=== PATIENT | female | born 1945 | race Caucasian/White ===

== ENCOUNTER 2019-11-02 09:53 | Inpatient (IN) | payer MEDICARE, BC, SELFPAY ==
[2019-11-02] VITALS (14 sets, daily range): BP systolic 100–147; BP diastolic 41–55; PULSE 55–80; RESP 13–20; TEMP 36.6–38.6; O2SAT 95–99; BMI 30.2
--- NOTE | ~2019-11-02 | XR_ITS ---
EXAMINATION: XR chest 2V DATE: 11/02/2019 10:17 INDICATION: Chest pain and shortness of breath TECHNIQUE: frontal and lateral views of the chest were obtained. COMPARISON: Chest radiograph dated 01/06/2019 FINDINGS: Lungs remain clear with no new airspace opacities, pulmonary edema, pleural effusion or pneumothorax. Air-fluid level within a moderate-sized hiatal hernia. Cardiomegaly. Calcified right hilar lymph nod es consistent with old granulomatous disease. Atherosclerotic aorta. Postoperative change of prior di stal left clavicle resection and right rotator cuff repair. IMPRESSION: 1. No acute cardiopulmonary disease. 2. Moderate-sized hiatal hernia. Reviewed, dictated and finalized at location [facility] RN
--- NOTE | ~2019-11-02 | CT_ITS ---
EXAMINATION: CTA chest PE protocol EXAM DATE: 11/02/2019 12:20 INDICATION: Elevated d-dimer. Mid chest pain. TECHNIQUE: Spiral CTA of the chest (pulmonary arteries) was performed with 100 cc Omnipaque 350 intr avenous contrast injection. Images were acquired during the pulmonary arterial phase. Coronal maxi mum intensity projection 3D-reconstructions were created by the technologist on dedicated workstation . Axial, coronal and sagittal reformatted images were reviewed. The dose-length product (DLP) for t his examination was 386.14 mGy-cm. The exposure was tailored according to patient size (auto mA exp osure control), and iterative reconstruction (ASIR) was used as additional dose reduction technique. Comparison is made to prior examination from 08/13/2017. FINDINGS: Pulmonary arteries are well opacified and without intraluminal filling defects. No thora cic aortic dissection. There is moderate amount of right-sided perihilar groundglass airspace diseas e, pneumonia or edema. Clinical correlation. There are no pleural or pericardial effusions. Trache obronchial tree is patent. There is no mediastinal, hilar or axillary lymphadenopathy. There is n o pneumothorax. There is cardiomegaly. There is mild coronary arterial calcification, arterial scl erosis. Fluid density lesion consistent with cyst in the right liver lobe measuring 3 cm unchanged. Cholecystectomy clips. There is moderate sliding gastroesophageal hiatal hernia. There is mild thora cic spondylosis without osteoblastic or osteolytic lesions identified. IMPRESSION: 1. No pulmonary emboli. 2. Moderate amount of right perihilar groundglass density airspace disease likely pneumonia or edema . Clinical correlation. 3. Cardiomegaly. 4. Moderate hiatal hernia. Reviewed, dictated and finalized at location A. [facility] IMPRESSION: 1. No pulmonary emboli. 2. Moderate amount of right perihilar groundglass density airspace disease lik al pneumonia or edema. Clinical correlation. 3. Cardiomegaly. 4. Moderate hiatal hernia.
--- NOTE | 2019-11-02 09:54 | ECG_ITS ---
Measurements Intervals [place] Rate: 76 P: 58 CT: 165 QRS: -26 QRSD: 98 T: 59 QT: 366 QTc: 413 Interpretive Statements SINUS RHYTHM DELAYED PRECORDIAL R/S TRANSITION LEFT VENTRICULAR HYPERTROPHY AND ST-T CHANGE BASELINE ARTIFACT- I, II, III, AVR, AVL, AVF BORDERLINE ECG Electronically Signed On 11-02-2019 10:02:30 PATHOLOGY TECH by Jasvir Steele D.O.
[2019-11-02 10:13] LABS: Basophils Absolute Auto 0.1 K/mm3 (0.0-0.1); Basophils Percent Auto 0.4 % (0.2-1.2); Eosinophils Absolute Auto 0.1 K/mm3 (0-0.3); Eosinophils Percent Auto 0.6 % (0-4.4); Hematocrit 36.4 % (37.0-47.0); Hemoglobin 12.1 g/dL (12.0-15.0); Immature Granulocyte Absolute 0.09 K/mm3 (0.00-0.031); Immature Granulocyte Percent A 0.4 % (0-0.5); Lymphocytes Absolute Auto 4.11 K/mm3 (0.9-3.2); Lymphocytes Percent Auto 19.8 % (18.3-44.2); Mean Corpuscular HGB Conc 33.2 g/dl (32-36); Mean Corpuscular Volume 90.3 fl (80-100); Mean Platelet Volume 9.2 fl (7.4-10.4); Monocytes Absolute Auto 0.6 K/mm3 (0.1-0.6); Monocytes Percent Auto 3.1 % (2.6-8.5); Neutrophils Absolute Auto 15.7 K/mm3 (1.3-6.7); Neutrophils Percent Auto 75.7 % (45.5-73.1); Platelet Count Result 318 k/mm3 (150-375); Red Blood Count 4.03 M/mm3 (4.2-5.4); Red Cell Distribution Width 12.5 % (11.5-14.5); White Blood Count 20.8 K/mm3 (4.5-10.0)
[2019-11-02 10:23] LABS: INR 0.9; Prothrombin Time 12.1 Seconds (11.1-14.7)
[2019-11-02 10:24] LABS: Partial Thromboplastin Time 24.3 SECONDS (22.3-36.8)
--- NOTE | 2019-11-02 10:28 | ED.CHESTPAIN ---
HPI - Chest Pain General Chief Complaint: Chest Pain Stated Complaint: Chest Pain Time Seen by Provider: 11/02/19 10:20 Source: patient and RN notes reviewed Mode of arrival: EMS Limitations: no limitations History of Present Illness HPI narrative: Pt is a 74 y/o female who presents to the ED, via EMS, with c/o 4/10 constant substernal chest pain that began this morning. Pt describes her pain as tight and heavy. Pt denies her pain radiating to another location. She states that her friends noticed the pt looked pale today. Pt took ASA 324 mg [employer]. Pt received NTG by EMS en route to the ED. Pt states the NTG minimally relieved her pain. Pt reports a similar pain when she had to have heart surgery by Dr. Peng in June 2019. Pt also reports nausea and vomiting, but denies a sore throat and a cough. Pt is taking Plavix and ASA 81 mg daily. MD complaint: chest pain Pertinent past history: asthma Onset (ago): hour(s) Timing of current episode: constant Prior episodes: Yes Pain location: substernal Pain radiation: none Severity: mild Pain scale (0-10): 4 Quality: tightness and heaviness Relieving factors: nitroglycerin (minimally) Exacerbating factors: nothing Associated symptoms: nausea and vomiting Treatment prior to arrival: aspirin (324) and nitroglycerin (by EMS) Related Data Home Medications Medication Instructions Recorded Confirmed aspirin 81 mg tablet,delayed 81 mg PO DAILY 07/29/19 11/02/19 release atorvastatin 40 mg tablet 40 mg PO DAILY 07/29/19 11/02/19 clopidogrel 75 mg tablet 75 mg PO DAILY 07/29/19 11/02/19 folic acid 1 mg tablet 1 mg PO TID 07/29/19 11/02/19 lancets #50 each 07/29/19 11/02/19 levothyroxine 88 mcg tablet 88 mcg PO DAILY 07/29/19 11/02/19 meclizine 25 mg tablet 25 mg PO TID PRN 07/29/19 11/02/19 montelukast 10 mg tablet 10 mg PO HS 07/29/19 11/02/19 nitroglycerin 0.4 mg sublingual 0.4 mg SUBLINGUAL Q5M PRN 07/29/19 11/02/19 tablet oxycodone-acetaminophen 10 mg-325 1 tablet PO Q6H PRN 07/29/19 11/02/19 mg tablet ranitidine HCl 75 mg tablet 75 mg PO BID tablet 07/29/19 11/02/19 valsartan 320 mg tablet 320 mg PO DAILY 07/29/19 11/02/19 esomeprazole magnesium 20 mg PO BID 11/02/19 11/02/19 nebivolol [Bystolic] 20 mg PO BID 11/02/19 11/02/19 spironolactone 12.5 mg PO DAILY 11/02/19 11/02/19 Allergies Allergy/AdvReac Type Severity Reaction Status Date / Time No Known Allergies Allergy Unverified 09/29/18 02:28 Review of Systems Review of Systems: All systems reviewed & are unremarkable except as noted in HPI and below ENT: Denies sore throat Cardiovascular: Cardiovascular: Reports chest pain (substernal) Respiratory: Respiratory: Denies cough Gastrointestinal: Gastrointestinal: Reports nausea and Reports vomiting PMFSH Past Medical History Medical History (Updated 11/02/19 @ 18:31 by Yvonne Tejada MD) Anemia Anxiety Asthma Bronchitis Cataracts, bilateral Degenerative joint disease involving multiple joints Depression Diabetic ulcer of right great toe Gallbladder disease GERD without esophagitis Hiatal hernia History of angina HTN (hypertension) Hyperlipidemia Hypothyroid IBS (irritable bowel syndrome) Peripheral neuropathy Rheumatoid arthritis Rhinosinusitis Seasonal allergies Sleep apnea Type 2 diabetes mellitus without complications Ulcer Uterine fibroid Surgical History Surgical History (Updated 11/02/19 @ 11:21 by Natasha Gtz) H/O foot surgery right H/O heart surgery 07/03 History of cardiac catheterization History of hysterectomy Hx of appendectomy Hx of cataract removal with insertion of prosthetic lens Hx of cholecystectomy Hx of endoscopy upper Hx of shoulder surgery bilateral Family History Family History (Updated 08/26/17 @ 10:55 by DOCTOR UNKNOWN) Grandparent Diabetes mellitus Father Acute myocardial infarction Other Family history of cardiovascular disease Family history of malignant neoplasm of brain
[2019-11-02 10:34] LABS: Blood Urea Nitrogen 19 mg/dL (7-17); Calcium 9.3 mg/dL (8.4-10.2); Carbon Dioxide 23 mmol/L (22-30); Chloride 94 mmol/L (98-107); Estimated Glomerular Filt Rate > 60; Glucose 136 mg/dL (65-105); Potassium 4.5 mmol/L (3.4-5.0); Sodium 130 mmol/L (137-145)
[2019-11-02 10:46] LABS: Troponin I < 0.012 ng/mL (0.000-0.034)
[2019-11-02 10:48] LABS: Alanine Aminotransferase 18 U/L (4-35); Albumin Level 4.1 g/dL (3.5-5.1); Alkaline Phosphatase 107 U/L (38-126); Aspartate Amino Transferase 30 U/L (14-36); Bilirubin,Total 1.3 mg/dL (0.2-1.3); Lipase 37 U/L (23-300)
[2019-11-02] MEDS: ONDANSETRON INJ 4 MG/2 ML VIAL IV PUSH (11:16)
[2019-11-02 11:25] LABS: D Dimer 1.96 ug/mL (<0.48)
[2019-11-02 11:59] LABS: Lactic Acid Reflex 1.9 mmol/L (0.7-2.1)
[2019-11-02 13:11] LABS: Add Urine Microscopic? NO; Appearance Urine Clear (Clear); Bilirubin Urine Negative (Negative); Blood Urine Negative (Negative); Color Urine Yellow (Yellow); Glucose Urine UA Negative (Negative); Ketones Urine Negative (Negative); Leukocyte Esterase Ur Negative LEU/UL (Negative); Nitrate Urine Negative (Negative); Protein Urine Negative (Negative); Urobilinogen Urine Negative mg/dL (<2.0)
[2019-11-02 13:14] LABS: Specific Grav Ur 1.044 (1.001-1.035)
[2019-11-02 13:31] LABS: Troponin I 0.379 ng/mL (0.000-0.034)
[2019-11-02] MEDS: ENOXAPARIN 80 MG/0.8 ML SYRINGE 65 MG SUB-Q (14:16)
--- NOTE | 2019-11-02 15:33 | ADMGEN ---
This patient, Aracely Spear, was admitted to IMU Room 213-01. Patient/family oriented to hospital policies and general routines including ID bracelet, bed and alarms, visiting hours, pain management, procedures, bathroom and other care routines, personal items, smoking policy, room service/diet, and visiting hours. Valuables list has been completed. Information on how to activate the Rapid Response Team has been discussed. Patient/Family are encouraged to report perceived risks to care and to ask questions if they do not understand what they are told or what they should do.
[2019-11-02 16:18] LABS: Glucose Point of Care 173 (65-105)
[2019-11-02 17:18] LABS: Troponin I 0.486 ng/mL (0.000-0.034)
--- NOTE | 2019-11-02 18:15 | WPDCN ---
Assessment and Plan Assessment and plan (1) Chest pain: Code(s): R07.9 - Chest pain, unspecified Status: Acute Assessment and Plan: Patient was admitted with chest pain nausea and vomiting. I suspect this is all a viral gastroenteritis rather than ACS. She is feeling well now, and able to eat her dinner. Although the patient has coronary disease and elevated troponins, her coronary arteries were all patent by catheterization in 01/2018, and her EKG does not show any acute ischemic changes. She does have an elevated white count and CT scan suggested she may have a right-sided pneumonia although certainly this is an atypical pneumonia. Temperature this morning was 101.5. Repeat EKG and troponin in the morning and follow. (2) Elevated troponin: Code(s): R79.89 - Other specified abnormal findings of blood chemistry Status: Acute Assessment and Plan: Perhaps nonspecific, doubt ACS. (3) Nausea and vomiting: Qualifiers: Vomiting Intractability: non-intractable Vomiting type: unspecified Qualified Code(s): R11.2 - Nausea with vomiting, unspecified Code(s): R11.2 - Nausea with vomiting, unspecified Status: Acute Assessment and Plan: Possible viral gastroenteritis, or a manifestation of her pneumonia? (4) CAD (coronary artery disease): Code(s): I25.10 - Atherosclerotic heart disease of [place] coronary artery without angina pectoris Status: Acute (5) Hiatal hernia: Code(s): K44.9 - Diaphragmatic hernia without obstruction or gangrene Status: Acute Assessment and Plan: Also complaining of typical heartburn this evening so I resumed her GERD medicines. (6) HTN (hypertension): Code(s): I10 - Essential (primary) hypertension Status: Acute Assessment and Plan: Resumed her BP meds. HPI Data of Consult Date/Time: 11/02/19 18:15 Requesting Physician: Jayce Ram MD Primary Care Provider: Alona Jones MD Consult Narrative Narrative: Date of service: 11/02/2019 Aracely Spear is a 74 year old female whom we were asked to see at the request of Dr. Case for advice and opinion regarding her chest discomfort and elevated troponins in consultation. She has a history of CAD and is followed by Dr. Pedraza in our office. The patient states that yesterday she just did not feel good, she was feeling bad, but nothing specific. Her friends thought she looked pale off and on but that has been going on for a couple of years. Today she also felt bad and around 8:00 a.m. started having pain and hurting in her chest which is described as a heavy midsubsternal and right parasternal chest pain. She followed with nausea and vomiting 3 or 4 times, no hematemesis. She called an ambulance and was given nitroglycerin with possible improvement. Since arrival she has received Zofran, acetaminope=hen for her fever of 101.5, and IV fluids. The nausea and vomiting, and chest discomfort, has resolved. She is feeling better and was able to eat dinner. She denies any coughing, but she thought she might have a fever as she felt hot and cold. She is having some a pinching type chest pains lasting for a second off on this afternoon. In December 2017 she had a balloon angioplasty of a diagonal by Dr. Pedraza. The catheterization was repeated in June 2019 which showed all coronaries were patent. She has a history of hypertension diabetes and hyperlipidemia. Review of Systems Constitutional: Constitutional: Reports chills, Reports lethargy and Reports weakness ENT: Denies epistaxis Cardiovascular: Cardiovascular: Reports chest pain, Denies leg edema and Denies palpitations Respiratory: Respiratory: Denies chest congestion, Denies hemoptysis, Reports
[2019-11-02] MEDS: PANTOPRAZOLE SODIUM IV 40 MG VIAL IV PUSH (18:46)
[2019-11-02 19:22] LABS: Glucose Point of Care 114 (65-105)
[2019-11-02 20:47] LABS: Glucose Point of Care 181 (65-105)
--- NOTE | 2019-11-02 20:57 | PM.IMHP ---
H&P: HPI History of Present Illness Chief complaint: Pneumonia/Nausea/Vomiting/Chest Pain Narrative: Aracely Spear is a 74 year old female who has had 2 episodes last year where she had some chest pain. She had a cardiac catheterization back in January and said that she has some blockages but there is also some type of tear and then they repeated it she believes and June and said that the the tear was healed. She stated that she has some blockage just but they were not stented. She stated they were not able to be stented at that time. The patient had been vomiting today. She complained of chest pain 4/10 that started this morning. She said it was tight and heavy. Did not radiate to any other location. She said she felt like she had a fever but then also had chills. Patient had been vomiting and thought that maybe she was having a heart attack because her friend vomit when she had a heart attack as well. She states that she never vomited today she vomited. She does not recall aspirating at all. She has been coughing for about 3 weeks and she has been having some severe postnasal drainage as well. Troponin 0.379 for the 1st reading and 0.486 for the 2nd troponin. Patient no longer has any chest pain. She was seen by Cardiology. Her blood sugars were 173, 114, and 181. EKG was read as sinus rhythm. Delayed precordial R/S transition. Left ventricular hypertrophy and ST changes. Patient has chronic back pain and she goes to pain clinic and she was Percocet in the emergency room. She was given a the mycin Rocephin and Flagyl in the emergency room and aches as well. Date of service 11/02/2019 Review of Systems Review of Systems: Narrative: Patient felt like her forehead was hot but then she also felt like she had chills. She was found to be negative for the influenza in the emergency room. Patient was having a lot of sinus pressure and sinus drainage and postnasal drainage. Headache as well All systems reviewed & are unremarkable except as noted in HPI and below Constitutional: Constitutional: Reports as per HPI and Reports no additional constitutional complaints Eyes: Eyes: Reports as per HPI and Reports no additional eye complaints ENT: Reports system reviewed and no additional complaints, except as documented and Reports Normal hearing present Cardiovascular: Cardiovascular: Reports no additional cardiovascular complaints Respiratory: Respiratory: Reports no additional respiratory complaints and Reports no additional respiratory complaints Gastrointestinal: Gastrointestinal: Reports as per HPI and Reports no additional gastrointestinal complaints Musculoskeletal: Musculoskeletal: Reports no additional musculoskeletal complaints Integumentary/Breasts: Skin/Breast: Reports system reviewed and no additional complaints, except as docu and Reports as per HPI Neurologic: Reports system reviewed and no additional complaints, except as documented, Reports as per HPI and Reports Normal hearing present Psychiatric: Psychiatric: Reports no additional psychiatric complaints and Reports as per HPI Endocrine: Endocrine: Reports no additional endocrine complaints Hematologic/Lymphatic: Hematologic/Lymphatic: Reports no additional hematologic/lymphatic complaints Allergic/Immunologic: Allergic/Immunologic: Reports no additional allergic/immunologic complaints [facility] Past Medical History Medical History (Updated 11/02/19 @ 21:07 by Juany Aguilera NP) Anemia Anxiety Asthma Bronchitis CAD (coronary artery disease) Angioplasty of a diagonal lesion 01/2018 Cardiac catheterization 06/2019 showed patent coronary arteries Cataracts, bilateral Degenerative joint disease involving multiple joints Depression Diabetic ulcer of right great toe Gallbladder disease GERD without esophagitis Hiatal hernia History of angina HTN (hypertension) Hyperlipidemia Hypothyroid IBS (irritable bowel syndrome) Peripheral neuropathy Rheumatoid arthritis
[2019-11-02] MEDS: LACTATED RINGERS 1,000 ML 100 ML IV CONT (21:34)
[2019-11-02] MEDS: MONTELUKAST SODIUM 10 MG TABLET PO (21:36)
[2019-11-02] MEDS: FOLIC ACID 1 MG TABLET PO (21:38)
[2019-11-03] VITALS (17 sets, daily range): BP systolic 139–177; BP diastolic 51–61; PULSE 60–90; RESP 16–20; TEMP 36.3–36.7; O2SAT 98–99
[2019-11-03] MEDS: metroNIDAZOLE 500 MG/ISO 100ML 500 MG/100 ML BAG 100 MG IVPB ×5 (00:28→23:57)
[2019-11-03] MEDS: IPRATROPIUM BR 0.02% INH SOLN 0.5 MG/2.5 ML VIAL INHALATION ×2 (02:33→15:30)
[2019-11-03 04:50] LABS: Basophils Percent Auto 0.3 % (0.2-1.2); Eosinophils Absolute Auto 0.1 K/mm3 (0-0.3); Eosinophils Percent Auto 0.6 % (0-4.4); Hematocrit 30.9 % (37.0-47.0); Hemoglobin 10.6 g/dL (12.0-15.0); Immature Granulocyte Absolute 0.08 K/mm3 (0.00-0.031); Immature Granulocyte Percent A 0.5 % (0-0.5); Lymphocytes Absolute Auto 3.57 K/mm3 (0.9-3.2); Lymphocytes Percent Auto 22.6 % (18.3-44.2); Mean Corpuscular HGB Conc 34.3 g/dl (32-36); Mean Corpuscular Hemoglobin 30.5 pg (26-34); Mean Corpuscular Volume 88.8 fl (80-100); Mean Platelet Volume 9.7 fl (7.4-10.4); Monocytes Absolute Auto 0.7 K/mm3 (0.1-0.6); Monocytes Percent Auto 4.4 % (2.6-8.5); Neutrophils Absolute Auto 11.4 K/mm3 (1.3-6.7); Neutrophils Percent Auto 71.6 % (45.5-73.1); Platelet Count Result 270 k/mm3 (150-375); Red Blood Count 3.48 M/mm3 (4.2-5.4); Red Cell Distribution Width 12.5 % (11.5-14.5); White Blood Count 15.8 K/mm3 (4.5-10.0)
[2019-11-03 05:10] LABS: Hemoglobin A1C 7.2 % (<5.7)
[2019-11-03 05:38] LABS: Alanine Aminotransferase 15 U/L (4-35); Albumin Level 3.4 g/dL (3.5-5.1); Alkaline Phosphatase 83 U/L (38-126); Aspartate Amino Transferase 21 U/L (14-36); Bilirubin,Total 1.7 mg/dL (0.2-1.3); Blood Urea Nitrogen 13 mg/dL (7-17); Calcium 8.7 mg/dL (8.4-10.2); Carbon Dioxide 23 mmol/L (22-30); Chloride 90 mmol/L (98-107); Estimated Glomerular Filt Rate > 60; Glucose 121 mg/dL (65-105); Potassium 3.7 mmol/L (3.4-5.0); Sodium 128 mmol/L (137-145); Troponin I 0.225 ng/mL (0.000-0.034)
[2019-11-03] MEDS: FOLIC ACID 1 MG TABLET PO ×3 (06:09→21:14)
[2019-11-03] MEDS: LEVOTHYROXINE SODIUM 88 MCG TABLET PO (06:09)
--- NOTE | 2019-11-03 07:00 | ECG_ITS ---
Measurements Intervals [place] Rate: 68 P: 24 MN: 149 QRS: -25 QRSD: 83 T: 1 QT: 429 QTc: 457 Interpretive Statements SINUS RHYTHM DELAYED PRECORDIAL R/S TRANSITION VOLTAGE CRITERIA FOR LVH MINIMAL Q WAVES- LATERAL LEADS BORDERLINE T WAVE ABNORMALITY- INFERIOR LEADS BASELINE ARTIFACT- I, II, III, AVR, AVL, AVF, V5 BORDERLINE ECG Electronically Signed On 11-03-2019 8:14:10 LABEL CUTTER by Jasvir Steele D.O.
[2019-11-03 07:55] LABS: Glucose Point of Care 122 (65-105)
[2019-11-03] MEDS: PANTOPRAZOLE SODIUM IV 40 MG VIAL IV PUSH (09:25)
[2019-11-03] MEDS: ONDANSETRON INJ 4 MG/2 ML VIAL IV PUSH ×2 (10:08→18:07)
--- NOTE | 2019-11-03 11:32 | PM.IMPN ---
Progress Note: A&P Assessment and Plan (1) Pneumonia: Qualifiers: Laterality: right Lung location: lower lobe of lung Pneumonia type: due to unspecified organism Qualified Code(s): J18.9 - Pneumonia, unspecified organism Code(s): J18.9 - Pneumonia, unspecified organism Status: Acute Assessment and Plan: The patient was started on azithromycin and Rocephin for community-acquired pneumonia. Patient was also started on Flagyl incase of aspiration. Wcc is 15.8, cultures are pending. Continue to treat with iV abx and breathing treatments, CT shows -1. Moderate amount of right perihilar groundglass density airspace disease likely pneumonia or edema. Clinical correlation. 3. Cardiomegaly. 4. Moderate hiatal hernia. (2) Elevated troponin: Code(s): R79.89 - Other specified abnormal findings of blood chemistry Status: Acute Assessment and Plan: Seen by cardiology Not likley to be cardiac related (3) HTN (hypertension): Qualifiers: Hypertension type: essential hypertension Qualified Code(s): I10 - Essential (primary) hypertension Code(s): I10 - Essential (primary) hypertension Status: Acute Assessment and Plan: Continue pts home Bps medications as before (4) Anxiety: Code(s): F41.9 - Anxiety disorder, unspecified Status: Chronic Assessment and Plan: BuSpar started. (5) Hyperlipidemia: Code(s): E78.5 - Hyperlipidemia, unspecified Status: Chronic Assessment and Plan: Continue with Zetia. (6) Hypothyroid: Code(s): E03.9 - Hypothyroidism, unspecified Status: Chronic Assessment and Plan: Continue with levothyroxine. (7) Type 2 diabetes mellitus without complications: Code(s): E11.9 - Type 2 diabetes mellitus without complications Status: Acute Assessment and Plan: Her last A1c was 6.3. Will do sliding scale insulin. DM controlled diet. (8) Nausea and vomiting: Qualifiers: Vomiting Intractability: non-intractable Vomiting type: unspecified Qualified Code(s): R11.2 - Nausea with vomiting, unspecified Code(s): R11.2 - Nausea with vomiting, unspecified Status: Acute Assessment and Plan: Zofran and Protonix. (9) Chest pain: Qualifiers: Chest pain type: other chest pain Qualified Code(s): R07.89 - Other chest pain Code(s): R07.9 - Chest pain, unspecified Status: Acute Assessment and Plan: Slight bump in troponin. No further complaints of discomfort. Subjective Date/time seen: 11/03/19 11:32 Interval history: 74 year old female who has had 2 episodes last year where she had some chest pain. She had a cardiac catheterization back in January and said that she has some blockages but there is also some type of tear and then they repeated it she believes and June and said that the the tear was healed. Pt having bad cough and bad nausea today. Admitted with CAP has a history of HTN, anxiety, ulcer, asthma and CAD Review of Systems Review of Systems: All systems reviewed & are unremarkable except as noted in HPI and below Cardiovascular: Cardiovascular: Denies chest pain and Denies chest pain at rest Respiratory: Respiratory: Reports chest congestion, Reports cough, Reports dyspnea and Reports wheezing Gastrointestinal: Gastrointestinal: Reports nausea Exam Narrative: Exam Narrative: Ill appearing coughing nauseated Chest: Chest palpation & inspection: normal inspection of the chest Resp: Effort & Inspection: normal respiratory effort Auscultation: clear to auscultation bilaterally Percussion: percussion normal Cardio: Palpation: normal PMI Rate: regular rate Rhythm: regular rhythm Heart sounds: S1 normal heart sound present and S2 normal heart sound present Peripheral pulses: Peripheral pulses 2+ throughout GI: Inspection: normal to inspection Auscultation: normal bowel sounds Rectal Exam:
[2019-11-03] MEDS: ASPIRIN 81 MG ENTERIC TABLET PO (11:41)
[2019-11-03] MEDS: CLOPIDOGREL BISULFATE 75 MG TABLET PO (11:41)
[2019-11-03] MEDS: hydrALAZINE HCL 50 MG TABLET PO ×3 (11:41→21:14)
[2019-11-03] MEDS: ATORVASTATIN 40 MG TABLET PO (11:41)
[2019-11-03] MEDS: EZETIMIBE 10 MG TABLET PO (11:41)
[2019-11-03] MEDS: NEBIVOLOL HCL 5 MG TABLET 10 MG PO ×2 (11:41→21:14)
[2019-11-03 12:05] LABS: Glucose Point of Care 183 (65-105)
--- NOTE | 2019-11-03 12:17 | PM.PNCARD ---
Progress Note: A&P Assessment and Plan (1) Chest pain: Qualifiers: Chest pain type: other chest pain Qualified Code(s): R07.89 - Other chest pain Code(s): R07.9 - Chest pain, unspecified Status: Acute Assessment and Plan: Admitted with chest pain nausea and vomiting. suspect this is all a viral gastroenteritis rather than ACS. No further chest pain Dry heaves this morning. No appetite at present She has a history of coronary disease and mildly elevated troponins, her coronary arteries were all patent by catheterization in 01/2018, and her EKG does not show any acute ischemic changes. She does have an elevated white count and CT scan suggested she may have a right-sided pneumonia although certainly this is an atypical pneumonia. Repeat troponin this morning 0.225 (peak 0.486) EKGs personally reviewed with Dr Mckinney this morning with no acute changes. Continue aspirin, atorvastatin, clopidogrel, Zetia, Bystolic and hydralazine. (2) Elevated troponin: Code(s): R79.89 - Other specified abnormal findings of blood chemistry Status: Acute Assessment and Plan: Mild and nonspecific, doubt ACS. (3) Nausea and vomiting: Qualifiers: Vomiting Intractability: non-intractable Vomiting type: unspecified Qualified Code(s): R11.2 - Nausea with vomiting, unspecified Code(s): R11.2 - Nausea with vomiting, unspecified Status: Acute Assessment and Plan: Possible viral gastroenteritis, or a manifestation of her pneumonia? Management per hospitalist (4) CAD (coronary artery disease): Qualifiers: Coronary Disease-Associated Artery/Lesion type: [place] artery [place] vs. transplanted heart: [place] heart Associated angina: without angina Qualified Code(s): I25.10 - Atherosclerotic heart disease of [place] coronary artery without angina pectoris Code(s): I25.10 - Atherosclerotic heart disease of [place] coronary artery without angina pectoris Status: Acute Assessment and Plan: As above (5) Hiatal hernia: Code(s): K44.9 - Diaphragmatic hernia without obstruction or gangrene Status: Acute Assessment and Plan: Also complaining of typical heartburn. GERD medicines resumed. (6) HTN (hypertension): Qualifiers: Hypertension type: essential hypertension Qualified Code(s): I10 - Essential (primary) hypertension Code(s): I10 - Essential (primary) hypertension Status: Acute Assessment and Plan: Blood pressure elevated this morning. Was much softer yesterday afternoon. Continue to monitor. Additional Plan No further cardiac recommendations. Cardiology will see her as needed. Please do not hesitate call May transfer from [facility]. Plan discussed Dr Mckinney 1230 11/03/2019 Time Spent With Patient Time with patient: less than 15 minutes Subjective Date/time seen: 11/03/19 12:17 Interval history: Follow-up for: Chest pain, mild elevation in troponin, history coronary artery disease, hypertension nausea/vomiting Date of service: 11/03/2019 Subjective: Dry heaves this morning. Significant pain in left hip. Did not sleep all night. Denied chest discomfort, shortness of breath, lightheadedness or palpitations. Review of Systems Constitutional: Constitutional: Reports lethargy and Reports weakness ENT: Reports Normal hearing present and Denies epistaxis Cardiovascular: Cardiovascular: Denies chest pain, Denies leg edema, Denies palpitations and Reports dyspnea on exertion (Chronic ) Respiratory: Respiratory: Denies chest congestion, Denies hemoptysis, Reports dyspnea on exertion (Chronic ) and Denies wheezing Gastrointestinal: Gastrointestinal: Reports heartburn, Reports nausea an
[2019-11-03] MEDS: busPIRone HCL 10 MG TABLET PO ×2 (12:53→21:14)
[2019-11-03] MEDS: LACTATED RINGERS 1,000 ML 100 ML IV CONT (15:07)
--- NOTE | 2019-11-03 15:10 | PC.NURSE ---
This patient, Aracely Spear, was transferred to [[id number]] on 11/03/19 at 1510. Personal belongings sent with patient. Belongings list checked and signed with receiving [ ]. Report given to [Cathleen RN]. Appropriate documentation sent with patient.
--- NOTE | 2019-11-03 15:13 | PC.NURSE ---
This patient, Aracely Spear, was received from [[id number]/ ] on 11/03/19 at 1513. Personal belongings list checked and signed. Patient/family oriented to unit policies and routines
[2019-11-03] MEDS: MECLIZINE HCL 25 MG TABLET PO (15:18)
[2019-11-03] MEDS: NEBIVOLOL HCL 5 MG TABLET 20 MG PO (17:59)
[2019-11-03 19:00] LABS: Glucose Point of Care 171 (65-105)
[2019-11-03 21:05] LABS: Glucose Point of Care 159 (65-105)
[2019-11-03] MEDS: MONTELUKAST SODIUM 10 MG TABLET PO (21:14)
[2019-11-03] MEDS: SODIUM CHLORIDE 0.9% IV 1,000 ML 100 ML IV CONT (23:57)
[2019-11-04] VITALS (14 sets, daily range): BP systolic 119–163; BP diastolic 48–52; PULSE 62–82; RESP 16–20; TEMP 35.9–36.8; O2SAT 97–99
[2019-11-04 05:58] LABS: Hematocrit 30.8 % (37.0-47.0); Hemoglobin 10.6 g/dL (12.0-15.0); Mean Corpuscular HGB Conc 34.4 g/dl (32-36); Mean Corpuscular Hemoglobin 29.9 pg (26-34); Mean Corpuscular Volume 86.8 fl (80-100); Mean Platelet Volume 9.6 fl (7.4-10.4); Platelet Count Result 262 k/mm3 (150-375); Red Blood Count 3.55 M/mm3 (4.2-5.4); Red Cell Distribution Width 11.9 % (11.5-14.5); White Blood Count 11.5 K/mm3 (4.5-10.0)
[2019-11-04] MEDS: LEVOTHYROXINE SODIUM 88 MCG TABLET PO (06:04)
[2019-11-04] MEDS: busPIRone HCL 10 MG TABLET PO ×3 (06:04→20:11)
[2019-11-04] MEDS: metroNIDAZOLE 500 MG/ISO 100ML 500 MG/100 ML BAG 100 MG IVPB ×4 (06:04→23:26)
[2019-11-04] MEDS: FOLIC ACID 1 MG TABLET PO ×3 (06:04→20:11)
[2019-11-04 06:52] LABS: Blood Urea Nitrogen 7 mg/dL (7-17); Calcium 8.6 mg/dL (8.4-10.2); Carbon Dioxide 24 mmol/L (22-30); Chloride 91 mmol/L (98-107); Estimated Glomerular Filt Rate > 60; Glucose 104 mg/dL (65-105); Potassium 3.6 mmol/L (3.4-5.0); Sodium 128 mmol/L (137-145)
--- NOTE | 2019-11-04 07:12 | WPDCDIQUERY2 ---
CDI Query Clarification Request - 11/02 Na- 130 - 11/03 Na- 128 - 11/04 Na- 128 Please clarify on problem list if there is a corresponding diagnosis for above findings.
[2019-11-04] MEDS: IPRATROPIUM BR 0.02% INH SOLN 0.5 MG/2.5 ML VIAL INHALATION ×4 (08:26→20:05)
[2019-11-04] MEDS: hydrALAZINE HCL 50 MG TABLET PO ×4 (09:29→20:11)
[2019-11-04] MEDS: AMLODIPINE BESYLATE 5 MG TABLET 10 MG PO (09:29)
[2019-11-04] MEDS: VALSARTAN 160 MG TABLET 320 MG PO (09:29)
[2019-11-04] MEDS: ASPIRIN 81 MG ENTERIC TABLET PO (09:29)
[2019-11-04] MEDS: ATORVASTATIN 40 MG TABLET PO (09:29)
[2019-11-04] MEDS: EZETIMIBE 10 MG TABLET PO (09:29)
[2019-11-04] MEDS: CLOPIDOGREL BISULFATE 75 MG TABLET PO (09:29)
[2019-11-04] MEDS: SPIRONOLACTONE 12.5 MG TABLET PO (09:29)
[2019-11-04] MEDS: NEBIVOLOL HCL 5 MG TABLET 10 MG PO (09:30)
[2019-11-04] MEDS: NEBIVOLOL HCL 5 MG TABLET 20 MG PO ×2 (09:31→17:11)
[2019-11-04] MEDS: ONDANSETRON INJ 4 MG/2 ML VIAL IV PUSH (09:38)
--- NOTE | 2019-11-04 09:40 | PC.NURSE ---
Called pharmacy and requested 0900 dose of protonix be sent to floor for administration.
[2019-11-04] MEDS: PANTOPRAZOLE SODIUM IV 40 MG VIAL IV PUSH (10:26)
[2019-11-04 10:41] LABS: Glucose Point of Care 138 (65-105)
--- NOTE | 2019-11-04 11:15 | PM.IMPN ---
Progress Note: A&P Assessment and Plan (1) Pneumonia: Qualifiers: Laterality: right Lung location: lower lobe of lung Pneumonia type: due to unspecified organism Qualified Code(s): J18.9 - Pneumonia, unspecified organism Code(s): J18.9 - Pneumonia, unspecified organism Status: Acute Assessment and Plan: The patient was started on azithromycin and Rocephin for community-acquired pneumonia. Patient was also started on Flagyl incase of aspiration. Wcc is 11.5 coming down., Bc are negative to date. Continue to treat with iV abx and breathing treatments, CT shows -1. Moderate amount of right perihilar groundglass density airspace disease likely pneumonia or edema. 3. Cardiomegaly. 4. Moderate hiatal hernia. Hopeful discharge in 1-2 days time (2) Elevated troponin: Code(s): R79.89 - Other specified abnormal findings of blood chemistry Status: Acute Assessment and Plan: Seen by cardiology chest pain not likley to be cardiac related (3) HTN (hypertension): Qualifiers: Hypertension type: essential hypertension Qualified Code(s): I10 - Essential (primary) hypertension Code(s): I10 - Essential (primary) hypertension Status: Acute Assessment and Plan: Continue pts home Bps medications as before (4) Anxiety: Code(s): F41.9 - Anxiety disorder, unspecified Status: Chronic Assessment and Plan: BuSpar started. (5) Hyperlipidemia: Code(s): E78.5 - Hyperlipidemia, unspecified Status: Chronic Assessment and Plan: Continue with Zetia. (6) Hypothyroid: Code(s): E03.9 - Hypothyroidism, unspecified Status: Chronic Assessment and Plan: Continue with levothyroxine. (7) Type 2 diabetes mellitus without complications: Code(s): E11.9 - Type 2 diabetes mellitus without complications Status: Acute Assessment and Plan: Her last A1c was 6.3. Will do sliding scale insulin. DM controlled diet. (8) Nausea and vomiting: Qualifiers: Vomiting Intractability: non-intractable Vomiting type: unspecified Qualified Code(s): R11.2 - Nausea with vomiting, unspecified Code(s): R11.2 - Nausea with vomiting, unspecified Status: Acute Assessment and Plan: Zofran and Protonix. Pt does not feel like eating much today, continue iv fluids for today. History of hiatal hernia, pt usually takes 2 antacid at home. (9) Chest pain: Qualifiers: Chest pain type: other chest pain Qualified Code(s): R07.89 - Other chest pain Code(s): R07.9 - Chest pain, unspecified Status: Acute Assessment and Plan: Slight bump in troponin. Chest pain not cardiac related. Subjective Date/time seen: 11/04/19 11:15 Interval history: 74 year old female who has admitted with 2 episodes of chest pain, pt had a cardiac catheterization back in January. Pt seen by cardiology felt that chest pain is non cardiac, chest pain likely GERD related or pneumonia related. Admitted with CAP has a history of HTN, anxiety, ulcer, asthma and CAD. Pt feels better today, nausea improved, but still feels her appetite is poor. Pt still has a cough and feels tired. Review of Systems Review of Systems: All systems reviewed & are unremarkable except as noted in HPI and below Constitutional: Constitutional: Reports as per HPI and Reports no additional constitutional complaints Eyes: Eyes: Reports as per HPI and Reports no additional eye complaints ENT: Reports system reviewed and no additional complaints, except as documented and Reports Normal hearing present Cardiovascular: Cardiovascular: Reports no additional cardiovascular complaints, Denies chest pain, Denies chest pain at rest and Reports dyspnea Respiratory: Respiratory: Reports chest congestion, Reports cough, Reports dyspnea and Reports wheezing Gastrointestinal: Gastrointestinal: Reports as per HPI, Reports no additional
[2019-11-04] MEDS: INSULIN ASPART (*BKC) 100 UNITS/ML SUB-Q (12:01)
[2019-11-04 12:52] LABS: Glucose Point of Care 216 (65-105)
[2019-11-04] MEDS: SODIUM CHLORIDE 0.9% IV 1,000 ML 100 ML IV CONT (13:29)
[2019-11-04 14:13] LABS: Glucose Point of Care 87 (65-105)
[2019-11-04 18:05] LABS: Glucose Point of Care 110 (65-105)
[2019-11-04] MEDS: MONTELUKAST SODIUM 10 MG TABLET PO (20:11)
[2019-11-04 23:10] LABS: Glucose Point of Care 183 (65-105)
[2019-11-05] VITALS (14 sets, daily range): BP systolic 124–155; BP diastolic 53–76; PULSE 71–89; RESP 13–24; TEMP 36.2–37; O2SAT 97–98
[2019-11-05] MEDS: IPRATROPIUM BR 0.02% INH SOLN 0.5 MG/2.5 ML VIAL INHALATION ×4 (02:15→20:54)
--- NOTE | 2019-11-05 03:53 | PCRCNOTE ---
[facility]
[2019-11-05] MEDS: busPIRone HCL 10 MG TABLET PO ×3 (05:30→21:33)
[2019-11-05] MEDS: metroNIDAZOLE 500 MG/ISO 100ML 500 MG/100 ML BAG 100 MG IVPB ×3 (05:30→23:39)
[2019-11-05] MEDS: FOLIC ACID 1 MG TABLET PO ×3 (05:31→21:33)
[2019-11-05 05:59] LABS: Hematocrit 29.3 % (37.0-47.0); Hemoglobin 10.1 g/dL (12.0-15.0); Mean Corpuscular HGB Conc 34.5 g/dl (32-36); Mean Corpuscular Hemoglobin 30.5 pg (26-34); Mean Corpuscular Volume 88.5 fl (80-100); Mean Platelet Volume 9.5 fl (7.4-10.4); Platelet Count Result 239 k/mm3 (150-375); Red Blood Count 3.31 M/mm3 (4.2-5.4); Red Cell Distribution Width 12.4 % (11.5-14.5); White Blood Count 9.7 K/mm3 (4.5-10.0)
[2019-11-05 06:14] LABS: Blood Urea Nitrogen 8 mg/dL (7-17); Calcium 8.5 mg/dL (8.4-10.2); Carbon Dioxide 23 mmol/L (22-30); Chloride 99 mmol/L (98-107); Estimated Glomerular Filt Rate > 60; Glucose 115 mg/dL (65-105); Potassium 3.5 mmol/L (3.4-5.0); Sodium 131 mmol/L (137-145)
[2019-11-05] MEDS: LEVOTHYROXINE SODIUM 88 MCG TABLET PO (06:34)
[2019-11-05 08:16] LABS: Glucose Point of Care 110 (65-105)
[2019-11-05] MEDS: VALSARTAN 160 MG TABLET 320 MG PO (09:07)
[2019-11-05] MEDS: EZETIMIBE 10 MG TABLET PO (09:07)
[2019-11-05] MEDS: CLOPIDOGREL BISULFATE 75 MG TABLET PO (09:08)
[2019-11-05] MEDS: SPIRONOLACTONE 12.5 MG TABLET PO (09:08)
[2019-11-05] MEDS: ATORVASTATIN 40 MG TABLET PO (09:08)
[2019-11-05] MEDS: hydrALAZINE HCL 50 MG TABLET PO ×4 (09:08→21:32)
[2019-11-05] MEDS: ASPIRIN 81 MG ENTERIC TABLET PO (09:09)
[2019-11-05] MEDS: AMLODIPINE BESYLATE 5 MG TABLET 10 MG PO (09:09)
[2019-11-05] MEDS: NEBIVOLOL HCL 5 MG TABLET 20 MG PO ×2 (11:45→18:06)
[2019-11-05 11:48] LABS: Glucose Point of Care 136 (65-105)
[2019-11-05] MEDS: ONDANSETRON INJ 4 MG/2 ML VIAL IV PUSH (12:01)
[2019-11-05] MEDS: SODIUM CHLORIDE 0.9% IV 1,000 ML 100 ML IV CONT ×2 (14:19→18:06)
--- NOTE | 2019-11-05 15:21 | PM.IMPN ---
Progress Note: A&P Assessment and Plan (1) Pneumonia: Qualifiers: Laterality: right Lung location: lower lobe of lung Pneumonia type: due to unspecified organism Qualified Code(s): J18.9 - Pneumonia, unspecified organism Code(s): J18.9 - Pneumonia, unspecified organism Status: Acute Assessment and Plan: -Continue azithromycin and Rocephin and Flagyl for community-acquired pneumonia and possible aspiration -Wcc is 9.7 trending down coming down., -Bc are negative to date. -Continue to treat with iV abx and breathing treatments, CT shows -1. Moderate amount of right perihilar groundglass density airspace disease likely pneumonia or edema. 3. Cardiomegaly. 4. Moderate hiatal hernia. -Discharge tomorrow (2) Elevated troponin: Code(s): R79.89 - Other specified abnormal findings of blood chemistry Status: Acute Assessment and Plan: Seen by cardiology chest pain not likley to be cardiac related -trended down (3) HTN (hypertension): Qualifiers: Hypertension type: essential hypertension Qualified Code(s): I10 - Essential (primary) hypertension Code(s): I10 - Essential (primary) hypertension Status: Acute Assessment and Plan: Continue pts home Bps medications as before (4) Anxiety: Code(s): F41.9 - Anxiety disorder, unspecified Status: Chronic Assessment and Plan: BuSpar started. (5) Hyperlipidemia: Code(s): E78.5 - Hyperlipidemia, unspecified Status: Chronic Assessment and Plan: Continue with Zetia. (6) Hypothyroid: Code(s): E03.9 - Hypothyroidism, unspecified Status: Chronic Assessment and Plan: Continue with levothyroxine. (7) Type 2 diabetes mellitus without complications: Code(s): E11.9 - Type 2 diabetes mellitus without complications Status: Acute Assessment and Plan: Her last A1c was 6.3. Will do sliding scale insulin. DM controlled diet. Glucose 115 (8) Nausea and vomiting: Qualifiers: Vomiting Intractability: non-intractable Vomiting type: unspecified Qualified Code(s): R11.2 - Nausea with vomiting, unspecified Code(s): R11.2 - Nausea with vomiting, unspecified Status: Acute Assessment and Plan: Zofran and Protonix. -. History of hiatal hernia, pt usually takes 2 antacid at home. (9) Chest pain: Qualifiers: Chest pain type: other chest pain Qualified Code(s): R07.89 - Other chest pain Code(s): R07.9 - Chest pain, unspecified Status: Acute Assessment and Plan: Slight bump in troponin. Chest pain not cardiac related. Subjective Date/time seen: 11/05/19 15:21 patient sitting up in bed in the chair eating her meal this morning during our assessment. Patient denies any chest pains. She does complain of a cough noted that she has a hiatal hernia which causes her to cough. She does not appear to be in any distress at this time. Plan is to discharge patient tomorrow. Patient able to tolerate all meals , slept well and ambulate at baseline. Patient denies SOB, CP, palpitation, extremity numbness, lightheadness, dizziness, constipation, diarrhea, or chills or fever. Review of Systems Review of Systems: All systems reviewed & are unremarkable except as noted in HPI and below Constitutional: Constitutional: Reports as per HPI and Reports no additional constitutional complaints Eyes: Eyes: Reports as per HPI and Reports no additional eye complaints ENT: Reports system reviewed and no additional complaints, except as documented and Reports Normal hearing present Cardiovascular: Cardiovascular: Reports no additional cardiovascular complaints, Denies chest pain, Denies chest pain at rest and Reports dyspnea Respiratory: Respiratory: Reports cough Gastrointestinal: Gastrointestinal: Reports as per HPI, Reports no additional gastrointestinal complaints and Reports nausea Muscu
[2019-11-05 17:41] LABS: Glucose Point of Care 147 (65-105)
[2019-11-05] MEDS: PANTOPRAZOLE SODIUM IV 40 MG VIAL IV PUSH (18:06)
[2019-11-05] MEDS: MONTELUKAST SODIUM 10 MG TABLET PO (21:32)
[2019-11-05 21:56] LABS: Glucose Point of Care 153 (65-105)
[2019-11-06] VITALS (8 sets, daily range): BP systolic 175; BP diastolic 74; PULSE 63–76; RESP 16–22; TEMP 37.1; O2SAT 96
[2019-11-06] MEDS: IPRATROPIUM BR 0.02% INH SOLN 0.5 MG/2.5 ML VIAL INHALATION ×3 (02:30→14:21)
[2019-11-06] MEDS: SODIUM CHLORIDE 0.9% IV 1,000 ML 100 ML IV CONT (04:43)
[2019-11-06] MEDS: CALCIUM CARBONATE (TUMS) 500 MG (200 MG ELEMENTAL) PO ×2 (04:45→11:41)
[2019-11-06 05:55] LABS: Hematocrit 31.4 % (37.0-47.0); Hemoglobin 10.4 g/dL (12.0-15.0); Mean Corpuscular HGB Conc 33.1 g/dl (32-36); Mean Corpuscular Hemoglobin 29.9 pg (26-34); Mean Corpuscular Volume 90.2 fl (80-100); Mean Platelet Volume 9.3 fl (7.4-10.4); Platelet Count Result 278 k/mm3 (150-375); Red Blood Count 3.48 M/mm3 (4.2-5.4); Red Cell Distribution Width 12.7 % (11.5-14.5); White Blood Count 10.5 K/mm3 (4.5-10.0)
[2019-11-06 06:08] LABS: Blood Urea Nitrogen 7 mg/dL (7-17); Calcium 9.1 mg/dL (8.4-10.2); Carbon Dioxide 22 mmol/L (22-30); Chloride 98 mmol/L (98-107); Estimated Glomerular Filt Rate > 60; Glucose 160 mg/dL (65-105); Potassium 3.6 mmol/L (3.4-5.0); Sodium 133 mmol/L (137-145)
[2019-11-06] MEDS: busPIRone HCL 10 MG TABLET PO ×2 (06:10→14:53)
[2019-11-06] MEDS: LEVOTHYROXINE SODIUM 88 MCG TABLET PO (06:10)
[2019-11-06] MEDS: FOLIC ACID 1 MG TABLET PO (06:10)
[2019-11-06] MEDS: metroNIDAZOLE 500 MG/ISO 100ML 500 MG/100 ML BAG 100 MG IVPB (06:10)
[2019-11-06 08:12] LABS: Glucose Point of Care 134 (65-105)
--- NOTE | 2019-11-06 08:33 | PM.DS ---
DS: Diagnosis Admitting Diagnosis Admitting Diagnosis: Chest pain, unspecified Discharge Diagnosis (1) Pneumonia: Qualifiers: Laterality: right Lung location: lower lobe of lung Pneumonia type: due to unspecified organism Qualified Code(s): J18.9 - Pneumonia, unspecified organism Code(s): J18.9 - Pneumonia, unspecified organism Status: Acute Assessment and Plan: -will discharge with azithromycin cefdnir and Flagyl for community-acquired pneumonia and possible aspiration for 7 days -Wcc is at 10.5 -Bc are negative to date. -Continue to treat with iV abx and breathing treatments, CT shows - 1. Moderate amount of right perihilar groundglass density airspace disease likely pneumonia or edema. 3. Cardiomegaly. 4. Moderate hiatal hernia. -Discharge today (2) Elevated troponin: Code(s): R79.89 - Other specified abnormal findings of blood chemistry Status: Acute Assessment and Plan: Seen by cardiology chest pain not likley to be cardiac related With follow-up at discharge (3) HTN (hypertension): Qualifiers: Hypertension type: essential hypertension Qualified Code(s): I10 - Essential (primary) hypertension Code(s): I10 - Essential (primary) hypertension Status: Acute Assessment and Plan: Continue pts home Bps medications as before (4) Anxiety: Code(s): F41.9 - Anxiety disorder, unspecified Status: Chronic Assessment and Plan: BuSpar started. (5) Hyperlipidemia: Code(s): E78.5 - Hyperlipidemia, unspecified Status: Chronic Assessment and Plan: Continue with Zetia. (6) Hypothyroid: Code(s): E03.9 - Hypothyroidism, unspecified Status: Chronic Assessment and Plan: Continue with levothyroxine. (7) Type 2 diabetes mellitus without complications: Code(s): E11.9 - Type 2 diabetes mellitus without complications Status: Acute Assessment and Plan: Her last A1c was 6.3. Will do sliding scale insulin. DM controlled diet. (8) Nausea and vomiting: Qualifiers: Vomiting Intractability: non-intractable Vomiting type: unspecified Qualified Code(s): R11.2 - Nausea with vomiting, unspecified Code(s): R11.2 - Nausea with vomiting, unspecified Status: Acute Assessment and Plan: Zofran and Protonix. -. History of hiatal hernia, pt usually takes 2 antacid at home. (9) Chest pain: Qualifiers: Chest pain type: other chest pain Qualified Code(s): R07.89 - Other chest pain Code(s): R07.9 - Chest pain, unspecified Status: Acute Assessment and Plan: Slight bump in troponin. Chest pain not cardiac related. DS: Summary Hospital Course Hospital Course: h&P for 11/02/19 Pneumonia/Nausea/Vomiting/Chest Pain Narrative: Aracely Spear is a 74 year old female who has had 2 episodes last year where she had some chest pain. She had a cardiac catheterization back in January and said that she has some blockages but there is also some type of tear and then they repeated it she believes and June and said that the the tear was healed. She stated that she has some blockage just but they were not stented. She stated they were not able to be stented at that time. The patient had been vomiting today. She complained of chest pain 4/10 that started this morning. She said it was tight and heavy. Did not radiate to any other location. She said she felt like she had a fever but then also had chills. Patient had been vomiting and thought that maybe she was having a heart attack because her friend vomit when she had a heart attack as well. She states that she never vomited today she vomited. She does not recall aspirating at all. She has been coughing for about 3 weeks and she has been having some severe postnasal drainage as well. Troponin 0.379 for the 1st reading and 0.486 for the 2nd troponin. Patient no longer has any chest pa
[2019-11-06] MEDS: ATORVASTATIN 40 MG TABLET PO (09:02)
[2019-11-06] MEDS: NEBIVOLOL HCL 5 MG TABLET 20 MG PO (09:02)
[2019-11-06] MEDS: SPIRONOLACTONE 12.5 MG TABLET PO (09:02)
[2019-11-06] MEDS: hydrALAZINE HCL 50 MG TABLET PO ×2 (09:03→13:11)
[2019-11-06] MEDS: EZETIMIBE 10 MG TABLET PO (09:03)
[2019-11-06] MEDS: AMLODIPINE BESYLATE 5 MG TABLET 10 MG PO (09:03)
[2019-11-06] MEDS: ASPIRIN 81 MG ENTERIC TABLET PO (09:03)
[2019-11-06] MEDS: CLOPIDOGREL BISULFATE 75 MG TABLET PO (09:03)
[2019-11-06] MEDS: VALSARTAN 160 MG TABLET 320 MG PO (11:42)
[2019-11-06 12:56] LABS: Glucose Point of Care 152 (65-105)
== END 2019-11-06 15:13 | disposition home or self-care (01) | DRG 194 ==
LOC: ANHED 13:21 → ANHIMU 14:41 → ANH2MED 11-03 15:20
PROVIDERS: Emergency Medicine; Family Medicine; Nurse Practitioner; Admitting Provider Internal Medicine; Emergency Provider General Practice; PCP Family Medicine; Visit Provider Internal Medicine
DX: J18.9 Pneumonia, unspecified organism (principal); E87.1 Hypo-osmolality and hyponatremia; T50.2X5A Adverse effect of carbonic-anhydrase inhibitors, benzothiadiazides and other diuretics, initial encounter; J69.0 Pneumonitis due to inhalation of food and vomit; R79.89 Other specified abnormal findings of blood chemistry; I10 Essential (primary) hypertension; E78.5 Hyperlipidemia, unspecified; E03.9 Hypothyroidism, unspecified; R11.2 Nausea with vomiting, unspecified; R07.89 Other chest pain; F41.8 Other specified anxiety disorders; K44.9 Diaphragmatic hernia without obstruction or gangrene; I51.7 Cardiomegaly; E11.42 Type 2 diabetes mellitus with diabetic polyneuropathy; D64.9 Anemia, unspecified; M19.90 Unspecified osteoarthritis, unspecified site; M06.9 Rheumatoid arthritis, unspecified; K21.9 Gastro-esophageal reflux disease without esophagitis; K58.9 Irritable bowel syndrome, unspecified; G47.30 Sleep apnea, unspecified; I25.10 Atherosclerotic heart disease of native coronary artery without angina pectoris; Z79.02 Long term (current) use of antithrombotics/antiplatelets; Z79.82 Long term (current) use of aspirin; Z90.710 Acquired absence of both cervix and uterus; Z90.49 Acquired absence of other specified parts of digestive tract
CPT/HCPCS: 36415; 71046; 71275; 80048; 80053; 80076; 81003; 83036; 83605; 83690; 84484; 85025; 85027; 85380; 85610; 85730; 87040; 87804; 93005; 94640; 96365; 96367; 96372; 96375; 99291; A9270; C9113; J0131; J0456; J0696; J1650; J1815; J2405; J7030; J7060; J7120; Q9967

== ENCOUNTER 2019-11-16 16:37 | Outpatient (CLI) | payer MEDICARE, BC, SELFPAY ==
[2019-11-16 17:15] LABS: Basophils Absolute Auto 0.1 K/mm3 (0.0-0.1); Basophils Percent Auto 0.8 % (0.2-1.2); Eosinophils Absolute Auto 0.3 K/mm3 (0-0.3); Hematocrit 35.7 % (37.0-47.0); Hemoglobin 11.7 g/dL (12.0-15.0); Immature Granulocyte Absolute 0.06 K/mm3 (0.00-0.031); Immature Granulocyte Percent A 0.4 % (0-0.5); Lymphocytes Absolute Auto 4.01 K/mm3 (0.9-3.2); Lymphocytes Percent Auto 27.8 % (18.3-44.2); Mean Corpuscular HGB Conc 32.8 g/dl (32-36); Mean Corpuscular Hemoglobin 30.4 pg (26-34); Mean Corpuscular Volume 92.7 fl (80-100); Mean Platelet Volume 9.7 fl (7.4-10.4); Monocytes Absolute Auto 0.8 K/mm3 (0.1-0.6); Monocytes Percent Auto 5.2 % (2.6-8.5); Neutrophils Absolute Auto 9.2 K/mm3 (1.3-6.7); Neutrophils Percent Auto 63.8 % (45.5-73.1); Platelet Count Result 353 k/mm3 (150-375); Red Blood Count 3.85 M/mm3 (4.2-5.4); Red Cell Distribution Width 13.1 % (11.5-14.5); White Blood Count 14.4 K/mm3 (4.5-10.0)
== END 2019-11-16 16:38 | disposition home or self-care (01) ==
LOC: ANHLAB 16:39
PROVIDERS: PCP Family Medicine; Visit Provider Nurse Practitioner
DX: D72.829 Elevated white blood cell count, unspecified (principal)
CPT/HCPCS: 36415; 85025

== ENCOUNTER 2019-12-10 14:27 | Outpatient (CLI) | payer MEDICARE, BC, SELFPAY ==
--- NOTE | ~2019-12-10 | CT_ITS ---
EXAMINATION: CT chest abdomen wo con DATE: 12/10/2019 15:16 INDICATION: Pneumonia, unspecified organism. TECHNIQUE: Computed tomography (CT) of the chest and abdomen was performed without intravenous contra st. Automated exposure control and iterative reconstruction technique were employed. The dose-length product was 458.45 mGy-cm. COMPARISON: Chest CT 11/02/2019, chest 2 views 11/02/2019 FINDINGS: CHEST CT: The lungs demonstrate mild atelectasis. There is a 4 mm nodule in right lower lobe, likely benign. A calcified right lung nodule and calcified right hilar lymph nodes are consistent with old granulomato us disease. No pleural effusion. Cardiomegaly is noted. There are coronary artery calcifications. No pericardial effusion. There is a moderate-sized sliding hiatal hernia. There are suture anchors in ri ght humeral head. ABDOMEN CT: There are cysts in the liver measuring up to 3.2 cm. Calcifications in the spleen are consistent with old granulomatous disease. There are changes of cholecystectomy. The pancreas, adrenal glands, and k idneys are normal. There is no urolithiasis. There are no dilated loops of bowel. There are no pathol ogically enlarged lymph nodes. There is no free intraperitoneal fluid. There is severe lumbar spondyl osis. IMPRESSION: 1. Interval resolution of right-sided pneumonia. 2. Moderate-sized sliding hiatal hernia. Reviewed, dictated and finalized at location A.
[2019-12-10 15:06] LABS: Basophils Absolute Auto 0.1 K/mm3 (0.0-0.1); Basophils Percent Auto 0.7 % (0.2-1.2); Eosinophils Absolute Auto 0.3 K/mm3 (0-0.3); Eosinophils Percent Auto 2.3 % (0-4.4); Hematocrit 35.9 % (37.0-47.0); Immature Granulocyte Absolute 0.05 K/mm3 (0.00-0.031); Immature Granulocyte Percent A 0.5 % (0-0.5); Lymphocytes Absolute Auto 4.76 K/mm3 (0.9-3.2); Lymphocytes Percent Auto 42.9 % (18.3-44.2); Mean Corpuscular HGB Conc 33.4 g/dl (32-36); Mean Corpuscular Hemoglobin 30.2 pg (26-34); Mean Corpuscular Volume 90.2 fl (80-100); Mean Platelet Volume 9.8 fl (7.4-10.4); Monocytes Absolute Auto 0.8 K/mm3 (0.1-0.6); Monocytes Percent Auto 6.8 % (2.6-8.5); Neutrophils Absolute Auto 5.2 K/mm3 (1.3-6.7); Neutrophils Percent Auto 46.8 % (45.5-73.1); Platelet Count Result 372 k/mm3 (150-375); Red Blood Count 3.98 M/mm3 (4.2-5.4); Red Cell Distribution Width 12.2 % (11.5-14.5); White Blood Count 11.1 K/mm3 (4.5-10.0)
== END 2019-12-10 14:28 | disposition home or self-care (01) ==
LOC: ANHIMG 14:32
PROVIDERS: PCP Family Medicine; Visit Provider Nurse Practitioner
DX: D72.829 Elevated white blood cell count, unspecified (principal); J18.9 Pneumonia, unspecified organism; K44.9 Diaphragmatic hernia without obstruction or gangrene
CPT/HCPCS: 36415; 71250; 74150; 85025

== ENCOUNTER 2020-02-24 11:22 | Outpatient (RCR) | payer SELFPAY | END 2020-02-24 23:59 | disposition home or self-care (01) | LOC: ANHAUDIO 11:22 | PROVIDERS: PCP Family Medicine; Visit Provider Family Medicine | DX: Z46.1 Encounter for fitting and adjustment of hearing aid (principal) | CPT/HCPCS: 99199 ==

== ENCOUNTER 2020-03-15 12:56 | Outpatient (CLI) | payer MEDICARE, BC, SELFPAY ==
--- NOTE | ~2020-03-15 | XR_ITS ---
EXAMINATION:XR_[id number]_CR DATE: 03/15/2020 16:52 INDICATION: Neck pain TECHNIQUE: AP and lateral views of the cervical spine are obtained COMPARISON: None FINDINGS: There are 2 mm of retrolisthesis of C5 on C6. The odontoid is intact. No fracture is identi fied. The vertebral body heights are maintained. There is moderate loss of intervertebral disc space height at C5-6 and C6-7. There is moderate to severe multilevel facet and uncovertebral joint osteoar thritis. No abnormal erosions are identified. Degenerative osteophytes project from the anterior endp lates of multiple vertebral bodies. IMPRESSION: 1. Moderate to severe cervical spondylosis without acute findings. Reviewed, dictated and finalized at location A.
--- NOTE | ~2020-03-15 | XR_ITS ---
EXAMINATION: XR hip BI wo pelvis INDICATION: Rheumatoid arthritis TECHNIQUE: Two views of each hip are obtained. COMPARISON: 09/29/2018 FINDINGS: Bone alignment is normal. There is no fracture. There is mild bilateral hip osteoarthritis. No abnormal erosions are identified. There are phleboliths of the pelvis. Calcified atherosclerosis is noted. IMPRESSION: 1. Mild hip osteoarthritis without acute findings. Reviewed, dictated and finalized at location A.
--- NOTE | ~2020-03-15 | XR_ITS ---
EXAMINATION: HAND-UMAIR ARTHRITIS 3+VIEWS DATE: 03/15/2020 16:52 INDICATION: Rheumatoid arthritis TECHNIQUE: Posteroanterior, lateral, and oblique views of the left and of the right hands as well as a ballcatchers view of both hands were obtained. COMPARISON: Radiographs dated 11/01/2015, 06/30/2016 and 04/11/2017 FINDINGS: Marked diffuse osteopenia throughout both hands. Again seen are postoperative changes of prior right first carpal metacarpal suspension arthroplasty with trapezium resection. Interval progression of mary ellen yarticular arthritis at both hands is advanced at the left first carpometacarpal, right second metaca rpophalangeal and multiple predominantly distal interphalangeal joints. There is nonuniform joint spa ce narrowing, marginal osteophyte formation and with typical distribution for degenerative osteoarthr itis primarily at the interphalangeal joints and at the radial aspect of the carpus. At several of th e bilateral interphalangeal joints with distal predominance there are central erosions with gullwing configuration at the base of some of the phalanges consistent with erosive osteoarthritis. The joint space narrowing appears relatively uniform and of moderate severity at the metacarpophalangeal joints which be consistent with the provided history of rheumatoid arthritis. More severe joint space narro wing with marginal osteophytes and mild palmar subluxation at the right second metacarpophalangeal jose carlos int consistent with advanced secondary osteoarthritis. No fractures. IMPRESSION: 1. Interval progression of advanced polyarticular arthritis at both hands which appears to represent a combination of rheumatoid arthritis and osteoarthritis/erosive osteoarthritis. 2. 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 Reviewed, dictated and finalized at location A. IMPRESSION: 1. Interval progression of advanced polyarticular arthritis at both hands which appears to represent a combination of rheumatoid arthritis and osteoarthritis/ erosive osteoarthritis. 2. 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
--- NOTE | ~2020-03-15 | XR_ITS ---
EXAMINATION: XR lumbar spine 2-3V DATE: 03/15/2020 16:52 INDICATION: Rheumatoid arthritis TECHNIQUE: AP and lateral views of the lumbar spine were obtained. COMPARISON: CT, 09/29/2018 FINDINGS: There are 5 mm of chronic anterolisthesis of L4 on L5 and L5 on S1. There is severe loss of intervertebral disc space height at all levels of the lumbar spine except L3-4 where loss of disc sp griselda height is moderate. The vertebral body heights are maintained. There is no fracture. Severe facet osteoarthritis is noted in the lower lumbar spine. Degenerative osteophytes project from the anterio r endplates of multiple vertebral bodies. Cholecystectomy clips are noted in the right upper quadrant . There are phleboliths of the pelvis. The bowel gas pattern is normal. Calcified atherosclerosis is noted. IMPRESSION: 1. Severe lumbar spondylosis without acute findings or significant interval change. Reviewed, dictated and finalized at location A. IMPRESSION: 1. Severe lumbar spondylosis without acute findings or significant interval rosendo nge.
--- NOTE | ~2020-03-15 | XR_ITS ---
EXAMINATION: XR knee LT 2V DATE: 03/15/2020 16:52 INDICATION: Rheumatoid arthritis TECHNIQUE: Two views of the left knee were obtained. COMPARISON: 12/24/2017 FINDINGS: Alignment is normal. No fracture or osteochondral lesion. There is mild tricompartmental os teoarthritis characterized by tiny marginal osteophytes. No erosions are identified. No joint effusio n/synovitis. Calcified atherosclerosis is noted. IMPRESSION: 1. No acute osseous abnormality. Reviewed, dictated and finalized at location A.
--- NOTE | ~2020-03-15 | XR_ITS ---
EXAMINATION: XR knee RT 2V DATE: 03/15/2020 16:52 INDICATION: Rheumatoid arthritis TECHNIQUE: Two views of the right knee were obtained. COMPARISON: None. FINDINGS: Alignment is normal. No fracture or osteochondral lesion. There is mild tricompartmental os teoarthritis characterized by tiny marginal osteophytes. No erosions are identified. No joint effusio n/synovitis. Calcified atherosclerosis is noted. IMPRESSION: 1. No acute osseous abnormality. Reviewed, dictated and finalized at location A.
--- NOTE | ~2020-03-15 | XR_ITS ---
EXAMINATION: XR thoracic spine 2V DATE: 03/15/2020 16:52 INDICATION: Rheumatoid arthritis TECHNIQUE: AP and lateral views of the thoracic spine are obtained. COMPARISON: 04/03/2017 FINDINGS: Bone alignment is normal. There is no fracture. No abnormal erosions are identified. There is mild loss of intervertebral disc space height at multiple levels in the thoracic spine. The verteb ral body heights are maintained. Small degenerative osteophytes project from the anterior endplates o f multiple vertebral bodies. IMPRESSION: 1. Mild thoracic spondylosis without acute findings or significant interval change. Reviewed, dictated and finalized at location A. IMPRESSION: 1. Mild thoracic spondylosis without acute findings or significant interval rosendo jwe.
--- NOTE | ~2020-03-15 | XR_ITS ---
EXAMINATION: XR sacrum coccyx min 2V INDICATION: Rheumatoid arthritis TECHNIQUE: Three views of the sacrum and coccyx are obtained. COMPARISON: 08/29/2010 FINDINGS: Bone alignment is normal. There is no fracture. No abnormal sclerosis or erosions are ident ified. There is severe lumbar spondylosis. Calcified atherosclerosis is noted. IMPRESSION: 1. Unremarkable sacrum and coccyx radiographs. Reviewed, dictated and finalized at location A.
[2020-03-15 14:47] LABS: Basophils Absolute Auto 0.1 K/mm3 (0.0-0.1); Basophils Percent Auto 0.7 % (0.2-1.2); Eosinophils Absolute Auto 0.5 K/mm3 (0-0.3); Eosinophils Percent Auto 4.3 % (0-4.4); Hematocrit 38.3 % (37.0-47.0); Hemoglobin 12.9 g/dL (12.0-15.0); Immature Granulocyte Absolute 0.04 K/mm3 (0.00-0.031); Immature Granulocyte Percent A 0.4 % (0-0.5); Lymphocytes Absolute Auto 3.72 K/mm3 (0.9-3.2); Lymphocytes Percent Auto 35.8 % (18.3-44.2); Mean Corpuscular HGB Conc 33.7 g/dl (32-36); Mean Corpuscular Hemoglobin 30.2 pg (26-34); Mean Corpuscular Volume 89.7 fl (80-100); Monocytes Absolute Auto 0.7 K/mm3 (0.1-0.6); Monocytes Percent Auto 7.1 % (2.6-8.5); Neutrophils Absolute Auto 5.4 K/mm3 (1.3-6.7); Neutrophils Percent Auto 51.7 % (45.5-73.1); Platelet Count Result 391 k/mm3 (150-375); Red Blood Count 4.27 M/mm3 (4.2-5.4); White Blood Count 10.4 K/mm3 (4.5-10.0)
[2020-03-15 15:03] LABS: Alanine Aminotransferase 13 U/L (4-35); Albumin Level 4.3 g/dL (3.5-5.1); Alkaline Phosphatase 78 U/L (38-126); Aspartate Amino Transferase 24 U/L (14-36); Bilirubin,Total 0.9 mg/dL (0.2-1.3); Blood Urea Nitrogen 15 mg/dL (7-17); CRP 0.7 mg/dL (<1.0); Calcium 9.4 mg/dL (8.4-10.2); Carbon Dioxide 21 mmol/L (22-30); Chloride 102 mmol/L (98-107); Estimated Glomerular Filt Rate 54; Glucose 114 mg/dL (65-105); Potassium 4.8 mmol/L (3.4-5.0); Rheumatoid Factor < 12.0 IU/ML (<12); Sodium 134 mmol/L (137-145)
[2020-03-15 15:38] LABS: Erythrocyte Sedimentation Rate 24 mm/hr (0-20)
[2020-03-21 10:50] LABS: Anti Cyclic Citrullinated Pept <16 Units (<20)
== END 2020-03-15 12:57 | disposition home or self-care (01) ==
PROVIDERS: PCP Family Medicine
DX: M06.9 Rheumatoid arthritis, unspecified (principal); M19.041 Primary osteoarthritis, right hand; M19.042 Primary osteoarthritis, left hand; M16.0 Bilateral primary osteoarthritis of hip; M47.894 Other spondylosis, thoracic region; M47.892 Other spondylosis, cervical region; M47.896 Other spondylosis, lumbar region
CPT/HCPCS: 36415; 72040; 72070; 72100; 72220; 73130; 73521; 73560; 73660; 80053; 82248; 85025; 85652; 86140; 86200; 86430; 99212; G0463

== ENCOUNTER 2020-04-26 07:52 | Outpatient (RCR) | payer MEDICARE, BC, SELFPAY ==
[2020-03-15 14:45] VITALS: BMI 29.6
--- NOTE | ~2020-04-26 | XR_ITS ---
EXAMINATION: XR toe 3rd LT min 2V EXAM DATE: 03/15/2020 16:53 INDICATION: Redness warmth swelling. Sore on bottom of left 3rd toe. TECHNIQUE: Left 3rd toe frontal, lateral and oblique projections obtained and reviewed. Correlation is made to left foot exam 02/27/2011. FINDINGS: There are no bony erosions identified. There are no acute left 3rd toe fractures or disloc ations identified. There is no subcutaneous gas. The soft tissue is unremarkable. There are no ra diopaque foreign bodies. IMPRESSION: Left 3rd toe swelling without acute osseous change. Reviewed, dictated and finalized at location B.
== END 2020-05-29 08:11 | disposition home or self-care (01) ==
LOC: ANHWOC 07:52
PROVIDERS: PCP Family Medicine; Visit Provider Nurse Practitioner
DX: L97.529 Non-pressure chronic ulcer of other part of left foot with unspecified severity (principal)
CPT/HCPCS: 73660; 99211; 99212; G0463

== ENCOUNTER 2020-05-02 08:13 | Emergency (ER) | payer MEDICARE, BC, SELFPAY ==
--- NOTE | ~2020-05-02 | XR_ITS ---
EXAMINATION: XR chest 1V portable DATE: 05/02/2020 09:58 INDICATION: Nausea and vomiting. TECHNIQUE: A single frontal view of the chest was obtained. COMPARISON: Chest 2 views 11/02/2019 FINDINGS: The chest demonstrates clear lungs without pneumonia, pleural effusion, or pneumothorax. Th e heart size is normal. There is a moderate-sized hiatal hernia. There are suture anchors in right hu meral head. There are likely changes of distal left clavicle resection. IMPRESSION: 1. Moderate-sized hiatal hernia. Reviewed, dictated and finalized at location A.
--- NOTE | ~2020-05-02 | CT_ITS ---
EXAMINATION: CT abdomen pelvis w con EXAM DATE: 05/02/2020 09:20 INDICATION: Generalized abdominal pain. TECHNIQUE: Spiral CT of the abdomen and pelvis was performed following intravenous injection of 100 m L Omnipaque 350. Axial, coronal and sagittal images were reviewed. The dose-length product (DLP) fo r this examination was 707.14 mGy-cm. The exposure was tailored according to patient size (auto mA e xposure control), and iterative reconstruction (ASIR) was used as additional dose reduction technique . Comparison is made to prior examination from 12/10/2019. FINDINGS: There are very faint ill-defined regions of groundglass airspace disease at the right lung base. Possible early stage COVID 19-induced acute lung injury. Other acute possibilities include infl uenza, pulmonary edema or hemorrhage. Some chronic processes that can have this appearance include cr yptogenic organizing pneumonia, desquamative interstitial pneumonia, nonspecific interstitial pneumon ia, drug toxicity, connective tissue disease. Please clinically correlate and test as appropriate. There is a 3 cm cyst in the right liver lobe. The liver, spleen, adrenal glands and pancreas are oth erwise unremarkable. There are surgical clips in the gallbladder fossa. Some biliary duct dilation which is common finding following cholecystectomy. Portal and splenic veins are patent. Kidneys enh ance symmetrically. Small region of left renal cortical scarring. There is no hydronephrosis. The u terus is not identified and has likely been surgically resected. The bladder is collapsed at time of imaging limiting evaluation. There is no retroperitoneal or pelvic lymphadenopathy. There is mode rate to severe scattered arteriosclerotic disease. The appendix is not positively visualized. There is no pericecal inflammatory change to suggest appe ndicitis. There is small to moderate-sized gastroesophageal hiatal hernia. There is expected amoun t of colonic stool. No free intraperitoneal gas. The heart is normal in size. There are no peric ardial or pleural effusions. There are no osteoblastic or osteolytic lesions identified. Advanced lower lumbar spondylosis. IMPRESSION: 1. Faint ill-defined right basilar groundglass opacities, nonspecific. Recommend considering/excludi ng COVID-19. I discussed this with Alaina Samuel MD. 2. Small to moderate gastroesophageal hiatal hernia. 3. Surgical and chronic changes. 4. No acute intra-abdominal findings. Reviewed, dictated and finalized at location B. IMPRESSION: 1. Faint ill-defined right basilar groundglass opacities, nonspecific. Recomme nd considering/excluding COVID-19. I discussed this with Alaina Samuel MD. 2. Small to moderate gastroesophageal hiatal hernia. 3. Surgical and chronic changes. 4. No acute intra-abdominal findings.
[2020-05-02 08:27] VITALS: BP 167/64; PULSE 65; RESP 12; TEMP 37; O2SAT 97
[2020-05-02 08:42] LABS: Basophils Absolute Auto 0.1 K/mm3 (0.0-0.1); Basophils Percent Auto 0.3 % (0.2-1.2); Eosinophils Absolute Auto 0.1 K/mm3 (0-0.3); Eosinophils Percent Auto 0.8 % (0-4.4); Hematocrit 36.7 % (37.0-47.0); Hemoglobin 12.7 g/dL (12.0-15.0); Immature Granulocyte Absolute 0.08 K/mm3 (0.00-0.031); Immature Granulocyte Percent A 0.5 % (0-0.5); Lymphocytes Absolute Auto 3.57 K/mm3 (0.9-3.2); Lymphocytes Percent Auto 20.5 % (18.3-44.2); Mean Corpuscular HGB Conc 34.6 g/dl (32-36); Mean Corpuscular Hemoglobin 30.8 pg (26-34); Mean Corpuscular Volume 89.1 fl (80-100); Mean Platelet Volume 9.9 fl (7.4-10.4); Monocytes Percent Auto 5.8 % (2.6-8.5); Neutrophils Absolute Auto 12.6 K/mm3 (1.3-6.7); Neutrophils Percent Auto 72.1 % (45.5-73.1); Platelet Count Result 340 k/mm3 (150-375); Red Blood Count 4.12 M/mm3 (4.2-5.4); Red Cell Distribution Width 12.8 % (11.5-14.5); White Blood Count 17.4 K/mm3 (4.5-10.0)
--- NOTE | 2020-05-02 08:45 | ED.ABDPAIN ---
HPI - Abdominal Pain General Chief Complaint: Nausea/Vomiting/Diarrhea Stated Complaint: doesnt feel good Time Seen by Provider: 05/02/20 08:37 Source: patient and family (Sister) Mode of arrival: ambulatory Limitations: no limitations History of Present Illness HPI narrative: Patient presents with her sister for severe abdominal pain. Started 3 days ago. She has had nausea but no vomiting. She has diarrhea with 2 stools today. No blood in the stool. She has had no fever chills or sweats. She gauges the pain at 9 out of 10 now. She takes Oxy her rheumatoid pain, and does not want to get too much pain medicine. MD elicited complaint: abdominal pain Onset (ago): day(s) Pain Consistency: constant Location: diffuse Severity: severe Pain scale (0-10): 9 Radiation: none Migration to: no migration Exacerbating factors: nothing Relieving factors: nothing Associated symptoms: nausea and diarrhea Treatments prior to arrival: prescription analgesics Related Data Home Medications Medication Instructions Recorded Confirmed aspirin 81 mg tablet,delayed 81 mg PO DAILY 07/29/19 03/15/20 release clopidogrel 75 mg tablet 75 mg PO DAILY 07/29/19 03/15/20 folic acid 1 mg tablet 1 mg PO TID 07/29/19 03/15/20 meclizine 25 mg tablet 25 mg PO TID PRN 07/29/19 03/15/20 montelukast 10 mg tablet 10 mg PO HS 07/29/19 03/15/20 nitroglycerin 0.4 mg sublingual 0.4 mg SUBLINGUAL Q5M PRN 07/29/19 03/15/20 tablet esomeprazole magnesium 20 mg PO BID 11/02/19 03/15/20 spironolactone 12.5 mg PO DAILY 11/02/19 03/15/20 nebivolol [Bystolic] mg 05/02/20 Allergies Allergy/AdvReac Type Severity Reaction Status Date / Time No Known Allergies Allergy Verified 05/02/20 08:32 Review of Systems Review of Systems: Narrative: CONSTITUTIONAL: Denies fever, chills, or sweats. EYES: Denies visual changes, redness, or discharge. ENT: Denies rhinorrhea, congestion, sore throat, or otalgia. CARDIOVASCULAR: Denies chest pain, palpitations, or edema. RESPIRATORY: Denies cough or dyspnea. GASTROINTESTINAL: Denies abdominal pain, nausea, vomiting, or diarrhea. GENITOURINARY: Denies dysuria or hematuria. SKIN: Denies rash or itching. MUSCULOSKELETAL: Denies back pain, joint pain, or myalgia. NEUROLOGIC: Denies headache, numbness, or weakness. PSYCHIATRIC: Denies anxiety or depression. [facility] Social History Social History Social History: Patient lives at home with her who has dementia. She does have some help looking out after him. She has 2 children from whom she is estranged. She says that they would take everything that she and her own. No power competitive intelligence manager the patient is a full code. 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 Lifelong nonsmoker no alcohol. She does have medical marijuana patches Smoking status: Never smoker Second hand tobacco smoke exposure: No Alcohol intake: never Substance use: former Substance use type: marijuana Gender identity (if verbalized by the patient): Female Spiritual care concerns: No Agree to blood products: Yes Course Reevaluation(s) Reevaluation #1: Rechecked the patient and she is feeling better. She would like 1 more dose of pain medicine and 1 more dose of Zofran before she goes. She can have a prescription for Zofran for outpatient. She knows about the hiatal hernia. Her sister agrees with the discharge home. Date: 05/02/20 Time: 11:12 Vital Signs Vital signs: Vital Signs Temperature 98.6 F 05/02/20 08:27 Pulse Rate 65 05/02/20 08:27 Respiratory Rate 12 05/02/20 08:27 Blood Pressure 167/64 H 05/02/20 08:27 Pulse Oximetry 97 05/02/20 08:27 Temperature 98.6 F 05/02/20 08:27 Pulse Rate 78 05/02/20 10:06 Respiratory Rate 16 05/02/20 10:06 Blood Pressure 152/62 H 05/02/20 10:06 Pulse Oximetry 97 05/02/20 10:06 MDM - Abdominal Pain Lab Data Result diagrams: 05/02
[2020-05-02] MEDS: FAMOTIDINE 20 MG/2 ML VIAL IV PUSH (08:47)
[2020-05-02] MEDS: MORPHINE SULFATE 2 MG/ML INJ IV PUSH (08:47)
[2020-05-02] MEDS: ONDANSETRON INJ 4 MG/2 ML VIAL IV PUSH ×2 (08:47→11:28)
[2020-05-02] MEDS: SODIUM CHLORIDE 0.9% IV 1,000 ML 500 ML IV CONT (08:47)
[2020-05-02 09:04] VITALS: BP 152/62; PULSE 62; RESP 12; O2SAT 96
[2020-05-02 09:04] LABS: Alanine Aminotransferase 17 U/L (4-35); Albumin Level 4.2 g/dL (3.5-5.1); Alkaline Phosphatase 89 U/L (38-126); Anion Gap 11 mmol/L (8-16); Aspartate Amino Transferase 30 U/L (14-36); Bilirubin,Total 1.5 mg/dL (0.2-1.3); Blood Urea Nitrogen 16 mg/dL (7-17); Calcium 8.9 mg/dL (8.4-10.2); Carbon Dioxide 22 mmol/L (22-30); Chloride 95 mmol/L (98-107); Estimated Glomerular Filt Rate > 60; Glucose 172 mg/dL (65-105); Lipase 29 U/L (23-300); Potassium 4.6 mmol/L (3.4-5.0); Sodium 128 mmol/L (137-145)
[2020-05-02 09:11] LABS: Add Urine Microscopic? NO; Appearance Urine Clear (Clear); Bilirubin Urine Negative (Negative); Blood Urine Negative (Negative); Color Urine Yellow (Yellow); Glucose Urine UA Negative (Negative); Ketones Urine Negative (Negative); Leukocyte Esterase Ur Negative LEU/UL (Negative); Mucus Urine Rare /lpf; Nitrate Urine Negative (Negative); Protein Urine Negative (Negative); RBC Urine 0-2 /hpf (0-2); Specific Grav Ur 1.014 (1.001-1.035); Squamous Epithelial Cell Urine Rare /hpf (Few); Urobilinogen Urine Negative mg/dL (<2.0); WBC Urine 0-3 /hpf
--- NOTE | 2020-05-02 09:12 | PC.NURSE ---
Pt to CT scan via stretcher.
[2020-05-02 10:06] VITALS: BP 152/62; PULSE 78; RESP 16; O2SAT 97
[2020-05-02] MEDS: MORPHINE SULFATE 4 MG/ML INJ IV PUSH (11:29)
[2020-05-02 11:31] VITALS: BP 125/60; PULSE 67; RESP 17; O2SAT 97
[2020-05-02 23:24] LABS: SARS-CoV-2 RNA PCR Negative
== END 2020-05-02 11:57 | disposition home or self-care (01) ==
PROVIDERS: Emergency Provider Emergency Medicine; PCP Nurse Practitioner
DX: R11.0 Nausea (principal); R10.84 Generalized abdominal pain; R19.7 Diarrhea, unspecified; Z20.828 Contact with and (suspected) exposure to other viral communicable diseases
CPT/HCPCS: 36415; 51701; 71045; 74177; 80053; 81003; 83690; 85025; 87635; 96361; 96365; 96375; 96376; 99284; C9803; J2270; J2405; J2543; J7030; Q9967; U0003

== ENCOUNTER 2021-01-24 10:57 | Outpatient (CLI) | payer MEDICARE, BC, SELFPAY ==
[2021-01-24 11:54] LABS: Basophils Absolute Auto 0.1 K/mm3 (0.0-0.1); Basophils Percent Auto 0.5 % (0.2-1.2); Eosinophils Absolute Auto 0.1 K/mm3 (0-0.3); Eosinophils Percent Auto 1.5 % (0-4.4); Hematocrit 38.4 % (37.0-47.0); Hemoglobin 12.7 g/dL (12.0-15.0); Immature Granulocyte Absolute 0.06 K/mm3 (0.00-0.031); Immature Granulocyte Percent A 0.7 % (0-0.5); Lymphocytes Percent Auto 32.8 % (18.3-44.2); Mean Corpuscular HGB Conc 33.1 g/dl (32-36); Mean Corpuscular Hemoglobin 29.5 pg (26-34); Mean Corpuscular Volume 89.3 fl (80-100); Mean Platelet Volume 9.1 fl (7.4-10.4); Monocytes Absolute Auto 0.6 K/mm3 (0.1-0.6); Monocytes Percent Auto 6.6 % (2.6-8.5); Neutrophils Absolute Auto 5.3 K/mm3 (1.3-6.7); Neutrophils Percent Auto 57.9 % (45.5-73.1); Platelet Count Result 312 k/mm3 (150-375); Red Cell Distribution Width 12.6 % (11.5-14.5); White Blood Count 9.2 K/mm3 (4.5-10.0)
[2021-01-24 12:03] LABS: Alanine Aminotransferase 10 U/L (4-35); Albumin Level 4.1 g/dL (3.5-5.1); Alkaline Phosphatase 74 U/L (38-126); Anion Gap 7 mmol/L (8-16); Aspartate Amino Transferase 30 U/L (14-36); Bilirubin,Total 0.8 mg/dL (0.2-1.3); Blood Urea Nitrogen 12 mg/dL (7-17); Calcium 9.6 mg/dL (8.4-10.2); Carbon Dioxide 29 mmol/L (22-30); Chloride 94 mmol/L (98-107); Cholesterol 245 mg/dL (0-200); Estimated Glomerular Filt Rate > 60; Glucose 101 mg/dL (65-105); HDL Direct 63 mg/dL; Potassium 4.2 mmol/L (3.4-5.0); Sodium 130 mmol/L (137-145); Triglycerides 138 mg/dL (<150)
[2021-01-24 12:09] LABS: Hemoglobin A1C 5.7 % (<5.7)
[2021-01-24 12:14] LABS: LDL Cholesterol Direct 132 mg/dL
[2021-01-24 13:21] LABS: Thyroid Stimulating Hormone Reflex 0.502 uIU/mL (0.465-4.68)
[2021-01-24 20:59] LABS: Vitamin D 25 Hydroxy < 12.8 ng/mL
== END 2021-01-24 10:58 | disposition home or self-care (01) ==
PROVIDERS: PCP Nurse Practitioner; Visit Provider Nurse Practitioner
DX: E55.9 Vitamin D deficiency, unspecified (principal); I10 Essential (primary) hypertension; E11.9 Type 2 diabetes mellitus without complications; E03.9 Hypothyroidism, unspecified; E78.5 Hyperlipidemia, unspecified; R07.89 Other chest pain
CPT/HCPCS: 36415; 80053; 80061; 82306; 83036; 84443; 85025

== ENCOUNTER 2021-04-09 12:35 | Inpatient (IN) | payer MEDICARE, BC, SELFPAY ==
[2021-04-09] VITALS (26 sets, daily range): BP systolic 104–166; BP diastolic 64–123; PULSE 70–97; RESP 12–22; TEMP 36.4–36.6; O2SAT 95–99; BMI 25.8
--- NOTE | ~2021-04-09 | XR_ITS ---
EXAMINATION: XR chest 2V DATE: 04/12/2021 17:55 INDICATION: Dyspnea on exertion TECHNIQUE: AP and lateral views of the chest are obtained. COMPARISON: 04/09/2021 FINDINGS: The lungs are free of acute opacities. There is no pleural effusion or pneumothorax. The ca rdiomediastinal silhouette is normal. There is mild thoracic spondylosis. Calcified atherosclerosis i s noted. Cholecystectomy clips are present in the right upper quadrant. There are suture anchors in t he right humeral head. A moderate-sized hiatal hernia is noted. IMPRESSION: 1. No acute cardiopulmonary abnormality. Reviewed, dictated and finalized at location A.
--- NOTE | ~2021-04-09 | XR_ITS ---
EXAMINATION: XR chest 2V 04/09/2021 13:06 INDICATION: Chest pain PROCEDURE: Two-view chest COMPARISON: Comparison to multiple prior studies sequentially, with oldest reviewed study dated 02/2018. FINDINGS: The lungs are clear. The cardiomediastinal silhouette is within normal limits. There are no pleural effusions. There is no pneumothorax suspected. There are cholecystectomy clips. There ar e surgical changes in both shoulders. IMPRESSION: 1: NO ACUTE CARDIOPULMONARY DISEASE. Reviewed, dictated and finalized at location A.
--- NOTE | ~2021-04-09 | CT_ITS ---
EXAMINATION: CTA chest PE protocol DATE: 04/09/2021 15:30 INDICATION: Shortness of breath and chest pain TECHNIQUE: Computed tomography angiography (CTA) of the chest was performed with 100 mL Omnipaque-350 intravenous contrast timed to evaluate the pulmonary arteries. Coronal maximum intensity projection 3D-reconstructions were created by the technologist. The dose-length product (DLP) was 294.34 mGy-cm. Automated exposure control and iterative reconstruction technique were employed. COMPARISON: 11/02/2019 FINDINGS: The pulmonary arteries are well-opacified. No pulmonary embolism is identified. Patchy bila teral airspace opacities are present, likely atelectasis. There is no pleural effusion or pneumothora x. Cardiomegaly is noted. No pathologically enlarged thoracic lymph nodes are identified. Calcified c oronary artery atherosclerosis is noted. There is a moderate-sized sliding hiatal hernia. The gallbla dder is surgically absent. Punctate calcifications in an otherwise normal spleen likely represent hea led granulomatous disease. A cyst of the right hepatic lobe has decreased in size and increased in de nsity. IMPRESSION: 1. No evidence of pulmonary embolism. 2. Cardiomegaly. Reviewed, dictated and finalized at location A.
--- NOTE | ~2021-04-09 | NM_ITS ---
EXAMINATION: NM deidre stress w perfusion DATE: 04/16/2021 11:50 INDICATION: Coronary artery disease. Dyspnea on exertion. TECHNIQUE: Rest images were obtained following intravenous administration of 11.5 mCi Tc99m tetrofosm in (Myoview). The patient was infused intravenously with Lexiscan (Regadenoson). Then, 2.3 mCi Tc99m tetrofosmin (Myoview) was administered intravenously, and stress images were obtained. Data was recon structed into short axis and horizontal and vertical long axis SPECT images. Gated SPECT images were also obtained. COMPARISON: None. FINDINGS: There is no definite reversible or fixed perfusion abnormality to suggest ischemia or infar ction. There is normal left ventricular chamber size, wall motion and ejection fraction. Left ventr icular ejection fraction measures >70%. IMPRESSION: 1. Normal myocardial perfusion at rest and during stress. 2. Left ventricular ejection fraction measuring >70%. Reviewed, dictated and finalized at location A.
--- NOTE | 2021-04-09 12:37 | ECG_ITS ---
Measurements Intervals [place] Rate: 79 P: 69 MI: 185 QRS: -28 QRSD: 86 T: 15 QT: 397 QTc: 456 Interpretive Statements SINUS RHYTHM DELAYED PRECORDIAL R/S TRANSITION VOLTAGE CRITERIA FOR LVH MINIMAL Q WAVES- HIGH LATERAL LEADS BORDERLINE T WAVE ABNORMALITY- INFERIOR LEADS BORDERLINE ECG Electronically Signed On 04-09-2021 12:52:05 CDT by Jasvir Steele D.O.
[2021-04-09 13:20] LABS: Chloride 94 mmol/L (98-107); Prothrombin Time 13.1 Seconds (11.1-14.7)
[2021-04-09 13:25] LABS: Anion Gap 13 mmol/L (8-16); Blood Urea Nitrogen 12 mg/dL (7-17); Calcium 9.8 mg/dL (8.4-10.2); Carbon Dioxide 23 mmol/L (22-30); Estimated Glomerular Filt Rate > 60; Glucose 149 mg/dL (65-110); Potassium 3.8 mmol/L (3.4-5.0); Sodium 130 mmol/L (137-145)
[2021-04-09 13:33] LABS: Partial Thromboplastin Time < 20.0 SECONDS (22.3-36.8)
[2021-04-09 13:34] LABS: Troponin I < 0.012 ng/mL (0.000-0.034)
[2021-04-09 14:32] LABS: Basophils Percent Auto 0.4 % (0.2-1.2); Eosinophils Percent Auto 0.3 % (0-4.4); Hematocrit 38.3 % (37.0-47.0); Hemoglobin 13.4 g/dL (12.0-15.0); Immature Granulocyte Absolute 0.04 K/mm3 (0.00-0.031); Immature Granulocyte Percent A 0.4 % (0-0.5); Lymphocytes Absolute Auto 2.75 K/mm3 (0.9-3.2); Lymphocytes Percent Auto 24.3 % (18.3-44.2); Mean Corpuscular Hemoglobin 30.1 pg (26-34); Mean Corpuscular Volume 86.1 fl (80-100); Mean Platelet Volume 9.5 fl (7.4-10.4); Monocytes Absolute Auto 0.4 K/mm3 (0.1-0.6); Monocytes Percent Auto 3.6 % (2.6-8.5); Platelet Count Result 336 k/mm3 (150-375); Red Blood Count 4.45 M/mm3 (4.2-5.4); Red Cell Distribution Width 11.9 % (11.5-14.5); White Blood Count 11.3 K/mm3 (4.5-10.0)
--- NOTE | 2021-04-09 14:36 | ED.CHESTPAIN ---
HPI - Chest Pain General Chief Complaint: Chest Pain Stated Complaint: chest pain Time Seen by Provider: 04/09/21 14:17 Source: RN notes reviewed History of Present Illness HPI narrative: Patient presents to emergency department from home for shortness of breath. Patient states symptoms began approximately 5 days ago the day after she had driven her [place] states that she has been having progressively worsening shortness of breath worse with exertion to where she is hardly able to walk across the room because she gets short of breath states she has intermittent midsternal chest heaviness with the symptoms as well she is currently seen in the bed she does feel better she denies any fevers or chills abdominal pain nausea vomiting or any other symptoms. States she is followed by Dr. Pedraza for cardiology Related Data Home Medications Medication Instructions Recorded Confirmed aspirin 81 mg tablet,delayed 81 mg PO DAILY 07/29/19 12/18/20 release clopidogrel 75 mg tablet 75 mg PO DAILY 07/29/19 12/18/20 folic acid 1 mg tablet 1 mg PO TID 07/29/19 12/18/20 meclizine 25 mg tablet 25 mg PO TID PRN 07/29/19 12/18/20 montelukast 10 mg tablet 10 mg PO HS 07/29/19 12/18/20 nitroglycerin 0.4 mg sublingual 0.4 mg SUBLINGUAL Q5M PRN 07/29/19 12/18/20 tablet esomeprazole magnesium 20 mg PO BID 11/02/19 12/18/20 spironolactone 12.5 mg PO DAILY 11/02/19 12/18/20 Allergies Allergy/AdvReac Type Severity Reaction Status Date / Time No Known Allergies Allergy Verified 12/18/20 11:07 Review of Systems Review of Systems: Narrative: Gen.: Denies fevers or chills ENT: Denies congestion Respiratory: See HPI CV: Reports chest pain GI: Denies abdominal pain nausea, emesis or diarrhea denies burning, urgency, frequency or hematuria Musculoskeletal: Denies back pain or muscle pain Neuro: Denies numbness, tingling, weakness or focal weakness Skin: Denies rash Except as documented, all other systems reviewed and negative PMFSH Past Medical History Medical History Anemia Anxiety Asthma CAD (coronary artery disease) Angioplasty of a diagonal lesion 01/2018 Cardiac catheterization 06/2019 showed patent coronary arteries Cataracts, bilateral Degenerative joint disease involving multiple joints Depression GERD without esophagitis Hiatal hernia History of angina HTN (hypertension) Hyperlipidemia Hypothyroid IBS (irritable bowel syndrome) Non-ST elevation [place] (NSTEMI) Peripheral neuropathy Rheumatoid arthritis Seasonal allergies Sleep apnea Does not wear CPAP machine Type 2 diabetes mellitus without complications Surgical History Surgical History H/O foot surgery right H/O heart surgery 07/03 History of cardiac catheterization Angioplasty of a diagonal stenosis 01/2018 Cardiac catheterization 06/2019 showed patent coronary arteries History of hysterectomy Hx of appendectomy Hx of cataract removal with insertion of prosthetic lens Hx of cholecystectomy Hx of endoscopy upper Hx of shoulder surgery (Unknown) bilateral Family History Family History Grandparent Diabetes mellitus Father Acute myocardial infarction Diabetes mellitus Hypertension Mother Hypertension Diabetes mellitus Sibling Diabetes mellitus Hypertension Other Family history of cardiovascular disease Family history of malignant neoplasm of brain Social History Social History Social History: No power environmental attorney the patient is a full code. 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 Lifelong nonsmoker no alcohol. Smoking status: Never smoker Second hand tobacco smoke exposure: No Alcohol intake: never Substance use: former Substance use type: marijuana Gender identity (if verbali
[2021-04-09 15:42] LABS: Add Urine Microscopic? YES; Appearance Urine Clear (Clear); Bilirubin Urine Negative (Negative); Blood Urine Negative (Negative); Color Urine Yellow (Yellow); Glucose Urine UA Negative (Negative); Ketones Urine Negative (Negative); Leukocyte Esterase Ur Negative LEU/UL (Negative); Nitrate Urine Negative (Negative); Protein Urine Negative (Negative); RBC Urine 0-2 /hpf (0-2); Squamous Epithelial Cell Urine Rare /hpf (Few); WBC Urine 0-3 /hpf
[2021-04-09 16:37] LABS: NT Pro B Type Natriuretic Pept 485 pg/mL (5-100)
[2021-04-09] MEDS: oxyCODONE/ACETAMINOPHEN (*CRX) 5-325 MG TABLET 2 TABLET PO (16:43)
[2021-04-09 18:41] LABS: Troponin I < 0.012 ng/mL (0.000-0.034)
--- NOTE | 2021-04-09 20:14 | PC.NURSE ---
This patient, Aracely Spear, was admitted to IMU Room 205-02 on 04/09/21 at 2013. Patient/family oriented to hospital policies and general routines including ID bracelet, bed and alarms, visiting hours, pain management, procedures, bathroom and other care routines, personal items, smoking policy, room service/diet, and visiting hours. Information on how to activate the Rapid Response Team has been discussed. Patient/Family are encouraged to report perceived risks to care and to ask questions if they do not understand what they are told or what they should do.
--- NOTE | 2021-04-09 20:15 | PM.IMHP ---
H&P: HPI History of Present Illness Date/Time: 04/09/21 20:45 Chief Complaint: Shortness of breath and chest discomfort. Narrative: This is a 76-year-old female with multiple medical problems including coronary artery disease, hypertension, hyperlipidemia, diet-controlled diabetes, asthma, hypothyroidism, sleep apnea, rheumatoid arthritis, history of DVT, chronic hyponatremia, and chronic pain syndrome who presented to the emergency department earlier today via private vehicle from home for evaluation of shortness of breath and chest discomfort. About 5 days ago she drove her up to the [facility] in [place] for an appointment and since that time she reports progressive dyspnea on lesser and lesser exertion to the point she has been gasping for air just walking from the bathroom to the bedroom. It takes several minutes for her to feel comfortable again And she feels if she had a portable oxygen tank at home that it would be very beneficial. She has also had intermittent midsternal chest tightness which occasionally feels like a pinch sometimes radiating through to the back. She seems no pattern as to when this occurs but denies that it is related to exertion. She did use her rescue inhaler on a couple of occasions but it did not seem to help her very much. She denies fever, chills, sweats, cold and flu symptoms, pleuritic pain, palpitations, edema, nausea, vomiting, sweats, cough, dysphagia, and concerns for aspiration. Review of Systems Review of Systems: Narrative: 12 systems were reviewed with pertinent positives and negatives as per HPI upper arm no fever, chills, or sweats. No recent cold or flu symptoms. No exposure to those positive for COVID-19. She has sleep apnea but is noncompliant with CPAP at nighttime. Occasional PND. She also endorses orthopnea, telling me that she sleeps in recall her typically due to back pain however more recently she has been more comfortable that way due to shortness of breath. Except as documented, all other systems were reviewed and are negative. [facility] Past Medical History Medical History (Updated 04/09/21 @ 22:34 by Silvina Crespo PA-C) Anemia Anxiety Asthma Cataracts, bilateral Chronic hyponatremia Chronic pain syndrome Chronic, continuous use of opioids Coronary artery disease Angioplasty of a diagonal lesion 01/2018. Cardiac catheterization 06/2019 showed patent coronary arteries. Deep venous thrombosis Degenerative joint disease involving multiple joints Depression Gastroesophageal reflux disease Hiatal hernia Hyperlipidemia Hypertension Hypothyroid Irritable bowel syndrome Non-ST elevation [place] (NSTEMI) Obstructive sleep apnea Noncompliant with CPAP. Peptic ulcer Peripheral neuropathy Rheumatoid arthritis Seasonal allergies Type 2 diabetes mellitus without complications Diet-controlled. Hemoglobin A1c was 5.7% on 01/24/2021. Surgical History Surgical History (Updated 04/09/21 @ 22:31 by Silvina Crespo PA-C) History of appendectomy History of arthroscopy of both shoulders History of cardiac catheterization Angioplasty of a diagonal stenosis 01/2018. Cardiac catheterization 06/2019 showed patent coronary arteries. History of carpal tunnel release History of cholecystectomy History of foot surgery History of hysterectomy History of phacoemulsification of cataract with intraocular lens implantation Family History Family History Grandparent Diabetes mellitus Father Acute myocardial infarction Diabetes mellitus Hypertension Mother Hypertension Diabetes mellitus Sibling Diabetes mellitus Hypertension Other Family history of cardiovascular disease Family history of malignant neoplasm of brain Social History Social History (Updated 04/09/21 @ 22:31 by Silvina Crespo PA-C) Social History: The patient lives in [place] with her . 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 Becca
[2021-04-09 21:32] LABS: Troponin I < 0.012 ng/mL (0.000-0.034)
[2021-04-09] MEDS: oxyCODONE HCL (*CRX) 5 MG TAB IR PO (23:32)
[2021-04-09] MEDS: oxyCODONE/ACETAMINOPHEN (*CRX) 5-325 MG TABLET 1 TABLET PO (23:33)
[2021-04-09] MEDS: MONTELUKAST SODIUM 10 MG TABLET PO (23:53)
[2021-04-10] VITALS (15 sets, daily range): BP systolic 107–144; BP diastolic 39–87; PULSE 68–101; RESP 18–22; TEMP 36.2–36.6; O2SAT 98–100
--- NOTE | 2021-04-10 | ECHO_ITS ---
Patient Info Name: Aracely Spear Age: 76 years : 1945 Gender: Female Ht: 59 in Wt: 128 lbs BSA: 1.57 m2 HR: 69 bpm BP: 127 / 79 mmHg Heart Rhythm: Sinus Rhythm Technical Quality: Good Exam Date: 04/10/2021 1:05 PM Exam Location: [facility] Patient Status: Inpatient Admit Date: 04/09/2021 Staff Ordering Physician: Jerrod Blackwell MD Truck Sales Manager: Tiffany Rodriguez RDCS Attending Provider: Antonio Arthur MD Exam Type: CA echo doppler color flow Study Info Indications I50.9 - Heart failure, unspecified Complete two-dimensional, color flow and Doppler transthoracic echocardiogram is performed. Summary 1. Complete two-dimensional, color flow and Doppler transthoracic echocardiogram is performed. 2. Normal left ventricular size and thickness with overall good contractility of all segments. Estimated ejection fraction is 60-65%. No segmental wall motion abnormalities. Grade 2 diastolic dysfunction is present. Global longitudinal strain is mildly diminished at-17%, suggestive of mild left ventricular systolic dysfunction. 3. Left atrial chamber dimension is moderately enlarged. 4. There is mild tricuspid valve regurgitation. 5. No pulmonary hypertension, estimated pulmonary arterial systolic pressure is 29 mmHg. 6. Normal sinus rhythm. Left Ventricle Left ventricular chamber dimension is normal. Left ventricular systolic function is normal, estimated at 60-65%. There is no increased left ventricular wall thickness. Left ventricular septal wall motion is normal. The left ventricular diastolic function is grade II diastolic dysfunction. Global longitudinal strain is mildly elevated at 17 %. Right Ventricle Right ventricular chamber dimension is normal. Right ventricular systolic function is normal. Left Atria Left atrial chamber dimension is moderately enlarged. Right Atria Right atrial chamber dimension is normal. Aortic Valve The aortic valve is trileaflet. There is no aortic valve sclerosis. There is no aortic valve stenosis. There is no aortic valve regurgitation. Pulmonic Valve The pulmonic valve is normal. There is no pulmonic valve stenosis. There is trace pulmonic regurgitation. Mitral Valve The mitral valve has normal leaflets. There is no mitral valve stenosis. There is trace mitral valve regurgitation. Tricuspid Valve The tricuspid valve leaflets are normal. There is no significant tricuspid valve stenosis. There is mild tricuspid valve regurgitation. No pulmonary hypertension, estimated pulmonary arterial systolic pressure is 29 mmHg. Pericardium/Pleural The pericardium appears normal. There is no pericardial effusion. Inferior Vena Cava Normal inferior vena cava with >50% collapse upon inspiration consistent with Empty right atrial pressure, 10 mmHg. Aorta The aortic root size at the sinus of Valsalva is normal. The prox ascending aorta size is normal. Left Ventricular Outflow Tract Name Value Normal LVOT 2D LVOT Diameter 2.0 cm LVOT Doppler LVOT Peak Gradient 5 mmHg LVOT Mean Gradient 3 mmHg
--- NOTE | 2021-04-10 03:48 | ECG_ITS ---
Measurements Intervals [place] Rate: 65 P: 61 SD: 188 QRS: -21 QRSD: 89 T: 17 QT: 417 QTc: 434 Interpretive Statements SINUS RHYTHM ATRIAL PREMATURE COMPLEXES INCOMPLETE RIGHT BUNDLE BRANCH BLOCK DELAYED PRECORDIAL R/S TRANSITION VOLTAGE CRITERIA FOR LVH BORDERLINE T WAVE ABNORMALITY- ANTERIOR LEADS BORDERLINE ECG Electronically Signed On 04-10-2021 6:36:19 CDT by Jasvir Steele D.O.
[2021-04-10 04:58] LABS: Basophils Absolute Auto 0.1 K/mm3 (0.0-0.1); Basophils Percent Auto 0.8 % (0.2-1.2); Eosinophils Absolute Auto 0.1 K/mm3 (0-0.3); Eosinophils Percent Auto 1.5 % (0-4.4); Hematocrit 34.8 % (37.0-47.0); Hemoglobin 11.8 g/dL (12.0-15.0); Immature Granulocyte Absolute 0.02 K/mm3 (0.00-0.031); Immature Granulocyte Percent A 0.2 % (0-0.5); Lymphocytes Absolute Auto 2.95 K/mm3 (0.9-3.2); Mean Corpuscular HGB Conc 33.9 g/dl (32-36); Mean Corpuscular Hemoglobin 30.3 pg (26-34); Mean Corpuscular Volume 89.5 fl (80-100); Mean Platelet Volume 9.7 fl (7.4-10.4); Monocytes Absolute Auto 0.9 K/mm3 (0.1-0.6); Neutrophils Absolute Auto 4.3 K/mm3 (1.3-6.7); Neutrophils Percent Auto 51.5 % (45.5-73.1); Platelet Count Result 264 k/mm3 (150-375); Red Blood Count 3.89 M/mm3 (4.2-5.4); Red Cell Distribution Width 12.2 % (11.5-14.5); White Blood Count 8.4 K/mm3 (4.5-10.0)
[2021-04-10 05:16] LABS: Anion Gap 7 mmol/L (8-16); Blood Urea Nitrogen 12 mg/dL (7-17); Calcium 9.1 mg/dL (8.4-10.2); Carbon Dioxide 25 mmol/L (22-30); Chloride 98 mmol/L (98-107); Estimated Glomerular Filt Rate > 60; Glucose 101 mg/dL (65-110); Magnesium 1.6 mg/dL (1.6-2.3); Potassium 3.5 mmol/L (3.4-5.0); Sodium 130 mmol/L (137-145)
[2021-04-10] MEDS: oxyCODONE/ACETAMINOPHEN (*CRX) 5-325 MG TABLET 1 TABLET PO ×3 (05:33→17:35)
[2021-04-10] MEDS: LEVOTHYROXINE SODIUM 88 MCG TABLET PO (07:07)
[2021-04-10] MEDS: PANTOPRAZOLE 40 MG TABLET PO (07:09)
--- NOTE | 2021-04-10 08:27 | PM.CNCAR ---
Assessment and Plan Assessment and plan (1) Acute on chronic diastolic (congestive) heart failure: Code(s): I50.33 - Acute on chronic diastolic (congestive) heart failure Status: Acute Assessment and Plan: 76-year-old female with multiple medical problems -CAD with history of balloon angioplasty of diagonal branch in January 2018; diabetes mellitus, hypertension, ELVIRA not compliant with CPAP, asthma, rheumatoid arthritis, history of DVT. Patient presented to the hospital with worsening shortness of breath for about 1 week. She has baseline dyspnea on mild exertion associated with occasional chest pressure. EKG shows sinus rhythm, voltage criteria for LVH. No acute ST segment abnormality. Serial troponins are negative. NTproBNP is mildly elevated. Clinical presentation suggestive of acute on chronic CHF with preserved ejection fraction, based on previous echocardiogram . Patient has history of asthma/ bronchitis, which could be contributing to her symptoms of dyspnea. 1. Gentle diuresis with furosemide, monitor electrolytes and renal function. 2. Optimal blood pressure control, continue current antihypertensives. 3. Patient has history of CAD, and last catheterization from 07/06/2019 reported nonobstructive CAD with patent diagonal branch which previously had angioplasty. She has symptoms of chest pressure associated with shortness of breath. Continue antiplatelet treatment and statin. Add isosorbide mononitrate 30 mg p.o. daily. Monitor blood pressure. If blood pressure drops, then may discontinue hydralazine. Patient is currently on multiple antihypertensives . 4. Check echocardiogram with Doppler to reassess LV/ RV function, PA pressures; rule out pericardial effusion given patient's history of RA and distant heart sounds on exam. 5. Continue to monitor on telemetry for now 6. Consider pulmonology evaluation (2) Coronary artery disease: Code(s): I25.10 - Atherosclerotic heart disease of [place] coronary artery without angina pectoris Status: Acute Assessment and Plan: optimal, tolerable medical treatment as described above History of Present Illness History of Present Illness Consult date/time: 04/10/21 08:27 DATE OF CONSULT:04/10/2021 REASON FOR CONSULT: chest pain REQUESTING PHYSICIAN:Jeromy Mitchell DO CHIEF COMPLAINT: chest pain, shortness of breath HPI:76-year-old female with multiple medical problems -CAD with history of balloon angioplasty of diagonal branch in January 2018; diabetes mellitus, hypertension, ELVIRA not compliant with CPAP, asthma, rheumatoid arthritis, history of ?DVT. Patient follows up with Dr. Pedraza for her cardiovascular care. She has baseline dyspnea on mild exertion. She presented to [facility] on 04/09/2021 with worsening shortness of breath for 1 week associated with chest pressure. She states that she gets short of breath with minimal exertion and occasionally at rest while talking. She also feels pressure-like sensation in the lower substernal area. She denied any palpitation, dizziness, syncope. No PND, orthopnea or lower extremity swelling. Her last cardiac catheterization was on 07/06/2019 at [facility], which reportedly showed nonobstructive CAD with patent diagonal branch for which angioplasty was performed previously. EKG at presentation on the dorsal evaluation shows sinus rhythm, voltage criteria for LVH. No acute ST segment abnormality. Follow-up EKG showed sinus rhythm, PACs, incomplete right bundle-branch block. Serial troponins are negative. NT proBNP is elevated at 485. Chest x-ray unremarkable. CT of the chest was performed which showed cardiomegaly and no evidence of pulmonary embolism. Reason For Visit: Chest pain, dyspnea Review of Systems Review of Systems: Narrative: General: Generalized fatty fatigue Psychological: positive anxiety, depression Ophthalmic: negative for loss of vision ENT: Negative for epistaxis, headaches
--- NOTE | 2021-04-10 09:26 | PM.IMPN ---
Progress Note: A&P Assessment and Plan (1) Dyspnea on exertion: Code(s): R06.00 - Dyspnea, unspecified Status: Acute (2) Chest pain: Code(s): R07.9 - Chest pain, unspecified Status: Acute (3) Coronary artery disease: Code(s): I25.10 - Atherosclerotic heart disease of [place] coronary artery without angina pectoris Status: Acute (4) Hypertension: Code(s): I10 - Essential (primary) hypertension Status: Acute (5) Gastroesophageal reflux disease: Code(s): K21.9 - Gastro-esophageal reflux disease without esophagitis Status: Acute (6) Hypothyroid: Code(s): E03.9 - Hypothyroidism, unspecified Status: Chronic (7) Hyperlipidemia: Code(s): E78.5 - Hyperlipidemia, unspecified Status: Chronic (8) Diet-controlled diabetes mellitus: Code(s): E11.9 - Type 2 diabetes mellitus without complications Status: Acute (9) Rheumatoid arthritis: Qualifiers: Laterality: bilateral Rheumatoid arthritis location: hand Rheumatoid factor presence: unspecified presence Qualified Code(s): M06.9 - Rheumatoid arthritis, unspecified Code(s): M06.9 - Rheumatoid arthritis, unspecified Status: Chronic (10) Chronic pain syndrome: Code(s): G89.4 - Chronic pain syndrome Status: Acute (11) Chronic, continuous use of opioids: Code(s): F11.90 - Opioid use, unspecified, uncomplicated Status: Acute Additional Plan dyspnea on exertion /chest tightnessCT chest negative for PE shows cardiomegaly. BNP elevated at 485 chest x-ray unremarkable does not sound like asthma exacerbation. await further recommendation from Cardiology History of coronary artery disease with balloon angioplasty of diagonal branch January 2018 Diabetes mellitus Hypertension ELVIRA noncompliant with Ca Pap Asthma Rheumatoid arthritis History of DVT Cardiology consulted plan for echocardiogram for further evaluation DVT prophylaxis SCDs Full code status Subjective Date/time seen: 04/10/21 09:26 Interval history: this a little better but is still short of breath with minimal exertion. Difficulty with speaking because of his shortened shortness of breath also gets tightness in the chest seen by cardiology earlier today Review of Systems Review of Systems: All systems reviewed & are unremarkable except as noted in HPI and below ( HPI) Exam Narrative: Exam Narrative: General: Well-developed elderly female sitting at the side of the bed in no distress. anxious looking HEENT: Normocephalic, atraumatic. PERRL, EOMI. Sclerae anicteric. Oral mucosa moist. Oropharynx clear. Neck: Supple. No JVD. Respiratory: Respirations are nonlabored and she is speaking in full sentences. Lungs are clear to auscultation bilaterally. Cardiovascular: Regular rate and rhythm with S1-S2. Soft murmur at the upper sternal border. Gastrointestinal: Abdomen is soft, nontender, and nondistended with positive bowel sounds. Skin: Warm and dry. No rash or lesions on limited exam. Extremities: No cyanosis or clubbing. Trace andrew ankle edema. Radial and pedal pulses intact. Negative Mercedes sign bilaterally. Neurological: Alert. Cranial nerves 2-12 are grossly intact. No gross focal deficits to casual conversation. Psychiatric: anxious looking Objective Data Vital Signs Vital Signs: Vital Signs - 24 hr 04/09/21 12:45 04/09/21 14:25 04/09/21 14:31 Temperature 97.6 F Pulse Rate 87 70 75 Respiratory Rate 22 H 15 12 Blood Pressure 166/79 H Pulse Oximetry 99 97 97 04/09/21 15:03 04/09/21 15:36 04/09/21 15:45 Temperature Pulse Rate 90 97 Respiratory Rate 12 22 H Blood Pressure Pulse Oximetry 99 96 98 04/09/21 16:08 04/09/21 16:15 04/09/21 16:18 Temperature Pulse Rate 93 92 87 Respiratory Rate 13 20 14 Blood Pressure 151/89 H Pulse Oximetry 97 97 98 04/09/21 16:19 04/09/21 16:30 04/09/21 16:32 Temperature Pulse Rate
[2021-04-10] MEDS: FLUTICASONE/SALMETEROL 115-21 MCG INHALER 1 PUFF 2 PUFF INHALATION (09:38)
[2021-04-10] MEDS: VALSARTAN 160 MG TABLET 320 MG PO (10:12)
[2021-04-10] MEDS: LORATADINE 10 MG TABLET PO (10:13)
[2021-04-10] MEDS: NEBIVOLOL HCL 5 MG TABLET 20 MG PO ×2 (10:14→21:59)
[2021-04-10] MEDS: amLODIPine BESYLATE 5 MG TABLET PO (10:16)
[2021-04-10] MEDS: ASPIRIN 81 MG ENTERIC TABLET PO (10:16)
[2021-04-10] MEDS: ATORVASTATIN 40 MG TABLET PO (10:17)
[2021-04-10] MEDS: CLOPIDOGREL BISULFATE 75 MG TABLET PO (10:17)
[2021-04-10] MEDS: hydrALAZINE HCL 50 MG TABLET PO ×4 (10:17→21:59)
[2021-04-10] MEDS: FOLIC ACID 1 MG TABLET PO (10:18)
[2021-04-10] MEDS: SPIRONOLACTONE 12.5 MG TABLET PO (10:18)
[2021-04-10] MEDS: EZETIMIBE 10 MG TABLET PO (10:18)
[2021-04-10] MEDS: FLUTICASONE PROPIONATE 0.05% NA SPR 16 GM BTL (*BKC) 1 SPRAY NASAL ×2 (10:19→17:33)
[2021-04-10] MEDS: oxyCODONE HCL (*CRX) 5 MG TAB IR PO ×2 (11:28→17:34)
[2021-04-10] MEDS: ISOSORBIDE MONONITRATE 30 MG TAB.ER.24H PO (12:15)
[2021-04-10] MEDS: FUROSEMIDE 40 MG TABLET PO (12:15)
[2021-04-10] MEDS: busPIRone HCL 10 MG TABLET PO ×2 (12:19→17:33)
--- NOTE | 2021-04-10 18:04 | PC.NURSE ---
Orders for med/tele- report called to [facility]- pt moved via bed to room 304 -2 via bed accompanied by staff- belongings with pt
--- NOTE | 2021-04-10 18:20 | PC.NURSE ---
This patient, Aracely Spear, was received from [ ] on 04/10/21 at 1805. Patient/family oriented to unit policies and routines
[2021-04-10] MEDS: MONTELUKAST SODIUM 10 MG TABLET PO (21:59)
[2021-04-11] VITALS (16 sets, daily range): BP systolic 92–149; BP diastolic 46–74; PULSE 60–79; RESP 16–18; TEMP 36.4–36.8; O2SAT 96–98
[2021-04-11] MEDS: oxyCODONE/ACETAMINOPHEN (*CRX) 5-325 MG TABLET 1 TABLET PO ×5 (00:07→23:03)
[2021-04-11] MEDS: oxyCODONE HCL (*CRX) 5 MG TAB IR PO ×5 (00:07→23:03)
--- NOTE | 2021-04-11 00:58 | PCRCNOTE ---
Window of time for administration has passed. See next scheduled administration.
[2021-04-11] MEDS: LEVOTHYROXINE SODIUM 88 MCG TABLET PO (05:50)
[2021-04-11] MEDS: FLUTICASONE/SALMETEROL 115-21 MCG INHALER 1 PUFF 2 PUFF INHALATION ×2 (08:07→19:46)
[2021-04-11] MEDS: ASPIRIN 81 MG ENTERIC TABLET PO (08:16)
[2021-04-11] MEDS: busPIRone HCL 10 MG TABLET PO (08:16)
[2021-04-11] MEDS: FOLIC ACID 1 MG TABLET PO (08:16)
[2021-04-11] MEDS: amLODIPine BESYLATE 5 MG TABLET PO (08:16)
[2021-04-11] MEDS: ATORVASTATIN 40 MG TABLET PO (08:16)
[2021-04-11] MEDS: FLUTICASONE PROPIONATE 0.05% NA SPR 16 GM BTL (*BKC) 1 SPRAY NASAL (08:16)
[2021-04-11] MEDS: CLOPIDOGREL BISULFATE 75 MG TABLET PO (08:16)
[2021-04-11] MEDS: EZETIMIBE 10 MG TABLET PO (08:16)
[2021-04-11] MEDS: SPIRONOLACTONE 12.5 MG TABLET PO (08:17)
[2021-04-11] MEDS: ISOSORBIDE MONONITRATE 30 MG TAB.ER.24H PO (08:17)
[2021-04-11] MEDS: LORATADINE 10 MG TABLET PO (08:17)
[2021-04-11] MEDS: PANTOPRAZOLE 40 MG TABLET PO (08:17)
[2021-04-11] MEDS: FUROSEMIDE 40 MG TABLET PO (08:17)
[2021-04-11] MEDS: VALSARTAN 160 MG TABLET 320 MG PO (08:17)
[2021-04-11] MEDS: Linaclotide [Linzess] 145 mcg capsule 145 EACH BY MOUTH (08:17)
[2021-04-11 09:34] LABS: Basophils Absolute Auto 0.1 K/mm3 (0.0-0.1); Basophils Percent Auto 0.6 % (0.2-1.2); Eosinophils Absolute Auto 0.2 K/mm3 (0-0.3); Eosinophils Percent Auto 1.5 % (0-4.4); Hematocrit 34.9 % (37.0-47.0); Hemoglobin 11.9 g/dL (12.0-15.0); Immature Granulocyte Absolute 0.05 K/mm3 (0.00-0.031); Immature Granulocyte Percent A 0.5 % (0-0.5); Lymphocytes Absolute Auto 3.34 K/mm3 (0.9-3.2); Lymphocytes Percent Auto 34.3 % (18.3-44.2); Mean Corpuscular HGB Conc 34.1 g/dl (32-36); Mean Corpuscular Hemoglobin 30.2 pg (26-34); Mean Corpuscular Volume 88.6 fl (80-100); Monocytes Absolute Auto 0.8 K/mm3 (0.1-0.6); Monocytes Percent Auto 7.7 % (2.6-8.5); Neutrophils Absolute Auto 5.4 K/mm3 (1.3-6.7); Neutrophils Percent Auto 55.4 % (45.5-73.1); Platelet Count Result 299 k/mm3 (150-375); Red Blood Count 3.94 M/mm3 (4.2-5.4); Red Cell Distribution Width 12.2 % (11.5-14.5); White Blood Count 9.7 K/mm3 (4.5-10.0)
[2021-04-11] MEDS: hydrALAZINE HCL 50 MG TABLET PO (09:34)
[2021-04-11] MEDS: NEBIVOLOL HCL 5 MG TABLET 20 MG PO (09:34)
[2021-04-11 09:42] LABS: Anion Gap 13 mmol/L (8-16); Blood Urea Nitrogen 15 mg/dL (7-17); Calcium 9.1 mg/dL (8.4-10.2); Carbon Dioxide 24 mmol/L (22-30); Chloride 92 mmol/L (98-107); Estimated Glomerular Filt Rate > 60; Glucose 207 mg/dL (65-110); Potassium 3.8 mmol/L (3.4-5.0); Sodium 129 mmol/L (137-145)
--- NOTE | 2021-04-11 17:14 | PM.IMPN ---
Progress Note: A&P Assessment and Plan (1) Dyspnea on exertion: Code(s): R06.00 - Dyspnea, unspecified Status: Acute (2) Chest pain: Code(s): R07.9 - Chest pain, unspecified Status: Acute (3) Coronary artery disease: Code(s): I25.10 - Atherosclerotic heart disease of [place] coronary artery without angina pectoris Status: Acute (4) Hypertension: Code(s): I10 - Essential (primary) hypertension Status: Acute (5) Gastroesophageal reflux disease: Code(s): K21.9 - Gastro-esophageal reflux disease without esophagitis Status: Acute (6) Hypothyroid: Code(s): E03.9 - Hypothyroidism, unspecified Status: Chronic (7) Hyperlipidemia: Code(s): E78.5 - Hyperlipidemia, unspecified Status: Chronic (8) Diet-controlled diabetes mellitus: Code(s): E11.9 - Type 2 diabetes mellitus without complications Status: Acute (9) Rheumatoid arthritis: Qualifiers: Rheumatoid arthritis location: hand Rheumatoid factor presence: unspecified presence Laterality: bilateral Qualified Code(s): M06.9 - Rheumatoid arthritis, unspecified Code(s): M06.9 - Rheumatoid arthritis, unspecified Status: Chronic (10) Chronic pain syndrome: Code(s): G89.4 - Chronic pain syndrome Status: Acute (11) Chronic, continuous use of opioids: Code(s): F11.90 - Opioid use, unspecified, uncomplicated Status: Acute Additional Plan dyspnea on exertion /chest tightnessCT chest negative for PE shows cardiomegaly. BNP elevated at 485 chest x-ray unremarkable does not sound like asthma exacerbation. reviewed cardiology recommendation continue with diuresis. Optimal blood pressure control with Guard[place] bit better today. Added on isosorbide mononitrate will keep hydralazine on hold. Echocardiogram reviewed which showed 2. Normal left ventricular size and thickness with overall good contractility of all segments. Estimated ejection fraction is 60-65%. No segmental wall motion abnormalities. Grade 2 diastolic dysfunction is present. Global longitudinal strain is mildly diminished at-17%, suggestive of mild left ventricular systolic dysfunction. 3. Left atrial chamber dimension is moderately enlarged. 4. There is mild tricuspid valve regurgitation. 5. No pulmonary hypertension, estimated pulmonary arterial systolic pressure is 29 mmHg. 6. Normal sinus rhythm. Mild hyponatremia History of coronary artery disease with balloon angioplasty of diagonal branch January 2018 Diabetes mellitus Hypertension ELVIRA noncompliant with Ca Pap Asthma Rheumatoid arthritis History of DVT anxiety disorder on buspirone does not take it on a regular basis advised to take it twice a day DVT prophylaxis SCDs Full code status Will order PT OT and pulmonary walk test to evaluate oxygen saturation upon ambulation Subjective Date/time seen: 04/11/21 17:14 Interval history: feels little better in terms of pursed breathing however does not feel like she is ready to go home. She feels like whenever she speaks for a long period time she gets winded and gets anxious. She reports fluctuating blood pressure at home Review of Systems Review of Systems: All systems reviewed & are unremarkable except as noted in HPI and below ( HPI) Exam Narrative: General: Well-developed elderly female sitting at the side of the bed in no distress. anxious looking HEENT: Normocephalic, atraumatic. PERRL, EOMI. Sclerae anicteric. Oral mucosa moist. Oropharynx clear. Neck: Supple. No JVD. Respiratory: Respirations are nonlabored and she is speaking in full sentences. Lungs are clear to auscultation bilaterally. Cardiovascular: Regular rate and rhythm with S1-S2. Soft murmur at the upper sternal border. Gastrointestinal: Abdomen is soft, nontender, and nondistended with positive bowel sounds. Skin: Warm and dry. No rash or lesions on limited exam. Extremities:
--- NOTE | 2021-04-11 17:37 | PM.PNCARD ---
Progress Note: A&P Assessment and Plan (1) Acute on chronic diastolic (congestive) heart failure: Code(s): I50.33 - Acute on chronic diastolic (congestive) heart failure Status: Acute Assessment and Plan: 76-year-old female with multiple medical problems -CAD with history of balloon angioplasty of diagonal branch in January 2018; diabetes mellitus, hypertension, ELVIRA not compliant with CPAP, asthma, rheumatoid arthritis, history of DVT. Patient presented to the hospital with worsening shortness of breath for about 1 week. She has baseline dyspnea on mild exertion associated with occasional chest pressure. EKG shows sinus rhythm, voltage criteria for LVH. No acute ST segment abnormality. Serial troponins are negative. NTproBNP is mildly elevated. Clinical presentation suggestive of acute on chronic CHF with preserved ejection fraction, based on previous echocardiogram . Patient has history of asthma/ bronchitis, which could be contributing to her symptoms of dyspnea. 1. Gentle diuresis with furosemide, monitor electrolytes and renal function. 2. Optimal blood pressure control, continue current antihypertensives. 3. Patient has history of CAD, and last catheterization from 07/06/2019 reported nonobstructive CAD with patent diagonal branch which previously had angioplasty. She has symptoms of chest pressure associated with shortness of breath. Continue antiplatelet treatment and statin. Add isosorbide mononitrate 30 mg p.o. daily. Monitor blood pressure. If blood pressure drops, then may discontinue hydralazine. Patient is currently on multiple antihypertensives . 4. echocardiogram from yesterday revealed normal systolic function with EF 60 65%. She does have grade 2 diastolic dysfunction. No pericardial effusion was noted. No valve pathology noted. 5. Continue to monitor on telemetry for now 6. Would recommend pulmonary consultation (2) Coronary artery disease: Code(s): I25.10 - Atherosclerotic heart disease of [place] coronary artery without angina pectoris Status: Acute Assessment and Plan: optimal, tolerable medical treatment as described above Subjective Date/time seen: 04/11/21 17:37 cardiology follow-up for CHF exacerbation Interval history: Date of service 04/11/2021: Patient states that she is feeling slightly better today. She does note that yesterday when she was talking in full sentences she became short of breath at the end of her sense. However, today she notices improvement in this symptom. I discussed the results of her echocardiogram with her and explained that she does not have a pericardial effusion that her left ventricular systolic function is normal. I did talk to her about her diastolic dysfunction. Review of Systems Review of Systems: All systems reviewed & are unremarkable except as noted in HPI and below Exam Const: General: comfortable and no acute distress HENMT: Head: normal to inspection Eyes: General: appearance normal, both eyes and all related structures Neck: Neck: supple and no JVD Resp: Effort & Inspection: normal respiratory effort Auscultation: clear to auscultation bilaterally and no crackles Cardio: Rate: regular rate Rhythm: regular rhythm GI: GI Palp: Yes Soft to palpation Auscultation: normal bowel sounds Skin: General skin exam: normal color Neuro: Cognition (Neuro): normal cognition Extrem: General: normal to inspection, edema and pedal edema Other: Arthritic changes noted in bilateral finger joints Psych: Mental Status: mental status grossly normal Affect: Anxious affect present Objective Data Vital Signs Vital Signs: Vital Signs - 24 hr 04/10/21 20:00 04/10/21 21:59 04/10/21 22:00 Temperature 36.3 C L Pulse Rate 101 H 85 69 Respiratory Rate 20 18 Blood Pressure 107/60 Pulse Oximetry 98 04/11/21 00:00 04/11/21 04:00 04/11/21 06:00 Temperature 36.8 C Pulse Rate 76 76 67 Respiratory Rate 18 Bl
--- NOTE | 2021-04-11 18:06 | PC.NURSE ---
Pt refused osito, Dr James notified
--- NOTE | 2021-04-11 18:08 | PC.NURSE ---
BP 100/60 Dr James notifed and hydralazine put on hold
[2021-04-11] MEDS: MONTELUKAST SODIUM 10 MG TABLET PO (23:04)
[2021-04-12] VITALS (9 sets, daily range): BP systolic 118–128; BP diastolic 49–66; PULSE 66–76; RESP 16–20; TEMP 36.2–37.2; O2SAT 96–98
[2021-04-12] MEDS: oxyCODONE/ACETAMINOPHEN (*CRX) 5-325 MG TABLET 1 TABLET PO ×3 (05:04→20:12)
[2021-04-12] MEDS: LEVOTHYROXINE SODIUM 88 MCG TABLET PO (05:04)
[2021-04-12] MEDS: oxyCODONE HCL (*CRX) 5 MG TAB IR PO ×3 (05:04→20:10)
[2021-04-12 06:55] LABS: Basophils Absolute Auto 0.1 K/mm3 (0.0-0.1); Basophils Percent Auto 0.4 % (0.2-1.2); Eosinophils Absolute Auto 0.2 K/mm3 (0-0.3); Eosinophils Percent Auto 1.3 % (0-4.4); Hematocrit 31.8 % (37.0-47.0); Hemoglobin 10.9 g/dL (12.0-15.0); Immature Granulocyte Absolute 0.05 K/mm3 (0.00-0.031); Immature Granulocyte Percent A 0.4 % (0-0.5); Lymphocytes Absolute Auto 3.13 K/mm3 (0.9-3.2); Lymphocytes Percent Auto 27.3 % (18.3-44.2); Mean Corpuscular HGB Conc 34.3 g/dl (32-36); Mean Corpuscular Hemoglobin 30.4 pg (26-34); Mean Corpuscular Volume 88.6 fl (80-100); Mean Platelet Volume 9.9 fl (7.4-10.4); Monocytes Absolute Auto 0.9 K/mm3 (0.1-0.6); Monocytes Percent Auto 7.7 % (2.6-8.5); Neutrophils Absolute Auto 7.2 K/mm3 (1.3-6.7); Neutrophils Percent Auto 62.9 % (45.5-73.1); Platelet Count Result 253 k/mm3 (150-375); Red Blood Count 3.59 M/mm3 (4.2-5.4); Red Cell Distribution Width 11.9 % (11.5-14.5); White Blood Count 11.5 K/mm3 (4.5-10.0)
[2021-04-12 07:04] LABS: Anion Gap 9 mmol/L (8-16); Blood Urea Nitrogen 20 mg/dL (7-17); Calcium 8.7 mg/dL (8.4-10.2); Carbon Dioxide 24 mmol/L (22-30); Chloride 91 mmol/L (98-107); Estimated Glomerular Filt Rate 54; Glucose 93 mg/dL (65-110); Potassium 3.6 mmol/L (3.4-5.0); Sodium 124 mmol/L (137-145)
[2021-04-12] MEDS: NEBIVOLOL HCL 5 MG TABLET 20 MG PO ×2 (08:19→20:13)
[2021-04-12] MEDS: ASPIRIN 81 MG ENTERIC TABLET PO (08:19)
[2021-04-12] MEDS: LORATADINE 10 MG TABLET PO (08:20)
[2021-04-12] MEDS: VALSARTAN 160 MG TABLET 320 MG PO (08:20)
[2021-04-12] MEDS: FOLIC ACID 1 MG TABLET PO (08:20)
[2021-04-12] MEDS: busPIRone HCL 10 MG TABLET PO ×2 (08:20→16:21)
[2021-04-12] MEDS: ISOSORBIDE MONONITRATE 30 MG TAB.ER.24H PO (08:20)
[2021-04-12] MEDS: CLOPIDOGREL BISULFATE 75 MG TABLET PO (08:20)
[2021-04-12] MEDS: FUROSEMIDE 40 MG TABLET PO (08:21)
[2021-04-12] MEDS: ATORVASTATIN 40 MG TABLET PO (08:22)
[2021-04-12] MEDS: EZETIMIBE 10 MG TABLET PO (08:22)
[2021-04-12] MEDS: PANTOPRAZOLE 40 MG TABLET PO (08:22)
[2021-04-12] MEDS: SPIRONOLACTONE 12.5 MG TABLET PO (08:22)
[2021-04-12] MEDS: amLODIPine BESYLATE 5 MG TABLET PO (08:22)
[2021-04-12] MEDS: Linaclotide [Linzess] 145 mcg capsule 145 EACH BY MOUTH (08:23)
[2021-04-12] MEDS: FLUTICASONE PROPIONATE 0.05% NA SPR 16 GM BTL (*BKC) 1 SPRAY NASAL ×2 (08:23→16:21)
[2021-04-12] MEDS: FLUTICASONE/SALMETEROL 115-21 MCG INHALER 1 PUFF 2 PUFF INHALATION ×2 (08:31→21:45)
--- NOTE | 2021-04-12 09:51 | PM.PNCARD ---
Progress Note: A&P Assessment and Plan (1) Acute on chronic diastolic (congestive) heart failure: Code(s): I50.33 - Acute on chronic diastolic (congestive) heart failure Status: Acute Assessment and Plan: 76-year-old female with multiple medical problems -CAD with history of balloon angioplasty of diagonal branch in January 2018; diabetes mellitus, hypertension, ELVIRA not compliant with CPAP, asthma, rheumatoid arthritis, history of DVT. Patient presented to the hospital with worsening shortness of breath for about 1 week. She has baseline dyspnea on mild exertion associated with occasional chest pressure. EKG shows sinus rhythm, voltage criteria for LVH. No acute ST segment abnormality. Serial troponins are negative. NTproBNP is mildly elevated. Clinical presentation suggestive of acute on chronic CHF with preserved ejection fraction, based on previous echocardiogram . Patient has history of asthma/ bronchitis, which could be contributing to her symptoms of dyspnea. 1. today her sodium has drifted down to 124. she appears euvolemic on physical exam. BUN 20, creatinine increased from 0.721. Currently receiving Lasix 40 mg p.o. daily. And concern that she is currently on the dry side and dehydrated. orthostatic vital signs shows no change in blood pressure with changing position. Recommend to hold the Lasix. Hydralazine was held yesterday. I would also hold the Lasix 40 mg daily. normal saline 250 cc over couple hours. 2. Optimal blood pressure control, continue current antihypertensives. 3. Patient has history of CAD, and last catheterization from 07/06/2019 reported nonobstructive CAD with patent diagonal branch which previously had angioplasty. She has symptoms of chest pressure associated with shortness of breath. Continue antiplatelet treatment and statin. Add isosorbide mononitrate 30 mg p.o. daily. Monitor blood pressure. 4. echocardiogram from yesterday revealed normal systolic function with EF 60 65%. She does have grade 2 diastolic dysfunction. No pericardial effusion was noted. No valve pathology noted. 5. Continue to monitor on telemetry for now 6. Would recommend pulmonary consultation (2) Coronary artery disease: Code(s): I25.10 - Atherosclerotic heart disease of [place] coronary artery without angina pectoris Status: Acute Assessment and Plan: optimal, tolerable medical treatment as described above Subjective Date/time seen: 04/12/2021 950am chief complaint shortness of breath Interval history: Date of service 04/12/2021: patient does not feel well today. She is feeling dizzy, lightheaded, nauseated. She feels fatigued. She denies lower limb edema. Review of [place] a sinus rhythm with occasional PACs. She is not orthostatic by blood pressure Review of Systems Review of Systems: All systems reviewed & are unremarkable except as noted in HPI and below Exam Narrative: PHYSICAL EXAMINATION: GENERAL: Alert, oriented, appears short of breath while talking MENTAL STATUS: anxious EYES: Extraocular movements intact, no pallor EARS: External ears appear normal, hearing grossly normal NOSE: Normal and patent, no discharge MOUTH: Mucous membranes moist, tongue normal NECK: Supple, no JVD CHEST: Good respiratory effort, clear to auscultation HEART: Normal rate, regular rhythm, distant heart sounds ABDOMEN: Soft, nontender NEUROLOGICAL: Alert, oriented, normal speech, no gross motor deficits MUSCULOSKELETAL: No major deformity, no amputation EXTREMITIES: No pedal edema, arthritic changes are seen in the fingers SKIN: no rash on the exposed area, no cyanosis PSYCHIATRIC: anxious Const: General: comfortable and no acute distress HENMT: Head: normal to inspection Eyes: General: appearance normal, both eyes and all related structures Neck: Neck: supple and no JVD Resp: Effort & Inspection: normal respiratory effort Auscultation: clear to auscult
[2021-04-12] MEDS: SODIUM CHLORIDE 0.9% IV 250 ML 125 ML IV CONT (10:45)
--- NOTE | 2021-04-12 13:13 | PM.IMPN ---
Progress Note: A&P Assessment and Plan (1) Dyspnea on exertion: Code(s): R06.00 - Dyspnea, unspecified Status: Acute (2) Chest pain: Code(s): R07.9 - Chest pain, unspecified Status: Acute (3) Coronary artery disease: Code(s): I25.10 - Atherosclerotic heart disease of [place] coronary artery without angina pectoris Status: Acute (4) Hypertension: Code(s): I10 - Essential (primary) hypertension Status: Acute (5) Gastroesophageal reflux disease: Code(s): K21.9 - Gastro-esophageal reflux disease without esophagitis Status: Acute (6) Hypothyroid: Code(s): E03.9 - Hypothyroidism, unspecified Status: Chronic (7) Hyperlipidemia: Code(s): E78.5 - Hyperlipidemia, unspecified Status: Chronic (8) Diet-controlled diabetes mellitus: Code(s): E11.9 - Type 2 diabetes mellitus without complications Status: Acute (9) Rheumatoid arthritis: Qualifiers: Rheumatoid arthritis location: hand Rheumatoid factor presence: unspecified presence Laterality: bilateral Qualified Code(s): M06.9 - Rheumatoid arthritis, unspecified Code(s): M06.9 - Rheumatoid arthritis, unspecified Status: Chronic (10) Chronic pain syndrome: Code(s): G89.4 - Chronic pain syndrome Status: Acute (11) Chronic, continuous use of opioids: Code(s): F11.90 - Opioid use, unspecified, uncomplicated Status: Acute Additional Plan dyspnea on exertion /chest tightnessCT chest negative for PE shows cardiomegaly. BNP elevated at 485 chest x-ray unremarkable does not sound like asthma exacerbation. reviewed cardiology recommendation continue with diuresis. Optimal blood pressure control with Guard[place] bit better today. Added on isosorbide mononitrate will keep hydralazine on hold. Echocardiogram reviewed which showed 2. Normal left ventricular size and thickness with overall good contractility of all segments. Estimated ejection fraction is 60-65%. No segmental wall motion abnormalities. Grade 2 diastolic dysfunction is present. Global longitudinal strain is mildly diminished at-17%, suggestive of mild left ventricular systolic dysfunction. 3. Left atrial chamber dimension is moderately enlarged. 4. There is mild tricuspid valve regurgitation. 5. No pulmonary hypertension, estimated pulmonary arterial systolic pressure is 29 mmHg. 6. Normal sinus rhythm. Mild hyponatremia this has worsened today. Could be from dehydration normal saline was ordered will recheck in the evening History of coronary artery disease with balloon angioplasty of diagonal branch January 2018 Diabetes mellitus Hypertension ELVIRA noncompliant with CPAP Asthma Rheumatoid arthritis History of DVT anxiety disorder on buspirone does not take it on a regular basis advised to take it twice a day DVT prophylaxis SCDs Full code status pulmonary consultation today as recommended by Cardiology Discussed about adding gabapentin for her chronic pain. She is agreeable to try Subjective Date/time seen: 04/12/21 13:13 Interval history: Patient does not feel too well today. She does not like to talk to me. She feels dizzy lightheaded and nauseated. She feels tired. Denies any chest pain left arm is sore from her IV line. Orthostatic vitals yesterday has been negative. However however her blood pressure has been lower than her presentation since adjustment of her medication. She hurts everywhere she states she has rheumatoid arthritis and takes oxycodone for that from her pain doctor Review of Systems Review of Systems: All systems reviewed & are unremarkable except as noted in HPI and below ( HPI) Exam Narrative: General: Well-developed elderly female anxious and in mild distress HEENT: Normocephalic, atraumatic. PERRL, EOMI. Sclerae anicteric. Oral mucosa moist. Oropharynx clear. Neck: Supple. No JVD. Respiratory: Respirations are nonlabored
--- NOTE | 2021-04-12 15:57 | PM.CNPUL ---
Assessment and Plan Assessment and plan (1) Dyspnea on exertion: Code(s): R06.00 - Dyspnea, unspecified Status: Acute Assessment and Plan: Patient with shortness of breath and dyspnea on exertion for over 50 years now worse in the last 1 year. Currently patient states she has dyspnea on exertion walking across the room. Being treated for grade II diastolic dysfunction by cardiology. CTA negative for PE. Patch infiltrates likely atelectasis without evidence of an active infection, ILD, cancer, or pleural disease currently. I will check a chest x-ray to exclude any changes while she has been in the hospital. Echo without pulmonary hypertension and normal RA and RV size. She has no significant nocturnal hypoxemia suggesting uncontrolled ELVIRA. A normal serum bicarb making hypercarbia an unlikley causse of her DOBBINS. I will check an resting room air ABG. She has no active wheezing or respiratory symptoms suggesting of an active astham exacerbation at this time currently on advair 115/21 at 2 puffs BID, Fluticasone nasal spray, montelukast 10 Q HS and Claritin 10 q.a.m. Resting room air saturations are 97% making hypoxia and unlikely cause for her dyspnea on exertion. I will order a home O2 assessment to exclude ambulatory hypoxia. Recommend continue current regimen. Will follow with you. History of Present Illness History of Present Illness Consult date: 04/12/21 Reason for consult: dyspnea Chief complaint: Chest pain, dyspnea Narrative: 76-year-old female with multiple medical problems who is unable to give me a coherent history. Her medical problems including possible asthma that is listed on her medical chart but never a problem that was addressed at her outpatient office meetings. I see report from PFT 12/23/2015 with FEV1 123%, airtrapping with DLCO 76%, on advair, montelukast, cetirizine and albuterol PRN. She tells me she has sleep apnea with a sleep study performed 30 years ago and was prescribed a CPAP but could never use it. Interestingly the patient had an overnight oximetry on room air on 04/11 demonstrating an average saturation of 95%, low saturation 92%, saturation less than or equal to 88% for 0 minutes. Of note the apnea-hypopnea index was 0.5 per hour and an echocardiogram on 04/10 with normal RA and RV size and PASP 29 niether of which which would not be consistent with current sleep apnea or untreated sleep apnea for 30 years, Rheumatoid arthritis (negative RF and CCP on 03/15/20, on methotrexate and adalimumab in past at [facility] 2017), history of DVT, chronic hyponatremia, coronary artery disease, hypertension, hyperlipidemia, diet-controlled diabetes, and chronic pain syndrome presented for SOB on 04/09/21. Treated for CHF although her cumulative ins and outs demonstrate she is positive 1.9 L. She was dizzy today and given fluid back. I entered the room and the patient was on room air in no respiratory distress and she was finishing up her dinner. I asked her what was bothering her and she said I have been dizzy and my blood pressure is an issue. She then asked me what kind of DrIshaan Maier was and I told her I was a lung doctor and she then started hyperventilating and with whispering and stating she was short of breath. She said she had chest tightness and could not take a deep breath in. It was interesting that when I asked her to take a deep breath in on physical exam she could take a deep breath in and had no respiratory limitations in her breathing. Currently she denies fever, chills, rigors, chronic cough, chronic phlegm production or hemoptysis. She states that at home she has difficulty at times breathing and walking and that this has gotten worse recently. She is maintained on Advair 250-50 at home. Patient is a never smoker, she was exposed to secondhand smoke from her father and her who quit 8 years ago. Patient denies vaping, illicit drug use, sandblasting, welding, asbes
[2021-04-12] MEDS: GABAPENTIN 100 MG CAPSULE PO (16:21)
[2021-04-12 18:51] LABS: Alveolar/Arterial O2 Gradient 1.3 mmHg; Base Excess ABG 1.3 mEq/l (+/-2.0); Fractional Inspired Oxygen 21 %; HCO3 ABG 24.4 mEq/l (22.0-26.0); Oxygen Content ABG 15.4 %vol (16.0-22.0); Oxygen Saturation ABG 98.3 % (95.0-100.0); Oxyhemoglobin 96.6 % THb (90.0-100.0); PO2 ABG 108.9 mmHg (80.0-100.0); PO2 FiO2 Ratio Arterial Blood 5.19 %; Total Hemoglobin 11.2 g/dL (12.0-18.0); pH ABG 7.486 (7.350-7.450)
[2021-04-12 18:52] LABS: Device ROOM AIR; Site Drawn LEFT BRACHIAL
[2021-04-12 19:56] LABS: Sodium 123 mmol/L (137-145)
[2021-04-12] MEDS: MONTELUKAST SODIUM 10 MG TABLET PO (20:08)
[2021-04-13] VITALS (10 sets, daily range): BP systolic 104–152; BP diastolic 50–72; PULSE 46–89; RESP 17–20; TEMP 36.4–36.8; O2SAT 96–98
[2021-04-13] MEDS: oxyCODONE/ACETAMINOPHEN (*CRX) 5-325 MG TABLET 1 TABLET PO ×3 (05:13→18:23)
[2021-04-13] MEDS: oxyCODONE HCL (*CRX) 5 MG TAB IR PO ×3 (05:14→18:22)
[2021-04-13] MEDS: LEVOTHYROXINE SODIUM 88 MCG TABLET PO (05:45)
[2021-04-13 06:38] LABS: Basophils Absolute Auto 0.1 K/mm3 (0.0-0.1); Basophils Percent Auto 0.7 % (0.2-1.2); Eosinophils Absolute Auto 0.1 K/mm3 (0-0.3); Eosinophils Percent Auto 1.9 % (0-4.4); Hematocrit 30.7 % (37.0-47.0); Hemoglobin 10.6 g/dL (12.0-15.0); Immature Granulocyte Absolute 0.03 K/mm3 (0.00-0.031); Immature Granulocyte Percent A 0.4 % (0-0.5); Lymphocytes Absolute Auto 3.14 K/mm3 (0.9-3.2); Lymphocytes Percent Auto 41.8 % (18.3-44.2); Mean Corpuscular HGB Conc 34.5 g/dl (32-36); Mean Corpuscular Hemoglobin 29.9 pg (26-34); Mean Corpuscular Volume 86.5 fl (80-100); Monocytes Absolute Auto 0.7 K/mm3 (0.1-0.6); Monocytes Percent Auto 9.2 % (2.6-8.5); Neutrophils Absolute Auto 3.5 K/mm3 (1.3-6.7); Platelet Count Result 246 k/mm3 (150-375); Red Blood Count 3.55 M/mm3 (4.2-5.4); Red Cell Distribution Width 11.8 % (11.5-14.5); White Blood Count 7.5 K/mm3 (4.5-10.0)
[2021-04-13 06:50] LABS: Anion Gap 9 mmol/L (8-16); Blood Urea Nitrogen 18 mg/dL (7-17); Calcium 8.9 mg/dL (8.4-10.2); Carbon Dioxide 27 mmol/L (22-30); Chloride 89 mmol/L (98-107); Estimated Glomerular Filt Rate > 60; Glucose 98 mg/dL (65-110); Potassium 3.8 mmol/L (3.4-5.0); Sodium 125 mmol/L (137-145)
--- NOTE | 2021-04-13 07:14 | PM.PNPUL ---
Progress Note: A&P Assessment and Plan (1) Dyspnea on exertion: Code(s): R06.00 - Dyspnea, unspecified Status: Acute Assessment and Plan: 04/10 Patient with shortness of breath and dyspnea on exertion for over 50 years now worse in the last 1 year. Currently patient states she has dyspnea on exertion walking across the room. Being treated for grade II diastolic dysfunction by cardiology. CTA negative for PE. Patch infiltrates likely atelectasis without evidence of an active infection, ILD, cancer, or pleural disease currently. I will check a chest x-ray to exclude any changes while she has been in the hospital. Echo without pulmonary hypertension and normal RA and RV size. She has no significant nocturnal hypoxemia on overnight oximetry suggesting uncontrolled ELVIRA. A normal serum bicarb making hypercarbia an unlikley causse of her DOBBINS. I will check an resting room air ABG. She has no active wheezing or respiratory symptoms suggesting of an active astham exacerbation at this time currently on advair 115/21 at 2 puffs BID, Fluticasone nasal spray, montelukast 10 Q HS and Claritin 10 q.a.m. Resting room air saturations are 97% making hypoxia and unlikely cause for her dyspnea on exertion. I will order a home O2 assessment to exclude ambulatory hypoxia. Recommend continue current regimen. 04/13 I Ordered a chest x-ray yesterday that demonstrated no acute abnormalities (no acute changes accounting for DOBBINS). I ordered a room air blood gas that demonstrated a pH of 7.49/33/109 excluding hypercarbia. Saturations are 96% on room air she has no wheezing on exam. At this time I am uncertain of the etiology of her DOBBINS. We have excluded pneumonia, PE, cancer, ILD, pleural disease, hypercarbia, hypoxemia at rest, uncontrolled ELVIRA, and pulmonary hypertension. She may have asthma although I am also not convinced she has this disease and will need additional outpatient testing to assess (PFT and methacholine challenge). She should have a repeat out patient slepep study as well to formally exclude ELVIRA. She may be deconditioned and may also have a component of anxiety. Suitable for discharge from pulmonary perspective on these pulmonary medications: Advair 250/50 at 1 puff BID rescue albuterol 2 puffs Q 4 HR PRN SOB and wheezing cetirizine 10 mg PO Q day Montelukast 10 mg PO Q day Fluticasone nasal spray 2 puffs Q day Oxygen per home O2 assessment ( I ordered this test yesterday) Follow up in pulmonary clinic in 4 weeks, I gave her our business card. Call with any questions Subjective Date/time seen: 04/13/21 07:14 Interval history: 04/12 76-year-old female with multiple medical problems who is unable to give me a coherent history. She rambles and is unable to stay focus on questions then gets frustrated and says Honey I just don't know, I'm trying my best Her medical problems including possible asthma that is listed on her medical chart but never a problem that was addressed at her outpatient office meetings. I see report from PFT 12/23/2015 with FEV1 123%, airtrapping with DLCO 76%, on advair, montelukast, cetirizine and albuterol PRN. She tells me she has sleep apnea with a sleep study performed 30 years ago and was prescribed a CPAP but could never use it. Interestingly the patient had an overnight oximetry on room air on 04/11 demonstrating an average saturation of 95%, low saturation 92%, saturation less than or equal to 88% for 0 minutes. Of note the apnea-hypopnea index was 0.5 per hour and an echocardiogram on 04/10 with normal RA and RV size and PASP 29 niether of which which would not be consistent with current sleep apnea or untreated sleep apnea for 30 years, Rheumatoid arthritis (negative RF and CCP on 03/15/20, on methotrexate and adalimumab in past at [facility] 2017), history of DVT, chronic hyponatremia, coronary artery disease, hypertension, hyperlipidemia, diet-controlled diabetes, and chronic pain syndro
[2021-04-13] MEDS: FLUTICASONE/SALMETEROL 115-21 MCG INHALER 1 PUFF 2 PUFF INHALATION ×2 (08:10→20:00)
[2021-04-13] MEDS: ATORVASTATIN 40 MG TABLET PO (08:48)
[2021-04-13] MEDS: GABAPENTIN 100 MG CAPSULE PO ×3 (08:48→17:40)
[2021-04-13] MEDS: SPIRONOLACTONE 12.5 MG TABLET PO (08:49)
[2021-04-13] MEDS: CLOPIDOGREL BISULFATE 75 MG TABLET PO (08:49)
[2021-04-13] MEDS: PANTOPRAZOLE 40 MG TABLET PO (08:49)
[2021-04-13] MEDS: busPIRone HCL 10 MG TABLET PO ×2 (08:49→17:40)
[2021-04-13] MEDS: EZETIMIBE 10 MG TABLET PO (08:49)
[2021-04-13] MEDS: amLODIPine BESYLATE 5 MG TABLET PO (08:49)
[2021-04-13] MEDS: ASPIRIN 81 MG ENTERIC TABLET PO (08:49)
[2021-04-13] MEDS: FLUTICASONE PROPIONATE 0.05% NA SPR 16 GM BTL (*BKC) 1 SPRAY NASAL ×2 (08:50→17:39)
[2021-04-13] MEDS: FOLIC ACID 1 MG TABLET PO (08:50)
[2021-04-13] MEDS: LORATADINE 10 MG TABLET PO (08:50)
[2021-04-13] MEDS: ISOSORBIDE MONONITRATE 30 MG TAB.ER.24H PO (08:50)
[2021-04-13] MEDS: Linaclotide [Linzess] 145 mcg capsule 145 EACH BY MOUTH (08:50)
--- NOTE | 2021-04-13 10:07 | PCRCNOTE ---
HOME O2 EVAL ATTEMPTED, SAO2 96% ROOM AIR AT REST. PT DECLINED WALK DUE TO HIP PAIN. WILL ATTEMPT LATER TODAY.
[2021-04-13] MEDS: VALSARTAN 160 MG TABLET PO (10:33)
--- NOTE | 2021-04-13 10:49 | PM.PNCARD ---
Progress Note: A&P Time Spent With Patient Time: 76-year-old lady with: History of coronary artery disease remote history of stenting of the diagonal branch of her LAD. She entered the hospital a couple of days ago with some shortness of breath that was attributed to diastolic heart failure. On review the chart it does not appear there was substantial evidence of volume overload even at the time of admission she did not have any edema and had a clear looking chest x-ray. She became somewhat pre renal with furosemide which is the expected response to diuresis in this setting. I do not believe that her complaints of shortness of breath 0 have anything to do with diastolic heart failure. She does have diastolic dysfunction on echo but once again was non volume overload overloaded at the time of admission. This point I would continue her previous regimen but I do not have any additional cardiac recommendations to make. Gumaro Gacsa MD [facility] Subjective Date/time seen: Date of service:04/13/21 10:49 Interval history: Date of service 04/12/2021: patient does not feel well today. She is feeling dizzy, lightheaded, nauseated. She feels fatigued. She denies lower limb edema. Review of [place] a sinus rhythm with occasional PACs. She is not orthostatic by blood pressure Date of service 04/13/2021: Patient is asymptomatic does not have any symptoms at rest. No shortness of breath. Exam Narrative: PHYSICAL EXAMINATION: GENERAL: Alert, oriented, appears short of breath while talking MENTAL STATUS: anxious EYES: Extraocular movements intact, no pallor EARS: External ears appear normal, hearing grossly normal NOSE: Normal and patent, no discharge MOUTH: Mucous membranes moist, tongue normal NECK: Supple, no JVD CHEST: Good respiratory effort, clear to auscultation HEART: Normal rate, regular rhythm, distant heart sounds ABDOMEN: Soft, nontender NEUROLOGICAL: Alert, oriented, normal speech, no gross motor deficits MUSCULOSKELETAL: No major deformity, no amputation EXTREMITIES: No pedal edema, arthritic changes are seen in the fingers SKIN: no rash on the exposed area, no cyanosis PSYCHIATRIC: anxious Const: General: comfortable and no acute distress HENMT: Head: normal to inspection Eyes: General: appearance normal, both eyes and all related structures Neck: Neck: supple and no JVD Resp: Effort & Inspection: normal respiratory effort Auscultation: clear to auscultation bilaterally and no crackles Cardio: Rate: regular rate Rhythm: regular rhythm GI: Auscultation: normal bowel sounds Skin: General skin exam: normal color Neuro: Cognition (Neuro): normal cognition Extrem: General: normal to inspection, edema and pedal edema Other: Arthritic changes noted in bilateral finger joints Psych: Mental Status: mental status grossly normal Affect: Anxious affect present Objective Data Vital Signs Vital Signs: Vital Signs - 24 hr 04/12/21 14:00 04/12/21 20:13 04/12/21 21:04 Temperature 37.2 C 36.2 C L Pulse Rate 69 68 68 Respiratory Rate 20 16 Blood Pressure 118/66 126/49 L Pulse Oximetry 97 98 04/13/21 05:16 04/13/21 08:47 04/13/21 10:30 Temperature 36.8 C 36.4 C Pulse Rate 65 46 L 66 Respiratory Rate 17 Blood Pressure 126/72 122/71 Pulse Oximetry 96 96 Intake/Output Intake/Output: Intake & Output 04/10/21 04/11/21 04/12/21 04/13/21 23:59 23:59 23:59 23:59 Intake Total 1360 2480 1630 490 Output Total 1500 1180 1200 Balance -140 1300 430 490 Meds/Results Medications: Active Medications Generic Name Dose Route Start Last Admin Trade Name Freq PRN Reason Stop Dose Admin Albuterol 1 puff 04/09/21 22:41 Albuterol Sulfate (*Sp) Aerosol 1 Puff INHALATION Q4H PRN Wheezing Amlodipine Besylate 5 mg 04/10/21 09:00 04/13/21 08:49 Amlodipine Besylate 5 Mg Tablet PO 5 mg DAILY GINO Administration Aspirin 81 mg 0
--- NOTE | 2021-04-13 11:36 | HOMEO2EVAL ---
Evaluation was performed at [facility] Home Oxygen Evaluation RC: Home Oxygen (O2) Evaluation Start: 04/13/21 08:00 Freq: ONCE Status: Active Protocol: RPE Activity Type Activity Date Activity User E-Sign Co-Sign Detail Recorded Client Recorded Date Recorded By Document 04/13/21 11:05 DJO [id number] 04/13/21 11:35 DJO Document 04/13/21 11:10 [email or web address] [id number] 04/13/21 11:35 DJO Document 04/13/21 11:30 [email or web address] [id number] 04/13/21 11:35 DJO 04/13/21 04/13/21 04/13/21 11:05 11:10 11:30 Home O2 Evaluation Test Phase Resting Exercise Resting Oxygen Delivery Room Air Room Air Room Air Pulse Oximetry (90-100 %) 96 97 96 Pulse Rate (60-100 beats/min) 66 89 68 Activity Tolerance Fair Rating of Perceived Dyspnea (PD) +2 Mild, Some Difficulty, Noticeable to the Observer Ambulation Distance (feet) 500 Treatment Charges O2 Evaluation - Inpatient
--- NOTE | 2021-04-13 11:36 | PCRCNOTE ---
HOME O2 EVAL COMPLETE, NO REQUIREMENTS
--- NOTE | 2021-04-13 13:42 | PM.IMPN ---
Progress Note: A&P Assessment and Plan (1) Dyspnea on exertion: Code(s): R06.00 - Dyspnea, unspecified Status: Acute (2) Chest pain: Code(s): R07.9 - Chest pain, unspecified Status: Acute (3) Coronary artery disease: Code(s): I25.10 - Atherosclerotic heart disease of [place] coronary artery without angina pectoris Status: Acute (4) Hypertension: Code(s): I10 - Essential (primary) hypertension Status: Acute (5) Gastroesophageal reflux disease: Code(s): K21.9 - Gastro-esophageal reflux disease without esophagitis Status: Acute (6) Hypothyroid: Code(s): E03.9 - Hypothyroidism, unspecified Status: Chronic (7) Hyperlipidemia: Code(s): E78.5 - Hyperlipidemia, unspecified Status: Chronic (8) Diet-controlled diabetes mellitus: Code(s): E11.9 - Type 2 diabetes mellitus without complications Status: Acute (9) Rheumatoid arthritis: Qualifiers: Rheumatoid arthritis location: hand Rheumatoid factor presence: unspecified presence Laterality: bilateral Qualified Code(s): M06.9 - Rheumatoid arthritis, unspecified Code(s): M06.9 - Rheumatoid arthritis, unspecified Status: Chronic (10) Chronic pain syndrome: Code(s): G89.4 - Chronic pain syndrome Status: Acute (11) Chronic, continuous use of opioids: Code(s): F11.90 - Opioid use, unspecified, uncomplicated Status: Acute Additional Plan dyspnea on exertion /chest tightnessCT chest negative for PE shows cardiomegaly. BNP elevated at 485 chest x-ray unremarkable does not sound like asthma exacerbation. reviewed cardiology recommendation continue with diuresis. Optimal blood pressure control with [place] bit better today. Added on isosorbide mononitrate will keep hydralazine on hold. Echocardiogram reviewed which showed 2. Normal left ventricular size and thickness with overall good contractility of all segments. Estimated ejection fraction is 60-65%. No segmental wall motion abnormalities. Grade 2 diastolic dysfunction is present. Global longitudinal strain is mildly diminished at-17%, suggestive of mild left ventricular systolic dysfunction. 3. Left atrial chamber dimension is moderately enlarged. 4. There is mild tricuspid valve regurgitation. 5. No pulmonary hypertension, estimated pulmonary arterial systolic pressure is 29 mmHg. 6. Normal sinus rhythm. Mild hyponatremia this has worsened today. Could be from dehydration normal saline was ordered looks euvolemic likely due to SIADH. Slightly better today will continue to monitor History of coronary artery disease with balloon angioplasty of diagonal branch January 2018 Diabetes mellitus Hypertension ELVIRA noncompliant with CPAP Asthma Rheumatoid arthritis History of DVT anxiety disorder on buspirone does not take it on a regular basis advised to take it twice a day DVT prophylaxis SCDs Full code status pulmonary consultation today as recommended by Cardiology Discussed about adding gabapentin for her chronic pain. She is agreeable to try. Improved pain after we started on gabapentin she also looks less anxious today. She work with therapy today and suggested home health at discharge. She has a administrative services specialist for her demented at home. Discussed with Pulmonary possible asthma she will need a PFT with methacholine challenge at the outpatient basis she is going to follow-up with Dr. Mccann in 4 weeks upon discharge Labs in a.m. Subjective Date/time seen: 04/13/21 13:42 Interval history: Work with the therapy today did well. He feels less lightheaded today. She denies any shortness of breath at rest but she states she gets winded when she ambulates and has to take frequent breaks. No chest pain reported. She has underlying rheumatoid arthritis and takes oxycodone for her pain from her pain specialist. Discussed with Pulmonary earlier today Review of Systems R
[2021-04-13] MEDS: MONTELUKAST SODIUM 10 MG TABLET PO (20:16)
[2021-04-13] MEDS: NEBIVOLOL HCL 5 MG TABLET 20 MG PO (20:16)
[2021-04-14] VITALS (7 sets, daily range): BP systolic 132–147; BP diastolic 47–72; PULSE 55–74; RESP 18; TEMP 36.6–36.9; O2SAT 95–99
[2021-04-14] MEDS: oxyCODONE/ACETAMINOPHEN (*CRX) 5-325 MG TABLET 1 TABLET PO ×3 (05:29→18:01)
[2021-04-14] MEDS: oxyCODONE HCL (*CRX) 5 MG TAB IR PO ×3 (05:30→18:01)
[2021-04-14] MEDS: LEVOTHYROXINE SODIUM 88 MCG TABLET PO (05:31)
[2021-04-14 05:37] LABS: Basophils Absolute Auto 0.1 K/mm3 (0.0-0.1); Basophils Percent Auto 0.4 % (0.2-1.2); Eosinophils Absolute Auto 0.2 K/mm3 (0-0.3); Eosinophils Percent Auto 1.3 % (0-4.4); Hematocrit 33.5 % (37.0-47.0); Hemoglobin 11.5 g/dL (12.0-15.0); Immature Granulocyte Absolute 0.08 K/mm3 (0.00-0.031); Immature Granulocyte Percent A 0.5 % (0-0.5); Lymphocytes Absolute Auto 3.57 K/mm3 (0.9-3.2); Lymphocytes Percent Auto 24.4 % (18.3-44.2); Mean Corpuscular HGB Conc 34.3 g/dl (32-36); Mean Corpuscular Hemoglobin 30.3 pg (26-34); Mean Corpuscular Volume 88.2 fl (80-100); Mean Platelet Volume 9.6 fl (7.4-10.4); Neutrophils Absolute Auto 9.7 K/mm3 (1.3-6.7); Neutrophils Percent Auto 66.4 % (45.5-73.1); Platelet Count Result 253 k/mm3 (150-375); Red Cell Distribution Width 11.9 % (11.5-14.5); White Blood Count 14.6 K/mm3 (4.5-10.0)
[2021-04-14 05:50] LABS: Anion Gap 10 mmol/L (8-16); Blood Urea Nitrogen 19 mg/dL (7-17); Calcium 9.4 mg/dL (8.4-10.2); Carbon Dioxide 26 mmol/L (22-30); Chloride 89 mmol/L (98-107); Estimated Glomerular Filt Rate > 60; Glucose 95 mg/dL (65-110); Potassium 4.3 mmol/L (3.4-5.0); Sodium 125 mmol/L (137-145)
[2021-04-14] MEDS: FLUTICASONE/SALMETEROL 115-21 MCG INHALER 1 PUFF 2 PUFF INHALATION ×2 (08:54→20:44)
[2021-04-14] MEDS: CLOPIDOGREL BISULFATE 75 MG TABLET PO (08:58)
[2021-04-14] MEDS: SPIRONOLACTONE 12.5 MG TABLET PO (08:58)
[2021-04-14] MEDS: VALSARTAN 160 MG TABLET PO (08:58)
[2021-04-14] MEDS: LORATADINE 10 MG TABLET PO (08:58)
[2021-04-14] MEDS: busPIRone HCL 10 MG TABLET PO ×2 (08:58→18:02)
[2021-04-14] MEDS: PANTOPRAZOLE 40 MG TABLET PO (08:58)
[2021-04-14] MEDS: ASPIRIN 81 MG ENTERIC TABLET PO (08:58)
[2021-04-14] MEDS: GABAPENTIN 100 MG CAPSULE PO ×3 (08:58→18:02)
[2021-04-14] MEDS: ATORVASTATIN 40 MG TABLET PO (08:58)
[2021-04-14] MEDS: ISOSORBIDE MONONITRATE 30 MG TAB.ER.24H PO (08:58)
[2021-04-14] MEDS: FOLIC ACID 1 MG TABLET PO (08:59)
[2021-04-14] MEDS: EZETIMIBE 10 MG TABLET PO (08:59)
[2021-04-14] MEDS: amLODIPine BESYLATE 5 MG TABLET PO (08:59)
[2021-04-14] MEDS: Linaclotide [Linzess] 145 mcg capsule 145 EACH BY MOUTH (09:00)
[2021-04-14] MEDS: NEBIVOLOL HCL 5 MG TABLET 20 MG PO ×2 (09:00→20:45)
[2021-04-14] MEDS: FLUTICASONE PROPIONATE 0.05% NA SPR 16 GM BTL (*BKC) 1 SPRAY NASAL ×2 (09:00→18:02)
--- NOTE | 2021-04-14 12:10 | PM.PNCARD ---
Progress Note: A&P Additional Plan a 76-year-old lady with: Limiting exertional shortness of breath no obvious anginal chest pain but this symptom appears to be unexplained at this point. As I said in my previous note I really do not think the patient had any physical exam evidence of decompensated heart failure. I suppose I am going to recommend an ischemia evaluation with a Lexiscan nuclear stress test since she does have history of coronary disease and I suppose we should ensure that these are not symptoms of an ischemic nature. If she remains in the hospital I will arrange for this testing to be done on Friday Gumaro Gasca MD [facility] Time Spent With Patient Time: exertional Subjective Date/time seen: date of service:04/14/21 12:10 Interval history: 76-year-old lady admitted with : Exertional shortness of breath felt to have diastolic heart failure on admission a few days ago but in retrospect I doubt this diagnosis since none of the evidence looks like this lady was significantly volume overloaded and she did not improve with diuresis. She looks okay at rest but still reports shortness of breath with modest activity. Therapy [place] and she only makes it a short distance before she has to stop. He does have history of coronary artery disease and I indicated to the patient that this is somewhat concerning that this could be an ischemia Equivalent. Exam Const: General: comfortable and no acute distress Other: elderly white female appears to be in no distress seated at her bedside table eating her lunch HENMT: Mouth: Yes moist mucous membranes Eyes: Sclera: sclerae normal Pupils: Equal, round and reactive pupils present Neck: Neck: supple and no JVD Thyroid: thyroid normal Resp: Effort & Inspection: normal respiratory effort Auscultation: clear to auscultation bilaterally Cardio: Rate: regular rate Rhythm: regular rhythm GI: GI Palp: Yes Soft to palpation Skin: General skin exam: normal color Neuro: Cognition (Neuro): normal cognition Objective Data Vital Signs Vital Signs: Vital Signs - 24 hr 04/13/21 14:00 04/13/21 20:00 04/13/21 20:16 Temperature 36.7 C Pulse Rate 74 70 62 Respiratory Rate 20 20 Blood Pressure 104/54 L Pulse Oximetry 98 97 04/13/21 21:58 04/14/21 06:00 04/14/21 08:55 Temperature 36.8 C 36.9 C Pulse Rate 70 74 Respiratory Rate 20 18 Blood Pressure 111/50 L 147/47 H Pulse Oximetry 97 99 95 04/14/21 09:00 Temperature Pulse Rate 64 Respiratory Rate Blood Pressure Pulse Oximetry Intake/Output Intake/Output: Intake & Output 04/11/21 04/12/21 04/13/21 04/14/21 23:59 23:59 23:59 23:59 Intake Total 2480 1630 1760 800 Output Total 1180 1200 1250 1800 Balance 1300 430 510 -1000 Meds/Results Medications: Active Medications Generic Name Dose Route Start Last Admin Trade Name Freq PRN Reason Stop Dose Admin Albuterol 1 puff 04/09/21 22:41 Albuterol Sulfate (*Sp) Aerosol 1 Puff INHALATION Q4H PRN Wheezing Amlodipine Besylate 5 mg 04/10/21 09:00 04/14/21 08:59 Amlodipine Besylate 5 Mg Tablet PO 5 mg DAILY GINO Administration Aspirin 81 mg 04/10/21 09:00 04/14/21 08:58 Aspirin 81 Mg Enteric Tablet PO 81 mg DAILY GINO Administration Atorvastatin Calcium 40 mg 04/10/21 09:00 04/14/21 08:58 Atorvastatin 40 Mg Tablet PO 40 mg DAILY GINO Administration Buspirone HCl 10 mg 04/11/21 17:00 04/14/21 08:58 Buspirone Hcl 10 Mg Tablet PO 10 mg BID GINO Administration Clopidogrel Bisulfate 75 mg 04/10/21 09:00 04/14/21 08:58 Clopidogrel Bisulfate 75 Mg Tablet PO 75 mg DAILY GINO Administration Ezetimibe 10 mg 04/10/21 09:00 04/14/21 08:59 Ezetimibe 10 Mg Tablet PO 10 mg DAILY GINO Administration Fluticasone Propionate 1 spray 04/10/21 09:00 04/14/21 09:00 Fluticasone Propionate 0.05% Na Spr 16 Gm Btl (*Bkc) NASAL 1 spray BID [facility]
--- NOTE | 2021-04-14 13:39 | PM.IMPN ---
Progress Note: A&P Assessment and Plan (1) Dyspnea on exertion: Code(s): R06.00 - Dyspnea, unspecified Status: Acute (2) Chest pain: Code(s): R07.9 - Chest pain, unspecified Status: Acute (3) Coronary artery disease: Code(s): I25.10 - Atherosclerotic heart disease of [place] coronary artery without angina pectoris Status: Acute (4) Hypertension: Code(s): I10 - Essential (primary) hypertension Status: Acute (5) Gastroesophageal reflux disease: Code(s): K21.9 - Gastro-esophageal reflux disease without esophagitis Status: Acute (6) Hypothyroid: Code(s): E03.9 - Hypothyroidism, unspecified Status: Chronic (7) Hyperlipidemia: Code(s): E78.5 - Hyperlipidemia, unspecified Status: Chronic (8) Diet-controlled diabetes mellitus: Code(s): E11.9 - Type 2 diabetes mellitus without complications Status: Acute (9) Rheumatoid arthritis: Qualifiers: Rheumatoid arthritis location: hand Rheumatoid factor presence: unspecified presence Laterality: bilateral Qualified Code(s): M06.9 - Rheumatoid arthritis, unspecified Code(s): M06.9 - Rheumatoid arthritis, unspecified Status: Chronic (10) Chronic pain syndrome: Code(s): G89.4 - Chronic pain syndrome Status: Acute (11) Chronic, continuous use of opioids: Code(s): F11.90 - Opioid use, unspecified, uncomplicated Status: Acute Additional Plan dyspnea on exertion /chest tightnessCT chest negative for PE shows cardiomegaly. BNP elevated at 485 chest x-ray unremarkable does not sound like asthma exacerbation. reviewed cardiology recommendation continue with diuresis. Optimal blood pressure control with Guardado bit better today. Added on isosorbide mononitrate will keep hydralazine on hold. Echocardiogram reviewed which showed 2. Normal left ventricular size and thickness with overall good contractility of all segments. Estimated ejection fraction is 60-65%. No segmental wall motion abnormalities. Grade 2 diastolic dysfunction is present. Global longitudinal strain is mildly diminished at-17%, suggestive of mild left ventricular systolic dysfunction. 3. Left atrial chamber dimension is moderately enlarged. 4. There is mild tricuspid valve regurgitation. 5. No pulmonary hypertension, estimated pulmonary arterial systolic pressure is 29 mmHg. 6. Normal sinus rhythm. Mild hyponatremia this has worsened since admission. Could be from dehydration normal saline was ordered looks euvolemic likely due to SIADH. Slightly better and remains stable History of coronary artery disease with balloon angioplasty of diagonal branch January 2018 Diabetes mellitus Hypertension ELVIRA noncompliant with CPAP Asthma Rheumatoid arthritis History of DVT anxiety disorder on buspirone does not take it on a regular basis advised to take it twice a day DVT prophylaxis SCDs Full code status pulmonary consultation as recommended by Cardiology Discussed about adding gabapentin for her chronic pain. She is agreeable to try. Improved pain after we started on gabapentin she also looks less anxious today. She work with therapy today and suggested home health at discharge. 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 Discussed with Pulmonary possible asthma she will need a PFT with methacholine challenge at the outpatient basis she is going to follow-up with Dr. Mccann in 4 weeks upon discharge Labs in a.m. 04/14 discussed with cardiology still has exertional shortness of breath. Cardiology planning for ischemic evaluation with a stress test on Friday. Follow-up with pulmonary as an outpatient basis for formal PFT with methacholine challenge in 4 weeks. Hyponatremia stable today WBC count up but no signs of infection noted does not look volume overloaded or any evidence of congestive heart failure. Started on gabapentin for her chronic pain which she is tolerat
[2021-04-14] MEDS: MONTELUKAST SODIUM 10 MG TABLET PO (20:45)
[2021-04-15] VITALS (8 sets, daily range): BP systolic 122–138; BP diastolic 52–70; PULSE 62–77; RESP 16–18; TEMP 36.6; O2SAT 96–100
[2021-04-15] MEDS: oxyCODONE/ACETAMINOPHEN (*CRX) 5-325 MG TABLET 1 TABLET PO ×4 (01:13→19:23)
[2021-04-15] MEDS: oxyCODONE HCL (*CRX) 5 MG TAB IR PO ×4 (01:13→19:22)
[2021-04-15 06:03] LABS: Basophils Absolute Auto 0.1 K/mm3 (0.0-0.1); Basophils Percent Auto 0.6 % (0.2-1.2); Eosinophils Absolute Auto 0.2 K/mm3 (0-0.3); Eosinophils Percent Auto 2.1 % (0-4.4); Immature Granulocyte Absolute 0.03 K/mm3 (0.00-0.031); Immature Granulocyte Percent A 0.4 % (0-0.5); Lymphocytes Percent Auto 42.7 % (18.3-44.2); Mean Corpuscular HGB Conc 34.4 g/dl (32-36); Mean Corpuscular Hemoglobin 30.1 pg (26-34); Mean Corpuscular Volume 87.4 fl (80-100); Mean Platelet Volume 9.8 fl (7.4-10.4); Monocytes Absolute Auto 0.7 K/mm3 (0.1-0.6); Monocytes Percent Auto 8.9 % (2.6-8.5); Neutrophils Absolute Auto 3.7 K/mm3 (1.3-6.7); Neutrophils Percent Auto 45.3 % (45.5-73.1); Platelet Count Result 251 k/mm3 (150-375); Red Blood Count 3.66 M/mm3 (4.2-5.4); Red Cell Distribution Width 11.9 % (11.5-14.5); White Blood Count 8.2 K/mm3 (4.5-10.0)
[2021-04-15] MEDS: LEVOTHYROXINE SODIUM 88 MCG TABLET PO (06:08)
[2021-04-15 06:13] LABS: Anion Gap 9 mmol/L (8-16); Blood Urea Nitrogen 18 mg/dL (7-17); Calcium 9.4 mg/dL (8.4-10.2); Carbon Dioxide 26 mmol/L (22-30); Chloride 86 mmol/L (98-107); Estimated Glomerular Filt Rate > 60; Glucose 115 mg/dL (65-110); Potassium 4.5 mmol/L (3.4-5.0); Sodium 121 mmol/L (137-145)
[2021-04-15] MEDS: FLUTICASONE/SALMETEROL 115-21 MCG INHALER 1 PUFF 2 PUFF INHALATION ×2 (08:07→19:57)
[2021-04-15] MEDS: FLUTICASONE PROPIONATE 0.05% NA SPR 16 GM BTL (*BKC) 1 SPRAY NASAL ×2 (08:56→17:17)
[2021-04-15] MEDS: GABAPENTIN 100 MG CAPSULE PO ×3 (08:57→17:18)
[2021-04-15] MEDS: VALSARTAN 160 MG TABLET PO (08:57)
[2021-04-15] MEDS: NEBIVOLOL HCL 5 MG TABLET 20 MG PO ×2 (08:57→22:35)
[2021-04-15] MEDS: LORATADINE 10 MG TABLET PO (08:57)
[2021-04-15] MEDS: ATORVASTATIN 40 MG TABLET PO (08:57)
[2021-04-15] MEDS: EZETIMIBE 10 MG TABLET PO (08:57)
[2021-04-15] MEDS: SPIRONOLACTONE 12.5 MG TABLET PO (08:57)
[2021-04-15] MEDS: PANTOPRAZOLE 40 MG TABLET PO (08:57)
[2021-04-15] MEDS: amLODIPine BESYLATE 5 MG TABLET PO (08:57)
[2021-04-15] MEDS: ASPIRIN 81 MG ENTERIC TABLET PO (08:57)
[2021-04-15] MEDS: CLOPIDOGREL BISULFATE 75 MG TABLET PO (08:58)
[2021-04-15] MEDS: ISOSORBIDE MONONITRATE 30 MG TAB.ER.24H PO (08:58)
[2021-04-15] MEDS: FOLIC ACID 1 MG TABLET PO (08:58)
[2021-04-15] MEDS: busPIRone HCL 10 MG TABLET PO ×2 (08:58→17:17)
[2021-04-15] MEDS: Linaclotide [Linzess] 145 mcg capsule 145 EACH BY MOUTH (09:00)
--- NOTE | 2021-04-15 09:25 | PM.IMPN ---
Progress Note: A&P Assessment and Plan (1) Dyspnea on exertion: Code(s): R06.00 - Dyspnea, unspecified Status: Acute Assessment and Plan: Patient has no shortness of breath at present time. Will continue current treatment, patient is scheduled for stress test in the morning. (2) Chest pain: Code(s): R07.9 - Chest pain, unspecified Status: Acute Assessment and Plan: Will continue current treatment. Scheduled for stress test in the morning. (3) Coronary artery disease: Code(s): I25.10 - Atherosclerotic heart disease of [place] coronary artery without angina pectoris Status: Acute Assessment and Plan: Stable medically (4) Hypertension: Code(s): I10 - Essential (primary) hypertension Status: Acute Assessment and Plan: stable on medication (5) Gastroesophageal reflux disease: Code(s): K21.9 - Gastro-esophageal reflux disease without esophagitis Status: Acute Assessment and Plan: stable on medication (6) Hypothyroid: Code(s): E03.9 - Hypothyroidism, unspecified Status: Chronic Assessment and Plan: stable on medication (7) Hyperlipidemia: Code(s): E78.5 - Hyperlipidemia, unspecified Status: Chronic (8) Diet-controlled diabetes mellitus: Code(s): E11.9 - Type 2 diabetes mellitus without complications Status: Acute Assessment and Plan: stable on medication (9) Rheumatoid arthritis: Qualifiers: Laterality: bilateral Rheumatoid arthritis location: hand Rheumatoid factor presence: unspecified presence Qualified Code(s): M06.9 - Rheumatoid arthritis, unspecified Code(s): M06.9 - Rheumatoid arthritis, unspecified Status: Chronic Assessment and Plan: stable on medication (10) Chronic pain syndrome: Code(s): G89.4 - Chronic pain syndrome Status: Acute Assessment and Plan: controlled (11) Chronic, continuous use of opioids: Code(s): F11.90 - Opioid use, unspecified, uncomplicated Status: Acute Assessment and Plan: is stable Additional Plan dyspnea on exertion /chest tightnessCT chest negative for PE shows cardiomegaly. BNP elevated at 485 chest x-ray unremarkable does not sound like asthma exacerbation. reviewed cardiology recommendation continue with diuresis. Optimal blood pressure control with Guardado bit better today. Added on isosorbide mononitrate will keep hydralazine on hold. Echocardiogram reviewed which showed 2. Normal left ventricular size and thickness with overall good contractility of all segments. Estimated ejection fraction is 60-65%. No segmental wall motion abnormalities. Grade 2 diastolic dysfunction is present. Global longitudinal strain is mildly diminished at-17%, suggestive of mild left ventricular systolic dysfunction. 3. Left atrial chamber dimension is moderately enlarged. 4. There is mild tricuspid valve regurgitation. 5. No pulmonary hypertension, estimated pulmonary arterial systolic pressure is 29 mmHg. 6. Normal sinus rhythm. Mild hyponatremia this has worsened since admission. Could be from dehydration normal saline was ordered looks euvolemic likely due to SIADH. Slightly better and remains stable History of coronary artery disease with balloon angioplasty of diagonal branch January 2018 Diabetes mellitus Hypertension ELVIRA noncompliant with CPAP Asthma Rheumatoid arthritis History of DVT anxiety disorder on buspirone does not take it on a regular basis advised to take it twice a day DVT prophylaxis SCDs Full code status pulmonary consultation as recommended by Cardiology Discussed about adding gabapentin for her chronic pain. She is agreeable to try. Improved pain after we started on gabapentin she also looks less anxious today. She work with therapy today and suggested home health at discharge. 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
[2021-04-15] MEDS: DOCUSATE SODIUM 100 MG CAPSULE PO (17:17)
[2021-04-15] MEDS: MONTELUKAST SODIUM 10 MG TABLET PO (22:35)
--- NOTE | 2021-04-16 | EST_ITS ---
Patient Info Name: Aracely Spear Age: 76 years : 1945 Gender: Female Ht: 59 in Wt: 157 lbs BSA: 1.75 m2 Exam Date: 04/16/2021 8:39 AM Exam Location: [facility] Stress Patient Status: Inpatient Admit Date: 04/11/2021 Staff Ordering Physician: Gumaro Gasca MD Attending Provider: Antonio Arthur MD Exercise Technologist: Tiffany Rodriguez RDCS Exercise Physician: Gumaro Gasca MD Exam Type: CA stress deidre w NM Study Info Indications R06.09 - Other forms of dyspnea A regadenoson stress test was performed. Summary 1. Normal sinus rhythm. 2. Leftward axis and poor R-wave progression. 3. No ST or T abnormalities compatible with ischemia following Lexiscan injection. 4. No arrhythmias were observed during the examination. 5. Clinically and electrocardiographically unremarkable Lexiscan stress test. 6. Myocardial perfusion imaging exam to be dictated by the Radiology Department. Protocol: Lexiscan Stress ECG Details Stage: REST Duration (min): 1 min : 42 sec HR (bpm): 71 SBP (mmHg): 190 DBP (mmHg): 85 Stage: REST Duration (min): 2 min : 2 sec HR (bpm): 72 SBP (mmHg): 190 DBP (mmHg): 85 Stage: STAGE 1 Duration (min): 0 min : 59 sec HR (bpm): 81 SBP (mmHg): 190 DBP (mmHg): 85 Stage: RECOVERY Duration (min): 1 min : 0 sec HR (bpm): 88 SBP (mmHg): 183 DBP (mmHg): 77 Stage: RECOVERY Duration (min): 2 min : 0 sec HR (bpm): 86 SBP (mmHg): 143 DBP (mmHg): 73 Stage: RECOVERY Duration (min): 3 min : 0 sec HR (bpm): 83 SBP (mmHg): 144 DBP (mmHg): 69 Stage: RECOVERY Duration (min): 3 min : 15 sec HR (bpm): 82 SBP (mmHg): 144 DBP (mmHg): 69 Rest HR: 72 bpm Peak HR: 88 bpm Rest Sys BP: 190 mmHg Peak Sys BP: 183 mmHg Max Pred HR: 142 bpm % Max Pred HR: 62 % Target HR: 121 bpm Max RPP: 16,104 bpm*mmHg Termination Reason: Completed protocol Cardiac Symptoms: None Total Time: 1 min : 0 sec Rest Hu BP: 85 mmHg Peak Hu BP: 77 mmHg Total Dose: 0.4 mg Resting ECG Normal sinus rhythm. Leftward axis and poor R-wave progression. Stress ECG No ST or T abnormalities compatible with ischemia following Lexiscan injection. Arrhythmias No arrhythmias were observed during the examination. Report Signatures
[2021-04-16] MEDS: oxyCODONE/ACETAMINOPHEN (*CRX) 5-325 MG TABLET 1 TABLET PO ×4 (01:47→19:25)
[2021-04-16] MEDS: oxyCODONE HCL (*CRX) 5 MG TAB IR PO ×4 (01:48→19:25)
[2021-04-16 05:59] VITALS: BP 124/62; PULSE 71; RESP 16; TEMP 36.2; O2SAT 98
--- NOTE | 2021-04-16 06:56 | P.PNIM_ITS ---
Progress Note: A&P Assessment and Plan (1) Dyspnea on exertion: Code(s): R06.00 - Dyspnea, unspecified Status: Acute Assessment and Plan: Patient has no shortness of breath at present time. Will continue current treatment, patient is scheduled for stress test in the morning. (2) Chest pain: Code(s): R07.9 - Chest pain, unspecified Status: Acute Assessment and Plan: Will continue current treatment. Scheduled for stress test in the morning. (3) Coronary artery disease: Code(s): I25.10 - Atherosclerotic heart disease of [place] coronary artery without angina pectoris Status: Acute Assessment and Plan: Stable medically (4) Hypertension: Code(s): I10 - Essential (primary) hypertension Status: Acute Assessment and Plan: stable on medication (5) Gastroesophageal reflux disease: Code(s): K21.9 - Gastro-esophageal reflux disease without esophagitis Status: Acute Assessment and Plan: stable on medication (6) Hypothyroid: Code(s): E03.9 - Hypothyroidism, unspecified Status: Chronic Assessment and Plan: stable on medication (7) Hyperlipidemia: Code(s): E78.5 - Hyperlipidemia, unspecified Status: Chronic (8) Diet-controlled diabetes mellitus: Code(s): E11.9 - Type 2 diabetes mellitus without complications Status: Acute Assessment and Plan: stable on medication (9) Rheumatoid arthritis: Qualifiers: Laterality: bilateral Rheumatoid arthritis location: hand Rheumatoid factor presence: unspecified presence Qualified Code(s): M06.9 - Rheumatoid arthritis, unspecified Code(s): M06.9 - Rheumatoid arthritis, unspecified Status: Chronic Assessment and Plan: stable on medication (10) Chronic pain syndrome: Code(s): G89.4 - Chronic pain syndrome Status: Acute Assessment and Plan: controlled (11) Chronic, continuous use of opioids: Code(s): F11.90 - Opioid use, unspecified, uncomplicated Status: Acute Assessment and Plan: is stable (12) Hyponatremia: Code(s): E87.1 - Hypo-osmolality and hyponatremia Status: Acute Assessment and Plan: Sodium is 121.Nephrology consult ordered Additional Plan dyspnea on exertion /chest tightnessCT chest negative for PE shows cardiomegaly. BNP elevated at 485 chest x-ray unremarkable does not sound like asthma exacerbation. reviewed cardiology recommendation continue with diuresis. Optimal blood pressure control with Guardado bit better today. Added on isosorbide mononitrate will keep hydralazine on hold. Echocardiogram reviewed which showed 2. Normal left ventricular size and thickness with overall good contractility of all segments. Estimated ejection fraction is 60-65%. No segmental wall motion abnormalities. Grade 2 diastolic dysfunction is present. Global longitudinal strain is mildly diminished at-17%, suggestive of mild left ventricular systolic dysfunction. 3. Left atrial chamber dimension is moderately enlarged. 4. There is mild tricuspid valve regurgitation. 5. No pulmonary hypertension, estimated pulmonary arterial systolic pressure is 29 mmHg. 6. Normal sinus rhythm. Mild hyponatremia this has worsened since admission. Could be from dehydration normal saline was ordered looks euvolemic likely due to SIADH. Slightly better and remains stable History of coronary artery disease with balloon angioplasty of diagonal branch January 2018 Diabetes mellitus
[2021-04-16 07:10] LABS: Anion Gap 8 mmol/L (8-16); Blood Urea Nitrogen 19 mg/dL (7-17); Calcium 9.8 mg/dL (8.4-10.2); Carbon Dioxide 25 mmol/L (22-30); Chloride 88 mmol/L (98-107); Estimated Glomerular Filt Rate > 60; Glucose 95 mg/dL (65-110); Potassium 4.8 mmol/L (3.4-5.0); Sodium 121 mmol/L (137-145)
--- NOTE | 2021-04-16 09:22 | PCPTNOTE ---
Patient out of room for test, unable to be seen for PT. PT will continue to follow per plan of care.
[2021-04-16 10:06] VITALS: PULSE 72
[2021-04-16] MEDS: NEBIVOLOL HCL 5 MG TABLET 20 MG PO ×2 (10:06→20:52)
[2021-04-16] MEDS: ASPIRIN 81 MG ENTERIC TABLET PO (10:07)
[2021-04-16] MEDS: SPIRONOLACTONE 12.5 MG TABLET PO (10:07)
[2021-04-16] MEDS: VALSARTAN 160 MG TABLET PO (10:07)
[2021-04-16] MEDS: FOLIC ACID 1 MG TABLET PO (10:07)
[2021-04-16] MEDS: GABAPENTIN 100 MG CAPSULE PO ×3 (10:07→17:50)
[2021-04-16] MEDS: LORATADINE 10 MG TABLET PO (10:08)
[2021-04-16] MEDS: PANTOPRAZOLE 40 MG TABLET PO (10:08)
[2021-04-16] MEDS: amLODIPine BESYLATE 5 MG TABLET PO (10:08)
[2021-04-16] MEDS: CLOPIDOGREL BISULFATE 75 MG TABLET PO (10:08)
[2021-04-16] MEDS: busPIRone HCL 10 MG TABLET PO ×2 (10:08→17:50)
[2021-04-16] MEDS: EZETIMIBE 10 MG TABLET PO (10:08)
[2021-04-16] MEDS: ATORVASTATIN 40 MG TABLET PO (10:08)
[2021-04-16] MEDS: ISOSORBIDE MONONITRATE 30 MG TAB.ER.24H PO (10:08)
[2021-04-16] MEDS: FLUTICASONE/SALMETEROL 115-21 MCG INHALER 1 PUFF 2 PUFF INHALATION ×2 (10:08→20:01)
[2021-04-16 10:09] VITALS: O2SAT 96
[2021-04-16] MEDS: FLUTICASONE PROPIONATE 0.05% NA SPR 16 GM BTL (*BKC) 1 SPRAY NASAL ×2 (10:09→17:50)
[2021-04-16] MEDS: Linaclotide [Linzess] 145 mcg capsule 145 EACH BY MOUTH (10:17)
--- NOTE | 2021-04-16 10:22 | PC.NURSE ---
0735 patient to scan via wheel chair
--- NOTE | 2021-04-16 10:22 | PC.NURSE ---
1000, patient return from scan via wheelchair
--- NOTE | 2021-04-16 12:16 | PM.PNCARD ---
Progress Note: A&P Additional Plan 76-year-old woman with: Coronary artery disease previous percutaneous revascularization of the diagonal branch of her LAD. She has symptoms now that are of concern but I do not have any cardiovascular basis to this. She has no significant valvular disease, normal LV systolic function and no demonstrable evidence of ischemia on nuclear stress testing. From my perspective this lady can be discharged she has scheduled follow-up already on our office with Dr. Pedraza. Gumaro Gacsa MD [facility] Subjective Date/time seen: Date of service:04/16/21 12:16 Interval history: 76-year-old lady admitted with : Exertional shortness of breath felt to have diastolic heart failure on admission a few days ago but in retrospect I doubt this diagnosis since none of the evidence looks like this lady was significantly volume overloaded and she did not improve with diuresis. She looks okay at rest but still reports shortness of breath with modest activity. Therapy [place] and she only makes it a short distance before she has to stop. He does have history of coronary artery disease and I indicated to the patient that this is somewhat concerning that this could be an ischemia Equivalent. Date of service 04/16/2021: Patient feels well as long as she is seated or at rest. Still reports shortness or breath with modest activity. Had a Lexiscan nuclear stress test done this morning which looks entirely normal. the gated SPECT perfusion imaging study shows her ejection fraction to be 70% and there were no scintigraphic evidence of ischemia. The evidence appears to be these symptoms are not related to myocardial ischemia and I believe cardiac-kyle she can be discharged. Exam Narrative: PHYSICAL EXAMINATION: GENERAL: Alert, oriented, appears short of breath while talking MENTAL STATUS: anxious EYES: Extraocular movements intact, no pallor EARS: External ears appear normal, hearing grossly normal NOSE: Normal and patent, no discharge MOUTH: Mucous membranes moist, tongue normal NECK: Supple, no JVD CHEST: Good respiratory effort, clear to auscultation HEART: Normal rate, regular rhythm, distant heart sounds ABDOMEN: Soft, nontender NEUROLOGICAL: Alert, oriented, normal speech, no gross motor deficits MUSCULOSKELETAL: No major deformity, no amputation EXTREMITIES: No pedal edema, arthritic changes are seen in the fingers SKIN: no rash on the exposed area, no cyanosis PSYCHIATRIC: anxious Const: General: comfortable and no acute distress Other: elderly white female appears to be in no distress seated at her bedside table eating her lunch HENMT: Head: normal to inspection Mouth: Yes moist mucous membranes Eyes: General: appearance normal, both eyes and all related structures Sclera: sclerae normal Pupils: Equal, round and reactive pupils present Neck: Neck: supple and no JVD Thyroid: thyroid normal Resp: Effort & Inspection: normal respiratory effort Auscultation: clear to auscultation bilaterally and no crackles Cardio: Rate: regular rate Rhythm: regular rhythm GI: Auscultation: normal bowel sounds Skin: General skin exam: normal color Neuro: Cranial nerves: Yes Equal, round and reactive pupils present Cognition (Neuro): normal cognition Extrem: General: normal to inspection, edema and pedal edema Other: Arthritic changes noted in bilateral finger joints Psych: Mental Status: mental status grossly normal Affect: Anxious affect present Objective Data Vital Signs Vital Signs: Vital Signs - 24 hr 04/15/21 14:00 04/15/21 20:00 04/15/21 20:01 Temperature 36.6 C Pulse Rate 64 77 Respiratory Rate 16 Blood Pressure 122/52 L Pulse Oximetry 99 96 04/15/21 20:20 04/15/21 21:33 04/15/21 22:35 Temperature 36.6 C Pulse Rate 64 65 64 Respiratory Rate 16 16 Blood Pressure 138/70 Pulse Oximetry 100 100 04/16/21 05:59 04/16
[2021-04-16 14:00] VITALS: BP 106/64; PULSE 108; RESP 18; TEMP 36.6; O2SAT 99
--- NOTE | 2021-04-16 16:57 | PM.CNNEP ---
Assessment and Plan Assessment and plan (1) Hyponatremia: Code(s): E87.1 - Hypo-osmolality and hyponatremia Status: Acute Assessment and Plan: the patient has chronic hyponatremia. This is dated back to 2006. She says she has been on opioidpain medications for many years. I suspect this may be the cause for her hyponatremia. Other causes would include cancer. It is unlikely that she has had cancer for 18 years without it being diagnosed by now. FINAL FINISHER FORGING DIES causes can do this as well. She has no symptoms of these. She had a CT brain in 2017 which was negative. Chest issues can cause this as well. She has had CTs and chest x-rays which have not revealed anything. She does have untreated sleep apnea probably but this would not necessarily cause hyponatremia. Medications can do this of course as I already stated. She is not on antidepressants. She is on spironolactone which could cause hyponatremia possibly. But she has not been on this for 18 years. She is not on hydrochlorothiazide. The opioids are highly suspicious for the cause. Thyroid and adrenal issues are always possible as well. Will check TSH, cortisol level, serum and urine osmolality, and urine sodium. The patient has acute hyponatremia as well. This is most likely due to the diuretics. In general, with patients on diuretics, if they drink too much fluid the sodium will go down. If they do not drink much fluid than the sodium will go up. I will fluid restrict this patient [id number] per day which should help raise the sodium. I will also give a salt tablet with each dose of furosemide. Consider lower more frequent doses of furosemide along with salt tablets if this does not work. (2) Acute on chronic diastolic (congestive) heart failure: Code(s): I50.33 - Acute on chronic diastolic (congestive) heart failure Status: Acute Assessment and Plan: The patient is getting diuretics. She feels better than she did when she got here. (3) Gastroesophageal reflux disease: Code(s): K21.9 - Gastro-esophageal reflux disease without esophagitis Status: Acute Assessment and Plan: No symptoms of this right now (4) Chronic, continuous use of opioids: Code(s): F11.90 - Opioid use, unspecified, uncomplicated Status: Acute Assessment and Plan: she continues on these. Even though these are the cause of the hyponatremia would just have to work around them as her primary care physician adjusts the opioids. (5) Obstructive sleep apnea: Code(s): G47.33 - Obstructive sleep apnea (adult) (pediatric) Status: Acute Assessment and Plan: She is getting evaluated by Pulmonary. (6) Hypertension: Code(s): I10 - Essential (primary) hypertension Status: Acute Assessment and Plan: This is well controlled (7) Rheumatoid arthritis: Qualifiers: Rheumatoid arthritis location: hand Rheumatoid factor presence: unspecified presence Laterality: bilateral Qualified Code(s): M06.9 - Rheumatoid arthritis, unspecified Code(s): M06.9 - Rheumatoid arthritis, unspecified Status: Chronic Assessment and Plan: she is on methotrexate and as needed Prednisone (8) Anxiety: Code(s): F41.9 - Anxiety disorder, unspecified Status: Chronic Assessment and Plan: she takes Buspirone for this. She has never been on an antidepressant. (9) CAD (coronary artery disease): Qualifiers: Coronary Disease-Associated Artery/Lesion type: [place] artery [place] vs. transplanted heart: [place] heart Associated angina: without angina Qualified Code(s): I25.10 - Atherosclerotic heart disease of [place] coronary artery without angina pectoris Code(s): I25.10 - Atherosclerotic heart disease of [place] coronary artery without angina pectoris Status: Acute Assessment and Plan: No symptoms History of Present Illness
[2021-04-16 18:51] LABS: Sodium 122 mmol/L (137-145)
[2021-04-16 19:35] LABS: Cortisol Random 3.06 ug/dL
[2021-04-16 20:02] VITALS: PULSE 77
[2021-04-16] MEDS: MONTELUKAST SODIUM 10 MG TABLET PO (20:52)
[2021-04-16 22:00] VITALS: BP 124/60; PULSE 70; RESP 18; TEMP 36.6; O2SAT 98
[2021-04-17] VITALS (7 sets, daily range): BP systolic 100–132; BP diastolic 64–68; PULSE 52–70; RESP 18; TEMP 36.2–36.6; O2SAT 95–97
[2021-04-17] MEDS: oxyCODONE/ACETAMINOPHEN (*CRX) 5-325 MG TABLET 1 TABLET PO ×4 (01:38→20:14)
[2021-04-17] MEDS: oxyCODONE HCL (*CRX) 5 MG TAB IR PO ×4 (01:40→20:13)
[2021-04-17 03:25] LABS: Sodium Urine Random 30 meq/L
[2021-04-17] MEDS: LEVOTHYROXINE SODIUM 88 MCG TABLET PO (06:10)
[2021-04-17 06:26] LABS: Albumin Level 3.8 g/dL (3.5-5.1); Anion Gap 7 mmol/L (8-16); Blood Urea Nitrogen 19 mg/dL (7-17); Calcium 9.3 mg/dL (8.4-10.2); Carbon Dioxide 26 mmol/L (22-30); Chloride 91 mmol/L (98-107); Estimated Glomerular Filt Rate > 60; Glucose 107 mg/dL (65-110); Phosphorus 4.1 mg/dL (2.5-4.5); Potassium 4.7 mmol/L (3.4-5.0); Sodium 124 mmol/L (137-145)
[2021-04-17] MEDS: COSYNTROPIN 0.25 MG/ML VIAL IV PUSH (07:40)
--- NOTE | 2021-04-17 07:46 | PM.PNNEP ---
Progress Note: A&P Assessment and Plan (1) Hyponatremia: Code(s): E87.1 - Hypo-osmolality and hyponatremia Status: Acute Assessment and Plan: the patient has chronic hyponatremia. This is dated back to 2006. She says she has been on opioid pain medications for many years. I suspect this may be the cause for her hyponatremia. cortisol level is very low. Will do a Cortrosyn stim test. TSH is okay. SPEP is pending as well as osmolality. 8/2 Na 121, 123 8/3 Na 124 Sodium level has come up a little bit from 121-124. Fluid restriction only started yesterday afternoon. Will check another sodium at 4:00 p.m. today and reassess. Will also change Lasix to20mg twice a day and give salt tablets with each dose (2) Acute on chronic diastolic (congestive) heart failure: Code(s): I50.33 - Acute on chronic diastolic (congestive) heart failure Status: Acute Assessment and Plan: The patient is getting diuretics. She feels better than she did when she got here. echo shows grade 2 diastolic dysfunction but normal systolic function. Lexiscan was negative for ischemia. (3) Gastroesophageal reflux disease: Code(s): K21.9 - Gastro-esophageal reflux disease without esophagitis Status: Acute Assessment and Plan: No symptoms of this right now (4) Chronic, continuous use of opioids: Code(s): F11.90 - Opioid use, unspecified, uncomplicated Status: Acute Assessment and Plan: she continues on these. Even though these are the cause of the hyponatremia would just have to work around them as her primary care physician adjusts the opioids. (5) Obstructive sleep apnea: Code(s): G47.33 - Obstructive sleep apnea (adult) (pediatric) Status: Acute Assessment and Plan: She is getting evaluated by Pulmonary. Could she have other causes of shortness of breath besides heart failure? (6) Hypertension: Code(s): I10 - Essential (primary) hypertension Status: Acute Assessment and Plan: This is well controlled (7) Rheumatoid arthritis: Qualifiers: Rheumatoid arthritis location: hand Rheumatoid factor presence: unspecified presence Laterality: bilateral Qualified Code(s): M06.9 - Rheumatoid arthritis, unspecified Code(s): M06.9 - Rheumatoid arthritis, unspecified Status: Chronic Assessment and Plan: she is on methotrexate and as needed Prednisone (8) Anxiety: Code(s): F41.9 - Anxiety disorder, unspecified Status: Chronic Assessment and Plan: she takes Buspirone for this. She has never been on an antidepressant. (9) CAD (coronary artery disease): Qualifiers: Coronary Disease-Associated Artery/Lesion type: [place] artery [place] vs. transplanted heart: [place] heart Associated angina: without angina Qualified Code(s): I25.10 - Atherosclerotic heart disease of [place] coronary artery without angina pectoris Code(s): I25.10 - Atherosclerotic heart disease of [place] coronary artery without angina pectoris Status: Acute Assessment and Plan: No symptoms Subjective Date/time seen: 04/17/21 07:46 Interval history: Aracely is feeling better today. She is less short of breath. She made a lot of urine yesterday. She is working carefully with the nurses on her fluid restriction. Review of Systems Cardiovascular: Cardiovascular: Reports no additional cardiovascular complaints Respiratory: Respiratory: Reports no additional respiratory complaints Gastrointestinal: Gastrointestinal: Reports no additional gastrointestinal complaints Genitourinary: Genitourinary: Reports no additional female genitourinary complaints Exam Narrative: WDWN in NAD skin no rash head ncat lungs clear bilaterally cor reg no rub abd BS+ nontender and soft ext no edema. Objective Data Vital Signs Vital Signs: Vital Signs - 24 hr 04/16/21
[2021-04-17 07:51] LABS: Cortisol Baseline 3.33 ug/dL
[2021-04-17] MEDS: NEBIVOLOL HCL 5 MG TABLET 20 MG PO ×2 (08:22→20:13)
[2021-04-17] MEDS: SODIUM CHLORIDE 1 GM TABLET PO ×2 (08:23→18:00)
[2021-04-17] MEDS: GABAPENTIN 100 MG CAPSULE PO ×3 (08:23→18:00)
[2021-04-17] MEDS: SPIRONOLACTONE 12.5 MG TABLET PO (08:23)
[2021-04-17] MEDS: FOLIC ACID 1 MG TABLET PO (08:24)
[2021-04-17] MEDS: LORATADINE 10 MG TABLET PO (08:24)
[2021-04-17] MEDS: CLOPIDOGREL BISULFATE 75 MG TABLET PO (08:24)
[2021-04-17] MEDS: busPIRone HCL 10 MG TABLET PO ×2 (08:24→18:00)
[2021-04-17] MEDS: VALSARTAN 160 MG TABLET PO (08:24)
[2021-04-17] MEDS: ISOSORBIDE MONONITRATE 30 MG TAB.ER.24H PO (08:24)
[2021-04-17] MEDS: ATORVASTATIN 40 MG TABLET PO (08:25)
[2021-04-17] MEDS: FLUTICASONE PROPIONATE 0.05% NA SPR 16 GM BTL (*BKC) 1 SPRAY NASAL ×2 (08:25→18:00)
[2021-04-17] MEDS: Linaclotide [Linzess] 145 mcg capsule 145 EACH BY MOUTH (08:25)
[2021-04-17] MEDS: PANTOPRAZOLE 40 MG TABLET PO (08:25)
[2021-04-17] MEDS: ASPIRIN 81 MG ENTERIC TABLET PO (08:26)
[2021-04-17] MEDS: amLODIPine BESYLATE 5 MG TABLET PO (08:26)
[2021-04-17] MEDS: EZETIMIBE 10 MG TABLET PO (08:26)
[2021-04-17 11:08] LABS: Glucose Point of Care 138 mg/dl (65-105)
[2021-04-17] MEDS: FLUTICASONE/SALMETEROL 115-21 MCG INHALER 1 PUFF 2 PUFF INHALATION ×2 (11:12→20:24)
[2021-04-17 16:13] LABS: Sodium 122 mmol/L (137-145)
--- NOTE | 2021-04-17 16:52 | PM.IMPN ---
Progress Note: A&P Assessment and Plan (1) Dyspnea on exertion: Code(s): R06.00 - Dyspnea, unspecified Status: Acute Assessment and Plan: Patient has no shortness of breath at present time. Will continue current treatment, patient is scheduled for stress test in the morning. (2) Chest pain: Code(s): R07.9 - Chest pain, unspecified Status: Acute Assessment and Plan: Will continue current treatment. Scheduled for stress test in the morning. (3) Coronary artery disease: Code(s): I25.10 - Atherosclerotic heart disease of [place] coronary artery without angina pectoris Status: Acute Assessment and Plan: Stable medically (4) Hypertension: Code(s): I10 - Essential (primary) hypertension Status: Acute Assessment and Plan: stable on medication (5) Gastroesophageal reflux disease: Code(s): K21.9 - Gastro-esophageal reflux disease without esophagitis Status: Acute Assessment and Plan: stable on medication (6) Hypothyroid: Code(s): E03.9 - Hypothyroidism, unspecified Status: Chronic Assessment and Plan: stable on medication (7) Hyperlipidemia: Code(s): E78.5 - Hyperlipidemia, unspecified Status: Chronic (8) Diet-controlled diabetes mellitus: Code(s): E11.9 - Type 2 diabetes mellitus without complications Status: Acute Assessment and Plan: stable on medication (9) Rheumatoid arthritis: Qualifiers: Rheumatoid arthritis location: hand Rheumatoid factor presence: unspecified presence Laterality: bilateral Qualified Code(s): M06.9 - Rheumatoid arthritis, unspecified Code(s): M06.9 - Rheumatoid arthritis, unspecified Status: Chronic Assessment and Plan: stable on medication (10) Chronic pain syndrome: Code(s): G89.4 - Chronic pain syndrome Status: Acute Assessment and Plan: controlled (11) Chronic, continuous use of opioids: Code(s): F11.90 - Opioid use, unspecified, uncomplicated Status: Acute Assessment and Plan: is stable (12) Hyponatremia: Code(s): E87.1 - Hypo-osmolality and hyponatremia Status: Acute Assessment and Plan: Sodium is 121.Nephrology consult ordered Additional Plan dyspnea on exertion /chest tightnessCT chest negative for PE shows cardiomegaly. BNP elevated at 485 chest x-ray unremarkable does not sound like asthma exacerbation. reviewed cardiology recommendation continue with diuresis. Optimal blood pressure control with Guardado bit better today. Added on isosorbide mononitrate will keep hydralazine on hold. Echocardiogram reviewed which showed 2. Normal left ventricular size and thickness with overall good contractility of all segments. Estimated ejection fraction is 60-65%. No segmental wall motion abnormalities. Grade 2 diastolic dysfunction is present. Global longitudinal strain is mildly diminished at-17%, suggestive of mild left ventricular systolic dysfunction. 3. Left atrial chamber dimension is moderately enlarged. 4. There is mild tricuspid valve regurgitation. 5. No pulmonary hypertension, estimated pulmonary arterial systolic pressure is 29 mmHg. 6. Normal sinus rhythm. Mild hyponatremia this has worsened since admission. Could be from dehydration normal saline was ordered looks euvolemic likely due to SIADH. Slightly better and remains stable History of coronary artery disease with balloon angioplasty of diagonal branch January 2018 Diabetes mellitus Hypertension ELVIRA noncompliant with CPAP Asthma Rheumatoid arthritis History of DVT anxiety disorder on buspirone does not take it on a regular basis advised to take it twice a day DVT prophylaxis SCDs Full code status pulmonary consultation as recommended by Cardiology Discussed about adding gabapentin for her chronic pain. She is agreeable to try. Improved pain after we started o
[2021-04-17] MEDS: MONTELUKAST SODIUM 10 MG TABLET PO (20:13)
[2021-04-18] VITALS (10 sets, daily range): BP systolic 66–115; BP diastolic 36–82; PULSE 59–73; RESP 16–20; TEMP 36.2–36.7; O2SAT 95–97
[2021-04-18] MEDS: oxyCODONE HCL (*CRX) 5 MG TAB IR PO ×2 (05:53→13:31)
[2021-04-18] MEDS: oxyCODONE/ACETAMINOPHEN (*CRX) 5-325 MG TABLET 1 TABLET PO ×3 (05:54→21:58)
[2021-04-18] MEDS: LEVOTHYROXINE SODIUM 88 MCG TABLET PO (05:55)
[2021-04-18 07:05] LABS: Albumin Level 4.1 g/dL (3.5-5.1); Anion Gap 9 mmol/L (8-16); Blood Urea Nitrogen 23 mg/dL (7-17); Calcium 9.9 mg/dL (8.4-10.2); Carbon Dioxide 25 mmol/L (22-30); Chloride 95 mmol/L (98-107); Estimated Glomerular Filt Rate > 60; Glucose 106 mg/dL (65-110); Magnesium 1.6 mg/dL (1.6-2.3); Phosphorus 4.1 mg/dL (2.5-4.5); Potassium 4.8 mmol/L (3.4-5.0); Sodium 129 mmol/L (137-145)
[2021-04-18] MEDS: amLODIPine BESYLATE 5 MG TABLET PO (09:21)
[2021-04-18] MEDS: ATORVASTATIN 40 MG TABLET PO (09:22)
[2021-04-18] MEDS: EZETIMIBE 10 MG TABLET PO (09:22)
[2021-04-18] MEDS: PANTOPRAZOLE 40 MG TABLET PO (09:22)
[2021-04-18] MEDS: NEBIVOLOL HCL 5 MG TABLET 20 MG PO (09:22)
[2021-04-18] MEDS: SODIUM CHLORIDE 1 GM TABLET PO ×2 (09:22→17:13)
[2021-04-18] MEDS: SPIRONOLACTONE 12.5 MG TABLET PO (09:22)
[2021-04-18] MEDS: LORATADINE 10 MG TABLET PO (09:27)
[2021-04-18] MEDS: GABAPENTIN 100 MG CAPSULE PO ×2 (09:27→17:13)
[2021-04-18] MEDS: busPIRone HCL 10 MG TABLET PO ×2 (09:27→17:12)
[2021-04-18] MEDS: CLOPIDOGREL BISULFATE 75 MG TABLET PO (09:27)
[2021-04-18] MEDS: ISOSORBIDE MONONITRATE 30 MG TAB.ER.24H PO (09:27)
[2021-04-18] MEDS: ASPIRIN 81 MG ENTERIC TABLET PO (09:27)
[2021-04-18] MEDS: VALSARTAN 160 MG TABLET PO (09:28)
[2021-04-18] MEDS: FOLIC ACID 1 MG TABLET PO (09:28)
[2021-04-18] MEDS: Linaclotide [Linzess] 145 mcg capsule 145 EACH BY MOUTH (09:28)
[2021-04-18] MEDS: FLUTICASONE PROPIONATE 0.05% NA SPR 16 GM BTL (*BKC) 1 SPRAY NASAL ×2 (09:28→17:13)
[2021-04-18] MEDS: FLUTICASONE/SALMETEROL 115-21 MCG INHALER 1 PUFF 2 PUFF INHALATION ×2 (09:40→20:14)
--- NOTE | 2021-04-18 10:08 | PM.PNNEP ---
Progress Note: A&P Assessment and Plan (1) Hyponatremia: Code(s): E87.1 - Hypo-osmolality and hyponatremia Status: Acute Assessment and Plan: the patient has chronic hyponatremia. This is dated back to 2006. She says she has been on opioid pain medications for many years. I suspect this may be the cause for her hyponatremia. cortisol level is very low. Will do a Cortrosyn stim test. TSH is okay. SPEP is pending as well as osmolality. 8/2 Na 121, 123 8/3 Na 124 then 122 8/4 Na 129 sodium level has come up some with her fluid restriction and salt tablets. Will check this afternoon and if better we can liberalize the fluid intake a little bit. (2) Acute on chronic diastolic (congestive) heart failure: Code(s): I50.33 - Acute on chronic diastolic (congestive) heart failure Status: Acute Assessment and Plan: The patient is getting diuretics. She feels better than she did when she got here. echo shows grade 2 diastolic dysfunction but normal systolic function. Lexiscan was negative for ischemia. (3) Gastroesophageal reflux disease: Code(s): K21.9 - Gastro-esophageal reflux disease without esophagitis Status: Acute Assessment and Plan: No symptoms of this right now (4) Chronic, continuous use of opioids: Code(s): F11.90 - Opioid use, unspecified, uncomplicated Status: Acute Assessment and Plan: she continues on these. Even though these are the cause of the hyponatremia would just have to work around them as her primary care physician adjusts the opioids. (5) Obstructive sleep apnea: Code(s): G47.33 - Obstructive sleep apnea (adult) (pediatric) Status: Acute Assessment and Plan: She is getting evaluated by Pulmonary. Could she have other causes of shortness of breath besides heart failure? (6) Hypertension: Code(s): I10 - Essential (primary) hypertension Status: Acute Assessment and Plan: This is well controlled (7) Rheumatoid arthritis: Qualifiers: Rheumatoid arthritis location: hand Rheumatoid factor presence: unspecified presence Laterality: bilateral Qualified Code(s): M06.9 - Rheumatoid arthritis, unspecified Code(s): M06.9 - Rheumatoid arthritis, unspecified Status: Chronic Assessment and Plan: she is on methotrexate and as needed Prednisone (8) Anxiety: Code(s): F41.9 - Anxiety disorder, unspecified Status: Chronic Assessment and Plan: she takes Buspirone for this. She has never been on an antidepressant. (9) CAD (coronary artery disease): Qualifiers: Coronary Disease-Associated Artery/Lesion type: [place] artery [place] vs. transplanted heart: [place] heart Associated angina: without angina Qualified Code(s): I25.10 - Atherosclerotic heart disease of [place] coronary artery without angina pectoris Code(s): I25.10 - Atherosclerotic heart disease of [place] coronary artery without angina pectoris Status: Acute Assessment and Plan: No symptoms Subjective Date/time seen: 04/18/21 10:08 Interval history: Aracely is feeling better today. She is less short of breath, but does have some dyspnea with walking down the halls she is very thirsty. She is working carefully with the nurses on her fluid restriction. Exam Narrative: WDWN in NAD skin no rash head ncat lungs clear bilaterally cor reg no rub or gallop abd BS+ nontender and soft ext no edema Or subcu nodules. Objective Data Vital Signs Vital Signs: Vital Signs - 24 hr 04/17/21 14:00 04/17/21 20:00 04/17/21 20:13 Temperature 36.2 C L Pulse Rate 62 70 62 Respiratory Rate 18 18 Blood Pressure 100/64 Pulse Oximetry 97 97 04/17/21 20:26 04/17/21 21:57 04/18/21 06:00 Temperature 36.4 C L 36.7 C Pulse Rate 70 70 Respiratory Rate 18 20 Blood Pressure 125/66 115/56 L Pulse Oximetry 95 97
--- NOTE | 2021-04-18 14:25 | PCDIET ---
Weekly nutritional screen. Patient is tolerating current diet with adequate intake. No weight loss reported. No nutritional needs at this time.
--- NOTE | 2021-04-18 14:32 | PCOTNOTE ---
Attempted to see Patient at this time. Upon entering room, RN stated, no therapy this afternoon, having a decline and low blood pressures.
[2021-04-18] MEDS: SODIUM CHLORIDE 0.9% IV 250 ML 500 ML IV CONT (14:56)
[2021-04-18 15:13] LABS: Sodium 124 mmol/L (137-145)
--- NOTE | 2021-04-18 16:17 | PCPTNOTE ---
The patient treatment was not able to be completed this afternoon due to low BP. Will plan to continue treatment per plan of care.
[2021-04-18 20:02] LABS: Sodium 131 mmol/L (137-145)
[2021-04-18] MEDS: MONTELUKAST SODIUM 10 MG TABLET PO (20:05)
[2021-04-19 01:03] LABS: Lambda Light Chain 23.1 mg/L (5.7-26.3)
[2021-04-19] MEDS: SODIUM CHLORIDE 0.9% IV 1,000 ML 75 ML IV CONT (04:00)
[2021-04-19 05:56] VITALS: BP 150/56; PULSE 58; RESP 16; TEMP 36.1; O2SAT 98
[2021-04-19] MEDS: LEVOTHYROXINE SODIUM 88 MCG TABLET PO (05:59)
[2021-04-19] MEDS: oxyCODONE/ACETAMINOPHEN (*CRX) 5-325 MG TABLET 1 TABLET PO ×3 (06:00→20:32)
[2021-04-19 06:17] LABS: Albumin 3.6 g/dL (3.8-4.8); Alpha 1 Globulin 0.3 g/dL (0.2-0.3); Alpha 2 Globulin 0.7 g/dL (0.5-0.9); Beta 1 Globulin 0.5 g/dL (0.4-0.6); Gamma Globulin 0.9 g/dL (0.8-1.7); Protein, Total 6.3 g/dL (6.1-8.1)
[2021-04-19] MEDS: FLUTICASONE/SALMETEROL 115-21 MCG INHALER 1 PUFF 2 PUFF INHALATION ×2 (06:56→20:09)
[2021-04-19 07:16] LABS: Magnesium 1.5 mg/dL (1.6-2.3)
[2021-04-19 07:22] LABS: Albumin Level 3.5 g/dL (3.5-5.1); Anion Gap 6 mmol/L (8-16); Blood Urea Nitrogen 21 mg/dL (7-17); Calcium 9.6 mg/dL (8.4-10.2); Carbon Dioxide 23 mmol/L (22-30); Chloride 103 mmol/L (98-107); Estimated Glomerular Filt Rate > 60; Glucose 107 mg/dL (65-110); Phosphorus 3.9 mg/dL (2.5-4.5); Potassium 4.4 mmol/L (3.4-5.0); Sodium 132 mmol/L (137-145)
[2021-04-19] MEDS: busPIRone HCL 10 MG TABLET PO ×2 (08:34→18:49)
[2021-04-19] MEDS: ASPIRIN 81 MG ENTERIC TABLET PO (08:34)
[2021-04-19] MEDS: ATORVASTATIN 40 MG TABLET PO (08:34)
[2021-04-19] MEDS: FLUTICASONE PROPIONATE 0.05% NA SPR 16 GM BTL (*BKC) 1 SPRAY NASAL ×2 (08:35→18:50)
[2021-04-19] MEDS: EZETIMIBE 10 MG TABLET PO (08:35)
[2021-04-19] MEDS: GABAPENTIN 100 MG CAPSULE PO ×3 (08:35→18:51)
[2021-04-19] MEDS: CLOPIDOGREL BISULFATE 75 MG TABLET PO (08:35)
[2021-04-19] MEDS: FOLIC ACID 1 MG TABLET PO (08:35)
[2021-04-19] MEDS: LORATADINE 10 MG TABLET PO (08:37)
[2021-04-19] MEDS: ISOSORBIDE MONONITRATE 30 MG TAB.ER.24H PO (08:37)
[2021-04-19] MEDS: VALSARTAN 160 MG TABLET PO (08:38)
[2021-04-19] MEDS: PANTOPRAZOLE 40 MG TABLET PO (08:38)
[2021-04-19] MEDS: SODIUM CHLORIDE 1 GM TABLET PO ×2 (08:38→18:51)
[2021-04-19] MEDS: Linaclotide [Linzess] 145 mcg capsule 145 EACH BY MOUTH (11:23)
--- NOTE | 2021-04-19 11:53 | PM.PNNEP ---
Progress Note: A&P Assessment and Plan (1) Hyponatremia: Code(s): E87.1 - Hypo-osmolality and hyponatremia Status: Acute Assessment and Plan: the patient has chronic hyponatremia. This is dated back to 2006. She says she has been on opioid pain medications for many years. cortisol level is very low. Cortrosyn stim test was normal. TSH is okay. SPEP is pending as well as osmolality. Main cause of this is most likely the opioids 8/2 Na 121, 123 8/3 Na 124 then 122 8/4 Na 129 then 124 then 131 8/5 Na 132 currently the patient is on fluid restriction of 800cc, and sodium chloride tablets twice a day. The sodium is bouncing around some, I suspect because of having to hydrate her when she went hypotensive. Will continue to follow the sodium twice a day. I am going to increase the fluid restriction to 1200 since the level came up above 130. Repeat sodium at 4:00 p.m. (2) Acute on chronic diastolic (congestive) heart failure: Code(s): I50.33 - Acute on chronic diastolic (congestive) heart failure Status: Acute Assessment and Plan: The patient is getting diuretics. She feels better than she did when she got here. echo shows grade 2 diastolic dysfunction but normal systolic function. Lexiscan was negative for ischemia. (3) Gastroesophageal reflux disease: Code(s): K21.9 - Gastro-esophageal reflux disease without esophagitis Status: Acute Assessment and Plan: No symptoms of this right now (4) Chronic, continuous use of opioids: Code(s): F11.90 - Opioid use, unspecified, uncomplicated Status: Acute Assessment and Plan: she continues on these. Even though these are the cause of the hyponatremia would just have to work around them as her primary care physician adjusts the opioids. (5) Obstructive sleep apnea: Code(s): G47.33 - Obstructive sleep apnea (adult) (pediatric) Status: Acute Assessment and Plan: She is getting evaluated by Pulmonary. Could she have other causes of shortness of breath besides heart failure? (6) Hypertension: Code(s): I10 - Essential (primary) hypertension Status: Acute Assessment and Plan: This is well controlled (7) Rheumatoid arthritis: Qualifiers: Rheumatoid arthritis location: hand Rheumatoid factor presence: unspecified presence Laterality: bilateral Qualified Code(s): M06.9 - Rheumatoid arthritis, unspecified Code(s): M06.9 - Rheumatoid arthritis, unspecified Status: Chronic Assessment and Plan: she is on methotrexate and as needed Prednisone (8) Anxiety: Code(s): F41.9 - Anxiety disorder, unspecified Status: Chronic Assessment and Plan: she takes Buspirone for this. She has never been on an antidepressant. (9) CAD (coronary artery disease): Qualifiers: Coronary Disease-Associated Artery/Lesion type: [place] artery [place] vs. transplanted heart: [place] heart Associated angina: without angina Qualified Code(s): I25.10 - Atherosclerotic heart disease of [place] coronary artery without angina pectoris Code(s): I25.10 - Atherosclerotic heart disease of [place] coronary artery without angina pectoris Status: Acute Assessment and Plan: No symptoms Subjective Date/time seen: 04/19/21 11:53 Interval history: Aracely had low blood pressure last night. She was given a saline fluid bolus. Blood pressure came up into the high 90s. Amlodipine and carvedilol were discontinued. This morning she feels better. Exam Narrative: WDWN in NAD skin no rash head ncat lungs clear to auscultation cor reg no rub or gallop abd BS+ nontender and soft ext no edema Or subcu nodules. Objective Data Vital Signs Vital Signs: Vital Signs - 24 hr 04/18/21 14:00 04/18/21 14:47 04/18/21 15:41 Temperature 36.7 C Pulse Rate 70 Respiratory Rate 18
[2021-04-19 13:44] VITALS: BP 131/65; PULSE 76; RESP 18; TEMP 36.2; O2SAT 100
--- NOTE | 2021-04-19 14:39 | PM.IMPN ---
Progress Note: A&P Assessment and Plan (1) Dyspnea on exertion: Code(s): R06.00 - Dyspnea, unspecified Status: Acute Assessment and Plan: Patient has no shortness of breath at present time. Will continue current treatment, patient is scheduled for stress test in the morning. (2) Chest pain: Code(s): R07.9 - Chest pain, unspecified Status: Acute Assessment and Plan: Will continue current treatment. Scheduled for stress test in the morning. (3) Coronary artery disease: Code(s): I25.10 - Atherosclerotic heart disease of [place] coronary artery without angina pectoris Status: Acute Assessment and Plan: Stable medically (4) Hypertension: Code(s): I10 - Essential (primary) hypertension Status: Acute Assessment and Plan: stable on medication (5) Gastroesophageal reflux disease: Code(s): K21.9 - Gastro-esophageal reflux disease without esophagitis Status: Acute Assessment and Plan: stable on medication (6) Hypothyroid: Code(s): E03.9 - Hypothyroidism, unspecified Status: Chronic Assessment and Plan: stable on medication (7) Hyperlipidemia: Code(s): E78.5 - Hyperlipidemia, unspecified Status: Chronic (8) Diet-controlled diabetes mellitus: Code(s): E11.9 - Type 2 diabetes mellitus without complications Status: Acute Assessment and Plan: stable on medication (9) Rheumatoid arthritis: Qualifiers: Laterality: bilateral Rheumatoid arthritis location: hand Rheumatoid factor presence: unspecified presence Qualified Code(s): M06.9 - Rheumatoid arthritis, unspecified Code(s): M06.9 - Rheumatoid arthritis, unspecified Status: Chronic Assessment and Plan: stable on medication (10) Chronic pain syndrome: Code(s): G89.4 - Chronic pain syndrome Status: Acute Assessment and Plan: controlled (11) Chronic, continuous use of opioids: Code(s): F11.90 - Opioid use, unspecified, uncomplicated Status: Acute Assessment and Plan: is stable (12) Hyponatremia: Code(s): E87.1 - Hypo-osmolality and hyponatremia Status: Acute Assessment and Plan: Sodium is 121.Nephrology consult ordered Additional Plan dyspnea on exertion /chest tightnessCT chest negative for PE shows cardiomegaly. BNP elevated at 485 chest x-ray unremarkable does not sound like asthma exacerbation. reviewed cardiology recommendation continue with diuresis. Optimal blood pressure control with Guard[place] bit better today. Added on isosorbide mononitrate will keep hydralazine on hold. Echocardiogram reviewed which showed 2. Normal left ventricular size and thickness with overall good contractility of all segments. Estimated ejection fraction is 60-65%. No segmental wall motion abnormalities. Grade 2 diastolic dysfunction is present. Global longitudinal strain is mildly diminished at-17%, suggestive of mild left ventricular systolic dysfunction. 3. Left atrial chamber dimension is moderately enlarged. 4. There is mild tricuspid valve regurgitation. 5. No pulmonary hypertension, estimated pulmonary arterial systolic pressure is 29 mmHg. 6. Normal sinus rhythm. Mild hyponatremia this has worsened since admission. Could be from dehydration normal saline was ordered looks euvolemic likely due to SIADH. Slightly better and remains stable History of coronary artery disease with balloon angioplasty of diagonal branch January 2018 Diabetes mellitus Hypertension ELVIRA noncompliant with CPAP Asthma Rheumatoid arthritis History of DVT anxiety disorder on buspirone does not take it on a regular basis advised to take it twice a day DVT prophylaxis SCDs Full code status pulmonary consultation as recommended by Cardiology Discussed about adding gabapentin for her chronic pain. She is agreeable to try. Improved pain after we started o
[2021-04-19 14:58] VITALS: BP 122/60
--- NOTE | 2021-04-19 15:19 | PCOTNOTE ---
Attempted to see patient this pm, pt declined stating Honey, I already did all of that yesterday, and I could care less about doing that crap today. Pt agreed to exercises, however stated, This is ridiculous. I've never had to do this when I've been in the hospital before. Why do I have to do it now? Discontinued exercises and educated patient on benefits of Occupational Therapy to prepare patient for discharge home. Patient has no concerns as pertains to OT and requests discharge from services. OT notified and discharge order entered.
[2021-04-19] MEDS: oxyCODONE HCL (*CRX) 5 MG TAB IR PO ×2 (15:20→22:19)
--- NOTE | 2021-04-19 16:03 | PCPTNOTE ---
PT attempted to see patient this afternoon, however patient with OT. PT will follow up with patient per plan of care.
[2021-04-19 16:08] LABS: Sodium 131 mmol/L (137-145)
[2021-04-19 20:00] VITALS: BP 132/53; PULSE 65; RESP 16; TEMP 36.6; O2SAT 100
[2021-04-19 20:10] VITALS: PULSE 60
[2021-04-19] MEDS: MONTELUKAST SODIUM 10 MG TABLET PO (20:33)
[2021-04-20] MEDS: oxyCODONE/ACETAMINOPHEN (*CRX) 5-325 MG TABLET 1 TABLET PO ×3 (03:35→18:37)
[2021-04-20] MEDS: LEVOTHYROXINE SODIUM 88 MCG TABLET PO (05:49)
[2021-04-20 06:00] VITALS: BP 146/57; PULSE 62; RESP 16; TEMP 36.2; O2SAT 96
[2021-04-20] MEDS: oxyCODONE HCL (*CRX) 5 MG TAB IR PO ×3 (06:16→18:36)
[2021-04-20 08:08] LABS: Albumin Level 3.5 g/dL (3.5-5.1); Anion Gap 7 mmol/L (8-16); Blood Urea Nitrogen 15 mg/dL (7-17); Calcium 9.5 mg/dL (8.4-10.2); Carbon Dioxide 24 mmol/L (22-30); Chloride 101 mmol/L (98-107); Estimated Glomerular Filt Rate > 60; Glucose 99 mg/dL (65-110); Phosphorus 4.1 mg/dL (2.5-4.5); Potassium 4.5 mmol/L (3.4-5.0); Sodium 132 mmol/L (137-145)
[2021-04-20] MEDS: EZETIMIBE 10 MG TABLET PO (09:20)
[2021-04-20] MEDS: Linaclotide [Linzess] 145 mcg capsule 145 EACH BY MOUTH (09:20)
[2021-04-20] MEDS: GABAPENTIN 100 MG CAPSULE PO ×3 (09:20→17:47)
[2021-04-20] MEDS: ISOSORBIDE MONONITRATE 30 MG TAB.ER.24H PO (09:20)
[2021-04-20] MEDS: LORATADINE 10 MG TABLET PO (09:20)
[2021-04-20] MEDS: ATORVASTATIN 40 MG TABLET PO (09:20)
[2021-04-20] MEDS: FOLIC ACID 1 MG TABLET PO (09:20)
[2021-04-20] MEDS: busPIRone HCL 10 MG TABLET PO ×2 (09:20→17:47)
[2021-04-20] MEDS: ASPIRIN 81 MG ENTERIC TABLET PO (09:20)
[2021-04-20] MEDS: CLOPIDOGREL BISULFATE 75 MG TABLET PO (09:20)
[2021-04-20] MEDS: PANTOPRAZOLE 40 MG TABLET PO (09:20)
[2021-04-20] MEDS: SODIUM CHLORIDE 1 GM TABLET PO (09:20)
[2021-04-20] MEDS: VALSARTAN 160 MG TABLET PO (09:20)
[2021-04-20] MEDS: FLUTICASONE PROPIONATE 0.05% NA SPR 16 GM BTL (*BKC) 1 SPRAY NASAL ×2 (09:21→17:47)
--- NOTE | 2021-04-20 09:40 | PM.PNNEP ---
Progress Note: A&P Assessment and Plan (1) Hyponatremia: Code(s): E87.1 - Hypo-osmolality and hyponatremia Status: Acute Assessment and Plan: the patient has chronic hyponatremia. This is dated back to 2006. She says she has been on opioid pain medications for many years. cortisol level is very low. Cortrosyn stim test was normal. TSH is okay. SPEP is pending as well as osmolality. Main cause of this is most likely the opioids 8/2 Na 121, 123 8/3 Na 124 then 122 8/4 Na 129 then 124 then 131 8/5 Na 132 8/6 Na 132 I think the low 130s is about as good as were going to get. currently the patient is on fluid restriction of 1200cc, and sodium chloride tablets twice a day. will increase fluid restriction [id number]. Reduce sodium tablets to 1 a day repeat sodium in the morning (2) Acute on chronic diastolic (congestive) heart failure: Code(s): I50.33 - Acute on chronic diastolic (congestive) heart failure Status: Acute Assessment and Plan: The patient is getting diuretics. She feels better than she did when she got here. echo shows grade 2 diastolic dysfunction but normal systolic function. Lexiscan was negative for ischemia. (3) Gastroesophageal reflux disease: Code(s): K21.9 - Gastro-esophageal reflux disease without esophagitis Status: Acute Assessment and Plan: No symptoms of this right now (4) Chronic, continuous use of opioids: Code(s): F11.90 - Opioid use, unspecified, uncomplicated Status: Acute Assessment and Plan: she continues on these. Even though these are the cause of the hyponatremia would just have to work around them as her primary care physician adjusts the opioids. (5) Obstructive sleep apnea: Code(s): G47.33 - Obstructive sleep apnea (adult) (pediatric) Status: Acute Assessment and Plan: She is getting evaluated by Pulmonary. Could she have other causes of shortness of breath besides heart failure? (6) Hypertension: Code(s): I10 - Essential (primary) hypertension Status: Acute Assessment and Plan: This is well controlled (7) Rheumatoid arthritis: Qualifiers: Rheumatoid arthritis location: hand Rheumatoid factor presence: unspecified presence Laterality: bilateral Qualified Code(s): M06.9 - Rheumatoid arthritis, unspecified Code(s): M06.9 - Rheumatoid arthritis, unspecified Status: Chronic Assessment and Plan: she is on methotrexate and as needed Prednisone (8) Anxiety: Code(s): F41.9 - Anxiety disorder, unspecified Status: Chronic Assessment and Plan: she takes Buspirone for this. She has never been on an antidepressant. (9) CAD (coronary artery disease): Qualifiers: Coronary Disease-Associated Artery/Lesion type: [place] artery [place] vs. transplanted heart: [place] heart Associated angina: without angina Qualified Code(s): I25.10 - Atherosclerotic heart disease of [place] coronary artery without angina pectoris Code(s): I25.10 - Atherosclerotic heart disease of [place] coronary artery without angina pectoris Status: Acute Assessment and Plan: No symptoms Subjective Date/time seen: 04/20/21 09:40 Interval history: Aracely had a rough night because her roommate was loud. She has no shortness of breath. Blood pressure has been stable. Exam Narrative: WDWN in NAD skin no rash Or subcu nodules head ncat lungs clear to auscultation cor reg no rub or gallop abd BS+ nontender and soft ext no edema Or subcu nodules. Objective Data Vital Signs Vital Signs: Vital Signs - 24 hr 04/19/21 13:44 04/19/21 14:58 04/19/21 20:00 Temperature 36.2 C L 36.6 C Pulse Rate 76 65 Respiratory Rate 18 16 Blood Pressure 131/65 122/60 132/53 L Pulse Oximetry 100 100 04/19/21 20:10 04/20/21 06:00 Temperature 36.2 C L Pulse Rate 60 6
--- NOTE | 2021-04-20 09:44 | PCPTNOTE ---
Patient declined PT at this time. Patient states she did not get any sleep last night due to roommate. Patient requests PT return later today.
[2021-04-20] MEDS: FLUTICASONE/SALMETEROL 115-21 MCG INHALER 1 PUFF 2 PUFF INHALATION ×2 (11:22→21:45)
[2021-04-20 12:28] LABS: Osmolality, Urine 254 mOsm/kg (50-1200)
--- NOTE | 2021-04-20 14:14 | P.PNIM_ITS ---
Progress Note: A&P Assessment and Plan (1) Dyspnea on exertion: Code(s): R06.00 - Dyspnea, unspecified Status: Acute Assessment and Plan: Patient has no shortness of breath at present time. Will continue current treatment, patient is scheduled for stress test in the morning. (2) Chest pain: Code(s): R07.9 - Chest pain, unspecified Status: Acute Assessment and Plan: Will continue current treatment. Scheduled for stress test in the morning. (3) Coronary artery disease: Code(s): I25.10 - Atherosclerotic heart disease of [place] coronary artery without angina pectoris Status: Acute Assessment and Plan: Stable medically (4) Hypertension: Code(s): I10 - Essential (primary) hypertension Status: Acute Assessment and Plan: stable on medication (5) Gastroesophageal reflux disease: Code(s): K21.9 - Gastro-esophageal reflux disease without esophagitis Status: Acute Assessment and Plan: stable on medication (6) Hypothyroid: Code(s): E03.9 - Hypothyroidism, unspecified Status: Chronic Assessment and Plan: stable on medication (7) Hyperlipidemia: Code(s): E78.5 - Hyperlipidemia, unspecified Status: Chronic (8) Diet-controlled diabetes mellitus: Code(s): E11.9 - Type 2 diabetes mellitus without complications Status: Acute Assessment and Plan: stable on medication (9) Rheumatoid arthritis: Qualifiers: Rheumatoid arthritis location: hand Rheumatoid factor presence: unspecified presence Laterality: bilateral Qualified Code(s): M06.9 - Rheumatoid arthritis, unspecified Code(s): M06.9 - Rheumatoid arthritis, unspecified Status: Chronic Assessment and Plan: stable on medication (10) Chronic pain syndrome: Code(s): G89.4 - Chronic pain syndrome Status: Acute Assessment and Plan: controlled (11) Chronic, continuous use of opioids: Code(s): F11.90 - Opioid use, unspecified, uncomplicated Status: Acute Assessment and Plan: is stable (12) Hyponatremia: Code(s): E87.1 - Hypo-osmolality and hyponatremia Status: Acute Assessment and Plan: Sodium is 121.Nephrology consult ordered Additional Plan dyspnea on exertion /chest tightnessCT chest negative for PE shows cardiomegaly. BNP elevated at 485 chest x-ray unremarkable does not sound like asthma exacerbation. reviewed cardiology recommendation continue with diuresis. Optimal blood pressure control with Guard[place] bit better today. Added on isosorbide mononitrate will keep hydralazine on hold. Echocardiogram reviewed which showed 2. Normal left ventricular size and thickness with overall good contractility of all segments. Estimated ejection fraction is 60-65%. No segmental wall motion abnormalities. Grade 2 diastolic dysfunction is present. Global longitudinal strain is mildly diminished at-17%, suggestive of mild left ventricular systolic dysfunction. 3. Left atrial chamber dimension is moderately enlarged. 4. There is mild tricuspid valve regurgitation. 5. No pulmonary hypertension, estimated pulmonary arterial systolic pressure is 29 mmHg. 6. Normal sinus rhythm. Mild hyponatremia this has worsened since admission. Could be from dehydration normal saline was ordered looks euvolemic likely due to SIADH. Slightly better and remains stable History of coronary artery disease with balloon angioplasty of diagonal branch January 2018 Diabetes mellitus
[2021-04-20 17:50] VITALS: BP 155/77; PULSE 65; RESP 18; TEMP 36.7; O2SAT 99
[2021-04-20 20:33] VITALS: PULSE 82
[2021-04-20] MEDS: carvediloL 12.5 MG TABLET PO (20:33)
[2021-04-20] MEDS: MONTELUKAST SODIUM 10 MG TABLET PO (20:33)
[2021-04-20 21:45] VITALS: PULSE 67
[2021-04-20 21:52] VITALS: BP 121/49; PULSE 60; RESP 16; TEMP 36.3; O2SAT 97
[2021-04-21] MEDS: oxyCODONE HCL (*CRX) 5 MG TAB IR PO ×4 (01:03→20:58)
[2021-04-21] MEDS: oxyCODONE/ACETAMINOPHEN (*CRX) 5-325 MG TABLET 1 TABLET PO ×4 (01:04→20:57)
[2021-04-21] MEDS: LEVOTHYROXINE SODIUM 88 MCG TABLET PO (05:29)
[2021-04-21 05:53] VITALS: BP 146/59; PULSE 65; RESP 16; TEMP 36.2; O2SAT 96
[2021-04-21 06:48] LABS: Albumin Level 3.6 g/dL (3.5-5.1); Anion Gap 7 mmol/L (8-16); Blood Urea Nitrogen 19 mg/dL (7-17); Calcium 9.2 mg/dL (8.4-10.2); Carbon Dioxide 24 mmol/L (22-30); Chloride 98 mmol/L (98-107); Estimated Glomerular Filt Rate > 60; Glucose 87 mg/dL (65-110); Phosphorus 4.5 mg/dL (2.5-4.5); Potassium 4.2 mmol/L (3.4-5.0); Sodium 129 mmol/L (137-145)
[2021-04-21] MEDS: FLUTICASONE PROPIONATE 0.05% NA SPR 16 GM BTL (*BKC) 1 SPRAY NASAL ×2 (08:24→17:51)
[2021-04-21] MEDS: Linaclotide [Linzess] 145 mcg capsule 145 EACH BY MOUTH (08:25)
[2021-04-21] MEDS: PANTOPRAZOLE 40 MG TABLET PO (08:25)
[2021-04-21] MEDS: LORATADINE 10 MG TABLET PO (08:25)
[2021-04-21] MEDS: busPIRone HCL 10 MG TABLET PO ×2 (08:25→17:51)
[2021-04-21] MEDS: EZETIMIBE 10 MG TABLET PO (08:25)
[2021-04-21] MEDS: GABAPENTIN 100 MG CAPSULE PO ×3 (08:25→17:51)
[2021-04-21] MEDS: ASPIRIN 81 MG ENTERIC TABLET PO (08:25)
[2021-04-21] MEDS: CLOPIDOGREL BISULFATE 75 MG TABLET PO (08:25)
[2021-04-21] MEDS: ISOSORBIDE MONONITRATE 30 MG TAB.ER.24H PO (08:25)
[2021-04-21] MEDS: ATORVASTATIN 40 MG TABLET PO (08:25)
[2021-04-21] MEDS: FOLIC ACID 1 MG TABLET PO (08:26)
[2021-04-21] MEDS: SODIUM CHLORIDE 1 GM TABLET PO ×2 (08:26→17:51)
[2021-04-21 08:27] VITALS: PULSE 81
[2021-04-21] MEDS: VALSARTAN 160 MG TABLET PO (08:27)
[2021-04-21] MEDS: carvediloL 12.5 MG TABLET PO ×2 (08:27→20:59)
[2021-04-21] MEDS: FLUTICASONE/SALMETEROL 115-21 MCG INHALER 1 PUFF 2 PUFF INHALATION ×2 (09:52→21:55)
[2021-04-21 10:09] LABS: Glucose Point of Care 246 mg/dl (65-105)
--- NOTE | 2021-04-21 10:14 | PCPTNOTE ---
Attempted to see pt. for physical therapy. Pt. reported having a bad headache at this time and therefore was unable to participate in PT. Pt. reports nursing was aware.
--- NOTE | 2021-04-21 11:04 | PM.PNNEP ---
Progress Note: A&P Assessment and Plan (1) Hyponatremia: Code(s): E87.1 - Hypo-osmolality and hyponatremia Status: Acute Assessment and Plan: the patient has chronic hyponatremia. This is dated back to 2006. She says she has been on opioid pain medications for many years. cortisol level is very low. Cortrosyn stim test was normal. TSH is okay. SPEP is pending as well as osmolality. Main cause of this is most likely the opioids 8/2 Na 121, 123 8/3 Na 124 then 122 8/4 Na 129 then 124 then 131 8/5 Na 132 8/6 Na 132 8/7 Na 129 I think the low 130s is about as good as were going to get. currently the patient is on fluid restriction of 1500cc, and sodium chloride tablets once a day will increase salt tablets to twice a day. repeat sodium this afternoon and tomorrow Long discussion with the patient. I think she is going to need to watch her fluids as long she is on pain pills. I do not see those stopping very soon. I told her she probably should settle in on about a qt and a half per day which is equal to six 8 oz glasses or four 12 oz glasses of water. If she has soda or any other liquid that would add as part of the quart and a half. She seems confused and feels like she has to hire someone to help her with her liquids. I tried to make it a simple is possible for her. I think when she gets home and looks at low the label she will figure this out. Possibly home health could help her with this? (2) Acute on chronic diastolic (congestive) heart failure: Code(s): I50.33 - Acute on chronic diastolic (congestive) heart failure Status: Acute Assessment and Plan: The patient is getting diuretics. She feels better than she did when she got here. echo shows grade 2 diastolic dysfunction but normal systolic function. Lexiscan was negative for ischemia. (3) Gastroesophageal reflux disease: Code(s): K21.9 - Gastro-esophageal reflux disease without esophagitis Status: Acute Assessment and Plan: No symptoms of this right now (4) Chronic, continuous use of opioids: Code(s): F11.90 - Opioid use, unspecified, uncomplicated Status: Acute Assessment and Plan: she continues on these. Even though these are the cause of the hyponatremia would just have to work around them as her primary care physician adjusts the opioids. (5) Obstructive sleep apnea: Code(s): G47.33 - Obstructive sleep apnea (adult) (pediatric) Status: Acute Assessment and Plan: She is getting evaluated by Pulmonary. Could she have other causes of shortness of breath besides heart failure? (6) Hypertension: Code(s): I10 - Essential (primary) hypertension Status: Acute Assessment and Plan: This is well controlled (7) Rheumatoid arthritis: Qualifiers: Rheumatoid arthritis location: hand Rheumatoid factor presence: unspecified presence Laterality: bilateral Qualified Code(s): M06.9 - Rheumatoid arthritis, unspecified Code(s): M06.9 - Rheumatoid arthritis, unspecified Status: Chronic Assessment and Plan: she is on methotrexate and as needed Prednisone (8) Anxiety: Code(s): F41.9 - Anxiety disorder, unspecified Status: Chronic Assessment and Plan: she takes Buspirone for this. She has never been on an antidepressant. (9) CAD (coronary artery disease): Qualifiers: Coronary Disease-Associated Artery/Lesion type: [place] artery [place] vs. transplanted heart: [place] heart Associated angina: without angina Qualified Code(s): I25.10 - Atherosclerotic heart disease of [place] coronary artery without angina pectoris Code(s): I25.10 - Atherosclerotic heart disease of [place] coronary artery without angina pectoris Status: Acute Assessment and Plan: No symptoms Subjective Date/time seen: 04/21/21 11:04 Interval history: Patient i
[2021-04-21 12:21] LABS: Glucose Point of Care 170 mg/dl (65-105)
--- NOTE | 2021-04-21 13:48 | PCPTNOTE ---
Attempted to see patient for PT treatment this afternoon. Pt. reports she is still not feeling up to therapy today. Will check back on patient tomorrow.
[2021-04-21 14:00] VITALS: BP 94/42; PULSE 75; RESP 16; TEMP 37.3; O2SAT 98
--- NOTE | 2021-04-21 14:02 | PM.IMPN ---
Progress Note: A&P Assessment and Plan (1) Hyponatremia: Code(s): E87.1 - Hypo-osmolality and hyponatremia Status: Acute Assessment and Plan: Sodium is 121 initially Likely due to chronic narcotic use 04/21 129, NaCl tabs increased back to bid, fluid restriction at 1500 ml/day (2) Dyspnea on exertion: Code(s): R06.00 - Dyspnea, unspecified Status: Acute Assessment and Plan: 04/21 diuresis over 4500 ml since admission No sign of CHF at this time. (3) Chest pain: Qualifiers: Chest pain type: unspecified Qualified Code(s): R07.9 - Chest pain, unspecified Code(s): R07.9 - Chest pain, unspecified Status: Acute Assessment and Plan: Lexiscan stress negative this admission. EF >70%. (4) Coronary artery disease: Qualifiers: Coronary Disease-Associated Artery/Lesion type: [place] artery [place] vs. transplanted heart: [place] heart Associated angina: without angina Qualified Code(s): I25.10 - Atherosclerotic heart disease of [place] coronary artery without angina pectoris Code(s): I25.10 - Atherosclerotic heart disease of [place] coronary artery without angina pectoris Status: Acute Assessment and Plan: Stable medically (5) Hypertension: Qualifiers: Hypertension type: unspecified Qualified Code(s): I10 - Essential (primary) hypertension Code(s): I10 - Essential (primary) hypertension Status: Acute Assessment and Plan: BP low on reduced doses vs home regimen 04/21: due to hypotension (sbp 94) stop nitrates and hydralazine, add parameters to carvediilol Non-compliance with home regimen is probable (6) Gastroesophageal reflux disease: Qualifiers: Esophagitis presence: esophagitis presence not specified Qualified Code(s): K21.9 - Gastro-esophageal reflux disease without esophagitis Code(s): K21.9 - Gastro-esophageal reflux disease without esophagitis Status: Acute Assessment and Plan: stable on medication (7) Hypothyroid: Qualifiers: Hypothyroidism type: unspecified Qualified Code(s): E03.9 - Hypothyroidism, unspecified Code(s): E03.9 - Hypothyroidism, unspecified Status: Chronic Assessment and Plan: stable on medication (8) Diet-controlled diabetes mellitus: Code(s): E11.9 - Type 2 diabetes mellitus without complications Status: Acute Assessment and Plan: 8/7 214, SSI added (9) Rheumatoid arthritis: Qualifiers: Rheumatoid arthritis location: hand Rheumatoid factor presence: unspecified presence Laterality: bilateral Qualified Code(s): M06.9 - Rheumatoid arthritis, unspecified Code(s): M06.9 - Rheumatoid arthritis, unspecified Status: Chronic Assessment and Plan: stable on medication (10) Chronic pain syndrome: Code(s): G89.4 - Chronic pain syndrome Status: Acute Assessment and Plan: stable with chronic narcotic use (11) Chronic, continuous use of opioids: Code(s): F11.90 - Opioid use, unspecified, uncomplicated Status: Acute Assessment and Plan: is stable Subjective Date/time seen: 04/21/21 14:02 Interval history: 04/21 visit: C/o generalized pain, mild to moderate, sometimes severe in right buttock and posterior thigh. Toelrated diet. Lightheaded. BP was 94 systolic this afternoon. Blood sugar was 214 this afternoon. Denied cp, incr sob, edema, gi/gu issues, abnl bleeding, focal weakness. Lives with . Primary caregiver for spouse who has Alzheimer dementia. Review of Systems Review of Systems: All systems reviewed & are unremarkable except as noted in HPI and below Exam Narrative: HEENT: PERRL, sclerae nonicteric, pharyngeal mucosa pink and intact NECK: No JVD, adenopathy, or thyromegaly CHEST: Clear to auscultation. Normal effort. HEART: NL S1/S2, regular, no murmur ABDOMEN: BS+, soft, nontender, no ma
[2021-04-21 16:28] LABS: Sodium 127 mmol/L (137-145)
[2021-04-21 17:47] LABS: Glucose Point of Care 95 mg/dl (65-105)
[2021-04-21 20:59] VITALS: PULSE 72
[2021-04-21] MEDS: MONTELUKAST SODIUM 10 MG TABLET PO (20:59)
[2021-04-21 21:36] LABS: Glucose Point of Care 139 mg/dl (65-105)
[2021-04-21 22:00] VITALS: BP 130/50; PULSE 62; RESP 18; TEMP 36.5; O2SAT 98
[2021-04-22] VITALS (10 sets, daily range): BP systolic 72–172; BP diastolic 38–72; PULSE 63–67; RESP 16–18; TEMP 35.9–37; O2SAT 97–98
[2021-04-22] MEDS: oxyCODONE HCL (*CRX) 5 MG TAB IR PO ×2 (06:07→20:33)
[2021-04-22] MEDS: oxyCODONE/ACETAMINOPHEN (*CRX) 5-325 MG TABLET 1 TABLET PO ×2 (06:08→20:34)
[2021-04-22] MEDS: LEVOTHYROXINE SODIUM 88 MCG TABLET PO (06:08)
[2021-04-22 07:07] LABS: Glucose Point of Care 99 mg/dl (65-105)
[2021-04-22] MEDS: FLUTICASONE/SALMETEROL 115-21 MCG INHALER 1 PUFF 2 PUFF INHALATION ×2 (08:16→19:56)
[2021-04-22] MEDS: GABAPENTIN 100 MG CAPSULE PO ×2 (08:21→12:44)
[2021-04-22] MEDS: busPIRone HCL 10 MG TABLET PO ×2 (08:21→17:24)
[2021-04-22] MEDS: SODIUM CHLORIDE 1 GM TABLET PO ×2 (08:21→17:24)
[2021-04-22] MEDS: CLOPIDOGREL BISULFATE 75 MG TABLET PO (08:21)
[2021-04-22] MEDS: PANTOPRAZOLE 40 MG TABLET PO (08:21)
[2021-04-22] MEDS: EZETIMIBE 10 MG TABLET PO (08:21)
[2021-04-22] MEDS: FLUTICASONE PROPIONATE 0.05% NA SPR 16 GM BTL (*BKC) 1 SPRAY NASAL ×2 (08:21→17:24)
[2021-04-22] MEDS: carvediloL 12.5 MG TABLET PO (08:22)
[2021-04-22] MEDS: ATORVASTATIN 40 MG TABLET PO (08:22)
[2021-04-22] MEDS: Linaclotide [Linzess] 145 mcg capsule 145 EACH BY MOUTH (08:24)
[2021-04-22] MEDS: VALSARTAN 160 MG TABLET PO (08:24)
[2021-04-22] MEDS: LORATADINE 10 MG TABLET PO (08:24)
[2021-04-22] MEDS: ASPIRIN 81 MG ENTERIC TABLET PO (08:25)
[2021-04-22] MEDS: FOLIC ACID 1 MG TABLET PO (08:25)
[2021-04-22 08:51] LABS: Albumin Level 3.7 g/dL (3.5-5.1); Anion Gap 10 mmol/L (8-16); Blood Urea Nitrogen 19 mg/dL (7-17); Calcium 9.2 mg/dL (8.4-10.2); Carbon Dioxide 25 mmol/L (22-30); Chloride 94 mmol/L (98-107); Estimated Glomerular Filt Rate > 60; Glucose 146 mg/dL (65-110); Phosphorus 4.2 mg/dL (2.5-4.5); Potassium 3.9 mmol/L (3.4-5.0); Sodium 129 mmol/L (137-145)
[2021-04-22] MEDS: SODIUM CHLORIDE 0.9% IV 250 ML 999 ML IV CONT (09:51)
[2021-04-22 11:59] LABS: Glucose Point of Care 103 mg/dl (65-105)
--- NOTE | 2021-04-22 14:53 | PM.PNNEP ---
Progress Note: A&P Assessment and Plan (1) Hyponatremia: Code(s): E87.1 - Hypo-osmolality and hyponatremia Status: Acute Assessment and Plan: the patient has chronic hyponatremia. This is dated back to 2006. She says she has been on opioid pain medications for many years. cortisol level is very low. Cortrosyn stim test was normal. TSH is okay. SPEP is pending as well as osmolality. Main cause of this is most likely the opioids 8/2 Na 121, 123 8/3 Na 124 then 122 8/4 Na 129 then 124 then 131 8/5 Na 132 8/6 Na 132 8/7 Na 129 8/8 Na 129 I think the low 130s is about as good as were going to get. currently the patient is on fluid restriction of 1500cc, and sodium chloride tablet twice a day Continue this therapy. (2) Acute on chronic diastolic (congestive) heart failure: Code(s): I50.33 - Acute on chronic diastolic (congestive) heart failure Status: Acute Assessment and Plan: The patient is getting diuretics. She feels better than she did when she got here. echo shows grade 2 diastolic dysfunction but normal systolic function. Lexiscan was negative for ischemia. Blood pressure dropped today. Will stop the valsartan. (3) Gastroesophageal reflux disease: Qualifiers: Esophagitis presence: esophagitis presence not specified Qualified Code(s): K21.9 - Gastro-esophageal reflux disease without esophagitis Code(s): K21.9 - Gastro-esophageal reflux disease without esophagitis Status: Acute Assessment and Plan: No symptoms of this right now (4) Chronic, continuous use of opioids: Code(s): F11.90 - Opioid use, unspecified, uncomplicated Status: Acute Assessment and Plan: she continues on these. Even though these are the cause of the hyponatremia would just have to work around them as her primary care physician adjusts the opioids. (5) Obstructive sleep apnea: Code(s): G47.33 - Obstructive sleep apnea (adult) (pediatric) Status: Acute Assessment and Plan: She is getting evaluated by Pulmonary. Could she have other causes of shortness of breath besides heart failure? (6) Hypertension: Qualifiers: Hypertension type: unspecified Qualified Code(s): I10 - Essential (primary) hypertension Code(s): I10 - Essential (primary) hypertension Status: Acute Assessment and Plan: This is well controlled (7) Rheumatoid arthritis: Qualifiers: Rheumatoid arthritis location: hand Rheumatoid factor presence: unspecified presence Laterality: bilateral Qualified Code(s): M06.9 - Rheumatoid arthritis, unspecified Code(s): M06.9 - Rheumatoid arthritis, unspecified Status: Chronic Assessment and Plan: she is on methotrexate and as needed Prednisone (8) Anxiety: Code(s): F41.9 - Anxiety disorder, unspecified Status: Chronic Assessment and Plan: she takes Buspirone for this. She has never been on an antidepressant. feels bad with the gabapentin. she wants off this. will stop this. (9) CAD (coronary artery disease): Qualifiers: Coronary Disease-Associated Artery/Lesion type: [place] artery [place] vs. transplanted heart: [place] heart Associated angina: without angina Qualified Code(s): I25.10 - Atherosclerotic heart disease of [place] coronary artery without angina pectoris Code(s): I25.10 - Atherosclerotic heart disease of [place] coronary artery without angina pectoris Status: Acute Assessment and Plan: No symptoms Subjective Date/time seen: 04/22/21 14:53 Interval history: Patient's blood pressure dropped to 84 this morning. This occurred after she got her valsartan and carvedilol. Patient is still thirsty. Exam Narrative: WDWN in NAD skin no rash Or subcu nodules head ncat lungs clear cor reg no rub or gallop abd BS+ nontender and soft ext no edema
--- NOTE | 2021-04-22 14:56 | PM.IMPN ---
Progress Note: A&P Assessment and Plan (1) Hyponatremia: Code(s): E87.1 - Hypo-osmolality and hyponatremia Status: Acute Assessment and Plan: Sodium is 121 initially Likely due to chronic narcotic use 04/21 129, NaCl tabs increased back to bid, fluid restriction at 1500 ml/day 04/22 Na 129 (2) Hypertension: Qualifiers: Hypertension type: unspecified Qualified Code(s): I10 - Essential (primary) hypertension Code(s): I10 - Essential (primary) hypertension Status: Acute Assessment and Plan: BP low on reduced doses vs home regimen 04/21: due to hypotension (sbp 94) stop nitrates and hydralazine, add parameters to carvediilol 04/22: Low BP in afternoon with only AM valsartan. Carvedilol AM dose held, then dc'd. D/c'd valsartan. HS Metoprolol due to hx CAD. Consider midodrine for orthostatic hypotension. Consider early dysautonomia. (3) Dyspnea on exertion: Code(s): R06.00 - Dyspnea, unspecified Status: Acute Assessment and Plan: 04/21 diuresis over 4500 ml since admission No sign of CHF at this time. (4) Chest pain: Qualifiers: Chest pain type: unspecified Qualified Code(s): R07.9 - Chest pain, unspecified Code(s): R07.9 - Chest pain, unspecified Status: Acute Assessment and Plan: Lexiscan stress negative this admission. EF >70%. (5) Coronary artery disease: Qualifiers: Coronary Disease-Associated Artery/Lesion type: [place] artery [place] vs. transplanted heart: [place] heart Associated angina: without angina Qualified Code(s): I25.10 - Atherosclerotic heart disease of [place] coronary artery without angina pectoris Code(s): I25.10 - Atherosclerotic heart disease of [place] coronary artery without angina pectoris Status: Acute Assessment and Plan: Stable medically (6) Gastroesophageal reflux disease: Qualifiers: Esophagitis presence: esophagitis presence not specified Qualified Code(s): K21.9 - Gastro-esophageal reflux disease without esophagitis Code(s): K21.9 - Gastro-esophageal reflux disease without esophagitis Status: Acute Assessment and Plan: stable on medication (7) Hypothyroid: Qualifiers: Hypothyroidism type: unspecified Qualified Code(s): E03.9 - Hypothyroidism, unspecified Code(s): E03.9 - Hypothyroidism, unspecified Status: Chronic Assessment and Plan: stable on medication (8) Diet-controlled diabetes mellitus: Code(s): E11.9 - Type 2 diabetes mellitus without complications Status: Acute Assessment and Plan: 04/21 214, SSI added (9) Rheumatoid arthritis: Qualifiers: Rheumatoid arthritis location: hand Rheumatoid factor presence: unspecified presence Laterality: bilateral Qualified Code(s): M06.9 - Rheumatoid arthritis, unspecified Code(s): M06.9 - Rheumatoid arthritis, unspecified Status: Chronic Assessment and Plan: stable on medication (10) Chronic pain syndrome: Code(s): G89.4 - Chronic pain syndrome Status: Acute Assessment and Plan: stable with chronic narcotic use (11) Chronic, continuous use of opioids: Code(s): F11.90 - Opioid use, unspecified, uncomplicated Status: Acute Assessment and Plan: is stable Subjective Date/time seen: 04/22/21 14:56 Interval history: 04/22 visit: C/o generalized pain, mild to moderate, sometimes severe in right buttock and posterior thigh. Tolerated diet. Still orthostatic. Denied cp, incr sob, edema, gi/gu issues, abnl bleeding, focal weakness. ANGRY THAT SHE IS STILL HERE AND THAT SHE DOES NOT KNOW WHAT IS GOING ON. FELT BETTER AFTER HER QUESTIONS WERE ADDRESSED AND HER CONCERNS HEARD. Lives with . Primary caregiver for spouse who has Alzheimer dementia. Review of Systems Review of Systems: All systems reviewed & are unremarkable except as noted in HPI
[2021-04-22 16:58] LABS: Glucose Point of Care 132 mg/dl (65-105)
[2021-04-22] MEDS: MONTELUKAST SODIUM 10 MG TABLET PO (20:15)
[2021-04-22] MEDS: METOPROLOL SUCCINATE EXT REL 12.5 MG TABCR PO (20:15)
[2021-04-22] MEDS: INSULIN GLARGINE (*BKC) 100 UNITS/ML 10 UNITS SUB-Q (20:16)
[2021-04-22 21:50] LABS: Glucose Point of Care 154 mg/dl (65-105)
[2021-04-23] VITALS (8 sets, daily range): BP systolic 115–178; BP diastolic 55–82; PULSE 58–84; RESP 18; TEMP 36.2–36.6; O2SAT 97–98
[2021-04-23] MEDS: oxyCODONE HCL (*CRX) 5 MG TAB IR PO ×3 (05:23→21:12)
[2021-04-23] MEDS: oxyCODONE/ACETAMINOPHEN (*CRX) 5-325 MG TABLET 1 TABLET PO ×3 (05:27→21:12)
[2021-04-23] MEDS: LEVOTHYROXINE SODIUM 88 MCG TABLET PO (06:39)
[2021-04-23 07:00] LABS: Albumin Level 3.5 g/dL (3.5-5.1); Anion Gap 7 mmol/L (8-16); Blood Urea Nitrogen 20 mg/dL (7-17); Calcium 9.7 mg/dL (8.4-10.2); Carbon Dioxide 26 mmol/L (22-30); Chloride 101 mmol/L (98-107); Estimated Glomerular Filt Rate > 60; Glucose 91 mg/dL (65-110); Phosphorus 3.9 mg/dL (2.5-4.5); Potassium 4.3 mmol/L (3.4-5.0); Sodium 134 mmol/L (137-145)
[2021-04-23] MEDS: FLUTICASONE/SALMETEROL 115-21 MCG INHALER 1 PUFF 2 PUFF INHALATION ×2 (08:03→20:22)
[2021-04-23 08:24] LABS: Glucose Point of Care 107 mg/dl (65-105)
[2021-04-23] MEDS: ASPIRIN 81 MG ENTERIC TABLET PO (08:48)
[2021-04-23] MEDS: FLUTICASONE PROPIONATE 0.05% NA SPR 16 GM BTL (*BKC) 1 SPRAY NASAL ×2 (08:49→16:45)
[2021-04-23] MEDS: Linaclotide [Linzess] 145 mcg capsule 145 EACH BY MOUTH (08:49)
[2021-04-23] MEDS: ATORVASTATIN 40 MG TABLET PO (08:49)
[2021-04-23] MEDS: EZETIMIBE 10 MG TABLET PO (08:49)
[2021-04-23] MEDS: busPIRone HCL 10 MG TABLET PO ×2 (08:49→16:46)
[2021-04-23] MEDS: FOLIC ACID 1 MG TABLET PO (08:49)
[2021-04-23] MEDS: CLOPIDOGREL BISULFATE 75 MG TABLET PO (08:49)
[2021-04-23] MEDS: PANTOPRAZOLE 40 MG TABLET PO (08:50)
[2021-04-23] MEDS: LORATADINE 10 MG TABLET PO (08:50)
[2021-04-23] MEDS: SODIUM CHLORIDE 1 GM TABLET PO ×2 (08:50→16:49)
[2021-04-23 12:01] LABS: Glucose Point of Care 144 mg/dl (65-105)
--- NOTE | 2021-04-23 13:32 | PM.IMPN ---
Progress Note: A&P Assessment and Plan (1) Hyponatremia: Code(s): E87.1 - Hypo-osmolality and hyponatremia Status: Acute Assessment and Plan: Sodium is 121 initially Likely due to chronic narcotic use 04/21 129, NaCl tabs increased back to bid, fluid restriction at 1500 ml/day 04/22 Na 129 (2) Hypertension: Qualifiers: Hypertension type: unspecified Qualified Code(s): I10 - Essential (primary) hypertension Code(s): I10 - Essential (primary) hypertension Status: Acute Assessment and Plan: BP low on reduced doses vs home regimen 04/21: due to hypotension (sbp 94) stop nitrates and hydralazine, add parameters to carvediilol 04/22: Low BP in afternoon with only AM valsartan. Carvedilol AM dose held, then dc'd. D/c'd valsartan. HS Metoprolol due to hx CAD. Consider midodrine for orthostatic hypotension. Consider early dysautonomia. (3) Dyspnea on exertion: Code(s): R06.00 - Dyspnea, unspecified Status: Acute Assessment and Plan: 04/21 diuresis over 4500 ml since admission No sign of CHF at this time. (4) Chest pain: Qualifiers: Chest pain type: unspecified Qualified Code(s): R07.9 - Chest pain, unspecified Code(s): R07.9 - Chest pain, unspecified Status: Acute Assessment and Plan: Lexiscan stress negative this admission. EF >70%. (5) Coronary artery disease: Qualifiers: Coronary Disease-Associated Artery/Lesion type: [place] artery [place] vs. transplanted heart: [place] heart Associated angina: without angina Qualified Code(s): I25.10 - Atherosclerotic heart disease of [place] coronary artery without angina pectoris Code(s): I25.10 - Atherosclerotic heart disease of [place] coronary artery without angina pectoris Status: Acute Assessment and Plan: Stable medically (6) Gastroesophageal reflux disease: Qualifiers: Esophagitis presence: esophagitis presence not specified Qualified Code(s): K21.9 - Gastro-esophageal reflux disease without esophagitis Code(s): K21.9 - Gastro-esophageal reflux disease without esophagitis Status: Acute Assessment and Plan: stable on medication (7) Hypothyroid: Qualifiers: Hypothyroidism type: unspecified Qualified Code(s): E03.9 - Hypothyroidism, unspecified Code(s): E03.9 - Hypothyroidism, unspecified Status: Chronic Assessment and Plan: stable on medication (8) Diet-controlled diabetes mellitus: Code(s): E11.9 - Type 2 diabetes mellitus without complications Status: Acute Assessment and Plan: 04/21 214, SSI added (9) Rheumatoid arthritis: Qualifiers: Rheumatoid arthritis location: hand Rheumatoid factor presence: unspecified presence Laterality: bilateral Qualified Code(s): M06.9 - Rheumatoid arthritis, unspecified Code(s): M06.9 - Rheumatoid arthritis, unspecified Status: Chronic Assessment and Plan: stable on medication (10) Chronic pain syndrome: Code(s): G89.4 - Chronic pain syndrome Status: Acute Assessment and Plan: stable with chronic narcotic use (11) Chronic, continuous use of opioids: Code(s): F11.90 - Opioid use, unspecified, uncomplicated Status: Acute Assessment and Plan: is stable Additional Plan dyspnea on exertion /chest tightnessCT chest negative for PE shows cardiomegaly. BNP elevated at 485 chest x-ray unremarkable does not sound like asthma exacerbation. reviewed cardiology recommendation continue with diuresis. Optimal blood pressure control with [place] bit better today. Added on isosorbide mononitrate will keep hydralazine on hold. Echocardiogram reviewed which showed 2. Normal left ventricular size and thickness with overall good contractility of all segments. Estimated ejection fraction is 60-65%. No segmental wall motion abnormalities. Grade 2 diastolic dysfunction
--- NOTE | 2021-04-23 15:47 | PCPTNOTE ---
PT attempted to see patient 3x. Patient declined due to not feeling well and requested PT return later. PT will continue PT per plan of care.
--- NOTE | 2021-04-23 16:03 | PM.PNNEP ---
Progress Note: A&P Assessment and Plan (1) Hyponatremia: Code(s): E87.1 - Hypo-osmolality and hyponatremia Status: Acute Assessment and Plan: acute on chronic hyponatremia has been present since at least 2006 the main cause is likely chronic opiod use cortisol low but stim test was normal ; TSH okay sodium of around 130s is probably acceptable for her continue fluid restriction and salt tabs at this time; diuretics in play but mainly for #2 follow trend of repeat sodium levels (2) Acute on chronic diastolic (congestive) heart failure: Code(s): I50.33 - Acute on chronic diastolic (congestive) heart failure Status: Acute Assessment and Plan: resolving off diuretics follow volume status (3) Hypertension: Qualifiers: Hypertension type: unspecified Qualified Code(s): I10 - Essential (primary) hypertension Code(s): I10 - Essential (primary) hypertension Status: Chronic Assessment and Plan: reasonable control at this time are opioids contributing to control(?) (4) Chronic, continuous use of opioids: Code(s): F11.90 - Opioid use, unspecified, uncomplicated Status: Acute Assessment and Plan: likely etiology of her hyponatremia as she will never be off this these medications, will work around this tissue (5) Rheumatoid arthritis: Qualifiers: Laterality: bilateral Rheumatoid arthritis location: hand Rheumatoid factor presence: unspecified presence Qualified Code(s): M06.9 - Rheumatoid arthritis, unspecified Code(s): M06.9 - Rheumatoid arthritis, unspecified Status: Chronic Assessment and Plan: on methotrexate and as needed Prednisone Will continue to follow. Subjective Date/time seen: 04/23/21 16:03 Chart reviewed - assuming care from Dr. Flanagan; no acute distress voiced aside from various complaints related to her difficulty ambulating as well as fluctuating blood sugars; no apparent issues/events overnight or earlier this AM. Exam Narrative: General: WD/WN female in NAD Heart: normal S1 and S2; no rub Lungs: clear to auscultation Abdomen: soft, nontender, nondistended, positive bowel sounds Extremities: no cyanosis or clubbing; no edema Skin: warm and dry Objective Data Vital Signs Vital Signs: Vital Signs Temp Pulse Resp BP Pulse Ox 04/23/21 14:00 36.2 C L 58 L 18 115/68 97 04/23/21 06:42 153/82 H 04/23/21 05:33 36.3 C L 61 18 97 04/23/21 01:10 67 178/55 H 04/22/21 22:10 67 155/72 H 04/22/21 20:15 35.9 C L 67 16 172/67 H 97 04/22/21 19:56 66 Intake/Output Intake/Output: Intake & Output 04/20/21 04/21/21 04/22/21 04/23/21 23:59 23:59 23:59 23:59 Intake Total 900 1210 1000 400 Output Total 2106 450 1000 Balance -1206 1210 550 -600 Meds/Results Medications: Active Medications Generic Name Dose Route Start Last Admin Trade Name Freq PRN Reason Stop Dose Admin Albuterol 1 puff 04/09/21 22:41 Albuterol Sulfate (*Sp) Aerosol 1 Puff INHALATION Q4H PRN Wheezing Aspirin 81 mg 04/10/21 09:00 04/23/21 08:48 Aspirin 81 Mg Enteric Tablet PO 81 mg DAILY GINO Administration Atorvastatin Calcium 40 mg 04/10/21 09:00 04/23/21 08:49 Atorvastatin 40 Mg Tablet PO 40 mg DAILY GINO Administration Buspirone HCl 10 mg 04/11/21 17:00 04/23/21 16:46 Buspirone Hcl 10 Mg Tablet PO 10 mg BID GINO Administration Clopidogrel Bisulfate 75 mg 04/10/21 09:00 04/23/21 08:49 Clopidogrel Bisulfate 75 Mg Tablet PO 75 mg DAILY GINO Administration Dextrose 12.5 gm 04/21/21 09:56 Dextrose 50% 25 Gm/50 Ml Syringe IV PUSH PRN PRN Hypoglycemia Protocol Docusate Sodium 100 mg 04/15/21 13:30 04/15/21 17:17 Docusate Sodium 100 Mg Capsule PO 100 mg DAILY PRN Administration Constipation Ezetimibe 10 mg 04/10/21 09:00 04/23/21 08:49
[2021-04-23 16:52] LABS: Glucose Point of Care 109 mg/dl (65-105)
[2021-04-23] MEDS: MONTELUKAST SODIUM 10 MG TABLET PO (21:08)
[2021-04-23] MEDS: METOPROLOL SUCCINATE EXT REL 12.5 MG TABCR PO (21:08)
[2021-04-23 21:12] LABS: Glucose Point of Care 177 mg/dl (65-105)
[2021-04-23] MEDS: INSULIN GLARGINE (*BKC) 100 UNITS/ML 10 UNITS SUB-Q (21:16)
[2021-04-24] MEDS: oxyCODONE/ACETAMINOPHEN (*CRX) 5-325 MG TABLET 1 TABLET PO ×3 (02:07→17:19)
[2021-04-24] MEDS: oxyCODONE HCL (*CRX) 5 MG TAB IR PO ×3 (02:07→17:19)
[2021-04-24] MEDS: LEVOTHYROXINE SODIUM 88 MCG TABLET PO (05:53)
[2021-04-24 06:00] VITALS: BP 128/60; PULSE 63; RESP 18; TEMP 36.9; O2SAT 97
[2021-04-24 06:21] LABS: Albumin Level 3.5 g/dL (3.5-5.1); Anion Gap 9 mmol/L (8-16); Blood Urea Nitrogen 26 mg/dL (7-17); Calcium 9.5 mg/dL (8.4-10.2); Carbon Dioxide 24 mmol/L (22-30); Chloride 101 mmol/L (98-107); Estimated Glomerular Filt Rate > 60; Glucose 104 mg/dL (65-110); Phosphorus 4.4 mg/dL (2.5-4.5); Potassium 4.4 mmol/L (3.4-5.0); Sodium 134 mmol/L (137-145)
[2021-04-24 07:56] LABS: Glucose Point of Care 95 mg/dl (65-105)
[2021-04-24] MEDS: FLUTICASONE PROPIONATE 0.05% NA SPR 16 GM BTL (*BKC) 1 SPRAY NASAL ×2 (08:14→17:14)
[2021-04-24] MEDS: CLOPIDOGREL BISULFATE 75 MG TABLET PO (08:15)
[2021-04-24] MEDS: FOLIC ACID 1 MG TABLET PO (08:15)
[2021-04-24] MEDS: EZETIMIBE 10 MG TABLET PO (08:15)
[2021-04-24] MEDS: ASPIRIN 81 MG ENTERIC TABLET PO (08:15)
[2021-04-24] MEDS: ATORVASTATIN 40 MG TABLET PO (08:15)
[2021-04-24] MEDS: busPIRone HCL 10 MG TABLET PO ×2 (08:15→17:14)
[2021-04-24] MEDS: SODIUM CHLORIDE 1 GM TABLET PO ×2 (08:16→17:14)
[2021-04-24] MEDS: PANTOPRAZOLE 40 MG TABLET PO (08:16)
[2021-04-24] MEDS: LORATADINE 10 MG TABLET PO (08:16)
[2021-04-24] MEDS: Linaclotide [Linzess] 145 mcg capsule 145 EACH BY MOUTH (08:16)
[2021-04-24] MEDS: FLUTICASONE/SALMETEROL 115-21 MCG INHALER 1 PUFF 2 PUFF INHALATION ×2 (09:19→19:55)
--- NOTE | 2021-04-24 11:02 | PM.PNNEP ---
Progress Note: A&P Assessment and Plan (1) Hyponatremia: Code(s): E87.1 - Hypo-osmolality and hyponatremia Status: Acute Assessment and Plan: acute on chronic hyponatremia has been present since at least 2006 the main cause is likely chronic opiod use cortisol low but stim test was normal; TSH okay sodium of around 130s is probably acceptable for her continue fluid restriction and salt tabs at this time follow trend of repeat sodium levels (2) Acute on chronic diastolic (congestive) heart failure: Code(s): I50.33 - Acute on chronic diastolic (congestive) heart failure Status: Acute Assessment and Plan: resolving off diuretics follow volume status (3) Hypertension: Qualifiers: Hypertension type: unspecified Qualified Code(s): I10 - Essential (primary) hypertension Code(s): I10 - Essential (primary) hypertension Status: Chronic Assessment and Plan: reasonable control at this time are opioids contributing to control(?) (4) Chronic, continuous use of opioids: Code(s): F11.90 - Opioid use, unspecified, uncomplicated Status: Acute Assessment and Plan: likely etiology of her hyponatremia as she will never be off this these medications, will work around this tissue (5) Rheumatoid arthritis: Qualifiers: Rheumatoid arthritis location: hand Rheumatoid factor presence: unspecified presence Laterality: bilateral Qualified Code(s): M06.9 - Rheumatoid arthritis, unspecified Code(s): M06.9 - Rheumatoid arthritis, unspecified Status: Chronic Assessment and Plan: on methotrexate and as needed Prednisone Will continue to follow. Subjective Date/time seen: 04/24/21 11:02 Sodium stable if not continuing to improve; no acute complaints voiced at the time of my visit although once again mentions her concerns regarding difficulty ambulating and fluctuating blood sugars; no apparent distress noted. Exam Narrative: General: WD/WN female in NAD Heart: normal S1 and S2; no rub Lungs: clear to auscultation Abdomen: soft, nontender, nondistended, positive bowel sounds Extremities: no cyanosis or clubbing; no edema Skin: warm and intact Objective Data Vital Signs Vital Signs: Vital Signs Temp Pulse Resp BP Pulse Ox 04/24/21 06:00 36.9 C 63 18 128/60 97 04/23/21 22:00 36.6 C 63 18 130/67 98 04/23/21 21:08 84 04/23/21 20:23 65 04/23/21 20:00 84 18 97 04/23/21 14:00 36.2 C L 58 L 18 115/68 97 Intake/Output Intake/Output: Intake & Output 04/21/21 04/22/21 04/23/21 04/24/21 23:59 23:59 23:59 23:59 Intake Total 1210 1000 1150 0 Output Total 450 2850 600 Balance 1210 550 -1700 -600 Meds/Results Medications: Active Medications Generic Name Dose Route Start Last Admin Trade Name Freq PRN Reason Stop Dose Admin Albuterol 1 puff 04/09/21 22:41 Albuterol Sulfate (*Sp) Aerosol 1 Puff INHALATION Q4H PRN Wheezing Aspirin 81 mg 04/10/21 09:00 04/24/21 08:15 Aspirin 81 Mg Enteric Tablet PO 81 mg DAILY GINO Administration Atorvastatin Calcium 40 mg 04/10/21 09:00 04/24/21 08:15 Atorvastatin 40 Mg Tablet PO 40 mg DAILY GINO Administration Buspirone HCl 10 mg 04/11/21 17:00 04/24/21 08:15 Buspirone Hcl 10 Mg Tablet PO 10 mg BID GINO Administration Clopidogrel Bisulfate 75 mg 04/10/21 09:00 04/24/21 08:15 Clopidogrel Bisulfate 75 Mg Tablet PO 75 mg DAILY GINO Administration Dextrose 12.5 gm 04/21/21 09:56 Dextrose 50% 25 Gm/50 Ml Syringe IV PUSH PRN PRN Hypoglycemia Protocol Docusate Sodium 100 mg 04/15/21 13:30 04/15/21 17:17 Docusate Sodium 100 Mg Capsule PO 100 mg DAILY PRN Administration Constipation Ezetimibe 10 mg 04/10/21 09:00 04/24/21 08:15 Ezetimibe 10 Mg Tablet PO 10 mg DAILY GINO Administration Fluticasone Prop
--- NOTE | 2021-04-24 11:46 | PM.IMPN ---
Progress Note: A&P Assessment and Plan (1) Hyponatremia: Code(s): E87.1 - Hypo-osmolality and hyponatremia Status: Acute Assessment and Plan: Sodium is 121 initially Likely due to chronic narcotic use 04/21 129, NaCl tabs increased back to bid, fluid restriction at 1500 ml/day 04/22 Na 129 04/24 sodium 130 on salt tabs and fluid restriction nephrology following (2) Hypertension: Qualifiers: Hypertension type: unspecified Qualified Code(s): I10 - Essential (primary) hypertension Code(s): I10 - Essential (primary) hypertension Status: Acute Assessment and Plan: BP low on reduced doses vs home regimen 04/21: due to hypotension (sbp 94) stop nitrates and hydralazine, add parameters to carvediilol 04/22: Low BP in afternoon with only AM valsartan. Carvedilol AM dose held, then dc'd. D/c'd valsartan. HS Metoprolol due to hx CAD. Consider midodrine for orthostatic hypotension. Consider early dysautonomia. 04/24 will check her orthostatic vital (3) Dyspnea on exertion: Code(s): R06.00 - Dyspnea, unspecified Status: Acute Assessment and Plan: 04/21 diuresis over 4500 ml since admission No sign of CHF at this time. (4) Chest pain: Qualifiers: Chest pain type: unspecified Qualified Code(s): R07.9 - Chest pain, unspecified Code(s): R07.9 - Chest pain, unspecified Status: Acute Assessment and Plan: Lexiscan stress negative this admission. EF >70%. (5) Coronary artery disease: Qualifiers: Coronary Disease-Associated Artery/Lesion type: [place] artery [place] vs. transplanted heart: [place] heart Associated angina: without angina Qualified Code(s): I25.10 - Atherosclerotic heart disease of [place] coronary artery without angina pectoris Code(s): I25.10 - Atherosclerotic heart disease of [place] coronary artery without angina pectoris Status: Acute Assessment and Plan: Stable medically (6) Gastroesophageal reflux disease: Qualifiers: Esophagitis presence: esophagitis presence not specified Qualified Code(s): K21.9 - Gastro-esophageal reflux disease without esophagitis Code(s): K21.9 - Gastro-esophageal reflux disease without esophagitis Status: Acute Assessment and Plan: stable on medication (7) Hypothyroid: Qualifiers: Hypothyroidism type: unspecified Qualified Code(s): E03.9 - Hypothyroidism, unspecified Code(s): E03.9 - Hypothyroidism, unspecified Status: Chronic Assessment and Plan: stable on medication (8) Diet-controlled diabetes mellitus: Code(s): E11.9 - Type 2 diabetes mellitus without complications Status: Acute Assessment and Plan: 04/21 214, SSI added (9) Rheumatoid arthritis: Qualifiers: Rheumatoid arthritis location: hand Rheumatoid factor presence: unspecified presence Laterality: bilateral Qualified Code(s): M06.9 - Rheumatoid arthritis, unspecified Code(s): M06.9 - Rheumatoid arthritis, unspecified Status: Chronic Assessment and Plan: stable on medication (10) Chronic pain syndrome: Code(s): G89.4 - Chronic pain syndrome Status: Acute Assessment and Plan: stable with chronic narcotic use (11) Chronic, continuous use of opioids: Code(s): F11.90 - Opioid use, unspecified, uncomplicated Status: Acute Assessment and Plan: is stable Additional Plan dyspnea on exertion /chest tightnessCT chest negative for PE shows cardiomegaly. BNP elevated at 485 chest x-ray unremarkable does not sound like asthma exacerbation. reviewed cardiology recommendation continue with diuresis. Optimal blood pressure control with [place] bit better today. Added on isosorbide mononitrate will keep hydralazine on hold. Echocardiogram reviewed which showed 2. Normal left ventricular size and thickness with overall good contractility of all segments. E
[2021-04-24 12:30] LABS: Glucose Point of Care 122 mg/dl (65-105)
[2021-04-24 14:00] VITALS: BP 125/60; PULSE 69; RESP 18; TEMP 37.2; O2SAT 99
[2021-04-24 17:31] LABS: Glucose Point of Care 113 mg/dl (65-105)
[2021-04-24 20:00] VITALS: BP 131/58
[2021-04-24] MEDS: INSULIN GLARGINE (*BKC) 100 UNITS/ML 10 UNITS SUB-Q (20:59)
[2021-04-24 21:00] VITALS: PULSE 70
[2021-04-24] MEDS: MONTELUKAST SODIUM 10 MG TABLET PO (21:00)
[2021-04-24] MEDS: METOPROLOL SUCCINATE EXT REL 12.5 MG TABCR PO (21:00)
[2021-04-24 21:21] VITALS: BP 122/70; BP 132/68
[2021-04-24 21:37] LABS: Glucose Point of Care 140 mg/dl (65-105)
[2021-04-24 22:00] VITALS: BP 122/70; PULSE 65; RESP 18; TEMP 36.6; O2SAT 99
[2021-04-25] VITALS (7 sets, daily range): BP systolic 94–133; BP diastolic 49–78; PULSE 60–82; RESP 16–18; TEMP 36.2–36.7; O2SAT 97–99
[2021-04-25] MEDS: oxyCODONE/ACETAMINOPHEN (*CRX) 5-325 MG TABLET 1 TABLET PO ×5 (00:04→23:58)
[2021-04-25] MEDS: oxyCODONE HCL (*CRX) 5 MG TAB IR PO ×5 (00:06→23:58)
[2021-04-25] MEDS: LEVOTHYROXINE SODIUM 88 MCG TABLET PO (06:08)
[2021-04-25 06:35] LABS: Basophils Absolute Auto 0.1 K/mm3 (0.0-0.1); Basophils Percent Auto 0.8 % (0.2-1.2); Eosinophils Absolute Auto 0.2 K/mm3 (0-0.3); Eosinophils Percent Auto 2.2 % (0-4.4); Hematocrit 32.3 % (37.0-47.0); Immature Granulocyte Absolute 0.04 K/mm3 (0.00-0.031); Immature Granulocyte Percent A 0.4 % (0-0.5); Lymphocytes Absolute Auto 3.37 K/mm3 (0.9-3.2); Lymphocytes Percent Auto 36.6 % (18.3-44.2); Mean Corpuscular HGB Conc 34.1 g/dl (32-36); Mean Corpuscular Hemoglobin 30.1 pg (26-34); Mean Corpuscular Volume 88.5 fl (80-100); Mean Platelet Volume 9.6 fl (7.4-10.4); Monocytes Absolute Auto 0.7 K/mm3 (0.1-0.6); Monocytes Percent Auto 7.6 % (2.6-8.5); Neutrophils Absolute Auto 4.8 K/mm3 (1.3-6.7); Neutrophils Percent Auto 52.4 % (45.5-73.1); Platelet Count Result 290 k/mm3 (150-375); Red Blood Count 3.65 M/mm3 (4.2-5.4); White Blood Count 9.2 K/mm3 (4.5-10.0)
[2021-04-25 06:54] LABS: Albumin Level 3.5 g/dL (3.5-5.1); Anion Gap 10 mmol/L (8-16); Blood Urea Nitrogen 26 mg/dL (7-17); Calcium 9.3 mg/dL (8.4-10.2); Carbon Dioxide 24 mmol/L (22-30); Chloride 97 mmol/L (98-107); Estimated Glomerular Filt Rate > 60; Glucose 86 mg/dL (65-110); Phosphorus 4.5 mg/dL (2.5-4.5); Potassium 4.2 mmol/L (3.4-5.0); Sodium 131 mmol/L (137-145)
[2021-04-25 08:07] LABS: Glucose Point of Care 90 mg/dl (65-105)
[2021-04-25] MEDS: busPIRone HCL 10 MG TABLET PO ×2 (10:01→16:53)
[2021-04-25] MEDS: ASPIRIN 81 MG ENTERIC TABLET PO (10:01)
[2021-04-25] MEDS: PANTOPRAZOLE 40 MG TABLET PO (10:01)
[2021-04-25] MEDS: EZETIMIBE 10 MG TABLET PO (10:01)
[2021-04-25] MEDS: FLUTICASONE PROPIONATE 0.05% NA SPR 16 GM BTL (*BKC) 1 SPRAY NASAL ×2 (10:01→16:53)
[2021-04-25] MEDS: CLOPIDOGREL BISULFATE 75 MG TABLET PO (10:02)
[2021-04-25] MEDS: FOLIC ACID 1 MG TABLET PO (10:02)
[2021-04-25] MEDS: ATORVASTATIN 40 MG TABLET PO (10:02)
[2021-04-25] MEDS: Linaclotide [Linzess] 145 mcg capsule 145 EACH BY MOUTH (10:03)
[2021-04-25] MEDS: LORATADINE 10 MG TABLET PO (10:04)
[2021-04-25] MEDS: SODIUM CHLORIDE 1 GM TABLET PO ×2 (10:04→16:54)
--- NOTE | 2021-04-25 10:20 | WPDCDIQUERY2 ---
CDI Query Clarification Request -Acute on chronic diastolic CHF documented by cardiology and nephrology -Dyspnea on exertion, diuresed over 4500cc since admission and no signs of CHF at this time documented by hospitalists 04/10 Echo summary: EF 60-65%, grade 2 diastolic dysfunction Please clarify if acut on chronic diastolic CHF has been ruled in or ruled out. Also, if ruled out, please clarify cause/possible cause for patient's admitting symptoms of shortness of breath and chest pain. <Mallory Sousa RN - Last Filed: 04/25/21 10:32> Acute on chronic diastolic (congestive) heart failure: Code(s): I50.33 - Acute on chronic diastolic (congestive) heart failure Status: Acute Assessment and Plan: The patient is getting diuretics. She feels better than she did when she got here. echo shows grade 2 diastolic dysfunction but normal systolic function. Lexiscan was negative for ischemia. <Parul German MD - Last Filed: 04/25/21 17:30>
[2021-04-25 12:32] LABS: Glucose Point of Care 67 mg/dl (65-105)
[2021-04-25 13:19] LABS: Glucose Point of Care 90 mg/dl (65-105)
--- NOTE | 2021-04-25 16:53 | PM.PNNEP ---
Progress Note: A&P Assessment and Plan (1) Hyponatremia: Code(s): E87.1 - Hypo-osmolality and hyponatremia Status: Acute Assessment and Plan: acute on chronic hyponatremia has been present since at least 2006 the main cause is likely chronic opiod use cortisol low but stim test was normal; TSH okay sodium of around 130s is probably acceptable for her continue fluid restriction and salt tabs at this time follow trend of repeat sodium levels (2) Acute on chronic diastolic (congestive) heart failure: Code(s): I50.33 - Acute on chronic diastolic (congestive) heart failure Status: Acute Assessment and Plan: resolving off diuretics follow volume status (3) Hypertension: Qualifiers: Hypertension type: unspecified Qualified Code(s): I10 - Essential (primary) hypertension Code(s): I10 - Essential (primary) hypertension Status: Chronic Assessment and Plan: reasonable control at this time are opioids contributing to control(?) (4) Chronic, continuous use of opioids: Code(s): F11.90 - Opioid use, unspecified, uncomplicated Status: Acute Assessment and Plan: likely etiology of her hyponatremia as she will never be off this these medications, will work around this tissue (5) Rheumatoid arthritis: Qualifiers: Rheumatoid arthritis location: hand Rheumatoid factor presence: unspecified presence Laterality: bilateral Qualified Code(s): M06.9 - Rheumatoid arthritis, unspecified Code(s): M06.9 - Rheumatoid arthritis, unspecified Status: Chronic Assessment and Plan: on methotrexate and as needed Prednisone Not much else to offer in terms on recommendations -- will continue to follow from a distance. Subjective Date/time seen: 04/25/21 16:53 Major complaint remains how deconditioned she feel since hositalization began; working with PT/OT as tolerated; no other acute issues/events overnight or earlier this MA; no apparent distress noted at the time of my visit. Exam Narrative: General: WD/WN female in NAD Heart: normal S1 and S2; no rub Lungs: clear to auscultation Abdomen: soft, nontender, nondistended, positive bowel sounds Extremities: no cyanosis or clubbing; no edema Skin: warm and intact Objective Data Vital Signs Vital Signs: Vital Signs Temp Pulse Resp BP Pulse Ox 04/25/21 14:10 79 18 98/55 L 99 04/25/21 14:05 82 18 94/51 L 99 04/25/21 14:00 36.7 C 75 18 112/56 L 98 04/25/21 10:04 18 97 04/25/21 06:00 36.4 C L 63 18 126/78 98 04/24/21 22:00 36.6 C 65 18 122/70 99 04/24/21 21:21 132/68 04/24/21 21:00 70 04/24/21 20:00 131/58 L Intake/Output Intake/Output: Intake & Output 04/22/21 04/23/21 04/24/21 04/25/21 23:59 23:59 23:59 23:59 Intake Total 1000 1150 750 240 Output Total 450 2850 1600 1200 Balance 134 -5325 -488 -625 Meds/Results Medications: Active Medications Generic Name Dose Route Start Last Admin Trade Name Freq PRN Reason Stop Dose Admin Albuterol 1 puff 04/09/21 22:41 Albuterol Sulfate (*Sp) Aerosol 1 Puff INHALATION Q4H PRN Wheezing Aspirin 81 mg 04/10/21 09:00 04/25/21 10:01 Aspirin 81 Mg Enteric Tablet PO 81 mg DAILY GINO Administration Atorvastatin Calcium 40 mg 04/10/21 09:00 04/25/21 10:02 Atorvastatin 40 Mg Tablet PO 40 mg DAILY GINO Administration Buspirone HCl 10 mg 04/11/21 17:00 04/25/21 16:53 Buspirone Hcl 10 Mg Tablet PO 10 mg BID GINO Administration Clopidogrel Bisulfate 75 mg 04/10/21 09:00 04/25/21 10:02 Clopidogrel Bisulfate 75 Mg Tablet PO 75 mg DAILY GINO Administration Dextrose 12.5 gm 04/21/21 09:56 Dextrose 50% 25 Gm/50 Ml Syringe IV PUSH PRN PRN Hypoglycemia Protocol Docusate Sodium 100 mg 04/15/21 13:30 04/15/21 17:17 Docusate Sodium 100 Mg Capsule PO 100 mg
--- NOTE | 2021-04-25 16:53 | P.PNNP_ITS ---
Progress Note: A&P Assessment and Plan (1) Hyponatremia: Code(s): E87.1 - Hypo-osmolality and hyponatremia Status: Acute Assessment and Plan: * acute on chronic * hyponatremia has been present since at least 2006 * the main cause is likely chronic opiod use * cortisol low but stim test was normal; TSH okay * sodium of around 130s is probably acceptable for her * continue fluid restriction and salt tabs at this time * follow trend of repeat sodium levels (2) Acute on chronic diastolic (congestive) heart failure: Code(s): I50.33 - Acute on chronic diastolic (congestive) heart failure Status: Acute Assessment and Plan: * resolving * off diuretics * follow volume status (3) Hypertension: Qualifiers: Hypertension type: unspecified Qualified Code(s): I10 - Essential (primary) hypertension Code(s): I10 - Essential (primary) hypertension Status: Chronic Assessment and Plan: * reasonable control at this time * are opioids contributing to control(?) (4) Chronic, continuous use of opioids: Code(s): F11.90 - Opioid use, unspecified, uncomplicated Status: Acute Assessment and Plan: * likely etiology of her hyponatremia * as she will never be off this these medications, will work around this tissue (5) Rheumatoid arthritis: Qualifiers: Rheumatoid arthritis location: hand Rheumatoid factor presence: unspecified presence Laterality: bilateral Qualified Code(s): M06.9 - Rheumatoid arthritis, unspecified Code(s): M06.9 - Rheumatoid arthritis, unspecified Status: Chronic Assessment and Plan: * on methotrexate and as needed Prednisone Not much else to offer in terms on recommendations -- will continue to follow from a distance. Subjective Date/time seen: 04/25/21 16:53 Major complaint remains how deconditioned she feel since hositalization began; working with PT/OT as tolerated; no other acute issues/events overnight or earlier this MA; no apparent distress noted at the time of my visit. Exam Narrative: General: WD/WN female in NAD Heart: normal S1 and S2; no rub Lungs: clear to auscultation Abdomen: soft, nontender, nondistended, positive bowel sounds Extremities: no cyanosis or clubbing; no edema Skin: warm and intact Objective Data Vital Signs Vital Signs: Vital Signs Temp Pulse Resp BP Pulse Ox 04/25/21 14:10 79 18 98/55 L 99 08/11/21 14:05 82 18 94/51 L 99 04/25/21 14:00 36.7 C 75 18 112/56 L 98 04/25/21 10:04 18 97 04/25/21 06:00 36.4 C L 63 18 126/78 98 04/24/21 22:00 36.6 C 65 18 122/70 99 04/24/21 21:21 132/68 04/24/21 21:00 70 04/24/21 20:00 131/58 L Intake/Output Intake/Output: Intake & Output 04/22/21 04/23/21 04/24/21 04/25/21 23:59 23:59 23:59 23:59 Intake Total 1000 1150 750 240 Output Total 450 2850 1600 1200 Balance 506 -9701 -511 -907 Meds/Results Medications: Active Medications Generic Name Dose Route Start Last Admin Trade Name Freq PRN Reason Stop Dose Admin Albuterol 1 puff 04/09/21 22:41 Albuterol Sulfate (*Sp) Aerosol 1 Puff INHALATION Q4H PRN Wheezing Aspi
--- NOTE | 2021-04-25 17:30 | PM.IMPN ---
Progress Note: A&P Assessment and Plan (1) Hyponatremia: Code(s): E87.1 - Hypo-osmolality and hyponatremia Status: Acute Assessment and Plan: Sodium is 121 initially Likely due to chronic narcotic use 04/21 129, NaCl tabs increased back to bid, fluid restriction at 1500 ml/day 04/22 Na 129 04/24 sodium 130 on salt tabs and fluid restriction nephrology following (2) Hypertension: Qualifiers: Hypertension type: unspecified Qualified Code(s): I10 - Essential (primary) hypertension Code(s): I10 - Essential (primary) hypertension Status: Acute Assessment and Plan: BP low on reduced doses vs home regimen 04/21: due to hypotension (sbp 94) stop nitrates and hydralazine, add parameters to carvediilol 04/22: Low BP in afternoon with only AM valsartan. Carvedilol AM dose held, then dc'd. D/c'd valsartan. HS Metoprolol due to hx CAD. Consider midodrine for orthostatic hypotension. Consider early dysautonomia. 04/24 will check her orthostatic vital (3) Dyspnea on exertion: Code(s): R06.00 - Dyspnea, unspecified Status: Acute Assessment and Plan: 04/21 diuresis over 4500 ml since admission No sign of CHF at this time. (4) Chest pain: Qualifiers: Chest pain type: unspecified Qualified Code(s): R07.9 - Chest pain, unspecified Code(s): R07.9 - Chest pain, unspecified Status: Acute Assessment and Plan: Lexiscan stress negative this admission. EF >70%. cardiology following (5) Coronary artery disease: Qualifiers: Coronary Disease-Associated Artery/Lesion type: [place] artery [place] vs. transplanted heart: [place] heart Associated angina: without angina Qualified Code(s): I25.10 - Atherosclerotic heart disease of [place] coronary artery without angina pectoris Code(s): I25.10 - Atherosclerotic heart disease of [place] coronary artery without angina pectoris Status: Acute Assessment and Plan: Stable medically (6) Gastroesophageal reflux disease: Qualifiers: Esophagitis presence: esophagitis presence not specified Qualified Code(s): K21.9 - Gastro-esophageal reflux disease without esophagitis Code(s): K21.9 - Gastro-esophageal reflux disease without esophagitis Status: Acute Assessment and Plan: stable on medication (7) Hypothyroid: Qualifiers: Hypothyroidism type: unspecified Qualified Code(s): E03.9 - Hypothyroidism, unspecified Code(s): E03.9 - Hypothyroidism, unspecified Status: Chronic Assessment and Plan: stable on medication (8) Diet-controlled diabetes mellitus: Code(s): E11.9 - Type 2 diabetes mellitus without complications Status: Acute Assessment and Plan: 04/21 214, SSI added 04/25 BG at goal (9) Rheumatoid arthritis: Qualifiers: Rheumatoid arthritis location: hand Rheumatoid factor presence: unspecified presence Laterality: bilateral Qualified Code(s): M06.9 - Rheumatoid arthritis, unspecified Code(s): M06.9 - Rheumatoid arthritis, unspecified Status: Chronic Assessment and Plan: stable on medication Patient reports that she has been lying in bed too long she feels very stiff she is in agreement to go to a [facility] facility for improvement in her mobility prior to returning (10) Chronic pain syndrome: Code(s): G89.4 - Chronic pain syndrome Status: Acute Assessment and Plan: stable with chronic narcotic use (11) Chronic, continuous use of opioids: Code(s): F11.90 - Opioid use, unspecified, uncomplicated Status: Acute Assessment and Plan: is stable (12) Acute on chronic diastolic (congestive) heart failure: Code(s): I50.33 - Acute on chronic diastolic (congestive) heart failure Status: Acute (13) Chronic hyponatremia: Code(s): E87.1 - Hypo-osmolality and hyponatremia Status: Acute Additional
[2021-04-25 18:10] LABS: Glucose Point of Care 91 mg/dl (65-105)
[2021-04-25] MEDS: FLUTICASONE/SALMETEROL 115-21 MCG INHALER 1 PUFF 2 PUFF INHALATION (20:14)
[2021-04-25] MEDS: MONTELUKAST SODIUM 10 MG TABLET PO (20:52)
[2021-04-25] MEDS: INSULIN GLARGINE (*BKC) 100 UNITS/ML 10 UNITS SUB-Q (20:52)
[2021-04-25] MEDS: METOPROLOL SUCCINATE EXT REL 12.5 MG TABCR PO (20:52)
[2021-04-25 21:10] LABS: Glucose Point of Care 161 mg/dl (65-105)
[2021-04-26] VITALS (8 sets, daily range): BP systolic 131–179; BP diastolic 57–78; PULSE 63–83; RESP 18; TEMP 35.9–36.3; O2SAT 97–98
[2021-04-26] MEDS: LEVOTHYROXINE SODIUM 88 MCG TABLET PO (06:09)
[2021-04-26] MEDS: oxyCODONE HCL (*CRX) 5 MG TAB IR PO ×3 (06:09→18:40)
[2021-04-26] MEDS: oxyCODONE/ACETAMINOPHEN (*CRX) 5-325 MG TABLET 1 TABLET PO ×3 (06:09→18:40)
[2021-04-26 07:22] LABS: Basophils Absolute Auto 0.1 K/mm3 (0.0-0.1); Basophils Percent Auto 0.7 % (0.2-1.2); Eosinophils Absolute Auto 0.2 K/mm3 (0-0.3); Eosinophils Percent Auto 1.8 % (0-4.4); Hematocrit 33.2 % (37.0-47.0); Immature Granulocyte Absolute 0.05 K/mm3 (0.00-0.031); Immature Granulocyte Percent A 0.6 % (0-0.5); Lymphocytes Absolute Auto 3.23 K/mm3 (0.9-3.2); Lymphocytes Percent Auto 36.7 % (18.3-44.2); Mean Corpuscular HGB Conc 33.1 g/dl (32-36); Mean Corpuscular Hemoglobin 29.9 pg (26-34); Mean Corpuscular Volume 90.2 fl (80-100); Mean Platelet Volume 9.6 fl (7.4-10.4); Monocytes Absolute Auto 0.7 K/mm3 (0.1-0.6); Monocytes Percent Auto 7.8 % (2.6-8.5); Neutrophils Absolute Auto 4.6 K/mm3 (1.3-6.7); Neutrophils Percent Auto 52.4 % (45.5-73.1); Platelet Count Result 290 k/mm3 (150-375); Red Blood Count 3.68 M/mm3 (4.2-5.4); Red Cell Distribution Width 12.1 % (11.5-14.5); White Blood Count 8.8 K/mm3 (4.5-10.0)
[2021-04-26 07:42] LABS: D Dimer 0.74 ug/mL (<0.48)
[2021-04-26 07:51] LABS: Anion Gap 8 mmol/L (8-16); Blood Urea Nitrogen 26 mg/dL (7-17); CRP < 0.5 mg/dL (<1.0); Calcium 9.6 mg/dL (8.4-10.2); Carbon Dioxide 24 mmol/L (22-30); Chloride 101 mmol/L (98-107); Estimated Glomerular Filt Rate > 60; Glucose 102 mg/dL (65-110); Potassium 4.2 mmol/L (3.4-5.0); Sodium 133 mmol/L (137-145)
[2021-04-26] MEDS: FLUTICASONE/SALMETEROL 115-21 MCG INHALER 1 PUFF 2 PUFF INHALATION (07:51)
[2021-04-26 08:27] LABS: Glucose Point of Care 95 mg/dl (65-105)
[2021-04-26] MEDS: PANTOPRAZOLE 40 MG TABLET PO (08:46)
[2021-04-26] MEDS: FOLIC ACID 1 MG TABLET PO (08:46)
[2021-04-26] MEDS: ATORVASTATIN 40 MG TABLET PO (08:46)
[2021-04-26] MEDS: ASPIRIN 81 MG ENTERIC TABLET PO (08:46)
[2021-04-26] MEDS: Linaclotide [Linzess] 145 mcg capsule 145 EACH BY MOUTH (08:46)
[2021-04-26] MEDS: FLUTICASONE PROPIONATE 0.05% NA SPR 16 GM BTL (*BKC) 1 SPRAY NASAL ×2 (08:46→16:35)
[2021-04-26] MEDS: CLOPIDOGREL BISULFATE 75 MG TABLET PO (08:47)
[2021-04-26] MEDS: busPIRone HCL 10 MG TABLET PO ×2 (08:47→16:35)
[2021-04-26] MEDS: EZETIMIBE 10 MG TABLET PO (08:47)
[2021-04-26] MEDS: SODIUM CHLORIDE 1 GM TABLET PO ×2 (08:47→16:36)
[2021-04-26] MEDS: LORATADINE 10 MG TABLET PO (08:47)
--- NOTE | 2021-04-26 10:51 | PM.IMPN ---
Progress Note: A&P Assessment and Plan (1) Hyponatremia: Code(s): E87.1 - Hypo-osmolality and hyponatremia Status: Acute Assessment and Plan: Sodium is 121 initially Likely due to chronic narcotic use 04/21 129, NaCl tabs increased back to bid, fluid restriction at 1500 ml/day 04/22 Na 129 04/24 sodium 130 on salt tabs and fluid restriction nephrology following (2) Hypertension: Qualifiers: Hypertension type: unspecified Qualified Code(s): I10 - Essential (primary) hypertension Code(s): I10 - Essential (primary) hypertension Status: Acute Assessment and Plan: BP low on reduced doses vs home regimen 04/21: due to hypotension (sbp 94) stop nitrates and hydralazine, add parameters to carvediilol 04/22: Low BP in afternoon with only AM valsartan. Carvedilol AM dose held, then dc'd. D/c'd valsartan. HS Metoprolol due to hx CAD. Consider midodrine for orthostatic hypotension. Consider early dysautonomia. 04/24 will check her orthostatic vital (3) Dyspnea on exertion: Code(s): R06.00 - Dyspnea, unspecified Status: Acute Assessment and Plan: 04/21 diuresis over 4500 ml since admission No sign of CHF at this time. (4) Chest pain: Qualifiers: Chest pain type: unspecified Qualified Code(s): R07.9 - Chest pain, unspecified Code(s): R07.9 - Chest pain, unspecified Status: Acute Assessment and Plan: Lexiscan stress negative this admission. EF >70%. cardiology following (5) Coronary artery disease: Qualifiers: Coronary Disease-Associated Artery/Lesion type: [place] artery [place] vs. transplanted heart: [place] heart Associated angina: without angina Qualified Code(s): I25.10 - Atherosclerotic heart disease of [place] coronary artery without angina pectoris Code(s): I25.10 - Atherosclerotic heart disease of [place] coronary artery without angina pectoris Status: Acute Assessment and Plan: Stable medically (6) Gastroesophageal reflux disease: Qualifiers: Esophagitis presence: esophagitis presence not specified Qualified Code(s): K21.9 - Gastro-esophageal reflux disease without esophagitis Code(s): K21.9 - Gastro-esophageal reflux disease without esophagitis Status: Acute Assessment and Plan: stable on medication (7) Hypothyroid: Qualifiers: Hypothyroidism type: unspecified Qualified Code(s): E03.9 - Hypothyroidism, unspecified Code(s): E03.9 - Hypothyroidism, unspecified Status: Chronic Assessment and Plan: stable on medication (8) Diet-controlled diabetes mellitus: Code(s): E11.9 - Type 2 diabetes mellitus without complications Status: Acute Assessment and Plan: 04/21 214, SSI added 04/25 BG at goal (9) Rheumatoid arthritis: Qualifiers: Rheumatoid arthritis location: hand Rheumatoid factor presence: unspecified presence Laterality: bilateral Qualified Code(s): M06.9 - Rheumatoid arthritis, unspecified Code(s): M06.9 - Rheumatoid arthritis, unspecified Status: Chronic Assessment and Plan: stable on medication Patient reports that she has been lying in bed too long she feels very stiff she is in agreement to go to a shelter facility for improvement in her mobility prior to returning (10) Chronic pain syndrome: Code(s): G89.4 - Chronic pain syndrome Status: Acute Assessment and Plan: stable with chronic narcotic use (11) Chronic, continuous use of opioids: Code(s): F11.90 - Opioid use, unspecified, uncomplicated Status: Acute Assessment and Plan: is stable (12) Acute on chronic diastolic (congestive) heart failure: Code(s): I50.33 - Acute on chronic diastolic (congestive) heart failure Status: Acute (13) Chronic hyponatremia: Code(s): E87.1 - Hypo-osmolality and hyponatremia Status: Acute Additional
[2021-04-26 12:16] LABS: Glucose Point of Care 83 mg/dl (65-105)
--- NOTE | 2021-04-26 16:53 | PM.DS ---
DS: Admitting Diagnosis Admitting Diagnosis (1) Dyspnea on exertion: Code(s): R06.00 - Dyspnea, unspecified Status: Acute (2) Chest pain: Code(s): R07.9 - Chest pain, unspecified Status: Acute (3) Coronary artery disease: Code(s): I25.10 - Atherosclerotic heart disease of [place] coronary artery without angina pectoris Status: Acute (4) Hypertension: Code(s): I10 - Essential (primary) hypertension Status: Acute (5) Gastroesophageal reflux disease: Code(s): K21.9 - Gastro-esophageal reflux disease without esophagitis Status: Acute (6) Hypothyroid: Code(s): E03.9 - Hypothyroidism, unspecified Status: Chronic (7) Hyperlipidemia: Code(s): E78.5 - Hyperlipidemia, unspecified Status: Chronic (8) Diet-controlled diabetes mellitus: Code(s): E11.9 - Type 2 diabetes mellitus without complications Status: Acute (9) Rheumatoid arthritis: Qualifiers: Rheumatoid arthritis location: hand Rheumatoid factor presence: unspecified presence Laterality: bilateral Qualified Code(s): M06.9 - Rheumatoid arthritis, unspecified Code(s): M06.9 - Rheumatoid arthritis, unspecified Status: Chronic (10) Chronic pain syndrome: Code(s): G89.4 - Chronic pain syndrome Status: Acute (11) Chronic, continuous use of opioids: Code(s): F11.90 - Opioid use, unspecified, uncomplicated Status: Acute DS: Discharge Diagnosis Discharge Diagnosis (1) Hyponatremia: Code(s): E87.1 - Hypo-osmolality and hyponatremia Status: Acute (2) Acute on chronic diastolic (congestive) heart failure: Code(s): I50.33 - Acute on chronic diastolic (congestive) heart failure Status: Acute (3) Diet-controlled diabetes mellitus: Code(s): E11.9 - Type 2 diabetes mellitus without complications Status: Acute (4) Dyspnea on exertion: Code(s): R06.00 - Dyspnea, unspecified Status: Acute (5) Gastroesophageal reflux disease: Qualifiers: Esophagitis presence: esophagitis presence not specified Qualified Code(s): K21.9 - Gastro-esophageal reflux disease without esophagitis Code(s): K21.9 - Gastro-esophageal reflux disease without esophagitis Status: Acute (6) Chronic hyponatremia: Code(s): E87.1 - Hypo-osmolality and hyponatremia Status: Acute (7) Chronic, continuous use of opioids: Code(s): F11.90 - Opioid use, unspecified, uncomplicated Status: Acute (8) Obstructive sleep apnea: Code(s): G47.33 - Obstructive sleep apnea (adult) (pediatric) Status: Acute (9) Chronic pain syndrome: Code(s): G89.4 - Chronic pain syndrome Status: Acute (10) Hypertension: Qualifiers: Hypertension type: unspecified Qualified Code(s): I10 - Essential (primary) hypertension Code(s): I10 - Essential (primary) hypertension Status: Acute (11) Coronary artery disease: Qualifiers: Associated angina: without angina Coronary Disease-Associated Artery/Lesion type: [place] artery [place] vs. transplanted heart: [place] heart Qualified Code(s): I25.10 - Atherosclerotic heart disease of [place] coronary artery without angina pectoris Code(s): I25.10 - Atherosclerotic heart disease of [place] coronary artery without angina pectoris Status: Acute DS: Summary Hospital Course Hospital Course: dyspnea on exertion /chest tightnessCT chest negative for PE shows cardiomegaly. BNP elevated at 485 chest x-ray unremarkable does not sound like asthma exacerbation. reviewed cardiology recommendation continue with diuresis. Optimal blood pressure control with [place] bit better today. Added on isosorbide mononitrate will keep hydralazine on hold. Echocardiogram reviewed which showed 2. Normal left ventricular size and thickness with overall good contractility of all segments. Estimated ejection fraction is 60
[2021-04-26 16:59] LABS: Glucose Point of Care 133 mg/dl (65-105)
== END 2021-04-26 20:45 | disposition home or self-care (01) | DRG 292 ==
LOC: ANHED 17:44 → ANHIMU 19:23 → ANH3MEDSUR 04-10 18:07
PROVIDERS: Emergency Medicine; Family Medicine; Internal Medicine; Internal Medicine Nephrology; Internal Medicine Pulmonary Disease; Physician Assistant; Admitting Provider Internal Medicine Critical Care Medicine; Emergency Provider Emergency Medicine; PCP Nurse Practitioner; Visit Provider Hospitalist
DX: I11.0 Hypertensive heart disease with heart failure (principal); E22.2 Syndrome of inappropriate secretion of antidiuretic hormone; I50.33 Acute on chronic diastolic (congestive) heart failure; F41.9 Anxiety disorder, unspecified; J45.909 Unspecified asthma, uncomplicated; I25.10 Atherosclerotic heart disease of native coronary artery without angina pectoris; M15.9 Polyosteoarthritis, unspecified; F32.9 Major depressive disorder, single episode, unspecified; K21.9 Gastro-esophageal reflux disease without esophagitis; K44.9 Diaphragmatic hernia without obstruction or gangrene; I10 Essential (primary) hypertension; E78.5 Hyperlipidemia, unspecified; E03.9 Hypothyroidism, unspecified; K58.9 Irritable bowel syndrome, unspecified; I25.2 Old myocardial infarction; M06.9 Rheumatoid arthritis, unspecified; E11.42 Type 2 diabetes mellitus with diabetic polyneuropathy; F12.90 Cannabis use, unspecified, uncomplicated; Z86.718 Personal history of other venous thrombosis and embolism; G89.4 Chronic pain syndrome; F11.90 Opioid use, unspecified, uncomplicated; Z98.61 Coronary angioplasty status; G47.33 Obstructive sleep apnea (adult) (pediatric); Z91.19 Patient's noncompliance with other medical treatment and regimen; E86.0 Dehydration; E11.36 Type 2 diabetes mellitus with diabetic cataract; H26.9 Unspecified cataract
CPT/HCPCS: 36415; 36600; 71046; 71275; 78452; 80048; 80069; 81001; 82533; 82805; 82948; 83735; 83880; 83883; 83930; 83935; 84155; 84165; 84295; 84300; 84443; 84484; 85025; 85380; 85610; 85730; 86140; 93005; 93017; 93306; 94618; 94640; 97110; 97116; 97161; 97530; 97535; 99285; A9270; A9502; G0378; J0834; J1815; J2785; J7030; J7050; Q9967

== ENCOUNTER 2021-05-17 15:26 | Outpatient (CLI) | payer MEDICARE, BC, SELFPAY ==
[2021-05-17 16:05] LABS: Anion Gap 8 mmol/L (8-16); Blood Urea Nitrogen 11 mg/dL (7-17); Calcium 9.3 mg/dL (8.4-10.2); Carbon Dioxide 23 mmol/L (22-30); Chloride 96 mmol/L (98-107); Estimated Glomerular Filt Rate > 60; Glucose 126 mg/dL (65-110); Sodium 127 mmol/L (137-145)
== END 2021-05-17 15:27 | disposition home or self-care (01) ==
PROVIDERS: PCP Nurse Practitioner; Visit Provider Nurse Practitioner Adult Health
DX: E87.1 Hypo-osmolality and hyponatremia (principal)
CPT/HCPCS: 36415; 80048

== ENCOUNTER 2021-05-28 12:05 | Outpatient (CLI) | payer MEDICARE, BC, SELFPAY ==
[2021-05-28 12:48] LABS: Anion Gap 10 mmol/L (8-16); Blood Urea Nitrogen 12 mg/dL (7-17); Carbon Dioxide 26 mmol/L (22-30); Chloride 97 mmol/L (98-107); Estimated Glomerular Filt Rate > 60; Glucose 117 mg/dL (65-110); Potassium 3.6 mmol/L (3.4-5.0); Sodium 133 mmol/L (137-145)
== END 2021-05-28 12:06 | disposition home or self-care (01) ==
LOC: ANHLAB 12:11
PROVIDERS: PCP Nurse Practitioner; Visit Provider Internal Medicine Cardiovascular Disease
DX: I11.0 Hypertensive heart disease with heart failure (principal); E87.1 Hypo-osmolality and hyponatremia; I50.9 Heart failure, unspecified
CPT/HCPCS: 36415; 80048

== ENCOUNTER 2021-06-04 10:14 | Emergency (ER) | payer MEDICARE, BC, SELFPAY ==
[2021-06-04] VITALS (8 sets, daily range): BP systolic 139–186; BP diastolic 59–86; PULSE 60–74; RESP 11–18; TEMP 37.1; O2SAT 95–98
--- NOTE | ~2021-06-04 | CT_ITS ---
EXAMINATION: CTA chest PE protocol EXAM DATE: 06/04/2021 12:27 INDICATION: Intermittent chest tightness, shortness of breath TECHNIQUE: Spiral CTA of the chest (pulmonary arteries) was performed with 100 cc Omnipaque 350 intr avenous contrast injection. Images were acquired during the pulmonary arterial phase. Coronal maxi mum intensity projection 3D-reconstructions were created by the technologist on dedicated workstation . Axial, coronal and sagittal reformatted images were reviewed. The dose-length product (DLP) for t his examination was 308.41 mGy-cm. The exposure was tailored according to patient size (auto mA exp osure control), and iterative reconstruction (ASIR) was used as additional dose reduction technique. Comparison is made to prior examination from 04/09/2021. FINDINGS: Pulmonary arteries are well opacified and without intraluminal filling defects. No thora cic aortic dissection. The lungs are clear. There are no pleural or pericardial effusions. Trach eobronchial tree is patent. There is no mediastinal, hilar or axillary lymphadenopathy. There is no pneumothorax. Heart normal in size. There is mild coronary arterial calcification, arterial sc lerosis. There is moderate sliding gastroesophageal hiatal hernia. There are cholecystectomy clips. There is mild thoracic spondylosis without osteoblastic or osteolytic lesions identified. IMPRESSION: No pulmonary emboli or acute findings. Moderate hiatal hernia. Reviewed, dictated and finalized at location B.
--- NOTE | ~2021-06-04 | XR_ITS ---
EXAMINATION: XR chest 2V EXAM DATE: 06/04/2021 10:50 INDICATION: Chest pain, weakness and dizziness. TECHNIQUE: Frontal and lateral projections of the chest obtained and reviewed. Comparison is made to prior examination from 04/12/2021. FINDINGS: There is moderate sliding gastroesophageal hiatal hernia. No confluent consolidation, pneum othorax or pleural effusion suspected. Borderline enlarged cardiac silhouette. There is aortic arteri osclerosis. Right humeral head rotator cuff repair anchors. IMPRESSION: 1. No acute cardiopulmonary findings. 2. Moderate sliding gastroesophageal hiatal hernia. Reviewed, dictated and finalized at location B.
--- NOTE | 2021-06-04 10:17 | ECG_ITS ---
Measurements Intervals [place] Rate: 63 P: 69 [place]: 179 QRS: 6 QRSD: 94 T: 27 QT: 413 QTc: 426 Interpretive Statements SINUS RHYTHM INCOMPLETE RIGHT BUNDLE BRANCH BLOCK VOLTAGE CRITERIA FOR LVH BASELINE ARTIFACT- I, II, III, AVR, AVL, AVF, V4 BORDERLINE ECG Electronically Signed On 06-04-2021 16:39:21 CDT by Jasvir Steele D.O.
--- NOTE | 2021-06-04 10:31 | ED.GENADULT ---
HPI - General Adult General Chief complaint: Chest Pain Stated complaint: CP Time Seen by Provider: 06/04/21 10:31 History of Present Illness HPI narrative: Patient is a 76-year-old female past medical history significant for CAD, CHF, hypertension, hyperlipidemia, rheumatoid arthritis who comes to the emergency room today complaining of chest pain and elevated blood pressures. Patient reports that they were occasionally elevated as high as 170 systolically. She has been having intermittent and frequent chest tightness since this morning. No known exacerbating or alleviating. Not pleuritic. Nonradiating. Admits to previous history of similar symptoms but patient is somewhat vague on this. Does note a history of CAD with stenting during 1 instance of this chest pain in the past. She has chronic dyspnea on exertion and says this feels little bit worse today. Has chronic bilateral lower extremity edema reports no changes in this. Denies any fevers or coughing. Says that she had called her steaming machine operator Dr. Pedraza this morning who recommended she come to the ED for evaluation. Patient wrote down all of her blood pressure readings this morning and brought them in with her, she checked her blood pressure around 6 times this morning. Patient reports that her chronic generalized body pain due to her rheumatoid arthritis is worse than normal today. Related Data Home Medications Medication Instructions Recorded Confirmed aspirin 81 mg tablet,delayed 81 mg PO DAILY 07/29/19 06/04/21 release clopidogrel 75 mg tablet 75 mg PO DAILY 07/29/19 06/04/21 folic acid 1 mg tablet 1 mg PO DAILY 07/29/19 06/04/21 meclizine 25 mg tablet 25 mg PO TID PRN 07/29/19 06/04/21 montelukast 10 mg tablet 10 mg PO HS 07/29/19 06/04/21 nitroglycerin 0.4 mg sublingual 0.4 mg SUBLINGUAL Q5M PRN 07/29/19 06/04/21 tablet spironolactone 12.5 mg PO DAILY 11/02/19 06/04/21 All Day Allergy (cetirizine) 10 mg PO DAILY 04/09/21 06/04/21 Linzess 145 mcg PO DAILY 04/09/21 06/04/21 buspirone 10 mg PO TID 04/09/21 06/04/21 esomeprazole magnesium 20 mg PO DAILY 04/09/21 06/04/21 ezetimibe 10 mg PO DAILY 04/09/21 06/04/21 fluticasone propionate 50 mcg INTRANASAL BID 04/09/21 06/04/21 hydralazine 50 mg PO QID 04/09/21 06/04/21 tetrahydrozoline [Eye Drops 1 drp EACH EYE DAILY PRN 04/09/21 06/04/21 (tetrahydrozoline)] Allergies Allergy/AdvReac Type Severity Reaction Status Date / Time No Known Allergies Allergy Verified 06/04/21 10:46 Review of Systems Constitutional: Constitutional: Reports as per HPI, Denies fever(s), Denies night sweats and Denies weakness Cardiovascular: Cardiovascular: Reports chest pain, Denies edema, Denies leg edema, Denies dyspnea and Denies orthopnea Respiratory: Respiratory: Denies cough and Reports dyspnea Gastrointestinal: Gastrointestinal: Denies abdominal pain, Denies constipation, Denies diarrhea, Denies nausea and Denies vomiting Musculoskeletal: Musculoskeletal: Denies abnormal gait, Denies back pain, Denies numbness and Denies tingling Neurologic: Denies Abnormal speech present, Denies abnormal gait, Denies numbness, Denies tingling and Denies weakness Psychiatric: Psychiatric: Denies homicidal ideation and Denies suicidal ideation [facility] Past Medical History Medical History (Updated 06/04/21 @ 15:50 by Javi Jj PA-C) Anemia Anxiety Asthma Cataracts, bilateral Chronic hyponatremia Chronic pain syndrome Chronic, continuous use of opioids Coronary artery disease Angioplasty of a diagonal lesion 01/2018. Cardiac catheterization 06/2019 showed patent coronary arteries. Deep venous thrombosis Degenerative joint disease involving multiple joints Depression Gastroesophageal reflux disease Hiatal hernia Hyperlipidemia Hypertension Hypothyroid Irritable bowel syndrome Non-ST elevation [place] (NSTEMI) Obstructive sleep apnea Noncompliant with CPAP. Peptic ulcer Peripheral neuropathy Rheumatoid arthritis
[2021-06-04 10:53] LABS: Basophils Percent Auto 0.3 % (0.2-1.2); Eosinophils Absolute Auto 0.1 K/mm3 (0-0.3); Eosinophils Percent Auto 0.8 % (0-4.4); Hematocrit 38.1 % (37.0-47.0); Immature Granulocyte Absolute 0.05 K/mm3 (0.00-0.031); Immature Granulocyte Percent A 0.7 % (0-0.5); Lymphocytes Absolute Auto 2.44 K/mm3 (0.9-3.2); Lymphocytes Percent Auto 32.7 % (18.3-44.2); Mean Corpuscular HGB Conc 34.1 g/dl (32-36); Mean Corpuscular Volume 90.7 fl (80-100); Mean Platelet Volume 9.2 fl (7.4-10.4); Monocytes Absolute Auto 0.4 K/mm3 (0.1-0.6); Monocytes Percent Auto 5.4 % (2.6-8.5); Neutrophils Absolute Auto 4.5 K/mm3 (1.3-6.7); Neutrophils Percent Auto 60.1 % (45.5-73.1); Platelet Count Result 252 k/mm3 (150-375); Red Cell Distribution Width 12.2 % (11.5-14.5); White Blood Count 7.5 K/mm3 (4.5-10.0)
[2021-06-04 11:03] LABS: Anion Gap 11 mmol/L (8-16); Blood Urea Nitrogen 12 mg/dL (7-17); Calcium 9.3 mg/dL (8.4-10.2); Carbon Dioxide 27 mmol/L (22-30); Chloride 97 mmol/L (98-107); Estimated Glomerular Filt Rate > 60; Glucose 144 mg/dL (65-110); INR 0.9; Prothrombin Time 12.2 Seconds (11.1-14.7); Sodium 135 mmol/L (137-145)
[2021-06-04 11:04] LABS: Partial Thromboplastin Time 28.2 SECONDS (22.3-36.8)
[2021-06-04 11:15] LABS: Troponin I < 0.012 ng/mL (0.000-0.034)
[2021-06-04] MEDS: ASPIRIN 81 MG CHEWABLE TABLET 324 MG PO (11:21)
[2021-06-04 12:27] LABS: NT Pro B Type Natriuretic Pept 1070 pg/mL (5-100)
[2021-06-04] MEDS: MORPHINE SULFATE (*CRX) 4 MG/ML INJ IV PUSH (12:41)
[2021-06-04 15:03] LABS: Troponin I < 0.012 ng/mL (0.000-0.034)
== END 2021-06-04 16:10 | disposition home or self-care (01) ==
PROVIDERS: Physician Assistant Medical; Emergency Provider Emergency Medicine; PCP Nurse Practitioner
DX: R07.9 Chest pain, unspecified (principal); I25.10 Atherosclerotic heart disease of native coronary artery without angina pectoris; I50.9 Heart failure, unspecified; E78.5 Hyperlipidemia, unspecified; M06.9 Rheumatoid arthritis, unspecified; I11.0 Hypertensive heart disease with heart failure; J45.909 Unspecified asthma, uncomplicated; E11.42 Type 2 diabetes mellitus with diabetic polyneuropathy; E87.1 Hypo-osmolality and hyponatremia; G89.4 Chronic pain syndrome; K21.9 Gastro-esophageal reflux disease without esophagitis; E03.9 Hypothyroidism, unspecified; K58.9 Irritable bowel syndrome, unspecified; I25.2 Old myocardial infarction; G47.33 Obstructive sleep apnea (adult) (pediatric); Z86.718 Personal history of other venous thrombosis and embolism; Z79.82 Long term (current) use of aspirin; I45.10 Unspecified right bundle-branch block; R94.31 Abnormal electrocardiogram [ECG] [EKG]; K44.9 Diaphragmatic hernia without obstruction or gangrene
CPT/HCPCS: 36415; 71046; 71275; 80048; 83880; 84484; 85025; 85610; 85730; 93005; 96374; 99284; A9270; J2270; Q9967

== ENCOUNTER 2021-11-18 13:51 | Emergency (ER) | payer MEDICARE, BC, SELFPAY ==
--- NOTE | ~2021-11-18 | XR_ITS ---
EXAMINATION: XR chest 2V 11/18/2021 14:26 INDICATION: Chest pain and dizziness PROCEDURE: 2 view chest COMPARISON: Comparison to multiple prior studies sequentially, with oldest reviewed study dated 05/02. FINDINGS: The lungs are clear. The cardiomediastinal silhouette is within normal limits. There are no pleural effusions. There is no pneumothorax suspected. No acute cardiopulmonary disease. There i s atherosclerosis. Small hiatal hernia. IMPRESSION: 1: NO ACUTE CARDIOPULMONARY DISEASE. Reviewed, dictated and finalized at location A. [facility] ASSOCIATE
--- NOTE | ~2021-11-18 | CT_ITS ---
EXAMINATION: CTA chest PE protocol DATE: 11/18/2021 16:33 CHAIN MENDER INDICATION: Shortness of breath. Elevated d-dimer. TECHNIQUE: Computed tomographic angiography (CTA) of the chest was performed with 100 mL Omnipaque-35 0 intravenous contrast. The dose-length product was 370.45 mGy-cm. Maximum intensity projection 3D-re constructions of the aorta and other arteries were constructed by the technologist on a separate work station. Automated exposure control and iterative reconstruction technique were employed. COMPARISON: CT dated 06/04/2021. FINDINGS: Study is technically adequate without evidence for pulmonary embolism. There is atheroscler osis of the aorta and coronary arteries. Cardiomegaly. Moderate size hiatal hernia. No significant pl eural or pericardial effusion. No thoracic lymphadenopathy. There is an accessory splenule. There are calcified granulomas of the liver and spleen. There are cholecystectomy clips. There is a 1.7 cm hyp ovascular lesion of the right hepatic lobe. Recommend correlation with MRI. No significant pleural or pericardial effusion. There is elevated right diaphragm. No endobronchial lesions. There is dependen t atelectasis. No focal airspace consolidation. No pneumothorax. Mild thoracic and upper lumbar spond ylosis. IMPRESSION: 1. No evidence for pulmonary embolism or acute cardiopulmonary disease. 2: Subtle hypovascular lesion of the right hepatic lobe measuring 1.7 cm. Finding is nonspecific. Re commend correlation with MRI of the abdomen with contrast. Reviewed, dictated and finalized at location A. N MENDER IMPRESSION: 1. No evidence for pulmonary embolism or acute cardiopulmonary disease. 2: Subtle hypovascular lesion of the right hepatic lobe measuring 1.7 cm. Find ing is nonspecific. Recommend correlation with MRI of the abdomen with contrast .
[2021-11-18 13:55] VITALS: BP 196/63; PULSE 68; RESP 18; TEMP 36.6; O2SAT 99
--- NOTE | 2021-11-18 14:04 | ECG_ITS ---
Measurements Intervals [place] Rate: 65 P: 51 [place]: 183 QRS: -26 QRSD: 90 T: 4 QT: 403 QTc: 420 Interpretive Statements SINUS RHYTHM BORDERLINE LEFT AXIS DEVIATION [QRS AXIS < -20] VOLTAGE CRITERIA FOR LVH [MEETS CRITERIA IN ONE OF: R(aVL), S(V1), R(V5), R(V5/V6)+S(V1)] BORDERLINE ECG COMPARED TO ECG 06/04/2021 10:23:57 NO SIGNIFICANT CHANGES Electronically Signed On 11-19-2021 13:53:11 [employer] by Ramy White M.D.
[2021-11-18 14:28] LABS: Basophils Absolute Auto 0.1 K/mm3 (0.0-0.1); Basophils Percent Auto 0.8 % (0.2-1.2); Eosinophils Absolute Auto 0.1 K/mm3 (0-0.3); Eosinophils Percent Auto 0.7 % (0-4.4); Hematocrit 42.6 % (37.0-47.0); Hemoglobin 14.4 g/dL (12.0-15.0); Immature Granulocyte Absolute 0.04 K/mm3 (0.00-0.031); Immature Granulocyte Percent A 0.4 % (0-0.5); Lymphocytes Percent Auto 27.8 % (18.3-44.2); Mean Corpuscular HGB Conc 33.8 g/dl (32-36); Mean Corpuscular Hemoglobin 30.1 pg (26-34); Mean Corpuscular Volume 89.1 fl (80-100); Mean Platelet Volume 9.8 fl (7.4-10.4); Monocytes Absolute Auto 0.7 K/mm3 (0.1-0.6); Monocytes Percent Auto 6.5 % (2.6-8.5); Neutrophils Absolute Auto 7.1 K/mm3 (1.3-6.7); Neutrophils Percent Auto 63.8 % (45.5-73.1); Platelet Count Result 341 k/mm3 (150-375); Red Blood Count 4.78 M/mm3 (4.2-5.4); Red Cell Distribution Width 12.1 % (11.5-14.5); White Blood Count 11.2 K/mm3 (4.5-10.0)
[2021-11-18 14:38] LABS: Partial Thromboplastin Time 28.2 SECONDS (22.3-36.8); Prothrombin Time 12.8 Seconds (11.1-14.7)
--- NOTE | 2021-11-18 14:39 | ED.CHESTPAIN ---
HPI - Chest Pain General Chief Complaint: Chest Pain Stated Complaint: hypertension, hand/feet swelling Time Seen by Provider: 11/18/21 14:05 Source: patient History of Present Illness HPI narrative: Patient's primary complaint is shortness of breath. Reports she has had shortness of breath and cough over the past few days. Shortness of breath is worse with laying flat improved with sitting up shortness of breath is also worsened with walking around. She also reports intermittent chest pain that bounces around her chest starts in the right and goes to the left there is no radiation there are no clear aggravating or alleviating factors with regards to her chest pain. Reports had similar symptoms in April of last year where she was admitted and and thought that maybe she had heart failure she denies fevers, nausea, vomiting, diaphoresis Related Data Home Medications Medication Instructions Recorded Confirmed aspirin 81 mg tablet,delayed 81 mg PO DAILY 07/29/19 08/31/21 release clopidogrel 75 mg tablet 75 mg PO DAILY 07/29/19 08/31/21 folic acid 1 mg tablet 1 mg PO TID 07/29/19 08/31/21 meclizine 25 mg tablet 25 mg PO TID PRN 07/29/19 08/31/21 montelukast 10 mg tablet 10 mg PO HS 07/29/19 08/31/21 nitroglycerin 0.4 mg sublingual 0.4 mg SUBLINGUAL Q5M PRN 07/29/19 08/31/21 tablet spironolactone 12.5 mg PO DAILY 11/02/19 08/31/21 All Day Allergy (cetirizine) 10 mg PO DAILY 04/09/21 08/31/21 buspirone 10 mg PO TID PRN 04/09/21 08/31/21 ezetimibe 10 mg PO DAILY 04/09/21 08/31/21 fluticasone propionate 50 mcg INTRANASAL BID 04/09/21 08/31/21 hydralazine 50 mg PO QID 04/09/21 08/31/21 tetrahydrozoline [Eye Drops 1 drp EACH EYE DAILY PRN 04/09/21 08/31/21 (tetrahydrozoline)] nebivolol 20 mg tablet 20 mg PO BID tablet 06/26/21 08/31/21 linaclotide 145 mcg capsule 145 mcg PO DAILY PRN 08/31/21 08/31/21 albuterol sulfate 2 puff INHALATION Q4H PRN 11/18/21 Allergies Allergy/AdvReac Type Severity Reaction Status Date / Time No Known Allergies Allergy Verified 11/18/21 14:11 Review of Systems Review of Systems: CONSTITUTIONAL: Denies fever, chills, or sweats. EYES: Denies visual changes, redness, or discharge. ENT: Denies rhinorrhea, congestion, sore throat, or otalgia. CARDIOVASCULAR: Denies palpitations, or edema. RESPIRATORY: Reports shortness of breath GASTROINTESTINAL: Denies abdominal pain, nausea, vomiting, or diarrhea. GENITOURINARY: Denies dysuria or hematuria. SKIN: Denies rash or itching. MUSCULOSKELETAL: Denies back pain, joint pain, or myalgia. NEUROLOGIC: Denies headache, numbness, dizziness, or weakness. PSYCHIATRIC: Denies anxiety or depression. All systems reviewed & are unremarkable except as noted in HPI and below PMFSH Past Medical History Medical History Acute on chronic diastolic (congestive) heart failure Anemia Anxiety Asthma Cataracts, bilateral Chronic hyponatremia Chronic pain syndrome Chronic, continuous use of opioids Coronary artery disease Angioplasty of a diagonal lesion 01/2018. Cardiac catheterization 06/2019 showed patent coronary arteries. Deep venous thrombosis Degenerative joint disease involving multiple joints Depression Gastroesophageal reflux disease Hiatal hernia Hyperlipidemia Hypertension Hypothyroid Irritable bowel syndrome Non-ST elevation [place] (NSTEMI) Obstructive sleep apnea Noncompliant with CPAP. Peptic ulcer Peripheral neuropathy Rheumatoid arthritis Seasonal allergies Type 2 diabetes mellitus without complications Diet-controlled. Hemoglobin A1c was 5.7% on 01/24/2021. Surgical History Surgical History H/O heart surgery 07/03 History of appendectomy History of arthroscopy of both shoulders History of cardiac catheterization Angioplasty of a diagonal stenosis 01/2018. Cardiac catheterization 06/2019 showed patent coronary arteries. History of car
[2021-11-18 14:43] LABS: Alanine Aminotransferase 13 U/L (4-35); Albumin Level 4.5 g/dL (3.5-5.1); Alkaline Phosphatase 93 U/L (38-126); Anion Gap 11 mmol/L (8-16); Aspartate Amino Transferase 33 U/L (14-36); Bilirubin,Total 1.4 mg/dL (0.2-1.3); Blood Urea Nitrogen 11 mg/dL (7-17); Calcium 9.8 mg/dL (8.4-10.2); Carbon Dioxide 25 mmol/L (22-30); Chloride 97 mmol/L (98-107); Estimated Glomerular Filt Rate > 60; Glucose 153 mg/dL (65-110); Lipase 37 U/L (23-300); Potassium 4.4 mmol/L (3.4-5.0); Sodium 133 mmol/L (137-145)
[2021-11-18 14:45] LABS: NT Pro B Type Natriuretic Pept 624 pg/mL (5-100)
[2021-11-18 14:53] LABS: Troponin I < 0.012 ng/mL (0.000-0.034)
[2021-11-18] MEDS: ASPIRIN 81 MG CHEWABLE TABLET 324 MG PO (15:07)
[2021-11-18 15:32] LABS: D Dimer 1.73 ug/mL (<0.48)
[2021-11-18 15:35] VITALS: PULSE 57; RESP 15
[2021-11-18] MEDS: IPRATROPIUM BR 0.02% INH SOLN 0.5 MG/2.5 ML VIAL INHALATION (15:36)
[2021-11-18] MEDS: ALBUTEROL SULFATE NEB 2.5 MG/0.5 ML INH 5 MG INHALATION (15:36)
[2021-11-18 15:40] VITALS: PULSE 57; O2SAT 95
[2021-11-18 15:42] VITALS: PULSE 59; RESP 18
[2021-11-18 15:58] VITALS: PULSE 61
[2021-11-18 17:32] LABS: Troponin I < 0.012 ng/mL (0.000-0.034)
[2021-11-18 18:11] VITALS: BP 157/98; PULSE 76; RESP 14; O2SAT 100
== END 2021-11-18 18:12 | disposition home or self-care (01) ==
PROVIDERS: Emergency Provider Emergency Medicine; PCP Nurse Practitioner
DX: R06.00 Dyspnea, unspecified (principal); I25.10 Atherosclerotic heart disease of native coronary artery without angina pectoris; E11.42 Type 2 diabetes mellitus with diabetic polyneuropathy; I50.33 Acute on chronic diastolic (congestive) heart failure; I11.0 Hypertensive heart disease with heart failure; E78.5 Hyperlipidemia, unspecified; E03.9 Hypothyroidism, unspecified; E87.1 Hypo-osmolality and hyponatremia; I25.2 Old myocardial infarction; G89.4 Chronic pain syndrome; G47.33 Obstructive sleep apnea (adult) (pediatric); M06.9 Rheumatoid arthritis, unspecified; K58.9 Irritable bowel syndrome, unspecified; K21.9 Gastro-esophageal reflux disease without esophagitis; F41.9 Anxiety disorder, unspecified; F32.A Depression, unspecified; Z86.2 Personal history of diseases of the blood and blood-forming organs and certain disorders involving the immune mechanism; Z98.49 Cataract extraction status, unspecified eye; Z86.718 Personal history of other venous thrombosis and embolism; Z98.61 Coronary angioplasty status; Z79.82 Long term (current) use of aspirin; R94.31 Abnormal electrocardiogram [ECG] [EKG]; K76.9 Liver disease, unspecified
CPT/HCPCS: 36415; 71046; 71275; 80053; 83690; 83880; 84484; 85025; 85380; 85610; 85730; 93005; 94640; 99284; A9270; Q9967

== ENCOUNTER 2022-05-27 13:39 | Emergency (ER) | payer MEDICARE, BC, SELFPAY ==
--- NOTE | ~2022-05-27 | XR_ITS ---
EXAMINATION: XR chest 2V DATE: 05/27/2022 15:39 INDICATION: Cough and congestion TECHNIQUE: PA and lateral views of the chest are obtained. COMPARISON: 11/18/2021 FINDINGS: The lungs are free of acute opacities. No pleural effusion or pneumothorax. The cardiomedia stinal silhouette is normal. There is mild thoracic spondylosis. Suture anchors are noted in the righ t humeral head. Surgical clips in the right upper quadrant are likely from prior cholecystectomy. IMPRESSION: 1. No acute cardiopulmonary abnormality. Reviewed, dictated and finalized at location B.
--- NOTE | ~2022-05-27 | CT_ITS ---
EXAMINATION: CT thoracic lumbar wo con DATE: 05/27/2022 17:18 INDICATION: back pain . TECHNIQUE: Computed tomography (CT) of the thoracic and lumbar spine was performed without intravenou s contrast. The dose-length product was 899.37 mGy-cm. COMPARISON: CT chest 07/11/2014, CT lumbar spine 09/04/2010. FINDINGS: THORACIC SPINE: Osteopenia. Vertebral body alignment intact. Vertebral body heights preserved. Multilevel degenerativ e disc disease. No traumatic malalignment or fracture. Visualized lung parenchyma is clear. Aortic ar ch ectasia and calcification. Coronary artery and aortic valve calcification. Moderate hiatal hernia. Dependent atelectasis. LUMBAR SPINE: 5 nonrib-bearing lumbar-type vertebral bodies. Pedicles intact. Grade 1 anterolistheses of L4 on L5 a nd L5 on S1, otherwise intact vertebral body alignment. Vertebral body heights preserved. Multilevel severe degenerative disc disease. Lumbar scoliosis with a rotatory component. Multilevel severe facet arthropathy. Severe central canal narrowing at L4-5. Multilevel severe bilateral neural foraminal na rrowing. Bladder wall thickening. IMPRESSION: 1. No acute fracture or traumatic malalignment detected in the thoracic or lumbar spine. Degenerative changes detailed above. 2. Bladder wall thickening as can be seen with cystitis in the appropriate clinical context. Reviewed, dictated and finalized at location K. IMPRESSION: 1. No acute fracture or traumatic malalignment detected in the thoracic or lumb ar spine. Degenerative changes detailed above. 2. Bladder wall thickening as can be seen with cystitis in the appropriate clin ical context.
[2022-05-27 13:43] VITALS: BP 176/80; PULSE 66; RESP 18; TEMP 36.9; O2SAT 98
--- NOTE | 2022-05-27 13:48 | ECG_ITS ---
Measurements Intervals [place] Rate: 64 P: 64 [place]: 183 QRS: -24 QRSD: 85 T: 0 QT: 416 QTc: 432 Interpretive Statements SINUS RHYTHM DELAYED PRECORDIAL R/S TRANSITION VOLTAGE CRITERIA FOR LVH BORDERLINE T WAVE ABNORMALITY- ANT/INF LEADS BORDERLINE ECG COMPARED TO 11-18-21 14:09:30 NO SIGNIFICANT CHANGES Electronically Signed On 05-27-2022 14:27:48 CDT by Jasvir Steele D.O.
--- NOTE | 2022-05-27 15:55 | ED.BACK ---
HPI - Back Pain/Injury General Chief Complaint: Back Pain/Injury Stated Complaint: cough, back pain Time Seen by Provider: 05/27/22 15:55 Source: patient Mode of arrival: wheelchair Limitations: no limitations History of Present Illness HPI Narrative: The patient is a 77 yo female with a hx of HTN, HLD, CAD, NSTEMI, Type II DM, rheumatoid arthritis, presenting to the ER for evaluation of sharp upper back back without radiation of the pain. Pain is worsened with movement. She denies recent fall or injury. Pt endorses cough and congestion as well. Pt denies sputum production or hemoptysis. Pt describes anterior chest discomfort this morning that is now resolved that she felt was related to coughing this morning. Denies fever or chills. Patient denies leg swelling or calf pain. No unilateral redness or history of coagulopathy. Patient takes Plavix, no other anticoagulation. With anterior chest pain, she denies this currently. She denies any radiation of the pain to the jaw, neck, shoulder. She denies any associated shortness of breath with this but states that her chest pain was associated when she was coughing. Pt recently four months ago and she lives independently. Related Data Home Medications Medication Instructions Recorded Confirmed aspirin 81 mg tablet,delayed 81 mg PO DAILY 07/29/19 02/25/22 release (Adult Low Dose Aspirin) clopidogrel 75 mg tablet 75 mg PO DAILY 07/29/19 02/25/22 folic acid 1 mg tablet 1 mg PO TID 07/29/19 02/25/22 meclizine 25 mg tablet 25 mg PO TID PRN Dizziness 07/29/19 02/25/22 montelukast 10 mg tablet 10 mg PO HS 07/29/19 02/25/22 nitroglycerin 0.4 mg sublingual 0.4 mg sublingual Q5M PRN Chest 07/29/19 02/25/22 tablet Pain spironolactone 25 mg tablet 12.5 mg PO DAILY 11/02/19 02/25/22 buspirone 10 mg tablet 10 mg PO TID PRN Anxiety 04/09/21 02/25/22 cetirizine 10 mg capsule (All Day 10 mg PO DAILY 04/09/21 02/25/22 Allergy (cetirizine)) ezetimibe 10 mg tablet 10 mg PO DAILY 04/09/21 02/25/22 fluticasone propionate 50 50 mcg intranasal BID 04/09/21 02/25/22 mcg/actuation nasal spray,suspension hydralazine 50 mg tablet 50 mg PO QID 04/09/21 02/25/22 tetrahydrozoline 0.05 % eye drops 1 drp EACH EYE DAILY PRN Itching 04/09/21 02/25/22 (Eye Drops (tetrahydrozoline)) nebivolol 20 mg tablet 20 mg PO BID 06/26/21 02/25/22 linaclotide 145 mcg capsule 145 mcg PO DAILY PRN ibs 08/31/21 02/25/22 (Linzess) Allergies Allergy/AdvReac Type Severity Reaction Status Date / Time No Known Allergies Allergy Verified 02/27/22 14:38 Review of Systems Review of Systems: CONSTITUTIONAL: Denies fever, chills, or sweats ENT: Reports rhinorrhea and congestion CARDIOVASCULAR: Denies current chest pain, palpitations, or edema. RESPIRATORY:Reports cough without significant dyspnea; she reports chronic dyspnea GASTROINTESTINAL: Denies abdominal pain, nausea, vomiting, or diarrhea. GENITOURINARY: Denies dysuria or hematuria. SKIN: Denies rash or itching. MUSCULOSKELETAL: Reports upper thoracic pain, denies cervical or lumbar pain, no other joint pain NEUROLOGIC: Denies headache, numbness PMFSH Past Medical History Medical History Acute on chronic diastolic (congestive) heart failure Anemia Anxiety Asthma Cataracts, bilateral Chronic hyponatremia Chronic pain syndrome Chronic, continuous use of opioids Coronary artery disease Angioplasty of a diagonal lesion 01/2018. Cardiac catheterization 06/2019 showed patent coronary arteries. Deep venous thrombosis Degenerative joint disease involving multiple joints Depression Gastroesophageal reflux disease Hiatal hernia Hyperlipidemia Hypertension Hypothyroid Irritable bowel syndrome Non-ST elevation [place] (NSTEMI) Obstructive sleep apnea Noncompliant with CPAP. Peptic ulcer Peripheral neuropathy Rheumatoid arthritis Seasonal allergies Type 2 diabetes mellitus without complications
[2022-05-27 16:03] LABS: Basophils Percent Auto 0.3 % (0.2-1.2); Eosinophils Absolute Auto 0.1 K/mm3 (0-0.3); Eosinophils Percent Auto 0.7 % (0-4.4); Hematocrit 37.9 % (37.0-47.0); Hemoglobin 12.9 g/dL (12.0-15.0); Immature Granulocyte Absolute 0.04 K/mm3 (0.00-0.031); Immature Granulocyte Percent A 0.3 % (0-0.5); Lymphocytes Absolute Auto 3.65 K/mm3 (0.9-3.2); Lymphocytes Percent Auto 29.6 % (18.3-44.2); Mean Corpuscular Hemoglobin 29.7 pg (26-34); Mean Corpuscular Volume 87.3 fl (80-100); Mean Platelet Volume 9.9 fl (7.4-10.4); Monocytes Absolute Auto 0.5 K/mm3 (0.1-0.6); Monocytes Percent Auto 4.4 % (2.6-8.5); Neutrophils Percent Auto 64.7 % (45.5-73.1); Platelet Count Result 311 k/mm3 (150-375); Red Blood Count 4.34 M/mm3 (4.2-5.4); Red Cell Distribution Width 12.3 % (11.5-14.5); White Blood Count 12.3 K/mm3 (4.5-10.0)
[2022-05-27 16:12] LABS: Anion Gap 13 mmol/L (8-16); Blood Urea Nitrogen 12 mg/dL (7-17); Calcium 9.6 mg/dL (8.4-10.2); Carbon Dioxide 25 mmol/L (22-30); Chloride 98 mmol/L (98-107); Estimated Glomerular Filt Rate > 60; Glucose 119 mg/dL (65-110); Potassium 3.6 mmol/L (3.4-5.0); Sodium 136 mmol/L (137-145)
[2022-05-27 16:24] LABS: Troponin I < 0.012 ng/mL (0.000-0.034)
[2022-05-27] MEDS: MORPHINE SULFATE (*CRX) 4 MG/ML INJ IV PUSH (16:52)
[2022-05-27] MEDS: ONDANSETRON INJ 4 MG/2 ML VIAL IV PUSH (16:52)
[2022-05-27 19:11] VITALS: BP 142/84; PULSE 82; RESP 19; O2SAT 97
== END 2022-05-27 19:25 | disposition home or self-care (01) ==
PROVIDERS: Emergency Provider Emergency Medicine; PCP Nurse Practitioner
DX: S29.012A Strain of muscle and tendon of back wall of thorax, initial encounter (principal); R05.9 Cough, unspecified; X58.XXXA Exposure to other specified factors, initial encounter; D64.9 Anemia, unspecified; F41.9 Anxiety disorder, unspecified; I25.10 Atherosclerotic heart disease of native coronary artery without angina pectoris; Z98.61 Coronary angioplasty status; F32.9 Major depressive disorder, single episode, unspecified; K21.9 Gastro-esophageal reflux disease without esophagitis; I10 Essential (primary) hypertension; E03.9 Hypothyroidism, unspecified
CPT/HCPCS: 36415; 71046; 72128; 72131; 80048; 84484; 85025; 93005; 96374; 96375; 99284; J2270; J2405

== ENCOUNTER 2022-07-13 08:25 | Observation (INO) | payer MEDICARE, BC, SELFPAY ==
[2022-07-13] VITALS (41 sets, daily range): BP systolic 131–209; BP diastolic 58–100; PULSE 51–73; RESP 9–19; TEMP 36.3–36.9; O2SAT 96–100; BMI 28.6
--- NOTE | ~2022-07-13 | NM_ITS ---
EXAMINATION: NM deidre stress w perfusion DATE: 07/15/2022 12:19 INDICATION: Chest pressure TECHNIQUE: Rest images were obtained following intravenous administration of 11.2 mCi Tc99m tetrofosm in (Myoview). The patient was infused intravenously with Lexiscan (Regadenoson). Then, 34.1 mCi Tc99m tetrofosmin (Myoview) was administered intravenously, and stress images were obtained. Data was cora nstructed into short axis and horizontal and vertical long axis SPECT images. Gated SPECT images were also obtained. COMPARISON: None. FINDINGS: There is no definite reversible or fixed perfusion abnormality to suggest ischemia or infar ction. There is normal left ventricular chamber size, wall motion and ejection fraction. Left ventr icular ejection fraction measures >70%. IMPRESSION: 1. Normal myocardial perfusion at rest and during stress. 2. Left ventricular ejection fraction measuring >70%. Reviewed, dictated and finalized at location B.
--- NOTE | ~2022-07-13 | XR_ITS ---
EXAMINATION: XR chest 2V 07/13/2022 09:08 INDICATION: Chest tightness. Hypertension. PROCEDURE: 2 view chest COMPARISON: Comparison to multiple prior studies sequentially, with oldest reviewed study dated 04/12. FINDINGS: The lungs are clear. The cardiomediastinal silhouette is within normal limits. There are no pleural effusions. There is no pneumothorax suspected. There are changes of resection of the dis félix aspect of the left clavicle. There is a moderate size hiatal hernia. IMPRESSION: 1: NO ACUTE CARDIOPULMONARY DISEASE. Reviewed, dictated and finalized at location A.
--- NOTE | 2022-07-13 08:40 | ECG_ITS ---
Measurements Intervals [place] Rate: 67 P: 57 SC: 182 QRS: -24 QRSD: 90 T: 19 QT: 415 QTc: 440 Interpretive Statements SINUS RHYTHM BORDERLINE LEFT AXIS DEVIATION [QRS AXIS < -20] VOLTAGE CRITERIA FOR LVH [MEETS CRITERIA IN ONE OF: R(aVL), S(V1), R(V5), R(V5/V6)+S(V1)] COMPARED TO ECG 05/27/2022 13:53:38 NO SIGNIFICANT CHANGES Electronically Signed On 07-13-2022 13:07:29 CDT by Mikal Betancourt M.D.
[2022-07-13 08:59] LABS: Prothrombin Time 12.5 Seconds (11.1-14.7)
[2022-07-13 09:00] LABS: Partial Thromboplastin Time 28.5 SECONDS (22.3-36.8)
[2022-07-13 09:02] LABS: Basophils Absolute Auto 0.1 K/mm3 (0.0-0.1); Basophils Percent Auto 0.6 % (0.2-1.2); Eosinophils Absolute Auto 0.2 K/mm3 (0-0.3); Eosinophils Percent Auto 2.2 % (0-4.4); Hematocrit 39.7 % (37.0-47.0); Hemoglobin 13.5 g/dL (12.0-15.0); Immature Granulocyte Absolute 0.02 K/mm3 (0.00-0.031); Immature Granulocyte Percent A 0.2 % (0-0.5); Lymphocytes Absolute Auto 3.76 K/mm3 (0.9-3.2); Lymphocytes Percent Auto 39.9 % (18.3-44.2); Mean Corpuscular Hemoglobin 29.7 pg (26-34); Mean Corpuscular Volume 87.3 fl (80-100); Mean Platelet Volume 10.4 fl (7.4-10.4); Monocytes Absolute Auto 0.6 K/mm3 (0.1-0.6); Monocytes Percent Auto 6.4 % (2.6-8.5); Neutrophils Absolute Auto 4.8 K/mm3 (1.3-6.7); Neutrophils Percent Auto 50.7 % (45.5-73.1); Platelet Count Result 261 k/mm3 (150-375); Red Blood Count 4.55 M/mm3 (4.2-5.4); Red Cell Distribution Width 12.6 % (11.5-14.5); White Blood Count 9.4 K/mm3 (4.5-10.0)
[2022-07-13 09:04] LABS: Alanine Aminotransferase 18 U/L (6-35); Albumin Level 4.5 g/dL (3.5-5.1); Alkaline Phosphatase 122 U/L (38-126); Anion Gap 15 mmol/L (8-16); Aspartate Amino Transferase 30 U/L (14-36); Bilirubin,Total 0.9 mg/dL (0.2-1.3); Blood Urea Nitrogen 11 mg/dL (7-17); Carbon Dioxide 26 mmol/L (22-30); Chloride 97 mmol/L (98-107); Estimated Glomerular Filt Rate > 60; Glucose 140 mg/dL (65-110); Lipase 36 U/L (23-300); Potassium 3.9 mmol/L (3.4-5.0); Sodium 138 mmol/L (137-145)
[2022-07-13 09:15] LABS: Troponin I < 0.012 ng/mL (0.000-0.034)
--- NOTE | 2022-07-13 09:50 | ED.GENADULT ---
HPI - General Adult General Chief complaint: Chest Pain Stated complaint: elevated blood pressure Time Seen by Provider: 07/13/22 08:41 History of Present Illness HPI narrative: This is a 77-year-old female presenting ED with chief complaint of chest pain. Patient has been having intermittent chest heaviness / discomfort for the last week. There are no precipitating factors. It is nonradiating. It is 7/10 in intensity. Patient says that it occurs for approximately 5 minutes at a time about 5 times a day and then self resolves. There are no exacerbating or alleviating factors. Patient denies diaphoresis, vomiting or exertional component. She did say that she felt like she was going to a presyncopal episode yesterday. She did not actually syncopized or fall. Patient denies other physical complaints this time.Patient notes she has significant stress at home is citing the loss of her sister and her . Additionally she is having construction on her house which is a significant stressor. Related Data Home Medications Medication Instructions Recorded Confirmed aspirin 81 mg tablet,delayed 81 mg PO DAILY 07/29/19 02/25/22 release (Adult Low Dose Aspirin) clopidogrel 75 mg tablet 75 mg PO DAILY 07/29/19 02/25/22 folic acid 1 mg tablet 1 mg PO TID 07/29/19 02/25/22 meclizine 25 mg tablet 25 mg PO TID PRN Dizziness 07/29/19 02/25/22 montelukast 10 mg tablet 10 mg PO HS 07/29/19 02/25/22 nitroglycerin 0.4 mg sublingual 0.4 mg sublingual Q5M PRN Chest 07/29/19 02/25/22 tablet Pain spironolactone 25 mg tablet 12.5 mg PO DAILY 11/02/19 02/25/22 buspirone 10 mg tablet 10 mg PO TID PRN Anxiety 04/09/21 02/25/22 cetirizine 10 mg capsule (All Day 10 mg PO DAILY 04/09/21 02/25/22 Allergy (cetirizine)) ezetimibe 10 mg tablet 10 mg PO DAILY 04/09/21 02/25/22 fluticasone propionate 50 50 mcg intranasal BID 04/09/21 02/25/22 mcg/actuation nasal spray,suspension hydralazine 50 mg tablet 50 mg PO QID 04/09/21 02/25/22 tetrahydrozoline 0.05 % eye drops 1 drp EACH EYE DAILY PRN Itching 04/09/21 02/25/22 (Eye Drops (tetrahydrozoline)) nebivolol 20 mg tablet 20 mg PO BID 06/26/21 02/25/22 linaclotide 145 mcg capsule 145 mcg PO DAILY PRN ibs 08/31/21 02/25/22 (Linzess) Allergies Allergy/AdvReac Type Severity Reaction Status Date / Time No Known Allergies Allergy Verified 07/13/22 08:39 Review of Systems Review of Systems: CONSTITUTIONAL: Denies night sweats. EYES: No eye pain ENT: Denies rhinorrhea CARDIOVASCULAR: Denies palpitations RESPIRATORY: Denies hemoptysis GASTROINTESTINAL: Denies hematemesis GENITOURINARY: Denies hematuria. SKIN: Denies rash MUSCULOSKELETAL: Denies myalgia. NEUROLOGIC: Denies weakness. PSYCHIATRIC: Denies delusions PMFSH Past Medical History Medical History Acute on chronic diastolic (congestive) heart failure Anemia Anxiety Asthma Cataracts, bilateral Chronic hyponatremia Chronic pain syndrome Chronic, continuous use of opioids Coronary artery disease Angioplasty of a diagonal lesion 01/2018. Cardiac catheterization 06/2019 showed patent coronary arteries. Deep venous thrombosis Degenerative joint disease involving multiple joints Depression Gastroesophageal reflux disease Hiatal hernia Hyperlipidemia Hypertension Hypothyroid Irritable bowel syndrome Non-ST elevation [place] (NSTEMI) Obstructive sleep apnea Noncompliant with CPAP. Peptic ulcer Peripheral neuropathy Rheumatoid arthritis Seasonal allergies Type 2 diabetes mellitus without complications Diet-controlled. Hemoglobin A1c was 5.7% on 01/24/2021. Surgical History Surgical History H/O heart surgery 07/03 History of appendectomy History of arthroscopy of both shoulders History of cardiac catheterization Angioplasty of a diagonal stenosis 01/2018. Cardiac catheterization 06/2019 showed patent coronar
--- NOTE | 2022-07-13 11:08 | PC.NURSE ---
pt states chest pressure is greatly improved. pt took home oxycontin per ermd approval
[2022-07-13 12:01] LABS: Troponin I < 0.012 ng/mL (0.000-0.034)
[2022-07-13] MEDS: ASPIRIN 81 MG CHEWABLE TABLET 324 MG PO (12:38)
--- NOTE | 2022-07-13 13:15 | PM.IMHP ---
H&P: HPI History of Present Illness Date/Time: 07/13/22 13:15 Chief Complaint: Chest pressure and elevated blood pressure. Narrative: This is a 77-year-old female with multiple medical problems including coronary artery disease, heart failure with preserved ejection fraction, hypertension, hyperlipidemia, diet-controlled diabetes, asthma, hypothyroidism, sleep apnea, rheumatoid arthritis, history of DVT, and chronic pain syndrome who presented to the emergency department earlier today via private vehicle from home for evaluation of chest pressure and elevated blood pressure. She has not felt well since Friday with intermittent episodes of lightheadedness, nausea, and non-radiating mid chest pressure. She has not noticed any significant aggravating or alleviating factor and her symptoms have been self-limiting. She denies associated sweats, vomiting, shortness of breath, pleuritic pain, palpitations, vomiting, focal weakness, and paresthesias. She has had a lot of stress this year, losing her only sibling and her early this spring and more recently she has had construction going on in her home which is taking longer than scheduled and that seems to be causing some stress as well. She does not think however that her stress is so great to be causing the symptoms. Today simply while sitting down watching television, her symptoms returned and at that time she decided to check her blood pressure with a reported systolic reading of 233. She chewed an aspirin 325 milligram and took 1 nitroglycerin tablet and decided to come in for evaluation. Her blood pressures have been consistently elevated since arrival to the ER, ranging between the 170s to the low 200s systolic with normal diastolic readings. Her labs were reassuring and really unremarkable. He has thus far had 2 negative troponins. EKG showed no acute ST segment changes or any other concerning findings. Given her history and risk factors however she is being admitted overnight the IMU for close observation and Cardiology consultation. She looks well at the time my evaluation however she did have an episode of mid chest pressure for which she was given nitroglycerin with improvement in her blood pressure and chest pressure. Review of Systems Review of Systems: Twelve systems were reviewed. No fever, chills, or sweats. No auditory visual changes. No focal weakness or paresthesias. No facial asymmetry. No dysphagia or dysarthria. She developed a pimple like area near the left medial canthus couple of weeks ago which she attributes to her eyeglasses. She has foot Vaseline on the area to prevent irritation from her glasses. The area is not red or painful has not spread beyond that small region. He has not noticed any vesicles or drainage. Appetite is okay. Some nausea with these episodes as detailed above but no vomiting. She has not noticed any dark stools or bright red blood the stool. She has chronic pain related to her rheumatoid arthritis and does see pain management. More recently she was given a prescription for prednisone 10 milligrams p.r.n. daily for pain and she has taken that a few times this month. Her diabetes is diet controlled and she believes it is well controlled. No edema or calf pain. She states compliance with her home medications. Except as documented, all other systems were reviewed and are negative. [facility] Past Medical History Medical History (Updated 07/13/22 @ 14:03 by Silvina Crespo PA-C) Anxiety Asthma Chronic hyponatremia Chronic pain syndrome Chronic, continuous use of opioids Coronary artery disease Angioplasty of a diagonal lesion in 01/2018. Cardiac catheterization 06/2019 showed patent coronary arteries. Deep venous thrombosis Degenerative joint disease involving multiple joints Depression Gastroesophageal reflux disease Heart failure with preserved ejection fraction Hiatal hernia Hyperlipidemia Hypertension Hypothyroidism Irritable bowel syndrome Obstructive
[2022-07-13 13:44] LABS: SARS-CoV-2 RNA PCR Negative
--- NOTE | 2022-07-13 13:44 | PM.CNCAR ---
Assessment and Plan Assessment and plan (1) Chest pain: Code(s): R07.9 - Chest pain, unspecified Status: Acute Assessment and Plan: Troponins negative x 2. ECG without ischemic changes. Last Lexiscan in 04/2021 was negative for ischemia or infarction. Would obtain Lexiscan on Friday. (2) Hypertension: Qualifiers: Hypertension type: unspecified Qualified Code(s): I10 - Essential (primary) hypertension Code(s): I10 - Essential (primary) hypertension Status: Chronic Assessment and Plan: Needs blood pressure control. Management as per hospitalist. (3) Coronary artery disease: Qualifiers: Coronary Disease-Associated Artery/Lesion type: [place] artery [place] vs. transplanted heart: [place] heart Associated angina: without angina Qualified Code(s): I25.10 - Atherosclerotic heart disease of [place] coronary artery without angina pectoris Code(s): I25.10 - Atherosclerotic heart disease of [place] coronary artery without angina pectoris Status: Acute Assessment and Plan: Continue home ASA, Plavix, statin. History of Present Illness History of Present Illness Consult date/time: 07/13/22 13:44 Requesting physician: Benjamin Hutchison MD Consult reason: chest pain Reason For Visit: mod risk chest pain Narrative: Patient is a 77-year-old female with a history of CAD s/p balloon angioplasty to a diagonal vessel, hypertension, rheumatoid arthritis who presented to the ED with chest pain. Patient reports substernal chest pressure that lasts for a few minutes that occurs a few times a day. Began about a week ago, but patient reports her symptoms became bothersome on Friday. Patient has been checking her blood pressures at home and BP is in the 190s-200s systolics at home. Patient states her chest pain improved with NTG. Currently is chest pain free. However BP in the 200s upon my evaluation. Troponins negative x 2. ECG without ischemic changes. Review of Systems Review of Systems: 12-point ROS obtained. Negative, unless stated in HPI. [facility] Past Medical History Medical History Anxiety Asthma Chronic hyponatremia Chronic pain syndrome Chronic, continuous use of opioids Coronary artery disease Angioplasty of a diagonal lesion 01/2018. Cardiac catheterization 06/2019 showed patent coronary arteries. Deep venous thrombosis Degenerative joint disease involving multiple joints Depression Gastroesophageal reflux disease Hiatal hernia Hyperlipidemia Hypertension Hypothyroidism Irritable bowel syndrome Obstructive sleep apnea Noncompliant with CPAP. Peptic ulcer Peripheral neuropathy Rheumatoid arthritis Seasonal allergies Type 2 diabetes mellitus without complications Diet-controlled. Hemoglobin A1c was 5.7% on 01/24/2021. Surgical History Surgical History History of appendectomy History of arthroscopy of both shoulders History of cardiac catheterization Angioplasty of a diagonal stenosis 01/2018. Cardiac catheterization 06/2019 showed patent coronary arteries. History of carpal tunnel release History of cholecystectomy History of foot surgery History of hysterectomy History of phacoemulsification of cataract with intraocular lens implantation Family History Family History Grandparent Diabetes mellitus Father Acute myocardial infarction Diabetes mellitus Hypertension Mother Hypertension Diabetes mellitus Sibling Diabetes mellitus Hypertension Other Family history of cardiovascular disease Family history of malignant neoplasm of brain Social History Social History Social History: The patient lives in [place]. Her recently passed. 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 Lifelong nonsmoker. She
[2022-07-13] MEDS: NITROGLYCERIN SL 0.4 MG TABLET SUBLINGUAL (13:56)
--- NOTE | 2022-07-13 15:37 | ADMGEN ---
This patient, Aracely Spear, was admitted to IMU Room 213-01. Patient/family oriented to hospital policies and general routines including ID bracelet, bed and alarms, visiting hours, pain management, procedures, bathroom and other care routines, personal items, smoking policy, room service/diet, and visiting hours. Information on how to activate the Rapid Response Team has been discussed. Patient/Family are encouraged to report perceived risks to care and to ask questions if they do not understand what they are told or what they should do.
[2022-07-13 17:12] LABS: Troponin I < 0.012 ng/mL (0.000-0.034)
[2022-07-13 17:18] LABS: Hemoglobin A1C 6.1 % (<5.7)
[2022-07-13 17:44] LABS: Glucose Point of Care 117 mg/dl (65-105)
[2022-07-13] MEDS: oxyCODONE/ACETAMINOPHEN (*CRX) 10-325 MG TABLET 1 TAB PO (19:00)
[2022-07-13 19:47] LABS: Glucose Point of Care 157 mg/dl (65-105)
[2022-07-13] MEDS: busPIRone HCL 10 MG TABLET PO (20:00)
[2022-07-13] MEDS: hydrALAZINE HCL 50 MG TABLET PO (20:00)
[2022-07-13] MEDS: ATORVASTATIN 40 MG TABLET PO (20:01)
[2022-07-14] VITALS (21 sets, daily range): BP systolic 118–180; BP diastolic 51–73; PULSE 51–74; RESP 16–20; TEMP 36.2–36.6; O2SAT 95–100
[2022-07-14] MEDS: oxyCODONE/ACETAMINOPHEN (*CRX) 10-325 MG TABLET 1 TAB PO ×4 (01:05→19:23)
[2022-07-14 05:38] LABS: Anion Gap 8 mmol/L (8-16); Blood Urea Nitrogen 13 mg/dL (7-17); Calcium 8.4 mg/dL (8.4-10.2); Carbon Dioxide 26 mmol/L (22-30); Chloride 100 mmol/L (98-107); Estimated Glomerular Filt Rate > 60; Glucose 102 mg/dL (65-110); Potassium 3.4 mmol/L (3.4-5.0); Sodium 134 mmol/L (137-145)
[2022-07-14 06:24] LABS: Thyroid Stimulating Hormone Reflex 0.703 uIU/mL (0.465-4.68)
[2022-07-14] MEDS: LEVOTHYROXINE SODIUM 88 MCG TABLET PO (06:58)
[2022-07-14 07:34] LABS: Glucose Point of Care 129 mg/dl (65-105)
[2022-07-14] MEDS: FLUTICASONE/SALMETEROL 115-21 MCG INHALER 1 PUFF 2 PUFF INHALATION ×2 (08:15→20:21)
[2022-07-14] MEDS: FLUTICASONE PROPIONATE 0.05% NA SPR 16 GM BTL (*BKC) 1 SPRAY NASAL ×2 (08:31→22:20)
[2022-07-14] MEDS: NEBIVOLOL HCL 5 MG TABLET 20 MG PO ×2 (08:31→22:20)
[2022-07-14] MEDS: hydrALAZINE HCL 50 MG TABLET PO ×4 (08:33→22:20)
[2022-07-14] MEDS: SPIRONOLACTONE 12.5 MG TABLET PO (08:33)
[2022-07-14] MEDS: FOLIC ACID 1 MG TABLET PO ×3 (08:34→17:29)
[2022-07-14] MEDS: amLODIPine BESYLATE 5 MG TABLET PO (08:34)
[2022-07-14] MEDS: CLOPIDOGREL BISULFATE 75 MG TABLET PO (08:34)
[2022-07-14] MEDS: LINACLOTIDE 145 MCG CAPSULE PO (08:34)
[2022-07-14] MEDS: SODIUM CHLORIDE 1 GM TABLET PO ×2 (08:35→17:30)
[2022-07-14] MEDS: EZETIMIBE 10 MG TABLET PO (08:35)
[2022-07-14] MEDS: PANTOPRAZOLE SOD SESQUIHYDRATE 20 MG TAB PO ×2 (08:35→22:20)
[2022-07-14] MEDS: ASPIRIN 81 MG ENTERIC TABLET PO (08:35)
[2022-07-14] MEDS: busPIRone HCL 10 MG TABLET PO (08:35)
[2022-07-14] MEDS: LORATADINE 10 MG TABLET PO (08:36)
[2022-07-14 12:13] LABS: Glucose Point of Care 191 mg/dl (65-105)
--- NOTE | 2022-07-14 16:21 | PM.IMPN ---
Progress Note: A&P Assessment and Plan (1) Chest pain: Code(s): R07.9 - Chest pain, unspecified Status: Acute Assessment and Plan: The patient presents today with intermittent episodes of self-limiting, nonradiating mid chest pressure associated with occasional nausea and lightheadedness. EKG on arrival showed no acute ST segment changes. CXR clear. COVID negative. Troponin negative x3. Her systolic blood pressure 209 and this may very well be causing her symptoms. Sublingual nitroglycerin x1 improved her chest pressure and blood pressures. Cardiology consulted. Plan for stress test tomorrow. (2) Coronary artery disease: Qualifiers: Associated angina: without angina Coronary Disease-Associated Artery/Lesion type: [place] artery [place] vs. transplanted heart: [place] heart Qualified Code(s): I25.10 - Atherosclerotic heart disease of [place] coronary artery without angina pectoris Code(s): I25.10 - Atherosclerotic heart disease of [place] coronary artery without angina pectoris Status: Acute Assessment and Plan: Status post angioplasty to a diagonal branch in 2018. LHC in June 2019 showed nonobstructing disease. Continue dual-antiplatelet therapy, statin, and beta-xavier. (3) Hypertension: Qualifiers: Hypertension type: unspecified Qualified Code(s): I10 - Essential (primary) hypertension Code(s): I10 - Essential (primary) hypertension Status: Chronic Assessment and Plan: Patient having episodes of isolated systolic HTN the last week which may very well be causing her symptoms. No obvious etiology. No OTC medications. Prednisone started but only has a few doses. She has had a lot of stress lately that could be playing a factor. She is compliant with her home medications. BP better and seems too well controlled. Continue home meds and monitor. (4) Hyperlipidemia: Qualifiers: Hyperlipidemia type: unspecified Qualified Code(s): E78.5 - Hyperlipidemia, unspecified Code(s): E78.5 - Hyperlipidemia, unspecified Status: Chronic Assessment and Plan: LFTs normal. Continue statin. (5) Hypothyroidism: Code(s): E03.9 - Hypothyroidism, unspecified Status: Acute Assessment and Plan: TSH normal. Continue levothyroxine. (6) Type 2 diabetes mellitus without complications: Qualifiers: Diabetes mellitus terminal supervisor insulin use: without terminal supervisor use Qualified Code(s): E11.9 - Type 2 diabetes mellitus without complications Code(s): E11.9 - Type 2 diabetes mellitus without complications Status: Acute Assessment and Plan: A1c 6.1. Patient Diet-controlled diabetes. The patient's blood glucose was reviewed on 07/14 Glucose remains well controlled. Continue AccuCheks covering with sliding scale. Hypoglycemia protocol available as needed. Continue current medications. (7) Heart failure with preserved ejection fraction: Code(s): I50.30 - Unspecified diastolic (congestive) heart failure Status: Acute Assessment and Plan: Clinically compensated. Monitor volume status with I/O and daily weights. Subjective Date/time seen: 07/14/22 16:21 Interval history: 77yo female with CAD, HTN, DM and CHF here for chest pain and elevated BP. CP was 'tight and heavy'. No CP now. Slept poorly last night. Noted increasing BP over the past week. No new OTC. No changes in medications. She is compliant with her home medications. Exam Narrative: AF 97.8 118/51 64 20 95% ra Gen - NARD Chest - bibasilar crackles, nml RR CV - RRR S1/S2. Tele showing no significant dysrhythmias Abd - Soft, NT/ND, Positive BS Ext - No pedal edema Psych - Nml mood and affect Skin - Warm and dry Objective Data Vital Signs Vital Signs: Vital Signs - 24 hr 07/13/22 18:00 07/13/22 20:00 07/13/22 21:21 Temperature 98.1 F Pulse Rate 73 56 L Respiratory Rate
[2022-07-14 16:38] LABS: Glucose Point of Care 164 mg/dl (65-105)
[2022-07-14 21:22] LABS: Glucose Point of Care 138 mg/dl (65-105)
[2022-07-14] MEDS: MONTELUKAST SODIUM 10 MG TABLET PO (22:19)
[2022-07-14] MEDS: ATORVASTATIN 40 MG TABLET PO (22:20)
[2022-07-15] VITALS (11 sets, daily range): BP systolic 142–156; BP diastolic 52–72; PULSE 58–73; RESP 18–20; TEMP 36.4–36.8; O2SAT 96–100
[2022-07-15] MEDS: oxyCODONE/ACETAMINOPHEN (*CRX) 10-325 MG TABLET 1 TAB PO ×3 (01:08→12:24)
[2022-07-15] MEDS: LEVOTHYROXINE SODIUM 88 MCG TABLET PO (06:41)
--- NOTE | 2022-07-15 08:34 | EST_ITS ---
Patient Info Name: Aracely Spear Age: 77 years : 1945 Gender: Female Ht: 59 in Wt: 141 lbs BSA: 1.65 m2 HR: 66 bpm BP: 215 / 87 mmHg Heart Rhythm: Sinus Rhythm Exam Date: 07/15/2022 11:25 AM Exam Location: [facility] Patient Status: Inpatient Admit Date: 07/13/2022 Staff Ordering Physician: Gumaro Gasca MD Attending Provider: Rishi Ram MD Exercise Technologist: Salena Rush CT Exercise Physician: Mikal Betancourt MD Exam Type: CA stress deidre w NM Study Info Indications R07.9 - Chest pain, unspecified A regadenoson stress test was performed. Summary 1. Please correlate with nuclear medicine images, reported separately. 2. No abnormal ST-T wave changes diagnostic of ischemia with lexiscan. Protocol: Lexiscan Stress ECG Details Stage: REST Duration (min): 3 min : 4 sec HR (bpm): 66 SBP (mmHg): 215 DBP (mmHg): 87 Stage: REST Duration (min): 8 min : 31 sec HR (bpm): 68 SBP (mmHg): 215 DBP (mmHg): 87 Stage: STAGE 1 Duration (min): 0 min : 59 sec HR (bpm): 76 SBP (mmHg): 203 DBP (mmHg): 97 Stage: RECOVERY Duration (min): 1 min : 0 sec HR (bpm): 92 SBP (mmHg): 203 DBP (mmHg): 97 Stage: RECOVERY Duration (min): 2 min : 0 sec HR (bpm): 89 SBP (mmHg): 203 DBP (mmHg): 97 Stage: RECOVERY Duration (min): 3 min : 0 sec HR (bpm): 84 SBP (mmHg): 184 DBP (mmHg): 88 Stage: RECOVERY Duration (min): 3 min : 22 sec HR (bpm): 86 SBP (mmHg): 184 DBP (mmHg): 88 Rest HR: 68 bpm Peak HR: 92 bpm Rest Sys BP: 215 mmHg Peak Sys BP: 203 mmHg Max Pred HR: 141 bpm % Max Pred HR: 65 % Target HR: 120 bpm Max RPP: 18,676 bpm*mmHg Total Time: 1 min : 0 sec Rest Hu BP: 87 mmHg Peak Hu BP: 97 mmHg Total Dose: 0.4 mg Resting ECG Sinus rhythm. Stress ECG Sinus rhythm. No ST-T wave changes diagnostic of ischemia. Arrhythmias Occasional PVCs. Report Signatures
[2022-07-15 08:42] LABS: Glucose Point of Care 118 mg/dl (65-105)
[2022-07-15] MEDS: hydrALAZINE HCL 50 MG TABLET PO ×3 (08:45→17:20)
[2022-07-15] MEDS: FLUTICASONE PROPIONATE 0.05% NA SPR 16 GM BTL (*BKC) 1 SPRAY NASAL (08:45)
[2022-07-15] MEDS: LORATADINE 10 MG TABLET PO (08:45)
[2022-07-15] MEDS: SPIRONOLACTONE 12.5 MG TABLET PO (08:45)
[2022-07-15] MEDS: NEBIVOLOL HCL 5 MG TABLET 20 MG PO (08:45)
[2022-07-15] MEDS: FOLIC ACID 1 MG TABLET PO ×3 (08:46→17:20)
[2022-07-15] MEDS: SODIUM CHLORIDE 1 GM TABLET PO ×2 (08:46→17:20)
[2022-07-15] MEDS: PANTOPRAZOLE SOD SESQUIHYDRATE 20 MG TAB PO (08:46)
[2022-07-15] MEDS: amLODIPine BESYLATE 5 MG TABLET PO (08:46)
[2022-07-15] MEDS: CLOPIDOGREL BISULFATE 75 MG TABLET PO (08:46)
[2022-07-15] MEDS: EZETIMIBE 10 MG TABLET PO (08:46)
[2022-07-15] MEDS: ASPIRIN 81 MG ENTERIC TABLET PO (08:46)
[2022-07-15] MEDS: FLUTICASONE/SALMETEROL 115-21 MCG INHALER 1 PUFF 2 PUFF INHALATION (09:18)
[2022-07-15 13:18] LABS: Glucose Point of Care 111 mg/dl (65-105)
--- NOTE | 2022-07-15 13:35 | PM.PNCARD ---
Progress Note: A&P Assessment and Plan (1) Chest pain: Code(s): R07.9 - Chest pain, unspecified Status: Acute Plan 77-year-old lady with: Chest pain syndrome atypical of angina. She has been ruled out for acute coronary syndrome and has had a negative nuclear Lexiscan stress test this morning. Reviewing her chart she had a very similar presentation last year and had also negative Lexiscan stress test at that time as well. Told the patient that at this point she does not have any additional/ongoing cardiac reason for her to remain hospitalized. She does have follow-up she believes scheduled with my partner, Dr. Pedraza within the next 1-2 months. This should be appropriate. Gumaro Gasca MD [facility] Subjective Date/time seen: Date of service: 07/15/22 13:35 Interval history: Follow-up visit in this 77-year-old lady with: Coronary artery disease prior history of PTCA of diagonal branch of her LAD. Patient admitted with some chest pain that is atypical of angina. Lexiscan nuclear stress test today was unremarkable. Patient was happy to receive these results today. Exam Const: General: comfortable and no acute distress HENMT: Mouth: Yes moist mucous membranes Eyes: Sclera: sclerae normal Neck: Neck: supple and no JVD Other: Carotid pulses are unremarkable bilaterally Resp: Effort & Inspection: normal respiratory effort Auscultation: clear to auscultation bilaterally Cardio: Rate: regular rate Rhythm: regular rhythm GI: GI Palp: Yes Soft to palpation Auscultation: normal bowel sounds Skin: General skin exam: normal color Neuro: Other: Alert and oriented x3 Objective Data Vital Signs Vital Signs: Vital Signs - 24 hr 07/14/22 16:26 07/14/22 14:00 07/14/22 16:00 Temperature 36.2 C L Pulse Rate 58 L 62 58 L Respiratory Rate 20 Blood Pressure 124/54 L Pulse Oximetry 98 Oxygen Delivery 07/14/22 16:00 07/14/22 19:18 07/14/22 20:23 Temperature 36.4 C Pulse Rate 62 69 Respiratory Rate 18 18 Blood Pressure 127/58 L Pulse Oximetry 97 Oxygen Delivery Room Air 07/14/22 18:00 07/14/22 20:38 07/14/22 20:00 Temperature Pulse Rate 65 74 Respiratory Rate 20 Blood Pressure Pulse Oximetry Oxygen Delivery Room Air 07/14/22 23:43 07/15/22 00:00 07/14/22 20:00 Temperature 36.4 C Pulse Rate 63 63 Respiratory Rate 18 Blood Pressure 145/73 H Pulse Oximetry 100 Oxygen Delivery Room Air 07/14/22 22:00 07/15/22 00:00 07/15/22 02:00 Temperature Pulse Rate 61 68 61 Respiratory Rate Blood Pressure Pulse Oximetry Oxygen Delivery 07/15/22 04:00 07/15/22 04:00 07/15/22 04:00 Temperature 36.8 C Pulse Rate 63 64 Respiratory Rate 18 Blood Pressure 142/52 H Pulse Oximetry 100 Oxygen Delivery Room Air 07/15/22 06:00 07/15/22 08:00 07/15/22 09:19 Temperature 36.4 C L Pulse Rate 60 64 Respiratory Rate 18 Blood Pressure 156/72 H Pulse Oximetry 97 97 Oxygen Delivery Room Air 07/15/22 08:00 07/15/22 08:00 07/15/22 10:00 Temperature Pulse Rate 58 L 73 Respiratory Rate Blood Pressure Pulse Oximetry Oxygen Delivery Room Air 07/15/22 12:00 07/15/22 12:00 Temperature Pulse Rate 68 Respiratory Rate Blood Pressure Pulse Oximetry Oxygen Delivery Room Air Intake/Output Intake/Output: Intake & Output 07/12/22 07/13/22 07/14/22 07/15/22 23:59 23:59 23:59 23:59 Intake Total 240 2010 Output Total 100 1999 300 Balance 140 10 -300 Meds/Results Medications: Active Medications Generic Name Dose Route Start Last Admin Trade Name Freq PRN Reason Stop Dose Admin Albuterol 1 puff 07/13/22 20:00 Albuterol Sulfate (*Sp) Aerosol 1 Puff INHALATION QIDRT PRN Shortness Of Breath Amlodipine Besylate 5 mg 07/14/22 09:00 07/15/22 08:46 Amlodipine Besylate 5 Mg Tablet PO 5 mg DAILY GINO Administration Aspirin 81 mg
--- NOTE | 2022-07-15 14:18 | PM.DS ---
DS: Admitting Diagnosis Discharge Date 07/15/22 Admitting Diagnosis Chest pain DS: Discharge Diagnosis Discharge Diagnosis (1) Chest pain: Code(s): R07.9 - Chest pain, unspecified Status: Acute (2) Hypertension: Qualifiers: Hypertension type: unspecified Qualified Code(s): I10 - Essential (primary) hypertension Code(s): I10 - Essential (primary) hypertension Status: Chronic (3) Coronary artery disease: Qualifiers: Coronary Disease-Associated Artery/Lesion type: [place] artery [place] vs. transplanted heart: [place] heart Associated angina: without angina Qualified Code(s): I25.10 - Atherosclerotic heart disease of [place] coronary artery without angina pectoris Code(s): I25.10 - Atherosclerotic heart disease of [place] coronary artery without angina pectoris Status: Acute (4) Hyperlipidemia: Qualifiers: Hyperlipidemia type: unspecified Qualified Code(s): E78.5 - Hyperlipidemia, unspecified Code(s): E78.5 - Hyperlipidemia, unspecified Status: Chronic (5) Hypothyroidism: Code(s): E03.9 - Hypothyroidism, unspecified Status: Acute (6) Type 2 diabetes mellitus without complications: Qualifiers: Diabetes mellitus long-term insulin use: without long-term use Qualified Code(s): E11.9 - Type 2 diabetes mellitus without complications Code(s): E11.9 - Type 2 diabetes mellitus without complications Status: Acute (7) Heart failure with preserved ejection fraction: Code(s): I50.30 - Unspecified diastolic (congestive) heart failure Status: Acute DS: Summary Hospital Course Reason for hospitalization: 77yo female with CAD, HTN, DM and CHF here for chest pain and elevated BP. Please see H&P for details Hospital Course: The patient presents with intermittent episodes of self-limiting, nonradiating mid chest pressure associated with occasional nausea and lightheadedness. EKG on arrival showed no acute ST segment changes. CXR clear. COVID negative. Troponin negative x3. Her blood pressure was 209/88 whcih may be the etiology of her chest pain. Sublingual nitroglycerin x1 improved her chest pressure and blood pressures. Cardiology consulted and appreciate their input. Lexiscan stress test performed showing no ST-T wave changes and no definite reversible or fixed perfusion abnormality to suggest ischemia or infarction. EF was 70%. Patient states she was having episodes of isolated systolic HTN the last week. No obvious etiology. No new OTC medications. Prednisone started but only has had a few doses. She has been under a lot of stress lately that could be playing a factor. She is compliant with her home medications. BP better and even dropped to 118/51. Anti-HTN medications were not adjusted for this reason. She feels well. No further symptoms. She overall did well and was able to be discharged home on 07/15/22 Status at Discharge Cognitive/behavioral status at discharge: Stable Time Spent with Patient Time attestation: Total time spent providing and/or coordinating discharge services: 34 minutes Time spent: Greater than 30 minutes Exam Narrative: AF 98.2 153/56 61 20 96% ra Gen - NARD Chest - CTA bilaterally. nml RR CV - RRR S1/S2. Tele showing no significant dysrhythmias Abd - Soft, NT/ND, Positive BS Ext - No pedal edema Psych - Nml mood and affect Skin - Warm and dry DS: Data Data Completed and Pending Labs on day of discharge: Labs from last 24 hours 07/15/22 07/15/22 07/14/22 12:57 08:32 20:49 POC Capillary Glucose 111 H 118 H 138 H 07/14/22 16:13 POC Capillary Glucose 164 H Discharge Plan Discharge Attending physician on discharge: Rishi Ram Consulting providers: Mikal Betancourt Discharging Clinician: Rishi Ram Anticipated Discharge Date/Time: 07/15/22 14:35 Patient Disposition: Home, Self-Care Activity: a
[2022-07-15 16:51] LABS: Glucose Point of Care 101 mg/dl (65-105)
== END 2022-07-15 17:30 | disposition home or self-care (01) ==
LOC: ANHED 12:46 → ANHIMU 13:26
PROVIDERS: Physician Assistant; Admitting Provider Internal Medicine; Emergency Provider Emergency Medicine; PCP Nurse Practitioner; Visit Provider Internal Medicine
DX: R07.9 Chest pain, unspecified (principal); I11.0 Hypertensive heart disease with heart failure; I50.33 Acute on chronic diastolic (congestive) heart failure; D64.9 Anemia, unspecified; E87.1 Hypo-osmolality and hyponatremia; F32.A Depression, unspecified; F41.9 Anxiety disorder, unspecified; I25.10 Atherosclerotic heart disease of native coronary artery without angina pectoris; E78.5 Hyperlipidemia, unspecified; E03.9 Hypothyroidism, unspecified; E11.42 Type 2 diabetes mellitus with diabetic polyneuropathy; K21.9 Gastro-esophageal reflux disease without esophagitis; Z98.61 Coronary angioplasty status; Z20.822 Contact with and (suspected) exposure to COVID-19; J45.909 Unspecified asthma, uncomplicated; G89.4 Chronic pain syndrome; Z99.89 Dependence on other enabling machines and devices; M06.9 Rheumatoid arthritis, unspecified; G47.33 Obstructive sleep apnea (adult) (pediatric); Z91.199 Patient's noncompliance with other medical treatment and regimen due to unspecified reason; I25.2 Old myocardial infarction; Z86.718 Personal history of other venous thrombosis and embolism; Z79.82 Long term (current) use of aspirin; Z79.02 Long term (current) use of antithrombotics/antiplatelets; Z79.1 Long term (current) use of non-steroidal anti-inflammatories (NSAID); Z79.51 Long term (current) use of inhaled steroids; Z79.891 Long term (current) use of opiate analgesic; Z79.899 Other long term (current) drug therapy; Z82.49 Family history of ischemic heart disease and other diseases of the circulatory system; Z83.3 Family history of diabetes mellitus
CPT/HCPCS: 36415; 71046; 78452; 80048; 80053; 82948; 83036; 83690; 84443; 84484; 85025; 85610; 85730; 93005; 93017; 94640; 99285; A9270; A9502; G0378; J2785; U0003; U0005

== ENCOUNTER 2022-07-21 17:10 | Emergency (ER) | payer MEDICARE, BC, SELFPAY ==
[2022-07-21] VITALS (7 sets, daily range): BP systolic 144–178; BP diastolic 57–77; PULSE 56–76; RESP 11–18; TEMP 37.9; O2SAT 97–99
--- NOTE | ~2022-07-21 | CT_ITS ---
EXAMINATION: CT brain wo con DATE: 07/21/2022 20:49 INDICATION: severe VARGAS . TECHNIQUE: Computed tomography (CT) of the head was performed without intravenous contrast. The mA wa s adjusted according to patient size. Iterative reconstruction technique was employed. The dose-lengt h product was 605.33 mGy-cm. COMPARISON: 04/11/2017 FINDINGS: No acute intracranial hemorrhage or extra-axial fluid collection. No hydrocephalus, mass, or herniation. No acute ischemic infarct. Unremarkable dural venous sinus attenuation. No acute osseous abnormality. The aerated spaces are clear. Mild atrophy and chronic white matter change. Atherosclerotic intracranial calcification. Bilateral l ens replacements. IMPRESSION: No acute intracranial process. Reviewed, dictated and finalized at location K. [employer]
[2022-07-21 18:05] LABS: Influenza A QL RT-PCR Negative (Negative); Influenza B QL RT-PCR Negative (Negative); SARS-CoV-2 RNA PCR Negative
--- NOTE | 2022-07-21 20:17 | ED.GENADULT ---
HPI - General Adult General Chief complaint: Recheck/Abnormal Lab/Rx Stated complaint: high BP, nose bleed Time Seen by Provider: 07/21/22 20:16 History of Present Illness HPI narrative: Patient is a 77-year-old female with a history of hypertension, hyperlipidemia, CHF, GERD, hypothyroidism presenting with a headache. Patient states that she was admitted to the hospital about a week ago for a stress test. Patient states that that went well but she has had a headache since that time. States that she has never had a headaches in the past so she is concerned. Patient states that earlier today she also had a right-sided nosebleed and states that she has never had a nosebleed before. States that she checked her blood pressure and she was hypertensive in the 160s systolic so she asked her friend to bring her in for evaluation. Patient states that the nosebleed resolved once she arrived here. She continues to have a diffuse headache though. She denies vision changes, numbness, weakness, ambulatory dysfunction, speech difficulties. She denies fevers or chills, cough, shortness of breath, chest pain, abdominal pain, vomiting, diarrhea, leg swelling. Related Data Home Medications Medication Instructions Recorded Confirmed aspirin 81 mg tablet,delayed 81 mg PO DAILY 07/29/19 07/13/22 release (Adult Low Dose Aspirin) clopidogrel 75 mg tablet 75 mg PO DAILY 07/29/19 07/13/22 montelukast 10 mg tablet 10 mg PO HS 07/29/19 07/13/22 nitroglycerin 0.4 mg sublingual 0.4 mg sublingual Q5M PRN Chest 07/29/19 07/13/22 tablet Pain spironolactone 25 mg tablet 12.5 mg PO DAILY 11/02/19 07/13/22 cetirizine 10 mg capsule (All Day 10 mg PO DAILY 04/09/21 07/13/22 Allergy (cetirizine)) ezetimibe 10 mg tablet 10 mg PO DAILY 04/09/21 07/13/22 fluticasone propionate 50 50 mcg intranasal BID 04/09/21 07/13/22 mcg/actuation nasal spray,suspension hydralazine 50 mg tablet 50 mg PO QID 04/09/21 07/13/22 tetrahydrozoline 0.05 % eye drops 1 drp EACH EYE DAILY PRN Itching 04/09/21 07/13/22 (Eye Drops (tetrahydrozoline)) nebivolol 20 mg tablet 20 mg PO BID 06/26/21 07/13/22 linaclotide 145 mcg capsule 145 mcg PO DAILY PRN ibs 08/31/21 07/13/22 (Linzess) vitamins A,C,B-pcxx-ogylhh 14,320 1 cap PO QAM AND QPM 07/19/22 unit-226 mg-200 unit capsule (PreserVision AREDS) Allergies Allergy/AdvReac Type Severity Reaction Status Date / Time No Known Allergies Allergy Verified 07/21/22 20:08 Review of Systems Review of Systems: All systems reviewed & are unremarkable except as noted in HPI and below PMFSH Past Medical History Medical History Anxiety Asthma Chronic hyponatremia Chronic pain syndrome Chronic, continuous use of opioids Coronary artery disease Angioplasty of a diagonal lesion in 01/2018. Cardiac catheterization 06/2019 showed patent coronary arteries. Deep venous thrombosis Degenerative joint disease involving multiple joints Depression Gastroesophageal reflux disease Heart failure with preserved ejection fraction Hiatal hernia Hyperlipidemia Hypertension Hypothyroidism Irritable bowel syndrome Obstructive sleep apnea Noncompliant with CPAP. Peptic ulcer Peripheral neuropathy Rheumatoid arthritis Seasonal allergies Type 2 diabetes mellitus without complications Diet-controlled. Hemoglobin A1c was 5.7% on 01/24/2021. Surgical History Surgical History History of appendectomy History of arthroscopy of both shoulders History of cardiac catheterization Angioplasty of a diagonal stenosis 01/2018. Cardiac catheterization 06/2019 showed patent coronary arteries. History of carpal tunnel release History of cholecystectomy History of foot surgery History of hysterectomy History of phacoemulsification of cataract with intraocular lens implantation Family History Family History (Reviewed 07/21/22 @ 20:33
[2022-07-21] MEDS: SODIUM CHLORIDE 0.9% IV 1,000 ML 999 ML IV CONT (20:57)
[2022-07-21 21:07] LABS: Basophils Absolute Auto 0.1 K/mm3 (0.0-0.1); Basophils Percent Auto 0.6 % (0.2-1.2); Eosinophils Absolute Auto 0.2 K/mm3 (0-0.3); Eosinophils Percent Auto 1.7 % (0-4.4); Hematocrit 38.1 % (37.0-47.0); Hemoglobin 12.6 g/dL (12.0-15.0); Immature Granulocyte Absolute 0.02 K/mm3 (0.00-0.031); Immature Granulocyte Percent A 0.2 % (0-0.5); Lymphocytes Percent Auto 41.1 % (18.3-44.2); Mean Corpuscular HGB Conc 33.1 g/dl (32-36); Mean Corpuscular Hemoglobin 29.6 pg (26-34); Mean Corpuscular Volume 89.4 fl (80-100); Mean Platelet Volume 10.2 fl (7.4-10.4); Monocytes Absolute Auto 0.7 K/mm3 (0.1-0.6); Monocytes Percent Auto 7.6 % (2.6-8.5); Neutrophils Absolute Auto 4.6 K/mm3 (1.3-6.7); Neutrophils Percent Auto 48.8 % (45.5-73.1); Platelet Count Result 297 k/mm3 (150-375); Red Blood Count 4.26 M/mm3 (4.2-5.4); Red Cell Distribution Width 12.7 % (11.5-14.5); White Blood Count 9.5 K/mm3 (4.5-10.0)
[2022-07-21 21:20] LABS: Alanine Aminotransferase 18 U/L (6-35); Albumin Level 4.3 g/dL (3.5-5.1); Alkaline Phosphatase 116 U/L (38-126); Anion Gap 10 mmol/L (8-16); Aspartate Amino Transferase 28 U/L (14-36); Bilirubin,Total 1.1 mg/dL (0.2-1.3); Blood Urea Nitrogen 11 mg/dL (7-17); Calcium 8.8 mg/dL (8.4-10.2); Carbon Dioxide 27 mmol/L (22-30); Chloride 101 mmol/L (98-107); Estimated Glomerular Filt Rate > 60; Glucose 114 mg/dL (65-110); Potassium 3.7 mmol/L (3.4-5.0); Sodium 138 mmol/L (137-145)
== END 2022-07-21 22:41 | disposition home or self-care (01) ==
PROVIDERS: Emergency Provider Emergency Medicine; PCP Nurse Practitioner
DX: R51.9 Headache, unspecified (principal); Z20.822 Contact with and (suspected) exposure to COVID-19; I50.9 Heart failure, unspecified; I11.0 Hypertensive heart disease with heart failure; J45.909 Unspecified asthma, uncomplicated; I25.10 Atherosclerotic heart disease of native coronary artery without angina pectoris; E11.42 Type 2 diabetes mellitus with diabetic polyneuropathy; K21.9 Gastro-esophageal reflux disease without esophagitis; E03.9 Hypothyroidism, unspecified; K58.9 Irritable bowel syndrome, unspecified; G47.33 Obstructive sleep apnea (adult) (pediatric); M06.9 Rheumatoid arthritis, unspecified; Z86.718 Personal history of other venous thrombosis and embolism; Z79.82 Long term (current) use of aspirin; Z90.710 Acquired absence of both cervix and uterus; Z98.61 Coronary angioplasty status
CPT/HCPCS: 36415; 70450; 80053; 85025; 87502; 96361; 96365; 99284; J0131; J7030; U0003; U0005

== ENCOUNTER 2022-08-13 11:37 | Outpatient (CLI) | payer MEDICARE, BC, SELFPAY ==
[2022-08-13 12:15] LABS: Basophils Absolute Auto 0.1 K/mm3 (0.0-0.1); Basophils Percent Auto 0.5 % (0.2-1.2); Eosinophils Absolute Auto 0.1 K/mm3 (0-0.3); Eosinophils Percent Auto 0.6 % (0-4.4); Hematocrit 39.6 % (37.0-47.0); Hemoglobin 13.4 g/dL (12.0-15.0); Immature Granulocyte Absolute 0.04 K/mm3 (0.00-0.031); Immature Granulocyte Percent A 0.4 % (0-0.5); Lymphocytes Absolute Auto 3.25 K/mm3 (0.9-3.2); Mean Corpuscular HGB Conc 33.8 g/dl (32-36); Mean Corpuscular Hemoglobin 29.6 pg (26-34); Mean Corpuscular Volume 87.6 fl (80-100); Mean Platelet Volume 10.4 fl (7.4-10.4); Monocytes Absolute Auto 0.6 K/mm3 (0.1-0.6); Neutrophils Absolute Auto 7.2 K/mm3 (1.3-6.7); Neutrophils Percent Auto 64.5 % (45.5-73.1); Platelet Count Result 306 k/mm3 (150-375); Red Blood Count 4.52 M/mm3 (4.2-5.4); Red Cell Distribution Width 12.6 % (11.5-14.5); White Blood Count 11.2 K/mm3 (4.5-10.0)
[2022-08-13 12:29] LABS: Alanine Aminotransferase 16 U/L (6-35); Albumin Level 4.3 g/dL (3.5-5.1); Alkaline Phosphatase 117 U/L (38-126); Anion Gap 11 mmol/L (8-16); Aspartate Amino Transferase 24 U/L (14-36); Bilirubin,Total 1.5 mg/dL (0.2-1.3); Blood Urea Nitrogen 10 mg/dL (7-17); Carbon Dioxide 26 mmol/L (22-30); Chloride 99 mmol/L (98-107); Estimated Glomerular Filt Rate > 60; Glucose 136 mg/dL (65-110); Potassium 3.4 mmol/L (3.4-5.0); Sodium 136 mmol/L (137-145)
[2022-08-13 12:38] LABS: Troponin I < 0.012 ng/mL (0.000-0.034)
== END 2022-08-13 11:38 | disposition home or self-care (01) ==
LOC: ANHLAB 11:40
PROVIDERS: PCP Nurse Practitioner; Visit Provider Nurse Practitioner Adult Health
DX: R53.1 Weakness (principal); R07.9 Chest pain, unspecified
CPT/HCPCS: 36415; 80053; 84484; 85025

== ENCOUNTER 2022-08-14 14:43 | Outpatient (CLI) | payer MEDICARE, BC, SELFPAY ==
[2022-08-14 16:09] LABS: Appearance Urine Clear (Clear); Bilirubin Urine Negative (Negative); Blood Urine Negative (Negative); Color Urine Yellow (Yellow); Glucose Urine UA Negative (Negative); Ketones Urine Negative (Negative); Nitrate Urine Negative (Negative); Protein Urine Negative (Negative); Urobilinogen Urine 0.2 mg/dL (<2.0)
[2022-08-14 16:16] LABS: Add Urine Microscopic? YES
[2022-08-14 16:23] LABS: Leukocyte Esterase Ur 1+ LEU/UL (NEGATIVE); RBC Urine None seen /hpf (0-2)
[2022-08-14 16:24] LABS: Bacteria Urine None seen /hpf; Squamous Epithelial Cell Urine Rare /hpf (Few); WBC Urine 0-3 /hpf (0-3)
== END 2022-08-14 14:44 | disposition home or self-care (01) ==
PROVIDERS: PCP Nurse Practitioner; Visit Provider Nurse Practitioner Adult Health
DX: R53.1 Weakness (principal)
CPT/HCPCS: 81001

== ENCOUNTER 2022-08-21 11:30 | Observation (INO) | payer MEDICARE, BC, SELFPAY ==
[2022-08-21] VITALS (11 sets, daily range): BP systolic 129–177; BP diastolic 50–73; PULSE 52–72; RESP 12–20; TEMP 36.6–37.1; O2SAT 95–98; BMI 28.1
--- NOTE | ~2022-08-21 | XR_ITS ---
XR chest 2V 08/21/2022 11:58 Indication: Sternal chest pain Procedure: 2 view chest Comparison: Comparison to multiple prior studies sequentially, with oldest reviewed study dated 02/2022. Findings: Heart size normal. No focal air space disease, pulmonary edema, pleural effusion or suspect ed pneumothorax. There are surgical changes in the right humeral head. There is surgical changes cons istent with left clavicular osteotomy. Impression: 1: No acute cardiopulmonary disease. Reviewed, dictated and finalized at location A. GE HOUSE ATTENDANT Impression: 1: No acute cardiopulmonary disease.
--- NOTE | ~2022-08-21 | MR_ITS ---
EXAMINATION: MR brain/brain stem wo/w con DATE: 08/23/2022 12:39 INDICATION: Headache TECHNIQUE: Magnetic resonance imaging (MRI) of the brain and brainstem was performed without and with 13 mL Multihance intravenous contrast. Sequences included sagittal and axial T1-weighted SE, axial d iffusion-weighted FS SE, axial T2*-weighted GRE, axial 3D SWAN, axial T2-weighted FLAIR, and axial T2 -weighted FSE. Postcontrast axial and coronal T1-weighted SE was obtained. Apparent diffusion coeffic ient (ADC) maps were created. COMPARISON: None. FINDINGS: There are no areas of restricted diffusion to suggest acute infarction. No intracranial hemorrhage or abnormal intracranial mass lesion. Minimal nonspecific periventricular increased T2-weighted signal intensity which is within normal limits for age. There are no intraparenchymal signal abnormalities s een on the other pulse sequences. The ventricles are symmetric and normal in size. There are no abnor mal extra-axial fluid collections. Flow voids are seen in the cerebral arteries on the T2-weighted se quences consistent with their expected patency. Changes of bilateral intraocular lens replacement. S mall left mastoid effusion. There are no areas of abnormal enhancement on the post contrast images. IMPRESSION: 1. No acute intracranial process with no abnormal enhancing brain lesions. 2. Minimal nonspecific periventricular white matter T2 hyperintensity which is within normal limits f or age and likely sequela of chronic small vessel ischemic disease. Reviewed, dictated and finalized at location A. 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 No acute intracranial process with no abnormal enhancing brain lesions. 2. Minimal nonspecific periventricular white matter T2 hyperintensity which is within normal limits for age and likely sequela of chronic small vessel ischemi c disease.
--- NOTE | 2022-08-21 11:33 | ECG_ITS ---
Measurements Intervals [place] Rate: 61 P: 74 WA: 172 QRS: -32 QRSD: 97 T: 23 QT: 423 QTc: 428 Interpretive Statements SINUS RHYTHM WITH SINUS ARRHYTHMIA MARKED LEFT AXIS DEVIATION [QRS AXIS < -30] VOLTAGE CRITERIA FOR LVH [MEETS CRITERIA IN ONE OF: R(aVL), S(V1), R(V5), R(V5/V6)+S(V1)] COMPARED TO ECG 07/13/2022 08:36:50 SINUS ARRHYTHMIA NOW PRESENT Electronically Signed On 08-21-2022 15:09:10 CONFIDENTIAL SECRETARY by Mikal Betancourt M.D.
[2022-08-21 11:58] LABS: Basophils Absolute Auto 0.1 K/mm3 (0.0-0.1); Basophils Percent Auto 0.6 % (0.2-1.2); Eosinophils Absolute Auto 0.1 K/mm3 (0-0.3); Eosinophils Percent Auto 0.7 % (0-4.4); Hematocrit 39.9 % (37.0-47.0); Hemoglobin 13.3 g/dL (12.0-15.0); Immature Granulocyte Absolute 0.04 K/mm3 (0.00-0.031); Immature Granulocyte Percent A 0.4 % (0-0.5); Lymphocytes Absolute Auto 2.96 K/mm3 (0.9-3.2); Lymphocytes Percent Auto 26.7 % (18.3-44.2); Mean Corpuscular HGB Conc 33.3 g/dl (32-36); Mean Corpuscular Volume 89.9 fl (80-100); Mean Platelet Volume 10.3 fl (7.4-10.4); Monocytes Absolute Auto 0.5 K/mm3 (0.1-0.6); Monocytes Percent Auto 4.8 % (2.6-8.5); Neutrophils Absolute Auto 7.4 K/mm3 (1.3-6.7); Neutrophils Percent Auto 66.8 % (45.5-73.1); Platelet Count Result 298 k/mm3 (150-375); Red Blood Count 4.44 M/mm3 (4.2-5.4); Red Cell Distribution Width 12.6 % (11.5-14.5); White Blood Count 11.1 K/mm3 (4.5-10.0)
[2022-08-21 12:08] LABS: Alanine Aminotransferase 17 U/L (6-35); Albumin Level 4.5 g/dL (3.5-5.1); Alkaline Phosphatase 115 U/L (38-126); Anion Gap 7 mmol/L (8-16); Aspartate Amino Transferase 28 U/L (14-36); Bilirubin,Total 1.2 mg/dL (0.2-1.3); Blood Urea Nitrogen 8 mg/dL (7-17); Calcium 9.1 mg/dL (8.4-10.2); Carbon Dioxide 28 mmol/L (22-30); Chloride 99 mmol/L (98-107); Estimated Glomerular Filt Rate > 60; Glucose 149 mg/dL (65-110); Lipase 20 U/L (23-300); Potassium 3.7 mmol/L (3.4-5.0); Sodium 134 mmol/L (137-145)
[2022-08-21 12:09] LABS: Prothrombin Time 12.6 Seconds (11.1-14.7)
[2022-08-21 12:10] LABS: Partial Thromboplastin Time 28.7 SECONDS (22.3-36.8)
[2022-08-21 12:19] LABS: Troponin I < 0.012 ng/mL (0.000-0.034)
[2022-08-21] MEDS: ASPIRIN 81 MG CHEWABLE TABLET 324 MG PO (12:28)
--- NOTE | 2022-08-21 12:29 | PC.NURSE ---
pt had 81mg of aspirin this morning.
--- NOTE | 2022-08-21 14:47 | ED.CHESTPAIN ---
HPI - Chest Pain General Chief Complaint: Chest Pain Stated Complaint: chest pain with shorntess of breath Time Seen by Provider: 08/21/22 13:06 History of Present Illness HPI narrative: 77-year-old female with history of coronary artery disease, type 2 diabetes, hypertension, hyperlipidemia presenting to the emergency department for complaint of hypertension and intermittent chest pain. Patient states over the last few days she has had increasing frequency of chest pain. Patient also reports that her blood pressure has been running as high as 220 systolic. Upon arrival to emergency room patient's blood pressure is significantly less. Related Data Home Medications Medication Instructions Recorded Confirmed aspirin 81 mg tablet,delayed 81 mg PO DAILY 07/29/19 08/02/22 release (Adult Low Dose Aspirin) clopidogrel 75 mg tablet 75 mg PO DAILY 07/29/19 08/02/22 montelukast 10 mg tablet 10 mg PO HS 07/29/19 08/02/22 nitroglycerin 0.4 mg sublingual 0.4 mg sublingual Q5M PRN Chest 07/29/19 08/02/22 tablet Pain spironolactone 25 mg tablet 12.5 mg PO DAILY 11/02/19 08/02/22 ezetimibe 10 mg tablet 10 mg PO DAILY 04/09/21 08/02/22 fluticasone propionate 50 50 mcg intranasal BID 04/09/21 08/02/22 mcg/actuation nasal spray,suspension tetrahydrozoline 0.05 % eye drops 1 drp EACH EYE DAILY PRN Itching 04/09/21 08/02/22 (Eye Drops (tetrahydrozoline)) nebivolol 20 mg tablet 20 mg PO BID 06/26/21 08/02/22 linaclotide 145 mcg capsule 145 mcg PO DAILY PRN ibs 08/31/21 08/02/22 (Linzess) vitamins A,C,I-ioqw-nggtcq 14,320 1 cap PO QAM AND QPM 07/19/22 08/02/22 unit-226 mg-200 unit capsule (PreserVision AREDS) cetirizine 10 mg capsule (All Day 10 mg PO DAILY PRN 08/02/22 08/02/22 Allergy (cetirizine)) ranitidine HCl 75 mg tablet 75 mg PO BID 08/02/22 08/02/22 Allergies Allergy/AdvReac Type Severity Reaction Status Date / Time No Known Allergies Allergy Verified 08/21/22 19:20 Review of Systems Review of Systems: CONSTITUTIONAL: Denies fever, chills, or sweats. EYES: Denies visual changes, redness, or discharge. ENT: Denies rhinorrhea, congestion, sore throat, or otalgia. CARDIOVASCULAR: See HPI RESPIRATORY: Denies cough or dyspnea. GASTROINTESTINAL: Denies abdominal pain, nausea, vomiting, or diarrhea. GENITOURINARY: Denies dysuria or hematuria. SKIN: Denies rash or itching. MUSCULOSKELETAL: Denies back pain, joint pain, or myalgia. NEUROLOGIC: Denies headache, numbness, or weakness. [facility] Past Medical History Medical History Anxiety Asthma Chronic hyponatremia Chronic pain syndrome Chronic, continuous use of opioids Coronary artery disease Angioplasty of a diagonal lesion in 01/2018. Cardiac catheterization 06/2019 showed patent coronary arteries. Deep venous thrombosis Degenerative joint disease involving multiple joints Depression Gastroesophageal reflux disease Heart failure with preserved ejection fraction Hiatal hernia Hyperlipidemia Hypertension Hypothyroidism Irritable bowel syndrome Obstructive sleep apnea Noncompliant with CPAP. Peptic ulcer Peripheral neuropathy Rheumatoid arthritis Seasonal allergies Type 2 diabetes mellitus without complications Diet-controlled. Hemoglobin A1c was 5.7% on 01/24/2021. Surgical History Surgical History History of appendectomy History of arthroscopy of both shoulders History of cardiac catheterization Angioplasty of a diagonal stenosis 01/2018. Cardiac catheterization 06/2019 showed patent coronary arteries. History of carpal tunnel release History of cholecystectomy History of foot surgery History of hysterectomy History of phacoemulsification of cataract with intraocular lens implantation Family History Family History Grandparent Diabetes mellitus Father Acute myocardial infarction
[2022-08-21 15:21] LABS: Troponin I < 0.012 ng/mL (0.000-0.034)
[2022-08-21 15:36] LABS: Influenza A QL RT-PCR Negative (Negative); Influenza B QL RT-PCR Negative (Negative); RSV RNA, RT-PCR Negative (Negative); SARS-CoV-2 RNA PCR Negative
[2022-08-21] MEDS: NITROGLYCERIN OINTMENT 1 INCH DOSE TRANSDERM (16:05)
[2022-08-21] MEDS: NITROGLYCERIN SL 0.4 MG TABLET SUBLINGUAL (16:05)
--- NOTE | 2022-08-21 16:22 | PC.NURSE ---
pt requesting for nitro paste to be removed. pt states it is making her feel weird. nitro paste removed off of the chest.
[2022-08-21 18:10] LABS: Troponin I < 0.012 ng/mL (0.000-0.034)
--- NOTE | 2022-08-21 18:30 | PM.IMHP ---
H&P: HPI History of Present Illness Date/Time: 08/21/22 18:30 Chief Complaint: Chest pain and shortness of breath. Narrative: This is a 77-year-old female with multiple medical problems including coronary artery disease, heart failure with preserved ejection fraction, hypertension, hyperlipidemia, diet-controlled diabetes, asthma, hypothyroidism, sleep apnea, rheumatoid arthritis, history of DVT, and chronic pain syndrome on long-term opiate therapy who presented to the emergency department for evaluation of chest pain and shortness of breath. She reports intermittent, nonradiating ?burning? pain throughout the anterior chest for quite some time in addition to occasional shortness of breath and lightheadedness though not necessarily associated with 1 another. 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 She sees no pattern as to when this occurs. She was admitted to the hospital at the end of June with similar findings and Lexiscan stress test at that time showed no ST T wave changes and no definite reversible or fixed perfusion abnormality to suggest ischemia or infarction; EF was 70%. Blood pressures since arrival to the emergency department today have been running in the 140s to 160s systolic. Her labs including troponins have thus far been unremarkable an EKG does not show any changes when compared to prior tracings. Given her cardiac history she is being admitted for closer monitoring overnight. Review of Systems Review of Systems: Comes were reviewed and are negative except for as per HPI. [facility], [facility] Past Medical History Medical History Anxiety Asthma Chronic hyponatremia Chronic pain syndrome Chronic, continuous use of opioids Coronary artery disease Angioplasty of a diagonal lesion in 01/2018. Cardiac catheterization 06/2019 showed patent coronary arteries. Deep venous thrombosis Degenerative joint disease involving multiple joints Depression Gastroesophageal reflux disease Heart failure with preserved ejection fraction Hiatal hernia Hyperlipidemia Hypertension Hypothyroidism Irritable bowel syndrome Obstructive sleep apnea Noncompliant with CPAP. Peptic ulcer Peripheral neuropathy Rheumatoid arthritis Seasonal allergies Type 2 diabetes mellitus without complications Diet-controlled. Hemoglobin A1c was 5.7% on 01/24/2021. Surgical History Surgical History History of appendectomy History of arthroscopy of both shoulders History of cardiac catheterization Angioplasty of a diagonal stenosis 01/2018. Cardiac catheterization 06/2019 showed patent coronary arteries. History of carpal tunnel release History of cholecystectomy History of foot surgery History of hysterectomy History of phacoemulsification of cataract with intraocular lens implantation Family History Family History Grandparent Diabetes mellitus Father Acute myocardial infarction Diabetes mellitus Hypertension Mother Hypertension Diabetes mellitus Sibling Diabetes mellitus Hypertension Other Family history of cardiovascular disease Family history of malignant neoplasm of brain Social History Social History Social History: The patient lives in [place]. Her recently passed. 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 Lifelong nonsmoker. No alcohol or illicit substance abuse. She designates her daughter, Monse Cleaning, as her surrogate decision maker and she wishes to be a full code. Smoking status: Never smoker Alcohol intake: never Substance use: never Substance use type: marijuana Other substance usage details: marijuana patch PRN - last used ~1 mo ago Lack of Transportation: No Lack of Food: Never True
[2022-08-21 18:50] LABS: Glucose Point of Care 105 mg/dl (65-105)
--- NOTE | 2022-08-21 19:15 | ADMGEN ---
This patient, Aracely Spear, was admitted to IMU Room 206-02 at 1845. Patient oriented to hospital policies and general routines including ID bracelet, bed and alarms, visiting hours, pain management, procedures, bathroom and other care routines, personal items, smoking policy, room service/diet, and visiting hours. Information on how to activate the Rapid Response Team has been discussed. Patient are encouraged to report perceived risks to care and to ask questions if they do not understand what they are told or what they should do.
[2022-08-21 20:07] LABS: Glucose Point of Care 125 mg/dl (65-105)
[2022-08-21] MEDS: busPIRone HCL 10 MG TABLET PO (23:02)
[2022-08-21] MEDS: hydrALAZINE HCL 50 MG TABLET PO (23:02)
[2022-08-21] MEDS: MONTELUKAST SODIUM 10 MG TABLET PO (23:03)
[2022-08-21] MEDS: oxyCODONE/ACETAMINOPHEN (*CRX) 10-325 MG TABLET 1 TAB PO (23:03)
[2022-08-22] VITALS (14 sets, daily range): BP systolic 131–155; BP diastolic 55–67; PULSE 46–72; RESP 12–20; TEMP 36.4–36.9; O2SAT 95–98
[2022-08-22 05:15] LABS: Anion Gap 5 mmol/L (8-16); Blood Urea Nitrogen 11 mg/dL (7-17); Calcium 8.3 mg/dL (8.4-10.2); Carbon Dioxide 29 mmol/L (22-30); Chloride 98 mmol/L (98-107); Estimated Glomerular Filt Rate > 60; Glucose 137 mg/dL (65-110); Magnesium 1.6 mg/dL (1.6-2.3); Sodium 132 mmol/L (137-145)
[2022-08-22] MEDS: oxyCODONE/ACETAMINOPHEN (*CRX) 10-325 MG TABLET 1 TAB PO ×3 (06:08→18:01)
[2022-08-22] MEDS: LEVOTHYROXINE SODIUM 88 MCG TABLET PO (06:08)
[2022-08-22 08:51] LABS: Glucose Point of Care 125 mg/dl (65-105)
[2022-08-22] MEDS: SPIRONOLACTONE 12.5 MG TABLET PO (08:59)
[2022-08-22] MEDS: CLOPIDOGREL BISULFATE 75 MG TABLET PO (08:59)
[2022-08-22] MEDS: NEBIVOLOL HCL 5 MG TABLET 20 MG PO (08:59)
[2022-08-22] MEDS: OPTI-GEN TAB 1 TABLET PO ×2 (09:00→17:58)
[2022-08-22] MEDS: FAMOTIDINE 10 MG TABLET PO ×2 (09:00→17:58)
[2022-08-22] MEDS: amLODIPine BESYLATE 5 MG TABLET 10 MG PO (09:00)
[2022-08-22] MEDS: EZETIMIBE 10 MG TABLET PO (09:00)
[2022-08-22] MEDS: ASPIRIN 81 MG ENTERIC TABLET PO (09:00)
[2022-08-22] MEDS: ATORVASTATIN 40 MG TABLET PO (09:01)
[2022-08-22] MEDS: SODIUM CHLORIDE 1 GM TABLET PO ×2 (09:01→17:57)
[2022-08-22] MEDS: hydrALAZINE HCL 50 MG TABLET PO ×4 (09:02→19:57)
[2022-08-22] MEDS: FOLIC ACID 1 MG TABLET PO (09:02)
[2022-08-22] MEDS: PANTOPRAZOLE 40 MG TABLET PO ×2 (09:02→17:57)
[2022-08-22] MEDS: POTASSIUM CHLORIDE 20 MEQ TABLET 40 MEQ PO (09:04)
[2022-08-22 12:24] LABS: Glucose Point of Care 172 mg/dl (65-105)
--- NOTE | 2022-08-22 16:29 | PM.IMPN ---
Progress Note: A&P Assessment and Plan (1) Chest pain: Code(s): R07.9 - Chest pain, unspecified Status: Acute (2) Hypertension: Qualifiers: Hypertension type: unspecified Qualified Code(s): I10 - Essential (primary) hypertension Code(s): I10 - Essential (primary) hypertension Status: Chronic (3) Hyperlipidemia: Qualifiers: Hyperlipidemia type: unspecified Qualified Code(s): E78.5 - Hyperlipidemia, unspecified Code(s): E78.5 - Hyperlipidemia, unspecified Status: Chronic (4) Chronic pain syndrome: Code(s): G89.4 - Chronic pain syndrome Status: Acute (5) Chronic hyponatremia: Code(s): E87.1 - Hypo-osmolality and hyponatremia Status: Acute (6) Coronary artery disease: Qualifiers: Associated angina: without angina Coronary Disease-Associated Artery/Lesion type: [place] artery [place] vs. transplanted heart: [place] heart Qualified Code(s): I25.10 - Atherosclerotic heart disease of [place] coronary artery without angina pectoris Code(s): I25.10 - Atherosclerotic heart disease of [place] coronary artery without angina pectoris Status: Acute (7) Hypothyroidism: Code(s): E03.9 - Hypothyroidism, unspecified Status: Acute (8) Rheumatoid arthritis: Qualifiers: Laterality: bilateral Rheumatoid arthritis location: hand Rheumatoid factor presence: unspecified presence Qualified Code(s): M06.9 - Rheumatoid arthritis, unspecified Code(s): M06.9 - Rheumatoid arthritis, unspecified Status: Chronic (9) Type 2 diabetes mellitus without complications: Qualifiers: Diabetes mellitus fdc insulin use: without adjunct faculty for medical terminology use Qualified Code(s): E11.9 - Type 2 diabetes mellitus without complications Code(s): E11.9 - Type 2 diabetes mellitus without complications Status: Acute Plan patient has constellation of symptoms including headache, fatigue, chest pain, weakness and occasional dizziness. She feels is associated with her elevated blood pressure. She has had a recent stress test so do not feel that her chest pain is cardiac in nature. Chest pain could be related to elevated blood pressure. However blood pressure here is not significantly elevated to suggest this would be contributing to her symptoms. Symptoms have been present for the past few months but worse since June. She did have a brain CT 1 month ago which showed no acute findings. Chest x-ray here is clear. She has been started on her home medications. Her symptoms could be related to anxiety/ depression. she takes buspirone as needed. We will schedule this. Will have her work with PT and OT. Will continue to monitor blood pressure and adjust medications if needed. Check B12 level. TSH was normal a month ago. MRI of the brain to assess for new findings. Further recommendation as course dictates. Subjective Date/time seen: 08/22/22 16:29 Interval history: 77yo female with CAD and DM here for chest pain and elevated BP. Patient with multiple complaints that she feels all related to her elevated blood pressure. She complains of a chest heaviness when her blood pressure is elevated. She also has headaches with weakness. She is essentially homebound now that she feels he cannot go out due to having the symptoms frequently. Symptoms started in April but more prominent since June. She had a stress test at the end of June that was normal. She is followed by Cardiology and a week ago she had her Bystolic dose decreased from 40 mg to 20 mg due to bradycardia. She also had her Norvasc increased from 5 mg to 10 mg. Exam Narrative: AF 98.0 139/55 57 20 97% ra Gen - NARD Chest - CTA bilaterally, nml RR CV - RRR S1/S2. 2/6 systolic murmur USB and apex. Tele showing no significant dysrhythmias Abd - Soft, NT/ND, Positive BS Ext - No pedal edema Neuro - Alert and oriented. Nonfocal ex
[2022-08-22 16:43] LABS: Glucose Point of Care 119 mg/dl (65-105)
[2022-08-22] MEDS: FLUTICASONE PROPIONATE 0.05% NA SPR 16 GM BTL (*BKC) 2 SPRAY NASAL (17:57)
[2022-08-22] MEDS: MONTELUKAST SODIUM 10 MG TABLET PO (19:57)
[2022-08-22] MEDS: busPIRone HCL 10 MG TABLET PO (19:57)
[2022-08-22 20:57] LABS: Glucose Point of Care 121 mg/dl (65-105)
[2022-08-22] MEDS: FLUTICASONE/SALMETEROL 115-21 MCG INHALER 1 PUFF 2 PUFF INHALATION (21:05)
[2022-08-23] VITALS (11 sets, daily range): BP systolic 116–169; BP diastolic 40–83; PULSE 54–88; RESP 14–18; TEMP 36.4–36.6; O2SAT 97–98
[2022-08-23] MEDS: oxyCODONE/ACETAMINOPHEN (*CRX) 10-325 MG TABLET 1 TAB PO ×3 (04:04→17:05)
[2022-08-23 05:21] LABS: Anion Gap 6 mmol/L (8-16); Blood Urea Nitrogen 12 mg/dL (7-17); Calcium 8.5 mg/dL (8.4-10.2); Carbon Dioxide 27 mmol/L (22-30); Chloride 101 mmol/L (98-107); Estimated Glomerular Filt Rate > 60; Glucose 122 mg/dL (65-110); Magnesium 1.6 mg/dL (1.6-2.3); Potassium 3.5 mmol/L (3.4-5.0); Sodium 134 mmol/L (137-145)
[2022-08-23] MEDS: LEVOTHYROXINE SODIUM 88 MCG TABLET PO (05:45)
[2022-08-23 06:27] LABS: Folic Acid > 20.0 ng/mL (2.76->20)
[2022-08-23] MEDS: FLUTICASONE/SALMETEROL 115-21 MCG INHALER 1 PUFF 2 PUFF INHALATION (08:00)
[2022-08-23 08:55] LABS: Glucose Point of Care 188 mg/dl (65-105)
[2022-08-23] MEDS: SPIRONOLACTONE 12.5 MG TABLET PO (09:45)
[2022-08-23] MEDS: CYANOCOBALAMIN INJ 1,000 MCG/ML VIAL 1000 MCG IM (09:45)
[2022-08-23] MEDS: busPIRone HCL 10 MG TABLET PO ×2 (09:45→17:06)
[2022-08-23] MEDS: ASPIRIN 81 MG ENTERIC TABLET PO (09:46)
[2022-08-23] MEDS: EZETIMIBE 10 MG TABLET PO (09:46)
[2022-08-23] MEDS: OPTI-GEN TAB 1 TABLET PO ×2 (09:46→17:06)
[2022-08-23] MEDS: PANTOPRAZOLE 40 MG TABLET PO ×2 (09:46→17:06)
[2022-08-23] MEDS: FOLIC ACID 1 MG TABLET PO (09:46)
[2022-08-23] MEDS: CLOPIDOGREL BISULFATE 75 MG TABLET PO (09:46)
[2022-08-23] MEDS: CYANOCOBALAMIN 1,000 MCG TABLET 1000 MCG PO (09:46)
[2022-08-23] MEDS: NEBIVOLOL HCL 5 MG TABLET 20 MG PO (09:46)
[2022-08-23] MEDS: FAMOTIDINE 10 MG TABLET PO ×2 (09:46→17:06)
[2022-08-23] MEDS: hydrALAZINE HCL 50 MG TABLET PO ×2 (09:46→17:06)
[2022-08-23] MEDS: amLODIPine BESYLATE 5 MG TABLET 10 MG PO (09:46)
[2022-08-23] MEDS: SODIUM CHLORIDE 1 GM TABLET PO ×2 (09:46→17:06)
[2022-08-23] MEDS: ATORVASTATIN 40 MG TABLET PO (09:47)
[2022-08-23] MEDS: FLUTICASONE PROPIONATE 0.05% NA SPR 16 GM BTL (*BKC) 2 SPRAY NASAL (09:47)
--- NOTE | 2022-08-23 09:59 | PCPTNOTE ---
Attempted PT evaluation. Pt does not feel well enough to participate in therapy at this time. RN aware. Will Follow.
[2022-08-23 11:41] LABS: Glucose Point of Care 161 mg/dl (65-105)
[2022-08-23 12:11] LABS: Glucose Point of Care 144 mg/dl (65-105)
--- NOTE | 2022-08-23 14:43 | PM.DS ---
DS: Admitting Diagnosis Discharge Date 08/23/22 Admitting Diagnosis Chest pain DS: Discharge Diagnosis Discharge Diagnosis (1) Chest pain: Code(s): R07.9 - Chest pain, unspecified Status: Acute (2) Hypertension: Qualifiers: Hypertension type: unspecified Qualified Code(s): I10 - Essential (primary) hypertension Code(s): I10 - Essential (primary) hypertension Status: Chronic (3) Hyperlipidemia: Qualifiers: Hyperlipidemia type: unspecified Qualified Code(s): E78.5 - Hyperlipidemia, unspecified Code(s): E78.5 - Hyperlipidemia, unspecified Status: Chronic (4) Chronic pain syndrome: Code(s): G89.4 - Chronic pain syndrome Status: Acute (5) Chronic hyponatremia: Code(s): E87.1 - Hypo-osmolality and hyponatremia Status: Acute (6) Coronary artery disease: Qualifiers: Associated angina: without angina Coronary Disease-Associated Artery/Lesion type: [place] artery [place] vs. transplanted heart: [place] heart Qualified Code(s): I25.10 - Atherosclerotic heart disease of [place] coronary artery without angina pectoris Code(s): I25.10 - Atherosclerotic heart disease of [place] coronary artery without angina pectoris Status: Acute (7) Hypothyroidism: Code(s): E03.9 - Hypothyroidism, unspecified Status: Acute (8) Rheumatoid arthritis: Qualifiers: Laterality: bilateral Rheumatoid arthritis location: hand Rheumatoid factor presence: unspecified presence Qualified Code(s): M06.9 - Rheumatoid arthritis, unspecified Code(s): M06.9 - Rheumatoid arthritis, unspecified Status: Chronic (9) Type 2 diabetes mellitus without complications: Qualifiers: 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 Please see H&P for details Hospital Course: Patient presents with a constellation of symptoms including headache, fatigue, chest pain, weakness and occasional dizziness. EKG showing no change except sinus arrhythmia. Trop negative x 3. She feels her symptoms are associated with elevated blood pressure. She has had a recent normal Lexiscan stress test so felt unlikely cardiac etiology. Chest pain could be related to elevated blood pressure but BP at home runs SBP 130-170 and here 110-160. Her BP is not significantly elevated to suggest this would be contributing to her symptoms. Symptoms have been present for the past few months but worse since June. Brain CT 1 month ago showed no acute findings; MRI brain here also showing no acute findings. Chest x-ray here was clear. She was resumed on her home medications. Her symptoms felt related to anxiety/ depression. She takes buspirone as needed and this was scheduled. She worked with PT and OT. B12 level was low and this was replaced. Low B12 could be contributing to some of her symptoms. She overall did well and was able to be discharged home on 08/23/22 Status at Discharge Cognitive/behavioral status at discharge: stable Time Spent with Patient Time attestation: Total time spent providing and/or coordinating discharge services: 35 minutes Time spent: Greater than 30 minutes Exam Narrative: AF 979 116/60 64 16 98% ra Gen - NARD Chest - CTA bilaterally, nml RR CV - RRR S1/S2 Tele showing no significant dysrhythmias Abd - Soft, NT/ND, Positive BS Ext - No pedal edema Psych - anxious Skin - Warm and dry DS: Data Data Completed and Pending Labs on day of discharge: Labs from last 24 hours 08/23/22 08/23/22 08/23/22 11:59 11:38 08:45 Sodium Potassium Chloride Carbon Dioxide Anion Gap BUN
[2022-08-23 16:51] LABS: Glucose Point of Care 86 mg/dl (65-105)
== END 2022-08-23 17:55 | disposition home or self-care (01) ==
LOC: ANHED 14:21 → ANHIMU 19:24
PROVIDERS: Emergency Medicine; Physician Assistant; Admitting Provider Student in an Organized Health Care Education/Training Program; Emergency Provider Emergency Medicine; PCP Nurse Practitioner; Visit Provider Internal Medicine
DX: R07.9 Chest pain, unspecified (principal); I11.0 Hypertensive heart disease with heart failure; E78.5 Hyperlipidemia, unspecified; G89.4 Chronic pain syndrome; E87.1 Hypo-osmolality and hyponatremia; I25.10 Atherosclerotic heart disease of native coronary artery without angina pectoris; E03.9 Hypothyroidism, unspecified; M06.9 Rheumatoid arthritis, unspecified; E11.9 Type 2 diabetes mellitus without complications; F41.9 Anxiety disorder, unspecified; Z20.822 Contact with and (suspected) exposure to COVID-19; R94.31 Abnormal electrocardiogram [ECG] [EKG]; J45.909 Unspecified asthma, uncomplicated; Z98.61 Coronary angioplasty status; F32.A Depression, unspecified; K21.9 Gastro-esophageal reflux disease without esophagitis; I50.30 Unspecified diastolic (congestive) heart failure; K58.9 Irritable bowel syndrome, unspecified; G47.33 Obstructive sleep apnea (adult) (pediatric); Z99.89 Dependence on other enabling machines and devices; Z91.199 Patient's noncompliance with other medical treatment and regimen due to unspecified reason; E11.42 Type 2 diabetes mellitus with diabetic polyneuropathy; F12.90 Cannabis use, unspecified, uncomplicated; Z87.891 Personal history of nicotine dependence; Z86.718 Personal history of other venous thrombosis and embolism; Z79.51 Long term (current) use of inhaled steroids; Z79.82 Long term (current) use of aspirin; Z79.02 Long term (current) use of antithrombotics/antiplatelets; Z79.899 Other long term (current) drug therapy; Z83.3 Family history of diabetes mellitus; Z82.49 Family history of ischemic heart disease and other diseases of the circulatory system
CPT/HCPCS: 36415; 70553; 71046; 80048; 80053; 82607; 82746; 82948; 83690; 83735; 84484; 85025; 85610; 85730; 87637; 93005; 94640; 96372; 97161; 99285; A9270; A9577; G0378; J3420

== ENCOUNTER 2022-10-22 12:25 | Outpatient (CLI) | payer MEDICARE, BC, SELFPAY ==
[2022-10-22 12:57] LABS: Basophils Absolute Auto 0.1 K/mm3 (0.0-0.1); Basophils Percent Auto 0.7 % (0.2-1.2); Eosinophils Absolute Auto 0.2 K/mm3 (0-0.3); Eosinophils Percent Auto 1.4 % (0-4.4); Hematocrit 37.3 % (37.0-47.0); Hemoglobin 12.4 g/dL (12.0-15.0); Immature Granulocyte Absolute 0.03 K/mm3 (0.00-0.031); Immature Granulocyte Percent A 0.3 % (0-0.5); Lymphocytes Absolute Auto 4.06 K/mm3 (0.9-3.2); Lymphocytes Percent Auto 37.8 % (18.3-44.2); Mean Corpuscular HGB Conc 33.2 g/dl (32-36); Mean Corpuscular Hemoglobin 29.6 pg (26-34); Mean Platelet Volume 10.4 fl (7.4-10.4); Monocytes Absolute Auto 0.7 K/mm3 (0.1-0.6); Monocytes Percent Auto 6.1 % (2.6-8.5); Neutrophils Absolute Auto 5.8 K/mm3 (1.3-6.7); Neutrophils Percent Auto 53.7 % (45.5-73.1); Platelet Count Result 288 k/mm3 (150-375); Red Blood Count 4.19 M/mm3 (4.2-5.4); Red Cell Distribution Width 12.6 % (11.5-14.5); White Blood Count 10.8 K/mm3 (4.5-10.0)
[2022-10-22 14:28] LABS: Creatinine Urine 19.5 mg/dL
[2022-10-22 14:32] LABS: MALB Creatinine Ratio 42.1 mg/g (0-30); Microalbumin Urine Random 8.2 mg/L (0-16.7)
[2022-10-22 17:45] LABS: Hemoglobin A1C 5.8 % (<5.7)
[2022-10-22 18:25] LABS: Vitamin B12 > 1000.0 pg/mL (239-931)
[2022-10-22 20:22] LABS: Vitamin D 25 Hydroxy < 12.8 ng/mL
[2022-10-22 21:57] LABS: Alanine Aminotransferase 16 U/L (6-35); Alkaline Phosphatase 107 U/L (38-126); Anion Gap 9 mmol/L (8-16); Aspartate Amino Transferase 22 U/L (14-36); Bilirubin,Total 1.7 mg/dL (0.2-1.3); Blood Urea Nitrogen 14 mg/dL (7-17); Calcium 9.4 mg/dL (8.4-10.2); Carbon Dioxide 26 mmol/L (22-30); Chloride 104 mmol/L (98-107); Cholesterol 251 mg/dL (0-200); Estimated Glomerular Filt Rate > 60; Glucose 102 mg/dL (65-110); HDL Direct 57 mg/dL; Potassium 3.8 mmol/L (3.4-5.0); Sodium 139 mmol/L (137-145); Triglycerides 153 mg/dL (<150)
[2022-10-22 22:32] LABS: LDL Cholesterol Direct 141 mg/dL
== END 2022-10-22 12:26 | disposition home or self-care (01) ==
LOC: ANHLAB 12:27
PROVIDERS: PCP Nurse Practitioner; Visit Provider Nurse Practitioner
DX: I10 Essential (primary) hypertension (principal); E78.5 Hyperlipidemia, unspecified; E55.9 Vitamin D deficiency, unspecified; E11.9 Type 2 diabetes mellitus without complications; E03.9 Hypothyroidism, unspecified; E87.6 Hypokalemia; E53.8 Deficiency of other specified B group vitamins
CPT/HCPCS: 36415; 80053; 80061; 82043; 82306; 82607; 83036; 84443; 85025

== ENCOUNTER 2022-10-23 14:35 | Observation (INO) | payer MEDICARE, BC, SELFPAY ==
[2022-10-23] VITALS (20 sets, daily range): BP systolic 136–178; BP diastolic 51–90; PULSE 53–71; RESP 10–21; TEMP 36.7; O2SAT 95–100; BMI 27.7
--- NOTE | ~2022-10-23 | XR_ITS ---
EXAMINATION: XR chest 2V DATE: 10/23/2022 15:10 INDICATION: Chest pain. TECHNIQUE: Frontal and lateral views of the chest were obtained. COMPARISON: Chest 2 views 08/21/22, chest CT 11/18/2021 FINDINGS: There is a moderate-sized hiatal hernia. No pneumonia, pleural effusion, or pneumothorax. T he heart size is normal. Surgical clips in the right upper quadrant are likely from cholecystectomy. There are suture anchors in right humeral head. IMPRESSION: 1. Moderate-sized hiatal hernia. Reviewed, dictated and finalized at location A. [employer]
--- NOTE | ~2022-10-23 | CT_ITS ---
EXAMINATION: CT chest abdomen pelvis w con DATE: 10/23/2022 18:30 INDICATION: Chest and abdominal pain TECHNIQUE: Computed tomography (CT) of the chest, abdomen, and pelvis was performed with 100 mL Omnip aque-350 intravenous contrast. Automated exposure control and iterative reconstruction technique were employed. The dose-length product was 417.51 mGy-cm. COMPARISON: Chest CT dated 11/18/[address] abdomen and pelvis dated 05/02/2020 FINDINGS: CHEST CT: Mild centrilobular groundglass opacities in the perihilar right middle and infrahilar right lower lob es suspicious for aspiration or pneumonia. Unchanged 4 mm nodule in the superior segment of the right upper lobe. Left lung is clear. No pulmonary edema, pleural effusion or pneumothorax. Mild cardiomeg phyllis. Arthroscopic coronary artery calcification. Aortic valve calcification. Thoracic aorta is normal in caliber with no dissection. No pericardial effusion. No pathologically enlarged thoracic lymphade nopathy. Moderate-sized sliding-type hiatal hernia. Suture anchors at the right humeral head likely r elated to prior rotator cuff repair. ABDOMEN/PELVIS CT: Cholecystectomy clips the gallbladder fossa. Couple low-attenuation cysts in the right hepatic lobe t he larger and more caudal measuring 2.6 cm and the smaller measuring 1 cm decreased from 2.9 cm in 20 20. 9 mm splenic cyst unchanged since the more recent study from 11/18/2021. Common bile duct is dilate d to 10 mm which could be related to prior cholecystectomy but without evident tapering distally and could not exclude obstructing distal stone. No intrahepatic biliary ductal dilation. Bilateral kidney s appear normal symmetric parenchymal enhancement and no hydronephrosis. There is mild urothelial enh ancement at the right renal pelvis. Bladder is normal. The uterus is not identified and has likely be en surgically resected. No abnormal bowel wall thickening or obstruction. There is calcified atherosc lerosis of the aorta and many of the other arteries. No free intraperitoneal gas or fluid. No patholo gically enlarged abdominal or pelvic lymphadenopathy. Severe lumbar spondylosis with 6 mm anterolisth esis L4 on L5 and L5 on S1. IMPRESSION: 1. Centrilobular lung disease in the right middle and lower lobes suspicious for either aspiration or pneumonia. 2. Mild urothelial enhancement the right renal pelvis which raises some concern for ascending urinary tract infection. Correlate with urinalysis. 3. Common bile duct dilated to 10 mm which could be related to prior cholecystectomy. Abrupt terminat ion to distal common bile duct with no evident tapering and could not exclude a distal stone although there is no evident intrahepatic biliary ductal dilation. Correlate with liver function tests. Reviewed, dictated and finalized at location A. [facility] IMPRESSION: 1. Centrilobular lung disease in the right middle and lower lobes suspicious fo r either aspiration or pneumonia. 2. Mild urothelial enhancement the right renal pelvis which raises some concern for ascending urinary tract infection. Correlate with urinalysis. 3. Common bile duct dilated to 10 mm which could be related to prior cholecyste ctomy. Abrupt termination to distal common bile duct with no evident tapering a nd could not exclude a distal stone although there is no evident intrahepatic b iliary ductal dilation. Correlate with liver function tests.
--- NOTE | 2022-10-23 14:38 | ECG_ITS ---
Measurements Intervals [place] Rate: 57 P: 56 MN: 172 QRS: -29 QRSD: 86 T: -3 QT: 435 QTc: 424 Interpretive Statements SINUS BRADYCARDIA WITH SINUS ARRHYTHMIA BORDERLINE LEFT AXIS DEVIATION [QRS AXIS < -20] VOLTAGE CRITERIA FOR LVH [MEETS CRITERIA IN ONE OF: R(aVL), S(V1), R(V5), R(V5/V6)+S(V1)] COMPARED TO ECG 08/21/2022 11:37:22 SINUS BRADYCARDIA NOW PRESENT Electronically Signed On 10-23-2022 16:19:03 STEAM BOX OPERATOR by Mikal Betancourt M.D.
[2022-10-23 17:26] LABS: Basophils Absolute Auto 0.1 K/mm3 (0.0-0.1); Basophils Percent Auto 0.6 % (0.2-1.2); Eosinophils Absolute Auto 0.1 K/mm3 (0-0.3); Eosinophils Percent Auto 1.4 % (0-4.4); Hematocrit 40.8 % (37.0-47.0); Hemoglobin 13.6 g/dL (12.0-15.0); Immature Granulocyte Absolute 0.02 K/mm3 (0.00-0.031); Immature Granulocyte Percent A 0.2 % (0-0.5); Lymphocytes Absolute Auto 3.58 K/mm3 (0.9-3.2); Lymphocytes Percent Auto 35.8 % (18.3-44.2); Mean Corpuscular HGB Conc 33.3 g/dl (32-36); Mean Corpuscular Hemoglobin 29.6 pg (26-34); Mean Corpuscular Volume 88.9 fl (80-100); Mean Platelet Volume 10.1 fl (7.4-10.4); Monocytes Absolute Auto 0.6 K/mm3 (0.1-0.6); Monocytes Percent Auto 5.9 % (2.6-8.5); Neutrophils Absolute Auto 5.6 K/mm3 (1.3-6.7); Neutrophils Percent Auto 56.1 % (45.5-73.1); Platelet Count Result 290 k/mm3 (150-375); Red Blood Count 4.59 M/mm3 (4.2-5.4); Red Cell Distribution Width 12.8 % (11.5-14.5)
[2022-10-23 17:38] LABS: Potassium 3.5 mmol/L (3.4-5.0)
[2022-10-23 17:39] LABS: Alanine Aminotransferase 16 U/L (6-35); Albumin Level 4.1 g/dL (3.5-5.1); Alkaline Phosphatase 107 U/L (38-126); Anion Gap 6 mmol/L (8-16); Aspartate Amino Transferase 22 U/L (14-36); Bilirubin,Total 1.2 mg/dL (0.2-1.3); Blood Urea Nitrogen 9 mg/dL (7-17); Calcium 9.3 mg/dL (8.4-10.2); Carbon Dioxide 27 mmol/L (22-30); Chloride 105 mmol/L (98-107); Estimated Glomerular Filt Rate > 60; Glucose 108 mg/dL (65-110); Lipase 25 U/L (23-300); Sodium 138 mmol/L (137-145)
[2022-10-23 17:40] LABS: Partial Thromboplastin Time 25.5 SECONDS (22.3-36.8)
[2022-10-23 17:50] LABS: Troponin I < 0.012 ng/mL (0.000-0.034)
--- NOTE | 2022-10-23 18:43 | ED.CHESTPAIN ---
HPI - Chest Pain General Chief Complaint: Chest Pain Stated Complaint: chest pain Time Seen by Provider: 10/23/22 16:55 Source: RN notes reviewed History of Present Illness HPI narrative: Patient presents emergency department from PCPs office for chest pain. Patient states that symptoms initially began on Friday of the when she went to visit a friend who had fallen at a rehab facility states she had to walk more than normal and states that she had not felt well had been feeling short of breath that day states the next day she had had pain sensation from her lower abdomen up into her mid chest that she describes as a burning sensation she states it made her feel nauseous as well and short of breath patient states that she had minimal appetite over the next several days and is experienced that pain started more times patient states then today she had had a bowel movement at 11:00 and experienced chest pain across her bilateral lower chest that was described as a burning and a pressure she states that was a new sensation to her she had gone to her PCP and been given nitro with resolution of her pain. She denies any pain at this time she denies any fevers or chills vomiting or diarrhea. States she is followed by Dr. Pedraza for cardiology Related Data Home Medications Medication Instructions Recorded Confirmed aspirin 81 mg tablet,delayed 81 mg PO DAILY 07/29/19 10/23/22 release (Adult Low Dose Aspirin) clopidogrel 75 mg tablet 75 mg PO DAILY 07/29/19 10/23/22 nitroglycerin 0.4 mg sublingual 0.4 mg sublingual Q5M PRN Chest 07/29/19 10/23/22 tablet Pain nebivolol 20 mg tablet 20 mg PO DAILY 06/26/21 10/23/22 vitamins A,C,H-jvmy-waxxah 4,296 1 cap PO BID 07/19/22 10/23/22 mcg-226 mg-90 mg capsule (PreserVision AREDS) albuterol sulfate 90 mcg/actuation 90 mcg inhalation QID PRN 08/21/22 10/23/22 aerosol inhaler Shortness Of Breath Or Wheezing oxycodone-acetaminophen 10 mg-325 1 tablet PO Q6H PRN Pain (Scale 08/21/22 10/23/22 mg tablet Score 4-6) atorvastatin 40 mg tablet 40 mg PO DAILY 10/23/22 10/23/22 mecobalamin (vitamin B12) 1,000 1,000 mcg PO DAILY 10/23/22 10/23/22 mcg chewable tablet (B12 Active) spironolactone 25 mg tablet 25 mg PO DAILY 10/23/22 10/23/22 tetrahydrozoline 0.05 % eye drops 1 drp EACH EYE DAILY PRN Itching 10/23/22 10/23/22 Allergies Allergy/AdvReac Type Severity Reaction Status Date / Time No Known Allergies Allergy Verified 10/23/22 13:05 Review of Systems Review of Systems: Gen.: Denies fevers or chills ENT: Denies congestion Respiratory: Reports shortness of breath denies cough CV: reports chest pain GI: Reports abdominal pain and nausea, denies emesis or diarrhea Musculoskeletal: Denies back pain or muscle pain Neuro: Denies numbness, tingling, weakness or focal weakness Skin: Denies rash Except as documented, all other systems reviewed and negative [facility] Past Medical History Medical History Anxiety Asthma Chronic hyponatremia Chronic pain syndrome Chronic, continuous use of opioids Coronary artery disease Angioplasty of a diagonal lesion in 01/2018. Cardiac catheterization 06/2019 showed patent coronary arteries. Deep venous thrombosis Degenerative joint disease involving multiple joints Depression Gastroesophageal reflux disease Heart failure with preserved ejection fraction Hiatal hernia Hyperlipidemia Hypertension Hypothyroidism Irritable bowel syndrome Obstructive sleep apnea Noncompliant with CPAP. Peptic ulcer Peripheral neuropathy Rheumatoid arthritis Seasonal allergies Type 2 diabetes mellitus without complications Diet-controlled. Hemoglobin A1c was 5.7% on 01/24/2021. Surgical History Surgical History History of appendectomy History of arthroscopy of both shoulders History of cardiac catheterization Angioplasty of a diagonal stenosi
--- NOTE | 2022-10-23 20:00 | PM.IMHP ---
H&P: HPI History of Present Illness Date/Time: 10/23/22 20:00 Chief Complaint: Chest pain. Narrative: This is a 77-year-old female with multiple medical problems including coronary artery disease, heart failure with preserved ejection fraction, hypertension, hyperlipidemia, diet-controlled diabetes, asthma, hypothyroidism, sleep apnea, rheumatoid arthritis, history of DVT, chronic pain syndrome on long-term opiate therapy, GERD, and hiatal hernia who presented to the emergency department for evaluation of chest pain. The patient is known to myself and the hospitalist service from admissions in June and August 2022 for chest pain. She had a stress test done in July [address] T wave changes in noted definite reversible or fixed perfusion abnormality to suggest ischemia or infarction (EF was 70%). Since that time she has had intermittent episodes of nonradiating, burning discomfort throughout the chest which she has attributed to GERD and her hiatal hernia. This morning however she had a different type of chest pain while having a bowel movement and she describes a sudden onset of severe pain across the mid to upper chest which she describes as ?and nail being drug across my chest.? She felt nauseated and a bit short of breath with that as well. Again this is different than the burning pain she had been experiencing previously. With further questioning however she admits that her GERD has been much worse recently and over the weekend her symptoms were especially bad, to the point where she was coughing frequently throughout the night. She thinks she may have aspirated as well but cannot say for certain and she is concerned she may have pneumonia as she has been a bit more short of breath than usual with activity and she has had sweats and chills though no documented fever. She sleeps in a reclined position and tries to manage her GERD symptoms with Nexium though she admits that she takes Tums and Rolaids often, sometimes without benefit. She denies fever, sinus congestion, sore throat, productive cough, vomiting, and diarrhea. No syncope, near syncope, pleuritic pain, or palpitations. Blood pressures since arrival to the emergency department today have been running in the 140s to 160s systolic. Her labs including troponins have thus far been unremarkable an EKG does not show any changes when compared to prior tracings. CT of the chest, abdomen, and pelvis showed centrilobar disease in the right middle and lower lobe suspicious for either aspiration or pneumonia. She has since been started on ceftriaxone and azithromycin and she is being admitted to IMU for closer monitoring. At the time my evaluation she has no specific chest pain or concerns. Review of Systems Review of Systems: Twelve systems were reviewed and are negative except for as per HPI. [facility] Past Medical History Medical History Anxiety Asthma Chronic hyponatremia Chronic pain syndrome Chronic, continuous use of opioids Coronary artery disease Angioplasty of a diagonal lesion in 01/2018. Cardiac catheterization 06/2019 showed patent coronary arteries. Deep venous thrombosis Degenerative joint disease involving multiple joints Depression Gastroesophageal reflux disease Heart failure with preserved ejection fraction Hiatal hernia Hyperlipidemia Hypertension Hypothyroidism Irritable bowel syndrome Obstructive sleep apnea Noncompliant with CPAP. Peptic ulcer Peripheral neuropathy Rheumatoid arthritis Seasonal allergies Type 2 diabetes mellitus without complications Diet-controlled. Hemoglobin A1c was 5.7% on 01/24/2021. Surgical History Surgical History History of appendectomy History of arthroscopy of both shoulders History of cardiac catheterization Angioplasty of a diagonal stenosis 01/2018. Cardiac catheterization 06/2019 showed patent coron
--- NOTE | 2022-10-23 20:29 | PC.NURSE ---
Patient report given to DEMIAN Wall, all questions answered at this time.
[2022-10-23 20:54] LABS: Influenza A QL RT-PCR Negative (Negative); Influenza B QL RT-PCR Negative (Negative); SARS-CoV-2 RNA PCR Negative
[2022-10-23 21:00] LABS: Troponin I < 0.012 ng/mL (0.000-0.034)
--- NOTE | 2022-10-23 21:11 | ADMIMU ---
This patient, Aracely Spear, was admitted to IMU status, stable, and placed in IMU Room 204-01 at 2110. Patient/family oriented to hospital policies and general routines including ID bracelet, bed and alarms, visiting hours, pain management, procedures, bathroom and other care routines, personal items, smoking policy, room service/diet, and visiting hours. Valuables list has been completed. Information on how to activate the Rapid Response Team has been discussed. Patient/Family are encouraged to report perceived risks to care and to ask questions if they do not understand what they are told or what they should do.
[2022-10-23 22:25] LABS: Troponin I < 0.012 ng/mL (0.000-0.034)
[2022-10-23] MEDS: oxyCODONE/ACETAMINOPHEN (*CRX) 10-325 MG TABLET 1 TAB PO (23:56)
[2022-10-24] VITALS (15 sets, daily range): BP systolic 121–133; BP diastolic 44–63; PULSE 48–73; RESP 16–20; TEMP 36.1–36.6; O2SAT 95–98
[2022-10-24 00:05] LABS: Appearance Urine Clear (Clear); Bilirubin Urine Negative (Negative); Blood Urine Negative (Negative); Color Urine Yellow (Yellow); Glucose Urine UA Negative (Negative); Ketones Urine Negative (Negative); Leukocyte Esterase Ur Negative LEU/UL (Negative); Nitrate Urine Negative (Negative); Protein Urine Negative (Negative); Urobilinogen Urine 0.2 mg/dL (<2.0)
[2022-10-24 00:17] LABS: WBC Urine 0-3 /hpf
[2022-10-24 00:22] LABS: Add Urine Microscopic? YES
--- NOTE | 2022-10-24 03:17 | PC.NURSE ---
10/23/22 2200 Was unable to obtain IV access on patient after numerous attempts. Dr. Mora notified.
[2022-10-24] MEDS: LEVOTHYROXINE SODIUM 88 MCG TABLET PO (06:05)
[2022-10-24] MEDS: oxyCODONE/ACETAMINOPHEN (*CRX) 10-325 MG TABLET 1 TAB PO ×3 (06:06→18:32)
[2022-10-24] MEDS: FLUTICASONE/SALMETEROL 115-21 MCG INHALER 1 PUFF 2 PUFF INHALATION ×2 (08:39→20:58)
[2022-10-24] MEDS: OPTI-GEN TAB 1 TABLET PO ×2 (09:23→18:32)
[2022-10-24] MEDS: SPIRONOLACTONE 25 MG TABLET PO (09:23)
[2022-10-24] MEDS: PANTOPRAZOLE SOD SESQUIHYDRATE 20 MG TAB PO ×2 (09:23→20:01)
[2022-10-24] MEDS: SODIUM CHLORIDE 1 GM TABLET PO ×2 (09:23→18:32)
[2022-10-24] MEDS: CLOPIDOGREL BISULFATE 75 MG TABLET PO (09:25)
[2022-10-24] MEDS: ATORVASTATIN 40 MG TABLET PO (09:25)
[2022-10-24] MEDS: busPIRone HCL 10 MG TABLET PO ×2 (09:25→18:33)
[2022-10-24] MEDS: CYANOCOBALAMIN 1,000 MCG TABLET 1000 MCG PO (09:25)
[2022-10-24] MEDS: ASPIRIN 81 MG ENTERIC TABLET PO (09:27)
--- NOTE | 2022-10-24 11:59 | PM.IMPN ---
Progress Note: A&P Assessment and Plan (1) Chest pain: Code(s): R07.9 - Chest pain, unspecified Status: Acute (2) Gastroesophageal reflux disease: Qualifiers: Esophagitis presence: esophagitis presence not specified Qualified Code(s): K21.9 - Gastro-esophageal reflux disease without esophagitis Code(s): K21.9 - Gastro-esophageal reflux disease without esophagitis Status: Acute (3) Hiatal hernia: Code(s): K44.9 - Diaphragmatic hernia without obstruction or gangrene Status: Acute (4) Pneumonia: Code(s): J18.9 - Pneumonia, unspecified organism Status: Acute (5) Abnormal finding on CT scan: Code(s): R93.89 - Abnormal findings on diagnostic imaging of other specified body structures Status: Acute (6) Coronary artery disease: Qualifiers: Coronary Disease-Associated Artery/Lesion type: [place] artery [place] vs. transplanted heart: [place] heart Associated angina: without angina Qualified Code(s): I25.10 - Atherosclerotic heart disease of [place] coronary artery without angina pectoris Code(s): I25.10 - Atherosclerotic heart disease of [place] coronary artery without angina pectoris Status: Acute (7) Heart failure with preserved ejection fraction: Code(s): I50.30 - Unspecified diastolic (congestive) heart failure Status: Acute (8) Hypertension: Qualifiers: Hypertension type: unspecified Qualified Code(s): I10 - Essential (primary) hypertension Code(s): I10 - Essential (primary) hypertension Status: Chronic Plan The patient presented to the emergency department for evaluation of chest pain as per HPI. Labs, imaging, EKG, and all reports were personally reviewed. Her presentation is atypical for cardiac pain and she has had 2 negative troponins thus far. EKG was reviewed and shows no acute ST changes or significant change from prior tracings. Pain is most likely GI in etiology with her history of significant GERD (worsening over the last week) and hiatal hernia. Hemoglobin and hematocrit are stable and she has not noticed any dark stools which is reassuring. Given her cardiac history however she is being admitted to IMU for close monitoring and Cardiology was consulted by the ED physician. Continue dual anti-platelet therapy, beta-xavier, and statin. Blood pressures were reviewed and they have been running in the 150s to 160s systolic though she admits that her blood pressures are always a bit elevated when she is at the hospital due to anxiety. She is clinically compensated with regards to congestive heart failure. CT scan shows several abnormal findings including possible pneumonia or aspiration, mild urothelial enhancement of the right renal pelvis, and common bile duct dilatation to 10 mm. She had frequent coughing with her severe GERD symptoms over the weekend and believe she may very well have aspirated thus will continue with antibiotics. She has no urinary symptoms and her abdominal exam is otherwise benign. Her other chronic conditions seems stable. Home medications will be reviewed and resumed as appropriate. Subjective Date/time seen: 10/24/22 11:59 Still having some chest pain today. Exam Narrative: General: Well-developed, nontoxic-appearing female sitting up in bed. Weight: 62.3 kg. BMI: 27.7. HEENT: PERRL, EOMI. Small abrasion on the left eyelid. Sclera anicteric. Oral mucosa moist. Neck: Supple. No JVD or lymphadenopathy. Respiratory: Respirations are nonlabored and lungs are clear to auscultation. Cardiovascular: Regular rate and rhythm with S1-S2. 2-3/6 systolic murmur at the upper sternal border. Chest: No tenderness to palpation over the chest wall. Gastrointestinal: Abdomen is soft, nontender, and nondistended with positive bowel sounds. No guarding rebound tenderness. Skin: Warm and dry. No rash or lesions on limited exam. Extremities: No cyanosis, clubbing, or significant bayron
[2022-10-24 12:53] LABS: Glucose Point of Care 119 mg/dl (65-105)
--- NOTE | 2022-10-24 14:41 | PM.CNCAR ---
Assessment and Plan Assessment and plan (1) Coronary artery disease: Qualifiers: Coronary Disease-Associated Artery/Lesion type: [place] artery [place] vs. transplanted heart: [place] heart Associated angina: without angina Qualified Code(s): I25.10 - Atherosclerotic heart disease of [place] coronary artery without angina pectoris Code(s): I25.10 - Atherosclerotic heart disease of [place] coronary artery without angina pectoris Status: Acute (2) Hypertension: Qualifiers: Hypertension type: unspecified Qualified Code(s): I10 - Essential (primary) hypertension Code(s): I10 - Essential (primary) hypertension Status: Chronic (3) Obstructive sleep apnea: Code(s): G47.33 - Obstructive sleep apnea (adult) (pediatric) Status: Acute (4) Chronic pain syndrome: Code(s): G89.4 - Chronic pain syndrome Status: Acute (5) Gastroesophageal reflux disease: Qualifiers: Esophagitis presence: esophagitis presence not specified Qualified Code(s): K21.9 - Gastro-esophageal reflux disease without esophagitis Code(s): K21.9 - Gastro-esophageal reflux disease without esophagitis Status: Acute (6) Hyperlipidemia: Qualifiers: Hyperlipidemia type: unspecified Qualified Code(s): E78.5 - Hyperlipidemia, unspecified Code(s): E78.5 - Hyperlipidemia, unspecified Status: Chronic (7) Type 2 diabetes mellitus without complications: Qualifiers: Diabetes mellitus 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 EKG without ischemic changes. Recent Lexiscan that was without ischemia/infarction. Patient does have clear reproducible chest wall pain that elicits the same type of pain that she's been feeling. Recommend treatment for musculoskeletal chest wall pain. Does not need repeat stress testing at this time. Will arrange for follow-up in our office. Management of aspiration as per Hospitalist. History of Present Illness History of Present Illness Consult date/time: 10/24/22 14:41 Requesting physician: Jeromy Mitchell DO Consult reason: chest pain Reason For Visit: chest pain Narrative: We are consulted for chest pain. This is a 77-year-old female who follows with Dr. Pedraza. She has known CAD s/p balloon angioplasty to a diagonal vessel (vessel not suitable for stenting), hypertension, rheumatoid arthritis who presented to the ER for evaluation of chest pain. Patient reports a central burning type of chest pain that has been occurring for a week or so. Prior to presentation, she had an episode of chest pain while passing a bowel movement. Patient states she does not believe she was straining that hard, but had left sided chest pain that went across her chest to the right side. Comes and goes. Also reports back pain. Troponins are negative. EKG without ischemic changes. Had recent Lexiscan which was negative. Patient reports that she was coughing quite a bit over the past week, and thought she might have aspirated. CT scan of the chest does confirm aspiration. Review of Systems Review of Systems: 12-point ROS obtained. Negative, unless stated in HPI. [facility] Past Medical History Medical History Anxiety Asthma Chronic hyponatremia Chronic pain syndrome Chronic, continuous use of opioids Coronary artery disease Angioplasty of a diagonal lesion in 01/2018. Cardiac catheterization 06/2019 showed patent coronary arteries. Deep venous thrombosis Degenerative joint disease involving multiple joints Depression Gastroesophageal reflux disease Heart failure with preserved ejection fraction Hiatal hernia Hyperlipidemia Hypertension Hypothyroidism Irritable bowel syndrome Obstr
--- NOTE | 2022-10-24 14:44 | PC.NURSE ---
BP of 129/44 at 0400, BP 133/[address] Betancourt that medication was held related to low diastolic and medication refusal for afternoon medication. Advised to continue to give Nebivolol and hydralazine as ordered.
[2022-10-24] MEDS: hydrALAZINE HCL 50 MG TABLET PO ×2 (18:33→20:01)
[2022-10-25] VITALS (11 sets, daily range): BP systolic 141–172; BP diastolic 54–73; PULSE 54–74; RESP 16–20; TEMP 36.4–36.6; O2SAT 94–97
[2022-10-25] MEDS: oxyCODONE/ACETAMINOPHEN (*CRX) 10-325 MG TABLET 1 TAB PO ×3 (00:29→12:12)
[2022-10-25] MEDS: LEVOTHYROXINE SODIUM 88 MCG TABLET PO (06:29)
[2022-10-25] MEDS: amLODIPine BESYLATE 5 MG TABLET 10 MG PO (08:43)
[2022-10-25] MEDS: ASPIRIN 81 MG ENTERIC TABLET PO (08:43)
[2022-10-25] MEDS: ATORVASTATIN 40 MG TABLET PO (08:43)
[2022-10-25] MEDS: busPIRone HCL 10 MG TABLET PO (08:44)
[2022-10-25] MEDS: CLOPIDOGREL BISULFATE 75 MG TABLET PO (08:44)
[2022-10-25] MEDS: hydrALAZINE HCL 50 MG TABLET PO ×2 (08:44→12:12)
[2022-10-25] MEDS: CYANOCOBALAMIN 1,000 MCG TABLET 1000 MCG PO (08:44)
[2022-10-25] MEDS: NEBIVOLOL HCL 5 MG TABLET 20 MG PO (08:44)
[2022-10-25] MEDS: PANTOPRAZOLE SOD SESQUIHYDRATE 20 MG TAB PO (08:45)
[2022-10-25] MEDS: OPTI-GEN TAB 1 TABLET PO (08:45)
[2022-10-25] MEDS: SODIUM CHLORIDE 1 GM TABLET PO (08:46)
[2022-10-25] MEDS: SPIRONOLACTONE 25 MG TABLET PO (08:46)
[2022-10-25] MEDS: FLUTICASONE/SALMETEROL 115-21 MCG INHALER 1 PUFF 2 PUFF INHALATION (09:14)
--- NOTE | 2022-10-25 11:51 | PM.DS ---
DS: Admitting Diagnosis Discharge Date October 25, 2022 Admitting Diagnosis Chest pain DS: Discharge Diagnosis Discharge Diagnosis (1) Chest pain: Code(s): R07.9 - Chest pain, unspecified Status: Acute (2) Gastroesophageal reflux disease: Qualifiers: Esophagitis presence: esophagitis presence not specified Qualified Code(s): K21.9 - Gastro-esophageal reflux disease without esophagitis Code(s): K21.9 - Gastro-esophageal reflux disease without esophagitis Status: Acute (3) Hiatal hernia: Code(s): K44.9 - Diaphragmatic hernia without obstruction or gangrene Status: Acute (4) Pneumonia: Code(s): J18.9 - Pneumonia, unspecified organism Status: Acute (5) Abnormal finding on CT scan: Code(s): R93.89 - Abnormal findings on diagnostic imaging of other specified body structures Status: Acute (6) Coronary artery disease: Qualifiers: Coronary Disease-Associated Artery/Lesion type: [place] artery [place] vs. transplanted heart: [place] heart Associated angina: without angina Qualified Code(s): I25.10 - Atherosclerotic heart disease of [place] coronary artery without angina pectoris Code(s): I25.10 - Atherosclerotic heart disease of [place] coronary artery without angina pectoris Status: Acute (7) Heart failure with preserved ejection fraction: Code(s): I50.30 - Unspecified diastolic (congestive) heart failure Status: Acute (8) Hypertension: Qualifiers: Hypertension type: unspecified Qualified Code(s): I10 - Essential (primary) hypertension Code(s): I10 - Essential (primary) hypertension Status: Chronic DS: Summary Hospital Course Hospital Course: Admitted for chest pain, Cardiology evaluation recommends no further workup. Most of her symptoms likely related to GI issues. Will need follow-up with GI. She has a history of hiatal hernia unlikely having current like symptoms. Time Spent with Patient Time attestation: Total time spent providing and/or coordinating discharge services: Exam Narrative: General: Well-developed, nontoxic-appearing female sitting up in bed. Weight: 62.3 kg. BMI: 27.7. HEENT: PERRL, EOMI. Small abrasion on the left eyelid. Sclera anicteric. Oral mucosa moist. Neck: Supple. No JVD or lymphadenopathy. Respiratory: Respirations are nonlabored and lungs are clear to auscultation. Cardiovascular: Regular rate and rhythm with S1-S2. 2-3/6 systolic murmur at the upper sternal border. Chest: No tenderness to palpation over the chest wall. Gastrointestinal: Abdomen is soft, nontender, and nondistended with positive bowel sounds. No guarding rebound tenderness. Skin: Warm and dry. No rash or lesions on limited exam. Extremities: No cyanosis, clubbing, or significant edema. Radial and pedal pulses intact. Negative Mercedes sign bilaterally. Neurological: Alert. Cranial nerves 2-12 are grossly intact. No gross focal deficits to casual conversation. Psychiatric: Pleasant and cooperative with normal mood and affect. Judgment and insight intact. DS: Data Data Completed and Pending Labs on day of discharge: Labs from last 24 hours 10/24/22 12:51 POC Capillary Glucose 119 H Discharge Plan Discharge Attending physician on discharge: Gumaro Mendieta Consulting providers: Ramy White Discharging Clinician: Gumaro Mendieta Patient Disposition: Home, Self-Care Activity: no preference Diet: as tolerated Patient Instructions: Antibiotic Form Stand Alone Forms: General Discharge Information Follow-up/Referrals: Ramy White MD [Physician] - Kathleen Garcia NP [Primary Care Provider] - Discharge Medications: Continued PreserVision AREDS [id number] capsule 1 cap PO BID nebivolol 20 mg tablet 20 mg PO DAILY esomeprazole magnesium 20 mg capsule,delayed release(DR/EC) 20 mg PO BID Qty
== END 2022-10-25 12:36 | disposition home or self-care (01) ==
LOC: ANHED 18:48 → ANHIMU 19:52
PROVIDERS: Admitting Provider Chiropractor; Emergency Provider Emergency Medicine; PCP Nurse Practitioner; Visit Provider Chiropractor
DX: R07.9 Chest pain, unspecified (principal); K21.9 Gastro-esophageal reflux disease without esophagitis; K44.9 Diaphragmatic hernia without obstruction or gangrene; J18.9 Pneumonia, unspecified organism; R93.89 Abnormal findings on diagnostic imaging of other specified body structures; I25.10 Atherosclerotic heart disease of native coronary artery without angina pectoris; I11.0 Hypertensive heart disease with heart failure; I50.30 Unspecified diastolic (congestive) heart failure; R63.0 Anorexia; Z20.822 Contact with and (suspected) exposure to COVID-19; R06.02 Shortness of breath; R10.9 Unspecified abdominal pain; Z68.27 Body mass index [BMI] 27.0-27.9, adult; F41.9 Anxiety disorder, unspecified; J45.909 Unspecified asthma, uncomplicated; E87.1 Hypo-osmolality and hyponatremia; G89.4 Chronic pain syndrome; Z98.61 Coronary angioplasty status; M15.9 Polyosteoarthritis, unspecified; F32.A Depression, unspecified; E78.5 Hyperlipidemia, unspecified; E03.9 Hypothyroidism, unspecified; R00.1 Bradycardia, unspecified; K58.8 Other irritable bowel syndrome; E11.9 Type 2 diabetes mellitus without complications; M06.9 Rheumatoid arthritis, unspecified; Z86.718 Personal history of other venous thrombosis and embolism; Z79.51 Long term (current) use of inhaled steroids; Z79.82 Long term (current) use of aspirin; Z79.02 Long term (current) use of antithrombotics/antiplatelets; Z79.891 Long term (current) use of opiate analgesic; Z79.899 Other long term (current) drug therapy; Z83.3 Family history of diabetes mellitus; Z82.49 Family history of ischemic heart disease and other diseases of the circulatory system
CPT/HCPCS: 36415; 71046; 71260; 74177; 80053; 81001; 82948; 83690; 84484; 85025; 85610; 85730; 87636; 93005; 94640; 96365; 96375; 99285; A9270; G0378; J0456; J0696; Q9967

== ENCOUNTER 2023-03-15 09:46 | Inpatient (IN) | payer MEDICARE, BC, SELFPAY ==
[2023-03-15] VITALS (27 sets, daily range): BP systolic 93–154; BP diastolic 37–109; PULSE 70–154; RESP 11–20; TEMP 36.6–36.9; O2SAT 94–99; BMI 28.2
--- NOTE | ~2023-03-15 | US_ITS ---
EXAMINATION: US venous doppler LE RT DATE: 03/15/2023 16:19 INDICATION: Right lower limb swelling TECHNIQUE: Grayscale ultrasound images without and with compression and Doppler ultrasound images of the right lower extremity veins were obtained. COMPARISON: None. FINDINGS: The visualized portions of right common femoral vein, profunda (deep) femoral vein, femoral vein, pop liteal vein, peroneal trunk, posterior tibial veins, peroneal veins, gastrocnemius vein and greater s aphenous vein outflow are patent. IMPRESSION: 1. No deep venous thrombosis in the right lower limb. Reviewed, dictated and finalized at location A.
--- NOTE | ~2023-03-15 | XR_ITS ---
EXAMINATION: XR chest 1V portable INDICATION: Chest pain TECHNIQUE: Portable AP chest at 1015 hours COMPARISON: 10/23/2022 FINDINGS: The lungs are free of acute opacities. No pleural effusion or pneumothorax. The heart size is normal. Surgical clips in the right upper quadrant are likely from prior cholecystectomy. Suture a nchors are noted in the right humeral head. IMPRESSION: 1. No acute cardiopulmonary abnormality. Reviewed, dictated and finalized at location A.
--- NOTE | 2023-03-15 09:49 | ECG_ITS ---
Measurements Intervals [place] Rate: 137 P: SC: 0 QRS: -36 QRSD: 74 T: 88 QT: 285 QTc: 431 Interpretive Statements ATRIAL FIBRILLATION WITH RAPID VENTRICULAR RESPONSE LEFT AXIS DEVIATION LEFT VENTRICULAR HYPERTROPHY WITH ST-T CHANGE ABNORMAL ECG COMPARED TO ECG 10/23/2022 14:45:56 ATRIAL FIBRILLATION NOW PRESENT Electronically Signed On 03-15-2023 10:32:02 CDT by Jasvir Steele D.O.
[2023-03-15 10:14] LABS: Basophils Percent Auto 0.3 % (0.2-1.2); Eosinophils Percent Auto 0.3 % (0-4.4); Hematocrit 38.7 % (37.0-47.0); Hemoglobin 12.9 g/dL (12.0-15.0); Immature Granulocyte Absolute 0.07 K/mm3 (0.00-0.031); Immature Granulocyte Percent A 0.4 % (0-0.5); Lymphocytes Absolute Auto 3.09 K/mm3 (0.9-3.2); Lymphocytes Percent Auto 19.4 % (18.3-44.2); Mean Corpuscular HGB Conc 33.3 g/dl (32-36); Mean Corpuscular Hemoglobin 28.9 pg (26-34); Mean Corpuscular Volume 86.8 fl (80-100); Mean Platelet Volume 10.3 fl (7.4-10.4); Monocytes Absolute Auto 0.6 K/mm3 (0.1-0.6); Monocytes Percent Auto 3.6 % (2.6-8.5); Neutrophils Absolute Auto 12.1 K/mm3 (1.3-6.7); Platelet Count Result 311 k/mm3 (150-375); Red Blood Count 4.46 M/mm3 (4.2-5.4); Red Cell Distribution Width 13.2 % (11.5-14.5); White Blood Count 15.9 K/mm3 (4.5-10.0)
[2023-03-15] MEDS: dilTIAZem HCl INJ 25 MG/5 ML VIAL 10 MG IV PUSH (10:20)
[2023-03-15 10:23] LABS: Alanine Aminotransferase 22 U/L (6-35); Albumin Level 4.1 g/dL (3.5-5.1); Alkaline Phosphatase 107 U/L (38-126); Anion Gap 10 mmol/L (8-16); Aspartate Amino Transferase 26 U/L (14-36); Bilirubin,Total 1.2 mg/dL (0.2-1.3); Blood Urea Nitrogen 20 mg/dL (7-17); Calcium 8.9 mg/dL (8.4-10.2); Carbon Dioxide 24 mmol/L (22-30); Chloride 101 mmol/L (98-107); Estimated Glomerular Filt Rate > 60; Glucose 156 mg/dL (65-110); Lipase 35 U/L (23-300); Potassium 3.8 mmol/L (3.4-5.0); Sodium 135 mmol/L (137-145)
[2023-03-15] MEDS: dilTIAZem 100 MG/100 ML 100 MG/100 ML BAG 10 MG IV CONT (10:23)
[2023-03-15 10:26] LABS: Prothrombin Time 13.3 Seconds (11.1-14.7)
[2023-03-15 10:27] LABS: Magnesium 1.6 mg/dL (1.6-2.3); Partial Thromboplastin Time 28.8 SECONDS (22.3-36.8)
[2023-03-15 10:37] LABS: Troponin I 0.073 ng/mL (0.000-0.034)
--- NOTE | 2023-03-15 10:37 | ED.CHESTPAIN ---
HPI - Chest Pain General Chief Complaint: Chest Pain Stated Complaint: chest pain and shortness of breath - PPM in place Time Seen by Provider: 03/15/23 09:50 Source: patient, RN notes reviewed and old records reviewed Mode of arrival: ambulatory Limitations: no limitations History of Present Illness HPI narrative: This is an 78 year old female with history of DM, hypertension, CAD who presents for evaluation of chest pain. Patient has been having chest pain and shortness of breath intermittently since last Friday. She denies chest pain now. She states she has to stop when she walking because she gets fatigue. She states she has been seen in this hospital 3 times for similar episodes. Her marbleizing machine tender is Dr. Pedraza. She denies chest pain currently . She denies nausea, vomiting, fever or chills. She had right leg swelling 1 month ago but not now. Related Data Home Medications Medication Instructions Recorded Confirmed aspirin 81 mg tablet,delayed 81 mg PO DAILY 07/29/19 03/15/23 release (Adult Low Dose Aspirin) clopidogrel 75 mg tablet 75 mg PO DAILY 07/29/19 03/15/23 nitroglycerin 0.4 mg sublingual 0.4 mg sublingual Q5M PRN Chest 07/29/19 03/15/23 tablet Pain nebivolol 20 mg tablet 20 mg PO DAILY 06/26/21 03/15/23 vitamins A,C,V-[id number]-uzgfcp 4,296 1 cap PO BID 07/19/22 03/15/23 mcg-226 mg-90 mg capsule (PreserVision AREDS) albuterol sulfate 90 mcg/actuation 90 mcg inhalation QID PRN 08/21/22 03/15/23 aerosol inhaler Shortness Of Breath Or Wheezing oxycodone-acetaminophen 10 mg-325 1 tablet PO Q6H PRN Pain (Scale 08/21/22 03/15/23 mg tablet Score 4-6) atorvastatin 40 mg tablet 40 mg PO DAILY 10/23/22 03/15/23 mecobalamin (vitamin B12) 1,000 1,000 mcg PO DAILY 10/23/22 03/15/23 mcg chewable tablet (B12 Active) spironolactone 25 mg tablet 12.5 mg PO DAILY 10/23/22 03/15/23 tetrahydrozoline 0.05 % eye drops 1 drp EACH EYE DAILY PRN Itching 10/23/22 03/15/23 cetirizine 10 mg capsule 10 mg PO DAILY 03/15/23 03/15/23 ezetimibe 10 mg tablet 10 mg PO DAILY 03/15/23 03/15/23 folic acid 1 mg tablet 1 mg PO DAILY 03/15/23 03/15/23 linaclotide 145 mcg capsule 145 mcg PO DAILY PRN ibs 03/15/23 03/15/23 montelukast 10 mg tablet 10 mg PO DAILY 03/15/23 03/15/23 ranitidine HCl 75 mg tablet 75 mg PO BID 03/15/23 03/15/23 Allergies Allergy/AdvReac Type Severity Reaction Status Date / Time No Known Allergies Allergy Verified 03/15/23 10:02 Review of Systems Constitutional: Constitutional: Reports fatigue and Denies weakness Cardiovascular: Cardiovascular: Reports chest pain, Denies syncope, Denies rapid heart rate, Denies irregular heart rhythm, Reports leg edema and Reports dyspnea Respiratory: Respiratory: Denies chest congestion, Denies hemoptysis, Denies excessive phlegm production and Denies dyspnea Gastrointestinal: Gastrointestinal: Denies abdominal pain, Denies hematochezia, Denies diarrhea and Denies vomiting Genitourinary: Genitourinary: Denies hematuria and Denies dysuria Musculoskeletal: Musculoskeletal: Denies joint swelling, Denies loss of height and Denies muscle weakness Neurologic: Denies syncope, Denies focal weakness and Denies weakness PMFSH Past Medical History Medical History Anxiety Asthma Chronic hyponatremia Chronic pain syndrome Chronic, continuous use of opioids Coronary artery disease Angioplasty of a diagonal lesion in 01/2018. Cardiac catheterization 06/2019 showed patent coronary arteries. Deep venous thrombosis Degenerative joint disease involving multiple joints Depression Gastroesophageal reflux disease Heart failure with preserved ejection fraction Hiatal hernia Hyperlipidemia Hypertension Hypothyroidism Irritable bowel syndrome Obstructive sleep apnea Noncompliant with CPAP. Peptic ulcer Peripheral neuropathy Rheumatoid arthritis Seasonal allergies Type 2 diabetes mellitus without complications Diet-controlled.
[2023-03-15] MEDS: ENOXAPARIN 60 MG/0.6 ML SYRINGE SUB-Q (10:51)
--- NOTE | 2023-03-15 12:03 | ADMGEN ---
This patient, Aracely Spear, was admitted to IMU Room 203-01 at 1200. Patient/family oriented to hospital policies and general routines including ID bracelet, bed and alarms, visiting hours, pain management, procedures, bathroom and other care routines, personal items, smoking policy, room service/diet, and visiting hours. Information on how to activate the Rapid Response Team has been discussed. Patient/Family are encouraged to report perceived risks to care and to ask questions if they do not understand what they are told or what they should do.
--- NOTE | 2023-03-15 13:01 | PM.CNCAR ---
Assessment and Plan Assessment and plan (1) New onset atrial fibrillation: Code(s): I48.91 - Unspecified atrial fibrillation Status: Acute Assessment and Plan: New onset symptomatic atrial fibrillation with rapid ventricular response with associated chest pain shortness of breath, weakness fatigue. Discussed embolic stroke risk with atrial fibrillation and recommendation for systemic anticoagulation. We also discussed bleeding versus stroke risk with anticoagulation in the need to simplify her antiplatelet regimen with discontinuation Clopidogrel to reduce bleeding risk. Continue aspirin 81 mg daily for history of coronary artery disease. CHADS2 Vasc score 6 placing patient at high risk for embolic stroke without systemic anticoagulation. We discussed management strategies including rate versus rhythm control. At this time we will pursue efforts for heart rate control and of AFib persistent and/or refractory or if she remains symptomatic despite heart rate control BERTO guided cardioversion in a to restore sinus rhythm may be considered. We discussed the risks associated with anesthesia and BERTO including respiratory compromise, bradycardia and or hypotension. Will continue to adjust medical therapy for heart rate control and improvement in her symptoms. We will discontinue Bystolic 20 mg daily as this has not been effective in controlling atrial fibrillation. We will initiate metoprolol tartrate 25 mg p.o. q.8 hours 1st dose now and discontinue diltiazem infusion if heart rate less than 100 beats per minute. We may need to resume diltiazem infusion heart rate poorly controlled greater than 120 beats per minute sustained. We discussed the risk for tachycardia induced cardiomyopathy persistent uncontrolled heart rate and the need for adequate control. Continue telemetry. Discontinue enoxaparin full dose, will initiate oral systemic anticoagulation with Eliquis 5 mg twice daily to reduce risk for embolic stroke. She must be anticoagulated prior to consideration for cardioversion and indefinitely unless contraindicated. Patient is not report recent falls or injuries or syncope. Keep potassium around 4.0 magnesium around 2.0. Check TSH. May given additional 1 g magnesium sulfate. If no recent echocardiogram will obtain to assess LV size/function, valve pathology, pulmonary pressures and chamber size. (2) Elevated troponin: Code(s): R79.89 - Other specified abnormal findings of blood chemistry Status: Resolved Assessment and Plan: Mild elevation, flat most likely type 2 infarction not secondary to acute coronary syndrome and/or plaque rupture but related to demand ischemia in setting underlying CAD and atrial fibrillation with rapid ventricular response. Continue aspirin 81 mg daily, atorvastatin 40 mg at bedtime. Continue to trend troponin with serial evaluation. Repeat 12 lead ECG. (3) Chest pain: Qualifiers: Chest pain type: other chest pain Qualified Code(s): R07.89 - Other chest pain Code(s): R07.9 - Chest pain, unspecified Status: Acute Assessment and Plan: Chest pain likely secondary to demand ischemia in AFib with RVR with underlying CAD as above. Chest pain currently resolved with improved heart rate control. (4) Coronary artery disease: Qualifiers: Associated angina: without angina Coronary Disease-Associated Artery/Lesion type: [place] artery [place] vs. transplanted heart: [place] heart Qualified Code(s): I25.10 - Atherosclerotic heart disease of [place] coronary artery without angina pectoris Code(s): I25.10 - Atherosclerotic heart disease of [place] coronary artery without angina pectoris Status: Acute Assessment and Plan: History of CAD manage medically. Continue aspirin 81 mg daily. Will discontinue clopidogrel upon initiation of systemic anticoagulation to reduce bleeding risk. Continue atorvastatin 40 mg at bedtime. (5) Heart failure w
[2023-03-15 13:34] LABS: Troponin I 0.073 ng/mL (0.000-0.034)
--- NOTE | 2023-03-15 13:44 | PM.IMHP ---
H&P: HPI History of Present Illness Date/Time: 03/15/23 13:44 Chief Complaint: chest pain Narrative: 78-year-old female with history of diabetes, hypertension, hypothyroidism, coronary disease is presenting with chest pain and found to have atrial fibrillation with RVR. She denies any continued shortness of breath at this time, and is currently chest pain-free. No nausea, vomiting or diarrhea. No fevers or chills. Patient did not want to discuss anything further regarding her heart as she states that she is due for her pain pill and is in a 12/10 pain. She does not remember ever being told that she had an arrhythmia or atrial fibrillation in the past. Denies any history of blood clots. No recent travel or sick contacts. Cardiology has been consulted and she was started on a Cardizem drip in the ER. She remains in atrial fibrillation but is now rate controlled. Review of Systems Review of Systems: 12 point review of systems was assessed and was negative except as noted in the HPI [facility] Past Medical History Medical History Anxiety Asthma Chronic hyponatremia Chronic pain syndrome Chronic, continuous use of opioids Coronary artery disease Angioplasty of a diagonal lesion in 01/2018. Cardiac catheterization 06/2019 showed patent coronary arteries. Deep venous thrombosis Degenerative joint disease involving multiple joints Depression Gastroesophageal reflux disease Heart failure with preserved ejection fraction Hiatal hernia Hyperlipidemia Hypertension Hypothyroidism Irritable bowel syndrome Obstructive sleep apnea Noncompliant with CPAP. Peptic ulcer Peripheral neuropathy Rheumatoid arthritis Seasonal allergies Type 2 diabetes mellitus without complications Diet-controlled. Hemoglobin A1c was 5.7% on 01/24/2021. Surgical History Surgical History History of appendectomy History of arthroscopy of both shoulders History of cardiac catheterization Angioplasty of a diagonal stenosis 01/2018. Cardiac catheterization 06/2019 showed patent coronary arteries. History of carpal tunnel release History of cholecystectomy History of foot surgery History of hysterectomy History of phacoemulsification of cataract with intraocular lens implantation Family History Family History Grandparent Diabetes mellitus Father Acute myocardial infarction Diabetes mellitus Hypertension Mother Hypertension Diabetes mellitus Sibling Diabetes mellitus Hypertension Other Family history of cardiovascular disease Family history of malignant neoplasm of brain Social History Social History Social History: The patient lives in [place]. Her recently passed. 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 Lifelong nonsmoker. No alcohol or illicit substance abuse. She designates her daughter, Monse Cleaning, as her surrogate decision maker and she wishes to be a full code. Smoking status: Never smoker Alcohol intake: never Substance use: never Lack of Transportation: No Lack of Food: Never True Current Housing: I Have Housing Concerned About Future Housing: No Difficulty Paying Gas/Electric Bills: No Difficulty Paying for Meds: No Currently Unemployed: No Education: Associate Degree Difficulty w/ Childcare or Family Care: No Spiritual care concerns: No Agree to blood products: Yes Meds Home Medications and Allergies Home Medications Medication Instructions Recorded Confirmed Type aspirin 81 mg tablet,delayed 81 mg PO DAILY 07/29/19 03/15/23 History release (Adult Low Dose Aspirin) clopidogrel 75 mg tablet 75 mg PO DAILY 07/29/19 03/15/23 History nitroglycerin 0.4 mg sublingual 0.4 mg sublingual Q5M PRN Chest 07/29/19 03/15/23 History tablet P
[2023-03-15] MEDS: oxyCODONE/ACETAMINOPHEN (*CRX) 10-325 MG TABLET 1 TAB PO ×2 (14:33→23:13)
[2023-03-15 17:06] LABS: Magnesium 1.6 mg/dL (1.6-2.3)
[2023-03-15] MEDS: SODIUM CHLORIDE 0.9% IV 1,000 ML 125 ML XX (17:48)
[2023-03-15] MEDS: METOPROLOL TARTRATE 25 MG TABLET PO ×2 (17:48→21:46)
[2023-03-15] MEDS: OPTI-GEN TAB 1 TABLET PO (18:21)
[2023-03-15] MEDS: hydrALAZINE HCL 50 MG TABLET PO (18:22)
[2023-03-15] MEDS: SODIUM CHLORIDE 1 GM TABLET PO (18:22)
[2023-03-15] MEDS: busPIRone HCL 10 MG TABLET PO (18:22)
[2023-03-15] MEDS: FLUTICASONE/SALMETEROL 115-21 MCG INHALER 1 PUFF 2 PUFF INHALATION (20:22)
[2023-03-15] MEDS: FAMOTIDINE 20 MG TABLET PO (20:39)
[2023-03-15 21:56] LABS: Troponin I 0.127 ng/mL (0.000-0.034)
[2023-03-16] VITALS (18 sets, daily range): BP systolic 112–127; BP diastolic 58–78; PULSE 50–144; RESP 16–20; TEMP 36.4–37; O2SAT 96–99
[2023-03-16 04:36] LABS: Basophils Percent Auto 0.5 % (0.2-1.2); Eosinophils Absolute Auto 0.1 K/mm3 (0-0.3); Eosinophils Percent Auto 1.8 % (0-4.4); Hematocrit 33.9 % (37.0-47.0); Hemoglobin 11.2 g/dL (12.0-15.0); Immature Granulocyte Absolute 0.02 K/mm3 (0.00-0.031); Immature Granulocyte Percent A 0.3 % (0-0.5); Lymphocytes Absolute Auto 3.67 K/mm3 (0.9-3.2); Lymphocytes Percent Auto 48.1 % (18.3-44.2); Mean Corpuscular Hemoglobin 29.2 pg (26-34); Mean Corpuscular Volume 88.5 fl (80-100); Mean Platelet Volume 10.4 fl (7.4-10.4); Monocytes Absolute Auto 0.6 K/mm3 (0.1-0.6); Monocytes Percent Auto 7.2 % (2.6-8.5); Neutrophils Absolute Auto 3.2 K/mm3 (1.3-6.7); Neutrophils Percent Auto 42.1 % (45.5-73.1); Platelet Count Result 251 k/mm3 (150-375); Red Blood Count 3.83 M/mm3 (4.2-5.4); Red Cell Distribution Width 13.2 % (11.5-14.5); White Blood Count 7.6 K/mm3 (4.5-10.0)
[2023-03-16 04:49] LABS: Alanine Aminotransferase 15 U/L (6-35); Albumin Level 3.4 g/dL (3.5-5.1); Alkaline Phosphatase 81 U/L (38-126); Anion Gap 7 mmol/L (8-16); Aspartate Amino Transferase 22 U/L (14-36); Bilirubin,Total 1.2 mg/dL (0.2-1.3); Blood Urea Nitrogen 15 mg/dL (7-17); Calcium 8.4 mg/dL (8.4-10.2); Carbon Dioxide 26 mmol/L (22-30); Chloride 105 mmol/L (98-107); Estimated Glomerular Filt Rate > 60; Glucose 97 mg/dL (65-110); Potassium 3.5 mmol/L (3.4-5.0); Sodium 138 mmol/L (137-145)
[2023-03-16 05:16] LABS: Thyroid Stimulating Hormone 0.412 uIU/mL (0.465-4.680)
[2023-03-16] MEDS: LEVOTHYROXINE SODIUM 88 MCG TABLET PO (05:26)
[2023-03-16] MEDS: METOPROLOL TARTRATE 25 MG TABLET PO ×2 (05:26→11:19)
[2023-03-16] MEDS: oxyCODONE/ACETAMINOPHEN (*CRX) 10-325 MG TABLET 1 TAB PO ×4 (05:27→23:58)
[2023-03-16 06:56] LABS: Hemoglobin A1C 5.8 % (<5.7)
[2023-03-16] MEDS: FLUTICASONE/SALMETEROL 115-21 MCG INHALER 1 PUFF 2 PUFF INHALATION ×2 (08:11→19:53)
[2023-03-16] MEDS: hydrALAZINE HCL 50 MG TABLET PO ×4 (08:51→20:38)
[2023-03-16] MEDS: busPIRone HCL 10 MG TABLET PO ×2 (08:51→17:46)
[2023-03-16] MEDS: CLOPIDOGREL BISULFATE 75 MG TABLET PO (08:52)
[2023-03-16] MEDS: EZETIMIBE 10 MG TABLET PO (08:52)
[2023-03-16] MEDS: MONTELUKAST SODIUM 10 MG TABLET PO (08:52)
[2023-03-16] MEDS: PANTOPRAZOLE 40 MG TABLET PO (08:52)
[2023-03-16] MEDS: FAMOTIDINE 20 MG TABLET PO ×2 (08:52→20:38)
[2023-03-16] MEDS: ATORVASTATIN 40 MG TABLET PO (08:52)
[2023-03-16] MEDS: FOLIC ACID 1 MG TABLET PO (08:52)
[2023-03-16] MEDS: SODIUM CHLORIDE 1 GM TABLET PO ×2 (08:52→17:46)
[2023-03-16] MEDS: amLODIPine BESYLATE 5 MG TABLET 10 MG PO (08:52)
[2023-03-16] MEDS: OPTI-GEN TAB 1 TABLET PO ×2 (08:52→17:46)
[2023-03-16] MEDS: CYANOCOBALAMIN 1,000 MCG TABLET 1000 MCG PO (08:53)
[2023-03-16] MEDS: LORATADINE 10 MG TABLET PO (08:53)
[2023-03-16] MEDS: SPIRONOLACTONE 12.5 MG TABLET PO (08:53)
[2023-03-16] MEDS: ASPIRIN 81 MG ENTERIC TABLET PO (08:59)
--- NOTE | 2023-03-16 13:29 | PM.PNCARD ---
Progress Note: A&P Assessment and Plan (1) New onset atrial fibrillation: Code(s): I48.91 - Unspecified atrial fibrillation Status: Acute Assessment and Plan: New onset symptomatic atrial fibrillation with rapid ventricular response with associated chest pain shortness of breath, weakness fatigue. Discussed embolic stroke risk with atrial fibrillation and recommendation for systemic anticoagulation. We also discussed bleeding versus stroke risk with anticoagulation in the need to simplify her antiplatelet regimen with discontinuation Clopidogrel to reduce bleeding risk. Continue aspirin 81 mg daily for history of coronary artery disease. CHADS2 Vasc score 6 placing patient at high risk for embolic stroke without systemic anticoagulation. We discussed management strategies including rate versus rhythm control. At this time we will pursue efforts for heart rate control and of AFib persistent and/or refractory or if she remains symptomatic despite heart rate control BERTO guided cardioversion in a to restore sinus rhythm may be considered. We discussed the risks associated with anesthesia and BERTO including respiratory compromise, bradycardia and or hypotension. Keep potassium around 4.0 magnesium around 2.0. Check TSH. May given additional 1 g magnesium sulfate. If no recent echocardiogram will obtain to assess LV size/function, valve pathology, pulmonary pressures and chamber size. HR poorly controlled with AFib with RVR on oral metoprolol thus far. We discussed many options together. I recommended proceeding with BERTO guided cardioversion to restore sinus rhythm. Patient wishes to defer and focus on medical therapy. I discussed the pros and cons in this regard particular for unable to control her heart rate or she tolerates medications poorly. We to be cautious not to result in symptomatic bradycardia with aggressive medical therapy. She seems respond better with diltiazem as increase metoprolol did not help this morning with a total of 50 mg. Unfortunate, will need to resume diltiazem infusion at 5 milligrams/hour get her under control and then try to transition off to oral regimen as she tolerates. We discussed present cons of the above at length. She verbalized understanding but wishes to pursue medical management prior to proceeding with BERTO guided cardioversion. (2) Elevated troponin: Code(s): R79.89 - Other specified abnormal findings of blood chemistry Status: Resolved Assessment and Plan: Mild elevation, flat most likely type 2 infarction not secondary to acute coronary syndrome and/or plaque rupture but related to demand ischemia in setting underlying CAD and atrial fibrillation with rapid ventricular response. Continue aspirin 81 mg daily, atorvastatin 40 mg at bedtime. Continue to trend troponin with serial evaluation. Continue systemic anticoagulation. Check echocardiogram to assess LV function, wall motion abnormalities, valve pathology pulmonary pressures. (3) Chest pain: Qualifiers: Chest pain type: other chest pain Qualified Code(s): R07.89 - Other chest pain Code(s): R07.9 - Chest pain, unspecified Status: Acute Assessment and Plan: Chest pain resolved, likely secondary to demand ischemia in AFib with RVR with underlying CAD as above. Chest pain currently resolved with improved heart rate control. (4) Coronary artery disease: Qualifiers: Coronary Disease-Associated Artery/Lesion type: [place] artery [place] vs. transplanted heart: [place] heart Associated angina: without angina Qualified Code(s): I25.10 - Atherosclerotic heart disease of [place] coronary artery without angina pectoris Code(s): I25.10 - Atherosclerotic heart disease of [place] coronary artery without angina pectoris Status: Acute Assessment and Plan: History of CAD manage medically. Continue aspirin 81 mg daily. Will discontinue clopidogrel upon initiation of sys
[2023-03-16] MEDS: dilTIAZem 100 MG/100 ML 100 MG/100 ML BAG IV CONT (14:00)
--- NOTE | 2023-03-16 15:55 | WPDPN ---
Progress Note: A&P Assessment and Plan (1) Atrial fibrillation with rapid ventricular response: Code(s): I48.91 - Unspecified atrial fibrillation Status: Acute Assessment and Plan: Continue Cardizem, appreciate cardiology consultation Defer anticoagulation to their management 03/16/2023 interval history: patient presented with CP and was found to have A Fib with RVR being treated with diltiazem drip and rate is trending down and anticoagulated lovenox, patient will be seen by commercial manager and further recommendaton to follow. patient with chronic arthritic pain requesting pain medication. (2) Hypothyroidism: Code(s): E03.9 - Hypothyroidism, unspecified Status: Acute Assessment and Plan: Check TSH, continue levothyroxine (3) Gastroesophageal reflux disease: Qualifiers: Esophagitis presence: esophagitis presence not specified Qualified Code(s): K21.9 - Gastro-esophageal reflux disease without esophagitis Code(s): K21.9 - Gastro-esophageal reflux disease without esophagitis Status: Acute Assessment and Plan: Stable, continue home medications (4) Chronic hyponatremia: Code(s): E87.1 - Hypo-osmolality and hyponatremia Status: Acute Assessment and Plan: Stable, continue salt tabs (5) Chronic pain syndrome: Code(s): G89.4 - Chronic pain syndrome Status: Acute Assessment and Plan: Continue home oxycodone as scheduled Ativan as needed for anxiety (6) Obstructive sleep apnea: Code(s): G47.33 - Obstructive sleep apnea (adult) (pediatric) Status: Acute Assessment and Plan: CPAP from respiratory therapy (7) Coronary artery disease: Qualifiers: Associated angina: without angina Coronary Disease-Associated Artery/Lesion type: [place] artery [place] vs. transplanted heart: [place] heart Qualified Code(s): I25.10 - Atherosclerotic heart disease of [place] coronary artery without angina pectoris Code(s): I25.10 - Atherosclerotic heart disease of [place] coronary artery without angina pectoris Status: Acute Assessment and Plan: Continue home medications (8) Type 2 diabetes mellitus without complications: Qualifiers: Diabetes mellitus termite renewal inspector insulin use: without senior care use Qualified Code(s): E11.9 - Type 2 diabetes mellitus without complications Code(s): E11.9 - Type 2 diabetes mellitus without complications Status: Acute Assessment and Plan: Check A1c, Accu-Cheks with sliding scale insulin ordered Plan DVT prophylaxis with SCDs GI prophylaxis not indicated Code status full code Subjective Date/time seen: 03/16/23 15:55 Interval history: chest pain HPI-Narrative: 78-year-old female with history of diabetes, hypertension, hypothyroidism, coronary disease is presenting with chest pain and found to have atrial fibrillation with RVR.? She denies any continued shortness of breath at this time, and is currently chest pain-free.? No nausea, vomiting or diarrhea.? No fevers or chills.? Patient did not want to discuss anything further regarding her heart as she states that she is due for her pain pill and is in a 12/10 pain.? She does not remember ever being told that she had an arrhythmia or atrial fibrillation in the past.? Denies any history of blood clots.? No recent travel or sick contacts. 03/16/2023 interval history: patient presented with CP and was found to have A Fib with RVR being treated with diltiazem drip and rate is trending down and anticoagulated lovenox, patient will be seen by commercial manager and further recommendaton to follow. patient with chronic arthritic pain requesting pain medication. Review of Systems Review of Systems: 12 point review of systems was assessed and was negative except as noted in the HPI Exam Narrative: Patient is comfortable, NAD HEENT: eyes are clear and
[2023-03-16] MEDS: dilTIAZem HCL 30 MG TABLET PO ×2 (17:46→23:58)
[2023-03-16] MEDS: APIXABAN 5 MG TABLET PO (17:46)
[2023-03-17] VITALS (14 sets, daily range): BP systolic 105–143; BP diastolic 58–82; PULSE 54–132; RESP 18–20; TEMP 36.4–36.6; O2SAT 96–100
[2023-03-17 05:00] LABS: Basophils Percent Auto 0.4 % (0.2-1.2); Eosinophils Absolute Auto 0.2 K/mm3 (0-0.3); Eosinophils Percent Auto 1.8 % (0-4.4); Hematocrit 33.6 % (37.0-47.0); Hemoglobin 11.2 g/dL (12.0-15.0); Immature Granulocyte Absolute 0.03 K/mm3 (0.00-0.031); Immature Granulocyte Percent A 0.3 % (0-0.5); Lymphocytes Absolute Auto 3.41 K/mm3 (0.9-3.2); Lymphocytes Percent Auto 36.5 % (18.3-44.2); Mean Corpuscular HGB Conc 33.3 g/dl (32-36); Mean Corpuscular Hemoglobin 29.6 pg (26-34); Mean Corpuscular Volume 88.7 fl (80-100); Mean Platelet Volume 10.6 fl (7.4-10.4); Monocytes Absolute Auto 0.7 K/mm3 (0.1-0.6); Monocytes Percent Auto 7.1 % (2.6-8.5); Neutrophils Percent Auto 53.9 % (45.5-73.1); Platelet Count Result 262 k/mm3 (150-375); Red Blood Count 3.79 M/mm3 (4.2-5.4); Red Cell Distribution Width 13.2 % (11.5-14.5); White Blood Count 9.4 K/mm3 (4.5-10.0)
[2023-03-17 05:14] LABS: Alanine Aminotransferase 16 U/L (6-35); Albumin Level 3.4 g/dL (3.5-5.1); Alkaline Phosphatase 92 U/L (38-126); Anion Gap 6 mmol/L (8-16); Aspartate Amino Transferase 21 U/L (14-36); Blood Urea Nitrogen 13 mg/dL (7-17); Calcium 8.7 mg/dL (8.4-10.2); Carbon Dioxide 27 mmol/L (22-30); Chloride 103 mmol/L (98-107); Estimated Glomerular Filt Rate > 60; Glucose 109 mg/dL (65-110); Magnesium 1.6 mg/dL (1.6-2.3); Potassium 3.5 mmol/L (3.4-5.0); Sodium 136 mmol/L (137-145)
[2023-03-17] MEDS: oxyCODONE/ACETAMINOPHEN (*CRX) 10-325 MG TABLET 1 TAB PO ×3 (06:02→18:22)
[2023-03-17] MEDS: LEVOTHYROXINE SODIUM 88 MCG TABLET PO (06:03)
[2023-03-17] MEDS: FLUTICASONE/SALMETEROL 115-21 MCG INHALER 1 PUFF 2 PUFF INHALATION ×2 (07:29→20:03)
[2023-03-17] MEDS: amLODIPine BESYLATE 5 MG TABLET 10 MG PO (08:15)
[2023-03-17] MEDS: CYANOCOBALAMIN 1,000 MCG TABLET 1000 MCG PO (08:15)
[2023-03-17] MEDS: PANTOPRAZOLE 40 MG TABLET PO (08:16)
[2023-03-17] MEDS: FOLIC ACID 1 MG TABLET PO (08:16)
[2023-03-17] MEDS: OPTI-GEN TAB 1 TABLET PO ×2 (08:16→18:23)
[2023-03-17] MEDS: busPIRone HCL 10 MG TABLET PO ×2 (08:16→18:23)
[2023-03-17] MEDS: dilTIAZem HCL 30 MG TABLET PO ×2 (08:16→09:57)
[2023-03-17] MEDS: SODIUM CHLORIDE 1 GM TABLET PO ×2 (08:16→18:23)
[2023-03-17] MEDS: MONTELUKAST SODIUM 10 MG TABLET PO (08:16)
[2023-03-17] MEDS: FAMOTIDINE 20 MG TABLET PO ×2 (08:16→18:27)
[2023-03-17] MEDS: APIXABAN 5 MG TABLET PO ×2 (08:16→20:32)
[2023-03-17] MEDS: LORATADINE 10 MG TABLET PO (08:16)
[2023-03-17] MEDS: ATORVASTATIN 40 MG TABLET PO (08:16)
[2023-03-17] MEDS: SPIRONOLACTONE 12.5 MG TABLET PO (08:17)
[2023-03-17] MEDS: EZETIMIBE 10 MG TABLET PO (08:17)
[2023-03-17] MEDS: hydrALAZINE HCL 50 MG TABLET PO ×4 (08:17→20:32)
[2023-03-17] MEDS: ASPIRIN 81 MG ENTERIC TABLET PO (08:24)
--- NOTE | 2023-03-17 09:43 | PM.PNCARD ---
Progress Note: A&P Assessment and Plan (1) New onset atrial fibrillation: Code(s): I48.91 - Unspecified atrial fibrillation Status: Acute Assessment and Plan: New onset symptomatic atrial fibrillation with rapid ventricular response with associated chest pain shortness of breath, weakness fatigue. Plavix discontinued reduce bleeding risk, continue aspirin 81 mg daily for history of coronary artery disease. CHADS2 Vasc score 6 placing patient at high risk for embolic stroke without systemic anticoagulation. We discussed management strategies including rate versus rhythm control. HR was poorly controlled with AFib with RVR on oral metoprolol. She does well on IV diltiazem 5 milligrams/hour, however, transition to oral diltiazem still has not controlled her heart rate. Discussed once again several options. I again emphasized I strongly feel she will require BERTO guided cardioversion. She states she is reluctant and nervous and while she trusts us and is willing to do this if necessary she still wants to try medications first. I recommended proceeding with BERTO guided cardioversion to restore sinus rhythm. Patient wishes to defer and focus on medical therapy. I discussed the pros and cons in this regard particular for unable to control her heart rate or she tolerates medications poorly. We to be cautious not to result in symptomatic bradycardia with aggressive medical therapy but she is not satisfactorily controlled at this time. If she would proceed with BERTO guided cardioversion patient wishes to be sedated with Anesthesiology. Will discuss with them for scheduling. We discussed the likelihood she may require additional more aggressive antiarrhythmic therapy we will need to defer until status of left atrial appendage thrombus is known with BERTO. Patient verbalized understanding and agreed with plan of care. We also discussed she very likely will require concomitant beta-xavier therapy in addition of calcium channel xavier. 2D echo pending. Will review with recommendation to follow. (2) Elevated troponin: Code(s): R79.89 - Other specified abnormal findings of blood chemistry Status: Resolved Assessment and Plan: Mild elevation, flat most likely type 2 infarction not secondary to acute coronary syndrome and/or plaque rupture but related to demand ischemia in setting underlying CAD and atrial fibrillation with rapid ventricular response. Continue aspirin 81 mg daily, atorvastatin 40 mg at bedtime. Continue to trend troponin with serial evaluation. Continue systemic anticoagulation. Check echocardiogram to assess LV function, wall motion abnormalities, valve pathology pulmonary pressures. (3) Chest pain: Qualifiers: Chest pain type: other chest pain Qualified Code(s): R07.89 - Other chest pain Code(s): R07.9 - Chest pain, unspecified Status: Acute Assessment and Plan: Chest pain resolved, likely secondary to demand ischemia in AFib with RVR with underlying CAD as above. Chest pain currently resolved with improved heart rate control. (4) Coronary artery disease: Qualifiers: Coronary Disease-Associated Artery/Lesion type: [place] artery [place] vs. transplanted heart: [place] heart Associated angina: without angina Qualified Code(s): I25.10 - Atherosclerotic heart disease of [place] coronary artery without angina pectoris Code(s): I25.10 - Atherosclerotic heart disease of [place] coronary artery without angina pectoris Status: Acute Assessment and Plan: History of CAD manage medically. Continue aspirin 81 mg daily. Plavix discontinued in order to reduce bleeding risk with concomitant systemic anticoagulation with Eliquis 5 mg twice daily for embolic stroke risk reduction. Continue atorvastatin 40 mg at bedtime. (5) Heart failure with preserved ejection fraction: Qualifiers: Heart failure chronicity: chronic Qualified Code(s): I50
[2023-03-17] MEDS: dilTIAZem HCL 60 MG TABLET PO ×2 (12:27→18:24)
--- NOTE | 2023-03-17 13:33 | ECHO_ITS ---
Patient Info Name: Aracely Spear Age: 78 years : 1945 Gender: Female Ht: 50 in Wt: 139 lbs BSA: 1.54 m2 HR: 100 bpm BP: 143 / 82 mmHg Heart Rhythm: Atrial Fibrillation, Tachycardia Technical Quality: Fair Exam Date: 03/17/2023 8:37 AM Exam Location: [facility] Card Pulmonary Patient Status: Inpatient Admit Date: 03/16/2023 Staff Ordering Physician: Ramy White MD [employer] Machine Feeder: Rebeca Gomez RDCS Attending Provider: Jesus Alberto Mora MD Referring Physician: Christopher HASSAN; Exam Type: CA echo doppler color flow Study Info Indications - atrial fibrillation with rvr Complete two-dimensional, color flow and Doppler transthoracic echocardiogram is performed. Summary 1. Complete two-dimensional, color flow and Doppler transthoracic echocardiogram is performed. 2. Left ventricular chamber dimension is normal. 3. Left ventricular systolic function is normal, estimated at 65-70%. 4. There is no increased left ventricular wall thickness. 5. The left ventricular diastolic function is indeterminate. 6. Left atrial chamber dimension is mildly enlarged. 7. There is trace mitral valve regurgitation. 8. There is mild to moderate tricuspid valve regurgitation. 9. Mild pulmonary hypertension, estimated pulmonary arterial systolic pressure is 41 mmHg. Left Ventricle Left ventricular chamber dimension is normal. Left ventricular systolic function is normal, estimated at 65-70%. There is no increased left ventricular wall thickness. The left ventricular diastolic function is indeterminate. Right Ventricle Right ventricular chamber dimension is normal. Right ventricular systolic function is normal. Left Atria Left atrial chamber dimension is mildly enlarged. Right Atria Right atrial chamber dimension is mildly enlarged. Aortic Valve The aortic valve is probable trileaflet. There is mild aortic valve sclerosis. There is no aortic valve stenosis. There is trace aortic valve regurgitation. Pulmonic Valve The pulmonic valve is not well visualized. There is trace pulmonic regurgitation. Mitral Valve The mitral valve has thickened leaflets. There is trace mitral valve regurgitation. The mitral valve annulus is severely calcified. Tricuspid Valve The tricuspid valve leaflets are normal. There is mild to moderate tricuspid valve regurgitation. Mild pulmonary hypertension, estimated pulmonary arterial systolic pressure is 41 mmHg. Pericardium/Pleural The pericardium appears normal. There is trivial pericardial effusion. Inferior Vena Cava Normal inferior vena cava with >50% collapse upon inspiration consistent with normal right atrial pressure, 5 mmHg. Aorta The aortic root size at the sinus of Valsalva is normal. There is mild aortic atherosclerosis. Left Ventricular Outflow Tract Name Value Normal LVOT 2D LVOT Diameter 2.0 cm LVOT Doppler LVOT Peak Gradient 3 mmHg LVOT Mean Gradient 1 mmHg LVOT VTI 15 cm LVOT VTI/AV VTI Ratio 0.6 LVOT Stroke Volume 46 ml LVOT CO 5.3 l/min LVOT CI
--- NOTE | 2023-03-17 18:38 | WPDPN ---
Progress Note: A&P Assessment and Plan (1) Atrial fibrillation with rapid ventricular response: Code(s): I48.91 - Unspecified atrial fibrillation Status: Acute Assessment and Plan: Continue Cardizem, appreciate cardiology consultation Defer anticoagulation to their management 03/17/2023 interval history: patient presented with CP and was found to have A Fib with RVR being treated with diltiazem drip and rate is trending down off the drip and on diltiazem 60mg PO q6, and anticoagulated Eliquis, patient cardiac echo is showed preserve LV function, patient rate is trending down but remains in A. Fib, patient seen by photographic equipment assembler recommended cardioversion and patient is scheudled for FridayMarch 19 patient with chronic arthritic pain requesting pain medication. (2) Hypothyroidism: Code(s): E03.9 - Hypothyroidism, unspecified Status: Acute Assessment and Plan: Check TSH, continue levothyroxine (3) Gastroesophageal reflux disease: Qualifiers: Esophagitis presence: esophagitis presence not specified Qualified Code(s): K21.9 - Gastro-esophageal reflux disease without esophagitis Code(s): K21.9 - Gastro-esophageal reflux disease without esophagitis Status: Acute Assessment and Plan: Stable, continue home medications (4) Chronic hyponatremia: Code(s): E87.1 - Hypo-osmolality and hyponatremia Status: Acute Assessment and Plan: Stable, continue salt tabs (5) Chronic pain syndrome: Code(s): G89.4 - Chronic pain syndrome Status: Acute Assessment and Plan: Continue home oxycodone as scheduled Ativan as needed for anxiety (6) Obstructive sleep apnea: Code(s): G47.33 - Obstructive sleep apnea (adult) (pediatric) Status: Acute Assessment and Plan: CPAP from respiratory therapy (7) Coronary artery disease: Qualifiers: Coronary Disease-Associated Artery/Lesion type: [place] artery [place] vs. transplanted heart: [place] heart Associated angina: without angina Qualified Code(s): I25.10 - Atherosclerotic heart disease of [place] coronary artery without angina pectoris Code(s): I25.10 - Atherosclerotic heart disease of [place] coronary artery without angina pectoris Status: Acute Assessment and Plan: Continue home medications (8) Type 2 diabetes mellitus without complications: Qualifiers: Diabetes mellitus tech writer insulin use: without prison use Qualified Code(s): E11.9 - Type 2 diabetes mellitus without complications Code(s): E11.9 - Type 2 diabetes mellitus without complications Status: Acute Assessment and Plan: Check A1c, Accu-Cheks with sliding scale insulin ordered Plan DVT prophylaxis with SCDs GI prophylaxis not indicated Code status full code Subjective Date/time seen: 03/17/23 18:38 Interval history: chest pain HPI-Narrative: 78-year-old female with history of diabetes, hypertension, hypothyroidism, coronary disease is presenting with chest pain and found to have atrial fibrillation with RVR.? She denies any continued shortness of breath at this time, and is currently chest pain-free.? No nausea, vomiting or diarrhea.? No fevers or chills.? Patient did not want to discuss anything further regarding her heart as she states that she is due for her pain pill and is in a 12/10 pain.? She does not remember ever being told that she had an arrhythmia or atrial fibrillation in the past.? Denies any history of blood clots.? No recent travel or sick contacts. 03/17/2023 interval history: patient presented with CP and was found to have A Fib with RVR being treated with diltiazem drip and rate is trending down off the drip and on diltiazem 60mg PO q6, and anticoagulated Eliquis, patient cardiac echo is showed preserve LV function, patient rate is trending down but remains in A. Fib, patient seen by oliva
[2023-03-18] VITALS (15 sets, daily range): BP systolic 106–130; BP diastolic 54–70; PULSE 55–95; RESP 18–20; TEMP 36.4–37.4; O2SAT 96–100
[2023-03-18] MEDS: oxyCODONE/ACETAMINOPHEN (*CRX) 10-325 MG TABLET 1 TAB PO ×4 (00:19→18:08)
[2023-03-18] MEDS: dilTIAZem HCL 60 MG TABLET PO ×4 (00:19→18:08)
[2023-03-18 05:12] LABS: Basophils Absolute Auto 0.1 K/mm3 (0.0-0.1); Basophils Percent Auto 0.6 % (0.2-1.2); Eosinophils Absolute Auto 0.2 K/mm3 (0-0.3); Eosinophils Percent Auto 1.7 % (0-4.4); Hematocrit 35.7 % (37.0-47.0); Immature Granulocyte Absolute 0.02 K/mm3 (0.00-0.031); Immature Granulocyte Percent A 0.2 % (0-0.5); Lymphocytes Absolute Auto 3.67 K/mm3 (0.9-3.2); Lymphocytes Percent Auto 39.4 % (18.3-44.2); Mean Corpuscular HGB Conc 33.6 g/dl (32-36); Mean Corpuscular Hemoglobin 29.3 pg (26-34); Mean Corpuscular Volume 87.1 fl (80-100); Mean Platelet Volume 10.5 fl (7.4-10.4); Monocytes Absolute Auto 0.7 K/mm3 (0.1-0.6); Monocytes Percent Auto 7.1 % (2.6-8.5); Neutrophils Absolute Auto 4.7 K/mm3 (1.3-6.7); Platelet Count Result 292 k/mm3 (150-375); Red Cell Distribution Width 13.2 % (11.5-14.5); White Blood Count 9.3 K/mm3 (4.5-10.0)
[2023-03-18 05:24] LABS: Alanine Aminotransferase 19 U/L (6-35); Albumin Level 3.8 g/dL (3.5-5.1); Alkaline Phosphatase 91 U/L (38-126); Anion Gap 10 mmol/L (8-16); Aspartate Amino Transferase 24 U/L (14-36); Bilirubin,Total 1.2 mg/dL (0.2-1.3); Blood Urea Nitrogen 12 mg/dL (7-17); Calcium 9.2 mg/dL (8.4-10.2); Carbon Dioxide 27 mmol/L (22-30); Chloride 97 mmol/L (98-107); Estimated Glomerular Filt Rate > 60; Glucose 116 mg/dL (65-110); Magnesium 1.6 mg/dL (1.6-2.3); Potassium 3.6 mmol/L (3.4-5.0); Sodium 134 mmol/L (137-145)
[2023-03-18] MEDS: LEVOTHYROXINE SODIUM 88 MCG TABLET PO (06:09)
[2023-03-18] MEDS: FLUTICASONE/SALMETEROL 115-21 MCG INHALER 1 PUFF 2 PUFF INHALATION ×2 (08:17→21:01)
[2023-03-18] MEDS: busPIRone HCL 10 MG TABLET PO ×2 (08:55→18:08)
[2023-03-18] MEDS: EZETIMIBE 10 MG TABLET PO (08:55)
[2023-03-18] MEDS: APIXABAN 5 MG TABLET PO ×2 (08:55→22:21)
[2023-03-18] MEDS: PANTOPRAZOLE 40 MG TABLET PO (08:55)
[2023-03-18] MEDS: FAMOTIDINE 20 MG TABLET PO ×2 (08:55→22:22)
[2023-03-18] MEDS: MONTELUKAST SODIUM 10 MG TABLET PO (08:55)
[2023-03-18] MEDS: CYANOCOBALAMIN 1,000 MCG TABLET 1000 MCG PO (08:55)
[2023-03-18] MEDS: OPTI-GEN TAB 1 TABLET PO ×2 (08:55→18:08)
[2023-03-18] MEDS: LORATADINE 10 MG TABLET PO (08:55)
[2023-03-18] MEDS: SODIUM CHLORIDE 1 GM TABLET PO ×2 (08:55→18:08)
[2023-03-18] MEDS: FOLIC ACID 1 MG TABLET PO (08:56)
[2023-03-18] MEDS: hydrALAZINE HCL 50 MG TABLET PO ×4 (08:56→22:22)
[2023-03-18] MEDS: SPIRONOLACTONE 12.5 MG TABLET PO (08:56)
[2023-03-18] MEDS: ATORVASTATIN 40 MG TABLET PO (08:56)
[2023-03-18] MEDS: ASPIRIN 81 MG ENTERIC TABLET PO (09:06)
--- NOTE | 2023-03-18 10:29 | PM.PNCARD ---
Progress Note: A&P Assessment and Plan (1) New onset atrial fibrillation: Code(s): I48.91 - Unspecified atrial fibrillation Status: Acute Assessment and Plan: New onset symptomatic atrial fibrillation with rapid ventricular response with associated chest pain shortness of breath, weakness fatigue. Plavix discontinued reduce bleeding risk, continue aspirin 81 mg daily for history of coronary artery disease. CHADS2 Vasc score 6 placing patient at high risk for embolic stroke without systemic anticoagulation. We discussed management strategies including rate versus rhythm control. Back in sinus rhythm. Will DC short-acting diltiazem and transition to Cardizem CD 120 mg daily. Up titrate as need be. Discontinue diltiazem drip. (2) Elevated troponin: Code(s): R79.89 - Other specified abnormal findings of blood chemistry Status: Resolved Assessment and Plan: Mild elevation, flat most likely type 2 infarction not secondary to acute coronary syndrome and/or plaque rupture but related to demand ischemia in setting underlying CAD and atrial fibrillation with rapid ventricular response. Continue aspirin 81 mg daily, atorvastatin 40 mg at bedtime. Continue to trend troponin with serial evaluation. Continue systemic anticoagulation. Normal EF. Mild pulmonary hypertension (3) Chest pain: Qualifiers: Chest pain type: other chest pain Qualified Code(s): R07.89 - Other chest pain Code(s): R07.9 - Chest pain, unspecified Status: Acute Assessment and Plan: Chest pain resolved, likely secondary to demand ischemia in AFib with RVR with underlying CAD as above. No chest pain at present (4) Coronary artery disease: Qualifiers: Coronary Disease-Associated Artery/Lesion type: [place] artery [place] vs. transplanted heart: [place] heart Associated angina: without angina Qualified Code(s): I25.10 - Atherosclerotic heart disease of [place] coronary artery without angina pectoris Code(s): I25.10 - Atherosclerotic heart disease of [place] coronary artery without angina pectoris Status: Acute Assessment and Plan: History of CAD manage medically. Continue aspirin 81 mg daily. Plavix discontinued in order to reduce bleeding risk with concomitant systemic anticoagulation with Eliquis 5 mg twice daily for embolic stroke risk reduction. Continue atorvastatin 40 mg at bedtime. (5) Heart failure with preserved ejection fraction: Qualifiers: Heart failure chronicity: chronic Qualified Code(s): I50.32 - Chronic diastolic (congestive) heart failure Code(s): I50.30 - Unspecified diastolic (congestive) heart failure Status: Acute Assessment and Plan: Patient well-compensated. Negative RLE venous Doppler for DVT. Monitor volume status, daily weight, input and output. She is not decompensated heart failure on examination. We did discuss the risk for tachycardia induced cardiomyopathy with sustained tachyarrhythmia although clinically she appears relatively stable in this regard. (6) Hypertension: Qualifiers: Hypertension type: unspecified Qualified Code(s): I10 - Essential (primary) hypertension Code(s): I10 - Essential (primary) hypertension Status: Chronic Assessment and Plan: BP reasonably controlled. Amlodipine discontinued due to initiation of oral diltiazem for heart rate control. Continue hydralazine 50 mg 4 times daily. (7) Hyperlipidemia: Qualifiers: Hyperlipidemia type: unspecified Qualified Code(s): E78.5 - Hyperlipidemia, unspecified Code(s): E78.5 - Hyperlipidemia, unspecified Status: Chronic Assessment and Plan: Continue Zetia 10 mg daily, atorvastatin 40 mg at bedtime. Goal LDL less than 70. (8) Obstructive sleep apnea: Code(s): G47.33 - Obstructive sleep apnea (adult) (pediatric) Status: Acute Assessment and Plan: Ideally she s
[2023-03-18] MEDS: POTASSIUM CHLORIDE 20 MEQ ER TABLET 40 MEQ PO (12:17)
[2023-03-18] MEDS: MAGNESIUM OXIDE 400 MG TABLET PO (12:17)
--- NOTE | 2023-03-18 14:57 | WPDPN ---
Progress Note: A&P Assessment and Plan (1) Atrial fibrillation with rapid ventricular response: Code(s): I48.91 - Unspecified atrial fibrillation Status: Acute Assessment and Plan: Continue Cardizem, appreciate cardiology consultation Defer anticoagulation to their management 03/18/2023 interval history: patient presented with CP and was found to have A Fib with RVR being treated with diltiazem drip and rate is trending down off the drip and on diltiazem 60mg PO q6, and anticoagulated Eliquis, patient cardiac echo is showed preserve LV function, patient rate is trending down but remains in A. Fib, patient seen by leave manager recommended cardioversion and patient is scheudled for FridayMarch 19, today patient left distal forearm appreas red and swallen dwight IV site, possible cellulitis, will do ceftriaxone, patient with chronic arthritic pain requesting pain medication. (2) Hypothyroidism: Code(s): E03.9 - Hypothyroidism, unspecified Status: Acute Assessment and Plan: Check TSH, continue levothyroxine (3) Gastroesophageal reflux disease: Qualifiers: Esophagitis presence: esophagitis presence not specified Qualified Code(s): K21.9 - Gastro-esophageal reflux disease without esophagitis Code(s): K21.9 - Gastro-esophageal reflux disease without esophagitis Status: Acute Assessment and Plan: Stable, continue home medications (4) Chronic hyponatremia: Code(s): E87.1 - Hypo-osmolality and hyponatremia Status: Acute Assessment and Plan: Stable, continue salt tabs (5) Chronic pain syndrome: Code(s): G89.4 - Chronic pain syndrome Status: Acute Assessment and Plan: Continue home oxycodone as scheduled Ativan as needed for anxiety (6) Obstructive sleep apnea: Code(s): G47.33 - Obstructive sleep apnea (adult) (pediatric) Status: Acute Assessment and Plan: CPAP from respiratory therapy (7) Coronary artery disease: Qualifiers: Coronary Disease-Associated Artery/Lesion type: [place] artery [place] vs. transplanted heart: [place] heart Associated angina: without angina Qualified Code(s): I25.10 - Atherosclerotic heart disease of [place] coronary artery without angina pectoris Code(s): I25.10 - Atherosclerotic heart disease of [place] coronary artery without angina pectoris Status: Acute Assessment and Plan: Continue home medications (8) Type 2 diabetes mellitus without complications: Qualifiers: Diabetes mellitus senior living insulin use: without termite control representative use Qualified Code(s): E11.9 - Type 2 diabetes mellitus without complications Code(s): E11.9 - Type 2 diabetes mellitus without complications Status: Acute Assessment and Plan: Check A1c, Accu-Cheks with sliding scale insulin ordered Plan DVT prophylaxis with SCDs GI prophylaxis not indicated Code status full code Subjective Date/time seen: 03/18/23 14:57 Interval history: 03/18/2023 interval history: patient presented with CP and was found to have A Fib with RVR being treated with diltiazem drip and rate is trending down off the drip and on diltiazem 60mg PO q6, and anticoagulated Eliquis, patient cardiac echo is showed preserve LV function, patient rate is trending down but remains in A. Fib, patient seen by leave manager recommended cardioversion and patient is scheudled for FridayMarch 19, today patient left distal forearm appreas red and [place] IV site, possible cellulitis, will do ceftriaxone, patient with chronic arthritic pain requesting pain medication. Review of Systems Review of Systems: 12 point review of systems was assessed and was negative except as noted in the HPI Exam Narrative: Patient is comfortable, NAD HEENT: eyes are clear and none icteric LUNGS: Normal respiratory efforts ABD: Distended Lower e
[2023-03-18 16:14] LABS: Glucose Point of Care 144 mg/dl (65-105)
[2023-03-19] VITALS (19 sets, daily range): BP systolic 118–148; BP diastolic 53–64; PULSE 54–74; RESP 18–20; TEMP 35.6–36.7; O2SAT 94–100
[2023-03-19] MEDS: oxyCODONE/ACETAMINOPHEN (*CRX) 10-325 MG TABLET 1 TAB PO ×4 (00:02→18:15)
[2023-03-19] MEDS: dilTIAZem HCL 60 MG TABLET PO (00:02)
[2023-03-19 04:29] LABS: Basophils Absolute Auto 0.1 K/mm3 (0.0-0.1); Basophils Percent Auto 0.7 % (0.2-1.2); Eosinophils Absolute Auto 0.2 K/mm3 (0-0.3); Eosinophils Percent Auto 2.1 % (0-4.4); Hematocrit 32.2 % (37.0-47.0); Hemoglobin 10.7 g/dL (12.0-15.0); Immature Granulocyte Absolute 0.03 K/mm3 (0.00-0.031); Immature Granulocyte Percent A 0.4 % (0-0.5); Lymphocytes Absolute Auto 3.26 K/mm3 (0.9-3.2); Lymphocytes Percent Auto 38.9 % (18.3-44.2); Mean Corpuscular HGB Conc 33.2 g/dl (32-36); Mean Corpuscular Hemoglobin 29.6 pg (26-34); Mean Platelet Volume 10.5 fl (7.4-10.4); Monocytes Absolute Auto 0.6 K/mm3 (0.1-0.6); Monocytes Percent Auto 7.3 % (2.6-8.5); Neutrophils Absolute Auto 4.3 K/mm3 (1.3-6.7); Neutrophils Percent Auto 50.6 % (45.5-73.1); Platelet Count Result 256 k/mm3 (150-375); Red Blood Count 3.62 M/mm3 (4.2-5.4); Red Cell Distribution Width 13.2 % (11.5-14.5); White Blood Count 8.4 K/mm3 (4.5-10.0)
[2023-03-19 04:43] LABS: Alanine Aminotransferase 17 U/L (6-35); Albumin Level 3.6 g/dL (3.5-5.1); Alkaline Phosphatase 91 U/L (38-126); Anion Gap 6 mmol/L (8-16); Aspartate Amino Transferase 26 U/L (14-36); Bilirubin,Total 0.9 mg/dL (0.2-1.3); Blood Urea Nitrogen 13 mg/dL (7-17); Calcium 8.7 mg/dL (8.4-10.2); Carbon Dioxide 27 mmol/L (22-30); Chloride 98 mmol/L (98-107); Estimated Glomerular Filt Rate 60; Glucose 105 mg/dL (65-110); Magnesium 1.6 mg/dL (1.6-2.3); Potassium 3.9 mmol/L (3.4-5.0); Sodium 131 mmol/L (137-145)
[2023-03-19] MEDS: LEVOTHYROXINE SODIUM 88 MCG TABLET PO (06:01)
[2023-03-19] MEDS: FLUTICASONE/SALMETEROL 115-21 MCG INHALER 1 PUFF 2 PUFF INHALATION ×2 (08:49→20:59)
[2023-03-19] MEDS: EZETIMIBE 10 MG TABLET PO (08:59)
[2023-03-19] MEDS: CYANOCOBALAMIN 1,000 MCG TABLET 1000 MCG PO (08:59)
[2023-03-19] MEDS: APIXABAN 5 MG TABLET PO ×2 (08:59→21:11)
[2023-03-19] MEDS: busPIRone HCL 10 MG TABLET PO ×2 (08:59→18:15)
[2023-03-19] MEDS: FAMOTIDINE 20 MG TABLET PO ×2 (08:59→21:12)
[2023-03-19] MEDS: FOLIC ACID 1 MG TABLET PO (08:59)
[2023-03-19] MEDS: hydrALAZINE HCL 50 MG TABLET PO ×4 (08:59→21:12)
[2023-03-19] MEDS: ATORVASTATIN 40 MG TABLET PO (08:59)
[2023-03-19] MEDS: SODIUM CHLORIDE 1 GM TABLET PO ×2 (09:00→18:15)
[2023-03-19] MEDS: PANTOPRAZOLE 40 MG TABLET PO (09:00)
[2023-03-19] MEDS: SPIRONOLACTONE 12.5 MG TABLET PO (09:00)
[2023-03-19] MEDS: OPTI-GEN TAB 1 TABLET PO ×2 (09:00→18:15)
[2023-03-19] MEDS: LORATADINE 10 MG TABLET PO (09:00)
[2023-03-19] MEDS: MONTELUKAST SODIUM 10 MG TABLET PO (09:00)
[2023-03-19] MEDS: MAGNESIUM OXIDE 400 MG TABLET PO (09:00)
[2023-03-19] MEDS: ASPIRIN 81 MG ENTERIC TABLET PO (09:02)
--- NOTE | 2023-03-19 13:39 | WPDPN ---
Progress Note: A&P Assessment and Plan (1) Atrial fibrillation with rapid ventricular response: Code(s): I48.91 - Unspecified atrial fibrillation Status: Acute Assessment and Plan: Continue Cardizem, appreciate cardiology consultation Defer anticoagulation to their management 03/19/2023 interval history: patient presented with CP and was found to have A Fib with RVR being treated with diltiazem drip and rate is trending down off the drip and on diltiazem 60mg PO q6, and anticoagulated Eliquis, patient cardiac echo is showed preserve LV function, patient rate is trending down but remains in A. Fib, patient seen by clean up person recommended cardioversion and patient is scheduled for cardioversion later today, on 03/19 patient left distal forearm area red and swollen along IV site, possible cellulitis, will do ceftriaxone, patient with chronic arthritic pain requesting pain medication. (2) Hypothyroidism: Code(s): E03.9 - Hypothyroidism, unspecified Status: Acute Assessment and Plan: Check TSH, continue levothyroxine (3) Gastroesophageal reflux disease: Qualifiers: Esophagitis presence: esophagitis presence not specified Qualified Code(s): K21.9 - Gastro-esophageal reflux disease without esophagitis Code(s): K21.9 - Gastro-esophageal reflux disease without esophagitis Status: Acute Assessment and Plan: Stable, continue home medications (4) Chronic hyponatremia: Code(s): E87.1 - Hypo-osmolality and hyponatremia Status: Acute Assessment and Plan: Stable, continue salt tabs (5) Chronic pain syndrome: Code(s): G89.4 - Chronic pain syndrome Status: Acute Assessment and Plan: Continue home oxycodone as scheduled Ativan as needed for anxiety (6) Obstructive sleep apnea: Code(s): G47.33 - Obstructive sleep apnea (adult) (pediatric) Status: Acute Assessment and Plan: CPAP from respiratory therapy (7) Coronary artery disease: Qualifiers: Coronary Disease-Associated Artery/Lesion type: [place] artery [place] vs. transplanted heart: [place] heart Associated angina: without angina Qualified Code(s): I25.10 - Atherosclerotic heart disease of [place] coronary artery without angina pectoris Code(s): I25.10 - Atherosclerotic heart disease of [place] coronary artery without angina pectoris Status: Acute Assessment and Plan: Continue home medications (8) Type 2 diabetes mellitus without complications: Qualifiers: Diabetes mellitus exterminator termite insulin use: without [place] [facility] use Qualified Code(s): E11.9 - Type 2 diabetes mellitus without complications Code(s): E11.9 - Type 2 diabetes mellitus without complications Status: Acute Assessment and Plan: Check A1c, Accu-Cheks with sliding scale insulin ordered Plan DVT prophylaxis with SCDs GI prophylaxis not indicated Code status full code Subjective Date/time seen: 03/19/23 13:39 Interval history: 03/19/2023 interval history: patient presented with CP and was found to have A Fib with RVR being treated with diltiazem drip and rate is trending down off the drip and on diltiazem 60mg PO q6, and anticoagulated Eliquis, patient cardiac echo is showed preserve LV function, patient rate is trending down but remains in A. Fib, patient seen by clean up person recommended cardioversion and patient is scheduled for cardioversion later today, on 03/19 patient left distal forearm area red and swollen along IV site, possible cellulitis, will do ceftriaxone, patient with chronic arthritic pain requesting pain medication. Review of Systems Review of Systems: 12 point review of systems was assessed and was negative except as noted in the HPI Exam Narrative: Patient is comfortable, NAD HEENT: eyes are clear and none icteric LUNGS: Normal respiratory efforts ABD:
--- NOTE | 2023-03-19 15:57 | PM.PNCARD ---
Progress Note: A&P Assessment and Plan (1) New onset atrial fibrillation: Code(s): I48.91 - Unspecified atrial fibrillation Status: Acute Assessment and Plan: New onset symptomatic atrial fibrillation with rapid ventricular response with associated chest pain shortness of breath, weakness fatigue. Plavix discontinued reduce bleeding risk, continue aspirin 81 mg daily for history of coronary artery disease. CHADS2 Vasc score 6 placing patient at high risk for embolic stroke without systemic anticoagulation. We discussed management strategies including rate versus rhythm control. She reverted sinus rhythm and has maintained overnight. She was given 1st dose of Cardizem CD 120 mg daily. Tolerating thus far. Continue systemic anticoagulation with Eliquis 5 mg twice daily to reduce embolic stroke risk. Ambulate with caution to avoid risk for falls and injuries. From a cardiac perspective patient is stable for discharge home on aspirin 81 mg daily, atorvastatin 40 mg at bedtime, diltiazem 120 mg daily, Zetia 10 mg daily, spironolactone 12.5 mg daily, hydralazine 50 mg 4 times daily. Disposition per hospitalist service. PT OT to ensure stability prior to discharge. Patient also has focal cellulitis for which she is receiving IV ceftriaxone. Management per hospitalist service. (2) Elevated troponin: Code(s): R79.89 - Other specified abnormal findings of blood chemistry Status: Resolved Assessment and Plan: Mild elevation, flat most likely type 2 infarction not secondary to acute coronary syndrome and/or plaque rupture but related to demand ischemia in setting underlying CAD and atrial fibrillation with rapid ventricular response. Continue aspirin 81 mg daily, atorvastatin 40 mg at bedtime. Continue to trend troponin with serial evaluation. Continue systemic anticoagulation. Normal EF. Mild pulmonary hypertension (3) Chest pain: Qualifiers: Chest pain type: other chest pain Qualified Code(s): R07.89 - Other chest pain Code(s): R07.9 - Chest pain, unspecified Status: Acute Assessment and Plan: Chest pain resolved, likely secondary to demand ischemia in AFib with RVR with underlying CAD as above. No chest pain at present (4) Coronary artery disease: Qualifiers: Coronary Disease-Associated Artery/Lesion type: [place] artery [place] vs. transplanted heart: [place] heart Associated angina: without angina Qualified Code(s): I25.10 - Atherosclerotic heart disease of [place] coronary artery without angina pectoris Code(s): I25.10 - Atherosclerotic heart disease of [place] coronary artery without angina pectoris Status: Acute Assessment and Plan: History of CAD manage medically. Continue aspirin 81 mg daily. Plavix discontinued in order to reduce bleeding risk with concomitant systemic anticoagulation with Eliquis 5 mg twice daily for embolic stroke risk reduction. Continue atorvastatin 40 mg at bedtime. (5) Heart failure with preserved ejection fraction: Qualifiers: Heart failure chronicity: chronic Qualified Code(s): I50.32 - Chronic diastolic (congestive) heart failure Code(s): I50.30 - Unspecified diastolic (congestive) heart failure Status: Acute Assessment and Plan: Patient well-compensated. Negative RLE venous Doppler for DVT. Monitor volume status, daily weight, input and output. She is not decompensated heart failure on examination. We did discuss the risk for tachycardia induced cardiomyopathy with sustained tachyarrhythmia although clinically she appears relatively stable in this regard. (6) Hypertension: Qualifiers: Hypertension type: unspecified Qualified Code(s): I10 - Essential (primary) hypertension Code(s): I10 - Essential (primary) hypertension Status: Chronic Assessment and Plan: BP reasonably controlled. Amlodipine discontinued due to initiation of oral dil
[2023-03-20] VITALS (10 sets, daily range): BP systolic 125–137; BP diastolic 58–61; PULSE 62–95; RESP 18–20; TEMP 36.3–36.4; O2SAT 96–98
[2023-03-20] MEDS: oxyCODONE/ACETAMINOPHEN (*CRX) 10-325 MG TABLET 1 TAB PO ×3 (00:03→12:09)
[2023-03-20 04:01] LABS: Basophils Absolute Auto 0.1 K/mm3 (0.0-0.1); Basophils Percent Auto 0.7 % (0.2-1.2); Eosinophils Absolute Auto 0.2 K/mm3 (0-0.3); Eosinophils Percent Auto 1.9 % (0-4.4); Hemoglobin 11.3 g/dL (12.0-15.0); Immature Granulocyte Absolute 0.04 K/mm3 (0.00-0.031); Immature Granulocyte Percent A 0.4 % (0-0.5); Lymphocytes Absolute Auto 3.17 K/mm3 (0.9-3.2); Lymphocytes Percent Auto 34.5 % (18.3-44.2); Mean Corpuscular HGB Conc 33.2 g/dl (32-36); Mean Corpuscular Hemoglobin 29.2 pg (26-34); Mean Corpuscular Volume 87.9 fl (80-100); Mean Platelet Volume 10.5 fl (7.4-10.4); Monocytes Absolute Auto 0.6 K/mm3 (0.1-0.6); Monocytes Percent Auto 6.9 % (2.6-8.5); Neutrophils Absolute Auto 5.1 K/mm3 (1.3-6.7); Neutrophils Percent Auto 55.6 % (45.5-73.1); Platelet Count Result 269 k/mm3 (150-375); Red Blood Count 3.87 M/mm3 (4.2-5.4); Red Cell Distribution Width 13.3 % (11.5-14.5); White Blood Count 9.2 K/mm3 (4.5-10.0)
[2023-03-20 04:13] LABS: Alanine Aminotransferase 19 U/L (6-35); Albumin Level 3.9 g/dL (3.5-5.1); Alkaline Phosphatase 100 U/L (38-126); Anion Gap 8 mmol/L (8-16); Aspartate Amino Transferase 26 U/L (14-36); Bilirubin,Total 0.7 mg/dL (0.2-1.3); Blood Urea Nitrogen 13 mg/dL (7-17); Calcium 9.1 mg/dL (8.4-10.2); Carbon Dioxide 27 mmol/L (22-30); Chloride 98 mmol/L (98-107); Estimated Glomerular Filt Rate 53; Glucose 115 mg/dL (65-110); Magnesium 1.6 mg/dL (1.6-2.3); Potassium 3.9 mmol/L (3.4-5.0); Sodium 133 mmol/L (137-145)
[2023-03-20] MEDS: LINACLOTIDE 145 MCG CAPSULE PO (06:08)
[2023-03-20] MEDS: LEVOTHYROXINE SODIUM 88 MCG TABLET PO (06:08)
[2023-03-20] MEDS: FLUTICASONE/SALMETEROL 115-21 MCG INHALER 1 PUFF 2 PUFF INHALATION (07:56)
[2023-03-20] MEDS: MONTELUKAST SODIUM 10 MG TABLET PO (09:31)
[2023-03-20] MEDS: hydrALAZINE HCL 50 MG TABLET PO ×2 (09:31→12:09)
[2023-03-20] MEDS: PANTOPRAZOLE 40 MG TABLET PO (09:31)
[2023-03-20] MEDS: EZETIMIBE 10 MG TABLET PO (09:31)
[2023-03-20] MEDS: ATORVASTATIN 40 MG TABLET PO (09:31)
[2023-03-20] MEDS: FOLIC ACID 1 MG TABLET PO (09:32)
[2023-03-20] MEDS: FAMOTIDINE 20 MG TABLET PO (09:32)
[2023-03-20] MEDS: CYANOCOBALAMIN 1,000 MCG TABLET 1000 MCG PO (09:32)
[2023-03-20] MEDS: OPTI-GEN TAB 1 TABLET PO (09:32)
[2023-03-20] MEDS: LORATADINE 10 MG TABLET PO (09:32)
[2023-03-20] MEDS: APIXABAN 5 MG TABLET PO (09:32)
[2023-03-20] MEDS: busPIRone HCL 10 MG TABLET PO (09:32)
[2023-03-20] MEDS: SODIUM CHLORIDE 1 GM TABLET PO (09:32)
[2023-03-20] MEDS: MAGNESIUM OXIDE 400 MG TABLET PO (09:33)
[2023-03-20] MEDS: SPIRONOLACTONE 12.5 MG TABLET PO (09:33)
[2023-03-20] MEDS: ASPIRIN 81 MG ENTERIC TABLET PO (09:34)
--- NOTE | 2023-03-20 10:44 | PM.DS ---
DS: Admitting Diagnosis Discharge Date 03/20/2023 Admitting Diagnosis Chest pain DS: Discharge Diagnosis Discharge Diagnosis (1) Atrial fibrillation with rapid ventricular response: Code(s): I48.91 - Unspecified atrial fibrillation Status: Acute Assessment and Plan: Continue Cardizem, appreciate cardiology consultation Defer anticoagulation to their management 03/19/2023 interval history: patient presented with CP and was found to have A Fib with RVR being treated with diltiazem drip and rate is trending down off the drip and on diltiazem 60mg PO q6, and anticoagulated Eliquis, patient cardiac echo is showed preserve LV function, patient rate is trending down but remains in A. Fib, patient seen by food service cashier recommended cardioversion and patient is scheduled for cardioversion later today, on 03/19 patient left distal forearm area red and swollen along IV site, possible cellulitis, will do ceftriaxone, patient with chronic arthritic pain requesting pain medication. (2) Hypothyroidism: Code(s): E03.9 - Hypothyroidism, unspecified Status: Acute Assessment and Plan: Check TSH, continue levothyroxine (3) Gastroesophageal reflux disease: Qualifiers: Esophagitis presence: esophagitis presence not specified Qualified Code(s): K21.9 - Gastro-esophageal reflux disease without esophagitis Code(s): K21.9 - Gastro-esophageal reflux disease without esophagitis Status: Acute Assessment and Plan: Stable, continue home medications (4) Chronic hyponatremia: Code(s): E87.1 - Hypo-osmolality and hyponatremia Status: Acute Assessment and Plan: Stable, continue salt tabs (5) Chronic pain syndrome: Code(s): G89.4 - Chronic pain syndrome Status: Acute Assessment and Plan: Continue home oxycodone as scheduled Ativan as needed for anxiety (6) Obstructive sleep apnea: Code(s): G47.33 - Obstructive sleep apnea (adult) (pediatric) Status: Acute Assessment and Plan: CPAP from respiratory therapy (7) Coronary artery disease: Qualifiers: Coronary Disease-Associated Artery/Lesion type: [place] artery [place] vs. transplanted heart: [place] heart Associated angina: without angina Qualified Code(s): I25.10 - Atherosclerotic heart disease of [place] coronary artery without angina pectoris Code(s): I25.10 - Atherosclerotic heart disease of [place] coronary artery without angina pectoris Status: Acute Assessment and Plan: Continue home medications (8) Type 2 diabetes mellitus without complications: Qualifiers: Diabetes mellitus senior living insulin use: without senior living use Qualified Code(s): E11.9 - Type 2 diabetes mellitus without complications Code(s): E11.9 - Type 2 diabetes mellitus without complications Status: Acute Assessment and Plan: Check A1c, Accu-Cheks with sliding scale insulin ordered Plan DVT prophylaxis with SCDs GI prophylaxis not indicated Code status full code DS: Summary Hospital Course Reason for hospitalization: chest pain Narrative: 78-year-old female with history of diabetes, hypertension, hypothyroidism, coronary disease is presenting with chest pain and found to have atrial fibrillation with RVR.? She denies any continued shortness of breath at this time, and is currently chest pain-free.? No nausea, vomiting or diarrhea.? No fevers or chills.? Patient did not want to discuss anything further regarding her heart as she states that she is due for her pain pill and is in a 12/10 pain.? She does not remember ever being told that she had an arrhythmia or atrial fibrillation in the past.? Denies any history of blood clots.? No recent travel or sick contacts. Cardiology has been consulted and she was started on a Cardizem drip in the ER.? She remains in atrial fibrillation but is now rate controlled.? Hospi
== END 2023-03-20 14:14 | disposition home or self-care (01) | DRG 281 ==
LOC: ANHED 11:10 → ANHIMU 11:31
PROVIDERS: Internal Medicine; Admitting Provider Student in an Organized Health Care Education/Training Program; Emergency Provider General Practice; PCP Family Medicine; Visit Provider Family Medicine
DX: I48.91 Unspecified atrial fibrillation (principal); I21.A1 Myocardial infarction type 2; E87.1 Hypo-osmolality and hyponatremia; I50.32 Chronic diastolic (congestive) heart failure; L03.114 Cellulitis of left upper limb; T80.29XA Infection following other infusion, transfusion and therapeutic injection, initial encounter; E11.9 Type 2 diabetes mellitus without complications; I25.10 Atherosclerotic heart disease of native coronary artery without angina pectoris; I11.0 Hypertensive heart disease with heart failure; J45.909 Unspecified asthma, uncomplicated; E78.5 Hyperlipidemia, unspecified; E11.42 Type 2 diabetes mellitus with diabetic polyneuropathy; E03.9 Hypothyroidism, unspecified; K58.9 Irritable bowel syndrome, unspecified; K44.9 Diaphragmatic hernia without obstruction or gangrene; K21.9 Gastro-esophageal reflux disease without esophagitis; R77.8 Other specified abnormalities of plasma proteins; M06.9 Rheumatoid arthritis, unspecified; M15.9 Polyosteoarthritis, unspecified; G47.33 Obstructive sleep apnea (adult) (pediatric); G89.4 Chronic pain syndrome; F32.A Depression, unspecified; F41.9 Anxiety disorder, unspecified; Z87.11 Personal history of peptic ulcer disease; Z79.82 Long term (current) use of aspirin; Z79.891 Long term (current) use of opiate analgesic; Z86.718 Personal history of other venous thrombosis and embolism; Z79.02 Long term (current) use of antithrombotics/antiplatelets
CPT/HCPCS: 36415; 71045; 80053; 82948; 83036; 83690; 83735; 84443; 84484; 85025; 85610; 85730; 93005; 93306; 93970; 93971; 94640; 96365; 96366; 96372; 99285; A9270; G0378; J0696; J1650; J7030

== ENCOUNTER 2023-04-08 00:18 | Emergency (ER) | payer MEDICARE, BC, SELFPAY ==
[2023-04-08] VITALS (14 sets, daily range): BP systolic 133–188; BP diastolic 63–74; PULSE 74–96; RESP 10–23; TEMP 36.4; O2SAT 97–99
--- NOTE | ~2023-04-08 | CT_ITS ---
CT of the Abdomen and Pelvis: Indication: Abdominal pain Technique: 2.5 mm axial scans were obtained through the abdomen and pelvis following intravenous adm inistration of 100 cc of Omnipaque 350. Dose reduction technique was used on this scan by utilizing a utomated exposure control and iterative reconstruction technique. The dose-length product (DLP) was 5 93.24 mGy-cm. COMPARISON: 10/23/2022 Findings: Scans through the lung bases demonstrate small to moderate hiatal hernia. Stable hepatic hypodense structures. The spleen, pancreas, adrenals and kidneys are within normal dorado its. Cholecystectomy clips present. There are atherosclerotic calcifications of the aorta. No lympha denopathy. No bowel obstruction or bowel wall thickening. There is no evidence to suggest acute appendicitis. Images through the pelvis were performed. Urinary bladder unremarkable. Patient is post hysterectomy. No adnexal mass seen. Impression: [id number] hiatal hernia. Stable hypodense hepatic structures, likely benign. Reviewed, dictated and finalized at [facility]. Impression: [id number] hiatal hernia. Stable hypodense hepatic structures, likely benign.
--- NOTE | ~2023-04-08 | XR_ITS ---
Portable chest x-ray Comparison: 03/15/2023 Clinical History: Leukocytosis Findings: Lungs are clear, without focal consolidation or pleural effusion. Cardiomediastinal silho uette is stable. Bones and soft tissues are unremarkable. Impression: Clear lungs. Reviewed, dictated and finalized at location . Impression: Clear lungs.
[2023-04-08 00:44] LABS: Basophils Absolute Auto 0.1 K/mm3 (0.0-0.1); Basophils Percent Auto 0.5 % (0.2-1.2); Eosinophils Absolute Auto 0.1 K/mm3 (0-0.3); Eosinophils Percent Auto 0.6 % (0-4.4); Hematocrit 39.2 % (37.0-47.0); Hemoglobin 13.3 g/dL (12.0-15.0); Immature Granulocyte Absolute 0.08 K/mm3 (0.00-0.031); Immature Granulocyte Percent A 0.4 % (0-0.5); Lymphocytes Absolute Auto 3.15 K/mm3 (0.9-3.2); Lymphocytes Percent Auto 15.4 % (18.3-44.2); Mean Corpuscular HGB Conc 33.9 g/dl (32-36); Mean Corpuscular Hemoglobin 29.3 pg (26-34); Mean Corpuscular Volume 86.3 fl (80-100); Mean Platelet Volume 9.2 fl (7.4-10.4); Monocytes Absolute Auto 1.3 K/mm3 (0.1-0.6); Monocytes Percent Auto 6.2 % (2.6-8.5); Neutrophils Absolute Auto 15.8 K/mm3 (1.3-6.7); Neutrophils Percent Auto 76.9 % (45.5-73.1); Platelet Count Result 279 k/mm3 (150-375); Red Blood Count 4.54 M/mm3 (4.2-5.4); Red Cell Distribution Width 12.9 % (11.5-14.5); White Blood Count 20.5 K/mm3 (4.5-10.0)
[2023-04-08 00:56] LABS: Alanine Aminotransferase 19 U/L (6-35); Albumin Level 3.8 g/dL (3.5-5.1); Alkaline Phosphatase 117 U/L (38-126); Anion Gap 9 mmol/L (8-16); Aspartate Amino Transferase 31 U/L (14-36); Bilirubin,Total 0.7 mg/dL (0.2-1.3); Blood Urea Nitrogen 13 mg/dL (7-17); Calcium 7.8 mg/dL (8.4-10.2); Carbon Dioxide 22 mmol/L (22-30); Chloride 98 mmol/L (98-107); Estimated Glomerular Filt Rate > 60; Glucose 128 mg/dL (65-110); Lipase 44 U/L (23-300); Potassium 3.4 mmol/L (3.4-5.0); Sodium 129 mmol/L (137-145)
--- NOTE | 2023-04-08 01:11 | ECG_ITS ---
Measurements Intervals [place] Rate: 78 P: 38 NE: 165 QRS: -33 QRSD: 96 T: 41 QT: 390 QTc: 446 Interpretive Statements SINUS RHYTHM LEFT AXIS DEVIATION PATTERN CONSISTENT WITH PULMONARY DISEASE VOLTAGE CRITERIA FOR LVH BASELINE ARTIFACT- I, II, III, AVR, AVL, AVF BORDERLINE ECG COMPARED TO ECG 03/15/2023 09:53:34 SINUS RHYTHM NOW PRESENT Electronically Signed On 04-08-2023 6:40:07 CDT by Jasvir Steele D.O.
--- NOTE | 2023-04-08 01:11 | ED.NAVMDI ---
HPI - Nausea/Vomiting/Diarrhea General Chief complaint: Nausea/Vomiting/Diarrhea <JOSE ROBERTO Calvo Last Filed: 04/08/23 03:48> Stated complaint: BACK PAIN, N/V <JOSE ROBERTO Calvo Last Filed: 04/08/23 03:48> Time Seen by Provider: 04/08/23 00:24 <JOSE ROBERTO Calvo Last Filed: 04/08/23 03:48> Source: patient, EMS and old records reviewed <JOSE ROBERTO Calvo Last Filed: 04/08/23 03:48> Mode of arrival: EMS <JOSE ROBERTO Calvo Last Filed: 04/08/23 03:48> Limitations: no limitations <JOSE ROBERTO Calvo Last Filed: 04/08/23 03:48> History of Present Illness HPI Narrative: Patient is an 78-year-old female who presents to ED via EMS with report of nausea and vomiting. Patient reports she ate dinner with a friend at [facility] and had ribs. She went home and fell asleep several hours later. She then woke up in the middle of the night with pain in her mid to lower back. She reports hx of chronic pain r/t RA, but states this felt different. She then developed nausea and vomiting. She states she has been unable to keep down anything since. EMS was then called. Patient was given Zofran en route with some improvement of nausea, but reports feeling persistently nauseous with any movement. She does also report having right-sided abdominal pain. Denies diarrhea or constipation. Denies fevers. Denies bowel or bladder incontinence, numbness, weakness. Per records, patient was recently admitted here for new onset A-fib with RVR. Patient does endorse slight chest discomfort tonight and currently. Denies any shortness of breath. She is on Eliquis. <JOSE ROBERTO Calvo Last Filed: 04/08/23 03:48> Related Data Home medications: Home Medications Medication Instructions Recorded Confirmed aspirin 81 mg tablet,delayed 81 mg PO DAILY 11/14/19 07/18/23 release (Adult Low Dose Aspirin) nitroglycerin 0.4 mg sublingual 0.4 mg sublingual Q5M PRN Chest 07/29/19 04/01/23 tablet Pain vitamins A,C,L-ojbq-bzakiz 4,296 1 cap PO BID 07/19/22 04/01/23 mcg-226 mg-90 mg capsule (PreserVision AREDS) albuterol sulfate 90 mcg/actuation 90 mcg inhalation QID PRN 08/21/22 04/01/23 aerosol inhaler Shortness Of Breath Or Wheezing spironolactone 25 mg tablet 12.5 mg PO DAILY 10/23/22 04/01/23 tetrahydrozoline 0.05 % eye drops 1 drp EACH EYE DAILY PRN Itching 10/23/22 04/01/23 cetirizine 10 mg capsule 10 mg PO DAILY 03/15/23 04/01/23 ezetimibe 10 mg tablet 10 mg PO DAILY 03/15/23 04/01/23 folic acid 1 mg tablet 1 mg PO DAILY 03/15/23 04/01/23 ranitidine HCl 75 mg tablet 75 mg PO BID 03/15/23 03/15/23 Lactobacillus rhamnosus GG 10 cap PO .QD 04/01/23 04/01/23 billion cell-inulin 200 mg capsule ([facility]) fluticasone propionate 50 1 spray intranasal BID 04/01/23 04/01/23 mcg/actuation nasal spray,suspension (Flonase Allergy Relief) ibuprofen 200 mg tablet 200 mg PO .PRN PRN 04/01/23 04/01/23 <Radhika Webster PA-C - Last Filed: 04/08/23 03:48> Allergies/Adverse reactions: Allergies Allergy/AdvReac Type Severity Reaction Status Date / Time No Known Allergies Allergy Verified 04/01/23 09:21 <Radhika Webster PA-C - Last Filed: 04/08/23 03:48> Review of Systems Review of Systems: CONSTITUTIONAL: Denies fever, chills, or sweats. CARDIOVASCULAR: See HPI. RESPIRATORY: Denies dyspnea. GASTROINTESTINAL: See HPI. GENITOURINARY: Denies dysuria or hematuria. MUSCULOSKELETAL: See HPI. NEUROLOGIC: Denies tingling, numbness, or weakness. <OBED CalvoC - Last Filed: 04/08/23 03:48> All systems reviewed & are unremarkable except as noted in HPI and below <Radhika Webster PA-C - Last Filed: 04/08/23 03:48> [facility] Past Medical History Medical History: Medical History Anxiety Asthma Chroni
[2023-04-08] MEDS: ONDANSETRON INJ 4 MG/2 ML VIAL IV PUSH (01:23)
[2023-04-08] MEDS: SODIUM CHLORIDE 0.9% IV 1,000 ML 999 ML IV CONT (01:23)
[2023-04-08] MEDS: MORPHINE SULFATE (*CRX) 4 MG/ML INJ IV PUSH (01:58)
[2023-04-08 01:59] LABS: Troponin I < 0.012 ng/mL (0.000-0.034)
[2023-04-08 02:17] LABS: Appearance Urine Clear (Clear); Bacteria Urine None Seen /hpf; Bilirubin Urine Negative (Negative); Blood Urine Negative (Negative); Color Urine Yellow (Yellow); Glucose Urine UA Negative (Negative); Ketones Urine Negative (Negative); Leukocyte Esterase Ur Trace LEU/UL (Negative); Nitrate Urine Negative (Negative); Non Pathogenic Casts 0-2; Protein Urine Negative (Negative); RBC Urine 0-2 /hpf (0-2); Specific Grav Ur 1.015 (1.001-1.035); Squamous Epithelial Cell Urine None seen /hpf (Few); Urobilinogen Urine 0.2 mg/dL (<2.0); WBC Urine 0-5 /hpf
[2023-04-08 02:25] LABS: Add Urine Microscopic? YES
[2023-04-08 03:31] LABS: Lactic Acid Reflex 1.3 mmol/L (0.7-2.0)
[2023-04-08] MEDS: HYDROcodone/acetaminophen (*CRX) 5-325 MG TABLET 1 TAB PO (03:46)
[2023-04-08 04:15] LABS: Troponin I < 0.012 ng/mL (0.000-0.034)
== END 2023-04-08 05:58 | disposition home or self-care (01) ==
PROVIDERS: Physician Assistant; Emergency Provider Preventive Medicine Aerospace Medicine; PCP Family Medicine
DX: R11.2 Nausea with vomiting, unspecified (principal); M54.50 Low back pain, unspecified; R07.89 Other chest pain; D72.829 Elevated white blood cell count, unspecified; I48.0 Paroxysmal atrial fibrillation; I25.10 Atherosclerotic heart disease of native coronary artery without angina pectoris; J45.909 Unspecified asthma, uncomplicated; I50.9 Heart failure, unspecified; I11.0 Hypertensive heart disease with heart failure; E11.42 Type 2 diabetes mellitus with diabetic polyneuropathy; E78.5 Hyperlipidemia, unspecified; M06.9 Rheumatoid arthritis, unspecified; E87.1 Hypo-osmolality and hyponatremia; K21.9 Gastro-esophageal reflux disease without esophagitis; K58.9 Irritable bowel syndrome, unspecified; K44.9 Diaphragmatic hernia without obstruction or gangrene; G47.33 Obstructive sleep apnea (adult) (pediatric); G89.4 Chronic pain syndrome; Z98.61 Coronary angioplasty status; Z90.49 Acquired absence of other specified parts of digestive tract; Z90.710 Acquired absence of both cervix and uterus; Z98.49 Cataract extraction status, unspecified eye; Z96.1 Presence of intraocular lens; Z86.718 Personal history of other venous thrombosis and embolism; Z79.01 Long term (current) use of anticoagulants; Z79.82 Long term (current) use of aspirin
CPT/HCPCS: 36415; 71045; 74177; 80053; 81001; 83605; 83690; 84484; 85025; 87040; 93005; 96361; 96374; 96375; 99284; A9270; J2270; J2405; J7030; Q9967

== ENCOUNTER 2023-04-10 17:01 | Inpatient (IN) | payer MEDICARE, BC, SELFPAY ==
[2023-04-10] VITALS (7 sets, daily range): BP systolic 148–200; BP diastolic 52–86; PULSE 63–86; RESP 12–18; TEMP 36.8–36.9; O2SAT 95–98
--- NOTE | ~2023-04-10 | CT_ITS ---
EXAMINATION: CT brain wo con DATE: 04/10/2023 21:58 INDICATION: Syncope TECHNIQUE: Computed tomography (CT) of the head was performed without intravenous contrast. The dose- length product was 681.00 mGy-cm. Automated exposure control and iterative reconstruction technique w ere employed. COMPARISON: MRI dated 08/23/[address] dated 07/21/2022 FINDINGS: There is intracranial contrast due to recent CTA of the chest and abdomen. Brain parenchyma l volume is normal for age. No acute intracranial hemorrhage, infarction, mass or mass effect. Basila r cisterns are patent. Paranasal sinuses and mastoids are pneumatized. No depressed skull fractures. No ventriculomegaly or midline shift. No abnormal enhancement. IMPRESSION: 1. No acute intracranial abnormality. Reviewed, dictated and finalized at location A.
--- NOTE | ~2023-04-10 | XR_ITS ---
EXAMINATION: XR chest 1V portable 04/10/2023 17:28 INDICATION: Chest pain PROCEDURE: AP portable chest COMPARISON: Comparison to multiple prior studies sequentially, with oldest reviewed study dated 03/2022. FINDINGS: The lungs are clear. The cardiomediastinal silhouette is within normal limits. There are no pleural effusions. There is no pneumothorax suspected. Large hiatal hernia. IMPRESSION: 1: No acute cardiopulmonary disease. 2: Large hiatal hernia. Reviewed, dictated and finalized at location A.
--- NOTE | ~2023-04-10 | CT_ITS ---
EXAMINATION: CTA chest abdomen DATE: 04/10/2023 19:32 INDICATION: Chest pain. Hypertension. TECHNIQUE: Computed tomographic angiography (CTA) of the chest and abdomen was performed without and with 100 mL Omnipaque-350 intravenous contrast. The dose-length product was 357.65 mGy-cm. Maximum in tensity projection 3D-reconstructions of the aorta and other arteries were constructed by the technol ronnie on a separate workstation. COMPARISON: Chest x-ray dated 04/10/[address] dated 04/08/2023. FINDINGS: CHEST CTA: No evidence for pulmonary embolism. There is atherosclerosis of the aorta and coronary arteries witho ut evidence for aneurysm. There is a large hiatal hernia with gastric volvulus. No significant pleura l or pericardial effusion. Cardiomegaly. No focal airspace consolidation. No suspicious pulmonary nod ules or masses. There is dependent atelectasis. ABDOMEN CTA: There are small low-density lesions in the liver and spleen, unchanged, likely benign. There is sever e stenosis at the origin of the celiac axis, SMA, bilateral renal arteries and UMA. No evidence for a ortic aneurysm or dissection. There is a subtle hypodense lesion of the right hepatic lobe, image 121 , not well characterize. Consider correlation with MRI without and with contrast. There is moderate-s evere lower thoracic and lumbar spondylosis. Nonobstructive bowel pattern. No lymphadenopathy. IMPRESSION: 1. Moderate diffuse atherosclerosis without evidence for aneurysm or dissection. No pulmonary embolis m. There is severe stenosis at the origin of the celiac axis, SMA, renal arteries and UMA. 2: Large hiatal hernia with gastric volvulus. 3: Subtle ill-defined hypodense mass of the right hepatic lobe, not well characterize. Consider evelyn elation with MRI without and with contrast as clinically indicated. Reviewed, dictated and finalized at location A. IMPRESSION: 1. Moderate diffuse atherosclerosis without evidence for aneurysm or dissection . No pulmonary embolism. There is severe stenosis at the origin of the celiac a xis, SMA, renal arteries and UMA. 2: Large hiatal hernia with gastric volvulus. 3: Subtle ill-defined hypodense mass of the right hepatic lobe, not well megan cterize. Consider correlation with MRI without and with contrast as clinically indicated.
--- NOTE | ~2023-04-10 | MR_ITS ---
EXAMINATION: MR abdomen wo/w con DATE: 04/13/2023 14:42 INDICATION: Hepatic mass. Assess for adrenal tumor. TECHNIQUE: Magnetic resonance imaging (MRI) of the abdomen was performed without and with 13 mL Multi orlin intravenous contrast. Sequences included coronal and axial T2-weighted SS-FSE, axial FS 2D-FIES TA, coronal and axial dual-echo T1-weighted FSPGR, axial T1-weighted LAVA, and axial STIR FSE. Postco ntrast axial T1-weighted LAVA images were obtained in a time course. Postcontrast coronal T1-weighted LAVA images were obtained. COMPARISON: CT dated 04/10/2023, 05/02/2020 and 12/10/2019 FINDINGS: Cardiomegaly. No pericardial or pleural effusion. Moderate-sized sliding-type hiatal hernia. 3 cm T2 hyperintense nonenhancing cyst at the caudal tip of the right hepatic lobe. More cephalad in segment 6 of the liver is a 1.5 cm lesion with subtle T2 hyperintense peripheral rim which at the site of a 3 [address] studies from 2019 which demonstrates a thin peripheral rim of high T2 signal, otherw ise isodense to the surrounding liver and with no discernible enhancement through the 10 minutes of p ostcontrast imaging which suggests interval evolution of a now complex cyst. 1.2 cm T2 hyperintense n onenhancing cyst in the spleen. Main pancreatic duct measures up to 8 mm diameter which is within nor mal limits post cholecystectomy with metallic field artifact associated with a couple cholecystectomy clips at the gallbladder fossa. Pancreas, bilateral adrenal glands and kidneys are normal. Bladder a nd bowels are unremarkable. No pathologically enlarged abdominal or pelvic lymphadenopathy. Mild lumb ar dextrocurvature with severe lower lumbar spondylosis. IMPRESSION: 1. Interval evolution and decrease in size of a previously 3.2 cm, now 1.5 cm complex nonenhancing cy st in the right hepatic lobe which which corresponds to the lesion of concern described on the most r ecent CT. 2. Normal adrenal glands. 2. Moderate-sized sliding-type hiatal hernia. 4. Cardiomegaly. Reviewed, dictated and finalized at location B. IMPRESSION: 1. Interval evolution and decrease in size of a previously 3.2 cm, now 1.5 cm c omplex nonenhancing cyst in the right hepatic lobe which which corresponds to t he lesion of concern described on the most recent CT. 2. Normal adrenal glands. 2. Moderate-sized sliding-type hiatal hernia. 4. Cardiomegaly.
--- NOTE | 2023-04-10 17:53 | ED.CHESTPAIN ---
HPI - Chest Pain General Chief Complaint: Chest Pain Stated Complaint: chest pain Time Seen by Provider: 04/10/23 17:10 History of Present Illness HPI narrative: Patient is an 78-year-old female with a history of asthma, A-fib on Eliquis, hyperlipidemia, hypertension presenting with chest pain. Patient states that for the last day or 2 she has had pain in the middle of her chest that radiates to both of her flanks. States that she checked her blood pressure today and it was 200 systolic so she came in for evaluation. Complains that she feels a bit short of breath and lightheaded as well. Patient received Zofran and nitro from EMS with improvement in her symptoms. Currently, she complains of severe back pain that is chronic in nature. States that she takes Percocets for this. Denies fevers, headache, numbness or weakness, cough, vomiting, diarrhea, leg swelling, dysuria. Related Data Home Medications Medication Instructions Recorded Confirmed aspirin 81 mg tablet,delayed 81 mg PO DAILY 07/29/19 04/10/23 release (Adult Low Dose Aspirin) nitroglycerin 0.4 mg sublingual 0.4 mg sublingual Q5M PRN Chest 07/29/19 04/10/23 tablet Pain vitamins A,C,K-nrqq-aqwetx 4,296 1 cap PO BID 07/19/22 04/10/23 mcg-226 mg-90 mg capsule (PreserVision AREDS) spironolactone 25 mg tablet 12.5 mg PO DAILY 10/23/22 04/10/23 tetrahydrozoline 0.05 % eye drops 1 drp EACH EYE DAILY PRN Itching 10/23/22 04/10/23 cetirizine 10 mg capsule 10 mg PO DAILY 03/15/23 04/10/23 ezetimibe 10 mg tablet 10 mg PO DAILY 03/15/23 04/10/23 folic acid 1 mg tablet 1 mg PO DAILY 03/15/23 04/10/23 Lactobacillus rhamnosus GG 10 1 cap PO .QD 04/01/23 04/10/23 billion cell-inulin 200 mg capsule ([facility]) fluticasone propionate 50 1 spray intranasal BID 04/01/23 04/10/23 mcg/actuation nasal spray,suspension (Flonase Allergy Relief) Allergies Allergy/AdvReac Type Severity Reaction Status Date / Time No Known Allergies Allergy Verified 04/01/23 09:21 Review of Systems Review of Systems: All systems reviewed & are unremarkable except as noted in HPI and below PMFSH Past Medical History Medical History Anxiety Asthma Chronic hyponatremia Chronic pain syndrome Chronic, continuous use of opioids Coronary artery disease Angioplasty of a diagonal lesion in 01/2018. Cardiac catheterization 06/2019 showed patent coronary arteries. Deep venous thrombosis Degenerative joint disease involving multiple joints Depression Gastroesophageal reflux disease Heart failure with preserved ejection fraction Hiatal hernia Hyperlipidemia Hypertension Hypothyroidism Irritable bowel syndrome Obstructive sleep apnea Noncompliant with CPAP. Paroxysmal A-fib Peptic ulcer Peripheral neuropathy Rheumatoid arthritis Seasonal allergies Type 2 diabetes mellitus without complications Diet-controlled. Hemoglobin A1c was 5.7% on 01/24/2021. Surgical History Surgical History History of appendectomy History of arthroscopy of both shoulders History of cardiac catheterization Angioplasty of a diagonal stenosis 01/2018. Cardiac catheterization 06/2019 showed patent coronary arteries. History of carpal tunnel release History of cholecystectomy History of foot surgery History of hysterectomy History of phacoemulsification of cataract with intraocular lens implantation Family History Family History Grandparent Diabetes mellitus Father Acute myocardial infarction Diabetes mellitus Hypertension Mother Hypertension Diabetes mellitus Sibling Diabetes mellitus Hypertension Other Family history of cardiovascular disease Family history of malignant neoplasm of brain Social History Social History Social History: T
[2023-04-10] MEDS: HYDROmorphone HCL INJ (*CRX) 1 MG/ML SYR 0.5 MG IV PUSH (18:20)
[2023-04-10 18:59] LABS: Basophils Absolute Auto 0.1 K/mm3 (0.0-0.1); Basophils Percent Auto 0.4 % (0.2-1.2); Eosinophils Absolute Auto 0.1 K/mm3 (0-0.3); Eosinophils Percent Auto 0.8 % (0-4.4); Hematocrit 35.2 % (37.0-47.0); Hemoglobin 11.6 g/dL (12.0-15.0); Immature Granulocyte Absolute 0.05 K/mm3 (0.00-0.031); Immature Granulocyte Percent A 0.4 % (0-0.5); Lymphocytes Absolute Auto 2.81 K/mm3 (0.9-3.2); Lymphocytes Percent Auto 23.4 % (18.3-44.2); Mean Corpuscular Hemoglobin 28.8 pg (26-34); Mean Corpuscular Volume 87.3 fl (80-100); Mean Platelet Volume 9.7 fl (7.4-10.4); Monocytes Absolute Auto 0.8 K/mm3 (0.1-0.6); Monocytes Percent Auto 6.3 % (2.6-8.5); Neutrophils Absolute Auto 8.2 K/mm3 (1.3-6.7); Neutrophils Percent Auto 68.7 % (45.5-73.1); Platelet Count Result 278 k/mm3 (150-375); Red Blood Count 4.03 M/mm3 (4.2-5.4); Red Cell Distribution Width 12.8 % (11.5-14.5)
[2023-04-10 19:08] LABS: Alanine Aminotransferase 20 U/L (6-35); Alkaline Phosphatase 114 U/L (38-126); Anion Gap 9 mmol/L (8-16); Aspartate Amino Transferase 29 U/L (14-36); Bilirubin,Total 0.5 mg/dL (0.2-1.3); Blood Urea Nitrogen 9 mg/dL (7-17); Calcium 8.8 mg/dL (8.4-10.2); Carbon Dioxide 26 mmol/L (22-30); Chloride 95 mmol/L (98-107); Estimated CRCL calculation 55 ml/min; Estimated Glomerular Filt Rate > 60; Glucose 136 mg/dL (65-110); Lipase 38 U/L (23-300); Potassium 4.2 mmol/L (3.4-5.0); Sodium 130 mmol/L (137-145)
[2023-04-10 19:10] LABS: Prothrombin Time 13.7 Seconds (11.1-14.7)
[2023-04-10 19:11] LABS: Partial Thromboplastin Time 31.2 SECONDS (22.3-36.8)
[2023-04-10 19:20] LABS: Troponin I < 0.012 ng/mL (0.000-0.034)
[2023-04-10] MEDS: ONDANSETRON INJ 4 MG/2 ML VIAL IV PUSH (21:13)
[2023-04-10] MEDS: SODIUM CHLORIDE 0.9% IV 1,000 ML 999 ML IV CONT (21:14)
--- NOTE | 2023-04-10 21:40 | PM.IMHP ---
H&P: HPI History of Present Illness Date/Time: 04/10/23 21:40 Chief Complaint: Dizziness Narrative: This is an 78-year-old female with past medical history significant for RA, GERD, type diabetes mellitus, COPD/emphysema, her paroxysmal AFib, chronic hyponatremia, chronic pain syndrome, on chronic opioids, hypertension, peripheral neuropathy, obstructive sleep apnea, irritable bowel syndrome, hypothyroidism, hiatal hernia. Patient presents to the emergency room due to uncontrolled hypertension, dizziness, patient has been feeling like this for the last 2 days or so and her blood pressure has been systolic in the 200s. Patient denies any nausea vomiting diarrhea abdominal pain however had chest pain localized to the retrosternal area with radiation bilaterally to both flanks, no leg swelling, no PND, no orthopnea. Patient had near syncopal episode. Upon presentation to emergency room systolic blood pressure was 188. Patient is being placed in observation for further evaluation management and treatment. EXAMINATION: CT brain wo con DATE: 04/10/2023 21:58 INDICATION: Syncope TECHNIQUE: Computed tomography (CT) of the head was performed without intravenous contrast. The dose-length product was 681.00 mGy-cm. Automated exposure control and iterative reconstruction technique were employed. COMPARISON: MRI dated 08/23/[address] dated 07/21/2022 FINDINGS: There is intracranial contrast due to recent CTA of the chest and abdomen. Brain parenchymal volume is normal for age. No acute intracranial hemorrhage, infarction, mass or mass effect. Basilar cisterns are patent. Paranasal sinuses and mastoids are pneumatized. No depressed skull fractures. No ventriculomegaly or midline shift. No abnormal enhancement. IMPRESSION: 1. No acute intracranial abnormality. EXAMINATION: CTA chest abdomen DATE: 04/10/2023 19:32 INDICATION: Chest pain. Hypertension. TECHNIQUE: Computed tomographic angiography (CTA) of the chest and abdomen was performed without and with 100 mL Omnipaque-350 intravenous contrast. The dose-length product was 357.65 mGy-cm. Maximum intensity projection 3D-reconstructions of the aorta and other arteries were constructed by the technologist on a separate workstation. COMPARISON: Chest x-ray dated 04/10/[address] dated 04/08/2023. FINDINGS: CHEST CTA: No evidence for pulmonary embolism. There is atherosclerosis of the aorta and coronary arteries without evidence for aneurysm. There is a large hiatal hernia with gastric volvulus. No significant pleural or pericardial effusion. Cardiomegaly. No focal airspace consolidation. No suspicious pulmonary nodules or masses. There is dependent atelectasis. ABDOMEN CTA: There are small low-density lesions in the liver and spleen, unchanged, likely benign. There is severe stenosis at the origin of the celiac axis, SMA, bilateral renal arteries and UMA. No evidence for aortic aneurysm or dissection. There is a subtle hypodense lesion of the right hepatic lobe, image 121, not well characterize. Consider correlation with MRI without and with contrast. There is moderate-severe lower thoracic and lumbar spondylosis. Nonobstructive bowel pattern. No lymphadenopathy. IMPRESSION: 1. Moderate diffuse atherosclerosis without evidence for aneurysm or dissection. No pulmonary embolism. There is severe stenosis at the origin of the celiac axis, SMA, renal arteries and UMA. 2:? Large hiatal hernia with gastric volvulus. 3:? Subtle ill-defined hypodense mass of the right hepatic lobe, not well characterize. Consider correlation with MRI without and with contrast as clinically indicated. EXAMINATION: XR chest 1V portable 04/10/2023 17:28 INDICATION: Chest pain PROCEDURE:? AP portable chest COMPARISON: Comparison to multiple prior studies sequentially, with oldest reviewed study dated? 08/21/2022. FINDINGS: The lungs are clear.? The cardiomediastinal silhouette is within normal limits.? There are no pl
[2023-04-10 22:53] LABS: Troponin I < 0.012 ng/mL (0.000-0.034)
[2023-04-11] VITALS (14 sets, daily range): BP systolic 118–180; BP diastolic 53–87; PULSE 60–102; RESP 16–18; TEMP 36.6–37; O2SAT 96–99
--- NOTE | 2023-04-11 | ECG_ITS ---
Measurements Intervals [place] Rate: 67 P: 63 [place]: 185 QRS: -29 QRSD: 101 T: 26 QT: 396 QTc: 421 Interpretive Statements SINUS RHYTHM DELAYED PRECORDIAL R/S TRANSITION LEFT VENTRICULAR HYPERTROPHY MINIMAL Q WAVES- HIGH LATERAL LEADS BASELINE ARTIFACT- I, II, III, AVR, AVL, AVF BORDERLINE ECG COMPARED TO ECG 04/08/2023 01:26:15 NO SIGNIFICANT CHANGES Electronically Signed On 04-11-2023 7:40:38 CDT by Jasvir Steele D.O.
[2023-04-11] MEDS: oxyCODONE/ACETAMINOPHEN (*CRX) 10-325 MG TABLET 1 TAB PO ×4 (01:14→20:10)
[2023-04-11 01:30] LABS: Troponin I < 0.012 ng/mL (0.000-0.034)
--- NOTE | 2023-04-11 03:11 | ADMGEN ---
This patient, Aracely Spear, was admitted to Medical Room 341-01. Patient/family oriented to hospital policies and general routines including ID bracelet, bed and alarms, visiting hours, pain management, procedures, bathroom and other care routines, personal items, smoking policy, room service/diet, and visiting hours. Information on how to activate the Rapid Response Team has been discussed. Patient/Family are encouraged to report perceived risks to care and to ask questions if they do not understand what they are told or what they should do.
[2023-04-11] MEDS: LEVOTHYROXINE SODIUM 88 MCG TABLET PO (05:55)
[2023-04-11 08:22] LABS: Glucose Point of Care 128 mg/dl (65-105)
[2023-04-11] MEDS: FLUTICASONE/SALMETEROL 115-21 MCG INHALER 1 PUFF 2 PUFF INHALATION ×2 (08:30→19:43)
[2023-04-11] MEDS: ASPIRIN 81 MG ENTERIC TABLET PO (09:38)
[2023-04-11] MEDS: hydrALAZINE HCL 50 MG TABLET PO ×4 (09:38→20:10)
[2023-04-11] MEDS: dilTIAZem HCL CD 120 MG CAP.24HR PO (09:38)
[2023-04-11] MEDS: NITROGLYCERIN SL 0.4 MG TABLET SUBLINGUAL (09:43)
[2023-04-11] MEDS: MORPHINE SULFATE (*CRX) 2 MG/ML INJ IV PUSH (09:48)
--- NOTE | 2023-04-11 10:02 | ECG_ITS ---
Measurements Intervals [place] Rate: 72 P: 60 [place]: 190 QRS: -39 QRSD: 84 T: 13 QT: 386 QTc: 423 Interpretive Statements SINUS RHYTHM LEFT AXIS DEVIATION VOLTAGE CRITERIA FOR LVH BASELINE ARTIFACT- I, II, III, AVF BORDERLINE ECG COMPARED TO ECG 04/10/2023 17:16:47 LEFT-AXIS DEVIATION NOW PRESENT Electronically Signed On 04-11-2023 19:38:43 CDT by Jasvir Steele D.O.
[2023-04-11] MEDS: SPIRONOLACTONE 12.5 MG TABLET PO (10:03)
[2023-04-11] MEDS: ACIDOPHILUS/BULGARICUS CHEWABLE TABLET 2 TABLET BY MOUTH (10:03)
[2023-04-11] MEDS: SODIUM CHLORIDE 1 GM TABLET PO ×2 (10:03→17:28)
[2023-04-11] MEDS: FOLIC ACID 1 MG TABLET PO (10:03)
[2023-04-11] MEDS: MONTELUKAST SODIUM 10 MG TABLET PO (10:03)
[2023-04-11] MEDS: FLUTICASONE PROPIONATE 0.05% NA SPR 16 GM BTL (*BKC) 1 SPRAY NASAL ×2 (10:04→17:29)
[2023-04-11] MEDS: PANTOPRAZOLE 40 MG TABLET PO (10:04)
[2023-04-11] MEDS: APIXABAN 5 MG TABLET PO ×2 (10:04→20:10)
[2023-04-11] MEDS: MAGNESIUM OXIDE 400 MG TABLET PO (10:04)
[2023-04-11] MEDS: FAMOTIDINE 20 MG TABLET PO ×2 (10:04→20:09)
[2023-04-11] MEDS: busPIRone HCL 10 MG TABLET PO ×2 (10:04→17:28)
[2023-04-11] MEDS: OPTI-GEN TAB 1 TABLET PO ×2 (10:04→17:28)
[2023-04-11] MEDS: LORATADINE 10 MG TABLET PO (10:14)
--- NOTE | 2023-04-11 10:19 | PM.IMPN ---
Progress Note: A&P Assessment and Plan (1) Uncontrolled hypertension: Code(s): I10 - Essential (primary) hypertension Status: Acute Assessment and Plan: -Admit to med tele -Restart home meds -Episode of HTN with anxiety and chest pain. SBP 200's/100's, HR 140's. Received nitro and morphine IVP with resolution of chest pain and improvement in SBP to 180s. Blood pressures are equal in both arms. Blood pressure now 134/53. -Patient has been following with Cardiology at [facility] it appears that she has been hospitalized multiple times for similar complaints. She has had a history of PCI without stent placement in [address] Pedraza. -Concerns for rebound HTN given her inconsistency with hydralazine vs pheochromocytoma -Pheo labs pending (2) Postural dizziness with near syncope: Code(s): R42 - Dizziness and giddiness; R55 - Syncope and collapse Status: Acute Assessment and Plan: Likely secondary to uncontrolled hypertension CT head reviewed with no acute intracranial abnormality (3) Paroxysmal A-fib: Code(s): I48.0 - Paroxysmal atrial fibrillation Status: Acute Assessment and Plan: Rate controlled anticoagulated with eliquis -on telemetry ECHO from 03/17: Summary ? 1. Complete two-dimensional, color flow and Doppler transthoracic echocardiogram is performed. ? 2. Left ventricular chamber dimension is normal. ? 3. Left ventricular systolic function is normal, estimated at 65-70%. ? 4. There is no increased left ventricular wall thickness. ? 5. The left ventricular diastolic function is indeterminate. ? 6. Left atrial chamber dimension is mildly enlarged. ? 7. There is trace mitral valve regurgitation. ? 8. There is mild to moderate tricuspid valve regurgitation. ? 9. Mild pulmonary hypertension, estimated pulmonary arterial systolic pressure is 41 mmHg. (4) Gastroesophageal reflux disease: Qualifiers: Esophagitis presence: esophagitis presence not specified Qualified Code(s): K21.9 - Gastro-esophageal reflux disease without esophagitis Code(s): K21.9 - Gastro-esophageal reflux disease without esophagitis Status: Acute Assessment and Plan: PPI Large hiatal hernia on imaging (5) Obstructive sleep apnea: Code(s): G47.33 - Obstructive sleep apnea (adult) (pediatric) Status: Acute Assessment and Plan: She says she needs a sleep study because she needs a new machine. She does not have a CPAP at home. (6) Coronary artery disease: Qualifiers: Associated angina: without angina Coronary Disease-Associated Artery/Lesion type: [place] artery [place] vs. transplanted heart: [place] heart Qualified Code(s): I25.10 - Atherosclerotic heart disease of [place] coronary artery without angina pectoris Code(s): I25.10 - Atherosclerotic heart disease of [place] coronary artery without angina pectoris Status: Acute Assessment and Plan: Continues to have recurrent episodes of chest pain with episodes of HTN and anxiety. Continue antilipid therapy and ASA (7) Degenerative joint disease involving multiple joints: Qualifiers: Osteoarthritis type: unspecified Qualified Code(s): M15.9 - Polyosteoarthritis, unspecified Code(s): M15.9 - Polyosteoarthritis, unspecified Status: Acute Assessment and Plan: Tylenol p.r.n. Continue home meds (8) Rheumatoid arthritis: Qualifiers: Laterality: bilateral Rheumatoid arthritis location: hand Rheumatoid factor presence: unspecified presence Qualified Code(s): M06.9 - Rheumatoid arthritis, unspecified Code(s): M06.9 - Rheumatoid arthritis, unspecified Status: Chronic Assessment and Plan: Not on DMARDs Tylenol p.r.n. (9) Type 2 diabetes mellitus without complications: Qualifiers: Diabetes mellitus terminal supervisor insulin use: without terminal supervisor use Qualified Code(s): E11.9 - Type 2 diabetes mellitus without co
[2023-04-11 10:30] LABS: Basophils Absolute Auto 0.1 K/mm3 (0.0-0.1); Basophils Percent Auto 0.8 % (0.2-1.2); Eosinophils Absolute Auto 0.1 K/mm3 (0-0.3); Eosinophils Percent Auto 0.9 % (0-4.4); Hematocrit 38.7 % (37.0-47.0); Hemoglobin 12.7 g/dL (12.0-15.0); Immature Granulocyte Absolute 0.03 K/mm3 (0.00-0.031); Immature Granulocyte Percent A 0.3 % (0-0.5); Lymphocytes Absolute Auto 2.68 K/mm3 (0.9-3.2); Lymphocytes Percent Auto 29.6 % (18.3-44.2); Mean Corpuscular HGB Conc 32.8 g/dl (32-36); Mean Corpuscular Hemoglobin 28.9 pg (26-34); Mean Platelet Volume 9.3 fl (7.4-10.4); Monocytes Absolute Auto 0.5 K/mm3 (0.1-0.6); Monocytes Percent Auto 5.5 % (2.6-8.5); Neutrophils Absolute Auto 5.7 K/mm3 (1.3-6.7); Neutrophils Percent Auto 62.9 % (45.5-73.1); Platelet Count Result 288 k/mm3 (150-375); Red Cell Distribution Width 12.9 % (11.5-14.5)
[2023-04-11 10:41] LABS: Alanine Aminotransferase 22 U/L (6-35); Albumin Level 4.4 g/dL (3.5-5.1); Alkaline Phosphatase 134 U/L (38-126); Anion Gap 10 mmol/L (8-16); Aspartate Amino Transferase 31 U/L (14-36); Blood Urea Nitrogen 8 mg/dL (7-17); Calcium 9.3 mg/dL (8.4-10.2); Carbon Dioxide 28 mmol/L (22-30); Chloride 97 mmol/L (98-107); Estimated Glomerular Filt Rate > 60; Glucose 130 mg/dL (65-110); Sodium 135 mmol/L (137-145)
[2023-04-11 10:50] LABS: INR 1.1; Prothrombin Time 14.4 Seconds (11.1-14.7)
[2023-04-11 10:51] LABS: Partial Thromboplastin Time 33.1 SECONDS (22.3-36.8)
[2023-04-11 10:52] LABS: Troponin I < 0.012 ng/mL (0.000-0.034)
--- NOTE | 2023-04-11 10:58 | PCOTNOTE ---
Attempted OT eval at 10:58, patient refused to participate. Will attempt again at a later date.
--- NOTE | 2023-04-11 10:58 | PC.NURSE ---
Visitor at bedside alerted copywriter that patient was not feeling well and felt dizzy. PCT took vitals and patient found be be hypertensive. Hospitalist , Chanel Sterling was on the floor and came to assess patient. Patient stated she felt funny, had a headache and some chest discomforted. Morphine 2 mg , and nitroglycerine was administered. The 0900 dose of (home med) hydralazine was giving as well. Vitals signs stabilized and patient stated headache and chest pressure resolved. Additional labs and an EKG were also ordered by hospitalist
[2023-04-11 12:04] LABS: Glucose Point of Care 123 mg/dl (65-105)
--- NOTE | 2023-04-11 13:38 | PCOTNOTE ---
Attempted OT eval at 13:38 again, patient refused. Will follow.
--- NOTE | 2023-04-11 15:06 | PM.CNCAR ---
Assessment and Plan Assessment and plan (1) Uncontrolled hypertension: Code(s): I10 - Essential (primary) hypertension Status: Acute Plan This is an 78-year-old lady with a very rather challenging situation. She has a history of coronary disease but following PCI of a diagonal branch a long time ago she has not had any recurrent objective evidence of an ischemic problems. She has significant difficulty with chronic pain syndrome and I believe a when she is in pain has significantly elevated systolic blood pressure she becomes repeatedly concerned about this and many times is seen in the hospital with the symptoms. Once again there is no evidence that she is ischemic and I do not believe we need to be greatly concerned about this. I am going to try adding back some Bystolic to her regimen. Hopefully this will improve with situation I would also plan to spend some time with my partner's charge to determine why she is receiving hydralazine rather than an ARB or CHATA inhibitor as her vaso dilator. With this patient's chronic pain syndrome it is going to be difficult if not impossible to achieve excellent blood pressure control as when she is in pain she becomes very anxious and this triggers significant systolic hypertension. We have seen this in the hospital with this patient on quite a few occasions. Will follow her with you while she is in the hospital going to start back some Bystolic this afternoon. Gumaro Gasca MD [facility] History of Present Illness History of Present Illness Consult date/time: 04/11/23 15:06 Consult reason: hypertension Reason For Visit: Syncope Narrative: This is an 78-year-old woman who is known to my partner, Dr. Pedraza and also to myself in other physicians in our practice as she is frequent frequently admitted here at [facility]. I am asked to see her today the request of the hospitalist because of chest pain and hypertension. The patient has had these problems for a long time. She states that she was in her usual state of what she thought was reasonably good stable situation when yesterday while she was at home simply looking out the window at her yd she noticed the onset of some pain she was feeling unwell and took her blood pressure she found to be very high, in excess of over 200 mm for systolic blood pressure and she called an ambulance and was brought to the hospital. She states that at home she took a nitroglycerin sublingual to reduce pressure she was given another [address] in the ambulance on the way here. She is seen in the emergency room and admitted to IMU. The patient has a history of coronary artery disease which was limited to a diagonal branch of the LAD which was treated successfully with angioplasty in the past. Since then she has had a series of admissions to the hospital complaining about a variety of things including chest pain but has never had a recurrent acute coronary problem. She was brought back to the cardiac catheterization lab in 2019 and found to have patent coronary arteries she did have a favorable nuclear stress test as recently as the fall. She was hospitalized here most recently with symptoms like this and was found to be in atrial fibrillation which was new diagnosis. She converted to sinus rhythm with IV diltiazem small dose of long-acting diltiazem was added to her medical regimen at that time. When that was done Bystolic which was part of her antihypertensive regimen was discontinued. She once again on admission to the hospitalist time has 2 electrocardiograms that look negative for ischemic changes she is in sinus rhythm. She has negative coronary troponin levels. Because of the atrial fib she was recently started on apixaban as well. Complicating all of this is the patient has a chronic pain syndrome with that she attributes to arthritis as well as nonspecific chronic pain and she is dependent on narcotics she says she takes narcotics around the clock, oxycod
[2023-04-11] MEDS: NEBIVOLOL HCL 5 MG TABLET PO (16:01)
[2023-04-11 17:05] LABS: Glucose Point of Care 114 mg/dl (65-105)
[2023-04-11] MEDS: ATORVASTATIN 40 MG TABLET PO (20:10)
[2023-04-12] VITALS (14 sets, daily range): BP systolic 140–199; BP diastolic 53–60; PULSE 60–74; RESP 18–20; TEMP 36.4–36.7; O2SAT 97–100
[2023-04-12] MEDS: oxyCODONE/ACETAMINOPHEN (*CRX) 10-325 MG TABLET 1 TAB PO ×4 (01:58→21:03)
[2023-04-12] MEDS: LEVOTHYROXINE SODIUM 88 MCG TABLET PO (05:53)
[2023-04-12 06:37] LABS: Basophils Absolute Auto 0.1 K/mm3 (0.0-0.1); Basophils Percent Auto 0.7 % (0.2-1.2); Eosinophils Absolute Auto 0.1 K/mm3 (0-0.3); Eosinophils Percent Auto 1.2 % (0-4.4); Hematocrit 37.3 % (37.0-47.0); Hemoglobin 12.3 g/dL (12.0-15.0); Immature Granulocyte Absolute 0.04 K/mm3 (0.00-0.031); Immature Granulocyte Percent A 0.4 % (0-0.5); Lymphocytes Absolute Auto 3.87 K/mm3 (0.9-3.2); Lymphocytes Percent Auto 35.1 % (18.3-44.2); Mean Corpuscular Hemoglobin 29.1 pg (26-34); Mean Corpuscular Volume 88.2 fl (80-100); Mean Platelet Volume 9.4 fl (7.4-10.4); Monocytes Absolute Auto 0.7 K/mm3 (0.1-0.6); Monocytes Percent Auto 6.6 % (2.6-8.5); Neutrophils Absolute Auto 6.2 K/mm3 (1.3-6.7); Platelet Count Result 305 k/mm3 (150-375); Red Blood Count 4.23 M/mm3 (4.2-5.4); Red Cell Distribution Width 13.1 % (11.5-14.5)
[2023-04-12 06:47] LABS: INR 1.1
[2023-04-12 06:48] LABS: Alanine Aminotransferase 23 U/L (6-35); Albumin Level 4.4 g/dL (3.5-5.1); Alkaline Phosphatase 107 U/L (38-126); Anion Gap 11 mmol/L (8-16); Aspartate Amino Transferase 29 U/L (14-36); Bilirubin,Total 1.2 mg/dL (0.2-1.3); Blood Urea Nitrogen 12 mg/dL (7-17); Carbon Dioxide 27 mmol/L (22-30); Chloride 94 mmol/L (98-107); Estimated Glomerular Filt Rate 60; Glucose 110 mg/dL (65-110); Magnesium 1.7 mg/dL (1.6-2.3); Partial Thromboplastin Time 37.6 SECONDS (22.3-36.8); Potassium 3.9 mmol/L (3.4-5.0); Sodium 132 mmol/L (137-145)
[2023-04-12] MEDS: FLUTICASONE/SALMETEROL 115-21 MCG INHALER 1 PUFF 2 PUFF INHALATION ×2 (07:21→20:01)
[2023-04-12] MEDS: NEBIVOLOL HCL 5 MG TABLET PO (08:10)
[2023-04-12] MEDS: MAGNESIUM OXIDE 400 MG TABLET PO (08:10)
[2023-04-12] MEDS: SPIRONOLACTONE 12.5 MG TABLET PO (08:11)
[2023-04-12] MEDS: LORATADINE 10 MG TABLET PO (08:11)
[2023-04-12] MEDS: ACIDOPHILUS/BULGARICUS CHEWABLE TABLET 2 TABLET BY MOUTH (08:11)
[2023-04-12] MEDS: hydrALAZINE HCL 50 MG TABLET PO ×2 (08:11→12:41)
[2023-04-12] MEDS: FOLIC ACID 1 MG TABLET PO (08:11)
[2023-04-12] MEDS: FAMOTIDINE 20 MG TABLET PO ×2 (08:11→20:13)
[2023-04-12] MEDS: APIXABAN 5 MG TABLET PO ×2 (08:11→20:13)
[2023-04-12] MEDS: OPTI-GEN TAB 1 TABLET PO ×2 (08:11→17:32)
[2023-04-12] MEDS: PANTOPRAZOLE 40 MG TABLET PO (08:11)
[2023-04-12] MEDS: ASPIRIN 81 MG ENTERIC TABLET PO (08:12)
[2023-04-12] MEDS: SODIUM CHLORIDE 1 GM TABLET PO ×2 (08:12→17:32)
[2023-04-12] MEDS: dilTIAZem HCL CD 120 MG CAP.24HR PO (08:12)
[2023-04-12] MEDS: busPIRone HCL 10 MG TABLET PO ×2 (08:12→17:32)
[2023-04-12] MEDS: FLUTICASONE PROPIONATE 0.05% NA SPR 16 GM BTL (*BKC) 1 SPRAY NASAL ×2 (08:16→17:34)
[2023-04-12] MEDS: MONTELUKAST SODIUM 10 MG TABLET PO (08:35)
--- NOTE | 2023-04-12 09:10 | PM.IMPN ---
Progress Note: A&P Assessment and Plan (1) Uncontrolled hypertension: Code(s): I10 - Essential (primary) hypertension Status: Acute Assessment and Plan: -Admit to med tele -Restart home meds -Episode of HTN with anxiety and chest pain. SBP 200's/100's, HR 140's. Received nitro and morphine IVP with resolution of chest pain and improvement in SBP to 180s. Blood pressures are equal in both arms. Blood pressure now 134/53. -Patient has been following with Cardiology at [facility] it appears that she has been hospitalized multiple times for similar complaints. She has had a history of PCI without stent placement in [address] Pedraza. -Concerns for rebound HTN given her inconsistency with hydralazine vs anxiety vs less likely pheochromocytoma -Pheo labs pending -Consulted cardiology and recommendations are appreciated -Restarted Bystolic -Had questioned why patient was not on CHATA/ARB but rather hydralazine. Chart review from cardiology note on 04/2021 mentions that patient was admitted at [facility] for hyponatremia (124) and her valsartan and Bystolic were stopped during that admission. No further mention of restarting Valsartan after that. It was mentioned in a note later that the patient was unable to fill her bystolic because of cost. (2) Postural dizziness with near syncope: Code(s): R42 - Dizziness and giddiness; R55 - Syncope and collapse Status: Acute Assessment and Plan: Likely secondary to uncontrolled hypertension CT head reviewed with no acute intracranial abnormality (3) Paroxysmal A-fib: Code(s): I48.0 - Paroxysmal atrial fibrillation Status: Acute Assessment and Plan: Rate controlled anticoagulated with eliquis -on telemetry ECHO from 03/17: Summary ? 1. Complete two-dimensional, color flow and Doppler transthoracic echocardiogram is performed. ? 2. Left ventricular chamber dimension is normal. ? 3. Left ventricular systolic function is normal, estimated at 65-70%. ? 4. There is no increased left ventricular wall thickness. ? 5. The left ventricular diastolic function is indeterminate. ? 6. Left atrial chamber dimension is mildly enlarged. ? 7. There is trace mitral valve regurgitation. ? 8. There is mild to moderate tricuspid valve regurgitation. ? 9. Mild pulmonary hypertension, estimated pulmonary arterial systolic pressure is 41 mmHg. (4) Gastroesophageal reflux disease: Qualifiers: Esophagitis presence: esophagitis presence not specified Qualified Code(s): K21.9 - Gastro-esophageal reflux disease without esophagitis Code(s): K21.9 - Gastro-esophageal reflux disease without esophagitis Status: Acute Assessment and Plan: PPI Large hiatal hernia on imaging (5) Obstructive sleep apnea: Code(s): G47.33 - Obstructive sleep apnea (adult) (pediatric) Status: Acute Assessment and Plan: She says she needs a sleep study because she needs a new machine. She does not have a CPAP at home. (6) Coronary artery disease: Qualifiers: Associated angina: without angina Coronary Disease-Associated Artery/Lesion type: [place] artery [place] vs. transplanted heart: [place] heart Qualified Code(s): I25.10 - Atherosclerotic heart disease of [place] coronary artery without angina pectoris Code(s): I25.10 - Atherosclerotic heart disease of [place] coronary artery without angina pectoris Status: Acute Assessment and Plan: Continues to have recurrent episodes of chest pain with episodes of HTN and anxiety. Continue antilipid therapy and ASA (7) Degenerative joint disease involving multiple joints: Qualifiers: Osteoarthritis type: unspecified Qualified Code(s): M15.9 - Polyosteoarthritis, unspecified Code(s): M15.9 - Polyosteoarthritis, unspecified Status: Acute Assessment and Plan: Tylenol p.r.n. Continue home meds (8) Rheumatoid arthritis: Qualifiers: [place]
[2023-04-12 09:32] LABS: Glucose Point of Care 155 mg/dl (65-105)
[2023-04-12 11:38] LABS: Hemoglobin A1C 6.3 % (<5.7)
[2023-04-12 12:48] LABS: Glucose Point of Care 204 mg/dl (65-105)
--- NOTE | 2023-04-12 14:27 | PM.PNCARD ---
Progress Note: A&P Assessment and Plan (1) Uncontrolled hypertension: Code(s): I10 - Essential (primary) hypertension Status: Acute (2) Paroxysmal A-fib: Code(s): I48.0 - Paroxysmal atrial fibrillation Status: Acute Plan This is an 78-year-old woman with the above described comorbidities. We are trying to get her hypertension medications adjusted to improve this labile blood pressure. She is doing better with resumption of some Bystolic yesterday. Talking to the patient and reviewing the chart I do not see any documented reason as to why she is taking hydralazine rather than an ARB she. She was previously on valsartan. I am going to stop the hydralazine and resume valsartan at 160 mg starting tomorrow morning. Hopefully this will provide better and more consistent blood pressure control. Gumaro Gasca MD [facility] Subjective Date/time seen: Date of service: 04/12/23 14:27 Interval history: Follow-up visit in this 78-year-old woman with: Coronary artery disease with previous PCI of the diagonal branch of her LAD, recent diagnosis of atrial fibrillation, currently in sinus rhythm. Significant chaotic hypertension requiring multi drug regimen. Patient has also chronic pain syndrome resulting in rather labile blood pressure. Admitted to the hospital again with symptomatic labile hypertension. Patient reports to be feeling better today she still says that she has episodes where her systolic pressure will rise into the 160-170 range and when she has that she feels weak and has chest pain. She says she had some of that again this morning. At this time she is resting comfortably and watching television. Exam Const: General: comfortable and no acute distress HENMT: Mouth: Yes moist mucous membranes Eyes: Sclera: sclerae normal Neck: Neck: supple and no JVD Resp: Effort & Inspection: normal respiratory effort Auscultation: clear to auscultation bilaterally Cardio: Rate: regular rate Rhythm: regular rhythm GI: GI Palp: Yes Soft to palpation Auscultation: normal bowel sounds Skin: General skin exam: normal color Neuro: Other: Alert and oriented x3 Extrem: Other: No edema, good distal pulses Objective Data Vital Signs Vital Signs: Vital Signs - 24 hr 04/11/23 15:58 04/11/23 16:01 04/11/23 16:00 Temperature Pulse Rate 84 73 74 Respiratory Rate Blood Pressure 164/65 H Pulse Oximetry Oxygen Delivery Oxygen Flow Rate 04/11/23 20:00 04/11/23 20:00 04/11/23 21:39 Temperature 36.6 C Pulse Rate 65 63 Respiratory Rate 18 Blood Pressure 118/53 L Pulse Oximetry 97 Oxygen Delivery Room Air Oxygen Flow Rate 04/12/23 00:00 04/12/23 04:00 04/12/23 06:00 Temperature 36.7 C Pulse Rate 62 65 65 Respiratory Rate 20 Blood Pressure 154/60 H Pulse Oximetry 99 Oxygen Delivery Oxygen Flow Rate 04/12/23 07:22 04/12/23 07:25 04/12/23 08:10 Temperature Pulse Rate 74 74 Respiratory Rate 20 Blood Pressure Pulse Oximetry 97 Oxygen Delivery Nasal Cannula Oxygen Flow Rate 1 04/12/23 11:40 04/12/23 08:00 04/12/23 12:00 Temperature Pulse Rate 66 68 Respiratory Rate Blood Pressure Pulse Oximetry Oxygen Delivery Nasal Cannula Oxygen Flow Rate 2 Intake/Output Intake/Output: Intake & Output 04/09/23 04/10/23 04/11/23 04/12/23 23:59 23:59 23:59 23:59 Intake Total 1080 590 Balance 1080 590 Meds/Results Medications: Active Medications Generic Name Dose Route Start Last Admin Trade Name Freq PRN Reason Stop Dose Admin Albuterol 2 puff 04/11/23 01:01 Albuterol Sulfate (*Sp) Aerosol 1 Puff INHALATION QID PRN Shortness Of Breath Or Wheezing Apixaban 5 mg 04/11/23 09:00 04/12/23 08:11 Apixaban 5 Mg Tablet PO 5 mg Q12HR GINO Administration Aspirin 81 mg 04/11/23 09:00 04/12/23 08:12 Aspirin 81 Mg Enteric Tablet PO 81 mg DA
[2023-04-12] MEDS: VALSARTAN 160 MG TABLET PO (16:23)
[2023-04-12 17:23] LABS: Glucose Point of Care 115 mg/dl (65-105)
[2023-04-12] MEDS: ATORVASTATIN 40 MG TABLET PO (20:13)
[2023-04-12] MEDS: hydrALAZINE HCL 20 MG/ML VIAL IV PUSH (21:32)
[2023-04-12 21:41] LABS: Glucose Point of Care 134 mg/dl (65-105)
[2023-04-13] VITALS (10 sets, daily range): BP systolic 139–145; BP diastolic 62–63; PULSE 62–86; RESP 18; TEMP 36.6–36.9; O2SAT 95–97
[2023-04-13] MEDS: oxyCODONE/ACETAMINOPHEN (*CRX) 10-325 MG TABLET 1 TAB PO ×4 (03:01→22:21)
[2023-04-13] MEDS: LEVOTHYROXINE SODIUM 88 MCG TABLET PO (05:02)
--- NOTE | 2023-04-13 06:30 | PCRCNOTE ---
pt was found with apnea monitor turned off; There was not enough data on the apnea monitor
[2023-04-13 06:45] LABS: Basophils Absolute Auto 0.1 K/mm3 (0.0-0.1); Basophils Percent Auto 0.6 % (0.2-1.2); Eosinophils Absolute Auto 0.1 K/mm3 (0-0.3); Eosinophils Percent Auto 1.1 % (0-4.4); Hematocrit 34.4 % (37.0-47.0); Hemoglobin 11.5 g/dL (12.0-15.0); Immature Granulocyte Absolute 0.03 K/mm3 (0.00-0.031); Immature Granulocyte Percent A 0.3 % (0-0.5); Lymphocytes Absolute Auto 2.53 K/mm3 (0.9-3.2); Lymphocytes Percent Auto 24.5 % (18.3-44.2); Mean Corpuscular HGB Conc 33.4 g/dl (32-36); Mean Corpuscular Hemoglobin 29.4 pg (26-34); Mean Platelet Volume 9.1 fl (7.4-10.4); Monocytes Absolute Auto 0.7 K/mm3 (0.1-0.6); Monocytes Percent Auto 6.8 % (2.6-8.5); Neutrophils Absolute Auto 6.9 K/mm3 (1.3-6.7); Neutrophils Percent Auto 66.7 % (45.5-73.1); Platelet Count Result 274 k/mm3 (150-375); Red Blood Count 3.91 M/mm3 (4.2-5.4); Red Cell Distribution Width 12.9 % (11.5-14.5); White Blood Count 10.3 K/mm3 (4.5-10.0)
[2023-04-13 07:30] LABS: Alanine Aminotransferase 20 U/L (6-35); Albumin Level 3.7 g/dL (3.5-5.1); Alkaline Phosphatase 91 U/L (38-126); Anion Gap 7 mmol/L (8-16); Aspartate Amino Transferase 26 U/L (14-36); Bilirubin,Total 0.9 mg/dL (0.2-1.3); Blood Urea Nitrogen 15 mg/dL (7-17); Calcium 8.7 mg/dL (8.4-10.2); Carbon Dioxide 27 mmol/L (22-30); Chloride 94 mmol/L (98-107); Estimated Glomerular Filt Rate > 60; Glucose 117 mg/dL (65-110); Magnesium 1.6 mg/dL (1.6-2.3); Potassium 4.2 mmol/L (3.4-5.0); Sodium 128 mmol/L (137-145)
[2023-04-13] MEDS: FLUTICASONE/SALMETEROL 115-21 MCG INHALER 1 PUFF 2 PUFF INHALATION ×2 (07:36→19:50)
[2023-04-13 08:11] LABS: Glucose Point of Care 127 mg/dl (65-105)
[2023-04-13] MEDS: SPIRONOLACTONE 12.5 MG TABLET PO (09:22)
[2023-04-13] MEDS: ASPIRIN 81 MG ENTERIC TABLET PO (09:22)
[2023-04-13] MEDS: ACIDOPHILUS/BULGARICUS CHEWABLE TABLET 2 TABLET BY MOUTH (09:22)
[2023-04-13] MEDS: VALSARTAN 160 MG TABLET PO (09:22)
[2023-04-13] MEDS: MONTELUKAST SODIUM 10 MG TABLET PO (09:22)
[2023-04-13] MEDS: LORATADINE 10 MG TABLET PO (09:22)
[2023-04-13] MEDS: MAGNESIUM OXIDE 400 MG TABLET PO (09:22)
[2023-04-13] MEDS: PANTOPRAZOLE 40 MG TABLET PO (09:22)
[2023-04-13] MEDS: SODIUM CHLORIDE 1 GM TABLET PO ×2 (09:22→16:24)
[2023-04-13] MEDS: OPTI-GEN TAB 1 TABLET PO ×2 (09:23→16:24)
[2023-04-13] MEDS: busPIRone HCL 10 MG TABLET PO ×2 (09:23→16:24)
[2023-04-13] MEDS: NEBIVOLOL HCL 5 MG TABLET PO (09:23)
[2023-04-13] MEDS: dilTIAZem HCL CD 120 MG CAP.24HR PO (09:23)
[2023-04-13] MEDS: APIXABAN 5 MG TABLET PO ×2 (09:23→21:20)
[2023-04-13] MEDS: FAMOTIDINE 20 MG TABLET PO ×2 (09:23→21:20)
[2023-04-13] MEDS: FOLIC ACID 1 MG TABLET PO (09:23)
[2023-04-13] MEDS: FLUTICASONE PROPIONATE 0.05% NA SPR 16 GM BTL (*BKC) 1 SPRAY NASAL ×2 (09:31→16:25)
--- NOTE | 2023-04-13 09:36 | PM.IMPN ---
Progress Note: A&P Assessment and Plan (1) Uncontrolled hypertension: Code(s): I10 - Essential (primary) hypertension Status: Acute Assessment and Plan: -Admit to med tele -Restart home meds -Episode of HTN with anxiety and chest pain. SBP 200's/100's, HR 140's. Received nitro and morphine IVP with resolution of chest pain and improvement in SBP to 180s. Blood pressures are equal in both arms. Blood pressure now 134/53. -Patient has been following with Cardiology at [facility] it appears that she has been hospitalized multiple times for similar complaints. She has had a history of PCI without stent placement in [address] Pedraza. -Concerns for rebound HTN given her inconsistency with hydralazine vs anxiety vs less likely pheochromocytoma -Pheo labs pending -will get MRI of the adrenal glands -Consulted cardiology and recommendations are appreciated -Restarted Bystolic -hydralazine switched to valsartan (2) Postural dizziness with near syncope: Code(s): R42 - Dizziness and giddiness; R55 - Syncope and collapse Status: Acute Assessment and Plan: Likely secondary to uncontrolled hypertension CT head reviewed with no acute intracranial abnormality (3) Paroxysmal A-fib: Code(s): I48.0 - Paroxysmal atrial fibrillation Status: Acute Assessment and Plan: Rate controlled anticoagulated with eliquis -on telemetry ECHO from 03/17: Summary ? 1. Complete two-dimensional, color flow and Doppler transthoracic echocardiogram is performed. ? 2. Left ventricular chamber dimension is normal. ? 3. Left ventricular systolic function is normal, estimated at 65-70%. ? 4. There is no increased left ventricular wall thickness. ? 5. The left ventricular diastolic function is indeterminate. ? 6. Left atrial chamber dimension is mildly enlarged. ? 7. There is trace mitral valve regurgitation. ? 8. There is mild to moderate tricuspid valve regurgitation. ? 9. Mild pulmonary hypertension, estimated pulmonary arterial systolic pressure is 41 mmHg. (4) Gastroesophageal reflux disease: Qualifiers: Esophagitis presence: esophagitis presence not specified Qualified Code(s): K21.9 - Gastro-esophageal reflux disease without esophagitis Code(s): K21.9 - Gastro-esophageal reflux disease without esophagitis Status: Acute Assessment and Plan: PPI Large hiatal hernia on imaging (5) Obstructive sleep apnea: Code(s): G47.33 - Obstructive sleep apnea (adult) (pediatric) Status: Acute Assessment and Plan: She says she needs a sleep study per her PCP. Apnea link completed last night however the apnea monitor accidentally became disconnected. Repeat ApneaLink tonight (6) Coronary artery disease: Qualifiers: Associated angina: without angina Coronary Disease-Associated Artery/Lesion type: [place] artery [place] vs. transplanted heart: [place] heart Qualified Code(s): I25.10 - Atherosclerotic heart disease of [place] coronary artery without angina pectoris Code(s): I25.10 - Atherosclerotic heart disease of [place] coronary artery without angina pectoris Status: Acute Assessment and Plan: Continues to have recurrent episodes of chest pain with episodes of HTN and anxiety. Continue antilipid therapy and ASA (7) Degenerative joint disease involving multiple joints: Qualifiers: Osteoarthritis type: unspecified Qualified Code(s): M15.9 - Polyosteoarthritis, unspecified Code(s): M15.9 - Polyosteoarthritis, unspecified Status: Acute Assessment and Plan: Tylenol p.r.n. Continue home meds (8) Rheumatoid arthritis: Qualifiers: Laterality: bilateral Rheumatoid arthritis location: hand Rheumatoid factor presence: unspecified presence Qualified Code(s): M06.9 - Rheumatoid arthritis, unspecified Code(s): M06.9 - Rheumatoid arthritis, unspecified Status: Chronic Assessment and P
--- NOTE | 2023-04-13 10:23 | PM.PNCARD ---
Progress Note: A&P Assessment and Plan (1) Hypertension: Qualifiers: Hypertension type: unspecified Qualified Code(s): I10 - Essential (primary) hypertension Code(s): I10 - Essential (primary) hypertension Status: Chronic (2) Chronic pain syndrome: Code(s): G89.4 - Chronic pain syndrome Status: Acute Plan Longstanding hypertension which has been somewhat problematic to control. Reading seem to be much better however with the addition/resumption of her beta-xavier and shifting from hydralazine to Diovan. I am not going to suggest any additional changes in her hypertension regimen at this time. Set the expectation that she should be stable for discharge probably by tomorrow at less there are significant problems with her hypertension. Once again her anxiety and chronic pain syndrome as well as narcotic dependency has a lot to do with these problems as well. Gumaro Gasca MD [facility] Subjective Date/time seen: Date of service: 04/13/23 10:23 Interval history: Follow-up visit in this 78-year-old woman with: Coronary artery disease with previous PCI of the diagonal branch of her LAD, recent diagnosis of atrial fibrillation, currently in sinus rhythm. Significant chaotic hypertension requiring multi drug regimen. Patient has also chronic pain syndrome resulting in rather labile blood pressure. Admitted to the hospital again with symptomatic labile hypertension. Patient reports to be feeling better today she still says that she has episodes where her systolic pressure will rise into the 160-170 range and when she has that she feels weak and has chest pain. She says she had some of that again this morning. At this time she is resting comfortably and watching television. 04/13/2023: Patient is feeling better today. She has overall very good blood pressure readings in the chart on the current combination. She says that her blood pressure was elevated again last night but if so I do not see that charted. Exam Const: General: comfortable and no acute distress Other: Elderly white female appears to be anxious otherwise comfortable cooperative no distress at this time HENMT: Mouth: Yes moist mucous membranes Eyes: Sclera: sclerae normal Neck: Neck: supple and no JVD Resp: Effort & Inspection: normal respiratory effort Auscultation: clear to auscultation bilaterally Cardio: Rate: regular rate Rhythm: regular rhythm Other: First and second heart sounds are normal 4 heart sound is audible no murmur GI: Auscultation: normal bowel sounds Skin: General skin exam: normal color Neuro: Other: Alert and oriented x3 Extrem: Other: No edema, good distal pulses Objective Data Vital Signs Vital Signs: Vital Signs - 24 hr 04/12/23 11:40 04/12/23 12:00 04/12/23 15:11 Temperature 36.4 C L Pulse Rate 68 71 Respiratory Rate Blood Pressure 169/58 H Pulse Oximetry 98 Oxygen Delivery Nasal Cannula Oxygen Flow Rate 2 04/12/23 16:00 04/12/23 20:00 04/12/23 21:24 Temperature 36.7 C Pulse Rate 60 67 71 Respiratory Rate 18 Blood Pressure 199/54 H Pulse Oximetry 100 Oxygen Delivery Oxygen Flow Rate 04/12/23 22:07 04/13/23 00:00 04/12/23 21:20 Temperature Pulse Rate 67 Respiratory Rate Blood Pressure 140/53 L Pulse Oximetry 99 Oxygen Delivery Nasal Cannula Oxygen Flow Rate 0.5 04/13/23 04:00 04/13/23 06:00 04/13/23 09:23 Temperature 36.9 C Pulse Rate 63 71 86 Respiratory Rate 18 Blood Pressure 145/62 H Pulse Oximetry 95 Oxygen Delivery Oxygen Flow Rate Intake/Output Intake/Output: Intake & Output 04/10/23 04/11/23 04/12/23 04/13/23 23:59 23:59 23:59 23:59 Intake Total 1080 1070 120 Output Total 900 1000 Balance 1080 170 -650 Meds/Results Medications: Active Medications Generic Name Dose Route Start Last Admin Trade Name Freq PRN Reason Stop Dose
[2023-04-13 12:13] LABS: Glucose Point of Care 143 mg/dl (65-105)
--- NOTE | 2023-04-13 14:28 | PCPTNOTE ---
The patient treatment was not able to be completed due to patient out of room for MRI. Will plan to continue treatment per plan of care.
[2023-04-13] MEDS: TOLNAFTATE 1% POWDER 45 GM BTL 1 APPLIC TOPICAL ×2 (16:24→21:30)
[2023-04-13 16:50] LABS: Total Volume 24 Hour Urine 2200 ml
[2023-04-13 16:54] LABS: Creatinine 24 Hour Urine 0.8 gm/24 (0.8-1.8); Creatinine Urine 38.5 mg/dL
[2023-04-13 18:10] LABS: Glucose Point of Care 110 mg/dl (65-105)
[2023-04-13 20:05] LABS: Glucose Point of Care 195 mg/dl (65-105)
[2023-04-13] MEDS: ATORVASTATIN 40 MG TABLET PO (21:20)
[2023-04-14] VITALS (14 sets, daily range): BP systolic 114–208; BP diastolic 43–68; PULSE 56–100; RESP 18–20; TEMP 36.7; O2SAT 93–100
[2023-04-14] MEDS: oxyCODONE/ACETAMINOPHEN (*CRX) 10-325 MG TABLET 1 TAB PO ×3 (05:47→18:17)
[2023-04-14] MEDS: LEVOTHYROXINE SODIUM 88 MCG TABLET PO (05:48)
[2023-04-14 06:47] LABS: Basophils Absolute Auto 0.1 K/mm3 (0.0-0.1); Basophils Percent Auto 0.5 % (0.2-1.2); Eosinophils Absolute Auto 0.2 K/mm3 (0-0.3); Eosinophils Percent Auto 1.6 % (0-4.4); Hematocrit 34.2 % (37.0-47.0); Hemoglobin 11.4 g/dL (12.0-15.0); Immature Granulocyte Absolute 0.06 K/mm3 (0.00-0.031); Immature Granulocyte Percent A 0.6 % (0-0.5); Lymphocytes Absolute Auto 3.15 K/mm3 (0.9-3.2); Lymphocytes Percent Auto 30.6 % (18.3-44.2); Mean Corpuscular HGB Conc 33.3 g/dl (32-36); Mean Corpuscular Hemoglobin 29.2 pg (26-34); Mean Corpuscular Volume 87.5 fl (80-100); Mean Platelet Volume 9.4 fl (7.4-10.4); Monocytes Absolute Auto 0.7 K/mm3 (0.1-0.6); Monocytes Percent Auto 6.5 % (2.6-8.5); Neutrophils Absolute Auto 6.2 K/mm3 (1.3-6.7); Neutrophils Percent Auto 60.2 % (45.5-73.1); Platelet Count Result 291 k/mm3 (150-375); Red Blood Count 3.91 M/mm3 (4.2-5.4); Red Cell Distribution Width 12.7 % (11.5-14.5); White Blood Count 10.3 K/mm3 (4.5-10.0)
[2023-04-14] MEDS: FLUTICASONE/SALMETEROL 115-21 MCG INHALER 1 PUFF 2 PUFF INHALATION ×2 (06:53→20:00)
[2023-04-14 07:20] LABS: Alanine Aminotransferase 20 U/L (6-35); Albumin Level 4.1 g/dL (3.5-5.1); Alkaline Phosphatase 86 U/L (38-126); Anion Gap 15 mmol/L (8-16); Aspartate Amino Transferase 34 U/L (14-36); Bilirubin,Total 0.9 mg/dL (0.2-1.3); Blood Urea Nitrogen 16 mg/dL (7-17); Calcium 8.6 mg/dL (8.4-10.2); Carbon Dioxide 21 mmol/L (22-30); Chloride 93 mmol/L (98-107); Estimated Glomerular Filt Rate > 60; Glucose 117 mg/dL (65-110); Potassium 4.5 mmol/L (3.4-5.0); Sodium 129 mmol/L (137-145)
[2023-04-14 08:07] LABS: Glucose Point of Care 124 mg/dl (65-105)
[2023-04-14] MEDS: NEBIVOLOL HCL 5 MG TABLET PO (08:21)
[2023-04-14] MEDS: PANTOPRAZOLE 40 MG TABLET PO (08:21)
[2023-04-14] MEDS: FAMOTIDINE 20 MG TABLET PO ×2 (08:21→22:01)
[2023-04-14] MEDS: VALSARTAN 160 MG TABLET PO (08:21)
[2023-04-14] MEDS: MONTELUKAST SODIUM 10 MG TABLET PO (08:21)
[2023-04-14] MEDS: APIXABAN 5 MG TABLET PO ×2 (08:21→22:01)
[2023-04-14] MEDS: SODIUM CHLORIDE 1 GM TABLET PO ×2 (08:21→17:50)
[2023-04-14] MEDS: busPIRone HCL 10 MG TABLET PO ×2 (08:21→17:50)
[2023-04-14] MEDS: dilTIAZem HCL CD 120 MG CAP.24HR PO (08:21)
[2023-04-14] MEDS: ASPIRIN 81 MG ENTERIC TABLET PO (08:21)
[2023-04-14] MEDS: SPIRONOLACTONE 12.5 MG TABLET PO (08:21)
[2023-04-14] MEDS: MAGNESIUM OXIDE 400 MG TABLET PO (08:21)
[2023-04-14] MEDS: FOLIC ACID 1 MG TABLET PO (08:22)
[2023-04-14] MEDS: ACIDOPHILUS/BULGARICUS CHEWABLE TABLET 2 TABLET BY MOUTH (08:22)
[2023-04-14] MEDS: OPTI-GEN TAB 1 TABLET PO ×2 (08:22→17:50)
[2023-04-14] MEDS: LORATADINE 10 MG TABLET PO (08:22)
[2023-04-14] MEDS: FLUTICASONE PROPIONATE 0.05% NA SPR 16 GM BTL (*BKC) 1 SPRAY NASAL ×2 (08:23→17:51)
[2023-04-14] MEDS: TOLNAFTATE 1% POWDER 45 GM BTL 1 APPLIC TOPICAL ×2 (08:23→22:04)
--- NOTE | 2023-04-14 09:12 | PM.IMPN ---
Progress Note: A&P Assessment and Plan (1) Uncontrolled hypertension: Code(s): I10 - Essential (primary) hypertension Status: Acute Assessment and Plan: -Admit to med tele -Restart home meds -Episode of HTN with anxiety and chest pain. SBP 200's/100's, HR 140's. Received nitro and morphine IVP with resolution of chest pain and improvement in SBP to 180s. Blood pressures are equal in both arms. Blood pressure now 134/53. -Patient has been following with Cardiology at [facility] it appears that she has been hospitalized multiple times for similar complaints. She has had a history of PCI without stent placement in [address] Pedraza. -Concerns for rebound HTN given her inconsistency with hydralazine vs anxiety vs less likely pheochromocytoma -Pheo labs pending -will get MRI of the adrenal glands -Consulted cardiology and recommendations are appreciated -Restarted Bystolic -hydralazine switched to valsartan (2) Postural dizziness with near syncope: Code(s): R42 - Dizziness and giddiness; R55 - Syncope and collapse Status: Acute Assessment and Plan: Likely secondary to uncontrolled hypertension CT head reviewed with no acute intracranial abnormality (3) Paroxysmal A-fib: Code(s): I48.0 - Paroxysmal atrial fibrillation Status: Acute Assessment and Plan: Rate controlled anticoagulated with eliquis -on telemetry ECHO from 03/17: Summary ? 1. Complete two-dimensional, color flow and Doppler transthoracic echocardiogram is performed. ? 2. Left ventricular chamber dimension is normal. ? 3. Left ventricular systolic function is normal, estimated at 65-70%. ? 4. There is no increased left ventricular wall thickness. ? 5. The left ventricular diastolic function is indeterminate. ? 6. Left atrial chamber dimension is mildly enlarged. ? 7. There is trace mitral valve regurgitation. ? 8. There is mild to moderate tricuspid valve regurgitation. ? 9. Mild pulmonary hypertension, estimated pulmonary arterial systolic pressure is 41 mmHg. (4) Gastroesophageal reflux disease: Qualifiers: Esophagitis presence: esophagitis presence not specified Qualified Code(s): K21.9 - Gastro-esophageal reflux disease without esophagitis Code(s): K21.9 - Gastro-esophageal reflux disease without esophagitis Status: Acute Assessment and Plan: PPI Large hiatal hernia on imaging (5) Obstructive sleep apnea: Code(s): G47.33 - Obstructive sleep apnea (adult) (pediatric) Status: Acute Assessment and Plan: She says she needs a sleep study per her PCP. Apnea link completed last night however the apnea monitor accidentally became disconnected. Repeat ApneaLink tonight (6) Coronary artery disease: Qualifiers: Associated angina: without angina Coronary Disease-Associated Artery/Lesion type: [place] artery [place] vs. transplanted heart: [place] heart Qualified Code(s): I25.10 - Atherosclerotic heart disease of [place] coronary artery without angina pectoris Code(s): I25.10 - Atherosclerotic heart disease of [place] coronary artery without angina pectoris Status: Acute Assessment and Plan: Continues to have recurrent episodes of chest pain with episodes of HTN and anxiety. Continue antilipid therapy and ASA (7) Degenerative joint disease involving multiple joints: Qualifiers: Osteoarthritis type: unspecified Qualified Code(s): M15.9 - Polyosteoarthritis, unspecified Code(s): M15.9 - Polyosteoarthritis, unspecified Status: Acute Assessment and Plan: Tylenol p.r.n. Continue home meds (8) Rheumatoid arthritis: Qualifiers: Laterality: bilateral Rheumatoid arthritis location: hand Rheumatoid factor presence: unspecified presence Qualified Code(s): M06.9 - Rheumatoid arthritis, unspecified Code(s): M06.9 - Rheumatoid arthritis, unspecified Status: Chronic Assessment and P
[2023-04-14 12:17] LABS: Glucose Point of Care 122 mg/dl (65-105)
--- NOTE | 2023-04-14 13:58 | PC.NURSE ---
Patient ambulated to bathroom with CGA and on RA during morning assessment and medication administration. I called central supply, spoke with the decontamination technician restocking the supply Juan A, and with another RN on the floor and no one had heard of [employer]. It is a wonderful product and patients would benefit from the hospital carrying it.
--- NOTE | 2023-04-14 15:08 | PCRCNOTE ---
HOME O2 EVAL COMPLETE. PATIENT DOES NOT REQUIRE HOME O2 AT THIS TIME. RN NOTIFIED.
--- NOTE | 2023-04-14 16:58 | PM.DS ---
DS: Admitting Diagnosis Discharge Date April 15Friday Admitting Diagnosis Chronic pain syndrome DS: Discharge Diagnosis Discharge Diagnosis (1) Uncontrolled hypertension: Code(s): I10 - Essential (primary) hypertension Status: Acute Assessment and Plan: -Admit to med tele -Restart home meds -Episode of HTN with anxiety and chest pain. SBP 200's/100's, HR 140's. Received nitro and morphine IVP with resolution of chest pain and improvement in SBP to 180s. Blood pressures are equal in both arms. Blood pressure now 134/53. -Patient has been following with Cardiology at [facility] it appears that she has been hospitalized multiple times for similar complaints. She has had a history of PCI without stent placement in [address] Pedraza. -Concerns for rebound HTN given her inconsistency with hydralazine vs anxiety vs less likely pheochromocytoma -Pheo labs pending -will get MRI of the adrenal glands -Consulted cardiology and recommendations are appreciated -Restarted Bystolic -hydralazine switched to valsartan (2) Postural dizziness with near syncope: Code(s): R42 - Dizziness and giddiness; R55 - Syncope and collapse Status: Acute Assessment and Plan: Likely secondary to uncontrolled hypertension CT head reviewed with no acute intracranial abnormality (3) Paroxysmal A-fib: Code(s): I48.0 - Paroxysmal atrial fibrillation Status: Acute Assessment and Plan: Rate controlled anticoagulated with eliquis -on telemetry ECHO from 03/17: Summary ? 1. Complete two-dimensional, color flow and Doppler transthoracic echocardiogram is performed. ? 2. Left ventricular chamber dimension is normal. ? 3. Left ventricular systolic function is normal, estimated at 65-70%. ? 4. There is no increased left ventricular wall thickness. ? 5. The left ventricular diastolic function is indeterminate. ? 6. Left atrial chamber dimension is mildly enlarged. ? 7. There is trace mitral valve regurgitation. ? 8. There is mild to moderate tricuspid valve regurgitation. ? 9. Mild pulmonary hypertension, estimated pulmonary arterial systolic pressure is 41 mmHg. (4) Gastroesophageal reflux disease: Qualifiers: Esophagitis presence: esophagitis presence not specified Qualified Code(s): K21.9 - Gastro-esophageal reflux disease without esophagitis Code(s): K21.9 - Gastro-esophageal reflux disease without esophagitis Status: Acute Assessment and Plan: PPI Large hiatal hernia on imaging (5) Obstructive sleep apnea: Code(s): G47.33 - Obstructive sleep apnea (adult) (pediatric) Status: Acute Assessment and Plan: She says she needs a sleep study per her PCP. Apnea link completed last night however the apnea monitor accidentally became disconnected. Repeat ApneaLink tonight (6) Coronary artery disease: Qualifiers: Associated angina: without angina Coronary Disease-Associated Artery/Lesion type: [place] artery [place] vs. transplanted heart: [place] heart Qualified Code(s): I25.10 - Atherosclerotic heart disease of [place] coronary artery without angina pectoris Code(s): I25.10 - Atherosclerotic heart disease of [place] coronary artery without angina pectoris Status: Acute Assessment and Plan: Continues to have recurrent episodes of chest pain with episodes of HTN and anxiety. Continue antilipid therapy and ASA (7) Degenerative joint disease involving multiple joints: Qualifiers: Osteoarthritis type: unspecified Qualified Code(s): M15.9 - Polyosteoarthritis, unspecified Code(s): M15.9 - Polyosteoarthritis, unspecified Status: Acute Assessment and Plan: Tylenol p.r.n. Continue home meds (8) Rheumatoid arthritis: Qualifiers: Laterality: bilateral Rheumatoid arthritis location: hand Rheumatoid factor presence: unspecified presence Qualified Code(s): M06.9 - Rheumatoid arthritis, unsp
[2023-04-14 17:22] LABS: Glucose Point of Care 91 mg/dl (65-105)
[2023-04-14] MEDS: LIDOCAINE 5% PATCH 1 PATCH TRANSDERM (17:50)
[2023-04-14] MEDS: LOPERAMIDE HCL 2 MG CAPSULE PO (17:50)
[2023-04-14 20:24] LABS: Glucose Point of Care 97 mg/dl (65-105)
[2023-04-14] MEDS: ATORVASTATIN 40 MG TABLET PO (22:01)
[2023-04-14] MEDS: hydrALAZINE HCL 20 MG/ML VIAL IV PUSH (22:01)
[2023-04-15] VITALS (8 sets, daily range): BP systolic 138–151; BP diastolic 61–71; PULSE 61–68; RESP 18; TEMP 36.7–37.5; O2SAT 95–98
[2023-04-15] MEDS: oxyCODONE/ACETAMINOPHEN (*CRX) 10-325 MG TABLET 1 TAB PO ×3 (02:06→14:25)
[2023-04-15] MEDS: LEVOTHYROXINE SODIUM 88 MCG TABLET PO (05:35)
[2023-04-15] MEDS: LIDOCAINE 5% PATCH 1 PATCH TRANSDERM (08:04)
[2023-04-15] MEDS: FLUTICASONE PROPIONATE 0.05% NA SPR 16 GM BTL (*BKC) 1 SPRAY NASAL (08:04)
[2023-04-15 08:06] LABS: Glucose Point of Care 109 mg/dl (65-105)
[2023-04-15] MEDS: dilTIAZem HCL CD 120 MG CAP.24HR PO (08:09)
[2023-04-15] MEDS: LOPERAMIDE HCL 2 MG CAPSULE PO (08:09)
[2023-04-15] MEDS: busPIRone HCL 10 MG TABLET PO (08:09)
[2023-04-15] MEDS: VALSARTAN 160 MG TABLET PO (08:09)
[2023-04-15] MEDS: NEBIVOLOL HCL 5 MG TABLET PO (08:10)
[2023-04-15] MEDS: LORATADINE 10 MG TABLET PO (08:10)
[2023-04-15] MEDS: SODIUM CHLORIDE 1 GM TABLET PO (08:10)
[2023-04-15] MEDS: OPTI-GEN TAB 1 TABLET PO (08:10)
[2023-04-15] MEDS: APIXABAN 5 MG TABLET PO (08:10)
[2023-04-15] MEDS: FOLIC ACID 1 MG TABLET PO (08:10)
[2023-04-15] MEDS: FAMOTIDINE 20 MG TABLET PO (08:10)
[2023-04-15] MEDS: SPIRONOLACTONE 12.5 MG TABLET PO (08:10)
[2023-04-15] MEDS: ACIDOPHILUS/BULGARICUS CHEWABLE TABLET 2 TABLET BY MOUTH (08:10)
[2023-04-15] MEDS: ASPIRIN 81 MG ENTERIC TABLET PO (08:10)
[2023-04-15] MEDS: MONTELUKAST SODIUM 10 MG TABLET PO (08:11)
[2023-04-15] MEDS: PANTOPRAZOLE 40 MG TABLET PO (08:11)
[2023-04-15] MEDS: TOLNAFTATE 1% POWDER 45 GM BTL 1 APPLIC TOPICAL (08:11)
[2023-04-15] MEDS: MAGNESIUM OXIDE 400 MG TABLET PO (08:11)
[2023-04-15] MEDS: FLUTICASONE/SALMETEROL 115-21 MCG INHALER 1 PUFF 2 PUFF INHALATION (08:57)
[2023-04-15 12:33] LABS: Glucose Point of Care 132 mg/dl (65-105)
[2023-04-17 12:29] LABS: Metanephrine, Free <25 pg/mL (<=57); Normetanephrine, Free 104 pg/mL (<=148); Total, Free (MN + NMN) 104 pg/mL (<=205)
[2023-04-18 16:53] LABS: Calculated Total (E+NE) 20 mcg/24 h (26-121); Dopamine, 24hr Urine 146 mcg/24 h (52-480); Norepinephrine, 24hr Urine 20 mcg/24 h (15-100)
== END 2023-04-15 16:10 | disposition home or self-care (01) | DRG 292 ==
LOC: ANHED 18:57 → ANH3MED 22:07
PROVIDERS: Admitting Provider Internal Medicine; Emergency Provider Emergency Medicine; PCP Family Medicine; Visit Provider Nurse Practitioner Acute Care
DX: I11.0 Hypertensive heart disease with heart failure (principal); E87.1 Hypo-osmolality and hyponatremia; R55 Syncope and collapse; R42 Dizziness and giddiness; I48.0 Paroxysmal atrial fibrillation; K21.9 Gastro-esophageal reflux disease without esophagitis; G47.33 Obstructive sleep apnea (adult) (pediatric); I50.9 Heart failure, unspecified; I25.10 Atherosclerotic heart disease of native coronary artery without angina pectoris; F41.9 Anxiety disorder, unspecified; M15.9 Polyosteoarthritis, unspecified; M06.9 Rheumatoid arthritis, unspecified; E11.42 Type 2 diabetes mellitus with diabetic polyneuropathy; K44.9 Diaphragmatic hernia without obstruction or gangrene; E03.9 Hypothyroidism, unspecified; K58.9 Irritable bowel syndrome, unspecified; G89.4 Chronic pain syndrome; E78.5 Hyperlipidemia, unspecified; Z79.01 Long term (current) use of anticoagulants; Z79.82 Long term (current) use of aspirin; Z86.718 Personal history of other venous thrombosis and embolism; Z91.199 Patient's noncompliance with other medical treatment and regimen due to unspecified reason; Z87.11 Personal history of peptic ulcer disease; Z90.49 Acquired absence of other specified parts of digestive tract; Z90.710 Acquired absence of both cervix and uterus
CPT/HCPCS: 36415; 70450; 71045; 71275; 74175; 74183; 80053; 81050; 82384; 82570; 82948; 83036; 83690; 83735; 83835; 84484; 85025; 85610; 85730; 93005; 94640; 94762; 96374; 96375; 97110; 97116; 97162; 97165; 97530; 97535; 99285; A9270; A9577; G0378; J0360; J1170; J2270; J2405; J7030; Q9967

== ENCOUNTER 2023-04-21 11:58 | Inpatient (IN) | payer MEDICARE, BC, SELFPAY ==
[2023-04-21] VITALS (31 sets, daily range): BP systolic 143–196; BP diastolic 45–83; PULSE 45–60; RESP 9–20; TEMP 36.2–37; O2SAT 96–100
--- NOTE | ~2023-04-21 | CT_ITS ---
EXAMINATION: CT brain wo con DATE: 04/21/2023 13:54 INDICATION: Headache. Vision change. TECHNIQUE: Computed tomography (CT) of the head was performed without intravenous contrast. The mA wa s adjusted according to patient size. Iterative reconstruction technique was employed. The dose-lengt h product was 605.33 mGy-cm. COMPARISON: Head CT 04/10/2023 FINDINGS: There is no intracranial hemorrhage, acute infarction, or abnormal intracranial mass lesion . The ventricles are normal in size. There are likely changes of ocular lens replacement surgeries. T here is a trace left mastoid effusion. There is mild mucosal thickening in the ethmoid sinuses. IMPRESSION: 1. Normal brain. Reviewed, dictated and finalized at location A. IMPRESSION: 1. Normal brain.
--- NOTE | ~2023-04-21 | CT_ITS ---
EXAMINATION: CT diagnostic chest w con DATE: 04/21/2023 17:40 INDICATION: dyspnea TECHNIQUE: Computed tomography (CT) of the chest was performed with 70 mL Omnipaque 350 intravenous contrast. Automated exposure control and iterative reconstruction technique were employed. The dose-l ength product was 174.72 mGy-cm. COMPARISON: x-ray chest, same date, CTPA 04/10/2023, CT chest abdomen pelvis 10/23/2022. FINDINGS: CHEST: Thoracic aorta: Mild ectasia. Moderate atherosclerotic calcifications. Lung parenchyma and airways: Scattered, ill-defined areas of groundglass and centrilobular nodular op acities with associated reticular opacities in the left upper and left lower lobes. Bibasilar scar. Thoracic inlet, axillae and chest wall: No thyroid or soft tissue mass. No axillary lymphadenopathy. Mediastinum: No mass or lymphadenopathy. Large hiatal hernia. Heart and pericardium: Mild cardiomegaly. No pericardial effusion. Coronary artery calcifications: Mild. Pleura: No effusion or mass. Upper abdomen: Right liver lobe and splenic cysts or hemangiomas. Thoracic bones: No acute osseous finding in the chest. IMPRESSION: Pulmonary opacities in the left upper and lower lobes may reflect atypical infection or infectious ai rways disease, possibly with a component of aspiration. Reviewed, dictated and finalized at location K. IMPRESSION: Pulmonary opacities in the left upper and lower lobes may reflect atypical infe ction or infectious airways disease, possibly with a component of aspiration.
--- NOTE | ~2023-04-21 | XR_ITS ---
EXAMINATION: XR chest 1V portable Exam Date/Time: 04/21/2023 14:30 CDT HISTORY: ELEVATED BP, CHEST PAIN, PRESSURE IN HEAD Comparison: 04/10/2023. RESULT: Lines, tubes, and devices: None. Lungs and pleura: Increased diffuse interstitial opacities. Ill-defined/somewhat rounded 2.3 cm opac ity in the right midlung, new in the last week and a half. Cardiomediastinal silhouette: Stable. Hiatal hernia. Right atrial enlargement. Other: No acute osseous or upper abdominal finding. IMPRESSION: Ill-defined focus of infection, edema, or atelectasis in the right mid lung. Mild interstitial edema. Reviewed, dictated and finalized at location K.
--- NOTE | 2023-04-21 12:33 | ECG_ITS ---
Measurements Intervals [place] Rate: 43 P: 56 UT: 195 QRS: -24 QRSD: 86 T: 6 QT: 442 QTc: 375 Interpretive Statements SINUS BRADYCARDIA BORDERLINE LEFT AXIS DEVIATION [QRS AXIS < -20] VOLTAGE CRITERIA FOR LVH [MEETS CRITERIA IN ONE OF: R(aVL), S(V1), R(V5), R(V5/V6)+S(V1)] ABNORMAL ECG COMPARED TO ECG 04/11/2023 10:23:24 HEART RATE IS NOW REDUCED, NO OTHER CHANGE Electronically Signed On 04-21-2023 14:09:45 CDT by Gumaro Gasca M.D.
--- NOTE | 2023-04-21 13:28 | PC.NURSE ---
Pt states that she believes she has a sinus infection. States she used to get them yearly and states that her symptoms or headache, pressure in the ears and face. States that she also feels slightly off balance due to the pressure in her ears. States that she is still unsure why she had excessively high blood pressures.
--- NOTE | 2023-04-21 13:52 | ED.CHESTPAIN ---
HPI - Chest Pain General Chief Complaint: Recheck/Abnormal Lab/Rx Stated Complaint: elevated BP Time Seen by Provider: 04/21/23 12:46 History of Present Illness HPI narrative: Pt had a mild VARGAS and some mild CP this morning and took BP and SBP was over 200. Pt took asa and nitro sl and pressure still elevated so came to ER. Pt aslo thinks she has sinus infection because her VARGAS is over her sinuses. Pt denies numbness or wekaness. Related Data Home Medications Medication Instructions Recorded Confirmed aspirin 81 mg tablet,delayed 81 mg PO DAILY 07/29/19 04/21/23 release (Adult Low Dose Aspirin) nitroglycerin 0.4 mg sublingual 0.4 mg sublingual Q5M PRN Chest 07/29/19 04/21/23 tablet Pain vitamins A,C,J-gctt-cekjga 4,296 1 cap PO BID 07/19/22 04/21/23 mcg-226 mg-90 mg capsule (PreserVision AREDS) spironolactone 25 mg tablet 12.5 mg PO DAILY 10/23/22 04/21/23 tetrahydrozoline 0.05 % eye drops 1 drp EACH EYE DAILY PRN Itching 10/23/22 04/21/23 cetirizine 10 mg capsule 10 mg PO DAILY 03/15/23 04/21/23 ezetimibe 10 mg tablet 10 mg PO DAILY 03/15/23 04/21/23 folic acid 1 mg tablet 1 mg PO DAILY 03/15/23 04/21/23 Lactobacillus rhamnosus GG 10 1 cap PO .QD 04/01/23 04/21/23 billion cell-inulin 200 mg capsule ([facility]) fluticasone propionate 50 1 spray intranasal BID 04/01/23 04/21/23 mcg/actuation nasal spray,suspension (Flonase Allergy Relief) Allergies Allergy/AdvReac Type Severity Reaction Status Date / Time No Known Allergies Allergy Verified 04/21/23 12:22 Review of Systems Review of Systems: All systems reviewed & are unremarkable except as noted in HPI and below PMFSH Past Medical History Medical History Anxiety Asthma Chronic hyponatremia Chronic pain syndrome Chronic, continuous use of opioids Coronary artery disease Angioplasty of a diagonal lesion in 01/2018. Cardiac catheterization 06/2019 showed patent coronary arteries. Deep venous thrombosis Degenerative joint disease involving multiple joints Depression Gastroesophageal reflux disease Heart failure with preserved ejection fraction Hiatal hernia Hyperlipidemia Hypertension Hypothyroidism Irritable bowel syndrome Obstructive sleep apnea Noncompliant with CPAP. Paroxysmal A-fib Peptic ulcer Peripheral neuropathy Rheumatoid arthritis Seasonal allergies Type 2 diabetes mellitus without complications Diet-controlled. Hemoglobin A1c was 5.7% on 01/24/2021. Surgical History Surgical History History of appendectomy History of arthroscopy of both shoulders History of cardiac catheterization Angioplasty of a diagonal stenosis 01/2018. Cardiac catheterization 06/2019 showed patent coronary arteries. History of carpal tunnel release History of cholecystectomy History of foot surgery History of hysterectomy History of phacoemulsification of cataract with intraocular lens implantation Family History Family History Grandparent Diabetes mellitus Father Acute myocardial infarction Diabetes mellitus Hypertension Mother Hypertension Diabetes mellitus Sibling Diabetes mellitus Hypertension Other Family history of cardiovascular disease Family history of malignant neoplasm of brain Social History Social History Social History: The patient lives in [place]. Her recently passed. 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 Lifelong nonsmoker. No alcohol or illicit substance abuse. She designates her daughter, Monse Cleaning, as her surrogate decision maker and she wishes to be a full code. Smoking status: Never smoker Alcohol intake: unknown Substance use: unknown Substance use type: does not use Lack of Transportation: YES Lack of Food: Andre
[2023-04-21 13:55] LABS: Basophils Absolute Auto 0.1 K/mm3 (0.0-0.1); Basophils Percent Auto 0.4 % (0.2-1.2); Eosinophils Absolute Auto 0.2 K/mm3 (0-0.3); Eosinophils Percent Auto 1.3 % (0-4.4); Hematocrit 33.8 % (37.0-47.0); Hemoglobin 11.4 g/dL (12.0-15.0); Immature Granulocyte Absolute 0.04 K/mm3 (0.00-0.031); Immature Granulocyte Percent A 0.3 % (0-0.5); Lymphocytes Absolute Auto 2.85 K/mm3 (0.9-3.2); Lymphocytes Percent Auto 23.2 % (18.3-44.2); Mean Corpuscular HGB Conc 33.7 g/dl (32-36); Mean Corpuscular Hemoglobin 28.9 pg (26-34); Mean Corpuscular Volume 85.8 fl (80-100); Mean Platelet Volume 10.7 fl (7.4-10.4); Monocytes Absolute Auto 0.8 K/mm3 (0.1-0.6); Monocytes Percent Auto 6.4 % (2.6-8.5); Neutrophils Absolute Auto 8.4 K/mm3 (1.3-6.7); Neutrophils Percent Auto 68.4 % (45.5-73.1); Platelet Count Result 339 k/mm3 (150-375); Red Blood Count 3.94 M/mm3 (4.2-5.4); Red Cell Distribution Width 12.5 % (11.5-14.5); White Blood Count 12.3 K/mm3 (4.5-10.0)
[2023-04-21 14:07] LABS: INR 1.4; Prothrombin Time 17.8 Seconds (11.1-14.7)
[2023-04-21 14:08] LABS: Partial Thromboplastin Time 34.3 SECONDS (22.3-36.8)
[2023-04-21 14:09] LABS: Alanine Aminotransferase 18 U/L (6-35); Albumin Level 3.9 g/dL (3.5-5.1); Alkaline Phosphatase 107 U/L (38-126); Anion Gap 5 mmol/L (8-16); Aspartate Amino Transferase 25 U/L (14-36); Bilirubin,Total 0.6 mg/dL (0.2-1.3); Blood Urea Nitrogen 10 mg/dL (7-17); Calcium 8.6 mg/dL (8.4-10.2); Carbon Dioxide 26 mmol/L (22-30); Chloride 94 mmol/L (98-107); Estimated Glomerular Filt Rate > 60; Glucose 130 mg/dL (65-110); Potassium 4.2 mmol/L (3.4-5.0); Sodium 125 mmol/L (137-145)
[2023-04-21 14:20] LABS: NT Pro B Type Natriuretic Pept 783 pg/mL (19.9-100); Troponin I < 0.012 ng/mL (0.000-0.034)
[2023-04-21] MEDS: SODIUM CHLORIDE 0.9% IV 1,000 ML 125 ML IV CONT (16:27)
[2023-04-21] MEDS: HYDROcodone/acetaminophen (*CRX) 10-325 MG TABLET 1 TAB PO (17:05)
--- NOTE | 2023-04-21 18:10 | ADMGEN ---
This patient, Aracely Spear, was admitted to IMU Room 211-01. Patient/family oriented to hospital policies and general routines including ID bracelet, bed and alarms, visiting hours, pain management, procedures, bathroom and other care routines, personal items, smoking policy, room service/diet, and visiting hours. Information on how to activate the Rapid Response Team has been discussed. Patient/Family are encouraged to report perceived risks to care and to ask questions if they do not understand what they are told or what they should do.
--- NOTE | 2023-04-21 21:18 | PM.IMHP ---
H&P: HPI History of Present Illness Date/Time: 04/21/23 21:18 Chief Complaint: Elevated blood pressure Narrative: This is an 78-year-old female patient who came in with a mild headache and complains of mild chest pain. The patient stated that she feels like her heart rate is beating fast. However she stated that she checked her blood pressure systolic blood pressure was over 200. Her blood pressure remained elevated so she came to the emergency room. The patient stated that she is having some sinus congestion. No fever chills. Her white count is 12.3. Her H&H is 11.4 and 33.8. H&H is at her baseline. Her sodium was found to be low at 125. However previously her H&H was 129 and 128. The patient stated that she was told to drink more water. She states that she only drinks two 8 out glasses a day. Her BNP is only 783. The patient does continue to take diuretics. Chest x-ray was read as ill-defined focus on infection edema or atelectasis in the right midlung zone. Mild interstitial edema. Patient's chest CT was read as pulmonary opacities in the left upper and lower lungs which may represent atypical infection or infectious airways disease possibly with a component of aspiration. The patient stated she has not been choking. She states that she has been drinking without difficulty. Head CT was read as normal brain. Her heart rate was noted to be anywhere 30-50 beats per minute. The patient is being admitted to observation status on the date of service of 04/21/2023. Review of Systems Review of Systems: All systems reviewed & are unremarkable except as noted in HPI and below Constitutional: Constitutional: Reports as per HPI and Reports no additional constitutional complaints Eyes: Eyes: Reports as per HPI and Reports no additional eye complaints ENT: Reports system reviewed and no additional complaints, except as documented and Reports Normal hearing present Cardiovascular: Cardiovascular: Reports no additional cardiovascular complaints Respiratory: Respiratory: Reports no additional respiratory complaints and Reports no additional respiratory complaints Gastrointestinal: Gastrointestinal: Reports as per HPI and Reports no additional gastrointestinal complaints Musculoskeletal: Musculoskeletal: Reports no additional musculoskeletal complaints Integumentary/Breasts: Skin/Breast: Reports system reviewed and no additional complaints, except as docu and Reports as per HPI Neurologic: Reports system reviewed and no additional complaints, except as documented, Reports as per HPI and Reports Normal hearing present Psychiatric: Psychiatric: Reports no additional psychiatric complaints and Reports as per HPI Endocrine: Endocrine: Reports no additional endocrine complaints Hematologic/Lymphatic: Hematologic/Lymphatic: Reports no additional hematologic/lymphatic complaints Allergic/Immunologic: Allergic/Immunologic: Reports no additional allergic/immunologic complaints [facility] Past Medical History Medical History (Updated 04/22/23 @ 00:23 by Juany Aguilera NP) Anxiety Asthma Chronic hyponatremia Chronic pain syndrome Chronic, continuous use of opioids Coronary artery disease Angioplasty of a diagonal lesion in 01/2018. Cardiac catheterization 06/2019 showed patent coronary arteries. Deep venous thrombosis Degenerative joint disease involving multiple joints Depression Gastroesophageal reflux disease Heart failure with preserved ejection fraction Hiatal hernia Hyperlipidemia Hypertension Hypothyroidism Irritable bowel syndrome Obstructive sleep apnea Noncompliant with CPAP. Paroxysmal A-fib Peptic ulcer Peripheral neuropathy Pneumonia Rheumatoid arthritis Seasonal allergies Type 2 diabetes mellitus without complications Diet-controlled. Hemoglobin A1c was 5.7% on 01/24/2021. Surgical History Surgical History (Updated 04/22/23 @ 00:15 by Juany Aguilera NP) History of appendectomy History of arthroscopy
[2023-04-22] VITALS (25 sets, daily range): BP systolic 153–180; BP diastolic 51–75; PULSE 47–80; RESP 16–20; TEMP 36.1–37.7; O2SAT 96–99
[2023-04-22] MEDS: SODIUM CHLORIDE 0.9% IV 1,000 ML 50 ML IV CONT (00:19)
[2023-04-22] MEDS: oxyCODONE/ACETAMINOPHEN (*CRX) 10-325 MG TABLET 1 TAB PO ×4 (00:44→18:15)
[2023-04-22 00:49] LABS: Anion Gap 8 mmol/L (8-16); Blood Urea Nitrogen 8 mg/dL (7-17); Calcium 8.7 mg/dL (8.4-10.2); Carbon Dioxide 25 mmol/L (22-30); Chloride 101 mmol/L (98-107); Estimated Glomerular Filt Rate > 60; Glucose 84 mg/dL (65-110); Magnesium 1.5 mg/dL (1.6-2.3); Potassium 3.8 mmol/L (3.4-5.0); Sodium 134 mmol/L (137-145)
[2023-04-22] MEDS: IPRATROPIUM BR 0.02% INH SOLN 0.5 MG/2.5 ML VIAL INHALATION ×4 (02:44→19:57)
[2023-04-22] MEDS: ALBUTEROL SULFATE NEB 2.5 MG/3 ML INH INHALATION ×4 (02:44→19:57)
[2023-04-22] MEDS: AZITHROMYCIN 500 MG/NS 250 ML 500 MG/250 ML BAG 250 MG IVPB (02:51)
[2023-04-22 02:53] LABS: Basophils Absolute Auto 0.1 K/mm3 (0.0-0.1); Basophils Percent Auto 0.6 % (0.2-1.2); Eosinophils Absolute Auto 0.1 K/mm3 (0-0.3); Eosinophils Percent Auto 1.4 % (0-4.4); Hematocrit 31.2 % (37.0-47.0); Hemoglobin 10.5 g/dL (12.0-15.0); Immature Granulocyte Absolute 0.03 K/mm3 (0.00-0.031); Immature Granulocyte Percent A 0.3 % (0-0.5); Lymphocytes Absolute Auto 2.75 K/mm3 (0.9-3.2); Lymphocytes Percent Auto 26.8 % (18.3-44.2); Mean Corpuscular HGB Conc 33.7 g/dl (32-36); Mean Corpuscular Hemoglobin 29.7 pg (26-34); Mean Corpuscular Volume 88.1 fl (80-100); Mean Platelet Volume 9.9 fl (7.4-10.4); Monocytes Absolute Auto 0.7 K/mm3 (0.1-0.6); Monocytes Percent Auto 6.8 % (2.6-8.5); Neutrophils Absolute Auto 6.6 K/mm3 (1.3-6.7); Neutrophils Percent Auto 64.1 % (45.5-73.1); Platelet Count Result 286 k/mm3 (150-375); Red Blood Count 3.54 M/mm3 (4.2-5.4); Red Cell Distribution Width 12.6 % (11.5-14.5); White Blood Count 10.3 K/mm3 (4.5-10.0)
[2023-04-22 03:08] LABS: Alanine Aminotransferase 15 U/L (6-35); Albumin Level 3.6 g/dL (3.5-5.1); Alkaline Phosphatase 99 U/L (38-126); Anion Gap 8 mmol/L (8-16); Aspartate Amino Transferase 21 U/L (14-36); Blood Urea Nitrogen 8 mg/dL (7-17); Calcium 8.6 mg/dL (8.4-10.2); Carbon Dioxide 22 mmol/L (22-30); Chloride 102 mmol/L (98-107); Estimated Glomerular Filt Rate > 60; Glucose 92 mg/dL (65-110); Magnesium 1.6 mg/dL (1.6-2.3); Potassium 3.8 mmol/L (3.4-5.0); Sodium 132 mmol/L (137-145)
[2023-04-22 03:11] LABS: Lactic Acid Reflex 0.8 mmol/L (0.7-2.0)
[2023-04-22] MEDS: LEVOTHYROXINE SODIUM 88 MCG TABLET PO (06:28)
[2023-04-22] MEDS: OPTI-GEN TAB 1 TABLET PO ×2 (08:26→18:15)
[2023-04-22] MEDS: PANTOPRAZOLE 40 MG TABLET PO (08:26)
[2023-04-22] MEDS: CYANOCOBALAMIN 1,000 MCG TABLET 1000 MCG PO (08:27)
[2023-04-22] MEDS: EZETIMIBE 10 MG TABLET PO (08:27)
[2023-04-22] MEDS: MONTELUKAST SODIUM 10 MG TABLET PO (08:27)
[2023-04-22] MEDS: APIXABAN 5 MG TABLET PO ×2 (08:27→20:16)
[2023-04-22] MEDS: FOLIC ACID 1 MG TABLET PO (08:27)
[2023-04-22] MEDS: ASPIRIN 81 MG ENTERIC TABLET PO (08:27)
[2023-04-22] MEDS: FLUTICASONE PROPIONATE 0.05% NA SPR 16 GM BTL (*BKC) 1 SPRAY NASAL ×2 (08:27→18:16)
[2023-04-22] MEDS: SODIUM CHLORIDE 1 GM TABLET PO ×2 (08:27→18:15)
[2023-04-22] MEDS: MAGNESIUM OXIDE 400 MG TABLET PO (08:27)
[2023-04-22] MEDS: TOLNAFTATE 1% POWDER 45 GM BTL 1 APPLIC TOPICAL ×2 (08:28→20:16)
[2023-04-22] MEDS: VALSARTAN 160 MG TABLET PO (08:32)
[2023-04-22] MEDS: dilTIAZem HCL CD 120 MG CAP.24HR PO (08:32)
[2023-04-22] MEDS: FLUTICASONE/SALMETEROL 115-21 MCG INHALER 1 PUFF 2 PUFF INHALATION ×2 (08:33→19:57)
[2023-04-22] MEDS: busPIRone HCL 10 MG TABLET PO ×2 (08:33→18:15)
[2023-04-22 08:49] LABS: Potassium Urine Random 10.4 meq/L; Sodium Urine Random 82 meq/L
--- NOTE | 2023-04-22 12:07 | PM.IMPN ---
Progress Note: A&P Assessment and Plan (1) Pneumonia: Code(s): J18.9 - Pneumonia, unspecified organism Status: Acute Assessment and Plan: The patient was started on a azithromycin Rocephin. CT of the chest was read as Pulmonary opacities in the left upper and lower lobes may reflect atypical infection or infectious airways disease, possibly with a component of aspiration. The patient tells me she has not been choking on any for food or feels like she is aspirating. Continue with nebulizer treatments. Blood in sputum cultures are pending. (2) CHF (congestive heart failure): Code(s): I50.9 - Heart failure, unspecified Status: Acute Assessment and Plan: appears compensated Echo on . Complete two-dimensional, color flow and Doppler transthoracic echocardiogram is performed. ? 2. Left ventricular chamber dimension is normal. ? 3. Left ventricular systolic function is normal, estimated at 65-70%. ? 4. There is no increased left ventricular wall thickness. ? 5. The left ventricular diastolic function is indeterminate. ? 6. Left atrial chamber dimension is mildly enlarged. ? 7. There is trace mitral valve regurgitation. ? 8. There is mild to moderate tricuspid valve regurgitation. ? 9. Mild pulmonary hypertension, estimated pulmonary arterial systolic pressure is 41 mmHg. The patient is on spironolactone which is on hold at this time due to her hyponatremia. Continue with Diovan and Bystolic with heart rate parameters. (3) Chronic hyponatremia: Code(s): E87.1 - Hypo-osmolality and hyponatremia Status: Acute Assessment and Plan: Monitor (4) Asthma: Qualifiers: Asthma severity: mild Asthma persistence: intermittent Asthma complication type: uncomplicated Qualified Code(s): J45.20 - Mild intermittent asthma, uncomplicated Code(s): J45.909 - Unspecified asthma, uncomplicated Status: Acute Assessment and Plan: Dual nebulizer treatments at this time. Continue with Singulair (5) Anxiety: Code(s): F41.9 - Anxiety disorder, unspecified Status: Chronic Assessment and Plan: Continue BuSpar (6) Hyperlipidemia: Qualifiers: Hyperlipidemia type: unspecified Qualified Code(s): E78.5 - Hyperlipidemia, unspecified Code(s): E78.5 - Hyperlipidemia, unspecified Status: Chronic Assessment and Plan: Continue Zetia, atorvastatin and fish oil (7) Hypertension: Qualifiers: Hypertension type: unspecified Qualified Code(s): I10 - Essential (primary) hypertension Code(s): I10 - Essential (primary) hypertension Status: Chronic Assessment and Plan: The patient is on Cardizem for AFib would which is now is slow rate. Hold of her heart rate is less than 50. Hold Bystolic if her rate less than 50. Spironolactone on hold due to her hyponatremia the patient is on Eliquis due to her AFib. (8) Hypothyroid: Qualifiers: Hypothyroidism type: unspecified Qualified Code(s): E03.9 - Hypothyroidism, unspecified Code(s): E03.9 - Hypothyroidism, unspecified Status: Chronic Assessment and Plan: Continue with levothyroxine and check thyroid level (9) Obstructive sleep apnea: Code(s): G47.33 - Obstructive sleep apnea (adult) (pediatric) Status: Acute Assessment and Plan: Home settings. The patient would also like to be monitored for oxygen at home. She would like to be tested to see she can qualify for home O2. Subjective Date/time seen: 04/22/23 12:07 Interval history: no complaints Exam Const: General: cooperative, comfortable, no acute distress, well developed, alert, awake, Physically active, average body habitus and well nourished Nutritional Appearance: average body habitus and well nourished Orientation/consciousness: oriented to person, oriented to place, oriented to time and patient oriented x3 Limitations: no limi
[2023-04-22] MEDS: SODIUM CHLORIDE 0.9% IV 1,000 ML 125 ML IV CONT (18:17)
[2023-04-22 19:25] LABS: Anion Gap 8 mmol/L (8-16); Blood Urea Nitrogen 10 mg/dL (7-17); Calcium 7.9 mg/dL (8.4-10.2); Carbon Dioxide 23 mmol/L (22-30); Chloride 101 mmol/L (98-107); Estimated Glomerular Filt Rate > 60; Glucose 141 mg/dL (65-110); Potassium 3.7 mmol/L (3.4-5.0); Sodium 132 mmol/L (137-145)
[2023-04-22] MEDS: ATORVASTATIN 40 MG TABLET PO (20:16)
[2023-04-22] MEDS: hydrALAZINE HCL 20 MG/ML VIAL 10 MG IV PUSH (23:01)
[2023-04-23] VITALS (20 sets, daily range): BP systolic 130–193; BP diastolic 53–89; PULSE 69–92; RESP 16–20; TEMP 36.1–37.1; O2SAT 16–100
[2023-04-23] MEDS: oxyCODONE/ACETAMINOPHEN (*CRX) 10-325 MG TABLET 1 TAB PO ×4 (00:24→18:16)
[2023-04-23] MEDS: AZITHROMYCIN 500 MG/NS 250 ML 500 MG/250 ML BAG 250 MG IVPB (00:25)
[2023-04-23] MEDS: ALBUTEROL SULFATE NEB 2.5 MG/3 ML INH INHALATION ×4 (01:56→20:35)
[2023-04-23] MEDS: IPRATROPIUM BR 0.02% INH SOLN 0.5 MG/2.5 ML VIAL INHALATION ×4 (01:56→20:35)
[2023-04-23 05:31] LABS: Basophils Percent Auto 0.6 % (0.2-1.2); Eosinophils Absolute Auto 0.1 K/mm3 (0-0.3); Eosinophils Percent Auto 0.7 % (0-4.4); Hematocrit 30.4 % (37.0-47.0); Immature Granulocyte Absolute 0.02 K/mm3 (0.00-0.031); Immature Granulocyte Percent A 0.3 % (0-0.5); Lymphocytes Absolute Auto 2.14 K/mm3 (0.9-3.2); Lymphocytes Percent Auto 31.4 % (18.3-44.2); Mean Corpuscular HGB Conc 32.9 g/dl (32-36); Mean Corpuscular Hemoglobin 29.1 pg (26-34); Mean Corpuscular Volume 88.4 fl (80-100); Monocytes Absolute Auto 0.6 K/mm3 (0.1-0.6); Monocytes Percent Auto 9.4 % (2.6-8.5); Neutrophils Absolute Auto 3.9 K/mm3 (1.3-6.7); Neutrophils Percent Auto 57.6 % (45.5-73.1); Platelet Count Result 293 k/mm3 (150-375); Red Blood Count 3.44 M/mm3 (4.2-5.4); Red Cell Distribution Width 13.2 % (11.5-14.5); White Blood Count 6.8 K/mm3 (4.5-10.0)
[2023-04-23 05:39] LABS: Anion Gap 6 mmol/L (8-16); Blood Urea Nitrogen 8 mg/dL (7-17); Calcium 8.4 mg/dL (8.4-10.2); Carbon Dioxide 23 mmol/L (22-30); Chloride 103 mmol/L (98-107); Estimated Glomerular Filt Rate > 60; Glucose 124 mg/dL (65-110); Potassium 3.5 mmol/L (3.4-5.0); Sodium 132 mmol/L (137-145)
[2023-04-23] MEDS: LEVOTHYROXINE SODIUM 88 MCG TABLET PO (06:19)
[2023-04-23] MEDS: FLUTICASONE/SALMETEROL 115-21 MCG INHALER 1 PUFF 2 PUFF INHALATION ×2 (08:18→20:35)
[2023-04-23] MEDS: FLUTICASONE PROPIONATE 0.05% NA SPR 16 GM BTL (*BKC) 1 SPRAY NASAL ×2 (08:38→18:20)
[2023-04-23] MEDS: TOLNAFTATE 1% POWDER 45 GM BTL 1 APPLIC TOPICAL ×2 (08:38→21:06)
[2023-04-23] MEDS: VALSARTAN 160 MG TABLET PO (08:38)
[2023-04-23] MEDS: MAGNESIUM OXIDE 400 MG TABLET PO (08:39)
[2023-04-23] MEDS: ASPIRIN 81 MG ENTERIC TABLET PO (08:39)
[2023-04-23] MEDS: OPTI-GEN TAB 1 TABLET PO ×2 (08:39→18:20)
[2023-04-23] MEDS: MONTELUKAST SODIUM 10 MG TABLET PO (08:39)
[2023-04-23] MEDS: FOLIC ACID 1 MG TABLET PO (08:39)
[2023-04-23] MEDS: dilTIAZem HCL CD 120 MG CAP.24HR PO (08:39)
[2023-04-23] MEDS: SODIUM CHLORIDE 1 GM TABLET PO ×2 (08:39→18:20)
[2023-04-23] MEDS: CYANOCOBALAMIN 1,000 MCG TABLET 1000 MCG PO (08:39)
[2023-04-23] MEDS: EZETIMIBE 10 MG TABLET PO (08:39)
[2023-04-23] MEDS: APIXABAN 5 MG TABLET PO ×2 (08:39→21:01)
[2023-04-23] MEDS: PANTOPRAZOLE 40 MG TABLET PO (08:39)
[2023-04-23] MEDS: busPIRone HCL 10 MG TABLET PO ×2 (08:39→18:20)
--- NOTE | 2023-04-23 11:39 | P.PNIM_ITS ---
Progress Note: A&P Assessment and Plan (1) Pneumonia: Code(s): J18.9 - Pneumonia, unspecified organism Status: Acute Assessment and Plan: The patient was started on a azithromycin Rocephin. CT of the chest was read as Pulmonary opacities in the left upper and lower lobes may reflect atypical infection or infectious airways disease, possibly with a component of aspiration. The patient tells me she has not been choking on any for food or feels like she is aspirating. Continue with nebulizer treatments. Blood in sputum cultures are pending. (2) CHF (congestive heart failure): Code(s): I50.9 - Heart failure, unspecified Status: Acute Assessment and Plan: appears compensated Echo on . Complete two-dimensional, color flow and Doppler transthoracic echocardiogram is performed. ? 2. Left ventricular chamber dimension is normal. ? 3. Left ventricular systolic function is normal, estimated at 65-70%. ? 4. There is no increased left ventricular wall thickness. ? 5. The left ventricular diastolic function is indeterminate. ? 6. Left atrial chamber dimension is mildly enlarged. ? 7. There is trace mitral valve regurgitation. ? 8. There is mild to moderate tricuspid valve regurgitation. ? 9. Mild pulmonary hypertension, estimated pulmonary arterial systolic pressure is 41 mmHg. The patient is on spironolactone which is on hold at this time due to her hyponatremia. Continue with Diovan and Bystolic with heart rate parameters. (3) Chronic hyponatremia: Code(s): E87.1 - Hypo-osmolality and hyponatremia Status: Acute Assessment and Plan: Monitor (4) Asthma: Qualifiers: Asthma severity: mild Asthma persistence: intermittent Asthma complication type: uncomplicated Qualified Code(s): J45.20 - Mild intermittent asthma, uncomplicated Code(s): J45.909 - Unspecified asthma, uncomplicated Status: Acute Assessment and Plan: Dual nebulizer treatments at this time. Continue with Singulair (5) Anxiety: Code(s): F41.9 - Anxiety disorder, unspecified Status: Chronic Assessment and Plan: Continue BuSpar (6) Hyperlipidemia: Qualifiers: Hyperlipidemia type: unspecified Qualified Code(s): E78.5 - Hyperlipidemia, unspecified Code(s): E78.5 - Hyperlipidemia, unspecified Status: Chronic Assessment and Plan: Continue Zetia, atorvastatin and fish oil (7) Hypertension: Qualifiers: Hypertension type: unspecified Qualified Code(s): I10 - Essential (primary) hypertension Code(s): I10 - Essential (primary) hypertension Status: Chronic Assessment and Plan: The patient is on Cardizem for AFib would which is now is slow rate. Hold of her heart rate is less than 50. Hold Bystolic if her rate less than 50. Spironolactone on hold due to her hyponatremia the patient is on Eliquis due to her AFib. (8) Hypothyroid: Qualifiers: Hypothyroidism type: unspecified Qualified Code(s): E03.9 - Hypothyroidism, unspecified Code(s): E03.9 - Hypothyroidism, unspecified Status: Chronic Assessment and Plan: Continue with levothyroxine and check thyroid level (9) Obstructive sleep apnea: Code(s): G47.33 - Obstructive sleep apnea (adult) (pediatric) Status: Acute Assessment and Plan: Home settings. The patient would also like to be monitored for oxygen at home. She would like to be tested to see she can qualify for home O2. Subjective Date/time seen: 04/23/23 11:39 Int
[2023-04-23] MEDS: hydrALAZINE HCL 20 MG/ML VIAL 10 MG IV PUSH (17:06)
[2023-04-23] MEDS: ATORVASTATIN 40 MG TABLET PO (21:01)
[2023-04-23] MEDS: ACETAMINOPHEN 325 MG TABLET 650 MG PO (21:05)
[2023-04-24] VITALS (13 sets, daily range): BP systolic 137–177; BP diastolic 58–68; PULSE 68–88; RESP 16–20; TEMP 36.2–37.2; O2SAT 94–98
[2023-04-24] MEDS: oxyCODONE/ACETAMINOPHEN (*CRX) 10-325 MG TABLET 1 TAB PO ×4 (00:01→23:27)
[2023-04-24] MEDS: AZITHROMYCIN 500 MG/NS 250 ML 500 MG/250 ML BAG 250 MG IVPB (00:01)
[2023-04-24] MEDS: ALBUTEROL SULFATE NEB 2.5 MG/3 ML INH INHALATION ×4 (02:13→21:34)
[2023-04-24] MEDS: IPRATROPIUM BR 0.02% INH SOLN 0.5 MG/2.5 ML VIAL INHALATION ×4 (02:14→21:34)
[2023-04-24] MEDS: LEVOTHYROXINE SODIUM 88 MCG TABLET PO (05:42)
[2023-04-24] MEDS: FLUTICASONE/SALMETEROL 115-21 MCG INHALER 1 PUFF 2 PUFF INHALATION ×2 (07:44→21:34)
--- NOTE | 2023-04-24 08:28 | P.CDI_ITS ---
acute diastolic CDI Query Clarification Request Documented history of CHF. CHF noted in the assessment and plan. Elevated BNP on 04/21/23 lab work. Please specify type and acuity of heart failure if known. * Acute * Chronic * Acute on Chronic * Unknown * Systolic * Diastolic * Combined Systolic and Diastolic * Unknown
--- NOTE | 2023-04-24 08:28 | WPDCDIQUERY2 ---
CDI Query Clarification Request Documented history of CHF. CHF noted in the assessment and plan. Elevated BNP on 04/21/23 lab work. Please specify type and acuity of heart failure if known. Acute Chronic Acute on Chronic Unknown Systolic Diastolic Combined Systolic and Diastolic Unknown
[2023-04-24] MEDS: MONTELUKAST SODIUM 10 MG TABLET PO (09:10)
[2023-04-24] MEDS: busPIRone HCL 10 MG TABLET PO ×2 (09:10→17:11)
[2023-04-24] MEDS: CYANOCOBALAMIN 1,000 MCG TABLET 1000 MCG PO (09:10)
[2023-04-24] MEDS: OPTI-GEN TAB 1 TABLET PO ×2 (09:10→17:11)
[2023-04-24] MEDS: FOLIC ACID 1 MG TABLET PO (09:10)
[2023-04-24] MEDS: VALSARTAN 160 MG TABLET PO (09:10)
[2023-04-24] MEDS: MAGNESIUM OXIDE 400 MG TABLET PO (09:10)
[2023-04-24] MEDS: dilTIAZem HCL CD 120 MG CAP.24HR PO (09:10)
[2023-04-24] MEDS: PANTOPRAZOLE 40 MG TABLET PO (09:10)
[2023-04-24] MEDS: APIXABAN 5 MG TABLET PO ×2 (09:10→21:01)
[2023-04-24] MEDS: FLUTICASONE PROPIONATE 0.05% NA SPR 16 GM BTL (*BKC) 1 SPRAY NASAL ×2 (09:10→17:11)
[2023-04-24] MEDS: EZETIMIBE 10 MG TABLET PO (09:10)
[2023-04-24] MEDS: ASPIRIN 81 MG ENTERIC TABLET PO (09:10)
[2023-04-24] MEDS: SODIUM CHLORIDE 1 GM TABLET PO ×2 (09:11→17:11)
[2023-04-24] MEDS: TOLNAFTATE 1% POWDER 45 GM BTL 1 APPLIC TOPICAL ×2 (09:11→21:01)
[2023-04-24] MEDS: hydrALAZINE HCL 20 MG/ML VIAL 10 MG IV PUSH (09:11)
[2023-04-24] MEDS: ACETAMINOPHEN 325 MG TABLET 650 MG PO (10:55)
[2023-04-24] MEDS: amLODIPine BESYLATE 5 MG TABLET PO (10:55)
--- NOTE | 2023-04-24 12:08 | PM.IMPN ---
Progress Note: A&P Assessment and Plan (1) Pneumonia: Code(s): J18.9 - Pneumonia, unspecified organism Status: Acute Assessment and Plan: Antibiotics (2) CHF (congestive heart failure): Code(s): I50.9 - Heart failure, unspecified Status: Acute Assessment and Plan: appears compensated Echo on . Complete two-dimensional, color flow and Doppler transthoracic echocardiogram is performed. ? 2. Left ventricular chamber dimension is normal. ? 3. Left ventricular systolic function is normal, estimated at 65-70%. ? 4. There is no increased left ventricular wall thickness. ? 5. The left ventricular diastolic function is indeterminate. ? 6. Left atrial chamber dimension is mildly enlarged. ? 7. There is trace mitral valve regurgitation. ? 8. There is mild to moderate tricuspid valve regurgitation. ? 9. Mild pulmonary hypertension, estimated pulmonary arterial systolic pressure is 41 mmHg. The patient is on spironolactone which is on hold at this time due to her hyponatremia. Continue with Diovan and Bystolic with heart rate parameters. (3) Chronic hyponatremia: Code(s): E87.1 - Hypo-osmolality and hyponatremia Status: Acute Assessment and Plan: Monitor (4) Asthma: Qualifiers: Asthma severity: mild Asthma persistence: intermittent Asthma complication type: uncomplicated Qualified Code(s): J45.20 - Mild intermittent asthma, uncomplicated Code(s): J45.909 - Unspecified asthma, uncomplicated Status: Acute Assessment and Plan: Dual nebulizer treatments at this time. Continue with Singulair (5) Anxiety: Code(s): F41.9 - Anxiety disorder, unspecified Status: Chronic Assessment and Plan: Continue BuSpar (6) Hyperlipidemia: Qualifiers: Hyperlipidemia type: unspecified Qualified Code(s): E78.5 - Hyperlipidemia, unspecified Code(s): E78.5 - Hyperlipidemia, unspecified Status: Chronic Assessment and Plan: Continue Zetia, atorvastatin and fish oil (7) Hypertension: Qualifiers: Hypertension type: unspecified Qualified Code(s): I10 - Essential (primary) hypertension Code(s): I10 - Essential (primary) hypertension Status: Chronic Assessment and Plan: Adjust medication. (8) Hypothyroid: Qualifiers: Hypothyroidism type: unspecified Qualified Code(s): E03.9 - Hypothyroidism, unspecified Code(s): E03.9 - Hypothyroidism, unspecified Status: Chronic Assessment and Plan: Continue with levothyroxine and check thyroid level (9) Obstructive sleep apnea: Code(s): G47.33 - Obstructive sleep apnea (adult) (pediatric) Status: Acute Assessment and Plan: Home settings. The patient would also like to be monitored for oxygen at home. She would like to be tested to see she can qualify for home O2. Subjective Date/time seen: 04/24/23 12:08 Interval history: No complaints Elevated blood pressure yesterday and overnight. Exam Const: General: cooperative, comfortable, no acute distress, well developed, alert, awake, Physically active, average body habitus and well nourished Nutritional Appearance: average body habitus and well nourished Orientation/consciousness: oriented to person, oriented to place, oriented to time and patient oriented x3 Limitations: no limitations HENMT: Head: normal to inspection, No palpable skull fracture present, normocephalic and atraumatic Ears: external ears normal and hearing grossly impaired Face/Nose/Sinus: Normal external nose present and Normal nares present Eyes: General: appearance normal, both eyes and all related structures Alignment and Position: alignment normal Periorbital: periorbital findings normal Eyelids: eyelids normal Sclera: sclerae normal Pupils: Equal, round and reactive pupils present EOM: EOMs intact bilaterally Neck: Neck: normal visual inspection, ful
[2023-04-24 18:57] LABS: Osmolality, Urine 264 mOsm/kg (50-1200)
[2023-04-24] MEDS: AMOXICILLIN/CLAVULANATE K 875-125 MG TAB 1 TABLET PO (21:01)
[2023-04-24] MEDS: ATORVASTATIN 40 MG TABLET PO (21:01)
[2023-04-25] VITALS (13 sets, daily range): BP systolic 143–163; BP diastolic 55–74; PULSE 70–90; RESP 18–20; TEMP 36.1–36.8; O2SAT 93–98
[2023-04-25] MEDS: ALBUTEROL SULFATE NEB 2.5 MG/3 ML INH INHALATION ×3 (02:02→13:45)
[2023-04-25] MEDS: IPRATROPIUM BR 0.02% INH SOLN 0.5 MG/2.5 ML VIAL INHALATION ×3 (02:05→13:45)
[2023-04-25] MEDS: LEVOTHYROXINE SODIUM 88 MCG TABLET PO (05:36)
[2023-04-25] MEDS: oxyCODONE/ACETAMINOPHEN (*CRX) 10-325 MG TABLET 1 TAB PO ×2 (05:36→11:52)
[2023-04-25] MEDS: FLUTICASONE PROPIONATE 0.05% NA SPR 16 GM BTL (*BKC) 1 SPRAY NASAL (08:23)
[2023-04-25] MEDS: OPTI-GEN TAB 1 TABLET PO (08:24)
[2023-04-25] MEDS: APIXABAN 5 MG TABLET PO (08:24)
[2023-04-25] MEDS: ASPIRIN 81 MG ENTERIC TABLET PO (08:24)
[2023-04-25] MEDS: dilTIAZem HCL CD 120 MG CAP.24HR PO (08:24)
[2023-04-25] MEDS: VALSARTAN 160 MG TABLET PO (08:24)
[2023-04-25] MEDS: busPIRone HCL 10 MG TABLET PO (08:25)
[2023-04-25] MEDS: PANTOPRAZOLE 40 MG TABLET PO (08:25)
[2023-04-25] MEDS: SODIUM CHLORIDE 1 GM TABLET PO (08:25)
[2023-04-25] MEDS: MAGNESIUM OXIDE 400 MG TABLET PO (08:25)
[2023-04-25] MEDS: NEBIVOLOL HCL 5 MG TABLET PO (08:26)
[2023-04-25] MEDS: EZETIMIBE 10 MG TABLET PO (08:27)
[2023-04-25] MEDS: AMOXICILLIN/CLAVULANATE K 875-125 MG TAB 1 TABLET PO (08:28)
[2023-04-25] MEDS: MONTELUKAST SODIUM 10 MG TABLET PO (08:28)
[2023-04-25] MEDS: FOLIC ACID 1 MG TABLET PO (08:29)
[2023-04-25] MEDS: TOLNAFTATE 1% POWDER 45 GM BTL 1 APPLIC TOPICAL (08:30)
[2023-04-25] MEDS: FLUTICASONE/SALMETEROL 115-21 MCG INHALER 1 PUFF 2 PUFF INHALATION (08:51)
[2023-04-25] MEDS: CYANOCOBALAMIN 1,000 MCG TABLET 1000 MCG PO (12:00)
--- NOTE | 2023-04-25 14:33 | PM.DS ---
DS: Admitting Diagnosis Discharge Date April 25, 2023 Admitting Diagnosis Pneumonia DS: Discharge Diagnosis Discharge Diagnosis (1) Pneumonia: Code(s): J18.9 - Pneumonia, unspecified organism Status: Acute Assessment and Plan: Antibiotics (2) CHF (congestive heart failure): Code(s): I50.9 - Heart failure, unspecified Status: Acute Assessment and Plan: appears compensated Echo on . Complete two-dimensional, color flow and Doppler transthoracic echocardiogram is performed. ? 2. Left ventricular chamber dimension is normal. ? 3. Left ventricular systolic function is normal, estimated at 65-70%. ? 4. There is no increased left ventricular wall thickness. ? 5. The left ventricular diastolic function is indeterminate. ? 6. Left atrial chamber dimension is mildly enlarged. ? 7. There is trace mitral valve regurgitation. ? 8. There is mild to moderate tricuspid valve regurgitation. ? 9. Mild pulmonary hypertension, estimated pulmonary arterial systolic pressure is 41 mmHg. The patient is on spironolactone which is on hold at this time due to her hyponatremia. Continue with Diovan and Bystolic with heart rate parameters. (3) Chronic hyponatremia: Code(s): E87.1 - Hypo-osmolality and hyponatremia Status: Acute Assessment and Plan: Monitor (4) Asthma: Qualifiers: Asthma severity: mild Asthma persistence: intermittent Asthma complication type: uncomplicated Qualified Code(s): J45.20 - Mild intermittent asthma, uncomplicated Code(s): J45.909 - Unspecified asthma, uncomplicated Status: Acute Assessment and Plan: Dual nebulizer treatments at this time. Continue with Singulair (5) Anxiety: Code(s): F41.9 - Anxiety disorder, unspecified Status: Chronic Assessment and Plan: Continue BuSpar (6) Hyperlipidemia: Qualifiers: Hyperlipidemia type: unspecified Qualified Code(s): E78.5 - Hyperlipidemia, unspecified Code(s): E78.5 - Hyperlipidemia, unspecified Status: Chronic Assessment and Plan: Continue Zetia, atorvastatin and fish oil (7) Hypertension: Qualifiers: Hypertension type: unspecified Qualified Code(s): I10 - Essential (primary) hypertension Code(s): I10 - Essential (primary) hypertension Status: Chronic Assessment and Plan: Adjust medication. (8) Hypothyroid: Qualifiers: Hypothyroidism type: unspecified Qualified Code(s): E03.9 - Hypothyroidism, unspecified Code(s): E03.9 - Hypothyroidism, unspecified Status: Chronic Assessment and Plan: Continue with levothyroxine and check thyroid level (9) Obstructive sleep apnea: Code(s): G47.33 - Obstructive sleep apnea (adult) (pediatric) Status: Acute Assessment and Plan: Home settings. The patient would also like to be monitored for oxygen at home. She would like to be tested to see she can qualify for home O2. DS: Summary Hospital Course Hospital Course: Admitted for pna - patient was started on iv abx and has done well. Has never required oxygen. She is breathing well, walking around the room wo help and vitals are stable. She can be dc to completer oral abx at home. Time Spent with Patient Time attestation: Total time spent providing and/or coordinating discharge services: Exam Const: General: cooperative, comfortable, no acute distress, well developed, alert, awake, Physically active, average body habitus and well nourished Nutritional Appearance: average body habitus and well nourished Orientation/consciousness: oriented to person, oriented to place, oriented to time and patient oriented x3 Limitations: no limitations HENMT: Head: normal to inspection, No palpable skull fracture present, normocephalic and atraumatic Ears: external ears normal and hearing grossly impaired Face/Nose/Sinus: Normal external nose present and Normal
--- NOTE | 2023-04-25 14:46 | PCRCNOTE ---
No home O2 needed, RN notified
== END 2023-04-25 15:38 | disposition home or self-care (01) | DRG 194 ==
LOC: ANHED 15:28 → ANHIMU 17:04
PROVIDERS: Nurse Practitioner; Admitting Provider Family Medicine; Emergency Provider Emergency Medicine; PCP Family Medicine; Visit Provider Chiropractor
DX: J18.9 Pneumonia, unspecified organism (principal); E87.1 Hypo-osmolality and hyponatremia; I50.32 Chronic diastolic (congestive) heart failure; I11.0 Hypertensive heart disease with heart failure; I48.0 Paroxysmal atrial fibrillation; F41.9 Anxiety disorder, unspecified; E78.5 Hyperlipidemia, unspecified; I25.10 Atherosclerotic heart disease of native coronary artery without angina pectoris; E03.9 Hypothyroidism, unspecified; J45.20 Mild intermittent asthma, uncomplicated; I27.20 Pulmonary hypertension, unspecified; I07.1 Rheumatic tricuspid insufficiency; G47.33 Obstructive sleep apnea (adult) (pediatric); Z91.199 Patient's noncompliance with other medical treatment and regimen due to unspecified reason; K21.9 Gastro-esophageal reflux disease without esophagitis; E11.40 Type 2 diabetes mellitus with diabetic neuropathy, unspecified; K58.9 Irritable bowel syndrome, unspecified; Z86.718 Personal history of other venous thrombosis and embolism; M15.9 Polyosteoarthritis, unspecified; F32.A Depression, unspecified; Z79.891 Long term (current) use of opiate analgesic; G89.4 Chronic pain syndrome; Z79.01 Long term (current) use of anticoagulants; Z79.82 Long term (current) use of aspirin; Z90.49 Acquired absence of other specified parts of digestive tract; Z90.710 Acquired absence of both cervix and uterus; Z98.49 Cataract extraction status, unspecified eye; Z96.1 Presence of intraocular lens
CPT/HCPCS: 36415; 70450; 71045; 71260; 80048; 80053; 83605; 83735; 83880; 83935; 84133; 84300; 84443; 84484; 85025; 85610; 85730; 87040; 93005; 94618; 94640; 96361; 96365; 96367; 99285; A9270; G0378; J0360; J0456; J0696; J7030; Q9967

== ENCOUNTER 2023-05-21 06:19 | Inpatient (IN) | payer MEDICARE, BC, SELFPAY ==
[2023-05-21] VITALS (24 sets, daily range): BP systolic 109–187; BP diastolic 51–68; PULSE 56–84; RESP 11–98; TEMP 36.1–38.6; O2SAT 93–100
--- NOTE | 2023-05-21 | ECG_ITS ---
Measurements Intervals Floral Rate: 81 P: 58 OK: 180 QRS: -36 QRSD: 91 T: 38 QT: 356 QTc: 415 Interpretive Statements SINUS RHYTHM LEFT AXIS DEVIATION VOLTAGE CRITERIA FOR LVH BORDERLINE R WAVE PROGRESSION, ANTERIOR LEADS BASELINE ARTIFACT- II, III, AVF BORDERLINE ECG COMPARED TO ECG 04/21/2023 12:40:02 SINUS RHYTHM NOW PRESENT Electronically Signed On 05-21-2023 8:18:13 CDT by Jasvir Steele D.O.
--- NOTE | ~2023-05-21 | XR_ITS ---
XR chest 2V DATE: 05/25/2023 09:15 INDICATION: Congestive heart failure TECHNIQUE: AP and lateral views COMPARISON: 05/21/2023 AP and lateral chest FINDINGS: Borderline heart size. Aortic calcification and mild tortuosity. No hilar or mediastinal en largement. Moderate sized hiatal hernia. No pulmonary infiltrate or consolidation, pleural effusion or pulmonary vascular congestion or pneumo thorax. Surgical clips overlie right upper quadrant, likely due to cholecystectomy. Osteopenia. IMPRESSION: No active pulmonary disease Reviewed, dictated and finalized at location A. IMPRESSION: No active pulmonary disease
--- NOTE | ~2023-05-21 | CT_ITS ---
EXAMINATION: CT brain wo con DATE: 05/24/2023 08:55 INDICATION: Numbness and tingling in bilateral upper and lower extremities. Possible cerebrovascular accident TECHNIQUE: Computed tomography (CT) of the head was performed without intravenous contrast. The mA wa s adjusted according to patient size. Iterative reconstruction technique was employed. Exam dose: 60 5.33 mGy-cm total exam DLP. COMPARISON: 04/21/2023 CT brain FINDINGS: Bilateral vertebral artery and prominent bilateral carotid siphon internal carotid artery c alcifications. There is nonspecific diminished attenuation of the cerebral white matter, likely due to chronic small vessel ischemic changes. No intracranial mass lesion or hemorrhage or cerebrovascular accident is evident. CT is not sensitive for detection of hyperacute nonhemorrhagic CVA. Normal ventricular size. No subdural or epidural hematoma. No fracture or bone destruction of the cranial vault. Included paranasal sinuses and mastoid air cell s are unremarkable. IMPRESSION: Cerebral atherosclerosis and chronic small vessel ischemic changes of the cerebral white matter No acute intracranial finding Reviewed, dictated and finalized at Location A. Reviewed, dictated and finalized at location A.
--- NOTE | ~2023-05-21 | XR_ITS ---
EXAMINATION: XR chest 2V DATE: 05/21/2023 07:44 INDICATION: Fever. Atrial fibrillation. TECHNIQUE: Frontal and lateral views of the chest were obtained. COMPARISON: Chest view 04/21/2023, chest CT 04/21/2023 FINDINGS: There are mild airspace opacities in the lower lung zones. No pleural effusion or pneumotho rax. Cardiomegaly is noted. There is a moderate-sized hiatal hernia. There are suture anchors in righ t humeral head. IMPRESSION: 1. Mild airspace opacities in the lower lung zones, consistent with atelectasis versus pneumonia. 2. Moderate-sized hiatal hernia. 3. Cardiomegaly. Reviewed, dictated and finalized at location A.
[2023-05-21] MEDS: ONDANSETRON HCL ODT 4 MG TABLET PO (07:21)
[2023-05-21] MEDS: ACETAMINOPHEN 500 MG TABLET 1000 MG PO (07:23)
[2023-05-21 07:36] LABS: Basophils Absolute Auto 0.1 K/mm3 (0.0-0.1); Basophils Percent Auto 0.3 % (0.2-1.2); Eosinophils Percent Auto 0.2 % (0-4.4); Hematocrit 33.6 % (37.0-47.0); Hemoglobin 11.5 g/dL (12.0-15.0); Immature Granulocyte Absolute 0.05 K/mm3 (0.00-0.031); Immature Granulocyte Percent A 0.3 % (0-0.5); Lymphocytes Absolute Auto 2.08 K/mm3 (0.9-3.2); Lymphocytes Percent Auto 12.9 % (18.3-44.2); Mean Corpuscular HGB Conc 34.2 g/dl (32-36); Mean Corpuscular Hemoglobin 29.9 pg (26-34); Mean Corpuscular Volume 87.3 fl (80-100); Mean Platelet Volume 10.3 fl (7.4-10.4); Monocytes Absolute Auto 0.8 K/mm3 (0.1-0.6); Monocytes Percent Auto 4.8 % (2.6-8.5); Neutrophils Absolute Auto 13.1 K/mm3 (1.3-6.7); Neutrophils Percent Auto 81.5 % (45.5-73.1); Platelet Count Result 264 k/mm3 (150-375); Red Blood Count 3.85 M/mm3 (4.2-5.4); Red Cell Distribution Width 13.2 % (11.5-14.5); White Blood Count 16.1 K/mm3 (4.5-10.0)
[2023-05-21 07:38] LABS: Alanine Aminotransferase 33 U/L (6-35); Albumin Level 4.1 g/dL (3.5-5.1); Alkaline Phosphatase 144 U/L (38-126); Anion Gap 12 mmol/L (8-16); Aspartate Amino Transferase 53 U/L (14-36); Bilirubin,Total 1.7 mg/dL (0.2-1.3); Blood Urea Nitrogen 13 mg/dL (7-17); Calcium 8.9 mg/dL (8.4-10.2); Carbon Dioxide 22 mmol/L (22-30); Chloride 95 mmol/L (98-107); Estimated Glomerular Filt Rate > 60; Glucose 153 mg/dL (65-110); Magnesium 1.3 mg/dL (1.6-2.3); Potassium 4.6 mmol/L (3.4-5.0); Sodium 129 mmol/L (137-145)
--- NOTE | 2023-05-21 07:41 | ED.CHESTPAIN ---
HPI - Chest Pain General Chief Complaint: Chest Pain Stated Complaint: CHEST PAIN Time Seen by Provider: 05/21/23 07:04 History of Present Illness HPI narrative: This is an 78-year-old female, with past history of coronary artery disease, type 2 diabetes and paroxysmal A-fib, presenting to the emergency department complaining of chest pain and nausea beginning this morning. She describes the pain as sharp, epigastric to mid chest, aggravated with movement and associated with shortness of breath. The patient states she was not able to get out of bed or rise from the toilet without becoming short of breath. She has no other complaints at this time. Related Data Home Medications Medication Instructions Recorded Confirmed aspirin 81 mg tablet,delayed 81 mg PO DAILY 07/29/19 05/21/23 release (Adult Low Dose Aspirin) nitroglycerin 0.4 mg sublingual 0.4 mg sublingual Q5M PRN Chest 07/29/19 05/21/23 tablet Pain vitamins A,C,M-swln-nbocwt 4,296 1 cap PO BID 07/19/22 05/21/23 mcg-226 mg-90 mg capsule (PreserVision AREDS) spironolactone 25 mg tablet 12.5 mg PO DAILY 10/23/22 05/21/23 tetrahydrozoline 0.05 % eye drops 1 drp EACH EYE DAILY PRN Itching 10/23/22 05/21/23 cetirizine 10 mg capsule 10 mg PO DAILY 03/15/23 05/21/23 ezetimibe 10 mg tablet 10 mg PO DAILY 03/15/23 05/21/23 folic acid 1 mg tablet 1 mg PO DAILY 03/15/23 05/21/23 Lactobacillus rhamnosus GG 10 1 cap PO DAILY 04/01/23 05/21/23 billion cell-inulin 200 mg capsule ([facility]) fluticasone propionate 50 1 spray intranasal BID 04/01/23 05/21/23 mcg/actuation nasal spray,suspension (Flonase Allergy Relief) Allergies Allergy/AdvReac Type Severity Reaction Status Date / Time No Known Allergies Allergy Verified 05/21/23 14:12 Review of Systems Review of Systems: CONSTITUTIONAL: Denies fever, chills, or sweats. ENT: Rhinorrhea and congestion denies sore throat, or otalgia. CARDIOVASCULAR: Chest pain denies palpitations, or edema. RESPIRATORY: Dyspnea on exertion denies cough GASTROINTESTINAL: Nausea denies abdominal pain, vomiting, or diarrhea. GENITOURINARY: Denies dysuria or hematuria. SKIN: Denies rash or itching. MUSCULOSKELETAL: Denies back pain, joint pain, or myalgia. NEUROLOGIC: Denies headache, numbness, dizziness, or weakness. PSYCHIATRIC: Denies anxiety or depression. [facility] Past Medical History Medical History Anxiety Asthma Chronic hyponatremia Chronic pain syndrome Chronic, continuous use of opioids Coronary artery disease Angioplasty of a diagonal lesion in 01/2018. Cardiac catheterization 06/2019 showed patent coronary arteries. Deep venous thrombosis Degenerative joint disease involving multiple joints Depression Gastroesophageal reflux disease Heart failure with preserved ejection fraction Hiatal hernia Hyperlipidemia Hypertension Hypothyroidism Irritable bowel syndrome Obstructive sleep apnea Noncompliant with CPAP. Paroxysmal A-fib Peptic ulcer Peripheral neuropathy Pneumonia Rheumatoid arthritis Seasonal allergies Type 2 diabetes mellitus without complications Diet-controlled. Hemoglobin A1c was 5.7% on 01/24/2021. Surgical History Surgical History History of appendectomy History of arthroscopy of both shoulders History of cardiac catheterization Angioplasty of a diagonal stenosis 01/2018. Cardiac catheterization 06/2019 showed patent coronary arteries. History of carpal tunnel release History of cataract extraction History of cholecystectomy History of foot surgery History of hysterectomy History of phacoemulsification of cataract with intraocular lens implantation Family History Family History Grandparent Diabetes mellitus Father Acute myocardial infarction Diabetes mellitus Hypertension Mother Hypertensi
[2023-05-21 07:50] LABS: NT Pro B Type Natriuretic Pept 897 pg/mL (19.9-100); Troponin I < 0.012 ng/mL (0.000-0.034)
[2023-05-21 08:02] LABS: Influenza A QL RT-PCR Negative (Negative); Influenza B QL RT-PCR Negative (Negative); SARS-CoV-2 RNA PCR Negative (Negative)
[2023-05-21] MEDS: MAGNESIUM SULF 1 GM/D5W 100 ML 1 GM/100 ML BAG IVPB (08:14)
--- NOTE | 2023-05-21 09:00 | PC.NURSE ---
ATTEMPTED TO STRAIGHT CATH PT. NO URINE OBTAINED. AWARE. OK TO WAIT FOR UA
[2023-05-21] MEDS: AZITHROMYCIN 500 MG/NS 250 ML 500 MG/250 ML BAG 250 MG IVPB (09:30)
[2023-05-21 10:51] LABS: Appearance Urine Clear (Clear); Bilirubin Urine Negative (Negative); Blood Urine Negative (Negative); Color Urine Yellow (Yellow); Glucose Urine UA Negative (Negative); Ketones Urine Negative (Negative); Leukocyte Esterase Ur Negative LEU/UL (Negative); Nitrate Urine Negative (Negative); Protein Urine Negative (Negative); Specific Grav Ur 1.011 (1.001-1.035); pH Urine 6.5 (5.0-9.0)
[2023-05-21 10:53] LABS: Add Urine Microscopic? NO
[2023-05-21 12:27] LABS: Troponin I < 0.012 ng/mL (0.000-0.034)
--- NOTE | 2023-05-21 13:50 | PC.NURSE ---
This patient, Aracely Spear, was admitted to 3 [facility] Surg Room 302-01 05/21/23 @ 1055. Patient/family oriented to hospital policies and general routines including ID bracelet, bed and alarms, visiting hours, pain management, procedures, bathroom and other care routines, personal items, smoking policy, room service/diet, and visiting hours. Information on how to activate the Rapid Response Team has been discussed. Patient/Family are encouraged to report perceived risks to care and to ask questions if they do not understand what they are told or what they should do.
[2023-05-21] MEDS: SODIUM CHLORIDE 0.9% IV 1,000 ML 125 ML IV CONT ×2 (14:15→23:28)
[2023-05-21] MEDS: oxyCODONE/ACETAMINOPHEN (*CRX) 10-325 MG TABLET 1 TAB PO ×2 (14:38→20:35)
--- NOTE | 2023-05-21 16:20 | PM.IMHP ---
H&P: HPI History of Present Illness Date/Time: 05/21/23 16:20 Chief Complaint: Generalized Weakness, SOB Narrative: 78 y/o F with PMH of A-Fib on Eliqu, HF with preserved EF per Echo on 03/17/23, asthma, RA, OA, DVT, HTN, HLD, ELVIRA w/o use of BiPAP, DM2, and GERD presents here with generalized weakness and shortness of breath. Patient reports general unwellness that began last night. Patient having difficulty articulating symptoms. Reports decreased ability to perform ADLs, such as getting up the toilet and ambulating. She endorses shortness of breath with associated chest tightness and stomach upset. She denies diarrhea, constipation, or changes in appetite. During evaluation in the ED, patient began experiencing intermittent episodes of fever, non-productive cough, and diaphoresis. Recently admitted here on 04/21/23 for headache and mild chest discomfort - found to have PNA, not requiring O2, and IV atb given. Review of Systems Review of Systems: All systems reviewed & are unremarkable except as noted in HPI and below PMFSH Past Medical History Medical History Anxiety Asthma Chronic hyponatremia Chronic pain syndrome Chronic, continuous use of opioids Coronary artery disease Angioplasty of a diagonal lesion in 01/2018. Cardiac catheterization 06/2019 showed patent coronary arteries. Deep venous thrombosis Degenerative joint disease involving multiple joints Depression Gastroesophageal reflux disease Heart failure with preserved ejection fraction Hiatal hernia Hyperlipidemia Hypertension Hypothyroidism Irritable bowel syndrome Obstructive sleep apnea Noncompliant with CPAP. Paroxysmal A-fib Peptic ulcer Peripheral neuropathy Pneumonia Rheumatoid arthritis Seasonal allergies Type 2 diabetes mellitus without complications Diet-controlled. Hemoglobin A1c was 5.7% on 01/24/2021. Surgical History Surgical History History of appendectomy History of arthroscopy of both shoulders History of cardiac catheterization Angioplasty of a diagonal stenosis 01/2018. Cardiac catheterization 06/2019 showed patent coronary arteries. History of carpal tunnel release History of cataract extraction History of cholecystectomy History of foot surgery History of hysterectomy History of phacoemulsification of cataract with intraocular lens implantation Family History Family History Grandparent Diabetes mellitus Father Acute myocardial infarction Diabetes mellitus Hypertension Mother Hypertension Diabetes mellitus Sibling Diabetes mellitus Hypertension Other Family history of cardiovascular disease Family history of malignant neoplasm of brain Social History Social History (Updated 05/21/23 @ 16:31 by Cherie Garcia APRN) Social History: The patient lives in [place]. Her recently passed. 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 Lifelong nonsmoker. No alcohol or illicit substance abuse. Per patient, POA is [employer], friend. Smoking status: Never smoker Alcohol intake: never Substance use: unknown Substance use type: marijuana Other substance usage details: Medical marijuana occassionally - 1 every 6 months Lack of Transportation: No Lack of Food: Never True Current Housing: I Have Housing Concerned About Future Housing: No Difficulty Paying Gas/Electric Bills: No Difficulty Paying for Meds: No Currently Unemployed: No Education: Associate Degree Difficulty w/ Childcare or Family Care: No Spiritual care concerns: No Agree to blood products: Yes Meds Home Medications and Allergies Home Medications Medication Instructions Recorded Confirmed Type aspirin 81 mg tablet,delayed 81 mg PO DAILY 07/29/19 05/21/23 History release (Adult Low Dose Aspirin) nitroglycerin 0.4 mg
[2023-05-21] MEDS: PIPERACILLIN/TAZ 4.5G/NS 100ML 4.5 GM/100 ML BAG IVPB ×2 (18:29→23:27)
[2023-05-21] MEDS: CEFEPIME 2 GM/NS 50 ML 2 GM/50 ML BAG IVPB (20:35)
[2023-05-21] MEDS: IBUPROFEN 200 MG TABLET PO (20:35)
[2023-05-21] MEDS: ATORVASTATIN 40 MG TABLET PO (20:35)
[2023-05-21] MEDS: APIXABAN 5 MG TABLET PO (20:35)
[2023-05-21] MEDS: TOLNAFTATE 1% POWDER 45 GM BTL 1 APPLIC TOPICAL (20:36)
[2023-05-22] VITALS (9 sets, daily range): BP systolic 147–192; BP diastolic 46–71; PULSE 62–80; RESP 12–16; TEMP 36.4–37; O2SAT 96–99
[2023-05-22] MEDS: oxyCODONE/ACETAMINOPHEN (*CRX) 10-325 MG TABLET 1 TAB PO ×4 (03:03→20:37)
[2023-05-22] MEDS: PIPERACILLIN/TAZ 4.5G/NS 100ML 4.5 GM/100 ML BAG IVPB ×3 (05:05→17:22)
[2023-05-22 06:51] LABS: Anion Gap 6 mmol/L (8-16); Blood Urea Nitrogen 12 mg/dL (7-17); Calcium 7.9 mg/dL (8.4-10.2); Carbon Dioxide 23 mmol/L (22-30); Chloride 99 mmol/L (98-107); Estimated Glomerular Filt Rate > 60; Glucose 101 mg/dL (65-110); Sodium 128 mmol/L (137-145)
[2023-05-22 06:56] LABS: Basophils Percent Auto 0.4 % (0.2-1.2); Eosinophils Absolute Auto 0.2 K/mm3 (0-0.3); Eosinophils Percent Auto 1.4 % (0-4.4); Hematocrit 29.4 % (37.0-47.0); Hemoglobin 9.4 g/dL (12.0-15.0); Immature Granulocyte Absolute 0.05 K/mm3 (0.00-0.031); Immature Granulocyte Percent A 0.5 % (0-0.5); Lymphocytes Absolute Auto 2.47 K/mm3 (0.9-3.2); Lymphocytes Percent Auto 22.2 % (18.3-44.2); Mean Corpuscular Hemoglobin 29.5 pg (26-34); Mean Corpuscular Volume 92.2 fl (80-100); Mean Platelet Volume 10.2 fl (7.4-10.4); Monocytes Absolute Auto 0.7 K/mm3 (0.1-0.6); Monocytes Percent Auto 6.2 % (2.6-8.5); Neutrophils Absolute Auto 7.7 K/mm3 (1.3-6.7); Neutrophils Percent Auto 69.3 % (45.5-73.1); Platelet Count Result 219 k/mm3 (150-375); Red Blood Count 3.19 M/mm3 (4.2-5.4); Red Cell Distribution Width 13.4 % (11.5-14.5); White Blood Count 11.1 K/mm3 (4.5-10.0)
[2023-05-22 07:26] LABS: Thyroid Stimulating Hormone Reflex 0.263 uIU/mL (0.465-4.68)
[2023-05-22] MEDS: CEFEPIME 2 GM/NS 50 ML 2 GM/50 ML BAG IVPB ×2 (07:45→20:32)
[2023-05-22 08:11] LABS: Free T4 Free Thyroxine Reflex 2.07 ng/dL (0.78-2.19)
[2023-05-22] MEDS: FLUTICASONE/SALMETEROL 115-21 MCG INHALER 1 PUFF 2 PUFF INHALATION ×2 (08:29→19:45)
[2023-05-22] MEDS: ARTIFICIAL TEARS OPHTH SOLN 15 ML BOTTLE 1 DROP EACH EYE (08:58)
[2023-05-22] MEDS: ASPIRIN 81 MG ENTERIC TABLET PO (08:59)
[2023-05-22] MEDS: APIXABAN 5 MG TABLET PO ×2 (08:59→20:32)
[2023-05-22] MEDS: busPIRone HCL 10 MG TABLET PO ×2 (08:59→17:22)
[2023-05-22] MEDS: dilTIAZem HCL CD 120 MG CAP.24HR PO (08:59)
[2023-05-22] MEDS: CYANOCOBALAMIN 1,000 MCG TABLET 1000 MCG PO (08:59)
[2023-05-22] MEDS: EZETIMIBE 10 MG TABLET PO (08:59)
[2023-05-22] MEDS: FLUTICASONE PROPIONATE 0.05% NA SPR 16 GM BTL (*BKC) 1 SPRAY NASAL ×2 (08:59→20:34)
[2023-05-22] MEDS: FOLIC ACID 1 MG TABLET PO (09:00)
[2023-05-22] MEDS: MAGNESIUM OXIDE 400 MG TABLET PO (09:00)
[2023-05-22] MEDS: MONTELUKAST SODIUM 10 MG TABLET PO (09:00)
[2023-05-22] MEDS: PANTOPRAZOLE 40 MG TABLET PO ×2 (09:00→20:33)
[2023-05-22] MEDS: LORATADINE 10 MG TABLET PO (09:00)
[2023-05-22] MEDS: SODIUM CHLORIDE 1 GM TABLET PO ×2 (09:00→17:22)
[2023-05-22] MEDS: SPIRONOLACTONE 12.5 MG TABLET PO (09:00)
[2023-05-22] MEDS: IBUPROFEN 200 MG TABLET PO ×2 (09:00→20:33)
[2023-05-22] MEDS: LEVOTHYROXINE SODIUM 88 MCG TABLET PO (09:00)
[2023-05-22] MEDS: TOLNAFTATE 1% POWDER 45 GM BTL 1 APPLIC TOPICAL ×2 (09:01→20:34)
[2023-05-22 10:13] LABS: Total Triiodothyronine (T3) 0.65 NG/ML (0.97-1.69)
[2023-05-22] MEDS: SODIUM CHLORIDE 0.9% IV 1,000 ML 125 ML IV CONT (10:35)
--- NOTE | 2023-05-22 10:45 | PM.IMPN ---
Progress Note: A&P Assessment and Plan (1) Pneumonia: Qualifiers: Laterality: unspecified laterality Lung location: unspecified part of lung Pneumonia type: due to unspecified organism Qualified Code(s): J18.9 - Pneumonia, unspecified organism Code(s): J18.9 - Pneumonia, unspecified organism Status: Acute Assessment and Plan: Patient on room air. Recurrent pneumonia. Antibiotics were escalated by admitting provider. (2) Gastroesophageal reflux disease: Qualifiers: Esophagitis presence: esophagitis presence not specified Qualified Code(s): K21.9 - Gastro-esophageal reflux disease without esophagitis Code(s): K21.9 - Gastro-esophageal reflux disease without esophagitis Status: Acute Assessment and Plan: Pantoprazole changed to q12h to attempt to decrease morning GERD symptoms (3) Hypertension: Qualifiers: Hypertension type: unspecified Qualified Code(s): I10 - Essential (primary) hypertension Code(s): I10 - Essential (primary) hypertension Status: Chronic Assessment and Plan: chronic hypertension, initial home antihypertensives were held so patient was very hypertensive this afternoon. (4) Type 2 diabetes mellitus without complications: Qualifiers: Diabetes mellitus terminal gauger insulin use: without terminal gauger use Qualified Code(s): E11.9 - Type 2 diabetes mellitus without complications Code(s): E11.9 - Type 2 diabetes mellitus without complications Status: Acute Assessment and Plan: ACHS finger stick glucose and diabetic diet (5) Chronic hyponatremia: Code(s): E87.1 - Hypo-osmolality and hyponatremia Status: Acute Assessment and Plan: Chronic hyponatremia, stable (6) Heart failure with preserved ejection fraction: Qualifiers: Heart failure chronicity: chronic Qualified Code(s): I50.32 - Chronic diastolic (congestive) heart failure Code(s): I50.30 - Unspecified diastolic (congestive) heart failure Status: Acute Assessment and Plan: Patient did not seem fluid overloaded (7) Obstructive sleep apnea: Code(s): G47.33 - Obstructive sleep apnea (adult) (pediatric) Status: Acute Assessment and Plan: chronically noncompliant Plan Continue IV antibiotics Daily labs ACHS glucose with insulin correction Time Spent With Patient Time with patient: Greater than 35 minutes Subjective Date/time seen: 05/22/23 10:45 Interval history: This is an 78-year-old female patient independent with activities of daily living lives on her own in a home nearby who returns to the hospital about 1 month after her last admission. Patient was having difficulty breathing and x-ray showed atelectasis versus pneumonia. Patient admitted for pneumonia. She had been in hospital quite frequently over the summer admitting provider felt we should broaden spectrum antibiotics for recurrent pneumonia. Patient reports cough but does not want cough medicine because she wants to clear her lungs if possible. She also has a history CHF. Patient has a history of and is stable compared to prior. Patient complained of acid reflux in the mornings. Review of Systems Review of Systems: All systems reviewed & are unremarkable except as noted in HPI and below Exam Narrative: GENERAL: appears younger than stated age, alert and oriented, HEENT: Pupils are equally round and briskly reactive to light. Extraocular muscles are intact. Oral mucous membranes are moist without lesions. NECK: The patient has no noted JVD. No adenopathy is appreciated. CHEST/LUNGS: Lungs are diminished and slight crackles HEART: The patient has a regular rate and rhythm. No murmurs, rubs, or gallops are appreciated. ABDOMEN: The patient's abdomen is soft, nontender, and nondistended. Bowel sounds are positive. No peritoneal signs EXTREMITIES: minimal ankle swelling nonpitting edema SKIN
--- NOTE | 2023-05-22 14:18 | PC.NURSE ---
Manuelito Blunt notified of BP 192/71.
[2023-05-22] MEDS: NEBIVOLOL HCL 5 MG TABLET PO (15:15)
[2023-05-22] MEDS: VALSARTAN 160 MG TABLET PO (15:15)
[2023-05-22 16:42] LABS: Glucose Point of Care 112 mg/dl (65-105)
[2023-05-22] MEDS: ATORVASTATIN 40 MG TABLET PO (20:32)
[2023-05-22 20:41] LABS: Glucose Point of Care 166 mg/dl (65-105)
[2023-05-23] VITALS (8 sets, daily range): BP systolic 146–194; BP diastolic 55–72; PULSE 55–67; RESP 12–16; TEMP 36.1–36.7; O2SAT 96–100
[2023-05-23] MEDS: PIPERACILLIN/TAZ 4.5G/NS 100ML 4.5 GM/100 ML BAG IVPB ×2 (00:02→06:29)
[2023-05-23] MEDS: oxyCODONE/ACETAMINOPHEN (*CRX) 10-325 MG TABLET 1 TAB PO ×4 (03:59→22:55)
[2023-05-23] MEDS: VERAPAMIL HCL 40 MG TABLET PO ×2 (05:39→23:50)
[2023-05-23 06:13] LABS: Basophils Percent Auto 0.4 % (0.2-1.2); Eosinophils Absolute Auto 0.2 K/mm3 (0-0.3); Eosinophils Percent Auto 1.8 % (0-4.4); Hematocrit 31.6 % (37.0-47.0); Hemoglobin 10.2 g/dL (12.0-15.0); Immature Granulocyte Absolute 0.03 K/mm3 (0.00-0.031); Immature Granulocyte Percent A 0.3 % (0-0.5); Lymphocytes Absolute Auto 2.27 K/mm3 (0.9-3.2); Lymphocytes Percent Auto 22.2 % (18.3-44.2); Mean Corpuscular HGB Conc 32.3 g/dl (32-36); Mean Corpuscular Hemoglobin 29.2 pg (26-34); Mean Corpuscular Volume 90.5 fl (80-100); Mean Platelet Volume 9.9 fl (7.4-10.4); Monocytes Absolute Auto 0.7 K/mm3 (0.1-0.6); Neutrophils Percent Auto 68.3 % (45.5-73.1); Platelet Count Result 250 k/mm3 (150-375); Red Blood Count 3.49 M/mm3 (4.2-5.4); Red Cell Distribution Width 13.3 % (11.5-14.5); White Blood Count 10.2 K/mm3 (4.5-10.0)
[2023-05-23 06:31] LABS: Anion Gap 10 mmol/L (8-16); Blood Urea Nitrogen 11 mg/dL (7-17); Calcium 8.7 mg/dL (8.4-10.2); Carbon Dioxide 22 mmol/L (22-30); Chloride 103 mmol/L (98-107); Estimated Glomerular Filt Rate > 60; Glucose 137 mg/dL (65-110); Potassium 4.1 mmol/L (3.4-5.0); Sodium 135 mmol/L (137-145)
[2023-05-23 07:45] LABS: Glucose Point of Care 130 mg/dl (65-105)
--- NOTE | 2023-05-23 08:00 | P.PNIM_ITS ---
Progress Note: A&P Assessment and Plan (1) Heart failure with preserved ejection fraction: Qualifiers: Heart failure chronicity: chronic Qualified Code(s): I50.32 - Chronic diastolic (congestive) heart failure Code(s): I50.30 - Unspecified diastolic (congestive) heart failure Status: Acute Assessment and Plan: * Presented to the ED with complaints of shortness of breath, intermittent chest pain, and dry cough * Chest xray appears better than last visit * Shortness of breath seems to be more closely related to CHF exacerbation vs PNA * Change antibiotics to a Zpak, stop cefepime and vanco * Echo from 03/2023 EF of 60-65% with indeterminate diastolic function * BNP 897 * Start IV lasix BID for now * Trend urine output * Daily weights * Continue home aspirin, spironolactone, valsartan, and Bystolic (2) Pneumonia: Qualifiers: Laterality: unspecified laterality Lung location: unspecified part of lung Pneumonia type: due to unspecified organism Qualified Code(s): J18.9 - Pneumonia, unspecified organism Code(s): J18.9 - Pneumonia, unspecified organism Status: Acute Assessment and Plan: * Chest xray does indicate PNA, reviewed xray personally, looks better than the one last month * Seems to be more related to CHF over PNA * Change antibiotic to Zpak * Lasix started * Trend respiratory status * Currently on room air * Repeat chest xray in the am and on admission (3) Gastroesophageal reflux disease: Qualifiers: Esophagitis presence: esophagitis presence not specified Qualified Code(s): K21.9 - Gastro-esophageal reflux disease without esophagitis Code(s): K21.9 - Gastro-esophageal reflux disease without esophagitis Status: Acute Assessment and Plan: * Pantoprazole changed to q12h * Symptoms more stable (4) Hypertension: Qualifiers: Hypertension type: unspecified Qualified Code(s): I10 - Essential (primary) hypertension Code(s): I10 - Essential (primary) hypertension Status: Chronic Assessment and Plan: * Current BP is 151/60 * Continue home medications * trend BP * Adjust therapy as indicated (5) Type 2 diabetes mellitus without complications: Qualifiers: Diabetes mellitus supervisor intermediates insulin use: without supervisor intermediates use Qualified Code(s): E11.9 - Type 2 diabetes mellitus without complications Code(s): E11.9 - Type 2 diabetes mellitus without complications Status: Acute Assessment and Plan: * Current glucose is 137 * Accu Cheks AC/HS * Trend glucose * Adjust therapy as indicated * ISS (6) Chronic hyponatremia: Code(s): E87.1 - Hypo-osmolality and hyponatremia Status: Acute Assessment and Plan: * Na did get down to 127 * Currently 135 * Chronic hyponatremia, stable * Continue home sodium tabs * Most likely related to pain medications (7) Obstructive sleep apnea: Code(s): G47.33 - Obstructive sleep apnea (adult) (pediatric) Status: Acute Assessment and Plan: chronically noncompliant Time Spent With Patient Time: 48 minutes Time with patient: Greater than 35 minutes Subjective Date/time seen: 05/23/23 08 Interval history: 05/23/23799 susu
--- NOTE | 2023-05-23 08:00 | PM.IMPN ---
Progress Note: A&P Assessment and Plan (1) Heart failure with preserved ejection fraction: Qualifiers: Heart failure chronicity: chronic Qualified Code(s): I50.32 - Chronic diastolic (congestive) heart failure Code(s): I50.30 - Unspecified diastolic (congestive) heart failure Status: Acute Assessment and Plan: Presented to the ED with complaints of shortness of breath, intermittent chest pain, and dry cough Chest xray appears better than last visit Shortness of breath seems to be more closely related to CHF exacerbation vs PNA Change antibiotics to a Zpak, stop cefepime and vanco Echo from 03/2023 EF of 60-65% with indeterminate diastolic function BNP 897 Start IV lasix BID for now Trend urine output Daily weights Continue home aspirin, spironolactone, valsartan, and Bystolic (2) Pneumonia: Qualifiers: Laterality: unspecified laterality Lung location: unspecified part of lung Pneumonia type: due to unspecified organism Qualified Code(s): J18.9 - Pneumonia, unspecified organism Code(s): J18.9 - Pneumonia, unspecified organism Status: Acute Assessment and Plan: Chest xray does indicate PNA, reviewed xray personally, looks better than the one last month Seems to be more related to CHF over PNA Change antibiotic to Zpak Lasix started Trend respiratory status Currently on room air Repeat chest xray in the am and on admission (3) Gastroesophageal reflux disease: Qualifiers: Esophagitis presence: esophagitis presence not specified Qualified Code(s): K21.9 - Gastro-esophageal reflux disease without esophagitis Code(s): K21.9 - Gastro-esophageal reflux disease without esophagitis Status: Acute Assessment and Plan: Pantoprazole changed to q12h Symptoms more stable (4) Hypertension: Qualifiers: Hypertension type: unspecified Qualified Code(s): I10 - Essential (primary) hypertension Code(s): I10 - Essential (primary) hypertension Status: Chronic Assessment and Plan: Current BP is 151/60 Continue home medications trend BP Adjust therapy as indicated (5) Type 2 diabetes mellitus without complications: Qualifiers: Diabetes mellitus roasterman insulin use: without roasterman use Qualified Code(s): E11.9 - Type 2 diabetes mellitus without complications Code(s): E11.9 - Type 2 diabetes mellitus without complications Status: Acute Assessment and Plan: Current glucose is 137 Accu Cheks AC/HS Trend glucose Adjust therapy as indicated ISS (6) Chronic hyponatremia: Code(s): E87.1 - Hypo-osmolality and hyponatremia Status: Acute Assessment and Plan: Na did get down to 127 Currently 135 Chronic hyponatremia, stable Continue home sodium tabs Most likely related to pain medications (7) Obstructive sleep apnea: Code(s): G47.33 - Obstructive sleep apnea (adult) (pediatric) Status: Acute Assessment and Plan: chronically noncompliant Time Spent With Patient Time: 48 minutes Time with patient: Greater than 35 minutes Subjective Date/time seen: 05/23/23799 Interval history: 05/23/23799 patient is sitting on the side the bed. Patient is pretty dyscontrol as the IV pole has been beeping which she stated will drive anybody in [facility]. She denies any current nausea, vomiting, diarrhea, sweats, fevers, chills. She did state that she has been having on and off chest pain however it has been very intermittent. She also stated that her blood pressures also been super elevated. She does have a cough which she stated is dry. She also stated that she has sort of short of breath. Patient get a low disgruntled to be talk about discharge. Patient feels she should stay as long as it takes because she is tired of co
[2023-05-23] MEDS: CEFEPIME 2 GM/NS 50 ML 2 GM/50 ML BAG IVPB (08:24)
[2023-05-23] MEDS: dilTIAZem HCL CD 120 MG CAP.24HR PO (08:25)
[2023-05-23] MEDS: FLUTICASONE/SALMETEROL 115-21 MCG INHALER 1 PUFF 2 PUFF INHALATION ×2 (08:25→21:25)
[2023-05-23] MEDS: CYANOCOBALAMIN 1,000 MCG TABLET 1000 MCG PO (08:25)
[2023-05-23] MEDS: NEBIVOLOL HCL 5 MG TABLET PO (08:25)
[2023-05-23] MEDS: MAGNESIUM OXIDE 400 MG TABLET PO (08:25)
[2023-05-23] MEDS: APIXABAN 5 MG TABLET PO ×2 (08:25→20:39)
[2023-05-23] MEDS: EZETIMIBE 10 MG TABLET PO (08:26)
[2023-05-23] MEDS: SODIUM CHLORIDE 1 GM TABLET PO ×2 (08:26→17:04)
[2023-05-23] MEDS: MONTELUKAST SODIUM 10 MG TABLET PO (08:26)
[2023-05-23] MEDS: IBUPROFEN 200 MG TABLET PO ×2 (08:26→20:39)
[2023-05-23] MEDS: SPIRONOLACTONE 12.5 MG TABLET PO (08:26)
[2023-05-23] MEDS: LORATADINE 10 MG TABLET PO (08:26)
[2023-05-23] MEDS: FOLIC ACID 1 MG TABLET PO (08:26)
[2023-05-23] MEDS: VALSARTAN 160 MG TABLET PO (08:26)
[2023-05-23] MEDS: ASPIRIN 81 MG ENTERIC TABLET PO (08:26)
[2023-05-23] MEDS: PANTOPRAZOLE 40 MG TABLET PO ×2 (08:26→20:39)
[2023-05-23] MEDS: busPIRone HCL 10 MG TABLET PO ×2 (08:26→17:04)
[2023-05-23] MEDS: FLUTICASONE PROPIONATE 0.05% NA SPR 16 GM BTL (*BKC) 1 SPRAY NASAL ×2 (08:27→20:40)
[2023-05-23] MEDS: TOLNAFTATE 1% POWDER 45 GM BTL 1 APPLIC TOPICAL ×2 (08:27→20:42)
[2023-05-23] MEDS: FUROSEMIDE INJ 40 MG/4 ML VIAL IV PUSH ×2 (08:59→17:05)
[2023-05-23] MEDS: AZITHROMYCIN 250 MG TABLET 500 MG PO (09:00)
[2023-05-23 11:44] LABS: Glucose Point of Care 189 mg/dl (65-105)
[2023-05-23 13:33] LABS: NT Pro B Type Natriuretic Pept 1910 pg/mL (19.9-100)
[2023-05-23 16:45] LABS: Glucose Point of Care 91 mg/dl (65-105)
[2023-05-23] MEDS: ATORVASTATIN 40 MG TABLET PO (20:39)
[2023-05-23 20:53] LABS: Glucose Point of Care 148 mg/dl (65-105)
[2023-05-24] VITALS (16 sets, daily range): BP systolic 118–212; BP diastolic 50–82; PULSE 67–92; RESP 14–24; TEMP 36.1–36.9; O2SAT 96–100
[2023-05-24] MEDS: oxyCODONE/ACETAMINOPHEN (*CRX) 10-325 MG TABLET 1 TAB PO ×4 (04:58→23:00)
[2023-05-24] MEDS: hydrALAZINE HCL 20 MG/ML VIAL IV PUSH (05:31)
[2023-05-24] MEDS: LEVOTHYROXINE SODIUM 88 MCG TABLET PO (05:31)
[2023-05-24] MEDS: NITROGLYCERIN SL 0.4 MG TABLET SUBLINGUAL ×2 (05:46→06:25)
[2023-05-24 06:21] LABS: Basophils Absolute Auto 0.1 K/mm3 (0.0-0.1); Basophils Percent Auto 0.5 % (0.2-1.2); Eosinophils Absolute Auto 0.2 K/mm3 (0-0.3); Hematocrit 32.3 % (37.0-47.0); Hemoglobin 11.1 g/dL (12.0-15.0); Immature Granulocyte Absolute 0.05 K/mm3 (0.00-0.031); Immature Granulocyte Percent A 0.5 % (0-0.5); Lymphocytes Absolute Auto 2.97 K/mm3 (0.9-3.2); Lymphocytes Percent Auto 30.8 % (18.3-44.2); Mean Corpuscular HGB Conc 34.4 g/dl (32-36); Mean Corpuscular Hemoglobin 29.7 pg (26-34); Mean Corpuscular Volume 86.4 fl (80-100); Mean Platelet Volume 9.7 fl (7.4-10.4); Monocytes Absolute Auto 0.8 K/mm3 (0.1-0.6); Monocytes Percent Auto 8.3 % (2.6-8.5); Neutrophils Absolute Auto 5.6 K/mm3 (1.3-6.7); Neutrophils Percent Auto 57.9 % (45.5-73.1); Platelet Count Result 294 k/mm3 (150-375); Red Blood Count 3.74 M/mm3 (4.2-5.4); White Blood Count 9.7 K/mm3 (4.5-10.0)
--- NOTE | 2023-05-24 06:22 | ECG_ITS ---
Measurements Intervals [place] Rate: 77 P: 69 [place]: 179 QRS: -39 QRSD: 96 T: -1 QT: 403 QTc: 456 Interpretive Statements SINUS RHYTHM LEFT AXIS DEVIATION DELAYED PRECORDIAL R/S TRANSITION VOLTAGE CRITERIA FOR LVH BORDERLINE T WAVE ABNORMALITY- INFERIOR LEADS BASELINE ARTIFACT- II, III, AVR, AVL, AVF BORDERLINE ECG COMPARED TO ECG 05/21/2023 06:29:45 NO SIGNIFICANT CHANGES Electronically Signed On 05-24-2023 7:01:03 CDT by Jasvir Steele D.O.
[2023-05-24 06:24] LABS: Glucose Point of Care 153 mg/dl (65-105)
[2023-05-24 07:00] LABS: Anion Gap 13 mmol/L (8-16); Blood Urea Nitrogen 17 mg/dL (7-17); Calcium 8.8 mg/dL (8.4-10.2); Carbon Dioxide 28 mmol/L (22-30); Chloride 91 mmol/L (98-107); Estimated Glomerular Filt Rate 48; Glucose 125 mg/dL (65-110); Sodium 132 mmol/L (137-145)
[2023-05-24 07:15] LABS: Troponin I < 0.012 ng/mL (0.000-0.034)
--- NOTE | 2023-05-24 07:25 | PC.NURSE ---
Called a rapid response this morning PT was having chest pain, high blood pressure 190/60 and was weak. EKG was normal gave 2x nitro and 20 mg hydralazine IV push.
[2023-05-24 07:38] LABS: Glucose Point of Care 156 mg/dl (65-105)
[2023-05-24] MEDS: MAGNESIUM OXIDE 400 MG TABLET PO ×2 (08:29→16:45)
[2023-05-24] MEDS: busPIRone HCL 10 MG TABLET PO ×2 (08:29→16:46)
[2023-05-24] MEDS: CYANOCOBALAMIN 1,000 MCG TABLET 1000 MCG PO (08:29)
[2023-05-24] MEDS: LORATADINE 10 MG TABLET PO (08:29)
[2023-05-24] MEDS: FOLIC ACID 1 MG TABLET PO (08:29)
[2023-05-24] MEDS: MONTELUKAST SODIUM 10 MG TABLET PO (08:29)
[2023-05-24] MEDS: IBUPROFEN 200 MG TABLET PO ×2 (08:29→21:06)
[2023-05-24] MEDS: APIXABAN 5 MG TABLET PO ×2 (08:30→21:05)
[2023-05-24] MEDS: EZETIMIBE 10 MG TABLET PO (08:30)
[2023-05-24] MEDS: PANTOPRAZOLE 40 MG TABLET PO ×2 (08:30→21:05)
[2023-05-24] MEDS: FUROSEMIDE INJ 40 MG/4 ML VIAL IV PUSH ×2 (08:30→16:46)
[2023-05-24] MEDS: TOLNAFTATE 1% POWDER 45 GM BTL 1 APPLIC TOPICAL ×2 (08:30→21:07)
[2023-05-24] MEDS: FLUTICASONE PROPIONATE 0.05% NA SPR 16 GM BTL (*BKC) 1 SPRAY NASAL ×2 (08:30→21:06)
[2023-05-24] MEDS: SODIUM CHLORIDE 1 GM TABLET PO ×2 (08:30→16:46)
[2023-05-24] MEDS: AZITHROMYCIN 250 MG TABLET 500 MG PO (08:30)
[2023-05-24] MEDS: ASPIRIN 81 MG ENTERIC TABLET PO (08:30)
[2023-05-24 09:59] LABS: Magnesium 1.3 mg/dL (1.6-2.3)
--- NOTE | 2023-05-24 10:01 | PM.IMPN ---
Progress Note: A&P Assessment and Plan (1) Heart failure with preserved ejection fraction: Qualifiers: Heart failure chronicity: chronic Qualified Code(s): I50.32 - Chronic diastolic (congestive) heart failure Code(s): I50.30 - Unspecified diastolic (congestive) heart failure Status: Acute Assessment and Plan: Patient breathing is much better now. Plan is to continue current treatment. Patient blood pressure was slightly high, will resume Bystolic. Monitor closely. (2) Pneumonia: Qualifiers: Laterality: unspecified laterality Lung location: unspecified part of lung Pneumonia type: due to unspecified organism Qualified Code(s): J18.9 - Pneumonia, unspecified organism Code(s): J18.9 - Pneumonia, unspecified organism Status: Acute Assessment and Plan: Patient breathing is much better. Will continue with IV antibiotics. Repeat chest x-ray in the morning. (3) Gastroesophageal reflux disease: Qualifiers: Esophagitis presence: esophagitis presence not specified Qualified Code(s): K21.9 - Gastro-esophageal reflux disease without esophagitis Code(s): K21.9 - Gastro-esophageal reflux disease without esophagitis Status: Acute Assessment and Plan: Pantoprazole changed to q12h Symptoms more stable (4) Hypertension: Qualifiers: Hypertension type: unspecified Qualified Code(s): I10 - Essential (primary) hypertension Code(s): I10 - Essential (primary) hypertension Status: Chronic Assessment and Plan: Current BP is slightly high Will resume home medications trend BP Adjust therapy as indicated (5) Type 2 diabetes mellitus without complications: Qualifiers: 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 (6) Chronic hyponatremia: Code(s): E87.1 - Hypo-osmolality and hyponatremia Status: Acute Assessment and Plan: Chronic hyponatremia, stable Continue home sodium tabs Most likely related to pain medications (7) Obstructive sleep apnea: Code(s): G47.33 - Obstructive sleep apnea (adult) (pediatric) Status: Acute Assessment and Plan: chronically noncompliant Subjective Date/time seen: 05/24/23 10:01 Interval history: 78 y/o F with PMH of A-Fib on Eliquis, HF with preserved EF per Echo on 03/17/23, asthma, RA, OA, DVT, HTN, HLD, ELVIRA w/o use of BiPAP, DM2, and GERD presents here with generalized weakness and shortness of breath. Patient was seen during the morning rounds today. Patient blood pressure is slightly high. Patient breathing is better. Decreased shortness of breath. , no chest pain. No abdominal pain, no nausea, no vomiting. Mood stable. Review of Systems Review of Systems: All systems reviewed & are unremarkable except as noted in HPI and below Exam Narrative: General: well-nourished, well-appearing 78-year-old female, sitting on the side of the bed, comfortable, NARD Neuro: awake, alert and oriented x4, speech clear, no focal neuro deficits noted HEENMT: normocephalic, atraumatic, EOMI, sclerae anicteric, moist oral mucosa Respiratory: Air entry is much better. few rales at the bases. Cardio: bradycardiac, irregular rhythm with S1-S2 Abdomen: nondistended, normoactive bowel sounds, soft, nontender to palpation Extremities: 3+ pitting edema bilaterally, no erythema, or tenderness to palpation, DP pulses 2+ bilaterally Skin: no rashes or lesions, warm and dry Psych: appropriate mood and affect, judgment and insight intact Const: General: comfortable and no acute distress Other:
--- NOTE | 2023-05-24 10:05 | PC.NURSE ---
Pt c/o of chest pain in epigastric area. Pt refused respiratory treatments. Upon further questioning pt, who was lying supine in bed, pt admitted to long history of GERD, hiatel hernia, et. al. I explained to pt that she just took her meds with a lot of water and ate all of her breakfast. I explained to pt that she needs to sit up as close to 90 degrees for at least an hour after eating or drinking anything. Pt stated she was sitting up. I explained to pt that she was lying down and was at best 30 degrees elevated. I sat pt's bed up fully and within a couple of minutes pt stated that the pain was significantly less and decreasing.
[2023-05-24 11:40] LABS: Glucose Point of Care 175 mg/dl (65-105)
[2023-05-24 16:41] LABS: Glucose Point of Care 93 mg/dl (65-105)
[2023-05-24] MEDS: FLUTICASONE/SALMETEROL 115-21 MCG INHALER 1 PUFF 2 PUFF INHALATION (20:17)
[2023-05-24] MEDS: ATORVASTATIN 40 MG TABLET PO (21:05)
[2023-05-24] MEDS: dilTIAZem HCL CD 120 MG CAP.24HR PO (21:08)
[2023-05-24 22:24] LABS: Glucose Point of Care 144 mg/dl (65-105)
[2023-05-24 23:13] LABS: Pneumococcal Antigen Urine Not Detected (Not Detected)
[2023-05-25] VITALS (12 sets, daily range): BP systolic 122–141; BP diastolic 54–72; PULSE 64–97; RESP 14–20; TEMP 36.3–36.9; O2SAT 98–100
[2023-05-25] MEDS: oxyCODONE/ACETAMINOPHEN (*CRX) 10-325 MG TABLET 1 TAB PO ×4 (04:45→23:09)
[2023-05-25 05:27] LABS: Basophils Percent Auto 0.4 % (0.2-1.2); Eosinophils Absolute Auto 0.1 K/mm3 (0-0.3); Eosinophils Percent Auto 1.5 % (0-4.4); Hematocrit 33.1 % (37.0-47.0); Hemoglobin 10.9 g/dL (12.0-15.0); Immature Granulocyte Absolute 0.04 K/mm3 (0.00-0.031); Immature Granulocyte Percent A 0.4 % (0-0.5); Lymphocytes Absolute Auto 3.29 K/mm3 (0.9-3.2); Lymphocytes Percent Auto 35.5 % (18.3-44.2); Mean Corpuscular HGB Conc 32.9 g/dl (32-36); Mean Corpuscular Hemoglobin 28.9 pg (26-34); Mean Corpuscular Volume 87.8 fl (80-100); Mean Platelet Volume 9.4 fl (7.4-10.4); Monocytes Absolute Auto 0.7 K/mm3 (0.1-0.6); Monocytes Percent Auto 7.7 % (2.6-8.5); Neutrophils Absolute Auto 5.1 K/mm3 (1.3-6.7); Neutrophils Percent Auto 54.5 % (45.5-73.1); Platelet Count Result 300 k/mm3 (150-375); Red Blood Count 3.77 M/mm3 (4.2-5.4); Red Cell Distribution Width 13.2 % (11.5-14.5); White Blood Count 9.3 K/mm3 (4.5-10.0)
[2023-05-25 05:35] LABS: Anion Gap 10 mmol/L (8-16); Blood Urea Nitrogen 21 mg/dL (7-17); Calcium 8.7 mg/dL (8.4-10.2); Carbon Dioxide 30 mmol/L (22-30); Chloride 89 mmol/L (98-107); Estimated Glomerular Filt Rate 43; Glucose 119 mg/dL (65-110); Potassium 3.4 mmol/L (3.4-5.0); Sodium 129 mmol/L (137-145)
[2023-05-25] MEDS: LEVOTHYROXINE SODIUM 88 MCG TABLET PO (06:39)
[2023-05-25 08:08] LABS: Magnesium 1.5 mg/dL (1.6-2.3)
[2023-05-25] MEDS: FLUTICASONE/SALMETEROL 115-21 MCG INHALER 1 PUFF 2 PUFF INHALATION ×2 (08:10→20:36)
[2023-05-25 08:16] LABS: Glucose Point of Care 134 mg/dl (65-105)
--- NOTE | 2023-05-25 08:16 | PM.IMPN ---
Progress Note: A&P Assessment and Plan (1) Heart failure with preserved ejection fraction: Qualifiers: Heart failure chronicity: chronic Qualified Code(s): I50.32 - Chronic diastolic (congestive) heart failure Code(s): I50.30 - Unspecified diastolic (congestive) heart failure Status: Acute Assessment and Plan: Preserved EF on March. She is breathing well but still easily winded. - I/O shows 2.9 liters up this admission. - Lasix 40mg bid to continue, slight uptick in creatinine to 1.2, consider dropping dose to daily tomorrow. - It would be preferable to see some net output on i/o. (2) Pneumonia: Qualifiers: Laterality: unspecified laterality Lung location: unspecified part of lung Pneumonia type: due to unspecified organism Qualified Code(s): J18.9 - Pneumonia, unspecified organism Code(s): J18.9 - Pneumonia, unspecified organism Status: Acute Assessment and Plan: Patient was febrile at 101.4 on admission. No fevers since initiation of abx. - CXR this am shows improvement - no infiltrate at this time. - Continue on current abx (rocephin/zith), likely able to complete course with 5-7 day duration if continued clinical stability. (3) Gastroesophageal reflux disease: Qualifiers: Esophagitis presence: esophagitis presence not specified Qualified Code(s): K21.9 - Gastro-esophageal reflux disease without esophagitis Code(s): K21.9 - Gastro-esophageal reflux disease without esophagitis Status: Acute Assessment and Plan: Stable symptoms on protonix bid. (4) Hypertension: Qualifiers: Hypertension type: unspecified Qualified Code(s): I10 - Essential (primary) hypertension Code(s): I10 - Essential (primary) hypertension Status: Chronic Assessment and Plan: Stable bp at 129/58 on current regimen. - Cont. home regimen. 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 Cont. current. (6) Chronic hyponatremia: Code(s): E87.1 - Hypo-osmolality and hyponatremia Status: Acute Assessment and Plan: Generally stable within her historical norms - Light free water restrict to 1500ml daily. - Repeat bmp in the am. (7) Obstructive sleep apnea: Code(s): G47.33 - Obstructive sleep apnea (adult) (pediatric) Status: Acute Assessment and Plan: Chronically noncompliant (8) Atypical chest pain: Code(s): R07.89 - Other chest pain Status: Acute Assessment and Plan: Resolved. Plan Patient is showing steady improvement over the hospitalization although this am still feeling fairly ill. Labs and VS are grossly stable without acute changes. Consider back to oral lasix tomorrow and possibly discharge to home with close o/p f/u. With her recent admissions very close o/p f/u is certainly advisable. Time Spent With Patient Time: >40 minutes. Subjective Date/time seen: 05/25/23 08:16 Interval history: Aracely states she feels like her breathing is stable, about the same as yesterday. She does not have new complaints or concerns. She does express feeling that she is still below her baseline in energy levels as well as still feeling ill. Appetite remains poor. Review of Systems Review of Systems: ROS negative across 10 systems other than as noted above. Exam Narrative: GENERAL APPEARANCE: Appears to be in no acute distress. HEAD: normocephalic atraumatic EYES: PERRL, EOMI. Vision grossly intact. ENT: Hearing grossly intact, no nasal discharge NECK: Neck supple, trachea midline. CARDIAC: Normal S1/S2. R
[2023-05-25] MEDS: FLUTICASONE PROPIONATE 0.05% NA SPR 16 GM BTL (*BKC) 1 SPRAY NASAL ×2 (08:31→21:41)
[2023-05-25] MEDS: FUROSEMIDE INJ 40 MG/4 ML VIAL IV PUSH ×2 (08:33→15:13)
[2023-05-25] MEDS: AZITHROMYCIN 250 MG TABLET 500 MG PO (08:33)
[2023-05-25] MEDS: busPIRone HCL 10 MG TABLET PO ×2 (08:34→15:12)
[2023-05-25] MEDS: MAGNESIUM OXIDE 400 MG TABLET PO ×2 (08:34→15:12)
[2023-05-25] MEDS: NEBIVOLOL HCL 5 MG TABLET PO (08:34)
[2023-05-25] MEDS: SPIRONOLACTONE 12.5 MG TABLET PO (08:34)
[2023-05-25] MEDS: FOLIC ACID 1 MG TABLET PO (08:34)
[2023-05-25] MEDS: SODIUM CHLORIDE 1 GM TABLET PO ×2 (08:34→15:12)
[2023-05-25] MEDS: MONTELUKAST SODIUM 10 MG TABLET PO (08:34)
[2023-05-25] MEDS: ASPIRIN 81 MG ENTERIC TABLET PO (08:34)
[2023-05-25] MEDS: APIXABAN 5 MG TABLET PO ×2 (08:34→21:42)
[2023-05-25] MEDS: VALSARTAN 160 MG TABLET PO (08:34)
[2023-05-25] MEDS: PANTOPRAZOLE 40 MG TABLET PO ×2 (08:34→21:42)
[2023-05-25] MEDS: EZETIMIBE 10 MG TABLET PO (08:34)
[2023-05-25] MEDS: LORATADINE 10 MG TABLET PO (08:35)
[2023-05-25] MEDS: IBUPROFEN 200 MG TABLET PO ×2 (08:35→21:42)
[2023-05-25] MEDS: TOLNAFTATE 1% POWDER 45 GM BTL 1 APPLIC TOPICAL ×2 (08:35→21:46)
[2023-05-25] MEDS: CYANOCOBALAMIN 1,000 MCG TABLET 1000 MCG PO (08:35)
[2023-05-25] MEDS: CALCIUM CARBONATE (TUMS) 500 MG (200 MG ELEMENTAL) PO (11:06)
[2023-05-25 12:06] LABS: Glucose Point of Care 141 mg/dl (65-105)
[2023-05-25] MEDS: MAGNESIUM SULF 1 GM/D5W 100 ML 1 GM/100 ML BAG IVPB (15:02)
[2023-05-25] MEDS: POTASSIUM CHLORIDE 20 MEQ ER TABLET PO (15:12)
[2023-05-25 16:53] LABS: Glucose Point of Care 127 mg/dl (65-105)
[2023-05-25 20:57] LABS: Glucose Point of Care 140 mg/dl (65-105)
[2023-05-25] MEDS: ATORVASTATIN 40 MG TABLET PO (21:42)
[2023-05-25] MEDS: dilTIAZem HCL CD 120 MG CAP.24HR PO (21:42)
[2023-05-26] VITALS (12 sets, daily range): BP systolic 134–145; BP diastolic 45–59; PULSE 64–80; RESP 14–17; TEMP 35.9–36.4; O2SAT 96–100
[2023-05-26 03:38] LABS: Legionella pneumophila Ag Ur Not Detected (Not Detected)
[2023-05-26] MEDS: LEVOTHYROXINE SODIUM 88 MCG TABLET PO (05:17)
[2023-05-26] MEDS: oxyCODONE/ACETAMINOPHEN (*CRX) 10-325 MG TABLET 1 TAB PO ×4 (05:17→23:39)
[2023-05-26 06:50] LABS: Basophils Absolute Auto 0.1 K/mm3 (0.0-0.1); Basophils Percent Auto 0.7 % (0.2-1.2); Eosinophils Absolute Auto 0.1 K/mm3 (0-0.3); Eosinophils Percent Auto 1.2 % (0-4.4); Hematocrit 33.3 % (37.0-47.0); Immature Granulocyte Absolute 0.04 K/mm3 (0.00-0.031); Immature Granulocyte Percent A 0.4 % (0-0.5); Lymphocytes Absolute Auto 3.23 K/mm3 (0.9-3.2); Lymphocytes Percent Auto 30.3 % (18.3-44.2); Mean Corpuscular Hemoglobin 29.3 pg (26-34); Mean Corpuscular Volume 88.6 fl (80-100); Mean Platelet Volume 9.3 fl (7.4-10.4); Monocytes Absolute Auto 0.7 K/mm3 (0.1-0.6); Monocytes Percent Auto 6.6 % (2.6-8.5); Neutrophils Absolute Auto 6.5 K/mm3 (1.3-6.7); Neutrophils Percent Auto 60.8 % (45.5-73.1); Platelet Count Result 323 k/mm3 (150-375); Red Blood Count 3.76 M/mm3 (4.2-5.4); Red Cell Distribution Width 13.2 % (11.5-14.5); White Blood Count 10.7 K/mm3 (4.5-10.0)
[2023-05-26 07:02] LABS: Anion Gap 10 mmol/L (8-16); Blood Urea Nitrogen 28 mg/dL (7-17); Calcium 8.8 mg/dL (8.4-10.2); Carbon Dioxide 27 mmol/L (22-30); Chloride 90 mmol/L (98-107); Estimated Glomerular Filt Rate 36; Glucose 121 mg/dL (65-110); Magnesium 2.2 mg/dL (1.6-2.3); Sodium 127 mmol/L (137-145)
[2023-05-26 07:48] LABS: Glucose Point of Care 144 mg/dl (65-105)
[2023-05-26] MEDS: busPIRone HCL 10 MG TABLET PO ×2 (09:15→17:43)
[2023-05-26] MEDS: SODIUM CHLORIDE 1 GM TABLET PO ×2 (09:15→17:43)
[2023-05-26] MEDS: NEBIVOLOL HCL 5 MG TABLET PO (09:16)
[2023-05-26] MEDS: EZETIMIBE 10 MG TABLET PO (09:16)
[2023-05-26] MEDS: LORATADINE 10 MG TABLET PO (09:16)
[2023-05-26] MEDS: PANTOPRAZOLE 40 MG TABLET PO ×2 (09:16→20:34)
[2023-05-26] MEDS: VALSARTAN 160 MG TABLET PO (09:17)
[2023-05-26] MEDS: IBUPROFEN 200 MG TABLET PO ×2 (09:17→20:34)
[2023-05-26] MEDS: MAGNESIUM OXIDE 400 MG TABLET PO ×2 (09:17→17:44)
[2023-05-26] MEDS: CYANOCOBALAMIN 1,000 MCG TABLET 1000 MCG PO (09:17)
[2023-05-26] MEDS: FOLIC ACID 1 MG TABLET PO (09:17)
[2023-05-26] MEDS: SPIRONOLACTONE 12.5 MG TABLET PO (09:18)
[2023-05-26] MEDS: TOLNAFTATE 1% POWDER 45 GM BTL 1 APPLIC TOPICAL ×2 (09:18→20:34)
[2023-05-26] MEDS: ASPIRIN 81 MG ENTERIC TABLET PO (09:18)
[2023-05-26] MEDS: APIXABAN 5 MG TABLET PO ×2 (09:18→20:32)
[2023-05-26] MEDS: MONTELUKAST SODIUM 10 MG TABLET PO (09:18)
[2023-05-26] MEDS: FLUTICASONE PROPIONATE 0.05% NA SPR 16 GM BTL (*BKC) 1 SPRAY NASAL ×2 (09:19→20:33)
[2023-05-26] MEDS: FLUTICASONE/SALMETEROL 115-21 MCG INHALER 1 PUFF 2 PUFF INHALATION ×2 (09:32→19:16)
[2023-05-26] MEDS: FUROSEMIDE 40 MG TABLET PO (09:33)
--- NOTE | 2023-05-26 11:30 | P.PNIM_ITS ---
Progress Note: A&P Assessment and Plan (1) Heart failure with preserved ejection fraction: Qualifiers: Heart failure chronicity: chronic Qualified Code(s): I50.32 - Chronic diastolic (congestive) heart failure Code(s): I50.30 - Unspecified diastolic (congestive) heart failure Status: Acute Assessment and Plan: * Presented to the ED with complaints of shortness of breath, intermittent chest pain, and dry cough * Chest xray appears better than last visit * Shortness of breath seems to be more closely related to CHF exacerbation vs PNA * Change antibiotics to a Zpak, stop cefepime and vanco * Echo from 03/2023 EF of 60-65% with indeterminate diastolic function * BNP 897 * Convert IV lasix to PO 40mg Daily * Trend urine output * In and Outs probably not accurate with unmeasured voids noted * Daily weights * Continue home aspirin, spironolactone, valsartan, and Bystolic (2) Pneumonia: Qualifiers: Laterality: unspecified laterality Lung location: unspecified part of lung Pneumonia type: due to unspecified organism Qualified Code(s): J18.9 - Pneumonia, unspecified organism Code(s): J18.9 - Pneumonia, unspecified organism Status: Acute Assessment and Plan: * Chest xray does indicate PNA, reviewed xray personally, looks better than the one last month * Repeat chest xray from 05/25/23 no active pulmonary disease * Seems to be more related to CHF over PNA * Stop azithromycin and ceftriaxone with current chest xray results * Lasix converted to PO * Trend respiratory status * Currently on room air * Resolved (3) Gastroesophageal reflux disease: Qualifiers: Esophagitis presence: esophagitis presence not specified Qualified Code(s): K21.9 - Gastro-esophageal reflux disease without esophagitis Code(s): K21.9 - Gastro-esophageal reflux disease without esophagitis Status: Acute Assessment and Plan: * Pantoprazole changed to q12h * Symptoms more stable (4) Hypertension: Qualifiers: Hypertension type: unspecified Qualified Code(s): I10 - Essential (primary) hypertension Code(s): I10 - Essential (primary) hypertension Status: Chronic Assessment and Plan: * Current BP is 144/59 * Continue home medications * trend BP * Adjust therapy as indicated (5) Type 2 diabetes mellitus without complications: Qualifiers: Diabetes mellitus senior care insulin use: without senior care use Qualified Code(s): E11.9 - Type 2 diabetes mellitus without complications Code(s): E11.9 - Type 2 diabetes mellitus without complications Status: Acute Assessment and Plan: * Current glucose is 121 * Accu Cheks AC/HS * Trend glucose * Adjust therapy as indicated * ISS (6) Chronic hyponatremia: Code(s): E87.1 - Hypo-osmolality and hyponatremia Status: Acute Assessment and Plan: * Na did get down to 127 * Currently 127 * Chronic hyponatremia, stable * Continue home sodium tabs * Most likely related to pain medications * Give 500ml IV bolus x 1 (7) Obstructive sleep apnea: Code(s): G47.33 - Obstructive sleep apnea (adult) (pediatric) Status: Acute Assessment and Plan: chronically noncompliant (8) Acute kidney failure:
--- NOTE | 2023-05-26 11:30 | PM.IMPN ---
Progress Note: A&P Assessment and Plan (1) Heart failure with preserved ejection fraction: Qualifiers: Heart failure chronicity: chronic Qualified Code(s): I50.32 - Chronic diastolic (congestive) heart failure Code(s): I50.30 - Unspecified diastolic (congestive) heart failure Status: Acute Assessment and Plan: Presented to the ED with complaints of shortness of breath, intermittent chest pain, and dry cough Chest xray appears better than last visit Shortness of breath seems to be more closely related to CHF exacerbation vs PNA Change antibiotics to a Zpak, stop cefepime and vanco Echo from 03/2023 EF of 60-65% with indeterminate diastolic function BNP 897 Convert IV lasix to PO 40mg Daily Trend urine output In and Outs probably not accurate with unmeasured voids noted Daily weights Continue home aspirin, spironolactone, valsartan, and Bystolic (2) Pneumonia: Qualifiers: Laterality: unspecified laterality Lung location: unspecified part of lung Pneumonia type: due to unspecified organism Qualified Code(s): J18.9 - Pneumonia, unspecified organism Code(s): J18.9 - Pneumonia, unspecified organism Status: Acute Assessment and Plan: Chest xray does indicate PNA, reviewed xray personally, looks better than the one last month Repeat chest xray from 05/25/23 no active pulmonary disease Seems to be more related to CHF over PNA Stop azithromycin and ceftriaxone with current chest xray results Lasix converted to PO Trend respiratory status Currently on room air Resolved (3) Gastroesophageal reflux disease: Qualifiers: Esophagitis presence: esophagitis presence not specified Qualified Code(s): K21.9 - Gastro-esophageal reflux disease without esophagitis Code(s): K21.9 - Gastro-esophageal reflux disease without esophagitis Status: Acute Assessment and Plan: Pantoprazole changed to q12h Symptoms more stable (4) Hypertension: Qualifiers: Hypertension type: unspecified Qualified Code(s): I10 - Essential (primary) hypertension Code(s): I10 - Essential (primary) hypertension Status: Chronic Assessment and Plan: Current BP is 144/59 Continue home medications trend BP Adjust therapy as indicated (5) Type 2 diabetes mellitus without complications: Qualifiers: Diabetes mellitus [facility] insulin use: without [facility] use Qualified Code(s): E11.9 - Type 2 diabetes mellitus without complications Code(s): E11.9 - Type 2 diabetes mellitus without complications Status: Acute Assessment and Plan: Current glucose is 121 Accu Cheks AC/HS Trend glucose Adjust therapy as indicated ISS (6) Chronic hyponatremia: Code(s): E87.1 - Hypo-osmolality and hyponatremia Status: Acute Assessment and Plan: Na did get down to 127 Currently 127 Chronic hyponatremia, stable Continue home sodium tabs Most likely related to pain medications Give 500ml IV bolus x 1 (7) Obstructive sleep apnea: Code(s): G47.33 - Obstructive sleep apnea (adult) (pediatric) Status: Acute Assessment and Plan: chronically noncompliant (8) Acute kidney failure: Qualifiers: Acute renal failure type: unspecified Qualified Code(s): N17.9 - Acute kidney failure, unspecified Code(s): N17.9 - Acute kidney failure, unspecified Status: Acute Assessment and Plan: Current Creatinine elevated at 1.40 Baseline 0.7-0.8 Most likely related to lasix Change lasix to PO for now Trend labs Adjust therapy as indicated Time Spent With Patient Time: 43 minutes Time with patient: Greater than 35 minutes Subjective Date/time seen: 05/26/23 1130 Interval history: 05/26/230 Patient is lying in b
[2023-05-26] MEDS: SODIUM CHLORIDE 0.9% IV 500 ML IV CONT (11:42)
[2023-05-26 11:46] LABS: Glucose Point of Care 173 mg/dl (65-105)
[2023-05-26 16:33] LABS: Glucose Point of Care 103 mg/dl (65-105)
[2023-05-26] MEDS: dilTIAZem HCL CD 120 MG CAP.24HR PO (20:32)
[2023-05-26] MEDS: ATORVASTATIN 40 MG TABLET PO (20:32)
[2023-05-26 23:23] LABS: Glucose Point of Care 200 mg/dl (65-105)
[2023-05-27] VITALS (9 sets, daily range): BP systolic 128–153; BP diastolic 49–57; PULSE 60–78; RESP 12–16; TEMP 36.2–36.3; O2SAT 97–100
[2023-05-27] MEDS: LEVOTHYROXINE SODIUM 88 MCG TABLET PO (05:36)
[2023-05-27] MEDS: oxyCODONE/ACETAMINOPHEN (*CRX) 10-325 MG TABLET 1 TAB PO ×2 (05:36→11:58)
--- NOTE | 2023-05-27 06:00 | PC.NURSE ---
This RN reviewed and approves of Shruthi Zuniga RN (license pending) charting and medication administrations.
[2023-05-27 06:45] LABS: Basophils Absolute Auto 0.1 K/mm3 (0.0-0.1); Basophils Percent Auto 0.7 % (0.2-1.2); Eosinophils Absolute Auto 0.2 K/mm3 (0-0.3); Eosinophils Percent Auto 1.8 % (0-4.4); Hematocrit 33.3 % (37.0-47.0); Hemoglobin 10.8 g/dL (12.0-15.0); Immature Granulocyte Absolute 0.05 K/mm3 (0.00-0.031); Immature Granulocyte Percent A 0.5 % (0-0.5); Lymphocytes Absolute Auto 3.72 K/mm3 (0.9-3.2); Lymphocytes Percent Auto 34.6 % (18.3-44.2); Mean Corpuscular HGB Conc 32.4 g/dl (32-36); Mean Corpuscular Volume 89.3 fl (80-100); Mean Platelet Volume 9.3 fl (7.4-10.4); Monocytes Absolute Auto 0.7 K/mm3 (0.1-0.6); Neutrophils Absolute Auto 6.1 K/mm3 (1.3-6.7); Neutrophils Percent Auto 56.4 % (45.5-73.1); Platelet Count Result 335 k/mm3 (150-375); Red Blood Count 3.73 M/mm3 (4.2-5.4); Red Cell Distribution Width 13.1 % (11.5-14.5); White Blood Count 10.8 K/mm3 (4.5-10.0)
[2023-05-27 06:55] LABS: Anion Gap 11 mmol/L (8-16); Blood Urea Nitrogen 32 mg/dL (7-17); Carbon Dioxide 28 mmol/L (22-30); Chloride 91 mmol/L (98-107); Estimated Glomerular Filt Rate 43; Glucose 116 mg/dL (65-110); Potassium 4.2 mmol/L (3.4-5.0); Sodium 130 mmol/L (137-145)
[2023-05-27 07:41] LABS: Glucose Point of Care 123 mg/dl (65-105)
[2023-05-27] MEDS: FLUTICASONE/SALMETEROL 115-21 MCG INHALER 1 PUFF 2 PUFF INHALATION (08:30)
--- NOTE | 2023-05-27 08:45 | PM.DS ---
DS: Admitting Diagnosis Discharge Date 05/27/23 0845 Admitting Diagnosis CHF exacerbation, possible pneumonia DS: Discharge Diagnosis Discharge Diagnosis (1) Heart failure with preserved ejection fraction: Qualifiers: Heart failure chronicity: chronic Qualified Code(s): I50.32 - Chronic diastolic (congestive) heart failure Code(s): I50.30 - Unspecified diastolic (congestive) heart failure Status: Acute Assessment and Plan: Presented to the ED with complaints of shortness of breath, intermittent chest pain, and dry cough Chest xray appears better than last visit Shortness of breath seems to be more closely related to CHF exacerbation vs PNA Change antibiotics to a Zpak, stop cefepime and vanco Echo from 03/2023 EF of 60-65% with indeterminate diastolic function BNP 897 Convert IV lasix to PO 40mg Daily Trend urine output In and Outs probably not accurate with unmeasured voids noted Daily weights Continue home aspirin, spironolactone, valsartan, and Bystolic (2) Pneumonia: Qualifiers: Laterality: unspecified laterality Lung location: unspecified part of lung Pneumonia type: due to unspecified organism Qualified Code(s): J18.9 - Pneumonia, unspecified organism Code(s): J18.9 - Pneumonia, unspecified organism Status: Acute Assessment and Plan: Chest xray does indicate PNA, reviewed xray personally, looks better than the one last month Repeat chest xray from 05/25/23 no active pulmonary disease Seems to be more related to CHF over PNA Stop azithromycin and ceftriaxone with current chest xray results Lasix converted to PO Trend respiratory status Currently on room air Resolved (3) Gastroesophageal reflux disease: Qualifiers: Esophagitis presence: esophagitis presence not specified Qualified Code(s): K21.9 - Gastro-esophageal reflux disease without esophagitis Code(s): K21.9 - Gastro-esophageal reflux disease without esophagitis Status: Acute Assessment and Plan: Pantoprazole changed to q12h Symptoms more stable (4) Hypertension: Qualifiers: Hypertension type: unspecified Qualified Code(s): I10 - Essential (primary) hypertension Code(s): I10 - Essential (primary) hypertension Status: Chronic Assessment and Plan: Current BP is 153/49 Continue home medications trend BP Adjust therapy as indicated (5) Type 2 diabetes mellitus without complications: Qualifiers: Diabetes mellitus custodial insulin use: without medical terminologist use Qualified Code(s): E11.9 - Type 2 diabetes mellitus without complications Code(s): E11.9 - Type 2 diabetes mellitus without complications Status: Acute Assessment and Plan: Current glucose is 116 Accu Cheks AC/HS Trend glucose Adjust therapy as indicated ISS (6) Chronic hyponatremia: Code(s): E87.1 - Hypo-osmolality and hyponatremia Status: Acute Assessment and Plan: Na did get down to 127 Currently 130 Chronic hyponatremia, stable Continue home sodium tabs Most likely related to pain medications Give 500ml IV bolus x 1 (7) Obstructive sleep apnea: Code(s): G47.33 - Obstructive sleep apnea (adult) (pediatric) Status: Acute Assessment and Plan: chronically noncompliant (8) Acute kidney failure: Qualifiers: Acute renal failure type: unspecified Qualified Code(s): N17.9 - Acute kidney failure, unspecified Code(s): N17.9 - Acute kidney failure, unspecified Status: Acute Assessment and Plan: Current Creatinine elevated at 1.20 Baseline 0.7-0.8 Most likely related to lasix Change lasix to PO for now Trend labs Adjust therapy as indicated DS: Summary Hospital Course Hospital Course: patient 78-year-old giovanna
--- NOTE | 2023-05-27 08:45 | P.DS_ITS ---
DS: Admitting Diagnosis Discharge Date 05/27/23 0845 Admitting Diagnosis CHF exacerbation, possible pneumonia DS: Discharge Diagnosis Discharge Diagnosis (1) Heart failure with preserved ejection fraction: Qualifiers: Heart failure chronicity: chronic Qualified Code(s): I50.32 - Chronic diastolic (congestive) heart failure Code(s): I50.30 - Unspecified diastolic (congestive) heart failure Status: Acute Assessment and Plan: * Presented to the ED with complaints of shortness of breath, intermittent chest pain, and dry cough * Chest xray appears better than last visit * Shortness of breath seems to be more closely related to CHF exacerbation vs PNA * Change antibiotics to a Zpak, stop cefepime and vanco * Echo from 03/2023 EF of 60-65% with indeterminate diastolic function * BNP 897 * Convert IV lasix to PO 40mg Daily * Trend urine output * In and Outs probably not accurate with unmeasured voids noted * Daily weights * Continue home aspirin, spironolactone, valsartan, and Bystolic (2) Pneumonia: Qualifiers: Laterality: unspecified laterality Lung location: unspecified part of lung Pneumonia type: due to unspecified organism Qualified Code(s): J18.9 - Pneumonia, unspecified organism Code(s): J18.9 - Pneumonia, unspecified organism Status: Acute Assessment and Plan: * Chest xray does indicate PNA, reviewed xray personally, looks better than the one last month * Repeat chest xray from 05/25/23 no active pulmonary disease * Seems to be more related to CHF over PNA * Stop azithromycin and ceftriaxone with current chest xray results * Lasix converted to PO * Trend respiratory status * Currently on room air * Resolved (3) Gastroesophageal reflux disease: Qualifiers: Esophagitis presence: esophagitis presence not specified Qualified Code(s): K21.9 - Gastro-esophageal reflux disease without esophagitis Code(s): K21.9 - Gastro-esophageal reflux disease without esophagitis Status: Acute Assessment and Plan: * Pantoprazole changed to q12h * Symptoms more stable (4) Hypertension: Qualifiers: Hypertension type: unspecified Qualified Code(s): I10 - Essential (primary) hypertension Code(s): I10 - Essential (primary) hypertension Status: Chronic Assessment and Plan: * Current BP is 153/49 * Continue home medications * trend BP * Adjust therapy as indicated (5) Type 2 diabetes mellitus without complications: Qualifiers: Diabetes mellitus exterminator termite insulin use: without exterminator termite use Qualified Code(s): E11.9 - Type 2 diabetes mellitus without complications Code(s): E11.9 - Type 2 diabetes mellitus without complications Status: Acute Assessment and Plan: * Current glucose is 116 * Accu Cheks AC/HS * Trend glucose * Adjust therapy as indicated * ISS (6) Chronic hyponatremia: Code(s): E87.1 - Hypo-osmolality and hyponatremia Status: Acute Assessment and Plan: * Na did get down to 127 * Currently 130 * Chronic hyponatremia, stable * Continue home sodium tabs * Most likely related to pain medications * Give 500ml IV bolus x 1 (7) Obstructive sleep apnea: Code(s): G47.33 - Obstructive sleep apnea (adult) (pediatric) Status: Acute
[2023-05-27] MEDS: FLUTICASONE PROPIONATE 0.05% NA SPR 16 GM BTL (*BKC) 1 SPRAY NASAL (08:48)
[2023-05-27] MEDS: SPIRONOLACTONE 12.5 MG TABLET PO (08:48)
[2023-05-27] MEDS: PANTOPRAZOLE 40 MG TABLET PO (08:48)
[2023-05-27] MEDS: NEBIVOLOL HCL 5 MG TABLET PO (08:48)
[2023-05-27] MEDS: MONTELUKAST SODIUM 10 MG TABLET PO (08:50)
[2023-05-27] MEDS: LORATADINE 10 MG TABLET PO (08:50)
[2023-05-27] MEDS: busPIRone HCL 10 MG TABLET PO (08:50)
[2023-05-27] MEDS: FOLIC ACID 1 MG TABLET PO (08:50)
[2023-05-27] MEDS: APIXABAN 5 MG TABLET PO (08:50)
[2023-05-27] MEDS: FUROSEMIDE 40 MG TABLET PO (08:50)
[2023-05-27] MEDS: ASPIRIN 81 MG ENTERIC TABLET PO (08:50)
[2023-05-27] MEDS: MAGNESIUM OXIDE 400 MG TABLET PO (08:50)
[2023-05-27] MEDS: IBUPROFEN 200 MG TABLET PO (08:50)
[2023-05-27] MEDS: SODIUM CHLORIDE 1 GM TABLET PO (08:50)
[2023-05-27] MEDS: CYANOCOBALAMIN 1,000 MCG TABLET 1000 MCG PO (08:50)
[2023-05-27] MEDS: EZETIMIBE 10 MG TABLET PO (08:50)
[2023-05-27] MEDS: VALSARTAN 160 MG TABLET PO (08:50)
[2023-05-27] MEDS: TOLNAFTATE 1% POWDER 45 GM BTL 1 APPLIC TOPICAL (08:52)
[2023-05-27 11:38] LABS: Glucose Point of Care 147 mg/dl (65-105)
== END 2023-05-27 16:40 | disposition home health service (06) | DRG 291 ==
LOC: ANHED 07:04 → ANH3MEDSUR 09:50
PROVIDERS: Internal Medicine; Nurse Practitioner; Student in an Organized Health Care Education/Training Program; Admitting Provider Chiropractor; Emergency Provider Preventive Medicine Aerospace Medicine; PCP Nurse Practitioner Family; Visit Provider Nurse Practitioner
DX: I11.0 Hypertensive heart disease with heart failure (principal); J18.9 Pneumonia, unspecified organism; E87.1 Hypo-osmolality and hyponatremia; I50.32 Chronic diastolic (congestive) heart failure; E78.5 Hyperlipidemia, unspecified; E11.42 Type 2 diabetes mellitus with diabetic polyneuropathy; E03.9 Hypothyroidism, unspecified; F41.9 Anxiety disorder, unspecified; G47.33 Obstructive sleep apnea (adult) (pediatric); G89.4 Chronic pain syndrome; I48.0 Paroxysmal atrial fibrillation; I25.10 Atherosclerotic heart disease of native coronary artery without angina pectoris; K21.9 Gastro-esophageal reflux disease without esophagitis; J45.909 Unspecified asthma, uncomplicated; K58.9 Irritable bowel syndrome, unspecified; M06.9 Rheumatoid arthritis, unspecified; Z20.822 Contact with and (suspected) exposure to COVID-19; Z90.49 Acquired absence of other specified parts of digestive tract; Z91.199 Patient's noncompliance with other medical treatment and regimen due to unspecified reason; Z98.49 Cataract extraction status, unspecified eye; Z90.710 Acquired absence of both cervix and uterus; Z96.1 Presence of intraocular lens; Z86.718 Personal history of other venous thrombosis and embolism; Z79.01 Long term (current) use of anticoagulants; Z79.82 Long term (current) use of aspirin; Z99.89 Dependence on other enabling machines and devices
CPT/HCPCS: 36415; 70450; 71046; 80048; 80053; 81003; 82948; 83735; 83880; 84439; 84443; 84480; 84484; 85025; 87040; 87449; 87636; 87899; 93005; 94640; 96361; 96365; 96366; 96367; 96368; 97161; 97165; 99285; A9270; G0378; J0360; J0456; J0692; J0696; J1940; J2543; J3475; J7030; J7040

== ENCOUNTER 2023-06-13 15:50 | Outpatient (CLI) | payer MEDICARE, BC, SELFPAY ==
--- NOTE | ~2023-06-13 | XR_ITS ---
EXAMINATION: XR chest 2V 06/13/2023 16:26 INDICATION: Cough. Asthma. PROCEDURE: 2 view chest COMPARISON: Comparison to multiple prior studies sequentially, with oldest reviewed study dated 04/10. FINDINGS: The lungs are clear. The cardiomediastinal silhouette is within normal limits. There are no pleural effusions. There is no pneumothorax suspected. IMPRESSION: 1: NO ACUTE CARDIOPULMONARY DISEASE. Reviewed, dictated and finalized at location B.
== END 2023-06-13 15:51 | disposition home or self-care (01) ==
PROVIDERS: PCP Family Medicine; Visit Provider Family Medicine
DX: R05.9 Cough, unspecified (principal)
CPT/HCPCS: 71046

== ENCOUNTER 2023-06-19 12:38 | Emergency (ER) | payer MEDICARE, BC, SELFPAY ==
--- NOTE | ~2023-06-19 | XR_ITS ---
EXAMINATION: XR hand LT min 3V DATE: 06/19/2023 13:19 INDICATION: Left hand injury with pain and skin laceration TECHNIQUE: Posteroanterior, oblique and lateral views of the left hand were obtained. COMPARISON: 03/15/2020 FINDINGS: Diffuse osteopenia. No traumatic malalignment No fracture. Polyarticular osteoarthritis, moderate sev erity at the triscaphe, midcarpal, all of the metacarpophalangeal and the left fifth proximal interph alangeal joint, severe at the remaining of the interphalangeal joints, many with central erosions wit h gullwing configuration consistent with erosive osteoarthritis. Likely secondary mild ulnar angulati on at the interphalangeal joints and the second and third digits. Mild osteoarthritis at the wrist an d remaining joints at the carpus. No radiopaque foreign bodies. Multiple likely dystrophic skin calci fications along the dorsal aspect of the midforearm and after several calcific a cyst along the ulnar artery. IMPRESSION: 1. 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 No acute osseous abnormality or radiopaque f oreign bodies. Reviewed, dictated and finalized at location A. IMPRESSION: 1. 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 No acute osseous abnor mality or radiopaque foreign bodies.
[2023-06-19 12:51] VITALS: BP 119/53; PULSE 57; RESP 18; TEMP 36.9; O2SAT 98
[2023-06-19] MEDS: SILVER NITRATE (*SP) STICK 1 EACH (17:02)
--- NOTE | 2023-06-19 17:13 | ED.UPPEXIN ---
HPI - Extremity Injury (Upper) General Chief Complaint: Extremity Injury, Upper Stated Complaint: left hand injury Time Seen by Provider: 06/19/23 15:31 History of Present Illness HPI narrative: 6-year-old female who is chronically anticoagulated with Eliquis for atrial fibrillation reports for evaluation for an abrasion and ecchymosis to the dorsum of her left hand x2 days. Patient states 2 days ago, she was trying to put the seat of her scooter down and accidentally smashed her hand in the seat. She has a nurse that comes to her house approximately 3 times a week who came yesterday and rinsed the lesion and applied a Xeroform dressing. Patient states she contacted her nurse today who advised her to come to the ED for further evaluation due to continuous bleeding. Last tetanus unknown. Denies fevers, vomiting, purulent drainage. She is requesting a dose of her prescribed Percocets for her pain. Related Data Home Medications Medication Instructions Recorded Confirmed aspirin 81 mg tablet,delayed 81 mg PO DAILY 07/29/19 05/21/23 release (Adult Low Dose Aspirin) nitroglycerin 0.4 mg sublingual 0.4 mg sublingual Q5M PRN Chest 07/29/19 05/21/23 tablet Pain vitamins A,C,I-jnvj-bsflie 4,296 1 cap PO BID 07/19/22 05/21/23 mcg-226 mg-90 mg capsule ([employer]erVision AREDS) tetrahydrozoline 0.05 % eye drops 1 drp EACH EYE DAILY PRN Itching 10/23/22 05/21/23 cetirizine 10 mg capsule 10 mg PO DAILY 03/15/23 05/21/23 ezetimibe 10 mg tablet 10 mg PO DAILY 03/15/23 05/21/23 folic acid 1 mg tablet 1 mg PO DAILY 03/15/23 05/21/23 Lactobacillus rhamnosus GG 10 1 cap PO DAILY 04/01/23 05/21/23 billion cell-inulin 200 mg capsule ([employer]) fluticasone propionate 50 1 spray intranasal BID 04/01/23 05/21/23 mcg/actuation nasal spray,suspension (Flonase Allergy Relief) Allergies Allergy/AdvReac Type Severity Reaction Status Date / Time No Known Allergies Allergy Verified 06/19/23 12:57 Review of Systems Review of Systems: CONSTITUTIONAL: Denies fever, chills EYES: Denies visual changes, redness, or discharge. ENT: Denies rhinorrhea, congestion, sore throat, or otalgia. CARDIOVASCULAR: Denies chest pain, palpitations, or edema. RESPIRATORY: Denies cough or dyspnea. GASTROINTESTINAL: Denies abdominal pain, nausea, vomiting, or diarrhea. GENITOURINARY: Denies dysuria or hematuria. SKIN: See HPI MUSCULOSKELETAL: See HPI NEUROLOGIC: Denies headache, numbness, dizziness, or weakness. PSYCHIATRIC: Denies anxiety or depression. [facility] Past Medical History Medical History Anxiety Asthma Chronic hyponatremia Chronic pain syndrome Chronic, continuous use of opioids Coronary artery disease Angioplasty of a diagonal lesion in 01/2018. Cardiac catheterization 06/2019 showed patent coronary arteries. Deep venous thrombosis Degenerative joint disease involving multiple joints Depression Gastroesophageal reflux disease Heart failure with preserved ejection fraction Hiatal hernia Hyperlipidemia Hypertension Hypothyroidism Irritable bowel syndrome Obstructive sleep apnea Noncompliant with CPAP. Paroxysmal A-fib Peptic ulcer Peripheral neuropathy Pneumonia Rheumatoid arthritis Seasonal allergies Type 2 diabetes mellitus without complications Diet-controlled. Hemoglobin A1c was 5.7% on 01/24/2021. Surgical History Surgical History History of appendectomy History of arthroscopy of both shoulders History of cardiac catheterization Angioplasty of a diagonal stenosis 01/2018. Cardiac catheterization 06/2019 showed patent coronary arteries. History of carpal tunnel release History of cataract extraction History of cholecystectomy History of foot surgery History of hysterectomy History of phacoemulsification of cataract with intraocular lens implantation Family History Family Histor
[2023-06-19] MEDS: TETANUS,DIPHTHERIA,AC PERTUSSIS ADULT (0.5 ML) BOOSTRIX IM (17:21)
[2023-06-19] MEDS: oxyCODONE HCL (*CRX) 5 MG TAB IR 10 MG PO (17:21)
[2023-06-19] MEDS: CEPHALEXIN 500 MG CAPSULE PO (17:21)
[2023-06-19] MEDS: ACETAMINOPHEN 325 MG TABLET PO (17:32)
[2023-06-19 17:50] VITALS: BP 120/68; PULSE 60; RESP 17; O2SAT 98
== END 2023-06-19 17:40 | disposition home or self-care (01) ==
PROVIDERS: Emergency Provider Physician Assistant; PCP Family Medicine
DX: S60.222A Contusion of left hand, initial encounter (principal); S60.512A Abrasion of left hand, initial encounter; Z23 Encounter for immunization; I48.0 Paroxysmal atrial fibrillation; I25.10 Atherosclerotic heart disease of native coronary artery without angina pectoris; I50.9 Heart failure, unspecified; I11.0 Hypertensive heart disease with heart failure; E11.42 Type 2 diabetes mellitus with diabetic polyneuropathy; E87.1 Hypo-osmolality and hyponatremia; E78.5 Hyperlipidemia, unspecified; E03.9 Hypothyroidism, unspecified; G89.4 Chronic pain syndrome; G47.33 Obstructive sleep apnea (adult) (pediatric); M06.9 Rheumatoid arthritis, unspecified; K21.9 Gastro-esophageal reflux disease without esophagitis; K58.9 Irritable bowel syndrome, unspecified; F41.9 Anxiety disorder, unspecified; F32.A Depression, unspecified; Z87.01 Personal history of pneumonia (recurrent); Z86.718 Personal history of other venous thrombosis and embolism; Z87.11 Personal history of peptic ulcer disease; Z98.49 Cataract extraction status, unspecified eye; Z96.1 Presence of intraocular lens; Z90.49 Acquired absence of other specified parts of digestive tract; Z90.710 Acquired absence of both cervix and uterus; Z79.82 Long term (current) use of aspirin; Z79.01 Long term (current) use of anticoagulants; M19.042 Primary osteoarthritis, left hand; M19.032 Primary osteoarthritis, left wrist; W23.0XXA Caught, crushed, jammed, or pinched between moving objects, initial encounter
CPT/HCPCS: 73130; 90471; 90715; 99283; A9270

== ENCOUNTER 2023-06-22 04:54 | Inpatient (IN) | payer MEDICARE, BC, SELFPAY ==
[2023-06-22] VITALS (29 sets, daily range): BP systolic 105–181; BP diastolic 49–103; PULSE 50–145; RESP 8–18; TEMP 36.2–36.9; O2SAT 94–100; BMI 28.8
--- NOTE | ~2023-06-22 | XR_ITS ---
EXAMINATION: XR chest 1V portable Exam Date/Time: 06/22/2023 17:30 CDT HISTORY: INCREASING chest congestion, cough X 1 DAY Comparison: 06/13/2023. RESULT: Lines, tubes, and devices: Right humeral head soft tissue anchors. Lungs and pleura: Senescent changes. Cardiomediastinal silhouette: Stable. Other: No acute osseous or upper abdominal finding. IMPRESSION: No acute cardiopulmonary process. Reviewed, dictated and finalized at location K.
--- NOTE | 2023-06-22 04:57 | ECG_ITS ---
Measurements Intervals [place] Rate: 136 P: [place]: 0 QRS: -34 QRSD: 90 T: 114 QT: 298 QTc: 448 Interpretive Statements ATRIAL FIBRILLATION WITH RAPID VENTRICULAR RESPONSE MARKED LEFT AXIS DEVIATION [QRS AXIS < -30] MODERATE VOLTAGE CRITERIA FOR LVH, CONSIDER NORMAL VARIANT [MEETS CRITERIA IN ONE OF: R(aVL), S(V1), R(V5), R(V5/V6)+S(V1)] ST DEVIATION AND MODERATE T-WAVE ABNORMALITY, CONSIDER LATERAL ISCHEMIA [-0.1+ mV T WAVE IN I/aVL/V5/V6] ABNORMAL ECG COMPARED TO ECG 05/24/2023 06:29:46 ATRIAL FIBRILLATION NOW PRESENT Electronically Signed On 06-22-2023 8:52:08 CDT by Maximino Jenkins M.D.
--- NOTE | 2023-06-22 05:00 | ED.GENADULT ---
HPI - General Adult General Chief complaint: Arrhythmia/Palpitations Stated complaint: palpations Time Seen by Provider: 06/22/23 04:58 History of Present Illness HPI narrative: 78-year-old female present to the emergency department for evaluation of rapid heart rate and chest tightness. Patient does have a history of atrial fibrillation and does take Cardizem. Patient suspects that approximately 1 AM she had onset of rapid heart rate. Patient arrived to the emergency department by EMS with a rate in the 140s. Related Data Home Medications Medication Instructions Recorded Confirmed aspirin 81 mg tablet,delayed 81 mg PO DAILY 07/29/19 06/22/23 release (Adult Low Dose Aspirin) nitroglycerin 0.4 mg sublingual 0.4 mg sublingual Q5M PRN Chest 07/29/19 06/22/23 tablet Pain cetirizine 10 mg capsule 10 mg PO DAILY 03/15/23 06/22/23 ezetimibe 10 mg tablet 10 mg PO DAILY 03/15/23 06/22/23 folic acid 1 mg tablet 3 mg PO DAILY 03/15/23 06/22/23 Lactobacillus rhamnosus GG 10 1 cap PO DAILY 04/01/23 06/22/23 billion cell-inulin 200 mg capsule ([facility]) fluticasone propionate 50 1 spray intranasal BID 04/01/23 06/22/23 mcg/actuation nasal spray,suspension (Flonase Allergy Relief) albuterol sulfate 90 mcg/actuation 2 puff inhalation QID PRN 06/22/23 06/22/23 aerosol inhaler Shortness Of Breath Or Wheezing olatd-d-jlnngwgdgxvng 600 unit 600 unit PO DAILY 06/22/23 06/22/23 capsule buspirone 10 mg tablet 10 mg PO BID PRN Anxiety 06/22/23 06/22/23 esomeprazole magnesium 40 mg 60 mg PO DAILY 06/22/23 06/22/23 capsule,delayed release fluticasone 250 mcg-salmeterol 50 1 inh inhalation Q12H 06/22/23 06/22/23 mcg/dose blistr powdr for inhalation (Advair Diskus) furosemide 40 mg tablet 20 mg PO DAILY 06/22/23 06/22/23 ibuprofen 200 mg tablet 200 mg PO Q12H PRN Pain 06/22/23 06/22/23 levothyroxine 88 mcg tablet 88 mcg PO QAM 06/22/23 06/22/23 methotrexate sodium 2.5 mg tablet 2.5 mg PO WEEKLY 06/22/23 06/22/23 peg 400-propylene glycol 0.4 %-0.3 1 drp ophthalmic (eye) DAILY 06/22/23 06/22/23 % eye gel drops tetrahydrozoline 0.05 %-[id number] 1 drp EACH EYE DAILY 06/22/23 06/22/23 0.1 %-[id number] 1 %-povdn 1 % eye drops (Eye Drops Advanced Relief) Allergies Allergy/AdvReac Type Severity Reaction Status Date / Time No Known Allergies Allergy Verified 06/22/23 05:00 Review of Systems Review of Systems: All systems reviewed & are unremarkable except as noted in HPI and below PMFSH Past Medical History Medical History (Updated 06/22/23 @ 15:25 by Silvina Crespo PA-C) Anxiety Asthma Chronic anticoagulation Chronic hyponatremia Chronic pain syndrome Chronic, continuous use of opioids Coronary artery disease Angioplasty of a diagonal lesion in 01/2018. Cardiac catheterization 06/2019 showed patent coronary arteries. Deep venous thrombosis Degenerative joint disease involving multiple joints Depression Gastroesophageal reflux disease Heart failure with preserved ejection fraction Hiatal hernia Hyperlipidemia Hypertension Hypothyroidism Irritable bowel syndrome Obstructive sleep apnea Noncompliant with CPAP. Paroxysmal atrial fibrillation Peptic ulcer Peripheral neuropathy Pneumonia Rheumatoid arthritis Seasonal allergies Type 2 diabetes mellitus without complications Diet-controlled. Hemoglobin A1c was 5.7% on 01/24/2021. Surgical History Surgical History History of appendectomy History of arthroscopy of both shoulders History of cardiac catheterization Angioplasty of a diagonal stenosis 01/2018. Cardiac catheterization 06/2019 showed patent coronary arteries. History of carpal tunnel release History of cataract extraction History of cholecystectomy History of foot surgery History of hysterectomy History of phacoemulsification of cataract with intraocular lens implantation Family History Family History (R
[2023-06-22] MEDS: dilTIAZem HCl INJ 25 MG/5 ML VIAL 10 MG IV PUSH (05:05)
[2023-06-22] MEDS: dilTIAZem 100 MG/100 ML 100 MG/100 ML BAG IV CONT (05:12)
[2023-06-22 05:13] LABS: Basophils Absolute Auto 0.1 K/mm3 (0.0-0.1); Basophils Percent Auto 0.5 % (0.2-1.2); Eosinophils Absolute Auto 0.3 K/mm3 (0-0.3); Eosinophils Percent Auto 3.1 % (0-4.4); Hematocrit 34.7 % (37.0-47.0); Hemoglobin 11.8 g/dL (12.0-15.0); Immature Granulocyte Absolute 0.03 K/mm3 (0.00-0.031); Immature Granulocyte Percent A 0.3 % (0-0.5); Lymphocytes Absolute Auto 3.29 K/mm3 (0.9-3.2); Lymphocytes Percent Auto 31.5 % (18.3-44.2); Mean Corpuscular Hemoglobin 29.7 pg (26-34); Mean Corpuscular Volume 87.4 fl (80-100); Mean Platelet Volume 10.3 fl (7.4-10.4); Monocytes Absolute Auto 0.8 K/mm3 (0.1-0.6); Monocytes Percent Auto 7.2 % (2.6-8.5); Neutrophils Percent Auto 57.4 % (45.5-73.1); Platelet Count Result 274 k/mm3 (150-375); Red Blood Count 3.97 M/mm3 (4.2-5.4); Red Cell Distribution Width 12.9 % (11.5-14.5); White Blood Count 10.5 K/mm3 (4.5-10.0)
--- NOTE | 2023-06-22 05:13 | PC.NURSE ---
Per EDP Dr. Ojeda pt heart rate needs to be between 90 bpm and 110 bpm for diltiazem infusion.
[2023-06-22 05:23] LABS: INR 1.3
[2023-06-22 05:25] LABS: Partial Thromboplastin Time 45.4 SECONDS (22.3-36.8)
[2023-06-22] MEDS: SODIUM CHLORIDE 0.9% IV 500 ML 999 ML IV CONT (05:35)
--- NOTE | 2023-06-22 05:41 | PC.NURSE ---
This RN increased titration of diltiazem from 5mls/ hour to 10mls/ hour per titration protocol and per EDP Dr. Ojeda.
[2023-06-22 06:27] LABS: Alanine Aminotransferase 122 U/L (6-35); Alkaline Phosphatase 165 U/L (38-126); Anion Gap 7 mmol/L (8-16); Aspartate Amino Transferase 85 U/L (14-36); Bilirubin,Total 0.8 mg/dL (0.2-1.3); Blood Urea Nitrogen 19 mg/dL (7-17); Calcium 8.9 mg/dL (8.4-10.2); Carbon Dioxide 29 mmol/L (22-30); Chloride 93 mmol/L (98-107); Estimated Glomerular Filt Rate 53; Glucose 216 mg/dL (65-110); Magnesium 1.4 mg/dL (1.6-2.3); Sodium 129 mmol/L (137-145)
[2023-06-22] MEDS: MAGNESIUM SULF 2 GM/WATER 50ML 2 GM/50 ML BAG IVPB (07:12)
[2023-06-22 07:14] LABS: Appearance Urine Clear (Clear); Bilirubin Urine Negative (Negative); Blood Urine Trace-intact (Negative); Glucose Urine UA Negative (Negative); Ketones Urine Negative (Negative); Leukocyte Esterase Ur Negative LEU/UL (Negative); Nitrate Urine Negative (Negative); Protein Urine Negative (Negative); Urobilinogen Urine 0.2 mg/dL (<2.0); pH Urine 6.5 (5.0-9.0)
[2023-06-22 07:20] LABS: Color Urine Light Yellow (Yellow)
[2023-06-22 07:22] LABS: Bacteria Urine None Seen /hpf; Non Pathogenic Casts 0-2; RBC Urine 0-2 /hpf (0-2); Squamous Epithelial Cell Urine None seen /hpf (Few); WBC Urine 0-5 /hpf
[2023-06-22] MEDS: HYDROcodone/acetaminophen (*CRX) 5-325 MG TABLET 1 TAB PO (07:28)
[2023-06-22 07:34] LABS: Add Urine Microscopic? YES
[2023-06-22 08:39] LABS: Troponin I 0.014 ng/mL (0.000-0.034)
--- NOTE | 2023-06-22 09:03 | ADMGEN ---
This patient, Aracely Spear, was admitted to IMU Room 205-02 AT 0848. Patient/family oriented to hospital policies and general routines including ID bracelet, bed and alarms, visiting hours, pain management, procedures, bathroom and other care routines, personal items, smoking policy, room service/diet, and visiting hours. Information on how to activate the Rapid Response Team has been discussed. Patient/Family are encouraged to report perceived risks to care and to ask questions if they do not understand what they are told or what they should do.
--- NOTE | 2023-06-22 09:15 | PC.NURSE ---
PATIENT ARRIVED TO FLOOR AT 0848, CONVERTED TO SINUS KATIE AT 0905, STRIP PRINTED. ekg ORDERED
--- NOTE | 2023-06-22 09:16 | ECG_ITS ---
Measurements Intervals [place] Rate: 51 P: 67 [place]: 232 QRS: -21 QRSD: 90 T: 20 QT: 444 QTc: 410 Interpretive Statements SINUS BRADYCARDIA WITH FIRST DEGREE AV BLOCK BORDERLINE LEFT AXIS DEVIATION [QRS AXIS < -20] MINIMAL VOLTAGE CRITERIA FOR LVH, CONSIDER NORMAL VARIANT [MEETS CRITERIA IN ONE OF: R(aVL), S(V1), R(V5), R(V5/V6)+S(V1)] ABNORMAL ECG COMPARED TO ECG 06/22/2023 05:01:21 SINUS BRADYCARDIA NOW PRESENT FIRST DEGREE AV BLOCK NOW PRESENT Electronically Signed On 06-23-2023 9:22:01 CDT by Maximino Jenkins M.D.
--- NOTE | 2023-06-22 15:19 | PM.IMHP ---
H&P: HPI History of Present Illness Date/Time: 06/22/23 14:00 Chief Complaint: Racing heart. Narrative: This is a pleasant 78 -year-old female with multiple medical problems including coronary artery disease, heart failure with preserved ejection fraction, hypertension, hyperlipidemia, diet-controlled diabetes, asthma, hypothyroidism, sleep apnea, rheumatoid arthritis, deep venous thrombosis, chronic pain syndrome on long-term opiate therapy, chronic hyponatremia, and gastroesophageal reflux disease who presented to the emergency department via EMS for evaluation of racing heart. The patient provides the following history. Early last week she was putting the seat scooter down accidentally smashed her left hand in the seat. She sustained an abrasion on the dorsum of the hand and she was seen in the ED a couple of days thereafter for evaluation as she was having difficulties getting the bleeding to stop. 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 Since that time she has not really felt well and she reports that she is more fatigued than usual with mild chest congestion and nonproductive cough. Early this morning she was wakened from sleep at about 01:00 with rapid heart rate ?like it was pounding out of my chest.? After couple of hours it was not slowing down and she came in for evaluation. She was in atrial fibrillation with rapid ventricular response and rates into the 140s on arrival. She was started on a diltiazem drip and has since converted to a sinus bradycardia. Labs were reviewed. Troponin is within normal limits. Chronic anemia is stable. She has chronic hyponatremia and that appears stable as well. AST and ALT are a bit elevated. Chest x-ray was unremarkable. She was negative for influenza and COVID. At the time my evaluation she is sitting at the side of the bed eating and she has no complaints. She denies fever, chills, sweats, chest pain, pleuritic pain, abdominal pain, epigastric pain nausea, vomiting, and diarrhea. Review of Systems Review of Systems: Twelve systems were reviewed and are negative except for as per HPI. [facility] Past Medical History Medical History Anxiety Asthma Chronic anticoagulation Chronic hyponatremia Chronic pain syndrome Chronic, continuous use of opioids Coronary artery disease Angioplasty of a diagonal lesion in 01/2018. Cardiac catheterization 06/2019 showed patent coronary arteries. Deep venous thrombosis Degenerative joint disease involving multiple joints Depression Gastroesophageal reflux disease Heart failure with preserved ejection fraction Hiatal hernia Hyperlipidemia Hypertension Hypothyroidism Irritable bowel syndrome Obstructive sleep apnea Noncompliant with CPAP. Paroxysmal atrial fibrillation Peptic ulcer Peripheral neuropathy Pneumonia Rheumatoid arthritis Seasonal allergies Type 2 diabetes mellitus without complications Diet-controlled. Hemoglobin A1c was 5.7% on 01/24/2021. Surgical History Surgical History History of appendectomy History of arthroscopy of both shoulders History of cardiac catheterization Angioplasty of a diagonal stenosis 01/2018. Cardiac catheterization 06/2019 showed patent coronary arteries. History of carpal tunnel release History of cataract extraction History of cholecystectomy History of foot surgery History of hysterectomy History of phacoemulsification of cataract with intraocular lens implantation Family History Family History Grandparent Diabetes mellitus Father Acute myocardial infarction Diabetes mellitus Hypertension Mother Hypertension Diabetes mellitus Sibling Diabetes mellitus Hypertension Other Family history of cardiovascular disease Family history of malignant neopla
[2023-06-22] MEDS: oxyCODONE/ACETAMINOPHEN (*CRX) 10-325 MG TABLET 1 TAB PO ×2 (16:00→22:06)
[2023-06-22] MEDS: FLUTICASONE PROPIONATE 0.05% NA SPR 16 GM BTL (*BKC) 1 SPRAY NASAL (18:05)
[2023-06-22] MEDS: CEPHALEXIN 500 MG CAPSULE PO ×2 (18:06→22:05)
[2023-06-22] MEDS: SODIUM CHLORIDE 1 GM TABLET PO (18:06)
[2023-06-22 18:58] LABS: Influenza A QL RT-PCR Negative (Negative); Influenza B QL RT-PCR Negative (Negative); SARS-CoV-2 RNA PCR Negative (Negative)
[2023-06-22] MEDS: APIXABAN 5 MG TABLET PO (19:56)
[2023-06-22] MEDS: FLUTICASONE/SALMETEROL 115-21 MCG INHALER 1 PUFF 2 PUFF INHALATION (20:26)
[2023-06-23] VITALS (17 sets, daily range): BP systolic 156–177; BP diastolic 49–68; PULSE 56–91; RESP 16–20; TEMP 35.8–36.5; O2SAT 97–100
[2023-06-23] MEDS: MAG HYDROX/AL HYDROX/SIMETH 30 ML UDC PO (00:01)
[2023-06-23] MEDS: CEPHALEXIN 500 MG CAPSULE PO ×4 (04:05→21:30)
[2023-06-23] MEDS: oxyCODONE/ACETAMINOPHEN (*CRX) 10-325 MG TABLET 1 TAB PO ×4 (04:05→23:00)
[2023-06-23 05:10] LABS: Hematocrit 32.1 % (37.0-47.0); Hemoglobin 10.7 g/dL (12.0-15.0); Mean Corpuscular HGB Conc 33.3 g/dl (32-36); Mean Corpuscular Hemoglobin 29.8 pg (26-34); Mean Corpuscular Volume 89.4 fl (80-100); Mean Platelet Volume 9.9 fl (7.4-10.4); Platelet Count Result 260 k/mm3 (150-375); Red Blood Count 3.59 M/mm3 (4.2-5.4); Red Cell Distribution Width 12.9 % (11.5-14.5)
[2023-06-23 05:27] LABS: Anion Gap 7 mmol/L (8-16); Blood Urea Nitrogen 14 mg/dL (7-17); Calcium 8.7 mg/dL (8.4-10.2); Carbon Dioxide 25 mmol/L (22-30); Chloride 95 mmol/L (98-107); Estimated Glomerular Filt Rate > 60; Glucose 123 mg/dL (65-110); Magnesium 1.9 mg/dL (1.6-2.3); Sodium 127 mmol/L (137-145)
[2023-06-23] MEDS: LEVOTHYROXINE SODIUM 88 MCG TABLET PO (05:46)
[2023-06-23] MEDS: MONTELUKAST SODIUM 10 MG TABLET PO (09:04)
[2023-06-23] MEDS: NEBIVOLOL HCL 5 MG TABLET PO (09:04)
[2023-06-23] MEDS: PANTOPRAZOLE 40 MG TABLET PO (09:05)
[2023-06-23] MEDS: SPIRONOLACTONE 12.5 MG TABLET PO (09:05)
[2023-06-23] MEDS: APIXABAN 5 MG TABLET PO ×2 (09:05→21:30)
[2023-06-23] MEDS: ACIDOPHILUS/BULGARICUS CHEWABLE TABLET 1 TABLET PO (09:05)
[2023-06-23] MEDS: VALSARTAN 160 MG TABLET PO (09:05)
[2023-06-23] MEDS: SODIUM CHLORIDE 1 GM TABLET PO ×2 (09:05→16:54)
[2023-06-23] MEDS: FUROSEMIDE 20 MG TABLET PO (09:05)
[2023-06-23] MEDS: EZETIMIBE 10 MG TABLET PO (09:05)
[2023-06-23] MEDS: MAGNESIUM OXIDE 400 MG TABLET PO (09:05)
[2023-06-23] MEDS: FOLIC ACID 1 MG TABLET 3 MG PO (09:05)
[2023-06-23] MEDS: ASPIRIN 81 MG ENTERIC TABLET PO (09:06)
[2023-06-23] MEDS: LORATADINE 10 MG TABLET PO (09:06)
[2023-06-23] MEDS: CYANOCOBALAMIN 1,000 MCG TABLET 1000 MCG PO (09:06)
[2023-06-23] MEDS: dilTIAZem HCL CD 120 MG CAP.24HR PO (09:06)
[2023-06-23] MEDS: FLUTICASONE PROPIONATE 0.05% NA SPR 16 GM BTL (*BKC) 1 SPRAY NASAL ×2 (09:14→16:54)
[2023-06-23] MEDS: ARTIFICIAL TEARS OPHTH SOLN 15 ML BOTTLE 1 DROP EACH EYE (09:14)
[2023-06-23] MEDS: FLUTICASONE/SALMETEROL 115-21 MCG INHALER 1 PUFF 2 PUFF INHALATION ×2 (09:15→20:23)
--- NOTE | 2023-06-23 14:01 | PM.IMPN ---
Progress Note: A&P Assessment and Plan (1) Atrial fibrillation with rapid ventricular response: Code(s): I48.91 - Unspecified atrial fibrillation Status: Acute (2) Hypomagnesemia: Code(s): E83.42 - Hypomagnesemia Status: Acute (3) Chronic hyponatremia: Code(s): E87.1 - Hypo-osmolality and hyponatremia Status: Acute (4) Heart failure with preserved ejection fraction: Qualifiers: Heart failure chronicity: chronic Qualified Code(s): I50.32 - Chronic diastolic (congestive) heart failure Code(s): I50.30 - Unspecified diastolic (congestive) heart failure Status: Acute (5) Hypertension: Qualifiers: Hypertension type: unspecified Qualified Code(s): I10 - Essential (primary) hypertension Code(s): I10 - Essential (primary) hypertension Status: Chronic (6) Hypothyroidism: Code(s): E03.9 - Hypothyroidism, unspecified Status: Acute (7) Chronic anticoagulation: Code(s): Z79.01 - intermediate card tender (current) use of anticoagulants Status: Acute (8) Abrasion of hand, left: Code(s): S60.512A - Abrasion of left hand, initial encounter Status: Acute Plan The patient presented to the emergency department for evaluation of sudden onset of racing heart as detailed in HPI. Labs, imaging, EKG, and all reports were personally reviewed. She was in atrial fibrillation with rapid ventricular response on arrival to the ED and she has converted to a sinus bradycardia on a Cardizem drip. She has not been feeling well for couple of days though her workup did not show any evidence to suggest underlying infection. She has an abrasion on the dorsum of the left hand for which she is taking cephalexin; it does not look acutely infected. She has chronic anemia and hyponatremia which are stable on review of previous labs. She is clinically compensated with regards to her congestive heart failure. Blood pressures were reviewed and they are stable. She does have sleep apnea and does not use a CPAP at nighttime which could be a contributing factor to her nighttime AFib. We discussed this and she reports that she is supposed to go for an outpatient sleep study at some point in time. Mild hyponatremia fluctuated between high 120s to low 130s Diabetes mellitus Hypertension History of DVT Anxiety disorder on buspirone Paroxysmal atrial fibrillation on oral diltiazem may be exacerbated by hypo magnesemia DVT prophylaxis on Eliquis already Code status full code Subjective Date/time seen: 06/23/23 14:01 Interval history: This is a pleasant 78 -year-old female with multiple medical problems including coronary artery disease, heart failure with preserved ejection fraction, hypertension, hyperlipidemia, diet-controlled diabetes, asthma, hypothyroidism, sleep apnea, rheumatoid arthritis, deep venous thrombosis, chronic pain syndrome on long-term opiate therapy, chronic hyponatremia, and gastroesophageal reflux disease who presented to the emergency department via EMS for evaluation of racing heart. The patient provides the following history. Early last week she was putting the seat scooter down accidentally smashed her left hand in the seat. She sustained an abrasion on the dorsum of the hand and she was seen in the ED a couple of days thereafter for evaluation as she was having difficulties getting the bleeding to stop. 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 Since that time she has not really felt well and she reports that she is more fatigued than usual with mild chest congestion and nonproductive cough. Early this morning she was wakened from sleep at about 01:00 with rapid heart rate ?like it was pounding out of my chest.? After couple of hours it was not slowing down and she came in for evaluation. She was in atrial fibrillation with rapid ventricular response and rates into the 140s on
[2023-06-24] VITALS (7 sets, daily range): BP systolic 126–176; BP diastolic 52–62; PULSE 59–74; RESP 14–20; TEMP 36.5–36.9; O2SAT 96–98
[2023-06-24] MEDS: CEPHALEXIN 500 MG CAPSULE PO ×3 (04:55→15:19)
[2023-06-24] MEDS: oxyCODONE/ACETAMINOPHEN (*CRX) 10-325 MG TABLET 1 TAB PO ×3 (05:12→17:36)
[2023-06-24 05:32] LABS: Basophils Absolute Auto 0.1 K/mm3 (0.0-0.1); Basophils Percent Auto 0.7 % (0.2-1.2); Eosinophils Absolute Auto 0.3 K/mm3 (0-0.3); Eosinophils Percent Auto 2.3 % (0-4.4); Hemoglobin 10.7 g/dL (12.0-15.0); Immature Granulocyte Absolute 0.04 K/mm3 (0.00-0.031); Immature Granulocyte Percent A 0.3 % (0-0.5); Lymphocytes Absolute Auto 4.18 K/mm3 (0.9-3.2); Lymphocytes Percent Auto 35.3 % (18.3-44.2); Mean Corpuscular HGB Conc 33.4 g/dl (32-36); Mean Corpuscular Hemoglobin 29.6 pg (26-34); Mean Corpuscular Volume 88.6 fl (80-100); Mean Platelet Volume 9.8 fl (7.4-10.4); Monocytes Absolute Auto 0.7 K/mm3 (0.1-0.6); Neutrophils Absolute Auto 6.6 K/mm3 (1.3-6.7); Neutrophils Percent Auto 55.4 % (45.5-73.1); Platelet Count Result 312 k/mm3 (150-375); Red Blood Count 3.61 M/mm3 (4.2-5.4); Red Cell Distribution Width 12.6 % (11.5-14.5); White Blood Count 11.8 K/mm3 (4.5-10.0)
[2023-06-24 05:43] LABS: Alanine Aminotransferase 70 U/L (6-35); Alkaline Phosphatase 132 U/L (38-126); Anion Gap 13 mmol/L (8-16); Aspartate Amino Transferase 41 U/L (14-36); Bilirubin,Total 1.2 mg/dL (0.2-1.3); Blood Urea Nitrogen 13 mg/dL (7-17); Carbon Dioxide 26 mmol/L (22-30); Chloride 89 mmol/L (98-107); Estimated Glomerular Filt Rate 60; Glucose 116 mg/dL (65-110); Magnesium 1.5 mg/dL (1.6-2.3); Sodium 128 mmol/L (137-145)
[2023-06-24] MEDS: LEVOTHYROXINE SODIUM 88 MCG TABLET PO (06:03)
[2023-06-24] MEDS: FLUTICASONE/SALMETEROL 115-21 MCG INHALER 1 PUFF 2 PUFF INHALATION (09:12)
[2023-06-24] MEDS: SPIRONOLACTONE 12.5 MG TABLET PO (09:53)
[2023-06-24] MEDS: ASPIRIN 81 MG ENTERIC TABLET PO (09:53)
[2023-06-24] MEDS: SODIUM CHLORIDE 1 GM TABLET PO ×2 (09:53→16:59)
[2023-06-24] MEDS: FLUTICASONE PROPIONATE 0.05% NA SPR 16 GM BTL (*BKC) 1 SPRAY NASAL ×2 (09:53→17:00)
[2023-06-24] MEDS: EZETIMIBE 10 MG TABLET PO (09:53)
[2023-06-24] MEDS: MAGNESIUM OXIDE 400 MG TABLET PO (09:53)
[2023-06-24] MEDS: CYANOCOBALAMIN 1,000 MCG TABLET 1000 MCG PO (09:53)
[2023-06-24] MEDS: MONTELUKAST SODIUM 10 MG TABLET PO (09:53)
[2023-06-24] MEDS: ARTIFICIAL TEARS OPHTH SOLN 15 ML BOTTLE 1 DROP EACH EYE (09:53)
[2023-06-24] MEDS: LORATADINE 10 MG TABLET PO (09:53)
[2023-06-24] MEDS: FUROSEMIDE 20 MG TABLET PO (09:53)
[2023-06-24] MEDS: dilTIAZem HCL CD 120 MG CAP.24HR PO (09:53)
[2023-06-24] MEDS: APIXABAN 5 MG TABLET PO (09:54)
[2023-06-24] MEDS: ACIDOPHILUS/BULGARICUS CHEWABLE TABLET 1 TABLET PO (09:54)
[2023-06-24] MEDS: VALSARTAN 160 MG TABLET PO (09:54)
[2023-06-24] MEDS: PANTOPRAZOLE 40 MG TABLET PO (09:54)
[2023-06-24] MEDS: NEBIVOLOL HCL 5 MG TABLET PO (09:54)
[2023-06-24] MEDS: FOLIC ACID 1 MG TABLET 3 MG PO (09:56)
--- NOTE | 2023-06-24 13:08 | PM.DS ---
DS: Admitting Diagnosis Discharge Date 06/24/2023 Admitting Diagnosis Tachycardia DS: Discharge Diagnosis Discharge Diagnosis (1) Atrial fibrillation with rapid ventricular response: Code(s): I48.91 - Unspecified atrial fibrillation Status: Acute (2) Hypomagnesemia: Code(s): E83.42 - Hypomagnesemia Status: Acute (3) Chronic hyponatremia: Code(s): E87.1 - Hypo-osmolality and hyponatremia Status: Acute (4) Heart failure with preserved ejection fraction: Qualifiers: Heart failure chronicity: chronic Qualified Code(s): I50.32 - Chronic diastolic (congestive) heart failure Code(s): I50.30 - Unspecified diastolic (congestive) heart failure Status: Acute (5) Hypertension: Qualifiers: Hypertension type: unspecified Qualified Code(s): I10 - Essential (primary) hypertension Code(s): I10 - Essential (primary) hypertension Status: Chronic (6) Hypothyroidism: Code(s): E03.9 - Hypothyroidism, unspecified Status: Acute (7) Chronic anticoagulation: Code(s): Z79.01 - detention (current) use of anticoagulants Status: Acute (8) Abrasion of hand, left: Code(s): S60.512A - Abrasion of left hand, initial encounter Status: Acute DS: Summary Hospital Course Hospital Course: The patient presented to the emergency department for evaluation of sudden onset of racing heart as detailed in HPI. Labs, imaging, EKG, and all reports were personally reviewed. She was in atrial fibrillation with rapid ventricular response on arrival to the ED and she has converted to a sinus bradycardia on a Cardizem drip. She has not been feeling well for couple of days though her workup did not show any evidence to suggest underlying infection. She has an abrasion on the dorsum of the left hand for which she is taking cephalexin; it does not look acutely infected. Cephalexin was she has chronic anemia and hyponatremia which are stable on review of previous labs. She is clinically compensated with regards to her congestive heart failure. Blood pressures were reviewed and they are stable. She does have sleep apnea and does not use a CPAP at nighttime which could be a contributing factor to her nighttime AFib. We discussed this and she reports that she is supposed to go for an outpatient sleep study at some point in time. Mild hyponatremia fluctuated between high 120s to low 130s on salt tablets Diabetes mellitus Hypertension History of DVT Anxiety disorder on buspirone Paroxysmal atrial fibrillation on oral diltiazem may be exacerbated by hypo magnesemia which was replaced. She was monitored and remained in sinus rhythm throughout hospital stay DVT prophylaxis on Eliquis already Code status full code Time Spent with Patient Time attestation: Total time spent providing and/or coordinating discharge services: 30 minutes Exam Narrative: General:?Well-developed, nontoxic-appearing female not in acute distress HEENT:??PERRL, EOMI. Moist mucous membranes. Neck:??Supple. No JVD or lymphadenopathy. Respiratory:?Respirations are nonlabored and lungs are clear to auscultation. Cardiovascular:??Regular rate and rhythm with S1-S2. 2-3/6 systolic murmur at the upper sternal border. Gastrointestinal:??Abdomen is soft, nontender, and nondistended with positive bowel sounds. No guarding rebound tenderness. No organomegaly. Skin:??Warm and dry.?There is an abrasion over dorsum the left with surrounding ecchymosis. Extremities:??No cyanosis, clubbing, or significant edema. Radial and pedal pulses intact. Neurological:??Alert.? Cranial nerves 2-12 are grossly intact. No gross focal deficits to casual conversation. Psychiatric:??Pleasant and cooperative with normal mood and affect.? Judgment and insight intact. DS: Data Data Completed and Pending Labs on day of discharge: Labs from last 24 hours 06/24/23 04:55 WBC 11.8 H RBC 3.61 L Hgb 10.7 L Hct
== END 2023-06-24 17:40 | disposition home health service (06) | DRG 309 ==
LOC: ANHED 07:24 → ANHIMU 08:14
PROVIDERS: Physician Assistant; Admitting Provider Chiropractor; Emergency Provider Emergency Medicine; PCP Family Medicine; Visit Provider Internal Medicine
DX: I48.0 Paroxysmal atrial fibrillation (principal); E87.1 Hypo-osmolality and hyponatremia; I50.32 Chronic diastolic (congestive) heart failure; E83.42 Hypomagnesemia; I11.0 Hypertensive heart disease with heart failure; E03.9 Hypothyroidism, unspecified; S60.512A Abrasion of left hand, initial encounter; D64.9 Anemia, unspecified; F41.9 Anxiety disorder, unspecified; G89.4 Chronic pain syndrome; E78.5 Hyperlipidemia, unspecified; G47.33 Obstructive sleep apnea (adult) (pediatric); K21.9 Gastro-esophageal reflux disease without esophagitis; M06.9 Rheumatoid arthritis, unspecified; M15.9 Polyosteoarthritis, unspecified; E11.42 Type 2 diabetes mellitus with diabetic polyneuropathy; I25.10 Atherosclerotic heart disease of native coronary artery without angina pectoris; X58.XXXA Exposure to other specified factors, initial encounter; Z91.198 Patient's noncompliance with other medical treatment and regimen for other reason; Z86.718 Personal history of other venous thrombosis and embolism; Z79.01 Long term (current) use of anticoagulants; Z79.82 Long term (current) use of aspirin; Z90.49 Acquired absence of other specified parts of digestive tract; Z20.822 Contact with and (suspected) exposure to COVID-19
CPT/HCPCS: 36415; 71045; 80048; 80053; 81001; 81003; 83735; 84443; 84484; 85025; 85027; 85610; 85730; 87636; 93005; 94640; 96365; 96366; 96368; 99285; A9270; G0378; J3475; J7040

== ENCOUNTER 2023-07-31 08:38 | Outpatient (CLI) | payer MEDICARE, BC, SELFPAY ==
[2023-07-31 09:37] LABS: Alanine Aminotransferase 22 U/L (6-35); Albumin Level 4.1 g/dL (3.5-5.1); Alkaline Phosphatase 119 U/L (38-126); Anion Gap 10 mmol/L (8-16); Aspartate Amino Transferase 23 U/L (14-36); Bilirubin,Total 1.1 mg/dL (0.2-1.3); Blood Urea Nitrogen 13 mg/dL (7-17); Calcium 9.2 mg/dL (8.4-10.2); Carbon Dioxide 26 mmol/L (22-30); Chloride 97 mmol/L (98-107); Cholesterol 125 mg/dL (0-200); Estimated Glomerular Filt Rate > 60; Glucose 121 mg/dL (65-110); HDL Direct 73 mg/dL; Potassium 4.4 mmol/L (3.4-5.0); Sodium 133 mmol/L (137-145); Triglycerides 83 mg/dL (<150)
[2023-07-31 09:48] LABS: LDL Cholesterol Direct 40 mg/dL
[2023-07-31 10:06] LABS: Thyroid Stimulating Hormone 0.407 uIU/mL (0.465-4.680)
== END 2023-07-31 08:39 | disposition home or self-care (01) ==
PROVIDERS: PCP Family Medicine; Visit Provider Family Medicine
DX: E03.9 Hypothyroidism, unspecified (principal); E78.5 Hyperlipidemia, unspecified; I10 Essential (primary) hypertension
CPT/HCPCS: 36415; 80053; 80061; 84439; 84443

== ENCOUNTER 2023-08-12 20:00 | Outpatient (CLI) | payer MEDICARE, BC, SELFPAY ==
--- NOTE | 2023-09-03 09:43 | WPDSLEEPSTUD ---
Sleep Study Date of Study: 08/12/2023 Ordering Provider: Yuliya Brizuela, ENVIRONMENTAL SERVICES AIDE Interpreting Physician: Neli Moura, Sleep Study Type: Polysomnogram Height: 1.5 m Weight: 62.59 kg Body Mass Index: 27.8 Neck Circumference (inches): 13.75 [place]: 7 Reason for Sleep Study Previous diagnosis of ELVIRA and atrial fibrillation Sleep History The patient is an 78-year-old female that had a sleep study ordered by cardiology of use for evaluation of sleep apnea. The patient occasionally awakens from sleep short of breath. She frequently awakens at night with heartburn, belching or cough. She frequently snores and is frequently loud enough that others complain. She occasionally has trouble sleeping when she has a cold. She occasionally wakes up gasping for air throughout the night. She constantly has breathing problems at night observed by herself or others. She denies sweating excessively at night. She frequently has heart palpitations or irregular heartbeats during the night. She occasionally falls asleep during the day but never while driving. She denies sleep paralysis, cataplexy and hypnagogic / hypnopompic hallucinations. She denies having trouble at school or work due to sleepiness. She denies feeling afraid of going to sleep. She denies having nightmares. She rarely remembers her dreams. She rarely has thoughts racing through her mind. She denies feeling sad or depressed. She occasionally has anxiety. She frequently has muscular tension. She rarely notices parts of her body jerk. She denies kicking during the night. She denies having crawling and aching feelings in her legs but rarely has leg pain during the night. She denies grinding her teeth during sleep and denies awakening with morning jaw pain. She is constantly bothered by pain during the day and constantly awakened by pain during the night. She constantly wakes up feeling stiff in the morning. She constantly wakes up with sore or achy muscles. She frequently wakes up with pain in the neck, spine and other joints. She goes to bed between 10 to 10:30 p.m. on both weekdays and weekends. It takes her 5 minutes to fall asleep. She wakes up 3 times throughout the night to urinate or a gets something 8. She is able fall back asleep within 5 minutes. She wakes up at 5:00 a.m. on both weekdays and weekends. She typically gets 8 hours of sleep per night. She will stay in bed for 5 minutes after waking up in the morning. She currently lives alone. She denies consuming any caffeinated beverages within 2 hours of bedtime. She denies engaging in physical exercise before bedtime. She will watch television before falling asleep. She will take naps in afternoon or the evening and they are refreshing. She denies consuming any caffeinated beverages throughout the day. She denies tobacco, alcohol and recreational drug use. [facility] Past Medical History Medical History Anxiety Asthma Chronic anticoagulation Chronic hyponatremia Chronic pain syndrome Chronic, continuous use of opioids Coronary artery disease Angioplasty of a diagonal lesion in 01/2018. Cardiac catheterization 06/2019 showed patent coronary arteries. Deep venous thrombosis Degenerative joint disease involving multiple joints Depression Gastroesophageal reflux disease Heart failure with preserved ejection fraction Hiatal hernia Hyperlipidemia Hypertension Hypothyroidism Irritable bowel syndrome Obstructive sleep apnea Noncompliant with CPAP. Paroxysmal atrial fibrillation Peptic ulcer Peripheral neuropathy Pneumonia Rheumatoid arthritis Seasonal allergies Type 2 diabetes mellitus without complications Diet-controlled. Hemoglobin A1c was 5.7% on 01/24/2021. Surgical History Surgical History History of appendectomy History of arthroscopy of both shoulders History of cardiac c
[2023-09-03 09:56] VITALS: BMI 27.8
== END 2023-08-13 08:00 | disposition home or self-care (01) ==
LOC: ANHCSM 09-03 13:46
PROVIDERS: PCP Family Medicine; Visit Provider Nurse Practitioner Adult Health
DX: G47.9 Sleep disorder, unspecified (principal); R06.83 Snoring
CPT/HCPCS: 95810

== ENCOUNTER 2023-08-14 03:21 | Inpatient (IN) | payer MEDICARE, BC, SELFPAY ==
[2023-08-14] VITALS (40 sets, daily range): BP systolic 100–162; BP diastolic 54–106; PULSE 64–163; RESP 12–22; TEMP 35.9–37; O2SAT 92–100; BMI 29.5
--- NOTE | ~2023-08-14 | XR_ITS ---
Portable chest x-ray Comparison: 06/22/2023 Clinical History: Chest pain Findings: Lungs are clear, without focal consolidation or pleural effusion. Cardiomediastinal silho uette is stable. Bones and soft tissues are unremarkable. Impression: Clear lungs. Reviewed, dictated and finalized at location . ESPONDENCE SPECIALIST Impression: Clear lungs.
--- NOTE | 2023-08-14 03:24 | ECG_ITS ---
Measurements Intervals Vici Rate: 161 P: IN: 0 QRS: -27 QRSD: 82 T: 122 QT: 269 QTc: 441 Interpretive Statements ATRIAL FIBRILLATION WITH RAPID VENTRICULAR RESPONSE DELAYED PRECORDIAL R/S TRANSITION LEFT VENTRICULAR HYPERTROPHY WITH ST-T CHANGE ST-T WAVE ABNORMALITY IN ANTEROLATERAL LEADS- CONSIDER ISCHEMIA ABNORMAL ECG COMPARED TO ECG 06/22/2023 09:26:22 ATR[address] FIBRILLATION NOW PRESENT ST-T WAVE ABNORMALITY NOW PRESENT Electronically Signed On 08-14-2023 6:33:51 TRANSPORTATION EQUIPMENT PAINTER by Jasvir Steele D.O.
[2023-08-14 03:32] LABS: Basophils Absolute Auto 0.1 K/mm3 (0.0-0.1); Basophils Percent Auto 0.3 % (0.2-1.2); Eosinophils Absolute Auto 0.1 K/mm3 (0-0.3); Eosinophils Percent Auto 0.7 % (0-4.4); Hematocrit 36.5 % (37.0-47.0); Hemoglobin 11.3 g/dL (12.0-15.0); Immature Granulocyte Absolute 0.14 K/mm3 (0.00-0.031); Immature Granulocyte Percent A 0.9 % (0-0.5); Lymphocytes Absolute Auto 5.54 K/mm3 (0.9-3.2); Lymphocytes Percent Auto 35.6 % (18.3-44.2); Mean Corpuscular Hemoglobin 27.6 pg (26-34); Mean Corpuscular Volume 89.2 fl (80-100); Mean Platelet Volume 9.4 fl (7.4-10.4); Monocytes Percent Auto 6.6 % (2.6-8.5); Neutrophils Absolute Auto 8.7 K/mm3 (1.3-6.7); Neutrophils Percent Auto 55.9 % (45.5-73.1); Platelet Count Result 316 k/mm3 (150-375); Red Blood Count 4.09 M/mm3 (4.2-5.4); Red Cell Distribution Width 13.2 % (11.5-14.5); White Blood Count 15.6 K/mm3 (4.5-10.0)
[2023-08-14] MEDS: dilTIAZem HCl INJ 25 MG/5 ML VIAL 20 MG IV PUSH ×2 (03:35→05:09)
[2023-08-14 03:41] LABS: INR 1.1; Prothrombin Time 14.5 Seconds (11.1-14.7)
--- NOTE | 2023-08-14 03:41 | ED.GENADULT ---
HPI - General Adult General Chief complaint: Chest Pain Stated complaint: palpations Time Seen by Provider: 08/14/23 03:23 History of Present Illness HPI narrative: Patient is 78-year-old female who presents to emergency department with chief complaint of chest pain. Patient has prior history of atrial fibrillation and done this evening around midnight noticed that she started having pain in her chest the patient also reports that she felt as though her heart was beating fast and her blood pressure was elevated the patient took her blood pressure was in the 200s and her heart rate was in the 150s. The patient reports that she took 325 mg of aspirin prior to arrival and reports that time she also took a nitroglycerin without relief. EMS was called patient had no evidence of ST elevations by EMS and pre-hospital EKG. Related Data Home Medications Medication Instructions Recorded Confirmed aspirin 81 mg tablet,delayed 81 mg PO DAILY 07/29/19 07/18/23 release (Adult Low Dose Aspirin) nitroglycerin 0.4 mg sublingual 0.4 mg sublingual Q5M PRN Chest 07/29/19 07/18/23 tablet Pain cetirizine 10 mg capsule 10 mg PO DAILY 03/15/23 07/18/23 ezetimibe 10 mg tablet 10 mg PO DAILY 03/15/23 07/18/23 folic acid 1 mg tablet 3 mg PO DAILY 03/15/23 07/18/23 Lactobacillus rhamnosus GG 10 1 cap PO DAILY 04/01/23 07/18/23 billion cell-inulin 200 mg capsule ([facility]) fluticasone propionate 50 1 spray intranasal BID 04/01/23 07/18/23 mcg/actuation nasal spray,suspension (Flonase Allergy Relief) albuterol sulfate 90 mcg/actuation 2 puff inhalation QID PRN 06/22/23 07/18/23 aerosol inhaler Shortness Of Breath Or Wheezing [id number] 600 unit 600 unit PO DAILY 06/22/23 07/18/23 capsule buspirone 10 mg tablet 10 mg PO BID PRN Anxiety 06/22/23 07/18/23 esomeprazole magnesium 40 mg 60 mg PO DAILY 06/22/23 07/18/23 capsule,delayed release furosemide 40 mg tablet 20 mg PO DAILY 06/22/23 07/18/23 ibuprofen 200 mg tablet 200 mg PO Q12H PRN Pain 06/22/23 07/18/23 methotrexate sodium 2.5 mg tablet 2.5 mg PO WEEKLY 06/22/23 07/18/23 peg 400-propylene glycol 0.4 %-0.3 1 drp ophthalmic (eye) DAILY 06/22/23 07/18/23 % eye gel drops tetrahydrozoline 0.05 %-[id number] 1 drp EACH EYE DAILY 06/22/23 07/18/23 0.1 %-[id number] 1 %-povdn 1 % eye drops (Eye Drops Advanced Relief) Allergies Allergy/AdvReac Type Severity Reaction Status Date / Time No Known Allergies Allergy Verified 07/18/23 13:59 Review of Systems Review of Systems: A 10 system review of systems was completed on the patient and is negative except for what is stated in the HPI. Nursing and ancillary documentation was reviewed. [facility] Past Medical History Medical History Anxiety Asthma Chronic anticoagulation Chronic hyponatremia Chronic pain syndrome Chronic, continuous use of opioids Coronary artery disease Angioplasty of a diagonal lesion in 01/2018. Cardiac catheterization 06/2019 showed patent coronary arteries. Deep venous thrombosis Degenerative joint disease involving multiple joints Depression Gastroesophageal reflux disease Heart failure with preserved ejection fraction Hiatal hernia Hyperlipidemia Hypertension Hypothyroidism Irritable bowel syndrome Obstructive sleep apnea Noncompliant with CPAP. Paroxysmal atrial fibrillation Peptic ulcer Peripheral neuropathy Pneumonia Rheumatoid arthritis Seasonal allergies Type 2 diabetes mellitus without complications Diet-controlled. Hemoglobin A1c was 5.7% on 01/24/2021. Surgical History Surgical History History of appendectomy History of arthroscopy of both shoulders History of cardiac catheterization Angioplasty of a diagonal stenosis 01/2018. Cardiac catheterization 06/2019 showed patent coronary arteries. History of carpal tunnel releas
[2023-08-14 03:42] LABS: Partial Thromboplastin Time 30.3 SECONDS (22.3-36.8)
[2023-08-14 03:47] LABS: Alanine Aminotransferase 21 U/L (6-35); Alkaline Phosphatase 124 U/L (38-126); Anion Gap 11 mmol/L (8-16); Aspartate Amino Transferase 20 U/L (14-36); Bilirubin,Total 0.6 mg/dL (0.2-1.3); Blood Urea Nitrogen 14 mg/dL (7-17); Calcium 9.3 mg/dL (8.4-10.2); Carbon Dioxide 24 mmol/L (22-30); Chloride 96 mmol/L (98-107); Estimated Glomerular Filt Rate > 60; Glucose 173 mg/dL (65-110); Lipase 46 U/L (23-300); Potassium 3.7 mmol/L (3.4-5.0); Sodium 131 mmol/L (137-145)
[2023-08-14 03:59] LABS: NT Pro B Type Natriuretic Pept 2060 pg/mL (19.9-100); Troponin I < 0.012 ng/mL (0.000-0.034)
[2023-08-14 04:07] LABS: Atypical Lymphocytes Present; Platelet Estimate Adequate (Adequate); Poikilocytosis 1+ (NORMAL); Schistocytes Rare (NORMAL)
[2023-08-14 04:08] LABS: Smudge Cells PRESENT
[2023-08-14] MEDS: oxyCODONE/ACETAMINOPHEN (*CRX) 5-325 MG TABLET 1 TABLET PO (04:52)
[2023-08-14] MEDS: dilTIAZem 100 MG/100 ML 100 MG/100 ML BAG IV CONT ×2 (04:53→22:20)
--- NOTE | 2023-08-14 05:03 | PC.NURSE ---
Patient's heart rate excelled to over 100 bpm, Dr. Mejia made aware and Diltiazem infusion started (See MAR). Heart rate continuing to spike, and infusion is titratable every [address] Mejia made aware.
--- NOTE | 2023-08-14 06:43 | ADMGEN ---
This patient, Aracely Spear, was admitted to IMU Room 201-01. Patient/family oriented to hospital policies and general routines including ID bracelet, bed and alarms, visiting hours, pain management, procedures, bathroom and other care routines, personal items, smoking policy, room service/diet, and visiting hours. Information on how to activate the Rapid Response Team has been discussed. Patient/Family are encouraged to report perceived risks to care and to ask questions if they do not understand what they are told or what they should do.
[2023-08-14 07:04] LABS: Troponin I 0.103 ng/mL (0.000-0.034)
--- NOTE | 2023-08-14 08:03 | PC.NURSE ---
Spoke with Dr. Hernandez about lab results and patients heart rate. Orders to increase Diltiazem drip.
[2023-08-14] MEDS: dilTIAZem 100 MG/100 ML 100 MG/100 ML BAG 10 MG IV CONT (08:07)
--- NOTE | 2023-08-14 08:48 | PM.IMHP ---
H&P: HPI History of Present Illness Date/Time: 08/14/23 08:48 Chief Complaint: Chest pain Narrative: 78-year-old female with history of atrial fibrillation, heart disease, hyperlipidemia, hypothyroidism among other comorbidities is presenting with chest pain. Patient states that chest pain was at the center of her chest and worsened with exertion and was associated with some shortness of breath. She denied any radiation. She denies nausea, vomiting or diarrhea. She states she has felt this before but not recently. She states that it came on suddenly yesterday and has been intermittent since then. Review of Systems Review of Systems: 12 point review of systems was assessed and was negative except as noted in the HPI PMFSH Past Medical History Medical History Anxiety Asthma Chronic anticoagulation Chronic hyponatremia Chronic pain syndrome Chronic, continuous use of opioids Coronary artery disease Angioplasty of a diagonal lesion in 01/2018. Cardiac catheterization 06/2019 showed patent coronary arteries. Deep venous thrombosis Degenerative joint disease involving multiple joints Depression Gastroesophageal reflux disease Heart failure with preserved ejection fraction Hiatal hernia Hyperlipidemia Hypertension Hypothyroidism Irritable bowel syndrome Obstructive sleep apnea Noncompliant with CPAP. Paroxysmal atrial fibrillation Peptic ulcer Peripheral neuropathy Pneumonia Rheumatoid arthritis Seasonal allergies Type 2 diabetes mellitus without complications Diet-controlled. Hemoglobin A1c was 5.7% on 01/24/2021. Surgical History Surgical History History of appendectomy History of arthroscopy of both shoulders History of cardiac catheterization Angioplasty of a diagonal stenosis 01/2018. Cardiac catheterization 06/2019 showed patent coronary arteries. History of carpal tunnel release History of cataract extraction History of cholecystectomy History of foot surgery History of hysterectomy History of phacoemulsification of cataract with intraocular lens implantation Family History Family History Grandparent Diabetes mellitus Father Acute myocardial infarction Diabetes mellitus Hypertension Mother Hypertension Diabetes mellitus Sibling Diabetes mellitus Hypertension Other Family history of cardiovascular disease Family history of malignant neoplasm of brain Social History Social History Social History: The patient lives in [place]. Her recently passed. 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 Lifelong nonsmoker. No alcohol or illicit substance abuse. Per patient, POA is [place], friend. Caffeine-soda Smoking status: Never smoker Alcohol intake: never Substance use: never Substance use type: does not use Other substance usage details: Medical marijuana occassionally - 1 every 6 months Lack of Transportation: No Lack of Food: Never True Current Housing: I Have Housing Concerned About Future Housing: No Difficulty Paying Gas/Electric Bills: No Difficulty Paying for Meds: No Currently Unemployed: No Education: Associate Degree Difficulty w/ Childcare or Family Care: No Spiritual care concerns: No Agree to blood products: Yes Meds Home Medications and Allergies Home Medications Medication Instructions Recorded Confirmed Type aspirin 81 mg tablet,delayed 81 mg PO DAILY 07/29/19 08/14/23 History release (Adult Low Dose Aspirin) nitroglycerin 0.4 mg sublingual 0.4 mg sublingual Q5M PRN Chest 07/29/19 08/14/23 History tablet Pain sodium chloride 1 gram tablet 1 g PO BID #30 tabs 12/02/22 08/14/23 Rx cetirizine 10 mg capsule 10 mg PO DAILY 03/15/23 08/14/23 History ezetimibe 10 mg tablet
[2023-08-14] MEDS: ASPIRIN 81 MG CHEWABLE TABLET PO (09:23)
[2023-08-14 10:17] LABS: Troponin I 0.174 ng/mL (0.000-0.034)
--- NOTE | 2023-08-14 13:45 | PM.CNCAR ---
Assessment and Plan Assessment and plan (1) Atrial fibrillation with rapid ventricular response: Code(s): I48.91 - Unspecified atrial fibrillation Status: Acute Assessment and Plan: History of paroxysmal atrial fibrillation. Presents now with atrial fibrillation with RVR. Rate is controlled on diltiazem drip. Continue diltiazem gtt for now Increase tomorrow's p.o. dose of diltiazem to 240mg, stopp gtt after first dose of p.o. is given Continue telemetry for now Continue anticoagulation with apixaban 5mg b.i.d (2) Chest pain: Code(s): R07.9 - Chest pain, unspecified Status: Acute Assessment and Plan: Atypical chest pain. Probably related to tachycardia. Resolved now that heart rate is controlled. Repeat EKG now. She had a lexiscan stress test a year ago that did not show any ischemia, so no plan for further stress testing at this time. (3) Heart failure with preserved ejection fraction: Qualifiers: Heart failure chronicity: chronic Qualified Code(s): I50.32 - Chronic diastolic (congestive) heart failure Code(s): I50.30 - Unspecified diastolic (congestive) heart failure Status: Acute Assessment and Plan: She does not appear to be in any decompensated heart failure. Continue current medical regimen (4) Hypertension: Qualifiers: Hypertension type: unspecified Qualified Code(s): I10 - Essential (primary) hypertension Code(s): I10 - Essential (primary) hypertension Status: Chronic Assessment and Plan: At goal. History of Present Illness History of Present Illness Consult date/time: 08/14/23 13:45 Requesting physician: Shannon Hernandez DO Consult reason: atrial fibrillation Reason For Visit: chest pain,afib with rvr Narrative: Sharona Spear is an 78 year old female with a history of coronary artery disease, hypertension, and atrial fibrillation. She is hospitalized with chest pain. She states she was sitting in her chair watching TV and had a sudden onset of central chest pain that was associated with rapid, pounding heartbeat and shortness of breath. She took nitroglycerin and aspirin at home and then proceeded to the emergency department. Her initial EKG showed atrial fibrillation with rapid ventricular response and a heart rate of 161 beats per minute. She has been placed on a diltiazem drip which is providing adequate rate control. Currently, she denies any chest pain or shortness of breath. She does complain of having pain all over because of her arthritis. Review of Systems Review of Systems: All systems reviewed & are unremarkable except as noted in HPI and below PMFSH Past Medical History Medical History Anxiety Asthma Chronic anticoagulation Chronic hyponatremia Chronic pain syndrome Chronic, continuous use of opioids Coronary artery disease Angioplasty of a diagonal lesion in 01/2018. Cardiac catheterization 06/2019 showed patent coronary arteries. Deep venous thrombosis Degenerative joint disease involving multiple joints Depression Gastroesophageal reflux disease Heart failure with preserved ejection fraction Hiatal hernia Hyperlipidemia Hypertension Hypothyroidism Irritable bowel syndrome Obstructive sleep apnea Noncompliant with CPAP. Paroxysmal atrial fibrillation Peptic ulcer Peripheral neuropathy Pneumonia Rheumatoid arthritis Seasonal allergies Type 2 diabetes mellitus without complications Diet-controlled. Hemoglobin A1c was 5.7% on 01/24/2021. Surgical History Surgical History History of appendectomy History of arthroscopy of both shoulders History of cardiac catheterization Angioplasty of a diagonal stenosis 01/2018. Cardiac catheterization 06/2019 showed patent coronary arteries. History of carpal tunnel release History of cataract extraction History of chol
[2023-08-14] MEDS: MONTELUKAST SODIUM 10 MG TABLET PO (14:30)
[2023-08-14] MEDS: EZETIMIBE 10 MG TABLET PO (14:30)
[2023-08-14] MEDS: LORATADINE 10 MG TABLET PO (14:31)
[2023-08-14] MEDS: predniSONE 10 MG TABLET PO (14:31)
[2023-08-14] MEDS: APIXABAN 5 MG TABLET PO ×2 (14:31→20:24)
[2023-08-14] MEDS: MAGNESIUM OXIDE 400 MG TABLET PO (14:31)
[2023-08-14] MEDS: FOLIC ACID 1 MG TABLET 3 MG PO (14:31)
[2023-08-14] MEDS: ASPIRIN 81 MG ENTERIC TABLET PO (14:31)
[2023-08-14] MEDS: VALSARTAN 160 MG TABLET PO (14:31)
[2023-08-14] MEDS: FUROSEMIDE 20 MG TABLET PO (14:31)
[2023-08-14] MEDS: NEBIVOLOL HCL 5 MG TABLET PO (14:32)
[2023-08-14] MEDS: oxyCODONE/ACETAMINOPHEN (*CRX) 10-325 MG TABLET 1 TAB PO ×2 (14:32→20:23)
--- NOTE | 2023-08-14 14:47 | ECG_ITS ---
Measurements Intervals [place] Rate: 84 P: [place]: 0 QRS: -21 QRSD: 85 T: 53 QT: 363 QTc: 430 Interpretive Statements ATRIAL FIBRILLATION INCOMPLETE RIGHT BUNDLE BRANCH BLOCK LEFT VENTRICULAR HYPERTROPHY BASELINE ARTIFACT- II, III, AVF ABNORMAL ECG COMPARED TO ECG 08/14/2023 03:28:03 HEART RATE HAS DECREASED Electronically Signed On 08-14-2023 15:54:31 APPLICATION SOFTWARE ENGINEER by Jasvir Steele D.O.
[2023-08-14] MEDS: SODIUM CHLORIDE 1 GM TABLET PO (17:27)
[2023-08-14] MEDS: ATORVASTATIN 40 MG TABLET PO (20:24)
[2023-08-14] MEDS: FLUTICASONE/SALMETEROL 115-21 MCG INHALER 1 PUFF 2 PUFF INHALATION (20:48)
--- NOTE | 2023-08-14 22:17 | PC.NURSE ---
Patient's diltiazem dripp at 10mg/hour. Heart rate 60's to 70's. Spoke with Dr. Jenkins and received orders to continue the drip at 5mg/hour
[2023-08-15] VITALS (24 sets, daily range): BP systolic 106–130; BP diastolic 53–92; PULSE 76–141; RESP 16–20; TEMP 36.1–36.7; O2SAT 97–100
[2023-08-15] MEDS: oxyCODONE/ACETAMINOPHEN (*CRX) 10-325 MG TABLET 1 TAB PO ×4 (03:07→21:37)
[2023-08-15] MEDS: dilTIAZem 100 MG/100 ML 100 MG/100 ML BAG IV CONT (03:09)
[2023-08-15 03:11] LABS: Appearance Urine Cloudy (Clear); Bacteria Urine None Seen /hpf; Bilirubin Urine Negative (Negative); Blood Urine Negative (Negative); Color Urine Yellow (Yellow); Glucose Urine UA Trace mg/dL (Negative); Ketones Urine Negative (Negative); Leukocyte Esterase Ur Negative LEU/UL (Negative); Nitrate Urine Negative (Negative); Non Pathogenic Casts 0-2; Protein Urine Negative (Negative); RBC Urine 0-2 /hpf (0-2); Specific Grav Ur 1.012 (1.001-1.035); Squamous Epithelial Cell Urine None seen /hpf (Few); Urobilinogen Urine 0.2 mg/dL (<2.0); WBC Urine 0-5 /hpf
--- NOTE | 2023-08-15 03:12 | PC.NURSE ---
Patient has non skid socks within reach. She chooses not to wear them in bed.
[2023-08-15 03:20] LABS: Add Urine Microscopic? YES
[2023-08-15] MEDS: LEVOTHYROXINE SODIUM 88 MCG TABLET PO (06:22)
--- NOTE | 2023-08-15 07:44 | PM.IMPN ---
Progress Note: A&P Assessment and Plan (1) Atrial fibrillation with rapid ventricular response: Code(s): I48.91 - Unspecified atrial fibrillation Status: Acute Assessment and Plan: On diltiazem drip, uncontrolled, drip recently increased Cardiology recommending continued anticoagulation with Eliquis, increasing home diltiazem to 240 mg and stopping the drip 08/15 Monitor telemetry (2) Chest pain: Code(s): R07.9 - Chest pain, unspecified Status: Acute Assessment and Plan: Trend troponin, monitor telemetry Cardiology consult appreciated, no further workup necessary (3) Coronary artery disease: Qualifiers: Associated angina: without angina Coronary Disease-Associated Artery/Lesion type: [place] artery [place] vs. transplanted heart: [place] heart Qualified Code(s): I25.10 - Atherosclerotic heart disease of [place] coronary artery without angina pectoris Code(s): I25.10 - Atherosclerotic heart disease of [place] coronary artery without angina pectoris Status: Acute (4) Hypertension: Qualifiers: Hypertension type: unspecified Qualified Code(s): I10 - Essential (primary) hypertension Code(s): I10 - Essential (primary) hypertension Status: Chronic Assessment and Plan: Blood pressures reviewed 08/14 (5) Gastroesophageal reflux disease: Qualifiers: Esophagitis presence: esophagitis presence not specified Qualified Code(s): K21.9 - Gastro-esophageal reflux disease without esophagitis Code(s): K21.9 - Gastro-esophageal reflux disease without esophagitis Status: Acute Plan DVT prophylaxis with Eliquis GI prophylaxis not indicated Code status full code Subjective Date/time seen: 08/15/23 07:44 Interval history: 78-year-old female with history of atrial fibrillation, heart disease, hyperlipidemia, hypothyroidism among other comorbidities is presenting with chest pain. No overnight events noted. No chest pain or shortness of breath. No nausea, vomiting or diarrhea. No fevers or chills. Review of Systems Review of Systems: 12 point review of systems was assessed and was negative except as noted in the HPI Exam Narrative: General: No acute distress, alert and oriented per baseline HEENT: Atraumatic, normocephalic, mucous membranes moist CV: Tachycardic, S1, S2 Lungs: Clear to auscultation bilaterally, no rales or crackles noted, no wheezes, good air entry Abdomen: Soft, nontender, nondistended Extremities: Normal to inspection Skin: No rashes noted, no lesions or wounds seen Psych: Euthymic, normal affect Objective Data Vital Signs Vital Signs: Vital Signs - 24 hr 08/14/23 08:07 08/14/23 08:00 08/14/23 12:00 Temperature 97.9 F Pulse Rate 158 H 153 H 89 Respiratory Rate 22 H Blood Pressure 141/75 H Pulse Oximetry 92 Oxygen Delivery Fraction of Inspired Oxygen 08/14/23 10:00 08/14/23 14:32 08/14/23 16:00 Temperature 96.6 F L Pulse Rate 109 H 86 84 Respiratory Rate 16 Blood Pressure 130/80 Pulse Oximetry 98 Oxygen Delivery Fraction of Inspired Oxygen 08/14/23 12:00 08/14/23 14:00 08/14/23 16:00 Temperature Pulse Rate 86 82 90 Respiratory Rate Blood Pressure Pulse Oximetry Oxygen Delivery Fraction of Inspired Oxygen 08/14/23 18:00 08/14/23 19:50 08/14/23 20:51 Temperature 98.6 F Pulse Rate 69 64 74 Respiratory Rate 18 18 Blood Pressure 107/54 L Pulse Oximetry 100 Oxygen Delivery Fraction of Inspired Oxygen 08/14/23 20:51 08/14/23 20:00 08/14/23 20:00 Temperature Pulse Rate 74 74 71 Respiratory Rate 18 18 Blood Pressure Pulse Oximetry 96 96 Oxygen Delivery Room Air Room Air Fraction of Inspired Oxygen 21 08/14/23 22:00 08/14/23 22:20 08/14/23 23:40 Temperature 97.6 F Pulse Rate 76 78 76 Respiratory Rate 20 Blood Pressure 103/61 Pulse Oximetry
[2023-08-15] MEDS: FOLIC ACID 1 MG TABLET 3 MG PO (08:19)
[2023-08-15] MEDS: LORATADINE 10 MG TABLET PO (08:19)
[2023-08-15] MEDS: EZETIMIBE 10 MG TABLET PO (08:19)
[2023-08-15] MEDS: MAGNESIUM OXIDE 400 MG TABLET PO (08:19)
[2023-08-15] MEDS: CYANOCOBALAMIN 1,000 MCG TABLET 1000 MCG PO (08:20)
[2023-08-15] MEDS: VALSARTAN 160 MG TABLET PO (08:20)
[2023-08-15] MEDS: LINACLOTIDE 145 MCG CAPSULE PO (08:20)
[2023-08-15] MEDS: MONTELUKAST SODIUM 10 MG TABLET PO (08:20)
[2023-08-15] MEDS: ASPIRIN 81 MG CHEWABLE TABLET PO (08:20)
[2023-08-15] MEDS: dilTIAZem HCL CD 120 MG CAP.24HR 240 MG PO (08:20)
[2023-08-15] MEDS: FUROSEMIDE 20 MG TABLET PO (08:21)
[2023-08-15] MEDS: APIXABAN 5 MG TABLET PO ×2 (08:21→21:34)
[2023-08-15] MEDS: SODIUM CHLORIDE 1 GM TABLET PO ×2 (08:21→17:28)
[2023-08-15] MEDS: NEBIVOLOL HCL 5 MG TABLET PO (08:21)
[2023-08-15] MEDS: ASPIRIN 81 MG ENTERIC TABLET PO (08:21)
[2023-08-15] MEDS: predniSONE 10 MG TABLET PO (08:22)
[2023-08-15] MEDS: FLUTICASONE/SALMETEROL 115-21 MCG INHALER 1 PUFF 2 PUFF INHALATION ×2 (08:46→20:25)
--- NOTE | 2023-08-15 10:37 | PM.PNCARD ---
Progress Note: A&P Assessment and Plan (1) Atrial fibrillation with rapid ventricular response: Code(s): I48.91 - Unspecified atrial fibrillation Status: Acute Assessment and Plan: History of paroxysmal atrial fibrillation. Presents now with atrial fibrillation with RVR. Rate was well controlled with diltiazem, but earlier this morning she became persistently tachycardic and symptomatic. Discontinue diltiazem Shift to amiodarone, will give bolus and start continuous drip following bolus Continue telemetry Continue anticoagulation with apixaban 5mg b.i.d (2) Chest pain: Code(s): R07.9 - Chest pain, unspecified Status: Acute Assessment and Plan: Atypical chest pain. Probably related to tachycardia. Resolved now that heart rate is controlled. Repeat EKG showed resolution of ST changes with controlled heart rate. She had a lexiscan stress test a year ago that did not show any ischemia, so no plan for further stress testing at this time. (3) Heart failure with preserved ejection fraction: Qualifiers: Heart failure chronicity: chronic Qualified Code(s): I50.32 - Chronic diastolic (congestive) heart failure Code(s): I50.30 - Unspecified diastolic (congestive) heart failure Status: Acute Assessment and Plan: She does not appear to be in any decompensated heart failure. Continue current medical regimen (4) Hypertension: Qualifiers: Hypertension type: unspecified Qualified Code(s): I10 - Essential (primary) hypertension Code(s): I10 - Essential (primary) hypertension Status: Chronic Assessment and Plan: At goal. Subjective Date/time seen: 08/15/23 10:37 Interval history: Cardiology follow up for atrial fibrillation Rate was well controlled overnight but earlier this morning heart rate increased to 140 - 160. She was experiencing some shortness of breath and chest discomfort. Diltiazem gtt was increased to 10mg/hr, but tachycardia is persisting. Review of Systems Review of Systems: All systems reviewed & are unremarkable except as noted in HPI and below Exam Const: General: comfortable, no acute distress, alert and awake Orientation/consciousness: patient oriented x3 HENMT: Head: normal to inspection Eyes: General: appearance normal, both eyes and all related structures Pupils: Equal, round and reactive pupils present Neck: Neck: normal visual inspection, supple and no JVD Carotids: normal carotid upstroke Resp: Effort & Inspection: normal respiratory effort Auscultation: clear to auscultation bilaterally Cardio: Rate: tachycardic Rhythm: abnormal rhythm irregularly irregular Heart sounds: S1 normal heart sound present, S2 normal heart sound present and no murmurs GI: Auscultation: normal bowel sounds Skin: General skin exam: normal color Neuro: General: patient oriented x3 Cranial nerves: Yes Equal, round and reactive pupils present Extrem: General: normal to inspection Psych: Appearance: grossly normal Mental Status: mental status grossly normal Objective Data Vital Signs Vital Signs: Vital Signs - 24 hr 08/14/23 12:00 08/14/23 14:32 08/14/23 16:00 Temperature 36.6 C 35.9 C L Pulse Rate 89 86 84 Respiratory Rate 22 H 16 Blood Pressure 141/75 H 130/80 Pulse Oximetry 92 98 Oxygen Delivery Fraction of Inspired Oxygen 08/14/23 12:00 08/14/23 14:00 08/14/23 16:00 Temperature Pulse Rate 86 82 90 Respiratory Rate Blood Pressure Pulse Oximetry Oxygen Delivery Fraction of Inspired Oxygen 08/14/23 18:00 08/14/23 19:50 08/14/23 20:51 Temperature 37.0 C Pulse Rate 69 64 74 Respiratory Rate 18 18 Blood Pressure 107/54 L Pulse Oximetry 100 Oxygen Delivery Fraction of Inspired Oxygen 08/14/23 20:51 08/14/23 20:00 08/14/23 20:00 Temperature Pulse Rate 74 74 71 Respiratory Rate 18 18 Blood Pressure Pulse Oximetry 96 96
[2023-08-15] MEDS: AMIODARONE 150 MG/D5W 100 ML 150 MG/100 ML BAG 600 MG IV CONT (11:34)
[2023-08-15] MEDS: AMIODARONE 360 MG/D5W 200 ML 360 MG/200 ML BAG 33.33 MG IV CONT (11:44)
[2023-08-15] MEDS: LORazepam INJ (*CRX) 2 MG/ML VIAL 0.5 MG IV PUSH (13:53)
[2023-08-15] MEDS: AMIODARONE 360 MG/D5W 200 ML 360 MG/200 ML BAG 16.67 MG IV CONT (17:29)
[2023-08-15] MEDS: ATORVASTATIN 40 MG TABLET PO (21:34)
[2023-08-16] VITALS (26 sets, daily range): BP systolic 129–186; BP diastolic 53–92; PULSE 57–127; RESP 16–18; TEMP 36.3–36.9; O2SAT 94–100
[2023-08-16] MEDS: oxyCODONE/ACETAMINOPHEN (*CRX) 10-325 MG TABLET 1 TAB PO ×4 (03:27→21:42)
[2023-08-16] MEDS: CALCIUM CARBONATE (TUMS) 500 MG (200 MG ELEMENTAL) PO ×3 (03:29→21:02)
[2023-08-16] MEDS: LEVOTHYROXINE SODIUM 88 MCG TABLET PO (05:29)
[2023-08-16] MEDS: AMIODARONE 360 MG/D5W 200 ML 360 MG/200 ML BAG 16.67 MG IV CONT (05:29)
--- NOTE | 2023-08-16 08:08 | PM.IMPN ---
Progress Note: A&P Assessment and Plan (1) Atrial fibrillation with rapid ventricular response: Code(s): I48.91 - Unspecified atrial fibrillation Status: Acute Assessment and Plan: On diltiazem drip, uncontrolled, drip recently increased Cardiology recommending continued anticoagulation with Eliquis, increasing home diltiazem to 240 mg and stopping the drip 08/15 Monitor telemetry 08/16: amiodarone bolus + drip initiated afternoon 08/15 (2) Chest pain: Code(s): R07.9 - Chest pain, unspecified Status: Acute Assessment and Plan: Trend troponin, monitor telemetry Cardiology consult appreciated, no further workup necessary 08/16: severe heartburn, check ECG + troponin, tums + PPI, consider GI consult if continues (3) Coronary artery disease: Qualifiers: Associated angina: without angina Coronary Disease-Associated Artery/Lesion type: [place] artery [place] vs. transplanted heart: [place] heart Qualified Code(s): I25.10 - Atherosclerotic heart disease of [place] coronary artery without angina pectoris Code(s): I25.10 - Atherosclerotic heart disease of [place] coronary artery without angina pectoris Status: Acute (4) Hypertension: Qualifiers: Hypertension type: unspecified Qualified Code(s): I10 - Essential (primary) hypertension Code(s): I10 - Essential (primary) hypertension Status: Chronic Assessment and Plan: Blood pressures reviewed 08/16 (5) Gastroesophageal reflux disease: Qualifiers: Esophagitis presence: esophagitis presence not specified Qualified Code(s): K21.9 - Gastro-esophageal reflux disease without esophagitis Code(s): K21.9 - Gastro-esophageal reflux disease without esophagitis Status: Acute Plan DVT prophylaxis with Eliquis GI prophylaxis not indicated Code status full code Subjective Date/time seen: 08/16/23 08:08 Interval history: 78-year-old female with history of atrial fibrillation, heart disease, hyperlipidemia, hypothyroidism among other comorbidities is presenting with chest pain. No overnight events noted. No shortness of breath. No nausea, vomiting or diarrhea. No fevers or chills. She is complaining of severe heartburn. Review of Systems Review of Systems: 12 point review of systems was assessed and was negative except as noted in the HPI Exam Narrative: General: No acute distress, alert and oriented per baseline HEENT: Atraumatic, normocephalic, mucous membranes moist CV: Tachycardic, S1, S2 Lungs: Clear to auscultation bilaterally, no rales or crackles noted, no wheezes, good air entry Abdomen: Soft, nontender, nondistended Extremities: Normal to inspection Skin: No rashes noted, no lesions or wounds seen Psych: Euthymic, normal affect Objective Data Vital Signs Vital Signs: Vital Signs - 24 hr 08/15/23 08:21 08/15/23 08:46 08/15/23 09:40 Temperature Pulse Rate 129 H 80 134 H Respiratory Rate 16 Blood Pressure Pulse Oximetry Oxygen Delivery 08/15/23 11:34 08/15/23 11:44 08/15/23 12:00 Temperature Pulse Rate 141 H 132 H Respiratory Rate Blood Pressure 109/79 Pulse Oximetry Oxygen Delivery Room Air 08/15/23 10:00 08/15/23 12:00 08/15/23 14:00 Temperature Pulse Rate 118 H 130 H 105 H Respiratory Rate Blood Pressure Pulse Oximetry Oxygen Delivery 08/15/23 15:45 08/15/23 13:30 08/15/23 16:00 Temperature 97 F L Pulse Rate 125 H 124 H Respiratory Rate 18 Blood Pressure 109/72 106/53 L Pulse Oximetry 99 97 Oxygen Delivery Room Air 08/15/23 16:00 08/15/23 17:29 08/15/23 18:00 Temperature Pulse Rate 106 H 120 H 123 H Respiratory Rate Blood Pressure Pulse Oximetry Oxygen Delivery 08/15/23 20:27 08/15/23 19:45 08/15/23 20:00 Temperature 97.6 F Pulse Rate 106 H 122 H Respiratory Rate 18 Blood Pressure 120/84 Pulse
[2023-08-16] MEDS: FLUTICASONE/SALMETEROL 115-21 MCG INHALER 1 PUFF 2 PUFF INHALATION ×2 (08:21→19:44)
[2023-08-16] MEDS: FOLIC ACID 1 MG TABLET 3 MG PO (08:35)
[2023-08-16] MEDS: CYANOCOBALAMIN 1,000 MCG TABLET 1000 MCG PO (08:36)
[2023-08-16] MEDS: LINACLOTIDE 145 MCG CAPSULE PO (08:36)
[2023-08-16] MEDS: predniSONE 10 MG TABLET PO (08:36)
[2023-08-16] MEDS: MONTELUKAST SODIUM 10 MG TABLET PO (08:36)
[2023-08-16] MEDS: ASPIRIN 81 MG CHEWABLE TABLET PO (08:36)
[2023-08-16] MEDS: FUROSEMIDE 20 MG TABLET PO (08:36)
[2023-08-16] MEDS: APIXABAN 5 MG TABLET PO ×2 (08:36→20:02)
[2023-08-16] MEDS: LORATADINE 10 MG TABLET PO (08:36)
[2023-08-16] MEDS: NEBIVOLOL HCL 5 MG TABLET PO (08:36)
[2023-08-16] MEDS: MAGNESIUM OXIDE 400 MG TABLET PO (08:37)
[2023-08-16] MEDS: SODIUM CHLORIDE 1 GM TABLET PO ×2 (08:37→15:30)
[2023-08-16] MEDS: ASPIRIN 81 MG ENTERIC TABLET PO (08:37)
[2023-08-16] MEDS: VALSARTAN 160 MG TABLET PO (08:37)
[2023-08-16] MEDS: EZETIMIBE 10 MG TABLET PO (08:37)
--- NOTE | 2023-08-16 13:01 | PM.PNCARD ---
Progress Note: A&P Assessment and Plan (1) Atrial fibrillation with rapid ventricular response: Code(s): I48.91 - Unspecified atrial fibrillation Status: Acute Assessment and Plan: History of paroxysmal atrial fibrillation. Presents now with atrial fibrillation with RVR. Rate transiently controlled with diltiazem, but required initiation of IV amiodarone due to persistent tachycardia in which she was symptomatic. She has now converted to sinus rhythm of IV amiodarone. Continue IV amiodarone today transition to oral regimen amiodarone 400 mg b.i.d. for 1 week then 4 mg daily for 2 weeks then 200 mg daily thereafter. For now, continue nebivolol 5 mg daily as heart rate permits. Continue to monitor closely to avoid symptomatic bradycardia. Continue telemetry Continue anticoagulation with apixaban 5mg b.i.d. monitor for bleeding. Ambulate with caution. (2) Heart failure with preserved ejection fraction: Qualifiers: Heart failure chronicity: chronic Qualified Code(s): I50.32 - Chronic diastolic (congestive) heart failure Code(s): I50.30 - Unspecified diastolic (congestive) heart failure Status: Acute Assessment and Plan: She is not currently in decompensated heart failure. Continue current medical regimen with Lasix 20 mg daily, nebivolol 5 mg daily, valsartan 160 mg daily. Monitor renal function electrolytes closely. She remains on sodium chloride 1 g twice daily for hyponatremia. (3) Elevated troponin: Code(s): R79.89 - Other specified abnormal findings of blood chemistry Status: Resolved Assessment and Plan: Most likely type 2 infarction secondary to demand ischemia in setting of AFib with RVR not secondary to acute coronary syndrome and/or plaque rupture. Continue aspirin 81 mg daily. Atorvastatin 40 mg daily. Consider repeat ischemic testing as outpatient. She will follow-up with Dr. Pedraza (4) Chest pain: Code(s): R07.9 - Chest pain, unspecified Status: Acute Assessment and Plan: Atypical chest pain. Probably related to tachycardia now resolved. Repeat EKG showed resolution of ST changes with controlled heart rate. She had a lexiscan stress test a year ago that did not show any ischemia, so no plan for further stress testing at this time. Patient appears to have been receiving dual that aspirin 81 mg daily orders. Will discontinue to 1 tablet daily. (5) Coronary artery disease: Qualifiers: Coronary Disease-Associated Artery/Lesion type: [place] artery [place] vs. transplanted heart: [place] heart Associated angina: without angina Qualified Code(s): I25.10 - Atherosclerotic heart disease of [place] coronary artery without angina pectoris Code(s): I25.10 - Atherosclerotic heart disease of [place] coronary artery without angina pectoris Status: Acute Assessment and Plan: Continue aggressive medical therapy. Aspirin 81 mg daily, atorvastatin 40 mg daily, nebivolol 5 mg daily. (6) Hypertension: Qualifiers: Hypertension type: unspecified Qualified Code(s): I10 - Essential (primary) hypertension Code(s): I10 - Essential (primary) hypertension Status: Chronic Assessment and Plan: Controlled. Continue valsartan 160 mg daily, nebivolol 5 mg daily, Lasix 20 mg daily. (7) Chronic hyponatremia: Code(s): E87.1 - Hypo-osmolality and hyponatremia Status: Acute Assessment and Plan: Check BMP. She remains on sodium chloride supplementation. She was mildly hyponatremic 2 days ago. (8) Hypothyroidism: Qualifiers: Hypothyroidism type: unspecified Qualified Code(s): E03.9 - Hypothyroidism, unspecified Code(s): E03.9 - Hypothyroidism, unspecified Status: Acute Assessment and Plan: TSH stable 0.4 very slightly hyperthyroid likely subclinical. Continue management with levothyroxine 88 mcg daily, management per primary service. Subjectiv
--- NOTE | 2023-08-16 14:03 | ECG_ITS ---
Measurements Intervals [place] Rate: 57 P: 67 [place]: 183 QRS: -29 QRSD: 81 T: 35 QT: 431 QTc: 420 Interpretive Statements SINUS BRADYCARDIA BASELINE ARTIFACT VOLTAGE CRITERIA FOR LVH ABNORMAL ECG COMPARED TO ECG 08/14/2023 15:48:55 SINUS BRADYCARDIA NOW PRESENT Electronically Signed On 08-17-2023 11:47:37 HOT DIP GALVANIZER by Ramy White M.D.
[2023-08-16 15:07] LABS: Anion Gap 14 mmol/L (8-16); Blood Urea Nitrogen 29 mg/dL (7-17); Carbon Dioxide 23 mmol/L (22-30); Chloride 84 mmol/L (98-107); Estimated Glomerular Filt Rate 53; Glucose 258 mg/dL (65-110); Magnesium 1.3 mg/dL (1.6-2.3); Potassium 4.5 mmol/L (3.4-5.0); Sodium 121 mmol/L (137-145)
[2023-08-16] MEDS: PANTOPRAZOLE 40 MG TABLET PO ×2 (15:13→20:02)
[2023-08-16 15:17] LABS: Troponin I 0.034 ng/mL (0.000-0.034)
[2023-08-16] MEDS: MAGNESIUM SULF 2 GM/WATER 50ML 2 GM/50 ML BAG IVPB (16:34)
[2023-08-16] MEDS: ATORVASTATIN 40 MG TABLET PO (20:02)
[2023-08-16] MEDS: AMIODARONE HCL 200 MG TABLET PO (21:00)
[2023-08-17] VITALS (22 sets, daily range): BP systolic 142–187; BP diastolic 49–78; PULSE 60–78; RESP 18–20; TEMP 36.2–36.6; O2SAT 97–100
[2023-08-17] MEDS: oxyCODONE/ACETAMINOPHEN (*CRX) 10-325 MG TABLET 1 TAB PO ×4 (04:03→23:25)
[2023-08-17] MEDS: LEVOTHYROXINE SODIUM 88 MCG TABLET PO (06:21)
--- NOTE | 2023-08-17 08:00 | ECG_ITS ---
Measurements Intervals [place] Rate: 66 P: 68 IN: 170 QRS: -28 QRSD: 86 T: 27 QT: 421 QTc: 443 Interpretive Statements SINUS RHYTHM BORDERLINE LEFT AXIS DEVIATION MODERATE VOLTAGE CRITERIA FOR LVH ABNORMAL ECG COMPARED TO ECG 08/16/2023 14:23:15 HEART RATE HAS INCREASED Electronically Signed On 08-17-2023 12:11:58 BAIT MAKER by Ramy White M.D.
--- NOTE | 2023-08-17 08:32 | PM.IMPN ---
Progress Note: A&P Assessment and Plan (1) Atrial fibrillation with rapid ventricular response: Code(s): I48.91 - Unspecified atrial fibrillation Status: Acute Assessment and Plan: On diltiazem drip, uncontrolled, drip recently increased Cardiology recommending continued anticoagulation with Eliquis, increasing home diltiazem to 240 mg and stopping the drip 08/15 Monitor telemetry 08/16: amiodarone bolus + drip initiated afternoon 08/15 08/17: cont oral amio, 400 mg BID x 1 week, 400 mg daily x 1 week, then 200 mg daily (2) Chest pain: Code(s): R07.9 - Chest pain, unspecified Status: Acute Assessment and Plan: Trend troponin, monitor telemetry Cardiology consult appreciated, no further workup necessary 08/16: severe heartburn, check ECG + troponin, tums + PPI, consider GI consult if continues 08/17: heartburn continues, GI consult placed (3) Coronary artery disease: Qualifiers: Associated angina: without angina Coronary Disease-Associated Artery/Lesion type: [place] artery [place] vs. transplanted heart: [place] heart Qualified Code(s): I25.10 - Atherosclerotic heart disease of [place] coronary artery without angina pectoris Code(s): I25.10 - Atherosclerotic heart disease of [place] coronary artery without angina pectoris Status: Acute (4) Hypertension: Qualifiers: Hypertension type: unspecified Qualified Code(s): I10 - Essential (primary) hypertension Code(s): I10 - Essential (primary) hypertension Status: Chronic Assessment and Plan: Blood pressures reviewed 08/17 (5) Gastroesophageal reflux disease: Qualifiers: Esophagitis presence: esophagitis presence not specified Qualified Code(s): K21.9 - Gastro-esophageal reflux disease without esophagitis Code(s): K21.9 - Gastro-esophageal reflux disease without esophagitis Status: Acute Assessment and Plan: tums + PPI Plan DVT prophylaxis with Eliquis GI prophylaxis with PPI Code status full code Subjective Date/time seen: 08/17/23 08:32 Interval history: 78-year-old female with history of atrial fibrillation, heart disease, hyperlipidemia, hypothyroidism among other comorbidities is presenting with chest pain. No overnight events noted. No shortness of breath. No nausea, vomiting or diarrhea. No fevers or chills. She is complaining of severe heartburn. 12/3: heartburn continues despite PPI BID and tums q6h. Patient states he has a history of a ?bad? hiatal hernia is requesting to see GI. No other complaints. Review of Systems Review of Systems: 12 point review of systems was assessed and was negative except as noted in the HPI Exam Narrative: General: No acute distress, alert and oriented per baseline HEENT: Atraumatic, normocephalic, mucous membranes moist CV: Regular rate and rhythm, S1, S2 Lungs: Clear to auscultation bilaterally, no rales or crackles noted, no wheezes, good air entry Abdomen: Soft, nontender, nondistended Extremities: Normal to inspection Skin: No rashes noted, no lesions or wounds seen Psych: Euthymic, normal affect Objective Data Vital Signs Vital Signs: Vital Signs - 24 hr 08/16/23 08:36 08/16/23 10:00 08/16/23 08:59 Temperature Pulse Rate 126 H 62 78 Respiratory Rate Blood Pressure Pulse Oximetry Oxygen Delivery 08/16/23 11:19 08/16/23 12:00 08/16/23 12:00 Temperature 97.6 F Pulse Rate 65 67 Respiratory Rate 18 Blood Pressure 129/62 Pulse Oximetry 98 Oxygen Delivery Room Air 08/16/23 14:00 08/16/23 15:33 08/16/23 16:00 Temperature 97.8 F Pulse Rate 67 64 63 Respiratory Rate 16 Blood Pressure 162/65 H Pulse Oximetry 97 Oxygen Delivery 08/16/23 16:00 08/16/23 18:00 08/16/23 18:35 Temperature Pulse Rate 57 L Respiratory Rate Blood Pressure 134/53 L Pulse Oximetry Oxygen Delivery Room Air
[2023-08-17] MEDS: FLUTICASONE/SALMETEROL 115-21 MCG INHALER 1 PUFF 2 PUFF INHALATION ×2 (08:43→21:22)
[2023-08-17] MEDS: MAGNESIUM OXIDE 400 MG TABLET PO (08:57)
[2023-08-17] MEDS: ERGOCALCIFEROL 50,000 UNITS CAPSULE 50000 UNITS PO (08:58)
[2023-08-17] MEDS: LORATADINE 10 MG TABLET PO (08:58)
[2023-08-17] MEDS: CYANOCOBALAMIN 1,000 MCG TABLET 1000 MCG PO (08:59)
[2023-08-17] MEDS: ASPIRIN 81 MG ENTERIC TABLET PO (08:59)
[2023-08-17] MEDS: FUROSEMIDE 20 MG TABLET PO (08:59)
[2023-08-17] MEDS: VALSARTAN 160 MG TABLET PO (08:59)
[2023-08-17] MEDS: LINACLOTIDE 145 MCG CAPSULE PO (08:59)
[2023-08-17] MEDS: APIXABAN 5 MG TABLET PO ×2 (09:00→20:33)
[2023-08-17] MEDS: NEBIVOLOL HCL 5 MG TABLET PO (09:00)
[2023-08-17] MEDS: predniSONE 10 MG TABLET PO (09:00)
[2023-08-17] MEDS: EZETIMIBE 10 MG TABLET PO (09:00)
[2023-08-17] MEDS: AMIODARONE HCL 200 MG TABLET 400 MG PO ×2 (09:01→17:45)
[2023-08-17] MEDS: PANTOPRAZOLE 40 MG TABLET PO ×2 (09:01→20:33)
[2023-08-17] MEDS: SODIUM CHLORIDE 1 GM TABLET PO ×2 (09:02→17:45)
[2023-08-17] MEDS: MONTELUKAST SODIUM 10 MG TABLET PO (09:02)
[2023-08-17 09:24] LABS: Basophils Absolute Auto 0.1 K/mm3 (0.0-0.1); Basophils Percent Auto 0.4 % (0.2-1.2); Eosinophils Absolute Auto 0.1 K/mm3 (0-0.3); Eosinophils Percent Auto 0.4 % (0-4.4); Hematocrit 36.6 % (37.0-47.0); Hemoglobin 11.9 g/dL (12.0-15.0); Immature Granulocyte Absolute 0.42 K/mm3 (0.00-0.031); Immature Granulocyte Percent A 2.2 % (0-0.5); Lymphocytes Absolute Auto 7.73 K/mm3 (0.9-3.2); Lymphocytes Percent Auto 39.9 % (18.3-44.2); Mean Corpuscular HGB Conc 32.5 g/dl (32-36); Mean Corpuscular Hemoglobin 27.8 pg (26-34); Mean Corpuscular Volume 85.5 fl (80-100); Mean Platelet Volume 9.5 fl (7.4-10.4); Monocytes Absolute Auto 0.8 K/mm3 (0.1-0.6); Monocytes Percent Auto 4.3 % (2.6-8.5); Neutrophils Absolute Auto 10.2 K/mm3 (1.3-6.7); Neutrophils Percent Auto 52.8 % (45.5-73.1); Platelet Count Result 339 k/mm3 (150-375); Red Blood Count 4.28 M/mm3 (4.2-5.4); Red Cell Distribution Width 13.3 % (11.5-14.5); White Blood Count 19.4 K/mm3 (4.5-10.0)
[2023-08-17 09:36] LABS: Alanine Aminotransferase 19 U/L (6-35); Albumin Level 3.9 g/dL (3.5-5.1); Alkaline Phosphatase 86 U/L (38-126); Anion Gap 13 mmol/L (8-16); Aspartate Amino Transferase 20 U/L (14-36); Blood Urea Nitrogen 24 mg/dL (7-17); Calcium 9.2 mg/dL (8.4-10.2); Carbon Dioxide 23 mmol/L (22-30); Chloride 86 mmol/L (98-107); Estimated Glomerular Filt Rate > 60; Glucose 177 mg/dL (65-110); Sodium 122 mmol/L (137-145)
[2023-08-17 09:37] LABS: Magnesium 1.8 mg/dL (1.6-2.3)
[2023-08-17 09:53] LABS: Anisocytosis 1+ (NORMAL); Platelet Estimate Adequate (Adequate); Schistocytes None Seen (NORMAL)
--- NOTE | 2023-08-17 10:41 | PM.PNCARD ---
Progress Note: A&P Assessment and Plan (1) Atrial fibrillation with rapid ventricular response: Code(s): I48.91 - Unspecified atrial fibrillation Status: Acute Assessment and Plan: History of paroxysmal atrial fibrillation. Presents now with atrial fibrillation with RVR. Rate transiently controlled with diltiazem, but required initiation of IV amiodarone due to persistent tachycardia in which she was symptomatic. She converted to sinus rhythm of IV amiodarone. amiodarone 400 mg b.i.d. for 1 week then 400mg daily for 1 week then 200 mg daily thereafter. For now, continue nebivolol 5 mg daily as heart rate permits. Continue to monitor closely to avoid symptomatic bradycardia. Continue telemetry Continue anticoagulation with apixaban 5mg b.i.d. monitor for bleeding. Ambulate with caution. H&H stable thus far. If maintaining sinus rhythm stable from cardiac perspective for discharge home tomorrow once BP better controlled. (2) Hypertension: Qualifiers: Hypertension type: unspecified Qualified Code(s): I10 - Essential (primary) hypertension Code(s): I10 - Essential (primary) hypertension Status: Chronic Assessment and Plan: More elevated overnight and this morning. Continue valsartan 160 mg daily, nebivolol 5 mg daily, Lasix 20 mg daily. I would not increase nebivolol for BP control due to risk for symptomatic bradycardia. I would be cautious with aggressive management as BP had been reasonably controlled earlier this hospitalization. (3) Heart failure with preserved ejection fraction: Qualifiers: Heart failure chronicity: chronic Qualified Code(s): I50.32 - Chronic diastolic (congestive) heart failure Code(s): I50.30 - Unspecified diastolic (congestive) heart failure Status: Acute Assessment and Plan: She is not currently in decompensated heart failure. Continue current medical regimen with Lasix 20 mg daily, nebivolol 5 mg daily, valsartan 160 mg daily. Monitor renal function electrolytes closely. She remains on sodium chloride 1 g twice daily for hyponatremia. (4) Coronary artery disease: Qualifiers: Coronary Disease-Associated Artery/Lesion type: [place] artery [place] vs. transplanted heart: [place] heart Associated angina: without angina Qualified Code(s): I25.10 - Atherosclerotic heart disease of [place] coronary artery without angina pectoris Code(s): I25.10 - Atherosclerotic heart disease of [place] coronary artery without angina pectoris Status: Acute Assessment and Plan: Continue aggressive medical therapy. Continue aspirin 81 mg daily, atorvastatin 40 mg daily, nebivolol 5 mg daily. (5) Elevated troponin: Code(s): R79.89 - Other specified abnormal findings of blood chemistry Status: Resolved Assessment and Plan: Most likely type 2 infarction secondary to demand ischemia in setting of AFib with RVR not secondary to acute coronary syndrome and/or plaque rupture. Continue aspirin 81 mg daily. Atorvastatin 40 mg daily. Consider repeat ischemic testing as outpatient. She will follow-up with Dr. Pedraza (6) Chronic hyponatremia: Code(s): E87.1 - Hypo-osmolality and hyponatremia Status: Acute Assessment and Plan: Monitor BMP daily. Patient remains severely hyponatremic and significantly worse since admission. She remains on sodium chloride supplementation. Defer to primary service in this regard. (7) Chest pain: Code(s): R07.9 - Chest pain, unspecified Status: Acute Assessment and Plan: Patient complaining of acid reflux symptoms at present. No recurrent chest pain as previously noted. She had a lexiscan stress test a year ago that did not show any ischemia. Consider outpatient ischemic workup as appropriate with Dr. Pedraza. Defer acid reflux management to primary service. (8) Hypothyroidism: Qualifiers: Hypothyroidism type: unspecifie
[2023-08-17] MEDS: FOLIC ACID 1 MG TABLET 3 MG PO (11:23)
--- NOTE | 2023-08-17 13:50 | WPDGICN ---
Assessment and Plan Assessment and plan (1) Heartburn: Code(s): R12 - Heartburn Status: Acute Assessment and Plan: Patient known to have a sliding hiatal hernia without underlying GE reflux disease. She reports intermittent heartburn perhaps every month or two.. That will last for a day. I agree with her current therapy of omeprazole or Nexium to be taken on a b.i.d. dose. When she gets breakthrough symptoms I would advise she try Mylanta rather than ice cream. She should avoid coffee. Avoid caffeine. Elevate head of bed at night. No late snacks. If symptoms persist elective outpatient EGD can be performed. Patient states her current heartburn that she experienced this admission after drinking coffee has subsided at present. (2) Hiatal hernia: Code(s): K44.9 - Diaphragmatic hernia without obstruction or gangrene Status: Acute (3) Chronic anticoagulation: Code(s): Z79.01 - terminal carman (current) use of anticoagulants Status: Acute (4) Atrial fibrillation with rapid ventricular response: Code(s): I48.91 - Unspecified atrial fibrillation Status: Acute (5) Gastroesophageal reflux disease: Qualifiers: Esophagitis presence: esophagitis presence not specified Qualified Code(s): K21.9 - Gastro-esophageal reflux disease without esophagitis Code(s): K21.9 - Gastro-esophageal reflux disease without esophagitis Status: Acute GI Consult Note Consult date/time: 08/17/23 13:50 Reason for consult: Heartburn HPI: Aracely Spear is a 78 year old female I am asked to see at the request of the hospitalist service because of heartburn. Patient admitted the hospital with poorly controlled atrial fibrillation. She has been given various medications including amiodarone. She states atrial fibrillation was with more controlled rate today. Patient today noticed some heartburn after drinking coffee. She states she has had heartburn intermittently over the years. Typically she will get heartburn every 1-3 months. Typically it will last for 1-2 days. Typically at night. She states many years ago had an endoscopy at our institution in [address] [place] that showed a large hiatal hernia. She had an additional endoscopy at [facility]. Patient has been maintained on either Prilosec or Nexium twice a day she typically buys whichever is cheaper and takes this b.i.d.. Typically this controls her symptoms. When her heartburn flare she will supplement her PPI therapy with cold ice cream. Review of Systems Review of Systems: Review of systems noncontributory. [facility] Past Medical History Medical History Anxiety Asthma Chronic anticoagulation Chronic hyponatremia Chronic pain syndrome Chronic, continuous use of opioids Coronary artery disease Angioplasty of a diagonal lesion in 01/2018. Cardiac catheterization 06/2019 showed patent coronary arteries. Deep venous thrombosis Degenerative joint disease involving multiple joints Depression Gastroesophageal reflux disease Heart failure with preserved ejection fraction Hiatal hernia Hyperlipidemia Hypertension Hypothyroidism Irritable bowel syndrome Obstructive sleep apnea Noncompliant with CPAP. Paroxysmal atrial fibrillation Peptic ulcer Peripheral neuropathy Pneumonia Rheumatoid arthritis Seasonal allergies Type 2 diabetes mellitus without complications Diet-controlled. Hemoglobin A1c was 5.7% on 01/24/2021. Surgical History Surgical History History of appendectomy History of arthroscopy of both shoulders History of cardiac catheterization Angioplasty of a diagonal stenosis 01/2018. Cardiac catheterization 06/2019 showed patent coronary arteries. History of carpal tunnel release History of cataract extraction History of cholecystectomy History of foot surgery History of hysterectomy His
[2023-08-17] MEDS: ATORVASTATIN 40 MG TABLET PO (20:35)
[2023-08-18] VITALS (15 sets, daily range): BP systolic 130–176; BP diastolic 61–64; PULSE 61–86; RESP 18–22; TEMP 36.2–36.8; O2SAT 98–100
[2023-08-18] MEDS: oxyCODONE/ACETAMINOPHEN (*CRX) 10-325 MG TABLET 1 TAB PO ×2 (05:36→12:18)
[2023-08-18] MEDS: LEVOTHYROXINE SODIUM 88 MCG TABLET PO (05:37)
[2023-08-18 05:52] LABS: Basophils Absolute Auto 0.1 K/mm3 (0.0-0.1); Basophils Percent Auto 0.4 % (0.2-1.2); Eosinophils Absolute Auto 0.1 K/mm3 (0-0.3); Eosinophils Percent Auto 0.4 % (0-4.4); Hematocrit 34.1 % (37.0-47.0); Hemoglobin 11.2 g/dL (12.0-15.0); Immature Granulocyte Absolute 0.44 K/mm3 (0.00-0.031); Immature Granulocyte Percent A 2.4 % (0-0.5); Lymphocytes Absolute Auto 6.61 K/mm3 (0.9-3.2); Lymphocytes Percent Auto 35.6 % (18.3-44.2); Mean Corpuscular HGB Conc 32.8 g/dl (32-36); Mean Corpuscular Hemoglobin 27.9 pg (26-34); Mean Corpuscular Volume 84.8 fl (80-100); Mean Platelet Volume 9.5 fl (7.4-10.4); Monocytes Percent Auto 5.4 % (2.6-8.5); Neutrophils Absolute Auto 10.4 K/mm3 (1.3-6.7); Neutrophils Percent Auto 55.8 % (45.5-73.1); Nucleated Red Blood Cells Perc 0.1 % (0.0-0.2); Platelet Count Result 311 k/mm3 (150-375); Red Blood Count 4.02 M/mm3 (4.2-5.4); Red Cell Distribution Width 12.9 % (11.5-14.5); White Blood Count 18.6 K/mm3 (4.5-10.0)
[2023-08-18 05:55] LABS: Alanine Aminotransferase 19 U/L (6-35); Albumin Level 3.7 g/dL (3.5-5.1); Alkaline Phosphatase 86 U/L (38-126); Anion Gap 10 mmol/L (8-16); Aspartate Amino Transferase 20 U/L (14-36); Blood Urea Nitrogen 22 mg/dL (7-17); Calcium 8.8 mg/dL (8.4-10.2); Carbon Dioxide 25 mmol/L (22-30); Chloride 86 mmol/L (98-107); Estimated Glomerular Filt Rate > 60; Glucose 110 mg/dL (65-110); Potassium 3.9 mmol/L (3.4-5.0); Sodium 121 mmol/L (137-145)
[2023-08-18 06:53] LABS: Hypochromasia 1+ (NORMAL); Platelet Estimate Adequate (Adequate)
[2023-08-18 06:54] LABS: Anisocytosis 1+ (NORMAL); Schistocytes None Seen (NORMAL); Smudge Cells PRESENT
[2023-08-18] MEDS: FLUTICASONE/SALMETEROL 115-21 MCG INHALER 1 PUFF 2 PUFF INHALATION (07:15)
--- NOTE | 2023-08-18 09:11 | WPDGIPROGNO ---
Progress Note: A&P Assessment and Plan (1) Heartburn: Code(s): R12 - Heartburn Status: Acute Assessment and Plan: Patient reports intermittent heartburn. This appears to be breakthrough from her chronic GE reflux disease. Plan to continue Prilosec or Nexium on a b.i.d. dose basis. When she has breakthrough heartburn I have advised her to take Mylanta or similar antacids. If this fails to alleviate symptoms elective outpatient EGD could be considered. Patient should follow-up with primary care service and see the GI office electively if this persists long-term. (2) Hiatal hernia: Code(s): K44.9 - Diaphragmatic hernia without obstruction or gangrene Status: Acute (3) Gastroesophageal reflux disease: Qualifiers: Esophagitis presence: esophagitis presence not specified Qualified Code(s): K21.9 - Gastro-esophageal reflux disease without esophagitis Code(s): K21.9 - Gastro-esophageal reflux disease without esophagitis Status: Acute (4) Coronary artery disease: Qualifiers: Coronary Disease-Associated Artery/Lesion type: [place] artery [place] vs. transplanted heart: [place] heart Associated angina: without angina Qualified Code(s): I25.10 - Atherosclerotic heart disease of [place] coronary artery without angina pectoris Code(s): I25.10 - Atherosclerotic heart disease of [place] coronary artery without angina pectoris Status: Acute (5) Paroxysmal A-fib: Code(s): I48.0 - Paroxysmal atrial fibrillation Status: Acute Subjective Date/time seen: 08/18/23 09:11 Interval history: Patient alert comfortable this morning. Reports no further heartburn. Review of Systems Review of Systems: Review of systems noncontributory. Exam Narrative: Physical exam reveals patient to be alert. Vital signs stable. HEENT exam is unremarkable. Patient is anicteric. Lungs are clear. Heart without murmur. Abdomen benign. Objective Data Vital Signs Vital Signs: Vital Signs - 24 hr 08/17/23 10:00 08/17/23 10:26 08/17/23 12:30 Temperature Pulse Rate 68 75 Respiratory Rate Blood Pressure Pulse Oximetry 97 Oxygen Delivery Room Air 08/17/23 12:30 08/17/23 12:00 08/17/23 16:00 Temperature 97.3 F L 97.1 F L Pulse Rate 68 63 Respiratory Rate 18 20 Blood Pressure 153/49 H 142/78 H Pulse Oximetry 100 100 99 Oxygen Delivery Room Air 08/17/23 17:45 08/17/23 14:00 08/17/23 16:00 Temperature Pulse Rate 68 66 60 Respiratory Rate Blood Pressure Pulse Oximetry Oxygen Delivery 08/17/23 16:00 08/17/23 18:00 08/17/23 21:00 Temperature 97.5 F L Pulse Rate 65 61 Respiratory Rate 20 Blood Pressure 166/64 H Pulse Oximetry 99 Oxygen Delivery Room Air 08/17/23 21:25 08/17/23 20:00 08/17/23 22:00 Temperature Pulse Rate 66 72 Respiratory Rate Blood Pressure Pulse Oximetry 99 Oxygen Delivery Room Air 08/17/23 23:27 08/18/23 00:00 08/18/23 02:00 Temperature 97.8 F Pulse Rate 66 64 68 Respiratory Rate 20 Blood Pressure 154/62 H Pulse Oximetry 98 Oxygen Delivery 08/18/23 04:24 08/18/23 04:00 08/18/23 06:00 Temperature 97.7 F Pulse Rate 63 70 63 Respiratory Rate 20 Blood Pressure 176/64 H Pulse Oximetry 98 Oxygen Delivery 08/18/23 07:27 08/18/23 08:15 08/18/23 08:15 Temperature 97.2 F L Pulse Rate 61 65 65 Respiratory Rate 20 18 18 Blood Pressure 151/61 H Pulse Oximetry 100 99 Oxygen Delivery Room Air Intake/Output Intake/Output: Intake & Output 08/15/23 08/16/23 08/17/23 08/18/23 23:59 23:59 23:59 23:59 Intake Total 2600 1989 2019 240 Output Total 3500 2100 3000 1700 Balance -900 -110 -980 -1460 Meds/Results Medications: Active Medications Generic Name Dose Route Start Last Admin Trade Name Freq PRN Reason Stop Dose Admin Albuterol 2 puff 08/14/23 12:11 Albuterol Sulfate (*Sp) Ae
--- NOTE | 2023-08-18 09:20 | PM.DS ---
DS: Admitting Diagnosis Discharge Date 08/18/23 Admitting Diagnosis chest pain DS: Discharge Diagnosis Discharge Diagnosis (1) Atrial fibrillation with rapid ventricular response: Code(s): I48.91 - Unspecified atrial fibrillation Status: Acute Assessment and Plan: On diltiazem drip, uncontrolled, drip recently increased Cardiology recommending continued anticoagulation with Eliquis, increasing home diltiazem to 240 mg and stopping the drip 08/15 Monitor telemetry 08/16: amiodarone bolus + drip initiated afternoon 08/15 12: cont oral amio, 400 mg BID x 1 week, 400 mg daily x 1 week, then 200 mg daily (2) Chest pain: Code(s): R07.9 - Chest pain, unspecified Status: Acute Assessment and Plan: Trend troponin, monitor telemetry Cardiology consult appreciated, no further workup necessary 08/16: severe heartburn, check ECG + troponin, tums + PPI, consider GI consult if continues 08/17: heartburn continues, GI consult placed (3) Coronary artery disease: Qualifiers: Associated angina: without angina Coronary Disease-Associated Artery/Lesion type: [place] artery [place] vs. transplanted heart: [place] heart Qualified Code(s): I25.10 - Atherosclerotic heart disease of [place] coronary artery without angina pectoris Code(s): I25.10 - Atherosclerotic heart disease of [place] coronary artery without angina pectoris Status: Acute (4) Hypertension: Qualifiers: Hypertension type: unspecified Qualified Code(s): I10 - Essential (primary) hypertension Code(s): I10 - Essential (primary) hypertension Status: Chronic Assessment and Plan: Blood pressures reviewed 08/17 (5) Gastroesophageal reflux disease: Qualifiers: Esophagitis presence: esophagitis presence not specified Qualified Code(s): K21.9 - Gastro-esophageal reflux disease without esophagitis Code(s): K21.9 - Gastro-esophageal reflux disease without esophagitis Status: Acute Assessment and Plan: tums + PPI Plan DVT prophylaxis with Eliquis GI prophylaxis with PPI Code status full code DS: Summary Hospital Course Hospital Course: 78-year-old female with history of atrial fibrillation, heart disease, hyperlipidemia, hypothyroidism among other comorbidities is presenting with chest pain. No overnight events noted.? No shortness of breath.? No nausea, vomiting or diarrhea.? No fevers or chills. She is complaining of severe heartburn. 08/17: heartburn continues despite PPI BID and tums q6h.? Patient states he has a history of a ?bad? hiatal hernia is requesting to see GI.? No other complaints. On diltiazem drip, uncontrolled, drip recently increased Cardiology recommending continued anticoagulation with Eliquis, increasing home diltiazem to 240 mg and stopping the drip 08/15 Monitor telemetry 08/16: amiodarone bolus + drip initiated afternoon 08/15 08/17: cont oral amio, 400 mg BID x 1 week, 400 mg daily x 1 week, then 200 mg daily Please see above and med rec for details. Patient was discharged in stable condition with close outpatient follow-up. Time Spent with Patient Time attestation: Total time spent providing and/or coordinating discharge services: Exam Narrative: General: No acute distress, alert and oriented per baseline HEENT: Atraumatic, normocephalic, mucous membranes moist CV: Regular rate and rhythm, S1, S2 Lungs: Clear to auscultation bilaterally, no rales or crackles noted, no wheezes, good air entry Abdomen: Soft, nontender, nondistended Extremities: Normal to inspection Skin: No rashes noted, no lesions or wounds seen Psych: Euthymic, normal affect DS: Data Data Completed and Pending Labs on day of discharge: Labs from last 24 hours 08/18/23 08/17/23 04:50 08:57 WBC 18.6 H 19.4 H RBC 4.02 L 4.28 Hgb 11.2 L 11.9 L Hct 34.1 L 36.6 L MCV 84.8 85.5 MCH 27.9 27.8 MCHC 32.8 32.5 RDW
[2023-08-18] MEDS: APIXABAN 5 MG TABLET PO (10:02)
[2023-08-18] MEDS: ASPIRIN 81 MG ENTERIC TABLET PO (10:03)
[2023-08-18] MEDS: LINACLOTIDE 145 MCG CAPSULE PO (10:03)
[2023-08-18] MEDS: FUROSEMIDE 20 MG TABLET PO (10:03)
[2023-08-18] MEDS: MAGNESIUM OXIDE 400 MG TABLET PO (10:03)
[2023-08-18] MEDS: LORATADINE 10 MG TABLET PO (10:03)
[2023-08-18] MEDS: EZETIMIBE 10 MG TABLET PO (10:03)
[2023-08-18] MEDS: FOLIC ACID 1 MG TABLET 3 MG PO (10:03)
[2023-08-18] MEDS: CYANOCOBALAMIN 1,000 MCG TABLET 1000 MCG PO (10:03)
[2023-08-18] MEDS: predniSONE 10 MG TABLET PO (10:04)
[2023-08-18] MEDS: PANTOPRAZOLE 40 MG TABLET PO (10:04)
[2023-08-18] MEDS: NEBIVOLOL HCL 5 MG TABLET PO (10:04)
[2023-08-18] MEDS: SODIUM CHLORIDE 1 GM TABLET PO ×2 (10:04→16:05)
[2023-08-18] MEDS: MONTELUKAST SODIUM 10 MG TABLET PO (10:04)
[2023-08-18] MEDS: VALSARTAN 160 MG TABLET 320 MG PO (10:05)
[2023-08-18] MEDS: AMIODARONE HCL 200 MG TABLET 400 MG PO ×2 (10:10→16:05)
== END 2023-08-18 16:34 | disposition home or self-care (01) | DRG 281 ==
LOC: ANHED 04:09 → ANHIMU 05:56
PROVIDERS: Internal Medicine Cardiovascular Disease; Admitting Provider Internal Medicine; Emergency Provider Emergency Medicine; PCP Family Medicine; Visit Provider Student in an Organized Health Care Education/Training Program
DX: I48.0 Paroxysmal atrial fibrillation (principal); I21.A1 Myocardial infarction type 2; E87.1 Hypo-osmolality and hyponatremia; I50.32 Chronic diastolic (congestive) heart failure; I11.0 Hypertensive heart disease with heart failure; I25.10 Atherosclerotic heart disease of native coronary artery without angina pectoris; K21.9 Gastro-esophageal reflux disease without esophagitis; J45.909 Unspecified asthma, uncomplicated; E78.5 Hyperlipidemia, unspecified; E03.9 Hypothyroidism, unspecified; E11.9 Type 2 diabetes mellitus without complications; M06.9 Rheumatoid arthritis, unspecified; K44.9 Diaphragmatic hernia without obstruction or gangrene; G47.33 Obstructive sleep apnea (adult) (pediatric); M19.90 Unspecified osteoarthritis, unspecified site; G89.4 Chronic pain syndrome; F32.A Depression, unspecified; F41.9 Anxiety disorder, unspecified; Z79.82 Long term (current) use of aspirin; Z79.891 Long term (current) use of opiate analgesic; Z86.718 Personal history of other venous thrombosis and embolism; Z79.01 Long term (current) use of anticoagulants
CPT/HCPCS: 36415; 71045; 80048; 80053; 81001; 83690; 83735; 83880; 84484; 85025; 85610; 85730; 93005; 94640; 95810; 96361; 96365; 96366; 96376; 99285; A9270; G0378; J0282; J2060; J3475; J7512

== ENCOUNTER 2023-09-11 08:18 | Inpatient (IN) | payer MEDICARE, BC, SELFPAY ==
[2023-09-11] VITALS (39 sets, daily range): BP systolic 122–192; BP diastolic 45–80; PULSE 57–77; RESP 12–20; TEMP 35.9–37.1; O2SAT 96–100
--- NOTE | ~2023-09-11 | MR_ITS ---
EXAMINATION: MR lumbar spine wo con DATE: 09/12/2023 13:00 INDICATION: Lower extremity weakness. Urinary retention. Back pain. TECHNIQUE: Magnetic resonance imaging (MRI) of the lumbar spine was performed without intravenous con trast. COMPARISON: CT lumbar spine 09/11/2023 FINDINGS: There is 4 mm retrolisthesis of L1 on L2 and 7 mm anterolisthesis of L4 on L5 and L5 on S1. Vertebral body heights are normal. There is severely decreased disc height at L1-L2, moderately decr eased disc height at L2-L3, mildly decreased disc height at L3-L4, and severely decreased disc height at L4-L5 and L5-S1. The distal spinal cord signal intensity is normal. The conus medullaris is at L2 . The following disc levels are specifically discussed: L1-L2: The disc is bulging. There is moderate right and mild left facet joint osteoarthritis. There i s mild bilateral neural foraminal stenosis. There is mild central canal stenosis. L2-L3: The disc is bulging. There is mild bilateral facet joint osteoarthritis. There is mild bilater al neural foraminal stenosis. There is mild central canal stenosis. L3-L4: The disc is bulging. There is severe bilateral facet joint osteoarthritis. There is mild bilat eral neural foraminal stenosis. There is mild central canal stenosis. L4-L5: The disc is bulging. There is severe bilateral facet joint osteoarthritis. There is mild right and moderate left neural foraminal stenosis. There is moderate central canal stenosis. L5-S1: The disc is bulging. There is severe bilateral facet joint osteoarthritis. There is mild bilat eral neural foraminal stenosis. There is mild central canal stenosis. IMPRESSION: 1. Severe lumbar spondylosis. Reviewed, dictated and finalized at location A. OFFICIAL
--- NOTE | ~2023-09-11 | CT_ITS ---
EXAMINATION: CT lumbar spine wo con DATE: 09/11/2023 16:21 INDICATION: low back pain . TECHNIQUE: Computed tomography (CT) of the lumbar spine was performed without intravenous contrast. A utomated exposure control and iterative reconstruction technique were employed. The dose-length produ ct was 0.00 mGy-cm. COMPARISON: 05/27/2022; CT abdomen and pelvis 09/11/2023. FINDINGS: Osteopenia. 5 nonrib-bearing lumbar-type vertebral bodies. Pedicles intact. Grade 1 anterol istheses of L4 on L5 and L5 on S1, otherwise intact vertebral body alignment. Vertebral body heights preserved. Multilevel severe degenerative disc disease. Lumbar scoliosis with a rotatory component. M ultilevel severe facet arthropathy. Severe central canal narrowing at L4-5. Multilevel severe bilater al neural foraminal narrowing. Moderate gastric wall edema as can be seen with gastritis. Simple live r and spleen cysts. IMPRESSION: No acute fracture or traumatic malalignment in the lumbar spine. Stable grade 1 anterolisthesis at L4-5 and L5-S1. Stable severe central canal narrowing at L4-5 and multilevel severe bilateral neural foraminal narrow ing, secondary to degenerative changes. Reviewed, dictated and finalized at location K. E CLOSER IMPRESSION: No acute fracture or traumatic malalignment in the lumbar spine. Stable grade 1 anterolisthesis at L4-5 and L5-S1. Stable severe central canal narrowing at L4-5 and multilevel severe bilateral n eural foraminal narrowing, secondary to degenerative changes.
--- NOTE | ~2023-09-11 | US_ITS ---
EXAMINATION: US abdomen limited DATE: 09/12/2023 10:24 INDICATION: Epigastric pain TECHNIQUE: Multiple grayscale and Doppler ultrasound images of the abdomen were obtained. COMPARISON: CT from yesterday FINDINGS: Bowel gas obscures visualization of the pancreas. The visualized portions of the pancreas a re unremarkable. The liver is normal with normal echogenicity and echotexture. Liver masses described on yesterday's CT examination are not definitely identified due to patient condition. No surface nod ularity. Normal hepatopetal flow in the main portal vein. There are changes of cholecystectomy. The d ilated common bile duct measures 13 mm, likely due to post cholecystectomy state. IMPRESSION: 1. Dilated common bile duct which may be due to post cholecystectomy state. Reviewed, dictated and finalized at location B. GER OF RECRUITING
--- NOTE | ~2023-09-11 | CT_ITS ---
EXAMINATION: CT abdomen pelvis w con DATE: 09/11/2023 10:43 INDICATION: Mid abdominal pain TECHNIQUE: Computed tomography (CT) of the abdomen and pelvis was performed with 100 cc Omnipaque 350 intravenous contrast. The dose-length product was 467.15 mGy-cm. Automated exposure control and iter ative reconstruction technique were employed. COMPARISON: CT dated 04/10/2023. FINDINGS: Moderate size hiatal hernia. Lung bases are unremarkable. Heart size normal. No significant pleural or pericardial effusion. Status post cholecystectomy with expected prominence of the bile du cts. There are liver and splenic cysts. Fatty infiltration of the liver. There is atrophy of the panc reas. The adrenal glands are unremarkable. There is left renal cortical thinning. No significant hydr onephrosis. Nonobstructive bowel gas pattern. Mild bladder wall thickening anteriorly. Uterus is like ly surgically absent. There is severe lumbar spondylosis with grade 1 spondylolisthesis at L4-5 and L 5-S1. There is dextroscoliosis of the lumbar spine. There is mild osteoarthritis of the hips. No sign ificant vascular abnormality. No lymphadenopathy. IMPRESSION: 1. Mild bladder wall thickening anteriorly. Consider cystitis in the appropriate clinical setting 2: Moderate size hiatal hernia. Reviewed, dictated and finalized at location L. ASTRUCTURE ARCHITECT IMPRESSION: 1. Mild bladder wall thickening anteriorly. Consider cystitis in the appropriat e clinical setting 2: Moderate size hiatal hernia.
--- NOTE | 2023-09-11 09:36 | ED.GENADULT ---
HPI - General Adult General Chief complaint: Abdominal Pain Stated complaint: abd pain Time Seen by Provider: 09/11/23 09:00 History of Present Illness HPI narrative: 78-year-old female presenting to the emergency department for evaluation of mid abdominal pain. Patient reports she has been having some left flank pain but over the course for the last week she has been having worsening epigastric pain. Patient states the back pain flank pain is secondary to multiple compression fractures and degenerative disc disease. Patient has been on prednisone but states that she then began developing frontal abdominal pain. Patient states she has had some intermittent nausea without vomiting. Related Data Home Medications Medication Instructions Recorded Confirmed aspirin 81 mg tablet,delayed 81 mg PO DAILY 07/29/19 08/14/23 release (Adult Low Dose Aspirin) nitroglycerin 0.4 mg sublingual 0.4 mg sublingual Q5M PRN Chest 07/29/19 08/14/23 tablet Pain cetirizine 10 mg capsule 10 mg PO DAILY 03/15/23 08/14/23 ezetimibe 10 mg tablet 10 mg PO DAILY 03/15/23 08/14/23 folic acid 1 mg tablet 3 mg PO DAILY 03/15/23 08/14/23 albuterol sulfate 90 mcg/actuation 2 puff inhalation QID PRN 06/22/23 08/14/23 aerosol inhaler Shortness Of Breath Or Wheezing buspirone 10 mg tablet 10 mg PO BID PRN Anxiety 06/22/23 08/14/23 furosemide 40 mg tablet 20 mg PO DAILY 06/22/23 08/14/23 methotrexate sodium 2.5 mg tablet 2.5 mg PO WEEKLY 06/22/23 08/14/23 linaclotide 145 mcg capsule 145 mcg PO DAILY 08/14/23 08/14/23 (Linzess) prednisone 10 mg tablet 10 mg PO DAILY 08/14/23 08/14/23 Allergies Allergy/AdvReac Type Severity Reaction Status Date / Time No Known Allergies Allergy Verified 07/18/23 13:59 Review of Systems Review of Systems: All systems reviewed & are unremarkable except as noted in HPI and below PMFSH Past Medical History Medical History Anxiety Asthma Chronic anticoagulation Chronic hyponatremia Chronic pain syndrome Chronic, continuous use of opioids Coronary artery disease Angioplasty of a diagonal lesion in 01/2018. Cardiac catheterization 06/2019 showed patent coronary arteries. Deep venous thrombosis Degenerative joint disease involving multiple joints Depression Gastroesophageal reflux disease Heart failure with preserved ejection fraction Hiatal hernia Hyperlipidemia Hypertension Hypothyroidism Irritable bowel syndrome Obstructive sleep apnea Noncompliant with CPAP. Paroxysmal atrial fibrillation Peptic ulcer Peripheral neuropathy Pneumonia Rheumatoid arthritis Seasonal allergies Type 2 diabetes mellitus without complications Diet-controlled. Hemoglobin A1c was 5.7% on 01/24/2021. Surgical History Surgical History History of appendectomy History of arthroscopy of both shoulders History of cardiac catheterization Angioplasty of a diagonal stenosis 01/2018. Cardiac catheterization 06/2019 showed patent coronary arteries. History of carpal tunnel release History of cataract extraction History of cholecystectomy History of foot surgery History of hysterectomy History of phacoemulsification of cataract with intraocular lens implantation Family History Family History Grandparent Diabetes mellitus Father Acute myocardial infarction Diabetes mellitus Hypertension Mother Hypertension Diabetes mellitus Sibling Diabetes mellitus Hypertension Other Family history of cardiovascular disease Family history of malignant neoplasm of brain Social History Social History Social History: The patient lives in [place]. Her recently passed. 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 Lifelong nonsmoker. No alcohol or illicit substance abuse. Per patient, ILDEFONSO i
[2023-09-11] MEDS: ONDANSETRON INJ 4 MG/2 ML VIAL IV PUSH ×2 (09:49→20:07)
[2023-09-11] MEDS: MORPHINE SULFATE (*CRX) 2 MG/ML INJ IV PUSH ×5 (09:49→21:34)
[2023-09-11 09:54] LABS: Basophils Absolute Auto 0.1 K/mm3 (0.0-0.1); Basophils Percent Auto 0.4 % (0.2-1.2); Hematocrit 40.3 % (37.0-47.0); Immature Granulocyte Absolute 0.51 K/mm3 (0.00-0.031); Immature Granulocyte Percent A 2.2 % (0-0.5); Lymphocytes Percent Auto 26.3 % (18.3-44.2); Mean Corpuscular HGB Conc 32.3 g/dl (32-36); Mean Corpuscular Hemoglobin 27.4 pg (26-34); Mean Platelet Volume 9.5 fl (7.4-10.4); Monocytes Absolute Auto 0.5 K/mm3 (0.1-0.6); Monocytes Percent Auto 2.2 % (2.6-8.5); Neutrophils Percent Auto 68.9 % (45.5-73.1); Platelet Count Result 343 k/mm3 (150-375); Red Blood Count 4.74 M/mm3 (4.2-5.4); White Blood Count 23.2 K/mm3 (4.5-10.0)
[2023-09-11 10:05] LABS: INR 1.5; Partial Thromboplastin Time 28.5 SECONDS (22.3-36.8); Prothrombin Time 18.9 Seconds (11.1-14.7)
[2023-09-11 10:15] LABS: Alanine Aminotransferase 22 U/L (6-35); Albumin Level 4.2 g/dL (3.5-5.1); Alkaline Phosphatase 90 U/L (38-126); Anion Gap 13 mmol/L (8-16); Aspartate Amino Transferase 27 U/L (14-36); Bilirubin,Total 1.8 mg/dL (0.2-1.3); Blood Urea Nitrogen 53 mg/dL (7-17); Calcium 9.1 mg/dL (8.4-10.2); Carbon Dioxide 29 mmol/L (22-30); Chloride 83 mmol/L (98-107); Estimated Glomerular Filt Rate 36; Glucose 292 mg/dL (65-110); Lipase 82 U/L (23-300); Potassium 4.7 mmol/L (3.4-5.0); Sodium 125 mmol/L (137-145)
[2023-09-11 10:16] LABS: Lactic Acid Reflex 2.4 mmol/L (0.7-2.0)
[2023-09-11 10:32] LABS: Appearance Urine Clear (Clear); Bilirubin Urine Negative (Negative); Blood Urine Negative (Negative); Color Urine Yellow (Yellow); Glucose Urine UA Trace mg/dL (Negative); Ketones Urine Negative (Negative); Leukocyte Esterase Ur Negative LEU/UL (Negative); Nitrate Urine Negative (Negative); Protein Urine Negative (Negative); Specific Grav Ur 1.009 (1.001-1.035); Urobilinogen Urine 0.2 mg/dL (<2.0)
[2023-09-11 10:32] LABS: Influenza A QL RT-PCR Negative (Negative); Influenza B QL RT-PCR Negative (Negative); RSV RNA, RT-PCR Negative (Negative); SARS-CoV-2 RNA PCR Negative (Negative)
[2023-09-11 10:42] LABS: Add Urine Microscopic? NO
[2023-09-11] MEDS: SODIUM CHLORIDE 0.9% IV 1,000 ML 999 ML IV CONT (12:03)
[2023-09-11] MEDS: HYDROcodone/acetaminophen (*CRX) 5-325 MG TABLET 1 TAB PO (12:42)
[2023-09-11 12:51] LABS: Reflex Lactic Acid Yes or No Add Lactic
[2023-09-11] MEDS: LACTATED RINGERS 1,000 ML 100 ML IV CONT (13:18)
[2023-09-11 13:51] LABS: Lactic Acid 1.9 mmol/L (0.7-2.0)
--- NOTE | 2023-09-11 16:06 | PM.IMHP ---
H&P: HPI History of Present Illness Date/Time: 09/11/23 16:06 Chief Complaint: Abdominal Pain, Low Back Pain Narrative: 78 y/o F presents here with abdominal pain, poor appetite, and low back pain with PMH of Afib, heart disease, HLD, hypothyroidism, RA, and osteoarthritis of her lower back. Patient reports epigastric abdominal pain for the past 2 weeks that has been constant and occasionally worsens with eating. Recnetly developed reduction in p.o. intake In the last 4 days. Has only been able to tolerate a few bites of food with her medications due to discomfort more so than nausea or vomiting. No current nausea or vomiting. Pain has been mostly epigastric with some radiation to her right and left upper quadrants. Mild presyncope feeling when pain becomes severe. Currently denies any urinary frequency, changes in total urine output, or dysuria. Endorses urinary hesitancy for the past year, states she will urinate and then will have to wait for few minutes before she can restart her stream. will typically have to restart a stream a 2nd time, occasionally a 3rd time. no recent falls, numbness or tingling to her lower extremities. Some neuropathy to her feet and ankles. Recent increase in low back pain that is chronic, started on steroids With subsequent reduction in mobility and has been using her scooter for the past 2 days. she historically only needs her scooter when she is out at the [place], outside, or has to walk long distances. Review of Systems Review of Systems: All systems reviewed & are unremarkable except as noted in HPI and below PMFSH Past Medical History Medical History Anxiety Asthma Chronic anticoagulation Chronic hyponatremia Chronic pain syndrome Chronic, continuous use of opioids Coronary artery disease Angioplasty of a diagonal lesion in 01/2018. Cardiac catheterization 06/2019 showed patent coronary arteries. Deep venous thrombosis Degenerative joint disease involving multiple joints Depression Gastroesophageal reflux disease Heart failure with preserved ejection fraction Hiatal hernia Hyperlipidemia Hypertension Hypothyroidism Irritable bowel syndrome Obstructive sleep apnea Noncompliant with CPAP. Paroxysmal atrial fibrillation Peptic ulcer Peripheral neuropathy Pneumonia Rheumatoid arthritis Seasonal allergies Type 2 diabetes mellitus without complications Diet-controlled. Hemoglobin A1c was 5.7% on 01/24/2021. Surgical History Surgical History History of appendectomy History of arthroscopy of both shoulders History of cardiac catheterization Angioplasty of a diagonal stenosis 01/2018. Cardiac catheterization 06/2019 showed patent coronary arteries. History of carpal tunnel release History of cataract extraction History of cholecystectomy History of foot surgery History of hysterectomy History of phacoemulsification of cataract with intraocular lens implantation Family History Family History Grandparent Diabetes mellitus Father Acute myocardial infarction Diabetes mellitus Hypertension Mother Hypertension Diabetes mellitus Sibling Diabetes mellitus Hypertension Other Family history of cardiovascular disease Family history of malignant neoplasm of brain Social History Social History Social History: The patient lives in [place]. Her recently passed. 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 Lifelong nonsmoker. No alcohol or illicit substance abuse. Per patient, POA is Wild Price, friend. Caffeine-soda Smoking status: Never smoker Alcohol intake: never Substance use: never Substance use type: does not use Other substance usage details: Medical marijuana occassionally - 1 every 6 months Do You
--- NOTE | 2023-09-11 17:00 | PC.NURSE ---
Dinner tray ordered for pt
--- NOTE | 2023-09-11 17:02 | PC.NURSE ---
Called and requested tray to be sent to room 314.
--- NOTE | 2023-09-11 17:43 | ADMGEN ---
This patient, Aracely Spear, was admitted to [address] [place] [address] Room 314-01. Patient/family oriented to hospital policies and general routines including ID bracelet, bed and alarms, visiting hours, pain management, procedures, bathroom and other care routines, personal items, smoking policy, room service/diet, and visiting hours. Information on how to activate the Rapid Response Team has been discussed. Patient/Family are encouraged to report perceived risks to care and to ask questions if they do not understand what they are told or what they should do.
[2023-09-11 21:59] LABS: Creatine Kinase < 20 U/L (30-135)
[2023-09-12] MEDS: MORPHINE SULFATE (*CRX) 2 MG/ML INJ IV PUSH ×3 (03:15→13:42)
[2023-09-12] MEDS: LINACLOTIDE 145 MCG CAPSULE PO (05:19)
[2023-09-12] MEDS: LEVOTHYROXINE SODIUM 88 MCG TABLET PO (05:19)
[2023-09-12 06:00] VITALS: BP 133/66; PULSE 63; RESP 18; TEMP 36.8; O2SAT 98
[2023-09-12 06:51] LABS: Basophils Absolute Auto 0.1 K/mm3 (0.0-0.1); Basophils Percent Auto 0.3 % (0.2-1.2); Eosinophils Absolute Auto 0.1 K/mm3 (0-0.3); Eosinophils Percent Auto 0.7 % (0-4.4); Hematocrit 34.2 % (37.0-47.0); Hemoglobin 10.7 g/dL (12.0-15.0); Immature Granulocyte Absolute 0.42 K/mm3 (0.00-0.031); Immature Granulocyte Percent A 2.4 % (0-0.5); Lymphocytes Absolute Auto 6.03 K/mm3 (0.9-3.2); Lymphocytes Percent Auto 34.8 % (18.3-44.2); Mean Corpuscular HGB Conc 31.3 g/dl (32-36); Mean Corpuscular Hemoglobin 27.3 pg (26-34); Mean Corpuscular Volume 87.2 fl (80-100); Mean Platelet Volume 9.7 fl (7.4-10.4); Monocytes Percent Auto 5.5 % (2.6-8.5); Neutrophils Absolute Auto 9.7 K/mm3 (1.3-6.7); Neutrophils Percent Auto 56.3 % (45.5-73.1); Platelet Count Result 300 k/mm3 (150-375); Red Blood Count 3.92 M/mm3 (4.2-5.4); Red Cell Distribution Width 14.3 % (11.5-14.5); White Blood Count 17.3 K/mm3 (4.5-10.0)
[2023-09-12 07:21] LABS: Alanine Aminotransferase 15 U/L (6-35); Albumin Level 3.1 g/dL (3.5-5.1); Alkaline Phosphatase 60 U/L (38-126); Anion Gap 6 mmol/L (8-16); Aspartate Amino Transferase 20 U/L (14-36); Bilirubin,Total 1.2 mg/dL (0.2-1.3); Blood Urea Nitrogen 31 mg/dL (7-17); Calcium 8.4 mg/dL (8.4-10.2); Carbon Dioxide 27 mmol/L (22-30); Chloride 93 mmol/L (98-107); Estimated Glomerular Filt Rate 53; Glucose 113 mg/dL (65-110); Potassium 4.2 mmol/L (3.4-5.0); Sodium 126 mmol/L (137-145)
--- NOTE | 2023-09-12 07:47 | PM.IMPN ---
Progress Note: A&P Assessment and Plan (1) Abdominal pain: Qualifiers: Abdominal location: periumbilical Qualified Code(s): R10.33 - Periumbilical pain Code(s): R10.9 - Unspecified abdominal pain Status: Acute Assessment and Plan: Pt presented with epigastric pain with n/v -CT revealed possible cysistitis and urinary retention. rockwell now in place. No improvement with epigastric pain with this -pt has a hx of cholecystectomy but significant pain to palpation. Will order u/s to assess ducts and pancreas. ddx gastritis, retained stone (bili normal so somewhat less likely), etc. will need f/u with GI outpt -lactic acid was elevated but has now normalized. Likely due to dehydration 2/2 reduced oral intake. Pt was on prednisone with elevated WBC. No infx suspected, but will monitor blood cultures -pt had 400ml post void residual and rockwell was placed by previous provider. Urology consulted. Not sure the 400ml was causing her epigastric pain especially now that rockwell is in with no releaf -Lipase and liver fx wnl -Continue protonix (2) Acute urinary retention: Code(s): R33.8 - Other retention of urine Status: Acute Assessment and Plan: Acute on chronic-reports difficulty emptying bladder completely for the past year - restart of stream 2-3 times. -hx of chronic low back and osteoarthritis. CT with severe canal stenosis. No focal weakness or numbness, no saddle paraesthesias. reports some new neuropathy effecting her feet/calves x2-3 days. -cauda equina less likely but will obtain MRI due to new symptoms -UA without evidence of infx (3) ANASTACIA (acute kidney injury): Code(s): N17.9 - Acute kidney failure, unspecified Status: Acute Assessment and Plan: Improving with IVF (4) Chronic pain syndrome: Code(s): G89.4 - Chronic pain syndrome Status: Acute Assessment and Plan: hx of RA and OA (particularly of the lumbar spine). Currently on prednisone for inflammation, continue. CT of lumbar spine - no acute fracture or traumatic malalignment in the lumbar spine, stable grade 1 anterolisthesis at L4-L5 and L5-S1, stable severe central canal narrowing at L4-L5 in multi levels severe bilateral neural foraminal narrowing secondary to degenerative changes. (5) Hyponatremia: Code(s): E87.1 - Hypo-osmolality and hyponatremia Status: Acute Assessment and Plan: slightly im proved. Chronic since 2006 ranging from 121-133 -previously 121 on 08/18/23. on salt tabs, continue home dose. -Is on lasix at home - Has been previously worked up for this, most recent nephrology note in 2020. at that time cortisol was low but stimulation test was normal, TSH acceptable, and goal of 130. most likely cause is chronic opioid use. continue to trend sodium levels. Plan Home Meds/Chronic Conditions - AFib: Continue amiodarone and Eliquis. also on ASA. - HLD: Continue home statin and ezetimibe - Mood disorder: continue buspirone - OTC/ supplements: Continue cetirizine, vitamin-D, vitamin B12, folic acid, magnesium, sodium tabs - HTN: Continue home valsartan, Bystolic. monitor. - HF: Hold Lasix. - Hypothyroidism: Continue levothyroxine, TSH WNL -on MTX, no infx suspected - Chronic constipation related to opiate use: Continue Linzess - asthma: Continue singular, Advair, and albuterol DVT Prophylaxis: SCDs, continue home Eliquis Time Spent With Patient Time with patient: 25 - 35 minutes Subjective Date/time seen: 09/12/23 07:47 Interval history: Pt is a 78-year-old female here epigastric pain and urinary retention. Patient states that she continues to have epigastric pain that causes nausea and makes her afraid to eat. She has not eaten yet today but is going to try. She had a bowel movement 2 days ago and is passing gas. She states she had her gallbladder out in past. She has acute on chronic back pain. She says when the wea
[2023-09-12] MEDS: FLUTICASONE/SALMETEROL 115-21 MCG INHALER 1 PUFF 2 PUFF INHALATION (07:51)
--- NOTE | 2023-09-12 08:18 | WPDURCON ---
Assessment and Plan Assessment and plan (1) Acute urinary retention: Code(s): R33.8 - Other retention of urine Status: Acute Assessment and Plan: Etiology of mild retention is unclear at this time. Agree with Toro catheter. Some of this may be attributed to her back issues. That is currently being evaluated. Cultures are pending at this time. Would recommend Toro catheter for a couple of days then a voiding trial with postvoid residual checks. Elevated creatinine may be secondary to dehydration and/or this retention. Continue to follow. Urology Consult Note HPI Date Seen: 09/12/23 Time Seen: 08:18 Requesting Physician: Radhika Nolan PA-C Primary Care Provider: Neli Moura, Consult Narrative Reason for consult: urinary retention Narrative: Aracely Spear is a 78 year old female who was admitted with a lot of nonspecific complaints including abdominal pain low back pain and some difficulty with emptying her bladder. Patient denies any dysuria gross hematuria. Has nocturia times 2-3 and voids frequently but is on a diuretic. CT scan revealed normal upper tracts. Bladder had some thickened bladder wall anteriorly. Toro catheter was placed with 400 cc residual. She denies any prior bladder surgeries were prior instances of retention. Her main complaint is her back pain at this time. Review of Systems Review of Systems: All systems reviewed & are unremarkable except as noted in HPI and below PMFSH Past Medical History Medical History Anxiety Asthma Chronic anticoagulation Chronic hyponatremia Chronic pain syndrome Chronic, continuous use of opioids Coronary artery disease Angioplasty of a diagonal lesion in 01/2018. Cardiac catheterization 06/2019 showed patent coronary arteries. Deep venous thrombosis Degenerative joint disease involving multiple joints Depression Gastroesophageal reflux disease Heart failure with preserved ejection fraction Hiatal hernia Hyperlipidemia Hypertension Hypothyroidism Irritable bowel syndrome Obstructive sleep apnea Noncompliant with CPAP. Paroxysmal atrial fibrillation Peptic ulcer Peripheral neuropathy Pneumonia Rheumatoid arthritis Seasonal allergies Type 2 diabetes mellitus without complications Diet-controlled. Hemoglobin A1c was 5.7% on 01/24/2021. Surgical History Surgical History History of appendectomy History of arthroscopy of both shoulders History of cardiac catheterization Angioplasty of a diagonal stenosis 01/2018. Cardiac catheterization 06/2019 showed patent coronary arteries. History of carpal tunnel release History of cataract extraction History of cholecystectomy History of foot surgery History of hysterectomy History of phacoemulsification of cataract with intraocular lens implantation Family History Family History Grandparent Diabetes mellitus Father Acute myocardial infarction Diabetes mellitus Hypertension Mother Hypertension Diabetes mellitus Sibling Diabetes mellitus Hypertension Other Family history of cardiovascular disease Family history of malignant neoplasm of brain Social History Social History Social History: The patient lives in [place]. Her recently passed. 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 Lifelong nonsmoker. No alcohol or illicit substance abuse. Per patient, POA is Wild Price, friend. Caffeine-soda Smoking status: Never smoker Alcohol intake: never Substance use: never Substance use type: does not use Other substance usage details: Medical marijuana occassionally - 1 every 6 months Do You Feel Safe in your Home?: Yes Lack of Transportation: YES Lack of Food: Never True Curre
[2023-09-12] MEDS: oxyCODONE/ACETAMINOPHEN (*CRX) 10-325 MG TABLET 1 TAB PO ×3 (08:20→20:09)
[2023-09-12] MEDS: FOLIC ACID 1 MG TABLET 3 MG PO (08:20)
[2023-09-12] MEDS: MAGNESIUM OXIDE 400 MG TABLET PO (08:20)
[2023-09-12] MEDS: MECLIZINE HCL 25 MG TABLET PO (08:20)
[2023-09-12] MEDS: ASPIRIN 81 MG ENTERIC TABLET PO (08:21)
[2023-09-12] MEDS: MONTELUKAST SODIUM 10 MG TABLET PO (08:21)
[2023-09-12] MEDS: VALSARTAN 160 MG TABLET 320 MG PO (08:21)
[2023-09-12] MEDS: LORATADINE 10 MG TABLET PO (08:21)
[2023-09-12] MEDS: PANTOPRAZOLE 40 MG TABLET PO ×2 (08:21→20:09)
[2023-09-12 08:22] VITALS: PULSE 77
[2023-09-12] MEDS: CYANOCOBALAMIN 1,000 MCG TABLET 1000 MCG PO (08:22)
[2023-09-12] MEDS: NEBIVOLOL HCL 5 MG TABLET PO (08:22)
[2023-09-12] MEDS: predniSONE 10 MG TABLET PO (08:22)
[2023-09-12] MEDS: SODIUM CHLORIDE 1 GM TABLET PO ×2 (08:22→16:52)
[2023-09-12] MEDS: APIXABAN 5 MG TABLET PO ×2 (08:22→20:09)
[2023-09-12] MEDS: busPIRone HCL 10 MG TABLET PO (08:22)
[2023-09-12 08:23] VITALS: PULSE 77
[2023-09-12] MEDS: AMIODARONE HCL 200 MG TABLET PO (08:23)
[2023-09-12] MEDS: EZETIMIBE 10 MG TABLET PO (08:23)
[2023-09-12 12:37] VITALS: BMI 29.2
[2023-09-12 13:56] VITALS: BP 178/62; PULSE 73; RESP 18; TEMP 36.3; O2SAT 100
[2023-09-12 14:00] VITALS: BP 130/64; PULSE 73; RESP 18; TEMP 36.3; O2SAT 100
--- NOTE | 2023-09-12 15:26 | PCOTNOTE ---
Attempted OT eval at 15:26, patient refused. Patient reports she is in too much pain and is too tired from her MRI. The benefits were explained to patient regarding therapy and patient continued to decline. Will follow.
--- NOTE | 2023-09-12 15:42 | PCPTNOTE ---
Attempted PT evaluation, pt refused due to pain. Will follow.
[2023-09-12] MEDS: ATORVASTATIN 40 MG TABLET PO (20:09)
[2023-09-12 21:46] VITALS: BP 114/65; PULSE 64; RESP 18; TEMP 37; O2SAT 99
[2023-09-13] VITALS (7 sets, daily range): BP systolic 101–168; BP diastolic 45–65; PULSE 64–83; RESP 10–20; TEMP 36.5–37; O2SAT 100
[2023-09-13] MEDS: oxyCODONE/ACETAMINOPHEN (*CRX) 10-325 MG TABLET 1 TAB PO ×4 (02:06→20:01)
[2023-09-13] MEDS: LINACLOTIDE 145 MCG CAPSULE PO (05:53)
[2023-09-13] MEDS: LEVOTHYROXINE SODIUM 88 MCG TABLET PO (05:53)
[2023-09-13 06:27] LABS: Hematocrit 33.2 % (37.0-47.0); Hemoglobin 10.3 g/dL (12.0-15.0); Mean Corpuscular Hemoglobin 27.4 pg (26-34); Mean Corpuscular Volume 88.3 fl (80-100); Mean Platelet Volume 9.9 fl (7.4-10.4); Platelet Count Result 285 k/mm3 (150-375); Red Blood Count 3.76 M/mm3 (4.2-5.4); Red Cell Distribution Width 14.3 % (11.5-14.5); White Blood Count 15.2 K/mm3 (4.5-10.0)
[2023-09-13 06:42] LABS: Alanine Aminotransferase 17 U/L (6-35); Albumin Level 3.2 g/dL (3.5-5.1); Alkaline Phosphatase 66 U/L (38-126); Anion Gap 6 mmol/L (8-16); Aspartate Amino Transferase 19 U/L (14-36); Bilirubin,Total 0.9 mg/dL (0.2-1.3); Blood Urea Nitrogen 24 mg/dL (7-17); Calcium 8.3 mg/dL (8.4-10.2); Carbon Dioxide 27 mmol/L (22-30); Chloride 94 mmol/L (98-107); Estimated Glomerular Filt Rate 60; Glucose 137 mg/dL (65-110); Lipase 55 U/L (23-300); Potassium 4.6 mmol/L (3.4-5.0); Sodium 127 mmol/L (137-145)
[2023-09-13] MEDS: busPIRone HCL 10 MG TABLET PO (08:27)
[2023-09-13] MEDS: EZETIMIBE 10 MG TABLET PO (08:27)
[2023-09-13] MEDS: APIXABAN 5 MG TABLET PO ×2 (08:27→20:01)
[2023-09-13] MEDS: AMIODARONE HCL 200 MG TABLET PO (08:27)
[2023-09-13] MEDS: MAGNESIUM OXIDE 400 MG TABLET PO (08:27)
[2023-09-13] MEDS: CYANOCOBALAMIN 1,000 MCG TABLET 1000 MCG PO (08:27)
[2023-09-13] MEDS: ASPIRIN 81 MG ENTERIC TABLET PO (08:28)
[2023-09-13] MEDS: FOLIC ACID 1 MG TABLET 3 MG PO (08:28)
[2023-09-13] MEDS: MONTELUKAST SODIUM 10 MG TABLET PO (08:28)
[2023-09-13] MEDS: VALSARTAN 160 MG TABLET 320 MG PO (08:28)
[2023-09-13] MEDS: predniSONE 10 MG TABLET PO (08:28)
[2023-09-13] MEDS: PANTOPRAZOLE 40 MG TABLET PO ×2 (08:28→20:01)
[2023-09-13] MEDS: SODIUM CHLORIDE 1 GM TABLET PO ×2 (08:28→17:13)
[2023-09-13] MEDS: LORATADINE 10 MG TABLET PO (08:28)
[2023-09-13] MEDS: NEBIVOLOL HCL 5 MG TABLET PO (08:28)
[2023-09-13] MEDS: FLUTICASONE/SALMETEROL 115-21 MCG INHALER 1 PUFF 2 PUFF INHALATION ×2 (08:50→20:53)
--- NOTE | 2023-09-13 09:01 | PCPTNOTE ---
846 Patient working with OT and then is going to eat her breakfast. Will check on patient later.
--- NOTE | 2023-09-13 09:11 | PM.IMPN ---
Progress Note: A&P Assessment and Plan (1) Abdominal pain: Qualifiers: Abdominal location: periumbilical Qualified Code(s): R10.33 - Periumbilical pain Code(s): R10.9 - Unspecified abdominal pain Status: Acute Assessment and Plan: Pt presented with epigastric pain with n/v. - U/S of the abdomen, with cbd dilation of 13mm, felt to represent post cholecystectomy state. - CT abdomen no acute findings other than possible cystitis. - Recently started steroids, had kenalog injection in June - then just completed a steroid dosepak and a second dosepak was started. She states this was in the last few weeks. She has been on oral steroids for at least the last month, now on 10mg daily - I would hesitate to abruptly stop the oral steroids her history of low cortisol levels (but stim challenge normal). I suspect this is steroid induced gastropathy. She has seen GI within the last month, they noted that an outpatient EGD may be warranted. I believe this is a reasonable next step and can be completed outpatient, as the patient has stable hemoglobin and no signs of an UGIB. (2) Acute urinary retention: Code(s): R33.8 - Other retention of urine Status: Acute Assessment and Plan: Appreciate urology recommendations. - DC [facility] and obtain PVRs today. - Consider further inpatient/outpatient urology consultation if continues to retain. - If voiding spontaneously and no further acute needs from this standpoint, likely to discharge in the next 24 hours. (3) ANASTACIA (acute kidney injury): Code(s): N17.9 - Acute kidney failure, unspecified Status: Acute Assessment and Plan: - Creatinine normalized today, BUN remains elevated at 24mg/dl. - Continue to push oral. (4) Chronic pain syndrome: Code(s): G89.4 - Chronic pain syndrome Status: Acute Assessment and Plan: - Known RA/OA (patient reports lumbar spine significantly impacted). No acute findings on imaging this stay. Follows with pain management. - Cont. prednisone as per above. (5) Hyponatremia: Code(s): E87.1 - Hypo-osmolality and hyponatremia Status: Acute Assessment and Plan: - Stable on labs this am. - Has had workup in the past (2020) and has been on oral sodium tabs and thought to be from chronic opioids. We will continue the sodium tabs. (6) Leukocytosis: Code(s): D72.829 - Elevated white blood cell count, unspecified Status: Acute Assessment and Plan: - I suspect steroid induced - will check procal with am labs. No fevers, no chills. No acute s/s of infection. Plan Home Meds/Chronic Conditions - AFib: Continue amiodarone and Eliquis. also on ASA. - HLD: Continue home statin and ezetimibe - Mood disorder: continue buspirone - OTC/ supplements: Continue cetirizine, vitamin-D, vitamin B12, folic acid, magnesium, sodium tabs - HTN: Continue home valsartan, Bystolic. BP are stable. - HF: Hold Lasix. - Hypothyroidism: Continue levothyroxine, TSH WNL -on MTX, no infx suspected - Chronic constipation related to opiate use: Continue Linzess. She is having some difficulty with BM today, 09/13. - asthma: Continue singular, Advair, and albuterol DVT Prophylaxis: SCDs, continue home Eliquis Time Spent With Patient Time with patient: 25 - 35 minutes Subjective Date/time seen: 09/13/23 09:11 Interval history: Sharona states she is having significant back pain and abdominal pain this morning. The abd. pain is worsened with eating. She has a history of intermittent heartburn. She reports recently starting oral steroids. Review of Systems Review of Systems: All systems reviewed & are unremarkable except as noted in HPI and below Exam Narrative: GENERAL APPEARANCE: Appears to be in no acute distress. HEAD: normocephalic atraumatic EYES: PERRL, EOMI. Vision grossly intact. ENT: Hearing grossly intact, no nasal discharg
[2023-09-13] MEDS: ATORVASTATIN 40 MG TABLET PO (20:01)
[2023-09-14] VITALS (7 sets, daily range): BP systolic 105–142; BP diastolic 45–76; PULSE 63–73; RESP 12–20; TEMP 36.5–36.8; O2SAT 98–100
[2023-09-14] MEDS: oxyCODONE/ACETAMINOPHEN (*CRX) 10-325 MG TABLET 1 TAB PO ×4 (03:14→20:41)
[2023-09-14] MEDS: LEVOTHYROXINE SODIUM 88 MCG TABLET PO (05:32)
[2023-09-14] MEDS: LINACLOTIDE 145 MCG CAPSULE PO (05:32)
[2023-09-14 06:26] LABS: Hematocrit 30.1 % (37.0-47.0); Hemoglobin 9.7 g/dL (12.0-15.0); Mean Corpuscular HGB Conc 32.2 g/dl (32-36); Mean Corpuscular Volume 86.7 fl (80-100); Mean Platelet Volume 9.6 fl (7.4-10.4); Platelet Count Result 269 k/mm3 (150-375); Red Blood Count 3.47 M/mm3 (4.2-5.4); Red Cell Distribution Width 14.1 % (11.5-14.5); White Blood Count 13.5 K/mm3 (4.5-10.0)
[2023-09-14 06:38] LABS: Anion Gap 6 mmol/L (8-16); Blood Urea Nitrogen 18 mg/dL (7-17); Calcium 8.3 mg/dL (8.4-10.2); Carbon Dioxide 27 mmol/L (22-30); Chloride 94 mmol/L (98-107); Estimated Glomerular Filt Rate > 60; Glucose 137 mg/dL (65-110); Potassium 4.2 mmol/L (3.4-5.0); Sodium 127 mmol/L (137-145)
[2023-09-14 07:37] LABS: Procalcitonin 0.1 ng/mL
[2023-09-14] MEDS: PANTOPRAZOLE 40 MG TABLET PO ×2 (08:34→20:41)
[2023-09-14] MEDS: NEBIVOLOL HCL 5 MG TABLET PO (08:34)
[2023-09-14] MEDS: busPIRone HCL 10 MG TABLET PO (08:34)
[2023-09-14] MEDS: SODIUM CHLORIDE 1 GM TABLET PO ×2 (08:35→17:26)
[2023-09-14] MEDS: EZETIMIBE 10 MG TABLET PO (08:35)
[2023-09-14] MEDS: VALSARTAN 160 MG TABLET 320 MG PO (08:35)
[2023-09-14] MEDS: CYANOCOBALAMIN 1,000 MCG TABLET 1000 MCG PO (08:35)
[2023-09-14] MEDS: FOLIC ACID 1 MG TABLET 3 MG PO (08:36)
[2023-09-14] MEDS: MONTELUKAST SODIUM 10 MG TABLET PO (08:36)
[2023-09-14] MEDS: predniSONE 10 MG TABLET PO (08:36)
[2023-09-14] MEDS: ASPIRIN 81 MG ENTERIC TABLET PO (08:36)
[2023-09-14] MEDS: ERGOCALCIFEROL 50,000 UNITS CAPSULE 50000 UNITS PO (08:36)
[2023-09-14] MEDS: MAGNESIUM OXIDE 400 MG TABLET PO (08:36)
[2023-09-14] MEDS: AMIODARONE HCL 200 MG TABLET PO (08:36)
[2023-09-14] MEDS: APIXABAN 5 MG TABLET PO ×2 (08:37→20:41)
[2023-09-14] MEDS: LORATADINE 10 MG TABLET PO (08:37)
[2023-09-14] MEDS: FLUTICASONE/SALMETEROL 115-21 MCG INHALER 1 PUFF 2 PUFF INHALATION ×2 (08:44→21:31)
--- NOTE | 2023-09-14 10:50 | PM.IMPN ---
Progress Note: A&P Assessment and Plan (1) Abdominal pain: Qualifiers: Abdominal location: periumbilical Qualified Code(s): R10.33 - Periumbilical pain Code(s): R10.9 - Unspecified abdominal pain Status: Acute Assessment and Plan: Pt presented with epigastric pain with n/v. - U/S of the abdomen, with cbd dilation of 13mm, felt to represent post cholecystectomy state. - CT abdomen no acute findings other than possible cystitis. - Recently started steroids, had kenalog injection in June - then just completed a steroid dosepak and a second dosepak was started. She states this was in the last few weeks. She has been on oral steroids for at least the last month, now on 10mg daily - I would hesitate to abruptly stop the oral steroids her history of low cortisol levels (but stim challenge normal). I suspect this is steroid induced gastropathy. She has seen GI within the last month, they noted that an outpatient EGD may be warranted. I believe this is a reasonable next step and can be completed outpatient, as the patient has stable hemoglobin and no signs of an UGIB. 09/14: Patient complaining of constipation. Ordered double dose of Linzess for total 290 mg and add MiraLax daily. Patient once discharge tomorrow after she is able bowel movement. (2) Acute urinary retention: Code(s): R33.8 - Other retention of urine Status: Acute Assessment and Plan: Appreciate urology recommendations. - DC [facility] and obtain PVRs today. - Consider further inpatient/outpatient urology consultation if continues to retain. - If voiding spontaneously and no further acute needs from this standpoint, likely to discharge in the next 24 hours. (3) ANASTACIA (acute kidney injury): Code(s): N17.9 - Acute kidney failure, unspecified Status: Acute Assessment and Plan: - Creatinine normalized today, BUN remains elevated at 24mg/dl. - Continue to push oral. 09/14: Renal function improved creatinine 0.8 BUN 18 estimated GFR greater than 60 (4) Chronic pain syndrome: Code(s): G89.4 - Chronic pain syndrome Status: Acute Assessment and Plan: - Known RA/OA (patient reports lumbar spine significantly impacted). No acute findings on imaging this stay. Follows with pain management. - Cont. prednisone as per above. (5) Hyponatremia: Code(s): E87.1 - Hypo-osmolality and hyponatremia Status: Acute Assessment and Plan: - Stable on labs this am. - Has had workup in the past (2020) and has been on oral sodium tabs and thought to be from chronic opioids. We will continue the sodium tabs. 09/14: Sodium level stable at 127 (6) Leukocytosis: Code(s): D72.829 - Elevated white blood cell count, unspecified Status: Acute Assessment and Plan: - I suspect steroid induced - will check procal with am labs. No fevers, no chills. No acute s/s of infection. 09/14: Procalcitonin 0.1, wbc's down trending, urine culture negative (7) Therapeutic opioid induced constipation: Code(s): K59.03 - Drug induced constipation; T40.2X5A - Adverse effect of other opioids, initial encounter Status: Acute Assessment and Plan: 09/14: Doubled dose Linzess and added MiraLax daily. Will give 1 time dose of Relistor. Patient begging not to be discharged until tomorrow morning after she has passed BM. Plan Home Meds/Chronic Conditions - AFib: Continue amiodarone and Eliquis. also on ASA. - HLD: Continue home statin and ezetimibe - Mood disorder: continue buspirone - OTC/ supplements: Continue cetirizine, vitamin-D, vitamin B12, folic acid, magnesium, sodium tabs - HTN: Continue home valsartan, Bystolic. BP are stable. - HF: Hold Lasix. - Hypothyroidism: Continue levothyroxine, TSH WNL -on MTX, no infx suspected - Chronic constipation related to opiate use: Continue Linzess. She is having some difficulty with BM today, 09/13. - asthm
[2023-09-14] MEDS: METHYLNALTREXONE 12 MG/0.6 ML VIAL SUB-Q (13:16)
--- NOTE | 2023-09-14 14:01 | PCPTNOTE ---
Patient declined PT stating she just walked with nursing to the bathroom and back to bed. PT will continue to follow per plan of care.
--- NOTE | 2023-09-14 15:15 | PCOTNOTE ---
Attempted to see pt for Occupational Therapy treatment. Pt is currently experiencing severe low back pain due to weather changes. Pt declined to complete any exercises and/or position changes for pain relief. Pt also declined need of heating pad and/or pain medication. Pt is educated to notify RN when needing medicine. Will continue per poc duration/frequency tomorrow.
[2023-09-14] MEDS: MORPHINE SULFATE (*CRX) 2 MG/ML INJ IV PUSH (15:30)
[2023-09-14] MEDS: ATORVASTATIN 40 MG TABLET PO (20:41)
[2023-09-15] MEDS: oxyCODONE/ACETAMINOPHEN (*CRX) 10-325 MG TABLET 1 TAB PO ×3 (02:57→17:18)
[2023-09-15 05:25] VITALS: BP 139/46; PULSE 67; RESP 12; TEMP 36.1; O2SAT 99
[2023-09-15] MEDS: LINACLOTIDE 145 MCG CAPSULE 290 MCG PO (06:22)
[2023-09-15] MEDS: LEVOTHYROXINE SODIUM 88 MCG TABLET PO (06:22)
[2023-09-15 08:50] LABS: Hematocrit 29.9 % (37.0-47.0); Hemoglobin 9.7 g/dL (12.0-15.0); Mean Corpuscular HGB Conc 32.4 g/dl (32-36); Mean Corpuscular Hemoglobin 28.1 pg (26-34); Mean Corpuscular Volume 86.7 fl (80-100); Mean Platelet Volume 9.3 fl (7.4-10.4); Platelet Count Result 260 k/mm3 (150-375); Red Blood Count 3.45 M/mm3 (4.2-5.4); Red Cell Distribution Width 14.3 % (11.5-14.5); White Blood Count 14.3 K/mm3 (4.5-10.0)
[2023-09-15 09:00] LABS: Anion Gap 6 mmol/L (8-16); Blood Urea Nitrogen 16 mg/dL (7-17); Calcium 8.2 mg/dL (8.4-10.2); Carbon Dioxide 29 mmol/L (22-30); Chloride 89 mmol/L (98-107); Estimated Glomerular Filt Rate > 60; Glucose 160 mg/dL (65-110); Sodium 124 mmol/L (137-145)
[2023-09-15] MEDS: FLUTICASONE/SALMETEROL 115-21 MCG INHALER 1 PUFF 2 PUFF INHALATION ×2 (09:04→21:26)
[2023-09-15] MEDS: polyethylene glycoL 3350 17 GM POWD.PACK PO (09:15)
[2023-09-15] MEDS: APIXABAN 5 MG TABLET PO ×2 (09:17→21:45)
[2023-09-15] MEDS: ASPIRIN 81 MG ENTERIC TABLET PO (09:17)
[2023-09-15] MEDS: PANTOPRAZOLE 40 MG TABLET PO ×2 (09:17→21:45)
[2023-09-15] MEDS: EZETIMIBE 10 MG TABLET PO (09:17)
[2023-09-15] MEDS: FOLIC ACID 1 MG TABLET 3 MG PO (09:17)
[2023-09-15] MEDS: predniSONE 10 MG TABLET PO (09:17)
[2023-09-15] MEDS: AMIODARONE HCL 200 MG TABLET PO (09:17)
[2023-09-15] MEDS: MAGNESIUM OXIDE 400 MG TABLET PO (09:17)
[2023-09-15] MEDS: SODIUM CHLORIDE 1 GM TABLET PO ×2 (09:17→17:18)
[2023-09-15] MEDS: VALSARTAN 160 MG TABLET 320 MG PO (09:17)
[2023-09-15] MEDS: MONTELUKAST SODIUM 10 MG TABLET PO (09:17)
[2023-09-15] MEDS: NEBIVOLOL HCL 5 MG TABLET PO (09:18)
[2023-09-15] MEDS: CYANOCOBALAMIN 1,000 MCG TABLET 1000 MCG PO (09:18)
[2023-09-15] MEDS: LORATADINE 10 MG TABLET PO (09:18)
[2023-09-15 14:00] VITALS: BP 160/58; PULSE 72; RESP 8; TEMP 36.6; O2SAT 100
--- NOTE | 2023-09-15 15:42 | PM.DS ---
DS: Admitting Diagnosis Discharge Date 09/15/23 Admitting Diagnosis epigastric pain, N/V DS: Discharge Diagnosis Discharge Diagnosis (1) Abdominal pain: Qualifiers: Abdominal location: periumbilical Qualified Code(s): R10.33 - Periumbilical pain Code(s): R10.9 - Unspecified abdominal pain Status: Acute Assessment and Plan: - U/S of the abdomen, with cbd dilation of 13mm, felt to represent post cholecystectomy state. - CT abdomen no acute findings other than possible cystitis. - Recently started steroids, had kenalog injection in June - then just completed a steroid dosepak and a second dosepak was started. She states this was in the last few weeks. She has been on oral steroids for at least the last month, now on 10mg daily -hesitatant to abruptly stop the oral steroids her history of low cortisol levels (but stim challenge normal). suspected steroid induced gastropathy. She has seen GI within the last month, they noted that an outpatient EGD may be warranted. patient has stable hemoglobin and no signs of an UGIB. double dose of Linzess for total 290 mg and add MiraLax daily. soap suds enema ordered this afternoon Patient stable for discharge after bowel movement. (2) Acute urinary retention: Code(s): R33.8 - Other retention of urine Status: Resolved Assessment and Plan: - DC [facility] and obtain PVRs today. - Consider further inpatient/outpatient urology consultation if continues to retain. (3) ANASTACIA (acute kidney injury): Code(s): N17.9 - Acute kidney failure, unspecified Status: Resolved Assessment and Plan: - Creatinine normalized, BUN now stable at 16 today (4) Chronic pain syndrome: Code(s): G89.4 - Chronic pain syndrome Status: Acute Assessment and Plan: - Known RA/OA (patient reports lumbar spine significantly impacted). - No acute findings on imaging this stay. Follows with pain management. - Cont. prednisone as per above. (5) Hyponatremia: Code(s): E87.1 - Hypo-osmolality and hyponatremia Status: Acute Assessment and Plan: - Stable on labs this am. - Has had workup in the past (2020) and has been on oral sodium tabs and thought to be from chronic opioids. - continue the sodium tabs (6) Leukocytosis: Code(s): D72.829 - Elevated white blood cell count, unspecified Status: Acute Assessment and Plan: Procalcitonin 0.1, wbc's down trending, urine culture negative (7) Therapeutic opioid induced constipation: Code(s): K59.03 - Drug induced constipation; T40.2X5A - Adverse effect of other opioids, initial encounter Status: Chronic Assessment and Plan: Doubled dose Linzess and added MiraLax daily. soap suds enema added this afternoon patient may d/c home after BM Plan Home Meds/Chronic Conditions - AFib: Continue amiodarone and Eliquis. also on ASA. - HLD: Continue home statin and ezetimibe - Mood disorder: continue buspirone - OTC/ supplements: Continue cetirizine, vitamin-D, vitamin B12, folic acid, magnesium, sodium tabs - HTN: Continue home valsartan, Bystolic. BP are stable. - HF: Hold Lasix. - Hypothyroidism: Continue levothyroxine, TSH WNL -on MTX, no infx suspected - Chronic constipation related to opiate use: Continue Linzess. She is having some difficulty with BM today, 09/13. - asthma: Continue singular, Advair, and albuterol DVT Prophylaxis: SCDs, continue home Eliquis DS: Summary Hospital Course Hospital Course: Patient is an 78 y/o F admitted with abdominal pain, poor appetite, and low back pain with PMH of Afib, heart disease, HLD, hypothyroidism, RA, and osteoarthritis of her lower back. Patient reports epigastric abdominal pain for the past 2 weeks that has been constant and occasionally worsens with eating. She developed constipation, has not had a BM since . She also reports difficulty
--- NOTE | 2023-09-15 17:01 | PC.NURSE ---
Pt to toilet after enema given. Brown liquid stool noted in toilet. Pt states there's nothing formed. It did not work. States she does not want to be discharged until she can pass formed stool.
[2023-09-15 20:00] VITALS: PULSE 72; RESP 8; O2SAT 100
[2023-09-15 21:26] VITALS: PULSE 75; RESP 18
[2023-09-15] MEDS: ATORVASTATIN 40 MG TABLET PO (21:45)
[2023-09-15 22:00] VITALS: BP 133/51; PULSE 60; RESP 18; TEMP 36.9; O2SAT 99
[2023-09-16] MEDS: oxyCODONE/ACETAMINOPHEN (*CRX) 10-325 MG TABLET 1 TAB PO ×3 (01:28→14:19)
[2023-09-16] MEDS: LINACLOTIDE 145 MCG CAPSULE 290 MCG PO (05:45)
[2023-09-16] MEDS: LEVOTHYROXINE SODIUM 88 MCG TABLET PO (05:45)
[2023-09-16 06:00] VITALS: BP 146/43; PULSE 63; RESP 18; TEMP 36.8; O2SAT 100
[2023-09-16] MEDS: PANTOPRAZOLE 40 MG TABLET PO (08:07)
[2023-09-16] MEDS: polyethylene glycoL 3350 17 GM POWD.PACK PO (08:07)
[2023-09-16] MEDS: ASPIRIN 81 MG ENTERIC TABLET PO (08:07)
[2023-09-16] MEDS: MONTELUKAST SODIUM 10 MG TABLET PO (08:07)
[2023-09-16] MEDS: APIXABAN 5 MG TABLET PO (08:07)
[2023-09-16] MEDS: FOLIC ACID 1 MG TABLET 3 MG PO (08:07)
[2023-09-16] MEDS: SODIUM CHLORIDE 1 GM TABLET PO (08:08)
[2023-09-16] MEDS: CYANOCOBALAMIN 1,000 MCG TABLET 1000 MCG PO (08:08)
[2023-09-16] MEDS: LORATADINE 10 MG TABLET PO (08:08)
[2023-09-16] MEDS: MAGNESIUM OXIDE 400 MG TABLET PO (08:08)
[2023-09-16] MEDS: predniSONE 10 MG TABLET PO (08:08)
[2023-09-16] MEDS: EZETIMIBE 10 MG TABLET PO (08:08)
[2023-09-16 08:09] VITALS: PULSE 63
[2023-09-16] MEDS: AMIODARONE HCL 200 MG TABLET PO (08:09)
[2023-09-16] MEDS: NEBIVOLOL HCL 5 MG TABLET PO (08:09)
[2023-09-16] MEDS: VALSARTAN 160 MG TABLET 320 MG PO (08:09)
[2023-09-16 08:21] LABS: Basophils Absolute Auto 0.1 K/mm3 (0.0-0.1); Basophils Percent Auto 0.8 % (0.2-1.2); Eosinophils Absolute Auto 0.1 K/mm3 (0-0.3); Eosinophils Percent Auto 0.5 % (0-4.4); Hematocrit 31.9 % (37.0-47.0); Hemoglobin 10.4 g/dL (12.0-15.0); Immature Granulocyte Absolute 1.12 K/mm3 (0.00-0.031); Immature Granulocyte Percent A 6.7 % (0-0.5); Lymphocytes Percent Auto 34.3 % (18.3-44.2); Mean Corpuscular HGB Conc 32.6 g/dl (32-36); Mean Corpuscular Hemoglobin 27.9 pg (26-34); Mean Corpuscular Volume 85.5 fl (80-100); Mean Platelet Volume 9.5 fl (7.4-10.4); Monocytes Absolute Auto 0.7 K/mm3 (0.1-0.6); Monocytes Percent Auto 4.4 % (2.6-8.5); Neutrophils Absolute Auto 8.9 K/mm3 (1.3-6.7); Neutrophils Percent Auto 53.3 % (45.5-73.1); Nucleated Red Blood Cells Perc 0.2 % (0.0-0.2); Platelet Count Result 279 k/mm3 (150-375); Red Blood Count 3.73 M/mm3 (4.2-5.4); Red Cell Distribution Width 14.4 % (11.5-14.5); White Blood Count 16.6 K/mm3 (4.5-10.0)
[2023-09-16 08:30] LABS: Anion Gap 8 mmol/L (8-16); Blood Urea Nitrogen 15 mg/dL (7-17); Carbon Dioxide 28 mmol/L (22-30); Chloride 90 mmol/L (98-107); Estimated Glomerular Filt Rate > 60; Glucose 120 mg/dL (65-110); Potassium 4.9 mmol/L (3.4-5.0); Sodium 126 mmol/L (137-145)
[2023-09-16 09:24] LABS: Atypical Lymphocytes Present; Platelet Estimate Adequate (Adequate); Schistocytes None Seen (NORMAL)
[2023-09-16] MEDS: MORPHINE SULFATE (*CRX) 2 MG/ML INJ IV PUSH (13:08)
[2023-09-16] MEDS: MAGNESIUM CITRATE 300 ML BTL PO (13:14)
[2023-09-16 14:00] VITALS: BP 142/62; PULSE 65; RESP 20; TEMP 36.7; O2SAT 100
--- NOTE | 2023-09-16 15:15 | PM.DS ---
DS: Admitting Diagnosis Discharge Date 09/16/23 Admitting Diagnosis epigastric pain, N/V DS: Discharge Diagnosis Discharge Diagnosis (1) Abdominal pain: Qualifiers: Abdominal location: periumbilical Qualified Code(s): R10.33 - Periumbilical pain Code(s): R10.9 - Unspecified abdominal pain Status: Acute Assessment and Plan: - U/S of the abdomen, with cbd dilation of 13mm, felt to represent post cholecystectomy state. - CT abdomen no acute findings other than possible cystitis. - Recently started steroids, had kenalog injection in June - then just completed a steroid dosepak and a second dosepak was started. She states this was in the last few weeks. She has been on oral steroids for at least the last month, now on 10mg daily -hesitatant to abruptly stop the oral steroids her history of low cortisol levels (but stim challenge normal). suspected steroid induced gastropathy. She has seen GI within the last month, they noted that an outpatient EGD may be warranted. patient has stable hemoglobin and no signs of an UGIB. double dose of Linzess for total 290 mg and add MiraLax daily. soap suds enema given mag citrate given today Patient stable for discharge after bowel movement. (2) Acute urinary retention: Code(s): R33.8 - Other retention of urine Status: Resolved Assessment and Plan: - DC [facility] and obtain PVRs today. - Consider further inpatient/outpatient urology consultation if continues to retain. (3) ANASTACIA (acute kidney injury): Code(s): N17.9 - Acute kidney failure, unspecified Status: Resolved Assessment and Plan: - Creatinine normalized, BUN now stable at 15 (4) Chronic pain syndrome: Code(s): G89.4 - Chronic pain syndrome Status: Acute Assessment and Plan: - Known RA/OA (patient reports lumbar spine significantly impacted). - No acute findings on imaging this stay. Follows with pain management. - Cont. prednisone as per above. (5) Hyponatremia: Code(s): E87.1 - Hypo-osmolality and hyponatremia Status: Acute Assessment and Plan: - Stable on labs this am. - Has had workup in the past (2020) and has been on oral sodium tabs and thought to be from chronic opioids. - continue the sodium tabs (6) Leukocytosis: Code(s): D72.829 - Elevated white blood cell count, unspecified Status: Acute Assessment and Plan: Procalcitonin 0.1, wbc's down trending, urine culture negative (7) Therapeutic opioid induced constipation: Code(s): K59.03 - Drug induced constipation; T40.2X5A - Adverse effect of other opioids, initial encounter Status: Chronic Assessment and Plan: Doubled dose Linzess and added MiraLax daily. soap suds enema yesterday mag citrate given today patient may d/c home after BM Plan Home Meds/Chronic Conditions - AFib: Continue amiodarone and Eliquis. also on ASA. - HLD: Continue home statin and ezetimibe - Mood disorder: continue buspirone - OTC/ supplements: Continue cetirizine, vitamin-D, vitamin B12, folic acid, magnesium, sodium tabs - HTN: Continue home valsartan, Bystolic. BP are stable. - HF: Hold Lasix. - Hypothyroidism: Continue levothyroxine, TSH WNL -on MTX, no infx suspected - Chronic constipation related to opiate use: Continue Linzess. She is having some difficulty with BM today, 09/13. - asthma: Continue singular, Advair, and albuterol DVT Prophylaxis: SCDs, continue home Eliquis DS: Summary Hospital Course Hospital Course: Patient is an 78 y/o F admitted with abdominal pain, poor appetite, and low back pain with PMH of Afib, heart disease, HLD, hypothyroidism, RA, and osteoarthritis of her lower back. Patient reports epigastric abdominal pain for the past 2 weeks that has been constant and occasionally worsens with eating. She developed constipation, has not had a BM since . She also reports di
--- NOTE | 2023-09-16 16:55 | PC.NURSE ---
iv out, patient stable. family picking her up by private care, going home self care. wheeled out by wheelchair.
--- NOTE | 2023-09-19 07:50 | PC.NURSE ---
Blood cultures are negative.
== END 2023-09-16 16:40 | disposition home or self-care (01) | DRG 445 ==
LOC: ANHED 09:28 → ANH3MEDSUR 13:33
PROVIDERS: Nurse Practitioner Family; Physician Assistant; Student in an Organized Health Care Education/Training Program; Admitting Provider Student in an Organized Health Care Education/Training Program; Emergency Provider Emergency Medicine; PCP Family Medicine; Visit Provider Nurse Practitioner
DX: K91.5 Postcholecystectomy syndrome (principal); E87.1 Hypo-osmolality and hyponatremia; N17.9 Acute kidney failure, unspecified; K59.03 Drug induced constipation; R33.8 Other retention of urine; K31.89 Other diseases of stomach and duodenum; T38.0X5A Adverse effect of glucocorticoids and synthetic analogues, initial encounter; R10.33 Periumbilical pain; G89.4 Chronic pain syndrome; D72.829 Elevated white blood cell count, unspecified; T40.605A Adverse effect of unspecified narcotics, initial encounter; E78.5 Hyperlipidemia, unspecified; I10 Essential (primary) hypertension; E03.9 Hypothyroidism, unspecified; T40.2X5A Adverse effect of other opioids, initial encounter; J45.909 Unspecified asthma, uncomplicated; Z20.822 Contact with and (suspected) exposure to COVID-19; K21.9 Gastro-esophageal reflux disease without esophagitis; F41.9 Anxiety disorder, unspecified; I25.10 Atherosclerotic heart disease of native coronary artery without angina pectoris; E86.0 Dehydration; M15.9 Polyosteoarthritis, unspecified; K58.9 Irritable bowel syndrome, unspecified; I11.0 Hypertensive heart disease with heart failure; I50.9 Heart failure, unspecified; E11.42 Type 2 diabetes mellitus with diabetic polyneuropathy; M06.9 Rheumatoid arthritis, unspecified; Z86.718 Personal history of other venous thrombosis and embolism; Z79.82 Long term (current) use of aspirin; Z79.01 Long term (current) use of anticoagulants; Z90.49 Acquired absence of other specified parts of digestive tract; Z98.49 Cataract extraction status, unspecified eye; Z90.710 Acquired absence of both cervix and uterus
CPT/HCPCS: 36415; 72131; 72148; 74177; 76705; 80048; 80053; 81003; 82550; 83605; 83690; 84145; 84443; 85025; 85027; 85610; 85730; 87040; 87086; 87088; 87637; 94640; 96361; 96374; 96375; 96376; 97161; 97165; 97530; 99285; A9270; G0378; J2212; J2270; J2405; J7030; J7120; J7512; Q9967

== ENCOUNTER 2023-10-13 12:05 | Inpatient (IN) | payer MEDICARE, BC, SELFPAY ==
--- NOTE | ~2023-10-13 | CT_ITS ---
EXAMINATION: CT brain wo con DATE: 10/13/2023 21:56 INDICATION: headache . TECHNIQUE: Computed tomography (CT) of the head was performed without intravenous contrast. The mA wa s adjusted according to patient size. Iterative reconstruction technique was employed. The dose-lengt h product was 605.33 mGy-cm. COMPARISON: 05/24/2023. FINDINGS: No acute intracranial hemorrhage or extra-axial fluid collection. No hydrocephalus, mass, or herniation. No acute ischemic infarct. Unremarkable dural venous sinus attenuation. No acute osseous abnormality. Left mastoid fluid, the remaining aerated spaces are clear. Mild atrophy and chronic white matter change. Atherosclerotic intracranial calcification. Bilateral l ens replacements. IMPRESSION: No acute intracranial process. Reviewed, dictated and finalized at location K. IENT MANAGEMENT SPECIALIST
--- NOTE | ~2023-10-13 | CT_ITS ---
EXAMINATION: CTA chest PE protocol DATE: 10/13/2023 21:57 INDICATION: syncope TECHNIQUE: Computed tomography angiography (CTA) of the chest was performed with 100 mL Omnipaque-350 intravenous contrast timed to evaluate the pulmonary arteries. Coronal maximum intensity projection 3D-reconstructions were created by the technologist. The dose-length product (DLP) was 247.70 mGy-cm. Automated exposure control and iterative reconstruction technique were employed. COMPARISON: X-ray chest 08/14/2023; CT chest 04/21/2023. FINDINGS: Lung parenchyma and airways: Bilateral dependent scar/atelectasis.. Pleura: Unremarkable. Thoracic inlet, axillae and chest wall: Soft tissue anchors in the right humeral head. Thoracic aorta: Moderate atherosclerotic calcification. No dissection or aneurysm. Ulcerative plaque in the posterior arch. Thin aortic web or fibrous cord in the distal descending thoracic aorta. Mediastinum: Large hiatal hernia. Heart and pericardium: Mild cardiomegaly. Aortic and mitral calcification. No pericardial effusion. Coronary artery calcifications: Mild. Upper abdomen: Status post cholecystectomy. Right lower lobe and splenic cysts or hemangiomas. Bones: No acute osseous finding. Pulmonary arteries: Study quality: Adequate. No pulmonary emboli detected. IMPRESSION: No CT evidence of acute pulmonary embolus. Ulcerative plaque in the posterior aspect of the aortic arch. Reviewed, dictated and finalized at location K. RMINATOR TERMITE
--- NOTE | ~2023-10-13 | US_ITS ---
EXAMINATION: US carotid duplex BI DATE: 10/14/2023 10:16 INDICATION: Syncope. TECHNIQUE: Grayscale, color Doppler, and pulsed Doppler images of the cervical carotid arteries were obtained. The degree of vessel stenosis is placed in one of the following categories: normal, <50%, 5 0-69%, >=70% but less than near-occlusion, near-occlusion, or total occlusion. Note that percent sten osis relative to normal distal artery lumen diameter is indirectly measured from velocity measurement s as described by Tommy, et al. Radiology 2003; 229:340-346. COMPARISON: Ultrasound 11/10/2012 FINDINGS: RIGHT: The right common carotid artery (CCA) peak systolic velocity (PSV) is 80 cm/s. The right internal car otid artery (ICA) PSV is 406 cm/s. The right ICA end-diastolic velocity (EDV) is 110 cm/s. The right ICA/CCA PSV ratio is 5.0. Grayscale and color Doppler images yield an estimate of >=50% diameter redu ction from plaque in the ICA. There is antegrade flow in the right vertebral artery. LEFT: The left CCA PSV is 78 cm/s. The left ICA PSV is 83 cm/s. The left ICA EDV is 25 cm/s. The left ICA/C CA PSV ratio is 1.1. The ICA lumen is obscured by shadowing plaque in the ICA. There is antegrade rocio w in the left vertebral artery. IMPRESSION: 1. >=70% stenosis in the right internal carotid artery, but less than near occlusion. 2. <50% stenosis in the left internal carotid artery. Reviewed, dictated and finalized at location A. S CUTTER IMPRESSION: 1. >=70% stenosis in the right internal carotid artery, but less than near occl usion. 2. <50% stenosis in the left internal carotid artery.
[2023-10-13 12:50] VITALS: BP 151/71; PULSE 74; RESP 18; TEMP 36.9; O2SAT 94
--- NOTE | 2023-10-13 13:53 | ED.GENADULT ---
HPI - General Adult General Chief complaint: Dizziness Stated complaint: near syncopal episodes Time Seen by Provider: 10/13/23 20:06 History of Present Illness HPI narrative: Focused HPI: [id number] Aracely Spear is an 78 y/o female who presents with reports of having several episodes of near syncope over the past two weeks - she states that all of sudden her vision will start to go out and gets really light headed and she feels like she is going to pass out - she then sits down and rests and it improves in about 20-30 minutes. She reports she has been eating and drinking normal until two days ago has not been eating much. She states she started to feel a little nauseated today and she felt nauseated before she almost passed out today Denies any worsening SOB / Denies Chest pain / Currently on Eliquis BID for Afib - denies any new palpitations. States mild VARGAS GENERAL: well-nourished, and in no acute distress. HEAD: Normocephalic, atraumatic. CHEST: Clear to auscultation. ?No respiratory distress. HEART: Regular rate and rhythm.? NEURO: ?Alert and oriented x3. Patient screened in triage and initial orders placed.? ?Additional care and disposition to be based upon?diagnostic testing and treatment. Related Data Home Medications Medication Instructions Recorded Confirmed aspirin 81 mg tablet,delayed 81 mg PO DAILY 07/29/19 10/19/23 release (Adult Low Dose Aspirin) nitroglycerin 0.4 mg sublingual 0.4 mg sublingual Q5M PRN Chest 07/29/19 10/19/23 tablet Pain cetirizine 10 mg capsule 10 mg PO DAILY 03/15/23 10/19/23 ezetimibe 10 mg tablet 10 mg PO DAILY 03/15/23 10/19/23 folic acid 1 mg tablet 3 mg PO DAILY 03/15/23 10/19/23 albuterol sulfate 90 mcg/actuation 2 puff inhalation QID PRN 06/22/23 10/19/23 aerosol inhaler Shortness Of Breath Or Wheezing buspirone 10 mg tablet 10 mg PO BID PRN Anxiety 06/22/23 10/19/23 furosemide 40 mg tablet 20 mg PO DAILY 06/22/23 10/19/23 methotrexate sodium 2.5 mg tablet 2.5 mg PO WEEKLY 06/22/23 10/19/23 linaclotide 145 mcg capsule 145 mcg PO DAILY 08/14/23 10/19/23 (Linzess) prednisone 10 mg tablet 10 mg PO DAILY 08/14/23 10/19/23 amiodarone 200 mg tablet (Pacerone) 200 mg PO DAILY 09/11/23 10/19/23 fluticasone 250 mcg-salmeterol 50 250 inh inhalation Q12H 10/19/23 10/19/23 mcg/dose blistr powdr for inhalation (Wixela Inhub) Allergies Allergy/AdvReac Type Severity Reaction Status Date / Time No Known Allergies Allergy Verified 10/13/23 20:00 [facility] Past Medical History Medical History Anxiety Asthma Chronic anticoagulation Chronic hyponatremia Chronic pain syndrome Chronic, continuous use of opioids Coronary artery disease Angioplasty of a diagonal lesion in 01/2018. Cardiac catheterization 06/2019 showed patent coronary arteries. Deep venous thrombosis Degenerative joint disease involving multiple joints Depression Folic acid deficiency Gastroesophageal reflux disease Heart failure with preserved ejection fraction Hiatal hernia Hyperlipidemia Hypertension Hypothyroidism Irritable bowel syndrome Obstructive sleep apnea Noncompliant with CPAP. Paroxysmal atrial fibrillation Peptic ulcer Peripheral neuropathy Pneumonia Renal artery stenosis Rheumatoid arthritis Seasonal allergies Type 2 diabetes mellitus Vitamin B 12 deficiency Vitamin D deficiency Surgical History Surgical History History of appendectomy History of arthroscopy of both shoulders History of cardiac catheterization Angioplasty of a diagonal stenosis 01/2018. Cardiac catheterization 06/2019 showed patent coronary arteries. History of carpal tunnel release History of cataract extraction History of cholecystectomy History of foot surgery History of hysterectomy History of phacoemulsification of cataract with intraocular lens implantation Family History Family History (Reviewed 10/19/23 @ 14:2
--- NOTE | 2023-10-13 14:01 | ECG_ITS ---
Measurements Intervals [place] Rate: 63 P: 46 CT: 200 QRS: -32 QRSD: 94 T: -14 QT: 434 QTc: 445 Interpretive Statements SINUS RHYTHM LEFT AXIS DEVIATION INCOMPLETE RIGHT BUNDLE BRANCH BLOCK DELAYED PRECORDIAL R/S TRANSITION LEFT VENTRICULAR HYPERTROPHY BORDERLINE T WAVE ABNORMALITY- ANT/INF LEADS BASELINE ARTIFACT- I, II, III, AVR, AVL, AVF, V4-V6 BORDERLINE ECG COMPARED TO ECG 08/17/2023 11:14:45 INCOMPLETE RIGHT BUNDLE-BRANCH BLOCK NOW PRESENT Electronically Signed On 10-13-2023 14:49:30 [employer] by Jasvir Steele D.O.
[2023-10-13 14:52] VITALS: BP 147/68; PULSE 61; RESP 18; TEMP 37.7; O2SAT 99
[2023-10-13 15:05] LABS: Basophils Absolute Auto 0.1 K/mm3 (0.0-0.1); Basophils Percent Auto 0.7 % (0.2-1.2); Eosinophils Absolute Auto 0.1 K/mm3 (0-0.3); Hematocrit 31.4 % (37.0-47.0); Hemoglobin 9.9 g/dL (12.0-15.0); Immature Granulocyte Absolute 0.07 K/mm3 (0.00-0.031); Immature Granulocyte Percent A 0.6 % (0-0.5); Lymphocytes Absolute Auto 3.71 K/mm3 (0.9-3.2); Lymphocytes Percent Auto 32.6 % (18.3-44.2); Mean Corpuscular HGB Conc 31.5 g/dl (32-36); Mean Corpuscular Hemoglobin 26.8 pg (26-34); Mean Corpuscular Volume 85.1 fl (80-100); Mean Platelet Volume 9.4 fl (7.4-10.4); Monocytes Absolute Auto 0.9 K/mm3 (0.1-0.6); Monocytes Percent Auto 7.7 % (2.6-8.5); Neutrophils Absolute Auto 6.5 K/mm3 (1.3-6.7); Neutrophils Percent Auto 57.4 % (45.5-73.1); Platelet Count Result 373 k/mm3 (150-375); Red Blood Count 3.69 M/mm3 (4.2-5.4); Red Cell Distribution Width 14.6 % (11.5-14.5); White Blood Count 11.4 K/mm3 (4.5-10.0)
[2023-10-13 15:19] LABS: Alanine Aminotransferase 16 U/L (6-35); Albumin Level 3.8 g/dL (3.5-5.1); Alkaline Phosphatase 99 U/L (38-126); Anion Gap 8 mmol/L (8-16); Aspartate Amino Transferase 25 U/L (14-36); Blood Urea Nitrogen 10 mg/dL (7-17); Calcium 9.1 mg/dL (8.4-10.2); Carbon Dioxide 27 mmol/L (22-30); Chloride 95 mmol/L (98-107); Estimated CRCL calculation 42 ml/min; Estimated Glomerular Filt Rate > 60; Glucose 134 mg/dL (65-110); Magnesium 1.4 mg/dL (1.6-2.3); Potassium 3.8 mmol/L (3.4-5.0); Sodium 130 mmol/L (137-145)
[2023-10-13 15:28] LABS: Troponin I < 0.012 ng/mL (0.000-0.034)
[2023-10-13 19:56] VITALS: BP 203/69; PULSE 65; PULSE 66; RESP 12; O2SAT 100
[2023-10-13 20:01] VITALS: BP 191/58; PULSE 65; RESP 15; O2SAT 98
--- NOTE | 2023-10-13 20:53 | ED.DIZZY ---
HPI - Dizziness General Chief Complaint: Dizziness Stated Complaint: near syncopal episodes Time Seen by Provider: 10/13/23 20:06 Source: patient Mode of arrival: ambulatory Limitations: no limitations History of Present Illness HPI Narrative: 78 years old white female lives alone came to the emergency room by private car complaining of intermittent episodes of feeling like she is going to pass out for the last 1-2 weeks. Patient reports that everything get dark can see anything for about [address] During this period of time patient denies any chest pain, shortness of breath or palpitation. Patient reports some numbness and weird feeling of the right fore arm medially including the medial 1 and half fingers for the last 7 days. History of AFib on Eliquis, hypertension, hyperlipidemia, asthma, diabetes, RA and chronic joint pain all over Related Data Home Medications Medication Instructions Recorded Confirmed aspirin 81 mg tablet,delayed 81 mg PO DAILY 07/29/19 09/11/23 release (Adult Low Dose Aspirin) nitroglycerin 0.4 mg sublingual 0.4 mg sublingual Q5M PRN Chest 07/29/19 09/11/23 tablet Pain cetirizine 10 mg capsule 10 mg PO DAILY 03/15/23 09/11/23 ezetimibe 10 mg tablet 10 mg PO DAILY 03/15/23 09/11/23 folic acid 1 mg tablet 3 mg PO DAILY 03/15/23 09/11/23 albuterol sulfate 90 mcg/actuation 2 puff inhalation QID PRN 06/22/23 09/11/23 aerosol inhaler Shortness Of Breath Or Wheezing buspirone 10 mg tablet 10 mg PO BID PRN Anxiety 06/22/23 09/11/23 furosemide 40 mg tablet 20 mg PO DAILY 06/22/23 09/11/23 methotrexate sodium 2.5 mg tablet 2.5 mg PO WEEKLY 06/22/23 09/11/23 linaclotide 145 mcg capsule 145 mcg PO DAILY 08/14/23 09/11/23 (Linzess) prednisone 10 mg tablet 10 mg PO DAILY 08/14/23 09/11/23 amiodarone 200 mg tablet (Pacerone) 200 mg PO DAILY 09/11/23 09/11/23 Allergies Allergy/AdvReac Type Severity Reaction Status Date / Time No Known Allergies Allergy Verified 10/13/23 20:00 Review of Systems Review of Systems: All systems reviewed & are unremarkable except as noted in HPI and below PMFSH Past Medical History Medical History Anxiety Asthma Chronic anticoagulation Chronic hyponatremia Chronic pain syndrome Chronic, continuous use of opioids Coronary artery disease Angioplasty of a diagonal lesion in 01/2018. Cardiac catheterization 06/2019 showed patent coronary arteries. Deep venous thrombosis Degenerative joint disease involving multiple joints Depression Gastroesophageal reflux disease Heart failure with preserved ejection fraction Hiatal hernia Hyperlipidemia Hypertension Hypothyroidism Irritable bowel syndrome Obstructive sleep apnea Noncompliant with CPAP. Paroxysmal atrial fibrillation Peptic ulcer Peripheral neuropathy Pneumonia Rheumatoid arthritis Seasonal allergies Type 2 diabetes mellitus without complications Diet-controlled. Hemoglobin A1c was 5.7% on 01/24/2021. Surgical History Surgical History History of appendectomy History of arthroscopy of both shoulders History of cardiac catheterization Angioplasty of a diagonal stenosis 01/2018. Cardiac catheterization 06/2019 showed patent coronary arteries. History of carpal tunnel release History of cataract extraction History of cholecystectomy History of foot surgery History of hysterectomy History of phacoemulsification of cataract with intraocular lens implantation Family History Family History Grandparent Diabetes mellitus Father Acute myocardial infarction Diabetes mellitus Hypertension Mother Hypertension Diabetes mellitus Sibling Diabetes mellitus Hypertension Other Family history of cardiovascular disease Family history of malignant neoplasm of brain Social History Social History (Reviewed 10/13/23 @ 21:32 by Bridger
[2023-10-13 22:19] LABS: Appearance Urine Clear (Clear); Bilirubin Urine Negative (Negative); Blood Urine Negative (Negative); Color Urine Yellow (Yellow); Glucose Urine UA Negative (Negative); Ketones Urine Negative (Negative); Leukocyte Esterase Ur Negative LEU/UL (Negative); Nitrate Urine Negative (Negative); Protein Urine Negative (Negative); Specific Grav Ur 1.014 (1.001-1.035); Urobilinogen Urine 0.2 mg/dL (<2.0)
[2023-10-13 22:21] LABS: Add Urine Microscopic? NO
[2023-10-13 23:10] VITALS: BP 117/41; PULSE 56; RESP 15; O2SAT 95
[2023-10-13 23:47] VITALS: BP 130/47; PULSE 53; RESP 17; O2SAT 98
[2023-10-14] VITALS (15 sets, daily range): BP systolic 118–170; BP diastolic 38–64; PULSE 56–66; RESP 14–20; TEMP 36.4–36.7; O2SAT 92–100; BMI 29.2
--- NOTE | 2023-10-14 01:13 | PM.IMHP ---
H&P: HPI History of Present Illness Date/Time: 10/14/23 01:13 Chief Complaint: Near-syncope Narrative: This is an 78-year-old female with past medical history significant for atrial fibrillation rate controlled anticoagulated, type diabetes mellitus, COPD/asthma, are a, chronic pain, peripheral neuropathy, degenerative joint disease. Patient presents to the emergency room after having near-syncope episode in which she felt lightheaded and close to fainting. However preliminary workup has been essentially nonrevealing. Patient denies any fevers, rigors, chills, nausea, vomiting, diarrhea, chest pain. Patient was ruled out for poor pulmonary embolism with a negative CT of the chest PE protocol. Preliminary workup has been essentially nonrevealing EXAMINATION: CTA chest PE protocol DATE: 10/13/2023 21:57 INDICATION: syncope TECHNIQUE: Computed tomography angiography (CTA) of the chest was performed with 100 mL Omnipaque-350 intravenous contrast timed to evaluate the pulmonary arteries. Coronal maximum intensity projection 3D-reconstructions were created by the technologist. The dose-length product (DLP) was 247.70 mGy-cm. Automated exposure control and iterative reconstruction technique were employed. COMPARISON: X-ray chest 08/14/2023; CT chest 04/21/2023. ? FINDINGS:? Lung parenchyma and airways: Bilateral dependent scar/atelectasis.. Pleura: Unremarkable. Thoracic inlet, axillae and chest wall: Soft tissue anchors in the right humeral head. Thoracic aorta: Moderate atherosclerotic calcification. No dissection or aneurysm. Ulcerative plaque in the posterior arch. Thin aortic web or fibrous cord in the distal descending thoracic aorta. Mediastinum: Large hiatal hernia. Heart and pericardium: Mild cardiomegaly. Aortic and mitral calcification. No pericardial effusion. Coronary artery calcifications: Mild. Upper abdomen: Status post cholecystectomy. Right lower lobe and splenic cysts or hemangiomas. Bones: No acute osseous finding. Pulmonary arteries: Study quality: Adequate. No pulmonary emboli detected. IMPRESSION: No CT evidence of acute pulmonary embolus. Ulcerative plaque in the posterior aspect of the aortic arch. EXAMINATION: CT brain wo con DATE: 10/13/2023 21:56 INDICATION: headache . TECHNIQUE: Computed tomography (CT) of the head was performed without intravenous contrast. The mA was adjusted according to patient size. Iterative reconstruction technique was employed. The dose-length product was 605.33 mGy-cm. COMPARISON: 05/24/2023. FINDINGS: No acute intracranial hemorrhage or extra-axial fluid collection. No hydrocephalus, mass, or herniation. No acute ischemic infarct. Unremarkable dural venous sinus attenuation. No acute osseous abnormality. Left mastoid fluid, the remaining aerated spaces are clear. Mild atrophy and chronic white matter change. Atherosclerotic intracranial calcification. Bilateral lens replacements. IMPRESSION:? No acute intracranial process. Rate 63 AL 200 QRSd 94 QT 434 QTc 445 --[place]-- P 46 QRS -32 T -14 SINUS RHYTHM LEFT AXIS DEVIATION INCOMPLETE RIGHT BUNDLE BRANCH BLOCK DELAYED PRECORDIAL R/S TRANSITION LEFT VENTRICULAR HYPERTROPHY BORDERLINE T WAVE ABNORMALITY- ANT/INF LEADS BASELINE ARTIFACT- I, II, III, AVR, AVL, AVF, V4-V6 BORDERLINE ECG COMPARED TO ECG 08/17/2023 11:14:45 INCOMPLETE RIGHT BUNDLE-BRANCH BLOCK NOW PRESENT Electronically Signed On 10-13-2023 14:49:30 SOCIAL SECRETARY by Jasvir Steele D.O. Review of Systems Review of Systems: Near-syncope Constitutional: Constitutional: Denies chills, Denies fatigue, Denies fever(s), Denies frequent falls, Denies malaise, Denies poor appetite and Denies weakness Eyes: Eyes: Denies change in vision ENT: Denies dysphagia, Denies vertigo, Denies dizziness and Denies odynophagia Cardiovascular: Cardiovascular: Denies chest pain, Reports lightheadedness and Reports other (Near-syncope) Respiratory: Respirato
[2023-10-14] MEDS: oxyCODONE/ACETAMINOPHEN (*CRX) 10-325 MG TABLET 1 TAB PO ×4 (01:34→19:41)
--- NOTE | 2023-10-14 04:04 | PC.NURSE ---
Pt was brought up to the floor in excruciating pain. Pt stated that she has been asking for pain medicine for past 3 hours. Pt was very shaky, crying in pain and her systolic BP was very high. This RN immediately called the provider and received orders to resume pt's home pain medication. Order carried out and pt received her pain medication within 10 minutes. Pt's pain improved, as well as BP, and she became less anxious. Pt is A&O x4, able to make needs known. Pt reported that she has been experiencing episodes of nearly passing out for past 3 weeks. Pt is on telemetry, hx of Afib. All questions answered, pt was instructed how to use the call light and to call for help when needed. Pt verbalized understanding. No further questions.
[2023-10-14] MEDS: LEVOTHYROXINE SODIUM 88 MCG TABLET PO (06:39)
--- NOTE | 2023-10-14 07:53 | PM.IMPN ---
Progress Note: A&P Assessment and Plan (1) Near syncope: Code(s): R55 - Syncope and collapse Status: Acute (2) Bradycardia: Code(s): R00.1 - Bradycardia, unspecified Status: Acute (3) Paroxysmal A-fib: Code(s): I48.0 - Paroxysmal atrial fibrillation Status: Acute (4) Heart failure with preserved ejection fraction: Qualifiers: Heart failure chronicity: chronic Qualified Code(s): I50.32 - Chronic diastolic (congestive) heart failure Code(s): I50.30 - Unspecified diastolic (congestive) heart failure Status: Acute (5) Obstructive sleep apnea: Code(s): G47.33 - Obstructive sleep apnea (adult) (pediatric) Status: Acute (6) Coronary artery disease: Qualifiers: Associated angina: without angina Coronary Disease-Associated Artery/Lesion type: [place] artery [place] vs. transplanted heart: [place] heart Qualified Code(s): I25.10 - Atherosclerotic heart disease of [place] coronary artery without angina pectoris Code(s): I25.10 - Atherosclerotic heart disease of [place] coronary artery without angina pectoris Status: Acute (7) Hypothyroid: Qualifiers: Hypothyroidism type: unspecified Qualified Code(s): E03.9 - Hypothyroidism, unspecified Code(s): E03.9 - Hypothyroidism, unspecified Status: Chronic (8) Type 2 diabetes mellitus without complications: Qualifiers: Diabetes mellitus medical terminologist insulin use: without medical terminologist use Qualified Code(s): E11.9 - Type 2 diabetes mellitus without complications Code(s): E11.9 - Type 2 diabetes mellitus without complications Status: Acute Plan Near Syncope -Cardiology consulted -benefit from event monitor O/P -CT Head negative for any acute issues -Orthostatic pending -carotid Doppler ordered -TSH pending Hypomagnesemia -1.4 POA -replenished 2gram -mag daily Bradycardia -overnight -likely secondary to ELVIRA -Recommend sleep study Chronic diastolic HF w/preserved EF -BNP WNL -cardiology consulted -Pervious Echo 03/2023: LVEF 65-70, trace MR, mild TR, and mild pulmonary HTN -EKG: SR with BBB -Optimize [place] inhibitors, beta-blockers, ARNI -Daily weight. -Optimize blood pressure less than 130/80. -Fall risk assessment. Paroxysmal AFIB -Resumed eliquis ELVIRA -Recommend sleep study O/P Diabetes -Accu-Cheks a.c. HS -sliding scale insulin -lipid panel pending -Diabetic diet -consult to dietitian -encourage lifestyle modifications and weight loss -Optimize [place] inhibitors and statins. -Watch for hypoglycemia/hypoglycemic protocol ordered Hypothyroidism -resume levothyroxine -TSH pending Code status: Full code per patient DVT prophylaxis: Eliquis Stress ulcer prophylaxis: Protonix 40 daily PT/OT notes: PT/OT patient said she didn't need it Disposition: Patient continues admission for near syncope, cardiology following will likely need event monitor O/P at discharge patient states she lives home alone and uses a walker plans to return home. -Patient's previous records reviewed on admission -ER notes reviewed in detail on admission -discussed all findings and current treatment plan with patient/Family/POA -Consultations reviewed for recommendations -Patient's disposition for safe discharge discussed with caseworker protective services Dictation performed by [employer] direct speech recognition software, therefore social media marketer variants and typographical errors may occur. Time Spent With Patient Time with patient: 25 - 35 minutes Subjective Date/time seen: 10/14/23 07:53 Interval history: Chief Complaint: Near-syncope Narrative: This is an 78-year-old female with past medical history significant for atrial fibrillation rate controlled anticoagulated, type diabetes mellitus, COPD/asthma, are a, chronic pain, peripheral neuropathy, degenerative joint disease.? Patient presents to the emergency
[2023-10-14] MEDS: AMIODARONE HCL 200 MG TABLET PO (08:53)
[2023-10-14] MEDS: VALSARTAN 160 MG TABLET 320 MG PO (08:54)
[2023-10-14] MEDS: CYANOCOBALAMIN 1,000 MCG TABLET 1000 MCG PO (08:54)
[2023-10-14] MEDS: PANTOPRAZOLE 40 MG TABLET PO (08:54)
[2023-10-14] MEDS: predniSONE 10 MG TABLET PO (08:54)
[2023-10-14] MEDS: APIXABAN 5 MG TABLET PO ×2 (08:54→19:42)
[2023-10-14] MEDS: MONTELUKAST SODIUM 10 MG TABLET PO (08:54)
[2023-10-14] MEDS: FOLIC ACID 1 MG TABLET 3 MG PO (08:54)
[2023-10-14] MEDS: SODIUM CHLORIDE 1 GM TABLET PO ×2 (08:54→17:09)
[2023-10-14] MEDS: MAGNESIUM OXIDE 400 MG TABLET PO (08:54)
[2023-10-14] MEDS: LORATADINE 10 MG TABLET PO (08:54)
[2023-10-14] MEDS: NEBIVOLOL HCL 5 MG TABLET PO (08:54)
[2023-10-14 09:05] LABS: Glucose Point of Care 105 mg/dl (65-105)
[2023-10-14 09:27] LABS: Cholesterol 129 mg/dL (0-200); HDL Direct 56 mg/dL; Triglycerides 119 mg/dL (<150)
--- NOTE | 2023-10-14 09:32 | PM.CNCAR ---
Assessment and Plan Assessment and plan (1) Near syncope: Code(s): R55 - Syncope and collapse Status: Acute Assessment and Plan: Chest CTA shows no evidence of PE, ulcerative plaque in the posterior aspect of the aortic arch. Head CT with no acute findings. EKG with sinus rhythm. Tele thus far with sinus rhythm, some sinus bradycardia with heart rate in the 50s overnight, but no significant bradyarrhythmias. TSH level is pending. Carotid duplex is pending. Agree with checking orthostatic vital signs. Recommend 30 day event monitor upon discharge (order already placed). She has an appointment in our office next week. Will have patient keep that appointment for close outpatient follow up. Continue tele monitoring while patient remains in the hospital. (2) Bradycardia: Code(s): R00.1 - Bradycardia, unspecified Status: Acute Assessment and Plan: Tele thus far with sinus rhythm, some sinus bradycardia with heart rate in the 50s overnight, but no significant bradyarrhythmias. Recommend to continue home Amiodarone and Nebivolol at this time. Recommend 30 day event monitor upon discharge (order already placed). She has an appointment in our office next week. Will have patient keep that appointment for close outpatient follow up. Continue tele monitoring while patient remains in the hospital. (3) Paroxysmal A-fib: Code(s): I48.0 - Paroxysmal atrial fibrillation Status: Acute Assessment and Plan: In sinus rhythm currently. Continue home PO Amiodarone and beta xavier. Continue Eliquis for anticoagulation. (4) Abnormal finding on CT scan: Code(s): R93.89 - Abnormal findings on diagnostic imaging of other specified body structures Status: Acute Assessment and Plan: Chest CTA shows ulcerative plaque in the posterior aspect of the aortic arch. Continue ASA, statin. (5) Coronary artery disease: Qualifiers: Coronary Disease-Associated Artery/Lesion type: [place] artery [place] vs. transplanted heart: [place] heart Associated angina: without angina Qualified Code(s): I25.10 - Atherosclerotic heart disease of [place] coronary artery without angina pectoris Code(s): I25.10 - Atherosclerotic heart disease of [place] coronary artery without angina pectoris Status: Acute Assessment and Plan: Stable. Continue ASA, statin, beta xavier. History of Present Illness History of Present Illness Consult date/time: 10/14/23 09:32 Requesting physician: Denis,Mae M.J., GRAPHICS COORDINATOR Consult reason: Other (Near syncope, bradycardia, event monitor) Reason For Visit: Near Syncope Narrative: We are consulted for near syncope, bradycardia, event monitor. This is an 78 year old female who follows with Dr. Pedraza in our office. She has a history of coronary artery disease, hypertension, paroxysmal atrial fibrillation. Patient reports that over the past 1.5 to 2 weeks, she has been having episodes of near syncope. She reports lightheadedness and darkening of vision. Has not lost consciousness yet. Episodes happen about 3 times a week or so. Not clearly associated with changes in body position. Has had one episode happen while sitting. Has had another episode happen while she was fixing her medication pills. No chest pain. ER workup shows negative troponin. Chest CTA shows no evidence of PE, ulcerative plaque in the posterior aspect of the aortic arch. Head CT with no acute findings. EKG with sinus rhythm. Tele thus far with sinus rhythm, some sinus bradycardia with heart rate in the 50s overnight, but no significant bradyarrhythmias. Review of Systems Review of Systems: All systems reviewed & are unremarkable except as noted in HPI and below (HPI) [facility] Past Medical History Medical History Anxiety Asthma Chronic anticoagulation Chronic hyponatremia Chronic pain syndrome Chronic, continuous use of opioids Coronary hieu
[2023-10-14 09:41] LABS: LDL Cholesterol Direct 51 mg/dL
[2023-10-14 10:00] LABS: Iron 36 ug/dL (37-170)
[2023-10-14 10:15] LABS: Percent Iron Saturation 7 % (20-50)
[2023-10-14] MEDS: MAGNESIUM SULF 2 GM/WATER 50ML 2 GM/50 ML BAG IVPB (10:45)
[2023-10-14 11:28] LABS: Basophils Absolute Auto 0.1 K/mm3 (0.0-0.1); Basophils Percent Auto 0.7 % (0.2-1.2); Eosinophils Absolute Auto 0.1 K/mm3 (0-0.3); Eosinophils Percent Auto 0.9 % (0-4.4); Hematocrit 32.2 % (37.0-47.0); Hemoglobin 10.2 g/dL (12.0-15.0); Immature Granulocyte Absolute 0.08 K/mm3 (0.00-0.031); Immature Granulocyte Percent A 0.7 % (0-0.5); Lymphocytes Absolute Auto 3.82 K/mm3 (0.9-3.2); Lymphocytes Percent Auto 34.1 % (18.3-44.2); Mean Corpuscular HGB Conc 31.7 g/dl (32-36); Mean Corpuscular Hemoglobin 27.2 pg (26-34); Mean Corpuscular Volume 85.9 fl (80-100); Mean Platelet Volume 10.2 fl (7.4-10.4); Monocytes Absolute Auto 0.8 K/mm3 (0.1-0.6); Monocytes Percent Auto 7.3 % (2.6-8.5); Neutrophils Absolute Auto 6.3 K/mm3 (1.3-6.7); Neutrophils Percent Auto 56.3 % (45.5-73.1); Platelet Count Result 402 k/mm3 (150-375); Red Blood Count 3.75 M/mm3 (4.2-5.4); Red Cell Distribution Width 14.8 % (11.5-14.5); White Blood Count 11.2 K/mm3 (4.5-10.0)
[2023-10-14 11:52] LABS: Anion Gap 6 mmol/L (8-16); Blood Urea Nitrogen 9 mg/dL (7-17); Carbon Dioxide 29 mmol/L (22-30); Chloride 98 mmol/L (98-107); Potassium 3.9 mmol/L (3.4-5.0); Sodium 133 mmol/L (137-145)
[2023-10-14 11:53] LABS: Alanine Aminotransferase 17 U/L (6-35); Albumin Level 3.7 g/dL (3.5-5.1); Alkaline Phosphatase 89 U/L (38-126); Aspartate Amino Transferase 28 U/L (14-36); Bilirubin,Total 1.1 mg/dL (0.2-1.3); Calcium 9.5 mg/dL (8.4-10.2); Estimated CRCL calculation 48 ml/min; Estimated Glomerular Filt Rate > 60; Glucose 109 mg/dL (65-110)
[2023-10-14 12:02] LABS: Glucose Point of Care 264 mg/dl (65-105)
[2023-10-14] MEDS: INSULIN ASPART (*BKC) 100 UNITS/ML SUB-Q ×2 (12:19→17:09)
--- NOTE | 2023-10-14 15:42 | PC.NURSE ---
On 10/14/23, the student, Jeaneth Yee, provided care and completed [facility] documentation on this patient. I have reviewed the student's documentation and agree with the findings.
[2023-10-14 16:16] LABS: Glucose Point of Care 277 mg/dl (65-105)
[2023-10-14] MEDS: ATORVASTATIN 40 MG TABLET PO (19:42)
[2023-10-14 21:42] LABS: Glucose Point of Care 204 mg/dl (65-105)
[2023-10-15] VITALS (17 sets, daily range): BP systolic 117–187; BP diastolic 41–124; PULSE 57–89; RESP 16–20; TEMP 36.2–36.9; O2SAT 98–100
[2023-10-15] MEDS: oxyCODONE/ACETAMINOPHEN (*CRX) 10-325 MG TABLET 1 TAB PO ×4 (01:39→20:19)
--- NOTE | 2023-10-15 04:19 | PCRCNOTE ---
Window of time for administration has passed. See next scheduled administration.
[2023-10-15] MEDS: LEVOTHYROXINE SODIUM 88 MCG TABLET PO (05:31)
[2023-10-15 06:31] LABS: Hematocrit 28.9 % (37.0-47.0); Hemoglobin 9.2 g/dL (12.0-15.0); Mean Corpuscular HGB Conc 31.8 g/dl (32-36); Mean Corpuscular Hemoglobin 27.3 pg (26-34); Mean Corpuscular Volume 85.8 fl (80-100); Mean Platelet Volume 9.6 fl (7.4-10.4); Platelet Count Result 386 k/mm3 (150-375); Red Blood Count 3.37 M/mm3 (4.2-5.4); Red Cell Distribution Width 14.6 % (11.5-14.5); White Blood Count 13.6 K/mm3 (4.5-10.0)
[2023-10-15 06:54] LABS: Alanine Aminotransferase 17 U/L (6-35); Albumin Level 3.6 g/dL (3.5-5.1); Alkaline Phosphatase 77 U/L (38-126); Anion Gap 6 mmol/L (8-16); Aspartate Amino Transferase 24 U/L (14-36); Blood Urea Nitrogen 9 mg/dL (7-17); Calcium 9.1 mg/dL (8.4-10.2); Carbon Dioxide 27 mmol/L (22-30); Chloride 97 mmol/L (98-107); Estimated CRCL calculation 47 ml/min; Estimated Glomerular Filt Rate > 60; Glucose 124 mg/dL (65-110); Magnesium 1.9 mg/dL (1.6-2.3); Potassium 3.5 mmol/L (3.4-5.0); Sodium 130 mmol/L (137-145)
[2023-10-15 07:41] LABS: Glucose Point of Care 104 mg/dl (65-105)
[2023-10-15] MEDS: MONTELUKAST SODIUM 10 MG TABLET PO (08:21)
[2023-10-15] MEDS: VALSARTAN 160 MG TABLET 320 MG PO (08:21)
[2023-10-15] MEDS: CYANOCOBALAMIN 1,000 MCG TABLET 1000 MCG PO (08:21)
[2023-10-15] MEDS: MAGNESIUM OXIDE 400 MG TABLET PO (08:21)
[2023-10-15] MEDS: FOLIC ACID 1 MG TABLET 3 MG PO (08:21)
[2023-10-15] MEDS: SODIUM CHLORIDE 1 GM TABLET PO ×2 (08:21→17:26)
[2023-10-15] MEDS: APIXABAN 5 MG TABLET PO ×2 (08:21→20:19)
[2023-10-15] MEDS: predniSONE 10 MG TABLET PO (08:22)
[2023-10-15] MEDS: LINACLOTIDE 145 MCG CAPSULE PO (08:22)
[2023-10-15] MEDS: NEBIVOLOL HCL 5 MG TABLET PO (08:22)
[2023-10-15] MEDS: PANTOPRAZOLE 40 MG TABLET PO (08:23)
[2023-10-15] MEDS: LORATADINE 10 MG TABLET PO (08:23)
[2023-10-15] MEDS: AMIODARONE HCL 200 MG TABLET PO (08:43)
[2023-10-15] MEDS: FLUTICASONE/SALMETEROL 115-21 MCG INHALER 1 PUFF 2 PUFF INHALATION ×2 (09:39→22:24)
[2023-10-15 11:17] LABS: Glucose Point of Care 241 mg/dl (65-105)
[2023-10-15] MEDS: INSULIN ASPART (*BKC) 100 UNITS/ML SUB-Q ×2 (12:18→17:25)
[2023-10-15] MEDS: busPIRone HCL 10 MG TABLET PO (13:30)
--- NOTE | 2023-10-15 15:29 | PM.IMPN ---
Progress Note: A&P Assessment and Plan (1) Near syncope: Code(s): R55 - Syncope and collapse Status: Acute Assessment and Plan: -Cardiology consulted -benefit from event monitor O/P -CT Head negative for any acute issues -Orthostatics negative. -carotid Doppler with right internal carotid >/= 70%, left internal carotid less than 50% stenosis -TSH within normal limits (2) Bradycardia: Code(s): R00.1 - Bradycardia, unspecified Status: Acute Assessment and Plan: -likely secondary to ELVIRA -Recommend sleep study -Cardiology recommending cardiac event monitor (3) Paroxysmal A-fib: Code(s): I48.0 - Paroxysmal atrial fibrillation Status: Acute (4) Heart failure with preserved ejection fraction: Qualifiers: Heart failure chronicity: chronic Qualified Code(s): I50.32 - Chronic diastolic (congestive) heart failure Code(s): I50.30 - Unspecified diastolic (congestive) heart failure Status: Acute Assessment and Plan: -cardiology consulted -Pervious Echo 03/2023: LVEF 65-70, trace MR, mild TR, and mild pulmonary HTN -EKG: SR with BBB -Daily weight. -Optimize blood pressure less than 130/80. -Fall risk assessment. (5) Obstructive sleep apnea: Code(s): G47.33 - Obstructive sleep apnea (adult) (pediatric) Status: Acute Assessment and Plan: -Recommend sleep study O/P (6) Coronary artery disease: Qualifiers: Coronary Disease-Associated Artery/Lesion type: [place] artery [place] vs. transplanted heart: [place] heart Associated angina: without angina Qualified Code(s): I25.10 - Atherosclerotic heart disease of [place] coronary artery without angina pectoris Code(s): I25.10 - Atherosclerotic heart disease of [place] coronary artery without angina pectoris Status: Acute Assessment and Plan: -Patient on aspirin and atorvastatin (7) Hypothyroid: Qualifiers: Hypothyroidism type: unspecified Qualified Code(s): E03.9 - Hypothyroidism, unspecified Code(s): E03.9 - Hypothyroidism, unspecified Status: Chronic Assessment and Plan: TSH within normal limits. Continue home medication. (8) Type 2 diabetes mellitus without complications: Qualifiers: Diabetes mellitus custodial insulin use: without custodial use Qualified Code(s): E11.9 - Type 2 diabetes mellitus without complications Code(s): E11.9 - Type 2 diabetes mellitus without complications Status: Acute Assessment and Plan: Insulin Lispro sliding scale, Accu-checks qAc and HS and Hold oral hypoglycemics Initiate hypoglycemic precautions Plan Paroxysmal AFIB -Resumed eliquis Diabetes -Accu-Cheks a.c. HS -sliding scale insulin -lipid panel pending -Diabetic diet -consult to dietitian -encourage lifestyle modifications and weight loss -Optimize [place] inhibitors and statins. -Watch for hypoglycemia/hypoglycemic protocol ordered Hypothyroidism -resume levothyroxine -TSH pending Code status: Full code per patient DVT prophylaxis: Eliquis Stress ulcer prophylaxis: Protonix 40 daily PT/OT notes: PT/OT patient said she didn't need it Disposition: Patient continues admission for near syncope, cardiology following will likely need event monitor O/P at discharge patient states she lives home alone and uses a walker plans to return home. -Patient's previous records reviewed on admission -ER notes reviewed in detail on admission -discussed all findings and current treatment plan with patient/Family/POA -Consultations reviewed for recommendations -Patient's disposition for safe discharge discussed with keycase assembler Dictation performed by [employer] direct speech recognition software, therefore implementation technician variants and typographical errors may occur. Subjective Date/time seen: 10/15/23 15:29 I
[2023-10-15 16:22] LABS: Glucose Point of Care 272 mg/dl (65-105)
[2023-10-15] MEDS: ATORVASTATIN 40 MG TABLET PO (20:19)
[2023-10-15 21:25] LABS: Glucose Point of Care 290 mg/dl (65-105)
[2023-10-16] VITALS (10 sets, daily range): BP systolic 138–172; BP diastolic 41–70; PULSE 64–79; RESP 16–20; TEMP 35.8–36.6; O2SAT 97–100
[2023-10-16] MEDS: oxyCODONE/ACETAMINOPHEN (*CRX) 10-325 MG TABLET 1 TAB PO ×3 (02:11→14:10)
[2023-10-16] MEDS: LEVOTHYROXINE SODIUM 88 MCG TABLET PO (05:34)
[2023-10-16] MEDS: LINACLOTIDE 145 MCG CAPSULE PO (05:34)
[2023-10-16] MEDS: FLUTICASONE/SALMETEROL 115-21 MCG INHALER 1 PUFF 2 PUFF INHALATION (06:59)
[2023-10-16] MEDS: NEBIVOLOL HCL 5 MG TABLET PO (08:15)
[2023-10-16] MEDS: FOLIC ACID 1 MG TABLET 3 MG PO (08:15)
[2023-10-16] MEDS: APIXABAN 5 MG TABLET PO (08:17)
[2023-10-16] MEDS: predniSONE 10 MG TABLET PO (08:17)
[2023-10-16] MEDS: MAGNESIUM OXIDE 400 MG TABLET PO (08:17)
[2023-10-16] MEDS: MONTELUKAST SODIUM 10 MG TABLET PO (08:17)
[2023-10-16] MEDS: LORATADINE 10 MG TABLET PO (08:17)
[2023-10-16] MEDS: CYANOCOBALAMIN 1,000 MCG TABLET 1000 MCG PO (08:17)
[2023-10-16] MEDS: VALSARTAN 160 MG TABLET 320 MG PO (08:17)
[2023-10-16] MEDS: MECLIZINE HCL 25 MG TABLET PO (08:17)
[2023-10-16] MEDS: SODIUM CHLORIDE 1 GM TABLET PO ×2 (08:17→17:05)
[2023-10-16] MEDS: AMIODARONE HCL 200 MG TABLET PO (08:17)
[2023-10-16] MEDS: PANTOPRAZOLE 40 MG TABLET PO (08:17)
[2023-10-16 08:18] LABS: Glucose Point of Care 130 mg/dl (65-105)
[2023-10-16] MEDS: INSULIN ASPART (*BKC) 100 UNITS/ML SUB-Q ×3 (08:23→17:05)
[2023-10-16 08:41] LABS: Hematocrit 28.6 % (37.0-47.0); Hemoglobin 9.2 g/dL (12.0-15.0); Mean Corpuscular HGB Conc 32.2 g/dl (32-36); Mean Corpuscular Hemoglobin 26.8 pg (26-34); Mean Corpuscular Volume 83.4 fl (80-100); Mean Platelet Volume 9.3 fl (7.4-10.4); Platelet Count Result 394 k/mm3 (150-375); Red Blood Count 3.43 M/mm3 (4.2-5.4); Red Cell Distribution Width 14.6 % (11.5-14.5); White Blood Count 13.1 K/mm3 (4.5-10.0)
[2023-10-16 08:51] LABS: Alanine Aminotransferase 18 U/L (6-35); Albumin Level 3.6 g/dL (3.5-5.1); Alkaline Phosphatase 76 U/L (38-126); Anion Gap 9 mmol/L (8-16); Aspartate Amino Transferase 25 U/L (14-36); Blood Urea Nitrogen 10 mg/dL (7-17); Calcium 9.1 mg/dL (8.4-10.2); Carbon Dioxide 26 mmol/L (22-30); Chloride 94 mmol/L (98-107); Estimated CRCL calculation 47 ml/min; Estimated Glomerular Filt Rate > 60; Glucose 136 mg/dL (65-110); Magnesium 1.6 mg/dL (1.6-2.3); Potassium 3.8 mmol/L (3.4-5.0); Sodium 129 mmol/L (137-145)
[2023-10-16 11:48] LABS: Glucose Point of Care 325 mg/dl (65-105)
--- NOTE | 2023-10-16 15:00 | PM.DS ---
DS: Admitting Diagnosis Discharge Date 10/16/23 Admitting Diagnosis Near syncope DS: Discharge Diagnosis Discharge Diagnosis (1) Near syncope: Code(s): R55 - Syncope and collapse Status: Acute (2) Bradycardia: Code(s): R00.1 - Bradycardia, unspecified Status: Acute (3) Paroxysmal A-fib: Code(s): I48.0 - Paroxysmal atrial fibrillation Status: Acute (4) Heart failure with preserved ejection fraction: Qualifiers: Heart failure chronicity: chronic Qualified Code(s): I50.32 - Chronic diastolic (congestive) heart failure Code(s): I50.30 - Unspecified diastolic (congestive) heart failure Status: Acute (5) Obstructive sleep apnea: Code(s): G47.33 - Obstructive sleep apnea (adult) (pediatric) Status: Acute (6) Coronary artery disease: Qualifiers: Coronary Disease-Associated Artery/Lesion type: [place] artery [place] vs. transplanted heart: [place] heart Associated angina: without angina Qualified Code(s): I25.10 - Atherosclerotic heart disease of [place] coronary artery without angina pectoris Code(s): I25.10 - Atherosclerotic heart disease of [place] coronary artery without angina pectoris Status: Acute (7) Hypothyroid: Qualifiers: Hypothyroidism type: unspecified Qualified Code(s): E03.9 - Hypothyroidism, unspecified Code(s): E03.9 - Hypothyroidism, unspecified Status: Chronic (8) Type 2 diabetes mellitus without complications: Qualifiers: Diabetes mellitus fpc insulin use: without protective services officer use Qualified Code(s): E11.9 - Type 2 diabetes mellitus without complications Code(s): E11.9 - Type 2 diabetes mellitus without complications Status: Acute DS: Summary Hospital Course Hospital Course: This is an 78-year-old female with a past medical history of AFib, heart disease, hyperlipidemia, hypothyroidism, RA, osteoarthritis the presents to the ED on 09/11/24 due near-syncope event. Preliminary workup was nonrevealing. CTA of the chest negative for acute pulmonary embolism. She was found to have bradycardia and Cardiology was consulted. Cardiology recommended an event monitor. Orthostatics negative, TSH within normal limits. Patient did have carotid Doppler performed with greater than or equal to 70% right ICA and less than 50% left ICA. Patient bradycardia likely due to near syncopal event and will be discharged on cardiac event monitor. Cardiology has discharged her from their service with an outpatient follow-up. Patient is stable and has no repeat instances. Her labs and vital signs are stable and she is medically clear for discharge at this time. Time Spent with Patient Time attestation: Total time spent providing and/or coordinating discharge services: Exam Narrative: GENERAL: Comfortable, no acute distress HENMT: moist mucous membranes EYES: EOM intact b/l NECK: no lymphadenopathy RESPIRATORY: clear to auscultation CARDIO: RRR GI: soft, nontender, bowel sounds present SKIN: no rashes EXTREMITIES: no edema, redness or tenderness DS: Data Data Completed and Pending Labs on day of discharge: Labs from last 24 hours 10/16/23 10/16/23 10/16/23 11:45 08:22 08:08 WBC 13.1 H RBC 3.43 L Hgb 9.2 L Hct 28.6 L MCV 83.4 MCH 26.8 MCHC 32.2 RDW 14.6 H Plt Count 394 H MPV 9.3 Sodium 129 L Potassium 3.8 Chloride 94 L Carbon Dioxide 26 Anion Gap 9 BUN 10 Creatinine 0.70 Estim Creat Clear Calc 47 Estimated GFR > 60 Glucose 136 H POC Capillary Glucose 325 H 130 H Calcium 9.1 Magnesium 1.6 Total Bilirubin 1.0 AST 25 ALT 18 Alkaline Phosphatase 76 Total Protein 6.0 L Albumin 3.6 10/15/23 10/15/23 20:26 16:17 WBC RBC Hgb Hct MCV MCH MCHC RDW Plt Count MPV Sodium Potassium Chloride Carbon Dioxide Anion Gap B
[2023-10-16 17:03] LABS: Glucose Point of Care 250 mg/dl (65-105)
== END 2023-10-16 18:05 | disposition home or self-care (01) | DRG 312 ==
LOC: ANHED 23:04 → ANH3MEDSUR 10-14 00:35
PROVIDERS: Nurse Practitioner Family; Admitting Provider Internal Medicine; Emergency Provider Emergency Medicine; PCP Family Medicine; Visit Provider Internal Medicine Critical Care Medicine
DX: R55 Syncope and collapse (principal); I48.20 Chronic atrial fibrillation, unspecified; R00.1 Bradycardia, unspecified; I11.0 Hypertensive heart disease with heart failure; I70.1 Atherosclerosis of renal artery; I65.21 Occlusion and stenosis of right carotid artery; E83.42 Hypomagnesemia; E11.42 Type 2 diabetes mellitus with diabetic polyneuropathy; E53.8 Deficiency of other specified B group vitamins; E55.9 Vitamin D deficiency, unspecified; E78.5 Hyperlipidemia, unspecified; K58.9 Irritable bowel syndrome, unspecified; K44.9 Diaphragmatic hernia without obstruction or gangrene; G89.29 Other chronic pain; F41.9 Anxiety disorder, unspecified; F32.A Depression, unspecified; Z79.82 Long term (current) use of aspirin; Z79.891 Long term (current) use of opiate analgesic; Z86.718 Personal history of other venous thrombosis and embolism; Z87.11 Personal history of peptic ulcer disease
CPT/HCPCS: 36415; 70450; 71275; 80053; 80061; 81003; 82948; 83540; 83550; 83735; 84443; 84484; 85025; 85027; 93005; 93880; 94640; 96374; 99285; A9270; G0378; J1815; J3475; J7512; Q9967

== ENCOUNTER 2023-10-18 16:49 | Inpatient (IN) | payer MEDICARE, BC, SELFPAY ==
--- NOTE | ~2023-10-18 | XR_ITS ---
EXAMINATION: XR abdomen gastric tube insert INDICATION: Nasogastric tube insertion TECHNIQUE: Portable AP KUB-[id number] at 2359 hours COMPARISON: CT from the same date FINDINGS: The nasogastric tube is in the stomach. There are dilated loops of small bowel in the midab domen. There is elevation of the right hemidiaphragm. Cholecystectomy clips are noted. Contrast from earlier CT partially opacifies the urinary tract. IMPRESSION: 1. Nasogastric tube in the stomach. Reviewed, dictated and finalized at location F. CULTURE TEACHER
--- NOTE | ~2023-10-18 | CT_ITS ---
EXAMINATION: CT abdomen pelvis w con DATE: 10/18/2023 21:31 INDICATION: abd pain, vomiting TECHNIQUE: Computed tomography (CT) of the abdomen and pelvis was performed with 100 mL Omnipaque-350 intravenous contrast. Automated exposure control and iterative reconstruction technique were employe d. The dose-length product was 701.66 mGy-cm. COMPARISON: 09/11/2023. FINDINGS: Lower thorax: Large hiatal hernia. Aortic, mitral, and coronary artery calcifications. Linear scarrin g, atelectasis, and reticular opacities in the right lower lobe. Liver: Simple right lobe cyst at the tip of the liver. 9 mm likely cyst or hemangioma in the right lo be. Biliary/Gallbladder: Gallbladder is absent. Prominent ducts, likely secondary to cholecystectomy. Pancreas: Atrophy. Spleen: Normal. Adrenals:No mass. Kidneys: No suspicious mass, obstructing stone, or hydronephrosis. Left renal atrophy. Bilateral aristides ical scarring. GI tract: Closed obstruction of a portion of mid small bowel in the mid abdomen, with hypoenhancement of the bowel wall significant significant mesenteric edema, interloop and adjacent fluid, and likely areas of pneumatosis, with proximal small bowel dilation and distal small bowel decompression. No la rge bowel dilation. Large hiatal hernia. Antral wall edema. Normal appendix. Mesentery/Peritoneum: Mild perihepatic and paracolic gutter fluid. Retroperitoneum: No mass. Pelvis: Absent uterus. Moderate free fluid in the pelvis. Soft Tissues: Soft tissues and body wall unremarkable. Bones: No acute osseous finding. IMPRESSION: Left lower lobe opacities may represent postinfectious changes. Moderate antral gastritis. Closed-loop small bowel obstruction with evidence of bowel ischemia. Small volume ascites. No pneumoperitoneum. Results reported telephonically to Dr. Mejia by Dr. Whitaker at 9:55 PM on 10/18/2023. Reviewed, dictated and finalized at location K. R SUPERVISOR
--- NOTE | ~2023-10-18 | US_ITS ---
Duplex Sonography of the right upper extremity: Indication: Swelling Sagittal and transverse B-mode images as well as color-flow imaging were performed on the right inter nal jugular, subclavian, axillary, and proximal/mid brachial veins. B-mode examination was done with out and with compression in the transverse plane. There is good visualization of the internal jugula r, subclavian, axillary, and proximal/mid brachial veins. Normal flow was seen on color-flow imaging. Normal compressibility was demonstrated. Impression: No evidence of deep vein thrombosis involving the right internal jugular subclavian, axil florinda, or proximal/mid brachial veins. Basilic vein and cephalic vein are not visualized/assessed. Reviewed, dictated and finalized at location M. STANT MANAGER AIRSIDE OPERATIONS Impression: No evidence of deep vein thrombosis involving the right internal ju gular subclavian, axillary, or proximal/mid brachial veins. Basilic vein and cephalic vein are not visualized/assessed.
[2023-10-18 16:49] VITALS: BP 163/66; PULSE 72; RESP 16; TEMP 36.2; O2SAT 98
[2023-10-18 16:53] VITALS: BP 163/66; PULSE 71; RESP 16; TEMP 36.2; O2SAT 98
--- NOTE | 2023-10-18 18:44 | ED.ABDPAIN ---
HPI - Abdominal Pain General Chief Complaint: Abdominal Pain Stated Complaint: ABD PAIN Time Seen by Provider: 10/18/23 18:34 Source: patient Mode of arrival: ambulatory Limitations: no limitations History of Present Illness HPI narrative: This is an 78-year-old female that presents to the emergency department for abdominal pain and bloating. Ongoing since yesterday. Associated with nausea and vomiting. Denies fevers, dysuria, or diarrhea. Related Data Home Medications Medication Instructions Recorded Confirmed aspirin 81 mg tablet,delayed 81 mg PO DAILY 07/29/19 10/14/23 release (Adult Low Dose Aspirin) nitroglycerin 0.4 mg sublingual 0.4 mg sublingual Q5M PRN Chest 07/29/19 10/14/23 tablet Pain cetirizine 10 mg capsule 10 mg PO DAILY 03/15/23 10/14/23 ezetimibe 10 mg tablet 10 mg PO DAILY 03/15/23 10/14/23 folic acid 1 mg tablet 3 mg PO DAILY 03/15/23 10/14/23 albuterol sulfate 90 mcg/actuation 2 puff inhalation QID PRN 06/22/23 10/14/23 aerosol inhaler Shortness Of Breath Or Wheezing buspirone 10 mg tablet 10 mg PO BID PRN Anxiety 06/22/23 10/14/23 furosemide 40 mg tablet 20 mg PO DAILY 06/22/23 10/14/23 methotrexate sodium 2.5 mg tablet 2.5 mg PO WEEKLY 06/22/23 10/14/23 linaclotide 145 mcg capsule 145 mcg PO DAILY 08/14/23 10/14/23 (Linzess) prednisone 10 mg tablet 10 mg PO DAILY 08/14/23 10/14/23 amiodarone 200 mg tablet (Pacerone) 200 mg PO DAILY 09/11/23 10/14/23 Allergies Allergy/AdvReac Type Severity Reaction Status Date / Time No Known Allergies Allergy Verified 10/13/23 20:00 Review of Systems Review of Systems: CONSTITUTIONAL: Denies fever GASTROINTESTINAL: Reports abdominal pain, nausea, vomiting. Denies diarrhea. GENITOURINARY: Denies dysuria All systems reviewed & are unremarkable except as noted in HPI and below PMFSH Past Medical History Medical History Anxiety Asthma Chronic anticoagulation Chronic hyponatremia Chronic pain syndrome Chronic, continuous use of opioids Coronary artery disease Angioplasty of a diagonal lesion in 01/2018. Cardiac catheterization 06/2019 showed patent coronary arteries. Deep venous thrombosis Degenerative joint disease involving multiple joints Depression Gastroesophageal reflux disease Heart failure with preserved ejection fraction Hiatal hernia Hyperlipidemia Hypertension Hypothyroidism Irritable bowel syndrome Obstructive sleep apnea Noncompliant with CPAP. Paroxysmal atrial fibrillation Peptic ulcer Peripheral neuropathy Pneumonia Rheumatoid arthritis Seasonal allergies Type 2 diabetes mellitus without complications Diet-controlled. Hemoglobin A1c was 5.7% on 01/24/2021. Surgical History Surgical History History of appendectomy History of arthroscopy of both shoulders History of cardiac catheterization Angioplasty of a diagonal stenosis 01/2018. Cardiac catheterization 06/2019 showed patent coronary arteries. History of carpal tunnel release History of cataract extraction History of cholecystectomy History of foot surgery History of hysterectomy History of phacoemulsification of cataract with intraocular lens implantation Family History Family History Grandparent Diabetes mellitus Father Acute myocardial infarction Diabetes mellitus Hypertension Mother Hypertension Diabetes mellitus Sibling Diabetes mellitus Hypertension Other Family history of cardiovascular disease Family history of malignant neoplasm of brain Social History Social History Social History: The patient lives in [place]. Her recently passed. 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 Lifelong nonsmoker. No alcohol or illicit substance abuse. Per patient, POA is Wild Price, friend. Caffeine-soda Smoking st
[2023-10-18] MEDS: ONDANSETRON INJ 4 MG/2 ML VIAL IV PUSH (19:10)
[2023-10-18] MEDS: PANTOPRAZOLE SODIUM IV 40 MG VIAL IV PUSH (19:11)
[2023-10-18] MEDS: MORPHINE SULFATE (*CRX) 4 MG/ML INJ IV PUSH ×2 (19:11→21:48)
[2023-10-18 19:14] LABS: Hematocrit 33.1 % (37.0-47.0); Hemoglobin 10.4 g/dL (12.0-15.0); Mean Corpuscular HGB Conc 31.4 g/dl (32-36); Mean Corpuscular Hemoglobin 26.3 pg (26-34); Mean Corpuscular Volume 83.6 fl (80-100); Mean Platelet Volume 9.8 fl (7.4-10.4); Platelet Count Result 507 k/mm3 (150-375); Red Blood Count 3.96 M/mm3 (4.2-5.4); Red Cell Distribution Width 14.8 % (11.5-14.5); White Blood Count 26.4 K/mm3 (4.5-10.0)
[2023-10-18 19:21] VITALS: BP 183/76; PULSE 62; RESP 20; O2SAT 99
[2023-10-18 19:49] LABS: Band Neutrophils Percent 1 % (0-6); Lymphocytes Absolute Manual 4.22 K/mm3 (1.1-4.5); Monocytes Absolute Manual 0.52 K/mm3 (0.1-0.90); Monocytes Percent Manual 2 % (3-9); Neutrophils Absolute Manual 21.64 K/mm3 (1.7-7.2); Neutrophils Percent Manual 81 % (46-73); Total Cells Counted 100
[2023-10-18 19:50] LABS: Platelet Estimate Increased (Adequate); Schistocytes None Seen (NORMAL)
[2023-10-18 19:51] LABS: Hypochromasia 1+ (NORMAL)
[2023-10-18 19:52] LABS: Anisocytosis 1+ (NORMAL)
[2023-10-18 20:26] LABS: Lactic Acid Reflex 1.2 mmol/L (0.7-2.0)
[2023-10-18 20:39] LABS: Appearance Urine Clear (Clear); Bilirubin Urine Negative (Negative); Blood Urine Negative (Negative); Color Urine Yellow (Yellow); Glucose Urine UA Negative (Negative); Ketones Urine Trace mg/dL (Negative); Leukocyte Esterase Ur Negative LEU/UL (Negative); Nitrate Urine Negative (Negative); Protein Urine Negative (Negative); Specific Grav Ur 1.013 (1.001-1.035); Urobilinogen Urine 0.2 mg/dL (<2.0)
[2023-10-18 20:47] LABS: Add Urine Microscopic? NO
[2023-10-18 20:54] LABS: Alanine Aminotransferase 17 U/L (6-35); Albumin Level 3.9 g/dL (3.5-5.1); Alkaline Phosphatase 72 U/L (38-126); Anion Gap 13 mmol/L (8-16); Aspartate Amino Transferase 31 U/L (14-36); Blood Urea Nitrogen 20 mg/dL (7-17); CRP 5.4 mg/dL (<1.0); Calcium 9.2 mg/dL (8.4-10.2); Carbon Dioxide 22 mmol/L (22-30); Chloride 92 mmol/L (98-107); Estimated Glomerular Filt Rate 60; Glucose 180 mg/dL (65-110); Lipase 23 U/L (23-300); Potassium 3.9 mmol/L (3.4-5.0); Sodium 127 mmol/L (137-145)
[2023-10-18] MEDS: diphenhydrAMINE HCl INJ 50 MG/ML VIAL 25 MG IV PUSH (21:13)
[2023-10-18] MEDS: SODIUM CHLORIDE 0.9% IV 500 ML 999 ML IV CONT (21:13)
[2023-10-18] MEDS: METOCLOPRAMIDE HCL INJ 10 MG/2 ML VIAL IV PUSH (21:13)
[2023-10-18 21:44] VITALS: BP 137/98; PULSE 65; RESP 18; O2SAT 94
[2023-10-19] VITALS (10 sets, daily range): BP systolic 102–163; BP diastolic 46–52; PULSE 79–96; RESP 11–20; TEMP 36.5–37.3; O2SAT 96–100; BMI 29.8; BMI 29.2
[2023-10-19] MEDS: SODIUM CHLORIDE 0.9% IV 1,000 ML 75 ML IV CONT (00:31)
[2023-10-19] MEDS: PIPERACILLIN/TAZ 2.25G/NS 50ML 2.25 GM/50 ML BAG IVPB ×2 (00:32→05:35)
--- NOTE | 2023-10-19 00:50 | ADMGEN ---
This patient, Aracely Spear, was admitted to [facility] Surg Room 321-02 at 0024. Patient/family oriented to hospital policies and general routines including ID bracelet, bed and alarms, visiting hours, pain management, procedures, bathroom and other care routines, personal items, smoking policy, room service/diet, and visiting hours. Information on how to activate the Rapid Response Team has been discussed. Patient/Family are encouraged to report perceived risks to care and to ask questions if they do not understand what they are told or what they should do.
[2023-10-19] MEDS: MORPHINE SULFATE (*CRX) 4 MG/ML INJ IV PUSH (02:12)
[2023-10-19] MEDS: ONDANSETRON INJ 4 MG/2 ML VIAL IV PUSH (02:13)
--- NOTE | 2023-10-19 04:47 | ECG_ITS ---
Measurements Intervals [place] Rate: 78 P: 66 DC: 186 QRS: -30 QRSD: 86 T: 45 QT: 387 QTc: 443 Interpretive Statements SINUS RHYTHM VOLTAGE CRITERIA FOR LVH, CONSIDER NORMAL VARIANT ST T-WAVE ABNORMALITY, CONSIDER ISCHEMIA Electronically Signed On 10-19-2023 11:40:13 BLUEPRINT READER by Jerrod Blackwell M.D.
[2023-10-19] MEDS: HYDROmorphone HCL INJ (*CRX) 1 MG/ML SYR IV PUSH ×3 (05:36→11:31)
--- NOTE | 2023-10-19 06:59 | PM.IMHP ---
H&P: HPI History of Present Illness Date/Time: 10/19/23 04:10 Chief Complaint: Abdominal pain Narrative: 78-year-old female with past medical history including paroxysmal atrial fibrillation, obstructive sleep apnea with noncompliance with CPAP therapy, type 2 diabetes mellitus, rheumatoid arthritis, hypothyroidism, prior appendectomy and cholecystectomy as well as hysterectomy as well as multiple other comorbidities who presented to the ER via EMS due to abdominal pain and bloating. Patient's abdominal pain symptoms started on the . The pain is worsened with eating. She has had significant amounts of nausea and a small amount of vomiting. She reports that she has not had a bowel movement since before her last hospitalization on . She is upset that she did not get more treatment for constipation during her last hospitalization. She has taken her usual bowel medications at home but denies taking anything extra or [id number] medications. She reports that she has not passed gas since her last hospitalization either. The patient is repetitively asking for pain medications due to abdominal pain. She reports that her abdominal pain has been a 10/10 in intensity since onset. She cries out even with lying the stethoscope slightly on her abdomen in the left periumbilical region. She does have positive bowel sounds and no obvious organomegaly. Patient is quite anxious regarding her pain i told her I would go and look at the orders that is previously been ordered and make adjustments. While discussing this the patient ass to roll over onto her right side when nursing staff helped her rolled to her right side she reported substernal chest pain that was also a 8/10 in intensity. She is not having any diaphoresis or increased nausea time onset of this chest discomfort. Stat EKG performed at that time demonstrated no acute changes. Stat labs were ordered at that time but phlebotomy has been having difficulty obtaining the patient's labs. Review of Systems Review of Systems: 12 systems were reviewed with pertinent positives and negatives per HPI. Except as documented in the HPI, all other systems were reviewed and are negative. [facility] Past Medical History Medical History (Updated 10/19/23 @ 08:45 by Louise Youngblood DO) Anxiety Asthma Chronic anticoagulation Chronic hyponatremia Chronic pain syndrome Chronic, continuous use of opioids Coronary artery disease Angioplasty of a diagonal lesion in 01/2018. Cardiac catheterization 06/2019 showed patent coronary arteries. Deep venous thrombosis Degenerative joint disease involving multiple joints Depression Folic acid deficiency Gastroesophageal reflux disease Heart failure with preserved ejection fraction Hiatal hernia Hyperlipidemia Hypertension Hypothyroidism Irritable bowel syndrome Obstructive sleep apnea Noncompliant with CPAP. Paroxysmal atrial fibrillation Peptic ulcer Peripheral neuropathy Pneumonia Renal artery stenosis Rheumatoid arthritis Seasonal allergies Type 2 diabetes mellitus Vitamin B 12 deficiency Vitamin D deficiency Surgical History Surgical History History of appendectomy History of arthroscopy of both shoulders History of cardiac catheterization Angioplasty of a diagonal stenosis 01/2018. Cardiac catheterization 06/2019 showed patent coronary arteries. History of carpal tunnel release History of cataract extraction History of cholecystectomy History of foot surgery History of hysterectomy History of phacoemulsification of cataract with intraocular lens implantation Family History Family History Grandparent Diabetes mellitus Father Acute myocardial infarction Diabetes mellitus Hypertension Mother Hypertension Diabetes mellitus Sibling Diabetes mellitus Hypertension Other Family history of cardiovascular disease F
[2023-10-19 09:00] LABS: Basophils Absolute Auto 0.1 K/mm3 (0.0-0.1); Basophils Percent Auto 0.4 % (0.2-1.2); Hematocrit 26.1 % (37.0-47.0); Hemoglobin 8.3 g/dL (12.0-15.0); Immature Granulocyte Absolute 0.22 K/mm3 (0.00-0.031); Immature Granulocyte Percent A 0.7 % (0-0.5); Lymphocytes Absolute Auto 4.36 K/mm3 (0.9-3.2); Lymphocytes Percent Auto 14.4 % (18.3-44.2); Mean Corpuscular HGB Conc 31.8 g/dl (32-36); Mean Corpuscular Hemoglobin 26.9 pg (26-34); Mean Corpuscular Volume 84.7 fl (80-100); Monocytes Absolute Auto 1.4 K/mm3 (0.1-0.6); Monocytes Percent Auto 4.6 % (2.6-8.5); Neutrophils Absolute Auto 24.2 K/mm3 (1.3-6.7); Neutrophils Percent Auto 79.9 % (45.5-73.1); Nucleated Red Blood Cells Perc 0.1 % (0.0-0.2); Platelet Count Result 494 k/mm3 (150-375); Red Blood Count 3.08 M/mm3 (4.2-5.4); Red Cell Distribution Width 15.2 % (11.5-14.5); White Blood Count 30.3 K/mm3 (4.5-10.0)
[2023-10-19] MEDS: LEVOTHYROXINE SODIUM INJ 100 MCG/5 ML VIAL 44 MCG IV PUSH (09:00)
[2023-10-19] MEDS: PANTOPRAZOLE SODIUM IV 40 MG VIAL IV PUSH ×2 (09:02→20:47)
[2023-10-19 09:10] LABS: Lactic Acid Reflex 3.4 mmol/L (0.7-2.0)
[2023-10-19 09:11] LABS: Alanine Aminotransferase 19 U/L (6-35); Albumin Level 3.6 g/dL (3.5-5.1); Alkaline Phosphatase 76 U/L (38-126); Anion Gap 15 mmol/L (8-16); Aspartate Amino Transferase 27 U/L (14-36); Bilirubin,Total 2.4 mg/dL (0.2-1.3); Blood Urea Nitrogen 23 mg/dL (7-17); Calcium 8.7 mg/dL (8.4-10.2); Carbon Dioxide 23 mmol/L (22-30); Chloride 93 mmol/L (98-107); Estimated Glomerular Filt Rate 43; Glucose 194 mg/dL (65-110); Sodium 131 mmol/L (137-145)
[2023-10-19 09:18] LABS: INR 1.4; Prothrombin Time 17.8 Seconds (11.1-14.7)
[2023-10-19 09:19] LABS: Anisocytosis 1+ (NORMAL); Large Platelets Present; Platelet Estimate Adequate (Adequate); Schistocytes None Seen (NORMAL)
[2023-10-19 09:22] LABS: Troponin I < 0.012 ng/mL (0.000-0.034)
--- NOTE | 2023-10-19 10:18 | WPDCN ---
Assessment and Plan Assessment and plan (1) SBO (small bowel obstruction): Code(s): K56.609 - Unspecified intestinal obstruction, unspecified as to partial versus complete obstruction Status: Acute Assessment and Plan: Patient has a closed loop small bowel obstruction on imaging. She has acute surgical abdomen will need to go to the operating room for emergent exploratory laparotomy and possible bowel resection. I did discuss possible admission to the intensive care unit and possible ventilator support after surgery with the patient. Also discussed this with her power of trademark attorney Wild, who is very close family friend. The patient has a daughter in [place] but does not have any contact with her. 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 It through our issues with bleeding problems then she may need infusion K-centra postoperatively or intraoperatively. (3) Atrial fibrillation with rapid ventricular response: Code(s): I48.91 - Unspecified atrial fibrillation Status: Acute Assessment and Plan: Currently rate controlled and stable. (4) CHF (congestive heart failure): Code(s): I50.9 - Heart failure, unspecified Status: Acute Assessment and Plan: Does not appear to be decompensated at this time. Continue medications. Hospitalist service on board to aid with medical management during this hospitalization. Her district resource officer is here at [facility] and can consult the district resource officer if needed. (5) Rheumatoid arthritis: Qualifiers: Rheumatoid arthritis location: hand Rheumatoid factor presence: unspecified presence Laterality: bilateral Qualified Code(s): M06.9 - Rheumatoid arthritis, unspecified Code(s): M06.9 - Rheumatoid arthritis, unspecified Status: Chronic Assessment and Plan: Longstanding and stable. He is on room toward medications as well as 10mg of prednisone daily. HPI Data of Consult Date/Time: 10/19/23 10:18 Requesting Physician: Louise Youngblood DO Primary Care Provider: Neli Moura DO Consult Narrative Reason for consult: Small bowel obstruction and abdominal pain Narrative: Aracely Spear is a 78 year old female who was actually discharged from [facility] earlier this week for atrial fibrillation. She was started on Eliquis for blood thinners. Over the past 24hours she has developed worsening abdominal pain and distension. White blood cell count was elevated to 26,000. CT scan abdomen pelvis showed a closed loop small bowel obstruction perforation or free air in the abdomen. There was some suggestion there was some ischemia of the mucosa. Patient was hemodynamically stable and lactic acid level is 1.2. Her last dose of Eliquis was about 24hours ago per the patient. Today her moderately severe in the epigastric region. He is awake and alert. She has not tachycardic and blood pressure is stable. Nasogastric tube is in place. Output is nonbloody. Other chronic conditions she has includes toward rheumatoid arthritis, COPD, and hypertension Review of Systems Review of Systems: The remainder of the review of systems to include constitutional, HEENT, cardiovascular, respiratory, GI, , integumentary, musculoskeletal, endocrine, immunologic, hematologic, psychiatric, and neurologic are all negative except for which is mentioned above in the HPI. [facility] Past Medical History Medical History (Updated 10/19/23 @ 08:45 by Louise Youngblood DO) Anxiety Asthma Chronic anticoagulation Chronic hyponatremia Chronic pain syndrome Chronic, continuous use of opioids Coronary artery disease Angioplasty of a diagonal lesion in 01/2018. Cardiac catheterizat
--- NOTE | 2023-10-19 10:56 | PM.IMPN ---
Progress Note: A&P Assessment and Plan (1) SBO (small bowel obstruction): Code(s): K56.609 - Unspecified intestinal obstruction, unspecified as to partial versus complete obstruction Status: Acute Assessment and Plan: Patient has closed loop small-bowel obstruction with evidence of bowel ischemia. General surgery has been consulted. Patient is NPO. Continue IV fluid hydration but will decrease rate to 75 mL an hour. Protonix IV b.i.d. -- Gastritis on CT scan. Will continue p.r.n. Zofran for nausea. NG was is been continued Patient is on antibiotic therapy pursed surgical recommendations. Elevated white blood cell count --> 26.4, 30.3 10/19/22 Emergent exploratory laparotomy and possible bowel resection. In general surgery does mention patient may need ICU care postoperatively. (2) Chronic anticoagulation: Code(s): Z79.01 - shelter (current) use of anticoagulants Status: Chronic Assessment and Plan: Due to hx of A-Fib Eliquis on hold for surgery. (3) Atypical chest pain: Code(s): R07.89 - Other chest pain Status: Acute Assessment and Plan: Patient does have chronic pain, large hiatal hernia and anxiety all of which could cause her atypical chest pain. EKG with no acute changes, troponin within normal limits (4) Chronic hyponatremia: Code(s): E87.1 - Hypo-osmolality and hyponatremia Status: Chronic Assessment and Plan: Stable. Continue to monitor (5) Paroxysmal A-fib: Code(s): I48.0 - Paroxysmal atrial fibrillation Status: Acute Assessment and Plan: Patient's Eliquis on hold for possible surgery. Patient currently rate controlled. SCDs for DVT prophylaxis. (6) Hypothyroidism: Qualifiers: Hypothyroidism type: unspecified Qualified Code(s): E03.9 - Hypothyroidism, unspecified Code(s): E03.9 - Hypothyroidism, unspecified Status: Acute Assessment and Plan: Most recent TSH is within normal limits (7) Chronic pain syndrome: Code(s): G89.4 - Chronic pain syndrome Status: Acute Assessment and Plan: Analgesics. (8) Gastritis: Qualifiers: Gastritis type: unspecified gastritis Chronicity: chronic Gastritis bleeding: without bleeding Qualified Code(s): K29.50 - Unspecified chronic gastritis without bleeding Code(s): K29.70 - Gastritis, unspecified, without bleeding Status: Acute Assessment and Plan: Protonix IV b.i.d. (9) Therapeutic opioid induced constipation: Code(s): K59.03 - Drug induced constipation; T40.2X5A - Adverse effect of other opioids, initial encounter Status: Chronic Subjective Date/time seen: 10/19/23 10:56 Interval history: Patient continues to have abdominal pain. When I enter the room patient is sitting on her side with her knees up to her abdomen clutching her stomach. Patient states that the pain has not subsided. She recently got IV pain medication in hopes that this will work soon. She states that yesterday prior to coming to the hospital she had a bowel movement. She denies passing any gas since she has been in the hospital. She denies any nausea and vomiting. Patient's abdomen is noted to be distended and diffusely tender. NG tube in place and suctioning out dark liquid material. States that there is no history of previous small-bowel obstruction. Exam Narrative: GENERAL: Comfortable, no acute distress HENMT: NG tube in place and suctioning dark liquid substance EYES: EOM intact b/l NECK: no lymphadenopathy RESPIRATORY: clear to auscultation CARDIO: RRR GI: diffuse tenderness, hypoactive bowel sounds, distension SKIN: no rashes EXTREMITIES: no edema, redness or tenderness Objective Data Vital Signs Vital Signs: Vital Signs - 24 hr 10/18/23 16:49 10/18/23 16:53 10/18/23 19:21 Temperature 97.2 F L
[2023-10-19] MEDS: PIPERACILLN/TAZ 3.375GM/NS50ML 3.375 GM/50 ML BAG IVPB ×3 (11:31→23:46)
--- NOTE | 2023-10-19 11:46 | WPDANESEPPF ---
Anes - Initial Pre Proc Eval Procedure: Operation Date: 10/19/23 12:00 Proposed Procedures p Exploratory Laparotomy, Pos Bowel Resec - Rosendo Moore MD Date/Time: 10/19/23 11:46 Surgeon: Louise Youngblood DO Pre Op Diagnosis: SBO Patient Data Age: 78 Gender: F Height: 1.47 m Weight: 63.6 kg Last Vital Signs Temp 36.6 C 10/19/23 06:00 Pulse 81 10/19/23 06:00 Resp 20 10/19/23 06:00 BP 113/52 L 10/19/23 06:00 Pulse Ox 100 10/19/23 06:00 O2 Del Method Room Air 10/19/23 00:35 Allergies Allergy/AdvReac Type Severity Reaction Status Date / Time No Known Allergies Allergy Verified 10/13/23 20:00 Home Medications Medication Instructions Recorded Confirmed Type aspirin 81 mg tablet,delayed 81 mg PO DAILY 07/29/19 10/19/23 History release (Adult Low Dose Aspirin) nitroglycerin 0.4 mg sublingual 0.4 mg sublingual Q5M PRN Chest 07/29/19 10/19/23 History tablet Pain sodium chloride 1 gram tablet 1 g PO BID #30 tabs 12/02/22 10/19/23 Rx cetirizine 10 mg capsule 10 mg PO DAILY 03/15/23 10/19/23 History ezetimibe 10 mg tablet 10 mg PO DAILY 03/15/23 10/19/23 History folic acid 1 mg tablet 3 mg PO DAILY 03/15/23 10/19/23 History apixaban 5 mg tablet (Eliquis) 5 mg PO Q12HR #60 tabs 03/20/23 10/19/23 Rx magnesium oxide 400 mg (241.3 mg 400 mg PO QAM #30 tabs 03/20/23 10/19/23 Rx magnesium) tablet oxycodone-acetaminophen 10 mg-325 1 tablet PO Q6H PRN Pain (Scale 03/20/23 10/19/23 Rx mg tablet Score 4-6) #12 tabs atorvastatin 40 mg tablet 40 mg PO QHS #90 tabs 04/01/23 10/19/23 Rx cyanocobalamin (vitamin B-12) 1,000 mcg PO QAM #90 tabs 04/01/23 10/19/23 Rx 1,000 mcg tablet (Vitamin B-12) montelukast 10 mg tablet 10 mg PO DAILY #90 tabs 04/01/23 10/19/23 Rx nebivolol 5 mg tablet (Bystolic) 5 mg PO DAILY htn #30 tabs 04/15/23 10/19/23 Rx albuterol sulfate 90 mcg/actuation 2 puff inhalation QID PRN 06/22/23 10/19/23 History aerosol inhaler Shortness Of Breath Or Wheezing buspirone 10 mg tablet 10 mg PO BID PRN Anxiety 06/22/23 10/19/23 History furosemide 40 mg tablet 20 mg PO DAILY 06/22/23 10/19/23 History methotrexate sodium 2.5 mg tablet 2.5 mg PO WEEKLY 06/22/23 10/19/23 History ergocalciferol (vitamin D2) 1,250 1,250 mcg PO WEEKLY #13 caps 07/18/23 10/19/23 Rx mcg (50,000 unit) capsule fluticasone 250 mcg-salmeterol 50 1 inh inhalation Q12H #60 ea 07/18/23 10/19/23 Rx mcg/dose blistr powdr for inhalation (Advair Diskus) levothyroxine 88 mcg tablet 88 mcg PO QAM #90 tabs 07/18/23 10/19/23 Rx meclizine 25 mg tablet 25 mg PO TID PRN dizziness #30 tabs 07/18/23 10/19/23 Rx linaclotide 145 mcg capsule 145 mcg PO DAILY 08/14/23 10/19/23 History (Linzess) prednisone 10 mg tablet 10 mg PO DAILY 08/14/23 10/19/23 History pantoprazole 40 mg tablet,delayed 40 mg PO Q12HR 1 month #60 tabs 08/18/23 10/19/23 Rx release valsartan 160 mg tablet (Diovan) 320 mg PO DAILY 1 month #60 tabs 08/18/23 10/19/23 Rx amiodarone 200 mg tablet (Pacerone) 200 mg PO DAILY 09/11/23 10/19/23 History fluticasone 250 mcg-salmeterol 50 250 inh inhalation Q12H 10/19/23 10/19/23 History mcg/dose blistr powdr for inhalation (Wixela Inhub) Laboratory Tests 10/18/23 10/18/23 10/18/23 19:00 20:08 20:08 WBC 26.4 H K/mm3 (4.5-10.0) RBC 3.96 L M/mm3 (4.2-5.4) Hgb 10.4 L g/dL (12.0-15.0) Hct 33.1 L % (37.0-47.0) MCV 83.6 fl (80-100) MCH 26.3 pg (26-34) MCHC 31.4 L g/dl (32-36) RDW 14.8 H % (11.5-14.5) Plt Count 507 H k/mm3 (150-375) MPV 9.8 fl (7.4-10.4) Immature Gran % (Auto) Not Reportable Neut % (Auto) Not Reportable Lymph % (Auto) Not Reportable [place] % (Auto) Not Reportable Eos % (Auto) Not Reportable Baso % (Auto) Not Reportable Lymph # (Auto) Not Reportable [place] # (Auto) Not Reportab
--- NOTE | 2023-10-19 11:51 | WPDHPUPDATE1 ---
History and Physical Update Update Date/Time: 10/19/23 11:51 History and Physical has been reviewed, including an updated exam of the patient. There are NO changes in the patient's condition. Risks, benefits, and alternatives have been discussed and questions answered. Patient agrees to proceed with procedure.
[2023-10-19 11:58] LABS: Reflex Lactic Acid Yes or No Add Lactic
[2023-10-19] MEDS: LACTATED RINGERS 1,000 ML 30 ML IV CONT (12:00)
--- NOTE | 2023-10-19 12:50 | PC.NURSE ---
This RN was informed patient will be transfering to ICU-6 from PACU. This RN called report to Alannah ARCINIEGA. All patient belongings including glasses, dentures and hearing aids were taken to patients new room, ICU-6.
[2023-10-19] MEDS: LIDO 1%/EPINEPHRINE 1:100,000 50 ML VIAL 30 ML INFILTRATE (13:23)
[2023-10-19] MEDS: BUPivacaine HCL 0.5% PF 30 ML VIAL INFILTRATE (13:30)
[2023-10-19] MEDS: fentaNYL CITRATE INJ (*CRX) 100 MCG/2 ML VIAL 25 MCG IV PUSH (14:02)
--- NOTE | 2023-10-19 14:09 | W.PM.PROC2 ---
Procedure Note - Detailed Date of Procedure 10/19/23 Pre-op Diagnosis SBO Post-op Diagnosis Other (SBO, Strangulated small bowel (mid jejunum) secondary to pelvic adhesions) Procedure Performed Exploratory laparotomy with segmental mid jejunal small bowel resection with [id number]-[id number] stapled anti peristaltic jejunal anastomosis Surgeon Rosendo Moore MD Consulting Solution Manager Edd Torres, SHELLIE Anesthesia General Indications Patient is a 78-year-old female who was actually admitted [facility] earlier in the week for new onset atrial fibrillation with rapid ventricular rate. She was controlled placed on systemic anticoagulation with Eliquis. She presented to the emergency room with a one-day history of worsening abdominal pain and abdominal bloating and nausea. Emergency room [place] [address] scan abdomen pelvis showed a cyst closed loop small bowel obstruction. No perforation or free air was seen. She presents now for emergent exploratory laparotomy and small-bowel resection of strangulated small bowel. Findings The patient is single pelvic adhesion causing a twisting of the small bowel on a portion of his mesentery resulting in a strangulation of a 100cm segment of mid jejunum. There is no perforation of the small bowel. After the resection of the necrotic segment I measured approximately 220 of remaining healthy small bowel. Description of Procedure After informed consent was obtained patient brought to the operating room she was placed supine position and general endotracheal anesthesia was administered. A Toro catheter was placed to decompress the bladder. A nasogastric tube was already in place. A time-out was then performed correctly identifying the patient as well as procedure to be performed. She was already on scheduled IV antibiotics. I then made a midline incision starting just above the umbilicus in the lower epigastric region extending it for about 3 to 4 cm below the umbilicus. Dissection was then carried down through the subcutaneous tissue electrocautery into the midline fascia was encountered. I divided the midline fascia just above the umbilicus into the abdomen. Immediately upon entering the abdomen bloody ascites fluid drained from the abdomen. I then opened the fascia to mesh ellipse of the skin incision. A [place] retractor was placed to aid with exposure. In the midportion of the abdomen with appeared to be the midportion of the jejunum was strangulated small bowel with necrosis but no evidence of perforation. I was able to eviscerate the the viable small bowel and identified a single adhesion between an epiploic appendage of the sigmoid colon and peritoneum causing a closed loop small bowel obstruction. I then divided this adhesion and release the a loop of bowel. I was then able to identify where the small bowel became viable proximal to the chronic segment and made a defect through the mesentery in this region with electrocautery. I then used a BENNY 75 stapler to divide the small bowel at this point. Then went distal to the area where the bowel appeared to be came viable again. This was in the distal jejunum and I made a defect through the mesentery in this area the electrocautery and divided this distal jejunum with another reload to the GI 75 stapler. Then the mesentery between these 2 staple lines was divided utilizing the LigaSure energy device I then measured much small bowel and resected and was approximately 100cm of mid jejunum. It was sent to pathology for examination. I then reassess the proximal small bowel there was another small area that appeared to be a little ischemic at the staple line. I then decided to resect a small portion of the jejunum and defect through the mesentery approximately 6 to 8 cm proximal to the staple line. A reload to the adjacent physis was then used to divide small bowel in this area and I was much happier with the obvious viability of the small bow
--- NOTE | 2023-10-19 14:18 | WPDCNINT ---
Assessment and Plan Assessment and plan (1) Sepsis: Code(s): A41.9 - Sepsis, unspecified organism Status: Acute Assessment and Plan: Blood cultures are pending Continue Zosyn Continue IV fluids Patient groan chronic steroids for rheumatoid arthritis. Will start stress dose hydrocortisone (2) Ischemia, bowel: Code(s): K55.9 - Vascular disorder of intestine, unspecified Status: Acute Assessment and Plan: Status post bowel resection and exploratory laparotomy NG in Continue NPO Management per General surgery Continues antibiotics as above (3) SBO (small bowel obstruction): Code(s): K56.609 - Unspecified intestinal obstruction, unspecified as to partial versus complete obstruction Status: Acute Assessment and Plan: Status post exploratory laparotomy and bowel resection NG tube in place npo (4) Paroxysmal A-fib: Code(s): I48.0 - Paroxysmal atrial fibrillation Status: Acute Assessment and Plan: Hold anticoagulation due to surgery Continue amiodarone May need IV amiodarone if goes into RVR Echocardiogram 04/06 Summary ? 1. Complete two-dimensional, color flow and Doppler transthoracic echocardiogram is performed. ? 2. Left ventricular chamber dimension is normal. ? 3. Left ventricular systolic function is normal, estimated at 65-70%. ? 4. There is no increased left ventricular wall thickness. ? 5. The left ventricular diastolic function is indeterminate. ? 6. Left atrial chamber dimension is mildly enlarged. ? 7. There is trace mitral valve regurgitation. ? 8. There is mild to moderate tricuspid valve regurgitation. ? 9. Mild pulmonary hypertension, estimated pulmonary arterial systolic pressure is 41 mmHg. (5) Obstructive sleep apnea: Code(s): G47.33 - Obstructive sleep apnea (adult) (pediatric) Status: Acute Assessment and Plan: Patient not compliant CPAP Continue monitoring in ICU (6) Anemia: Code(s): D64.9 - Anemia, unspecified Status: Acute Assessment and Plan: Patient had hemoglobin of 8.3 preop. She lost 300 mL of f blood was given 1 unit of PRBC Check CBC now and serially Transfuse more if needed Repeat coags (7) Hyponatremia: Code(s): E87.1 - Hypo-osmolality and hyponatremia Status: Acute Assessment and Plan: Chronic sensorium is better than her past levels LR Monitor (8) ANASTACIA (acute kidney injury): Code(s): N17.9 - Acute kidney failure, unspecified Status: Resolved Assessment and Plan: Mild elevation of creatinine this morning. 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 CT scan of the abdomen showed IMPRESSION:? Left lower lobe opacities may represent postinfectious changes.? Moderate antral gastritis.? Closed-loop small bowel obstruction with evidence of bowel ischemia.? Small volume ascites. No pneumoperitoneum. Patient was diagnosed with SBO and general surgery was consulted. Patient's symptoms worsened and patient was taken to operating where she underwent exploratory laparotomy and resection of small bowel for ischemia. Patient is now being admitted to ICU postoperatively for further evaluation management. As per report from anesthesia patient review 1200 mL fluid, 1 u
--- NOTE | 2023-10-19 14:39 | SUR.PHASEI ---
BS was 200, MD Brunner aware. No new orders at this time
[2023-10-19] MEDS: LACTATED RINGERS 1,000 ML 100 ML IV CONT (15:03)
[2023-10-19] MEDS: HYDROCORTISONE SODIUM SUCCINATE 100 MG/2 ML VIAL IV PUSH ×2 (15:03→21:00)
--- NOTE | 2023-10-19 15:05 | PC.NURSE ---
Pt to ICU-6 from PACU. All belongings moved from 321. Here to monitor prolonged QTC per Dr. Moore. Dr. Black at bedside to assess, orders placed by physician
[2023-10-19] MEDS: HYDROmorphone HCL INJ (*CRX) 1 MG/ML SYR 0.5 MG IV PUSH ×2 (15:12→19:10)
[2023-10-19 15:17] LABS: Hematocrit 32.1 % (37.0-47.0); Hemoglobin 10.2 g/dL (12.0-15.0); Mean Corpuscular HGB Conc 31.8 g/dl (32-36); Mean Corpuscular Hemoglobin 27.4 pg (26-34); Mean Corpuscular Volume 86.3 fl (80-100); Mean Platelet Volume 9.5 fl (7.4-10.4); Platelet Count Result 409 k/mm3 (150-375); Red Blood Count 3.72 M/mm3 (4.2-5.4); Red Cell Distribution Width 15.8 % (11.5-14.5); White Blood Count 24.6 K/mm3 (4.5-10.0)
[2023-10-19 15:28] LABS: INR 1.4; Prothrombin Time 18.2 Seconds (11.1-14.7)
[2023-10-19 15:29] LABS: Lactic Acid 3.9 mmol/L (0.7-2.0); Partial Thromboplastin Time 33.2 SECONDS (22.3-36.8)
[2023-10-19 15:32] LABS: Alanine Aminotransferase 21 U/L (6-35); Albumin Level 3.2 g/dL (3.5-5.1); Alkaline Phosphatase 69 U/L (38-126); Anion Gap 13 mmol/L (8-16); Aspartate Amino Transferase 31 U/L (14-36); Bilirubin,Total 2.8 mg/dL (0.2-1.3); Blood Urea Nitrogen 26 mg/dL (7-17); Calcium 8.2 mg/dL (8.4-10.2); Carbon Dioxide 19 mmol/L (22-30); Chloride 99 mmol/L (98-107); Estimated Glomerular Filt Rate 43; Glucose 223 mg/dL (65-110); Magnesium 1.5 mg/dL (1.6-2.3); Potassium 3.6 mmol/L (3.4-5.0); Sodium 131 mmol/L (137-145)
[2023-10-19] MEDS: SODIUM CHLORIDE 0.9% IV 500 ML IV CONT (17:37)
[2023-10-19 18:19] LABS: Glucose Point of Care 227 mg/dl (65-105)
[2023-10-19] MEDS: INSULIN ASPART (*BKC) 100 UNITS/ML SUB-Q (18:26)
[2023-10-19] MEDS: MAGNESIUM SULF 2 GM/WATER 50ML 2 GM/50 ML BAG IVPB (18:28)
[2023-10-19] MEDS: POTASSIUM CHLORIDE INJ 40 MEQ in SODIUM CHLORIDE 0.9% IV 500 ML 130 MEQ IVPB (18:28)
[2023-10-19] MEDS: ALBUMIN HUMAN 5% 250 ML IV CONT ×2 (19:11→23:48)
[2023-10-19] MEDS: FLUTICASONE/SALMETEROL 115-21 MCG INHALER 1 PUFF 2 PUFF INHALATION (20:48)
[2023-10-19 20:57] LABS: Hematocrit 26.8 % (37.0-47.0); Hemoglobin 8.7 g/dL (12.0-15.0); Mean Corpuscular HGB Conc 32.5 g/dl (32-36); Mean Corpuscular Hemoglobin 27.4 pg (26-34); Mean Corpuscular Volume 84.5 fl (80-100); Mean Platelet Volume 9.5 fl (7.4-10.4); Platelet Count Result 343 k/mm3 (150-375); Red Blood Count 3.17 M/mm3 (4.2-5.4); Red Cell Distribution Width 15.7 % (11.5-14.5); White Blood Count 21.3 K/mm3 (4.5-10.0)
[2023-10-20] VITALS (22 sets, daily range): BP systolic 106–183; BP diastolic 41–77; PULSE 76–90; RESP 16–24; TEMP 36.1–37.2; O2SAT 9–100; BMI 29.2
[2023-10-20] MEDS: INSULIN ASPART (*BKC) 100 UNITS/ML SUB-Q (00:04)
[2023-10-20 00:10] LABS: Glucose Point of Care 245 mg/dl (65-105)
[2023-10-20] MEDS: HYDROmorphone HCL INJ (*CRX) 1 MG/ML SYR 0.5 MG IV PUSH ×4 (00:10→10:51)
[2023-10-20] MEDS: LACTATED RINGERS 1,000 ML 100 ML IV CONT (02:39)
[2023-10-20 03:45] LABS: Basophils Absolute Auto 0.1 K/mm3 (0.0-0.1); Basophils Percent Auto 0.3 % (0.2-1.2); Eosinophils Absolute Auto 0.1 K/mm3 (0-0.3); Eosinophils Percent Auto 0.7 % (0-4.4); Hematocrit 23.8 % (37.0-47.0); Hemoglobin 7.8 g/dL (12.0-15.0); Immature Granulocyte Absolute 0.12 K/mm3 (0.00-0.031); Immature Granulocyte Percent A 0.6 % (0-0.5); Lymphocytes Absolute Auto 2.73 K/mm3 (0.9-3.2); Lymphocytes Percent Auto 14.2 % (18.3-44.2); Mean Corpuscular HGB Conc 32.8 g/dl (32-36); Mean Corpuscular Hemoglobin 27.7 pg (26-34); Mean Corpuscular Volume 84.4 fl (80-100); Mean Platelet Volume 9.5 fl (7.4-10.4); Monocytes Absolute Auto 1.2 K/mm3 (0.1-0.6); Monocytes Percent Auto 6.4 % (2.6-8.5); Neutrophils Absolute Auto 14.9 K/mm3 (1.3-6.7); Neutrophils Percent Auto 77.8 % (45.5-73.1); Platelet Count Result 297 k/mm3 (150-375); Red Blood Count 2.82 M/mm3 (4.2-5.4); Red Cell Distribution Width 15.8 % (11.5-14.5); White Blood Count 19.2 K/mm3 (4.5-10.0)
[2023-10-20 04:01] LABS: Lactic Acid Reflex 1.9 mmol/L (0.7-2.0)
[2023-10-20 04:03] LABS: Alanine Aminotransferase 15 U/L (6-35); Alkaline Phosphatase 57 U/L (38-126); Anion Gap 10 mmol/L (8-16); Aspartate Amino Transferase 24 U/L (14-36); Bilirubin,Total 2.3 mg/dL (0.2-1.3); Blood Urea Nitrogen 22 mg/dL (7-17); Calcium 8.5 mg/dL (8.4-10.2); Carbon Dioxide 21 mmol/L (22-30); Chloride 105 mmol/L (98-107); Estimated Glomerular Filt Rate 53; Glucose 175 mg/dL (65-110); Magnesium 2.6 mg/dL (1.6-2.3); Phosphorus 2.5 mg/dL (2.5-4.5); Potassium 3.6 mmol/L (3.4-5.0); Sodium 136 mmol/L (137-145)
[2023-10-20] MEDS: PIPERACILLN/TAZ 3.375GM/NS50ML 3.375 GM/50 ML BAG IVPB ×3 (05:36→17:37)
[2023-10-20] MEDS: HYDROCORTISONE SODIUM SUCCINATE 100 MG/2 ML VIAL IV PUSH ×3 (05:36→21:28)
[2023-10-20] MEDS: LEVOTHYROXINE SODIUM INJ 100 MCG/5 ML VIAL 44 MCG IV PUSH (05:37)
[2023-10-20 05:50] LABS: Glucose Point of Care 172 mg/dl (65-105)
[2023-10-20] MEDS: AMIODARONE HCL 200 MG TABLET PO (08:25)
[2023-10-20] MEDS: POTASSIUM CHLORIDE INJ 40 MEQ in SODIUM CHLORIDE 0.9% IV 500 ML 130 MEQ IVPB (08:25)
[2023-10-20] MEDS: PANTOPRAZOLE SODIUM IV 40 MG VIAL IV PUSH ×2 (08:26→21:28)
--- NOTE | 2023-10-20 08:34 | WPDINTPN ---
Progress Note: A&P Assessment and Plan (1) Sepsis: Code(s): A41.9 - Sepsis, unspecified organism Status: Acute Assessment and Plan: Blood cultures are negative till now Continue Zosyn Will discontinue further iV fluids Patient on chronic steroids for rheumatoid arthritis. Will continue stress dose hydrocortisone for now (2) Ischemia, bowel: Code(s): K55.9 - Vascular disorder of intestine, unspecified Status: Acute Assessment and Plan: Status post bowel resection and exploratory laparotomy NG in Continue NPO Management per General surgery Continues antibiotics as above Continue pain control. 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 1. Complete two-dimensional, color flow and Doppler transthoracic echocardiogram is performed. ? 2. Left ventricular chamber dimension is normal. ? 3. Left ventricular systolic function is normal, estimated at 65-70%. ? 4. There is no increased left ventricular wall thickness. ? 5. The left ventricular diastolic function is indeterminate. ? 6. Left atrial chamber dimension is mildly enlarged. ? 7. There is trace mitral valve regurgitation. ? 8. There is mild to moderate tricuspid valve regurgitation. ? 9. Mild pulmonary hypertension, estimated pulmonary arterial systolic pressure is 41 mmHg. (5) Obstructive sleep apnea: Code(s): G47.33 - Obstructive sleep apnea (adult) (pediatric) Status: Acute Assessment and Plan: Patient not compliant CPAP Continue monitoring (6) Anemia: Code(s): D64.9 - Anemia, unspecified Status: Acute Assessment and Plan: Patient had hemoglobin of 8.3 preop. She lost 300 mL of blood was given 1 unit of PRBC Monitor CBC Transfuse more if needed Coags reviewed and do not need any intervention (7) Hyponatremia: Code(s): E87.1 - Hypo-osmolality and hyponatremia Status: Acute Assessment and Plan: Chronic hyponatremia and level is better than her past levels She received LR Monitor (8) ANASTCAIA (acute kidney injury): Code(s): N17.9 - Acute kidney failure, unspecified Status: Resolved Assessment and Plan: Mild elevation of creatinine2/4 morning. Likely secondary to sepsis IV fluids were given Creatinine has improved and normalized now Monitor urine output electrolytes and creatinine No stone or hydronephrosis on CT scan (9) Hypertension: Qualifiers: Hypertension type: unspecified Qualified Code(s): I10 - Essential (primary) hypertension Code(s): I10 - Essential (primary) hypertension Status: Chronic Assessment and Plan: Add p.r.n. labetalol and hydralazine P.o. valsartan and Bystolic is on hold Plan DVT prophylaxis -SCDs Stress ulcer prophylaxis -PPI Nutrition - npo. Diet per General surgery Code Status - Full Code Incentive spirometry PT OT consult Up in chair For out of ICU today Subjective Date/time seen: 10/20/23 Overnight events reviewed. Afebrile On room air Continues to have NG tube in place with minimal output Overnight she had elevated blood pressure She continues to complain of abdominal pain and rates it at 6/10 at this time but states that when the medication wears off the pain is 8 to 9/10 severe. She denies any nausea vomiting chest pain shortness a breath. Review of system is positive for chronic pain all over
[2023-10-20] MEDS: FLUTICASONE/SALMETEROL 115-21 MCG INHALER 1 PUFF 2 PUFF INHALATION ×2 (08:38→21:09)
[2023-10-20 09:40] LABS: Glucose Point of Care 200 mg/dl (65-105)
[2023-10-20 09:43] LABS: Hemoglobin A1C 6.7 % (<5.7)
[2023-10-20] MEDS: LABETALOL HCL INJ 100 MG/20 ML VIAL 20 MG IV PUSH (10:09)
[2023-10-20] MEDS: SODIUM CHLORIDE 0.9% IV 1,000 ML 10 ML IV CONT (11:42)
[2023-10-20] MEDS: HYDROmorphon 0.2MG/ML PCA(*CRX 6 MG/30 ML PCA.VIAL IV CONT (11:42)
[2023-10-20 11:57] LABS: Glucose Point of Care 182 mg/dl (65-105)
--- NOTE | 2023-10-20 12:35 | PC.NURSE ---
This patient, Aracely Spear, was transferred to [[id number]] on 10/20/23 at 1235. Personal belongings sent with patient. Report given to [Azucena RN and Donna RN]. Appropriate documentation sent with patient.
[2023-10-20] MEDS: hydrALAZINE HCL 20 MG/ML VIAL IV PUSH (13:25)
--- NOTE | 2023-10-20 13:31 | PCPTNOTE ---
Attempted PT evaluation, pt adamantly refused stating she was in too much pain. RN present for refusal. Will follow.
[2023-10-20] MEDS: diazePAM INJ (*CRX) 10 MG/2 ML SYRINGE 5 MG IV PUSH ×2 (13:32→21:23)
--- NOTE | 2023-10-20 13:36 | PCOTNOTE ---
Attempted OT evaluation, pt. adamantly refused both OT and PT stating she was in too much pain. RN present for refusal. Will follow.
--- NOTE | 2023-10-20 15:23 | P.PNIM_ITS ---
Progress Note: A&P Assessment and Plan (1) SBO (small bowel obstruction): Code(s): K56.609 - Unspecified intestinal obstruction, unspecified as to partial versus complete obstruction Status: Acute Assessment and Plan: Patient has closed loop small-bowel obstruction with evidence of bowel ischemia. * General surgery has been consulted. Patient is NPO. * Continue IV fluid hydration but will decrease rate to 75 mL an hour. * Protonix IV b.i.d. -- Gastritis on CT scan. * Will continue p.r.n. Zofran for nausea. * NG was is been continued * Patient is on antibiotic therapy pursed surgical recommendations. * Elevated white blood cell count --> 26.4, 30.3, 19.2 * 10/19/23 Emergent exploratory laparotomy and bowel resection. * Patient was transferred to ICU postoperatively to be monitored. She did have to receive 1 unit of PRBCs during surgery. * 10/20/23 Patient downgraded to the IMU. She is still in a pretty significant amount of pain and a pain pump has been placed. (2) Chronic anticoagulation: Code(s): Z79.01 - retirement (current) use of anticoagulants Status: Chronic Assessment and Plan: * Due to hx of A-Fib * Eliquis on hold for surgery. (3) Atypical chest pain: Code(s): R07.89 - Other chest pain Status: Acute Assessment and Plan: Patient does have chronic pain, large hiatal hernia and anxiety all of which could cause her atypical chest pain. * EKG with no acute changes, troponin within normal limits (4) Chronic hyponatremia: Code(s): E87.1 - Hypo-osmolality and hyponatremia Status: Chronic Assessment and Plan: * Stable. Continue to monitor (5) Paroxysmal A-fib: Code(s): I48.0 - Paroxysmal atrial fibrillation Status: Acute Assessment and Plan: * Patient's Eliquis on hold * Patient currently rate controlled. * SCDs for DVT prophylaxis. (6) Hypothyroidism: Qualifiers: Hypothyroidism type: unspecified Qualified Code(s): E03.9 - Hypo thyroidism, unspecified Code(s): E03.9 - Hypothyroidism, unspecified Status: Acute Assessment and Plan: Most recent TSH is within normal limits (7) Chronic pain syndrome: Code(s): G89.4 - Chronic pain syndrome Status: Acute Assessment and Plan: Analgesics. (8) Gastritis: Qualifiers: Gastritis type: unspecified gastritis Chronicity: chronic Gastritis bleeding: without bleeding Qualified Code(s): K29.50 - Unspecified chronic gastritis without bleeding Code(s): K29.70 - Gastritis, unspecified, without bleeding Status: Acute Assessment and Plan: Protonix IV b.i.d. (9) Therapeutic opioid induced constipation: Code(s): K59.03 - Drug induced constipation; T40.2X5A - Adverse effect of other opioids, initial encounter Status: Chronic Subjective Date/time seen: 10/20/23 15:23 Interval history: Patient in a pretty significant amount of pain when I saw her this afternoon. Patient being downgraded to IMU status. She denies passing any gas. was informed that patient is to be getting a pain pump due to her uncontrollable pain. She does have history of chronic pain and is on opioids at home. NG tube is still in place. Abdominal bandages dry and intact. Exam Narrative: GENERAL: Comfortable, no acute di
--- NOTE | 2023-10-20 15:23 | PM.IMPN ---
Progress Note: A&P Assessment and Plan (1) SBO (small bowel obstruction): Code(s): K56.609 - Unspecified intestinal obstruction, unspecified as to partial versus complete obstruction Status: Acute Assessment and Plan: Patient has closed loop small-bowel obstruction with evidence of bowel ischemia. General surgery has been consulted. Patient is NPO. Continue IV fluid hydration but will decrease rate to 75 mL an hour. Protonix IV b.i.d. -- Gastritis on CT scan. Will continue p.r.n. Zofran for nausea. NG was is been continued Patient is on antibiotic therapy pursed surgical recommendations. Elevated white blood cell count --> 26.4, 30.3, 19.2 10/19/23 Emergent exploratory laparotomy and bowel resection. Patient was transferred to ICU postoperatively to be monitored. She did have to receive 1 unit of PRBCs during surgery. 10/20/23 Patient downgraded to the IMU. She is still in a pretty significant amount of pain and a pain pump has been placed. (2) Chronic anticoagulation: Code(s): Z79.01 - snf (current) use of anticoagulants Status: Chronic Assessment and Plan: Due to hx of A-Fib Eliquis on hold for surgery. (3) Atypical chest pain: Code(s): R07.89 - Other chest pain Status: Acute Assessment and Plan: Patient does have chronic pain, large hiatal hernia and anxiety all of which could cause her atypical chest pain. EKG with no acute changes, troponin within normal limits (4) Chronic hyponatremia: Code(s): E87.1 - Hypo-osmolality and hyponatremia Status: Chronic Assessment and Plan: Stable. Continue to monitor (5) Paroxysmal A-fib: Code(s): I48.0 - Paroxysmal atrial fibrillation Status: Acute Assessment and Plan: Patient's Eliquis on hold Patient currently rate controlled. SCDs for DVT prophylaxis. (6) Hypothyroidism: Qualifiers: Hypothyroidism type: unspecified Qualified Code(s): E03.9 - Hypothyroidism, unspecified Code(s): E03.9 - Hypothyroidism, unspecified Status: Acute Assessment and Plan: Most recent TSH is within normal limits (7) Chronic pain syndrome: Code(s): G89.4 - Chronic pain syndrome Status: Acute Assessment and Plan: Analgesics. (8) Gastritis: Qualifiers: Gastritis type: unspecified gastritis Chronicity: chronic Gastritis bleeding: without bleeding Qualified Code(s): K29.50 - Unspecified chronic gastritis without bleeding Code(s): K29.70 - Gastritis, unspecified, without bleeding Status: Acute Assessment and Plan: Protonix IV b.i.d. (9) Therapeutic opioid induced constipation: Code(s): K59.03 - Drug induced constipation; T40.2X5A - Adverse effect of other opioids, initial encounter Status: Chronic Subjective Date/time seen: 10/20/23 15:23 Interval history: Patient in a pretty significant amount of pain when I saw her this afternoon. Patient being downgraded to IMU status. She denies passing any gas. was informed that patient is to be getting a pain pump due to her uncontrollable pain. She does have history of chronic pain and is on opioids at home. NG tube is still in place. Abdominal bandages dry and intact. Exam Narrative: GENERAL: Comfortable, no acute distress HENMT: NG tube in place and suctioning dark liquid substance EYES: EOM intact b/l NECK: no lymphadenopathy RESPIRATORY: clear to auscultation CARDIO: RRR GI: Extreme tenderness, hypoactive bowel sounds, distension SKIN: no rashes EXTREMITIES: no edema, redness or tenderness Objective Data Vital Signs Vital Signs: Vital Signs - 24 hr 10/19/23 16:15 10/19/23 18:00 10/19/23 20:00 Temperature 97.7 F Pulse Rate 81 82 Respiratory Rate 18 18 Blood Pressure 118/48 L 118/47 L Pulse Oximetry 96 97 98 Oxygen Delivery Room
--- NOTE | 2023-10-20 16:40 | PM.PNGS ---
Progress Note: A&P Assessment and Plan (1) SBO (small bowel obstruction): Code(s): K56.609 - Unspecified intestinal obstruction, unspecified as to partial versus complete obstruction Status: Acute Assessment and Plan: Patient is postop day 1 following exploratory laparotomy with segmental mid jejunal small bowel resection secondary to strangulated small bowel from pelvic adhesions. Awaiting return of bowel function. Continue NG tube decompression, bowel rest, and IV fluids. Switch to pain pump for better pain control. Will also add Valium IV push 5 mg q.12 hours. She did have her surgery while anticoagulated and her hemoglobin dropped slightly this morning to 7.8 from 8.7 last night. Will repeat labs again tomorrow morning and will transfuse as needed. Potassium 3.6 this morning and received 40 mEq IV KCL. Encourage trying to increase activity as tolerated and try sitting up this afternoon. PT and OT ordered. 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 Plan I have discussed the patient's case and plan of care with Dr. Moore. Subjective Subjective Date/Time Seen: 10/20/23 16:40 Post Op day: 1 (Exploratory laparotomy with segmental mid jejunal small bowel resection with [id number] stapled anti peristaltic jejunal anastomosis) Patient reports: no new complaints, no flatus, no bowel movement and afebrile Interval history: Patient is a 78-year-old female who was actually admitted [facility] earlier in the week for new onset atrial fibrillation with rapid ventricular rate.? She was controlled placed on systemic anticoagulation with Eliquis.? She presented to the emergency room with a one-day history of worsening abdominal pain and abdominal bloating and nausea.? ER workup showed leukocytosis and CT evidence of a closed loop small bowel obstruction.?She was taken to the OR yesterday as mentioned above. She was found to have strangulated small bowel secondary to a pelvic adhesion. She was transferred ICU a following surgery. She has remained stable overnight and was downgraded to IMU status today. She is now seen in the IMU. She has been switched to a pain pump due to poor pain control. She has an NG tube in place. Her only complaint is abdominal pain and points at the incision when describing her abdominal pain. She has an indwelling Toro catheter in place. Exam Const: General: comfortable and no acute distress Orientation/consciousness: patient oriented x3 GI: Auscultation: absent bowel sounds Other: Abdomen is mildly distended but soft with dressing over the incision that is dry and intact. She is diffusely tender. Objective Data Vital Signs Vital Signs: Vital Signs - 24 hr 10/19/23 18:00 10/19/23 20:00 10/19/23 20:48 Temperature 97.7 F Pulse Rate 81 82 Respiratory Rate 18 18 Blood Pressure 118/48 L 118/47 L Pulse Oximetry 97 98 97 Oxygen Delivery Room Air Fraction of Inspired Oxygen 10/19/23 22:00 10/20/23 00:00 10/20/23 02:00 Temperature 98.8 F 98.9 F Pulse Rate 82 86 87 Respiratory Rate 16 21 H Blood Pressure 136/52 L 146/55 H Pulse Oximetry 98 97 Oxygen Delivery Fraction of Inspired Oxygen 10/20/23 02:00 10/20/23 04:00 10/20/23 04:00 Temperature 98.8 F 97.0 F L Pulse Rate 86 80 87 Respiratory Rate 16 22 H Blood Pressure 136/72 166/73 H Pulse Oximetry 98 97 Oxygen Delivery Fraction of Inspired Oxygen 10/20/23 06:00 10/20/23 06:00 10/20/23 07:37 Temperature 98.8 F 98.9 F Pulse Rate 90 88 90 Respiratory Rate 20 20 Blood Pressure 168/60 H 181/66 H Pulse Oximetry 98 97 Oxygen Delivery Fraction of Inspired Oxygen 10/20/23 08:25 10/20/23 08:38 10/20/23 08:38 Temperature Pulse Rate 88 90 Respiratory Rate 18 Blood Pressure Pulse Oximetry 96 Oxygen Delivery Room Air Fraction of Ins
[2023-10-20 18:13] LABS: Glucose Point of Care 190 mg/dl (65-105)
[2023-10-21] VITALS (31 sets, daily range): BP systolic 148–182; BP diastolic 53–70; PULSE 72–89; RESP 16–22; TEMP 36.3–37; O2SAT 95–100
[2023-10-21] MEDS: PIPERACILLN/TAZ 3.375GM/NS50ML 3.375 GM/50 ML BAG IVPB ×4 (01:00→19:28)
[2023-10-21] MEDS: LABETALOL HCL INJ 100 MG/20 ML VIAL 20 MG IV PUSH ×2 (02:57→16:36)
[2023-10-21 03:06] LABS: Glucose Point of Care 186 mg/dl (65-105)
[2023-10-21 04:58] LABS: Hematocrit 23.1 % (37.0-47.0); Hemoglobin 7.3 g/dL (12.0-15.0); Mean Corpuscular HGB Conc 31.6 g/dl (32-36); Mean Corpuscular Volume 85.6 fl (80-100); Mean Platelet Volume 9.5 fl (7.4-10.4); Platelet Count Result 305 k/mm3 (150-375); Red Cell Distribution Width 15.9 % (11.5-14.5); White Blood Count 17.1 K/mm3 (4.5-10.0)
[2023-10-21 05:28] LABS: Alanine Aminotransferase 15 U/L (6-35); Albumin Level 2.7 g/dL (3.5-5.1); Alkaline Phosphatase 52 U/L (38-126); Anion Gap 8 mmol/L (8-16); Aspartate Amino Transferase 32 U/L (14-36); Bilirubin,Total 1.8 mg/dL (0.2-1.3); Blood Urea Nitrogen 23 mg/dL (7-17); Calcium 8.5 mg/dL (8.4-10.2); Carbon Dioxide 20 mmol/L (22-30); Chloride 107 mmol/L (98-107); Estimated Glomerular Filt Rate > 60; Glucose 178 mg/dL (65-110); Magnesium 2.2 mg/dL (1.6-2.3); Phosphorus 2.4 mg/dL (2.5-4.5); Potassium 3.8 mmol/L (3.4-5.0); Sodium 135 mmol/L (137-145)
[2023-10-21] MEDS: HYDROCORTISONE SODIUM SUCCINATE 100 MG/2 ML VIAL IV PUSH ×3 (06:31→22:02)
[2023-10-21] MEDS: LEVOTHYROXINE SODIUM INJ 100 MCG/5 ML VIAL 44 MCG IV PUSH (06:33)
--- NOTE | 2023-10-21 08:24 | PC.NURSE ---
CONTRACT ENGINEER infusing at 0.1mg or 0.5ml per demand. 3 mg or 15 ml total infused this shift. 7 ml remaining. Lisa Sterling RN witnessed pump history cleared. Pain well controlled. No adverse effects noted.
--- NOTE | 2023-10-21 08:51 | PCPTNOTE ---
Attempted PT evaluation. Pt adamantly refused to participate with therapy due to pain. Pt wishes for therapy orders to be canceled until her pain is better controlled. Attempted to encouraged/educated pt on benefits fo therapy, but pt continued to refuse. Hospitalist contacted and orders discharged at this time. RN aware.
[2023-10-21] MEDS: FLUTICASONE/SALMETEROL 115-21 MCG INHALER 1 PUFF 2 PUFF INHALATION ×2 (08:58→20:05)
--- NOTE | 2023-10-21 09:17 | PCOTNOTE ---
Pt. continues to adamantly refuse therapy services, due to pain. Pt wishes for therapy orders to be canceled until her pain is better controlled. Attempted to encouraged/educated pt on benefits fo therapy, but pt continued to refuse. Hospitalist contacted and orders discharged at this time. RN aware.
[2023-10-21] MEDS: AMIODARONE HCL 200 MG TABLET PO (09:55)
[2023-10-21] MEDS: diazePAM INJ (*CRX) 10 MG/2 ML SYRINGE 5 MG IV PUSH ×2 (09:57→20:11)
[2023-10-21] MEDS: PANTOPRAZOLE SODIUM IV 40 MG VIAL IV PUSH ×2 (09:57→20:10)
[2023-10-21 11:56] LABS: Glucose Point of Care 165 mg/dl (65-105)
--- NOTE | 2023-10-21 12:29 | P.PNIM_ITS ---
Progress Note: A&P Assessment and Plan (1) SBO (small bowel obstruction): Code(s): K56.609 - Unspecified intestinal obstruction, unspecified as to partial versus complete obstruction Status: Acute Assessment and Plan: Patient has closed loop small-bowel obstruction with evidence of bowel ischemia. * General surgery has been consulted. Patient is NPO. * Continue IV fluid hydration but will decrease rate to 75 mL an hour. * Protonix IV b.i.d. -- Gastritis on CT scan. * Will continue p.r.n. Zofran for nausea. * NG was is been continued * Patient is on antibiotic therapy pursed surgical recommendations. * Elevated white blood cell count --> 26.4, 30.3, 19.2,17.1 * 10/19/23 Emergent exploratory laparotomy and bowel resection. * Patient was transferred to ICU postoperatively to be monitored. She did have to receive 1 unit of PRBCs during surgery. * 10/20/23 Patient downgraded to the IMU. She is still in a pretty significant amount of pain and a pain pump has been placed. * 10/21/23 Pain is slightly better today. Declined PT/OT due to pain. Reconsult when pain is more controlled. (2) Chronic anticoagulation: Code(s): Z79.01 - alf (current) use of anticoagulants Status: Chronic Assessment and Plan: * Due to hx of A-Fib * Eliquis on hold. (3) Atypical chest pain: Code(s): R07.89 - Other chest pain Status: Acute Assessment and Plan: Patient does have chronic pain, large hiatal hernia and anxiety all of which could cause her atypical chest pain. * EKG with no acute changes, troponin within normal limits (4) Chronic hyponatremia: Code(s): E87.1 - Hypo-osmolality and hyponatremia Status: Chronic Assessment and Plan: * Stable. Continue to monitor (5) Paroxysmal A-fib: Code(s): I48.0 - Paroxysmal atrial fibrillation Status: Acute Assessment and Plan: * Patient's Eliquis on hold * Patient currently rate controlled. * SCDs for DVT prophylaxis. (6) Hypothyroidism: Qualifiers: Hypothyroidism type: unspecified Qualified Code(s): E03.9 - Hypothyroidism, unspecified Code(s): E03.9 - Hypothyroidism, unspecified Status: Acute Assessment and Plan: Most recent TSH is within normal limits (7) Chronic pain syndrome: Code(s): G89.4 - Chronic pain syndrome Status: Acute Assessment and Plan: Analgesics. (8) Gastritis: Qualifiers: Gastritis type: unspecified gastritis Chronicity: chronic Gastritis bleeding: without bleeding Qualified Code(s): K29.50 - Unspecified chronic gastritis without bleeding Code(s): K29.70 - Gastritis, unspecified, without bleeding Status: Acute Assessment and Plan: Protonix IV b.i.d. (9) Therapeutic opioid induced constipation: Code(s): K59.03 - Drug induced constipation; T40.2X5A - Adverse effect of other opioids, initial encounter Status: Chronic Subjective Date/time seen: 10/21/23 12:29 Interval history: patient continues to have severe abdominal pain. States it is somewhat improved from yesterday. Patient has declined to work with PT and OT due to her severe abdominal pain. Discussed with therapist and will re-consult them once patient is more appropriate. Patient has not passed any gas. Her NG is suctioning a clear frothy liquid
--- NOTE | 2023-10-21 12:29 | PM.IMPN ---
Progress Note: A&P Assessment and Plan (1) SBO (small bowel obstruction): Code(s): K56.609 - Unspecified intestinal obstruction, unspecified as to partial versus complete obstruction Status: Acute Assessment and Plan: Patient has closed loop small-bowel obstruction with evidence of bowel ischemia. General surgery has been consulted. Patient is NPO. Continue IV fluid hydration but will decrease rate to 75 mL an hour. Protonix IV b.i.d. -- Gastritis on CT scan. Will continue p.r.n. Zofran for nausea. NG was is been continued Patient is on antibiotic therapy pursed surgical recommendations. Elevated white blood cell count --> 26.4, 30.3, 19.2,17.1 10/19/23 Emergent exploratory laparotomy and bowel resection. Patient was transferred to ICU postoperatively to be monitored. She did have to receive 1 unit of PRBCs during surgery. 10/20/23 Patient downgraded to the IMU. She is still in a pretty significant amount of pain and a pain pump has been placed. 10/21/23 Pain is slightly better today. Declined PT/OT due to pain. Reconsult when pain is more controlled. 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 (3) Atypical chest pain: Code(s): R07.89 - Other chest pain Status: Acute Assessment and Plan: Patient does have chronic pain, large hiatal hernia and anxiety all of which could cause her atypical chest pain. EKG with no acute changes, troponin within normal limits (4) Chronic hyponatremia: Code(s): E87.1 - Hypo-osmolality and hyponatremia Status: Chronic Assessment and Plan: Stable. Continue to monitor (5) Paroxysmal A-fib: Code(s): I48.0 - Paroxysmal atrial fibrillation Status: Acute Assessment and Plan: Patient's Eliquis on hold Patient currently rate controlled. SCDs for DVT prophylaxis. (6) Hypothyroidism: Qualifiers: Hypothyroidism type: unspecified Qualified Code(s): E03.9 - Hypothyroidism, unspecified Code(s): E03.9 - Hypothyroidism, unspecified Status: Acute Assessment and Plan: Most recent TSH is within normal limits (7) Chronic pain syndrome: Code(s): G89.4 - Chronic pain syndrome Status: Acute Assessment and Plan: Analgesics. (8) Gastritis: Qualifiers: Gastritis type: unspecified gastritis Chronicity: chronic Gastritis bleeding: without bleeding Qualified Code(s): K29.50 - Unspecified chronic gastritis without bleeding Code(s): K29.70 - Gastritis, unspecified, without bleeding Status: Acute Assessment and Plan: Protonix IV b.i.d. (9) Therapeutic opioid induced constipation: Code(s): K59.03 - Drug induced constipation; T40.2X5A - Adverse effect of other opioids, initial encounter Status: Chronic Subjective Date/time seen: 10/21/23 12:29 Interval history: patient continues to have severe abdominal pain. States it is somewhat improved from yesterday. Patient has declined to work with PT and OT due to her severe abdominal pain. Discussed with therapist and will re-consult them once patient is more appropriate. Patient has not passed any gas. Her NG is suctioning a clear frothy liquid Exam Narrative: GENERAL: Comfortable, no acute distress HENMT: NG tube in place and suctioning clear liquid EYES: EOM intact b/l NECK: no lymphadenopathy RESPIRATORY: clear to auscultation CARDIO: RRR GI: Extreme tenderness, absent bowel sounds, dressing dry and intact SKIN: no rashes EXTREMITIES: no edema, redness or tenderness Objective Data Vital Signs Vital Signs: Vital Signs - 24 hr 10/20/23 13:19 10/20/23 14:02 10/20/23 15:01 Temperature 97.6 F 98.2 F 98.3 F Pulse Rate 79 80 79 Respiratory Rate
[2023-10-21] MEDS: HYDROmorphon 0.2MG/ML PCA(*CRX 6 MG/30 ML PCA.VIAL IV CONT (15:08)
[2023-10-21 18:23] LABS: Glucose Point of Care 170 mg/dl (65-105)
--- NOTE | 2023-10-21 19:40 | PC.NURSE ---
Shift handoff to DEMIAN Acevedo. BAND SAW OPERATOR pump intake 1.8 mg was used by pt, 3.5 ml waste for priming tube.
[2023-10-21] MEDS: SODIUM CHLORIDE 0.9% IV 1,000 ML 10 ML IV CONT (20:05)
[2023-10-21] MEDS: hydrALAZINE HCL 20 MG/ML VIAL IV PUSH (20:08)
[2023-10-21 23:39] LABS: Glucose Point of Care 199 mg/dl (65-105)
[2023-10-22] VITALS (20 sets, daily range): BP systolic 150–195; BP diastolic 48–79; PULSE 75–107; RESP 16–20; TEMP 36.4–36.8; O2SAT 86–100
[2023-10-22] MEDS: PIPERACILLN/TAZ 3.375GM/NS50ML 3.375 GM/50 ML BAG IVPB ×4 (00:32→17:06)
[2023-10-22] MEDS: HYDROCORTISONE SODIUM SUCCINATE 100 MG/2 ML VIAL IV PUSH (05:15)
[2023-10-22 05:31] LABS: Hematocrit 28.1 % (37.0-47.0); Hemoglobin 9.1 g/dL (12.0-15.0); Mean Corpuscular HGB Conc 32.4 g/dl (32-36); Mean Corpuscular Volume 86.5 fl (80-100); Mean Platelet Volume 9.6 fl (7.4-10.4); Platelet Count Result 319 k/mm3 (150-375); Red Blood Count 3.25 M/mm3 (4.2-5.4); Red Cell Distribution Width 15.9 % (11.5-14.5); White Blood Count 15.6 K/mm3 (4.5-10.0)
[2023-10-22 06:17] LABS: Alanine Aminotransferase 15 U/L (6-35); Albumin Level 2.9 g/dL (3.5-5.1); Alkaline Phosphatase 61 U/L (38-126); Anion Gap 7 mmol/L (8-16); Aspartate Amino Transferase 21 U/L (14-36); Bilirubin,Total 1.5 mg/dL (0.2-1.3); Blood Urea Nitrogen 26 mg/dL (7-17); Calcium 8.9 mg/dL (8.4-10.2); Carbon Dioxide 20 mmol/L (22-30); Chloride 109 mmol/L (98-107); Estimated Glomerular Filt Rate > 60; Glucose 192 mg/dL (65-110); Magnesium 2.1 mg/dL (1.6-2.3); Phosphorus 2.5 mg/dL (2.5-4.5); Sodium 136 mmol/L (137-145)
[2023-10-22] MEDS: LEVOTHYROXINE SODIUM INJ 100 MCG/5 ML VIAL 44 MCG IV PUSH (06:27)
[2023-10-22] MEDS: FLUTICASONE/SALMETEROL 115-21 MCG INHALER 1 PUFF 2 PUFF INHALATION ×2 (09:01→20:35)
[2023-10-22] MEDS: HYDROmorphon 0.2MG/ML PCA(*CRX 6 MG/30 ML PCA.VIAL IV CONT (10:13)
[2023-10-22] MEDS: POTASSIUM CHLORIDE INJ 40 MEQ in SODIUM CHLORIDE 0.9% IV 500 ML 130 MEQ IVPB ×2 (10:23→20:35)
[2023-10-22] MEDS: PANTOPRAZOLE SODIUM IV 40 MG VIAL IV PUSH ×2 (10:24→20:34)
[2023-10-22] MEDS: diazePAM INJ (*CRX) 10 MG/2 ML SYRINGE 5 MG IV PUSH ×2 (10:24→20:34)
[2023-10-22 12:21] LABS: Glucose Point of Care 199 mg/dl (65-105)
--- NOTE | 2023-10-22 14:15 | PM.PNGS ---
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 Still awaiting return of bowel function. Continue NG tube decompression and bowel rest. Will add maintenance IV fluids back while NPO with 20 meq of KCL. Will give an additional 40 meq KCL IV this evening and repeat labs again in the morning. Continue IV Zosyn. Will try weaning her off the TECHNICAL COMMUNICATOR pump and increase her interval today. Continue IV Valium Q12 hours. We also got the patient up to the chair this afternoon. She agreed to work with therapy, which she has been refusing, therefore I reordered PT/OT to return and start working with her. (2) Chronic anticoagulation: Code(s): Z79.01 - skilled nursing (current) use of anticoagulants Status: Chronic Assessment and Plan: Nik still on hold. Plan I have discussed the patient's case and plan of care with Dr. Moore. Subjective Subjective Date/Time Seen: 10/22/23 14:15 Post Op day: 3 (Exploratory laparotomy with segmental mid jejunal small bowel resection with [id number] stapled anti peristaltic jejunal anastomosis) Patient reports: flatus, no bowel movement and afebrile Interval history: Patient seen in IMU today. She appears to be in A.fib rate controlled on the monitor. She is still complaining of abdominal pain but feels the TECHNICAL COMMUNICATOR is helping. She has more complaints of her chronic back pain today and feels her abdominal pain is better. She cannot recall any flatus but staff reports she did today. She still has not gotten out of bed since surgery as she has refused therapy and refused any activity per staff. She typically lives at home alone and deals with chronic pain taking about 3-4 Percocet 10-325mg everyday. She still has an NG tube with only 200 cc out in the cannister, nothing documented over the past 48 hours from her NG. It also appears her only maintenance fluids are going at 10 cc/hr with her TECHNICAL COMMUNICATOR pump. Exam Const: General: comfortable and no acute distress Orientation/consciousness: patient oriented x3 GI: Inspection: non-distended and incision (healing well with gabriel intact, no erythema or drainage) GI Palp: Yes Soft to palpation, Yes Tenderness to palpation present (GI) (diffusely tender), No Guarding due to palpation present (GI) and No Rebound tenderness present Auscultation: Hypoactive bowel sounds present Urinary Catheter: Urinary Catheter: patent and draining and urine clear Extrem: General: no calf tenderness bilaterally and no edema Objective Data Vital Signs Vital Signs: Vital Signs - 24 hr 10/21/23 15:08 10/21/23 15:50 10/21/23 16:36 Temperature 98.5 F Pulse Rate 88 85 Respiratory Rate 16 16 Blood Pressure 166/60 H Pulse Oximetry 96 95 Oxygen Delivery 10/21/23 16:44 10/21/23 17:02 10/21/23 18:02 Temperature 98 F 98.3 F 98.4 F Pulse Rate 85 76 72 Respiratory Rate 16 16 21 H Blood Pressure 182/70 H 177/58 H 182/58 H Pulse Oximetry 95 95 95 Oxygen Delivery 10/21/23 19:02 10/21/23 19:25 10/21/23 19:32 Temperature 97.8 F 97.5 F L Pulse Rate 77 75 Respiratory Rate 20 18 18 Blood Pressure 175/53 H 170/70 H Pulse Oximetry 96 96 96 Oxygen Delivery 10/21/23 19:39 10/21/23 16:00 10/21/23 18:00 Temperature 97.5 F L Pulse Rate 79 78 72 Respiratory Rate 16 Blood Pressure 170/70 H Pulse Oximetry 96 Oxygen Delivery 10/21/23 16:00 10/21/23 20:05 10/21/23 20:00 Temperature Pulse Rate 85 85 Respiratory Rate 18 18 Blood Pressure Pulse Oximetry 96 Oxygen Delivery Room Air Room Air 10/22/23 00:00 10/22/23 00:00 10/21/23 20:00 Temperature 97.9 F Pulse Rate 83 83 80 Respiratory
--- NOTE | 2023-10-22 15:26 | PM.IMPN ---
Progress Note: A&P Assessment and Plan (1) SBO (small bowel obstruction): Code(s): K56.609 - Unspecified intestinal obstruction, unspecified as to partial versus complete obstruction Status: Acute (2) Chronic anticoagulation: Code(s): Z79.01 - FPC (current) use of anticoagulants Status: Chronic (3) Atypical chest pain: Code(s): R07.89 - Other chest pain Status: Acute (4) Chronic hyponatremia: Code(s): E87.1 - Hypo-osmolality and hyponatremia Status: Chronic (5) Paroxysmal A-fib: Code(s): I48.0 - Paroxysmal atrial fibrillation Status: Acute (6) Hypothyroidism: Qualifiers: Hypothyroidism type: unspecified Qualified Code(s): E03.9 - Hypothyroidism, unspecified Code(s): E03.9 - Hypothyroidism, unspecified Status: Acute (7) Chronic pain syndrome: Code(s): G89.4 - Chronic pain syndrome Status: Acute (8) Gastritis: Qualifiers: Gastritis type: unspecified gastritis Chronicity: chronic Gastritis bleeding: without bleeding Qualified Code(s): K29.50 - Unspecified chronic gastritis without bleeding Code(s): K29.70 - Gastritis, unspecified, without bleeding Status: Acute Plan SBO w Ischemia -Post op day 3 exploratory laparotomy and bowel resection. -General surgery following -NPO -NG tube -De-escalate WHEEL BRAIDER pain pump -Protonix IV -PT/OT -antimetic -IV fluids -empiric ABX -monitor for BM and flatulence Paroxysmal AFIB -eliquis on hold ELVIRA -Recommend sleep study O/P Diabetes ?-Accu-Cheks a.c. HS -sliding scale insulin -lipid panel pending -Diabetic diet -consult to dietitian -encourage lifestyle modifications and weight loss -Optimize Keyshawn inhibitors and statins.? -Watch for hypoglycemia/hypoglycemic protocol ordered Hypothyroidism -resume levothyroxine -TSH pending Code status: Full code per patient DVT prophylaxis: Eliquis in hold/scd's Stress ulcer prophylaxis: Protonix 40 daily PT/OT notes: PT/OT Pending Disposition: Admission to IMU with SBO recent bowel resection. Patient still not working with PT/OT will likely need to skilled at discharge currently lives alone. -Patient's previous records reviewed on admission -ER notes reviewed in detail on admission -discussed all findings and current treatment plan with patient/Family/POA -Consultations reviewed for recommendations -Patient's disposition for safe discharge discussed with foster care case manager Dictation performed by [employer] direct speech recognition software, therefore civil service worker variants and typographical errors may occur. Time Spent With Patient Time with patient: 25 - 35 minutes Subjective Date/time seen: 10/22/23 15:26 Interval history: Chief Complaint: Abdominal pain Narrative: 78-year-old female with past medical history including paroxysmal atrial fibrillation, obstructive sleep apnea with noncompliance with CPAP therapy, type 2 diabetes mellitus, rheumatoid arthritis, hypothyroidism, prior appendectomy and cholecystectomy as well as hysterectomy as well as multiple other comorbidities who presented to the ER via EMS due to abdominal pain and bloating.? Patient's abdominal pain symptoms started on the .? The pain is worsened with eating.? She has had significant amounts of nausea and a small amount of vomiting.? She reports that she has not had a bowel movement since before her last hospitalization on .? She is upset that she did not get more treatment for constipation during her last hospitalization.? She has taken her usual bowel medications at home but denies taking anything extra or [id number] medications.? She reports that she has not passed gas since her last hospitalization either.? The patient is repetitively asking for pain medications due to abdominal pain.? She reports that her abdominal pain has been a 10/10 in intensity since onset.? She cries out caleb
--- NOTE | 2023-10-22 15:58 | PM.CNCAR ---
Assessment and Plan Assessment and plan (1) Paroxysmal A-fib: Code(s): I48.0 - Paroxysmal atrial fibrillation Status: Acute Assessment and Plan: History of PAF, currently maintaining sinus rhythm despite stressors of surgery and bowel obstruction. --continue amiodarone --Resume nebivolol --resume Eliquis when okay with Dr. Moore (2) Coronary artery disease: Qualifiers: Coronary Disease-Associated Artery/Lesion type: [place] artery [place] vs. transplanted heart: [place] heart Associated angina: without angina Qualified Code(s): I25.10 - Atherosclerotic heart disease of [place] coronary artery without angina pectoris Code(s): I25.10 - Atherosclerotic heart disease of [place] coronary artery without angina pectoris Status: Acute Assessment and Plan: History of CAD, stable during this hospitalization with no angina. --resume aspirin, ezetimibe, atorvastatin on discharge. (3) SBO (small bowel obstruction): Code(s): K56.609 - Unspecified intestinal obstruction, unspecified as to partial versus complete obstruction Status: Acute Assessment and Plan: Status post jejunal resection, improving, followed by Dr. Moore. (4) Hypertension: Qualifiers: Hypertension type: unspecified Qualified Code(s): I10 - Essential (primary) hypertension Code(s): I10 - Essential (primary) hypertension Status: Chronic Assessment and Plan: Running high here. --Resume Nebivolol and eventually valsartan Plan Will follow at a distance. Please call if we can be of assistance. History of Present Illness History of Present Illness Consult date/time: 10/22/23 15:58 Reason For Visit: SBO Narrative: Aracely Spear is an 78-year-old female whom we are asked to see at the request of Dr. Moore for advice and opinion regarding her history of atrial fibrillation and prolonged QT interval, in consultation. Patient is followed by Dr. Pedraza in our office for her coronary disease, hypertension, paroxysmal atrial fibrillation. She was admitted on 10/13/2023 for near syncope and noted to have sinus bradycardia. An OPT monitor was recommended and she was cont on her nebivolol and amiodarone. The pt was readmitted 10/18/2023 with abdominal pain and found to have a SBO. She had small bowel resection on 10/19/[address] Moore. She is recovering well on currently sitting up in a chair, still has the NG tube in. No chest pain, shortness a breath or palpitations; her main complaint is that she is hungry. Telemetry shows sinus rhythm with APCs. 10/19/2023 EKG at 4:49 a.m.: Sinus rhythm rate 78, left axis deviation, possible LVH, no ischemia, [id number], personally reviewed Review of Systems Constitutional: Constitutional: Denies fever(s) Eyes: Eyes: Reports no additional eye complaints ENT: Comments: NG tube was irritating Cardiovascular: Cardiovascular: Denies chest pain, Denies pedal edema, Denies lightheadedness and Denies dyspnea Respiratory: Respiratory: Denies chest congestion and Denies dyspnea Gastrointestinal: Gastrointestinal: Reports abdominal pain and Denies hematochezia Comments: Some abdominal pain with movement. Passing gas. Genitourinary: Genitourinary: Reports no additional female genitourinary complaints Musculoskeletal: Musculoskeletal: Reports no additional musculoskeletal complaints Integumentary/Breasts: Skin/Breast: Reports system reviewed and no additional complaints, except as docu Neurologic: Reports system reviewed and no additional complaints, except as documented and Denies behavioral changes Psychiatric: Psychiatric: Denies behavioral changes [facility] Past Medical History Medical History Anxiety Asthma Chronic anticoagulation Chronic hyponatremia Chronic pain syndrome Chronic, continuous use of opioids Coronary artery disease Angioplasty of a diagonal les
[2023-10-22] MEDS: IBUPROFEN IV 800 MG/200 ML 800 MG/200 ML BAG 400 MG IVPB ×2 (16:53→22:02)
[2023-10-22] MEDS: KCL 20MEQ/0.9% SOD CHL 1,000 ML 100 ML IV CONT (16:55)
[2023-10-22 18:02] LABS: Glucose Point of Care 185 mg/dl (65-105)
[2023-10-23] VITALS (18 sets, daily range): BP systolic 135–174; BP diastolic 65–72; PULSE 65–95; RESP 18–22; TEMP 36.3–36.9; O2SAT 97–100
[2023-10-23] MEDS: HYDROmorphone HCL INJ (*CRX) 1 MG/ML SYR 0.5 MG IV PUSH ×6 (02:48→23:08)
[2023-10-23] MEDS: PIPERACILLN/TAZ 3.375GM/NS50ML 3.375 GM/50 ML BAG IVPB ×5 (02:48→23:10)
[2023-10-23 04:58] LABS: Glucose Point of Care 149 mg/dl (65-105)
[2023-10-23 06:07] LABS: Hematocrit 28.9 % (37.0-47.0); Hemoglobin 9.2 g/dL (12.0-15.0); Mean Corpuscular HGB Conc 31.8 g/dl (32-36); Mean Corpuscular Hemoglobin 27.8 pg (26-34); Mean Corpuscular Volume 87.3 fl (80-100); Mean Platelet Volume 9.2 fl (7.4-10.4); Platelet Count Result 327 k/mm3 (150-375); Red Blood Count 3.31 M/mm3 (4.2-5.4); Red Cell Distribution Width 16.3 % (11.5-14.5); White Blood Count 17.9 K/mm3 (4.5-10.0)
[2023-10-23] MEDS: IBUPROFEN IV 800 MG/200 ML 800 MG/200 ML BAG 400 MG IVPB ×3 (06:15→21:19)
[2023-10-23 06:16] LABS: Alanine Aminotransferase 14 U/L (6-35); Albumin Level 2.6 g/dL (3.5-5.1); Alkaline Phosphatase 55 U/L (38-126); Anion Gap 6 mmol/L (8-16); Aspartate Amino Transferase 27 U/L (14-36); Bilirubin,Total 1.4 mg/dL (0.2-1.3); Blood Urea Nitrogen 24 mg/dL (7-17); Calcium 8.4 mg/dL (8.4-10.2); Carbon Dioxide 21 mmol/L (22-30); Chloride 113 mmol/L (98-107); Estimated Glomerular Filt Rate > 60; Glucose 124 mg/dL (65-110); Magnesium 1.9 mg/dL (1.6-2.3); Phosphorus 1.8 mg/dL (2.5-4.5); Potassium 3.1 mmol/L (3.4-5.0); Sodium 140 mmol/L (137-145)
[2023-10-23] MEDS: KCL 20MEQ/0.9% SOD CHL 1,000 ML 100 ML IV CONT (06:18)
[2023-10-23] MEDS: LEVOTHYROXINE SODIUM INJ 100 MCG/5 ML VIAL 44 MCG IV PUSH (06:20)
[2023-10-23] MEDS: FLUTICASONE/SALMETEROL 115-21 MCG INHALER 1 PUFF 2 PUFF INHALATION ×2 (08:10→20:57)
[2023-10-23] MEDS: AMIODARONE HCL 200 MG TABLET PO (08:54)
[2023-10-23] MEDS: HYDROCORTISONE SODIUM SUCCINATE 100 MG/2 ML VIAL 50 MG IV PUSH (08:55)
[2023-10-23] MEDS: PANTOPRAZOLE SODIUM IV 40 MG VIAL IV PUSH ×2 (08:55→21:09)
[2023-10-23] MEDS: diazePAM INJ (*CRX) 10 MG/2 ML SYRINGE 5 MG IV PUSH ×2 (08:55→21:08)
[2023-10-23] MEDS: NEBIVOLOL HCL 5 MG TABLET PO (09:05)
--- NOTE | 2023-10-23 11:14 | PM.IMPN ---
Progress Note: A&P Assessment and Plan (1) SBO (small bowel obstruction): Code(s): K56.609 - Unspecified intestinal obstruction, unspecified as to partial versus complete obstruction Status: Acute (2) Chronic anticoagulation: Code(s): Z79.01 - jail (current) use of anticoagulants Status: Chronic (3) Atypical chest pain: Code(s): R07.89 - Other chest pain Status: Acute (4) Chronic hyponatremia: Code(s): E87.1 - Hypo-osmolality and hyponatremia Status: Chronic (5) Paroxysmal A-fib: Code(s): I48.0 - Paroxysmal atrial fibrillation Status: Acute (6) Hypothyroidism: Qualifiers: Hypothyroidism type: unspecified Qualified Code(s): E03.9 - Hypothyroidism, unspecified Code(s): E03.9 - Hypothyroidism, unspecified Status: Acute (7) Chronic pain syndrome: Code(s): G89.4 - Chronic pain syndrome Status: Acute (8) Gastritis: Qualifiers: Gastritis type: unspecified gastritis Chronicity: chronic Gastritis bleeding: without bleeding Qualified Code(s): K29.50 - Unspecified chronic gastritis without bleeding Code(s): K29.70 - Gastritis, unspecified, without bleeding Status: Acute Plan SBO w Ischemia -Post op day 4 exploratory laparotomy and bowel resection. -General surgery following -NPO with ice chips -NG tube can likely be D/C reports BM and Flatulence -De-escalate HYGIENE ASSISTANT pain pump pain better controlled -Protonix IV -PT/OT -antimetic -IV fluids -empiric ABX Paroxysmal AFIB -eliquis on hold -Resume per surgery ELVIRA -Recommend sleep study O/P Diabetes ?-Accu-Cheks a.c. HS -sliding scale insulin -Diabetic diet -consult to dietitian -encourage lifestyle modifications and weight loss -Optimize Keyshawn inhibitors and statins.? -Watch for hypoglycemia/hypoglycemic protocol ordered Hypothyroidism -resume levothyroxine -TSH pending Code status: Full code per patient DVT prophylaxis: Eliquis in hold/scd's Stress ulcer prophylaxis: Protonix 40 daily PT/OT notes: PT/OT Pending Disposition: Admission to IMU with SBO recent bowel resection. PT/OT re-ordered pain better controlled. family at bedside discussed possible discharge plans HH vs SNF vs home with family. -Patient's previous records reviewed on admission -ER notes reviewed in detail on admission -discussed all findings and current treatment plan with patient/Family/POA -Consultations reviewed for recommendations -Patient's disposition for safe discharge discussed with casey saw operator Dictation performed by [employer] direct speech recognition software, therefore funeral assistant variants and typographical errors may occur. Time Spent With Patient Time with patient: 15 - 25 minutes Subjective Date/time seen: 10/23/23 11:14 Interval history: Chief Complaint: Abdominal pain Narrative: 78-year-old female with past medical history including paroxysmal atrial fibrillation, obstructive sleep apnea with noncompliance with CPAP therapy, type 2 diabetes mellitus, rheumatoid arthritis, hypothyroidism, prior appendectomy and cholecystectomy as well as hysterectomy as well as multiple other comorbidities who presented to the ER via EMS due to abdominal pain and bloating.? Patient's abdominal pain symptoms started on the .? The pain is worsened with eating.? She has had significant amounts of nausea and a small amount of vomiting.? She reports that she has not had a bowel movement since before her last hospitalization on .? She is upset that she did not get more treatment for constipation during her last hospitalization.? She has taken her usual bowel medications at home but denies taking anything extra or [id number] medications.? She reports that she has not passed gas since her last hospitalization either.? The patient is repetitively asking for pain medications due to abdominal pain.? She reports that her ab
[2023-10-23 11:46] LABS: Glucose Point of Care 137 mg/dl (65-105)
--- NOTE | 2023-10-23 11:51 | PCNFU ---
Nutrition Follow-Up Complete: Inadequate oral intake related to altered GI function as evidenced by NPO s/p small bowel resection Goal:Meet estimated nutrition needs as diet advanced Pt current nutrition is NPO. Nutrition recommendation: advance diet when appropriate Last recorded weight is 63.6 kg. Bowel Motility: +BM 10/23 Labs Reviewed: Hgb:9.2, HCT:28.9, Alb:2.6, K:3.1, BUN:24, Glu:124 Meds Noted: novolog, protonix Skin: WNL Additional Notes: Pt remains NPO at this time. NGT to be removed today. Advance diet as tolerated. Monitoring diet advancement, bowel function, labs, weights, PO intake, plan of care Follow up in 3 days.
--- NOTE | 2023-10-23 14:04 | PCOTNOTE ---
Attempted to see pt for OT evaluation. Pt educated extensively on importance of moving multiple times throughout the day as well as the purpose of OT. Pt tearful and continues to decline working with OT at this time. Discussed with pt that she will need to work with OT tomorrow and pt agreed. Will continue to follow.
[2023-10-23] MEDS: KCL 40 MEQ/0.9% SOD CHL 1,000 ML 100 ML IV CONT (16:33)
--- NOTE | 2023-10-23 16:36 | PM.PNGS ---
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 Bowel function returned. Will remove NG tube and start clear liquids with Ensure supplements. Potassium and phosphorus replaced IV. She has transition from the GLASS BEVELER pump to p.r.n. pain medication and is tolerating this well. Continue IV Zosyn, white blood cell count has been trending down but up slightly today to 17,000. Continue PT/OT and increasing activity. We will also remove Toro catheter and get the patient a bedside commode. (2) Chronic anticoagulation: Code(s): Z79.01 - long-term (current) use of anticoagulants Status: Chronic Assessment and Plan: Eliquis still on hold. Will add prophylactic Lovenox. Plan I have discussed the patient's case and plan of care with Dr. Moore. Subjective Subjective Date/Time Seen: 10/23/23 16:36 Patient reports: no new complaints, flatus, bowel movement and afebrile Interval history: Patient up in the chair this afternoon. Her GLASS BEVELER has been stopped and transitioned to PRN IV push dilaudid. She is doing well with this. She has had 4 bowel movements since yesterday afternoon. She will be transferred out of IMU to med/surg with tele. Review of Systems Review of Systems: All systems reviewed & are unremarkable except as noted in HPI and below Exam Const: General: comfortable and no acute distress Orientation/consciousness: patient oriented x3 GI: Inspection: non-distended GI Palp: Yes Soft to palpation, Yes Tenderness to palpation present (GI) (Incisional), No Guarding due to palpation present (GI) and No Rebound tenderness present Auscultation: Hypoactive bowel sounds present Other: Midline incision with gabriel intact, no erythema, scant serous drainage near umbilicus. Urinary Catheter: Urinary Catheter: patent and draining Objective Data Vital Signs Vital Signs: Vital Signs - 24 hr 10/22/23 18:00 10/22/23 20:23 10/22/23 20:35 Temperature 97.6 F Pulse Rate 81 107 H 85 Respiratory Rate 20 18 Blood Pressure 195/79 H Pulse Oximetry 100 Oxygen Delivery 10/22/23 20:41 10/22/23 22:46 10/23/23 00:00 Temperature 97.8 F Pulse Rate 96 Respiratory Rate 20 Blood Pressure 180/78 H Pulse Oximetry 96 100 Oxygen Delivery Room Air Room Air 10/22/23 20:00 10/22/23 22:00 10/23/23 00:00 Temperature Pulse Rate 92 89 91 Respiratory Rate Blood Pressure Pulse Oximetry Oxygen Delivery 10/23/23 04:00 10/23/23 02:00 10/23/23 05:27 Temperature 97.6 F Pulse Rate 86 90 84 Respiratory Rate 20 Blood Pressure 165/70 H Pulse Oximetry 98 Oxygen Delivery 10/23/23 04:00 10/23/23 06:00 10/23/23 07:33 Temperature 97.4 F L Pulse Rate 79 68 Respiratory Rate 18 Blood Pressure 135/65 Pulse Oximetry 97 Oxygen Delivery Room Air 10/23/23 08:54 10/23/23 09:05 10/23/23 08:00 Temperature Pulse Rate 79 79 Respiratory Rate Blood Pressure Pulse Oximetry Oxygen Delivery Room Air 10/23/23 08:00 10/23/23 10:00 10/23/23 11:35 Temperature 98.5 F Pulse Rate 90 95 80 Respiratory Rate 20 Blood Pressure 163/65 H Pulse Oximetry 98 Oxygen Delivery 10/23/23 12:00 10/23/23 10:55 Temperature Pulse Rate Respiratory Rate Blood Pressure Pulse Oximetry Oxygen Delivery Room Air Room Air Intake/Output Intake/Output: Intake & Output 10/20/23 10/21/23 10/22/23 10/23/23 23:59 23:59 23:59 23:59 Intake Total 1454 1204.0 620 1660 Output Total 950 807 675 9683 Balance 504 454.0 -130 -240 Meds/Results Medications: Active Medications Generic Name Dose
[2023-10-23] MEDS: ENOXAPARIN 40 MG/0.4 ML SYRINGE SUB-Q (17:45)
[2023-10-23 18:29] LABS: Glucose Point of Care 129 mg/dl (65-105)
--- NOTE | 2023-10-23 18:29 | PC.NURSE ---
This patient, Aracely Spear, was transferred to [facility] on 10/23/23 at 1830. Personal belongings sent with patient. Report given to RN. Appropriate documentation sent with patient.
[2023-10-23] MEDS: POTASSIUM PHOS,M-BASIC-D-BASIC 20 MMOL in SODIUM CHLORIDE 0.9% IV 250 ML 64.17 MMOL IVPB (18:58)
[2023-10-23] MEDS: POTASSIUM CHLORIDE INJ 40 MEQ in SODIUM CHLORIDE 0.9% IV 500 ML 130 MEQ IVPB (23:56)
[2023-10-24] VITALS (13 sets, daily range): BP systolic 131–186; BP diastolic 59–73; PULSE 63–83; RESP 16–21; TEMP 36.2–36.8; O2SAT 95–100
[2023-10-24] LABS: Glucose Point of Care 105 mg/dl (65-105)
[2023-10-24] MEDS: HYDROmorphone HCL INJ (*CRX) 1 MG/ML SYR 0.5 MG IV PUSH ×6 (03:05→23:53)
[2023-10-24] MEDS: PIPERACILLN/TAZ 3.375GM/NS50ML 3.375 GM/50 ML BAG IVPB ×4 (06:12→23:53)
[2023-10-24] MEDS: LEVOTHYROXINE SODIUM INJ 100 MCG/5 ML VIAL 44 MCG IV PUSH (06:13)
[2023-10-24] MEDS: IBUPROFEN IV 800 MG/200 ML 800 MG/200 ML BAG 400 MG IVPB ×3 (06:13→21:39)
[2023-10-24 06:50] LABS: Glucose Point of Care 79 mg/dl (65-105)
[2023-10-24 06:50] LABS: Hematocrit 30.2 % (37.0-47.0); Hemoglobin 9.6 g/dL (12.0-15.0); Mean Corpuscular HGB Conc 31.8 g/dl (32-36); Mean Corpuscular Hemoglobin 28.2 pg (26-34); Mean Corpuscular Volume 88.6 fl (80-100); Mean Platelet Volume 8.9 fl (7.4-10.4); Platelet Count Result 304 k/mm3 (150-375); Red Blood Count 3.41 M/mm3 (4.2-5.4); Red Cell Distribution Width 16.5 % (11.5-14.5); White Blood Count 14.4 K/mm3 (4.5-10.0)
[2023-10-24 07:12] LABS: Alanine Aminotransferase 14 U/L (6-35); Albumin Level 2.5 g/dL (3.5-5.1); Alkaline Phosphatase 49 U/L (38-126); Anion Gap 7 mmol/L (8-16); Aspartate Amino Transferase 27 U/L (14-36); Bilirubin,Total 1.3 mg/dL (0.2-1.3); Blood Urea Nitrogen 17 mg/dL (7-17); Calcium 7.8 mg/dL (8.4-10.2); Carbon Dioxide 18 mmol/L (22-30); Chloride 112 mmol/L (98-107); Estimated Glomerular Filt Rate > 60; Glucose 81 mg/dL (65-110); Magnesium 1.7 mg/dL (1.6-2.3); Phosphorus 3.8 mg/dL (2.5-4.5); Sodium 137 mmol/L (137-145)
[2023-10-24] MEDS: FLUTICASONE/SALMETEROL 115-21 MCG INHALER 1 PUFF 2 PUFF INHALATION ×2 (07:39→20:48)
[2023-10-24 08:19] LABS: Glucose Point of Care 75 mg/dl (65-105)
[2023-10-24] MEDS: PANTOPRAZOLE SODIUM IV 40 MG VIAL IV PUSH ×2 (09:41→20:07)
[2023-10-24] MEDS: diazePAM INJ (*CRX) 10 MG/2 ML SYRINGE 5 MG IV PUSH ×2 (09:45→20:06)
[2023-10-24] MEDS: ENOXAPARIN 40 MG/0.4 ML SYRINGE SUB-Q (09:48)
[2023-10-24] MEDS: AMIODARONE HCL 200 MG TABLET PO (09:54)
[2023-10-24] MEDS: NEBIVOLOL HCL 5 MG TABLET PO (10:00)
[2023-10-24] MEDS: HYDROCORTISONE SODIUM SUCCINATE 100 MG/2 ML VIAL 50 MG IV PUSH (10:01)
--- NOTE | 2023-10-24 10:25 | PM.IMPN ---
Progress Note: A&P Assessment and Plan (1) SBO (small bowel obstruction): Code(s): K56.609 - Unspecified intestinal obstruction, unspecified as to partial versus complete obstruction Status: Acute (2) Chronic anticoagulation: Code(s): Z79.01 - correction (current) use of anticoagulants Status: Chronic (3) Atypical chest pain: Code(s): R07.89 - Other chest pain Status: Acute (4) Chronic hyponatremia: Code(s): E87.1 - Hypo-osmolality and hyponatremia Status: Chronic (5) Paroxysmal A-fib: Code(s): I48.0 - Paroxysmal atrial fibrillation Status: Acute (6) Hypothyroidism: Qualifiers: Hypothyroidism type: unspecified Qualified Code(s): E03.9 - Hypothyroidism, unspecified Code(s): E03.9 - Hypothyroidism, unspecified Status: Acute (7) Chronic pain syndrome: Code(s): G89.4 - Chronic pain syndrome Status: Acute (8) Gastritis: Qualifiers: Gastritis type: unspecified gastritis Chronicity: chronic Gastritis bleeding: without bleeding Qualified Code(s): K29.50 - Unspecified chronic gastritis without bleeding Code(s): K29.70 - Gastritis, unspecified, without bleeding Status: Acute Plan SBO w Ischemia -Post op day 5 exploratory laparotomy and bowel resection. -General surgery following -clear liquids will advance as tolerated -NG tube D/C -Pain control -Protonix IV -PT/OT -antimetic -IV fluids -empiric ABX (Zosyn) Paroxysmal AFIB -eliquis on hold -Resume per surgery ELVIRA -Recommend sleep study O/P Diabetes ?-Accu-Cheks a.c. HS -sliding scale insulin -Diabetic diet -consult to dietitian -encourage lifestyle modifications and weight loss -Optimize Keyshawn inhibitors and statins.? -Watch for hypoglycemia/hypoglycemic protocol ordered Hypothyroidism -resume levothyroxine -TSH pending Code status: Full code per patient DVT prophylaxis: Eliquis in hold/scd's Stress ulcer prophylaxis: Protonix 40 daily PT/OT notes: PT/OT Pending Disposition: transferred to med/surg on tele with SBO recent bowel resection. PT/OT re-ordered pain better controlled. Plan SNF vs HH. -Patient's previous records reviewed on admission -ER notes reviewed in detail on admission -discussed all findings and current treatment plan with patient/Family/POA -Consultations reviewed for recommendations -Patient's disposition for safe discharge discussed with lead case manager Dictation performed by [employer] direct speech recognition software, therefore nutrition internship variants and typographical errors may occur. Time Spent With Patient Time with patient: 15 - 25 minutes Subjective Date/time seen: 10/24/23 10:25 Interval history: Chief Complaint: Abdominal pain Narrative: 78-year-old female with past medical history including paroxysmal atrial fibrillation, obstructive sleep apnea with noncompliance with CPAP therapy, type 2 diabetes mellitus, rheumatoid arthritis, hypothyroidism, prior appendectomy and cholecystectomy as well as hysterectomy as well as multiple other comorbidities who presented to the ER via EMS due to abdominal pain and bloating.? Patient's abdominal pain symptoms started on the .? The pain is worsened with eating.? She has had significant amounts of nausea and a small amount of vomiting.? She reports that she has not had a bowel movement since before her last hospitalization on .? She is upset that she did not get more treatment for constipation during her last hospitalization.? She has taken her usual bowel medications at home but denies taking anything extra or [id number] medications.? She reports that she has not passed gas since her last hospitalization either.? The patient is repetitively asking for pain medications due to abdominal pain.? She reports that her abdominal pain has been a 10/10 in intensity since onset.? She cries out even with lying the stethoscope
[2023-10-24 12:34] LABS: Glucose Point of Care 233 mg/dl (65-105)
[2023-10-24] MEDS: INSULIN ASPART (*BKC) 100 UNITS/ML SUB-Q ×2 (12:48→17:56)
[2023-10-24] MEDS: KCL 40 MEQ/0.9% SOD CHL 1,000 ML 100 ML IV CONT (16:49)
[2023-10-24 17:19] LABS: Glucose Point of Care 217 mg/dl (65-105)
--- NOTE | 2023-10-24 19:23 | WPDPN ---
Progress Note: A&P Assessment and Plan (1) Ischemia, bowel: Code(s): K55.9 - Vascular disorder of intestine, unspecified Status: Acute Assessment and Plan: Her bowel function has returned after her small-bowel resection for strangulated small bowel due to her closed loop obstruction she is able to get up out of bed sit up in a chair and ambulate to the bathroom. Will advance her to full liquids with Ensure supplements. Expect continued supportive management and strengthening with therapy over the weekend. Decision for detention placement will likely be made early next week. Continue supportive management. (2) Sepsis: Code(s): A41.9 - Sepsis, unspecified organism Status: Acute Assessment and Plan: Continue IV antibiotics for now. She was septic from her necrotic bowel. Continue with the Zosyn for now. Subjective Date/time seen: 10/24/23 19:23 Interval history: Patient looks better today. She is sitting up in a chair. Nasogastric tube has been removed and she is tolerating clear liquids. She has had multiple bowel movements today which were loosened diarrhea. Physical therapy has been seeing her. Plan is to go to detention facility at the time of discharge. Family is looking into their options but as of right now does not look like there will be a decision made to early next week. She continues to complain of chronic back pain. Is a long history of chronic pain due to her arthritis. She has been tolerating oral pain medications well without need for a lot of breakthrough IV pain medications. White blood cell count is down to 14,000. continue on IV antibiotics at this time. Exam GI: Other: Abdomen is soft and may distended. Incision is healing well without any redness or drainage. Bowel sounds are noted. Objective Data Vital Signs Vital Signs: Vital Signs - 24 hr 10/23/23 20:59 10/23/23 20:00 10/23/23 20:00 Temperature 36.7 C Pulse Rate 71 Respiratory Rate 21 H Blood Pressure 165/72 H Pulse Oximetry 97 100 Oxygen Delivery Room Air Room Air 10/24/23 00:00 10/23/23 20:00 10/24/23 00:00 Temperature 36.5 C Pulse Rate 71 65 68 Respiratory Rate 18 Blood Pressure 138/62 Pulse Oximetry 97 Oxygen Delivery 10/24/23 04:00 10/24/23 07:39 10/24/23 07:42 Temperature Pulse Rate 64 75 Respiratory Rate 20 Blood Pressure Pulse Oximetry 95 Oxygen Delivery Room Air 10/24/23 05:00 10/24/23 09:54 10/24/23 10:00 Temperature 36.8 C Pulse Rate 78 83 83 Respiratory Rate 21 H Blood Pressure 186/73 H Pulse Oximetry 100 Oxygen Delivery 10/24/23 08:00 10/24/23 09:17 10/24/23 08:00 Temperature Pulse Rate 79 Respiratory Rate Blood Pressure Pulse Oximetry Oxygen Delivery Room Air Room Air 10/24/23 12:00 10/24/23 14:00 10/24/23 16:00 Temperature 36.2 C L Pulse Rate 79 69 69 Respiratory Rate 16 Blood Pressure 131/59 L Pulse Oximetry 100 Oxygen Delivery Intake/Output Intake/Output: Intake & Output 10/21/23 10/22/23 10/23/23 10/24/23 23:59 23:59 23:59 23:59 Intake Total 1204.0 620 3210 2410 Output Total 163 706 7364 Balance 454.0 -342 201 7511 Meds/Results Medications: Active Medications Generic Name Dose Route Start Last Admin Trade Name Freq PRN Reason Stop Dose Admin Al Hydrox/Mg Hydrox/Simethicone 30 ml 10/19/23 14:30 Mag Hydrox/Al Hydrox/Simeth 30 Ml Udc BY MOUTH Q8H PRN Reflux Albuterol 2 puff 10/19/23 06:57 Albuterol Sulfate (*Sp) Aerosol 1 Puff INHALATION QIDRT PRN Shortness Of Breath Or Wheezing Amiodarone HCl 200 mg 10/20/23 08:00 10/24/23 09:54 Amiodarone Hcl 200 Mg Tablet PO 200 mg DAILY@0800 GINO Administration Dextrose 12.5 gm 10/19/23 14:39 Dextrose 50% 25 Gm/50 Ml Syringe IV PUSH PRN PRN Hypoglycemia Protocol Diazepam 5 mg 10/20/23 12:30 10/24/23 09:45 Diazepa
[2023-10-24 23:58] LABS: Glucose Point of Care 174 mg/dl (65-105)
[2023-10-25] VITALS (13 sets, daily range): BP systolic 130–166; BP diastolic 54–59; PULSE 59–74; RESP 16–20; TEMP 36.5–36.9; O2SAT 94–100
[2023-10-25] MEDS: HYDROmorphone HCL INJ (*CRX) 1 MG/ML SYR 0.5 MG IV PUSH ×5 (04:35→21:55)
[2023-10-25] MEDS: PIPERACILLN/TAZ 3.375GM/NS50ML 3.375 GM/50 ML BAG IVPB ×3 (05:57→18:22)
[2023-10-25] MEDS: LEVOTHYROXINE SODIUM INJ 100 MCG/5 ML VIAL 44 MCG IV PUSH (05:58)
[2023-10-25] MEDS: IBUPROFEN IV 800 MG/200 ML 800 MG/200 ML BAG 400 MG IVPB ×3 (05:58→21:56)
[2023-10-25 06:09] LABS: Glucose Point of Care 112 mg/dl (65-105)
[2023-10-25] MEDS: NEBIVOLOL HCL 5 MG TABLET PO (08:00)
[2023-10-25] MEDS: ENOXAPARIN 40 MG/0.4 ML SYRINGE SUB-Q (08:01)
[2023-10-25] MEDS: PANTOPRAZOLE SODIUM IV 40 MG VIAL IV PUSH ×2 (08:01→21:54)
[2023-10-25] MEDS: AMIODARONE HCL 200 MG TABLET PO (08:01)
[2023-10-25] MEDS: FLUTICASONE/SALMETEROL 115-21 MCG INHALER 1 PUFF 2 PUFF INHALATION ×2 (08:29→21:54)
[2023-10-25] MEDS: diazePAM INJ (*CRX) 10 MG/2 ML SYRINGE 5 MG IV PUSH ×2 (10:14→21:54)
--- NOTE | 2023-10-25 11:03 | PM.PNGS ---
Progress Note: A&P Assessment and Plan (1) Ischemia, bowel: Code(s): K55.9 - Vascular disorder of intestine, unspecified Status: Acute Assessment and Plan: Advanced to regular diet today. Continue broad-spectrum IV antibiotics. Can likely start anticoagulation tomorrow if white blood count improving and patient is tolerating regular diet. (2) SBO (small bowel obstruction): Code(s): K56.609 - Unspecified intestinal obstruction, unspecified as to partial versus complete obstruction Status: Acute (3) Sepsis: Code(s): A41.9 - Sepsis, unspecified organism Status: Acute Subjective Subjective Date/Time Seen: 10/25/23 11:03 Interval history: Bowels moving. Tolerating full liquids. Mostly having issues with pain control because patient lost IV access. Exam GI: Inspection: incision (Dressing dry, no erythema) GI Palp: Yes Soft to palpation, Yes Tenderness to palpation present (GI) (Incisional) and No Guarding due to palpation present (GI) Auscultation: normal bowel sounds Objective Data Vital Signs Vital Signs: Vital Signs - 24 hr 10/24/23 12:00 10/24/23 14:00 10/24/23 16:00 Temperature 36.2 C L Pulse Rate 79 69 69 Respiratory Rate 16 Blood Pressure 131/59 L Pulse Oximetry 100 Oxygen Delivery 10/24/23 20:00 10/24/23 20:00 10/24/23 20:50 Temperature 36.8 C Pulse Rate 63 70 Respiratory Rate 18 18 Blood Pressure 158/71 H Pulse Oximetry 98 Oxygen Delivery Room Air 10/24/23 20:00 10/25/23 00:00 10/25/23 05:09 Temperature 36.9 C Pulse Rate 63 63 66 Respiratory Rate 18 Blood Pressure 157/57 H Pulse Oximetry 98 Oxygen Delivery 10/25/23 04:00 10/25/23 08:00 10/25/23 08:01 Temperature Pulse Rate 59 L 73 73 Respiratory Rate Blood Pressure Pulse Oximetry Oxygen Delivery 10/25/23 08:30 Temperature Pulse Rate Respiratory Rate Blood Pressure Pulse Oximetry 96 Oxygen Delivery Room Air Intake/Output Intake/Output: Intake & Output 10/22/23 10/23/23 10/24/23 10/25/23 23:59 23:59 23:59 23:59 Intake Total 620 9967 3330 560 Output Total 750 8455 300 Balance -208 173 4528 260 Meds/Results Medications: Active Medications Generic Name Dose Route Start Last Admin Trade Name Freq PRN Reason Stop Dose Admin Al Hydrox/Mg Hydrox/Simethicone 30 ml 10/19/23 14:30 Mag Hydrox/Al Hydrox/Simeth 30 Ml Udc BY MOUTH Q8H PRN Reflux Albuterol 2 puff 10/19/23 06:57 Albuterol Sulfate (*Sp) Aerosol 1 Puff INHALATION QIDRT PRN Shortness Of Breath Or Wheezing Amiodarone HCl 200 mg 10/20/23 08:00 10/25/23 08:01 Amiodarone Hcl 200 Mg Tablet PO 200 mg DAILY@0800 GINO Administration Dextrose 12.5 gm 10/19/23 14:39 Dextrose 50% 25 Gm/50 Ml Syringe IV PUSH PRN PRN Hypoglycemia Protocol Diazepam 5 mg 10/20/23 12:30 10/25/23 10:14 Diazepam Inj (*Crx) 10 Mg/2 Ml Syringe IV PUSH 5 mg Q12HR GINO Administration Enoxaparin Sodium 40 mg 10/23/23 17:00 10/25/23 08:01 Enoxaparin 40 Mg/0.4 Ml Syringe SUB-Q 40 mg DAILY GINO Administration Glucagon 1 mg 10/19/23 14:39 Glucagon For Inj 1 Mg Vial IM PRN PRN Hypoglycemia Protocol Glucose 15 gm 10/19/23 14:39 Glucose Oral Gel 15 Gm Of Glucse In 37.5 Gm Tube PO PRN PRN Hypoglycemia Protocol Hydralazine HCl 20 mg 10/20/23 08:39 10/21/23 20:08 Hydralazine Hcl 20 Mg/Ml Vial IV PUSH 20 mg Q4H PRN Administration SBP more than 160 - 2nd choice Hydrocortisone Sodium Succinate 50 mg 10/23/23 09:00 10/25/23 10:39 Hydrocortisone Sodium Succinate 100 Mg/2 Ml Vial IV PUSH Not Given DAILY GINO Hydromorphone HCl 0.5 mg 10/23/23 01:28 10/25/23 07:56 Hydromorphone Hcl Inj (*Crx) 1 Mg/Ml Syr IV PUSH 0.5 mg Q3H PRN Administration Pain Rated 7-10 Piperacillin/Tazobactam/Dextrose 3.375 gm in 50 mls @ 100 mls/hr 10/19/23 12:00
--- NOTE | 2023-10-25 11:15 | PCPTNOTE ---
Pt awake and in bed, pt declined currently but wants therapist to try back later becuase her arm is currently swollen and is awaiting a new IV.
--- NOTE | 2023-10-25 12:30 | PM.IMPN ---
Progress Note: A&P Assessment and Plan (1) SBO (small bowel obstruction): Code(s): K56.609 - Unspecified intestinal obstruction, unspecified as to partial versus complete obstruction Status: Acute (2) Chronic anticoagulation: Code(s): Z79.01 - halfway (current) use of anticoagulants Status: Chronic (3) Atypical chest pain: Code(s): R07.89 - Other chest pain Status: Acute (4) Chronic hyponatremia: Code(s): E87.1 - Hypo-osmolality and hyponatremia Status: Chronic (5) Paroxysmal A-fib: Code(s): I48.0 - Paroxysmal atrial fibrillation Status: Acute (6) Hypothyroidism: Qualifiers: Hypothyroidism type: unspecified Qualified Code(s): E03.9 - Hypothyroidism, unspecified Code(s): E03.9 - Hypothyroidism, unspecified Status: Acute (7) Chronic pain syndrome: Code(s): G89.4 - Chronic pain syndrome Status: Acute (8) Gastritis: Qualifiers: Gastritis type: unspecified gastritis Chronicity: chronic Gastritis bleeding: without bleeding Qualified Code(s): K29.50 - Unspecified chronic gastritis without bleeding Code(s): K29.70 - Gastritis, unspecified, without bleeding Status: Acute Plan SBO w Ischemia -Post op day 5 exploratory laparotomy and bowel resection. -General surgery following -advance to regular diet -NG tube D/C -Pain control -Protonix IV -PT/OT -antimetic -IV fluids can discontinue -empiric ABX (Zosyn) Paroxysmal AFIB -eliquis on hold -Resume per surgery RUE edema -secondary to infilitrated IV -Doppler pending ELVIRA -Recommend sleep study O/P Diabetes ?-Accu-Cheks a.c. HS -sliding scale insulin -Diabetic diet -consult to dietitian -encourage lifestyle modifications and weight loss -Optimize Keyshawn inhibitors and statins.? -Watch for hypoglycemia/hypoglycemic protocol ordered Hypothyroidism -resume levothyroxine -TSH pending Code status: Full code per patient DVT prophylaxis: Eliquis in hold/scd's Stress ulcer prophylaxis: Protonix 40 daily PT/OT notes: PT/OT Pending Disposition: transferred to med/surg on tele with SBO recent bowel resection. PT/OT re-ordered pain better controlled. Plan SNF vs HH. -Patient's previous records reviewed on admission -ER notes reviewed in detail on admission -discussed all findings and current treatment plan with patient/Family/POA -Consultations reviewed for recommendations -Patient's disposition for safe discharge discussed with rn case management Dictation performed by [employer] direct speech recognition software, therefore process manager variants and typographical errors may occur. Time Spent With Patient Time with patient: 25 - 35 minutes Subjective Date/time seen: 10/25/23 12:30 Interval history: Chief Complaint: Abdominal pain Narrative: 78-year-old female with past medical history including paroxysmal atrial fibrillation, obstructive sleep apnea with noncompliance with CPAP therapy, type 2 diabetes mellitus, rheumatoid arthritis, hypothyroidism, prior appendectomy and cholecystectomy as well as hysterectomy as well as multiple other comorbidities who presented to the ER via EMS due to abdominal pain and bloating.? Patient's abdominal pain symptoms started on the .? The pain is worsened with eating.? She has had significant amounts of nausea and a small amount of vomiting.? She reports that she has not had a bowel movement since before her last hospitalization on .? She is upset that she did not get more treatment for constipation during her last hospitalization.? She has taken her usual bowel medications at home but denies taking anything extra or laxi-oeo-[id number] medications.? She reports that she has not passed gas since her last hospitalization either.? The patient is repetitively asking for pain medications due to abdominal pain.? She reports that her abdominal pain has been a 10/10 in intensi
--- NOTE | 2023-10-25 13:44 | PC.NURSE ---
[facility] spoke with Nicci FREGOSO. ILDEFONSO verbalizes ok to proceed with midline
[2023-10-25 14:58] LABS: Glucose Point of Care 116 mg/dl (65-105)
--- NOTE | 2023-10-25 15:56 | PCOTNOTE ---
Attempted to see pt for Occupational Therapy treatment. Pt is reporting increase abdominal pain from recent medication shots. Pt is very tearful with visitors present. Pt is encouraged to sit up in chair or take a walk to decrease abdominal pain. Both pt and pt's visitors request that pt participate in therapy tomorrow instead. RN is aware of pt's refusal and c/o pain. Will continue per poc duration/frequency tomorrow.
[2023-10-25 17:49] LABS: Glucose Point of Care 112 mg/dl (65-105)
[2023-10-26] VITALS (11 sets, daily range): BP systolic 138–153; BP diastolic 48–63; PULSE 61–75; RESP 15–18; TEMP 36.7–36.9; O2SAT 100
[2023-10-26] MEDS: PIPERACILLN/TAZ 3.375GM/NS50ML 3.375 GM/50 ML BAG IVPB ×5 (00:05→21:58)
[2023-10-26 00:10] LABS: Glucose Point of Care 115 mg/dl (65-105)
[2023-10-26] MEDS: HYDROmorphone HCL INJ (*CRX) 1 MG/ML SYR 0.5 MG IV PUSH ×3 (04:27→12:27)
[2023-10-26 04:30] LABS: Hematocrit 28.7 % (37.0-47.0); Hemoglobin 9.2 g/dL (12.0-15.0); Mean Corpuscular HGB Conc 32.1 g/dl (32-36); Mean Corpuscular Hemoglobin 27.8 pg (26-34); Mean Corpuscular Volume 86.7 fl (80-100); Platelet Count Result 260 k/mm3 (150-375); Red Blood Count 3.31 M/mm3 (4.2-5.4); Red Cell Distribution Width 16.6 % (11.5-14.5); White Blood Count 11.7 K/mm3 (4.5-10.0)
[2023-10-26 04:48] LABS: Glucose Point of Care 92 mg/dl (65-105)
[2023-10-26] MEDS: LEVOTHYROXINE SODIUM INJ 100 MCG/5 ML VIAL 44 MCG IV PUSH (05:56)
[2023-10-26] MEDS: IBUPROFEN IV 800 MG/200 ML 800 MG/200 ML BAG 400 MG IVPB ×3 (05:57→20:54)
[2023-10-26 06:45] LABS: Alanine Aminotransferase 12 U/L (6-35); Albumin Level 2.2 g/dL (3.5-5.1); Alkaline Phosphatase 46 U/L (38-126); Anion Gap 3 mmol/L (8-16); Aspartate Amino Transferase 20 U/L (14-36); Blood Urea Nitrogen 8 mg/dL (7-17); Calcium 7.7 mg/dL (8.4-10.2); Carbon Dioxide 23 mmol/L (22-30); Chloride 109 mmol/L (98-107); Estimated Glomerular Filt Rate > 60; Glucose 100 mg/dL (65-110); Potassium 2.9 mmol/L (3.4-5.0); Sodium 135 mmol/L (137-145)
[2023-10-26] MEDS: ENOXAPARIN 40 MG/0.4 ML SYRINGE SUB-Q (08:21)
[2023-10-26] MEDS: PANTOPRAZOLE SODIUM IV 40 MG VIAL IV PUSH ×2 (08:21→20:54)
[2023-10-26] MEDS: NEBIVOLOL HCL 5 MG TABLET PO (08:22)
[2023-10-26] MEDS: diazePAM INJ (*CRX) 10 MG/2 ML SYRINGE 5 MG IV PUSH ×2 (08:22→20:55)
[2023-10-26] MEDS: HYDROCORTISONE SODIUM SUCCINATE 100 MG/2 ML VIAL 50 MG IV PUSH (08:22)
[2023-10-26] MEDS: AMIODARONE HCL 200 MG TABLET PO (08:23)
[2023-10-26] MEDS: FLUTICASONE/SALMETEROL 115-21 MCG INHALER 1 PUFF 2 PUFF INHALATION ×2 (08:58→22:00)
[2023-10-26] MEDS: POTASSIUM CHLORIDE 20 MEQ PACKET (FOR LIQUID) 40 MEQ PO (09:58)
[2023-10-26] MEDS: POTASSIUM CHLORIDE INJ 40 MEQ in SODIUM CHLORIDE 0.9% IV 500 ML 130 MEQ IVPB (09:58)
--- NOTE | 2023-10-26 10:52 | PM.IMPN ---
Progress Note: A&P Assessment and Plan (1) SBO (small bowel obstruction): Code(s): K56.609 - Unspecified intestinal obstruction, unspecified as to partial versus complete obstruction Status: Acute (2) Chronic anticoagulation: Code(s): Z79.01 - custodial (current) use of anticoagulants Status: Chronic (3) Atypical chest pain: Code(s): R07.89 - Other chest pain Status: Acute (4) Chronic hyponatremia: Code(s): E87.1 - Hypo-osmolality and hyponatremia Status: Chronic (5) Paroxysmal A-fib: Code(s): I48.0 - Paroxysmal atrial fibrillation Status: Acute (6) Hypothyroidism: Qualifiers: Hypothyroidism type: unspecified Qualified Code(s): E03.9 - Hypothyroidism, unspecified Code(s): E03.9 - Hypothyroidism, unspecified Status: Acute (7) Chronic pain syndrome: Code(s): G89.4 - Chronic pain syndrome Status: Acute (8) Gastritis: Qualifiers: Gastritis type: unspecified gastritis Chronicity: chronic Gastritis bleeding: without bleeding Qualified Code(s): K29.50 - Unspecified chronic gastritis without bleeding Code(s): K29.70 - Gastritis, unspecified, without bleeding Status: Acute Plan SBO w Ischemia -Post op exploratory laparotomy and bowel resection. -General surgery following -advance to regular diet tolerating well -NG tube D/C -Pain control -Protonix IV -PT/OT -antimetic -IV fluids can discontinue -empiric ABX IV (Zosyn) Paroxysmal AFIB -eliquis on hold -Resume per surgery RUE edema -secondary to infilitrated IV -Doppler pending ELVIRA -Recommend sleep study O/P Diabetes ?-Accu-Cheks a.c. HS -sliding scale insulin -Diabetic diet -consult to dietitian -encourage lifestyle modifications and weight loss -Optimize Keyshawn inhibitors and statins.? -Watch for hypoglycemia/hypoglycemic protocol ordered Hypothyroidism -resume levothyroxine -TSH pending Code status: Full code per patient DVT prophylaxis: Eliquis in hold/scd's Stress ulcer prophylaxis: Protonix 40 daily PT/OT notes: PT/OT Pending Disposition: Patient admitted med/surg on tele with SBO recent bowel resection. PT/OT re-ordered pain better controlled. Plan SNF vs HH. -Patient's previous records reviewed on admission -ER notes reviewed in detail on admission -discussed all findings and current treatment plan with patient/Family/POA -Consultations reviewed for recommendations -Patient's disposition for safe discharge discussed with caser in Dictation performed by [employer] direct speech recognition software, therefore civil drafter variants and typographical errors may occur. Time Spent With Patient Time with patient: 25 - 35 minutes Subjective Date/time seen: 10/26/23 10:52 Interval history: Chief Complaint: Abdominal pain Narrative: 78-year-old female with past medical history including paroxysmal atrial fibrillation, obstructive sleep apnea with noncompliance with CPAP therapy, type 2 diabetes mellitus, rheumatoid arthritis, hypothyroidism, prior appendectomy and cholecystectomy as well as hysterectomy as well as multiple other comorbidities who presented to the ER via EMS due to abdominal pain and bloating.? Patient's abdominal pain symptoms started on the .? The pain is worsened with eating.? She has had significant amounts of nausea and a small amount of vomiting.? She reports that she has not had a bowel movement since before her last hospitalization on .? She is upset that she did not get more treatment for constipation during her last hospitalization.? She has taken her usual bowel medications at home but denies taking anything extra or [id number] medications.? She reports that she has not passed gas since her last hospitalization either.? The patient is repetitively asking for pain medications due to abdominal pain.? She reports that her abdominal pain has been a 10
[2023-10-26 12:33] LABS: Glucose Point of Care 211 mg/dl (65-105)
[2023-10-26] MEDS: INSULIN ASPART (*BKC) 100 UNITS/ML SUB-Q ×2 (12:38→18:13)
--- NOTE | 2023-10-26 13:03 | PM.PNGS ---
Progress Note: A&P Assessment and Plan (1) Ischemia, bowel: Code(s): K55.9 - Vascular disorder of intestine, unspecified Status: Acute Assessment and Plan: Tolerating regular diet and WBC improved. OK to resume anticoagulation. Patient has chronic narcotic dependence. Will increase oxycodone to 10-15 mg prn. Dilaudid for breakthrough pain. Possibly discharge in 1-2 days. (2) SBO (small bowel obstruction): Code(s): K56.609 - Unspecified intestinal obstruction, unspecified as to partial versus complete obstruction Status: Acute (3) Sepsis: Code(s): A41.9 - Sepsis, unspecified organism Status: Acute (4) Narcotic dependence: Code(s): F11.20 - Opioid dependence, uncomplicated Status: Acute Subjective Subjective Date/Time Seen: 10/26/23 13:03 Interval history: Bowels moving. Tolerating diet. Mostly issues with pain control. Exam GI: Inspection: incision (Dressing dry, no erythema, intact with gabriel) GI Palp: Yes Soft to palpation, Yes Tenderness to palpation present (GI) (Incisional) and No Guarding due to palpation present (GI) Auscultation: normal bowel sounds Objective Data Vital Signs Vital Signs: Vital Signs - 24 hr 10/25/23 14:00 10/25/23 16:00 10/25/23 17:34 Temperature 36.5 C Pulse Rate 70 63 74 Respiratory Rate 20 16 Blood Pressure 166/59 H Pulse Oximetry 100 94 Oxygen Delivery 10/25/23 17:40 10/25/23 20:07 10/25/23 20:00 Temperature 36.6 C Pulse Rate 64 Respiratory Rate 18 Blood Pressure 146/54 H 130/58 L Pulse Oximetry 100 Oxygen Delivery Room Air 10/26/23 04:41 10/25/23 20:00 10/26/23 00:00 Temperature 36.8 C Pulse Rate 65 64 64 Respiratory Rate 18 Blood Pressure 153/63 H Pulse Oximetry 100 Oxygen Delivery 10/26/23 04:00 10/26/23 08:22 10/26/23 08:23 Temperature Pulse Rate 66 64 64 Respiratory Rate Blood Pressure Pulse Oximetry Oxygen Delivery 10/26/23 08:30 Temperature Pulse Rate 62 Respiratory Rate Blood Pressure Pulse Oximetry Oxygen Delivery Intake/Output Intake/Output: Intake & Output 0210/24/23 10/25/23 10/26/23 23:59 23:59 23:59 23:59 Intake Total 3467 3330 1980 810 Output Total 2775 1000 600 Balance 692 3330 980 210 Meds/Results Medications: Active Medications Generic Name Dose Route Start Last Admin Trade Name Freq PRN Reason Stop Dose Admin Al Hydrox/Mg Hydrox/Simethicone 30 ml 10/19/23 14:30 Mag Hydrox/Al Hydrox/Simeth 30 Ml Udc BY MOUTH Q8H PRN Reflux Albuterol 2 puff 10/19/23 06:57 Albuterol Sulfate (*Sp) Aerosol 1 Puff INHALATION QIDRT PRN Shortness Of Breath Or Wheezing Amiodarone HCl 200 mg 10/20/23 08:00 10/26/23 08:23 Amiodarone Hcl 200 Mg Tablet PO 200 mg DAILY@0800 GINO Administration Dextrose 12.5 gm 10/19/23 14:39 Dextrose 50% 25 Gm/50 Ml Syringe IV PUSH PRN PRN Hypoglycemia Protocol Diazepam 5 mg 10/20/23 12:30 10/26/23 08:22 Diazepam Inj (*Crx) 10 Mg/2 Ml Syringe IV PUSH 5 mg Q12HR GINO Administration Enoxaparin Sodium 40 mg 10/23/23 17:00 10/26/23 08:21 Enoxaparin 40 Mg/0.4 Ml Syringe SUB-Q 40 mg DAILY GINO Administration Glucagon 1 mg 10/19/23 14:39 Glucagon For Inj 1 Mg Vial IM PRN PRN Hypoglycemia Protocol Glucose 15 gm 10/19/23 14:39 Glucose Oral Gel 15 Gm Of Glucse In 37.5 Gm Tube PO PRN PRN Hypoglycemia Protocol Hydralazine HCl 20 mg 10/20/23 08:39 10/21/23 20:08 Hydralazine Hcl 20 Mg/Ml Vial IV PUSH 20 mg Q4H PRN Administration SBP more than 160 - 2nd choice Hydrocortisone Sodium Succinate 50 mg 10/23/23 09:00 10/26/23 08:22 Hydrocortisone Sodium Succinate 100 Mg/2 Ml Vial IV PUSH 50 mg DAILY GINO Administration Hydromorphone HCl 1 mg 10/26/23 13:00 Hydromorphone Hcl Inj (*Crx) 1 Mg/Ml Syr IV PUSH Q3H PRN Breakthrough
[2023-10-26] MEDS: oxyCODONE/ACETAMINOPHEN (*CRX) 10-325 MG TABLET 1.5 TAB PO (15:19)
--- NOTE | 2023-10-26 17:06 | PC.NURSE ---
Received call from Wild, pt's secondary contact, stating that he would like to put a password on the patient's chart. Spoke with stephanie gomez who stated we cannot use passwords, but we could make pt confidential, not allowing anyone to get info over the phone, including him/the primary contact. Told him he could have the direct line to her room to call to get info as pt A/Ox3. Wild stated he would speak with pt to decide how they wanted to proceed.
[2023-10-26] MEDS: HYDROmorphone HCL INJ (*CRX) 1 MG/ML SYR IV PUSH (17:50)
[2023-10-26 18:13] LABS: Glucose Point of Care 229 mg/dl (65-105)
[2023-10-26] MEDS: oxyCODONE/ACETAMINOPHEN (*CRX) 10-325 MG TABLET 1 TAB PO (20:55)
[2023-10-27] VITALS (13 sets, daily range): BP systolic 129–153; BP diastolic 56–68; PULSE 56–69; RESP 16–21; TEMP 36.7–36.9; O2SAT 95–100
[2023-10-27] MEDS: HYDROmorphone HCL INJ (*CRX) 1 MG/ML SYR IV PUSH (02:29)
[2023-10-27] MEDS: PIPERACILLN/TAZ 3.375GM/NS50ML 3.375 GM/50 ML BAG IVPB ×3 (05:51→17:10)
[2023-10-27] MEDS: IBUPROFEN IV 800 MG/200 ML 800 MG/200 ML BAG 400 MG IVPB ×2 (05:52→13:19)
[2023-10-27] MEDS: oxyCODONE/ACETAMINOPHEN (*CRX) 10-325 MG TABLET 1 TAB PO (05:53)
[2023-10-27 06:02] LABS: Glucose Point of Care 133 mg/dl (65-105)
[2023-10-27 06:05] LABS: Hematocrit 27.6 % (37.0-47.0); Hemoglobin 8.7 g/dL (12.0-15.0); Mean Corpuscular HGB Conc 31.5 g/dl (32-36); Mean Corpuscular Hemoglobin 27.6 pg (26-34); Mean Corpuscular Volume 87.6 fl (80-100); Mean Platelet Volume 9.4 fl (7.4-10.4); Platelet Count Result 226 k/mm3 (150-375); Red Blood Count 3.15 M/mm3 (4.2-5.4); Red Cell Distribution Width 16.8 % (11.5-14.5)
[2023-10-27 06:18] LABS: Alanine Aminotransferase 12 U/L (6-35); Albumin Level 2.1 g/dL (3.5-5.1); Alkaline Phosphatase 45 U/L (38-126); Anion Gap 3 mmol/L (8-16); Aspartate Amino Transferase 21 U/L (14-36); Bilirubin,Total 0.7 mg/dL (0.2-1.3); Blood Urea Nitrogen 7 mg/dL (7-17); Calcium 7.7 mg/dL (8.4-10.2); Carbon Dioxide 24 mmol/L (22-30); Chloride 105 mmol/L (98-107); Estimated Glomerular Filt Rate > 60; Glucose 130 mg/dL (65-110); Sodium 132 mmol/L (137-145)
[2023-10-27] MEDS: HYDROCORTISONE SODIUM SUCCINATE 100 MG/2 ML VIAL 50 MG IV PUSH (08:33)
[2023-10-27] MEDS: AMIODARONE HCL 200 MG TABLET PO (08:35)
[2023-10-27] MEDS: NEBIVOLOL HCL 5 MG TABLET PO (08:35)
[2023-10-27] MEDS: diazePAM INJ (*CRX) 10 MG/2 ML SYRINGE 5 MG IV PUSH (08:36)
[2023-10-27] MEDS: PANTOPRAZOLE SODIUM IV 40 MG VIAL IV PUSH (08:36)
[2023-10-27] MEDS: APIXABAN 5 MG TABLET PO ×2 (08:40→20:45)
[2023-10-27] MEDS: POTASSIUM CHLORIDE 20 MEQ PACKET (FOR LIQUID) 40 MEQ PO ×2 (08:41→16:33)
[2023-10-27 08:44] LABS: Glucose Point of Care 114 mg/dl (65-105)
--- NOTE | 2023-10-27 09:28 | PCNFU ---
Nutrition Follow-Up Complete: Inadequate oral intake related to altered GI function as evidenced by NPO s/p small bowel resection Goal: Meet estimated nutrition needs as diet advanced Patient is progressing towards goal. We will continue current goal. Pt current nutrition is Regular. Last recorded weight is 63.6 kg, no new weight to report. Bowel Motility:+Bm reported 10/26 Labs Reviewed:Glu 130, Na 132, Hct 27.6,Hgb 8.7,K 3.0 Meds Noted:Zosyn, Eliquis, Protonix Skin:WNL Additional Notes:Patient has advanced to a regular diet. Tolerating breakfast today. Meal consumption has been 55-75% of meals over the weekend. Agree with diet orders. Monitoring diet advancement, bowel function, labs, weights, PO intake every 7 days.
--- NOTE | 2023-10-27 10:07 | PCPTNOTE ---
Attempted therapy session. Pt eating breakfast and requested therapy to come back.
[2023-10-27] MEDS: FLUTICASONE/SALMETEROL 115-21 MCG INHALER 1 PUFF 2 PUFF INHALATION ×2 (10:53→21:01)
[2023-10-27] MEDS: oxyCODONE/ACETAMINOPHEN (*CRX) 10-325 MG TABLET 1.5 TAB PO ×2 (11:17→20:44)
[2023-10-27 12:01] LABS: Glucose Point of Care 167 mg/dl (65-105)
--- NOTE | 2023-10-27 13:41 | PM.PNGS ---
Progress Note: A&P Assessment and Plan (1) Ischemia, bowel: Code(s): K55.9 - Vascular disorder of intestine, unspecified Status: Acute Assessment and Plan: Patient is postop day 8 following exploratory laparotomy with segmental mid jejunal small bowel resection secondary to strangulated small bowel from pelvic adhesions. She continues to slowly improve. Her diet was advanced over the weekend and she is now tolerating a regular diet. Potassium remains low and will be replaced today. Encouraged her to try sticking to the oral pain medication. She has narcotic dependence with her chronic back pain and has had issues with pain control, but this seems to be improving. Continue IV Zosyn (on day 9), WBC continues to trend down to 11,000 today. PT/OT following. CC is working on discharge planning and placement to SNF as [facility] declined. (2) SBO (small bowel obstruction): Code(s): K56.609 - Unspecified intestinal obstruction, unspecified as to partial versus complete obstruction Status: Acute (3) Sepsis: Code(s): A41.9 - Sepsis, unspecified organism Status: Acute (4) Narcotic dependence: Code(s): F11.20 - Opioid dependence, uncomplicated Status: Acute Plan I have discussed the patient's case and plan of care with Dr. Moore. Subjective Subjective Date/Time Seen: 10/27/23 13:41 Post Op day: 8 (Exploratory laparotomy with segmental mid jejunal small bowel resection with [id number] stapled anti peristaltic jejunal anastomosis) Patient reports: tolerating a regular diet, flatus, bowel movement and afebrile Interval history: Chart reviewed since last seen. She is now on the medical floor and eating a regular diet. She is taking it slow eating but reports tolerating it well. She has pain at her incision as expected with bending and movements. She has been transitioned to her oxycodone that she typically takes for her chronic back pain. She is working with PT/OT and is up to the chair this afternoon. No nausea or vomiting. Bowels are moving. Her potassium is low and was replaced yesterday, and it was only up to 3.1 today. Exam Const: General: comfortable and no acute distress Orientation/consciousness: patient oriented x3 GI: Inspection: non-distended and incision (dry and healing well, no erythema) GI Palp: Yes Soft to palpation, Yes Tenderness to palpation present (GI) and No Guarding due to palpation present (GI) Auscultation: normal bowel sounds Objective Data Vital Signs Vital Signs: Vital Signs - 24 hr 10/26/23 14:07 10/26/23 16:00 10/26/23 20:29 Temperature 98.5 F 98.1 F Pulse Rate 70 64 61 Respiratory Rate 15 18 Blood Pressure 150/48 H 138/59 L Pulse Oximetry 100 100 Oxygen Delivery Fraction of Inspired Oxygen 10/26/23 20:00 10/26/23 20:00 10/27/23 00:00 Temperature Pulse Rate 63 65 Respiratory Rate Blood Pressure Pulse Oximetry Oxygen Delivery Room Air Fraction of Inspired Oxygen 10/27/23 04:19 10/27/23 04:00 10/27/23 08:35 Temperature 98.2 F Pulse Rate 63 56 L 60 Respiratory Rate 16 Blood Pressure 129/61 Pulse Oximetry 99 Oxygen Delivery Fraction of Inspired Oxygen 10/27/23 08:35 10/27/23 08:47 10/27/23 10:53 Temperature Pulse Rate 60 60 Respiratory Rate 16 Blood Pressure Pulse Oximetry 99 100 Oxygen Delivery Room Air Room Air Fraction of Inspired Oxygen 21 Intake/Output Intake/Output: Intake & Output 10/24/23 10/25/23 10/26/23 10/27/23 23:59 23:59 23:59 23:59 Intake Total 3330 1980 1760 980 Output Total 1000 1800 550 Balance 3330 980 -40 430 Meds/Results Medications: Active Medications Generic Name Dose Route Start Last Admin Trade Name Freq PRN Reason Stop Dose Admin Al Hydrox/Mg Hydrox/Simethicone 30 ml 10/19/23 14:30 Mag Hydrox/Al Hydrox/Simeth 30 Ml Udc BY MOUTH Q8H PRN Reflux Albuterol 2 puff 10/19/23 06:57 Albuterol Sulfate (*Sp)
--- NOTE | 2023-10-27 13:44 | PM.IMPN ---
Progress Note: A&P Assessment and Plan (1) SBO (small bowel obstruction): Code(s): K56.609 - Unspecified intestinal obstruction, unspecified as to partial versus complete obstruction Status: Acute (2) Chronic anticoagulation: Code(s): Z79.01 - [facility] (current) use of anticoagulants Status: Chronic (3) Atypical chest pain: Code(s): R07.89 - Other chest pain Status: Acute (4) Chronic hyponatremia: Code(s): E87.1 - Hypo-osmolality and hyponatremia Status: Chronic (5) Paroxysmal A-fib: Code(s): I48.0 - Paroxysmal atrial fibrillation Status: Acute (6) Hypothyroidism: Qualifiers: Hypothyroidism type: unspecified Qualified Code(s): E03.9 - Hypothyroidism, unspecified Code(s): E03.9 - Hypothyroidism, unspecified Status: Acute (7) Chronic pain syndrome: Code(s): G89.4 - Chronic pain syndrome Status: Acute (8) Gastritis: Qualifiers: Gastritis type: unspecified gastritis Chronicity: chronic Gastritis bleeding: without bleeding Qualified Code(s): K29.50 - Unspecified chronic gastritis without bleeding Code(s): K29.70 - Gastritis, unspecified, without bleeding Status: Acute Plan SBO w Ischemia -Post op exploratory laparotomy and bowel resection. -General surgery following -advance to regular diet tolerating well -NG tube D/C -Pain control de-escalate to PO -Protonix IV -PT/OT -antimetic -IV fluids can discontinue -empiric ABX IV (Zosyn) Paroxysmal AFIB -eliquis resumed 10/27 -Resume per surgery RUE edema -secondary to infilitrated IV -Doppler Negative ELVIRA -Recommend sleep study O/P Diabetes ?-Accu-Cheks a.c. HS -sliding scale insulin -Diabetic diet -consult to dietitian -encourage lifestyle modifications and weight loss -Optimize Keyshawn inhibitors and statins.? -Watch for hypoglycemia/hypoglycemic protocol ordered Hypothyroidism -resume levothyroxine -TSH pending Code status: Full code per patient DVT prophylaxis: Eliquis in hold/scd's Stress ulcer prophylaxis: Protonix 40 daily PT/OT notes: PT/OT Pending Disposition: Patient admitted med/surg on tele with SBO recent bowel resection. PT/OT re-ordered pain better controlled. Plan SNF. Subjective Date/time seen: 10/27/23 13:44 Interval history: Chief Complaint: Abdominal pain Narrative: 78-year-old female with past medical history including paroxysmal atrial fibrillation, obstructive sleep apnea with noncompliance with CPAP therapy, type 2 diabetes mellitus, rheumatoid arthritis, hypothyroidism, prior appendectomy and cholecystectomy as well as hysterectomy as well as multiple other comorbidities who presented to the ER via EMS due to abdominal pain and bloating.? Patient's abdominal pain symptoms started on the .? The pain is worsened with eating.? She has had significant amounts of nausea and a small amount of vomiting.? She reports that she has not had a bowel movement since before her last hospitalization on .? She is upset that she did not get more treatment for constipation during her last hospitalization.? She has taken her usual bowel medications at home but denies taking anything extra or ieeh-nrz-ibmuwcj medications.? She reports that she has not passed gas since her last hospitalization either.? The patient is repetitively asking for pain medications due to abdominal pain.? She reports that her abdominal pain has been a 10/10 in intensity since onset.? She cries out even with lying the stethoscope slightly on her abdomen in the left periumbilical region.? She does have positive bowel sounds and no obvious organomegaly.? Patient is quite anxious regarding her pain i told her I would go and look at the orders that is previously been ordered and make adjustments.? While discussing this the patient ass to roll over onto her right side when nursing staff helped her rolled to her right side she repo
[2023-10-27] MEDS: diazePAM (*CRX) 5 MG TABLET PO (16:32)
[2023-10-27 17:20] LABS: Glucose Point of Care 208 mg/dl (65-105)
[2023-10-27] MEDS: INSULIN ASPART (*BKC) 100 UNITS/ML SUB-Q (17:57)
[2023-10-27] MEDS: AMOXICILLIN/CLAVULANATE K 875-125 MG TAB 1 TABLET PO (20:45)
[2023-10-28] VITALS (9 sets, daily range): BP systolic 135–155; BP diastolic 59–62; PULSE 63–86; RESP 17–20; TEMP 36.1–36.8; O2SAT 98–100
[2023-10-28] MEDS: oxyCODONE/ACETAMINOPHEN (*CRX) 10-325 MG TABLET 1.5 TAB PO ×2 (01:35→06:04)
[2023-10-28] MEDS: LEVOTHYROXINE SODIUM INJ 100 MCG/5 ML VIAL 44 MCG IV PUSH (06:03)
[2023-10-28 06:07] LABS: Hemoglobin 8.5 g/dL (12.0-15.0); Mean Corpuscular HGB Conc 31.5 g/dl (32-36); Mean Corpuscular Hemoglobin 27.4 pg (26-34); Mean Corpuscular Volume 87.1 fl (80-100); Mean Platelet Volume 9.7 fl (7.4-10.4); Platelet Count Result 247 k/mm3 (150-375); Red Cell Distribution Width 17.1 % (11.5-14.5)
[2023-10-28 06:21] LABS: Alanine Aminotransferase 12 U/L (6-35); Albumin Level 2.3 g/dL (3.5-5.1); Alkaline Phosphatase 45 U/L (38-126); Anion Gap 2 mmol/L (8-16); Aspartate Amino Transferase 19 U/L (14-36); Bilirubin,Total 0.7 mg/dL (0.2-1.3); Blood Urea Nitrogen 10 mg/dL (7-17); Calcium 7.7 mg/dL (8.4-10.2); Carbon Dioxide 23 mmol/L (22-30); Chloride 107 mmol/L (98-107); Estimated Glomerular Filt Rate 60; Glucose 109 mg/dL (65-110); Potassium 3.3 mmol/L (3.4-5.0); Sodium 132 mmol/L (137-145)
[2023-10-28 07:00] LABS: Glucose Point of Care 133 mg/dl (65-105)
[2023-10-28] MEDS: FLUTICASONE/SALMETEROL 115-21 MCG INHALER 1 PUFF 2 PUFF INHALATION (07:28)
--- NOTE | 2023-10-28 08:12 | PCPTNOTE ---
Patient refused treatment this session due to patient just getting cleaned up and wanting to rest at this time. Patient asked if PT can come back later.
[2023-10-28] MEDS: PANTOPRAZOLE 40 MG TABLET PO (09:20)
[2023-10-28] MEDS: APIXABAN 5 MG TABLET PO (09:20)
[2023-10-28] MEDS: AMIODARONE HCL 200 MG TABLET PO (09:20)
[2023-10-28] MEDS: AMOXICILLIN/CLAVULANATE K 875-125 MG TAB 1 TABLET PO (09:21)
[2023-10-28] MEDS: NEBIVOLOL HCL 5 MG TABLET PO (09:21)
[2023-10-28] MEDS: POTASSIUM CHLORIDE 20 MEQ ER TABLET 40 MEQ PO (09:21)
[2023-10-28] MEDS: HYDROCORTISONE SODIUM SUCCINATE 100 MG/2 ML VIAL 50 MG IV PUSH (09:22)
[2023-10-28] MEDS: diazePAM (*CRX) 5 MG TABLET PO (09:22)
--- NOTE | 2023-10-28 11:51 | PM.IMPN ---
Progress Note: A&P Assessment and Plan (1) SBO (small bowel obstruction): Code(s): K56.609 - Unspecified intestinal obstruction, unspecified as to partial versus complete obstruction Status: Acute (2) Chronic anticoagulation: Code(s): Z79.01 - senior care (current) use of anticoagulants Status: Chronic (3) Atypical chest pain: Code(s): R07.89 - Other chest pain Status: Acute (4) Chronic hyponatremia: Code(s): E87.1 - Hypo-osmolality and hyponatremia Status: Chronic (5) Paroxysmal A-fib: Code(s): I48.0 - Paroxysmal atrial fibrillation Status: Acute (6) Hypothyroidism: Qualifiers: Hypothyroidism type: unspecified Qualified Code(s): E03.9 - Hypothyroidism, unspecified Code(s): E03.9 - Hypothyroidism, unspecified Status: Acute (7) Chronic pain syndrome: Code(s): G89.4 - Chronic pain syndrome Status: Acute (8) Gastritis: Qualifiers: Gastritis type: unspecified gastritis Chronicity: chronic Gastritis bleeding: without bleeding Qualified Code(s): K29.50 - Unspecified chronic gastritis without bleeding Code(s): K29.70 - Gastritis, unspecified, without bleeding Status: Acute Plan SBO w Ischemia -Post op exploratory laparotomy and bowel resection. -General surgery following -advance to regular diet tolerating well -NG tube D/C -Pain control de-escalated to PO 10/27 -Protonix IV -PT/OT -antimetic -IV fluids can discontinue -empiric ABX IV (Zosyn) discontinued 08/26 Paroxysmal AFIB -eliquis resumed 10/27 -Resume per surgery RUE edema -secondary to infilitrated IV -Doppler Negative ELVIRA -Recommend sleep study O/P Diabetes ?-Accu-Cheks a.c. HS -sliding scale insulin -Diabetic diet -consult to dietitian -encourage lifestyle modifications and weight loss -Optimize Keyshawn inhibitors and statins.? -Watch for hypoglycemia/hypoglycemic protocol ordered Hypothyroidism -resume levothyroxine -TSH pending Code status: Full code per patient DVT prophylaxis: Eliquis in hold/scd's Stress ulcer prophylaxis: Protonix 40 daily PT/OT notes: PT/OT Pending Disposition: Patient admitted med/surg on tele with SBO recent bowel resection. PT/OT re-ordered pain better controlled. Plan SNF. Time Spent With Patient Time with patient: 15 - 25 minutes Subjective Date/time seen: 10/28/23 11:51 Interval history: Chief Complaint: Abdominal pain Narrative: 78-year-old female with past medical history including paroxysmal atrial fibrillation, obstructive sleep apnea with noncompliance with CPAP therapy, type 2 diabetes mellitus, rheumatoid arthritis, hypothyroidism, prior appendectomy and cholecystectomy as well as hysterectomy as well as multiple other comorbidities who presented to the ER via EMS due to abdominal pain and bloating.? Patient's abdominal pain symptoms started on the .? The pain is worsened with eating.? She has had significant amounts of nausea and a small amount of vomiting.? She reports that she has not had a bowel movement since before her last hospitalization on .? She is upset that she did not get more treatment for constipation during her last hospitalization.? She has taken her usual bowel medications at home but denies taking anything extra or lyhm-exc-[id number] medications.? She reports that she has not passed gas since her last hospitalization either.? The patient is repetitively asking for pain medications due to abdominal pain.? She reports that her abdominal pain has been a 10/10 in intensity since onset.? She cries out even with lying the stethoscope slightly on her abdomen in the left periumbilical region.? She does have positive bowel sounds and no obvious organomegaly.? Patient is quite anxious regarding her pain i told her I would go and look at the orders that is previously been ordered and make adjustments.? While discussing this the patient ass to roll over
[2023-10-28 12:33] LABS: Glucose Point of Care 230 mg/dl (65-105)
--- NOTE | 2023-10-28 12:57 | PCPTNOTE ---
Attempted to see a ptient for PT, however patient was eating lunch.
--- NOTE | 2023-10-28 13:17 | PM.PNGS ---
Progress Note: A&P Assessment and Plan (1) Ischemia, bowel: Code(s): K55.9 - Vascular disorder of intestine, unspecified Status: Acute Assessment and Plan: Patient is postop day 9 following exploratory laparotomy with segmental mid jejunal small bowel resection secondary to strangulated small bowel from pelvic adhesions. She continues to slowly improve. Her pain is controlled on oral analgesics. IV Zosyn was transitioned to Augmentin last night. WBC count is 12k today, but an overall downward trend and she is still receiving IV steroids. Okay from our standpoint to discharge the patient today on Augmentin for another 7 days. She has chronic narcotic dependence due to her chronic back pain, and can be discharged on her typical oxycodone prescription that she was taking preoperatively (Percocet 10-325 mg Q6H PRN for pain). Plan is for patient to go to SNF in [place]. Will have her follow-up with Dr. Moore in 1 week for staple removal. (2) SBO (small bowel obstruction): Code(s): K56.609 - Unspecified intestinal obstruction, unspecified as to partial versus complete obstruction Status: Acute (3) Sepsis: Code(s): A41.9 - Sepsis, unspecified organism Status: Acute (4) Narcotic dependence: Code(s): F11.20 - Opioid dependence, uncomplicated Status: Acute Plan I have discussed the patient's case and plan of care with Dr. Moore. Subjective Subjective Date/Time Seen: 10/28/23 13:17 Patient reports: no new complaints, tolerating a regular diet, flatus, bowel movement and afebrile Interval history: Patient doing well today. No acute events overnight. No new complaints today. Pain is controlled with oral analgesics. Exam Const: General: comfortable and no acute distress Orientation/consciousness: patient oriented x3 GI: Inspection: non-distended and incision (dry and healing well, no erythema) GI Palp: Yes Soft to palpation, Yes Tenderness to palpation present (GI) (incisional) and No Guarding due to palpation present (GI) Auscultation: normal bowel sounds Objective Data Vital Signs Vital Signs: Vital Signs - 24 hr 10/27/23 15:18 10/27/23 16:00 10/27/23 21:02 Temperature 98.0 F Pulse Rate 66 67 Respiratory Rate 18 Blood Pressure 153/56 H Pulse Oximetry 99 95 Oxygen Delivery Room Air 10/27/23 21:02 10/27/23 20:00 10/27/23 20:00 Temperature Pulse Rate 65 68 Respiratory Rate 16 Blood Pressure Pulse Oximetry Oxygen Delivery Room Air 10/28/23 00:00 10/27/23 22:00 10/28/23 04:00 Temperature 98.4 F Pulse Rate 70 66 63 Respiratory Rate 21 H Blood Pressure 142/68 H Pulse Oximetry 100 Oxygen Delivery 10/28/23 07:28 10/28/23 06:00 10/28/23 09:20 Temperature 97.0 F L Pulse Rate 86 72 Respiratory Rate 20 Blood Pressure 155/62 H Pulse Oximetry 98 99 Oxygen Delivery Room Air 10/28/23 09:21 10/28/23 08:00 Temperature Pulse Rate 72 Respiratory Rate Blood Pressure Pulse Oximetry Oxygen Delivery Room Air Intake/Output Intake/Output: Intake & Output 10/25/23 10/26/23 10/27/23 10/28/23 23:59 23:59 23:59 23:59 Intake Total 1980 1760 2020 740 Output Total 1000 1800 750 900 Balance 980 -40 1270 -160 Meds/Results Medications: Active Medications Generic Name Dose Route Start Last Admin Trade Name Freq PRN Reason Stop Dose Admin Albuterol 2 puff 10/19/23 06:57 Albuterol Sulfate (*Sp) Aerosol 1 Puff INHALATION QIDRT PRN Shortness Of Breath Or Wheezing Amiodarone HCl 200 mg 10/20/23 08:00 10/28/23 09:20 Amiodarone Hcl 200 Mg Tablet PO 200 mg DAILY@0800 IGNO Administration Amoxicillin/Clavulanate Potassium 1 tablet 10/27/23 21:00 10/28/23 09:21 Amoxicillin/Clavulanate K 875-125 Mg Tab PO 1 tablet Q12HR GINO Administration Apixaban 5 mg 10/27/23 09:00 10/28/23 09:20 Apixaban 5 Mg Tablet PO 5 mg Q12HR GINO Administration Dextrose 12.5 gm
--- NOTE | 2023-10-28 14:22 | PM.DS ---
DS: Admitting Diagnosis Discharge Date 10/28/2023 Admitting Diagnosis SBO with ischemia DS: Discharge Diagnosis Discharge Diagnosis (1) SBO (small bowel obstruction): Code(s): K56.609 - Unspecified intestinal obstruction, unspecified as to partial versus complete obstruction Status: Acute (2) Chronic anticoagulation: Code(s): Z79.01 - USP (current) use of anticoagulants Status: Chronic (3) Atypical chest pain: Code(s): R07.89 - Other chest pain Status: Acute (4) Chronic hyponatremia: Code(s): E87.1 - Hypo-osmolality and hyponatremia Status: Chronic (5) Paroxysmal A-fib: Code(s): I48.0 - Paroxysmal atrial fibrillation Status: Acute (6) Hypothyroidism: Qualifiers: Hypothyroidism type: unspecified Qualified Code(s): E03.9 - Hypothyroidism, unspecified Code(s): E03.9 - Hypothyroidism, unspecified Status: Acute (7) Chronic pain syndrome: Code(s): G89.4 - Chronic pain syndrome Status: Acute (8) Gastritis: Qualifiers: Gastritis type: unspecified gastritis Chronicity: chronic Gastritis bleeding: without bleeding Qualified Code(s): K29.50 - Unspecified chronic gastritis without bleeding Code(s): K29.70 - Gastritis, unspecified, without bleeding Status: Acute Plan SBO w Ischemia -PO Augmentin 7 days -PT/OT -May shower -PO pain control -Follow-UP [address] Moore for staple removal Paroxysmal AFIB -eliquis resumed 10/27 ELVIRA -Recommend sleep study O/P Hypothyroidism -Continue levothyroxine DS: Summary Hospital Course Reason for hospitalization: ABD pain SBO with ischemia Hospital Course: 78-year-old female with past medical history including paroxysmal atrial fibrillation, obstructive sleep apnea with noncompliance with CPAP therapy, type 2 diabetes mellitus, rheumatoid arthritis, hypothyroidism, prior appendectomy and cholecystectomy as well as hysterectomy as well as multiple other comorbidities who presented to the ER via EMS due to abdominal pain and bloating.? Patient's abdominal pain symptoms started on the .? The pain is worsened with eating.? She has had significant amounts of nausea and a small amount of vomiting.? She reports that she has not had a bowel movement since before her last hospitalization on .? She is upset that she did not get more treatment for constipation during her last hospitalization.? She has taken her usual bowel medications at home but denies taking anything extra or lerg-kff-bwqztmc medications.? She reports that she has not passed gas since her last hospitalization either.? The patient is repetitively asking for pain medications due to abdominal pain.? She reports that her abdominal pain has been a 10/10 in intensity since onset.? She cries out even with lying the stethoscope slightly on her abdomen in the left periumbilical region.? She does have positive bowel sounds and no obvious organomegaly.? Patient is quite anxious regarding her pain i told her I would go and look at the orders that is previously been ordered and make adjustments.? While discussing this the patient ass to roll over onto her right side when nursing staff helped her rolled to her right side she reported substernal chest pain that was also a 8/10 in intensity.? She is not having any diaphoresis or increased nausea time onset of this chest discomfort.? Stat EKG performed at that time demonstrated no acute changes.? Stat labs were ordered at that time but phlebotomy has been having difficulty obtaining the patient's labs. 10/19:? Patient continues to have abdominal pain.? When I enter the room patient is sitting on her side with her knees up to her abdomen clutching her stomach.? Patient states that the pain has not subsided.? She recently got IV pain medication in hopes that this will work soon.? She states that yesterday prior to coming to the hospital she had a
[2023-10-28] MEDS: oxyCODONE/ACETAMINOPHEN (*CRX) 10-325 MG TABLET 1 TAB PO (14:57)
== END 2023-10-28 15:00 | DRG 853 ==
LOC: ANHED 18:47 → ANH3MEDSUR 23:53 → ANHICU 10-19 14:28 → ANHIMU 10-20 12:33 → ANH3MED 10-23 18:25
PROVIDERS: Internal Medicine; Internal Medicine Critical Care Medicine; Nurse Practitioner Family; Surgery; Admitting Provider Internal Medicine; Emergency Provider Physician Assistant; PCP Family Medicine; Visit Provider Internal Medicine
PROC: 0DB80ZZ Excision of Small Intestine, Open Approach (ICD-10-PCS; CPT 49000; principal; 2023-10-19 12:00)
DX: A41.9 Sepsis, unspecified organism (principal); K55.029 Acute infarction of small intestine, extent unspecified; K56.50 Intestinal adhesions [bands], unspecified as to partial versus complete obstruction; E87.1 Hypo-osmolality and hyponatremia; I48.0 Paroxysmal atrial fibrillation; G89.4 Chronic pain syndrome; G47.33 Obstructive sleep apnea (adult) (pediatric); M06.9 Rheumatoid arthritis, unspecified; E11.42 Type 2 diabetes mellitus with diabetic polyneuropathy; K21.9 Gastro-esophageal reflux disease without esophagitis; M15.9 Polyosteoarthritis, unspecified; N99.0 Postprocedural (acute) (chronic) kidney failure; K44.9 Diaphragmatic hernia without obstruction or gangrene; E78.5 Hyperlipidemia, unspecified; E03.9 Hypothyroidism, unspecified; K58.9 Irritable bowel syndrome, unspecified; I11.0 Hypertensive heart disease with heart failure; I50.9 Heart failure, unspecified; E86.0 Dehydration; K29.70 Gastritis, unspecified, without bleeding; I25.10 Atherosclerotic heart disease of native coronary artery without angina pectoris; K59.03 Drug induced constipation; T40.2X5A Adverse effect of other opioids, initial encounter; Z79.82 Long term (current) use of aspirin; Z79.01 Long term (current) use of anticoagulants; Z86.718 Personal history of other venous thrombosis and embolism; Z95.5 Presence of coronary angioplasty implant and graft; Z87.11 Personal history of peptic ulcer disease; Z90.49 Acquired absence of other specified parts of digestive tract; Z90.710 Acquired absence of both cervix and uterus
CPT/HCPCS: 36415; 36430; 36569; 74177; 80053; 81003; 82948; 83036; 83605; 83690; 83735; 84100; 84484; 85025; 85027; 85610; 85730; 86140; 86850; 86900; 86901; 86920; 87040; 88307; 93005; 93971; 94640; 96361; 96367; 96375; 96376; 97110; 97116; 97161; 97166; 97530; 97535; 99285; A9270; C1751; C9113; G0378; J0330; J0360; J1100; J1170; J1200; J1650; J1720; J1741; J1815; J2270; J2405; J2543; J2704; J2765; J3010; J3360; J3475; J3480; J7030; J7040; J7050; J7120; P9016; P9041; Q9967

== ENCOUNTER 2023-12-10 13:07 | Emergency (ER) | payer MEDICARE, BC, SELFPAY ==
--- NOTE | ~2023-12-10 | CT_ITS ---
EXAMINATION: CT abdomen pelvis w con DATE: 12/10/2023 14:50 INDICATION: Weakness and abdomen pain. TECHNIQUE: Computed tomography (CT) of the abdomen and pelvis was performed with 100 cc Omnipaque 350 intravenous contrast. The dose-length product was 326.27 mGy-cm. Automated exposure control and iter ative reconstruction technique were employed. COMPARISON: CT dated 10/18/2023 FINDINGS: Lung bases unremarkable. Heart size normal. Moderate size hiatal hernia. Status post cholec ystectomy with expected prominence of the bile ducts. There are liver and splenic cysts. There is vallejo creatic atrophy. The adrenal glands and kidneys are unremarkable. Nonobstructive bowel gas pattern. B ladder is decompressed. No abnormal pelvic masses or fluid collections. There is thickening of the ga stric antrum, consistent with gastritis. Severe lumbar spondylosis with grade 1 degenerative spondylo listhesis at L4-5 and L5-S1. IMPRESSION: 1. No acute abdominal abnormality. 2: Persistent antral gastritis. 3: Status post cholecystectomy with expected prominence of the bile ducts. Reviewed, dictated and finalized at location B.
--- NOTE | ~2023-12-10 | XR_ITS ---
EXAMINATION: XR chest 2V 12/10/2023 14:53 INDICATION: Weakness and hypertension. Colon resection PROCEDURE: 2 view chest COMPARISON: Comparison to multiple prior studies sequentially, with oldest reviewed study dated 05/25. FINDINGS: The lungs are clear. The cardiomediastinal silhouette is within normal limits. There are no pleural effusions. There is no pneumothorax suspected. There is atherosclerosis of the aorta. IMPRESSION: 1: NO ACUTE CARDIOPULMONARY DISEASE. Reviewed, dictated and finalized at location B.
[2023-12-10 13:15] VITALS: BP 170/62; PULSE 65; RESP 13; TEMP 36.4; O2SAT 99
--- NOTE | 2023-12-10 13:19 | ECG_ITS ---
Measurements Intervals [place] Rate: 60 P: 87 AR: 197 QRS: -23 QRSD: 101 T: 0 QT: 247 QTc: 249 Interpretive Statements SINUS RHYTHM LEFT VENTRICULAR HYPERTROPHY AND ST-T CHANGE BORDERLINE ST-T WAVE ABNORMALITY- ANT/INF LEADS BASELINE ARTIFACT- I, II, III, AVR, AVL, AVF BORDERLINE ECG COMPARED TO ECG 10/19/2023 04:49:45 NO SIGNIFICANT CHANGES Electronically Signed On 12-10-2023 13:47:36 CDT by Jasvir Steele D.O.
[2023-12-10 13:21] VITALS: PULSE 64
--- NOTE | 2023-12-10 13:57 | ED.GENADULT ---
HPI - General Adult General Chief complaint: Weakness Stated complaint: doesnt feel good Time Seen by Provider: 12/10/23 13:42 History of Present Illness HPI narrative: 78-year-old female presenting to the emergency department for evaluation of increased generalized weakness over the course of the last 4 days. Patient noticed that her blood pressures have been running high. Patient does have a friend that typically helps sort out her medications but patient notice that 1 day she felt she was taking more medications in the morning and the next day she had less medications allotted for the morning. Patient did have small bowel surgery by Dr. Moore approximately 6 weeks ago. Patient is still complaining of persistent abdominal pain. Related Data Home Medications Medication Instructions Recorded Confirmed aspirin 81 mg tablet,delayed 81 mg PO DAILY 07/29/19 12/02/23 release (Adult Low Dose Aspirin) nitroglycerin 0.4 mg sublingual 0.4 mg sublingual Q5M PRN Chest 07/29/19 12/02/23 tablet Pain cetirizine 10 mg capsule 10 mg PO DAILY 03/15/23 12/02/23 ezetimibe 10 mg tablet 10 mg PO DAILY 03/15/23 12/02/23 folic acid 1 mg tablet 3 mg PO DAILY 03/15/23 12/02/23 albuterol sulfate 90 mcg/actuation 2 puff inhalation QID PRN 06/22/23 12/02/23 aerosol inhaler Shortness Of Breath Or Wheezing furosemide 40 mg tablet 20 mg PO DAILY 06/22/23 12/02/23 methotrexate sodium 2.5 mg tablet 2.5 mg PO WEEKLY 06/22/23 12/02/23 prednisone 10 mg tablet 10 mg PO DAILY 08/14/23 12/02/23 amiodarone 200 mg tablet (Pacerone) 200 mg PO DAILY 09/11/23 12/02/23 Allergies Allergy/AdvReac Type Severity Reaction Status Date / Time No Known Allergies Allergy Verified 12/10/23 13:22 Review of Systems Review of Systems: All systems reviewed & are unremarkable except as noted in HPI and below PMFSH Past Medical History Medical History (Updated 12/10/23 @ 17:45 by Reinier Ojeda MD) Anxiety Asthma Chronic anticoagulation Chronic hyponatremia Chronic pain syndrome Chronic, continuous use of opioids Coronary artery disease Angioplasty of a diagonal lesion in 01/2018. Cardiac catheterization 06/2019 showed patent coronary arteries. Deep venous thrombosis Degenerative joint disease involving multiple joints Depression Folic acid deficiency Gastroesophageal reflux disease Heart failure with preserved ejection fraction Hiatal hernia Hyperlipidemia Hypertension Hypothyroidism Irritable bowel syndrome More than 50 percent stenosis of right internal carotid artery Obstructive sleep apnea Noncompliant with CPAP. Paroxysmal atrial fibrillation Peptic ulcer Peripheral neuropathy Pneumonia Renal artery stenosis Rheumatoid arthritis Seasonal allergies Type 2 diabetes mellitus Vitamin B 12 deficiency Vitamin D deficiency Surgical History Surgical History (Updated 12/02/23 @ 11:32 by Beulah Saenz MA) History of appendectomy History of arthroscopy of both shoulders History of cardiac catheterization Angioplasty of a diagonal stenosis 01/2018. Cardiac catheterization 06/2019 showed patent coronary arteries. History of carpal tunnel release History of cataract extraction History of cholecystectomy History of exploratory laparotomy Exploratory laparotomy with segmental mid jejunal small bowel resection with [id number] stapled anti peristaltic jejunal anastomosis 10/19/23 History of foot surgery History of hysterectomy History of phacoemulsification of cataract with intraocular lens implantation Family History Family History Grandparent Diabetes mellitus Father Acute myocardial infarction Diabetes mellitus Hypertension Mother Hypertension Diabetes mellitus Sibling Diabetes mellitus Hypertension Other Family history of cardiovascular disease Family history of malignant neoplasm of brain Social History Social History (Reviewed 12/02/23 @ 11:32 by Beulah Kitchen
[2023-12-10 14:20] LABS: Basophils Absolute Auto 0.1 K/mm3 (0.0-0.1); Basophils Percent Auto 0.5 % (0.2-1.2); Eosinophils Absolute Auto 0.1 K/mm3 (0-0.3); Eosinophils Percent Auto 0.5 % (0-4.4); Hematocrit 32.4 % (37.0-47.0); Hemoglobin 10.1 g/dL (12.0-15.0); Immature Granulocyte Absolute 0.05 K/mm3 (0.00-0.031); Immature Granulocyte Percent A 0.5 % (0-0.5); Lymphocytes Absolute Auto 2.81 K/mm3 (0.9-3.2); Lymphocytes Percent Auto 29.1 % (18.3-44.2); Mean Corpuscular HGB Conc 31.2 g/dl (32-36); Mean Corpuscular Hemoglobin 26.3 pg (26-34); Mean Corpuscular Volume 84.4 fl (80-100); Mean Platelet Volume 10.5 fl (7.4-10.4); Monocytes Absolute Auto 0.6 K/mm3 (0.1-0.6); Monocytes Percent Auto 6.3 % (2.6-8.5); Neutrophils Absolute Auto 6.1 K/mm3 (1.3-6.7); Neutrophils Percent Auto 63.1 % (45.5-73.1); Platelet Count Result 354 k/mm3 (150-375); Red Blood Count 3.84 M/mm3 (4.2-5.4); Red Cell Distribution Width 15.3 % (11.5-14.5); White Blood Count 9.6 K/mm3 (4.5-10.0)
[2023-12-10 14:24] LABS: Alanine Aminotransferase 16 U/L (6-35); Albumin Level 3.9 g/dL (3.5-5.1); Alkaline Phosphatase 76 U/L (38-126); Anion Gap 8 mmol/L (4-12); Aspartate Amino Transferase 30 U/L (14-36); Bilirubin,Total 1.2 mg/dL (0.2-1.3); Blood Urea Nitrogen 19 mg/dL (7-17); Carbon Dioxide 32 mmol/L (22-30); Chloride 96 mmol/L (98-107); Estimated Glomerular Filt Rate 48; Glucose 157 mg/dL (65-110); Potassium 2.9 mmol/L (3.4-5.0); Sodium 136 mmol/L (137-145)
[2023-12-10 14:43] LABS: Influenza A QL RT-PCR Negative (Negative); Influenza B QL RT-PCR Negative (Negative); RSV RNA, RT-PCR Negative (Negative); SARS-CoV-2 RNA PCR Negative (Negative)
[2023-12-10 15:05] LABS: Bacteria Urine None Seen /hpf; Need Manual Microscopic Reviewed; RBC Urine 0-2 /hpf (0-2); Squamous Epithelial Cell Urine None Seen /hpf (Few); WBC Urine 0-5 /hpf (0-3)
[2023-12-10 15:11] LABS: Appearance Urine Clear (Clear); Color Urine Yellow (Yellow); Specific Grav Ur 1.015 (1.001-1.035); pH Urine 5.5 (5.0-9.0)
[2023-12-10 15:12] LABS: Bilirubin Urine 1+ (Negative); Blood Urine Negative (Negative); Glucose Urine UA Negative (Negative); Ketones Urine Trace mg/dL (Negative); Leukocyte Esterase Ur Negative LEU/UL (Negative); Nitrate Urine Negative (Negative); Protein Urine Negative (Negative)
[2023-12-10 15:13] LABS: Add Urine Microscopic? YES
[2023-12-10 15:16] VITALS: BP 146/43; PULSE 65; RESP 10; O2SAT 96
[2023-12-10 16:47] VITALS: BP 111/44; PULSE 66; RESP 11; O2SAT 98
[2023-12-10] MEDS: POTASSIUM CHLORIDE 20 MEQ PACKET (FOR LIQUID) 40 MEQ PO (16:56)
[2023-12-10] MEDS: SODIUM CHLORIDE 0.9% IV 500 ML 999 ML IV CONT (16:56)
[2023-12-10 18:15] VITALS: BP 150/60; PULSE 66; RESP 13; O2SAT 100
== END 2023-12-10 18:19 | disposition home or self-care (01) ==
PROVIDERS: Emergency Provider Emergency Medicine; PCP Family Medicine
DX: R53.1 Weakness (principal); T50.901A Poisoning by unspecified drugs, medicaments and biological substances, accidental (unintentional), initial encounter; Z20.822 Contact with and (suspected) exposure to COVID-19; J45.909 Unspecified asthma, uncomplicated; I50.9 Heart failure, unspecified; I11.0 Hypertensive heart disease with heart failure; I48.0 Paroxysmal atrial fibrillation; E87.1 Hypo-osmolality and hyponatremia; E53.8 Deficiency of other specified B group vitamins; E78.5 Hyperlipidemia, unspecified; E03.9 Hypothyroidism, unspecified; E55.9 Vitamin D deficiency, unspecified; E11.42 Type 2 diabetes mellitus with diabetic polyneuropathy; G89.4 Chronic pain syndrome; G47.33 Obstructive sleep apnea (adult) (pediatric); K21.9 Gastro-esophageal reflux disease without esophagitis; M19.90 Unspecified osteoarthritis, unspecified site; M06.9 Rheumatoid arthritis, unspecified; Z87.01 Personal history of pneumonia (recurrent); Z87.11 Personal history of peptic ulcer disease; Z86.718 Personal history of other venous thrombosis and embolism; Z79.82 Long term (current) use of aspirin; Z79.01 Long term (current) use of anticoagulants; R94.31 Abnormal electrocardiogram [ECG] [EKG]; I51.7 Cardiomegaly; K29.70 Gastritis, unspecified, without bleeding; Z90.49 Acquired absence of other specified parts of digestive tract; E87.6 Hypokalemia
CPT/HCPCS: 36415; 71046; 74177; 80053; 81001; 85025; 87637; 93005; 96360; 99284; A9270; J7040; Q9967

== ENCOUNTER 2024-01-14 08:19 | Emergency (ER) | payer MEDICARE, BC, SELFPAY ==
--- NOTE | ~2024-01-14 | XR_ITS ---
EXAMINATION: XR chest 2V DATE: 01/14/2024 09:07 INDICATION: Midsternal chest pain. TECHNIQUE: Frontal and lateral views of the chest were obtained. COMPARISON: Chest 2 view 12/10/2023, CT abdomen and pelvis 12/10/2023 FINDINGS: There is no pneumonia, pleural effusion, or pneumothorax. Cardiomegaly is noted. There is a moderate-sized hiatal hernia. There are suture anchors in right humeral head. IMPRESSION: 1. Cardiomegaly. 2. Moderate-sized hiatal hernia. Reviewed, dictated and finalized at location A.
--- NOTE | 2024-01-14 08:22 | ECG_ITS ---
SEE SCANNED COPY FOR CONFIRMED REPORT. MTDD
[2024-01-14 08:32] VITALS: BP 230/76; PULSE 71; RESP 12; O2SAT 100
[2024-01-14 08:45] VITALS: PULSE 67; RESP 15; O2SAT 99
[2024-01-14 08:48] LABS: Basophils Absolute Auto 0.1 K/mm3 (0.0-0.1); Basophils Percent Auto 0.7 % (0.2-1.2); Eosinophils Absolute Auto 0.1 K/mm3 (0-0.3); Eosinophils Percent Auto 1.4 % (0-4.4); Hematocrit 33.7 % (37.0-47.0); Hemoglobin 10.1 g/dL (12.0-15.0); Immature Granulocyte Absolute 0.03 K/mm3 (0.00-0.031); Immature Granulocyte Percent A 0.4 % (0-0.5); Lymphocytes Absolute Auto 3.19 K/mm3 (0.9-3.2); Lymphocytes Percent Auto 43.9 % (18.3-44.2); Mean Corpuscular Hemoglobin 24.5 pg (26-34); Mean Corpuscular Volume 81.8 fl (80-100); Mean Platelet Volume 10.4 fl (7.4-10.4); Monocytes Absolute Auto 0.4 K/mm3 (0.1-0.6); Monocytes Percent Auto 5.8 % (2.6-8.5); Neutrophils Absolute Auto 3.5 K/mm3 (1.3-6.7); Neutrophils Percent Auto 47.8 % (45.5-73.1); Platelet Count Result 242 k/mm3 (150-375); Red Blood Count 4.12 M/mm3 (4.2-5.4); Red Cell Distribution Width 15.3 % (11.5-14.5); White Blood Count 7.3 K/mm3 (4.5-10.0)
[2024-01-14 08:57] LABS: Alanine Aminotransferase 14 U/L (6-35); Albumin Level 4.2 g/dL (3.5-5.1); Alkaline Phosphatase 91 U/L (38-126); Anion Gap 7 mmol/L (4-12); Aspartate Amino Transferase 25 U/L (14-36); Bilirubin,Total 0.9 mg/dL (0.2-1.3); Blood Urea Nitrogen 10 mg/dL (7-17); Calcium 9.4 mg/dL (8.4-10.2); Carbon Dioxide 30 mmol/L (22-30); Chloride 104 mmol/L (98-107); Estimated Glomerular Filt Rate > 60; Glucose 135 mg/dL (65-110); Lipase 44 U/L (23-300); Potassium 3.2 mmol/L (3.4-5.0); Sodium 141 mmol/L (137-145)
[2024-01-14 08:58] LABS: INR 1.1; Prothrombin Time 14.3 Seconds (11.1-14.7)
[2024-01-14 08:59] LABS: Partial Thromboplastin Time 32.4 Seconds (22.3-36.8)
[2024-01-14 09:00] VITALS: BP 199/77; PULSE 63; RESP 12; O2SAT 99
[2024-01-14 09:08] LABS: Troponin I < 0.012 ng/mL (0.000-0.034)
[2024-01-14 09:17] VITALS: PULSE 73; RESP 17; O2SAT 98
[2024-01-14] MEDS: MORPHINE SULFATE (*CRX) 4 MG/ML INJ IV PUSH (09:47)
[2024-01-14 10:31] VITALS: BP 155/54; PULSE 62; RESP 12; O2SAT 96
[2024-01-14 11:17] VITALS: BP 161/54; PULSE 60; RESP 12; O2SAT 98
--- NOTE | 2024-01-14 12:41 | ED.GENADULT ---
HPI - General Adult General Chief complaint: Chest Pain Stated complaint: chest pain since last night Time Seen by Provider: 01/14/24 08:26 History of Present Illness HPI narrative: Patient is an 79-year-old female who presents ER with chest pain. Central. On since last night. Constant. No radiation. Patient very anxious. Symptoms are worse with touching her chest. No pain with deep breath. No nausea or vomiting. Reports her blood pressures been greater than 200 systolic at home. Related Data Home Medications Medication Instructions Recorded Confirmed aspirin 81 mg tablet,delayed 81 mg PO DAILY 07/29/19 12/02/23 release (Adult Low Dose Aspirin) nitroglycerin 0.4 mg sublingual 0.4 mg sublingual Q5M PRN Chest 07/29/19 12/02/23 tablet Pain cetirizine 10 mg capsule 10 mg PO DAILY 03/15/23 12/02/23 ezetimibe 10 mg tablet 10 mg PO DAILY 03/15/23 12/02/23 folic acid 1 mg tablet 3 mg PO DAILY 03/15/23 12/02/23 albuterol sulfate 90 mcg/actuation 2 puff inhalation QID PRN 06/22/23 12/02/23 aerosol inhaler Shortness Of Breath Or Wheezing furosemide 40 mg tablet 20 mg PO DAILY 06/22/23 12/02/23 methotrexate sodium 2.5 mg tablet 2.5 mg PO WEEKLY 06/22/23 12/02/23 prednisone 10 mg tablet 10 mg PO DAILY 08/14/23 12/02/23 amiodarone 200 mg tablet (Pacerone) 200 mg PO DAILY 09/11/23 12/02/23 Allergies Allergy/AdvReac Type Severity Reaction Status Date / Time No Known Allergies Allergy Verified 12/10/23 13:22 Review of Systems Review of Systems: All systems reviewed & are unremarkable except as noted in HPI and below Constitutional: Constitutional: Reports no additional constitutional complaints ENT: Reports system reviewed and no additional complaints, except as documented Cardiovascular: Cardiovascular: Reports chest pain, Denies rapid heart rate and Denies radiating jaw, neck or arm pain Respiratory: Respiratory: Reports no additional respiratory complaints Gastrointestinal: Gastrointestinal: Reports no additional gastrointestinal complaints Musculoskeletal: Musculoskeletal: Reports no additional musculoskeletal complaints [facility] Past Medical History Medical History (Updated 01/14/24 @ 13:36 by Gavin Phillips MD) Anxiety Asthma Chronic anticoagulation Chronic hyponatremia Chronic pain syndrome Chronic, continuous use of opioids Coronary artery disease Angioplasty of a diagonal lesion in 01/2018. Cardiac catheterization 06/2019 showed patent coronary arteries. Deep venous thrombosis Degenerative joint disease involving multiple joints Depression Folic acid deficiency Gastroesophageal reflux disease Heart failure with preserved ejection fraction Hiatal hernia Hyperlipidemia Hypertension Hypothyroidism Irritable bowel syndrome More than 50 percent stenosis of right internal carotid artery Obstructive sleep apnea Noncompliant with CPAP. Paroxysmal atrial fibrillation Peptic ulcer Peripheral neuropathy Pneumonia Renal artery stenosis Rheumatoid arthritis Seasonal allergies Type 2 diabetes mellitus Vitamin B 12 deficiency Vitamin D deficiency Surgical History Surgical History (Updated 12/02/23 @ 11:32 by Beulah Saenz MA) History of appendectomy History of arthroscopy of both shoulders History of cardiac catheterization Angioplasty of a diagonal stenosis 01/2018. Cardiac catheterization 06/2019 showed patent coronary arteries. History of carpal tunnel release History of cataract extraction History of cholecystectomy History of exploratory laparotomy Exploratory laparotomy with segmental mid jejunal small bowel resection with foau-ar-liku stapled anti peristaltic jejunal anastomosis 10/19/23 History of foot surgery History of hysterectomy History of phacoemulsification of cataract with intraocular lens implantation Family History Family History Grandparent Diabetes mellitus Father Acute myocardial infarction Diabetes nguyễni
[2024-01-14 12:42] LABS: Troponin I 0.018 ng/mL (0.000-0.034)
== END 2024-01-14 13:56 | disposition home or self-care (01) ==
PROVIDERS: Emergency Provider Emergency Medicine; PCP Family Medicine
DX: R07.89 Other chest pain (principal); I11.0 Hypertensive heart disease with heart failure; Z79.82 Long term (current) use of aspirin; J45.909 Unspecified asthma, uncomplicated; I25.10 Atherosclerotic heart disease of native coronary artery without angina pectoris; I50.9 Heart failure, unspecified; Z79.01 Long term (current) use of anticoagulants; Z86.718 Personal history of other venous thrombosis and embolism; E78.5 Hyperlipidemia, unspecified; E03.9 Hypothyroidism, unspecified; G47.33 Obstructive sleep apnea (adult) (pediatric); E11.9 Type 2 diabetes mellitus without complications; E53.8 Deficiency of other specified B group vitamins; E55.9 Vitamin D deficiency, unspecified; I48.0 Paroxysmal atrial fibrillation
CPT/HCPCS: 36415; 71046; 80053; 83690; 84484; 85025; 85610; 85730; 93005; 96374; 99284; J2270

== ENCOUNTER 2024-03-05 08:35 | Emergency (ER) | payer MEDICARE, BC, SELFPAY ==
[2024-03-05] VITALS (7 sets, daily range): BP systolic 152–182; BP diastolic 45–81; PULSE 53–61; RESP 12–22; TEMP 36.6; O2SAT 95–100
--- NOTE | ~2024-03-05 | CT_ITS ---
EXAMINATION: CT brain wo con DATE: 03/05/2024 10:46 INDICATION: Dizziness. TECHNIQUE: Computed tomography (CT) of the head was performed without intravenous contrast. The mA wa s adjusted according to patient size. Iterative reconstruction technique was employed. The dose-lengt h product was 681.00 mGy-cm. COMPARISON: Head CT 10/13/2023 FINDINGS: There is no intracranial hemorrhage, acute infarction, or abnormal intracranial mass lesion . The ventricles are normal in size. There are likely changes of ocular lens replacement surgeries. T here is mild mucosal thickening in the paranasal sinuses. There is a small left mastoid effusion. IMPRESSION: 1. Normal brain. Reviewed, dictated and finalized at location A. IMPRESSION: 1. Normal brain.
--- NOTE | 2024-03-05 08:44 | ECG_ITS ---
Test Date: 2024-03-05 08:49:19 Measurements Intervals [place] Rate: 59 P: 18 GA: 192 QRS: -30 QRSD: 93 T: 30 QT: 472 QTc: 468 Interpretive Statements SINUS BRADYCARDIA LEFT ANTERIOR FASCICULAR BLOCK MODERATE VOLTAGE CRITERIA FOR LVH, CONSIDER NORMAL VARIANT [MEETS CRITERIA IN ONE OF: R(aVL), S(V1), R(V5), R(V5/V6)+S(V1)] ABNORMAL ECG No previous ECG available for comparison Electronically Signed On 03-05-2024 10:58:13 CDT by Maximino Jenkins M.D.
[2024-03-05 10:12] LABS: Appearance Urine Clear (Clear); Bilirubin Urine Negative (Negative); Blood Urine Negative (Negative); Color Urine Yellow (Yellow); Glucose Urine UA Negative (Negative); Ketones Urine Negative (Negative); Leukocyte Esterase Ur Negative LEU/UL (Negative); Nitrate Urine Negative (Negative); Protein Urine Negative (Negative); Specific Grav Ur 1.005 (1.001-1.035); Urobilinogen Urine 0.2 mg/dL (<2.0); pH Urine 6.5 (5.0-9.0)
[2024-03-05 10:21] LABS: Add Urine Microscopic? NO
[2024-03-05] MEDS: SODIUM CHLORIDE 0.9% IV 1,000 ML 150 ML IV CONT (10:32)
[2024-03-05 10:37] LABS: Basophils Absolute Auto 0.1 K/mm3 (0.0-0.1); Basophils Percent Auto 0.8 % (0.2-1.2); Eosinophils Absolute Auto 0.1 K/mm3 (0-0.3); Eosinophils Percent Auto 0.7 % (0-4.4); Hematocrit 31.6 % (37.0-47.0); Hemoglobin 9.7 g/dL (12.0-15.0); Immature Granulocyte Absolute 0.03 K/mm3 (0.00-0.031); Immature Granulocyte Percent A 0.3 % (0-0.5); Lymphocytes Absolute Auto 3.03 K/mm3 (0.9-3.2); Lymphocytes Percent Auto 31.2 % (18.3-44.2); Mean Corpuscular HGB Conc 30.7 g/dl (32-36); Mean Corpuscular Hemoglobin 23.7 pg (26-34); Mean Corpuscular Volume 77.3 fl (80-100); Mean Platelet Volume 10.3 fl (7.4-10.4); Monocytes Absolute Auto 0.6 K/mm3 (0.1-0.6); Monocytes Percent Auto 5.7 % (2.6-8.5); Neutrophils Percent Auto 61.3 % (45.5-73.1); Platelet Count Result 280 k/mm3 (150-375); Red Blood Count 4.09 M/mm3 (4.2-5.4); Red Cell Distribution Width 16.9 % (11.5-14.5); White Blood Count 9.7 K/mm3 (4.5-10.0)
[2024-03-05 10:47] LABS: Alanine Aminotransferase 12 U/L (6-35); Albumin Level 4.2 g/dL (3.5-5.1); Alkaline Phosphatase 87 U/L (38-126); Anion Gap 6 mmol/L (4-12); Aspartate Amino Transferase 23 U/L (14-36); Bilirubin,Total 0.8 mg/dL (0.2-1.3); Blood Urea Nitrogen 11 mg/dL (7-17); Calcium 9.2 mg/dL (8.4-10.2); Carbon Dioxide 29 mmol/L (22-30); Chloride 99 mmol/L (98-107); Estimated Glomerular Filt Rate > 60; Glucose 117 mg/dL (65-110); Potassium 3.8 mmol/L (3.4-5.0); Sodium 134 mmol/L (137-145)
--- NOTE | 2024-03-05 11:05 | ED.DIZZY ---
HPI - Dizziness General Chief Complaint: Dizziness Stated Complaint: dizziness Time Seen by Provider: 03/05/24 08:41 Source: patient Mode of arrival: ambulatory Limitations: no limitations History of Present Illness HPI Narrative: 79-year-old with a history of paroxysmal atrial fibrillation on Eliquis, CAD, hypertension, diabetes, neuropathy, BPV here with a complaint of having dizzy spells since yesterday. Patient states that she has taken meclizine with minimal relief. She thinks she is having sinus infection she also feels pressure in her right ear. She denies any fever or chills. She states that she has some nasal drainage. No history of nausea or vomiting. MD elicited complaint: dizziness and disequilibrium Pertinent past history: BPPV Onset (ago): unknown Timing: gradual onset Severity: moderate Description: room spinning Context: change in body position Exacerbating factors: change in body position Relieving factors: nothing Associated symptoms: denies other symptoms Related Data Home Medications Medication Instructions Recorded Confirmed aspirin 81 mg tablet,delayed 81 mg PO DAILY 07/29/19 12/02/23 release (Adult Low Dose Aspirin) cetirizine 10 mg capsule 10 mg PO DAILY 03/15/23 12/02/23 ezetimibe 10 mg tablet 10 mg PO DAILY 03/15/23 12/02/23 folic acid 1 mg tablet 3 mg PO DAILY 03/15/23 12/02/23 albuterol sulfate 90 mcg/actuation 2 puff inhalation QID PRN 06/22/23 12/02/23 aerosol inhaler Shortness Of Breath Or Wheezing furosemide 40 mg tablet 20 mg PO DAILY 06/22/23 12/02/23 methotrexate sodium 2.5 mg tablet 2.5 mg PO WEEKLY 06/22/23 12/02/23 docusate sodium 100 mg capsule 100 mg PO DAILY 02/04/24 (Dulcolax Stool Softener (docusate)) covkmelt-yvx-N. coag-B. tablet PO 02/04/24 subtilis-inulin 1 billion cell-1 gram chew tab (Culturelle Probiotic-Multivit) pantoprazole 40 mg tablet,delayed 40 mg PO QAM 02/04/24 release spironolactone 25 mg tablet 12.5 mg PO DAILY 02/04/24 Allergies Allergy/AdvReac Type Severity Reaction Status Date / Time No Known Allergies Allergy Verified 02/04/24 15:22 Review of Systems Review of Systems: All systems reviewed & are unremarkable except as noted in HPI and below Constitutional: Constitutional: Reports no additional constitutional complaints Eyes: Eyes: Reports no additional eye complaints ENT: Reports system reviewed and no additional complaints, except as documented, Reports vertigo and Reports dizziness Cardiovascular: Cardiovascular: Reports no additional cardiovascular complaints Respiratory: Respiratory: Reports no additional respiratory complaints Gastrointestinal: Gastrointestinal: Reports no additional gastrointestinal complaints Musculoskeletal: Musculoskeletal: Reports no additional musculoskeletal complaints Neurologic: Reports system reviewed and no additional complaints, except as documented [facility] Past Medical History Medical History (Updated 03/05/24 @ 11:12 by Raymond Piper MD) Anxiety Asthma Chronic anticoagulation Chronic hyponatremia Chronic pain syndrome Chronic, continuous use of opioids Coronary artery disease Angioplasty of a diagonal lesion in 01/2018. Cardiac catheterization 06/2019 showed patent coronary arteries. Deep venous thrombosis Degenerative joint disease involving multiple joints Depression Folic acid deficiency Gastroesophageal reflux disease Heart failure with preserved ejection fraction Hiatal hernia Hyperlipidemia Hypertension Hypothyroidism Irritable bowel syndrome More than 50 percent stenosis of right internal carotid artery Obstructive sleep apnea Noncompliant with CPAP. Paroxysmal atrial fibrillation Peptic ulcer Peripheral neuropathy Pneumonia Renal artery stenosis Rheumatoid arthritis Seasonal allergies Type 2 diabetes mellitus Vitamin B 12 deficiency Vitamin D deficiency Surgical History Surgical History Hi
== END 2024-03-05 11:24 | disposition home or self-care (01) ==
PROVIDERS: Emergency Provider Family Medicine; PCP Family Medicine
DX: H81.11 Benign paroxysmal vertigo, right ear (principal); I25.10 Atherosclerotic heart disease of native coronary artery without angina pectoris; I70.1 Atherosclerosis of renal artery; I48.0 Paroxysmal atrial fibrillation; I50.9 Heart failure, unspecified; I11.0 Hypertensive heart disease with heart failure; I65.21 Occlusion and stenosis of right carotid artery; E87.1 Hypo-osmolality and hyponatremia; E11.42 Type 2 diabetes mellitus with diabetic polyneuropathy; E53.8 Deficiency of other specified B group vitamins; E03.9 Hypothyroidism, unspecified; E55.9 Vitamin D deficiency, unspecified; K21.9 Gastro-esophageal reflux disease without esophagitis; K58.9 Irritable bowel syndrome, unspecified; G89.4 Chronic pain syndrome; G47.33 Obstructive sleep apnea (adult) (pediatric); M19.90 Unspecified osteoarthritis, unspecified site; M06.9 Rheumatoid arthritis, unspecified; Z98.61 Coronary angioplasty status; Z86.718 Personal history of other venous thrombosis and embolism; Z87.01 Personal history of pneumonia (recurrent); Z87.11 Personal history of peptic ulcer disease; Z90.49 Acquired absence of other specified parts of digestive tract; Z90.710 Acquired absence of both cervix and uterus; Z96.1 Presence of intraocular lens; Z98.49 Cataract extraction status, unspecified eye; Z79.01 Long term (current) use of anticoagulants; Z79.82 Long term (current) use of aspirin; Z79.899 Other long term (current) drug therapy; R00.1 Bradycardia, unspecified; I44.4 Left anterior fascicular block
CPT/HCPCS: 36415; 70450; 80053; 81003; 85025; 93005; 96360; 99284; J7030

== ENCOUNTER 2024-05-14 11:35 | Emergency (ER) | payer MEDICARE, BC, SELFPAY ==
--- NOTE | ~2024-05-14 | XR_ITS ---
Clinical Indication: Chest pain PA and lateral views of the chest: Comparison: 01/14/2024 Findings: The lungs are clear, without evidence of focal consolidation or pleural effusion. Cardiome diastinal silhouette is stable. Bones and soft tissues are unremarkable. Impression: Clear lungs. Reviewed, dictated and finalized at location . Impression: Clear lungs.
--- NOTE | 2024-05-14 11:37 | ECG_ITS ---
Test Date: 2024-05-14 14:49:50 Measurements Intervals [place] Rate: 43 P: 43 [place]: 184 QRS: -32 QRSD: 101 T: -60 QT: 488 QTc: 413 Interpretive Statements SINUS BRADYCARDIA LEFT AXIS DEVIATION [QRS AXIS < -30] INCOMPLETE RIGHT BUNDLE BRANCH BLOCK LEFT VENTRICULAR HYPERTROPHY AND ST-T CHANGE POSSIBLE SEPTAL MYOCARDIAL INFARCTION , PROBABLY OLD Compared to ECG 03/05/2024 08:49:19 ST (T wave) deviation now present Electronically Signed On 05-15-2024 14:29:13 CDT by Rosas Rubio M.D.
[2024-05-14 12:06] LABS: Basophils Percent Auto 0.4 % (0.2-1.2); Eosinophils Percent Auto 0.2 % (0-4.4); Hematocrit 29.8 % (37.0-47.0); Hemoglobin 9.2 g/dL (12.0-15.0); Immature Granulocyte Absolute 0.03 K/mm3 (0.00-0.031); Immature Granulocyte Percent A 0.3 % (0-0.5); Lymphocytes Absolute Auto 2.59 K/mm3 (0.9-3.2); Lymphocytes Percent Auto 29.1 % (18.3-44.2); Mean Corpuscular HGB Conc 30.9 g/dl (32-36); Mean Corpuscular Hemoglobin 24.5 pg (26-34); Mean Corpuscular Volume 79.5 fl (80-100); Mean Platelet Volume 10.3 fl (7.4-10.4); Monocytes Absolute Auto 0.5 K/mm3 (0.1-0.6); Monocytes Percent Auto 5.1 % (2.6-8.5); Neutrophils Absolute Auto 5.8 K/mm3 (1.3-6.7); Neutrophils Percent Auto 64.9 % (45.5-73.1); Platelet Count Result 252 k/mm3 (150-375); Red Blood Count 3.75 M/mm3 (4.2-5.4); Red Cell Distribution Width 17.2 % (11.5-14.5); White Blood Count 8.9 K/mm3 (4.5-10.0)
[2024-05-14 12:12] VITALS: PULSE 46
[2024-05-14 12:13] VITALS: BP 206/54; PULSE 49; RESP 12; O2SAT 98
[2024-05-14 12:15] VITALS: BP 178/60; PULSE 49; RESP 12; TEMP 37.1; O2SAT 98
[2024-05-14 12:18] LABS: INR 1.5; Prothrombin Time 18.8 Seconds (11.1-14.7)
[2024-05-14 12:20] LABS: Partial Thromboplastin Time 40.1 Seconds (22.3-36.8)
[2024-05-14 12:21] LABS: Alanine Aminotransferase 14 U/L (6-35); Albumin Level 4.2 g/dL (3.5-5.1); Alkaline Phosphatase 86 U/L (38-126); Anion Gap 12 mmol/L (4-12); Aspartate Amino Transferase 26 U/L (14-36); Bilirubin,Total 1.2 mg/dL (0.2-1.3); Blood Urea Nitrogen 15 mg/dL (7-17); Carbon Dioxide 28 mmol/L (22-30); Chloride 94 mmol/L (98-107); Estimated Glomerular Filt Rate 60; Glucose 156 mg/dL (65-110); Lipase 23 U/L (23-300); Potassium 3.9 mmol/L (3.4-5.0); Sodium 134 mmol/L (137-145)
[2024-05-14 12:33] LABS: Troponin I < 0.012 ng/mL (0.000-0.034)
--- NOTE | 2024-05-14 12:34 | ED.CHESTPAIN ---
HPI - Chest Pain General Chief Complaint: Chest Pain Stated Complaint: Toothache/High BP/Chest Pain Time Seen by Provider: 05/14/24 12:09 History of Present Illness HPI narrative: 79-year-old female presents to the emergency department for evaluation for multiple complaints. Patient does have tooth pain secondary to a fractured tooth. Patient states this is causing her to have increased blood pressure and patient feels that the chest pain is radiating from her tooth. Patient denies any prior cardiac history. Patient does have history of poor dentition. Patient is also on medications for her blood pressure. Related Data Home Medications Medication Instructions Recorded Confirmed aspirin 81 mg tablet,delayed 81 mg PO DAILY 07/29/19 05/05/24 release (Adult Low Dose Aspirin) cetirizine 10 mg capsule 10 mg PO DAILY 03/15/23 05/05/24 ezetimibe 10 mg tablet 10 mg PO DAILY 03/15/23 05/05/24 folic acid 1 mg tablet 3 mg PO DAILY 03/15/23 05/05/24 albuterol sulfate 90 mcg/actuation 2 puff inhalation QID PRN 06/22/23 05/05/24 aerosol inhaler Shortness Of Breath Or Wheezing furosemide 40 mg tablet 20 mg PO DAILY 06/22/23 05/05/24 methotrexate sodium 2.5 mg tablet 2.5 mg PO WEEKLY 06/22/23 05/05/24 docusate sodium 100 mg capsule 100 mg PO DAILY 02/04/24 05/05/24 (Dulcolax Stool Softener (docusate)) yhawtzvi-kti-N. coag-B. tablet PO 02/04/24 05/05/24 subtilis-inulin 1 billion cell-1 gram chew tab (Culturelle Probiotic-Multivit) spironolactone 25 mg tablet 12.5 mg PO DAILY 02/04/24 05/05/24 fluticasone 250 mcg-salmeterol 50 1 inh inhalation BID 05/12/24 mcg/dose blistr powdr for inhalation (Advair Diskus) pantoprazole 40 mg tablet,delayed 20 mg PO QAM 05/12/24 release Allergies Allergy/AdvReac Type Severity Reaction Status Date / Time No Known Allergies Allergy Verified 05/05/24 13:04 Review of Systems Review of Systems: All systems reviewed & are unremarkable except as noted in HPI and below PMFSH Past Medical History Medical History Anxiety Asthma Chronic anticoagulation Chronic hyponatremia Chronic pain syndrome Chronic, continuous use of opioids Coronary artery disease Angioplasty of a diagonal lesion in 01/2018. Cardiac catheterization 06/2019 showed patent coronary arteries. Deep venous thrombosis Degenerative joint disease involving multiple joints Depression Folic acid deficiency Gastroesophageal reflux disease Heart failure with preserved ejection fraction Hiatal hernia Hyperlipidemia Hypertension Hypothyroidism Irritable bowel syndrome More than 50 percent stenosis of right internal carotid artery Obstructive sleep apnea Noncompliant with CPAP. Paroxysmal atrial fibrillation Peptic ulcer Peripheral neuropathy Pneumonia Renal artery stenosis Rheumatoid arthritis Seasonal allergies Type 2 diabetes mellitus Vitamin B 12 deficiency Vitamin D deficiency Surgical History Surgical History (Reviewed 05/12/24 @ 13:14 by Juany cShwartz [facility]) History of appendectomy History of arthroscopy of both shoulders History of cardiac catheterization Angioplasty of a diagonal stenosis 01/2018. Cardiac catheterization 06/2019 showed patent coronary arteries. History of carpal tunnel release History of cataract extraction History of cholecystectomy History of exploratory laparotomy Exploratory laparotomy with segmental mid jejunal small bowel resection with [id number]-gg-[id number] stapled anti peristaltic jejunal anastomosis 10/19/23 History of foot surgery History of hysterectomy History of phacoemulsification of cataract with intraocular lens implantation Family History Family History (Reviewed 05/12/24 @ 13:14 by Juany Schwartz [facility]) Grandparent Diabetes mellitus Father Acute myocardial infarction Diabetes mellitus Hypertension Mother Hypertension Diabetes mellitus Sibling Diabetes mellitus Hypertension Other Family h
[2024-05-14] MEDS: hydrALAZINE HCL 20 MG/ML VIAL 10 MG IV PUSH ×2 (12:38→15:56)
[2024-05-14] MEDS: ASPIRIN 81 MG CHEWABLE TABLET 324 MG PO (12:38)
[2024-05-14] MEDS: MORPHINE SULFATE (*CRX) 2 MG/ML INJ IV PUSH (12:39)
[2024-05-14 13:03] VITALS: BP 164/52; PULSE 49; RESP 16; O2SAT 100
[2024-05-14 15:28] LABS: Troponin I < 0.012 ng/mL (0.000-0.034)
[2024-05-14 15:29] VITALS: BP 177/42; PULSE 45; RESP 13; O2SAT 100
[2024-05-14] MEDS: HYDROcodone/acetaminophen (*CRX) 5-325 MG TABLET 1 TAB PO (15:55)
[2024-05-14] MEDS: AMOXICILLIN/CLAVULANATE K 875-125 MG TAB 1 TABLET PO (15:57)
[2024-05-14 16:24] VITALS: BP 190/73; PULSE 48; RESP 17; O2SAT 100
== END 2024-05-14 16:26 | disposition home or self-care (01) ==
PROVIDERS: Emergency Provider Emergency Medicine; PCP Family Medicine
DX: K08.89 Other specified disorders of teeth and supporting structures (principal); I10 Essential (primary) hypertension; J45.909 Unspecified asthma, uncomplicated; I25.10 Atherosclerotic heart disease of native coronary artery without angina pectoris; I48.0 Paroxysmal atrial fibrillation; E87.1 Hypo-osmolality and hyponatremia; E53.8 Deficiency of other specified B group vitamins; E78.5 Hyperlipidemia, unspecified; E55.9 Vitamin D deficiency, unspecified; E03.9 Hypothyroidism, unspecified; G47.33 Obstructive sleep apnea (adult) (pediatric); G89.4 Chronic pain syndrome; K21.9 Gastro-esophageal reflux disease without esophagitis; K44.9 Diaphragmatic hernia without obstruction or gangrene; M06.9 Rheumatoid arthritis, unspecified; M19.90 Unspecified osteoarthritis, unspecified site; F41.9 Anxiety disorder, unspecified; Z86.718 Personal history of other venous thrombosis and embolism; Z86.711 Personal history of pulmonary embolism; Z87.01 Personal history of pneumonia (recurrent); Z90.49 Acquired absence of other specified parts of digestive tract; Z90.710 Acquired absence of both cervix and uterus; Z96.1 Presence of intraocular lens; Z98.49 Cataract extraction status, unspecified eye; Z79.899 Other long term (current) drug therapy; Z79.82 Long term (current) use of aspirin; Z79.01 Long term (current) use of anticoagulants; Z98.61 Coronary angioplasty status
CPT/HCPCS: 36415; 71046; 80053; 83690; 84484; 85025; 85610; 85730; 93005; 96374; 96375; 96376; 99284; A9270; J0360; J2270

== ENCOUNTER 2024-05-19 02:01 | Inpatient (IN) | payer MEDICARE, BC, SELFPAY ==
[2024-05-19] VITALS (26 sets, daily range): BP systolic 101–226; BP diastolic 39–76; PULSE 44–61; RESP 12–20; TEMP 36.4–36.8; O2SAT 97–100; BMI 27.7
--- NOTE | 2024-05-19 | ECHO_ITS ---
Patient Info Name: Aracely Spear Age: 79 years : 1945 Gender: Female Ht: 58 in Wt: 130 lbs BSA: 1.57 m2 HR: 56 bpm BP: 137 / 46 mmHg Heart Rhythm: Sinus Rhythm Technical Quality: Good Exam Date: 05/19/2024 9:30 AM Exam Location: Echo Lab Patient Status: Inpatient Admit Date: 05/19/2024 Staff Ordering Physician: Samara Mendoza APRN Chute Loader: Trini Adams RDCS Attending Provider: Louise Youngblood DO Exam Type: CA echo doppler color flow Study Info Indications - elevated troponin, evaluate for WMA Complete two-dimensional, color flow and Doppler transthoracic echocardiogram is performed. Summary 1. Left ventricular chamber dimension is normal. 2. Left ventricular systolic function is normal, estimated at 65-70%. 3. The left ventricular diastolic function is grade III diastolic dysfunction. 4. Right ventricular systolic function is normal. 5. Left atrial chamber dimension is moderately enlarged. 6. Right atrial chamber dimension is moderately enlarged. 7. There is mild aortic valve regurgitation. 8. There is mild mitral valve regurgitation. 9. There is moderate tricuspid valve regurgitation. 10. There is mild pulmonic regurgitation. 11. There is mild-moderate aortic atherosclerosis. Left Ventricle Left ventricular chamber dimension is normal. Left ventricular systolic function is normal, estimated at 65-70%. There is no increased left ventricular wall thickness. The left ventricular diastolic function is grade III diastolic dysfunction. Right Ventricle Right ventricular chamber dimension is normal. Right ventricular systolic function is normal. Left Atria Left atrial chamber dimension is moderately enlarged. Right Atria Right atrial chamber dimension is moderately enlarged. Atrial Septum Intact interatrial septum visualized by color flow imaging. Aortic Valve The aortic valve is trileaflet. There is no aortic valve stenosis. There is mild aortic valve regurgitation. There is mild aortic valve calcification. Pulmonic Valve The pulmonic valve is not well visualized. There is mild pulmonic regurgitation. Mitral Valve There is mild mitral valve regurgitation. The mitral valve annulus is mildly calcified. Tricuspid Valve There is moderate tricuspid valve regurgitation. Pericardium/Pleural There is no pericardial effusion. Inferior Vena Cava Normal inferior vena cava with >50% collapse upon inspiration consistent with normal right atrial pressure, 3 mmHg. Aorta The aortic root size at the sinus of Valsalva is normal. There is mild-moderate aortic atherosclerosis. Left Ventricular Outflow Tract Name Value Normal LVOT 2D LVOT Diameter 2.0 cm LVOT Doppler LVOT Peak Gradient 5 mmHg LVOT Mean Gradient 2 mmHg LVOT VTI 32 cm LVOT VTI/AV VTI Ratio 0.6 LVOT Stroke Volume 98 ml LVOT CO 4.5 l/min LVOT CI 2.8 l/min/m2 Pulmonic Valve Name Value
--- NOTE | ~2024-05-19 | CT_ITS ---
EXAMINATION: CT brain wo con DATE: 05/20/2024 11:58 INDICATION: Strokelike symptoms TECHNIQUE: Computed tomography (CT) of the head was performed without intravenous contrast. Sagittal and coronal reconstructions were performed. The mA was adjusted according to patient size. Iterative reconstruction technique was employed. The dose-length product was 681.00 mGy-cm. COMPARISON: head CT dated 03/05/2024 FINDINGS: No acute intracranial hemorrhage, acute infarction or abnormal extra axial fluid collection. There is mild scattered white matter hypoattenuation consistent with chronic small vessel ischemic disease. Ventricles are normal and symmetric. No mass/mass effect. Changes of bilateral intraocular lens repla cement. The orbitsand paranasal sinuses are normal. Unchanged small left mastoid effusion. IMPRESSION: 1. Normal aging brain. No acute intracranial process. Reviewed, dictated and finalized at location A.
--- NOTE | ~2024-05-19 | XR_ITS ---
Portable chest x-ray Comparison: 05/14/2024 Clinical History: Chest pain Findings: Lungs are clear, without focal consolidation or pleural effusion. Cardiomediastinal silho uette is stable. Bones and soft tissues are unremarkable. Impression: Clear lungs. Reviewed, dictated and finalized at location . Impression: Clear lungs.
--- NOTE | ~2024-05-19 | CT_ITS ---
EXAMINATION: CTA brain carotid DATE: 05/20/2024 15:46 INDICATION: Cerebrovascular accident. TECHNIQUE: Computed tomographic angiography (CTA) of the head was performed with 100 mL Omnipaque-350 intravenous contrast. CTA of the neck was performed with intravenous contrast. Automated exposure co ntrol and iterative reconstruction technique were employed. The dose-length product was 935.15 mGy-cm . Maximum intensity projection and volume rendered 3D-reconstructions were created by the [employer] t on a separate workstation. COMPARISON: Head CT 05/20/2024 FINDINGS: HEAD CTA: There is no intracranial hemorrhage, acute infarction, or abnormal intracranial mass lesion . The ventricles are normal in size. There is mild mucosal thickening in the paranasal sinuses. There are likely changes of ocular lens replacement surgeries. The mastoid air cells are normal. The verte bral arteries are codominant. There is no significant stenosis of basilar artery or the posterior cer ebral arteries. There is no significant stenosis of the intracranial internal carotid arteries or ant erior or middle cerebral arteries. Anterior communicating artery is normal. There is no aneurysm. NECK CTA: There are nodules in the thyroid measuring up to 8 mm, likely not clinically significant. T here are no pathologically enlarged lymph nodes. There is no significant stenosis of the vertebral ar teries. There is plaque in the proximal internal carotid arteries. There is 73% stenosis of the proxi mal right internal carotid artery relative to normal distal artery lumen diameter (NASCET criteria). There is 75% stenosis of the proximal left internal carotid artery relative to normal distal artery l umen diameter. There is severe cervical spondylosis. IMPRESSION: 1. Normal brain. 2. No aneurysm or significant intracranial arterial stenosis. 3. 73% stenosis of the proximal right internal carotid artery relative to normal distal artery lumen diameter (NASCET criteria). 4. 75% stenosis of the proximal left internal carotid artery relative to normal distal artery lumen d iameter. Reviewed, dictated and finalized at location A. IMPRESSION: 1. Normal brain. 2. No aneurysm or significant intracranial arterial stenosis. 3. 73% stenosis of the proximal right internal carotid artery relative to anabel l distal artery lumen diameter (NASCET criteria). 4. 75% stenosis of the proximal left internal carotid artery relative to normal distal artery lumen diameter.
--- NOTE | ~2024-05-19 | US_ITS ---
EXAMINATION: US renal BI DATE: 05/27/2024 15:11 INDICATION: Acute renal insufficiency TECHNIQUE: Multiple ultrasound grayscale images of the kidneys were obtained. COMPARISON: CT dated 12/10/2023 FINDINGS: The right kidney measures 9.0 x 4.1 x 5.3 cm. The left kidney measures 8.4 x 5.0 x 4.8 cm. The kidney s demonstrate normal echogenicity. There is no hydronephrosis in either kidney. No stones identified . The bladder is normal. IMPRESSION: 1. Normal kidneys without hydronephrosis. Reviewed, dictated and finalized at location B.
--- NOTE | ~2024-05-19 | MR_ITS ---
EXAMINATION: MR brain/brain stem wo con DATE: 05/20/2024 15:29 INDICATION: Stroke. TECHNIQUE: Magnetic resonance imaging (MRI) of the brain and brainstem was performed without intraven ous contrast. COMPARISON: Head CT 05/20/2024 FINDINGS: There is no intracranial hemorrhage, acute infarction, or abnormal intracranial mass lesion . The ventricles are normal in size. There are likely changes of ocular lens replacement surgeries. T he paranasal sinuses are clear. There is a small left mastoid effusion. IMPRESSION: 1. Normal brain. Reviewed, dictated and finalized at location A. IMPRESSION: 1. Normal brain.
--- NOTE | 2024-05-19 02:06 | ECG_ITS ---
Test Date: 2024-05-19 02:05:35 Measurements Intervals [place] Rate: 58 P: 58 [place]: 217 QRS: -29 QRSD: 93 T: 57 QT: 445 QTc: 440 Interpretive Statements SINUS BRADYCARDIA WITH FIRST DEGREE AV BLOCK DELAYED PRECORDIAL R/S TRANSITION LEFT VENTRICULAR HYPERTROPHY WITH ST-T CHANGE BASELINE ARTIFACT- I, II, III, AVR, AVL, AVF, V1-V6 BORDERLINE ECG Compared to ECG 05/14/2024 14:49:50 HEART RATE HAS INCREASED First degree AV block now present Electronically Signed On 05-19-2024 06:27:54 CDT by Jasvir Steele D.O.
[2024-05-19 02:29] LABS: Basophils Absolute Auto 0.1 K/mm3 (0.0-0.1); Basophils Percent Auto 0.8 % (0.2-1.2); Eosinophils Absolute Auto 0.1 K/mm3 (0-0.3); Eosinophils Percent Auto 1.3 % (0-4.4); Hemoglobin 9.4 g/dL (12.0-15.0); Immature Granulocyte Absolute 0.03 K/mm3 (0.00-0.031); Immature Granulocyte Percent A 0.3 % (0-0.5); Lymphocytes Percent Auto 36.8 % (18.3-44.2); Mean Corpuscular HGB Conc 30.3 g/dl (32-36); Mean Corpuscular Hemoglobin 24.2 pg (26-34); Mean Corpuscular Volume 79.7 fl (80-100); Mean Platelet Volume 10.4 fl (7.4-10.4); Monocytes Absolute Auto 0.5 K/mm3 (0.1-0.6); Monocytes Percent Auto 5.4 % (2.6-8.5); Neutrophils Absolute Auto 5.1 K/mm3 (1.3-6.7); Neutrophils Percent Auto 55.4 % (45.5-73.1); Platelet Count Result 258 k/mm3 (150-375); Red Blood Count 3.89 M/mm3 (4.2-5.4); Red Cell Distribution Width 17.1 % (11.5-14.5); White Blood Count 9.2 K/mm3 (4.5-10.0)
[2024-05-19 02:41] LABS: Alanine Aminotransferase 19 U/L (6-35); Albumin Level 4.4 g/dL (3.5-5.1); Alkaline Phosphatase 93 U/L (38-126); Anion Gap 14 mmol/L (4-12); Aspartate Amino Transferase 35 U/L (14-36); Bilirubin,Total 1.1 mg/dL (0.2-1.3); Blood Urea Nitrogen 13 mg/dL (7-17); Carbon Dioxide 23 mmol/L (22-30); Chloride 94 mmol/L (98-107); Estimated Glomerular Filt Rate 48; Glucose 133 mg/dL (65-110); Lipase 33 U/L (23-300); Potassium 3.9 mmol/L (3.4-5.0); Sodium 131 mmol/L (137-145)
[2024-05-19 02:53] LABS: Troponin I < 0.012 ng/mL (0.000-0.034)
[2024-05-19 02:59] LABS: INR 1.5; Prothrombin Time 18.1 Seconds (11.1-14.7)
[2024-05-19 03:01] LABS: Partial Thromboplastin Time 37.9 Seconds (22.3-36.8)
[2024-05-19] MEDS: hydrALAZINE HCL 20 MG/ML VIAL 10 MG IV PUSH ×2 (03:33→14:09)
--- NOTE | 2024-05-19 05:44 | ECG_ITS ---
Test Date: 2024-05-19 05:45:53 Measurements Intervals [place] Rate: 48 P: 125 [place]: 206 QRS: -27 QRSD: 96 T: 46 QT: 416 QTc: 375 Interpretive Statements SINUS BRADYCARDIA BORDERLINE AV CONDUCTION DELAY DELAYED PRECORDIAL R/S TRANSITION LEFT VENTRICULAR HYPERTROPHY WITH ST-T CHANGE NONSPECIFIC T-WAVE ABNORMALITY- ANT/INF LEADS BASELINE ARTIFACT- I, II, III, AVR, AVL, AVF ABNORMAL ECG Compared to ECG 05/19/2024 02:05:35 HEART RATE HAS DECREASED Electronically Signed On 05-19-2024 06:29:56 CDT by Jasvir Steele D.O.
[2024-05-19 06:11] LABS: Troponin I 0.196 ng/mL (0.000-0.034)
--- NOTE | 2024-05-19 06:19 | ED.GENADULT ---
HPI - General Adult General Chief complaint: Chest Pain Stated complaint: chest pain Time Seen by Provider: 05/19/24 02:13 History of Present Illness HPI narrative: This is an 79-year-old female presenting ED with chief complaint of chest pain. That she started feel chest pain and tightness in the center of her chest while at dinner. She then checked her blood pressure and she noticed it was significantly elevated. He did not have nausea vomiting diaphoresis or exertional component. She then called the ambulance and was brought to the ED. Patient says that she is intermittently having the chest pain and tightness. Related Data Home Medications Medication Instructions Recorded Confirmed aspirin 81 mg tablet,delayed 81 mg PO DAILY 07/29/19 05/05/24 release (Adult Low Dose Aspirin) cetirizine 10 mg capsule 10 mg PO DAILY 03/15/23 05/05/24 ezetimibe 10 mg tablet 10 mg PO DAILY 03/15/23 05/05/24 folic acid 1 mg tablet 3 mg PO DAILY 03/15/23 05/05/24 albuterol sulfate 90 mcg/actuation 2 puff inhalation QID PRN 06/22/23 05/05/24 aerosol inhaler Shortness Of Breath Or Wheezing furosemide 40 mg tablet 20 mg PO DAILY 06/22/23 05/05/24 methotrexate sodium 2.5 mg tablet 2.5 mg PO WEEKLY 06/22/23 05/05/24 docusate sodium 100 mg capsule 100 mg PO DAILY 02/04/24 05/05/24 (Dulcolax Stool Softener (docusate)) iupkbpts-xoa-W. coag-B. tablet PO 02/04/24 05/05/24 subtilis-inulin 1 billion cell-1 gram chew tab (Culturelle Probiotic-Multivit) spironolactone 25 mg tablet 12.5 mg PO DAILY 02/04/24 05/05/24 fluticasone 250 mcg-salmeterol 50 1 inh inhalation BID 05/12/24 mcg/dose blistr powdr for inhalation (Advair Diskus) pantoprazole 40 mg tablet,delayed 20 mg PO QAM 05/12/24 release Allergies Allergy/AdvReac Type Severity Reaction Status Date / Time No Known Allergies Allergy Verified 05/19/24 02:05 [facility] Past Medical History Medical History Anxiety Asthma Chronic anticoagulation Chronic hyponatremia Chronic pain syndrome Chronic, continuous use of opioids Coronary artery disease Angioplasty of a diagonal lesion in 01/2018. Cardiac catheterization 06/2019 showed patent coronary arteries. Deep venous thrombosis Degenerative joint disease involving multiple joints Depression Folic acid deficiency Gastroesophageal reflux disease Heart failure with preserved ejection fraction Hiatal hernia Hyperlipidemia Hypertension Hypothyroidism Irritable bowel syndrome More than 50 percent stenosis of right internal carotid artery Obstructive sleep apnea Noncompliant with CPAP. Paroxysmal atrial fibrillation Peptic ulcer Peripheral neuropathy Pneumonia Renal artery stenosis Rheumatoid arthritis Seasonal allergies Type 2 diabetes mellitus Vitamin B 12 deficiency Vitamin D deficiency Surgical History Surgical History History of appendectomy History of arthroscopy of both shoulders History of cardiac catheterization Angioplasty of a diagonal stenosis 01/2018. Cardiac catheterization 06/2019 showed patent coronary arteries. History of carpal tunnel release History of cataract extraction History of cholecystectomy History of exploratory laparotomy Exploratory laparotomy with segmental mid jejunal small bowel resection with [id number] stapled anti peristaltic jejunal anastomosis 10/19/23 History of foot surgery History of hysterectomy History of phacoemulsification of cataract with intraocular lens implantation Family History Family History Grandparent Diabetes mellitus Father Acute myocardial infarction Diabetes mellitus Hypertension Mother Hypertension Diabetes mellitus Sibling Diabetes mellitus Hypertension Other Family history of cardiovascular disease Family history of malignant neoplasm of brain Social History Social His
[2024-05-19] MEDS: HEPARIN SOD/D5W 100 UNITS/ML 25,000 UNITS/250 ML BAG 6 UNITS IV CONT (06:48)
[2024-05-19] MEDS: HEPARIN SODIUM 5,000 UNITS/ML VIAL 4000 UNITS IV PUSH (06:48)
[2024-05-19] MEDS: NITROGLYCERIN SL 0.4 MG TABLET SUBLINGUAL (07:01)
[2024-05-19] MEDS: MORPHINE SULFATE (*CRX) 4 MG/ML INJ IV PUSH ×2 (07:02→09:14)
--- NOTE | 2024-05-19 07:19 | PC.NURSE ---
Pt given 0.4 mg nitroglycerin sublingual at 0655 2nd 0.4 mg nitroglycerin sublingual at 0700 3rd dose was not given due to pt blood pressure of 105/45
--- NOTE | 2024-05-19 08:19 | PM.IMHP ---
H&P: HPI History of Present Illness Date/Time: 05/19/24 08:19 Chief Complaint: Chest pain, dental pain Narrative: The patient is an 79 year old female hx CAD s/p angioplasty 2018, afib on eliquis, HLD, RA, admitted for evaluation of chest pain. She reports pain started last and has been coming and going, some associated shortness of breath, feels like pressure/heavy. Also having left lower dental pain. In the ED, she was afebrile, HR 48-56, BP 122-179/46-57, O2 100% on 2L. Labs showed a normal CBC, sodium 131, Creatinine 1.1, Troponin elevated 0.196, CRP and BNP pending. Chest x-ray Clear lungs. EKG Sinus bradycardia. She was started on a heparin drip, morphine and aspirin. Also received nitro and felt some relief with that. Review of Systems Review of Systems: No diaphoresis, nausea or other symptoms, wants to be left alone PMFSH Past Medical History Medical History Anxiety Asthma Chronic anticoagulation Chronic hyponatremia Chronic pain syndrome Chronic, continuous use of opioids Coronary artery disease Angioplasty of a diagonal lesion in 01/2018. Cardiac catheterization 06/2019 showed patent coronary arteries. Deep venous thrombosis Degenerative joint disease involving multiple joints Depression Folic acid deficiency Gastroesophageal reflux disease Heart failure with preserved ejection fraction Hiatal hernia Hyperlipidemia Hypertension Hypothyroidism Irritable bowel syndrome More than 50 percent stenosis of right internal carotid artery Obstructive sleep apnea Noncompliant with CPAP. Paroxysmal atrial fibrillation Peptic ulcer Peripheral neuropathy Pneumonia Renal artery stenosis Rheumatoid arthritis Seasonal allergies Type 2 diabetes mellitus Vitamin B 12 deficiency Vitamin D deficiency Surgical History Surgical History History of appendectomy History of arthroscopy of both shoulders History of cardiac catheterization Angioplasty of a diagonal stenosis 01/2018. Cardiac catheterization 06/2019 showed patent coronary arteries. History of carpal tunnel release History of cataract extraction History of cholecystectomy History of exploratory laparotomy Exploratory laparotomy with segmental mid jejunal small bowel resection with [id number] stapled anti peristaltic jejunal anastomosis 10/19/23 History of foot surgery History of hysterectomy History of phacoemulsification of cataract with intraocular lens implantation Family History Family History Grandparent Diabetes mellitus Father Acute myocardial infarction Diabetes mellitus Hypertension Mother Hypertension Diabetes mellitus Sibling Diabetes mellitus Hypertension Other Family history of cardiovascular disease Family history of malignant neoplasm of brain Social History Social History Social History: The patient lives in [place]. Her 2021. 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 Lifelong nonsmoker. No alcohol or illicit substance abuse. Per patient, IL[employer]ON[employer] is [employer], friend. Code status: Full code Caffeine-soda Smoking status: Never smoker Alcohol intake: never Substance use: never Substance use type: does not use Other substance usage details: Medical marijuana occassionally - 1 every 6 months Do You Feel Safe in your Home?: Yes Lack of Transportation: YES Lack of Food: Never True Current Housing: I Have Housing Concerned About Future Housing: No Difficulty Paying Gas/Electric Bills: No Difficulty Paying for Meds: No Currently Unemployed: No Education: Associate Degree Difficulty w/ Childcare or Family Care: No Spiritual care concerns: No Agree to blood products: Yes Meds Home Medications and Allergies Home Medicati
--- NOTE | 2024-05-19 08:37 | ECG_ITS ---
Test Date: 2024-05-19 08:54:52 Measurements Intervals [place] Rate: 62 P: 37 [place]: 180 QRS: -26 QRSD: 97 T: 49 QT: 391 QTc: 397 Interpretive Statements SINUS RHYTHM DELAYED PRECORDIAL R/S TRANSITION VOLTAGE CRITERIA FOR LVH NONSPECIFIC T-WAVE ABNORMALITY- ANTEROLAT/INF LEADS BASELINE ARTIFACT- I, II, III, AVR, AVL, AVF BORDERLINE ECG Compared to ECG 05/19/2024 05:45:53 HEART RATE HAS INCREASED Electronically Signed On 05-19-2024 09:15:33 CDT by Jasvir Steele D.O.
[2024-05-19 09:58] LABS: CRP < 0.5 mg/dL (<1.0)
--- NOTE | 2024-05-19 10:02 | ADMIMU ---
This patient, Aracely Spear, was admitted to IMU status, and placed in IMU Room 200-01. Patient/family oriented to hospital policies and general routines including ID bracelet, bed and alarms, visiting hours, pain management, procedures, bathroom and other care routines, personal items, smoking policy, room service/diet, and visiting hours. Valuables list has been completed. Information on how to activate the Rapid Response Team has been discussed. Patient/Family are encouraged to report perceived risks to care and to ask questions if they do not understand what they are told or what they should do.
--- NOTE | 2024-05-19 10:08 | PM.CNCAR ---
Assessment and Plan Assessment and plan (1) Elevated troponin: Code(s): R79.89 - Other specified abnormal findings of blood chemistry Status: Acute Assessment and Plan: Elevated troponin likely due to hypertensive urgency. Continue to trend troponin until peak. Echocardiogram pending. (2) Hypertensive urgency: Code(s): I16.0 - Hypertensive urgency Status: Resolved Assessment and Plan: Blood pressures have improved. Resume home antihypertensive regimen, will adjust accordingly. (3) Coronary artery disease: Qualifiers: Coronary Disease-Associated Artery/Lesion type: [place] artery [place] vs. transplanted heart: [place] heart Associated angina: without angina Qualified Code(s): I25.10 - Atherosclerotic heart disease of [place] coronary artery without angina pectoris Code(s): I25.10 - Atherosclerotic heart disease of [place] coronary artery without angina pectoris Status: Acute Assessment and Plan: S/p balloon angioplasty of small-medium sized diagonal branch s/p repeat cardiac catheterization in 2018 that showed patent diagonal branch. Lexiscan stress test in 2021 negative. She does have reproducible chest wall tenderness, however, does report a different type of chest pain. She has a history of getting chest pain whenever her blood pressure gets elevated. Will treat her hypertensive urgency and see how her chest pain does. May consider repeating Lexiscan stress test tomorrow on 05/20. Continue ASA, statin. (4) Type 2 diabetes mellitus: Code(s): E11.9 - Type 2 diabetes mellitus without complications Status: Acute Assessment and Plan: Management as per primary team. (5) Chronic anticoagulation: Code(s): Z79.01 - meterman (current) use of anticoagulants Status: Chronic Assessment and Plan: Continue Heparin drip for now and hold Eliquis. Plan to resume Eliquis prior to discharge. (6) Paroxysmal A-fib: Code(s): I48.0 - Paroxysmal atrial fibrillation Status: Acute Assessment and Plan: In sinus. Continue Amiodarone. Holding Eliquis for now (7) Hyperlipidemia: Qualifiers: Hyperlipidemia type: unspecified Qualified Code(s): E78.5 - Hyperlipidemia, unspecified Code(s): E78.5 - Hyperlipidemia, unspecified Status: Chronic Assessment and Plan: Continue Atorvastatin. History of Present Illness History of Present Illness Consult date/time: 05/19/24 10:08 Requesting physician: Reji,Samara, [employer] SAL[employer] REPRESENTATIVE Consult reason: chest pain Reason For Visit: elevated trops Narrative: We are consulted for chest pain, elevated troponins. This is an 79 year old female patient of Dr. Manzanares with coronary artery disease s/p balloon angioplasty of small-medium sized diagonal branch s/p repeat cardiac catheterization in 2019 that showed patent diagonal branch, atrial fibrillation on Eliquis, rheumatoid arthritis, diabetes, hypertension, hyperlipidemia, ELVIRA. Shaorna presented to [facility] after having a heavy, substernal episode of chest pain while sitting after dinner. She checked her blood pressure and noted it to be in the 200s systolics. Therefore, came to the ER. She reports that she has been having intermittent chest pain since , gets better with naps. Sometimes comes on with exertion. Feels like a different type of pain compared to her musculoskeletal chest wall pain. In the ED, her blood pressure was as high a s 226/76mmHg. She was given IV Hydralazine with improvement in her blood pressure. EKG with sinus rhythm with nonspecific T wave abnormality. Initial troponin negative, however, repeat elevated at 0.196. Last Lexiscan stress test in 06/2022 was negative. She took last dose of Eliquis on evening of 05/18. Review of Systems Review of Systems: All systems reviewed & are unremarkable except as noted in HPI and below (HPI) [facility] Past Medical History Medical History (Reviewed 05/19/24 @
[2024-05-19 10:50] LABS: Basophils Absolute Auto 0.1 K/mm3 (0.0-0.1); Basophils Percent Auto 0.4 % (0.2-1.2); Eosinophils Percent Auto 0.1 % (0-4.4); Hematocrit 26.7 % (37.0-47.0); Hemoglobin 8.4 g/dL (12.0-15.0); Immature Granulocyte Absolute 0.03 K/mm3 (0.00-0.031); Immature Granulocyte Percent A 0.3 % (0-0.5); Lymphocytes Absolute Auto 2.57 K/mm3 (0.9-3.2); Lymphocytes Percent Auto 22.8 % (18.3-44.2); Mean Corpuscular HGB Conc 31.5 g/dl (32-36); Mean Corpuscular Hemoglobin 24.9 pg (26-34); Monocytes Absolute Auto 0.6 K/mm3 (0.1-0.6); Monocytes Percent Auto 5.1 % (2.6-8.5); Neutrophils Absolute Auto 8.1 K/mm3 (1.3-6.7); Neutrophils Percent Auto 71.3 % (45.5-73.1); Platelet Count Result 240 k/mm3 (150-375); Red Blood Count 3.38 M/mm3 (4.2-5.4); Red Cell Distribution Width 17.1 % (11.5-14.5); White Blood Count 11.3 K/mm3 (4.5-10.0)
[2024-05-19 11:01] LABS: INR 1.4
[2024-05-19 11:02] LABS: Partial Thromboplastin Time 55.6 Seconds (22.3-36.8)
[2024-05-19 11:05] LABS: Anion Gap 10 mmol/L (4-12); Blood Urea Nitrogen 14 mg/dL (7-17); Calcium 8.8 mg/dL (8.4-10.2); Carbon Dioxide 27 mmol/L (22-30); Chloride 98 mmol/L (98-107); Estimated Glomerular Filt Rate 60; Glucose 119 mg/dL (65-110); Magnesium 1.6 mg/dL (1.6-2.3); Phosphorus 3.3 mg/dL (2.5-4.5); Potassium 4.1 mmol/L (3.4-5.0); Sodium 135 mmol/L (137-145)
[2024-05-19] MEDS: LEVOTHYROXINE SODIUM 88 MCG TABLET PO (11:18)
[2024-05-19] MEDS: AMIODARONE HCL 200 MG TABLET PO (11:18)
[2024-05-19] MEDS: LORATADINE 10 MG TABLET PO (11:19)
[2024-05-19] MEDS: EZETIMIBE 10 MG TABLET PO (11:19)
[2024-05-19] MEDS: AMOXICILLIN/CLAVULANATE K 875-125 MG TAB 1 TABLET PO ×2 (11:19→20:27)
[2024-05-19] MEDS: FOLIC ACID 1 MG TABLET 3 MG PO (11:19)
[2024-05-19] MEDS: ASPIRIN 81 MG ENTERIC TABLET PO (11:19)
[2024-05-19] MEDS: MONTELUKAST SODIUM 10 MG TABLET PO (11:19)
[2024-05-19] MEDS: FUROSEMIDE 20 MG TABLET PO (11:19)
[2024-05-19] MEDS: SODIUM CHLORIDE 1 GM TABLET PO ×2 (11:20→18:28)
[2024-05-19] MEDS: SPIRONOLACTONE 12.5 MG TABLET PO (11:20)
[2024-05-19 11:24] LABS: NT Pro B Type Natriuretic Pept 4450 pg/mL (19.9-100); Troponin I 0.284 ng/mL (0.000-0.034)
[2024-05-19] MEDS: NEBIVOLOL HCL 5 MG TABLET PO (11:30)
[2024-05-19 11:59] LABS: Erythrocyte Sedimentation Rate 21 mm/hr (0-20)
[2024-05-19] MEDS: oxyCODONE HCL (*CRX) 5 MG TAB IR 10 MG PO ×3 (13:08→23:00)
[2024-05-19] MEDS: HEPARIN SODIUM 5,000 UNITS/ML VIAL 2000 UNITS IV PUSH ×2 (13:11→20:27)
[2024-05-19] MEDS: VALSARTAN 160 MG TABLET 320 MG PO (14:09)
[2024-05-19] MEDS: SODIUM CHLORIDE 0.9% IV 1,000 ML 250 ML IV CONT (14:45)
--- NOTE | 2024-05-19 16:29 | PC.NURSE ---
Pt became drowsy. Responds to voice. Still oriented to person, place time. Pt is slow to respond, but speech is clear. No neuro defecits noted. Generally weak. BP 180/49. Provider notified. At bedside to evaluate pt. 02 saturation 100% on 2 liters. Heart rate is sinus bradycardia. Order received for 250 mL bolus.
[2024-05-19 18:33] LABS: Troponin I 0.254 ng/mL (0.000-0.034)
[2024-05-19 19:55] LABS: Partial Thromboplastin Time 60.4 Seconds (22.3-36.8)
[2024-05-19] MEDS: FLUTICASONE/SALMETEROL 115-21 MCG INHALER 1 PUFF 2 PUFF INHALATION (20:24)
[2024-05-19] MEDS: ATORVASTATIN 40 MG TABLET PO (20:27)
[2024-05-19] MEDS: hydrALAZINE HCL 25 MG TABLET PO (20:27)
[2024-05-20] VITALS (24 sets, daily range): BP systolic 98–213; BP diastolic 35–56; PULSE 46–65; RESP 16–20; TEMP 36.3–37.7; O2SAT 95–100
--- NOTE | 2024-05-20 | ECHO_ITS ---
Patient Info Name: Aracely Spear Age: 79 years : 1945 Gender: Female Ht: 58 in Wt: 134 lbs BSA: 1.60 m2 HR: 60 bpm BP: 213 / 48 mmHg Technical Quality: Fair Exam Date: 05/20/2024 4:55 PM Exam Location: Echo Lab Patient Status: Inpatient Admit Date: 05/19/2024 Staff Ordering Physician: Georgette Galeano MD Coater: Jessy Ferrell RDCS Attending Provider: Louise Youngblood DO Referring Physician: Waleska OSORIO; Exam Type: CA echo limited w bubble study Study Info Indications - poss. CVA Limited two-dimensional transthoracic echocardiogram is performed with agitated saline. Contrast/Agitated Saline Contrast/Ag. Saline: Agitated Saline Amount: 14.00 ml Existing IV Access: Yes IV Access Condition: patent with no signs of infiltration Summary 1. Saline contrast imaging performed in the apical four-chamber view with no evidence of intracardiac shunt. 2. Full echocardiogram done yesterday see separate dictation. Atrial Septum Intact interatrial septum visualized by agitated saline imaging. Report Signatures
[2024-05-20] MEDS: oxyCODONE HCL (*CRX) 5 MG TAB IR 10 MG PO ×4 (02:55→21:20)
[2024-05-20 03:06] LABS: Basophils Absolute Auto 0.1 K/mm3 (0.0-0.1); Basophils Percent Auto 0.6 % (0.2-1.2); Eosinophils Absolute Auto 0.1 K/mm3 (0-0.3); Eosinophils Percent Auto 0.9 % (0-4.4); Hematocrit 27.2 % (37.0-47.0); Hemoglobin 8.3 g/dL (12.0-15.0); Immature Granulocyte Absolute 0.04 K/mm3 (0.00-0.031); Immature Granulocyte Percent A 0.4 % (0-0.5); Lymphocytes Absolute Auto 3.22 K/mm3 (0.9-3.2); Lymphocytes Percent Auto 32.3 % (18.3-44.2); Mean Corpuscular HGB Conc 30.5 g/dl (32-36); Mean Corpuscular Hemoglobin 24.5 pg (26-34); Mean Corpuscular Volume 80.2 fl (80-100); Mean Platelet Volume 10.3 fl (7.4-10.4); Monocytes Absolute Auto 0.7 K/mm3 (0.1-0.6); Monocytes Percent Auto 6.6 % (2.6-8.5); Neutrophils Absolute Auto 5.9 K/mm3 (1.3-6.7); Neutrophils Percent Auto 59.2 % (45.5-73.1); Platelet Count Result 240 k/mm3 (150-375); Red Blood Count 3.39 M/mm3 (4.2-5.4); Red Cell Distribution Width 17.2 % (11.5-14.5)
[2024-05-20 03:17] LABS: Magnesium 1.6 mg/dL (1.6-2.3); Phosphorus 3.6 mg/dL (2.5-4.5)
[2024-05-20 03:18] LABS: Anion Gap 9 mmol/L (4-12); Blood Urea Nitrogen 15 mg/dL (7-17); Calcium 8.6 mg/dL (8.4-10.2); Carbon Dioxide 26 mmol/L (22-30); Chloride 97 mmol/L (98-107); Estimated Glomerular Filt Rate 48; Glucose 115 mg/dL (65-110); Potassium 3.3 mmol/L (3.4-5.0); Sodium 132 mmol/L (137-145)
[2024-05-20 03:19] LABS: Partial Thromboplastin Time 137.8 Seconds (22.3-36.8)
[2024-05-20] MEDS: LEVOTHYROXINE SODIUM 88 MCG TABLET PO (06:46)
[2024-05-20] MEDS: FLUTICASONE/SALMETEROL 115-21 MCG INHALER 1 PUFF 2 PUFF INHALATION ×2 (07:50→20:38)
--- NOTE | 2024-05-20 09:04 | PM.PNCARD ---
Progress Note: A&P Assessment and Plan (1) Elevated troponin: Code(s): R79.89 - Other specified abnormal findings of blood chemistry Status: Acute Assessment and Plan: Elevated troponin likely due to hypertensive urgency. 0.196, 0.284, 0.254. Will repeat a troponin now to ensure downtrend. Echocardiogram showed normal LV systolic function with grade III diastolic dysfunction. (2) Hypertensive urgency: Code(s): I16.0 - Hypertensive urgency Status: Resolved Assessment and Plan: Blood pressures have improved on home regimen. She states she had been told as an outpatient to stop her bystolic, but it has been resumed and her BP is at goal now. (3) Coronary artery disease: Qualifiers: Associated angina: without angina Coronary Disease-Associated Artery/Lesion type: [place] artery [place] vs. transplanted heart: [place] heart Qualified Code(s): I25.10 - Atherosclerotic heart disease of [place] coronary artery without angina pectoris Code(s): I25.10 - Atherosclerotic heart disease of [place] coronary artery without angina pectoris Status: Acute Assessment and Plan: S/p balloon angioplasty of small-medium sized diagonal branch s/p repeat cardiac catheterization in 2019 that showed patent diagonal branch. Lexiscan stress test in 2021 negative. She does have reproducible chest wall tenderness, however, does report a different type of chest pain. She has a history of getting chest pain whenever her blood pressure gets elevated. Not having any chest pain now with normalization of blood pressure. Will see how she does with ambulation. If she has chest pain with activity, can plan for lexiscan tomorrow, though patient prefers to avoid stress test if possible. If she does well with ambulation and does not have chest pain, will plan for outpatient CCTA at [place]. Continue ASA, statin. (4) Type 2 diabetes mellitus: Code(s): E11.9 - Type 2 diabetes mellitus without complications Status: Acute Assessment and Plan: Management as per primary team. (5) Chronic anticoagulation: Code(s): Z79.01 - halfway (current) use of anticoagulants Status: Chronic Assessment and Plan: Stop heparin gtt and resume eliquis (6) Paroxysmal A-fib: Code(s): I48.0 - Paroxysmal atrial fibrillation Status: Acute Assessment and Plan: In sinus. Continue Amiodarone. (7) Hyperlipidemia: Qualifiers: Hyperlipidemia type: unspecified Qualified Code(s): E78.5 - Hyperlipidemia, unspecified Code(s): E78.5 - Hyperlipidemia, unspecified Status: Chronic Assessment and Plan: Continue Atorvastatin. Subjective Date/time seen: 05/20/24 09:04 Interval history: Cardiology follow up for chest pain, HTN Date of service 05/20/2024: She is feeling well this morning and has no complaints. She denies any chest pain. Blood pressure has normalized. Review of Systems Review of Systems: All systems reviewed & are unremarkable except as noted in HPI and below (HPI) Exam Const: General: no acute distress HENMT: Mouth: Yes dry mucous membranes Eyes: General: appearance normal, both eyes and all related structures Sclera: sclerae normal Neck: Neck: supple Chest: Other: Easily reproducible chest wall tenderness Resp: Effort & Inspection: normal respiratory effort Cardio: Rate: regular rate Rhythm: regular rhythm Heart sounds: Murmur heart sound present systolic Skin: General skin exam: normal color Neuro: Speech: normal speech Psych: Mental Status: mental status grossly normal Affect: normal affect Objective Data Vital Signs Vital Signs: Vital Signs - 24 hr 05/19/24 10:17 05/19/24 11:15 05/19/24 11:18 Temperature 36.7 C Pulse Rate 52 L 52 L Respiratory Rate 18 Blood Pressure 158/53 H Pulse Oximetry 98 100 Oxygen Delivery Nasal Cannula Oxygen Flow Rate 1 Fraction of I
[2024-05-20] MEDS: FOLIC ACID 1 MG TABLET 3 MG PO (09:10)
[2024-05-20] MEDS: VALSARTAN 160 MG TABLET 320 MG PO (09:10)
[2024-05-20] MEDS: FUROSEMIDE 20 MG TABLET PO (09:11)
[2024-05-20] MEDS: MONTELUKAST SODIUM 10 MG TABLET PO (09:11)
[2024-05-20] MEDS: AMOXICILLIN/CLAVULANATE K 875-125 MG TAB 1 TABLET PO ×2 (09:11→21:20)
[2024-05-20] MEDS: EZETIMIBE 10 MG TABLET PO (09:11)
[2024-05-20] MEDS: AMIODARONE HCL 200 MG TABLET PO (09:11)
[2024-05-20] MEDS: NEBIVOLOL HCL 5 MG TABLET PO (09:11)
[2024-05-20] MEDS: LORATADINE 10 MG TABLET PO (09:12)
[2024-05-20] MEDS: ASPIRIN 81 MG ENTERIC TABLET PO (09:12)
[2024-05-20] MEDS: SODIUM CHLORIDE 1 GM TABLET PO ×2 (09:30→17:10)
[2024-05-20] MEDS: SPIRONOLACTONE 12.5 MG TABLET PO (09:30)
--- NOTE | 2024-05-20 11:08 | PC.NURSE ---
Pt reports not feeling well. She is drowsy and lethargic, barely opening eyes. Pt is having generalized weakness. Her speech is delayed. BP 154/44. HR 63, resp 16, O2 100% Reported to Teresa ARCINIEGA.
[2024-05-20 11:20] LABS: Glucose Point of Care 155 mg/dl (65-105)
--- NOTE | 2024-05-20 11:30 | PC.NURSE ---
Code stroke called on pt. CT of the brain and MRI ordered. Dr. Galeano at bedside
--- NOTE | 2024-05-20 13:02 | PM.IMPN ---
Progress Note: A&P Assessment and Plan (1) Elevated troponin: Code(s): R79.89 - Other specified abnormal findings of blood chemistry Status: Acute (2) Type 2 diabetes mellitus: Code(s): E11.9 - Type 2 diabetes mellitus without complications Status: Acute (3) Chest pain: Code(s): R07.9 - Chest pain, unspecified Status: Acute (4) Hyponatremia: Code(s): E87.1 - Hypo-osmolality and hyponatremia Status: Acute (5) AMS (altered mental status): Code(s): R41.82 - Altered mental status, unspecified Status: Acute Assessment and Plan: Rule out stroke CT head MRI head ordered CT head is negative await MRI Continue ASA full dose and eliquis and statin PT ordered ST ordered OR ordered ECHO ordered CTA ordered Plan Chest pain Hx CAD Followed by [facility] cardiology group outpatient Angioplasty of a diagonal lesion 01/2018 Cardiac Cath 06/2019 showed patent coronary arteries Recent appointment with Cardiology --NPO pending resolution/improving chest pain and trop. Elevated to 0.196, repeat pending. Reports some improvement with nitro --On a heparin drip, resume apixaban if no interventions needed --Continue amiodarone 200mg daily, ASA 81mg daily - can dc heparin drip - pt seen by cardiology [employer] Afib--currently sinus lyndon. pt back on home eliquis when able HLD--continue atorvastatin 40, ezetimibe 10 Hyponatremia--Sodium 131--continue sodium tabs BID, repeat Dental pain--Lower jaw, no obvious abscess or erythema but reporting significant pain and exam limited by pain --Change amoxicillin to augumentin x5 days, topical benzocaine --Pain control Acute on chronic pain--Schedule tylenol, Oxy 10 QID prn, Morphine 4mg x1 Chronic respiratory failure--on home 2L O2, 100% on 2L, Advair 250/50 BID, Albuterol PRN, continue Not in exacerbation DMII--not on meds HTN--continue zurdo enebivolol 5mg daily Hypothyroidism--continue synthroid RA--Home folic acid, methotrexate, continue, clarify schedule Subjective Date/time seen: 05/20/24 13:02 Interval history: 79 year old female hx CAD s/p angioplasty 2017, afib on eliquis, HLD, RA, admitted for evaluation of chest pain. She reports pain started last and has been coming and going, some associated shortness of breath, feels like pressure/heavy. Also having left lower dental pain. Pt seen by cardiology for labile BPs and chest pain Pt has history of S/p balloon angioplasty of small-medium sized diagonal branch s/p repeat cardiac catheterization in 2018 that showed patent diagonal branch. Lexiscan stress test in 2021 negative. Pt had rapid response @ 1115 am Nurse had noticed pt was - Pt reports not feeling well. She is drowsy and lethargic, barely opening eyes. Pt is having generalized weakness. Her speech is delayed. BP 154/44. HR 63, resp 16, O2 100% on further examination pt appears weaker on her L side cf her R 2/5 L arm and L leg and pt appears altered and non verbal CT head was ordered STAT to rule out stroke MRI head ordered to rule out stroke pt has been on heparin drip transitioned to eliquis and asa I will increase ASA to 325 mg po qdaily and add statin Review of Systems Review of Systems: Left sided new weakness non verbal and altered Some dental pain on admission Exam Narrative: General - Awake and alert. No acute distress Eyes - PERRLA, EOM intact ENT - No thrush, No erythema, Very TTP left lower jaw Neck - No noticeable or palpable swelling Lymph Nodes - No lymphadenopathy Cardiovascular - RRR no m/r/g, no JVD Lungs: Clear to auscultation, No wheezing, use of accessory muscles, no crackles or wheezes. Skin - Skin warm and dry, no wounds or rashes Abdomen - Normal bowel sounds, abdomen soft and nontender Extremities - No edema, cyanosis or clubbing Musculoskeletal - L sided ARm and leg weakness 2/5 non verbal and altered Neurological ? Alert and oriented
[2024-05-20] MEDS: HYDROmorphone HCL INJ (*CRX) 1 MG/ML SYR 0.5 MG IV PUSH (15:00)
--- NOTE | 2024-05-20 16:19 | PCSTNOTE ---
Bedside Swallow Evaluation not completed as patient was in CT Scan/MRI this afternoon. Will attempt in the morning.
[2024-05-20] MEDS: POTASSIUM CHLORIDE 20 MEQ PACKET (FOR LIQUID) PO (17:10)
[2024-05-20] MEDS: ATORVASTATIN 40 MG TABLET PO (21:20)
[2024-05-20] MEDS: APIXABAN 5 MG TABLET PO (21:20)
[2024-05-20] MEDS: hydrALAZINE HCL 25 MG TABLET PO (21:20)
[2024-05-21] VITALS (18 sets, daily range): BP systolic 123–176; BP diastolic 32–44; PULSE 47–97; RESP 16–20; TEMP 36.3–36.9; O2SAT 93–100
[2024-05-21] MEDS: oxyCODONE HCL (*CRX) 5 MG TAB IR 10 MG PO ×6 (01:08→21:29)
[2024-05-21] MEDS: LEVOTHYROXINE SODIUM 88 MCG TABLET PO (05:24)
[2024-05-21 05:30] LABS: Hematocrit 27.5 % (37.0-47.0); Hemoglobin 8.5 g/dL (12.0-15.0); Mean Corpuscular HGB Conc 30.9 g/dl (32-36); Mean Corpuscular Hemoglobin 24.6 pg (26-34); Mean Corpuscular Volume 79.7 fl (80-100); Mean Platelet Volume 10.8 fl (7.4-10.4); Platelet Count Result 233 k/mm3 (150-375); Red Blood Count 3.45 M/mm3 (4.2-5.4); Red Cell Distribution Width 17.1 % (11.5-14.5)
[2024-05-21 05:41] LABS: Anion Gap 9 mmol/L (4-12); Blood Urea Nitrogen 14 mg/dL (7-17); Calcium 8.7 mg/dL (8.4-10.2); Carbon Dioxide 26 mmol/L (22-30); Chloride 97 mmol/L (98-107); Estimated Glomerular Filt Rate 48; Glucose 90 mg/dL (65-110); Magnesium 1.7 mg/dL (1.6-2.3); Potassium 3.4 mmol/L (3.4-5.0); Sodium 132 mmol/L (137-145)
[2024-05-21] MEDS: FLUTICASONE/SALMETEROL 115-21 MCG INHALER 1 PUFF 2 PUFF INHALATION ×2 (08:14→20:35)
--- NOTE | 2024-05-21 08:37 | PM.IMPN ---
Progress Note: A&P Assessment and Plan (1) Elevated troponin: Code(s): R79.89 - Other specified abnormal findings of blood chemistry Status: Acute (2) Type 2 diabetes mellitus: Code(s): E11.9 - Type 2 diabetes mellitus without complications Status: Acute (3) Chest pain: Code(s): R07.9 - Chest pain, unspecified Status: Acute (4) Hyponatremia: Code(s): E87.1 - Hypo-osmolality and hyponatremia Status: Acute (5) AMS (altered mental status): Code(s): R41.82 - Altered mental status, unspecified Status: Acute Plan This is the ED 1-year-old female presents to the ED with chest pain. Patient started feeling chest pain and tightness in the center of the chest while at dinner. She then checked her blood pressure noticed was significantly elevated. No associated nausea vomiting diaphoresis. She called EMS and was brought to the ED. patient is having intermittent chest pain and tightness. In the ED she was hypertensive and bradycardic. Initial troponin was negative but up trended to 0.196. EKG without acute ST-T changes. Patient was started on heparin drip for non ST elevation SD. aspirin and nitro were started. Cardiology was consulted. Patient on Eliquis for atrial fibrillation. Laboratory evaluation showed mild hyponatremia and hypochloremia kidney function at baseline with creatinine of 1.1 mild to moderately anemic at 9.4. Lipase was normal. Chest x-ray with clear lungs. Serial troponin less than 0.012-0.19 6-0.28 4-0.254 -0.080. Echo with normal LV systolic function with grade 3 diastolic dysfunction Suspected related to hypertensive urgency. Plan for Lexiscan if still persist to have chest pain otherwise will plan for outpatient CCTA at [place]. Coronary artery disease status post angioplasty for diagonal lesion 01/2018. Cardiac catheterization 06/2019 with patent coronary arteries AFib on Eliquis and amiodarone Hyperlipidemia on atorvastatin 40 ezetimibe 10. LDL at goal at 50 Hyponatremia--Sodium 131--continue sodium tabs BID, repeat Dental pain--Lower jaw, no obvious abscess or erythema but reporting significant pain and exam limited by pain --Change amoxicillin to augumentin x5 days, topical benzocaine --Pain control Acute on chronic pain--Schedule tylenol, Oxy 10 QID prn, Morphine 4mg x1 Chronic respiratory failure--on home 2L O2, 100% on 2L, Advair 250/50 BID, Albuterol PRN, continue Not in exacerbation DMII--not on meds HTN--continue zurdo enebivolol 5mg daily Hypothyroidism--continue synthroid RA--Home folic acid, methotrexate, continue, clarify schedule Rapid response called 05/20/2024 patient was drowsy and lethargic speech delayed. Vitals were stable. Suggested weeks on left side CT head with no acute intracranial process. CTA head and neck was done which showed 73% stenosis of the proximal right ICA and 75% stenosis of the left ICA. Brain MRI with normal brain. Noted bilateral carotid artery stenosis this will need to be followed up as an outpatient basis with follow-up with vascular surgery. Will get ultrasound carotid. May need to be mildly hypertensive for cerebral perfusion due to bilateral carotid artery stenosis Chronic anemia at baseline level no signs of bleeding Echo with EF 65-70% grade 3 diastolic dysfunction mild aortic valve regurgitation mild mitral valve regurgitation. Moderate tricuspid valve regurgitation mild pulmonary regurgitation [id number] aortic atherosclerosis noted. Subjective Date/time seen: 05/21/24 08:37 Interval history: No overnight events. Discussed findings with patient. Working with PT OT. Cardiology note reviewed. No further chest pain reported. Review of Systems Review of Systems: All systems reviewed & are unremarkable except as noted in HPI and below Exam Narrative: General - Awake and alert. No acute distress Eyes - PERRLA, EOM intact ENT - No thrush, No erythema, Very TTP left lower jaw Neck - No
[2024-05-21] MEDS: VALSARTAN 160 MG TABLET 320 MG PO (09:24)
[2024-05-21] MEDS: POTASSIUM CHLORIDE 20 MEQ PACKET (FOR LIQUID) PO (09:24)
[2024-05-21] MEDS: SODIUM CHLORIDE 1 GM TABLET PO ×2 (09:24→17:34)
[2024-05-21] MEDS: APIXABAN 5 MG TABLET PO ×2 (09:24→20:26)
[2024-05-21] MEDS: TRIAMTERENE 37.5 MG/HCTZ 25 MG (MAXZIDE) TABLET 1 TAB PO (09:24)
[2024-05-21] MEDS: FUROSEMIDE 20 MG TABLET PO (09:24)
[2024-05-21] MEDS: hydrALAZINE HCL 25 MG TABLET PO ×3 (09:24→17:34)
[2024-05-21] MEDS: FOLIC ACID 1 MG TABLET 3 MG PO (09:24)
[2024-05-21] MEDS: NEBIVOLOL HCL 5 MG TABLET PO (09:24)
[2024-05-21] MEDS: SPIRONOLACTONE 12.5 MG TABLET PO (09:24)
[2024-05-21] MEDS: MONTELUKAST SODIUM 10 MG TABLET PO (09:24)
[2024-05-21] MEDS: LORATADINE 10 MG TABLET PO (09:24)
[2024-05-21] MEDS: AMOXICILLIN/CLAVULANATE K 875-125 MG TAB 1 TABLET PO ×2 (09:25→20:27)
[2024-05-21] MEDS: ASPIRIN 81 MG ENTERIC TABLET PO (09:25)
[2024-05-21] MEDS: AMIODARONE HCL 200 MG TABLET PO (09:25)
[2024-05-21] MEDS: EZETIMIBE 10 MG TABLET PO (09:25)
--- NOTE | 2024-05-21 12:08 | PCSTNOTE ---
Please refer to the Bedside Swallow Evaluation in the EMR. Please note, silent aspiration cannot be ruled out at bedside.
--- NOTE | 2024-05-21 19:14 | PC.NURSE ---
This patient, Aracely Spear, was received from IMU on 05/21/24 at 1914. Patient/family oriented to unit policies and routines. report received from Josiah ARCINIEGA
--- NOTE | 2024-05-21 19:26 | PC.NURSE ---
This patient, Aracely Spear, was transferred to [facility] on 05/21/24 at 1926. Personal belongings sent with patient. Report given to Ania. Appropriate documentation sent with patient.
[2024-05-21] MEDS: ATORVASTATIN 40 MG TABLET PO (20:27)
[2024-05-22] VITALS (15 sets, daily range): BP systolic 127–184; BP diastolic 37–82; PULSE 53–66; RESP 16–20; TEMP 36.2–37; O2SAT 97–100
[2024-05-22] MEDS: oxyCODONE HCL (*CRX) 5 MG TAB IR 10 MG PO ×5 (01:30→22:06)
[2024-05-22 04:53] LABS: Hematocrit 27.6 % (37.0-47.0); Hemoglobin 8.6 g/dL (12.0-15.0); Mean Corpuscular HGB Conc 31.2 g/dl (32-36); Mean Corpuscular Hemoglobin 24.6 pg (26-34); Mean Corpuscular Volume 78.9 fl (80-100); Mean Platelet Volume 9.6 fl (7.4-10.4); Platelet Count Result 222 k/mm3 (150-375); Red Cell Distribution Width 16.8 % (11.5-14.5); White Blood Count 9.3 K/mm3 (4.5-10.0)
[2024-05-22 05:23] LABS: Alanine Aminotransferase 13 U/L (6-35); Albumin Level 3.6 g/dL (3.5-5.1); Alkaline Phosphatase 64 U/L (38-126); Anion Gap 8 mmol/L (4-12); Aspartate Amino Transferase 22 U/L (14-36); Bilirubin,Total 1.1 mg/dL (0.2-1.3); Blood Urea Nitrogen 20 mg/dL (7-17); Carbon Dioxide 30 mmol/L (22-30); Chloride 90 mmol/L (98-107); Estimated Glomerular Filt Rate 31; Glucose 117 mg/dL (65-110); Magnesium 1.6 mg/dL (1.6-2.3); Potassium 3.7 mmol/L (3.4-5.0); Sodium 128 mmol/L (137-145)
[2024-05-22] MEDS: LEVOTHYROXINE SODIUM 88 MCG TABLET PO (05:38)
[2024-05-22] MEDS: FLUTICASONE/SALMETEROL 115-21 MCG INHALER 1 PUFF 2 PUFF INHALATION ×2 (07:38→20:42)
--- NOTE | 2024-05-22 08:33 | PM.IMPN ---
Progress Note: A&P Assessment and Plan (1) Elevated troponin: Code(s): R79.89 - Other specified abnormal findings of blood chemistry Status: Acute (2) Type 2 diabetes mellitus: Code(s): E11.9 - Type 2 diabetes mellitus without complications Status: Acute (3) Chest pain: Code(s): R07.9 - Chest pain, unspecified Status: Acute (4) Hyponatremia: Code(s): E87.1 - Hypo-osmolality and hyponatremia Status: Acute (5) AMS (altered mental status): Code(s): R41.82 - Altered mental status, unspecified Status: Acute Plan This is the ED 1-year-old female presents to the ED with chest pain. Patient started feeling chest pain and tightness in the center of the chest while at dinner. She then checked her blood pressure noticed was significantly elevated. No associated nausea vomiting diaphoresis. She called EMS and was brought to the ED. patient is having intermittent chest pain and tightness. In the ED she was hypertensive and bradycardic. Initial troponin was negative but up trended to 0.196. EKG without acute ST-T changes. Patient was started on heparin drip for non ST elevation [place]. aspirin and nitro were started. Cardiology was consulted. Patient on Eliquis for atrial fibrillation. Laboratory evaluation showed mild hyponatremia and hypochloremia kidney function at baseline with creatinine of 1.1 mild to moderately anemic at 9.4. Lipase was normal. Chest x-ray with clear lungs. Serial troponin less than 0.012-0.19 6-0.28 4-0.254 -0.080. Echo with normal LV systolic function with grade 3 diastolic dysfunction Suspected related to hypertensive urgency. Plan for Lexiscan if still persist to have chest pain otherwise will plan for outpatient CCTA at [place]. Coronary artery disease status post angioplasty for diagonal lesion 01/2018. Cardiac catheterization 06/2019 with patent coronary arteries. Plan for outpatient CCTA at [place] AFib on Eliquis and amiodarone Hyperlipidemia on atorvastatin 40 ezetimibe 10. LDL at goal at 50 Hyponatremia--Sodium 131--continue sodium tabs BID, repeat Dental pain--Lower jaw, no obvious abscess or erythema but reporting significant pain and exam limited by pain --Change amoxicillin to augumentin x5 days, topical benzocaine --Pain control ANASTAICA and CKD stage 3 creatinine bumped a today. Will hold triamterene hydrochlorothiazide and Lasix. Recheck in a.m. Acute on chronic pain--Schedule tylenol, Oxy 10 QID prn, Morphine 4mg x1 Chronic respiratory failure--on home 2L O2, 100% on 2L, Advair 250/50 BID, Albuterol PRN, continue Not in exacerbation DMII--not on meds HTN--continue zurdo enebivolol 5mg daily Hypothyroidism--continue synthroid RA--Home folic acid, methotrexate, continue, clarify schedule Rapid response called 05/20/2024 patient was drowsy and lethargic speech delayed. Vitals were stable. Suggested weeks on left side CT head with no acute intracranial process. CTA head and neck was done which showed 73% stenosis of the proximal right ICA and 75% stenosis of the left ICA. Brain MRI with normal brain. Noted bilateral carotid artery stenosis this will need to be followed up as an outpatient basis with follow-up with vascular surgery. Will get ultrasound carotid. May need to be mildly hypertensive for cerebral perfusion due to bilateral carotid artery stenosis Chronic anemia at baseline level no signs of bleeding Echo with EF 65-70% grade 3 diastolic dysfunction mild aortic valve regurgitation mild mitral valve regurgitation. Moderate tricuspid valve regurgitation mild pulmonary regurgitation [id number] aortic atherosclerosis noted. Subjective Date/time seen: 05/22/24 08:33 Interval history: No overnight events. No chest pain reported. Discussed findings of CTA. Review of Systems Review of Systems: All systems reviewed & are unremarkable except as noted in HPI and below Exam Narrative: General - Awake and alert. No acute distress
[2024-05-22] MEDS: EZETIMIBE 10 MG TABLET PO (08:38)
[2024-05-22] MEDS: SODIUM CHLORIDE 1 GM TABLET PO ×2 (08:38→17:03)
[2024-05-22] MEDS: APIXABAN 5 MG TABLET PO ×2 (08:38→20:41)
[2024-05-22] MEDS: AMOXICILLIN/CLAVULANATE K 875-125 MG TAB 1 TABLET PO ×2 (08:38→20:41)
[2024-05-22] MEDS: VALSARTAN 160 MG TABLET 320 MG PO (08:38)
[2024-05-22] MEDS: NEBIVOLOL HCL 5 MG TABLET PO (08:38)
[2024-05-22] MEDS: FOLIC ACID 1 MG TABLET 3 MG PO (08:39)
[2024-05-22] MEDS: LORATADINE 10 MG TABLET PO (08:39)
[2024-05-22] MEDS: SPIRONOLACTONE 12.5 MG TABLET PO (08:39)
[2024-05-22] MEDS: ASPIRIN 81 MG ENTERIC TABLET PO (08:39)
[2024-05-22] MEDS: MONTELUKAST SODIUM 10 MG TABLET PO (08:39)
[2024-05-22] MEDS: AMIODARONE HCL 200 MG TABLET PO (08:39)
[2024-05-22 09:45] LABS: Glucose Point of Care 135 mg/dl (65-105)
[2024-05-22] MEDS: hydrALAZINE HCL 25 MG TABLET PO (17:04)
[2024-05-22] MEDS: ATORVASTATIN 40 MG TABLET PO (20:41)
[2024-05-23] VITALS (16 sets, daily range): BP systolic 105–160; BP diastolic 31–52; PULSE 54–65; RESP 16–20; TEMP 36.2–36.8; O2SAT 82–100
[2024-05-23] MEDS: CALCIUM CARBONATE (TUMS) 500 MG (200 MG ELEMENTAL) 400 MG PO ×2 (03:45→14:52)
[2024-05-23] MEDS: busPIRone HCL 10 MG TABLET PO (03:45)
[2024-05-23] MEDS: oxyCODONE HCL (*CRX) 5 MG TAB IR 10 MG PO ×4 (03:45→20:27)
--- NOTE | 2024-05-23 03:47 | ECG_ITS ---
Test Date: 2024-05-23 04:05:27 Measurements Intervals [place] Rate: 64 P: 75 AK: 119 QRS: -35 QRSD: 100 T: 40 QT: 369 QTc: 383 Interpretive Statements SINUS RHYTHM LEFT AXIS DEVIATION LEFT VENTRICULAR HYPERTROPHY DELAYED PRECORDIAL R/S TRANSITION MINIMAL Q WAVES- HIGH LATERAL LEADS NONSPECIFIC T-WAVE ABNORMALITY- LATERAL LEADS BASELINE ARTIFACT- I, II, III, AVR, AVL, AVF, V1-V6 BORDERLINE ECG Compared to ECG 05/19/2024 08:54:52 NO SIGNIFICANT CHANGE Electronically Signed On 05-23-2024 08:49:29 CDT by Jasvir Steele D.O.
[2024-05-23] MEDS: MORPHINE SULFATE (*CRX) 2 MG/ML INJ 1 MG IV PUSH (04:26)
[2024-05-23] MEDS: hydrALAZINE HCL 20 MG/ML VIAL 10 MG IV PUSH (04:27)
--- NOTE | 2024-05-23 04:28 | PC.NURSE ---
Patient called the nurses station stating she had some indigestion. This nurse obtained an order for tums. Checked on the patient, stated she was having chest pain. This nurse obtained the patient's oxy 10, buspar, and tums. Patient stated that pain was in chest, but not radiating. Ordered a stat EKG. Called Dr. Mora to let her know the results. Ordered to give morphine and hydralazine. Patient was having blood pressures of 200s/40s. Recorded vital signs and stayed with patient.
[2024-05-23 04:56] LABS: Hematocrit 30.8 % (37.0-47.0); Hemoglobin 9.3 g/dL (12.0-15.0); Mean Corpuscular HGB Conc 30.2 g/dl (32-36); Mean Corpuscular Hemoglobin 23.7 pg (26-34); Mean Corpuscular Volume 78.6 fl (80-100); Mean Platelet Volume 9.8 fl (7.4-10.4); Platelet Count Result 280 k/mm3 (150-375); Red Blood Count 3.92 M/mm3 (4.2-5.4); Red Cell Distribution Width 16.6 % (11.5-14.5); White Blood Count 10.6 K/mm3 (4.5-10.0)
[2024-05-23 05:13] LABS: Anion Gap 12 mmol/L (4-12); Blood Urea Nitrogen 27 mg/dL (7-17); Carbon Dioxide 26 mmol/L (22-30); Chloride 87 mmol/L (98-107); Estimated Glomerular Filt Rate 36; Glucose 142 mg/dL (65-110); Magnesium 1.7 mg/dL (1.6-2.3); Potassium 3.8 mmol/L (3.4-5.0); Sodium 125 mmol/L (137-145)
[2024-05-23] MEDS: LEVOTHYROXINE SODIUM 88 MCG TABLET PO (05:42)
[2024-05-23] MEDS: FLUTICASONE/SALMETEROL 115-21 MCG INHALER 1 PUFF 2 PUFF INHALATION ×2 (07:40→20:59)
--- NOTE | 2024-05-23 09:15 | PCOTNOTE ---
attempted to see pt for OT treatment this AM. Pt is currently c/o nausea, chest pain, belching, stiffness, and high bp. Pt's states that she has not had her bp medication this AM. Due to not having meds and bp, pt declined to get out of bed at this time. Pt's bp with therapist was 133/38 and 124/31. RN was informed of pt's status.
[2024-05-23] MEDS: ASPIRIN 81 MG ENTERIC TABLET PO (10:13)
[2024-05-23] MEDS: NEBIVOLOL HCL 5 MG TABLET PO (10:14)
[2024-05-23] MEDS: EZETIMIBE 10 MG TABLET PO (10:14)
[2024-05-23] MEDS: LORATADINE 10 MG TABLET PO (10:14)
[2024-05-23] MEDS: SODIUM CHLORIDE 1 GM TABLET PO ×2 (10:14→18:46)
[2024-05-23] MEDS: AMIODARONE HCL 200 MG TABLET PO (10:14)
[2024-05-23] MEDS: AMOXICILLIN/CLAVULANATE K 875-125 MG TAB 1 TABLET PO ×2 (10:14→20:26)
[2024-05-23] MEDS: FOLIC ACID 1 MG TABLET 3 MG PO (10:14)
[2024-05-23] MEDS: MONTELUKAST SODIUM 10 MG TABLET PO (10:14)
[2024-05-23] MEDS: LINACLOTIDE 145 MCG CAPSULE PO (10:14)
[2024-05-23] MEDS: APIXABAN 5 MG TABLET PO ×2 (10:14→20:27)
--- NOTE | 2024-05-23 12:42 | PM.IMPN ---
Progress Note: A&P Assessment and Plan (1) Elevated troponin: Code(s): R79.89 - Other specified abnormal findings of blood chemistry Status: Acute (2) Type 2 diabetes mellitus: Code(s): E11.9 - Type 2 diabetes mellitus without complications Status: Acute (3) Chest pain: Code(s): R07.9 - Chest pain, unspecified Status: Acute (4) Hyponatremia: Code(s): E87.1 - Hypo-osmolality and hyponatremia Status: Acute (5) AMS (altered mental status): Code(s): R41.82 - Altered mental status, unspecified Status: Acute Plan This is the ED 1-year-old female presents to the ED with chest pain. Patient started feeling chest pain and tightness in the center of the chest while at dinner. She then checked her blood pressure noticed was significantly elevated. No associated nausea vomiting diaphoresis. She called EMS and was brought to the ED. patient is having intermittent chest pain and tightness. In the ED she was hypertensive and bradycardic. Initial troponin was negative but up trended to 0.196. EKG without acute ST-T changes. Patient was started on heparin drip for non ST elevation [place]. aspirin and nitro were started. Cardiology was consulted. Patient on Eliquis for atrial fibrillation. Laboratory evaluation showed mild hyponatremia and hypochloremia kidney function at baseline with creatinine of 1.1 mild to moderately anemic at 9.4. Lipase was normal. Chest x-ray with clear lungs. Serial troponin less than 0.012-0.19 6-0.28 4-0.254 -0.080. Echo with normal LV systolic function with grade 3 diastolic dysfunction Suspected related to hypertensive urgency. Plan for Lexiscan if still persist to have chest pain otherwise will plan for outpatient CCTA at [place]. Still getting intermittent chest pain. Chest pain is atypical. Could be related to GERD. Will add PPI Coronary artery disease status post angioplasty for diagonal lesion 01/2018. Cardiac catheterization 06/2019 with patent coronary arteries. Plan for outpatient CCTA at [place] AFib on Eliquis and amiodarone Hyperlipidemia on atorvastatin 40 ezetimibe 10. LDL at goal at 50 Hyponatremia--Sodium 131--continue sodium tabs BID, repeat Dental pain--Lower jaw, no obvious abscess or erythema but reporting significant pain and exam limited by pain --Change amoxicillin to augumentin x5 days, topical benzocaine. Finish his Augmentin today. --Pain control ANASTACIA and CKD stage 3 creatinine bumped a today. Will hold triamterene hydrochlorothiazide and Lasix. recheck creatinine improved Acute on chronic pain--Schedule tylenol, Oxy 10 QID prn, Morphine 4mg x1 Chronic respiratory failure--on home 2L O2, 100% on 2L, Advair 250/50 BID, Albuterol PRN, continue Not in exacerbation DMII--not on meds HTN--continue zurdo enebivolol 5mg daily Hypothyroidism--continue synthroid RA--Home folic acid, methotrexate, continue, clarify schedule Rapid response called 05/20/2024 patient was drowsy and lethargic speech delayed. Vitals were stable. Suggested weeks on left side CT head with no acute intracranial process. CTA head and neck was done which showed 73% stenosis of the proximal right ICA and 75% stenosis of the left ICA. Brain MRI with normal brain. Noted bilateral carotid artery stenosis this will need to be followed up as an outpatient basis with follow-up with vascular surgery. May need to be mildly hypertensive for cerebral perfusion due to bilateral carotid artery stenosis Chronic anemia at baseline level no signs of bleeding Echo with EF 65-70% grade 3 diastolic dysfunction mild aortic valve regurgitation mild mitral valve regurgitation. Moderate tricuspid valve regurgitation mild pulmonary regurgitation [id number] aortic atherosclerosis noted. Subjective Date/time seen: 05/23/24 12:42 Interval history: patient had a an episode of chest pain earlier last night. She ate spicy pasta earlier yesterday. Was also feeling nauseous. Was hyperte
[2024-05-23] MEDS: PANTOPRAZOLE 40 MG TABLET PO (13:35)
--- NOTE | 2024-05-23 16:53 | PCPTNOTE ---
PT was attempted today and pt declined due to having a visitor. Will cont per POC
[2024-05-23] MEDS: HYDROmorphone HCL INJ (*CRX) 1 MG/ML SYR 0.5 MG IV PUSH (17:21)
[2024-05-23] MEDS: hydrALAZINE 10 MG TABLET PO (18:46)
[2024-05-23] MEDS: ATORVASTATIN 40 MG TABLET PO (20:27)
[2024-05-24] VITALS (15 sets, daily range): BP systolic 131–161; BP diastolic 40–48; PULSE 52–70; RESP 17–18; TEMP 36–36.9; O2SAT 98–100
[2024-05-24] MEDS: oxyCODONE HCL (*CRX) 5 MG TAB IR 10 MG PO ×5 (00:28→22:20)
[2024-05-24] MEDS: LEVOTHYROXINE SODIUM 88 MCG TABLET PO (05:38)
[2024-05-24] MEDS: LINACLOTIDE 145 MCG CAPSULE PO (05:38)
[2024-05-24 06:10] LABS: Hematocrit 31.1 % (37.0-47.0); Hemoglobin 9.6 g/dL (12.0-15.0); Mean Corpuscular HGB Conc 30.9 g/dl (32-36); Mean Corpuscular Hemoglobin 24.2 pg (26-34); Mean Corpuscular Volume 78.5 fl (80-100); Mean Platelet Volume 10.1 fl (7.4-10.4); Platelet Count Result 285 k/mm3 (150-375); Red Blood Count 3.96 M/mm3 (4.2-5.4); Red Cell Distribution Width 16.4 % (11.5-14.5); White Blood Count 10.6 K/mm3 (4.5-10.0)
[2024-05-24 06:19] LABS: Anion Gap 10 mmol/L (4-12); Blood Urea Nitrogen 24 mg/dL (7-17); Calcium 9.2 mg/dL (8.4-10.2); Carbon Dioxide 25 mmol/L (22-30); Chloride 90 mmol/L (98-107); Estimated Glomerular Filt Rate 53; Glucose 122 mg/dL (65-110); Potassium 4.2 mmol/L (3.4-5.0); Sodium 125 mmol/L (137-145)
[2024-05-24] MEDS: FLUTICASONE/SALMETEROL 115-21 MCG INHALER 1 PUFF 2 PUFF INHALATION ×2 (08:17→20:18)
--- NOTE | 2024-05-24 08:48 | PCOTNOTE ---
The patient treatment was not able to be completed Patient eating breakfast. Will plan to continue treatment per plan of care.
[2024-05-24] MEDS: ASPIRIN 81 MG ENTERIC TABLET PO (09:57)
[2024-05-24] MEDS: FOLIC ACID 1 MG TABLET 3 MG PO (09:57)
[2024-05-24] MEDS: NEBIVOLOL HCL 5 MG TABLET PO (09:57)
[2024-05-24] MEDS: MONTELUKAST SODIUM 10 MG TABLET PO (09:58)
[2024-05-24] MEDS: PANTOPRAZOLE 40 MG TABLET PO (09:58)
[2024-05-24] MEDS: AMIODARONE HCL 200 MG TABLET PO (09:58)
[2024-05-24] MEDS: EZETIMIBE 10 MG TABLET PO (09:58)
[2024-05-24] MEDS: SODIUM CHLORIDE 1 GM TABLET PO ×2 (09:59→18:05)
[2024-05-24] MEDS: LORATADINE 10 MG TABLET PO (09:59)
[2024-05-24] MEDS: VALSARTAN 160 MG TABLET 320 MG PO (09:59)
[2024-05-24] MEDS: SPIRONOLACTONE 12.5 MG TABLET PO (09:59)
[2024-05-24] MEDS: APIXABAN 5 MG TABLET PO ×2 (09:59→20:37)
[2024-05-24] MEDS: hydrALAZINE 10 MG TABLET PO ×3 (09:59→18:05)
--- NOTE | 2024-05-24 12:13 | PM.IMPN ---
Progress Note: A&P Assessment and Plan (1) Elevated troponin: Code(s): R79.89 - Other specified abnormal findings of blood chemistry Status: Acute (2) Type 2 diabetes mellitus: Code(s): E11.9 - Type 2 diabetes mellitus without complications Status: Acute (3) Chest pain: Code(s): R07.9 - Chest pain, unspecified Status: Acute (4) Hyponatremia: Code(s): E87.1 - Hypo-osmolality and hyponatremia Status: Acute (5) AMS (altered mental status): Code(s): R41.82 - Altered mental status, unspecified Status: Acute Plan This is the ED 1-year-old female presents to the ED with chest pain. Patient started feeling chest pain and tightness in the center of the chest while at dinner. She then checked her blood pressure noticed was significantly elevated. No associated nausea vomiting diaphoresis. She called EMS and was brought to the ED. patient is having intermittent chest pain and tightness. In the ED she was hypertensive and bradycardic. Initial troponin was negative but up trended to 0.196. EKG without acute ST-T changes. Patient was started on heparin drip for non ST elevation [place]. aspirin and nitro were started. Cardiology was consulted. Patient on Eliquis for atrial fibrillation. Laboratory evaluation showed mild hyponatremia and hypochloremia kidney function at baseline with creatinine of 1.1 mild to moderately anemic at 9.4. Lipase was normal. Chest x-ray with clear lungs. Serial troponin less than 0.012-0.19 6-0.28 4-0.254 -0.080. Echo with normal LV systolic function with grade 3 diastolic dysfunction Suspected related to hypertensive urgency. Plan for Lexiscan if still persist to have chest pain otherwise will plan for outpatient CCTA at [place]. Still getting intermittent chest pain. Chest pain is atypical. Could be related to GERD. Will add PPI Coronary artery disease status post angioplasty for diagonal lesion 01/2018. Cardiac catheterization 06/2019 with patent coronary arteries. Plan for outpatient CCTA at [place] AFib on Eliquis and amiodarone Hyperlipidemia on atorvastatin 40 ezetimibe 10. LDL at goal at 50 Hyponatremia--Sodium 131--continue sodium tabs BID, repeat and monitor Dental pain--Lower jaw, no obvious abscess or erythema but reporting significant pain and exam limited by pain --Change amoxicillin to augumentin x5 days, topical benzocaine. Finish his Augmentin today. --Pain control ANASTACIA and CKD stage 3 creatinine bumped a today. Will hold triamterene hydrochlorothiazide and Lasix. recheck creatinine improved Acute on chronic pain--Schedule tylenol, Oxy 10 QID prn, Morphine 4mg x1 Chronic respiratory failure--on home 2L O2, 100% on 2L, Advair 250/50 BID, Albuterol PRN, continue Not in exacerbation DMII--not on meds HTN--continue zurdo enebivolol 5mg daily Hypothyroidism--continue synthroid RA--Home folic acid, methotrexate, continue, clarify schedule Rapid response called 05/20/2024 patient was drowsy and lethargic speech delayed. Vitals were stable. Suggested weeks on left side CT head with no acute intracranial process. CTA head and neck was done which showed 73% stenosis of the proximal right ICA and 75% stenosis of the left ICA. Brain MRI with normal brain. Noted bilateral carotid artery stenosis this will need to be followed up as an outpatient basis with follow-up with vascular surgery. May need to be mildly hypertensive for cerebral perfusion due to bilateral carotid artery stenosis Chronic anemia at baseline level no signs of bleeding Echo with EF 65-70% grade 3 diastolic dysfunction mild aortic valve regurgitation mild mitral valve regurgitation. Moderate tricuspid valve regurgitation mild pulmonary regurgitation [id number] aortic atherosclerosis noted. Subjective Date/time seen: 05/24/24 12:13 Interval history: No overnight events. Discussed about rehabilitation. Discussed with care coordination. Patient remains afebrile. Feels weak d
[2024-05-24] MEDS: ATORVASTATIN 40 MG TABLET PO (20:37)
[2024-05-25] VITALS (11 sets, daily range): BP systolic 122–142; BP diastolic 43–54; PULSE 51–73; RESP 16–20; TEMP 36.4–36.9; O2SAT 85–100
[2024-05-25] MEDS: oxyCODONE HCL (*CRX) 5 MG TAB IR 10 MG PO ×5 (02:37→22:19)
[2024-05-25 05:59] LABS: Basophils Absolute Auto 0.1 K/mm3 (0.0-0.1); Basophils Percent Auto 0.6 % (0.2-1.2); Eosinophils Absolute Auto 0.1 K/mm3 (0-0.3); Eosinophils Percent Auto 1.2 % (0-4.4); Hematocrit 27.7 % (37.0-47.0); Hemoglobin 8.7 g/dL (12.0-15.0); Immature Granulocyte Absolute 0.05 K/mm3 (0.00-0.031); Immature Granulocyte Percent A 0.5 % (0-0.5); Lymphocytes Absolute Auto 3.42 K/mm3 (0.9-3.2); Lymphocytes Percent Auto 33.2 % (18.3-44.2); Mean Corpuscular HGB Conc 31.4 g/dl (32-36); Mean Corpuscular Hemoglobin 24.6 pg (26-34); Mean Corpuscular Volume 78.2 fl (80-100); Mean Platelet Volume 10.2 fl (7.4-10.4); Monocytes Percent Auto 9.3 % (2.6-8.5); Neutrophils Absolute Auto 5.7 K/mm3 (1.3-6.7); Neutrophils Percent Auto 55.2 % (45.5-73.1); Platelet Count Result 259 k/mm3 (150-375); Red Blood Count 3.54 M/mm3 (4.2-5.4); Red Cell Distribution Width 16.3 % (11.5-14.5); White Blood Count 10.3 K/mm3 (4.5-10.0)
[2024-05-25 06:12] LABS: Potassium 4.2 mmol/L (3.4-5.0)
[2024-05-25 06:15] LABS: Alanine Aminotransferase 14 U/L (6-35); Albumin Level 3.5 g/dL (3.5-5.1); Alkaline Phosphatase 66 U/L (38-126); Anion Gap 8 mmol/L (4-12); Aspartate Amino Transferase 28 U/L (14-36); Bilirubin,Total 1.2 mg/dL (0.2-1.3); Blood Urea Nitrogen 26 mg/dL (7-17); Carbon Dioxide 25 mmol/L (22-30); Chloride 89 mmol/L (98-107); Estimated Glomerular Filt Rate 48; Glucose 104 mg/dL (65-110); Magnesium 1.7 mg/dL (1.6-2.3); Potassium 4.3 mmol/L (3.4-5.0); Sodium 122 mmol/L (137-145)
[2024-05-25] MEDS: LINACLOTIDE 145 MCG CAPSULE PO (06:24)
[2024-05-25] MEDS: LEVOTHYROXINE SODIUM 88 MCG TABLET PO (06:24)
[2024-05-25] MEDS: FUROSEMIDE 20 MG TABLET PO (08:34)
[2024-05-25] MEDS: SPIRONOLACTONE 12.5 MG TABLET PO (08:34)
[2024-05-25] MEDS: SODIUM CHLORIDE 1 GM TABLET PO ×2 (08:35→18:12)
[2024-05-25] MEDS: AMIODARONE HCL 200 MG TABLET PO (08:35)
[2024-05-25] MEDS: ASPIRIN 81 MG ENTERIC TABLET PO (08:35)
[2024-05-25] MEDS: PANTOPRAZOLE 40 MG TABLET PO (08:35)
[2024-05-25] MEDS: EZETIMIBE 10 MG TABLET PO (08:35)
[2024-05-25] MEDS: APIXABAN 5 MG TABLET PO ×2 (08:35→20:23)
[2024-05-25] MEDS: FOLIC ACID 1 MG TABLET 3 MG PO (08:36)
[2024-05-25] MEDS: LORATADINE 10 MG TABLET PO (08:36)
[2024-05-25] MEDS: hydrALAZINE 10 MG TABLET PO ×3 (08:36→18:12)
[2024-05-25] MEDS: NEBIVOLOL HCL 5 MG TABLET PO (08:36)
[2024-05-25] MEDS: VALSARTAN 160 MG TABLET 320 MG PO (08:36)
[2024-05-25] MEDS: MONTELUKAST SODIUM 10 MG TABLET PO (08:37)
[2024-05-25] MEDS: FLUTICASONE/SALMETEROL 115-21 MCG INHALER 1 PUFF 2 PUFF INHALATION ×2 (08:41→20:36)
[2024-05-25 11:19] LABS: Add Urine Microscopic? NO; Appearance Urine Clear (Clear); Bilirubin Urine Negative (Negative); Blood Urine Negative (Negative); Color Urine Yellow (Yellow); Glucose Urine UA Negative (Negative); Ketones Urine Negative (Negative); Leukocyte Esterase Ur Negative LEU/UL (Negative); Nitrate Urine Negative (Negative); Protein Urine Negative (Negative); Specific Grav Ur 1.007 (1.001-1.035)
[2024-05-25] MEDS: CALCIUM CARBONATE (TUMS) 500 MG (200 MG ELEMENTAL) 400 MG PO ×2 (11:35→18:15)
[2024-05-25 11:46] LABS: Creatinine Urine 27.3 mg/dL; Urea Random Urine 326 MG/DL
[2024-05-25 11:47] LABS: Sodium Urine Random 37 meq/L
--- NOTE | 2024-05-25 12:26 | PM.IMPN ---
Progress Note: A&P Assessment and Plan (1) Elevated troponin: Code(s): R79.89 - Other specified abnormal findings of blood chemistry Status: Acute (2) Type 2 diabetes mellitus: Code(s): E11.9 - Type 2 diabetes mellitus without complications Status: Acute (3) Chest pain: Code(s): R07.9 - Chest pain, unspecified Status: Acute (4) Hyponatremia: Code(s): E87.1 - Hypo-osmolality and hyponatremia Status: Acute (5) AMS (altered mental status): Code(s): R41.82 - Altered mental status, unspecified Status: Acute Plan This is the ED 1-year-old female presents to the ED with chest pain. Patient started feeling chest pain and tightness in the center of the chest while at dinner. She then checked her blood pressure noticed was significantly elevated. No associated nausea vomiting diaphoresis. She called EMS and was brought to the ED. patient is having intermittent chest pain and tightness. In the ED she was hypertensive and bradycardic. Initial troponin was negative but up trended to 0.196. EKG without acute ST-T changes. Patient was started on heparin drip for non ST elevation [place]. aspirin and nitro were started. Cardiology was consulted. Patient on Eliquis for atrial fibrillation. Laboratory evaluation showed mild hyponatremia and hypochloremia kidney function at baseline with creatinine of 1.1 mild to moderately anemic at 9.4. Lipase was normal. Chest x-ray with clear lungs. Serial troponin less than 0.012-0.19 6-0.28 4-0.254 -0.080. Echo with normal LV systolic function with grade 3 diastolic dysfunction Suspected related to hypertensive urgency. Plan for Lexiscan if still persist to have chest pain otherwise will plan for outpatient CCTA at [place]. Still getting intermittent chest pain. Chest pain is atypical. Could be related to GERD. Will add PPI Coronary artery disease status post angioplasty for diagonal lesion 01/2018. Cardiac catheterization 06/2019 with patent coronary arteries. Plan for outpatient CCTA at [place] AFib on Eliquis and amiodarone Hyperlipidemia on atorvastatin 40 ezetimibe 10. LDL at goal at 50 Hyponatremia--Sodium 131--continue sodium tabs BID, repeat and monitor. Sodium level continued to decline. Will check urine lytes. Fluid restriction to start. Add Lasix and already on sodium tablets. Lasix was held couple days ago this could be the etiology. Will recheck again in the evening. Dental pain--Lower jaw, no obvious abscess or erythema but reporting significant pain and exam limited by pain --Change amoxicillin to augumentin x5 days, topical benzocaine. Finished Augmentin course --Pain control ANASTACIA and CKD stage 3 creatinine bumped. Held and stopped triamterene hydrochlorothiazide and Lasix. recheck creatinine improved. Will restart Lasix now continue to monitor a function Acute on chronic pain--Schedule tylenol, Oxy 10 QID prn, Morphine 4mg x1 Chronic respiratory failure--on home 2L O2, 100% on 2L, Advair 250/50 BID, Albuterol PRN, continue Not in exacerbation DMII--not on meds HTN--continue zurdo enebivolol 5mg daily Hypothyroidism--continue synthroid RA--Home folic acid, methotrexate, continue, clarify schedule Rapid response called 05/20/2024 patient was drowsy and lethargic speech delayed. Vitals were stable. Suggested weeks on left side CT head with no acute intracranial process. CTA head and neck was done which showed 73% stenosis of the proximal right ICA and 75% stenosis of the left ICA. Brain MRI with normal brain. Noted bilateral carotid artery stenosis this will need to be followed up as an outpatient basis with follow-up with vascular surgery. May need to be mildly hypertensive for cerebral perfusion due to bilateral carotid artery stenosis Chronic anemia at baseline level no signs of bleeding Echo with EF 65-70% grade 3 diastolic dysfunction mild aortic valve regurgitation mild mitral valve regurgitation. Moderate tricuspid valve regurgita
[2024-05-25 16:07] LABS: Sodium 124 mmol/L (137-145)
[2024-05-25] MEDS: ATORVASTATIN 40 MG TABLET PO (20:23)
[2024-05-26] VITALS (19 sets, daily range): BP systolic 101–157; BP diastolic 33–46; PULSE 52–99; RESP 16–20; TEMP 36.4–36.7; O2SAT 92–100
[2024-05-26 05:17] LABS: Basophils Absolute Auto 0.1 K/mm3 (0.0-0.1); Basophils Percent Auto 0.6 % (0.2-1.2); Eosinophils Absolute Auto 0.1 K/mm3 (0-0.3); Eosinophils Percent Auto 1.2 % (0-4.4); Hematocrit 27.7 % (37.0-47.0); Hemoglobin 8.5 g/dL (12.0-15.0); Immature Granulocyte Absolute 0.06 K/mm3 (0.00-0.031); Immature Granulocyte Percent A 0.6 % (0-0.5); Lymphocytes Absolute Auto 3.65 K/mm3 (0.9-3.2); Lymphocytes Percent Auto 33.9 % (18.3-44.2); Mean Corpuscular HGB Conc 30.7 g/dl (32-36); Mean Corpuscular Hemoglobin 24.2 pg (26-34); Mean Corpuscular Volume 78.9 fl (80-100); Mean Platelet Volume 10.2 fl (7.4-10.4); Monocytes Absolute Auto 0.9 K/mm3 (0.1-0.6); Monocytes Percent Auto 8.1 % (2.6-8.5); Neutrophils Percent Auto 55.6 % (45.5-73.1); Platelet Count Result 273 k/mm3 (150-375); Red Blood Count 3.51 M/mm3 (4.2-5.4); Red Cell Distribution Width 16.2 % (11.5-14.5); White Blood Count 10.8 K/mm3 (4.5-10.0)
[2024-05-26 05:29] LABS: Alanine Aminotransferase 15 U/L (6-35); Albumin Level 3.6 g/dL (3.5-5.1); Alkaline Phosphatase 70 U/L (38-126); Anion Gap 9 mmol/L (4-12); Aspartate Amino Transferase 31 U/L (14-36); Bilirubin,Total 1.3 mg/dL (0.2-1.3); Blood Urea Nitrogen 29 mg/dL (7-17); Calcium 9.2 mg/dL (8.4-10.2); Carbon Dioxide 28 mmol/L (22-30); Chloride 88 mmol/L (98-107); Estimated Glomerular Filt Rate 43; Glucose 100 mg/dL (65-110); Magnesium 1.7 mg/dL (1.6-2.3); Potassium 4.5 mmol/L (3.4-5.0); Sodium 125 mmol/L (137-145)
[2024-05-26] MEDS: LEVOTHYROXINE SODIUM 88 MCG TABLET PO (06:23)
[2024-05-26] MEDS: oxyCODONE HCL (*CRX) 5 MG TAB IR 10 MG PO ×3 (06:23→18:00)
[2024-05-26] MEDS: LINACLOTIDE 145 MCG CAPSULE PO (06:23)
[2024-05-26] MEDS: FLUTICASONE/SALMETEROL 115-21 MCG INHALER 1 PUFF 2 PUFF INHALATION ×2 (07:25→20:07)
[2024-05-26 08:13] LABS: Cortisol Random 6.46 ug/dL
[2024-05-26] MEDS: SPIRONOLACTONE 12.5 MG TABLET PO (09:42)
[2024-05-26] MEDS: APIXABAN 5 MG TABLET PO ×2 (09:42→20:09)
[2024-05-26] MEDS: LORATADINE 10 MG TABLET PO (09:42)
[2024-05-26] MEDS: PANTOPRAZOLE 40 MG TABLET PO ×2 (09:42→20:09)
[2024-05-26] MEDS: VALSARTAN 160 MG TABLET 320 MG PO (09:42)
[2024-05-26] MEDS: SODIUM CHLORIDE 1 GM TABLET PO ×2 (09:43→18:00)
[2024-05-26] MEDS: NEBIVOLOL HCL 5 MG TABLET PO (09:43)
[2024-05-26] MEDS: FOLIC ACID 1 MG TABLET 3 MG PO (09:43)
[2024-05-26] MEDS: hydrALAZINE 10 MG TABLET PO ×3 (09:43→18:00)
[2024-05-26] MEDS: ASPIRIN 81 MG ENTERIC TABLET PO (09:43)
[2024-05-26] MEDS: MONTELUKAST SODIUM 10 MG TABLET PO (09:43)
[2024-05-26] MEDS: EZETIMIBE 10 MG TABLET PO (09:44)
[2024-05-26] MEDS: AMIODARONE HCL 200 MG TABLET PO (09:44)
--- NOTE | 2024-05-26 10:47 | PCNWS ---
Weekly nutritional screen. Patient is tolerating current diet with adequate intake. No weight loss reported. No nutritional needs at this time.
--- NOTE | 2024-05-26 11:48 | PM.IMPN ---
Progress Note: A&P Assessment and Plan (1) Elevated troponin: Code(s): R79.89 - Other specified abnormal findings of blood chemistry Status: Acute Assessment and Plan: Patient presents with chest pain and found to have elevated troponins. Troponin peaked at 0.28. CXR clear. EKG showed sinus bradycardia (58) with first-degree AV block and late transition. She had LVH with ST-T wave changes. She was started on a Heparin drip. Echo showed normal LV systolic function with EF of 65-70% and grade 3 diastolic dysfunction. She has moderate biatrial enlargement. Moderate TR otherwise mild valvular disease. Cardiology consulted but felt elevated troponin and chest pain related to cardiac strain from markedly elevated blood pressure. Patient states systolic blood pressure was 230-240 at home. Blood pressure here was 226/76. Medications have been adjusted. Blood pressure better controlled. Chest pain symptoms have resolved. She has a hx of CAD status post angioplasty for diagonal lesion 01/2018. Cardiac catheterization 06/2019 with patent coronary arteries. Plan for outpatient CCTA at [place]. (2) Hypertension: Code(s): I10 - Essential (primary) hypertension Status: Acute Assessment and Plan: Patient's blood pressure was reviewed on 05/26 Blood pressure much better controlled. Will continue current medications. (3) Chest pain: Code(s): R07.9 - Chest pain, unspecified Status: Acute Assessment and Plan: As above (4) Type 2 diabetes mellitus: Code(s): E11.9 - Type 2 diabetes mellitus without complications Status: Acute Assessment and Plan: A1c is 6.7% in October. The patient's blood glucose was reviewed on 05/26 Glucose remains well controlled. Continue to monitor (5) Hyponatremia: Code(s): E87.1 - Hypo-osmolality and hyponatremia Status: Acute Assessment and Plan: Hyponatremia--Sodium 131 but dropped to 122. Sodium tabs BID and fluid restriction started. Lytes more renal etilogy then pre-renal. Sodium level better at 125. Lasix was held couple days ago this could be the etiology. Continue to monitor (6) AMS (altered mental status): Code(s): R41.82 - Altered mental status, unspecified Status: Acute Assessment and Plan: Rapid response called 05/20/2024 patient was drowsy and lethargic speech delayed. Vitals were stable. Suggested weeks on left side CT head with no acute intracranial process. CTA head and neck was done which showed 73% stenosis of the proximal right ICA and 75% stenosis of the left ICA. Brain MRI with normal brain. Noted bilateral carotid artery stenosis this will need to be followed up as an outpatient basis with follow-up with vascular surgery. May need to be mildly hypertensive for cerebral perfusion due to bilateral carotid artery stenosis. Has bilateral carotid artery stenosis for which she needs to vascular surgery as outpatient basis. Plan Atrial Fib - stable. Patient on Eliquis and amiodarone Hyperlipidemia - stable on atorvastatin 40 and ezetimibe 10. LDL at goal at 50 Dental pain--Lower jaw, no obvious abscess or erythema but reporting significant pain and exam limited by pain --Changed amoxicillin to augumentin x5 days, topical benzocaine. Finished Augmentin course --Pain control ANASTACIA and CKD stage 3 - creatinine bumped from 1.1 to 1.6. Stopped triamterene hydrochlorothiazide and Lasix. Recheck creatinine improved. Lasix resumed but Cr up to 1.2 so will hold Lasix again. Acute on chronic pain--Schedule tylenol, Oxy 10 QID prn, Dilaudid prn Chronic respiratory failure-- not on home 2L O2, 100% on RA, Advair 250/50 BID, Albuterol PRN, Home O2 evaluation Hypothyroidism--continue synthroid RA--Home folic acid, methotrexate, continue, clarify schedule Chronic anemia - microcytic. Hx of iron deficiency. Check B12, iron studies. Monitor Disposition: Home with home health when medi
[2024-05-26 13:32] LABS: Anion Gap 13 mmol/L (4-12); Blood Urea Nitrogen 31 mg/dL (7-17); Calcium 9.4 mg/dL (8.4-10.2); Carbon Dioxide 24 mmol/L (22-30); Chloride 90 mmol/L (98-107); Estimated Glomerular Filt Rate 48; Glucose 110 mg/dL (65-110); Potassium 4.3 mmol/L (3.4-5.0); Sodium 127 mmol/L (137-145)
[2024-05-26 13:36] LABS: Iron 33 ug/dL (37-170)
[2024-05-26 13:49] LABS: Percent Iron Saturation 6 % (20-50)
[2024-05-26 14:39] LABS: Folic Acid > 20.0 ng/mL (2.76->20); Vitamin B12 > 1000.0 pg/mL (239-931)
--- NOTE | 2024-05-26 14:49 | PCOTNOTE ---
Attempted to see Patient for P.M. OT treatment session. Patient refused to participate, stated, I'm not interested . Patient educated on the importance of therapy for increased strengthening, mobility. Patient stated she can already do everything, doesn't need therapy. Will try back tomorrow.
--- NOTE | 2024-05-26 15:12 | HOMEO2EVAL ---
Evaluation was performed at [facility] Home Oxygen Evaluation RC: Home Oxygen (O2) Evaluation Start: 05/26/24 12:10 Freq: ONCE Status: Active Protocol: RPE Activity Type Activity Date Activity User E-sign Co-sign Detail Recorded Client Recorded Date Recorded By Document 05/26/24 14:55 DJO [email or web address] 05/26/24 15:12 DJO Document 05/26/24 15:00 DJO [email or web address] 05/26/24 15:12 DJO Document 05/26/24 15:10 DJO [email or web address] 05/26/24 15:12 DJO 05/26/24 05/26/24 05/26/24 14:55 15:00 15:10 Home O2 Evaluation [Oxygen] -Test Phase Resting Exercise Resting -Oxygen Delivery Room Air Room Air Room Air [Pulse Oximetry] -Pulse Oximetry (90-100 %) 99 96 99 [Pulse Rate] -Pulse Rate (60-100 beats/min) 86 99 85 [Evaluation] -Activity Tolerance Fair [Charges] -Evaluation Charges O2 Evaluation by Pulmonary
--- NOTE | 2024-05-26 15:13 | PCRCNOTE ---
HOME O2 EVAL COMPLETE, NO REQUIRMENTS
[2024-05-26] MEDS: IRON SUCROSE COMPLEX 100 MG in SODIUM CHLORIDE 0.9% IV 50 ML 220 MG IVPB (20:08)
[2024-05-26] MEDS: ATORVASTATIN 40 MG TABLET PO (20:09)
[2024-05-27] VITALS (12 sets, daily range): BP systolic 104–138; BP diastolic 39–50; PULSE 50–81; RESP 12–20; TEMP 36.2–37; O2SAT 96–99
[2024-05-27] MEDS: oxyCODONE HCL (*CRX) 5 MG TAB IR 10 MG PO ×5 (00:27→23:35)
[2024-05-27] MEDS: LINACLOTIDE 145 MCG CAPSULE PO (05:04)
[2024-05-27] MEDS: LEVOTHYROXINE SODIUM 88 MCG TABLET PO (05:04)
[2024-05-27 05:46] LABS: Basophils Absolute Auto 0.1 K/mm3 (0.0-0.1); Basophils Percent Auto 0.6 % (0.2-1.2); Eosinophils Absolute Auto 0.1 K/mm3 (0-0.3); Hematocrit 28.8 % (37.0-47.0); Hemoglobin 8.9 g/dL (12.0-15.0); Immature Granulocyte Absolute 0.03 K/mm3 (0.00-0.031); Immature Granulocyte Percent A 0.3 % (0-0.5); Lymphocytes Absolute Auto 3.21 K/mm3 (0.9-3.2); Lymphocytes Percent Auto 33.5 % (18.3-44.2); Mean Corpuscular HGB Conc 30.9 g/dl (32-36); Mean Corpuscular Hemoglobin 24.7 pg (26-34); Mean Corpuscular Volume 79.8 fl (80-100); Mean Platelet Volume 10.1 fl (7.4-10.4); Monocytes Absolute Auto 0.9 K/mm3 (0.1-0.6); Monocytes Percent Auto 9.2 % (2.6-8.5); Neutrophils Absolute Auto 5.3 K/mm3 (1.3-6.7); Neutrophils Percent Auto 55.4 % (45.5-73.1); Platelet Count Result 270 k/mm3 (150-375); Red Blood Count 3.61 M/mm3 (4.2-5.4); Red Cell Distribution Width 16.5 % (11.5-14.5); White Blood Count 9.6 K/mm3 (4.5-10.0)
[2024-05-27 06:06] LABS: Albumin Level 3.7 g/dL (3.5-5.1); Anion Gap 11 mmol/L (4-12); Blood Urea Nitrogen 33 mg/dL (7-17); Calcium 9.1 mg/dL (8.4-10.2); Carbon Dioxide 26 mmol/L (22-30); Chloride 92 mmol/L (98-107); Estimated Glomerular Filt Rate 33; Glucose 104 mg/dL (65-110); Magnesium 1.7 mg/dL (1.6-2.3); Potassium 4.4 mmol/L (3.4-5.0); Sodium 129 mmol/L (137-145)
[2024-05-27] MEDS: FLUTICASONE/SALMETEROL 115-21 MCG INHALER 1 PUFF 2 PUFF INHALATION ×2 (07:39→21:47)
[2024-05-27] MEDS: SODIUM CHLORIDE 1 GM TABLET PO ×2 (09:39→17:39)
[2024-05-27] MEDS: VALSARTAN 160 MG TABLET 320 MG PO (09:39)
[2024-05-27] MEDS: NEBIVOLOL HCL 5 MG TABLET PO (09:39)
[2024-05-27] MEDS: FERROUS SULFATE 325 MG TABLET DR PO (09:39)
[2024-05-27] MEDS: SPIRONOLACTONE 12.5 MG TABLET PO (09:40)
[2024-05-27] MEDS: FOLIC ACID 1 MG TABLET 3 MG PO (09:40)
[2024-05-27] MEDS: ASPIRIN 81 MG ENTERIC TABLET PO (09:40)
[2024-05-27] MEDS: APIXABAN 5 MG TABLET PO ×2 (09:40→20:05)
[2024-05-27] MEDS: hydrALAZINE 10 MG TABLET PO ×3 (09:40→17:39)
[2024-05-27] MEDS: PANTOPRAZOLE 40 MG TABLET PO ×2 (09:40→20:06)
[2024-05-27] MEDS: EZETIMIBE 10 MG TABLET PO (09:41)
[2024-05-27] MEDS: LORATADINE 10 MG TABLET PO (09:41)
[2024-05-27] MEDS: MONTELUKAST SODIUM 10 MG TABLET PO (09:41)
[2024-05-27] MEDS: AMIODARONE HCL 200 MG TABLET PO (09:41)
[2024-05-27] MEDS: IRON SUCROSE COMPLEX 100 MG in SODIUM CHLORIDE 0.9% IV 50 ML 150 MG IVPB (09:48)
--- NOTE | 2024-05-27 12:27 | PM.IMPN ---
Progress Note: A&P Assessment and Plan (1) Elevated troponin: Code(s): R79.89 - Other specified abnormal findings of blood chemistry Status: Acute Assessment and Plan: Patient presents with chest pain and found to have elevated troponins. Troponin peaked at 0.28. CXR clear. EKG showed sinus bradycardia (58) with first-degree AV block and late transition. She had LVH with ST-T wave changes. She was started on a Heparin drip. Echo showed normal LV systolic function with EF of 65-70% and grade 3 diastolic dysfunction. She has moderate biatrial enlargement. Moderate TR otherwise mild valvular disease. Cardiology consulted but felt elevated troponin and chest pain related to cardiac strain from markedly elevated blood pressure. Patient states systolic blood pressure was 230-240 at home. Blood pressure here was 226/76. Medications have been adjusted. Blood pressure better controlled. Chest pain symptoms have resolved. She has a hx of CAD status post angioplasty for diagonal lesion 01/2018. Cardiac catheterization 06/2019 with patent coronary arteries. Plan for outpatient CCTA at [facility] to stop tele. (2) Hypertension: Code(s): I10 - Essential (primary) hypertension Status: Acute Assessment and Plan: Patient's blood pressure was reviewed on 05/27 Blood pressure much better controlled. Will continue current medications. (3) Chest pain: Code(s): R07.9 - Chest pain, unspecified Status: Acute Assessment and Plan: As above (4) Type 2 diabetes mellitus: Code(s): E11.9 - Type 2 diabetes mellitus without complications Status: Acute Assessment and Plan: A1c is 6.7% in October. The patient's blood glucose was reviewed on 05/27 Glucose remains well controlled. Continue to monitor (5) Hyponatremia: Code(s): E87.1 - Hypo-osmolality and hyponatremia Status: Acute Assessment and Plan: Sodium 131 but dropped to 122. Sodium tabs BID and fluid restriction started. Lytes more renal etilogy then pre-renal. Sodium level better at 129. Lasix was held couple days ago this could be the etiology. Lasix held again due to rising Cr. Continue to monitor (6) AMS (altered mental status): Code(s): R41.82 - Altered mental status, unspecified Status: Acute Assessment and Plan: Rapid response called 05/20/2024 patient was drowsy and lethargic speech delayed. Vitals were stable. Suggested weeks on left side CT head with no acute intracranial process. CTA head and neck was done which showed 73% stenosis of the proximal right ICA and 75% stenosis of the left ICA. Brain MRI with normal brain. Noted bilateral carotid artery stenosis this will need to be followed up as an outpatient basis with follow-up with vascular surgery. May need to be mildly hypertensive for cerebral perfusion due to bilateral carotid artery stenosis. Has bilateral carotid artery stenosis for which she needs to vascular surgery as outpatient basis. (7) Acute on chronic kidney failure: Code(s): N17.9 - Acute kidney failure, unspecified; N18.9 - Chronic kidney disease, unspecified Status: Acute Assessment and Plan: Creatinine bumped from 1.1 to 1.6. Stopped triamterene hydrochlorothiazide and Lasix. Recheck creatinine improved. Lasix resumed but Cr up to 1.2 so Lasix held again. Despite holding Lasix, Cr up to 1.5 today. Check Renal US. Stop fluid restritction Plan Atrial Fib - stable. Patient on Eliquis and amiodarone Hyperlipidemia - stable on atorvastatin 40 and ezetimibe 10. LDL at goal at 50 Dental pain--Lower jaw, no obvious abscess or erythema but reporting significant pain and exam limited by pain --Changed amoxicillin to augumentin x5 days, topical benzocaine. Finished Augmentin course --Pain control Acute on chronic pain--Schedule tylenol, Oxy 10 QID prn, Dilaudid prn Chronic respiratory failure-- not on home 2L O2, 100
[2024-05-27 14:39] LABS: Osmolality, Urine 269 mOsm/kg (50-1200)
[2024-05-27 17:58] LABS: Anion Gap 12 mmol/L (4-12); Blood Urea Nitrogen 34 mg/dL (7-17); Carbon Dioxide 22 mmol/L (22-30); Chloride 94 mmol/L (98-107); Estimated Glomerular Filt Rate 43; Glucose 101 mg/dL (65-110); Potassium 4.4 mmol/L (3.4-5.0); Sodium 128 mmol/L (137-145)
[2024-05-27] MEDS: CALCIUM CARBONATE (TUMS) 500 MG (200 MG ELEMENTAL) 400 MG PO (20:05)
[2024-05-27] MEDS: ATORVASTATIN 40 MG TABLET PO (20:05)
[2024-05-28 05:04] VITALS: BP 134/50; PULSE 60; RESP 16; TEMP 36.6; O2SAT 99
[2024-05-28] MEDS: LEVOTHYROXINE SODIUM 88 MCG TABLET PO (05:31)
[2024-05-28] MEDS: oxyCODONE HCL (*CRX) 5 MG TAB IR 10 MG PO ×2 (05:31→11:54)
[2024-05-28] MEDS: LINACLOTIDE 145 MCG CAPSULE PO (05:31)
[2024-05-28 06:24] LABS: Hematocrit 29.1 % (37.0-47.0); Hemoglobin 8.7 g/dL (12.0-15.0); Mean Corpuscular HGB Conc 29.9 g/dl (32-36); Mean Corpuscular Hemoglobin 24.1 pg (26-34); Mean Corpuscular Volume 80.6 fl (80-100); Mean Platelet Volume 10.2 fl (7.4-10.4); Platelet Count Result 271 k/mm3 (150-375); Red Blood Count 3.61 M/mm3 (4.2-5.4); Red Cell Distribution Width 16.7 % (11.5-14.5); White Blood Count 10.1 K/mm3 (4.5-10.0)
[2024-05-28 06:50] LABS: Anion Gap 10 mmol/L (4-12); Blood Urea Nitrogen 31 mg/dL (7-17); Calcium 9.2 mg/dL (8.4-10.2); Carbon Dioxide 25 mmol/L (22-30); Chloride 93 mmol/L (98-107); Estimated Glomerular Filt Rate 43; Glucose 106 mg/dL (65-110); Magnesium 1.8 mg/dL (1.6-2.3); Potassium 4.1 mmol/L (3.4-5.0); Sodium 128 mmol/L (137-145)
[2024-05-28] MEDS: APIXABAN 5 MG TABLET PO (09:12)
[2024-05-28] MEDS: EZETIMIBE 10 MG TABLET PO (09:12)
[2024-05-28] MEDS: FERROUS SULFATE 325 MG TABLET DR PO (09:12)
[2024-05-28] MEDS: ASPIRIN 81 MG ENTERIC TABLET PO (09:12)
[2024-05-28] MEDS: MONTELUKAST SODIUM 10 MG TABLET PO (09:12)
[2024-05-28] MEDS: FUROSEMIDE 20 MG TABLET PO (09:12)
[2024-05-28] MEDS: SODIUM CHLORIDE 1 GM TABLET PO (09:13)
[2024-05-28] MEDS: VALSARTAN 160 MG TABLET 320 MG PO (09:13)
[2024-05-28] MEDS: LORATADINE 10 MG TABLET PO (09:13)
[2024-05-28] MEDS: PANTOPRAZOLE 40 MG TABLET PO (09:13)
[2024-05-28 09:14] VITALS: PULSE 54
[2024-05-28] MEDS: SPIRONOLACTONE 12.5 MG TABLET PO (09:14)
[2024-05-28] MEDS: NEBIVOLOL HCL 5 MG TABLET PO (09:14)
[2024-05-28 09:15] VITALS: BP 146/40; PULSE 52; PULSE 54; TEMP 36.3; O2SAT 100
[2024-05-28] MEDS: AMIODARONE HCL 200 MG TABLET PO (09:15)
[2024-05-28] MEDS: hydrALAZINE 10 MG TABLET PO ×2 (09:15→12:47)
[2024-05-28] MEDS: FOLIC ACID 1 MG TABLET 3 MG PO (09:17)
[2024-05-28] MEDS: IRON SUCROSE COMPLEX 100 MG in SODIUM CHLORIDE 0.9% IV 50 ML 150 MG IVPB (09:18)
[2024-05-28 09:41] VITALS: O2SAT 100
[2024-05-28] MEDS: FLUTICASONE/SALMETEROL 115-21 MCG INHALER 1 PUFF 2 PUFF INHALATION (10:13)
[2024-05-28 10:16] VITALS: PULSE 50; RESP 16; O2SAT 98
--- NOTE | 2024-05-28 11:33 | PCOTNOTE ---
The patient treatment was not able to be completed. Patient currently working with PT. Will plan to continue treatment per plan of care.
--- NOTE | 2024-05-28 12:55 | PM.DS ---
DS: Admitting Diagnosis Discharge Date 05/28/24 Admitting Diagnosis Chest pain DS: Discharge Diagnosis Discharge Diagnosis (1) Elevated troponin: Code(s): R79.89 - Other specified abnormal findings of blood chemistry Status: Acute (2) Hypertension: Code(s): I10 - Essential (primary) hypertension Status: Acute (3) Chest pain: Code(s): R07.9 - Chest pain, unspecified Status: Acute (4) Type 2 diabetes mellitus: Code(s): E11.9 - Type 2 diabetes mellitus without complications Status: Acute (5) Hyponatremia: Code(s): E87.1 - Hypo-osmolality and hyponatremia Status: Acute (6) AMS (altered mental status): Code(s): R41.82 - Altered mental status, unspecified Status: Acute (7) Acute on chronic kidney failure: Code(s): N17.9 - Acute kidney failure, unspecified; N18.9 - Chronic kidney disease, unspecified Status: Acute (8) Atrial fibrillation: Code(s): I48.91 - Unspecified atrial fibrillation Status: Acute (9) Hyperlipidemia: Qualifiers: Hyperlipidemia type: unspecified Qualified Code(s): E78.5 - Hyperlipidemia, unspecified Code(s): E78.5 - Hyperlipidemia, unspecified Status: Chronic (10) Pain in tooth: Code(s): K08.89 - Other specified disorders of teeth and supporting structures Status: Inactive (11) Rheumatoid arthritis: Qualifiers: Rheumatoid arthritis location: hand Rheumatoid factor presence: unspecified presence Laterality: bilateral Qualified Code(s): M06.9 - Rheumatoid arthritis, unspecified Code(s): M06.9 - Rheumatoid arthritis, unspecified Status: Chronic (12) Anemia: Code(s): D64.9 - Anemia, unspecified Status: Acute (13) Hypothyroidism: Qualifiers: Hypothyroidism type: unspecified Qualified Code(s): E03.9 - Hypothyroidism, unspecified Code(s): E03.9 - Hypothyroidism, unspecified Status: Acute DS: Summary Hospital Course Reason for hospitalization: 79yo female with CAD, AFib on Eliquis, RA and HTN here for chest pain. Please see H&P for details Hospital Course: Patient presented with chest pain and found to have elevated troponins. Troponin peaked at 0.28. CXR clear. EKG showed sinus bradycardia (58) with first-degree AV block and late transition. She had LVH with ST-T wave changes. She was started on a Heparin drip. Echo showed normal LV systolic function with EF of 65-70% and grade 3 diastolic dysfunction. She has moderate biatrial enlargement. Moderate TR otherwise mild valvular disease. Cardiology consulted but felt elevated troponin and chest pain related to cardiac strain from markedly elevated blood pressure. Patient states systolic blood pressure was 230-240 at home. Blood pressure on admission here was 226/76. Medications have been adjusted. Blood pressure better controlled. Chest pain symptoms have resolved. She has a hx of CAD status post angioplasty for diagonal lesion 01/2018. Cardiac catheterization 06/2019 with patent coronary arteries. Plan for outpatient CCTA at [facility]. A1c is 6.7% in October. The patient's glucose remained stable. Sodium 131 but dropped to 122. Sodium tablets BID and fluid restriction started. Lytes more renal etiology then pre-renal. Sodium level better at 128. Lasix was held for a couple of days so this could be the etiology. Lasix held again due to rising Cr. Creatinine bumped from 1.1 to 1.6. We stopped triamterene hydrochlorothiazide and Lasix. Recheck creatinine improved. Lasix resumed but Cr up to 1.5 so Lasix held again. Cr better. Renal US normal. Rapid response called 05/20/2024 for patient being drowsy and lethargic with speech delayed. Vitals were stable. CT head with no acute intracranial process. CTA head and neck was done which showed 73% stenosis of the proximal right ICA and 75% stenosis of the left ICA. Brain MRI with normal brain. Noted bilater
== END 2024-05-28 15:40 | disposition home or self-care (01) | DRG 305 ==
LOC: ANHED 06:28 → ANHIMU 07:47 → ANH2MED 05-21 18:57
PROVIDERS: Family Medicine; Internal Medicine; Nurse Practitioner; Nurse Practitioner Acute Care; Admitting Provider Internal Medicine; Emergency Provider Emergency Medicine; PCP Family Medicine; Visit Provider Internal Medicine
DX: I16.0 Hypertensive urgency (principal); E87.1 Hypo-osmolality and hyponatremia; I50.32 Chronic diastolic (congestive) heart failure; J96.10 Chronic respiratory failure, unspecified whether with hypoxia or hypercapnia; I44.0 Atrioventricular block, first degree; D50.9 Iron deficiency anemia, unspecified; E78.5 Hyperlipidemia, unspecified; E11.42 Type 2 diabetes mellitus with diabetic polyneuropathy; E55.9 Vitamin D deficiency, unspecified; E53.8 Deficiency of other specified B group vitamins; E03.9 Hypothyroidism, unspecified; G89.4 Chronic pain syndrome; G47.33 Obstructive sleep apnea (adult) (pediatric); I25.10 Atherosclerotic heart disease of native coronary artery without angina pectoris; I48.0 Paroxysmal atrial fibrillation; I11.0 Hypertensive heart disease with heart failure; I65.23 Occlusion and stenosis of bilateral carotid arteries; K21.9 Gastro-esophageal reflux disease without esophagitis; K08.89 Other specified disorders of teeth and supporting structures; M06.9 Rheumatoid arthritis, unspecified; R79.89 Other specified abnormal findings of blood chemistry; Z79.82 Long term (current) use of aspirin; Z86.718 Personal history of other venous thrombosis and embolism; Z79.01 Long term (current) use of anticoagulants; Z98.61 Coronary angioplasty status; Z91.199 Patient's noncompliance with other medical treatment and regimen due to unspecified reason; Z90.49 Acquired absence of other specified parts of digestive tract
CPT/HCPCS: 36415; 70450; 70496; 70498; 70551; 71045; 76775; 80048; 80053; 80069; 81003; 82533; 82570; 82607; 82728; 82746; 82948; 83540; 83550; 83690; 83735; 83880; 83930; 83935; 84100; 84132; 84295; 84300; 84443; 84484; 84540; 85025; 85027; 85610; 85652; 85730; 86140; 92610; 93005; 93306; 93308; 94618; 94640; 96374; 96375; 97110; 97116; 97161; 97165; 97530; 97535; 99285; A9270; J0360; J1170; J1644; J1756; J2270; J7030; Q9967

== ENCOUNTER 2024-06-04 10:19 | Outpatient (CLI) | payer MEDICARE, BC, SELFPAY ==
[2024-06-04 11:04] LABS: Basophils Absolute Auto 0.1 K/mm3 (0.0-0.1); Basophils Percent Auto 0.6 % (0.2-1.2); Eosinophils Percent Auto 0.3 % (0-4.4); Hematocrit 31.5 % (37.0-47.0); Immature Granulocyte Absolute 0.08 K/mm3 (0.00-0.031); Immature Granulocyte Percent A 0.7 % (0-0.5); Lymphocytes Absolute Auto 3.95 K/mm3 (0.9-3.2); Lymphocytes Percent Auto 34.2 % (18.3-44.2); Mean Corpuscular HGB Conc 31.7 g/dl (32-36); Mean Corpuscular Hemoglobin 25.1 pg (26-34); Mean Corpuscular Volume 78.9 fl (80-100); Mean Platelet Volume 9.9 fl (7.4-10.4); Monocytes Absolute Auto 0.7 K/mm3 (0.1-0.6); Monocytes Percent Auto 6.1 % (2.6-8.5); Neutrophils Absolute Auto 6.7 K/mm3 (1.3-6.7); Neutrophils Percent Auto 58.1 % (45.5-73.1); Platelet Count Result 372 k/mm3 (150-375); Red Blood Count 3.99 M/mm3 (4.2-5.4); Red Cell Distribution Width 18.2 % (11.5-14.5); White Blood Count 11.5 K/mm3 (4.5-10.0)
[2024-06-04 11:21] LABS: Alanine Aminotransferase 19 U/L (6-35); Albumin Level 4.1 g/dL (3.5-5.1); Alkaline Phosphatase 80 U/L (38-126); Anion Gap 13 mmol/L (4-12); Aspartate Amino Transferase 33 U/L (14-36); Bilirubin,Total 1.1 mg/dL (0.2-1.3); Blood Urea Nitrogen 13 mg/dL (7-17); Calcium 9.1 mg/dL (8.4-10.2); Carbon Dioxide 24 mmol/L (22-30); Chloride 86 mmol/L (98-107); Cholesterol 99 mg/dL (0-200); Estimated Glomerular Filt Rate 53; Glucose 107 mg/dL (65-110); HDL Direct 61 mg/dL; Potassium 3.7 mmol/L (3.4-5.0); Sodium 123 mmol/L (137-145); Triglycerides 94 mg/dL (<150)
[2024-06-04 11:35] LABS: Creatinine Urine 59.7 mg/dL
[2024-06-04 11:37] LABS: MALB Creatinine Ratio 20.3 mg/g (0-30); Microalbumin Urine Random 12.1 mg/L (0-16.7)
[2024-06-04 11:45] LABS: Free T4 Free Thyroxine 2.33 ng/mL (0.78-2.19); Vitamin D 25 Hydroxy 28.8 ng/mL
[2024-06-04 12:40] LABS: LDL Cholesterol Direct < 30 mg/dL
== END 2024-06-04 10:20 | disposition home or self-care (01) ==
PROVIDERS: PCP Family Medicine; Referring Provider Family Medicine; Visit Provider Internal Medicine
DX: D64.9 Anemia, unspecified (principal); E03.9 Hypothyroidism, unspecified; E55.9 Vitamin D deficiency, unspecified; E87.1 Hypo-osmolality and hyponatremia; I10 Essential (primary) hypertension; I25.10 Atherosclerotic heart disease of native coronary artery without angina pectoris; E11.9 Type 2 diabetes mellitus without complications; R42 Dizziness and giddiness; R55 Syncope and collapse
CPT/HCPCS: 36415; 80053; 80061; 82043; 82306; 84439; 84443; 85025

== ENCOUNTER 2024-06-04 13:24 | Inpatient (IN) | payer MEDICARE, BC, SELFPAY ==
[2024-06-04] VITALS (16 sets, daily range): BP systolic 129–181; BP diastolic 51–76; PULSE 52–89; RESP 9–20; TEMP 36.4–36.6; O2SAT 96–100; BMI 21.7
--- NOTE | ~2024-06-04 | XR_ITS ---
EXAMINATION: XR chest 2V DATE: 06/04/2024 14:08 INDICATION: Chest pain. TECHNIQUE: Frontal and lateral views of the chest were obtained. COMPARISON: Chest single view 05/19/2024 FINDINGS: There is no pneumonia, pleural effusion, or pneumothorax. Cardiomegaly is noted. There is a moderate-sized hiatal hernia. There are suture anchors in right humeral head. Surgical clips in the right upper quadrant are likely from cholecystectomy. IMPRESSION: 1. Moderate-sized hiatal hernia. 2. Cardiomegaly. Reviewed, dictated and finalized at location A.
--- NOTE | 2024-06-04 13:27 | ECG_ITS ---
Test Date: 2024-06-04 13:37:46 Measurements Intervals [place] Rate: 58 P: 30 TX: 208 QRS: -41 QRSD: 109 T: 59 QT: 464 QTc: 456 Interpretive Statements SINUS BRADYCARDIA LEFT AXIS DEVIATION INCOMPLETE RIGHT BUNDLE BRANCH BLOCK LEFT VENTRICULAR HYPERTROPHY WITH ST-T CHANGE CANNOT R/O SEPTAL INFARCT, AGE INDETERMINATE BASELINE ARTIFACT- I, II, III, AVR, AVL, AVF ABNORMAL ECG Compared to ECG 05/23/2024 04:05:27 Incomplete right bundle-branch block now present Electronically Signed On 06-04-2024 18:37:01 CDT by Jasvir Steele D.O.
[2024-06-04 13:51] LABS: Basophils Absolute Auto 0.1 K/mm3 (0.0-0.1); Basophils Percent Auto 0.5 % (0.2-1.2); Eosinophils Percent Auto 0.1 % (0-4.4); Hematocrit 30.2 % (37.0-47.0); Hemoglobin 9.6 g/dL (12.0-15.0); Immature Granulocyte Absolute 0.06 K/mm3 (0.00-0.031); Immature Granulocyte Percent A 0.6 % (0-0.5); Lymphocytes Absolute Auto 3.43 K/mm3 (0.9-3.2); Lymphocytes Percent Auto 32.8 % (18.3-44.2); Mean Corpuscular HGB Conc 31.8 g/dl (32-36); Mean Corpuscular Volume 78.6 fl (80-100); Mean Platelet Volume 10.2 fl (7.4-10.4); Monocytes Absolute Auto 0.6 K/mm3 (0.1-0.6); Monocytes Percent Auto 5.4 % (2.6-8.5); Neutrophils Absolute Auto 6.4 K/mm3 (1.3-6.7); Neutrophils Percent Auto 60.6 % (45.5-73.1); Platelet Count Result 371 k/mm3 (150-375); Red Blood Count 3.84 M/mm3 (4.2-5.4); Red Cell Distribution Width 18.4 % (11.5-14.5); White Blood Count 10.5 K/mm3 (4.5-10.0)
[2024-06-04 14:01] LABS: INR 1.6
[2024-06-04 14:02] LABS: Partial Thromboplastin Time 37.6 Seconds (22.3-36.8)
[2024-06-04 14:04] LABS: Alanine Aminotransferase 18 U/L (6-35); Albumin Level 4.1 g/dL (3.5-5.1); Alkaline Phosphatase 74 U/L (38-126); Anion Gap 12 mmol/L (4-12); Aspartate Amino Transferase 34 U/L (14-36); Blood Urea Nitrogen 14 mg/dL (7-17); Calcium 8.8 mg/dL (8.4-10.2); Carbon Dioxide 23 mmol/L (22-30); Chloride 87 mmol/L (98-107); Estimated Glomerular Filt Rate 60; Glucose 132 mg/dL (65-110); Lipase 42 U/L (23-300); Potassium 3.4 mmol/L (3.4-5.0); Sodium 122 mmol/L (137-145)
[2024-06-04 14:15] LABS: Troponin I 0.019 ng/mL (0.000-0.034)
--- NOTE | 2024-06-04 14:41 | ED.CHESTPAIN ---
HPI - Chest Pain General Chief Complaint: Chest Pain Stated Complaint: chest Pain Time Seen by Provider: 06/04/24 13:42 History of Present Illness HPI narrative: This is an 79-year-old female with a past medical history significant for coronary artery disease, atrial fibrillation on Eliquis, rheumatoid arthritis and hypertension. She was recently hospitalized here for a several day stay after she was found to have an NSTEMI and uncontrolled high blood pressure with hypertensive crisis. She was discharged home with instructions to follow-up outpatient. She returns today with 3 days of worsening chest pressure and dyspnea with exertion. She states today was the worst where she was trying to walk down for the block into her house and she got diaphoretic, chest pressure and short of breath. This resolved with rest and family insisted that she proceed to the ER. Presently at rest she is not exhibiting any chest pain or shortness of breath. She states when she gets up with minimal exertion she will get chest pressure and shortness of breath. No nausea, vomiting, diaphoresis, abdominal pain, back pain, fever, chills presently. States her blood pressure is much more under control then was previously. She is not range between 140s to 160s at home her to the 220 she was in during her admission last week. She has not been able to seen as a follow-up since her discharge. She is expressing concern that her symptoms are related to her blood pressure. Presently she has normal vital signs with a blood pressure 131/51, pulse 57, afebrile, 98% saturation on room air. No new injuries or trauma. Related Data Home Medications Medication Instructions Recorded Confirmed aspirin 81 mg tablet,delayed 81 mg PO DAILY 07/29/19 05/31/24 release (Adult Low Dose Aspirin) cetirizine 10 mg capsule 10 mg PO DAILY 03/15/23 05/31/24 ezetimibe 10 mg tablet 10 mg PO DAILY 03/15/23 05/31/24 folic acid 1 mg tablet 3 mg PO DAILY 03/15/23 05/31/24 albuterol sulfate 90 mcg/actuation 2 puff inhalation QID PRN 06/22/23 05/31/24 aerosol inhaler Shortness Of Breath Or Wheezing furosemide 40 mg tablet 20 mg PO DAILY 06/22/23 05/31/24 methotrexate sodium 2.5 mg tablet 2.5 mg PO WEEKLY 06/22/23 05/31/24 docusate sodium 100 mg capsule 100 mg PO DAILY 02/04/24 05/31/24 (Dulcolax Stool Softener (docusate)) kljfydpe-mon-R. coag-B. 1 tablet PO DAILY 02/04/24 05/31/24 subtilis-inulin 1 billion cell-1 gram chew tab (Culturelle Probiotic-Multivit) spironolactone 25 mg tablet 12.5 mg PO DAILY 02/04/24 05/31/24 fluticasone 250 mcg-salmeterol 50 1 inh inhalation BID 05/12/24 05/31/24 mcg/dose blistr powdr for inhalation (Advair Diskus) montelukast 10 mg tablet 10 mg PO DAILY 05/19/24 05/31/24 Allergies Allergy/AdvReac Type Severity Reaction Status Date / Time No Known Allergies Allergy Verified 06/04/24 14:00 Review of Systems Review of Systems: As reviewed above in the HPI [facility] Past Medical History Medical History Anxiety Asthma Chronic anticoagulation Chronic hyponatremia Chronic pain syndrome Chronic, continuous use of opioids Coronary artery disease Angioplasty of a diagonal lesion in 01/2018. Cardiac catheterization 06/2019 showed patent coronary arteries. Deep venous thrombosis Degenerative joint disease involving multiple joints Depression Folic acid deficiency Gastroesophageal reflux disease Heart failure with preserved ejection fraction Hiatal hernia Hyperlipidemia Hypertension Hypothyroidism Irritable bowel syndrome More than 50 percent stenosis of right internal carotid artery Obstructive sleep apnea Noncompliant with CPAP. Paroxysmal atrial fibrillation Peptic ulcer Peripheral neuropathy Pneumonia Renal artery stenosis Rheumatoid arthritis Seasonal allergies Type 2 diabetes mellitus Vitamin B 12 deficiency Vitamin D deficiency Surgical History Surgical Hi
[2024-06-04 17:14] LABS: Troponin I < 0.012 ng/mL (0.000-0.034)
[2024-06-04] MEDS: oxyCODONE/ACETAMINOPHEN (*CRX) 5-325 MG TABLET 2 TABLET PO (18:18)
--- NOTE | 2024-06-04 18:35 | PC.NURSE ---
PT STATES IV IN HER LEFT UPPER ARM IS VERY PAINFUL. +BLOOD RETURN AND FLUSHES EASILY BUT PT YELPS IN PAIN. ATTEMPTED IV ACCESS X2 WITH NO SUCCESS.
--- NOTE | 2024-06-04 19:41 | PM.IMHP ---
H&P: HPI History of Present Illness Date/Time: 06/04/24 19:41 Chief Complaint: Chest Pain Narrative: 79 y/o F presents here with chest pain with PMH of chronic hyponatremia, CAD, DVT, anxiety/depression, HF with preserved EF, HLD, HTN, hypothyroidism, IBS, ELVIRA noncompliant with CPAP, paroxysmal AFib, rheumatoid arthritis, and diabetes. The patient presents here via EMS from home for further evaluation of intermittent chest pain. She reports over the last 3 days that she has been experiencing a intermittent midsternal chest pain that is accompanying by shortness of breath. She further describes the chest pain as pressure, nonradiating, intermittent, aggravated by exertion, and alleviated by rest. Patient took 324 of ASA and nitro SL yesterday with some resolution of symptoms. She endorses accompanying weakness and diaphoresis today. Denies associated nausea, vomiting, dizziness, or palpitations. Per chart review, patient recently admitted from 05/19/2024 to 05/28/2024 for chest pain and elevated troponin. Elevation in troponin suspected to be secondary to hypertensive urgency. Per cardiology consultation during this visit, patient has history of chest pain with elevated blood pressures. They had plan for Lexiscan if pain was reproducible with activity, however only occurred with high blood pressure. Plan outpatient for a CCTA at [facility] (scheduled for 06/29). Patient's presenting blood pressure during this ED evaluation/admission was 131/51. Initial VS at presentation: 97.9? F, HR 60, RR 12, 131/51, and 97% on RA. ED workup showed: WBC 10.5, hemoglobin 9.6 (previously 8.7 on 05/28/2024), INR 1.6, sodium 122 (previously 128 on 05/28/2024), creatinine 0.9 and GFR 60, glucose 132, initial troponin negative. CXR showed a moderate-sized hiatal hernia and cardiomegaly. Review of Systems Review of Systems: All systems reviewed & are unremarkable except as noted in HPI and below PMFSH Past Medical History Medical History Anxiety Asthma Chronic anticoagulation Chronic hyponatremia Chronic pain syndrome Chronic, continuous use of opioids Coronary artery disease Angioplasty of a diagonal lesion in 01/2018. Cardiac catheterization 06/2019 showed patent coronary arteries. Deep venous thrombosis Degenerative joint disease involving multiple joints Depression Folic acid deficiency Gastroesophageal reflux disease Heart failure with preserved ejection fraction Hiatal hernia Hyperlipidemia Hypertension Hypothyroidism Irritable bowel syndrome More than 50 percent stenosis of right internal carotid artery Obstructive sleep apnea Noncompliant with CPAP. Paroxysmal atrial fibrillation Peptic ulcer Peripheral neuropathy Pneumonia Renal artery stenosis Rheumatoid arthritis Seasonal allergies Type 2 diabetes mellitus Vitamin B 12 deficiency Vitamin D deficiency Surgical History Surgical History History of appendectomy History of arthroscopy of both shoulders History of cardiac catheterization Angioplasty of a diagonal stenosis 01/2018. Cardiac catheterization 06/2019 showed patent coronary arteries. History of carpal tunnel release History of cataract extraction History of cholecystectomy History of exploratory laparotomy Exploratory laparotomy with segmental mid jejunal small bowel resection with [id number] stapled anti peristaltic jejunal anastomosis 10/19/23 History of foot surgery History of hysterectomy History of phacoemulsification of cataract with intraocular lens implantation Family History Family History Grandparent Diabetes mellitus Father Acute myocardial infarction Diabetes mellitus Hypertension Mother Hypertension Diabetes mellitus Sibling Diabetes mellitus Hypertension Other Family history of cardiovascular disease Family history of
--- NOTE | 2024-06-04 20:34 | ADMGEN ---
This patient, Aracely Spear, was admitted to IMU Room 232-01 on 06/04/24 at 2027. Patient/family oriented to hospital policies and general routines including ID bracelet, bed and alarms, visiting hours, pain management, procedures, bathroom and other care routines, personal items, smoking policy, room service/diet, and visiting hours. Information on how to activate the Rapid Response Team has been discussed. Patient/Family are encouraged to report perceived risks to care and to ask questions if they do not understand what they are told or what they should do.
[2024-06-04 21:25] LABS: Troponin I < 0.012 ng/mL (0.000-0.034)
[2024-06-04] MEDS: APIXABAN 5 MG TABLET PO (22:58)
[2024-06-04] MEDS: ATORVASTATIN 40 MG TABLET PO (22:58)
[2024-06-04] MEDS: oxyCODONE/ACETAMINOPHEN (*CRX) 10-325 MG TABLET 1 TAB PO (23:59)
[2024-06-05] VITALS (19 sets, daily range): BP systolic 80–165; BP diastolic 46–86; PULSE 44–94; RESP 16–20; TEMP 36.4–36.7; O2SAT 83–100
[2024-06-05] MEDS: LEVOTHYROXINE SODIUM 88 MCG TABLET PO (06:04)
[2024-06-05] MEDS: oxyCODONE/ACETAMINOPHEN (*CRX) 10-325 MG TABLET 1 TAB PO ×3 (06:04→20:15)
[2024-06-05] MEDS: SPIRONOLACTONE 12.5 MG TABLET PO (09:13)
[2024-06-05] MEDS: NEBIVOLOL HCL 5 MG TABLET PO (09:13)
[2024-06-05] MEDS: EZETIMIBE 10 MG TABLET PO (09:13)
[2024-06-05] MEDS: SODIUM CHLORIDE 1 GM TABLET PO ×2 (09:13→16:40)
[2024-06-05] MEDS: ASPIRIN 81 MG ENTERIC TABLET PO (09:13)
[2024-06-05] MEDS: CYANOCOBALAMIN 1,000 MCG TABLET 1000 MCG PO (09:14)
[2024-06-05] MEDS: FERROUS SULFATE 325 MG TABLET DR PO (09:14)
[2024-06-05] MEDS: PANTOPRAZOLE 40 MG TABLET PO (09:14)
[2024-06-05] MEDS: DOCUSATE SODIUM 100 MG CAPSULE PO (09:14)
[2024-06-05] MEDS: VALSARTAN 160 MG TABLET 320 MG PO (09:14)
[2024-06-05] MEDS: hydrALAZINE 10 MG TABLET PO ×3 (09:14→16:40)
[2024-06-05] MEDS: MONTELUKAST SODIUM 10 MG TABLET PO (09:14)
[2024-06-05] MEDS: APIXABAN 5 MG TABLET PO ×2 (09:14→20:15)
[2024-06-05] MEDS: MAGNESIUM OXIDE 400 MG TABLET PO (09:14)
[2024-06-05] MEDS: FUROSEMIDE 20 MG TABLET PO (09:15)
[2024-06-05] MEDS: FOLIC ACID 1 MG TABLET 3 MG PO (09:15)
[2024-06-05] MEDS: LINACLOTIDE 145 MCG CAPSULE PO (09:15)
[2024-06-05] MEDS: LORATADINE 10 MG TABLET PO (09:15)
[2024-06-05] MEDS: ACIDOPHILUS/BULGARICUS CHEWABLE TABLET 1 TABLET BY MOUTH (09:16)
[2024-06-05] MEDS: AMIODARONE HCL 200 MG TABLET PO (09:16)
[2024-06-05] MEDS: IRON SUCROSE COMPLEX 400 MG, IRON SUCROSE COMPLEX 100 MG in SODIUM CHLORIDE 0.9% IV 250 ML 78.57 MG IVPB (10:03)
[2024-06-05] MEDS: LIDOCAINE 5% PATCH 3 PATCH TRANSDERM (10:03)
--- NOTE | 2024-06-05 11:19 | PM.CNCAR ---
Assessment and Plan Assessment and plan (1) Stable angina: Code(s): I20.89 - Other forms of angina pectoris Status: Acute (2) Atrial fibrillation: Code(s): I48.91 - Unspecified atrial fibrillation Status: Acute (3) Coronary artery disease: Qualifiers: Coronary Disease-Associated Artery/Lesion type: [place] artery [place] vs. transplanted heart: [place] heart Associated angina: without angina Qualified Code(s): I25.10 - Atherosclerotic heart disease of [place] coronary artery without angina pectoris Code(s): I25.10 - Atherosclerotic heart disease of [place] coronary artery without angina pectoris Status: Acute Plan this is a 79-year-old lady with the a above-described history of coronary disease and paroxysmal AFib. She enters the hospital again with yet another episode of atypical, noncardiac appearing chest pain. Her noninvasive evaluation shows no evidence of ACS. In my opinion she can be discharged and plans are made for ischemia testing with a coronary CTA that will be done at [facility] in the next couple of weeks or so. There is not a cardiac reason she needs to be kept in the hospital. Gumaro Gasca MD [facility] History of Present Illness History of Present Illness Consult date/time: 06/05/24 11:19 Reason For Visit: Chest Pain Narrative: this is an 79-year-old woman who is well known to our service with coronary artery disease and history of paroxysmal atrial fibrillation when seeing because of chest pain. The patient has been hospitalized here innumerable times and her history can be well reviewed by reviewing her chart. In summary she came to the hospital last evening because she says she was outside of her home walking and when she was started to feel unwell as she was walking back to the house with generalized weakness and some mild shortness of breath. She was not really reporting any chest pain per se. She then said says that for a short time she felt diaphoretic when she sat down in a chair when she got back into her home a short time later she felt well. Apparently family members insisted that she come to the hospital with the symptoms and she did last evening and was admitted to the hospital. Since admission her electrocardiogram shows sinus rhythm with a leftward axis and some LVH is unchanged from previous recent ECGs in the record. Her troponin levels x3 sets are normal. She was resting comfortably when I came in the room to see her and has no other complaints at this time. the patient has a history of coronary artery disease with angioplasty of a small diagonal branch of her LAD I believe back in 2018. Since then she has not been found to have another coronary problem despite innumerable hospitalizations with chest pain. She was just discharged from this hospital 1 week ago with symptoms of chest pain of an atypical nature there was a very small troponin rise at that time and ischemic evaluation was recommended and planned for her to have a coronary CTA at [facility] which is scheduled for the middle of June. Stress test were discussed with the patient at that time and she preferred not to proceed in that fashion. In addition to her history of coronary disease she has a history of paroxysmal atrial fibrillation and for that reason is maintained on apixaban and amiodarone. She has been in sinus rhythm and has not had any recent recurrences of her atrial fib. Patient has a history of significantly labile blood pressure and is very concerned about the in the labile nature of her hypertension. Review of Systems Constitutional: Constitutional: Reports lethargy Eyes: Eyes: Reports no additional eye complaints ENT: Reports system reviewed and no additional complaints, except as documented Cardiovascular: Cardiovascular: Reports as per HPI and Reports chest pain Respiratory: Respiratory: Reports as per HPI Gastrointestinal: Gastrointestinal: Reports no additional
[2024-06-05 12:41] LABS: Anion Gap 11 mmol/L (4-12); Blood Urea Nitrogen 13 mg/dL (7-17); Calcium 9.2 mg/dL (8.4-10.2); Carbon Dioxide 27 mmol/L (22-30); Chloride 92 mmol/L (98-107); Estimated Glomerular Filt Rate 60; Glucose 140 mg/dL (65-110); Potassium 3.8 mmol/L (3.4-5.0); Sodium 130 mmol/L (137-145)
--- NOTE | 2024-06-05 13:54 | PM.DS ---
DS: Admitting Diagnosis Discharge Date 06/05/24 Admitting Diagnosis chest pain DS: Discharge Diagnosis Discharge Diagnosis (1) Stable angina: Code(s): I20.89 - Other forms of angina pectoris Status: Acute DS: Summary Hospital Course Hospital Course: 79 y/o F presents here with chest pain with PMH of chronic hyponatremia, CAD, DVT, anxiety/depression, HF with preserved EF, HLD, HTN, hypothyroidism, IBS, ELVIRA noncompliant with CPAP, paroxysmal AFib, rheumatoid arthritis, and diabetes. The patient presents here via EMS from home for further evaluation of intermittent chest pain. She reports over the last 3 days that she has been experiencing a intermittent midsternal chest pain that is accompanying by shortness of breath. She further describes the chest pain as pressure, nonradiating, intermittent, aggravated by exertion, and alleviated by rest. Patient took 324 of ASA and nitro SL yesterday with some resolution of symptoms. She endorses accompanying weakness and diaphoresis today. Denies associated nausea, vomiting, dizziness, or palpitations. Per chart review, patient recently admitted from 05/19/2024 to 05/28/2024 for chest pain and elevated troponin. Elevation in troponin suspected to be secondary to hypertensive urgency. Per cardiology consultation during this visit, patient has history of chest pain with elevated blood pressures. They had plan for Lexiscan if pain was reproducible with activity, however only occurred with high blood pressure. Plan outpatient for a CCTA at [place] (scheduled for 06/29). Patient's presenting blood pressure during this ED evaluation/admission was 131/51. Initial VS at presentation: 97.9? F, HR 60, RR 12, 131/51, and 97% on RA. ED workup showed: WBC 10.5, hemoglobin 9.6 (previously 8.7 on 05/28/2024), INR 1.6, sodium 122 (previously 128 on 05/28/2024), creatinine 0.9 and GFR 60, glucose 132, initial troponin negative. CXR showed a moderate-sized hiatal hernia and cardiomegaly. patient was evaluated by cardiology and recommended discharge, to continue ischemic testing scheduled at [facility] in 2 weeks. Patient not symptomatic at the time of encounter this morning. Discharged to follow up with ischemic testing at [facility] as scheduled. F/u with PCP in 3-5 days, F/u cardiology as instructed, and with ischemic workup at [facility] in 2 weeks. Assessment and plan (1) Stable angina: Code(s): I20.89 - Other forms of angina pectoris Status: Acute Assessment and Plan: - EKG, initial: Sinus bradycardia, rate 58, left axis deviation, incomplete right BBB, left ventricular hypertrophy with ST-T change, cannot rule out septal infarct age indeterminate, baseline artifact. When compared to EKG done on 05/23/2024, incomplete right bundle-branch block now present. - CXR showed a moderate-sized hiatal hernia and cardiomegaly. - Troponin: <0.012, 3 and 6 hour ordered - continue Eliquis and atorvastatin - s/p balloon angioplasty of small-medium sized diagonal branch later underwent a 2nd cardiac catheterization (2018) showed patent diagonal branch. - Lexiscan stress test in 2021 negative. Continue scheduled work up in [facility] in 2 weeks. (2) CHF (congestive heart failure): Qualifiers: Heart failure chronicity: chronic Heart failure type: diastolic Qualified Code(s): I50.32 - Chronic diastolic (congestive) heart failure Code(s): I50.9 - Heart failure, unspecified Status: Chronic Assessment and Plan: - most recent echo (05/19/2024): LV systolic function normal, estimated EF 65-70% and grade 3 diastolic dysfunction. See report for further details. - currently on: Lasix 20 mg daily and spironolactone 12.5 mg daily, continue - daily weights - monitor I&Os - trend renal function (3) Hyponatremia: Code(s): E87.1 - Hypo-osmolality and hyponatremia Status: Chronic Assessment and Plan: - chronic - Na 130 this moring - continue NaCl tablets
--- NOTE | 2024-06-05 17:54 | PC.NURSE ---
Patient c/o lightheadedness, nausea and dizziness. Dr. Fernandez and bobbin presser notified. Patient returned to bed, vitals taken and telemetry applied.
--- NOTE | 2024-06-05 18:03 | PC.NURSE ---
Dr. Fernandez updated on vitals. Stat EKG ordered.
--- NOTE | 2024-06-05 18:04 | PC.NURSE ---
RACHEL Garcia, updated on plan of care via telephone.
--- NOTE | 2024-06-05 18:05 | ECG_ITS ---
Test Date: 2024-06-05 18:14:44 Measurements Intervals [place] Rate: 46 P: 0 NE: 0 QRS: -33 QRSD: 98 T: 70 QT: 506 QTc: 444 Interpretive Statements SINUS BRADYCARDIA LEFT AXIS DEVIATION INCOMPLETE RIGHT BUNDLE BRANCH BLOCK LEFT VENTRICULAR HYPERTROPHY WITH ST-T CHANGE NONSPECIFIC T-WAVE ABNORMALITY- ANTERIOR LEADS BASELINE ARTIFACT- I, II, III, AVR, AVL, AVF, V1-V6 ABNORMAL ECG Compared to ECG 06/04/2024 13:37:46 HEART RATE HAS DECREASED Electronically Signed On 06-06-2024 07:29:28 CDT by Jasvir Steele D.O.
--- NOTE | 2024-06-05 18:20 | PC.NURSE ---
Dr. Fernandez updated on EKG results. New orders received.
[2024-06-05] MEDS: ATORVASTATIN 40 MG TABLET PO (20:15)
[2024-06-05] MEDS: FLUTICASONE/SALMETEROL 115-21 MCG INHALER 1 PUFF 2 PUFF INHALATION (20:24)
[2024-06-06] VITALS (19 sets, daily range): BP systolic 92–141; BP diastolic 38–57; PULSE 53–99; RESP 16–18; TEMP 36.5–36.8; O2SAT 66–100
[2024-06-06] MEDS: oxyCODONE/ACETAMINOPHEN (*CRX) 10-325 MG TABLET 1 TAB PO ×3 (03:42→18:05)
[2024-06-06] MEDS: LEVOTHYROXINE SODIUM 88 MCG TABLET PO (05:45)
[2024-06-06] MEDS: FLUTICASONE/SALMETEROL 115-21 MCG INHALER 1 PUFF 2 PUFF INHALATION ×2 (08:16→21:00)
[2024-06-06] MEDS: NEBIVOLOL HCL 5 MG TABLET PO (08:37)
[2024-06-06] MEDS: SPIRONOLACTONE 12.5 MG TABLET PO (08:37)
[2024-06-06] MEDS: PANTOPRAZOLE 40 MG TABLET PO (08:37)
[2024-06-06] MEDS: EZETIMIBE 10 MG TABLET PO (08:37)
[2024-06-06] MEDS: LINACLOTIDE 145 MCG CAPSULE PO (08:37)
[2024-06-06] MEDS: FOLIC ACID 1 MG TABLET 3 MG PO (08:37)
[2024-06-06] MEDS: VALSARTAN 160 MG TABLET 320 MG PO (08:37)
[2024-06-06] MEDS: ASPIRIN 81 MG ENTERIC TABLET PO (08:37)
[2024-06-06] MEDS: FUROSEMIDE 20 MG TABLET PO (08:38)
[2024-06-06] MEDS: hydrALAZINE 10 MG TABLET PO (08:38)
[2024-06-06] MEDS: LORATADINE 10 MG TABLET PO (08:38)
[2024-06-06] MEDS: ACIDOPHILUS/BULGARICUS CHEWABLE TABLET 1 TABLET BY MOUTH (08:38)
[2024-06-06] MEDS: CYANOCOBALAMIN 1,000 MCG TABLET 1000 MCG PO (08:38)
[2024-06-06] MEDS: APIXABAN 5 MG TABLET PO ×2 (08:38→20:42)
[2024-06-06] MEDS: SODIUM CHLORIDE 1 GM TABLET PO ×2 (08:38→16:55)
[2024-06-06] MEDS: MAGNESIUM OXIDE 400 MG TABLET PO (08:38)
[2024-06-06] MEDS: MONTELUKAST SODIUM 10 MG TABLET PO (08:38)
[2024-06-06] MEDS: DOCUSATE SODIUM 100 MG CAPSULE PO (08:38)
[2024-06-06] MEDS: AMIODARONE HCL 200 MG TABLET PO (08:38)
[2024-06-06] MEDS: FERROUS SULFATE 325 MG TABLET DR PO (08:38)
[2024-06-06] MEDS: ERGOCALCIFEROL 50,000 UNITS CAPSULE 50000 UNITS PO (08:40)
[2024-06-06] MEDS: LIDOCAINE 5% PATCH 3 PATCH TRANSDERM (08:41)
[2024-06-06 10:18] LABS: Basophils Percent Auto 0.4 % (0.2-1.2); Eosinophils Percent Auto 0.2 % (0-4.4); Hematocrit 29.5 % (37.0-47.0); Hemoglobin 9.4 g/dL (12.0-15.0); Immature Granulocyte Absolute 0.06 K/mm3 (0.00-0.031); Immature Granulocyte Percent A 0.6 % (0-0.5); Lymphocytes Absolute Auto 3.28 K/mm3 (0.9-3.2); Lymphocytes Percent Auto 33.7 % (18.3-44.2); Mean Corpuscular HGB Conc 31.9 g/dl (32-36); Mean Corpuscular Hemoglobin 25.8 pg (26-34); Mean Platelet Volume 9.8 fl (7.4-10.4); Monocytes Absolute Auto 0.5 K/mm3 (0.1-0.6); Neutrophils Absolute Auto 5.8 K/mm3 (1.3-6.7); Neutrophils Percent Auto 60.1 % (45.5-73.1); Platelet Count Result 347 k/mm3 (150-375); Red Blood Count 3.64 M/mm3 (4.2-5.4); Red Cell Distribution Width 19.3 % (11.5-14.5); White Blood Count 9.7 K/mm3 (4.5-10.0)
[2024-06-06 10:33] LABS: Alanine Aminotransferase 17 U/L (6-35); Albumin Level 3.4 g/dL (3.5-5.1); Alkaline Phosphatase 64 U/L (38-126); Anion Gap 11 mmol/L (4-12); Aspartate Amino Transferase 33 U/L (14-36); Blood Urea Nitrogen 14 mg/dL (7-17); Calcium 8.7 mg/dL (8.4-10.2); Carbon Dioxide 22 mmol/L (22-30); Chloride 94 mmol/L (98-107); Estimated Glomerular Filt Rate > 60; Glucose 143 mg/dL (65-110); Magnesium 1.4 mg/dL (1.6-2.3); Potassium 3.3 mmol/L (3.4-5.0); Sodium 127 mmol/L (137-145)
[2024-06-06] MEDS: POTASSIUM CHLORIDE 20 MEQ ER TABLET 40 MEQ PO (12:44)
[2024-06-06] MEDS: SODIUM CHLORIDE 0.9% IV 250 ML 100 ML IV CONT (12:44)
--- NOTE | 2024-06-06 16:00 | PM.IMPN ---
Progress Note: A&P Assessment and Plan (1) Stable angina: Code(s): I20.89 - Other forms of angina pectoris Status: Acute Assessment and Plan: - EKG, initial: Sinus bradycardia, rate 58, left axis deviation, incomplete right BBB, left ventricular hypertrophy with ST-T change, cannot rule out septal infarct age indeterminate, baseline artifact. When compared to EKG done on 05/23/2024, incomplete right bundle-branch block now present. - CXR showed a moderate-sized hiatal hernia and cardiomegaly. - Troponin: <0.012, 3 and 6 hour ordered - cardiology consulted, awaiting recs - patient remains adamant that she does not want to undergo a Lexiscan - continue Eliquis and atorvastatin - s/p balloon angioplasty of small-medium sized diagonal branch later underwent a 2nd cardiac catheterization (2018) showed patent diagonal branch. - Lexiscan stress test in 2021 negative. - telemetry monitoring Plan Assessment and plan (1) Stable angina: Code(s): I20.89 - Other forms of angina pectoris Status: Acute Assessment and Plan: - EKG, initial: Sinus bradycardia, rate 58, left axis deviation, incomplete right BBB, left ventricular hypertrophy with ST-T change, cannot rule out septal infarct age indeterminate, baseline artifact. When compared to EKG done on 05/23/2024, incomplete right bundle-branch block now present. - CXR showed a moderate-sized hiatal hernia and cardiomegaly. - Troponin: <0.012, 3 and 6 hour ordered - continue Eliquis and atorvastatin - s/p balloon angioplasty of small-medium sized diagonal branch later underwent a 2nd cardiac catheterization (2018) showed patent diagonal branch. - Lexiscan stress test in 2021 negative. Continue scheduled work up in [facility] in 2 weeks. cardiology input noted (2) CHF (congestive heart failure): Qualifiers: Heart failure chronicity: chronic Heart failure type: diastolic Qualified Code(s): I50.32 - Chronic diastolic (congestive) heart failure Code(s): I50.9 - Heart failure, unspecified Status: Chronic Assessment and Plan: - most recent echo (05/19/2024): LV systolic function normal, estimated EF 65-70% and grade 3 diastolic dysfunction. See report for further details. - currently on: Lasix 20 mg daily and spironolactone 12.5 mg daily, continue - daily weights - monitor I&Os - trend renal function (3) Hyponatremia: Code(s): E87.1 - Hypo-osmolality and hyponatremia Status: Chronic Assessment and Plan: - chronic - Na 127 this morning - continue NaCl tablets b.i.d. f/u with PCP (4) Type 2 diabetes mellitus: Qualifiers: Diabetes mellitus complication status: without complication Diabetes mellitus custodial insulin use: without custodial use Qualified Code(s): E11.9 - Type 2 diabetes mellitus without complications Code(s): E11.9 - Type 2 diabetes mellitus without complications Status: Chronic Assessment and Plan: - initial glucose 132 - A1C 6.7% on 10/20/2023, update - not currently on medications Orthostatic hypotension adjust home meds thus: Decreased Valsartan to 160 from 320mg, discontinued Hydralazine and lasix Continue Bystolic daily Orthostatics and PT/OT (5) Hypertension: Qualifiers: Hypertension type: primary hypertension Qualified Code(s): I10 - Essential (primary) hypertension Code(s): Adjusted home antihypertensives as above Diet: Heart healthy GI Prophylaxis: Not currently indicated DVT Prophylaxis: Continue Eliquis Lines: Peripheral Code Status: Full code Subjective Date/time seen: 06/06/24 16:00 Interval history: Comfortable at bedside discontinued lasix and hydralazine and halved the Valsartan to 160mg daily Review of Systems Review of Systems: All systems reviewed & are unremarkable except as noted in HPI and below Exam Const: General: comfortable and no acute distress O
[2024-06-06] MEDS: ATORVASTATIN 40 MG TABLET PO (20:42)
[2024-06-07] VITALS (15 sets, daily range): BP systolic 134–166; BP diastolic 45–65; PULSE 54–81; RESP 14–20; TEMP 36.4–36.7; O2SAT 98–100
[2024-06-07] MEDS: oxyCODONE/ACETAMINOPHEN (*CRX) 10-325 MG TABLET 1 TAB PO ×4 (00:55→20:14)
[2024-06-07] MEDS: LEVOTHYROXINE SODIUM 88 MCG TABLET PO (05:39)
[2024-06-07 05:46] LABS: Basophils Percent Auto 0.4 % (0.2-1.2); Eosinophils Absolute Auto 0.1 K/mm3 (0-0.3); Eosinophils Percent Auto 0.7 % (0-4.4); Hematocrit 26.8 % (37.0-47.0); Hemoglobin 8.4 g/dL (12.0-15.0); Immature Granulocyte Absolute 0.05 K/mm3 (0.00-0.031); Immature Granulocyte Percent A 0.7 % (0-0.5); Lymphocytes Absolute Auto 2.76 K/mm3 (0.9-3.2); Lymphocytes Percent Auto 36.4 % (18.3-44.2); Mean Corpuscular HGB Conc 31.3 g/dl (32-36); Mean Corpuscular Hemoglobin 25.6 pg (26-34); Mean Corpuscular Volume 81.7 fl (80-100); Mean Platelet Volume 10.1 fl (7.4-10.4); Monocytes Absolute Auto 0.4 K/mm3 (0.1-0.6); Monocytes Percent Auto 5.3 % (2.6-8.5); Neutrophils Absolute Auto 4.3 K/mm3 (1.3-6.7); Neutrophils Percent Auto 56.5 % (45.5-73.1); Platelet Count Result 294 k/mm3 (150-375); Red Blood Count 3.28 M/mm3 (4.2-5.4); Red Cell Distribution Width 19.4 % (11.5-14.5); White Blood Count 7.6 K/mm3 (4.5-10.0)
[2024-06-07 06:04] LABS: Alanine Aminotransferase 15 U/L (6-35); Albumin Level 3.1 g/dL (3.5-5.1); Alkaline Phosphatase 54 U/L (38-126); Anion Gap 10 mmol/L (4-12); Aspartate Amino Transferase 23 U/L (14-36); Bilirubin,Total 0.7 mg/dL (0.2-1.3); Blood Urea Nitrogen 13 mg/dL (7-17); Calcium 8.4 mg/dL (8.4-10.2); Carbon Dioxide 24 mmol/L (22-30); Chloride 94 mmol/L (98-107); Estimated Glomerular Filt Rate > 60; Glucose 161 mg/dL (65-110); Magnesium 1.4 mg/dL (1.6-2.3); Potassium 3.4 mmol/L (3.4-5.0); Sodium 128 mmol/L (137-145)
[2024-06-07] MEDS: LINACLOTIDE 145 MCG CAPSULE PO (07:00)
[2024-06-07] MEDS: FLUTICASONE/SALMETEROL 115-21 MCG INHALER 1 PUFF 2 PUFF INHALATION (08:50)
[2024-06-07] MEDS: DOCUSATE SODIUM 100 MG CAPSULE PO (09:23)
[2024-06-07] MEDS: SPIRONOLACTONE 12.5 MG TABLET PO (09:23)
[2024-06-07] MEDS: FOLIC ACID 1 MG TABLET 3 MG PO (09:23)
[2024-06-07] MEDS: AMIODARONE HCL 200 MG TABLET PO (09:24)
[2024-06-07] MEDS: VALSARTAN 160 MG TABLET PO (09:24)
[2024-06-07] MEDS: NEBIVOLOL HCL 5 MG TABLET PO (09:24)
[2024-06-07] MEDS: MAGNESIUM OXIDE 400 MG TABLET PO (09:24)
[2024-06-07] MEDS: ACIDOPHILUS/BULGARICUS CHEWABLE TABLET 1 TABLET BY MOUTH (09:24)
[2024-06-07] MEDS: EZETIMIBE 10 MG TABLET PO (09:25)
[2024-06-07] MEDS: LORATADINE 10 MG TABLET PO (09:25)
[2024-06-07] MEDS: PANTOPRAZOLE 40 MG TABLET PO (09:25)
[2024-06-07] MEDS: ASPIRIN 81 MG ENTERIC TABLET PO (09:25)
[2024-06-07] MEDS: SODIUM CHLORIDE 1 GM TABLET PO ×2 (09:25→17:42)
[2024-06-07] MEDS: CYANOCOBALAMIN 1,000 MCG TABLET 1000 MCG PO (09:25)
[2024-06-07] MEDS: MONTELUKAST SODIUM 10 MG TABLET PO (09:25)
[2024-06-07] MEDS: APIXABAN 5 MG TABLET PO ×2 (09:25→20:14)
[2024-06-07] MEDS: FERROUS SULFATE 325 MG TABLET DR PO (09:25)
[2024-06-07] MEDS: LIDOCAINE 5% PATCH 3 PATCH TRANSDERM (09:26)
[2024-06-07] MEDS: polyethylene glycoL 3350 17 GM POWD.PACK PO (11:14)
[2024-06-07] MEDS: BISACODYL 10 MG SUPPOSITORY RECTAL (11:14)
--- NOTE | 2024-06-07 13:30 | PM.IMPN ---
Progress Note: A&P Assessment and Plan (1) Stable angina: Code(s): I20.89 - Other forms of angina pectoris Status: Acute Assessment and Plan: - EKG, initial: Sinus bradycardia, rate 58, left axis deviation, incomplete right BBB, left ventricular hypertrophy with ST-T change, cannot rule out septal infarct age indeterminate, baseline artifact. When compared to EKG done on 05/23/2024, incomplete right bundle-branch block now present. - CXR showed a moderate-sized hiatal hernia and cardiomegaly. - Troponin: <0.012, 3 and 6 hour ordered - cardiology consulted, awaiting recs - patient remains adamant that she does not want to undergo a Lexiscan - continue Eliquis and atorvastatin - s/p balloon angioplasty of small-medium sized diagonal branch later underwent a 2nd cardiac catheterization (2018) showed patent diagonal branch. - Lexiscan stress test in 2021 negative. - telemetry monitoring Plan Assessment and plan (1) Stable angina: Code(s): I20.89 - Other forms of angina pectoris Status: Acute Assessment and Plan: - EKG, initial: Sinus bradycardia, rate 58, left axis deviation, incomplete right BBB, left ventricular hypertrophy with ST-T change, cannot rule out septal infarct age indeterminate, baseline artifact. When compared to EKG done on 05/23/2024, incomplete right bundle-branch block now present. - CXR showed a moderate-sized hiatal hernia and cardiomegaly. - Troponin: <0.012, 3 and 6 hour ordered - continue Eliquis and atorvastatin - s/p balloon angioplasty of small-medium sized diagonal branch later underwent a 2nd cardiac catheterization (2018) showed patent diagonal branch. - Lexiscan stress test in 2021 negative. Continue scheduled work up in [facility] in 2 weeks. cardiology input noted (2) CHF (congestive heart failure): Qualifiers: Heart failure chronicity: chronic Heart failure type: diastolic Qualified Code(s): I50.32 - Chronic diastolic (congestive) heart failure Code(s): I50.9 - Heart failure, unspecified Status: Chronic Assessment and Plan: - most recent echo (05/19/2024): LV systolic function normal, estimated EF 65-70% and grade 3 diastolic dysfunction. See report for further details. - currently on: Lasix 20 mg daily and spironolactone 12.5 mg daily, continue - daily weights - monitor I&Os - trend renal function (3) Hyponatremia: Code(s): E87.1 - Hypo-osmolality and hyponatremia Status: Chronic Assessment and Plan: - chronic - Na 128 this morning, patient's baseline - continue NaCl tablets b.i.d. f/u with PCP (4) Type 2 diabetes mellitus: Qualifiers: Diabetes mellitus complication status: without complication Diabetes mellitus senior care insulin use: without extermination supervisor use Qualified Code(s): E11.9 - Type 2 diabetes mellitus without complications Code(s): E11.9 - Type 2 diabetes mellitus without complications Status: Chronic Assessment and Plan: - initial glucose 132 - A1C 6.7% on 10/20/2023, update - not currently on medications Orthostatic hypotension, resolved adjust home meds thus: Decreased Valsartan to 160 from 320mg, discontinued Hydralazine and lasix Continue Bystolic continue adjusting antihypertensives with clinical course daily Orthostatics and PT/OT (5) Hypertension: Qualifiers: Hypertension type: primary hypertension Qualified Code(s): I10 - Essential (primary) hypertension Code(s): Adjusted home antihypertensives as above Iron deficiency anemia R/o GI bleed patient noted hemorrhoids with possible bloody stool prior to admission S/p 1000/1000mg IV iron FOBT pending GI pending continue monitoring H and H Hemorrhoids, r/o GI bleed Continue Miralax Defer Cortisol suppository to GI GI consulted Diet: Heart healthy GI Prophylaxis: Not currently indicated DVT Prophylaxis: Continue Eliquis Lines
[2024-06-07] MEDS: MAGNESIUM SULFATE 3GM/D5W100ML 3 GM/100 ML BAG IVPB (13:40)
[2024-06-07] MEDS: POTASSIUM CHLORIDE 20 MEQ PACKET (FOR LIQUID) PO (13:40)
[2024-06-07 14:27] LABS: IFOB Positive Control Positive; Immunochemical Fecal Occult Bl Positive (N)
[2024-06-07] MEDS: ATORVASTATIN 40 MG TABLET PO (20:14)
[2024-06-08] VITALS (12 sets, daily range): BP systolic 127–158; BP diastolic 42–65; PULSE 48–82; RESP 16–20; TEMP 36.3–36.6; O2SAT 98–100
[2024-06-08] MEDS: LEVOTHYROXINE SODIUM 88 MCG TABLET PO (04:52)
[2024-06-08] MEDS: oxyCODONE/ACETAMINOPHEN (*CRX) 10-325 MG TABLET 1 TAB PO ×4 (04:52→23:13)
[2024-06-08 06:28] LABS: Basophils Percent Auto 0.4 % (0.2-1.2); Eosinophils Absolute Auto 0.1 K/mm3 (0-0.3); Eosinophils Percent Auto 1.2 % (0-4.4); Hematocrit 29.9 % (37.0-47.0); Hemoglobin 9.3 g/dL (12.0-15.0); Immature Granulocyte Absolute 0.02 K/mm3 (0.00-0.031); Immature Granulocyte Percent A 0.3 % (0-0.5); Lymphocytes Absolute Auto 2.93 K/mm3 (0.9-3.2); Lymphocytes Percent Auto 39.5 % (18.3-44.2); Mean Corpuscular HGB Conc 31.1 g/dl (32-36); Mean Corpuscular Hemoglobin 25.7 pg (26-34); Mean Corpuscular Volume 82.6 fl (80-100); Mean Platelet Volume 9.9 fl (7.4-10.4); Monocytes Absolute Auto 0.5 K/mm3 (0.1-0.6); Monocytes Percent Auto 6.1 % (2.6-8.5); Neutrophils Absolute Auto 3.9 K/mm3 (1.3-6.7); Neutrophils Percent Auto 52.5 % (45.5-73.1); Platelet Count Result 314 k/mm3 (150-375); Red Blood Count 3.62 M/mm3 (4.2-5.4); Red Cell Distribution Width 19.8 % (11.5-14.5); White Blood Count 7.4 K/mm3 (4.5-10.0)
[2024-06-08 06:41] LABS: Lactic Acid Reflex 1.9 mmol/L (0.7-2.0)
[2024-06-08 06:43] LABS: Alanine Aminotransferase 16 U/L (6-35); Albumin Level 3.5 g/dL (3.5-5.1); Alkaline Phosphatase 73 U/L (38-126); Anion Gap 8 mmol/L (4-12); Aspartate Amino Transferase 30 U/L (14-36); Bilirubin,Total 1.1 mg/dL (0.2-1.3); Blood Urea Nitrogen 9 mg/dL (7-17); Calcium 8.9 mg/dL (8.4-10.2); Carbon Dioxide 29 mmol/L (22-30); Chloride 95 mmol/L (98-107); Estimated Glomerular Filt Rate > 60; Glucose 91 mg/dL (65-110); Magnesium 1.8 mg/dL (1.6-2.3); Sodium 132 mmol/L (137-145)
[2024-06-08] MEDS: FLUTICASONE/SALMETEROL 115-21 MCG INHALER 1 PUFF 2 PUFF INHALATION ×2 (07:31→20:31)
[2024-06-08] MEDS: LIDOCAINE 5% PATCH 3 PATCH TRANSDERM (08:40)
[2024-06-08] MEDS: NEBIVOLOL HCL 5 MG TABLET PO (08:41)
[2024-06-08] MEDS: VALSARTAN 160 MG TABLET PO (08:41)
[2024-06-08] MEDS: EZETIMIBE 10 MG TABLET PO (08:41)
[2024-06-08] MEDS: ASPIRIN 81 MG ENTERIC TABLET PO (08:41)
[2024-06-08] MEDS: MAGNESIUM OXIDE 400 MG TABLET PO (08:41)
[2024-06-08] MEDS: APIXABAN 5 MG TABLET PO ×2 (08:41→21:35)
[2024-06-08] MEDS: PANTOPRAZOLE 40 MG TABLET PO (08:41)
[2024-06-08] MEDS: DOCUSATE SODIUM 100 MG CAPSULE PO (08:41)
[2024-06-08] MEDS: FERROUS SULFATE 325 MG TABLET DR PO (08:41)
[2024-06-08] MEDS: LORATADINE 10 MG TABLET PO (08:41)
[2024-06-08] MEDS: CYANOCOBALAMIN 1,000 MCG TABLET 1000 MCG PO (08:42)
[2024-06-08] MEDS: ACIDOPHILUS/BULGARICUS CHEWABLE TABLET 1 TABLET BY MOUTH (08:42)
[2024-06-08] MEDS: SPIRONOLACTONE 12.5 MG TABLET PO (08:42)
[2024-06-08] MEDS: SODIUM CHLORIDE 1 GM TABLET PO ×2 (08:42→17:05)
[2024-06-08] MEDS: MONTELUKAST SODIUM 10 MG TABLET PO (08:42)
[2024-06-08] MEDS: polyethylene glycoL 3350 17 GM POWD.PACK PO (08:42)
[2024-06-08] MEDS: FOLIC ACID 1 MG TABLET 3 MG PO (08:42)
[2024-06-08] MEDS: LINACLOTIDE 145 MCG CAPSULE PO (08:45)
[2024-06-08] MEDS: AMIODARONE HCL 200 MG TABLET PO (08:45)
--- NOTE | 2024-06-08 10:28 | WPDGICN ---
Assessment and Plan Assessment and plan (1) FARTUN (iron deficiency anemia): Qualifiers: Iron deficiency anemia type: chronic blood loss Qualified Code(s): D50.0 - Iron deficiency anemia secondary to blood loss (chronic) Code(s): D50.9 - Iron deficiency anemia, unspecified Status: Acute (2) Hemorrhoids: Qualifiers: Hemorrhoid type: other Qualified Code(s): K64.8 - Other hemorrhoids Code(s): K64.9 - Unspecified hemorrhoids Status: Acute (3) Heme positive stool: Code(s): R19.5 - Other fecal abnormalities Status: Acute (4) Gastritis: Qualifiers: Chronicity: chronic Gastritis bleeding: without bleeding Gastritis type: unspecified gastritis Qualified Code(s): K29.50 - Unspecified chronic gastritis without bleeding Code(s): K29.70 - Gastritis, unspecified, without bleeding Status: Acute (5) Hyponatremia: Code(s): E87.1 - Hypo-osmolality and hyponatremia Status: Chronic (6) Decreased appetite: Code(s): R63.0 - Anorexia Status: Acute (7) Early satiety: Code(s): R68.81 - Early satiety Status: Acute Plan 1) Hemorrhoid/ heme-positive stools/constipation: Patient with known internal external hemorrhoids. Last colonoscopy 06/27/2010. Patient noted to have heme-positive stools this admission. Prior to admission patient taking Linzess 145 mcg daily, magnesium supplement, and docusate. On her current bowel regimen she states she typically has a bowel movement every 1-2 days without difficulty. On admission the patient states that she was having some constipation but after passing a large bowel movement she has been feeling better but did have some rectal discomfort. continue current bowel regimen with MiraLax, Linzess and docusate heme-positive stools likely secondary to known hemorrhoids but other GI source of blood loss cannot be excluded at this time hemorrhoid cream ordered 2) Chronic iron deficiency anemia: Patient with chronic anemia since March of 2023. Labs today show HGB 9, HCT 30, MCV 83, platelets 314. Iron 33, TIBC 516 and iron saturation 6%. No signs of active GI bleeding. Last colonoscopy and EGD were in June of 2010. Patient is on oral iron supplement at home. Patient is status post segmental mid jejunal small bowel resection with [id number] stapled anti peristalsis anastomosis performed in October of 2023 secondary to bowel obstruction. Anemia was occurring prior to this bowel resection. patient is scheduled for cardiac CT angiogram at [facility] on June 29 to rule out ischemic cause of her chronic chest pain. cardiology on patient's case who does not field that she is having any acute cardiac issues and feels that chest pain is secondary to known hypertension Patient will need a colonoscopy and EGD but there is no indication for emergent endoscopic evaluation at this time. Will discuss scheduling endoscopic evaluation as outpatient once she has completed her cardiac workup primary care team to continue monitoring H&H and transfuse as needed to keep HGB > 7 consider IV iron replacement 3) GERD/ gastritis/ hiatal hernia/decreased appetite/early satiety: Last EGD June of 2010. Prior to admission patient was on Protonix 40 mg daily and reflux was relatively well controlled except for occasional breakthrough reflux. Recent imaging has shown persistent gastritis and moderate sized hiatal hernia. Patient admits to occasional decreased appetite and early satiety. will treat empirically for possible peptic / Gustavo ulcer with b.i.d. PPI and Carafate pending outpatient EGD if symptoms become more frequent and problematic may consider gastric emptying study inpatient 4. Hyponatremia: Labs today show sodium at 132 and potassium of 4.0. Primary care team to continue monitoring and correct Thank you very much for allowing me share in the care this very nice patient. This report may
--- NOTE | 2024-06-08 17:54 | WPDPN ---
Progress Note: A&P Assessment and Plan (1) Stable angina: Code(s): I20.89 - Other forms of angina pectoris Status: Acute (2) CHF (congestive heart failure): Qualifiers: Heart failure chronicity: chronic Heart failure type: diastolic Qualified Code(s): I50.32 - Chronic diastolic (congestive) heart failure Code(s): I50.9 - Heart failure, unspecified Status: Chronic (3) Chronic hyponatremia: Code(s): E87.1 - Hypo-osmolality and hyponatremia Status: Acute (4) Paroxysmal A-fib: Code(s): I48.0 - Paroxysmal atrial fibrillation Status: Acute (5) Heart failure with preserved ejection fraction: Qualifiers: Heart failure chronicity: chronic Qualified Code(s): I50.32 - Chronic diastolic (congestive) heart failure Code(s): I50.30 - Unspecified diastolic (congestive) heart failure Status: Acute (6) Type 2 diabetes mellitus: Qualifiers: Diabetes mellitus director long term care insulin use: without director long term care use Diabetes mellitus complication status: without complication Qualified Code(s): E11.9 - Type 2 diabetes mellitus without complications Code(s): E11.9 - Type 2 diabetes mellitus without complications Status: Chronic Plan Assessment and plan (1) Stable angina: Code(s): I20.89 - Other forms of angina pectoris Status: Acute Assessment and Plan: - EKG, initial: Sinus bradycardia, rate 58, left axis deviation, incomplete right BBB, left ventricular hypertrophy with ST-T change, cannot rule out septal infarct age indeterminate, baseline artifact. When compared to EKG done on 05/23/2024, incomplete right bundle-branch block now present. - CXR showed a moderate-sized hiatal hernia and cardiomegaly. - Troponin: <0.012, 3 and 6 hour ordered - continue Eliquis and atorvastatin - s/p balloon angioplasty of small-medium sized diagonal branch later underwent a 2nd cardiac catheterization (2018) showed patent diagonal branch. - Lexiscan stress test in 2021 negative. Continue scheduled work up in [facility] in 2 weeks. cardiology input noted (2) CHF (congestive heart failure): Qualifiers: Heart failure chronicity: chronic Heart failure type: diastolic Qualified Code(s): I50.32 - Chronic diastolic (congestive) heart failure Code(s): I50.9 - Heart failure, unspecified Status: Chronic Assessment and Plan: - most recent echo (05/19/2024): LV systolic function normal, estimated EF 65-70% and grade 3 diastolic dysfunction. See report for further details. - currently on: Lasix 20 mg daily and spironolactone 12.5 mg daily, continue - daily weights - monitor I&Os - trend renal function (3) Hyponatremia: Code(s): E87.1 - Hypo-osmolality and hyponatremia Status: Chronic Assessment and Plan: - chronic - Na 132 compare to 123 upon arrival, patient's baseline - continue NaCl tablets b.i.d. f/u with PCP (4) Type 2 diabetes mellitus: Qualifiers: Diabetes mellitus complication status: without complication Diabetes mellitus director long term care insulin use: without director long term care use Qualified Code(s): E11.9 - Type 2 diabetes mellitus without complications Code(s): E11.9 - Type 2 diabetes mellitus without complications Status: Chronic Assessment and Plan: - initial glucose 132 - A1C 6.7% on 10/20/2023, update - not currently on medications Orthostatic hypotension, resolved adjust home meds thus: Decreased Valsartan to 160 from 320mg, discontinued Hydralazine and lasix Continue Bystolic continue adjusting antihypertensives with clinical course daily Orthostatics and PT/OT (5) Hypertension: Qualifiers: Hypertension type: primary hypertension Qualified Code(s): I10 - Essential (primary) hypertension Code(s): Adjusted home antihypertensives as above Iron deficiency anemia R/o GI bleed patient noted hemorrhoids
[2024-06-08] MEDS: ATORVASTATIN 40 MG TABLET PO (21:35)
[2024-06-09] VITALS (14 sets, daily range): BP systolic 118–177; BP diastolic 53–72; PULSE 50–64; RESP 16–20; TEMP 36.1–36.9; O2SAT 98–100
[2024-06-09] MEDS: oxyCODONE/ACETAMINOPHEN (*CRX) 10-325 MG TABLET 1 TAB PO ×4 (05:20→23:59)
[2024-06-09] MEDS: LEVOTHYROXINE SODIUM 88 MCG TABLET PO (05:21)
[2024-06-09] MEDS: FLUTICASONE/SALMETEROL 115-21 MCG INHALER 1 PUFF 2 PUFF INHALATION ×2 (07:11→20:03)
[2024-06-09] MEDS: VALSARTAN 160 MG TABLET PO (08:16)
[2024-06-09] MEDS: LORATADINE 10 MG TABLET PO (08:16)
[2024-06-09] MEDS: NEBIVOLOL HCL 5 MG TABLET PO (08:16)
[2024-06-09] MEDS: EZETIMIBE 10 MG TABLET PO (08:17)
[2024-06-09] MEDS: ACIDOPHILUS/BULGARICUS CHEWABLE TABLET 1 TABLET BY MOUTH (08:17)
[2024-06-09] MEDS: CYANOCOBALAMIN 1,000 MCG TABLET 1000 MCG PO (08:17)
[2024-06-09] MEDS: MONTELUKAST SODIUM 10 MG TABLET PO (08:17)
[2024-06-09] MEDS: LINACLOTIDE 145 MCG CAPSULE PO (08:17)
[2024-06-09] MEDS: SPIRONOLACTONE 12.5 MG TABLET PO (08:17)
[2024-06-09] MEDS: AMIODARONE HCL 200 MG TABLET PO (08:17)
[2024-06-09] MEDS: SODIUM CHLORIDE 1 GM TABLET PO ×2 (08:18→16:17)
[2024-06-09] MEDS: ASPIRIN 81 MG ENTERIC TABLET PO (08:18)
[2024-06-09] MEDS: FERROUS SULFATE 325 MG TABLET DR PO (08:18)
[2024-06-09] MEDS: polyethylene glycoL 3350 17 GM POWD.PACK PO (08:18)
[2024-06-09] MEDS: MAGNESIUM OXIDE 400 MG TABLET PO (08:18)
[2024-06-09] MEDS: PANTOPRAZOLE 40 MG TABLET PO (08:18)
[2024-06-09] MEDS: FOLIC ACID 1 MG TABLET 3 MG PO (08:18)
[2024-06-09] MEDS: DOCUSATE SODIUM 100 MG CAPSULE PO (08:18)
[2024-06-09] MEDS: LIDOCAINE 5% PATCH 3 PATCH TRANSDERM (08:19)
[2024-06-09] MEDS: APIXABAN 5 MG TABLET PO (08:19)
--- NOTE | 2024-06-09 14:54 | WPDGIPROGNO ---
Progress Note: A&P Assessment and Plan (1) Heme positive stool: Code(s): R19.5 - Other fecal abnormalities Status: Acute Assessment and Plan: here with chest pain and high BP once she completes cardiac work up as outpatient then will arrange egd and colonoscopy to investigate anemia, also recently with more gerd symptoms (2) Early satiety: Code(s): R68.81 - Early satiety Status: Acute (3) FARTUN (iron deficiency anemia): Qualifiers: Iron deficiency anemia type: chronic blood loss Qualified Code(s): D50.0 - Iron deficiency anemia secondary to blood loss (chronic) Code(s): D50.9 - Iron deficiency anemia, unspecified Status: Acute (4) Stable angina: Code(s): I20.89 - Other forms of angina pectoris Status: Acute (5) Atrial fibrillation: Code(s): I48.91 - Unspecified atrial fibrillation Status: Acute (6) Hypertension: Qualifiers: Hypertension type: unspecified Qualified Code(s): I10 - Essential (primary) hypertension Code(s): I10 - Essential (primary) hypertension Status: Chronic Subjective Date/time seen: 06/09/24 14:54 Interval history: today again high BP and headache Review of Systems Review of Systems: All systems reviewed & are unremarkable except as noted in HPI and below Exam Const: General: comfortable and no acute distress HENMT: Face/Nose/Sinus: Normal nares present Eyes: General: appearance normal, both eyes and all related structures Neck: Neck: supple Resp: Auscultation: clear to auscultation bilaterally Cardio: Rate: regular rate Rhythm: regular rhythm GI: Inspection: non-distended GI Palp: Yes Soft to palpation and No Tenderness to palpation present (GI) Auscultation: normal bowel sounds Skin: General skin exam: normal color Neuro: Speech: normal speech Motor exam (neuro): 5/5 motor strength present throughout Extrem: General: normal to inspection Psych: Mental Status: mental status grossly normal Objective Data Vital Signs Vital Signs: Vital Signs - 24 hr 06/08/24 16:00 06/08/24 20:34 06/08/24 20:35 Temperature Pulse Rate 82 48 L Respiratory Rate 18 Blood Pressure Pulse Oximetry 98 Oxygen Delivery Room Air 06/08/24 20:00 06/08/24 22:00 06/08/24 20:00 Temperature 97.9 F Pulse Rate 59 L 57 L Respiratory Rate 20 Blood Pressure 138/60 Pulse Oximetry 99 Oxygen Delivery Room Air 06/09/24 00:00 06/09/24 04:00 06/09/24 07:11 Temperature Pulse Rate 61 63 Respiratory Rate Blood Pressure Pulse Oximetry 98 Oxygen Delivery Room Air 06/09/24 07:11 06/09/24 06:00 06/09/24 08:16 Temperature 97.0 F L Pulse Rate 64 62 60 Respiratory Rate 20 20 Blood Pressure 147/67 H Pulse Oximetry 100 Oxygen Delivery 06/09/24 08:17 06/09/24 11:14 06/09/24 11:56 Temperature Pulse Rate 60 Respiratory Rate Blood Pressure 177/53 H Pulse Oximetry Oxygen Delivery Room Air 06/09/24 14:00 Temperature 98.4 F Pulse Rate 53 L Respiratory Rate 16 Blood Pressure 118/57 L Pulse Oximetry 99 Oxygen Delivery Intake/Output Intake/Output: Intake & Output 06/06/24 06/07/24 06/08/24 06/09/24 23:59 23:59 23:59 23:59 Intake Total 1220 2360 2060 1280 Output Total 350 2000 1800 2700 Balance 870 360 260 1420 Meds/Results Medications: Active Medications Generic Name Dose Route Start Last Admin Trade Name Freq PRN Reason Stop Dose Admin Albuterol 2 puff 06/04/24 22:17 Albuterol Sulfate (*Sp) Aerosol 1 Puff INHALATION QID PRN Shortness Of Breath Or Wheezing Amiodarone HCl 200 mg 06/05/24 08:00 06/09/24 08:17 Amiodarone Hcl 200 Mg Tablet PO 200 mg DAILY@0800 [facility] Administration Apixaban 2.5 mg 06/09/24 21:00 Apixaban 2.5 Mg Tablet PO Q12HR [facility] Artificial Tears 1 drop 06/05/24 03:54 Artificial Tears Ophth Soln 15 Ml Bottle EACH EYE QID PRN
--- NOTE | 2024-06-09 18:10 | PM.IMPN ---
Progress Note: A&P Assessment and Plan (1) Stable angina: Code(s): I20.89 - Other forms of angina pectoris Status: Acute (2) CHF (congestive heart failure): Qualifiers: Heart failure chronicity: chronic Heart failure type: diastolic Qualified Code(s): I50.32 - Chronic diastolic (congestive) heart failure Code(s): I50.9 - Heart failure, unspecified Status: Chronic (3) Chronic hyponatremia: Code(s): E87.1 - Hypo-osmolality and hyponatremia Status: Acute (4) Paroxysmal A-fib: Code(s): I48.0 - Paroxysmal atrial fibrillation Status: Acute (5) Heart failure with preserved ejection fraction: Qualifiers: Heart failure chronicity: chronic Qualified Code(s): I50.32 - Chronic diastolic (congestive) heart failure Code(s): I50.30 - Unspecified diastolic (congestive) heart failure Status: Acute (6) Type 2 diabetes mellitus: Qualifiers: Diabetes mellitus complication status: without complication Diabetes mellitus termite control technician insulin use: without senior care use Qualified Code(s): E11.9 - Type 2 diabetes mellitus without complications Code(s): E11.9 - Type 2 diabetes mellitus without complications Status: Chronic Plan Assessment and plan (1) Stable angina: Code(s): I20.89 - Other forms of angina pectoris Status: Acute Assessment and Plan: - EKG, initial: Sinus bradycardia, rate 58, left axis deviation, incomplete right BBB, left ventricular hypertrophy with ST-T change, cannot rule out septal infarct age indeterminate, baseline artifact. When compared to EKG done on 05/23/2024, incomplete right bundle-branch block now present. - CXR showed a moderate-sized hiatal hernia and cardiomegaly. - Troponin: <0.012, 3 and 6 hour ordered - continue Eliquis and atorvastatin - s/p balloon angioplasty of small-medium sized diagonal branch later underwent a 2nd cardiac catheterization (2018) showed patent diagonal branch. - Lexiscan stress test in 2021 negative. Continue scheduled work up in [facility] in 2 weeks. cardiology input noted (2) CHF (congestive heart failure): Qualifiers: Heart failure chronicity: chronic Heart failure type: diastolic Qualified Code(s): I50.32 - Chronic diastolic (congestive) heart failure Code(s): I50.9 - Heart failure, unspecified Status: Chronic Assessment and Plan: - most recent echo (05/19/2024): LV systolic function normal, estimated EF 65-70% and grade 3 diastolic dysfunction. See report for further details. - currently on: Lasix 20 mg daily and spironolactone 12.5 mg daily, continue - daily weights - monitor I&Os - trend renal function (3) Hyponatremia: Code(s): E87.1 - Hypo-osmolality and hyponatremia Status: Chronic Assessment and Plan: - chronic - Na 132 compare to 123 upon arrival, patient's baseline - continue NaCl tablets b.i.d. f/u with PCP (4) Type 2 diabetes mellitus: Qualifiers: Diabetes mellitus complication status: without complication Diabetes mellitus termite control technician insulin use: without termite control technician use Qualified Code(s): E11.9 - Type 2 diabetes mellitus without complications Code(s): E11.9 - Type 2 diabetes mellitus without complications Status: Chronic Assessment and Plan: - initial glucose 132 - A1C 6.7% on 10/20/2023, update - not currently on medications Orthostatic hypotension, resolved adjust home meds thus: Decreased Valsartan to 160 from 320mg, discontinued Hydralazine and lasix Continue Bystolic continue adjusting antihypertensives with clinical course daily Orthostatics and PT/OT (5) Hypertension: Qualifiers: Hypertension type: primary hypertension Qualified Code(s): I10 - Essential (primary) hypertension Code(s): Adjusted home antihypertensives as above Iron deficiency anemia R/o GI bleed patient noted hemorrhoids
[2024-06-09] MEDS: ATORVASTATIN 40 MG TABLET PO (22:02)
[2024-06-09] MEDS: APIXABAN 2.5 MG TABLET PO (22:02)
[2024-06-10] VITALS: PULSE 58
[2024-06-10 04:00] VITALS: PULSE 62
[2024-06-10] MEDS: LEVOTHYROXINE SODIUM 88 MCG TABLET PO (05:28)
[2024-06-10] MEDS: oxyCODONE/ACETAMINOPHEN (*CRX) 10-325 MG TABLET 1 TAB PO ×3 (05:29→17:24)
[2024-06-10 06:00] VITALS: BP 156/84; PULSE 76; RESP 20; TEMP 36.6; O2SAT 99
[2024-06-10] MEDS: FLUTICASONE/SALMETEROL 115-21 MCG INHALER 1 PUFF 2 PUFF INHALATION (07:57)
[2024-06-10 08:05] VITALS: PULSE 69
[2024-06-10 08:07] VITALS: PULSE 68
[2024-06-10] MEDS: SODIUM CHLORIDE 1 GM TABLET PO ×2 (08:07→16:53)
[2024-06-10] MEDS: PANTOPRAZOLE 40 MG TABLET PO (08:07)
[2024-06-10] MEDS: NEBIVOLOL HCL 5 MG TABLET PO (08:07)
[2024-06-10] MEDS: MONTELUKAST SODIUM 10 MG TABLET PO (08:07)
[2024-06-10] MEDS: APIXABAN 2.5 MG TABLET PO (08:07)
[2024-06-10] MEDS: EZETIMIBE 10 MG TABLET PO (08:07)
[2024-06-10] MEDS: LIDOCAINE 5% PATCH 3 PATCH TRANSDERM (08:07)
[2024-06-10] MEDS: ACIDOPHILUS/BULGARICUS CHEWABLE TABLET 1 TABLET BY MOUTH (08:07)
[2024-06-10] MEDS: ASPIRIN 81 MG ENTERIC TABLET PO (08:07)
[2024-06-10] MEDS: MAGNESIUM OXIDE 400 MG TABLET PO (08:07)
[2024-06-10] MEDS: CYANOCOBALAMIN 1,000 MCG TABLET 1000 MCG PO (08:07)
[2024-06-10] MEDS: LINACLOTIDE 145 MCG CAPSULE PO (08:07)
[2024-06-10] MEDS: AMIODARONE HCL 200 MG TABLET PO (08:07)
[2024-06-10] MEDS: FOLIC ACID 1 MG TABLET 3 MG PO (08:08)
[2024-06-10] MEDS: LORATADINE 10 MG TABLET PO (08:08)
[2024-06-10] MEDS: SPIRONOLACTONE 12.5 MG TABLET PO (08:08)
[2024-06-10] MEDS: FERROUS SULFATE 325 MG TABLET DR PO (08:08)
[2024-06-10] MEDS: VALSARTAN 160 MG TABLET PO (08:08)
[2024-06-10] MEDS: DOCUSATE SODIUM 100 MG CAPSULE PO (08:15)
[2024-06-10] MEDS: METHOTREXATE 2.5 MG TAB (*CHEMO) PO (09:40)
--- NOTE | 2024-06-10 09:47 | PM.DS ---
DS: Admitting Diagnosis Discharge Date 06/10/24 Admitting Diagnosis Chest pain DS: Discharge Diagnosis Discharge Diagnosis (1) Stable angina: Code(s): I20.89 - Other forms of angina pectoris Status: Acute (2) CHF (congestive heart failure): Qualifiers: Heart failure chronicity: chronic Heart failure type: diastolic Qualified Code(s): I50.32 - Chronic diastolic (congestive) heart failure Code(s): I50.9 - Heart failure, unspecified Status: Chronic (3) Chronic hyponatremia: Code(s): E87.1 - Hypo-osmolality and hyponatremia Status: Acute (4) Paroxysmal A-fib: Code(s): I48.0 - Paroxysmal atrial fibrillation Status: Acute (5) Heart failure with preserved ejection fraction: Qualifiers: Heart failure chronicity: chronic Qualified Code(s): I50.32 - Chronic diastolic (congestive) heart failure Code(s): I50.30 - Unspecified diastolic (congestive) heart failure Status: Acute (6) Type 2 diabetes mellitus: Qualifiers: Diabetes mellitus termite treater helper insulin use: without retirement use Diabetes mellitus complication status: without complication Qualified Code(s): E11.9 - Type 2 diabetes mellitus without complications Code(s): E11.9 - Type 2 diabetes mellitus without complications Status: Chronic Plan Assessment and plan (1) Stable angina: Code(s): I20.89 - Other forms of angina pectoris Status: Acute Assessment and Plan: - EKG, initial: Sinus bradycardia, rate 58, left axis deviation, incomplete right BBB, left ventricular hypertrophy with ST-T change, cannot rule out septal infarct age indeterminate, baseline artifact. When compared to EKG done on 05/23/2024, incomplete right bundle-branch block now present. - CXR showed a moderate-sized hiatal hernia and cardiomegaly. - Troponin: <0.012, 3 and 6 hour ordered - continue Eliquis and atorvastatin - s/p balloon angioplasty of small-medium sized diagonal branch later underwent a 2nd cardiac catheterization (2018) showed patent diagonal branch. - Lexiscan stress test in 2021 negative. Continue scheduled work up in [facility] in 2 weeks. cardiology input noted (2) CHF (congestive heart failure): Qualifiers: Heart failure chronicity: chronic Heart failure type: diastolic Qualified Code(s): I50.32 - Chronic diastolic (congestive) heart failure Code(s): I50.9 - Heart failure, unspecified Status: Chronic Assessment and Plan: - most recent echo (05/19/2024): LV systolic function normal, estimated EF 65-70% and grade 3 diastolic dysfunction. See report for further details. - currently on: Lasix 20 mg daily and spironolactone 12.5 mg daily, continue - daily weights - monitor I&Os - trend renal function (3) Hyponatremia: Code(s): E87.1 - Hypo-osmolality and hyponatremia Status: Chronic Assessment and Plan: - chronic - Na 132 compare to 123 upon arrival, patient's baseline - continue NaCl tablets b.i.d. f/u with PCP (4) Type 2 diabetes mellitus: Qualifiers: Diabetes mellitus complication status: without complication Diabetes mellitus retirement insulin use: without retirement use Qualified Code(s): E11.9 - Type 2 diabetes mellitus without complications Code(s): E11.9 - Type 2 diabetes mellitus without complications Status: Chronic Assessment and Plan: - initial glucose 132 - A1C 6.7% on 10/20/2023, update - not currently on medications Orthostatic hypotension, resolved adjust home meds thus: Decreased Valsartan to 160 from 320mg, discontinued Hydralazine and lasix Continue Bystolic continue adjusting antihypertensives with clinical course daily Orthostatics and PT/OT (5) Hypertension: Qualifiers: Hypertension type: primary hypertension Qualified Code(s): I10 - Essential (primary) hypertension Code(s): Adjusted home antihyp
[2024-06-10 11:38] LABS: Add Urine Microscopic? NO; Appearance Urine Clear (Clear); Bilirubin Urine Negative (Negative); Blood Urine Negative (Negative); Color Urine Yellow (Yellow); Glucose Urine UA Negative (Negative); Ketones Urine Negative (Negative); Leukocyte Esterase Ur Negative LEU/UL (Negative); Nitrate Urine Negative (Negative); Protein Urine Negative (Negative); Specific Grav Ur 1.013 (1.001-1.035)
[2024-06-10] MEDS: hydrALAZINE 10 MG TABLET PO ×2 (12:49→16:52)
[2024-06-10 14:41] VITALS: BP 143/47; PULSE 56; RESP 17; TEMP 36.4; O2SAT 100
== END 2024-06-10 18:40 | disposition home or self-care (01) | DRG 312 ==
LOC: ANHED 18:53 → ANHIMU 19:32 → ANH3MED 06-06 15:15
PROVIDERS: Emergency Medicine; Student in an Organized Health Care Education/Training Program; Admitting Provider Internal Medicine; Emergency Provider Student in an Organized Health Care Education/Training Program; PCP Family Medicine; Visit Provider Family Medicine
DX: I95.1 Orthostatic hypotension (principal); I48.20 Chronic atrial fibrillation, unspecified; E87.1 Hypo-osmolality and hyponatremia; I50.32 Chronic diastolic (congestive) heart failure; I25.118 Atherosclerotic heart disease of native coronary artery with other forms of angina pectoris; I11.0 Hypertensive heart disease with heart failure; I70.1 Atherosclerosis of renal artery; I65.21 Occlusion and stenosis of right carotid artery; I48.0 Paroxysmal atrial fibrillation; J45.909 Unspecified asthma, uncomplicated; D50.9 Iron deficiency anemia, unspecified; E11.42 Type 2 diabetes mellitus with diabetic polyneuropathy; E03.9 Hypothyroidism, unspecified; E78.5 Hyperlipidemia, unspecified; E53.8 Deficiency of other specified B group vitamins; E55.9 Vitamin D deficiency, unspecified; K21.9 Gastro-esophageal reflux disease without esophagitis; K44.9 Diaphragmatic hernia without obstruction or gangrene; M15.9 Polyosteoarthritis, unspecified; M06.9 Rheumatoid arthritis, unspecified; Z23 Encounter for immunization; G89.4 Chronic pain syndrome; G47.33 Obstructive sleep apnea (adult) (pediatric); F41.9 Anxiety disorder, unspecified; F32.A Depression, unspecified; Z79.01 Long term (current) use of anticoagulants; Z79.891 Long term (current) use of opiate analgesic; Z79.82 Long term (current) use of aspirin; Z91.199 Patient's noncompliance with other medical treatment and regimen due to unspecified reason; Z86.718 Personal history of other venous thrombosis and embolism
CPT/HCPCS: 36415; 71046; 80048; 80053; 80061; 81003; 82043; 82274; 82306; 83605; 83690; 83735; 84439; 84443; 84484; 85025; 85610; 85730; 90471; 90662; 93005; 94640; 96365; 96366; 97161; 97165; 99285; A9270; G0008; G0378; J1756; J3475; J7050

== ENCOUNTER 2024-06-21 13:44 | Emergency (ER) | payer MEDICARE, BC, SELFPAY ==
[2024-06-21] VITALS (15 sets, daily range): BP systolic 111–185; BP diastolic 45–76; PULSE 44–86; RESP 9–16; TEMP 36.8–37.2; O2SAT 96–100
--- NOTE | ~2024-06-21 | XR_ITS ---
CHEST RADIOGRAPH, PA AND LATERAL CLINICAL HISTORY: chest pain, elevated blood pressure . COMPARISON: 06/04/2024 TECHNIQUE: PA and lateral views of the chest. FINDINGS The cardiomediastinal silhouette is enlarged, unchanged. The lungs are clear. Visualized osseous structures and soft tissues are unremarkable. IMPRESSION: Persisting cardiomegaly, without focal infiltrate or effusion. Reviewed, dictated and finalized at location A.
[2024-06-21] MEDS: ASPIRIN 81 MG CHEWABLE TABLET 324 MG PO (14:29)
[2024-06-21 15:34] LABS: Basophils Absolute Auto 0.1 K/mm3 (0.0-0.1); Basophils Percent Auto 0.6 % (0.2-1.2); Eosinophils Percent Auto 0.5 % (0-4.4); Hematocrit 33.7 % (37.0-47.0); Hemoglobin 10.9 g/dL (12.0-15.0); Immature Granulocyte Absolute 0.02 K/mm3 (0.00-0.031); Immature Granulocyte Percent A 0.2 % (0-0.5); Lymphocytes Absolute Auto 2.38 K/mm3 (0.9-3.2); Lymphocytes Percent Auto 29.2 % (18.3-44.2); Mean Corpuscular HGB Conc 32.3 g/dl (32-36); Mean Corpuscular Hemoglobin 27.1 pg (26-34); Mean Corpuscular Volume 83.8 fl (80-100); Mean Platelet Volume 9.6 fl (7.4-10.4); Monocytes Absolute Auto 0.6 K/mm3 (0.1-0.6); Monocytes Percent Auto 7.5 % (2.6-8.5); Neutrophils Absolute Auto 5.1 K/mm3 (1.3-6.7); Platelet Count Result 236 k/mm3 (150-375); Red Blood Count 4.02 M/mm3 (4.2-5.4); Red Cell Distribution Width 21.8 % (11.5-14.5); White Blood Count 8.2 K/mm3 (4.5-10.0)
[2024-06-21 15:44] LABS: INR 1.2; Prothrombin Time 15.5 Seconds (11.1-14.7)
[2024-06-21 15:45] LABS: Partial Thromboplastin Time 33.4 Seconds (22.3-36.8)
[2024-06-21 15:46] LABS: Alanine Aminotransferase 17 U/L (6-35); Albumin Level 4.1 g/dL (3.5-5.1); Alkaline Phosphatase 76 U/L (38-126); Anion Gap 10 mmol/L (4-12); Aspartate Amino Transferase 24 U/L (14-36); Bilirubin,Total 0.9 mg/dL (0.2-1.3); Blood Urea Nitrogen 8 mg/dL (7-17); Calcium 9.2 mg/dL (8.4-10.2); Carbon Dioxide 24 mmol/L (22-30); Chloride 97 mmol/L (98-107); Estimated Glomerular Filt Rate > 60; Glucose 119 mg/dL (65-110); Lipase 19 U/L (23-300); Potassium 4.2 mmol/L (3.4-5.0); Sodium 131 mmol/L (137-145)
[2024-06-21 15:56] LABS: Troponin I < 0.012 ng/mL (0.000-0.034)
--- NOTE | 2024-06-21 17:50 | ED.GENADULT ---
HPI - General Adult General Chief complaint: Recheck/Abnormal Lab/Rx Stated complaint: HTN Time Seen by Provider: 06/21/24 14:47 History of Present Illness HPI narrative: Patient is an 79-year-old female who presents ER with concerns for elevated blood pressure. She has been taking her blood pressure home and she has had consistent blood pressures in the 200 systolic. States he will occasionally get an intermittent twinge in her chest. She has been compliant with home medications. No exertional chest discomfort. No fevers or chills or sweats. Patient is scheduled to have a coronary CTA at [facility] in the next week. Related Data Home Medications Medication Instructions Recorded Confirmed aspirin 81 mg tablet,delayed 81 mg PO DAILY 07/29/19 06/04/24 release (Adult Low Dose Aspirin) cetirizine 10 mg capsule 10 mg PO DAILY 03/15/23 06/04/24 ezetimibe 10 mg tablet 10 mg PO DAILY 03/15/23 06/04/24 folic acid 1 mg tablet 3 mg PO DAILY 03/15/23 06/04/24 albuterol sulfate 90 mcg/actuation 2 puff inhalation QID PRN 06/22/23 06/04/24 aerosol inhaler Shortness Of Breath Or Wheezing methotrexate sodium 2.5 mg tablet 2.5 mg PO WEEKLY 06/22/23 06/04/24 docusate sodium 100 mg capsule 100 mg PO DAILY 02/04/24 06/04/24 (Dulcolax Stool Softener (docusate)) [id number] coag-B. 1 tablet PO DAILY 02/04/24 06/04/24 subtilis-inulin 1 billion cell-1 gram chew tab (Culturelle Probiotic-Multivit) spironolactone 25 mg tablet 12.5 mg PO DAILY 02/04/24 06/04/24 fluticasone 250 mcg-salmeterol 50 1 inh inhalation BID 05/12/24 06/04/24 mcg/dose blistr powdr for inhalation (Advair Diskus) Allergies Allergy/AdvReac Type Severity Reaction Status Date / Time No Known Allergies Allergy Verified 06/04/24 14:00 Review of Systems Review of Systems: All systems reviewed & are unremarkable except as noted in HPI and below Constitutional: Constitutional: Reports no additional constitutional complaints ENT: Reports system reviewed and no additional complaints, except as documented Cardiovascular: Cardiovascular: Reports no additional cardiovascular complaints Respiratory: Respiratory: Reports no additional respiratory complaints Gastrointestinal: Gastrointestinal: Reports no additional gastrointestinal complaints [facility] Past Medical History Medical History Anxiety Asthma Chronic anticoagulation Chronic hyponatremia Chronic pain syndrome Chronic, continuous use of opioids Coronary artery disease Angioplasty of a diagonal lesion in 01/2018. Cardiac catheterization 06/2019 showed patent coronary arteries. Deep venous thrombosis Degenerative joint disease involving multiple joints Depression Folic acid deficiency Gastroesophageal reflux disease Heart failure with preserved ejection fraction Hiatal hernia Hyperlipidemia Hypertension Hypothyroidism Irritable bowel syndrome More than 50 percent stenosis of right internal carotid artery Obstructive sleep apnea Noncompliant with CPAP. Paroxysmal atrial fibrillation Peptic ulcer Peripheral neuropathy Pneumonia Renal artery stenosis Rheumatoid arthritis Seasonal allergies Type 2 diabetes mellitus Vitamin B 12 deficiency Vitamin D deficiency Surgical History Surgical History History of appendectomy History of arthroscopy of both shoulders History of cardiac catheterization Angioplasty of a diagonal stenosis 01/2018. Cardiac catheterization 06/2019 showed patent coronary arteries. History of carpal tunnel release History of cataract extraction History of cholecystectomy History of exploratory laparotomy Exploratory laparotomy with segmental mid jejunal small bowel resection with [id number] stapled anti peristaltic jejunal anastomosis 10/19/23 History of foot surgery History of hysterectomy History of phacoemulsification of cataract with intraocular lens implant
[2024-06-21] MEDS: oxyCODONE/ACETAMINOPHEN (*CRX) 5-325 MG TABLET 1 TABLET PO (17:55)
== END 2024-06-21 21:56 | disposition home or self-care (01) ==
PROVIDERS: Emergency Medicine; Emergency Provider Emergency Medicine; PCP Family Medicine
DX: I10 Essential (primary) hypertension (principal); J45.909 Unspecified asthma, uncomplicated; I25.10 Atherosclerotic heart disease of native coronary artery without angina pectoris; I48.0 Paroxysmal atrial fibrillation; E87.1 Hypo-osmolality and hyponatremia; E53.8 Deficiency of other specified B group vitamins; E55.9 Vitamin D deficiency, unspecified; E03.9 Hypothyroidism, unspecified; G47.33 Obstructive sleep apnea (adult) (pediatric); G89.4 Chronic pain syndrome; K21.9 Gastro-esophageal reflux disease without esophagitis; K44.9 Diaphragmatic hernia without obstruction or gangrene; M06.9 Rheumatoid arthritis, unspecified; M19.90 Unspecified osteoarthritis, unspecified site; F41.9 Anxiety disorder, unspecified; Z86.718 Personal history of other venous thrombosis and embolism; Z86.711 Personal history of pulmonary embolism; Z87.01 Personal history of pneumonia (recurrent); Z90.49 Acquired absence of other specified parts of digestive tract; Z90.710 Acquired absence of both cervix and uterus; Z96.1 Presence of intraocular lens; Z98.49 Cataract extraction status, unspecified eye; Z79.899 Other long term (current) drug therapy; Z79.82 Long term (current) use of aspirin; Z79.01 Long term (current) use of anticoagulants; Z98.61 Coronary angioplasty status
CPT/HCPCS: 36415; 71046; 80053; 83690; 84484; 85025; 85610; 85730; 99284; A9270

== ENCOUNTER 2024-07-25 17:36 | Emergency (ER) | payer MEDICARE, BC, SELFPAY ==
[2024-07-25] VITALS (13 sets, daily range): BP systolic 130–222; BP diastolic 46–74; PULSE 53–66; RESP 9–18; TEMP 36.6–36.8; O2SAT 98–100
--- NOTE | ~2024-07-25 | CT_ITS ---
EXAMINATION: CTA chest abdomen pelvis DATE: 07/25/2024 20:15 INDICATION: dissection protocol . TECHNIQUE: Computed tomography (CT) of the chest, abdomen, and pelvis was performed with 100 mL Omnip aque-350 intravenous contrast. Automated exposure control and iterative reconstruction technique were employed. The dose-length product was 530.01 mGy-cm. COMPARISON: CT abdomen pelvis 12/10/2023. FINDINGS: CHEST: Thoracic aorta: No significant dilation. No dissection. Moderate atherosclerotic calcification. Lung parenchyma and airways: Lungs and airways are clear. Thoracic inlet, axillae and chest wall: No thyroid or soft tissue mass. No axillary lymphadenopathy. Mediastinum: No mass or lymphadenopathy. The pulmonary arteries are well opacified, no central or seg mental embolus detected. Moderate hiatal hernia. Heart and pericardium: Cardiomegaly. No pericardial effusion. Coronary artery calcifications: Moderate. Pleura: No effusion or mass. Thoracic bones: No acute osseous finding in the chest. ABDOMEN/PELVIS: Liver: Simple right lobe cyst. Biliary/Gallbladder: Gallbladder is absent. Mild intra and extrahepatic bile duct dilation, likely se condary to cholecystectomy. Pancreas: No mass or duct dilation. Spleen: Granulomatous calcification. Hypodensity likely representing a cyst/hemangioma. Adrenals:No mass. Kidneys: No suspicious mass, obstructing stone, or hydronephrosis. Bilateral renal cortical thinning. GI tract: No small or large bowel dilation. Appendix not confidently visualized. Mesentery/Peritoneum: No ascites, mass, or free air. Retroperitoneum: No mass Pelvis: Normal urinary bladder. Absent uterus. Bilateral ovaries not visualized. Soft Tissues: Soft tissues and body wall unremarkable. Abdominopelvic bones: No acute osseous finding in the abdomen/pelvis. Grade 1 anterolistheses at L4- 5 and L5-S1. Vasculature: No aneurysmal dilatation of the abdominal aorta. No evidence of abdominal aortic dissec tion. Extensive atherosclerotic calcified plaque. Moderate calcified plaque causing moderate stenosis at the celiac axis origin, SMA origin, and left renal artery origin. No occlusion or extravasation. IMPRESSION: No aortic aneurysm or dissection. No acute process detected in the chest, abdomen, or pelvis. Reviewed, dictated and finalized at location K. L BONDING WORKER
--- NOTE | ~2024-07-25 | CT_ITS ---
EXAMINATION: CT brain wo con DATE: 07/25/2024 20:15 INDICATION: headache, hypertensive . TECHNIQUE: Computed tomography (CT) of the head was performed without intravenous contrast. The mA wa s adjusted according to patient size. Iterative reconstruction technique was employed. The dose-lengt h product was 681.00 mGy-cm. COMPARISON: 05/20/2024. FINDINGS: No acute intracranial hemorrhage or extra-axial fluid collection. No hydrocephalus, mass, or herniation. No acute ischemic infarct. Unremarkable dural venous sinus attenuation. No acute osseous abnormality. The aerated spaces are clear. Mild atrophy and chronic white matter change. Atherosclerotic intracranial calcification. Bilateral l ens replacements. IMPRESSION: No acute intracranial process. Reviewed, dictated and finalized at location K. ENT COORDINATOR
--- NOTE | ~2024-07-25 | XR_ITS ---
EXAMINATION: XR chest 1V portable Exam Date/Time: 07/25/2024 20:15 HEEL SLUGGER HISTORY: SOB; slightly elevated BNP Comparison: 06/21/2024. RESULT: Lines, tubes, and devices: Cholecystectomy clips. Lungs and pleura: Clear. Cardiomediastinal silhouette: Stable cardiomegaly. Moderate hiatal hernia. Other: No acute osseous or upper abdominal finding. IMPRESSION: No acute cardiopulmonary process. Reviewed, dictated and finalized at location K. SLUGGER
--- NOTE | 2024-07-25 17:41 | ECG_ITS ---
Test Date: 2024-07-25 17:48:26 Measurements Intervals [place] Rate: 63 P: -4 NC: 193 QRS: -34 QRSD: 102 T: 13 QT: 423 QTc: 433 Interpretive Statements SINUS RHYTHM LEFT AXIS DEVIATION INCOMPLETE RIGHT BUNDLE BRANCH BLOCK LEFT VENTRICULAR HYPERTROPHY CANNOT R/O SEPTAL INFARCT, AGE INDETERMINATE BASELINE ARTIFACT- I, II, III, AVR, AVL, AVF ABNORMAL ECG Compared to ECG 06/05/2024 18:14:44 HEART RATE HAS INCREASED Electronically Signed On 07-25-2024 18:41:05 [employer]ANCH SUPER[employer] by Jasvir Steele D.O.
[2024-07-25 18:26] LABS: Basophils Absolute Auto 0.1 K/mm3 (0.0-0.1); Basophils Percent Auto 0.7 % (0.2-1.2); Eosinophils Absolute Auto 0.1 K/mm3 (0-0.3); Eosinophils Percent Auto 0.7 % (0-4.4); Hemoglobin 10.5 g/dL (12.0-15.0); Immature Granulocyte Absolute 0.06 K/mm3 (0.00-0.031); Immature Granulocyte Percent A 0.7 % (0-0.5); Lymphocytes Absolute Auto 2.99 K/mm3 (0.9-3.2); Lymphocytes Percent Auto 35.5 % (18.3-44.2); Mean Corpuscular HGB Conc 33.9 g/dl (32-36); Mean Corpuscular Hemoglobin 29.7 pg (26-34); Mean Corpuscular Volume 87.6 fl (80-100); Mean Platelet Volume 9.6 fl (7.4-10.4); Monocytes Absolute Auto 0.5 K/mm3 (0.1-0.6); Monocytes Percent Auto 5.6 % (2.6-8.5); Neutrophils Absolute Auto 4.8 K/mm3 (1.3-6.7); Neutrophils Percent Auto 56.8 % (45.5-73.1); Platelet Count Result 294 k/mm3 (150-375); Red Blood Count 3.54 M/mm3 (4.2-5.4); Red Cell Distribution Width 20.2 % (11.5-14.5); White Blood Count 8.4 K/mm3 (4.5-10.0)
[2024-07-25 18:36] LABS: Alanine Aminotransferase 18 U/L (6-35); Albumin Level 4.2 g/dL (3.5-5.1); Alkaline Phosphatase 72 U/L (38-126); Anion Gap 9 mmol/L (4-12); Aspartate Amino Transferase 29 U/L (14-36); Bilirubin,Total 1.4 mg/dL (0.2-1.3); Blood Urea Nitrogen 10 mg/dL (7-17); Calcium 9.2 mg/dL (8.4-10.2); Carbon Dioxide 23 mmol/L (22-30); Chloride 96 mmol/L (98-107); Estimated Glomerular Filt Rate 60; Glucose 99 mg/dL (65-110); Lipase 18 U/L (23-300); Potassium 4.4 mmol/L (3.4-5.0); Sodium 128 mmol/L (137-145)
--- NOTE | 2024-07-25 19:05 | ED_ITS ---
HPI - Recheck/Abnormal Lab/Rx General Chief Complaint: Recheck/Abnormal Lab/Rx Stated Complaint: ELEVATED BLOOD PRESSURE Time Seen by Provider: 07/25/24 19:02 Source: patient Mode of arrival: ambulatory Limitations: no limitations History of Present Illness HPI narrative: Patient presents with concern for elevated blood pressure and nausea. She also started developing a headache today and she notes that this only happens when her blood pressure is elevated. She has presented previously for elevated blood pressure. It was noted to be elevated at 213 mm Hg at home systolic. She has a history of a light heart attack and recently had stents placed x2. She states she was told that she had significant calcifications that made that procedure difficult - he told me they had to chisel to get to it. She knows that she has carotid artery stenosis bilaterally 73% and 75% and has an upcoming appointment to see a vascular surgeon at [facility] for this. She denies any chest pain at rest, only when she cries due to the pain. She also states that she becomes short of breath at times but this is intermittent and worse with walking and talking. She has had increased urinary output with increased frequency. Patient believes she has previously been worked up for renal artery stenosis. She is on a variety of antihypertensive medications and reports that she takes and routinely without missing doses. She denies any lower extremity edema. Related Data Home Medications Medication Instructions Recorded Confirmed aspirin 81 mg tablet,delayed 81 mg PO DAILY 07/29/19 06/04/24 release (Adult Low Dose Aspirin) cetirizine 10 mg capsule 10 mg PO DAILY 03/15/23 06/04/24 ezetimibe 10 mg tablet 10 mg PO DAILY 03/15/23 06/04/24 folic acid 1 mg tablet 3 mg PO DAILY 03/15/23 06/04/24 albuterol sulfate 90 mcg/actuation 2 puff inhalation QID PRN 06/22/23 06/04/24 aerosol inhaler Shortness Of Breath Or Wheezing methotrexate sodium 2.5 mg tablet 2.5 mg PO WEEKLY 06/22/23 06/04/24 docusate sodium 100 mg capsule 100 mg PO DAILY 02/04/24 06/04/24 (Dulcolax Stool Softener (docusate)) [id number]. coag-B. 1 tablet PO DAILY 02/04/24 06/04/24 subtilis-inulin 1 billion cell-1 gram chew tab (Culturelle Probiotic-Multivit) spironolactone 25 mg tablet 12.5 mg PO DAILY 02/04/24 06/04/24 fluticasone 250 mcg-salmeterol 50 1 inh inhalation BID 05/12/24 06/04/24 mcg/dose blistr powdr for inhalation (Advair Diskus) Allergies Allergy/AdvReac Type Severity Reaction Status Date / Time No Known Allergies Allergy Verified 06/04/24 14:00 [facility] Past Medical History Medical History (Updated 07/26/24 @ 00:00 by Compa Tena) Anxiety Asthma Carotid artery stenosis Chronic anticoagulation Chronic hyponatremia Chronic pain syndrome Chronic, continuous use of opioids Coronary artery disease Angioplasty of a diagonal lesion in 01/2018. Cardiac catheterization 06/2019 showed patent coronary arteries. Deep venous thrombosis Degenerative joint disease involving multiple joints Depression Folic acid deficiency Gastroesophageal reflux disease Heart failure with preserved ejection fraction Hiatal hernia Hyperlipidemia Hypertension Hypothyroidism Irritable bowel syndrome More than 50 percent stenosis of right internal carotid artery Obstructive sleep apnea Noncompliant with CPAP. Paroxysmal atrial fibrillation Peptic ulcer Peripheral neuropathy Pneumonia Renal artery stenosis Rheumatoid arthritis Seasonal allergies Type 2 diabetes mellitus Vitamin B 12 deficiency Vitamin D deficiency Surgical History Surgical History (Updated 07/25/24 @ 19:30 by Smiley Leon MD) H/O heart artery stent x2 History of appendectomy History of arthroscopy of both shoulders History of cardiac catheterization Angioplasty of a diagonal stenosis 01/2018. Cardiac catheterization 06/2019 showed patent coronary arteries. History of carpal tunnel release History of cataract extraction History of cholecystectomy History of exploratory laparotomy Exploratory laparotomy with segmental mid jejunal small bowel resection with [id number] stapled anti peristaltic jejunal anastomosis 10/19/23 History of foot surgery History of hysterectomy History of phacoemulsification of cataract with intraocular lens implantation Family History Family History Grandparent Diabetes mellitus Father Acute myocardial infarction Diabetes mellitus Hypertension Mother Hypertension Diabetes mellitus Sibling Diabetes mellitus Hypertension Other Family history of cardiovascular disease Family history of malignant neoplasm of brain Social History Social History Social History: The patient lives in [place]. Her 2023. 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 Lifelong nonsmoker. No alcohol or illicit substance abuse. Per patient, ILDEFONSO is Wild [employer], friend. Code status: Full code Caffeine-soda Smoking status: Never smoker Second hand tobacco smoke exposure: No Alcohol intake: never Substance use: never Substance use type: does not use Other substance usage details: Medical marijuana occassionally - 1 every 6 months Do You Feel Safe in your Home?: Yes Lack of Transportation: No Lack of Food: Never True Current Housing: I Have Housing Concerned About Future Housing: No Difficulty Paying Gas/Electric Bills: No Difficulty Paying for Meds: No Currently Unemployed: No Education: High School Diploma/GED Difficulty w/ Childcare or Family Care: No Spiritual care concerns: No Agree to blood products: Yes Exam Narrative: GENERAL: Well-appearing, well-nourished, in mild acute distress holding her head HEAD: Normocephalic, atraumatic. EYES: Non injected, non icteric ENT: Nares clear, no rhinorrhea or epistaxis. NECK: Supple. CHEST: Speaking in full sentences. No respiratory distress. HEART: Regular rate and rhythm. ABDOMEN: Soft, nondistended. EXTREMITIES: Normal range of motion. No lower extremity edema. SKIN: Warm, dry, no rash. NEURO: No focal deficits. Alert and oriented x3. Speaks clearly without aphasia or dysarthria. PSYCH: Normal mood and affect. Course Vital Signs Vital signs: Vital Signs Temperature 97.9 F 07/25/24 17:37 Pulse Rate 66 07/25/24 17:37 Respiratory Rate 18 07/25/24 17:37 Blood Pressure 222/64 H 07/25/24 17:37 Pulse Oximetry 100 07/25/24 17:37 Oxygen Delivery Room Air 07/25/24 17:37 Temperature 98.2 F 07/25/24 22:32 Pulse Rate 62 07/25/24 22:32 Respiratory Rate 18 07/25/24 22:32 Blood Pressure 162/58 H 07/25/24 22:32 Pulse Oximetry 99 07/25/24 22:32 Oxygen Delivery Room Air 07/25/24 17:37 MDM - Recheck/Abnormal Lab/Rx MDM Narrative Medical decision making narrative: Patient presents with complaint of increased blood pressure and nausea. In the emergency department she is afebrile with vital signs notable for marked hypertension with systolic blood pressure greater than 200. Patient slight shortness of breath particularly with exertion. Her BNP is elevated greater than 2000 although it has been variable previously, at times higher. History of heart failure with preserved ejection fraction. Patient is reassessed. She states the headache is improving although still present. She notes that she took an aspirin and a nitroglycerin prior to arrival. Will give a headache cocktail of ketorolac, Compazine, and diphenhydramine and reassess. Patient tires the nurse that she would like to decline the Compazine and diphenhydramine because she lives alone. She does have transportation available. She rates her pain 6/10 prior to the ketorolac. She would like to be discharged. This is reasonable. Discharged in stable condition. Prescribed Tylenol. Advised on continuing to hold NSAIDs given that she is on Eliquis. Patient has upcoming appointment with a vascular surgeon at [facility] for known stenosis. Differential Diagnosis Differential diagnosis: Likely other (Hypertensive emergency/urgency, refractory hypertension (due to renal artery stenosis); aortic dissection; TIA/CVA; headache of benign etiology; SAH) Medical Records Attestation: I reviewed the patient's medical records. Medical records narrative: Renal US 05/19/24 IMPRESSION: 1. Normal kidneys without hydronephrosis. No notation of renal artery stenosis. However, this does appear on her H problem list. 05/20/2024 CTA Head/Neck IMPRESSION: 1. Normal brain. 2. No aneurysm or significant intracranial arterial stenosis. 3. 73% stenosis of the proximal right internal carotid artery relative to normal distal artery lumen diameter (NASCET criteria). 4. 75% stenosis of the proximal left internal carotid artery relative to normal distal artery lumen diameter. Lab Data Attestation: I reviewed the patient's lab results. Lab results narrative: Normocytic anemia, stable from previous Hyponatremia, chronic and stable 07/25/24 18:00 07/25/24 18:00 Labs: Lab Results 07/25/24 07/25/24 07/25/24 Range/Units 18:00 18:00 20:38 WBC 8.4 (4.5-10.0) K/mm3 RBC 3.54 L (4.2-5.4) M/mm3 Hgb 10.5 L (12.0-15.0) g/dL Hct 31.0 L (37.0-47.0) % MCV 87.6 (80-100) fl MCH 29.7 (26-34) pg MCHC 33.9 (32-36) g/dl RDW 20.2 H (11.5-14.5) % Plt Count 294 (150-375) k/mm3 MPV 9.6 (7.4-10.4) fl Immature Gran % (Auto) 0.7 H (0-0.5) % Neut % (Auto) 56.8 (45.5-73.1) % Lymph % (Auto) 35.5 (18.3-44.2) % [place] % (Auto) 5.6 (2.6-8.5) % Eos % (Auto) 0.7 (0-4.4) % Baso % (Auto) 0.7 (0.2-1.2) % Lymph # (Auto) 2.99 (0.9-3.2) K/mm3 [place] # (Auto) 0.5 (0.1-0.6) K/mm3 Eos # (Auto) 0.1 (0-0.3) K/mm3 Baso # (Auto) 0.1 (0.0-0.1) K/mm3 Abs Immat Gran (auto) 0.06 H (0.00-0.031) K/mm3 Absolute Neuts (auto) 4.8 (1.3-6.7) K/mm3 Absolute Nucleated RBC 0.000 (0.0-0.012) K/mm3 Nucleated RBC % 0.0 (0.0-0.2) % Sodium 128 L (137-145) mmol/L Potassium 4.4 (3.4-5.0) mmol/L Chloride 96 L (98-107) mmol/L Carbon Dioxide 23 (22-30) mmol/L Anion Gap 9 (4-12) mmol/L BUN 10 (7-17) mg/dL Creatinine 0.90 (0.7-1.0) mg/dL Estim Creat Clear Calc Not Reportable Estimated GFR 60 (59 - ) Glucose 99 (65-110) mg/dL Calcium 9.2 (8.4-10.2) mg/dL Total Bilirubin 1.4 H (0.2-1.3) mg/dL AST 29 (14-36) U/L ALT 18 (6-35) U/L Alkaline Phosphatase 72 (38-126) U/L Troponin I < 0.012 (0.000-0.034) ng/mL NT-Pro-B Natriuret Pep 2190 H Cancelled (19.9-100) pg/mL Total Protein 7.0 (6.3-8.2) g/dL Albumin 4.2 (3.5-5.1) g/dL Lipase 18 L (23-300) U/L Urine Color Yellow (Yellow) Urine Appearance Clear (Clear) Urine pH 7.5 (5.0-9.0) Ur Specific [place] 1.013 (1.001-1.035) Urine Protein Negative (Negative) mg/dL Urine Glucose (UA) Negative (Negative) mg/dL Urine Ketones Negative (Negative) mg/dL Ur Blood (Man) Negative (Negative) Urine Nitrate Negative (Negative) Urine Bilirubin Negative (Negative) Urine Urobilinogen 1.0 (<2.0) mg/dL Leukocyte Esterase Rfl Negative (Negative) TEE/UL Imaging Data Radiologist's impression: IMPRESSION: No acute cardiopulmonary process. IMPRESSION: No aortic aneurysm or dissection. No acute process detected in the chest, abdomen, or pelvis. IMPRESSION: No acute intracranial process. ECG Data EKG #1: Attestation: I personally reviewed and interpreted this ECG as follows: ECG completion date: 07/25/24 ECG completion time: 17:48 Interpretation: Sinus rhythm at a rate of 63 beats per minute. FL interval 183. QRS 1 2. QT/QTC 423/430. Marked Left axis deviation (QRS is positive with dominant R wave in Lead I; QRS is negative with dominant S wave in leads II, III, and aVF). Incomplete RBBB given QRS less [id number]; RSR' M-shaped pattern in V1-V3; wide, slurred S wave in lateral leads (I, aVL and to a lesser extent V5-6). Pre populated algorithm suggests left ventricular hypertrophy S wave depth in V1 + tallest R wave height in V5-6 is <35mm ; but R wave in lead I + S wave in lead III is >25mm thus equivocal. Good R-wave progression across the precordial leads. T-wave inversion in 3 but otherwise upright in normal in contiguous inferior leads 2 and AVF. No other T-wave inversions. Discharge Plan Discharge Clinical Impression: Hypertension, Left axis deviation, Normocytic anemia, Hyponatremia, Headache Patient Disposition: Home, Self-Care Condition: Stable Instructions: Antibiotic Form, Hyponatremia (ED), Acute Headache (ED), Anemia (ED), Hypertension in the Older Adult (ED) Additional Instructions: It is safe for you to take acetaminophen/Tylenol (maximum 4000 mg per day) for headache in the future but, because you are on Eliquis, you are to continue to avoid taking NSAIDs like Motrin, ibuprofen, Advil, Aleve, Naprosyn, etc. Continue to take all of your blood pressure medications as prescribed just as you have been. Follow-up with your care team which includes the upcoming vascular surgery appointment the you have. Return to the emergency department with any new or worsening symptoms. Prescriptions: New acetaminophen 500 mg capsule 1,000 mg PO Q6H PRN (Reason: pain) Qty: 30 0RF No Action Culturelle Probiotic-Multivit 1 billion cell- 1 gram tablet,chewable 1 tablet PO DAILY docusate sodium [Dulcolax Stool Softener (dss)] 100 mg capsule 100 mg PO DAILY spironolactone 25 mg tablet 12.5 mg PO DAILY amiodarone [Pacerone] 200 mg tablet 200 mg PO DAILY Qty: 90 0RF ergocalciferol (vitamin D2) 1,250 mcg (50,000 unit) capsule 1,250 mcg PO WEEKLY Qty: 13 1RF Rx Instructions: friday atorvastatin 40 mg tablet 40 mg PO QHS Qty: 90 3RF levothyroxine 88 mcg tablet 88 mcg PO QAM Qty: 90 1RF nitroglycerin 0.4 mg tablet, sublingual 0.4 mg SUBLINGUAL Q5M PRN (Reason: Chest Pain) Qty: 10 0RF Rx Instructions: max 3 doses sodium chloride 1,000 mg tablet,soluble 1,000 mg PO BID Qty: 180 0RF fluticasone propion-salmeterol [Advair Diskus] 250-50 mcg/dose blister with device 1 inh inhalation BID Linzess 145 mcg capsule 145 mcg PO QAM Qty: 30 1RF meclizine 25 mg tablet 25 mg PO TID PRN (Reason: dizziness) Qty: 30 0RF folic acid 1 mg Tablet 3 mg PO DAILY ezetimibe 10 mg Tablet 10 mg PO DAILY cetirizine 10 mg Capsule 10 mg PO DAILY magnesium oxide 400 mg (241.3 mg magnesium) Tablet 400 mg PO QAM Qty: 30 0RF nebivolol [Bystolic] 5 mg Tablet 5 mg PO DAILY Qty: 30 0RF methotrexate sodium 2.5 mg tablet 2.5 mg PO WEEKLY Rx Instructions: THURSDAYS albuterol sulfate 90 mcg/actuation HFA aerosol inhaler 2 puff inhalation QID PRN (Reason: Shortness Of Breath Or Wheezing) oxycodone-acetaminophen 10-325 mg tablet 1 tablet PO Q6H PRN (Reason: Pain (Scale Score 4-6)) Qty: 1 0RF hydralazine 10 mg Tablet 10 mg PO TID Qty: 90 1RF pantoprazole 40 mg Tablet,Delayed Release (Dr/Ec) 40 mg PO DAILY Qty: 30 0RF ferrous sulfate 325 mg (65 mg iron) Tablet,Delayed Release (Dr/Ec) 325 mg PO DAILY Qty: 30 1RF Eliquis 2.5 mg Tablet 2.5 mg PO Q12HR Qty: 60 1RF polyethylene glycol 3350 [Miralax] 17 gram Powder In Packet 17 g PO QAM PRN (Reason: Constipation) Qty: 30 0RF cephalexin 500 mg Capsule 500 mg PO Q12HR Qty: 9 0RF Preparation H Maximum Strength 0.25-1 % Cream 1 applic RECTAL DAILY Qty: 10 0RF valsartan [Diovan] 160 mg Tablet 160 mg PO DAILY Qty: 30 0RF aspirin [Adult Low Dose Aspirin] 81 mg tablet,delayed release (DR/EC) 81 mg PO DAILY cyanocobalamin (vitamin B-12) [Vitamin B-12] 1,000 mcg tablet 1,000 mcg PO QAM Qty: 90 1RF buspirone 10 mg tablet 10 mg PO BID PRN (Reason: Anxiety) Qty: 180 1RF montelukast 10 mg tablet See Rx Instructions .ROUTE .COMPLEX Qty: 90 1RF Dose Instruction: 10 MG ORALLY DAILY Rx Instructions: 10 MG ORALLY DAILY Follow-up/Referrals: Neli Moura DO [Primary Care Provider] - Time of Disposition: 22:12
[2024-07-25 19:51] LABS: NT Pro B Type Natriuretic Pept 2190 pg/mL (19.9-100); Troponin I < 0.012 ng/mL (0.000-0.034)
[2024-07-25] MEDS: LABETALOL HCL INJ 100 MG/20 ML VIAL 10 MG IV PUSH (20:22)
[2024-07-25] MEDS: MORPHINE SULFATE (*CRX) 4 MG/ML INJ IV PUSH (20:22)
[2024-07-25] MEDS: ACETAMINOPHEN 500 MG TABLET 1000 MG PO (20:23)
[2024-07-25] MEDS: ONDANSETRON INJ 4 MG/2 ML VIAL IV PUSH (20:23)
[2024-07-25 20:49] LABS: Add Urine Microscopic? NO; Appearance Urine Clear (Clear); Bilirubin Urine Negative (Negative); Blood Urine Negative (Negative); Color Urine Yellow (Yellow); Glucose Urine UA Negative (Negative); Ketones Urine Negative (Negative); Leukocyte Esterase Ur Negative LEU/UL (Negative); Nitrate Urine Negative (Negative); Protein Urine Negative (Negative); Specific Grav Ur 1.013 (1.001-1.035); pH Urine 7.5 (5.0-9.0)
[2024-07-25] MEDS: KETOROLAC 15 MG/ML VIAL (*BKC) IV PUSH (21:41)
--- NOTE | 2024-07-25 21:55 | PC.NURSE ---
pt verbalized that she lives by herself and did not feel comfortable taking benadryl medication at this time. this rn explained the risk and benefits of taking medication. pt verbalized again disinterest in taking medication. this rn notified edp dr. muñoz her verbalized okay with pt not taking medication. pt blood pressure wnl at this time. pt remains ao x4. pt states headache is a 6/10 on frontal region of head.
== END 2024-07-25 22:33 | disposition home or self-care (01) ==
PROVIDERS: Emergency Medicine; Emergency Provider Student in an Organized Health Care Education/Training Program; PCP Family Medicine
DX: I10 Essential (primary) hypertension (principal); R51.9 Headache, unspecified; E87.1 Hypo-osmolality and hyponatremia; D64.9 Anemia, unspecified; R94.31 Abnormal electrocardiogram [ECG] [EKG]; R06.02 Shortness of breath; I65.23 Occlusion and stenosis of bilateral carotid arteries; I25.10 Atherosclerotic heart disease of native coronary artery without angina pectoris; I48.0 Paroxysmal atrial fibrillation; J45.909 Unspecified asthma, uncomplicated; E78.1 Pure hyperglyceridemia; E53.8 Deficiency of other specified B group vitamins; E55.9 Vitamin D deficiency, unspecified; E03.9 Hypothyroidism, unspecified; G47.33 Obstructive sleep apnea (adult) (pediatric); G89.4 Chronic pain syndrome; K21.9 Gastro-esophageal reflux disease without esophagitis; K44.9 Diaphragmatic hernia without obstruction or gangrene; M06.9 Rheumatoid arthritis, unspecified; M19.90 Unspecified osteoarthritis, unspecified site; F41.9 Anxiety disorder, unspecified; Z86.718 Personal history of other venous thrombosis and embolism; Z86.711 Personal history of pulmonary embolism; Z87.01 Personal history of pneumonia (recurrent); Z90.49 Acquired absence of other specified parts of digestive tract; Z90.710 Acquired absence of both cervix and uterus; Z96.1 Presence of intraocular lens; Z98.49 Cataract extraction status, unspecified eye; Z79.899 Other long term (current) drug therapy; Z79.82 Long term (current) use of aspirin; Z79.01 Long term (current) use of anticoagulants; Z98.61 Coronary angioplasty status; I45.10 Unspecified right bundle-branch block; I51.7 Cardiomegaly
CPT/HCPCS: 36415; 70450; 71045; 71275; 74174; 80053; 81003; 83690; 83880; 84484; 85025; 93005; 96374; 96375; 99284; A9270; J1885; J2270; J2405; Q9967

== ENCOUNTER 2024-09-12 06:47 | Emergency (ER) | payer MEDICARE, BC, SELFPAY ==
--- NOTE | ~2024-09-12 | CT_ITS ---
EXAMINATION: CT brain wo con DATE: 09/12/2024 07:28 INDICATION: Headache. Hypertension. TECHNIQUE: Computed tomography (CT) of the head was performed without intravenous contrast. Sagittal and coronal reconstructions were performed. The mA was adjusted according to patient size. Iterative reconstruction technique was employed. The dose-length product was 605.33 mGy-cm. COMPARISON: head CT dated 07/25/2024 FINDINGS: No acute intracranial hemorrhage, acute infarction or abnormal extra axial fluid collection. There is mild scattered white matter hypoattenuation consistent with chronic small vessel ischemic disease. V entricles are normal and symmetric. No mass/mass effect. Changes of bilateral intraocular lens replac ement. The orbits, paranasal sinuses and mastoid air cells are normal. IMPRESSION: 1. Mild scattered white matter hypoattenuation consistent with chronic small vessel ischemic disease. No acute intracranial process. Reviewed, dictated and finalized at location A. ON PICTURE SET GRIP IMPRESSION: 1. Mild scattered white matter hypoattenuation consistent with chronic small ve ssel ischemic disease. No acute intracranial process.
[2024-09-12 06:49] VITALS: BP 236/76; PULSE 59; RESP 14; TEMP 36.6; O2SAT 100
--- NOTE | 2024-09-12 06:49 | ECG_ITS ---
Test Date: 2024-09-12 06:51:38 Measurements Intervals [place] Rate: 60 P: 163 NV: 200 QRS: -26 QRSD: 97 T: 13 QT: 430 QTc: 430 Interpretive Statements SINUS RHYTHM BORDERLINE LEFT AXIS DEVIATION [QRS AXIS < -20] VOLTAGE CRITERIA FOR LVH [MEETS CRITERIA IN ONE OF: R(aVL), S(V1), R(V5), R(V5/V6)+S(V1)] NONSPECIFIC T-WAVE ABNORMALITY ABNORMAL ECG Electronically Signed On 09-12-2024 09:04:23 SENIOR MAINTENANCE MECHANIC by Maximino Jenkins M.D.
[2024-09-12 07:42] VITALS: PULSE 53
[2024-09-12] MEDS: LOSARTAN POTASSIUM 50 MG TABLET PO (07:42)
[2024-09-12] MEDS: ACETAMINOPHEN 500 MG TABLET 1000 MG PO (07:42)
[2024-09-12] MEDS: NEBIVOLOL HCL 2.5 MG TABLET PO (07:42)
[2024-09-12 07:46] LABS: Basophils Percent Auto 0.5 % (0.2-1.2); Eosinophils Percent Auto 0.2 % (0-4.4); Hemoglobin 14.3 g/dL (12.0-15.0); Immature Granulocyte Absolute 0.02 K/mm3 (0.00-0.031); Immature Granulocyte Percent A 0.2 % (0-0.5); Lymphocytes Absolute Auto 1.79 K/mm3 (0.9-3.2); Lymphocytes Percent Auto 22.1 % (18.3-44.2); Mean Corpuscular Volume 90.9 fl (80-100); Mean Platelet Volume 9.8 fl (7.4-10.4); Monocytes Absolute Auto 0.3 K/mm3 (0.1-0.6); Monocytes Percent Auto 4.2 % (2.6-8.5); Neutrophils Absolute Auto 5.9 K/mm3 (1.3-6.7); Neutrophils Percent Auto 72.8 % (45.5-73.1); Platelet Count Result 227 k/mm3 (150-375); Red Blood Count 4.62 M/mm3 (4.2-5.4); Red Cell Distribution Width 13.7 % (11.5-14.5); White Blood Count 8.1 K/mm3 (4.5-10.0)
[2024-09-12 08:01] LABS: Alanine Aminotransferase 21 U/L (6-35); Albumin Level 4.6 g/dL (3.5-5.1); Alkaline Phosphatase 81 U/L (38-126); Anion Gap 3 mmol/L (4-12); Aspartate Amino Transferase 35 U/L (14-36); Bilirubin,Total 1.8 mg/dL (0.2-1.3); Blood Urea Nitrogen 11 mg/dL (7-17); Calcium 9.7 mg/dL (8.4-10.2); Carbon Dioxide 27 mmol/L (22-30); Chloride 99 mmol/L (98-107); Estimated Glomerular Filt Rate 60; Glucose 112 mg/dL (65-110); Potassium 4.5 mmol/L (3.4-5.0); Sodium 129 mmol/L (137-145)
--- NOTE | 2024-09-12 08:15 | ED.GENADULT ---
HPI - General Adult General Chief complaint: Recheck/Abnormal Lab/Rx Stated complaint: htn and vargas Time Seen by Provider: 09/12/24 06:52 History of Present Illness HPI narrative: this is an 79-year-old female presenting to the ED with chief complaint headache and elevated blood pressures. Patient says she has had a headache since Friday. It is located on the top of the head and sometimes in the frontal area. It is described as pounding. This is her typical headache. She attributes this to elevated blood pressures Because every time she has a headache she checks her blood pressure is elevated. She does note that when she takes pain medication her blood pressure comes back down. She has no neurologic deficits or trauma. Patient has been seen in our ED for this multiple times. She has not taken her morning antihypertensive is because they are not due until 8:00 a.m. and it is 7:00 a.m.. patient denies fevers chills chest pain difficulty breathing abdominal pain nausea vomiting diarrhea. Related Data Home Medications ?Medication ?Instructions ?Recorded ?Confirmed ?Last Taken ?Type aspirin 81 mg tablet,delayed 81 mg PO DAILY 07/29/19 08/10/24 07/13/22 07:00 History release (Adult Low Dose Aspirin) cetirizine 10 mg capsule 10 mg PO DAILY 03/15/23 08/10/24 Unknown History ezetimibe 10 mg tablet 10 mg PO DAILY 03/15/23 08/10/24 Unknown History folic acid 1 mg tablet 3 mg PO DAILY 03/15/23 08/10/24 Unknown History albuterol sulfate 90 mcg/actuation 2 puff inhalation QID PRN 06/22/23 08/10/24 Unknown History aerosol inhaler Shortness Of Breath Or Wheezing methotrexate sodium 2.5 mg tablet 2.5 mg PO WEEKLY 06/22/23 08/10/24 Unknown History docusate sodium 100 mg capsule 100 mg PO DAILY 02/04/24 08/10/24 Unknown History (Dulcolax Stool Softener (docusate)) [id number]. coag-B. 1 tablet PO DAILY 02/04/24 08/10/24 Unknown History subtilis-inulin 1 billion cell-1 gram chew tab (Culturelle Probiotic-Multivit) spironolactone 25 mg tablet 12.5 mg PO DAILY 02/04/24 08/10/24 Unknown History fluticasone 250 mcg-salmeterol 50 1 inh inhalation BID 05/12/24 08/10/24 Unknown History mcg/dose blistr powdr for inhalation (Advair Diskus) Allergies Allergy/AdvReac Type Severity Reaction Status Date / Time No Known Allergies Allergy Verified 08/10/24 15:30 [facility] Past Medical History Medical History Carotid artery stenosis More than 50 percent stenosis of right internal carotid artery Renal artery stenosis Folic acid deficiency Type 2 diabetes mellitus Vitamin D deficiency Chronic anticoagulation Paroxysmal atrial fibrillation Pneumonia Vitamin B 12 deficiency Heart failure with preserved ejection fraction Hypothyroidism Peptic ulcer Deep venous thrombosis Gastroesophageal reflux disease Chronic hyponatremia Chronic, continuous use of opioids Chronic pain syndrome Obstructive sleep apnea Noncompliant with CPAP. Irritable bowel syndrome Hypertension Coronary artery disease Angioplasty of a diagonal lesion in 01/2018. Cardiac catheterization 06/2019 showed patent coronary arteries. Anxiety Depression Degenerative joint disease involving multiple joints Rheumatoid arthritis Hiatal hernia Asthma Hyperlipidemia Peripheral neuropathy Seasonal allergies Surgical History Surgical History H/O heart artery stent x2 History of exploratory laparotomy Exploratory laparotomy with segmental mid jejunal small bowel resection with [id number] stapled anti peristaltic jejunal anastomosis 10/19/23 History of cataract extraction History of carpal tunnel release History of arthroscopy of both shoulders History of phacoemulsification of cataract with intraocular lens implantation History of cholecystectomy History of appendectomy History of foot surgery History of cardiac catheterization Angioplasty of a diagonal stenosis 01/2018. Cardiac catheterization 06/2019 showed patent coronary arteries. History of hysterectomy Family History Family History Grandparent Diabetes mellitus Father Acute myocardial infarction Diabetes mellitus Hypertension Mother Hypertension Diabetes mellitus Sibling Diabetes mellitus Hypertension Other Family history of cardiovascular disease Family history of malignant neoplasm of brain Social History Social History Social History: The patient lives in [place]. Her 2021. 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 Lifelong nonsmoker. No alcohol or illicit substance abuse. Per patient, POA is Wild Price, friend. Code status: Full code Caffeine-soda Smoking status: Never smoker Second hand tobacco smoke exposure: No Alcohol intake: never Substance use: never Substance use type: does not use Other substance usage details: Medical marijuana occassionally - 1 every 6 months Do You Feel Safe in your Home?: Yes Lack of Transportation: No Lack of Food: Never True Current Housing: I Have Housing Concerned About Future Housing: No Difficulty Paying Gas/Electric Bills: No Difficulty Paying for Meds: No Currently Unemployed: No Education: High School Diploma/GED Difficulty w/ Childcare or Family Care: No Spiritual care concerns: No Agree to blood products: Yes Exam Narrative: APPEARANCE: No apparent distress. Head: atraumatic. EYES: EOMI, NOSE: Atraumatic NECK: Trachea midline RESPIRATORY: No increased rate of breathing Clear to auscultation CARDIOVASCULAR: RRR, ABDOMINAL: Non-distended MUSCULOSKELETAl: No obvious deformities NEURO: Alert. Cranial nerves 2-12 grossly intact. Sensation light touch, motor function cerebellar function intact for 4 extremities. Gait exam was normal. SKIN:: Warm, dry. Normal color PSYCHIATRIC: Normal affect Course Vital Signs Vital signs: Vital Signs Temperature 98 F 09/12/24 06:49 Pulse Rate 59 L 09/12/24 06:49 Respiratory Rate 14 09/12/24 06:49 Blood Pressure 236/76 H 09/12/24 06:49 Pulse Oximetry 100 09/12/24 06:49 Oxygen Delivery Room Air 09/12/24 06:49 Temperature 98 F 09/12/24 06:49 Pulse Rate 53 L 09/12/24 07:42 Respiratory Rate 14 09/12/24 06:49 Blood Pressure 236/76 H 09/12/24 06:49 Pulse Oximetry 100 09/12/24 06:49 Oxygen Delivery Room Air 09/12/24 06:49 Medical Decision Making [facility] Narrative Medical decision making narrative: -Course: 79-year-old female presenting head ache and hypertension. Neurologic exam is normal. CT brain without bleed. patient given or antihypertensives a cocktail with improvement. VARGAS resolved and patients BP is 165/65. patient is comfortable going home and following up with primary care physician. Patient discharged -DDX includes but is not limited to: tension headache, migraine, hypertensive urgency, anxiety -Co-morbidities complicating care: hypertension, anxiety -Social determinants of health: patient lives alone, denies drugs or alcohol -External Chart Review: review previous ER notes for identical presentation -Independent interpretation of studies: labs and imaging reviewed Independent EKG interpretation: Rhythm [sinus], Rate [60], [place]kinson -[normal], MS -[normal], QRS [narrow], QTC [normal], T waves -[negative for concerning inversions], ST Segments - [Negative for concerning elevations] Final interpretations: [Normal Sinus Rhythm] -Shared decision making / Disposition:discharged Vital Signs Vital Signs: Vital Signs Temperature 98 F 09/12/24 06:49 Pulse Rate 59 L 09/12/24 06:49 Respiratory Rate 14 09/12/24 06:49 Blood Pressure 236/76 H 09/12/24 06:49 Pulse Oximetry 100 09/12/24 06:49 Oxygen Delivery Room Air 09/12/24 06:49 Temperature 98 F 09/12/24 06:49 Pulse Rate 53 L 09/12/24 07:42 Respiratory Rate 14 09/12/24 06:49 Blood Pressure 236/76 H 09/12/24 06:49 Pulse Oximetry 100 09/12/24 06:49 Oxygen Delivery Room Air 09/12/24 06:49 Lab Data 09/12/24 07:37 09/12/24 07:37 Labs: Lab Results 09/12/24 Range/Units 07:37 WBC 8.1 (4.5-10.0) K/mm3 RBC 4.62 (4.2-5.4) M/mm3 Hgb 14.3 D (12.0-15.0) g/dL Hct 42.0 (37.0-47.0) % MCV 90.9 (80-100) fl MCH 31.0 (26-34) pg MCHC 34.0 (32-36) g/dl RDW 13.7 (11.5-14.5) % Plt Count 227 (150-375) k/mm3 MPV 9.8 (7.4-10.4) fl Immature Gran % (Auto) 0.2 (0-0.5) % Neut % (Auto) 72.8 (45.5-73.1) % Lymph % (Auto) 22.1 (18.3-44.2) % [place] % (Auto) 4.2 (2.6-8.5) % Eos % (Auto) 0.2 (0-4.4) % Baso % (Auto) 0.5 (0.2-1.2) % Lymph # (Auto) 1.79 (0.9-3.2) K/mm3 [place] # (Auto) 0.3 (0.1-0.6) K/mm3 Eos # (Auto) 0.0 (0-0.3) K/mm3 Baso # (Auto) 0.0 (0.0-0.1) K/mm3 Abs Immat Gran (auto) 0.02 (0.00-0.031) K/mm3 Absolute Neuts (auto) 5.9 (1.3-6.7) K/mm3 Absolute Nucleated RBC 0.000 (0.0-0.012) K/mm3 Nucleated RBC % 0.0 (0.0-0.2) % Sodium 129 L (137-145) mmol/L Potassium 4.5 (3.4-5.0) mmol/L Chloride 99 (98-107) mmol/L Carbon Dioxide 27 (22-30) mmol/L Anion Gap 3 L (4-12) mmol/L BUN 11 (7-17) mg/dL Creatinine 0.90 (0.7-1.0) mg/dL Estim Creat Clear Calc Not Reportable Estimated GFR 60 (59 - ) Glucose 112 H (65-110) mg/dL Calcium 9.7 (8.4-10.2) mg/dL Total Bilirubin 1.8 H (0.2-1.3) mg/dL AST 35 (14-36) U/L ALT 21 (6-35) U/L Alkaline Phosphatase 81 (38-126) U/L Total Protein 8.0 (6.3-8.2) g/dL Albumin 4.6 (3.5-5.1) g/dL Discharge Plan Discharge Clinical Impression: Headache, Hypertension Patient Disposition: Home, Self-Care Condition: Stable Instructions: Antibiotic Form, Acute Headache (DC) Additional Instructions: Please follow-up with your primary care physician for further management. Return if you develop severe pain, or any new or worsening symptoms. Patient Language: Filipino Prescriptions: No Action Culturelle Probiotic-Multivit 1 billion cell- 1 gram tablet,chewable 1 tablet PO DAILY docusate sodium [Dulcolax Stool Softener (dss)] 100 mg capsule 100 mg PO DAILY spironolactone 25 mg tablet 12.5 mg PO DAILY amiodarone [Pacerone] 200 mg tablet 200 mg PO DAILY Qty: 90 0RF ergocalciferol (vitamin D2) 1,250 mcg (50,000 unit) capsule 1,250 mcg PO WEEKLY Qty: 13 1RF Rx Instructions: friday atorvastatin 40 mg tablet 40 mg PO QHS Qty: 90 3RF levothyroxine 88 mcg tablet 88 mcg PO QAM Qty: 90 1RF nitroglycerin 0.4 mg tablet, sublingual 0.4 mg SUBLINGUAL Q5M PRN (Reason: Chest Pain) Qty: 10 0RF Rx Instructions: max 3 doses fluticasone propion-salmeterol [Advair Diskus] 250-50 mcg/dose blister with device 1 inh inhalation BID Linzess 145 mcg capsule 145 mcg PO QAM Qty: 30 1RF meclizine 25 mg tablet 25 mg PO TID PRN (Reason: dizziness) Qty: 30 0RF folic acid 1 mg Tablet 3 mg PO DAILY ezetimibe 10 mg Tablet 10 mg PO DAILY cetirizine 10 mg Capsule 10 mg PO DAILY magnesium oxide 400 mg (241.3 mg magnesium) Tablet 400 mg PO QAM Qty: 30 0RF nebivolol [Bystolic] 5 mg Tablet 5 mg PO DAILY Qty: 30 0RF methotrexate sodium 2.5 mg tablet 2.5 mg PO WEEKLY Rx Instructions: THURSDAYS albuterol sulfate 90 mcg/actuation HFA aerosol inhaler 2 puff inhalation QID PRN (Reason: Shortness Of Breath Or Wheezing) oxycodone-acetaminophen 10-325 mg tablet 1 tablet PO Q6H PRN (Reason: Pain (Scale Score 4-6)) Qty: 1 0RF hydralazine 10 mg Tablet 10 mg PO TID Qty: 90 1RF pantoprazole 40 mg Tablet,Delayed Release (Dr/Ec) 40 mg PO DAILY Qty: 30 0RF ferrous sulfate 325 mg (65 mg iron) Tablet,Delayed Release (Dr/Ec) 325 mg PO DAILY Qty: 30 1RF Eliquis 2.5 mg Tablet 2.5 mg PO Q12HR Qty: 60 1RF polyethylene glycol 3350 [Miralax] 17 gram Powder In Packet 17 g PO QAM PRN (Reason: Constipation) Qty: 30 0RF cephalexin 500 mg Capsule 500 mg PO Q12HR Qty: 9 0RF Preparation H Maximum Strength 0.25-1 % Cream 1 applic RECTAL DAILY Qty: 10 0RF acetaminophen 500 mg capsule 1,000 mg PO Q6H PRN (Reason: pain) Qty: 30 0RF aspirin [Adult Low Dose Aspirin] 81 mg tablet,delayed release (DR/EC) 81 mg PO DAILY cyanocobalamin (vitamin B-12) [Vitamin B-12] 1,000 mcg tablet 1,000 mcg PO QAM Qty: 90 1RF buspirone 10 mg tablet 10 mg PO BID PRN (Reason: Anxiety) Qty: 180 1RF montelukast 10 mg tablet See Rx Instructions .ROUTE .COMPLEX Qty: 90 1RF Dose Instruction: 10 MG ORALLY DAILY Rx Instructions: 10 MG ORALLY DAILY losartan 50 mg tablet 50 mg PO DAILY Qty: 90 1RF sodium chloride 1,000 mg tablet,soluble 1,000 mg PO BID Qty: 180 1RF Follow-up/Referrals: Neli Moura DO [Primary Care Provider] -
[2024-09-12] MEDS: SPIRONOLACTONE 25 MG TABLET PO (08:24)
[2024-09-12] MEDS: PROCHLORPERAZINE EDISYLATE 10 MG/2 ML VIAL IM (08:25)
[2024-09-12] MEDS: diphenhydrAMINE HCl INJ 50 MG/ML VIAL 25 MG IV PUSH (08:26)
[2024-09-12 10:01] VITALS: BP 161/65; PULSE 50; RESP 18; TEMP 36.5; O2SAT 96
== END 2024-09-12 10:05 | disposition home or self-care (01) ==
PROVIDERS: Emergency Provider Emergency Medicine; PCP Family Medicine
DX: R51.9 Headache, unspecified (principal); I11.0 Hypertensive heart disease with heart failure; Z79.82 Long term (current) use of aspirin; E11.9 Type 2 diabetes mellitus without complications; Z79.84 Long term (current) use of oral hypoglycemic drugs; I48.0 Paroxysmal atrial fibrillation; E55.9 Vitamin D deficiency, unspecified; Z79.01 Long term (current) use of anticoagulants; E53.8 Deficiency of other specified B group vitamins; E03.9 Hypothyroidism, unspecified; I50.9 Heart failure, unspecified; Z86.718 Personal history of other venous thrombosis and embolism; I25.10 Atherosclerotic heart disease of native coronary artery without angina pectoris; F41.8 Other specified anxiety disorders; J45.909 Unspecified asthma, uncomplicated; E78.5 Hyperlipidemia, unspecified
CPT/HCPCS: 36415; 70450; 80053; 85025; 93005; 96372; 96374; 99284; A9270; J0780; J1200

== ENCOUNTER 2024-11-04 22:25 | Emergency (ER) | payer MEDICARE, BC, SELFPAY ==
--- NOTE | ~2024-11-04 | CT_ITS ---
Clinical Indication: Abdominal pain radiating to back CT Scan of the Chest, Abdomen, and Pelvis with Contrast: Technique: Contiguous sections were acquired throughout the chest, abdomen, and pelvis after intraven ous administration of 100 cc of Omnipaque 350. Dose reduction technique was used on this scan by sudheer henderson automated exposure control and iterative reconstruction technique. The dose-length product (DL P) was 354.94 mGy-cm. Findings: There is no evidence of any significant mediastinal, hilar or axillary lymphadenopathy. The mediastin al soft tissues appear normal. No pulmonary embolus. No aortic aneurysm or dissection. Moderate hiata l hernia present. There is no evidence of pleural or pericardial effusion. The lungs are clear. No pulmonary nodules or infiltrates are noted. Cholecystectomy clips are present. Probable mild diffuse hepatic steatosis. Hepatic cysts are present . Small splenic cyst present. The pancreas, adrenals and kidneys are within normal limits. There are atherosclerotic calcifications of the aorta and iliac vessels. No lymphadenopathy. Questionable mild wall thickening gastric antrum/duodenum. Remaining small and large bowel is essenti ally unremarkable. Suggestion of wall thickening and possible thrombosis involving a left-sided branc h of the SMV, no distinct bowel wall thickening evident. Urinary bladder is unremarkable. No pelvic mass seen. Status post hysterectomy. No ascites. Impression: Questionable mild wall thickening gastric antrum/duodenum. Correlate for gastritis/duodenitis or pept ic ulcer disease. No free air or abscess. Possible wall thickening or thrombus of the left-sided branch of the SMV. No distinct bowel wall thic kening in this region evident. Reviewed, dictated and finalized at [facility]. MOMETER TESTER Impression: Questionable mild wall thickening gastric antrum/duodenum. Correlate for gastri tis/duodenitis or peptic ulcer disease. No free air or abscess. Possible wall thickening or thrombus of the left-sided branch of the SMV. No di stinct bowel wall thickening in this region evident.
--- NOTE | ~2024-11-04 | XR_ITS ---
Upright portable view of the abdomen Clinical history: NG tube placement Findings: NG tube is in satisfactory position. Bowel gas pattern is somewhat nonspecific. No free air evident. No abnormal mass lesion or calcification is seen. Osseous structures are intact. Impression: NG tube in satisfactory position. Reviewed, dictated and finalized at [facility]. NICAL SERVICE REP Impression: NG tube in satisfactory position.
--- OUTSIDE RECORDS SUMMARY | 2024-11-04 22:27 | XMS_ITS | Clinical Summary ---
Author Organization [facility] Address [address] [place] [address] Care Team Providers Care Footwear Sales Coordinator Name Role Phone Neli Moura DO Primary Care Provider + Allergies No known active allergies Medications busPIRone (BUSPAR) 10 mg tabletIndicatio ns:Generalized Anxiety Disorder Take 1 tablet (10 mg total) by mouth 2 (two) times a day Active levothyroxine (SYNTHROID, LEVOTHROID) 88 mcg tabletIndicatio ns:hypothyroidi sm Take 1 tablet (88 mcg total) by mouth pulp press tender before breakfast Active aspirin 81 mg tabletIndicatio ns:OTC / Heart health Take 1 tablet (81 mg total) by mouth every morning Active ADVAIR DISKUS 250-50 mcg/dose diskus inhalerIndicati ons:Maintenance Therapy for Asthma Inhale 1 puff nightly 5 018 Active montelukast (SINGULAIR) 10 mg tabletIndicatio ns:Maintenance Therapy for Asthma Take 1 tablet (10 mg total) by mouth daily 019 Active albuterol sulfate 90 mcg/actuation aerosol powdr breath activated Inhale 2 puffs 4 (four) times a day as needed for wheezing or shortness of breath Active fluticasone propionate (FLONASE) 50 mcg/actuation nasal spray Administer 1 spray into each nostril 2 (two) times a day as needed for rhinitis or allergies Active cyanocobalamin (Vitamin B-12) 1,000 mcg tabletIndicatio ns:Prevention of Vitamin B12 Deficiency,OTC / Take 1 tablet (1,000 mcg total) by mouth every morning Active amiodarone (PACERONE) 200 mg tabletIndicatio ns:PAF (paroxysmal atrial fibrillation) (CMS/HCC) ([facility]) Take 1 tablet (200 mg total) by mouth daily 90 tablet 3 024 Active Additional Information Patient taking differently:200 mg oralEvery morning, Indications: Cardioversion of Atrial Fibrillation, Informant: Self, Reported on 09/17/2024 magnesium oxide (MAG-OX) 400 mg (241.3 mg elemental magnesium) tabletIndicatio ns:Paroxysmal atrial fibrillation (CMS/HCC) ([facility]) TAKE 1 TABLET (400 MG TOTAL) BY MOUTH EVERY MORNING 90 tablet 3 024 Active folic acid (FOLVITE) 1 mg tabletIndicatio ns:Rheumatoid arthritis involving multiple sites (CMS/HCC) ([facility]) Take 3 tablets (3,000 mcg total) by mouth daily 270 tablet 1 Active Additional Information Patient taking differently:3,000 mcg oralEvery morning, Indications: Folate Deficiency, Informant: Self, Reported on 09/17/2024 ferrous sulfate 325 mg (65 mg of elemental iron) tabletIndicatio ns:Iron Deficiency Anemia,OTC Take 1 tablet (325 mg total) by mouth every morning Active Linzess 145 mcg capsuleIndicati ons:functional constipation Take 1 capsule (145 mcg total) by mouth every morning Active pantoprazole DR (PROTONIX) 40 mg EC tablet Take 1 tablet (40 mg total) by mouth every morning 024 Active polyethylene glycol (MIRALAX) 17 gram packetIndicatio ns:constipation Take 1 packet (17 g total) by mouth daily Active atorvastatin (LIPITOR) 40 mg tabletIndicatio ns:hyperlipidem ia Take 1 tablet (40 mg total) by mouth nightly Active ezetimibe (ZETIA) 10 mg tablet Take 1 tablet (10 mg total) by mouth nightly Active meclizine (ANTIVERT) 25 mg tablet Take 1 tablet (25 mg total) by mouth 3 (three) times a day as needed for dizziness or nausea for up to 45 doses 45 tablet 024 Active nebivoloL (BYSTOLIC) 2.5 mg tablet Take 1 tablet (2.5 mg total) by mouth daily 30 tablet 11 2024 Active Additional Information Patient taking differently:2.5 mg oralEvery morning, Indications: hypertension, Informant: Self, Reported on 09/17/2024 nitroglycerin (NITROSTAT) 0.[address] 1 tablet (0.4 mg total) under the tongue every 5 (five) minutes as needed for chest pain 90 tablet 1 2024 Active sodium chloride 1,000 mg tablet Take 1 tablet (1 g total) by mouth 2 (two) times a day 180 tablet 3 Active losartan (COZAAR) 50 mg tablet Take 1 tablet (50 mg total) by mouth daily 30 tablet 11 2024 Active Additional Information Patient taking differently:50 mg oralEvery morning, Indications: hypertension, Informant: Self, Reported on 09/17/2024 artificial tears, dextran-hyprome llose-glycerin, (GENTEAL TEARS MODERATE) 0.1-0.3-0.2 % Administer 1 drop into both eyes 4 (four) times a day as needed (dry eyes) 30 mL 1 Active calcium carbonate (TUMS) 500 mg (200 mg elemental calcium) chewable tablet Take 1 tablet/chew tab (500 mg total) by mouth 3 (three) times a day as needed for indigestion or heartburn for up to 80 doses 40 tablet/chew tab 1 Active miconazole (SECURA THICK) 2 % cream Apply topically 2 (two) times a day 28.35 g 1 Active lidocaine (LIDODERM) 5 % Place 1 patch on the skin daily Remove & discard patch within 12 hours or as directed by . 30 patch 1 Active oxyCODONE-aceta minophen (PERCOCET) 10-325 mg per tabletIndicatio ns:Pain Take 1 tablet by mouth every 6 (six) hours as needed for pain for up to 35 doses 35 tablet Active acetaminophen (TYLENOL) 325 mg suppository Insert 1 suppository (325 mg total) into the rectum every 4 (four) hours as needed Active Eliquis 2.5 mg tablet Take 1 tablet (2.5 mg total) by mouth every 12 (twelve) hours 60 tablet 11 025 2025 Active guanFACINE (TENEX) 1 mg tablet Take 1 tablet (1 mg total) by mouth nightly 30 tablet 11 025 2025 Active enoxaparin (LOVENOX) 60 mg/0.6 mL syringe Inject 0.6 mL (60 mg total) under the skin every 12 (twelve) hours WILL HOLD ELIQUIS WHILE ON LOVENOX - LAST DOSE OF ELIQUIS IS 10/08. WILL TAKE LOVENOX 10/09-10/11. NO ELIQUIS OR LOVENOX ON 10/12 3.6 mL 025 Active spironolactone (ALDACTONE) 25 mg tabletIndicatio ns:hypertension Take 0.5 tablets (12.5 mg total) by mouth every morning 45 tablet 2 025 Active hydrALAZINE (APRESOLINE) 25 mg tabletIndicatio ns:hypertension Take 1 tablet (25 mg total) by mouth 3 (three) times a day 90 tablet 025 2024 Active spironolactone (ALDACTONE) 25 mg tablet Take 0.5 tablets (12.5 mg total) by mouth daily 15 tablet 11 024 2024 Discontinued enoxaparin (LOVENOX) 60 mg/0.6 mL syringe Inject 0.6 mL (60 mg total) under the skin every 12 (twelve) hours WILL HOLD ELIQUIS WHILE ON LOVENOX - LAST DOSE OF ELIQUIS IS 10/08. WILL TAKE LOVENOX 10/09-10/11. NO ELIQUIS OR LOVENOX ON 10/12 3.6 mL 025 2024 Discontinued(R eorder) hydrALAZINE (APRESOLINE) 25 mg tabletIndicatio ns:hypertension Take 1 tablet (25 mg total) by mouth 3 (three) times a day 90 tablet 025 2024 Discontinued(R eorder) Active Problems Problem Noted Date Diagnosed Date Diastolic dysfunction 09/28/2024 Assessment & Plan (09/28/2024 9:18 AM PRODUCT ACCOUNTANT): - Diastolic dysfunction w/o CHF. Diastolic function: stage I - impaired relaxation LVEF: >70% Asthma 09/28/2024 Assessment & Plan (09/28/2024 9:29 AM PRODUCT ACCOUNTANT): - Continue home albueterol and advair - IS - OOB when able Carotid stenosis 08/16/2024 Assessment & Plan (09/28/2024 9:20 AM PRODUCT ACCOUNTANT): 09/28: s/p Left carotid endarterectomy - OU, Q2 hr NM checks - SBP goal 110-150 - Bedrest overnight, OOB POD #1 - Clear liquid diet, advance in am - DC Toro in am - Pain control - Monitor incisions for bleeding/hematoma - IS PAF (paroxysmal atrial fibrillation) (CMS/[facility]) 0 05/12/2023 Assessment & Plan (09/28/2024 9:20 AM PRODUCT ACCOUNTANT): Home regimen: amiodarone, Eliquis - continue amiodarone - Monitor on OU 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 Discussed R/B/A of anti-VEGF but given severely diminished visual acuity (VA) and chronicity of at least 6 months , patient wishes to defer. Monitor Intermediate stage dry age-r elated macular degeneration of left eye 03/05/2022 Assessment & Plan (03/05/2022 11:09 AM CDT): Dry with good visual acuity (VA). Follow up 8 weeks Monocular precautions Start AREDS2 Dry eye syndrome of both eyes 03/05/2022 Macular degeneration of both eyes 01/28/2022 Hyponatremia 05/28/2021 Hypertensive heart disease with heart failure (C MS/HCC) 05/28/2021 Pigmentary glaucoma of both eyes, 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 Hypertension 03/22/2019 Assessment & Plan (09/28/2024 9:22 AM PRODUCT ACCOUNTANT): - Home regimen: hydralazine, losartan, nebivolol, spirnolactone - VS Q2 hrs and PRN - OU - resume home meds as able Rheumatoid arthritis involving multiple sites (C MS/HCC) 10/14/2017 History of carotid artery disease 10/14/2017 Dyspnea on exertion 09/23/2017 Assessment & Plan (02/16/2018 9:19 AM CDT): She has underlying asthma. Multifactorial. Mild pulmonary hypertension as well. Assessment & Plan (12/29/2017 1:10 PM CDT): Continues to have dyspnea on exertion. Very strong family history for CAD. Despite negative stress test I am concerned about underlying CAD and therefore I will schedule her to undergo cardiac catheterization to rule out CAD. Benefits and risks discussed with the patient and she agrees. Assessment & Plan (09/23/2017 1:48 PM PRODUCT ACCOUNTANT): Negative Lexiscan nuclear stress test back in August 2017. She does have strong family history for coronary artery disease. Will re-evaluate next visit. Evidence of type 1 diastolic dysfunction on echocardiogram. Mixed hyperlipidemia 09/23/2017 Assessment & Plan (02/16/2018 9:11 AM CDT): Continue Lipitor. Assessment & Plan (12/29/2017 1:10 PM CDT): Continue Lipitor 40 mg p.o. daily. Assessment & Plan (09/23/2017 1:49 PM PRODUCT ACCOUNTANT): L continue Lipitor. Arthralgia of ankle 07/04/2017 Sprain of calcaneofibular ligament of ankle 05/16 Pain of foot 03/14/2017 Hammer toe 05/31/2016 Ulcer of toe (CMS/HCC) 05/31/2016 Diabetic peripheral neuropat hy associated with type 2 diabetes mellitus ([facility]/HCC) 05/31/2016 Keratoconjunctivitis sicca 10/17/2015 Bony pelvic pain 01/02/2015 Abnormal mammogram 09/30/2014 Knee pain 01/14/2014 Pigmentary degeneration of iris 12/09/2011 Diabetes mellitus 07/25/2011 Assessment & Plan (09/28/2024 9:20 AM PRODUCT ACCOUNTANT): HgbA1c 5.6, not on any home medications - Monitor glucose with daily labs - Carb consistent diet when eating Osteoarthritis 05/13/2011 Trochanteric bursitis 01/12/2011 Overview (12/26/2017): Description: Trochanteric Bursitis Rheumatoid arthritis 01/12/2011 Overview (12/26/2017): Description: Rheumatoid Arthritis Irritable bowel syndrome 11/03/2010 Gastroesophageal reflux disease 11/03/2010 Pseudophakia 08/23/2010 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 Brilinta is expensive and therefore will switch to Plavix 75 mg daily. I will prescribe patient sublingual nitroglycerin to be taken as needed for chest pain. Will reassess her symptoms next visit. Resolved Problems Problem Noted Date Diagnosed Date Resolved Date Stenosis of left carotid artery 08/16/2024 09/06/2024 Myocardial infarction involv ing right coronary artery (CMS/HCC) 07/06/2024 09/06/2024 Acute chest pain 07/05/2024 09/06/2024 Chest pain 07/02/2024 09/06/2024 Premature atrial contractions 07/23/2019 09/06/2024 Preoperative cardiovascular examination 07/23/2019 06/25/2021 Abnormal stress test 06/25/2019 019 Overview (06/25/2019): Added automatically from request for surgery [id number] Chest pain 06/25/2019 10/29/2021 Overview (06/25/2019): Added automatically from request for surgery [id number] Essential hypertension, malignant 09/23/2017 03/22/2019 Assessment & Plan (02/16/2018 9:10 AM CDT): Blood pressure is much better controlled. Continue current treatment. Assessment & Plan (12/29/2017 1:10 PM CDT): Blood pressure well controlled. Continue current treatment. Assessment & Plan (09/23/2017 1:48 PM PRODUCT ACCOUNTANT): Blood pressure is controlled today however patient states that her blood pressure runs high at home. I will bring patient 2 weeks and re-evaluate her blood pressure as well as re-evaluate her blood pressure log. I asked the patient also to bring her blood pressure machine to compare her home reading with our readings here. Encounters Date Type Department Care Team Description 11/02/2024 Telephone [facility] Medical [facility] Cardiology [address] [place] [phone] Alfredo Pedraza MD 10/25/2024 Telephone [facility] Cardiology [address] [place] [address] [place] [phone] Mae Mac MA Med Refill 10/22/2024 Telephone [facility] Surgery [address] [place] [address] Medical Office Building [address] [place] [phone] Dayana Neal RMA Scheduling Appointments 10/18/2024 Telephone [facility] Cardiology [address] [place] [phone] Alfredo Pedraza MD Med Refill 10/08/2024 Telephone [facility] Surgery [address] [place] [address] Medical Office Building [address] [place] [phone] Carolina Maria NP 10/06/2024 Telephone [facility] Surgery [address] [place] [address] Medical Office Building [address] [place] [phone] Dayana Neal RMA Med Management 10/04/2024 Telephone [facility] Medical [facility] Cardiology [address] [place] [address] Alfredo Pedraza MD 10/02/2024 8:18 AM PRODUCT ACCOUNTANT - 10/02/2024 4:06 PM PRODUCT ACCOUNTANT Emergency [facility] Emergency Department [id number] [place] [phone] Dawson Reyez MD Chest tightness (Primary Dx); Accelerated hypertension Discharge Disposition: Discharge to home or self care 09/29/2024 Telephone [facility] Cardiology [address] [place] [phone] Alfredo Pedraza MD 09/29/2024 Telephone [facility] Surgery [address] [place] [address] Medical Office Building [address] [place] [phone] Dayana Neal RMA Surgery Confirmation 09/17/2024 11:59 PM PRODUCT ACCOUNTANT Anesthesia Event [facility] Operating Room [address] [place] [address] Andi Benedict MD 09/17/2024 10:00 AM PRODUCT ACCOUNTANT Pre-Admission Testing [facility] Center for Preoperative Assessment and Planning [facility] ([facility]) [address] [place] [address] Preoperative testing (Primary Dx) 09/06/2024 Telephone [facility] Surgery [address] [place] [address] Medical Office Building [address] [place] [phone] Carolina Maria NP 08/30/2024 1:15 PM PRODUCT ACCOUNTANT Office Visit [facility] Cardiology [address] [place] [phone] Alfredo Pedraza MD PAF (paroxysmal atrial fibrillation) (CMS/HCC) (HCC) (Primary Dx); Coronary artery disease involving nikolai coronary artery of nikolai heart with angina pectoris (HCC); History of carotid artery disease; Mixed hyperlipidemia; Hypertensive heart disease with heart failure (CMS/HCC) (HCC) 08/19/2024 12:25 PM PRODUCT ACCOUNTANT - 08/19/2024 11:59 PM PRODUCT ACCOUNTANT Hospital Encounter [facility] [address] [place] [address] Carotid atherosclerosis, bilateral Discharge Disposition: Discharge to home or self care 08/16/2024 11:15 AM PRODUCT ACCOUNTANT Office Visit [facility] Surgery [address] [facility] Medical Office Building 1 [address], [place] [phone] Boby Hernandez MD Bilateral carotid artery stenosis (Primary Dx); Carotid atherosclerosis, bilateral; Coronary artery disease due to calcified coronary lesion 08/16/2024 10:00 AM PRODUCT ACCOUNTANT - 08/16/2024 11:59 PM PRODUCT ACCOUNTANT Hospital Encounter [facility] Vascular Lab [address] [place] [address] Bilateral carotid artery stenosis Discharge Disposition: Discharge to home or self care from Last 3 Months Immunizations Immunization Administration Dates Next Due COVID-19 mRNA ([employer]) 0.3 m L (30 mcg) vaccine (12 years and up) 07/16/2024 Influenza, Trivalent, High D ose, Split, Preservative Free, Intramuscular 07/16/2024 Influenza, Trivalent, Preservative Free, Intramu scular 06/21/2008 Tdap 07/19/2013 Surgical History Surgery Date Site/Laterality Comments HYSTERECTOMY SHOULDER ADHESION RELEASE SHOULDER SURGERY CORONARY ANGIOPLASTY CARDIAC CATHETERIZATION CATARACT EXTRACTION W/ INTRA OCULAR LENS IMPLANT Bilateral ORAL SURGERY Upper teeth pulled Medical History Medical History Date Comments Hypertension Hyperlipidemia Thyroid disease Rheumatoid arthritis (HCC) Diabetes mellitus (HCC) Type 2 diabetes mellitus (HCC) Coronary artery disease Glaucoma Asthma Family History Medical History Relation Name Comments Heart attack Father Heart attack Mother Relation Name Status Comments Father Mother Social History Tobacco Use Types Packs/Day Years Used Date Smoking Tobacco: Never Smokeless Tobacco: Never Tobacco Cessation:Counseling Given: Not Answered Alcohol Use Standard Drinks/Week Comments No 0 (1 standard drink = 0.6 oz pur e alcohol) [facility] Utilities Answer Date Recorded In the past 12 months has e [employer], gas, oil, or water [employer] threatened to shut off services in your home? No 07/08/2024 Social Connection and Isolat ion Panel [NHANES] Answer Date Recorded In a typical week, how many times do you talk on the phone with family, friends, or neighbors? More than three times a week 07/08/2024 How often do you get togethe r with friends or relatives? Once a week 07/08/2024 How often do you attend chur ch or samaritan services? Never 07/08/2024 Do you belong to any clubs o r organizations such as amish groups, unions, fraternal or athletic groups, or school groups? No 07/08/2024 How often do you attend meet ings of the clubs or organizations you belong to? Never 07/08/2024 Are you , , di vorced, , never , or living with a partner? 07/08/2024 AUDIT-C Answer Date Recorded Q1: How often do you have a drink containing alcohol? Never 09/17/2024 Q2: How many drinks containi ng alcohol do you have on a typical day when you are drinking? Patient does not drink Q3: How often do you have si x or more drinks on one occasion? Never 09/17/2024 Overall Financial Resource Strain (CARDIA) Answe r Date Recorded How hard is it for you to pa y for the very basics like food, housing, medical care, and heating? Not hard at all 07/08/2024 Hunger Vital Sign Answer Date Recorded Within the past 12 months, y ou worried that your food would run out before you got the money to buy more. Never true 07/08/20 24 Within the past 12 months, t he food you bought just didn't last and you didn't have money to get more. Never true 07/08/2024 PRAPARE - Transportation Answer Date Re corded In the past 12 months, has l ack of transportation kept you from medical appointments or from getting medications? No 06/16 In the past 12 months, has l ack of transportation kept you from meetings, work, or from getting things needed for daily living? No 07/08/2024 Housing Stability Vital Sign Answer Mateo e Recorded In the last 12 months, was t here a time when you were not able to pay the mortgage or rent on time? No 07/08/2024 In the past 12 months, how m any times have you moved where you were living? 1 07/08/2024 At any time in the past 12 m [facility], were you homeless or living in a senior living (including now)? No 07/08/2024 Personal Safety Answer Date Recorded Have you ever been in or are you currently in a harmful physical or emotional relationship or is someone making you feel afraid or unsafe? Denies 10/01/2024 Comments No Sex and Gender Information Value Date Recorded Sex Assigned at Not on file Legal Sex Female 2:12 AM PRODUCT ACCOUNTANT Gender Identity Not on file Sexual Orientation Not on file Obstetrics History Last Filed Vital Signs Vital Sign Reading Time Taken Comments Blood Pressure 147/49 10/02/2024 3:30 PM PRODUCT ACCOUNTANT Pulse 59 10/02/2024 3:30 PM PRODUCT ACCOUNTANT Temperature 36.6 C (97.8 F) 10/01/2024 11:41 PM PRODUCT ACCOUNTANT Respiratory Rate 12 10/02/2024 3:30 PM PRODUCT ACCOUNTANT Oxygen Saturation 98% 10/02/2024 8:45 AM PRODUCT ACCOUNTANT Inhaled Oxygen Concentration - - Weight 59 kg (130 lb) 10/01/2024 11:41 PM PRODUCT ACCOUNTANT Height 149.9 cm (4' 11 ) 10/01/2024 11:41 PM PRODUCT ACCOUNTANT Body Mass Index 26.26 10/01/2024 11:41 PM PRODUCT ACCOUNTANT Plan of Treatment Upcoming Encounters Date Type Department Care Team (Latest Contact Info) Description 11/10/2024 8:30 AM PRODUCT ACCOUNTANT Hospital Encounter [facility] Operating Room [address] [place] [address] [place] [address] [address] [address] Stenosis of left carotid artery 11/10/2024 8:30 AM PRODUCT ACCOUNTANT - 11/10/2024 1:35 PM PRODUCT ACCOUNTANT Surgery [facility] Operating Room [address] [place] [address] [place] [address] [address] [address] LEFT CAROTID ENDARTERECTOMY Health Maintenance Due Date Last Done Comments Albumin Creatinine Ratio, Urine 1945 Depression Screening 1945 Osteoporosis Screening-Bone Density Scan 1945 Foot Exam 1943 Hepatitis B Screening 1961 Zoster Vaccine (1 of 2) 1993 Well Visit 65+ 01/06/2008 Pneumococcal vaccine 65+ (2 of 2 - PPSV23) 09/02/2016 07/08/2016, 07/12/2012, 07/12/2012 Dilated Eye Exam 03/05/2023 03/05/2022, , 01/17/2022 Hemoglobin A1C 01/04/2025 07/06/2024, 03/29/2018 Lipid Panel 07/05/2025 07/05/2024, 06/15, 03/28/2018, Additional history exists Fall Risk Assessment 09/17/2025 09/17/2024 eGFR 10/01/2025 10/01/2024, 11/2024, 07/16/2024, Additional history exists DTaP/Tdap/Td Vaccine (4 - Td or Tdap) 06/19/2033 06/19/2023, 06/30/2016, 07/19/2013 Influenza Vaccine Completed 07/16/2024, , 07/14/2019, Additional history exists Medical Devices Implanted Type Area Corporate Associate Attorney Device Identifier Shelf Expiration Date Model / Serial / Lot Personally Scientific [employer] medical Stent Coronary Drug Eluting Rapid Exchange Synergy Megatron 3.17v06dt [employer] [id number] - [id number] Implanted:Qty: 1 on 07/06/2024 by Alfredo Pedraza MD at [facility] [employer] 11/19/2025 [id number] / / [id number] [employer] Stent Drug Eluting S Megatron 3.50x8mm [id number] - [id number] Implanted:Qty: 1 on 07/06/2024 by Alfredo Pedraza MD at [facility] [employer] 07/07/2025 [id number] / / [id number] [employer] [facility] Angio-Seal Vip 6fr Closere Device [id number] - [id number] Implanted:Qty: 1 on 07/06/2024 by Alfredo Pedraza MD at [facility] [id number] / / Procedures Procedure Name Priority Date/Time Associated Diagnosis Comments TROPONIN T HIGH-SENSITIVITY 2-HOUR STAT 10/02/2024 1:47 PM PRODUCT ACCOUNTANT TROPONIN T HIGH-SENSITIVITY SERIES (BASELINE, 2HR, 4HR, 6HR) STAT 10/02/2024 10:14 AM PRODUCT ACCOUNTANT MS CRITICAL CARE ILL/INJURED PATIENT INIT 30-74 MIN Routine 10/02/2024 9:59 AM PRODUCT ACCOUNTANT EGFR STAT 10/01/2024 11:52 PM PRODUCT ACCOUNTANT DIFFERENTIAL AUTO STAT 10/01/2024 11: 52 PM PRODUCT ACCOUNTANT TROPONIN T HIGH-SENSITIVITY SERIES (BASELINE, 2HR, 4HR, 6HR) STAT 10/01/2024 11:52 PM PRODUCT ACCOUNTANT COMPREHENSIVE METABOLIC PANEL STAT 10/01/2024 11:52 PM PRODUCT ACCOUNTANT CBC WITH AUTO DIFFERENTIAL STAT 10/01/2024 11:52 PM PRODUCT ACCOUNTANT ECG 12-LEAD Routine 10/01/2024 11:45 PM PRODUCT ACCOUNTANT EGFR Routine 09/17/2024 12:20 PM PRODUCT ACCOUNTANT Preoperative testing COMPREHENSIVE METABOLIC PANEL Routine 09/17/2024 12:20 PM PRODUCT ACCOUNTANT Preoperative testing CBC WITHOUT DIFFERENTIAL Routine 09/17/2024 12:20 PM PRODUCT ACCOUNTANT Preoperative testing TYPE AND SCREEN 14 DAY Routine 09/17/2024 12:20 PM PRODUCT ACCOUNTANT Preoperative testing CTA HEAD NECK W WO CONTRAST Schedule Routine, Read Routine (OP Routine) 08/19/2024 12:43 PM PRODUCT ACCOUNTANT Carotid atherosclerosis, bilateral US CAROTIDS DUPLEX BILATERAL Schedule Routine, Read Routine (OP Routine) 08/16/2024 11:13 AM PRODUCT ACCOUNTANT Bilateral carotid artery stenosis HEMOGLOBIN A1C Routine 07/06/2024 12:14 AM CDT LIPID PANEL Timed 07/05/2024 10:45 AM CDT from Last 3 Months or Most Recently Relevant to Health Maintenance Results * (ABNORMAL) Troponin T high-sensitivity 2-hour (10/02/2024 1:47 PM PRODUCT ACCOUNTANT) Trop T hs 29(H) <=14 ng/L Comment: Interpretive Data For further hscTnT resources including the diagnostic algorithm and an aid in interpretation, copy and paste this link: [email or web address] Current Interpretive Data last revised 2020. Trop T hs delta See Comment ng/L [facility]ANZ Comment:Inappropriate collec tion time to report a delta. Trop T hs pct delta See Comment % [facility]BY Comment:Inappropriate collec tion time to report a delta. Trop T hs interp See Comment [facility]BY Comment:Inappropriate collec tion time to report a delta. Blood 10/02/2024 1:47 PM PRODUCT ACCOUNTANT 10/02/2024 1:52 PM PRODUCT ACCOUNTANT Dawson Reyez MD LAB BLOOD ORDERABLES F inal Result [facility] [address] Department [place] [address] * (ABNORMAL) Troponin T high-sensitivity series (baseline, 2hr, 4hr, 6hr) (10/02/2024 10:14 AM PRODUCT ACCOUNTANT) Trop T hs 22(H) <=14 ng/L Comment: Slight hemolysis may result in decreased troponin measurement. Consider recollection. Interpretive Data For further hscTnT resources including the diagnostic algorithm and an aid in interpretation, copy and paste this link: [email or web address] Current Interpretive Data last revised 2020. Blood 10/02/2024 10:1 4 AM PRODUCT ACCOUNTANT 10/02/2024 10:14 AM PRODUCT ACCOUNTANT us Dawson Reyez MD LAB [place]LOOD [place] [address] [address] [place] [address] * MS CRITICAL CARE ILL/INJURED PATIENT INIT 30-74 MIN (10/02/2024 9:59 AM PRODUCT ACCOUNTANT) Narrative Dawson Reyez MD - 10/02/2024 9:59 AM PRODUCT ACCOUNTANT Dawson Reyez MD 10/02/2024 2:21 PM Critical Care Performed by: Dawson Reyez MD Authorized by: Dawson Reyez MD Critical care provider statement: As reflected in the history, physical exam, orders, notes, and/or MDM, I was personally present while the patient was critically ill and provided critical care services for 35 minutes, excluding time involved in separately billable procedures. Critical care was necessary to treat or prevent imminent or life-threatening deterioration of the following condition(s): unstable vital signs Uncontrolled HTN Critical care was time spent by me providing the following: continuous telemetry, continuous pulse oximetry, interpretation of bedside monitors, imaging, and arterial/venous lab draws, serial bedside patient exams and serial laboratory checks IV hydralazine I provided emergent necessary critical care medicine services to this patient. I ordered and reviewed test results and/or imaging studies. I spent time discussing the management of this critically ill patient with consultants and the medical staff. I spent time discussing the management and therapeutic options for this critically ill patient with the patient themselves or with the appropriate designated surrogate decision-maker. I spent time documenting in the medical record. us Dawson Reyez MD IN CLINIC/BEDSIDE [facility] [place] Final Result * (ABNORMAL) Troponin T high-sensitivity series (baseline, 2hr, 4hr, 6hr) (10/01/2024 11:52 PM PRODUCT ACCOUNTANT) Trop T hs 29(H) <=14 ng/L Comment: Interpretive Data For further hscTnT resources including the diagnostic algorithm and an aid in interpretation, copy and paste this link: [email or web address]/[email or web address] Current Interpretive Data last revised 2020. Blood 10/01/2024 11:5 2 PM PRODUCT ACCOUNTANT 10/02/2024 12:01 AM PRODUCT ACCOUNTANT us Dewayne Saucedo MD LAB BLOOD ORDERABLES Edited Result - Final Performing Organization Address [facility] Co de Phone Number [facility] [address] [place], [place] [id number] * eGFR (10/01/2024 11:52 PM PRODUCT ACCOUNTANT) eGFR 75 >=60 mL/min/1. 73 m2 Comment: Interpretive Data Reference Interval Normal >/= 90 mL/min/1.73m2 Mildly decreased* 60 - 89 mL/min/1.73m2 Mildly to moderately decreased 45 - 59 mL/min/1.73m2 Moderately to severely decreased 30 - 44 mL/min/1.73m2 Severely decreased 15 - 29 mL/min/1.73m2 Kidney Failure < 15 mL/min/1.73m2 *Relative to young adult level Estimated glomerular filtration rate is determined by the 2020 CKD-EPI equation recommended by the National Kidney Foundation (A Unifying Approach to GFR Estimation: Recommendations of the NKF-ASK Task Force on Reassessing the Inclusion of Race in Diagnosing Kidney Disease, JASN 2020). The CKD-EPI equation should not be used for patients with unstable renal function and has not been validated in children and those over 70. Current interpretive data was last reviewed 2021. Blood 10/01/2024 11:5 2 PM PRODUCT ACCOUNTANT 10/02/2024 12:21 AM PRODUCT ACCOUNTANT us Dewayne Saucedo MD LAB BLOOD ORDERABLES Final Result Performing Organization Address [facility] [place] [address] [address] [place] [address] * Differential, auto (10/01/2024 11:52 PM PRODUCT ACCOUNTANT) Neutrophil abs 4.2 1.5 - 6.5 K/cumm Imm gran abs 0.0 0.0 - 0.1 K/cumm [facility] Lymphocyte abs 2.2 0.8 - 3.3 K/cumm [facility] Monocyte abs 0.5 0.2 - 0.8 K/cumm [facility] Eosinophil abs 0.0 0.0 - 0.5 K/cumm [facility] Basophil abs 0.1 0.0 - 0.1 K/cumm [facility] Neutrophil pct 60.4 % [facility] Comment: Interpretive Data Percent cell count reference ranges are not reported, since discordance with absolute values may lead to misinterpretation of CBC data. Current Interpretive Data was last revised on 2017. Imm gran pct 0.3 % [facility] Comment: Interpretive Data Percent cell count reference ranges are not reported, since discordance with absolute values may lead to misinterpretation of CBC data. Current Interpretive Data was last revised on 2017. Lymphocyte pct 31.6 % [facility] Comment: Interpretive Data Percent cell count reference ranges are not reported, since discordance with absolute values may lead to misinterpretation of CBC data. Current Interpretive Data was last revised on 2017. Monocyte pct 6.6 % [facility] Comment: Interpretive Data Percent cell count reference ranges are not reported, since discordance with absolute values may lead to misinterpretation of CBC data. Current Interpretive Data was last revised on 2017. Eosinophil pct 0.4 % [facility] Comment: Interpretive Data Percent cell count reference ranges are not reported, since discordance with absolute values may lead to misinterpretation of CBC data. Current Interpretive Data was last revised on 2017. Basophil pct 0.7 % [facility] Comment: Interpretive Data Percent cell count reference ranges are not reported, since discordance with absolute values may lead to misinterpretation of CBC data. Current Interpretive Data was last revised on 2017. Blood 10/01/2024 11:5 2 PM PRODUCT ACCOUNTANT 10/02/2024 12:01 AM PRODUCT ACCOUNTANT Dewayne Saucedo MD LAB BLOOD ORDERABLES Final Result Performing Organization Address City/[facility]/ZIP Co de Phone Number [facility] FRANZ [address] Department [place] [address] * (ABNORMAL) CBC with auto differential (10/01/2024 11:52 PM PRODUCT ACCOUNTANT) Pathologist [facility] WBC 7.0 3.8 - 9.9 K/cumm Hgb 9.5(L) 11.9 - 15.5 g/dL [facility] Hct 29.0(L) 35.6 - 45.5 % [facility] Plt 203 150 - 400 K/cumm [facility] MPV 9.6 9.1 - 12.3 fL [facility] CH RBC 3.06(L) 3.90 - 5.20 M/cumm [facility] MCV 94.8 81.3 - 96.4 fL [facility] MCH 31.0 27.1 - 33.3 pg [facility] MCHC 32.8 32.3 - 35.7 g/dL [facility] CH RDW CV 12.5 11.1 - 14.9 % [facility] RDW SD 42.7 35.7 - 48.1 fL [facility] NRBC abs 0.00 0.00 - 0.01 K/cumm [facility] Blood (Blood, Venous) 10/01/2024 11:52 PM PRODUCT ACCOUNTANT 10/02/2024 12:01 AM PRODUCT ACCOUNTANT Dewayne Saucedo MD LAB BLOOD ORDERABLES Final Result Performing Organization Address [facility] Co de Phone Number [place] FR[facility] [address] Department [place] [address] * (ABNORMAL) Comprehensive metabolic panel (10/01/2024 11:52 PM PRODUCT ACCOUNTANT) Pathologist [facility] Sodium 130(L) 135 - 145 mmol/L Potassium, pl 3.6 3.3 - 4.9 mmol/L [facility] Chloride 98 97 - 110 mmol/L [facility] CO2 20(L) 22 - 32 mmol/L [facility] Anion gap 12 2 - 15 mmol/L [facility] BUN 10 6 - 25 mg/dL [facility] Creatinine 0.79 0.60 - 1.10 mg/dL [facility] Glucose 115 70 - 199 mg/dL [facility] Comment: Interpretive Data Fasting glucose >/= 126 mg/dl is diagnostic for diabetes. Fasting is defined as no caloric intake for at least 8 hours. Fasting glucose between 100 mg/dl to 125 mg/dl is diagnostic of prediabetes. In a patient with classic symptoms of hyperglycemia or hyperglycemic crisis, a random glucose >/= 200 mg/dl is diagnostic for diabetes. In the absence of unequivocal hyperglycemia, results should be confirmed by repeat testing. The classification and Diagnosis of Diabetes Diabetes Care 2021; 46: S19-S40. Current interpretive data was last revised 2022. Calcium 8.2(L) 8.5 - 10.3 mg/dL [facility] Bilirubin, total 0.7 0.1 - 1.2 mg/dL [facility] Protein, pl 5.8(L) 6.5 - 8.5 g/dL [facility] Albumin 3.5 3.5 - 5.0 g/dL [facility] Alk phos 71 40 - 130 Units/L [facility] ALT 23 7 - 45 Units/L [facility] AST 34 10 - 45 Units/L [facility] Blood 10/01/2024 11:5 2 PM PRODUCT ACCOUNTANT 10/02/2024 12:01 AM PRODUCT ACCOUNTANT Dewayne Saucedo MD LAB BLOOD ORDERABLES Final Result [facility] [address] Department [place] [address] * ECG 12 lead (10/01/2024 11:45 PM PRODUCT ACCOUNTANT) 10/01/2024 11:4 5 PM PRODUCT ACCOUNTANT Narrative [facility] - 10/02/2024 12:51 PM PRODUCT ACCOUNTANT Vent Rate: 51 bpm RR Interval: 1170 msec MS Interval: 205 msec QRS Duration: 90 msec QT Interval: 465 msec QTC Interval: 441 msec P-R-T Freer: 68 - -38 - 23 degrees IMPRESSION: SINUS BRADYCARDIA VOLTAGE CRITERIA FOR LVH Electronically Signed By: Jerrod Blackwell MD, [facility] Dewayne Saucedo MD ECG ORDERABLES Final Resul t [facility] * TYPE AND SCREEN 14 DAY (09/17/2024 12:20 PM PRODUCT ACCOUNTANT) ABO Rh O Positive Caitie, indirect Negative [facility] Blood 09/17/2024 12:2 0 PM PRODUCT ACCOUNTANT 09/17/2024 1:11 PM PRODUCT ACCOUNTANT Narrative [facility] - 09/17/2024 2:19 PM PRODUCT ACCOUNTANT Is this test being ordered in advance for a procedure?->Yes Expected date of procedure:->09/28/24 Has the patient been transfused in the past 3 months?->No Has the patient been in the past 3 months?->No us Andi Benedict MD LAB BLOOD BANK TEST ORDERABL ES Final Result Performing Organization Address City/[facility]/ZIP Co de Phone Number [facility] Department [place] [address] * eGFR (09/17/2024 12:20 PM PRODUCT ACCOUNTANT) eGFR 69 >=60 mL/min/1. 73 m2 Comment: Interpretive Data Reference Interval Normal >/= 90 mL/min/1.73m2 Mildly decreased* 60 - 89 mL/min/1.73m2 Mildly to moderately decreased 45 - 59 mL/min/1.73m2 Moderately to severely decreased 30 - 44 mL/min/1.73m2 Severely decreased 15 - 29 mL/min/1.73m2 Kidney Failure < 15 mL/min/1.73m2 *Relative to young adult level Estimated glomerular filtration rate is determined by the 2020 CKD-EPI equation recommended by the National Kidney Foundation (A Unifying Approach to GFR Estimation: Recommendations of the NKF-ASK Task Force on Reassessing the Inclusion of Race in Diagnosing Kidney Disease, JASN 2020). The CKD-EPI equation should not be used for patients with unstable renal function and has not been validated in children and those over 70. Current interpretive data was last reviewed 2021. Blood 09/17/2024 12:2 0 PM PRODUCT ACCOUNTANT 09/17/2024 12:54 PM PRODUCT ACCOUNTANT us Andi Benedict MD LAB BLOOD ORDERABLES Final R esult Performing Organization Address City/[facility]/ZIP Co de Phone Number [facility] Department [place] [address] * (ABNORMAL) CBC without differential (09/17/2024 12:20 PM PRODUCT ACCOUNTANT) Pathologist [facility] WBC 10.3(H) 3.8 - 9.9 K/cumm Hgb 12.7 11.9 - 15.5 g/dL [facility] Hct 37.0 35.6 - 45.5 % [facility] Plt 260 150 - 400 K/cumm [facility] MPV 10.5 9.1 - 12.3 fL [facility] RBC 4.17 3.90 - 5.20 M/cumm [facility] MCV 88.7 81.3 - 96.4 fL [facility] MCH 30.5 27.1 - 33.3 pg [facility] MCHC 34.3 32.3 - 35.7 g/dL [facility] RDW CV 13.3 11.1 - 14.9 % [facility] RDW SD 42.7 35.7 - 48.1 fL [facility] NRBC abs 0.00 0.00 - 0.01 K/cumm [facility] Blood 09/17/2024 12:2 0 PM PRODUCT ACCOUNTANT 09/17/2024 12:55 PM PRODUCT ACCOUNTANT us Andi Benedict MD LAB BLOOD ORDERABLES Final R esult Performing Organization Address City/[facility]/ZIP Co de Phone Number [facility] Department [place] [address] * (ABNORMAL) Comprehensive metabolic panel (09/17/2024 12:20 PM PRODUCT ACCOUNTANT) Pathologist [facility] Sodium 130(L) 135 - 145 mmol/L Potassium, pl 4.2 3.3 - 4.9 mmol/L [facility] Chloride 95(L) 97 - 110 mmol/L [facility] CO2 23 22 - 32 mmol/L [facility] Anion gap 12 2 - 15 mmol/L [facility] BUN 12 6 - 25 mg/dL [facility] Creatinine 0.85 0.60 - 1.10 mg/dL [facility] Glucose 88 70 - 199 mg/dL [facility] Comment: Interpretive Data Fasting glucose >/= 126 mg/dl is diagnostic for diabetes. Fasting is defined as no caloric intake for at least 8 hours. Fasting glucose between 100 mg/dl to 125 mg/dl is diagnostic of prediabetes. In a patient with classic symptoms of hyperglycemia or hyperglycemic crisis, a random glucose >/= 200 mg/dl is diagnostic for diabetes. In the absence of unequivocal hyperglycemia, results should be confirmed by repeat testing. The classification and Diagnosis of Diabetes Diabetes Care 2021; 46: S19-S40. Current interpretive data was last revised 2022. Calcium 9.3 8.5 - 10.3 mg/dL [facility] Bilirubin, total 1.2 0.1 - 1.2 mg/dL [facility] Protein, pl 7.1 6.5 - 8.5 g/dL [facility] Albumin 4.4 3.5 - 5.0 g/dL [facility] Alk phos 81 40 - 130 Units/L [facility] ALT 19 7 - 45 Units/L [facility] AST 27 10 - 45 Units/L [facility] Blood 09/17/2024 12:2 0 PM PRODUCT ACCOUNTANT 09/17/2024 12:54 PM PRODUCT ACCOUNTANT us Andi Benedict MD LAB BLOOD ORDERABLES Final R esult [facility] [place] [address] * CTA Head Neck W WO Contrast (08/19/2024 12:43 PM PRODUCT ACCOUNTANT) Anatomical Region Laterality Modality Head and Neck N/A Computed Tomogra phy 08/19/2024 1:47 PM PRODUCT ACCOUNTANT Narrative 08/19/2024 2:07 PM PRODUCT ACCOUNTANT EXAM DESCRIPTION: CTA HEAD NECK W WO CONTRAST REASON FOR STUDY: carotid stenosis Carotid atherosclerosis, bilateral TECHNIQUE: Axial images were first obtained through the brain without contrast. Axial dynamic scanning technique with dynamic contrast enhancement through the intracranial and extracranial carotid and vertebral arteries. Multiplanar reconstruction. All stenosis measurements are based on NASCET criteria. 3D MIP images rendered on scanning unit and reviewed at time of interpretation. Automated exposure control was used as a dose optimization technique for this examination. CONTRAST TYPE/DOSE: 100mL of IOVERSOL 350 MG IODINE/ML INTRAVENOUS SYRINGE injected via intravenous COMPARISON: 07/05/[address] FINDINGS: BRAIN CEREBRUM: No hemorrhage, edema or mass effect. No CT evidence for recent infarct. Cerebral volume is within normal limits for age. Ventricular size is within normal limits for age. No suspicious hyperintensity is seen on noncontrast images there are atherosclerotic calcifications. No gross enhancing lesion. WHITE MATTER: Grossly unremarkable POSTERIOR FOSSA: No masses. No hemorrhage. No evidence for acute infarction. EXTRA-AXIAL SPACES: No fluid collections. No masses. ORBITS: No significant abnormality. CALVARIUM: No fracture. SINUSES/MASTOIDS: No fluid or mucosal thickening. OTHER: No other significant abnormality. INTRACRANIAL VESSELS [place]: The anterior, middle, posterior cerebral arteries are all patent. No evidence of aneurysm or focal stenosis. POSTERIOR CIRCULATION: The distal vertebral arteries are patent as is the basilar artery. There is mild left V4 segment and mild right V4 segment stenosis secondary to calcified plaque. No aneurysm. BRAIN: No gross enhancing lesions as visualized. CAROTID CTA RIGHT CAROTIDS: Mild stenosis of the cavernous internal carotid artery secondary to calcified plaque .. there is severe calcification at the proximal internal carotid artery. Heavy calcification makes quantification of stenosis difficult but measures at least 75 %. No significant common or external carotid artery stenosis. LEFT CAROTIDS: No significant common or external carotid artery stenosis. Severe calcification of the proximal left internal carotid artery. Heavy calcification makes quantification of stenosis difficult but measures at least 80%. LEFT VERTEBRAL: Patent. No significant stenosis. No dissection. RIGHT VERTEBRAL: Patent. No significant stenosis. No dissection. AORTIC ARCH: Atherosclerotic. Normal three-vessel origin. Bilateral subclavian arteries are patent. No dissection. NECK SOFT TISSUE: No mass, adenopathy. No thyroid nodule greater than 1 cm. INCLUDED LUNGS: No acute abnormality. No worrisome nodules. OTHER: Right humeral head suture anchors are present. Multilevel facet and uncovertebral osteoarthritis. No aggressive bone lesion or acute fracture is seen in the visualized skeleton. There is multilevel degenerative disc disease, most pronounced and severe at C5-C6 with mild multilevel cervical anterolisthesis. No obvious high-grade osseous spinal canal stenosis is seen. IMPRESSION: BRAIN: No acute intracranial findings. INTRACRANIAL CTA: No large vessel occlusion. Mild bilateral V4 segment stenosis. CAROTID CTA: Severe calcification at the proximal internal carotid arteries. Heavy calcification makes quantification of stenosis difficult but measures at least 75% on the right and 80% on the left. THIS IS AN ELECTRONICALLY VERIFIED FINAL REPORT 08/19/2024 2:07 PM - Electronically signed by Larry Alan M.D. MZ T: Report ID: [id number] Reading Location: [place] [address] Procedure Note Larry Alan MD - 08/19/2024 EXAM DESCRIPTION: CTA HEAD NECK W WO CONTRAST REASON FOR STUDY: carotid stenosis Carotid atherosclerosis, bilateral TECHNIQUE: Axial images were first obtained through the brain without contrast. Axial dynamic scanning technique with dynamic contrast enhancement throughthe intracranial and extracranial carotid and vertebral arteries. Multiplanar reconstruction. All stenosis measurements are based on NASCET criteria. 3D MIP images rendered on scanning unit and reviewed at time of interpretation. Automated exposure control was used as a dose optimization technique forthis examination. CONTRAST TYPE/DOSE: 100mL of IOVERSOL 350 MG IODINE/ML INTRAVENOUSSYRINGE injected via intravenous COMPARISON: 07/05/[address] FINDINGS: BRAIN CEREBRUM: No hemorrhage, edema or mass effect. No CT evidence forrecent infarct. Cerebral volume is within normal limits for age. Ventricularsize is within normal limits for age. No suspicious hyperintensity is seen on noncontrast images there are atherosclerotic calcifications. No gross enhancing lesion. WHITE MATTER: Grossly unremarkable POSTERIOR FOSSA: No masses. No hemorrhage. No evidence for acuteinfarction. EXTRA-AXIAL SPACES: No fluid collections. No masses. ORBITS: No significant abnormality. CALVARIUM: No fracture. SINUSES/MASTOIDS: No fluid or mucosal thickening. OTHER: No other significant abnormality. INTRACRANIAL VESSELS [place]: The anterior, middle, posterior cerebral arteries areall patent. No evidence of aneurysm or focal stenosis. POSTERIOR CIRCULATION: The distal vertebral arteries are patent as isthe basilar artery. There is mild left V4 segment and mild right V4 segment stenosis secondary to calcified plaque. No aneurysm. BRAIN: No gross enhancing lesions as visualized. CAROTID CTA RIGHT CAROTIDS: Mild stenosis of the cavernous internal carotid artery secondary to calcified plaque .. there is severe calcification at the proximal internal carotid artery. Heavy calcification makesquantification of stenosis difficult but measures at least 75 %. No significant common or external carotid artery stenosis. LEFT CAROTIDS: No significant common or external carotid arterystenosis. Severe calcification of the proximal left internal carotid artery. Heavy calcification makes quantification of stenosis difficult but measures atleast 80%. LEFT VERTEBRAL: Patent. No significant stenosis. No dissection. RIGHT VERTEBRAL: Patent. No significant stenosis. No dissection. AORTIC ARCH: Atherosclerotic. Normal three-vessel origin. Bilateral subclavian arteries are patent. No dissection. NECK SOFT TISSUE: No mass, adenopathy. No thyroid nodule greater than 1cm. INCLUDED LUNGS: No acute abnormality. No worrisome nodules. OTHER: Right humeral head suture anchors are present. Multilevel facetand uncovertebral osteoarthritis. No aggressive bone lesion or acute fractureis seen in the visualized skeleton. There is multilevel degenerative disc disease, most pronounced and severe at C5-C6 with mild multilevel cervical anterolisthesis. No obvious high-grade osseous spinal canal stenosis isseen. IMPRESSION: BRAIN: No acute intracranial findings. INTRACRANIAL CTA: No large vessel occlusion. Mild bilateral V4 segment stenosis. CAROTID CTA: Severe calcification at the proximal internal carotid arteries. Heavy calcification makes quantification of stenosis difficult but measures atleast 75% on the right and 80% on the left. THIS IS AN ELECTRONICALLY VERIFIED FINAL REPORT 08/19/2024 2:07 PM - Electronically signed by Larry Alan M.D. MZ T: Report ID: [id number] Reading Location: [place] [address] us Boby Hernandez MD IMG CT PROCEDURES Final Resu lt * US Carotids Duplex Bilateral (08/16/2024 11:13 AM PRODUCT ACCOUNTANT) Anatomical Region Laterality Modality Vascular Bilateral Ultrasound 08/16/2024 11:2 0 AM PRODUCT ACCOUNTANT Impressions 08/16/2024 11:20 AM PRODUCT ACCOUNTANT Findings consistent with 80% to 99% stenosis of the right and left internal carotid artery origins. Numbers to know for Carotid Artery Stenosis sonograms: Peak systolic velocities of ICA < 125 cm/s and ICA/CCA ratio <2 corresponds to 0-50% stenosis. Peak systolic velocities of ICA 125-230 cm/s and ICA/CCA ratio 2.0-4.0 corresponds to 50-69% stenosis. Peak systolic velocities of ICA >230 and ICA/CCA ratio >4.6 corresponds to 70-79% stenosis. Electronically signed by: Anuj Coughlin M.D. Narrative 08/16/2024 11:20 AM PRODUCT ACCOUNTANT EXAMINATION: US CAROTIDS DUPLEX BILATERAL DATE: 08/16/2024 10:00 AM HISTORY: Occlusion and stenosis of bilateral carotid arteries TECHNIQUE: Ultrasound of the common and internal carotid arteries was performed with a linear transducer with color and spectral Doppler supplementation. COMPARISON: None. Findings on the right: Peak systolic velocities in centimeters per second: Right common carotid artery: 65 Right external carotid artery: 74 Right internal carotid artery: proximal 560, mid 116, distal 90 Right ICA /CCA ratio: 8.61 Right vertebral artery: normal cephalad flow Findings on the left: Peak systolic velocities in centimeters per second: Left common carotid artery: 60 Left external carotid artery: 79 Left internal carotid artery: proximal 610, mid 156, distal 183 Left ICA /CCA ratio: 10.17 Left vertebral artery: normal cephalad flow Antegrade flow noted bilaterally. Procedure Note Anuj Coughlin MD - 08/16/2024 EXAMINATION: US CAROTIDS DUPLEX BILATERAL DATE: 08/16/2024 10:00 AM HISTORY: Occlusion and stenosis of bilateral carotid arteries TECHNIQUE: Ultrasound of the common and internal carotid arteries was performed with a linear transducer with color and spectral Doppler supplementation. COMPARISON: None. Findings on the right: Peak systolic velocities in centimeters per second: Right common carotid artery: 65 Right external carotid artery: 74 Right internal carotid artery: proximal 560, mid 116, distal 90 Right ICA /CCA ratio: 8.61 Right vertebral artery: normal cephalad flow Findings on the left: Peak systolic velocities in centimeters per second: Left common carotid artery: 60 Left external carotid artery: 79 Left internal carotid artery: proximal 610, mid 156, distal 183 Left ICA /CCA ratio: 10.17 Left vertebral artery: normal cephalad flow Antegrade flow noted bilaterally. IMPRESSION: Findings consistent with 80% to 99% stenosis of the right and left internal carotid artery origins. Numbers to know for Carotid Artery Stenosis sonograms: Peak systolic velocities of ICA < 125 cm/s and ICA/CCA ratio <2 corresponds to 0-50% stenosis. Peak systolic velocities of ICA 125-230 cm/s and ICA/CCA ratio 2.0-4.0 corresponds to 50-69% stenosis. Peak systolic velocities of ICA >230 and ICA/CCA ratio >4.6 corresponds to 70-79% stenosis. Electronically signed by: Anuj Coughlin M.D. Alfredo Pedraza MD [facility] PROCEDURES Fi nal Result * Hemoglobin A1c (07/06/2024 12:14 AM CDT) Hgb A1C 5.6 4.0 - 5.6 % Estimated Average Glucose 114 mg/dL [facility] Comment: The ADA recommends reporting an estimated Average Glucose (eAG) with all Hemoglobin A1c results using the equation derived from a study of 507 normal and diabetic adults. Minority populations were underrepresented and children were not included. (Diabetes Care 31:8132-2466, 2008). The eAG is not equivalent to a fasting glucose. Blood 07/06/2024 12:1 4 AM CDT 07/06/2024 12:41 AM CDT Steff Dean NP LAB BLOOD ORDERABLES Final Result COBY [facility]ANZ [id number] Department [place] [address] * Lipid panel (07/05/2024 10:45 AM CDT) Cholesterol 103 30 - 199 mg/dL Comment: Interpretive Data Ages < or = 19 years Acceptable: <170 mg/dL Borderline high: 170-199 mg/dL High: >or= 200 mg/dL Ages > or = 20 years Desirable: <200 mg/dL Borderline high: 200-239 mg/dL High: >or= 240 mg/dL Literature References: 1. Expert Panel on Integrated Guidelines for Cardiovascular Health and Risk Reduction in Children and Adolescents. Pediatrics 2011;128:S213 2. NCEP Expert Panel. Circulation 2004;110:227 Current Interpretive Data was last revised on 2018. Triglycerides 60 <=149 mg/dL COBY Comment: Interpretive Data Ages < or = 9 years Acceptable: <75 mg/dL Borderline high: 75-99 mg/dL High: >or= 100 mg/dL Ages 10 to 20 years Acceptable: <90 mg/dL Borderline high: 90-129 mg/dL High: >or= 130 mg/dL Ages > or = 20 years Desirable: <150 mg/dL Borderline high: 150-199 mg/dL High: 200-499 mg/dL Very high: >or= 499 mg/dL Literature References: 1. Expert Panel on Integrated Guidelines for Cardiovascular Health and Risk Reduction in Children and Adolescents. Pediatrics 2011;128:S213 2. NCEP Expert Panel. Circulation 2004;110:227 Current Interpretive Data was last revised on 2018. HDL 66 >=40 mg/dL COBY Comment: Interpretive Data Ages < or = 19 years Acceptable: >45 mg/dL Borderline low: 40-45 mg/dL Low: <40 mg/dL Ages > or = 20 years Desirable: >or= 60 mg/dL Low: <40 mg/dL Literature References: 1. Expert Panel on Integrated Guidelines for Cardiovascular Health and Risk Reduction in Children and Adolescents. Pediatrics 2011;128:S213 2. NCEP Expert Panel. Circulation 2004;110:227 Current Interpretive Data was last revised on 2018. LDL, calculated 23 <=129 mg/dL COBY Comment: Interpretive Data Ages < or = 19 years Acceptable: <110 mg/dL Borderline high: 110-129 mg/dL High: >or= 130 mg/dL Ages > or = 20 years Optimal: <100 mg/dL Near optimal: 100-129 mg/dL Borderline high: 130-159 mg/dL High: >160 mg/dL Calculated using the Berg LDL-C estimating equation. This equation was implemented on 2024. Prior to this date LDL-C was estimated using the Friedewald equation. Literature References: 1. Expert Panel on Integrated Guidelines for Cardiovascular Health and Risk Reduction in Children and Adolescents. Pediatrics 2011;128:S213 2. NCEP Expert Panel. Circulation 2004;110:227 3. Otis M et al. CHARLIE Cardiol. 2020 January 13;5(5):540-548. doi: 10.1001/jamacardio.2020.0013 Current Interpretive Data was last revised on 2024. Non-HDL Cholesterol 37 mg/dL COBY FRANZ Comment: Interpretive Data Ages < or = 19 years Acceptable: <120 mg/dL Borderline high: 120-144 mg/dL High: >145 mg/dL Ages > or = 20 years When triglycerides are >200 mg/dL, Non-HDL cholesterol is a secondary target of therapy with treatment goals that are 30 mg/dL greater than the LDL cholesterol target. Literature References: 1. Expert Panel on Integrated Guidelines for Cardiovascular Health and Risk Reduction in Children and Adolescents. Pediatrics 2011;128:S213 2. NCEP Expert Panel. Circulation 2004;110:227 Current Interpretive Data was last revised on 2018. Chol/HDL ratio 2 COBY Blood 07/05/2024 10:4 5 AM CDT 07/05/2024 10:48 AM CDT Narrative COBY - 07/05/2024 11:38 AM CDT This lipid panel was automatically ordered due to a significant change in Troponin. The dietary status of the patient at the collection time should be correlated with the lipid results. Dewayne Saucedo MD LAB BLOOD ORDERABLES Final Result [facility]BY [facility] [id number] Department [place] [address] from Last 3 Months or Most Recently Relevant to Health Maintenance Insurance MEDICARE MEDICARE MEDICARE [facility] Advance Directives For more information, please contact: [phone] Documents on File Type Date Recorded Patient Assembler Wire Group Expl anation ADVANCE DIRECTIVE 03/28/2018 12:00 AM PALL[employer]I [employer] WILL * Full Code (Latest Code Status on File) Date Activated Date Inactivated Comments 07/05/2024 9:41 AM 07/16/2024 8:50 PM * Full Code Date Activated Date Inactivated Comments 07/06/2019 12:06 PM 07/06/2019 9:38 PM * Full Code Date Activated Date Inactivated Comments 01/13/2018 11:05 AM 01/14/2018 1:10 PM Care Teams Footwear Sales Coordinator Relationship Specialty Start Date End Date Neli Moura DO [facility] [address] [address] PCP - General Family Medicine 03/26/24
--- OUTSIDE RECORDS SUMMARY | 2024-11-04 22:27 | XMS_ITS | Encounter Summary ---
Author Organization [facility] Healthcare Address [address] [place] [address] Care Team Providers Care Early Childhood Worker Name Role Phone Neli Moura DO Primary Care Provider + Reason for Visit * Reason Onset Date Comments Med Refill 10/18/2024 Encounter Details Date Type Department Care Team (Late st Contact Info) Description 10/18/2024 Telephone [facility] Medical Group Cardiology [address] [place] [address] Alfredo Pedraza MD [address] [place], [place] [id number] Med Refill Social History Tobacco Use Types Packs/Day Years Used Date Smoking Tobacco: Never Smokeless Tobacco: Never Alcohol Use Standard Drinks/Week Comments No 0 (1 standard drink = 0.6 oz pur e alcohol) [facility] Utilities Answer Date Recorded In the past 12 months has [employer], gas, oil, or water [employer] threatened to shut off services in your [...] 07/08/2024 How often do you attend chur or spiritism services? Never 07/08/2024 Do you belong to any clubs o r organizations such as yarsani groups, unions, fraternal or athletic groups, or [...] money to buy more. Never true 07/08/20 Within the past 12 months, t he [...] any time in the past 12 m [facility], were you homeless or living in a prison (including now)? No 07/08/2024 Personal Safety Answer Date Recorded Have you ever been in or are you currently in a harmful physical or emotional relationship or is someone making you feel afraid or unsafe? Denies 10/01/2024 Comments No Sex and Gender Information Value Date Recorded Sex Assigned at Not on file Legal Sex Female 2:12 AM INDEPENDENT INSURANCE ADJUSTER Gender Identity Not on file Sexual Orientation Not on file documented as of this encounter Miscellaneous Notes * Telephone Encounter - Alfredo Pedraza MD - 10/20/2024 12:14 PM INDEPENDENT INSURANCE ADJUSTER Yes go ahead and refill PENDENT INSURANCE ADJUSTER * Telephone Encounter - Tanvir Bose MA - 10/18/2024 1:[address] Pedraza, are you ok with refilling? PENDENT INSURANCE ADJUSTER * Telephone Encounter - Wandy Desai - 10/18/2024 11:48 AM CST Patient requesting refill for spironolactone (ALDACTONE) 25 mg and hydrALAZINE (APRESOLINE) 25 mg with 90 day supply. Please send to [facility] pharmacy. Thank you. Contact [phone] PENDENT INSURANCE ADJUSTER documented in this encounter Plan of Treatment Upcoming Encounters Date Type Department Care Team (Latest Contact Info) Description 11/10/2024 8:30 AM INDEPENDENT INSURANCE ADJUSTER Hospital Encounter [facility] Operating Room [address] [place] [address] [place] [address] [facility] [address] [place] [address] Stenosis of left carotid artery 11/10/2024 8:30 AM INDEPENDENT INSURANCE ADJUSTER - 11/10/2024 1:35 PM INDEPENDENT INSURANCE ADJUSTER Surgery [facility] Operating Room [address] [place] [address] [place] [address] [place] [address] LEFT CAROTID ENDARTERECTOMY documented as of this encounter Visit Diagnoses Not on filedocumented in this encounter Care Teams Early Childhood Worker Relationship Specialty Start Date End Date Neli Moura DO [facility] [address] [place] [address] PCP - General Family Medicine 03/26/24 documented as of this encounter
--- OUTSIDE RECORDS SUMMARY | 2024-11-04 22:27 | XMS_ITS | Encounter Summary ---
Author Organization [facility] Care Team Providers Care Labeling Associate Name Role Phone Don Alejandre MD Primary Care Provider [phone] Alona Jones MD Primary Care Provider Attila Pemberton MD Primary Care Provider Kathleen Garcia HAND SAMPLE MAKER Primary Care Provider [phone] Keerthi Ace HAND SAMPLE MAKER Primary Care Provider [phone] Neli Moura DO Primary Care Provider + Encounter Details Date Type Department Care Team (Latest Contact Info) Description 04/13/2018 Orders Only [facility] ProviderKenya MD [address] [place] [address] Social History Tobacco Use Types Packs/Day Years Used Date Smoking Tobacco: Never Assessed Comments Unknown Sex and Gender Information Value Date Recorded Sex Assigned at Not on file Legal Sex Female 2:12 AM COMMERCIAL DRIVER'S LICENSE DRIVER Gender Identity Not on file Sexual Orientation Not on file documented as of this encounter Plan of Treatment Upcoming Encounters Date Type Department Care Team (Latest Contact Info) Description 11/10/2024 8:30 AM COMMERCIAL DRIVER'S LICENSE DRIVER Hospital Encounter [facility] Operating Room [address] [place] [address] [place] [address] [facility] [address] [address] Stenosis of left carotid artery 11/10/2024 8:30 AM COMMERCIAL DRIVER'S LICENSE DRIVER - 11/10/2024 1:35 PM COMMERCIAL DRIVER'S LICENSE DRIVER Surgery [facility] Operating [address] [place] [address] [place] [address] [place] [address] LEFT CAROTID ENDARTERECTOMY documented as of this encounter Procedures Procedure Name Priority Date/Time Associated Diagnosis Comments SCAN - LABS 04/13/2018 12:00 AM CDT documented in this encounter Results * SCAN - LABS (04/13/2018 12:00 AM CDT) Narrative 04/13/2018 12:00 AM CDT Ordered by an unspecified provider. us Historical Provider Final Res ult documented in this encounter Visit Diagnoses Not on filedocumented in this encounter Care Teams Labeling Associate Relationship Specialty Start Date End Date Don Alejandre MD [address] [place] [address] PCP - General Family Practice 02/16/18 06/13/19 Alona Jones MD [address] [place] [address] PCP - General Family Medicine 06/14/19 11/12/20 Attila Pemberton MD [address] [place] [address] PCP - General Family Practice 11/13/20 12/13/21 Kathleen Garcia NP [address] [place] [address] PCP - General Nurse Practitioner 12/14/21 04/02/23 Keerthi Ace, HAND SAMPLE MAKER [address] [place] [address] PCP - General Family Medicine 04/03/23 03/25/24 Neli Moura DO [address] [facility] [address] [place], [place] [id number] PCP - General Family Medicine 03/26/24 documented as of this encounter
--- OUTSIDE RECORDS SUMMARY | 2024-11-04 22:27 | XMS_ITS | Clinical Summary ---
Author Organization [facility] Address [address] [place] [address] Care Team Providers Care Crisis Intervention Counselor Name Role Phone Jeffy Penaloza MD Primary Care Provider Allergies No known active allergies Medications folic acid 1 MG tablet Take 3 mg by mouth. Active valsartan 320 MG tablet Take 320 mg by mouth daily. Active nebivolol 20 MG tablet Take 20 mg by mouth 2 (two) times a day. Active hydrALAZINE 50 MG tablet Take 1 tablet by mouth 4 (four) times daily. Active amLODIPine 5 MG tablet Take 5 mg by mouth. Active levothyroxine 88 MCG tablet Take 88 mcg by mouth every morning. Active clopidogrel 75 MG tabletIndication s:on hold since 06/09 Take 75 mg by mouth daily. Indications: on hold since 06/09 Active busPIRone 10 MG tablet Take 10 mg by mouth 3 (three) times daily as needed. Active atorvastatin 40 MG tablet Take 40 mg by mouth nightly at bedtime. Active ezetimibe 10 MG tablet Take 10 mg by mouth daily. Active aspirin EC (ASPIRIN EC) 81 MG tablet Take 81 mg by mouth daily. Active oxyCODONE-acetam inophen (PERCOCET) 10-325 MG tabletIndication s:Acute Pain < 3 Day Supply Take 1 tablet by mouth every 6 (six) hours as needed for Pain. Indications: Acute Pain < 3 Day Supply 12 tablet 4 Active ELIQUIS 5 MG tablet Take 1 tablet (5 mg total) by mouth every 12 (twelve) hours. Active acetaminophen (TYLENOL) [address] 1 suppository (325 mg total) rectally every 4 (four) hours as needed for Fever. Active albuterol sulfate HFA 108 (90 Base) MCG/ACT inhaler Inhale 2 puffs into the lungs every 6 (six) hours as needed for Wheezing. Active amiodarone (PACERONE) 200 MG tablet Take 1 tablet (200 mg total) by mouth daily. Active Cyanocobalamin (B-12) 50 MCG Tab Active Vitamin D3 (VITAMIN D) 50 mcg tablet Take 1 tablet (50 mcg total) by mouth daily. Active furosemide (LASIX) 20 MG tablet Take 2 tablets (40 mg total) by mouth daily. Active HYDROcodone-acet aminophen (NORCO) 5-325 MG tablet Take 1 tablet by mouth every 6 (six) hours as needed for Pain. Active magnesium oxide (MAG-OX) 250 MG tablet Take 1 tablet (250 mg total) by mouth daily. Active meclizine (ANTIVERT) 25 MG tablet Take 1 tablet (25 mg total) by mouth 3 (three) times daily as needed. Active pantoprazole EC (PROTONIX) 20 MG tablet Take 1 tablet (20 mg total) by mouth daily. 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 Brilinta is expensive and therefore will switch to Plavix 75 mg daily. I will prescribe patient sublingual nitroglycerin to be taken as needed for chest pain. Will reassess her symptoms next visit. 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 Discussed R/B/A of anti-VEGF but given severely diminished visual acuity (VA) and chronicity of at least 6 months , patient wishes to defer. Monitor Macular degeneration of both eyes 01/28/2022 Hypertensive heart disease w ith heart failure ([facility]) 05/28/2021 Hyponatremia 05/28/2021 Pigmentary glaucoma of both eyes, 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 Premature atrial contractions 07/23/2019 Hypertension 03/22/2019 History of carotid artery disease 10/14/2017 Dyspnea on exertion 09/23/2017 Overview (11/04/2023): Last Assessment & Plan: She has underlying asthma. Multifactorial. Mild pulmonary hypertension as well. Mixed hyperlipidemia 09/23/2017 Overview (11/04/2023): Last Assessment & Plan: Continue Lipitor. Arthralgia of ankle 07/04/2017 Sprain of calcaneofibular ligament of ankle 05/16 Pain of foot 03/14/2017 Diabetic peripheral neuropat hy associated with type 2 diabetes mellitus ([facility]) 05/31/2016 Hammer toe 05/31/2016 Ulcer of toe ([facility]) 05/31/2016 Keratoconjunctivitis sicca 10/17/2015 Bony pelvic pain 01/02/2015 Abnormal mammogram 09/30/2014 Knee pain 01/14/2014 Pigmentary degeneration of iris 12/09/2011 Diabetes mellitus ([facility]) 07/25/2011 Osteoarthrosis 05/13/2011 Rheumatoid arthritis involvi ng multiple sites ([facility]) 01/12/2011 Overview (11/04/2023): Description: Rheumatoid Arthritis Trochanteric bursitis 01/12/2011 Overview (11/04/2023): Description: Trochanteric Bursitis Gastroesophageal reflux disease 11/03/2010 Irritable bowel syndrome 11/03/2010 Pseudophakia 08/23/2010 Immunizations Name Administration Dates Next Due Fluzone High Dose - >Age 65 (Prefilled Syringe) 07/04/2020,07/14/2019,07/29/2018,2015,06/20/2015 Influenza (Generic) 06/21/2008 Influenza Adult (Generic) 07/14/2019,,07/08/2016,2014 Pneumococcal (Generic) 07/12/2012 Pneumococcal (Prevnar 13) 07/08/2016 Pneumococcal Vaccine 07/12/2012 Tdap (Generic) 06/19/2023,07/19/2013 Social History Tobacco Use Types Packs/Day Years Used Date Smoking Tobacco: Never Smokeless Tobacco: Never Tobacco Cessation:Counseling Given: No Alcohol Use Standard Drinks/Week Comments Never 0 (1 standard drink = 0.6 oz pur e alcohol) AUDIT-C Answer Date Recorded Q1: How often do you have a drink containing alc ohol? Never 06/12/2020 Average Number of Drinks Not on file 020 Frequency of Binge Drinking Not on file 05/17 Comments No Sex and Gender Information Value Date Recorded Sex Assigned at Not on file Legal Sex Female 9:30 AM CDT Gender Identity Not on file Sexual Orientation Not on file Last Filed Vital Signs Vital Sign Reading Time Taken Comments Blood Pressure 126/74 11/04/2023 10:36 AM INVENTORY ANALYST Pulse 72 11/04/2023 10:36 AM INVENTORY ANALYST Temperature 36.8 C (98.2 F) 11/04/2023 10:36 AM INVENTORY ANALYST Respiratory Rate 18 11/04/2023 10:36 AM INVENTORY ANALYST Oxygen Saturation 96% 11/04/2023 10:36 AM INVENTORY ANALYST Inhaled Oxygen Concentration - - Weight 63.5 kg (140 lb) 11/04/2023 10:36 AM INVENTORY ANALYST Height 149.9 cm (4' 11 ) 11/04/2023 10:36 AM INVENTORY ANALYST Body Mass Index 28.28 11/04/2023 10:36 AM INVENTORY ANALYST Plan of Treatment Health Maintenance Due Date Last Done Comments ASCVD LDL 1943 ASCVD Statin 1943 Kidney Health Evaluation 1943 Hemoglobin A1C 1943 Lipid Panel 1943 PHQ-2 (Physician [place]) 1955 Diabetes: Retinopathy Eye Exam 1961 Zoster Vaccines (1 of 2) 1993 Annual Medicare Wellness Visit 01/06/2008 Dexa Scan (General) 01/06/2008 Pneumococcal Vaccine: 65+ Years (2 of 2 - PPSV23 or PCV20) 09/02/2016 07/08/2016 RSV Immunization or 60+ Years (1 - 1-dose 75+ series) 2018 COVID-19 Vaccine ( season) 2024 07/04/2023, 06/13/2022, 12/25/2021, Additional history exists Influenza Adult (#1) 2024 07/04/2020, 07/14/2019, 07/14/2019, Additional history exists PHQ-2 (Physician [place]) 09/15/2024 DTaP, Tdap and Td Vaccines (3 - Td or Tdap) 06/19/2033 06/19/2023, 07/19/2013 Meningococcal B Vaccine Aged Out No l onger eligible based on patient's age to complete this topic Meningococcal Vaccine Aged Out No cecily nuzhat eligible based on patient's age to complete this topic RSV Immunizations Under 20 Months Aged Out No longer eligible based on patient's age to complete this topic Insurance MEDICARE [facility] Advance Directives Documents on File Type Date Recorded Patient Accounts Receivable Collector Expl anation Power of Dispensary Technician 10/29/2023 4:40 PM POA P aperwork * Full Code (Latest Code Status on File) Date Activated Date Inactivated Comments 12/22/2020 8:59 AM 12/22/2020 1:37 PM Care Teams Crisis Intervention Counselor Relationship Specialty Start Date End Date Jeffy Penaloza MD [address] [place] [address] PCP - General INTERNAL MEDICINE 06/12/20
--- OUTSIDE RECORDS SUMMARY | 2024-11-04 22:27 | XMS_ITS | Referral Summary ---
Author Organization [facility] Address [address] [place] [address] Care Team Providers Care Emergency Vehicle Technician Name Role Phone Neli Moura DO Primary Care Provider + Encounters Date Type Department Care Team Description 11/02/2024 Telephone [facility] Medical [facility] Cardiology [address] [facility] [address] [place] [phone] Alfredo Pedraza MD 10/25/2024 Telephone [facility] Cardiology [address] [facility] [address] [place] [phone] Mae Mac MA Med Refill 10/22/2024 Telephone [facility] Surgery [address] [place] [address] Medical Office Building [address] [place] [phone] Dayana Neal RMA Scheduling Appointments 10/18/2024 Telephone [facility] Cardiology [address] [facility] [address] [place] [phone] Alfredo Pedraza MD Med Refill 10/08/2024 Telephone [facility] Surgery [address] [place] [address] Medical Office Building [address] [place] [phone] Carolina Maria NP 10/06/2024 Telephone [facility] Surgery [address] [place] [address] Medical Office Building [address] [place] [phone] Dayana Neal RMA Med Management 10/04/2024 Telephone [facility] Cardiology [address] [place] [address] Alfredo Pedraza MD 10/02/2024 8:18 AM BOARDING HOUSE MANAGER - 10/02/2024 4:06 PM BOARDING HOUSE MANAGER Emergency [facility] Emergency Department [id number] [place] [id number] Dawson Reyez MD Chest tightness (Primary Dx); Accelerated hypertension Discharge Disposition: Discharge to home or self care 09/29/2024 Telephone [facility] Group Cardiology [address] [facility] [address] [place] [phone] Alfredo Pedraza MD 09/29/2024 Telephone [facility] Surgery [address] [place] [address] Medical Office Building [address] [place] [phone] Dayana Neal RMA Surgery Confirmation 09/17/2024 11:59 PM BOARDING HOUSE MANAGER Anesthesia Event [facility] Operating Room [address] [place] [address] Andi Benedict MD 09/17/2024 10:00 AM BOARDING HOUSE MANAGER Pre-Admission Testing [facility] Center for Preoperative Assessment and Planning [facility]) [address] [place] [id number] Preoperative testing (Primary Dx) 09/06/2024 Telephone [facility] Surgery [address] [place] [address] Medical Office Building [address] [place] [phone] Carolina Maria NP 08/30/2024 1:15 PM BOARDING HOUSE MANAGER Office Visit [facility] Group Cardiology [address] [facility] [address] [place] [phone] Alfredo Pedraza MD PAF (paroxysmal atrial fibrillation) (CMS/HCC) (HCC) (Primary Dx); Coronary artery disease involving [place] coronary artery of [place] heart with angina pectoris (HCC); History of carotid artery disease; Mixed hyperlipidemia; Hypertensive heart disease with heart failure (CMS/HCC) (HCC) 08/19/2024 12:25 PM BOARDING HOUSE MANAGER - 08/19/2024 11:59 PM BOARDING HOUSE MANAGER Hospital Encounter [facility] [address] [place] [address] Carotid atherosclerosis, bilateral Discharge Disposition: Discharge to home or self care 08/16/2024 11:15 AM BOARDING HOUSE MANAGER Office Visit [facility] Surgery [address] [facility] Medical Office Building [address], [place] [phone] Boby Hernandez MD Bilateral carotid artery stenosis (Primary Dx); Carotid atherosclerosis, bilateral; Coronary artery disease due to calcified coronary lesion 08/16/2024 10:00 AM BOARDING HOUSE MANAGER - 08/16/2024 11:59 PM BOARDING HOUSE MANAGER Hospital Encounter [facility] Vascular Lab [address] [place] [address] Bilateral carotid artery stenosis Discharge Disposition: Discharge to home or self care from Last 3 Months Allergies No known active allergies Medications busPIRone (BUSPAR) 10 mg tabletIndicatio ns:Generalized Anxiety Disorder Take 1 tablet (10 mg total) by mouth 2 (two) times a day Active levothyroxine (SYNTHROID, LEVOTHROID) 88 mcg tabletIndicatio ns:hypothyroidi sm Take 1 tablet (88 mcg total) by mouth 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 Active aspirin 81 mg tabletIndicatio [...] mg tabletIndicatio ns:PAF (paroxysmal atrial fibrillation) (CMS/HCC) ([facility]) Take 1 tablet (200 mg total) by mouth daily 90 tablet 3 024 Active Additional Information Patient taking differently:200 mg oralEvery morning, Indications: Cardioversion of Atrial Fibrillation, Informant: Self, Reported on 09/17/2024 magnesium oxide (MAG-OX) 400 mg (241.3 mg elemental magnesium) tabletIndicatio ns:Paroxysmal atrial fibrillation (CMS/HCC) ([facility]) TAKE 1 TABLET (400 MG TOTAL) BY MOUTH EVERY MORNING 90 tablet 3 024 Active folic acid (FOLVITE) 1 mg tabletIndicatio ns:Rheumatoid arthritis involving multiple sites (CMS/HCC) ([facility]) Take 3 tablets (3,000 mcg total) by mouth daily 270 tablet 1 024 Active Additional Information Patient taking differently:3,000 mcg oralEvery morning, Indications: Folate Deficiency, Informant: Self, Reported on 09/17/2024 ferrous sulfate 325 mg (65 mg of elemental iron) tabletIndicatio ns:Iron Deficiency Anemia,OTC Take 1 tablet (325 mg total) by mouth every morning Active Linzess 145 mcg capsuleIndicati ons:functional constipation Take 1 capsule (145 mcg total) by mouth every morning [address] (PROTONIX) 40 mg EC [...] for up to 45 doses 45 tablet Active nebivoloL (BYSTOLIC) 2.5 mg tablet Take [...] 09/28/2024 Assessment & Plan (09/28/2024 9:18 AM BOARDING HOUSE MANAGER): - Diastolic dysfunction w/o CHF. Diastolic function: stage I - impaired relaxation LVEF: >70% Asthma 09/28/2024 Assessment & Plan (09/28/2024 9:29 AM BOARDING HOUSE MANAGER): - Continue home albueterol and advair - IS - OOB when able Carotid stenosis 08/16/2024 Assessment & Plan (09/28/2024 9:20 AM BOARDING HOUSE MANAGER): 09/28: s/p Left carotid endarterectomy - OU, Q2 hr NM checks - SBP goal 110-150 - Bedrest overnight, OOB POD #1 - Clear liquid diet, advance in am - DC Toro in am - Pain control - Monitor incisions for bleeding/hematoma - IS PAF (paroxysmal atrial fibrillation) ([facility]) 0 05/12/2023 Assessment & Plan (09/28/2024 9:20 AM BOARDING HOUSE MANAGER): Home regimen: amiodarone, Eliquis - continue amiodarone [...] 03/22/2019 Assessment & Plan (09/28/2024 9:22 AM BOARDING HOUSE MANAGER): - Home regimen: hydralazine, losartan, nebivolol, spirnolactone [...] agrees. Assessment & Plan (09/23/2017 1:48 PM BOARDING HOUSE MANAGER): Negative Lexiscan nuclear stress test back in August 2017. She does have strong family history for coronary artery disease. Will re-evaluate next visit. Evidence of type 1 diastolic dysfunction on echocardiogram. Mixed hyperlipidemia 09/23/2017 Assessment & Plan (02/16/2018 9:11 AM CDT): Continue Lipitor. Assessment & Plan (12/29/2017 1:10 PM CDT): Continue Lipitor 40 mg p.o. daily. Assessment & Plan (09/23/2017 1:49 PM BOARDING HOUSE MANAGER): L continue Lipitor. 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 Diabetes mellitus 07/25/2011 Assessment & Plan (09/28/2024 9:20 AM BOARDING HOUSE MANAGER): HgbA1c 5.6, not on any home medications - Monitor glucose with daily labs - Carb consistent diet when eating Osteoarthritis 05/13/2011 Trochanteric bursitis 01/12/2011 Overview (12/26/2017): Description: Trochanteric Bursitis Rheumatoid arthritis 01/12/2011 Overview (12/26/2017): Description: Rheumatoid Arthritis Irritable bowel syndrome 11/03/2010 Gastroesophageal reflux disease 11/03/2010 Pseudophakia 08/23/2010 Coronary artery disease invo lving [place] coronary artery of [place] heart with angina pectoris Assessment & Plan (09/28/2024 9:15 AM BOARDING HOUSE MANAGER): S/p RCA stenting 07/08 - continue ASA, [...] (06/25/2019): Added automatically from request for surgery [id number] Chest pain 06/25/2019 10/29/2021 Overview (06/25/2019): Added automatically from request for surgery [id number] Essential hypertension, malignant 09/23/2017 03/22/2019 Assessment & Plan (02/16/2018 9:10 AM CDT): Blood pressure is much better controlled. Continue current treatment. Assessment & Plan (12/29/2017 1:10 PM CDT): Blood pressure well controlled. Continue current treatment. Assessment & Plan (09/23/2017 1:48 PM BOARDING HOUSE MANAGER): Blood pressure is controlled today however patient states that her blood pressure runs high at home. I will bring patient 2 weeks and re-evaluate her blood pressure as well as re-evaluate her blood pressure log. I asked the patient also to bring her blood pressure machine to compare her home reading with our readings here. Immunizations Immunization Administration Dates Next Due COVID-19 mRNA (Novawise) 0.3 m L (30 mcg) vaccine (12 years and up) 07/16/2024 Influenza, Trivalent, High D ose, Split, Preservative Free, Intramuscular 07/16/2024 Influenza, Trivalent, Preservative Free, Intramu scular 06/21/2008 Tdap 07/19/2013 Social History Tobacco Use Types Packs/Day Years Used Date Smoking Tobacco: Never Smokeless Tobacco: Never Tobacco Cessation:Counseling Given: Not Answered Alcohol Use Standard Drinks/Week Comments No 0 (1 standard drink = 0.6 oz pur e alcohol) [facility] Utilities Answer Date Recorded In the past 12 months has [employer], [employer], oil, or water [facility] [employer] threatened to shut off services in your [...] How often do you attend chur or evangelical services? Never 07/08/2024 Do you belong to any clubs o r organizations such as lutheran groups, unions, fraternal or athletic groups, or [...] any time in the past 12 m [facility], were you homeless or living in a long term (including now)? No 07/08/2024 Personal Safety Answer Date Recorded Have you ever been in or are you currently in a harmful physical or emotional relationship or is someone making you feel afraid or unsafe? Denies 10/01/2024 Comments No Sex and Gender Information Value Date Recorded Sex Assigned at Not on file Legal Sex Female 2:12 AM BOARDING HOUSE MANAGER Gender Identity Not on file Sexual Orientation Not on file Last Filed Vital Signs Vital Sign Reading Time Taken Comments Blood Pressure 147/49 10/02/2024 3:30 PM BOARDING HOUSE MANAGER Pulse 59 10/02/2024 3:30 PM BOARDING HOUSE MANAGER Temperature 36.6 C (97.8 F) 10/01/2024 11:41 PM BOARDING HOUSE MANAGER Respiratory Rate 12 10/02/2024 3:30 PM BOARDING HOUSE MANAGER Oxygen Saturation 98% 10/02/2024 8:45 AM BOARDING HOUSE MANAGER Inhaled Oxygen Concentration - - Weight 59 kg (130 lb) 10/01/2024 11:41 PM BOARDING HOUSE MANAGER Height 149.9 cm (4' 11 ) 10/01/2024 11:41 PM BOARDING HOUSE MANAGER Body Mass Index 26.26 10/01/2024 11:41 PM BOARDING HOUSE MANAGER Plan of Treatment Upcoming Encounters Date Type Department Care Team (Latest Contact Info) Description 11/10/2024 8:30 AM BOARDING HOUSE MANAGER Hospital Encounter [facility] Operating Room 1 [place] [address] [place] [id number] [address] [facility] [address] [address] Stenosis of left carotid artery 11/10/2024 8:30 AM BOARDING HOUSE MANAGER - 11/10/2024 1:35 PM BOARDING HOUSE MANAGER Surgery [facility] Operating Room [address] [place] [address] [place] [address] [address] [facility] [address] [address] LEFT CAROTID ENDARTERECTOMY Medical Devices Implanted Type Area Hcc Coders Device Identifier Shelf Expiration Date Model / Serial / Lot [employer] Cuauhtemoc Stent Coronary Drug Eluting Rapid Exchange Synergy Megatron 3.63f78uw [place] [employer] [id number] - [id number] Implanted:Qty: 1 on 07/06/2024 by Alfredo Pedraza MD at [facility] [employer] Cuauhtemoc 11/19/2025 [id number] 350 / / [id number] [employer] Cuauhtemoc Stent Drug Eluting S Megatron 3.50x8mm [id number] - [id number] Implanted:Qty: 1 on 07/06/2024 by Alfredo Pedraza MD at [facility] [facility] 07/07/2025 [id number] 350 / / [id number] [employer] [facility] Angio-Seal Vip 6fr Closere Device [id number] - [id number] Implanted:Qty: 1 on 07/06/2024 by Alfredo Pedraza MD at [facility] [employer] [facility] [id number] / / Procedures Procedure Name Priority Date/Time Associated Diagnosis Comments TROPONIN T HIGH-SENSITIVITY 2-HOUR STAT 10/02/2024 1:47 PM BOARDING HOUSE MANAGER TROPONIN T HIGH-SENSITIVITY SERIES (BASELINE, 2HR, 4HR, 6HR) STAT 10/02/2024 10:14 AM BOARDING HOUSE MANAGER DE CRITICAL CARE ILL/INJURED PATIENT INIT 30-74 MIN Routine 10/02/2024 9:59 AM BOARDING HOUSE MANAGER EGFR STAT 10/01/2024 11:52 PM BOARDING HOUSE MANAGER DIFFERENTIAL AUTO STAT 10/01/2024 11: 52 PM BOARDING HOUSE MANAGER TROPONIN T HIGH-SENSITIVITY SERIES (BASELINE, 2HR, 4HR, 6HR) STAT 10/01/2024 11:52 PM BOARDING HOUSE MANAGER COMPREHENSIVE METABOLIC PANEL STAT 10/01/2024 11:52 PM BOARDING HOUSE MANAGER CBC WITH AUTO DIFFERENTIAL STAT 10/01/2024 11:52 PM BOARDING HOUSE MANAGER ECG 12-LEAD Routine 10/01/2024 11:45 PM BOARDING HOUSE MANAGER EGFR Routine 09/17/2024 12:20 PM BOARDING HOUSE MANAGER Preoperative testing COMPREHENSIVE METABOLIC PANEL Routine 09/17/2024 12:20 PM BOARDING HOUSE MANAGER Preoperative testing CBC WITHOUT DIFFERENTIAL Routine 09/17/2024 12:20 PM BOARDING HOUSE MANAGER Preoperative testing TYPE AND SCREEN 14 DAY Routine 09/17/2024 12:20 PM BOARDING HOUSE MANAGER Preoperative testing CTA HEAD NECK W WO CONTRAST Schedule Routine, Read Routine (OP Routine) 08/19/2024 12:43 PM BOARDING HOUSE MANAGER Carotid atherosclerosis, bilateral US CAROTIDS DUPLEX BILATERAL Schedule Routine, Read Routine (OP Routine) 08/16/2024 11:13 AM BOARDING HOUSE MANAGER Bilateral carotid artery stenosis HEMOGLOBIN A1C Routine 07/06/2024 12:14 AM CDT LIPID PANEL Timed 07/05/2024 10:45 AM CDT from Last 3 Months or Most Recently Relevant to Health Maintenance Results * (ABNORMAL) Troponin T high-sensitivity 2-hour (10/02/2024 1:47 PM BOARDING HOUSE MANAGER) Trop T hs 29(H) <=14 ng/L Comment: Interpretive Data For further hscTnT resources including the diagnostic algorithm and an aid in interpretation, copy and paste this link: https://nrl.testcatalog.org/show/hsTrop Current Interpretive Data last revised 2020. Trop T hs delta See Comment ng/L [facility] Comment:Inappropriate collec tion time to report a delta. Trop T hs pct delta See Comment % [facility] Comment:Inappropriate collec tion time to report a delta. Trop T hs interp See Comment [facility] Comment:Inappropriate collec tion time to report a delta. Blood 10/02/2024 1:47 PM BOARDING HOUSE MANAGER 10/02/2024 1:52 PM BOARDING HOUSE MANAGER us Dawson Reyez MD LAB BLOOD ORDERABLES F inal Result [facility] [address] Department [place] [address] * (ABNORMAL) Troponin T high-sensitivity series (baseline, 2hr, 4hr, 6hr) (10/02/2024 10:14 AM BOARDING HOUSE MANAGER) Trop T hs 22(H) <=14 ng/L Comment: Slight hemolysis may result in decreased troponin measurement. Consider recollection. Interpretive Data For further hscTnT resources including the diagnostic algorithm and an aid in interpretation, copy and paste this link: https://nrl.testcatalog.org/show/hsTrop Current Interpretive Data last revised 2020. Blood 10/02/2024 10:1 4 AM BOARDING HOUSE MANAGER 10/02/2024 10:14 AM BOARDING HOUSE MANAGER us Dawson Reyez MD LAB [place]LOOD [place] [address] [address] Department [place] [address] * DE CRITICAL CARE ILL/INJURED PATIENT INIT 30-74 MIN (10/02/2024 9:59 AM BOARDING HOUSE MANAGER) Narrative Dawson Reyez MD - 10/02/2024 9:59 AM BOARDING HOUSE MANAGER Dawson Reyez MD 10/02/2024 2:21 PM Critical [...] (baseline, 2hr, 4hr, 6hr) (10/01/2024 11:52 PM BOARDING HOUSE MANAGER) Trop T hs 29(H) <=14 ng/L Comment: Interpretive Data For further hscTnT resources including the diagnostic algorithm and an aid in interpretation, copy and paste this link: https://nrl.testcatalog.org/show/hsTrop Current Interpretive Data last revised 2020. Blood 10/01/2024 11:5 2 PM BOARDING HOUSE MANAGER 10/02/2024 12:01 AM BOARDING HOUSE MANAGER us Dewayne Saucedo MD LAB BLOOD ORDERABLES Edited Result - Final [facility] [address] [facility] Department [place] [address] * eGFR (10/01/2024 11:52 PM BOARDING HOUSE MANAGER) eGFR 75 >=60 mL/min/1. 73 m2 Comment: [...] reviewed 2021. Blood 10/01/2024 11:5 2 PM BOARDING HOUSE MANAGER 10/02/2024 12:21 AM BOARDING HOUSE MANAGER us Dewayne Saucedo MD LAB BLOOD ORDERABLES Final Result [facility] [address] [address] Department [place] [address] * Differential, auto (10/01/2024 11:52 PM BOARDING HOUSE MANAGER) Neutrophil abs 4.2 1.5 - 6.5 K/cumm Imm gran abs 0.0 0.0 - 0.1 K/cumm [facility] Lymphocyte abs 2.2 0.8 - 3.3 K/cumm [facility] Monocyte abs 0.5 0.2 - 0.8 K/cumm [facility] Eosinophil abs 0.0 0.0 - 0.5 K/cumm [facility] Basophil abs 0.1 0.0 - 0.1 K/cumm [facility] Neutrophil pct 60.4 % [facility] Comment: Interpretive Data Percent cell count reference ranges are not reported, since discordance with absolute values may lead to misinterpretation of CBC data. Current Interpretive Data was last revised on 2017. Imm gran pct 0.3 % [facility] Comment: Interpretive Data Percent cell count reference ranges are not reported, since discordance with absolute values may lead to misinterpretation of CBC data. Current Interpretive Data was last revised on 2017. Lymphocyte pct 31.6 % [facility] Comment: Interpretive Data Percent cell count reference ranges are not reported, since discordance with absolute values may lead to misinterpretation of CBC data. Current Interpretive Data was last revised on 2017. Monocyte pct 6.6 % [facility] Comment: Interpretive Data Percent cell count reference ranges are not reported, since discordance with absolute values may lead to misinterpretation of CBC data. Current Interpretive Data was last revised on 2017. Eosinophil pct 0.4 % [facility] Comment: Interpretive Data Percent cell count reference ranges are not reported, since discordance with absolute values may lead to misinterpretation of CBC data. Current Interpretive Data was last revised on 2017. Basophil pct 0.7 % [facility] Comment: Interpretive Data Percent cell count reference ranges are not reported, since discordance with absolute values may lead to misinterpretation of CBC data. Current Interpretive Data was last revised on 2017. Blood 10/01/2024 11:5 2 PM BOARDING HOUSE MANAGER 10/02/2024 12:01 AM BOARDING HOUSE MANAGER Dewayne Saucedo MD LAB BLOOD ORDERABLES Final Result Performing Organization Address City/[facility]/ZIP Co de Phone Number [facility] [address] [address] [employer] [place] [address] * (ABNORMAL) CBC with auto differential (10/01/2024 11:52 PM BOARDING HOUSE MANAGER) Pathologist [facility] WBC 7.0 3.8 - 9.9 K/cumm Hgb 9.5(L) 11.9 - 15.5 g/dL [facility] Hct 29.0(L) 35.6 - 45.5 % [facility] Plt 203 150 - 400 K/cumm [facility] MPV 9.6 9.1 - 12.3 fL [facility] RBC 3.06(L) 3.90 - 5.20 M/cumm [facility] MCV 94.8 81.3 - 96.4 fL [facility] MCH 31.0 27.1 - 33.3 pg [facility] MCHC 32.8 32.3 - 35.7 g/dL [facility] RDW CV 12.5 11.1 - 14.9 % [facility] RDW SD 42.7 35.7 - 48.1 fL [facility] NRBC abs 0.00 0.00 - 0.01 K/cumm [facility] Blood (Blood, Venous) 10/01/2024 11:52 PM BOARDING HOUSE MANAGER 10/02/2024 12:01 AM BOARDING HOUSE MANAGER Dewayne Saucedo MD LAB BLOOD ORDERABLES Final Result Performing Organization Address [facility]/ZIP Co de Phone Number [facility] [address] [address] [place] [address] * (ABNORMAL) Comprehensive metabolic panel (10/01/2024 11:52 PM BOARDING HOUSE MANAGER) Sodium 130(L) 135 - 145 mmol/L Potassium, [...] [facility] Blood 10/01/2024 11:5 2 PM BOARDING HOUSE MANAGER 10/02/2024 12:01 AM BOARDING HOUSE MANAGER us Dewayne Saucedo MD LAB BLOOD ORDERABLES Final Result [facility] [address] Department [place] [address] * ECG 12 lead (10/01/2024 11:45 PM BOARDING HOUSE MANAGER) 10/01/2024 11:4 5 PM BOARDING HOUSE MANAGER Narrative [facility] - 10/02/2024 12:51 PM BOARDING HOUSE MANAGER Vent Rate: 51 bpm RR Interval: 1170 msec DE Interval: 205 msec QRS Duration: 90 msec QT Interval: 465 msec QTC Interval: 441 msec P-R-T [place]: 68 - -38 - 23 degrees IMPRESSION: SINUS BRADYCARDIA VOLTAGE CRITERIA FOR LVH Electronically Signed By: Jerrod Blackwell MD, [facility] Dewayne Saucedo MD ECG ORDERABLES Final Resul t Performing Organization Address [facility] Co de Phone Number [facility] * TYPE AND SCREEN 14 DAY (09/17/2024 12:20 PM BOARDING HOUSE MANAGER) Pathologist [facility] ABO Rh O Positive Caitie, indirect Negative [facility] Blood 09/17/2024 12:2 0 PM BOARDING HOUSE MANAGER 09/17/2024 1:11 PM BOARDING HOUSE MANAGER Narrative [facility] - 09/17/2024 2:19 PM BOARDING HOUSE MANAGER Is this test being ordered in advance for a procedure?->Yes Expected date of procedure:->09/28/24 Has the patient been transfused in the past 3 months?->No Has the patient been in the past 3 months?->No Andi Benedict MD LAB BLOOD BANK TEST ORDERABL ES Final Result Performing Organization Address [facility] de Phone Number [facility] Department [place] [address] * eGFR (09/17/2024 12:20 PM BOARDING HOUSE MANAGER) eGFR 69 >=60 mL/min/1. 73 m2 Comment: [...] reviewed 2021. Blood 09/17/2024 12:2 0 PM BOARDING HOUSE MANAGER 09/17/2024 12:54 PM BOARDING HOUSE MANAGER us Andi Benedict MD LAB BLOOD ORDERABLES Final R esult [facility] Department [place] [address] * (ABNORMAL) CBC without differential (09/17/2024 12:20 PM BOARDING HOUSE MANAGER) WBC 10.3(H) 3.8 - 9.9 K/cumm Hgb 12.7 11.9 - 15.5 g/dL [facility] Hct 37.0 35.6 - 45.5 % [facility] Plt 260 150 - 400 K/cumm [facility] MPV 10.5 9.1 - 12.3 fL [facility] RBC 4.17 3.90 - 5.20 M/cumm [facility] MCV 88.7 81.3 - 96.4 fL [facility] MCH 30.5 27.1 - 33.3 pg [facility] MCHC 34.3 32.3 - 35.7 g/dL [facility] [facility] R[facility] CV 13.3 11.1 - 14.9 % [facility] R[facility] SD 42.7 35.7 - 48.1 fL [facility] NRBC abs 0.00 0.00 - 0.01 K/cumm [facility] Blood 09/17/2024 12:2 0 PM BOARDING HOUSE MANAGER 09/17/2024 12:55 PM BOARDING HOUSE MANAGER us Andi Benedict MD LAB BLOOD ORDERABLES Final R esult Performing Organization Address [facility]/State/ZIP Co de Phone Number [facility] [place] [address] * (ABNORMAL) Comprehensive metabolic panel (09/17/2024 12:20 PM BOARDING HOUSE MANAGER) Sodium 130(L) 135 - 145 mmol/L Potassium, pl 4.2 3.3 - 4.9 mmol/L [facility] Chloride 95(L) 97 - 110 mmol/L [facility] CO2 23 22 - 32 mmol/L [facility] Anion gap 12 2 - 15 mmol/L [facility] BUN 12 6 - 25 mg/dL [facility] Creatinine 0.85 0.60 - 1.10 mg/dL [facility] Glucose 88 70 - 199 mg/dL [facility] Comment: Interpretive Data Fasting glucose >/= 126 [...] 2022. Calcium 9.3 8.5 - 10.3 mg/dL [facility] Bilirubin, total 1.2 0.1 - 1.2 mg/dL [facility] Protein, pl 7.1 6.5 - 8.5 g/dL [facility] Albumin 4.4 3.5 - 5.0 g/dL [facility] Alk phos 81 40 - 130 Units/L [facility] ALT 19 7 - 45 Units/L [facility] AST 27 10 - 45 Units/L [facility] Blood 09/17/2024 12:2 0 PM BOARDING HOUSE MANAGER 09/17/2024 12:54 PM BOARDING HOUSE MANAGER Andi Benedict MD LAB BLOOD ORDERABLES Final R esult [facility] [place] [address] * CTA Head Neck W WO Contrast (08/19/2024 12:43 PM BOARDING HOUSE MANAGER) Anatomical Region Laterality Modality Head and Neck N/A Computed Tomogra phy 08/19/2024 1:47 PM BOARDING HOUSE MANAGER Narrative 08/19/2024 2:07 PM BOARDING HOUSE MANAGER EXAM DESCRIPTION: CTA HEAD NECK W WO [...] OTHER: No other significant abnormality. INTRACRANIAL VESSELS [place]: The anterior, middle, posterior cerebral [...] Larry Alan M.D. MZ T: Report ID: [id number] Reading Location: [id number] Procedure Note Larry Alan MD - 08/19/2024 [...] OTHER: No other significant abnormality. INTRACRANIAL VESSELS [place]: The anterior, middle, posterior cerebral [...] 2:07 PM - Electronically signed by Larry VENCES T: Report ID: [id number] Reading Location: [place] [address] Boby Hernandez MD IMG CT PROCEDURES Final Resu lt * US Carotids Duplex Bilateral (08/16/2024 11:13 AM BOARDING HOUSE MANAGER) Anatomical Region Laterality Modality Vascular Bilateral Ultrasound 08/16/2024 11:2 0 AM BOARDING HOUSE MANAGER Impressions 08/16/2024 11:20 AM BOARDING HOUSE MANAGER Findings consistent with 80% to 99% stenosis [...] Anuj Coughlin M.D. Narrative 08/16/2024 11:20 AM BOARDING HOUSE MANAGER EXAMINATION: US CAROTIDS DUPLEX BILATERAL DATE: 08/16/2024 [...] stenosis. Electronically signed by: Anuj Coughlin M.D. us Alfredo Pedraza MD [facility] PROCEDURES Fi nal Result * Hemoglobin A1c [...] and children were not included. (Diabetes Care [id number], 2008). The eAG is not equivalent to a fasting glucose. Blood 07/06/2024 12:1 4 AM CDT 07/06/2024 12:41 AM CDT us Steff Dean NP LAB BLOOD ORDERABLES Final Result [facility] [id number] Department [place] [address] * Lipid panel (07/05/2024 10:45 AM CDT) [...] on 2018. Triglycerides 60 <=149 mg/dL [facility] Comment: Interpretive Data Ages [...] on 2018. HDL 66 >=40 mg/dL [facility] Comment: Interpretive Data Ages [...] 2018. LDL, calculated 23 <=129 mg/dL [facility] Comment: Interpretive Data Ages < or = 19 years Acceptable: <110 mg/dL Borderline high: 110-129 mg/dL High: >or= 130 mg/dL Ages > or = 20 years Optimal: <100 mg/dL Near optimal: 100-129 mg/dL Borderline high: 130-159 mg/dL High: >160 mg/dL Calculated using the Otis LDL-C estimating equation. This equation was implemented [...] should be correlated with the lipid results. us Dewayne Saucedo MD LAB BLOOD ORDERABLES Final Result [facility] [id number] [place] [address] from Last 3 Months or Most Recently Relevant to Health Maintenance Insurance MEDICARE MEDICARE MEDICARE [facility] FED[facility] Advance Directives For more information, please contact: [phone] Documents on File Type Date Recorded Patient Facilitator Expl anation ADVANCE DIRECTIVE 03/28/2018 12:00 AM PALLAVI NG WILL * Full Code (Latest Code Status on File) Date Activated Date Inactivated Comments 07/05/2024 9:41 AM 07/16/2024 8:50 PM * Full Code Date Activated Date Inactivated Comments 07/06/2019 12:06 PM 07/06/2019 9:38 PM * Full Code Date Activated Date Inactivated Comments 01/13/2018 11:05 AM 01/14/2018 1:10 PM Care Teams Emergency Vehicle Technician Relationship Specialty Start Date End Date Neli Moura DO [facility] [address] [address] PCP - General Family Medicine 03/26/24
[2024-11-04 22:28] VITALS: BP 226/69; PULSE 66; RESP 16; TEMP 36.6; O2SAT 99
--- OUTSIDE RECORDS SUMMARY | 2024-11-04 22:28 | XMS_ITS | Encounter Summary ---
Author Organization [facility] Healthcare Address [address] [place] [address] Care Team Providers Care Rural Health Consultant Name Role Phone Keerthi Ace NP Primary Care Provider [phone] Neli Moura DO Primary Care Provider + Encounter Details Date Type Department Care Team (Late st Contact Info) Description 10/20/2023 Orders Only [facility] Health Information Management [address] [place] [id number] Scanning, Provider Social History Tobacco Use Types Packs/Day Years Used Date Smoking Tobacco: Never Smokeless Tobacco: Never Alcohol Use Standard Drinks/Week Comments No 0 (1 standard drink = 0.6 oz pur e alcohol) Personal Safety Answer Date Recorded Getting School Help Needed Not on file 08/28 Comments No Sex and Gender Information Value Date Recorded Sex Assigned at Not on file Legal Sex Female 2:12 AM MANAGER HOME Gender Identity Not on file Sexual Orientation Not on file documented as of this encounter Plan of Treatment Upcoming Encounters Date Type Department Care Team (Latest Contact Info) Description 11/10/2024 8:30 AM MANAGER HOME Hospital Encounter [facility] Operating Room [address] [place] [address] [place] [address] [place] [address] Stenosis of left carotid artery 11/10/2024 8:30 AM MANAGER HOME - 11/10/2024 1:35 PM MANAGER HOME Surgery [facility] Operating Room 1 [facility] [place] [address] [place] [address] [place] [address] LEFT CAROTID ENDARTERECTOMY documented as of this encounter Procedures Procedure Name Priority Date/Time Associated Diagnosis Comments SCAN - LABS 10/20/2023 documented in this encounter Results * SCAN - LABS (10/20/2023) us Provider Scanning Final Result documented in this encounter Visit Diagnoses Not on filedocumented in this encounter Care Teams Rural Health Consultant Relationship Specialty Start Date End Date Keerthi Ace, FRANDY PCP - General Family Medicine 04/03/23 03/25/24 Neli Moura DO [address] [place] [address] [address] [place] [address] PCP - General Family Medicine 03/26/24 documented as of this encounter
--- OUTSIDE RECORDS SUMMARY | 2024-11-04 22:28 | XMS_ITS | Encounter Summary ---
Author Organization [facility] Address [facility] [place] [address] Care Team Providers Care Lead Miner Blasting Name Role Phone Jeffy Penaloza MD Primary Care Provider [phone] Encounter Details Date Type Department Care Team (Late st Contact Info) Description 06/12/2020 Prep for Procedure [facility] Day [facility] [address] [place] [address] Quincy Richmond, DMD [address] [place] [address] Social History Tobacco Use Types Packs/Day Years Used Date Smoking Tobacco: Never Smokeless Tobacco: Never Alcohol Use Standard Drinks/Week Comments Never 0 (1 standard drink = 0.6 oz pur e alcohol) AUDIT-C Answer Date Recorded Q1: How often do you have a drink containing alc ohol? Never 06/12/2020 Average Number of Drinks Not on file 020 Frequency of Binge Drinking Not on file 05/17 Comments Unknown Sex and Gender Information Value Date Recorded Sex Assigned at Not on file Legal Sex Female 9:30 AM CDT Gender Identity Not on file Sexual Orientation Not on file COVID-19 Exposure Response Date Recorded In the last month, have you been in contact with someone who was confirmed or suspected to have Coronavirus / COVID-19? No / Unsure 06/13/2020 1:42 PM CDT documented as of this encounter Plan of Treatment Not on file documented as of this encounter Results * PRE-SURGICAL/PRE-PROCEDURE CORONAVIRUS (COVID 19) (06/13/2020 1:58 PM CDT) CORONAVIRUS SARS COV 2 PCR (RESP) NOT DETECTED NOT DETECTED 06/14/2020 2:56 PM CDT [facility] Comment: A Not Detected (negative) test result for this test means that SARS- CoV-2 RNA was not present in the specimen above the limit of detection. A negative result does not rule out the possibility of COVID-19 and should not be used as the sole basis for treatment or patient management decisions. If COVID-19 is still suspected, based on exposure history together with other clinical findings, re-testing should be considered in consultation with public health authorities. Laboratory test results should always be considered in the context of clinical observations and epidemiological data in making a final diagnosis and patient management decisions. Please review the Fact Sheets and FDA authorized labeling available for health care providers and patients using the following websites: https://www.[employer]/home/Covid-19/HCP/QuestIVD/fact- sheet.html https://www.[employer]/home/Covid-19/Patients/ QuestIVD/fact-sheet.html This test has been authorized by the FDA under an Emergency Use Authorization (EUA) for use by authorized laboratories. Due to the current public health emergency, [facility] is receiving a high volume of samples from a wide variety of swabs and media for COVID-19 testing. In order to serve patients during this public health crisis, samples from appropriate clinical sources are being tested. Negative test results derived from specimens received in non-commercially manufactured viral collection and transport media, or in media and sample collection kits not yet authorized by FDA for COVID-19 testing should be cautiously evaluated and the patient potentially subjected to extra precautions such as additional clinical monitoring, including collection of an additional specimen. Methodology: Nucleic Acid Amplification Test (NAAT) includes PCR or TMA Additional information about COVID-19 can be found at the [facility] website: www.[employer]Drive.[employer]/Covid19. Test performed at [facility] [place] [address] [place] [address] Director: SHONA GARCIA DO,MPH FIRST TEST NO 06/13/2020 1:53 PM CDT [facility] EMPLOYED IN HEALTHCARE NO 06/13/2020 1:53 PM CDT [facility] SYMPTOMATIC DEFINED BY CDC NO 06/13/2020 1:53 PM CDT [facility] HOSPITALIZATION STATUS NO 06/13/2020 1:53 PM CDT [facility] PATIENT IN ICU NO 06/13/2020 1:53 PM CDT [facility] RESIDENT OF CONGREGATE CARE NO 06/13/2020 1:53 PM CDT [facility] NO 06/13/2020 2:17 PM CDT [facility] PATIENT'S RACE OTHER 06/13/2020 1:53 PM CDT [facility] ETHNICITY UNKNOWN 06/13/2020 1:53 PM CDT [facility] SOURCE (QST) NASOPHARYNGEAL SWAB 06/13/2020 1:53 PM CDT [facility] NASOPHARYNGEAL SWAB / Unknown 06/13/2020 1:58 PM CDT us Quincy Richmond DMD MICROBIOLOGY - GENERAL ORD ERABLES Final Result Performing Organization Address City/[facility] Co de Phone Number [facility] [address] [place] [address], [facility] [address] [place] [address], documented in this encounter Visit Diagnoses Diagnosis Preop testing- Primary Preoperative examination, unspecified documented in this encounter Additional Health Concerns Infection Onset Date Last Indicated Resolved Time COVID-19 Rule Out 06/13/2020 06/13/2020 06/14/2020 2:56 PM CDT COVID-19 Rule Out 12/19/2020 12/19/2020 12/20/2020 2:01 PM CDT documented as of this encounter Care Teams Lead Miner Blasting Relationship Specialty Start Date End Date Jeffy Penaloza MD [address] [place] [address] PCP - General INTERNAL MEDICINE 06/12/20 documented as of this encounter
--- OUTSIDE RECORDS SUMMARY | 2024-11-04 22:28 | XMS_ITS | Encounter Summary ---
Author Organization [facility] Healthcare Address [address] [place] [address] Care Team Providers Care Jive Developer Name Role Phone Neli Moura DO Primary Care Provider + Encounter Details Date Type Department Care Team (Late st Contact Info) Description 11/02/2024 Telephone [facility] Medical Group Cardiology [address] [place] [address] [place] [address] [place] [address] Social History Tobacco Use Types Packs/Day Years Used Date Smoking Tobacco: Never Smokeless Tobacco: Never Alcohol Use Standard Drinks/Week Comments No 0 (1 standard drink = 0.6 oz pur e alcohol) [facility] Utilities Answer Date Recorded In the past 12 months has [employer], gas, oil, or water company threatened to shut off services in your [...] often do you attend chur ch or christian services? Never 07/08/2024 Do you belong to any clubs o r organizations such as tenriism groups, unions, fraternal or athletic groups, or [...] any time in the past 12 m [facility], were you homeless or living in a care home (including now)? No 07/08/2024 Personal Safety Answer Date Recorded Have you ever been in or are you currently in a harmful physical or emotional relationship or is someone making you feel afraid or unsafe? Denies 10/01/2024 Comments No Sex and Gender Information Value Date Recorded Sex Assigned at Not on file Legal Sex Female 2:12 AM BELT BUILDER HELPER Gender Identity Not on file Sexual Orientation Not on file documented as of this encounter Miscellaneous Notes * Telephone Encounter - Tanvir Bose MA - 11/02/2024 3:23 PM CST PA done BUILDER HELPER * Telephone Encounter - Marcie Napier - 11/02/2024 10:31 AM CST Reina from [facility] called to report PA is required for guanFACINE (TENEX) 1 mg. Also states pt is requesting refill for Hydralazine. Contact: BUILDER HELPER documented in this encounter Plan of Treatment Upcoming Encounters Date Type Department Care Team (Latest Contact Info) Description 11/10/2024 8:30 AM BELT BUILDER HELPER Hospital Encounter [facility] Operating Room [address] [place] [address] [place] [address], [place] [address] Stenosis of left carotid artery 11/10/2024 8:30 AM BELT BUILDER HELPER - 11/10/2024 1:35 PM BELT BUILDER HELPER Surgery [facility] Operating Room [address] [place] [address] [place] [address], [place] [address] LEFT CAROTID ENDARTERECTOMY documented as of this encounter Visit Diagnoses Not on filedocumented in this encounter Care Teams Jive Developer Relationship Specialty Start Date End Date Neli Moura DO [facility] [address] [place] [address] PCP - General Family Medicine 03/26/24 documented as of this encounter
--- OUTSIDE RECORDS SUMMARY | 2024-11-04 22:28 | XMS_ITS | Encounter Summary ---
Author Organization [facility] Address [facility] [place] [address] Care Team Providers Care Multiskill Operator Name Role Phone Jeffy Penaloza MD Primary Care Provider [phone] Encounter Details Date Type Department Care Team (Late st Contact Info) Description 12/15/2020 Prep for Procedure [facility] Day [facility] [address] [place] [address] Quincy Richmond, DMD [address] [place] [address] Social History Tobacco Use Types [...] encounter Results * PRE-SURGICAL/PRE-PROCEDURE CORONAVIRUS (COVID 19) (12/19/2020 10:17 AM CDT) CORONAVIRUS SARS COV 2 PCR (RESP) NOT DETECTED NOT DETECTED 12/20/2020 2:01 PM CDT [facility] Comment: A Not Detected (negative) test result [...] providers and patients using the following websites: https://www.[employer]/home/Covid-19/HCP/QuestIVD/fact- sheet.html https://www.[employer]/home/Covid-19/Patients/ QuestIVD/fact-sheet.html This test has been authorized by the FDA under an Emergency Use Authorization (EUA) for use by authorized laboratories. Due to the current public health emergency, [facility] is receiving a high volume of samples [...] Methodology: Nucleic Acid Amplification Test (NAAT) includes RT-PCR or TMA Additional information about COVID-19 can be found at the [facility] website: www.[employer]/Covid19. Test performed at [facility] [place] [address] [place] [address] Director: SHONA GARCIA DO,MPH FIRST TEST NO 12/19/2020 10:15 AM [facility] EMPLOYED IN HEALTHCARE NO 12/19/2020 10:15 AM [facility] SYMPTOMATIC DEFINED BY CDC UNKNOWN 12/19/2020 10:15 AM CDT [facility] DATE OF SYMPTOM ONSET UNKNOWN 12/19/2020 10:40 AM CDT [facility] HOSPITALIZATION STATUS NO 12/19/2020 10:15 AM CDT [facility] PATIENT IN ICU NO 12/19/2020 10:15 AM CDT [facility] RESIDENT OF CONGREGATE CARE NO 12/19/2020 10:15 AM CDT [facility] NO 12/19/2020 10:40 AM CDT [facility] PATIENT'S RACE WHITE OR 12/19/2020 10:15 AM CDT [facility] ETHNICITY NONHISPANIC 12/19/2020 10:15 AM CDT [facility] SOURCE (QST) NASOPHARYNGEAL SWAB 12/19/2020 10:15 AM CDT [facility] NASOPHARYNGEAL SWAB / Unknown 12/19/2020 10:17 AM CDT us Quincy Richmond DMD MICROBIOLOGY - GENERAL ORD ERABLES Final Result Performing Organization Address City/State/[facility] Co de Phone Number [facility] [address] [place] [address], [facility] [address] [place] [address], documented in this encounter Visit Diagnoses Diagnosis Preop testing- Primary Preoperative examination, unspecified documented in this encounter Additional Health Concerns Infection Onset Date Last Indicated Resolved Time COVID-19 Rule Out 12/19/2020 12/19/2020 12/20/2020 2:01 PM CDT documented as of this encounter Care Teams Multiskill Operator Relationship Specialty Start Date End Date Jeffy Penaloza MD [address] - [facility] [address] [place] [address] PCP - General INTERNAL MEDICINE 06/12/20 documented as of this encounter
--- OUTSIDE RECORDS SUMMARY | 2024-11-04 22:28 | XMS_ITS | Encounter Summary ---
Author Organization [facility] Healthcare Address [address] [place] [address] Care Team Providers Care Lithostripper Name Role Phone Neli Moura DO Primary Care Provider + Reason for Visit * Reason Onset Date Comments Med Refill 10/25/2024 Encounter Details Date Type Department Care Team (Late st Contact Info) Description 10/25/2024 Telephone [facility] Medical Group Cardiology [address] [place] [address] Mae Mac MA Med Refill Social History Tobacco Use Types Packs/Day Years Used Date Smoking Tobacco: Never Smokeless Tobacco: Never Alcohol Use Standard Drinks/Week Comments No 0 (1 standard drink = 0.6 oz pur e alcohol) [facility] Utilities Answer Date Recorded In the past 12 months has [employer] electric, gas, oil, or water company threatened to [...] often do you attend chur ch or uatsdin services? Never 07/08/2024 Do you belong to any clubs o r organizations such as anglican groups, unions, fraternal or athletic groups, or [...] any time in the past 12 m [facility], were you homeless or living in a group home (including now)? No 07/08/2024 Personal Safety Answer Date Recorded Have you ever been in or are you currently in a harmful physical or emotional relationship or is someone making you feel afraid or unsafe? Denies 10/01/2024 Comments No Sex and Gender Information Value Date Recorded Sex Assigned at Not on file Legal Sex Female 2:12 AM BATTERY TEST ENGINEER Gender Identity Not on file Sexual Orientation Not on file documented as of this encounter Miscellaneous Notes * Telephone Encounter - Alfredo Pedraza MD - 11/03/2024 7:32 PM BATTERY TEST ENGINEER Yes please refill ERY TEST ENGINEER * Telephone Encounter - Tanvir Bose MA - 11/02/2024 3:[address] Pedraza, pt was seen in ER on 10-02-24 and given Hydralazine. She has an upcoming appt with you on 11-15-24, is it ok to fill this medication before you see her? ERY TEST ENGINEER * Telephone Encounter - Mae Mac MA - 10/25/2024 3:24 PM CST Fax from pharmacy requesting Hydralazine [address] Pedraza, Is this okay to approve? Thank you ERY TEST ENGINEER documented in this encounter Plan of Treatment Upcoming Encounters Date Type Department Care Team (Latest Contact Info) Description 11/10/2024 8:30 AM BATTERY TEST ENGINEER Hospital Encounter [facility] Operating Room [address] [place] [address] [place] [address], [place] [address] Stenosis of left carotid artery 11/10/2024 8:30 AM BATTERY TEST ENGINEER - 11/10/2024 1:35 PM BATTERY TEST ENGINEER Surgery [facility] Operating Room [address] [place] [address] [place] [address] [place] [address] LEFT CAROTID ENDARTERECTOMY documented as of this encounter Visit Diagnoses Not on filedocumented in this encounter Care Teams Lithostripper Relationship Specialty Start Date End Date Neli Moura DO [address] [facility] [address] [place] [address], [place] [address] PCP - General Family Medicine 03/26/24 documented as of this encounter
--- NOTE | 2024-11-04 22:32 | ECG_ITS ---
Test Date: 2024-11-04 22:38:21 Measurements Intervals [place] Rate: 64 P: 97 WA: 208 QRS: -45 QRSD: 96 T: 11 QT: 354 QTc: 367 Interpretive Statements SINUS RHYTHM LEFT ANTERIOR FASCICULAR BLOCK LEFT VENTRICULAR HYPERTROPHY NONSPECIFIC ST-T WAVE ABNORMALITY- ANTEROLAT/INF LEADS BASELINE ARTIFACT- I, II, III, AVR, AVL, AVF, V3-V6 ABNORMAL ECG Compared to ECG 10/09/2024 19:28:08 HEART RATE HAS INCREASED Electronically Signed On 11-05-2024 06:29:20 LICENSED TAX CONSULTANT by Jasvir Steele D.O.
[2024-11-04 23:21] LABS: Basophils Percent Auto 0.3 % (0.2-1.2); Eosinophils Percent Auto 0.3 % (0-4.4); Hematocrit 39.9 % (37.0-47.0); Hemoglobin 13.6 g/dL (12.0-15.0); Immature Granulocyte Absolute 0.05 K/mm3 (0.00-0.031); Immature Granulocyte Percent A 0.4 % (0-0.5); Lymphocytes Percent Auto 12.7 % (18.3-44.2); Mean Corpuscular HGB Conc 34.1 g/dl (32-36); Mean Corpuscular Hemoglobin 31.5 pg (26-34); Mean Corpuscular Volume 92.4 fl (80-100); Mean Platelet Volume 10.1 fl (7.4-10.4); Monocytes Absolute Auto 0.4 K/mm3 (0.1-0.6); Monocytes Percent Auto 2.8 % (2.6-8.5); Neutrophils Absolute Auto 11.2 K/mm3 (1.3-6.7); Neutrophils Percent Auto 83.5 % (45.5-73.1); Platelet Count Result 266 k/mm3 (150-375); Red Blood Count 4.32 M/mm3 (4.2-5.4); Red Cell Distribution Width 12.8 % (11.5-14.5); White Blood Count 13.4 K/mm3 (4.5-10.0)
[2024-11-04 23:42] LABS: Alanine Aminotransferase 25 U/L (6-35); Albumin Level 4.5 g/dL (3.5-5.1); Alkaline Phosphatase 107 U/L (38-126); Anion Gap 14 mmol/L (4-12); Aspartate Amino Transferase 32 U/L (14-36); Bilirubin,Total 1.8 mg/dL (0.2-1.3); Blood Urea Nitrogen 11 mg/dL (7-17); Calcium 9.4 mg/dL (8.4-10.2); Carbon Dioxide 24 mmol/L (22-30); Chloride 91 mmol/L (98-107); Estimated Glomerular Filt Rate > 60; Glucose 155 mg/dL (65-110); Lipase 16 U/L (23-300); Potassium 3.8 mmol/L (3.4-5.0); Sodium 129 mmol/L (137-145)
[2024-11-05] VITALS (15 sets, daily range): BP systolic 158–219; BP diastolic 69–85; PULSE 61–73; RESP 12–20; TEMP 36.7; O2SAT 94–100
[2024-11-05] LABS: Troponin I < 0.012 ng/mL (0.000-0.034)
[2024-11-05] MEDS: ONDANSETRON INJ 4 MG/2 ML VIAL (02:54)
[2024-11-05] MEDS: MORPHINE SULFATE (*CRX) 4 MG/ML INJ (02:54)
--- OUTSIDE RECORDS SUMMARY | 2024-11-05 05:11 | XMS_ITS | Referral Summary ---
Author Organization [facility] al Address [address] [place] [address] Care Team Providers Care Mems Engineer Name Role Phone Neli Moura DO Primary Care Provider + Encounters Date Type Department Care Team Description 11/05/2024 4:44 AM BRAZING FURNACE FEEDER Emergency [facility] Emergency Department [address] [place] [address] 11/05/2024 7:00 AM BRAZING FURNACE FEEDER Hospital Encounter [facility] [address] [place] [address] 11/02/2024 Telephone [facility] Cardiology [address] [facility] [address] [place] [phone] Alfredo Pedraza MD 10/25/2024 Telephone [facility] Cardiology [address] [place] [address] [address] [place] [phone] Mae Mac MA Med Refill 10/22/2024 Telephone [facility] Surgery [address] [place] [address] Medical Office Building [address] [place] [phone] Dayana Neal RMA Scheduling Appointments 10/18/2024 Telephone [facility] Cardiology [address] [place] [phone] Alfredo Pedraza MD Med Refill 10/08/2024 Telephone [facility] Surgery [address] [place] [address] Medical Office Building [address] [place] [phone] Carolina Maria NP 10/06/2024 Telephone [facility] Surgery [id number] [place] [address] Medical Office Building [address] [place] [phone] Dayana Neal RMA Med Management 10/04/2024 Telephone [facility] Cardiology [address] [place] [address] Alfredo Pedraza MD 10/02/2024 8:18 AM BRAZING FURNACE FEEDER - 10/02/2024 4:06 PM BRAZING FURNACE FEEDER Emergency [facility] Emergency Department [id number] [place] [address] Dawson Reyez MD Chest tightness (Primary Dx); Accelerated hypertension Discharge Disposition: Discharge to home or self care 09/29/2024 Telephone [facility] Cardiology [address] [place] [phone] Alfredo Pedraza MD 09/29/2024 Telephone [facility] Surgery [address] [place] [address] Medical Office Building [address] [place] [phone] Val DayanaGERALD Surgery Confirmation 09/17/2024 11:59 PM BRAZING FURNACE FEEDER Anesthesia Event [facility] Operating Room 1 [place] [address] Andi Benedict MD 09/17/2024 10:00 AM BRAZING FURNACE FEEDER Pre-Admission Testing [facility] Center for Preoperative Assessment and [facility] ([facility]) [address] [place] [phone] Preoperative testing (Primary Dx) 09/06/2024 Telephone [facility] Surgery [address] [place] [address] Medical Office Building [address] [place] [phone] Carolina Maria NP 08/30/2024 1:15 PM BRAZING FURNACE FEEDER Office Visit [facility] Cardiology [address] [place] [phone] Alfredo Pedraza MD PAF (paroxysmal atrial fibrillation) (CMS/HCC) (HCC) (Primary Dx); Coronary artery disease involving [place] coronary artery of [place] heart with angina pectoris (HCC); History of carotid artery disease; Mixed hyperlipidemia; Hypertensive heart disease with heart failure (CMS/HCC) (HCC) 08/19/2024 12:25 PM BRAZING FURNACE FEEDER - 08/19/2024 11:59 PM BRAZING FURNACE FEEDER Hospital Encounter [facility] [place] [address] [place] [address] Carotid atherosclerosis, bilateral Discharge Disposition: Discharge to home or self care 08/16/2024 11:15 AM BRAZING FURNACE FEEDER Office Visit [facility] Surgery [address] [facility] Medical Office Building [address], [place] [address] Boby Hernandez MD Bilateral carotid artery stenosis (Primary Dx); Carotid atherosclerosis, bilateral; Coronary artery disease due to calcified coronary lesion 08/16/2024 10:00 AM BRAZING FURNACE FEEDER - 08/16/2024 11:59 PM BRAZING FURNACE FEEDER Hospital Encounter [facility] Vascular Lab [address] [place] [address] Bilateral carotid artery stenosis Discharge Disposition: Discharge to home or self care from Last 3 Months Allergies No known active allergies Medications busPIRone (BUSPAR) 10 mg tabletIndicatio ns:Generalized Anxiety Disorder Take 1 tablet (10 mg total) by mouth 2 (two) times a day Active levothyroxine (SYNTHROID, LEVOTHROID) 88 mcg tabletIndicatio ns:hypothyroidi sm Take 1 tablet (88 mcg total) by mouth branding machine tender before breakfast Active aspirin 81 mg [...] mg tabletIndicatio ns:PAF (paroxysmal atrial fibrillation) (CMS/HCC) ([facility]) Take 1 tablet (200 mg total) by mouth daily 90 tablet 3 024 Active Additional Information Patient taking differently:200 mg oralEvery morning, Indications: Cardioversion of Atrial Fibrillation, Informant: Self, Reported on 09/17/2024 magnesium oxide (MAG-OX) 400 mg (241.3 mg elemental magnesium) tabletIndicatio ns:Paroxysmal atrial fibrillation (CMS/HCC) ([facility]) TAKE 1 TABLET (400 MG TOTAL) BY MOUTH EVERY MORNING 90 tablet 3 024 Active folic acid (FOLVITE) 1 mg tabletIndicatio ns:Rheumatoid arthritis involving multiple sites ([facility]/HCC) ([facility]) Take 3 tablets (3,000 mcg total) by [...] (40 mg total) by mouth every morning Active polyethylene glycol (MIRALAX) 17 gram packetIndicatio [...] mouth every 12 (twelve) hours 60 tablet 2025 Active guanFACINE (TENEX) 1 mg tablet Take 1 tablet (1 mg total) by mouth nightly 30 tablet 2025 Active enoxaparin (LOVENOX) 60 mg/0.6 mL syringe Inject 0.6 mL (60 mg total) under the skin every 12 (twelve) hours WILL HOLD ELIQUIS WHILE ON LOVENOX - LAST DOSE OF ELIQUIS IS 10/08. WILL TAKE LOVENOX 10/09-10/11. NO ELIQUIS OR LOVENOX ON 10/12 3.6 mL Active spironolactone (ALDACTONE) 25 mg tabletIndicatio ns:hypertension Take 0.5 tablets (12.5 mg total) by mouth every morning 45 tablet 2 Active hydrALAZINE (APRESOLINE) 25 mg tabletIndicatio ns:hypertension Take 1 tablet (25 mg total) by mouth 3 (three) times a day 90 tablet 025 2024 Active spironolactone (ALDACTONE) 25 mg tablet Take 0.5 tablets (12.5 mg total) by mouth daily 15 tablet 11 024 2024 Discontinued hydrALAZINE (APRESOLINE) 25 mg tabletIndicatio ns:hypertension Take 1 tablet (25 mg total) by mouth 3 (three) times a day 90 tablet 025 2024 Discontinued(R eobookerer) Active Problems Problem Noted Date Diagnosed Date Diastolic dysfunction 09/28/2024 Assessment & Plan (09/28/2024 9:18 AM BRAZING FURNACE FEEDER): - Diastolic dysfunction w/o CHF. Diastolic function: stage I - impaired relaxation LVEF: >70% Asthma 09/28/2024 Assessment & Plan (09/28/2024 9:29 AM BRAZING FURNACE FEEDER): - Continue home albueterol and advair - IS - OOB when able Carotid stenosis 08/16/2024 Assessment & Plan (09/28/2024 9:20 AM BRAZING FURNACE FEEDER): 09/28: s/p Left carotid endarterectomy - OU, Q2 hr NM checks - SBP goal 110-150 - Bedrest overnight, OOB POD #1 - Clear liquid diet, advance in am - DC Toro in am - Pain control - Monitor incisions for bleeding/hematoma - IS PAF (paroxysmal atrial fibrillation) ([facility]) 0 05/12/2023 Assessment & Plan (09/28/2024 9:20 AM BRAZING FURNACE FEEDER): Home regimen: amiodarone, Eliquis - continue amiodarone [...] Hypertensive heart disease with heart failure ([place]/[facility]) 05/28/2021 Pigmentary glaucoma of both eyes, 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 Hypertension 03/22/2019 Assessment & Plan (09/28/2024 9:22 AM BRAZING FURNACE FEEDER): - Home regimen: hydralazine, losartan, nebivolol, spirnolactone [...] agrees. Assessment & Plan (09/23/2017 1:48 PM BRAZING FURNACE FEEDER): Negative Lexiscan nuclear stress test back in August 2017. She does have strong family history for coronary artery disease. Will re-evaluate next visit. Evidence of type 1 diastolic dysfunction on echocardiogram. Mixed hyperlipidemia 09/23/2017 Assessment & Plan (02/16/2018 9:11 AM CDT): Continue Lipitor. Assessment & Plan (12/29/2017 1:10 PM CDT): Continue Lipitor 40 mg p.o. daily. Assessment & Plan (09/23/2017 1:49 PM BRAZING FURNACE FEEDER): L continue Lipitor. Arthralgia of ankle 07/04/2017 Sprain of calcaneofibular ligament of ankle 05/16 Pain of foot 03/14/2017 Hammer toe 05/31/2016 Ulcer of toe ([facility]) 05/31/2016 Diabetic peripheral neuropat hy associated with type 2 diabetes mellitus ([facility]) 05/31/2016 Keratoconjunctivitis sicca 10/17/2015 Bony pelvic pain 01/02/2015 Abnormal mammogram 09/30/2014 Knee pain 01/14/2014 Pigmentary degeneration of iris 12/09/2011 Diabetes mellitus 07/25/2011 Assessment & Plan (09/28/2024 9:20 AM BRAZING FURNACE FEEDER): HgbA1c 5.6, not on any home medications - Monitor glucose with daily labs - Carb consistent diet when eating Osteoarthritis 05/13/2011 Trochanteric bursitis 01/12/2011 Overview (12/26/2017): Description: Trochanteric Bursitis Rheumatoid arthritis 01/12/2011 Overview (12/26/2017): Description: Rheumatoid Arthritis Irritable bowel syndrome 11/03/2010 Gastroesophageal reflux disease 11/03/2010 Pseudophakia 08/23/2010 Coronary artery disease invo lving [place] coronary artery of [place] heart with angina pectoris Assessment & Plan (09/28/2024 9:15 AM BRAZING FURNACE FEEDER): S/p RCA stenting 07/08 - continue ASA, [...] (06/25/2019): Added automatically from request for surgery [id number] Chest pain 06/25/2019 10/29/2021 Overview (06/25/2019): Added automatically from request for surgery [id number] Essential hypertension, malignant 09/23/2017 03/22/2019 Assessment & Plan (02/16/2018 9:10 AM CDT): Blood pressure is much better controlled. Continue current treatment. Assessment & Plan (12/29/2017 1:10 PM CDT): Blood pressure well controlled. Continue current treatment. Assessment & Plan (09/23/2017 1:48 PM BRAZING FURNACE FEEDER): Blood pressure is controlled today however patient states that her blood pressure runs high at home. I will bring patient 2 weeks and re-evaluate her blood pressure as well as re-evaluate her blood pressure log. I asked the patient also to bring her blood pressure machine to compare her home reading with our readings here. Immunizations Immunization Administration Dates Next Due COVID-19 mRNA (Exergyn) 0.3 m L (30 mcg) vaccine (12 [...] drink = 0.6 oz pur e alcohol) [facility] Utilities Answer Date Recorded In the past 12 months has [employer], gas, oil, or water [employer] threatened to shut off services in your [...] often do you attend chur ch or hinduism services? Never 07/08/2024 Do you belong to any clubs o r organizations such as quaker groups, unions, fraternal or athletic groups, or [...] any time in the past 12 m [facility], were you homeless or living in a alf (including now)? No 07/08/2024 Personal Safety Answer Date Recorded Have you ever been in or are you currently in a harmful physical or emotional relationship or is someone making you feel afraid or unsafe? Denies 10/01/2024 Comments No Sex and Gender Information Value Date Recorded Sex Assigned at Not on file Legal Sex Female 2:12 AM BRAZING FURNACE FEEDER Gender Identity Not on file Sexual Orientation Not on file Last Filed Vital Signs Vital Sign Reading Time Taken Comments Blood Pressure 147/49 10/02/2024 3:30 PM BRAZING FURNACE FEEDER Pulse 59 10/02/2024 3:30 PM BRAZING FURNACE FEEDER Temperature 36.6 C (97.8 F) 10/01/2024 11:41 PM BRAZING FURNACE FEEDER Respiratory Rate 12 10/02/2024 3:30 PM BRAZING FURNACE FEEDER Oxygen Saturation 98% 10/02/2024 8:45 AM BRAZING FURNACE FEEDER Inhaled Oxygen Concentration - - Weight 59 kg (130 lb) 10/01/2024 11:41 PM BRAZING FURNACE FEEDER Height 149.9 cm (4' 11 ) 10/01/2024 11:41 PM BRAZING FURNACE FEEDER Body Mass Index 26.26 10/01/2024 11:41 PM BRAZING FURNACE FEEDER Plan of Treatment Upcoming Encounters Date Type Department Care Team (Latest Contact Info) Description 11/10/2024 8:30 AM BRAZING FURNACE FEEDER Hospital Encounter [facility] Operating Room 1 [place] [address] [place] [address] [address] [facility] [address], [place] [address] Stenosis of left carotid artery 11/10/2024 8:30 AM BRAZING FURNACE FEEDER - 11/10/2024 1:35 PM BRAZING FURNACE FEEDER Surgery [facility] Operating Room [address] [place] [address] [place] [address] [address] [facility] [address], [place] [address] LEFT CAROTID ENDARTERECTOMY Medical Devices Implanted Type Area Molder Machine Device Identifier Shelf Expiration Date Model / Serial / Lot [employer] Cuauhtemoc Stent Coronary Drug Eluting Rapid Exchange Synergy Megatron 3.46q82ke [employer] [id number] - [id number] Implanted:Qty: 1 on 07/06/2024 by Alfredo Pedraza MD at [facility] [employer] Cuauhtemoc 11/19/2025 [id number] 350 / / [id number] [employer] Cuauhtemoc Stent Drug Eluting S Megatron 3.50x8mm [id number] - [id number] Implanted:Qty: 1 on 07/06/2024 by Alfredo Pedraza MD at [facility] [employer] [facility] 07/07/2025 [id number] 350 / / [id number] [employer] [facility] Angio-Seal Vip 6fr Closere Device [id number] - [id number] Implanted:Qty: 1 on 07/06/2024 [facility] [id number] / / Procedures Procedure Name Priority Date/Time Associated Diagnosis Comments TROPONIN T HIGH-SENSITIVITY 2-HOUR STAT 10/02/2024 1:47 PM BRAZING FURNACE FEEDER TROPONIN T HIGH-SENSITIVITY SERIES (BASELINE, 2HR, 4HR, 6HR) STAT 10/02/2024 10:14 AM BRAZING FURNACE FEEDER OK CRITICAL CARE ILL/INJURED PATIENT INIT 30-74 MIN Routine 10/02/2024 9:59 AM BRAZING FURNACE FEEDER EGFR STAT 10/01/2024 11:52 PM BRAZING FURNACE FEEDER DIFFERENTIAL AUTO STAT 10/01/2024 11: 52 PM BRAZING FURNACE FEEDER TROPONIN T HIGH-SENSITIVITY SERIES (BASELINE, 2HR, 4HR, 6HR) STAT 10/01/2024 11:52 PM BRAZING FURNACE FEEDER COMPREHENSIVE METABOLIC PANEL STAT 10/01/2024 11:52 PM BRAZING FURNACE FEEDER CBC WITH AUTO DIFFERENTIAL STAT 10/01/2024 11:52 PM BRAZING FURNACE FEEDER ECG 12-LEAD Routine 10/01/2024 11:45 PM BRAZING FURNACE FEEDER EGFR Routine 09/17/2024 12:20 PM BRAZING FURNACE FEEDER Preoperative testing COMPREHENSIVE METABOLIC PANEL Routine 09/17/2024 12:20 PM BRAZING FURNACE FEEDER Preoperative testing CBC WITHOUT DIFFERENTIAL Routine 09/17/2024 12:20 PM BRAZING FURNACE FEEDER Preoperative testing TYPE AND SCREEN 14 DAY Routine 09/17/2024 12:20 PM BRAZING FURNACE FEEDER Preoperative testing CTA HEAD NECK W WO CONTRAST Schedule Routine, Read Routine (OP Routine) 08/19/2024 12:43 PM BRAZING FURNACE FEEDER Carotid atherosclerosis, bilateral US CAROTIDS DUPLEX BILATERAL Schedule Routine, Read Routine (OP Routine) 08/16/2024 11:13 AM BRAZING FURNACE FEEDER Bilateral carotid artery stenosis HEMOGLOBIN A1C Routine 07/06/2024 12:14 AM CDT LIPID PANEL Timed 07/05/2024 10:45 AM CDT from Last 3 Months or Most Recently Relevant to Health Maintenance Results * (ABNORMAL) Troponin T high-sensitivity 2-hour (10/02/2024 1:47 PM BRAZING FURNACE FEEDER) Trop T hs 29(H) <=14 ng/L Comment: [...] report a delta. Blood 10/02/2024 1:47 PM BRAZING FURNACE FEEDER 10/02/2024 1:52 PM BRAZING FURNACE FEEDER us Dawson Reyez MD LAB BLOOD ORDERABLES F inal Result COBY FRANZ [address] [address] Department [place] [address] * (ABNORMAL) Troponin T high-sensitivity series (baseline, 2hr, 4hr, 6hr) (10/02/2024 10:14 AM BRAZING FURNACE FEEDER) Trop T hs 22(H) <=14 ng/L Comment: Slight hemolysis may result in decreased troponin measurement. Consider recollection. Interpretive Data For further hscTnT resources including the diagnostic algorithm and an aid in interpretation, copy and paste this link: [email or web address].testcatalog.org/show/[email or web address] Current Interpretive Data last revised 2020. Blood 10/02/2024 10:1 4 AM BRAZING FURNACE FEEDER 10/02/2024 10:14 AM BRAZING FURNACE FEEDER us Dawson Reyez MD LAB BLOOD ORDERABLES F inal Result COBY [address] Department [place] [address] * [place] CRITICAL CARE ILL/INJURED PATIENT INIT 30-74 MIN (10/02/2024 9:59 AM BRAZING FURNACE FEEDER) Narrative Dawson Reyez MD - 10/02/2024 9:59 AM BRAZING FURNACE FEEDER Dawson Reyez MD 10/02/2024 2:21 PM Critical [...] (baseline, 2hr, 4hr, 6hr) (10/01/2024 11:52 PM BRAZING FURNACE FEEDER) Trop T hs 29(H) <=14 ng/L Comment: Interpretive Data For further hscTnT resources including the diagnostic algorithm and an aid in interpretation, copy and paste this link: https://nrl.testcatalog.org/show/hsTrop Current Interpretive Data last revised 2020. Blood 10/01/2024 11:5 2 PM BRAZING FURNACE FEEDER 10/02/2024 12:01 AM BRAZING FURNACE FEEDER Dewayne Saucedo MD LAB BLOOD ORDERABLES Edited Result - Final [facility] [address] [address] Department of Laboratories [place] [id number] * eGFR (10/01/2024 11:52 PM BRAZING FURNACE FEEDER) eGFR 75 >=60 mL/min/1. 73 m2 Comment: [...] reviewed 2021. Blood 10/01/2024 11:5 2 PM BRAZING FURNACE FEEDER 10/02/2024 12:21 AM BRAZING FURNACE FEEDER us Dewayne Saucedo MD LAB BLOOD ORDERABLES Final Result COBY [address] [address] Department [place] [address] * Differential, auto (10/01/2024 11:52 PM BRAZING FURNACE FEEDER) Neutrophil abs 4.2 1.5 - 6.5 K/cumm Imm gran abs 0.0 0.0 - 0.1 K/cumm [facility] Lymphocyte abs 2.2 0.8 - 3.3 K/cumm [facility] Monocyte abs 0.5 0.2 - 0.8 K/cumm [facility] Eosinophil abs 0.0 0.0 - 0.5 K/cumm [facility] Basophil abs 0.1 0.0 - 0.1 K/cumm [facility] Neutrophil pct 60.4 % [facility] Comment: Interpretive Data Percent cell count reference ranges are not reported, since discordance with absolute values may lead to misinterpretation of CBC data. Current Interpretive Data was last revised on 2017. Imm gran pct 0.3 % [facility] Comment: Interpretive Data Percent cell count reference ranges are not reported, since discordance with absolute values may lead to misinterpretation of CBC data. Current Interpretive Data was last revised on 2017. Lymphocyte pct 31.6 % [facility] Comment: Interpretive Data Percent cell count reference ranges are not reported, since discordance with absolute values may lead to misinterpretation of CBC data. Current Interpretive Data was last revised on 2017. Monocyte pct 6.6 % [facility] Comment: Interpretive Data Percent cell count reference ranges are not reported, since discordance with absolute values may lead to misinterpretation of CBC data. Current Interpretive Data was last revised on 2017. Eosinophil pct 0.4 % [facility] Comment: Interpretive Data Percent cell count reference ranges are not reported, since discordance with absolute values may lead to misinterpretation of CBC data. Current Interpretive Data was last revised on 2017. Basophil pct 0.7 % [facility] Comment: Interpretive Data Percent cell count reference ranges are not reported, since discordance with absolute values may lead to misinterpretation of CBC data. Current Interpretive Data was last revised on 2017. Blood 10/01/2024 11:5 2 PM BRAZING FURNACE FEEDER 10/02/2024 12:01 AM BRAZING FURNACE FEEDER Dewayne Saucedo MD LAB BLOOD ORDERABLES Final Result Performing Organization Address City/[facility]/ZIP Co de Phone Number COBY [address] Department [employer] [address] * (ABNORMAL) CBC with auto differential (10/01/2024 11:52 PM BRAZING FURNACE FEEDER) WBC 7.0 3.8 - 9.9 K/cumm Hgb 9.5(L) 11.9 - 15.5 g/dL [facility] Hct 29.0(L) 35.6 - 45.5 % [facility] Plt 203 150 - 400 K/cumm [facility] MPV 9.6 9.1 - 12.3 fL [facility] RBC 3.06(L) 3.90 - 5.20 M/cumm [facility] MCV 94.8 81.3 - 96.4 fL [facility] MCH 31.0 27.1 - 33.3 pg [facility] MCHC 32.8 32.3 - 35.7 g/dL [facility] RDW CV 12.5 11.1 - 14.9 % [facility] RDW SD 42.7 35.7 - 48.1 fL [facility] NRBC abs 0.00 0.00 - 0.01 K/cumm [facility] Blood (Blood, Venous) 10/01/2024 11:52 PM BRAZING FURNACE FEEDER 10/02/2024 12:01 AM BRAZING FURNACE FEEDER us Dewayne Saucedo MD LAB BLOOD ORDERABLES Final Result Performing Organization Address City/[facility]/ZIP Co de Phone Number COBY [address]man[address] Department of [employer] [place], [place] [id number] * (ABNORMAL) Comprehensive metabolic panel (10/01/2024 11:52 PM BRAZING FURNACE FEEDER) Sodium 130(L) 135 - 145 mmol/L Potassium, [...] [facility] Blood 10/01/2024 11:5 2 PM BRAZING FURNACE FEEDER 10/02/2024 12:01 AM BRAZING FURNACE FEEDER us Dewanye Saucedo MD LAB BLOOD ORDERABLES Final Result COBY [address] [address] Department [place] [address] * ECG 12 lead (10/01/2024 11:45 PM BRAZING FURNACE FEEDER) 10/01/2024 11:4 5 PM BRAZING FURNACE FEEDER Narrative [facility] - 10/02/2024 12:51 PM BRAZING FURNACE FEEDER Vent Rate: 51 bpm RR Interval: 1170 msec OK Interval: 205 msec QRS Duration: 90 msec QT Interval: 465 msec QTC Interval: 441 msec P-R-T [place]: 68 - -38 - 23 degrees IMPRESSION: SINUS BRADYCARDIA VOLTAGE CRITERIA FOR LVH Electronically Signed By: Jerrod Blackwell MD, [facility] Dewayne Saucedo MD ECG ORDERABLES Final Resul t Performing Organization Address City/[facility] Co de Phone Number [facility] * TYPE AND SCREEN 14 DAY (09/17/2024 12:20 PM BRAZING FURNACE FEEDER) ABO Rh O Positive Caitie, indirect Negative [facility] Blood 09/17/2024 12:2 0 PM BRAZING FURNACE FEEDER 09/17/2024 1:11 PM BRAZING FURNACE FEEDER Narrative [facility] - 09/17/2024 2:19 PM BRAZING FURNACE FEEDER Is this test being ordered in advance for a procedure?->Yes Expected date of procedure:->09/28/24 Has the patient been transfused in the past 3 months?->No Has the patient been in the past 3 months?->No Andi Benedict MD LAB BLOOD BANK TEST ORDERABL ES Final Result Performing Organization Address [facility] Phone Number [facility] Department [place] [address] * eGFR (09/17/2024 12:20 PM BRAZING FURNACE FEEDER) eGFR 69 >=60 mL/min/1. 73 m2 Comment: [...] of Race in Diagnosing Kidney Disease, JASN 202). The CKD-EPI equation should not be used for patients with unstable renal function and has not been validated in children and those over 70. Current interpretive data was last reviewed 2021. Blood 09/17/2024 12:2 0 PM BRAZING FURNACE FEEDER 09/17/2024 12:54 PM BRAZING FURNACE FEEDER Andi Benedict MD LAB BLOOD ORDERABLES Final R esult [facility] [place] [address] * (ABNORMAL) CBC without differential (09/17/2024 12:20 PM BRAZING FURNACE FEEDER) WBC 10.3(H) 3.8 - 9.9 K/cumm Hgb 12.7 11.9 - 15.5 g/dL [facility] Hct 37.0 35.6 - 45.5 % [facility] Plt 260 150 - 400 K/cumm [facility] MPV 10.5 9.1 - 12.3 fL [facility] RBC 4.17 3.90 - 5.20 M/cumm [facility] MCV 88.7 81.3 - 96.4 fL [facility] MCH 30.5 27.1 - 33.3 pg [facility] [facility] MCHC 34.3 32.3 - 35.7 g/dL [facility] RDW CV 13.3 11.1 - 14.9 % [facility] RDW SD 42.7 35.7 - 48.1 fL [facility] NRBC abs 0.00 0.00 - 0.01 K/cumm [facility] Blood 09/17/2024 12:2 0 PM BRAZING FURNACE FEEDER 09/17/2024 12:55 PM BRAZING FURNACE FEEDER us Andi Benedict MD LAB BLOOD ORDERABLES Final R esult [facility] Department [place] [address] * (ABNORMAL) Comprehensive metabolic panel (09/17/2024 12:20 PM BRAZING FURNACE FEEDER) Sodium 130(L) 135 - 145 mmol/L Potassium, pl 4.2 3.3 - 4.9 mmol/L [facility] Chloride 95(L) 97 - 110 mmol/L [facility] CO2 23 22 - 32 mmol/L [facility] Anion gap 12 2 - 15 mmol/L [facility] BUN 12 6 - 25 mg/dL [facility] Creatinine 0.85 0.60 - 1.10 mg/dL [facility] Glucose 88 70 - 199 mg/dL [facility] Comment: Interpretive Data Fasting glucose >/= 126 [...] 2022. Calcium 9.3 8.5 - 10.3 mg/dL [facility] Bilirubin, total 1.2 0.1 - 1.2 mg/dL [facility] Protein, pl 7.1 6.5 - 8.5 g/dL [facility] Albumin 4.4 3.5 - 5.0 g/dL [facility] Alk phos 81 40 - 130 Units/L [facility] ALT 19 7 - 45 Units/L [facility] AST 27 10 - 45 Units/L [facility] Blood 09/17/2024 12:2 0 PM BRAZING FURNACE FEEDER 09/17/2024 12:54 PM BRAZING FURNACE FEEDER us Andi Benedict MD LAB BLOOD ORDERABLES Final R esult [facility] Department [place] [address] * CTA Head Neck W WO Contrast (08/19/2024 12:43 PM BRAZING FURNACE FEEDER) Anatomical Region Laterality Modality Head and Neck N/A Computed Tomogra phy 08/19/2024 1:47 PM BRAZING FURNACE FEEDER Narrative 08/19/2024 2:07 PM BRAZING FURNACE FEEDER EXAM DESCRIPTION: CTA HEAD NECK W WO [...] OTHER: No other significant abnormality. INTRACRANIAL VESSELS [place]: The anterior, middle, posterior cerebral [...] Larry Alan M.D. MZ T: Report ID: [id number] Reading Location: [place] [address] Procedure Note Larry Alan MD - 08/19/2024 [...] OTHER: No other significant abnormality. INTRACRANIAL VESSELS [place]: The anterior, middle, posterior cerebral [...] Larry Alan M.D. MZ T: Report ID: [id number] Reading Location: [place] [address] us Boby Hernandez MD IMG CT PROCEDURES Final Resu lt * US Carotids Duplex Bilateral (08/16/2024 11:13 AM BRAZING FURNACE FEEDER) Anatomical Region Laterality Modality Vascular Bilateral Ultrasound 08/16/2024 11:2 0 AM BRAZING FURNACE FEEDER Impressions 08/16/2024 11:20 AM BRAZING FURNACE FEEDER Findings consistent with 80% to 99% stenosis [...] Anuj Coughlin M.D. Narrative 08/16/2024 11:20 AM BRAZING FURNACE FEEDER EXAMINATION: US CAROTIDS DUPLEX BILATERAL DATE: 08/16/2024 [...] Anuj Coughlin M.D. us Alfredo Pedraza MD IMG US PROCEDURES Fi nal Result * Hemoglobin A1c (07/06/2024 12:14 AM CDT) [facility] Hgb A1C 5.6 4.0 - 5.6 % Estimated Average Glucose 114 mg/dL [facility] Comment: The ADA recommends reporting an estimated Average Glucose (eAG) with all Hemoglobin A1c results using the equation derived from a study of 507 normal and diabetic adults. Minority populations were underrepresented and children were not included. (Diabetes Care 31:6535-4748, 2008). The eAG is not equivalent to a fasting glucose. Blood 07/06/2024 12:1 4 AM CDT 07/06/2024 12:41 AM CDT us Steff Dean NP LAB BLOOD ORDERABLES Final Result [facility] [id number] [place] [place] [address] * Lipid panel (07/05/2024 10:45 AM CDT) [...] NCEP Expert Panel. Circulation 2004;110:227 3. Otis Hernandez et al. CHARLIE Cardiol. 2020 January 13;5(5):540-548. [...] LAB BLOOD ORDERABLES Final Result [facility] [id number] Department [place] [address] from Last 3 Months or Most Recently Relevant to Health Maintenance Insurance MEDICARE MEDICARE MEDICARE [facility] Advance Directives For more information, please contact: [phone] Documents on File Type Date Recorded Patient Injection Press Operator Expl anation ADVANCE DIRECTIVE 03/28/2018 12:00 AM PALL[facility] NG WILL * Full Code (Latest Code Status on File) Date Activated Date Inactivated Comments 07/05/2024 9:41 AM 07/16/2024 8:50 PM * Full Code Date Activated Date Inactivated Comments 07/06/2019 12:06 PM 07/06/2019 9:38 PM * Full Code Date Activated Date Inactivated Comments 01/13/2018 11:05 AM 01/14/2018 1:10 PM Care Teams Mems Engineer Relationship Specialty Start Date End Date Neli Moura DO [address] [place] [address] DR RA[address] [place] [id number] PCP - General Family Medicine 03/26/24
--- OUTSIDE RECORDS SUMMARY | 2024-11-05 05:11 | XMS_ITS | Encounter Summary ---
Author Organization [facility] Healthcare Address [address] [place] [address] Care Team Providers Care Stewardess Supervisor Name Role Phone Neli Moura DO Primary Care Provider + Encounter Details Date Type Department Care Team (Late st Contact Info) Description 11/05/2024 7:00 AM [facility] Hospital Encounter [facility] ADMIT [address] [place] [address] Social History Tobacco Use Types Packs/Day Years Used Date Smoking Tobacco: Never Smokeless Tobacco: Never Alcohol Use Standard Drinks/Week Comments No 0 (1 standard drink = 0.6 oz pur e alcohol) [facility] Utilities Answer Date Recorded In the past 12 months has [place] electric, gas, oil, or water company threatened [...] often do you attend chur ch or evangelical services? Never 07/08/2024 Do you belong to any clubs o r organizations such as congregational groups, unions, fraternal or athletic groups, or [...] any time in the past 12 m [facility], were you homeless or living in a fpc (including now)? No 07/08/2024 Personal Safety Answer Date Recorded Have you ever been in or are you currently in a harmful physical or emotional relationship or is someone making you feel afraid or unsafe? Denies 10/01/2024 Comments No Sex and Gender Information Value Date Recorded Sex Assigned at Not on file Legal Sex Female 2:12 AM OVERHEAD CRANE TECHNICIAN Gender Identity Not on file Sexual Orientation Not on file documented as of this encounter Plan of Treatment Upcoming Encounters Date Type Department Care Team (Latest Contact Info) Description 11/10/2024 8:30 AM OVERHEAD CRANE TECHNICIAN Hospital Encounter [facility] Operating Room [address] [place] [address] [place] [address] [address] [facility] 1 [facility] [address] [address] Stenosis of left carotid artery 11/10/2024 8:30 AM OVERHEAD CRANE TECHNICIAN - 11/10/2024 1:35 PM OVERHEAD CRANE TECHNICIAN Surgery [facility] Operating Room [address] [place] [address] [place] [address] [address] [facility] 1 [facility] [address] [address] LEFT CAROTID ENDARTERECTOMY documented as of this encounter Visit Diagnoses Not on filedocumented in this encounter Care Teams Stewardess Supervisor Relationship Specialty Start Date End Date Neli Moura DO [address] [place] [address] DR RA[address] [place] [address] PCP - General Family Medicine 03/26/24 documented as of this encounter
--- OUTSIDE RECORDS SUMMARY | 2024-11-05 05:11 | XMS_ITS | Encounter Summary ---
Author Organization [facility] Healthcare Address [address] [place] [address] Care Team Providers Care Windows Software Engineer Name Role Phone Neli Moura DO Primary Care Provider + Encounter Details Date Type Department Care Team (Late st Contact Info) Description 11/05/2024 4:44 AM [facility] Emergency [facility] Emergency Department [address] [place] [address] Social History Tobacco Use Types Packs/Day Years Used Date Smoking Tobacco: Never Smokeless Tobacco: Never Alcohol Use Standard Drinks/Week Comments No 0 (1 standard drink = 0.6 oz pur e alcohol) [facility] Utilities Answer Date Recorded In the past 12 months has e electric, gas, oil, or water company threatened [...] often do you attend chur ch or protestant services? Never 07/08/2024 Do you belong to any clubs o r organizations such as adventism groups, unions, fraternal or athletic groups, or [...] any time in the past 12 m [facility], were you homeless or living in [...] on file Legal Sex Female 2:12 AM HYPERION ANALYST Gender Identity Not on file Sexual Orientation Not on file documented as of this encounter Miscellaneous Notes * ED Pre-Arrival Note - Mohan Davalos RN - 11/05/2024 4:45 AM HYPERION ANALYST Pre-Arrival Note Pt being transferred From [place]. Pt had SBO about 1 month ago. 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 +BT. NG tube placed by OSH. MD Garcia with [facility] requesting to see pt in ED. Accepted by MD Rodriguez. Mohan Davalos, RN RION ANALYST documented in this encounter Plan of Treatment Upcoming Encounters Date Type Department Care Team (Latest Contact Info) Description 11/10/2024 8:30 AM HYPERION ANALYST Hospital Encounter [facility] Operating Room [address] [place] [address] [place] [address] [address] [facility] [address], [place] [address] Stenosis of left carotid artery 11/10/2024 8:30 AM HYPERION ANALYST - 11/10/2024 1:35 PM HYPERION ANALYST Surgery [facility] Operating Room [address] [place] [address] [place] [address] [address] [facility] [address], [place] [address] LEFT CAROTID ENDARTERECTOMY documented as of this encounter Visit Diagnoses Not on filedocumented in this encounter Care Teams Windows Software Engineer Relationship Specialty Start Date End Date Neli Moura DO [address] [facility] [address] [place] [address] PCP - General Family Medicine 03/26/24 documented as of this encounter
--- OUTSIDE RECORDS SUMMARY | 2024-11-05 05:12 | XMS_ITS | Encounter Summary ---
Author Organization [facility] Healthcare Address [address] [place] [address] Care Team Providers Care Home Care Associate Name Role Phone Neli Moura DO Primary Care Provider + Reason for Visit * Reason Onset Date Comments Med Refill 10/18/2024 Encounter Details Date Type Department Care Team (Late st Contact Info) Description 10/18/2024 Telephone [facility] Medical [facility] Cardiology [address] [place] [address] Alfredo Pedraza MD [address] [place], [place] [id number] Med Refill Social History Tobacco Use Types Packs/Day Years Used Date Smoking Tobacco: Never Smokeless Tobacco: Never Alcohol Use Standard Drinks/Week Comments No 0 (1 standard drink = 0.6 oz pur e alcohol) [facility] Utilities Answer Date Recorded In the past 12 months has [employer], gas, oil, or water [employer] threatened to shut off services in your [...] How often do you attend chur or sabianism services? Never 07/08/2024 Do you belong to any clubs o r organizations such as faith groups, unions, fraternal or athletic groups, or [...] any time in the past 12 m [facility], were you homeless or living in a fci (including now)? No 07/08/2024 Personal Safety Answer Date Recorded Have you ever been in or are you currently in a harmful physical or emotional relationship or is someone making you feel afraid or unsafe? Denies 10/01/2024 Comments No Sex and Gender Information Value Date Recorded Sex Assigned at Not on file Legal Sex Female 2:12 AM DOCUMENT SCANNER Gender Identity Not on file Sexual Orientation Not on file documented as of this encounter Miscellaneous Notes * Telephone Encounter - Alfredo Pedraza MD - 10/20/2024 12:14 PM DOCUMENT SCANNER Yes go ahead and refill MENT SCANNER * Telephone Encounter - Tanvir Bose MA - 10/18/2024 1:[address] Pedraza, are you ok with refilling? MENT SCANNER * Telephone Encounter - Wandy Desai - 10/18/2024 11:48 AM CST Patient requesting refill for spironolactone (ALDACTONE) 25 mg and hydrALAZINE (APRESOLINE) 25 mg with 90 day supply. Please send to [facility] pharmacy. Thank you. Contact [phone] MENT SCANNER documented in this encounter Plan of Treatment Upcoming Encounters Date Type Department Care Team (Latest Contact Info) Description 11/10/2024 8:30 AM DOCUMENT SCANNER Hospital Encounter [facility] Operating Room [address] [place] [address] [place] [address] [address] [facility] [address] [place] [address] Stenosis of left carotid artery 11/10/2024 8:30 AM DOCUMENT SCANNER - 11/10/2024 1:35 PM DOCUMENT SCANNER Surgery [facility] Operating Room [address] [place] [address] [place] [address] [address] [place] [address] LEFT CAROTID ENDARTERECTOMY documented as of this encounter Visit Diagnoses Not on filedocumented in this encounter Care Teams Home Care Associate Relationship Specialty Start Date End Date Neli Moura DO [facility] [address] RA[address] [place] [address] PCP - General Family Medicine 03/26/24 documented as of this encounter
--- OUTSIDE RECORDS SUMMARY | 2024-11-05 05:12 | XMS_ITS | Encounter Summary ---
Author Organization [facility] Healthcare Address [address] [place] [address] Care Team Providers Care Electrical And Radio Mock Up Mechanic Name Role Phone Neli Moura DO Primary Care Provider + Encounter Details Date Type Department Care Team (Late st Contact Info) Description 11/02/2024 Telephone [facility] Medical Group Cardiology [address] [place] [address] [place] [address] [place] [id number] Social History Tobacco Use Types Packs/Day Years Used Date Smoking Tobacco: Never Smokeless Tobacco: Never Alcohol Use Standard Drinks/Week Comments No 0 (1 standard drink = 0.6 oz pur e alcohol) [facility] Utilities Answer Date Recorded In the past 12 months has [employer], gas, oil, or water company threatened to [...] often do you attend chur ch or holiness services? Never 07/08/2024 Do you belong to any clubs o r organizations such as sikh groups, unions, fraternal or athletic groups, or [...] any time in the past 12 m [facility], were you homeless or living in a mcc (including now)? No 07/08/2024 Personal Safety Answer Date Recorded Have you ever been in or are you currently in a harmful physical or emotional relationship or is someone making you feel afraid or unsafe? Denies 10/01/2024 Comments No Sex and Gender Information Value Date Recorded Sex Assigned at Not on file Legal Sex Female 2:12 AM AEROSPACE ENGINEER Gender Identity Not on file Sexual Orientation Not on file documented as of this encounter Miscellaneous Notes * Telephone Encounter - Tanvir Bose MA - 11/02/2024 3:23 PM CST PA done SPACE ENGINEER * Telephone Encounter - Marcie Napier - 11/02/2024 10:31 AM CST Reina from [facility] called to report PA is required for guanFACINE (TENEX) 1 mg. Also states pt is requesting refill for Hydralazine. Contact: SPACE ENGINEER documented in this encounter Plan of Treatment Upcoming Encounters Date Type Department Care Team (Latest Contact Info) Description 11/10/2024 8:30 AM AEROSPACE ENGINEER Hospital Encounter [facility] Operating Room [address] [place] [address] [place] [address] [address], [place] [address] Stenosis of left carotid artery 11/10/2024 8:30 AM AEROSPACE ENGINEER - 11/10/2024 1:35 PM AEROSPACE ENGINEER Surgery [facility] Operating Room [address] [place] [address] [place] [address] [address] [address], [place] [address] LEFT CAROTID ENDARTERECTOMY documented as of this encounter Visit Diagnoses Not on filedocumented in this encounter Care Teams Electrical And Radio Mock Up Mechanic Relationship Specialty Start Date End Date eNli Moura DO [facility] [facility] [address] [place] [address] PCP - General Family Medicine 03/26/24 documented as of this encounter
--- OUTSIDE RECORDS SUMMARY | 2024-11-05 05:12 | XMS_ITS | Clinical Summary ---
Author Organization [facility] Address [address] [place] [address] Care Team Providers Care Licensed Investment Sales Assistant Name Role Phone Neli Moura DO Primary Care Provider + Allergies No known active allergies Medications busPIRone (BUSPAR) 10 mg tabletIndicatio ns:Generalized Anxiety Disorder Take 1 tablet (10 mg total) by mouth 2 (two) times a day Active levothyroxine (SYNTHROID, LEVOTHROID) 88 mcg tabletIndicatio ns:hypothyroidi sm Take 1 tablet (88 mcg total) by mouth diabetes education coordinator before breakfast Active aspirin 81 mg tabletIndicatio [...] ns:PAF (paroxysmal atrial fibrillation) (CMS/HCC) ([facility]) Take 1 tablet (200 mg total) by mouth daily 90 tablet 3 024 Active Additional Information Patient taking differently:200 mg oralEvery morning, Indications: Cardioversion of Atrial Fibrillation, Informant: Self, Reported on 09/17/2024 magnesium oxide (MAG-OX) 400 mg (241.3 mg elemental magnesium) tabletIndicatio ns:Paroxysmal atrial fibrillation (CMS/HCC) ([facility]) TAKE 1 TABLET (400 MG TOTAL) BY MOUTH EVERY MORNING 90 tablet 3 024 Active folic acid (FOLVITE) 1 mg tabletIndicatio ns:Rheumatoid arthritis involving multiple sites (CMS/HCC) ([facility]) Take 3 tablets (3,000 mcg total) [...] a day 90 tablet 025 2024 Discontinued(R eomickey) Active Problems Problem Noted Date Diagnosed Date Diastolic dysfunction 09/28/2024 Assessment & Plan (09/28/2024 9:18 AM ELECTRIC LOCOMOTIVE CRANE OPERATOR): - Diastolic dysfunction w/o CHF. Diastolic function: stage I - impaired relaxation LVEF: >70% Asthma 09/28/2024 Assessment & Plan (09/28/2024 9:29 AM ELECTRIC LOCOMOTIVE CRANE OPERATOR): - Continue home albueterol and advair - IS - OOB when able Carotid stenosis 08/16/2024 Assessment & Plan (09/28/2024 9:20 AM ELECTRIC LOCOMOTIVE CRANE OPERATOR): 09/28: s/p Left carotid endarterectomy - OU, Q2 hr NM checks - SBP goal 110-150 - Bedrest overnight, OOB POD #1 - Clear liquid diet, advance in am - DC Toro in am - Pain control - Monitor incisions for bleeding/hematoma - IS PAF (paroxysmal atrial fibrillation) (CMS/HCC) 0 05/12/2023 Assessment & Plan (09/28/2024 9:20 AM ELECTRIC LOCOMOTIVE CRANE OPERATOR): Home regimen: amiodarone, Eliquis - continue amiodarone [...] 03/22/2019 Assessment & Plan (09/28/2024 9:22 AM ELECTRIC LOCOMOTIVE CRANE OPERATOR): - Home regimen: hydralazine, losartan, nebivolol, spirnolactone [...] agrees. Assessment & Plan (09/23/2017 1:48 PM ELECTRIC LOCOMOTIVE CRANE OPERATOR): Negative Lexiscan nuclear stress test back in August 2017. She does have strong family history for coronary artery disease. Will re-evaluate next visit. Evidence of type 1 diastolic dysfunction on echocardiogram. Mixed hyperlipidemia 09/23/2017 Assessment & Plan (02/16/2018 9:11 AM CDT): Continue Lipitor. Assessment & Plan (12/29/2017 1:10 PM CDT): Continue Lipitor 40 mg p.o. daily. Assessment & Plan (09/23/2017 1:49 PM ELECTRIC LOCOMOTIVE CRANE OPERATOR): L continue Lipitor. 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 Diabetes mellitus 07/25/2011 Assessment & Plan (09/28/2024 9:20 AM ELECTRIC LOCOMOTIVE CRANE OPERATOR): HgbA1c 5.6, not on any home medications - Monitor glucose with daily labs - Carb consistent diet when eating Osteoarthritis 05/13/2011 Trochanteric bursitis 01/12/2011 Overview (12/26/2017): Description: Trochanteric Bursitis Rheumatoid arthritis 01/12/2011 Overview (12/26/2017): Description: Rheumatoid Arthritis Irritable bowel syndrome 11/03/2010 Gastroesophageal reflux disease 11/03/2010 Pseudophakia 08/23/2010 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 Continue current treatment. Assessment & Plan (12/29/2017 1:10 PM CDT): Blood pressure well controlled. Continue current treatment. Assessment & Plan (09/23/2017 1:48 PM ELECTRIC LOCOMOTIVE CRANE OPERATOR): Blood pressure is controlled today however patient states that her blood pressure runs high at home. I will bring patient 2 weeks and re-evaluate her blood pressure as well as re-evaluate her blood pressure log. I asked the patient also to bring her blood pressure machine to compare her home reading with our readings here. Encounters Date Type Department Care Team Description 11/05/2024 7:00 AM [facility] Hospital Encounter [facility] ADMIT [address] [place] [address] 11/05/2024 4:44 AM [facility] Emergency Department [address] [place] [address] 11/02/2024 Telephone [facility] Cardiology [address] [place] [address] [place] [phone] Alfredo Pedraza MD 10/25/2024 Telephone [facility] [address] [place] [address] [place] [phone] Mae Mac MA Med Refill 10/22/2024 Telephone [facility] Surgery [address] [place] [address] Medical Office Building [address] [place] [phone] Dayana Neal RMA Scheduling Appointments 10/18/2024 Telephone [facility] [address] [place] [address] [address] [place] [phone] Alfredo Pedraza MD Med Refill 10/08/2024 Telephone [facility] Surgery [address] [place] [address] Medical Office Building [address] [place] [phone] Carolina Maria NP 10/06/2024 Telephone [facility] Surgery [address] [place] [address] Medical Office Building [address] [place] [phone] Dayana Neal RMA Med Management 10/04/2024 Telephone [facility]iology [address] [place] [address] [place] [phone] Alfredo Pedraza MD 10/02/2024 8:18 AM ELECTRIC LOCOMOTIVE CRANE OPERATOR - 10/02/2024 4:06 PM ELECTRIC LOCOMOTIVE CRANE OPERATOR Emergency [facility] Emergency Department [address] [place] [phone] Dawson Reyez MD Chest tightness (Primary Dx); Accelerated hypertension Discharge Disposition: Discharge to home or self care 09/29/2024 Telephone [facility] Medical [facility] Cardiology [address] [place] [phone] Alfredo Pedraza MD 09/29/2024 Telephone [facility] Surgery [address] [place] [address] Medical Office Building [address] [place] [phone] Val DayanaGERALD Surgery Confirmation 09/17/2024 11:59 PM ELECTRIC LOCOMOTIVE CRANE OPERATOR Anesthesia Event [facility] Operating Room [address] [place] [address] Andi Benedict MD 09/17/2024 10:00 AM ELECTRIC LOCOMOTIVE CRANE OPERATOR Pre-Admission Testing [facility] ([facility]) [address] [place] [id number] Preoperative testing (Primary Dx) 09/06/2024 Telephone [facility] Surgery [address] [place] [address] Medical Office Building [address] [place] [phone] Carolina Maria NP 08/30/2024 1:15 PM ELECTRIC LOCOMOTIVE CRANE OPERATOR Office Visit [facility] Medical Group Cardiology [address] [place] [phone] Alfredo Pedraza MD PAF (paroxysmal atrial fibrillation) (CMS/HCC) (HCC) (Primary Dx); Coronary artery disease involving takotna coronary artery of takotna heart with angina pectoris (HCC); History of carotid artery disease; Mixed hyperlipidemia; Hypertensive heart disease with heart failure (CMS/HCC) (HCC) 08/19/2024 12:25 PM ELECTRIC LOCOMOTIVE CRANE OPERATOR - 08/19/2024 11:59 PM ELECTRIC LOCOMOTIVE CRANE OPERATOR Hospital Encounter [facility] Orthopedic and [address] [address] Carotid atherosclerosis, bilateral Discharge Disposition: Discharge to home or self care 08/16/2024 11:15 AM ELECTRIC LOCOMOTIVE CRANE OPERATOR Office Visit [facility] Surgery [address] [facility] Medical Office Building 1 [address] [place] [address] Boby Hernandez MD Bilateral carotid artery stenosis (Primary Dx); Carotid atherosclerosis, bilateral; Coronary artery disease due to calcified coronary lesion 08/16/2024 10:00 AM ELECTRIC LOCOMOTIVE CRANE OPERATOR - 08/16/2024 11:59 PM ELECTRIC LOCOMOTIVE CRANE OPERATOR Hospital Encounter [facility] Vascular Lab [address] [place] [address] Bilateral carotid artery stenosis Discharge Disposition: Discharge to home or self care from Last 3 Months Immunizations Immunization Administration Dates Next Due COVID-19 mRNA ([employer]) 0.3 m L (30 mcg) vaccine (12 [...] drink = 0.6 oz pur e alcohol) [facility] Utilities Answer Date Recorded In the past 12 months has [employer], gas, oil, or water [employer] threatened to shut off services in your [...] often do you attend chur ch or moravian services? Never 07/08/2024 Do you belong to any clubs o r organizations such as druze groups, unions, fraternal or athletic groups, or [...] time in the past 12 m [facility], were you homeless or living in a fdc (including now)? No 07/08/2024 Personal Safety Answer Date Recorded Have you ever been in or are you currently in a harmful physical or emotional relationship or is someone making you feel afraid or unsafe? Denies 10/01/2024 Comments No Sex and Gender Information Value Date Recorded Sex Assigned at Not on file Legal Sex Female 2:12 AM ELECTRIC LOCOMOTIVE CRANE OPERATOR Gender Identity Not on file Sexual Orientation Not on file Obstetrics History Last Filed Vital Signs Vital Sign Reading Time Taken Comments Blood Pressure 147/49 10/02/2024 3:30 PM ELECTRIC LOCOMOTIVE CRANE OPERATOR Pulse 59 10/02/2024 3:30 PM ELECTRIC LOCOMOTIVE CRANE OPERATOR Temperature 36.6 C (97.8 F) 10/01/2024 11:41 PM ELECTRIC LOCOMOTIVE CRANE OPERATOR Respiratory Rate 12 10/02/2024 3:30 PM ELECTRIC LOCOMOTIVE CRANE OPERATOR Oxygen Saturation 98% 10/02/2024 8:45 AM ELECTRIC LOCOMOTIVE CRANE OPERATOR Inhaled Oxygen Concentration - - Weight 59 kg (130 lb) 10/01/2024 11:41 PM ELECTRIC LOCOMOTIVE CRANE OPERATOR Height 149.9 cm (4' 11 ) 10/01/2024 11:41 PM ELECTRIC LOCOMOTIVE CRANE OPERATOR Body Mass Index 26.26 10/01/2024 11:41 PM ELECTRIC LOCOMOTIVE CRANE OPERATOR Plan of Treatment Upcoming Encounters Date Type Department Care Team (Latest Contact Info) Description 11/10/2024 8:30 AM ELECTRIC LOCOMOTIVE CRANE OPERATOR Hospital [facility] Operating [facility] [address] [place] [address] [place] [id number] [address] [address] Stenosis of left carotid artery 11/10/2024 8:30 AM ELECTRIC LOCOMOTIVE CRANE OPERATOR - 11/10/2024 1:35 PM ELECTRIC LOCOMOTIVE CRANE OPERATOR Surgery [facility] Operating Room [address] [place] [address] [place] [address] [address] [address] LEFT CAROTID ENDARTERECTOMY Health Maintenance Due Date [...] history exists Medical Devices Implanted Type Area Independent Video Producer Device Identifier Shelf Expiration Date Model / Serial / Lot [employer] Stent Coronary Drug Eluting Rapid Exchange Synergy Megatron 3.81b48pm [place] Chromium [id number] - [id number] Implanted:Qty: 1 on 07/06/2024 by Alfredo Pedraza MD at [facility] [employer] 11/19/2025 [id number] / / [id number] [employer] Stent Drug Eluting S Megatron 3.50x8mm [id number] - [id number] Implanted:Qty: 1 on 07/06/2024 by Alfredo Pedraza MD at [facility] [employer] 07/07/2025 [id number] 350 / / [id number] T[employer] Angio-Seal Vip 6fr Closere Device [id number] - [id number] Implanted:Qty: 1 on 07/06/2024 by Alfredo Pedraza MD at [facility] [employer] [id number] / / Procedures Procedure Name Priority Date/Time Associated Diagnosis Comments TROPONIN T HIGH-SENSITIVITY 2-HOUR STAT 10/02/2024 1:47 PM ELECTRIC LOCOMOTIVE CRANE OPERATOR TROPONIN T HIGH-SENSITIVITY SERIES (BASELINE, 2HR, 4HR, 6HR) STAT 10/02/2024 10:14 AM ELECTRIC LOCOMOTIVE CRANE OPERATOR PA CRITICAL CARE ILL/INJURED PATIENT INIT 30-74 MIN Routine 10/02/2024 9:59 AM ELECTRIC LOCOMOTIVE CRANE OPERATOR EGFR STAT 10/01/2024 11:52 PM ELECTRIC LOCOMOTIVE CRANE OPERATOR DIFFERENTIAL AUTO STAT 10/01/2024 11: 52 PM ELECTRIC LOCOMOTIVE CRANE OPERATOR TROPONIN T HIGH-SENSITIVITY SERIES (BASELINE, 2HR, 4HR, 6HR) STAT 10/01/2024 11:52 PM ELECTRIC LOCOMOTIVE CRANE OPERATOR COMPREHENSIVE METABOLIC PANEL STAT 10/01/2024 11:52 PM ELECTRIC LOCOMOTIVE CRANE OPERATOR CBC WITH AUTO DIFFERENTIAL STAT 10/01/2024 11:52 PM ELECTRIC LOCOMOTIVE CRANE OPERATOR ECG 12-LEAD Routine 10/01/2024 11:45 PM ELECTRIC LOCOMOTIVE CRANE OPERATOR EGFR Routine 09/17/2024 12:20 PM ELECTRIC LOCOMOTIVE CRANE OPERATOR Preoperative testing COMPREHENSIVE METABOLIC PANEL Routine 09/17/2024 12:20 PM ELECTRIC LOCOMOTIVE CRANE OPERATOR Preoperative testing CBC WITHOUT DIFFERENTIAL Routine 09/17/2024 12:20 PM ELECTRIC LOCOMOTIVE CRANE OPERATOR Preoperative testing TYPE AND SCREEN 14 DAY Routine 09/17/2024 12:20 PM ELECTRIC LOCOMOTIVE CRANE OPERATOR Preoperative testing CTA HEAD NECK W WO CONTRAST Schedule Routine, Read Routine (OP Routine) 08/19/2024 12:43 PM ELECTRIC LOCOMOTIVE CRANE OPERATOR Carotid atherosclerosis, bilateral US CAROTIDS DUPLEX BILATERAL Schedule Routine, Read Routine (OP Routine) 08/16/2024 11:13 AM ELECTRIC LOCOMOTIVE CRANE OPERATOR Bilateral carotid artery stenosis HEMOGLOBIN A1C Routine 07/06/2024 12:14 AM CDT LIPID PANEL Timed 07/05/2024 10:45 AM CDT from Last 3 Months or Most Recently Relevant to Health Maintenance Results * (ABNORMAL) Troponin T high-sensitivity 2-hour (10/02/2024 1:47 PM ELECTRIC LOCOMOTIVE CRANE OPERATOR) Trop T hs 29(H) <=14 ng/L Comment: Interpretive Data For further hscTnT resources including the diagnostic algorithm and an aid in interpretation, copy and paste this link: [email or web address]/show/[email or web address] Current Interpretive Data last revised 2020. Trop T hs delta See Comment ng/L [facility] Comment:Inappropriate collec tion time to report a delta. Trop T hs pct delta See Comment % COBY Comment:Inappropriate collec tion time to report a delta. Trop T hs interp See Comment COBY Comment:Inappropriate collec tion time to report a delta. Blood 10/02/2024 1:47 PM ELECTRIC LOCOMOTIVE CRANE OPERATOR 10/02/2024 1:52 PM ELECTRIC LOCOMOTIVE CRANE OPERATOR Dawson Reyez MD LAB BLOOD ORDERABLES F inal Result [facility] [address] [place] [address] * (ABNORMAL) Troponin T high-sensitivity series (baseline, 2hr, 4hr, 6hr) (10/02/2024 10:14 AM ELECTRIC LOCOMOTIVE CRANE OPERATOR) Trop T hs 22(H) <=14 ng/L Comment: Slight hemolysis may result in decreased troponin measurement. Consider recollection. Interpretive Data For further hscTnT resources including the diagnostic algorithm and an aid in interpretation, copy and paste this link: [email or web address]/show/[email or web address] Current Interpretive Data last revised 2020. Blood 10/02/2024 10:1 4 AM ELECTRIC LOCOMOTIVE CRANE OPERATOR 10/02/2024 10:14 AM ELECTRIC LOCOMOTIVE CRANE OPERATOR us Dawson Reyez MD LAB BLOOD ORDERABLES F inal Result COBY [address] [facility] [place] [address] * PA CRITICAL CARE ILL/INJURED PATIENT INIT 30-74 MIN (10/02/2024 9:59 AM ELECTRIC LOCOMOTIVE CRANE OPERATOR) Narrative Dawson Reyez MD - 10/02/2024 9:59 AM ELECTRIC LOCOMOTIVE CRANE OPERATOR Dawson Reyez MD 10/02/2024 2:21 PM Critical [...] (baseline, 2hr, 4hr, 6hr) (10/01/2024 11:52 PM ELECTRIC LOCOMOTIVE CRANE OPERATOR) [facility] Trop T hs 29(H) <=14 ng/L Comment: Interpretive Data For further hscTnT resources including the diagnostic algorithm and an aid in interpretation, copy and paste this link: https://nrl.testcatalog.org/show/hsTrop Current Interpretive Data last revised 2020. Blood 10/01/2024 11:5 2 PM ELECTRIC LOCOMOTIVE CRANE OPERATOR 10/02/2024 12:01 AM ELECTRIC LOCOMOTIVE CRANE OPERATOR us Dewayne Saucedo MD LAB BLOOD ORDERABLES Edited Result - Final [facility] [id number] [employer] [place], [place] [id number] * eGFR (10/01/2024 11:52 PM ELECTRIC LOCOMOTIVE CRANE OPERATOR) eGFR 75 >=60 mL/min/1. 73 m2 Comment: [...] reviewed 2021. Blood 10/01/2024 11:5 2 PM ELECTRIC LOCOMOTIVE CRANE OPERATOR 10/02/2024 12:21 AM ELECTRIC LOCOMOTIVE CRANE OPERATOR us Dewayne Saucedo MD LAB BLOOD ORDERABLES Final Result [facility] [address] [address] [employer] [place], [place] [id number] * Differential, auto (10/01/2024 11:52 PM ELECTRIC LOCOMOTIVE CRANE OPERATOR) Neutrophil abs 4.2 1.5 - 6.5 K/cumm Imm gran abs 0.0 0.0 - 0.1 K/cumm [facility] Lymphocyte abs 2.2 0.8 - 3.3 K/cumm [facility] Monocyte abs 0.5 0.2 - 0.8 K/cumm [facility] Eosinophil abs 0.0 0.0 - 0.5 K/cumm [facility] Basophil abs 0.1 0.0 - 0.1 K/cumm [facility] Neutrophil pct 60.4 % [facility] Comment: Interpretive Data Percent cell count reference ranges are not reported, since discordance with absolute values may lead to misinterpretation of CBC data. Current Interpretive Data was last revised on 2017. Imm gran pct 0.3 % [facility] Comment: Interpretive Data Percent cell count reference ranges are not reported, since discordance with absolute values may lead to misinterpretation of CBC data. Current Interpretive Data was last revised on 2017. Lymphocyte pct 31.6 % [facility] Comment: Interpretive Data Percent cell count reference ranges are not reported, since discordance with absolute values may lead to misinterpretation of CBC data. Current Interpretive Data was last revised on 2017. Monocyte pct 6.6 % [facility] Comment: Interpretive Data Percent cell count reference ranges are not reported, since discordance with absolute values may lead to misinterpretation of CBC data. Current Interpretive Data was last revised on 2017. Eosinophil pct 0.4 % [facility] Comment: Interpretive Data Percent cell count reference ranges are not reported, since discordance with absolute values may lead to misinterpretation of CBC data. Current Interpretive Data was last revised on 2017. Basophil pct 0.7 % [facility] Comment: Interpretive Data Percent cell count reference ranges are not reported, since discordance with absolute values may lead to misinterpretation of CBC data. Current Interpretive Data was last revised on 2017. Blood 10/01/2024 11:5 2 PM ELECTRIC LOCOMOTIVE CRANE OPERATOR 10/02/2024 12:01 AM ELECTRIC LOCOMOTIVE CRANE OPERATOR us Dewayne Saucedo MD LAB BLOOD ORDERABLES Final Result [facility] [address] Department of Laboratories [place] [id number] * (ABNORMAL) CBC with auto differential (10/01/2024 11:52 PM ELECTRIC LOCOMOTIVE CRANE OPERATOR) [facility] WBC 7.0 3.8 - 9.9 K/cumm Hgb 9.5(L) 11.9 - 15.5 g/dL [facility] Hct 29.0(L) 35.6 - 45.5 % [facility] CH Plt 203 150 - 400 K/cumm [facility] CH MPV 9.6 9.1 - 12.3 fL [facility] RBC 3.06(L) 3.90 - 5.20 M/cumm [facility] CH MCV 94.8 81.3 - 96.4 fL [facility] CH MCH 31.0 27.1 - 33.3 pg [facility] CH MCHC 32.8 32.3 - 35.7 g/dL [facility] RDW CV 12.5 11.1 - 14.9 % [facility] RDW SD 42.7 35.7 - 48.1 fL [facility] NRBC abs 0.00 0.00 - 0.01 K/cumm [facility] Blood (Blood, Venous) 10/01/2024 11:52 PM ELECTRIC LOCOMOTIVE CRANE OPERATOR 10/02/2024 12:01 AM ELECTRIC LOCOMOTIVE CRANE OPERATOR Dewayne Saucedo MD LAB BLOOD ORDERABLES Final Result [facility] [address] Department [place] [address] * (ABNORMAL) Comprehensive metabolic panel (10/01/2024 11:52 PM ELECTRIC LOCOMOTIVE CRANE OPERATOR) [facility] Sodium 130(L) 135 - 145 mmol/L Potassium, pl 3.6 3.3 - 4.9 mmol/L [facility] Chloride 98 97 - 110 mmol/L [facility] CH CO2 20(L) 22 - 32 mmol/L [facility] Anion gap 12 2 - 15 mmol/L [facility] CH BUN 10 6 - 25 mg/dL [facility] Creatinine 0.79 0.60 - 1.10 mg/dL [facility] Glucose 115 70 - 199 mg/dL [facility] Comment: Interpretive Data Fasting glucose >/= 126 [...] [facility] Blood 10/01/2024 11:5 2 PM ELECTRIC LOCOMOTIVE CRANE OPERATOR 10/02/2024 12:01 AM ELECTRIC LOCOMOTIVE CRANE OPERATOR Dewayne Saucedo MD LAB BLOOD ORDERABLES Final Result Performing Organization Address City/[facility] Co de Phone Number [facility] [address] [facility] Department [place] [address] * ECG 12 lead (10/01/2024 11:45 PM ELECTRIC LOCOMOTIVE CRANE OPERATOR) 10/01/2024 11:4 5 PM ELECTRIC LOCOMOTIVE CRANE OPERATOR Narrative [facility] - 10/02/2024 12:51 PM ELECTRIC LOCOMOTIVE CRANE OPERATOR Vent Rate: 51 bpm RR Interval: 1170 msec PA Interval: 205 msec QRS Duration: 90 msec QT Interval: 465 msec QTC Interval: 441 msec P-R-T [place]: 68 - -38 - 23 degrees IMPRESSION: SINUS BRADYCARDIA VOLTAGE CRITERIA FOR LVH Electronically Signed By: Jerrod Blackwell MD, [facility] Dewayne Saucedo MD ECG ORDERABLES Final Resul t [facility] * TYPE AND SCREEN 14 DAY (09/17/2024 12:20 PM ELECTRIC LOCOMOTIVE CRANE OPERATOR) ABO Rh O Positive Caitie, indirect Negative [facility] Blood 09/17/2024 12:2 0 PM ELECTRIC LOCOMOTIVE CRANE OPERATOR 09/17/2024 1:11 PM ELECTRIC LOCOMOTIVE CRANE OPERATOR [facility]arrative [facility] - 09/17/2024 2:19 PM ELECTRIC LOCOMOTIVE CRANE OPERATOR Is this test being ordered in advance for a procedure?->Yes Expected date of procedure:->09/28/24 Has the patient been transfused in the past 3 months?->No Has the patient been in the past 3 months?->No Andi Benedict MD LAB BLOOD BANK TEST ORDERABL ES Final Result [facility] [place] [address] * eGFR (09/17/2024 12:20 PM ELECTRIC LOCOMOTIVE CRANE OPERATOR) eGFR 69 >=60 mL/min/1. 73 m2 Comment: [...] reviewed 2021. Blood 09/17/2024 12:2 0 PM ELECTRIC LOCOMOTIVE CRANE OPERATOR 09/17/2024 12:54 PM ELECTRIC LOCOMOTIVE CRANE OPERATOR Andi Benedict MD LAB BLOOD ORDERABLES Final R esult Performing Organization Address City/[facility]/ZIP Co de Phone Number [facility] Department [place] [address] * (ABNORMAL) CBC without differential (09/17/2024 12:20 PM ELECTRIC LOCOMOTIVE CRANE OPERATOR) [facility] WBC 10.3(H) 3.8 - 9.9 K/cumm Hgb 12.7 11.9 - 15.5 g/dL [facility] Hct 37.0 35.6 - 45.5 % [facility] Plt 260 150 - 400 K/cumm [facility] MPV 10.5 9.1 - 12.[address] [facility] RBC 4.17 3.90 - 5.20 M/cumm [facility] MCV 88.7 81.3 - 96.[address] [facility] MCH 30.5 27.1 - 33.[address] [facility] MCHC 34.3 32.3 - 35.7 g/dL [facility] RDW CV 13.3 11.1 - 14.9 % [facility] RDW SD 42.7 35.7 - 48.[address] [facility] NRBC abs 0.00 0.00 - 0.01 K/cumm [facility] [facility] Blood 09/17/2024 12:2 0 PM ELECTRIC LOCOMOTIVE CRANE OPERATOR 09/17/2024 12:55 PM ELECTRIC LOCOMOTIVE CRANE OPERATOR Andi Benedict MD LAB BLOOD ORDERABLES Final R esult [facility] [place] [address] * (ABNORMAL) Comprehensive metabolic panel (09/17/2024 12:20 PM ELECTRIC LOCOMOTIVE CRANE OPERATOR) [facility] Sodium 130(L) 135 - 145 mmol/L Potassium, pl 4.2 3.3 - 4.9 mmol/L [facility] Chloride 95(L) 97 - 110 mmol/L [facility] CO2 23 22 - 32 mmol/L [facility] Anion gap 12 2 - 15 mmol/L [facility] BUN 12 6 - 25 mg/dL [facility] Creatinine 0.85 0.60 - 1.10 mg/dL [facility] Glucose 88 70 - 199 mg/dL [facility] Comment: Interpretive Data Fasting glucose >/= 126 [...] 2022. Calcium 9.3 8.5 - 10.3 mg/dL [facility] Bilirubin, total 1.2 0.1 - 1.2 mg/dL [facility] Protein, pl 7.1 6.5 - 8.5 g/dL [facility] Albumin 4.4 3.5 - 5.0 g/dL [facility] Alk phos 81 40 - 130 Units/L [facility] ALT 19 7 - 45 Units/L [facility] AST 27 10 - 45 Units/L [facility] Blood 09/17/2024 12:2 0 PM ELECTRIC LOCOMOTIVE CRANE OPERATOR 09/17/2024 12:54 PM ELECTRIC LOCOMOTIVE CRANE OPERATOR Andi Benedict MD LAB BLOOD ORDERABLES Final R esult [facility] [place] [address] * CTA Head Neck W WO Contrast (08/19/2024 12:43 PM ELECTRIC LOCOMOTIVE CRANE OPERATOR) Anatomical Region Laterality Modality Head and Neck N/A Computed Tomogra phy 08/19/2024 1:47 PM ELECTRIC LOCOMOTIVE CRANE OPERATOR Narrative 08/19/2024 2:07 PM ELECTRIC LOCOMOTIVE CRANE OPERATOR EXAM DESCRIPTION: CTA HEAD NECK W WO [...] OTHER: No other significant abnormality. INTRACRANIAL VESSELS [place]: The anterior, middle, posterior cerebral [...] Larry Alan M.D. MZ T: Report ID: [id number] Reading Location: [id number] Procedure Note Larry Alan MD - 08/19/2024 [...] OTHER: No other significant abnormality. INTRACRANIAL VESSELS [place]: The anterior, middle, posterior cerebral [...] Larry Alan M.D. MZ T: Report ID: [id number] Reading Location: [place] [address] us Boby Hernandez MD IMG CT PROCEDURES Final Resu lt * US Carotids Duplex Bilateral (08/16/2024 11:13 AM ELECTRIC LOCOMOTIVE CRANE OPERATOR) Anatomical Region Laterality Modality Vascular Bilateral Ultrasound 08/16/2024 11:2 0 AM ELECTRIC LOCOMOTIVE CRANE OPERATOR Impressions 08/16/2024 11:20 AM ELECTRIC LOCOMOTIVE CRANE OPERATOR Findings consistent with 80% to 99% stenosis [...] Anuj Coughlin M.D. Narrative 08/16/2024 11:20 AM ELECTRIC LOCOMOTIVE CRANE OPERATOR EXAMINATION: US CAROTIDS DUPLEX BILATERAL DATE: 08/16/2024 [...] and children were not included. (Diabetes Care 31:1107-6524, 2008). The eAG is not equivalent to a fasting glucose. Blood 07/06/2024 12:1 4 AM CDT 07/06/2024 12:41 AM CDT us Steff Dean NP LAB BLOOD ORDERABLES Final Result [facility] [address] [place] [address] * Lipid panel (07/05/2024 10:45 AM CDT) [...] 2. NCEP Expert Panel. Circulation 2004;110:227 3. Berg M et al. CHARLIE Cardiol. 2020 January 13;5(5):540-548. doi: 10.1001/jamacardio.2020.0013 Current Interpretive Data was last revised on 2024. Non-HDL Cholesterol 37 mg/dL [facility] Comment: Interpretive Data Ages < [...] last revised on 2018. Chol/HDL ratio 2 [facility] Blood 07/05/2024 10:4 5 AM CDT 07/05/2024 10:48 AM CDT Narrative [facility] - 07/05/2024 11:38 AM CDT This lipid panel was automatically ordered due to a significant change in Troponin. The dietary status of the patient at the collection time should be correlated with the lipid results. Dewayne Saucedo MD LAB BLOOD ORDERABLES Final Result [facility] [address] [place] [address] from Last 3 Months or Most Recently Relevant to Health Maintenance Insurance MEDICARE MEDICARE [facility]IC[facility] Address: [address] [place] [address] Advance Directives For more information, please contact: [phone] Documents on File Type Date Recorded Patient Obstetrics Gynecology Physician Expl anation ADVANCE DIRECTIVE 03/28/2018 12:00 AM [facility] WILL * Full Code (Latest Code Status on File) Date Activated Date Inactivated Comments 07/05/2024 9:41 AM 07/16/2024 8:50 PM * Full Code Date Activated Date Inactivated Comments 07/06/2019 12:06 PM 07/06/2019 9:38 PM * Full Code Date Activated Date Inactivated Comments 01/13/2018 11:05 AM 01/14/2018 1:10 PM Care Teams Licensed Investment Sales Assistant Relationship Specialty Start Date End Date Neli Moura DO [address] [facility] [address] [address] PCP - General Family Medicine 03/26/24
--- OUTSIDE RECORDS SUMMARY | 2024-11-05 05:12 | XMS_ITS | Encounter Summary ---
Author Organization [facility] Address [facility] [place] [address] Care Team Providers Care Software Team Leader Name Role Phone Jeffy Penaloza MD Primary Care Provider [phone] Encounter Details Date Type Department Care Team (Late st Contact Info) Description 06/12/2020 Prep for Procedure [facility] [address] [place] [address] Quincy Richmond, DMD [address] [place] [address] Social History Tobacco Use Types [...] DETECTED NOT DETECTED 06/14/2020 2:56 PM CDT [email or web address] [facility] Comment: A Not Detected (negative) test [...] providers and patients using the following websites: https://www.Dstillery (formerly Media[employer]/home/Covid-19/HCP/QuestIVD/fact- sheet.html https://www.[employer]stillery ([employer]/home/Covid-19/Patients/ QuestIVD/fact-sheet.html This test has been authorized by the FDA under an Emergency Use Authorization (EUA) for use by authorized laboratories. Due to the current public health emergency, [facility] is receiving a high volume of samples [...] about COVID-19 can be found at the [employer] website: www.HaloSource.[employer]/Covid19. Test performed at [email or web address] [place] [address] [place] [address] Director: SHONA GARCIA DO,MPH FIRST TEST NO 06/13/2020 1:53 PM CDT [facility] EMPLOYED IN HEALTHCARE NO 06/13/2020 1:53 PM CDT [facility] SYMPTOMATIC DEFINED BY CDC NO 06/13/2020 1:53 PM CDT [facility] HOSPITALIZATION STATUS NO 06/13/2020 1:53 PM CDT [facility] PATIENT IN ICU NO 06/13/2020 1:53 PM CDT [facility] RESIDENT OF CONGREGATE CARE NO 06/13/2020 1:53 PM CDT [facility] NO 06/13/2020 2:17 PM CDT [facility] PATIENT'S RACE OTHER 06/13/2020 1:53 PM CDT [facility] ETHNICITY UNKNOWN 06/13/2020 1:53 PM CDT [facility] SOURCE (QST) NASOPHARYNGEAL SWAB 06/13/2020 1:53 PM CDT [facility] NASOPHARYNGEAL SWAB / Unknown 06/13/2020 1:58 PM CDT us Quincy Richmond DMD MICROBIOLOGY - GENERAL ORD ERABLES Final Result Performing Organization Address City/[facility] Co de Phone Number [facility] [address] [place] [address], [email or web address] [facility] [address] [place] [address], documented in this encounter Visit Diagnoses Diagnosis Preop testing- Primary Preoperative examination, unspecified documented in this encounter Additional Health Concerns Infection Onset Date Last Indicated Resolved Time COVID-19 Rule Out 06/13/2020 06/13/2020 06/14/2020 2:56 PM CDT COVID-19 Rule Out 12/19/2020 12/19/2020 12/20/2020 2:01 PM CDT documented as of this encounter Care Teams Software Team Leader Relationship Specialty Start Date End Date Jeffy Penaloza MD [address] [place] [address] PCP - General INTERNAL MEDICINE 06/12/20 documented as of this encounter
--- OUTSIDE RECORDS SUMMARY | 2024-11-05 05:12 | XMS_ITS | Encounter Summary ---
Author Organization [facility] Address [facility] [place] [address] Care Team Providers Care Organic Search Lead Name Role Phone Jeffy Penaloza MD Primary Care Provider [phone] Encounter Details Date Type Department Care Team (Late st Contact Info) Description 12/15/2020 Prep for Procedure [facility] [address] [place] [address] Quincy Richmond, DMD [address] [place] [address] Social History Tobacco Use Types [...] DETECTED NOT DETECTED 12/20/2020 2:01 PM CDT [employer] [facility] Comment: A Not Detected (negative) test [...] providers and patients using the following websites: https://www.Holla@Me.[employer]/home/Covid-19/HCP/QuestIVD/fact- sheet.html https://www.Holla@Me[employer]/home/Covid-19/Patients/ Quest[employer]/fact-sheet.html This test has been authorized by the FDA under an Emergency Use Authorization (EUA) for use by authorized laboratories. Due to the current public health emergency, [facility] is receiving a high volume of samples [...] about COVID-19 can be found at the [employer] website: www.LocalOn.[employer]/Covid19. Test performed at [employer] [address] [address] [place] [address] Director: SHONA GARCIA DO,MPH FIRST TEST NO 12/19/2020 10:[address] [facility] EMPLOYED IN HEALTHCARE NO 12/19/2020 10:[address] [facility] SYMPTOMATIC DEFINED BY CDC UNKNOWN 12/19/2020 10:15 AM CDT [facility] DATE OF SYMPTOM ONSET UNKNOWN 12/19/2020 10:40 AM CDT [facility] HOSPITALIZATION STATUS NO 12/19/2020 10:15 AM CDT [facility] PATIENT IN ICU NO 12/19/2020 10:15 AM CDT [facility] RESIDENT OF CONGREGATE CARE NO 12/19/2020 10:15 AM CDT [facility] NO 12/19/2020 10:40 AM CDT [facility] PATIENT'S RACE WHITE OR 12/19/2020 10:15 AM CDT [facility] ETHNICITY NONHISPANIC 12/19/2020 10:15 AM CDT [facility] SOURCE (QST) NASOPHARYNGEAL SWAB 12/19/2020 10:15 AM CDT [facility] NASOPHARYNGEAL SWAB / Unknown 12/19/2020 10:17 AM CDT us Quincy Richmond DMD MICROBIOLOGY - GENERAL ORD ERABLES Final Result Performing Organization Address City/State/[facility] Co de Phone Number [facility] [address] [place] [address], [employer] [facility] [address] [place] [address], documented in this encounter Visit Diagnoses Diagnosis Preop testing- Primary Preoperative examination, unspecified documented in this encounter Additional Health Concerns Infection Onset Date Last Indicated Resolved Time COVID-19 Rule Out 12/19/2020 12/19/2020 12/20/2020 2:01 PM CDT documented as of this encounter Care Teams Organic Search Lead Relationship Specialty Start Date End Date Jeffy Penaloza MD [address] - [facility] [address] [place] [address] PCP - General INTERNAL MEDICINE 06/12/20 documented as of this encounter
--- OUTSIDE RECORDS SUMMARY | 2024-11-05 05:12 | XMS_ITS | Encounter Summary ---
Author Organization [facility] Healthcare Address [address] [place] [address] Care Team Providers Care Floor Scraper Name Role Phone Keerthi Ace NP Primary Care Provider [phone] Neli Moura DO Primary Care Provider + Encounter Details Date Type Department Care Team (Late st Contact Info) Description 10/20/2023 Orders Only [facility] Information Management [address] [place] [address] Scanning, Provider Social History Tobacco Use Types [...] on file Legal Sex Female 2:12 AM CREW DIRECTOR Gender Identity Not on file Sexual Orientation Not on file documented as of this encounter Plan of Treatment Upcoming Encounters Date Type Department Care Team (Latest Contact Info) Description 11/10/2024 8:30 AM CREW DIRECTOR Hospital Encounter [facility] Operating Room [address] [place] [address] [place] [address] [place] [address] Stenosis of left carotid artery 11/10/2024 8:30 AM CREW DIRECTOR - 11/10/2024 1:35 PM CREW DIRECTOR Surgery [facility] Operating Room 1 [facility] [place] [address] [place] [address] [place] [address] LEFT CAROTID ENDARTERECTOMY documented as of this encounter Procedures Procedure Name Priority Date/Time Associated Diagnosis Comments SCAN - LABS 10/20/2023 documented in this encounter Results * SCAN - LABS (10/20/2023) us Provider Scanning Final Result documented in this encounter Visit Diagnoses Not on filedocumented in this encounter Care Teams Floor Scraper Relationship Specialty Start Date End Date Keerthi Ace, FRANDY PCP - General Family Medicine 04/03/23 03/25/24 Neli Moura DO [address] [place] [address] [address] [place] [address] PCP - General Family Medicine 03/26/24 documented as of this encounter
--- OUTSIDE RECORDS SUMMARY | 2024-11-05 05:12 | XMS_ITS | Encounter Summary ---
Author Organization [facility] Facility Care Team Providers Care Physical Security Engineer Name Role Phone Don Alejandre MD Primary Care Provider [phone] Alona Jones MD Primary Care Provider Attila Pemberton MD Primary Care Provider Kathleen Garcia PRACTICE REPRESENTATIVE Primary Care Provider [phone] Keerthi Ace PRACTICE REPRESENTATIVE Primary Care Provider [phone] Neli Moura DO Primary Care Provider + Encounter Details Date Type Department Care Team (Latest Contact Info) Description 04/13/2018 Orders Only [facility] ProviderKenya MD [address] [place] [address] Social History Tobacco Use Types Packs/Day Years Used Date Smoking Tobacco: Never Assessed Comments Unknown Sex and Gender Information Value Date Recorded Sex Assigned at Not on file Legal Sex Female 2:12 AM DOZER OPERATOR Gender Identity Not on file Sexual Orientation Not on file documented as of this encounter Plan of Treatment Upcoming Encounters Date Type Department Care Team (Latest Contact Info) Description 11/10/2024 8:30 AM DOZER OPERATOR Hospital Encounter [facility] Operating Room [address] [place] [address] [place] [address] [facility] [address] [address] Stenosis of left carotid artery 11/10/2024 8:30 AM DOZER OPERATOR - 11/10/2024 1:35 PM DOZER OPERATOR Surgery [facility] Operating Room [address] [place] [address] [place] [address] [place] [address] LEFT CAROTID ENDARTERECTOMY documented as of this [...] on filedocumented in this encounter Care Teams Physical Security Engineer Relationship Specialty Start Date End Date Don Alejandre MD [address] [place] [address] PCP - General Family Practice 02/16/18 06/13/19 Alona Jones MD [address] [place] [address] PCP - General Family Medicine 06/14/19 11/12/20 Attila Pemberton MD [address] [place] [address] PCP - General Family Practice 11/13/20 12/13/21 Kathleen Garcia NP [address] [place] [address] PCP - General Nurse Practitioner 12/14/21 04/02/23 Keerthi Ace, PRACTICE REPRESENTATIVE [address] [place] [address] PCP - General Family Medicine 04/03/23 03/25/24 Neli Moura DO [address] [facility] [address] [place], [place] [address] PCP - General Family Medicine 03/26/24 documented as of this encounter
--- OUTSIDE RECORDS SUMMARY | 2024-11-05 05:12 | XMS_ITS | Encounter Summary ---
Author Organization [facility] Healthcare Address [address] [place] [address] Care Team Providers Care Mica Washer Gluer Name Role Phone Neli Moura DO Primary Care Provider + Reason for Visit * Reason Onset Date Comments Med Refill 10/25/2024 Encounter Details Date Type Department Care Team (Late st Contact Info) Description 10/25/[address] [facility] Cardiology [address] [place] [address] Mae Mac MA Med Refill Social History Tobacco Use Types Packs/Day Years Used Date Smoking Tobacco: Never Smokeless Tobacco: Never Alcohol Use Standard Drinks/Week Comments No 0 (1 standard drink = 0.6 oz pur e alcohol) [facility] Utilities Answer Date Recorded In the past 12 months has [employer] electric, gas, oil, or water company threatened [...] often do you attend chur ch or jainism services? Never 07/08/2024 Do you belong to any clubs o r organizations such as episcopalian groups, unions, fraternal or athletic groups, or [...] any time in the past 12 m [place], were you homeless or living in a [...] on file Legal Sex Female 2:12 AM TROLLEY CAR OPERATOR Gender Identity Not on file Sexual Orientation Not on file documented as of this encounter Miscellaneous Notes * Telephone Encounter - Alfredo Pedraza MD - 11/03/2024 7:32 PM TROLLEY CAR OPERATOR Yes please refill LEY CAR OPERATOR * Telephone Encounter - Tanvir Bose MA - 11/02/2024 3:[address] Pedraza, pt was seen in ER on 10-02-24 and given Hydralazine. She has an upcoming appt with you on 11-15-24, is it ok to fill this medication before you see her? LEY CAR OPERATOR * Telephone Encounter - Mae Mac MA - 10/25/2024 3:24 PM CST Fax from pharmacy requesting Hydralazine [address] Pedraza, Is this okay to approve? Thank you LEY CAR OPERATOR documented in this encounter Plan of Treatment Upcoming Encounters Date Type Department Care Team (Latest Contact Info) Description 11/10/2024 8:30 AM TROLLEY CAR OPERATOR Hospital Encounter [facility] Operating Room [address] [place] [address] [place] [address], [place] [address] Stenosis of left carotid artery 11/10/2024 8:30 AM TROLLEY CAR OPERATOR - 11/10/2024 1:35 PM TROLLEY CAR OPERATOR Surgery [facility] Operating Room [address] [place] [address] [place] [address] [place] [address] LEFT CAROTID ENDARTERECTOMY documented as of this encounter Visit Diagnoses Not on filedocumented in this encounter Care Teams Mica Washer Gluer Relationship Specialty Start Date End Date Neli Moura DO [address] [facility] [address] [place] [address], [place] [address] PCP - General Family Medicine 03/26/24 documented as of this encounter
--- OUTSIDE RECORDS SUMMARY | 2024-11-05 05:12 | XMS_ITS | Clinical Summary ---
Author Organization [facility] Address [address] [place] [address] Care Team Providers Care Info Specialist Name Role Phone Jeffy Penaloza MD Primary Care Provider [phone] Allergies No known active allergies Medications folic [...] gland 11/05/2023 Coronary artery disease invo lving [place] coronary artery of [place] heart with angina pectoris 11/04/2023 Overview (11/04/2023): Last Assessment & Plan: Patient continues to have exertional chest discomfort. Brilinta is expensive and therefore will switch to Plavix 75 mg daily. I will prescribe patient sublingual nitroglycerin to be taken as needed for chest pain. Will reassess her symptoms next visit. PAF (paroxysmal atrial fibrillation) (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) 03/05/2022 Overview (11/04/2023): Last Assessment & Plan: Chronic changes with large area of subretinal fibrosis and residual dehemoglobinized heme, limiting visual acuity (VA). Discussed R/B/A of anti-VEGF but given severely diminished visual acuity (VA) and chronicity of at least 6 months , patient wishes to defer. 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 type 2 diabetes mellitus ([facility]) 05/31/2016 Hammer toe 05/31/2016 Ulcer of toe ([facility]) 05/31/2016 Keratoconjunctivitis sicca 10/17/2015 Bony pelvic pain 01/02/2015 Abnormal mammogram 09/30/2014 Knee pain 01/14/2014 Pigmentary degeneration of iris 12/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 Diabetes mellitus ([facility]) 07/25/2011 Osteoarthrosis 05/13/2011 Rheumatoid arthritis involvi ng multiple sites ([facility]) 01/12/2011 Overview (11/04/2023): Description: Rheumatoid Arthritis Trochanteric [...] Comments Blood Pressure 126/74 11/04/2023 10:36 AM INDUSTRIAL REFRIGERATION MECHANIC Pulse 72 11/04/2023 10:36 AM INDUSTRIAL REFRIGERATION MECHANIC Temperature 36.8 C (98.2 F) 11/04/2023 10:36 AM INDUSTRIAL REFRIGERATION MECHANIC Respiratory Rate 18 11/04/2023 10:36 AM INDUSTRIAL REFRIGERATION MECHANIC Oxygen Saturation 96% 11/04/2023 10:36 AM INDUSTRIAL REFRIGERATION MECHANIC Inhaled Oxygen Concentration - - Weight 63.5 kg (140 lb) 11/04/2023 10:36 AM INDUSTRIAL REFRIGERATION MECHANIC Height 149.9 cm (4' 11 ) 11/04/2023 10:36 AM INDUSTRIAL REFRIGERATION MECHANIC Body Mass Index 28.28 11/04/2023 10:36 AM INDUSTRIAL REFRIGERATION MECHANIC Plan of Treatment Health Maintenance Due Date Last Done Comments ASCVD LDL 1943 ASCVD Statin 1943 Kidney Health Evaluation 1945 Hemoglobin A1C 1943 Lipid Panel 1943 PHQ-2 (Physician [place]) 1955 Diabetes: Retinopathy Eye Exam [...] 07/14/2019, 07/14/2019, Additional history exists PHQ-2 (Physician [place]) 09/15/2024 DTaP, Tdap and Td [...] age to complete this topic Insurance MEDICARE [facility] Advance Directives Documents on File Type Date Recorded Patient Conservation Of Resources Commissioner Expl anation Power of Popcorn Candy Maker 10/29/2023 4:40 PM POA P aperwork * Full Code (Latest Code Status on File) Date Activated Date Inactivated Comments 12/22/2020 8:59 AM 12/22/2020 1:37 PM Care Teams Info Specialist Relationship Specialty Start Date End Date Jeffy Penaloza MD [address] [place] [address] PCP - General INTERNAL MEDICINE 06/12/20
[2024-11-05 07:37] LABS: Add Urine Microscopic? YES; Appearance Urine Clear (Clear); Bacteria Urine None Seen /hpf; Bilirubin Urine Negative (Negative); Blood Urine Negative (Negative); Color Urine Yellow (Yellow); Glucose Urine UA Negative (Negative); Ketones Urine 1+ mg/dL (Negative); Leukocyte Esterase Ur Negative LEU/UL (Negative); Nitrate Urine Negative (Negative); Non Pathogenic Casts 0-2; Protein Urine 1+ mg/dL (Negative); RBC Urine 0-2 /hpf (0-2); Specific Grav Ur 1.034 (1.001-1.035); Squamous Epithelial Cell Urine None Seen /hpf (Few); WBC Urine 0-5 /hpf (0-3)
[2024-11-05] MEDS: ONDANSETRON INJ 4 MG/2 ML VIAL IV PUSH (09:03)
[2024-11-05] MEDS: MORPHINE SULFATE (*CRX) 4 MG/ML INJ IV PUSH (09:03)
== END 2024-11-05 09:18 | disposition short-term general hospital (02) ==
LOC: ANHED 11-05 05:09
PROVIDERS: Emergency Provider Emergency Medicine; PCP Family Medicine
DX: K55.059 Acute (reversible) ischemia of intestine, part and extent unspecified (principal); K56.2 Volvulus
CPT/HCPCS: 36415; 71260; 74177; 80053; 81001; 83690; 84484; 85025; 93005; 96374; 96375; 99285; J2270; J2405; Q9967

== ENCOUNTER 2024-11-28 04:07 | Emergency (ER) | payer MEDICARE, BC, SELFPAY ==
--- NOTE | ~2024-11-28 | CT_ITS ---
CT abdomen pelvis w con Ordering provider: Smiley Leon MD History: 79 years Female with . rule out bowel obstruction . Comparison: November 05, 2024 Technique: CT abdomen and pelvis with IV and without oral contrast. Automated exposure control and it erative reconstruction technique were employed. The dose-length product was 429.26 mGy-cm. 100 mL Omn ipaque 350 was given IV. Findings: VISUALIZED LOWER CHEST: Normal. UPPER ABDOMINAL ORGANS: Liver: Hypodensities in the right lobe unchanged from previous examination. CBD is prominent measurin g 1.3 cm. Gallbladder: Status post cholecystectomy. Spleen: Hypodensity unchanged from previous examination. Stomach/duodenum: Sliding hiatus hernia with fluid content. Pancreas: Atrophic. Adrenals: Normal. Kidneys: Minimal fullness of the right renal pelvis. No stones seen bilaterally. PELVIC ORGANS: The bladder is underfilled with slightly thickened wall. Evaluation for cystitis advis ed. BOWEL AND MESENTERY: Colon: No evidence of diverticulitis.. No evidence of appendicitis with nonvisualization of the appen simón. Small Bowel:Dilated small bowel loops are seen suggestive of ileus or obstruction. The transition zon e is seen in the pelvis. Postoperative changes in the bowel is seen in the upper abdomen. Slight thic kening of the wall is seen in the pelvic bowel loops Peritoneum/mesentery: No free air or free fluid. No mesenteric lymphadenopathy. RETROPERITONEUM: Mild atheromatous disease of the abdominal aorta. No retroperitoneal lymphadenopat hy. MUSCULOSKELETAL: Superficial soft tissues: The superficial soft tissues are normal. Bones: Age appropriate degenerative changes of the spine. Left sacroiliitis. Minimal anterolisthesis at the level of L4-L5 and L5-S1 is also noted. IMPRESSION: 1. Dilated small bowel loops with a transition zone in the pelvis suggestive of ileus versus obstruc tion. Follow-up advised. Slightly thickened wall of the small bowel in the pelvis is also noted which may indicate enteritis. Clinical correlation advised. 2. Hyperdensities in the liver and spleen unchanged from previous examination 3. Sliding hiatus hernia. 4. Minimal fullness of the right renal pelvis with no stones. Pelviureteric junction stenosis cannot be excluded. Reviewed, dictated and finalized at location A. IMPRESSION: 1. Dilated small bowel loops with a transition zone in the pelvis suggestive o f ileus versus obstruction. Follow-up advised. Slightly thickened wall of the s mall bowel in the pelvis is also noted which may indicate enteritis. Clinical c orrelation advised. 2. Hyperdensities in the liver and spleen unchanged from previous examination 3. Sliding hiatus hernia. 4. Minimal fullness of the right renal pelvis with no stones. Pelviureteric ju nction stenosis cannot be excluded.
[2024-11-28 04:10] VITALS: BP 228/54; PULSE 82; RESP 15; TEMP 36.6; O2SAT 100
[2024-11-28 04:35] LABS: Basophils Percent Auto 0.3 % (0.2-1.2); Eosinophils Absolute Auto 0.1 K/mm3 (0-0.3); Eosinophils Percent Auto 0.6 % (0-4.4); Hematocrit 35.2 % (37.0-47.0); Hemoglobin 12.5 g/dL (12.0-15.0); Immature Granulocyte Absolute 0.05 K/mm3 (0.00-0.031); Immature Granulocyte Percent A 0.4 % (0-0.5); Lymphocytes Absolute Auto 2.03 K/mm3 (0.9-3.2); Lymphocytes Percent Auto 16.1 % (18.3-44.2); Mean Corpuscular HGB Conc 35.5 g/dl (32-36); Mean Corpuscular Hemoglobin 32.2 pg (26-34); Mean Corpuscular Volume 90.7 fl (80-100); Mean Platelet Volume 9.2 fl (7.4-10.4); Monocytes Absolute Auto 0.7 K/mm3 (0.1-0.6); Monocytes Percent Auto 5.7 % (2.6-8.5); Neutrophils Absolute Auto 9.7 K/mm3 (1.3-6.7); Neutrophils Percent Auto 76.9 % (45.5-73.1); Platelet Count Result 271 k/mm3 (150-375); Red Blood Count 3.88 M/mm3 (4.2-5.4); Red Cell Distribution Width 12.6 % (11.5-14.5); White Blood Count 12.6 K/mm3 (4.5-10.0)
[2024-11-28 04:45] LABS: Alanine Aminotransferase 21 U/L (6-35); Albumin Level 4.5 g/dL (3.5-5.1); Alkaline Phosphatase 137 U/L (38-126); Anion Gap 11 mmol/L (4-12); Aspartate Amino Transferase 26 U/L (14-36); Bilirubin,Total 1.3 mg/dL (0.2-1.3); Blood Urea Nitrogen 10 mg/dL (7-17); Calcium 9.7 mg/dL (8.4-10.2); Carbon Dioxide 22 mmol/L (22-30); Chloride 89 mmol/L (98-107); Estimated Glomerular Filt Rate > 60; Glucose 158 mg/dL (65-110); Lipase 35 U/L (23-300); Potassium 4.2 mmol/L (3.4-5.0); Sodium 122 mmol/L (137-145)
[2024-11-28 06:08] VITALS: BP 198/66; PULSE 75; RESP 15; O2SAT 99
[2024-11-28 06:21] LABS: Add Urine Microscopic? NO; Appearance Urine Clear (Clear); Bilirubin Urine Negative (Negative); Blood Urine Negative (Negative); Color Urine Yellow (Yellow); Glucose Urine UA Negative (Negative); Ketones Urine Negative (Negative); Leukocyte Esterase Ur Negative LEU/UL (Negative); Nitrate Urine Negative (Negative); Protein Urine Negative (Negative); Urobilinogen Urine 0.2 mg/dL (<2.0); pH Urine 5.5 (5.0-9.0)
--- OUTSIDE RECORDS SUMMARY | 2024-11-28 07:01 | XMS_ITS | Encounter Summary ---
Author Organization [facility] Facility Care Team Providers Care Pasteuriser Operator Name Role Phone Don Alejandre MD Primary Care Provider [phone] Alona Jones MD Primary Care Provider Attila Pemberton MD Primary Care Provider Kathleen Garcia [employer] Primary Care Provider [phone] Keerthi Ace [employer]PER[employer] Primary Care Provider [phone] Neli Moura DO Primary Care Provider + Encounter Details Date Type Department Care Team (Latest Contact Info) Description 04/13/2018 Orders Only [facility] CLINCONV Provider, MD [place] [address] [place] [address] Social History Tobacco Use Types Packs/Day Years Used Date Smoking Tobacco: Never Assessed Comments Unknown Sex and Gender Information Value Date Recorded Sex Assigned at Not on file Legal Sex Female 2:12 AM BIAS BINDING CUTTER Gender Identity Not on file Sexual Orientation Not on file documented as of this encounter Plan of Treatment Upcoming Encounters Date Type Department Care Team (Latest Contact Info) Description 12/08/2024 8:30 AM CDT Hospital Encounter [facility] Operating Room [address] [place] [address] [place] [address] [place] [address] Stenosis of left carotid artery 12/08/2024 8:30 AM CDT - 12/08/2024 1:35 PM CDT Surgery [facility] Operating Room [address] [place] [address] [place] [address] [place] [address] LEFT CAROTID ENDARTERECTOMY documented as of this encounter Procedures Procedure Name Priority Date/Time Associated Diagnosis Comments SCAN - LABS 04/13/2018 12:00 AM CDT documented in this encounter Results * SCAN - LABS (04/13/2018 12:00 AM CDT) Narrative 04/13/2018 12:00 AM CDT Ordered by an unspecified provider. Historical Provider Final Res ult documented in this encounter Visit Diagnoses Not on filedocumented in this encounter Care Teams Pasteuriser Operator Relationship Specialty Start Date End Date Don Alejandre MD [address] [place] [address] PCP - General Family Practice 02/16/18 06/13/19 Alona Jones MD [address] [place] [address] PCP - General Family Medicine 06/14/19 11/12/20 Attila Pemberton MD [address] [place] [address] PCP - General Family Practice 11/13/20 12/13/21 Kathleen Garcia NP [address] [place] [address] PCP - General Nurse Practitioner 12/14/21 04/02/23 Keerthi Ace, FRANDY [address] [place], [place] [id number] PCP - General Family Medicine 04/03/23 03/25/24 Neli Moura DO [address] [facility] [address] [place] [id number] PCP - General Family Medicine 03/26/24 documented as of this encounter
--- OUTSIDE RECORDS SUMMARY | 2024-11-28 07:01 | XMS_ITS | Encounter Summary ---
Author Organization [facility] Address [facility] [place] [address] Care Team Providers Care Legal Writing Professor Name Role Phone Jeffy Penaloza MD Primary Care Provider [phone] Encounter Details Date Type Department Care Team (Late st Contact Info) Description 12/15/2020 Prep for Procedure [facility] One Day Services [address] [place] [address] Quincy Richmond, DMD [address] [place] [address] Social History Tobacco Use Types [...] DETECTED NOT DETECTED 12/20/2020 2:01 PM CDT [facility] Comment: A Not Detected (negative) test result [...] providers and patients using the following websites: https://www.[employer] Software.[employer]/home/Covid-19/HCP/QuestIVD/fact- sheet.html https://www.[employer]/home/Covid-19/Patients/ QuestIVD/fact-sheet.html This test has been authorized by the FDA under an Emergency Use Authorization (EUA) for use by authorized laboratories. Due to the current public health emergency, [employer] is receiving a high volume of samples [...] about COVID-19 can be found at the [employer] website: www.Tapit.[employer]/Covid19. Test performed at [facility] [place] [address] [place] [address] Director: SHONA GARCIA DO,MPH FIRST TEST NO 12/19/2020 10:15 AM [facility] EMPLOYED IN HEALTHCARE NO 12/19/2020 10:15 AM [facility] SYMPTOMATIC DEFINED BY CDC UNKNOWN 12/19/2020 10:15 AM CDT [facility] DATE OF SYMPTOM ONSET UNKNOWN 12/19/2020 10:40 AM CDT [facility] HOSPITALIZATION STATUS NO 12/19/2020 10:15 AM CDT [facility] PATIENT IN ICU NO 12/19/2020 10:15 AM CDT [facility] RESIDENT OF CONGREGATE CARE NO 12/19/2020 10:15 AM CDT [facility] NO 12/19/2020 10:40 AM CDT [facility] PATIENT'S RACE WHITE OR 12/19/2020 10:15 AM CDT [facility] ETHNICITY NONHISPANIC 12/19/2020 10:15 AM CDT [facility] SOURCE (QST) NASOPHARYNGEAL SWAB 12/19/2020 10:15 AM CDT [facility] NASOPHARYNGEAL SWAB / Unknown 12/19/2020 10:17 AM CDT us Quincy Richmond DMD MICROBIOLOGY - GENERAL ORD ERABLES Final Result Performing Organization Address City/State/[facility] Co de Phone Number [facility] [address] [place] [address], [facility] [address] [place] [address], documented in this encounter Visit Diagnoses Diagnosis Preop testing- Primary Preoperative examination, unspecified documented in this encounter Additional Health Concerns Infection Onset Date Last Indicated Resolved Time COVID-19 Rule Out 12/19/2020 12/19/2020 12/20/2020 2:01 PM CDT documented as of this encounter Care Teams Legal Writing Professor Relationship Specialty Start Date End Date Jeffy Penaloza MD [address] - [facility] [address] [place] [address] PCP - General INTERNAL MEDICINE 06/12/20 documented as of this encounter
--- OUTSIDE RECORDS SUMMARY | 2024-11-28 07:01 | XMS_ITS | Clinical Summary ---
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 Brilinta is expensive and therefore will switch to Plavix 75 mg daily. I will prescribe patient sublingual nitroglycerin to be taken as needed for chest pain. Will reassess her symptoms next visit. 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 Discussed R/B/A of anti-VEGF but given severely diminished visual acuity (VA) and chronicity of at least 6 months , patient wishes to defer. 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 type 2 diabetes mellitus ([facility]) 05/31/2016 Hammer toe 05/31/2016 Ulcer of toe ([facility]) 05/31/2016 Keratoconjunctivitis sicca 10/17/2015 Bony pelvic pain 01/02/2015 Abnormal mammogram 09/30/2014 Knee pain 01/14/2014 Pigmentary degeneration of iris 12/09/2011 Diabetes mellitus ([facility]) 07/25/2011 Osteoarthrosis 05/13/2011 Rheumatoid arthritis involvi ng multiple sites ([facility]) 01/12/2011 Overview (11/04/2023): Description: Rheumatoid Arthritis Trochanteric [...] Comments Blood Pressure 126/74 11/04/2023 10:36 AM EXCHANGE CONSULTANT Pulse 72 11/04/2023 10:36 AM EXCHANGE CONSULTANT Temperature 36.8 C (98.2 F) 11/04/2023 10:36 AM EXCHANGE CONSULTANT Respiratory Rate 18 11/04/2023 10:36 AM EXCHANGE CONSULTANT Oxygen Saturation 96% 11/04/2023 10:36 AM EXCHANGE CONSULTANT Inhaled Oxygen Concentration - - Weight 63.5 kg (140 lb) 11/04/2023 10:36 AM EXCHANGE CONSULTANT Height 149.9 cm (4' 11 ) 11/04/2023 10:36 AM EXCHANGE CONSULTANT Body Mass Index 28.28 11/04/2023 10:36 AM EXCHANGE CONSULTANT Plan of Treatment Health Maintenance Due Date Last Done Comments ASCVD LDL 1943 ASCVD Statin 1943 Kidney Health Evaluation 1943 Hemoglobin A1C 1943 Lipid Panel 1943 PHQ-2 (Physician Harriet) 1955 Diabetes: Retinopathy Eye Exam 1961 Zoster [...] 07/14/2019, 07/14/2019, Additional history exists PHQ-2 (Physician Harriet) 09/15/2024 DTaP, Tdap and Td Vaccines (3 [...] age to complete this topic Insurance MEDICARE [facility] Advance Directives Documents on File Type Date Recorded Patient Rn Interventional Expl anation Power of Lead Designer 10/29/2023 4:40 PM POA P aperwork * Full Code (Latest Code Status on File) Date Activated Date Inactivated Comments 12/22/2020 8:59 AM 12/22/2020 1:37 PM Care Teams Toolroom Clerk Relationship Specialty Start Date End Date Jeffy Penaloza MD [address] [place] [id number] PCP - General INTERNAL MEDICINE 06/12/20
--- OUTSIDE RECORDS SUMMARY | 2024-11-28 07:01 | XMS_ITS | Encounter Summary ---
Author Organization [facility] Address [address] [place] [address] Care Team Providers Care Cube Cutter Name Role Phone MouraOksana sealsbeth Veronica DERAS Primary Care Provider + Encounter Details Date Type Department Care Team (Late st Contact Info) Description 11/02/2024 Telephone [facility] Cardiology [address] [place] [address] Alfredo Pedraza MD [address] [place] [address] Social History Tobacco Use Types Packs/Day Years Used Date Smoking Tobacco: Never Smokeless Tobacco: Never Alcohol Use Standard Drinks/Week Comments No 0 (1 standard drink = 0.6 oz pur e alcohol) [facility] Utilities Answer Date Recorded In the past 12 months has [employer], gas, oil, or water jobandtalent threatened to shut off services in your home? No 11/05/2024 Humiliation, Afraid, Rape, and Kick questionnair e Answer Date Recorded Within the last year, have y ou been afraid of your partner or ex-partner? No 11/05/2024 Within the last year, have y ou been humiliated or emotionally abused in other ways by your partner or ex-partner? No Within the last year, have y ou been kicked, hit, slapped, or otherwise physically hurt by your partner or ex-partner? No 11/05/2024 Within the last year, have y ou been raped or forced to have any kind of sexual activity by your partner or ex-partner? No 11/05/2024 Social Connection and Isolat ion Panel [NHANES] Answer Date Recorded In a typical week, how many times do you talk on the phone with family, friends, or neighbors? More than three times a week 11/05/2024 How often do you get togethe r with friends or relatives? More than three times a week 11/05/2024 How often do you attend chur ch or yazidi services? Never 11/05/2024 Do you belong to any clubs o r organizations such as catholic groups, unions, fraternal or athletic groups, or school groups? No 11/05/2024 How often do you attend meet ings of the clubs or organizations you belong to? Never 11/05/2024 Are you , , di vorced, , never , or living with a partner? 11/05/2024 AUDIT-C Answer Date Recorded Q1: How often do you have a drink containing alcohol? Never 11/05/2024 Q2: How many drinks containi ng alcohol do you have on a typical day when you are drinking? Patient does not drink Q3: How often do you have si x or more drinks on one occasion? Never 11/05/2024 Overall Financial Resource Strain (CARDIA) Answe r Date Recorded How hard is it for you to pa y for the very basics like food, housing, medical care, and heating? Not hard at all 11/05/2024 [facility] - Occupational Stress Questionnaire Answer Date Recorded Do you feel stress - tense, restless, nervous, or anxious, or unable to sleep at night because your mind is troubled all the time - these days? Only a little 11/05/2024 Exercise Vital Sign Answer Date Recorde d On average, how many days pe r week do you engage in moderate to strenuous exercise (like a brisk walk)? 0 days 11/05/2024 On average, how many minutes do you engage in exercise at this level? 0 min 11/05/2024 Hunger Vital Sign Answer Date Recorded Within the past 12 months, y ou worried that your food would run out before you got the money to buy more. Never true 11/05/19 25 Within the past 12 months, t he food you bought just didn't last and you didn't have money to get more. Never true 11/05/2024 PRAPARE - Transportation Answer Date Re corded In the past 12 months, has l ack of transportation kept you from medical appointments or from getting medications? No 10/17 In the past 12 months, has l ack of transportation kept you from meetings, work, or from getting things needed for daily living? No 11/05/2024 Housing Stability Vital Sign Answer Mateo e Recorded In the last 12 months, was t here a time when you were not able to pay the mortgage or rent on time? No 11/05/2024 In the past 12 months, how m any times have you moved where you were living? 0 11/05/2024 At any time in the past 12 m [facility], were you homeless or living in a fci (including now)? No 11/05/2024 Personal Safety Answer Date Recorded Have you ever been in or are you currently in a harmful physical or emotional relationship or is someone making you feel afraid or unsafe? Denies 11/05/2024 Comments No Sex and Gender Information Value Date Recorded Sex Assigned at Not on file Legal Sex Female 2:12 AM SECTION HAND Gender Identity Not on file Sexual Orientation Not on file documented as of this encounter Functional Status * Audit-C Score Answer Date of Assessment Author 0 11/05/2024 6:39 PM Lalita Rice RN * Intimate Partner Violence Question Answer Date of Assessment Author Within the last year, have y ou been humiliated or emotionally abused in other ways by your partner or ex-partner? No 11/05/2024 6:39 PM Aviva Jin RN Within the last year, have y ou been afraid of your partner or ex-partner? No 11/05/2024 6:39 PM Lily Jin RN Within the last year, have y ou been raped or forced to have any kind of sexual activity by your partner or ex-partner? No 11/05/2024 6:39 PM Lalita Rice RN Within the last year, have y ou been kicked, hit, slapped, or otherwise physically hurt by your partner or ex-partner? No 11/05/2024 6:39 PM SECTION HAND Lalita Nava RN * Question Answer Date of Assessment Author Q1: How often do you have a drink containing alcohol? Never 11/05/2024 6:39 PM Lalita Jin RN Q2: How many drinks containing alcohol do you have on a typical day when you are drinking? Patient does not drink 11/05/2024 6:39 PM Lalita Jin RN Q3: How often do you have six or more drinks on one occasion? Never 11/05/2024 6:39 PM SECTION HAND Lalita Hurt RN documented as of this encounter Miscellaneous Notes * Telephone Encounter - Tanvir Bose MA - 11/02/2024 3:23 PM CST PA done ION HAND * Telephone Encounter - Marcie Napier - 11/02/2024 10:31 AM CST Reina from [facility] called to report PA is required for guanFACINE (TENEX) 1 mg. Also states pt is requesting refill for Hydralazine. Contact: ION HAND documented in this encounter Plan of Treatment Upcoming Encounters Date Type Department Care Team (Latest Contact Info) Description 12/08/2024 8:30 AM CDT Hospital Encounter [facility] Operating Room [address] [place] [address] [place] [address] [facility] [address] [place] [address] Stenosis of left carotid artery 12/08/2024 8:30 AM CDT - 12/08/2024 1:35 PM CDT Surgery [facility] Operating Room [address] [place] [address] [place] [address] [place] [address] LEFT CAROTID ENDARTERECTOMY documented as of this encounter Visit Diagnoses Not on filedocumented in this encounter Care Teams Cube Cutter Relationship Specialty Start Date End Date Neli Moura DO [address] [place] [address] [address] [place] [address] PCP - General Family Medicine 03/26/24 documented as of this encounter
--- OUTSIDE RECORDS SUMMARY | 2024-11-28 07:01 | XMS_ITS | Encounter Summary ---
Author Organization [facility] Address [facility] [place] [address] Care Team Providers Care Quality Control Lab Tech Name Role Phone Jeffy Penaloza MD Primary Care Provider [phone] Encounter Details Date Type Department Care Team (Late st Contact Info) Description 06/12/2020 Prep for Procedure [facility] One Day Services [address] [place] [address] Quincy Richmond, DMD [address] [place] [address] Social History Tobacco Use Types [...] DETECTED NOT DETECTED 06/14/2020 2:56 PM CDT [facility] Comment: A Not Detected (negative) [...] providers and patients using the following websites: https://www.Clari.[employer]/home/Covid-19/HCP/QuestIVD/fact- sheet.html https://www.Clari.[employer]/home/Covid-19/Patients/ QuestIVD/fact-sheet.html This test has been authorized by the FDA under an Emergency Use Authorization (EUA) for use by authorized laboratories. Due to the current public health emergency, [employer] is receiving a high volume of samples [...] about COVID-19 can be found at the [employer] website: www.Athersys.[employer]/Covid19. Test performed at [facility] [place] [address] [place] [address] Director: SHONA GARCIA DO,MPH FIRST TEST NO 06/13/2020 1:53 PM CDT [facility] EMPLOYED IN HEALTHCARE NO 06/13/2020 1:53 PM CDT [facility] SYMPTOMATIC DEFINED BY CDC NO 06/13/2020 1:53 PM CDT [facility] HOSPITALIZATION STATUS NO 06/13/2020 1:53 PM CDT [facility] PATIENT IN ICU NO 06/13/2020 1:53 PM CDT [facility] RESIDENT OF CONGREGATE CARE NO 06/13/2020 1:53 PM CDT [facility] NO 06/13/2020 2:17 PM CDT [facility] PATIENT'S RACE OTHER 06/13/2020 1:53 PM CDT [facility] ETHNICITY UNKNOWN 06/13/2020 1:53 PM CDT [facility] SOURCE (QST) NASOPHARYNGEAL SWAB 06/13/2020 1:53 PM CDT [facility] NASOPHARYNGEAL SWAB / Unknown 06/13/2020 1:58 PM CDT us Quincy Richmond DMD MICROBIOLOGY - GENERAL ORD ERABLES Final Result Performing Organization Address City/[facility] Co de Phone Number [facility] [address] [place] [address], [facility] [address] [place] [address], documented in this encounter Visit Diagnoses Diagnosis Preop testing- Primary Preoperative examination, unspecified documented in this encounter Additional Health Concerns Infection Onset Date Last Indicated Resolved Time COVID-19 Rule Out 06/13/2020 06/13/2020 06/14/2020 2:56 PM CDT COVID-19 Rule Out 12/19/2020 12/19/2020 12/20/2020 2:01 PM CDT documented as of this encounter Care Teams Quality Control Lab Tech Relationship Specialty Start Date End Date Jeffy Penaloza MD [address] [place] [address] PCP - General INTERNAL MEDICINE 06/12/20 documented as of this encounter
--- OUTSIDE RECORDS SUMMARY | 2024-11-28 07:01 | XMS_ITS | Referral Summary ---
Author Organization [facility] Address [address] [place] [address] Care Team Providers Care Recreation Teacher Name Role Phone Moura Nelipilar Martin DO Primary Care Provider + Encounters Date Type Department Care Team Description 11/22/2024 Telephone [facility] Medical [facility] Cardiology [address] [place] [phone] Alfredo Pedraza MD 11/15/2024 1:00 PM RETIREMENT SALES CONSULTANT Office Visit [facility] Cardiology [address] [place] [phone] Alfredo Pedraza MD PAF (paroxysmal atrial fibrillation) (HCC) (Primary Dx); History of carotid artery disease; 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; Mixed hyperlipidemia; Resistant hypertension 11/05/2024 9:59 AM RETIREMENT SALES CONSULTANT - 11/11/2024 1:28 PM RETIREMENT SALES CONSULTANT Hospital Encounter [address] [phone] Lesly Mendoza MD Davidson, MD Mariaelena Harvey Amjad, MD Diagnosis unknown (Primary Dx); Small bowel obstruction (HCC); Abdominal pain Discharge Disposition: Discharge to home or self care 11/08/2024 2:44 PM RETIREMENT SALES CONSULTANT Anesthesia Event [address] [phone] Nadiya Garcia NP 11/02/2024 Telephone [facility] Medical [facility] Cardiology [address] [place] [address] Route [facility] [address] [place] [phone] Alfredo Pedraza MD 10/25/2024 Telephone [facility] Cardiology [address] [place] [address] Route [facility] [address] [place] [phone] Mae Mac MA Med Refill 10/22/2024 Telephone [facility] [address] [place] [address] Medical Office Building [address] [place] [phone] aDyana Neal RMA Scheduling Appointments 10/18/2024 Telephone [facility] Cardiology [address] [place] [address] [place] [phone] Alfredo Pedraza MD Med Refill 10/08/2024 Telephone [facility] [address] [place] [address] Medical Office Building [address] [place] [phone] Carolina Maria NP 10/06/2024 Telephone [facility] [address] [place] [address] Medical Office Building [address] [place] [phone] Dayana Neal RMA Med Management 10/04/2024 Telephone [facility] Cardiology [address] [place] [address] [place] [phone] Alfredo Pedraza MD 10/02/2024 8:18 AM RETIREMENT SALES CONSULTANT - 10/02/2024 4:06 PM [facility] Emergency [facility] Emergency Department [id number] [place] [phone] Dawson Reyez MD Chest tightness (Primary Dx); Accelerated hypertension Discharge Disposition: Discharge to home or self care 09/29/2024 Telephone [facility] Cardiology [address] [place] [address] [place] [phone] Alfredo Pedraza MD 09/29/2024 Telephone [facility] [address] [place] [address] Medical Office Building [address] [place] [phone] Dayana Neal RMA Surgery Confirmation 09/17/2024 11:59 PM RETIREMENT SALES CONSULTANT Anesthesia Event [facility] Operating Room [address] [place] [phone] Andi Benedict MD 09/17/2024 10:00 AM RETIREMENT SALES CONSULTANT Pre-Admission Testing [facility] [address] [place] [phone] Preoperative testing (Primary Dx) 09/06/2024 Telephone [facility] [address] 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; History of carotid artery disease; Mixed hyperlipidemia; Hypertensive heart disease with heart failure (HCC) from Last 3 Months Allergies No known active allergies Medications busPIRone (BUSPAR) 10 mg tabletIndicatio ns:Generalized Anxiety Disorder Take 1 tablet (10 mg total) by mouth 2 (two) times a day Active levothyroxine (SYNTHROID, LEVOTHROID) 88 mcg tabletIndicatio ns:hypothyroidi sm Take 1 tablet (88 mcg total) by mouth melter caster before breakfast Active aspirin 81 mg tabletIndicatio ns:OTC / Heart health Take 1 tablet (81 mg total) by mouth every morning Active montelukast (SINGULAIR) 10 mg tabletIndicatio ns:Maintenance Therapy for Asthma Take 1 tablet (10 mg total) by mouth daily 01/04/20 19 Active fluticasone propionate (FLONASE) 50 mcg/actuation nasal spray Administer 1 spray into each nostril 2 (two) times a day as needed for rhinitis or allergies Active cyanocobalamin (Vitamin B-12) 1,000 mcg tabletIndicatio ns:Prevention of Vitamin B12 Deficiency,OTC / Take 1 tablet (1,000 mcg total) by mouth every morning Active magnesium oxide (MAG-OX) 400 mg (241.3 mg elemental magnesium) tabletIndicatio ns:Paroxysmal atrial fibrillation (HCC) TAKE 1 TABLET (400 MG TOTAL) BY MOUTH EVERY MORNING 90 tablet 3 05/03/20 24 Active folic acid (FOLVITE) 1 mg tabletIndicatio ns:Rheumatoid arthritis involving multiple sites (HCC) Take 3 tablets (3,000 mcg total) by mouth daily 270 tablet 1 06/28/20 24 Active Additional Information Patient taking differently:3,000 mcg oralEvery morning, Indications: Folate Deficiency, Informant: Self, Reported on 11/15/2024 ferrous sulfate 325 mg (65 mg of elemental iron) tabletIndicatio ns:Iron Deficiency Anemia,OTC Take 1 tablet (325 mg total) by mouth every morning 05/28/[address] (PROTONIX) 40 mg EC tablet Take 1 tablet (40 mg total) by mouth every morning 05/28/20 24 Active polyethylene glycol (MIRALAX) 17 gram packetIndicatio ns:constipation Take 1 packet (17 g total) by mouth daily Active atorvastatin (LIPITOR) 40 mg tabletIndicatio ns:hyperlipidem ia Take 1 tablet (40 mg total) by mouth nightly Active ezetimibe (ZETIA) 10 mg tablet Take 1 tablet (10 mg total) by mouth nightly Active nitroglycerin (NITROSTAT) 0.[address] 1 tablet (0.4 mg total) under the tongue every 5 (five) minutes as needed for chest pain 90 tablet 1 07/16/20 24 2024 Active sodium chloride 1,000 mg tablet Take 1 tablet (1 g total) by mouth 2 (two) times a day 180 tablet 3 07/16/20 24 Active oxyCODONE-aceta minophen (PERCOCET) 10-325 mg per tabletIndicatio ns:Pain Take 1 tablet by mouth every 6 (six) hours as needed for pain for up to 35 doses 35 tablet 07/16/20 24 Active Eliquis 2.5 mg tablet Take 1 tablet (2.5 mg total) by mouth every 12 (twelve) hours 60 tablet 11 09/29/19 25 2025 Active guanFACINE (TENEX) 1 mg tablet Take 1 tablet (1 mg total) by mouth nightly 30 tablet 10/04/19 25 2025 Active albuterol (PROAIR RESPICLICK) 90 mcg/actuation inhaler Inhale 2 puffs every 6 (six) hours as needed for wheezing 1 each 11/10/19 25 2025 Active linaCLOtide (LINZESS) 290 mcg capsuleIndicati ons:Constipatio n Predominant Irritable Bowel Syndrome Take 1 capsule (290 mcg total) by mouth daily before breakfast 30 capsule 3 11/11/19 25 Active losartan (COZAAR) 100 mg tablet Take 1 tablet (100 mg total) by mouth daily 30 tablet 11/11/19 25 2025 Active bisacodyl EC (DULCOLAX EC) 5 mg EC tabletIndicatio ns:constipation Take 1 tablet (5 mg total) by mouth daily 30 tablet 11/10/19 25 Active simethicone (MYLICON) 80 mg chewable tablet Take 2 tablets (160 mg total) by mouth 4 (four) times a day as needed for flatulence 30 tablet 11/10/19 25 Active AMILoride (MIDAMOR) 5 mg tablet Take 1 tablet (5 mg total) by mouth daily 30 tablet 11/16/19 25 2025 Active hydrALAZINE (APRESOLINE) 25 mg tabletIndicatio ns:hypertension Take 1 tablet (25 mg total) by mouth 3 (three) times a day 90 tablet 11/16/19 Active doxazosin (CARDURA) 1 mg tablet Take 1 tablet (1 mg total) by mouth nightly 30 tablet 11/26/19 25 2025 Active ADVAIR DISKUS 250-50 mcg/dose diskus inhalerIndicati ons:Maintenance Therapy for Asthma Inhale 1 puff nightly 5 01/22/20 18 2024 Discontinued(T herapy completed) albuterol sulfate 90 mcg/actuation aerosol powdr breath activated Inhale 2 puffs 4 (four) times a day as needed for wheezing or shortness of breath 2024 Discontinued(T herapy completed) amiodarone (PACERONE) 200 mg tabletIndicatio ns:PAF (paroxysmal atrial fibrillation) (HCC) Take 1 tablet (200 mg total) by mouth daily 90 tablet 3 03/26/20 24 2024 Discontinued(S top Taking at Discharge) Linzess 145 mcg capsuleIndicati ons:functional constipation Take 1 capsule (145 mcg total) by mouth every morning 05/12/20 24 2024 Discontinued(S top Taking at Discharge) meclizine (ANTIVERT) 25 mg tablet Take 1 tablet (25 mg total) by mouth 3 (three) times a day as needed for dizziness or nausea for up to 45 doses 45 tablet 07/16/20 24 2024 Discontinued nebivoloL (BYSTOLIC) 2.5 mg tablet Take 1 tablet (2.5 mg total) by mouth daily 30 tablet 11 07/17/20 24 2024 Discontinued(S top Taking at Discharge) losartan (COZAAR) 50 mg tablet Take 1 tablet (50 mg total) by mouth daily 30 tablet 11 07/17/20 24 2024 Discontinued(S top Taking at Discharge) artificial tears, dextran-hyprome llose-glycerin, (GENTEAL TEARS MODERATE) 0.1-0.3-0.2 % Administer 1 drop into both eyes 4 (four) times a day as needed (dry eyes) 30 mL 1 07/16/20 24 2024 Discontinued(T herapy completed) calcium carbonate (TUMS) 500 mg (200 mg elemental calcium) chewable tablet Take 1 tablet/chew tab (500 mg total) by mouth 3 (three) times a day as needed for indigestion or heartburn for up to 80 doses 40 tablet/chew tab 1 07/16/20 24 2024 Discontinued miconazole (SECURA THICK) 2 % cream Apply topically 2 (two) times a day 28.35 g 1 07/16/20 24 2024 Discontinued(T herapy completed) lidocaine (LIDODERM) 5 % Place 1 patch on the skin daily Remove & discard patch within 12 hours or as directed by . 30 patch 1 07/16/20 24 2024 Discontinued(T herapy completed) acetaminophen (TYLENOL) 325 mg suppository Insert 1 suppository (325 mg total) into the rectum every 4 (four) hours as needed 2024 Discontinued hydrALAZINE (APRESOLINE) 25 mg tabletIndicatio ns:hypertension Take 1 tablet (25 mg total) by mouth 3 (three) times a day 90 tablet 10/02/19 25 2024 Discontinued(R eorder) enoxaparin (LOVENOX) 60 mg/0.6 mL syringe Inject 0.6 mL (60 mg total) under the skin every 12 (twelve) hours WILL HOLD ELIQUIS WHILE ON LOVENOX - LAST DOSE OF ELIQUIS IS 10/08. WILL TAKE LOVENOX 10/09-10/11. NO ELIQUIS OR LOVENOX ON 10/12 3.6 mL 10/06/19 25 2024 Discontinued(T herapy completed) spironolactone (ALDACTONE) 25 mg tabletIndicatio ns:hypertension Take 0.5 tablets (12.5 mg total) by mouth every morning 45 tablet 2 10/18/19 25 2024 Discontinued hydrALAZINE (APRESOLINE) 25 mg tabletIndicatio ns:hypertension Take 1 tablet (25 mg total) by mouth 3 (three) times a day 90 tablet 11/04/19 25 2024 Discontinued(S top Taking at Discharge) hydrALAZINE (APRESOLINE) 25 mg tabletIndicatio ns:hypertension Take 1 tablet (25 mg total) by mouth 3 (three) times a day 2024 Discontinued(R eorder) Active Problems Problem Noted Date Diagnosed Date Puncture wound of left wrist 11/11/2024 Assessment & Plan (11/11/2024 11:15 AM RETIREMENT SALES CONSULTANT): 11/11 patient had me examine her left wrist (photo loaded in EPIC) stated wound occurred due to EMS poking site with a pen on accident site is bruised with a scab present, no drainage or warmth noted to the site. Mood disorder 11/06/2024 Assessment & Plan (11/07/2024 10:50 AM RETIREMENT SALES CONSULTANT): Home regimen: buspar, guanfacine (held while NPO) 11/07 resumed Chronic pain 11/06/2024 Assessment & Plan (11/10/2024 8:07 AM RETIREMENT SALES CONSULTANT): Home regimen: percocet QID PRN, last dispensed 11/01 for #56 tabs --- hold on oral narcotics until diet advanced as not to cloud picture iso SBO 11/10 resumed Hypothyroidism 11/06/2024 Assessment & Plan (11/07/2024 10:49 AM RETIREMENT SALES CONSULTANT): Home regimen: levothyroxine (held while NPO) - plan to initiate IV dosing if NPO >5d per [facility] policy 11/07 resumed Discharge planning issues 11/06/2024 Assessment & Plan (11/11/2024 11:22 AM RETIREMENT SALES CONSULTANT): 11/06 barrier to discharge: PO tolerance, ADD Friday pending formal PT eval 11/07 barrier to discharge: PO tolerance; ADD Friday pending PT 11/08 barrier to discharge: PO tolerance; ADD Friday/Friday if remains non-op 11/09 barrier to discharge: PO tolerance; PT/OT recs for placement, patient prefers to discharge home reports home is safe space given age-related limitations; ADD Friday/11/10 barrier to discharge: ongoing PO tolerance, BP control; ADD tomorrow 11/11 Patient is medically stable for discharge, SW/CM updated. Discharge pending family to provide transportation Encounter for medication review 11/06/2024 Assessment & Plan (11/06/2024 11:09 AM RETIREMENT SALES CONSULTANT): 11/06 epic dispense report reviewed and updated in ADMISSIONS tab At risk for malnutrition 11/06/2024 Assessment & Plan (11/10/2024 8:07 AM RETIREMENT SALES CONSULTANT): 11/06 Body mass index is 26.26 kg/m ., current diet: NPO, last intake: 11/03, RD consulted for malnutrition evaluation, surveillance nutrition labs ordered 11/07 CLD started 11/08 hold on diet advancement iso abd cramping, KUB ordered (NL), made NPO for ongoing cramping 11/09 symptoms resolved, suspect consequence of oral contrast, resume CLD 11/10 tolerated advancement to regular diet yesterday, low volume intake, avoiding supplements c/f GI upset LABS 11/06 albumin 3.7, prealbumin 17 Small bowel obstruction 11/05/2024 Assessment & Plan (11/11/2024 11:14 AM RETIREMENT SALES CONSULTANT): PSHx: 1990s: cholecystectomy, KELLY 10/2023 OSH: [facility] Previous obstructive events: 09/2024 OSH SBO: managed nonoperatively SCOPE HISTORY EGD: none on file Colonoscopy: none on file 11/05 presented to OSH ([facility]) with abdominal pain, CT e/o TP @ TI with possible internal hernia and ?SMV thrombus, NGT placed 11/06 rads overread: small bowel obstruction with transition point at the terminal ileum; NGT output low, abdomen soft, small bowel challenge initiated 11/07 AFVSS, wbc 10 from 11, hgb stable, abdomen soft, PASSED small bowel challenge, multiple BMs overnight and this AM, remove NGT and start CLD 11/08 AFVSS, wbc 10 from 10, hgb stable, abd soft, c/o cramping and pain with CLD - diet not advanced, KUB ordered, IPAP consulted (no further pre-op intervention warranted), later made NPO for ongoing cramping 11/09 AFVSS, wbc 7 from 10, hgb stable, abd soft, ongoing bowel function, reports cramping/pain resolved - suspect exaggerated response to oral contrast from challenge, resume CLD 11/10 AFVSS, wbc 6 from 7, hgb stable, abd soft, ongoing bowel function c/o gas pains - simethicone ordered, tolerating regular diet albeit low volume intake, requesting to resume home linzess at higher dose (ordered) and dulco tabs (ordered) 11/11 VS stable, tolerating PO, will discharge to home today Hx of non-ST elevation myocardial infarction (NS MENG) 11/05/2024 Diastolic dysfunction 09/28/2024 Assessment & Plan (11/10/2024 12:02 PM RETIREMENT SALES CONSULTANT): TTE 07/06/2024: EF 70%, G1DD Home regimen: hydralazine, losartan, aldactone (held while NPO) IV antihypertensives PRN 11/07 resume hydralazine and losartan, hold aldactone until tolerating regular diet 11/08 BP much improved, continue to hold aldactone 11/09 increase hydralazine dosing given continued need for IV antihypertensives, can likely resume previous dose when aldactone resumed once tolerating diet 11/10 remains hypertensive, increase cozaar and resume aldactone --- plan to DC on new doses if tolerating, CM obtaining PCP appt for ongoing titration Assessment & Plan (09/28/2024 9:18 AM RETIREMENT SALES CONSULTANT): - Diastolic dysfunction w/o CHF. Diastolic function: stage I - impaired relaxation LVEF: >70% Asthma 09/28/2024 Assessment & Plan (11/10/2024 12:06 PM RETIREMENT SALES CONSULTANT): Albuterol PRN --- plan to discharge with new inhaler (ordered), as patient has not used hers at home, f/u with PCP (CM facilitating) Assessment & Plan (09/28/2024 9:29 AM RETIREMENT SALES CONSULTANT): - Continue home albueterol and advair - IS - OOB when able PAF (paroxysmal atrial fibrillation) 05/12/2023 Assessment & Plan (11/10/2024 12:04 PM RETIREMENT SALES CONSULTANT): Home rate control regimen: nebivolol, amiodarone (held while NPO) --- scheduled IV metoprolol not initiated given HR 50s-60s, EKG 11/05 NSR 1st degree AVB Home anticoagulation regimen: eliquis 2.5mg (held while NPO, last dose 11/04) TTE 07/06/2024: EF 70%, G1DD Telemetry, goal HR <110 11/07 nebivolol resumed, hold amio given HR 60s 11/08 HR 40s this AM, nebivolol held, continue to hold amio, EKG ordered <-- sinus lyndon 11/09-11/10 previous records reviewed, last echo with HR 49, continue to hold nebivolol and amio --- CM assistance with coordinating close outpatient follow up Assessment & Plan (09/28/2024 9:20 AM RETIREMENT SALES CONSULTANT): Home regimen: amiodarone, Eliquis - continue amiodarone [...] degeneration of both eyes 01/28/2022 Hyponatremia 05/28/2021 Assessment & Plan (11/07/2024 10:49 AM RETIREMENT SALES CONSULTANT): Chronic dating back to <2018 Baseline Na: 125-133 Home regimen: 1g NaCl tabs TID (held while NPO) 11/07 resumed Hypertensive heart disease with heart failure Pigmentary glaucoma of both eyes, 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 Resistant hypertension 03/22/2019 Assessment & Plan (11/06/2024 11:02 AM RETIREMENT SALES CONSULTANT): See DIASTOLIC DYSFUNCTION parameter for management Assessment & Plan (09/28/2024 9:22 AM RETIREMENT SALES CONSULTANT): - Home regimen: hydralazine, losartan, nebivolol, spirnolactone - VS Q2 hrs and PRN - OU - resume home meds as able Rheumatoid arthritis involving multiple sites History of carotid artery disease 10/14/2017 Assessment & Plan (11/10/2024 8:10 AM RETIREMENT SALES CONSULTANT): Scheduled for left carotid endarterectomy 11/12 with Khetarpaul Home regimen: ASA, plavix (last dose 11/04) 11/07 passed small bowel challenge, start CLD, continue cangrelor until diet tolerance declared 11/08-11/10 continue cangrelor --- surgery cancelled, [facility] office will contact patient for rescheduling Dyspnea on exertion 09/23/2017 Assessment & Plan [...] agrees. Assessment & Plan (09/23/2017 1:48 PM RETIREMENT SALES CONSULTANT): Negative Lexiscan nuclear stress test back in August 2017. She does have strong family history for coronary artery disease. Will re-evaluate next visit. Evidence of type 1 diastolic dysfunction on echocardiogram. Mixed hyperlipidemia 09/23/2017 Assessment & Plan (02/16/2018 9:11 AM CDT): Continue Lipitor. Assessment & Plan (12/29/2017 1:10 PM CDT): Continue Lipitor 40 mg p.o. daily. Assessment & Plan (09/23/2017 1:49 PM RETIREMENT SALES CONSULTANT): L continue Lipitor. 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 Diabetes mellitus 07/25/2011 Assessment & Plan (11/07/2024 10:47 AM RETIREMENT SALES CONSULTANT): Last A1c 06/2024: 5.6 Home regimen: none Current diet: NPO SSI while inpatient, goal BG <180 A1c 11/06: 5.5 Assessment & Plan (09/28/2024 9:20 AM RETIREMENT SALES CONSULTANT): HgbA1c 5.6, not on any home medications - Monitor glucose with daily labs - Carb consistent diet when eating Osteoarthritis 05/13/2011 Trochanteric bursitis 01/12/2011 Overview (12/26/2017): Description: Trochanteric Bursitis Rheumatoid arthritis 01/12/2011 Overview (12/26/2017): Description: Rheumatoid Arthritis Assessment & Plan (11/06/2024 10:59 AM RETIREMENT SALES CONSULTANT): Home regimen: none Irritable bowel syndrome 11/03/2010 Assessment & Plan (11/10/2024 12:04 PM RETIREMENT SALES CONSULTANT): Home regimen: linzess, mag oxide (held while NPO) - resume home regimen when tolerating regular diet --- patient requesting to resume linzess 11/10 (ordered for AM dosing 11/11) at higher rate than previously taking, reports that PCP had intended to do so as needed, CM assisting with obtaining PCP appt on discharge Gastroesophageal reflux disease 11/03/2010 Assessment & Plan (11/07/2024 10:49 AM RETIREMENT SALES CONSULTANT): Home regimen: protonix - IV formulation while NPO - resume home formulation when tolerating regular diet Pseudophakia 08/23/2010 Coronary artery disease invo lving yurok coronary artery of yurok heart with angina pectoris Assessment & Plan (11/10/2024 8:08 AM RETIREMENT SALES CONSULTANT): S/p JOSE to RCA x2 (06/2024) Home regimen: asa, plavix (last doses 11/04), lipitor, ezetimibe TTE 07/06/2024: EF 70%, G1DD 11/06 start cangrelor infusion while NPO 11/07-11/10 passed small bowel challenge, see alt parameter for diet modifications, continue cangrelor until diet tolerance declared Assessment & Plan (09/28/2024 9:15 AM RETIREMENT SALES CONSULTANT): S/p RCA stenting 07/08 - continue ASA, [...] Stenosis of left carotid artery 08/16/2024 09/06/2024 Carotid stenosis 08/16/2024 11/19/2024 Assessment & Plan (09/28/2024 9:20 AM RETIREMENT SALES CONSULTANT): 09/28: s/p Left carotid endarterectomy - OU, Q2 hr NM checks - SBP goal 110-150 - Bedrest overnight, OOB POD #1 - Clear liquid diet, advance in am - DC Toro in am - Pain control - Monitor incisions for bleeding/hematoma - IS Myocardial infarction involv ing right coronary artery 07/06/2024 09/06/2024 Acute chest pain 07/05/2024 09/06/2024 Chest pain 07/02/2024 09/06/2024 Premature atrial contractions 07/23/2019 09/06/2024 Preoperative cardiovascular examination 07/23/2019 06/25/2021 Abnormal stress test 06/25/2019 019 Overview (06/25/2019): Added automatically from request for surgery [id number] Chest pain 06/25/2019 10/29/2021 Overview (06/25/2019): Added automatically from request for surgery [id number] Essential hypertension, malignant 09/23/2017 03/22/2019 Assessment & Plan (02/16/2018 9:10 AM CDT): Blood pressure is much better controlled. Continue current treatment. Assessment & Plan (12/29/2017 1:10 PM CDT): Blood pressure well controlled. Continue current treatment. Assessment & Plan (09/23/2017 1:48 PM RETIREMENT SALES CONSULTANT): Blood pressure is controlled today however patient states that her blood pressure runs high at home. I will bring patient 2 weeks and re-evaluate her blood pressure as well as re-evaluate her blood pressure log. I asked the patient also to bring her blood pressure machine to compare her home reading with our readings here. Immunizations Immunization Administration Dates Next Due COVID-19 mRNA (Efizity) 0.3 m L (30 mcg) vaccine (12 [...] drink = 0.6 oz pur e alcohol) [facility] Utilities Answer Date Recorded In the past 12 months has [facility] [employer], gas, oil, or water [employer] threatened to shut off services in your home? No 11/09/2024 Humiliation, Afraid, Rape, and Kick questionnair e [...] neighbors? More than three times a week 11/09/2024 How often do you get togethe r with friends or relatives? More than three times a week 11/09/2024 How often do you attend chur or adventism services? More than 4 times per year 11/09/2024 Do you belong to any clubs o r organizations such as mandaeism groups, unions, fraternal or athletic groups, or school groups? Yes 11/09/2024 How often do you attend meet ings of the clubs or organizations you belong to? 1 to 4 times per year 11/09/2024 Are you , , di vorced, , never , or living with a partner? 11/09/2024 AUDIT-C Answer Date Recorded Q1: How often [...] care, and heating? Not hard at all 11/09/2024 PHQ-2 Answer Date Recorded PHQ-2 Total Score 0 11/09/2024 [facility] - Occupational Stress [...] the money to buy more. Never true 11/09/19 Within the past 12 months, t he food you bought just didn't last and you didn't have money to get more. Never true 11/09/2024 PRAPARE - Transportation Answer Date Re corded In the past 12 months, has l ack of transportation kept you from medical appointments or from getting medications? No 10/17 In the past 12 months, has l ack of transportation kept you from meetings, work, or from getting things needed for daily living? No 11/09/2024 Housing Stability Vital Sign Answer Mateo e Recorded In the last 12 months, was t here a time when you were not able to pay the mortgage or rent on time? No 11/09/2024 In the past 12 months, how m any times have you moved where you were living? 0 11/09/2024 At any time in the past 12 m [facility], were you homeless or living in a halfway (including now)? No 11/09/2024 Personal Safety Answer Date Recorded Have you ever been in or are you currently in a harmful physical or emotional relationship or is someone making you feel afraid or unsafe? Denies 11/05/2024 Comments No Sex and Gender Information Value Date Recorded Sex Assigned at Not on file Legal Sex Female 2:12 AM RETIREMENT SALES CONSULTANT Gender Identity Not on file Sexual Orientation Not on file Last Filed Vital Signs Vital Sign Reading Time Taken Comments Blood Pressure 210/82 11/15/2024 12:53 PM RETIREMENT SALES CONSULTANT Pulse 68 11/15/2024 12:53 PM RETIREMENT SALES CONSULTANT Temperature 36.8 C (98.2 F) 11/11/2024 11:20 AM RETIREMENT SALES CONSULTANT Respiratory Rate 18 11/11/2024 8:05 AM RETIREMENT SALES CONSULTANT Oxygen Saturation 98% 11/15/2024 12:53 PM RETIREMENT SALES CONSULTANT Inhaled Oxygen Concentration - - Weight 57.6 kg (127 lb) 11/15/2024 12:53 PM RETIREMENT SALES CONSULTANT Height 149.9 cm (4' 11 ) 11/15/2024 12:53 PM RETIREMENT SALES CONSULTANT Body Mass Index 25.65 11/15/2024 12:53 PM RETIREMENT SALES CONSULTANT Plan of Treatment Upcoming Encounters Date Type Department Care Team (Latest Contact Info) Description 12/08/2024 8:30 AM CDT Hospital Encounter [facility] Operating Room [address] [place] [address] [place] [address] [address] [place] [address] Stenosis of left carotid artery 12/08/2024 8:30 AM CDT - 12/08/2024 1:35 PM CDT Surgery [facility] Operating Room [address] [place] [address] [place] [address] [address] [place] [address] LEFT CAROTID ENDARTERECTOMY Medical Devices Implanted Type Area Cover Seamer Device Identifier Shelf Expiration Date Model / Serial / Lot [employer] Stent Coronary Drug Eluting Rapid Exchange Synergy Megatron 3.70r09no [place] [employer] [id number] - [id number] Implanted:Qty: 1 on 07/06/2024 by Alfredo Pedraza MD at [facility] [employer] 11/19/2025 [id number] 350 / / [id number] [employer] Stent Drug Eluting S Megatron 3.50x8mm [id number] - [id number] Implanted:Qty: 1 on 07/06/2024 by Alfredo Pedraza MD at [facility] [employer] 07/07/2025 [id number] 350 / / [id number] [employer] Angio-Seal Vip 6fr Closere Device [id number] - [id number] Implanted:Qty: 1 on 07/06/2024 [id number] / / Procedures Procedure Name Priority Date/Time Associated Diagnosis Comments POCT GLUCOSE DEVICE Routine 11/11/2024 1 1:23 AM RETIREMENT SALES CONSULTANT POCT GLUCOSE DEVICE Routine 11/11/2024 8 :06 AM RETIREMENT SALES CONSULTANT XR ABDOMEN AP 1 VIEW Timed 11/11/2024 5:03 AM RETIREMENT SALES CONSULTANT POCT GLUCOSE DEVICE Routine 11/11/2024 4 :39 AM RETIREMENT SALES CONSULTANT POCT GLUCOSE DEVICE Routine 11/11/2024 1 2:14 AM RETIREMENT SALES CONSULTANT EGFR Routine 11/10/2024 8:33 PM RETIREMENT SALES CONSULTANT BASIC METABOLIC PANEL Routine 11/10/2024 8:33 PM RETIREMENT SALES CONSULTANT CBC WITHOUT DIFFERENTIAL Routine 11/10/2024 8:33 PM RETIREMENT SALES CONSULTANT MAGNESIUM Routine 11/10/2024 8:33 PM RETIREMENT SALES CONSULTANT PHOSPHORUS Routine 11/10/2024 8:33 PM RETIREMENT SALES CONSULTANT POCT GLUCOSE DEVICE Routine 11/10/2024 8 :18 PM RETIREMENT SALES CONSULTANT POCT GLUCOSE DEVICE Routine 11/10/2024 5 :30 PM RETIREMENT SALES CONSULTANT POCT GLUCOSE DEVICE Routine 11/10/2024 1 1:43 AM RETIREMENT SALES CONSULTANT POCT GLUCOSE DEVICE Routine 11/10/2024 7 :49 AM RETIREMENT SALES CONSULTANT XR ABDOMEN AP 1 VIEW Timed 11/10/2024 5:56 AM RETIREMENT SALES CONSULTANT POCT GLUCOSE DEVICE Routine 11/10/2024 4 :22 AM RETIREMENT SALES CONSULTANT POCT GLUCOSE DEVICE Routine 11/10/2024 1 2:23 AM RETIREMENT SALES CONSULTANT EGFR Routine 11/09/2024 10:18 PM RETIREMENT SALES CONSULTANT BASIC METABOLIC PANEL Routine 11/09/2024 10:18 PM RETIREMENT SALES CONSULTANT CBC WITHOUT DIFFERENTIAL Routine 11/09/2024 10:18 PM RETIREMENT SALES CONSULTANT MAGNESIUM Routine 11/09/2024 10:18 PM RETIREMENT SALES CONSULTANT PHOSPHORUS Routine 11/09/2024 10:18 PM RETIREMENT SALES CONSULTANT POCT GLUCOSE DEVICE Routine 11/09/2024 8 :27 PM RETIREMENT SALES CONSULTANT POCT GLUCOSE DEVICE Routine 11/09/2024 5 :23 PM RETIREMENT SALES CONSULTANT POCT GLUCOSE DEVICE Routine 11/09/2024 1 1:59 AM RETIREMENT SALES CONSULTANT POCT GLUCOSE DEVICE Routine 11/09/2024 8 :43 AM RETIREMENT SALES CONSULTANT XR ABDOMEN AP 1 VIEW Timed 11/09/2024 6:03 AM RETIREMENT SALES CONSULTANT POCT GLUCOSE DEVICE Routine 11/09/2024 4 :25 AM RETIREMENT SALES CONSULTANT POCT GLUCOSE DEVICE Routine 11/09/2024 1 2:13 AM RETIREMENT SALES CONSULTANT EGFR Routine 11/08/2024 9:05 PM RETIREMENT SALES CONSULTANT BASIC METABOLIC PANEL Routine 11/08/2024 9:05 PM RETIREMENT SALES CONSULTANT CBC WITHOUT DIFFERENTIAL Routine 11/08/2024 9:05 PM RETIREMENT SALES CONSULTANT MAGNESIUM Routine 11/08/2024 9:05 PM RETIREMENT SALES CONSULTANT PHOSPHORUS Routine 11/08/2024 9:05 PM RETIREMENT SALES CONSULTANT POCT GLUCOSE DEVICE Routine 11/08/2024 8 :09 PM RETIREMENT SALES CONSULTANT POCT GLUCOSE DEVICE Routine 11/08/2024 5 :46 PM RETIREMENT SALES CONSULTANT POCT GLUCOSE DEVICE Routine 11/08/2024 1 2:18 PM RETIREMENT SALES CONSULTANT ECG 12-LEAD Routine 11/08/2024 10:21 AM RETIREMENT SALES CONSULTANT POCT GLUCOSE DEVICE Routine 11/08/2024 7 :33 AM RETIREMENT SALES CONSULTANT XR ABDOMEN AP 1 VIEW Timed 11/08/2024 5:32 AM RETIREMENT SALES CONSULTANT POCT GLUCOSE DEVICE Routine 11/08/2024 4 :17 AM RETIREMENT SALES CONSULTANT POCT GLUCOSE DEVICE Routine 11/07/2024 1 1:50 PM RETIREMENT SALES CONSULTANT POCT GLUCOSE DEVICE Routine 11/07/2024 8 :33 PM RETIREMENT SALES CONSULTANT EGFR Routine 11/07/2024 7:46 PM RETIREMENT SALES CONSULTANT BASIC METABOLIC PANEL Routine 11/07/2024 7:46 PM RETIREMENT SALES CONSULTANT CBC WITHOUT DIFFERENTIAL Routine 11/07/2024 7:46 PM RETIREMENT SALES CONSULTANT MAGNESIUM Routine 11/07/2024 7:46 PM RETIREMENT SALES CONSULTANT PHOSPHORUS Routine 11/07/2024 7:46 PM RETIREMENT SALES CONSULTANT POCT GLUCOSE DEVICE Routine 11/07/2024 4 :20 PM RETIREMENT SALES CONSULTANT XR ABDOMEN AP 1 VIEW IP Routine 11/07/2024 12:00 PM RETIREMENT SALES CONSULTANT POCT GLUCOSE DEVICE Routine 11/07/2024 1 1:46 AM RETIREMENT SALES CONSULTANT URINALYSIS AND REFLEX TO MICROSCOPIC AND CULTURE STAT 11/07/2024 9:43 AM RETIREMENT SALES CONSULTANT POCT GLUCOSE DEVICE Routine 11/07/2024 8 :03 AM RETIREMENT SALES CONSULTANT XR ABDOMEN AP 1 VIEW Timed 11/07/2024 5:24 AM RETIREMENT SALES CONSULTANT POCT GLUCOSE DEVICE Routine 11/07/2024 5 :11 AM RETIREMENT SALES CONSULTANT POCT GLUCOSE DEVICE Routine 11/07/2024 1 2:17 AM RETIREMENT SALES CONSULTANT XR ABDOMEN AP 1 VIEW IP Routine 11/06/2024 9:52 PM RETIREMENT SALES CONSULTANT EGFR Routine 11/06/2024 9:34 PM RETIREMENT SALES CONSULTANT HEMOGLOBIN A1C Routine 11/06/2024 9:34 PM RETIREMENT SALES CONSULTANT ALBUMIN Routine 11/06/2024 9:34 PM RETIREMENT SALES CONSULTANT PREALBUMIN Routine 11/06/2024 9:34 PM RETIREMENT SALES CONSULTANT BASIC METABOLIC PANEL Routine 11/06/2024 9:34 PM RETIREMENT SALES CONSULTANT CBC WITHOUT DIFFERENTIAL Routine 11/06/2024 9:34 PM RETIREMENT SALES CONSULTANT MAGNESIUM Routine 11/06/2024 9:34 PM RETIREMENT SALES CONSULTANT PHOSPHORUS Routine 11/06/2024 9:34 PM RETIREMENT SALES CONSULTANT POCT GLUCOSE DEVICE Routine 11/06/2024 8 :08 PM RETIREMENT SALES CONSULTANT XR ABDOMEN AP 1 VIEW IP Routine 11/06/2024 4:15 PM RETIREMENT SALES CONSULTANT POCT GLUCOSE DEVICE Routine 11/06/2024 4 :00 PM RETIREMENT SALES CONSULTANT POCT GLUCOSE DEVICE Routine 11/06/2024 1 2:00 PM RETIREMENT SALES CONSULTANT XR ABDOMEN AP 1 VIEW ED Urgent/IP Urgent 11/06/2024 6:54 AM RETIREMENT SALES CONSULTANT EGFR Routine 11/05/2024 10:27 PM RETIREMENT SALES CONSULTANT LACTATE Routine 11/05/2024 10:27 PM RETIREMENT SALES CONSULTANT BASIC METABOLIC PANEL Routine 11/05/2024 10:27 PM RETIREMENT SALES CONSULTANT CBC WITHOUT DIFFERENTIAL Routine 11/05/2024 10:27 PM RETIREMENT SALES CONSULTANT MAGNESIUM Routine 11/05/2024 10:27 PM RETIREMENT SALES CONSULTANT PHOSPHORUS Routine 11/05/2024 10:27 PM RETIREMENT SALES CONSULTANT PROTIME-INR STAT 11/05/2024 11:51 AM RETIREMENT SALES CONSULTANT APTT STAT 11/05/2024 11:51 AM RETIREMENT SALES CONSULTANT TYPE AND SCREEN STAT 11/05/2024 11:51 AM RETIREMENT SALES CONSULTANT XR ABDOMEN AP 1 VIEW ED Urgent/IP Urgent 11/05/2024 11:26 AM RETIREMENT SALES CONSULTANT XR TRANSFER OF OUTSIDE FILMS Routine 11/05/2024 11:[address]ES [address]ANT [address] BODY OUTSIDE CONSULT Routine 11/05/2024 11:11 AM RETIREMENT SALES CONSULTANT Diagnosis unknown BILIRUBIN, DIRECT STAT 11/05/2024 10: 53 AM RETIREMENT SALES CONSULTANT EGFR STAT 11/05/2024 10:53 AM RETIREMENT SALES CONSULTANT DIFFERENTIAL AUTO Routine 11/05/2024 10: 53 AM RETIREMENT SALES CONSULTANT LACTATE STAT 11/05/2024 10:53 AM RETIREMENT SALES CONSULTANT CBC WITH AUTO DIFFERENTIAL Routine 11/05/2024 10:53 AM RETIREMENT SALES CONSULTANT COMPREHENSIVE METABOLIC PANEL STAT 11/05/2024 10:53 AM RETIREMENT SALES CONSULTANT ECG 12-LEAD STAT 11/05/2024 10:21 AM RETIREMENT SALES CONSULTANT TROPONIN T HIGH-SENSITIVITY 2-HOUR STAT 10/02/2024 1:47 PM RETIREMENT SALES CONSULTANT TROPONIN T HIGH-SENSITIVITY SERIES (BASELINE, 2HR, 4HR, 6HR) STAT 10/02/2024 10:14 AM RETIREMENT SALES CONSULTANT RI CRITICAL CARE ILL/INJURED PATIENT INIT 30-74 MIN Routine 10/02/2024 9:59 AM RETIREMENT SALES CONSULTANT EGFR STAT 10/01/2024 11:52 PM RETIREMENT SALES CONSULTANT DIFFERENTIAL AUTO STAT 10/01/2024 11: 52 PM RETIREMENT SALES CONSULTANT TROPONIN T HIGH-SENSITIVITY SERIES (BASELINE, 2HR, 4HR, 6HR) STAT 10/01/2024 11:52 PM RETIREMENT SALES CONSULTANT COMPREHENSIVE METABOLIC PANEL STAT 10/01/2024 11:52 PM RETIREMENT SALES CONSULTANT CBC WITH AUTO DIFFERENTIAL STAT 10/01/2024 11:52 PM RETIREMENT SALES CONSULTANT ECG 12-LEAD Routine 10/01/2024 11:45 PM RETIREMENT SALES CONSULTANT EGFR Routine 09/17/2024 12:20 PM RETIREMENT SALES CONSULTANT Preoperative testing COMPREHENSIVE METABOLIC PANEL Routine 09/17/2024 12:20 PM RETIREMENT SALES CONSULTANT Preoperative testing CBC WITHOUT DIFFERENTIAL Routine 09/17/2024 12:20 PM RETIREMENT SALES CONSULTANT Preoperative testing TYPE AND SCREEN 14 DAY Routine 09/17/2024 12:20 PM RETIREMENT SALES CONSULTANT Preoperative testing LIPID PANEL Timed 07/05/2024 10:45 AM CDT from Last 3 Months or Most Recently Relevant to Health Maintenance Results * POCT glucose (11/11/2024 11:23 AM RETIREMENT SALES CONSULTANT) Glucose, POC 171 70 - 199 mg/dL Blood 11/11/2024 11:2 3 AM RETIREMENT SALES CONSULTANT 11/11/2024 11:23 AM RETIREMENT SALES CONSULTANT Chi Daivdson MD LAB POCT ORDERABLES - DEVICE Fi nal Result [facility] [place] [address] * POCT glucose (11/11/2024 8:06 AM RETIREMENT SALES CONSULTANT) Glucose, POC 112 70 - 199 mg/dL Blood 11/11/2024 8:06 AM RETIREMENT SALES CONSULTANT 11/11/2024 8:06 AM RETIREMENT SALES CONSULTANT [facility] Chirag Davidson MD LAB POCT ORDERABLES - DEVICE Fi nal Result [facility] Department [place] [address] * XR Abdomen Ap 1 Vw (11/11/2024 5:03 AM RETIREMENT SALES CONSULTANT) Anatomical Region Laterality Modality Body, Abdomen N/A Computed Radiogr aphy 11/11/2024 8:22 AM RETIREMENT SALES CONSULTANT Impressions 11/11/2024 8:25 AM RETIREMENT SALES CONSULTANT Normal bowel gas pattern. Contrast seen within the rectum. Cholecystectomy clips. Vascular calcifications. Dictated by: Dwight Daniels MD PHD The radiology attending physician has personally reviewed this study, and had reviewed and/or edited this written report and agrees with it. Electronically signed by: Julissa Joy M.D. Narrative 11/11/2024 8:25 AM RETIREMENT SALES CONSULTANT EXAMINATION: Abdomen, one view. HISTORY: Evaluate dilation COMPARISON: 11/10/2024 Procedure Note Julissa Joy MD - 11/11/2024 EXAMINATION: Abdomen, one view. HISTORY: Evaluate dilation COMPARISON: 11/10/2024 IMPRESSION: Normal bowel gas pattern. Contrast seen within the rectum. Cholecystectomy clips. Vascular calcifications. Dictated by: Dwight Daniels MD PHD The radiology attending physician has personally reviewed this study, and had reviewed and/or edited this written report and agrees with it. Electronically signed by: Julissa Joy M.D. Analy [employer] FIELD FOREMAN IMG XR PROCEDURES Final Re sult * POCT glucose (11/11/2024 4:39 AM RETIREMENT SALES CONSULTANT) Glucose, POC 118 70 - 199 mg/dL Comment:Glu2: RN/MD Notified Glucose comment 1 Glu2: RN/MD Notified [facility] Blood 11/11/2024 4:39 AM RETIREMENT SALES CONSULTANT 11/11/2024 4:39 AM RETIREMENT SALES CONSULTANT us Chi Davidson MD LAB POCT ORDERABLES - DEVICE Fi nal Result [facility] [place] [address] * POCT glucose (11/11/2024 12:14 AM RETIREMENT SALES CONSULTANT) Glucose, POC 122 70 - 199 mg/dL Blood 11/11/2024 12:1 4 AM RETIREMENT SALES CONSULTANT 11/11/2024 12:14 AM RETIREMENT SALES CONSULTANT Chi Davidson MD LAB POCT ORDERABLES - DEVICE Fi nal Result Performing Organization Address [facility] Co de Phone Number [facility] [place] [address] * (ABNORMAL) eGFR (11/10/2024 8:33 PM RETIREMENT SALES CONSULTANT) eGFR 47(L) >=60 mL/min/1. 73 m2 Comment: Interpretive Data [...] interpretive data was last reviewed 2021. Blood 11/10/2024 8:33 PM RETIREMENT SALES CONSULTANT 11/10/2024 9:22 PM RETIREMENT SALES CONSULTANT Chi Davidson MD LAB BLOOD ORDERABLES Final Resu lt Performing Organization Address City/[facility]/ZIP Co de Phone Number [facility] [place] [address] * (ABNORMAL) CBC without differential (11/10/2024 8:33 PM RETIREMENT SALES CONSULTANT) Pathologist [facility] WBC 7.6 3.8 - 9.9 K/cumm Hgb 12.2 11.9 - 15.5 g/dL [facility] Hct 35.9 35.6 - 45.5 % [facility] Plt 215 150 - 400 K/cumm [facility] MPV 10.1 9.1 - 12.3 fL [facility] RBC 3.85(L) 3.90 - 5.20 M/cumm [facility] MCV 93.2 81.3 - 96.4 fL [facility] MCH 31.7 27.1 - 33.3 pg [facility] MCHC 34.0 32.3 - 35.7 g/dL [facility] RDW CV 13.1 11.1 - 14.9 % [facility] RDW SD 44.6 35.7 - 48.1 fL [facility] NRBC abs 0.00 0.00 - 0.01 K/cumm [facility] Blood 11/10/2024 8:33 PM RETIREMENT SALES CONSULTANT 11/10/2024 9:23 PM RETIREMENT SALES CONSULTANT Chi Davidson MD LAB BLOOD ORDERABLES Final Resu lt Performing Organization Address City/[facility]/ZIP Co de Phone Number [facility] Department [place] [address] * Phosphorus (11/10/2024 8:33 PM RETIREMENT SALES CONSULTANT) Pathologist [facility] Phosphorus, pl 3.4 2.3 - 4.5 mg/dL Blood 11/10/2024 8:33 PM RETIREMENT SALES CONSULTANT 11/10/2024 9:22 PM RETIREMENT SALES CONSULTANT Chi Davidson MD LAB BLOOD ORDERABLES Final Resu lt [facility] Department [place] [address] * Magnesium (11/10/2024 8:33 PM RETIREMENT SALES CONSULTANT) Pathologist [facility] Magnesium 2.1 1.4 - 2.5 mg/dL Blood 11/10/2024 8:33 PM RETIREMENT SALES CONSULTANT 11/10/2024 9:22 PM RETIREMENT SALES CONSULTANT Chi Davidson MD LAB BLOOD ORDERABLES Final Resu lt Performing Organization Address City/[facility]/ZIP Co de Phone Number [facility] Department [place] [address] * (ABNORMAL) Basic metabolic panel (11/10/2024 8:33 PM RETIREMENT SALES CONSULTANT) Pathologist [facility] Sodium 136 135 - 145 mmol/L Potassium, pl 4.1 3.3 - 4.9 mmol/L [facility] Chloride 99 97 - 110 mmol/L [facility] CO2 26 22 - 32 mmol/L [facility] Anion gap 11 2 - 15 mmol/L [facility] BUN 12 6 - 25 mg/dL [facility] Creatinine 1.16(H) 0.60 - 1.10 mg/dL [facility] Glucose 181 70 - 199 mg/dL [facility] Comment: Interpretive Data Fasting glucose [...] interpretive data was last revised 2022. Calcium 8.6 8.5 - 10.3 mg/dL [facility] Blood 11/10/2024 8:33 PM RETIREMENT SALES CONSULTANT 11/10/2024 9:22 PM RETIREMENT SALES CONSULTANT Chi Davidson MD LAB BLOOD ORDERABLES Final Resu lt Performing Organization Address [facility] [place] [address] * POCT glucose (11/10/2024 8:18 PM RETIREMENT SALES CONSULTANT) Glucose, POC 169 70 - 199 mg/dL Comment:Glu2: RN/MD Notified Glucose comment 1 Glu2: RN/MD Notified [facility] Blood 11/10/2024 8:18 PM RETIREMENT SALES CONSULTANT 11/10/2024 8:18 PM RETIREMENT SALES CONSULTANT Chi Davidson MD LAB POCT ORDERABLES - DEVICE Fi nal Result Performing Organization Address [facility] de Phone Number [facility] [place] [place] [address] * POCT glucose (11/10/2024 5:30 PM RETIREMENT SALES CONSULTANT) Glucose, POC 110 70 - 199 mg/dL Blood 11/10/2024 5:30 PM RETIREMENT SALES CONSULTANT 11/10/2024 5:30 PM RETIREMENT SALES CONSULTANT Chi Davidson MD LAB POCT ORDERABLES - DEVICE Fi nal Result Performing Organization Address [facility] de Phone Number [facility] [place] [address] * (ABNORMAL) POCT glucose (11/10/2024 11:43 AM RETIREMENT SALES CONSULTANT) Glucose, POC 221(H) 70 - 199 mg/dL Comment:Glu2: RN/MD Notified Glucose comment 1 Glu2: RN/MD Notified [facility] Blood 11/10/2024 11:4 3 AM RETIREMENT SALES CONSULTANT 11/10/2024 11:43 AM RETIREMENT SALES CONSULTANT Chi Davidson MD LAB POCT ORDERABLES - DEVICE Fi nal Result Performing Organization Address City/[facility] Co de Phone Number [facility] Department [place] [address] * POCT glucose (11/10/2024 7:49 AM RETIREMENT SALES CONSULTANT) Glucose, POC 108 70 - 199 mg/dL Blood 11/10/2024 7:49 AM RETIREMENT SALES CONSULTANT 11/10/2024 7:49 AM RETIREMENT SALES CONSULTANT [place] Chirag Davidson MD LAB POCT ORDERABLES - DEVICE Fi nal Result Performing Organization Address [facility] Phone Number [facility] Department [place] [address] * XR Abdomen Ap 1 Vw (11/10/2024 5:56 AM RETIREMENT SALES CONSULTANT) Anatomical Region Laterality Modality Body, Abdomen N/A Digital Radiogra phy 11/10/2024 8:34 AM RETIREMENT SALES CONSULTANT Impressions 11/10/2024 4:06 PM RETIREMENT SALES CONSULTANT Cholecystectomy clips in place. Extensive vascular calcification. Minimal amount of retained contrast in the distal colon. No dilated air-filled small bowel loops to suggest small bowel obstruction. Dictated by: Katty Addison M.D. The radiology attending physician has personally reviewed this study, and had reviewed and/or edited this written report and agrees with it. Electronically signed by: Chi Hickey M.D. Narrative 11/10/2024 4:06 PM RETIREMENT SALES CONSULTANT EXAMINATION: Abdomen, one view. HISTORY: Prior small bowel obstruction, volvulus and small bowel resection. COMPARISON: 11/09/2024 at 5:52 AM radiograph. Procedure Note Chi Hickey MD - 11/10/2024 EXAMINATION: Abdomen, one view. HISTORY: Prior small bowel obstruction, volvulus and small bowel resection. COMPARISON: 11/09/2024 at 5:52 AM radiograph. IMPRESSION: Cholecystectomy clips in place. Extensive vascular calcification. Minimal amount of retained contrast in the distal colon. No dilated air-filled small bowel loops to suggest small bowel obstruction. Dictated by: Katty Addison M.D. The radiology attending physician has personally reviewed this study, and had reviewed and/or edited this written report and agrees with it. Electronically signed by: Chi Hickey M.D. us Analy [employer] FIELD FOREMAN IMG XR PROCEDURES Final Re sult * POCT glucose (11/10/2024 4:22 AM RETIREMENT SALES CONSULTANT) Glucose, POC 119 70 - 199 mg/dL Comment:Glu2: RN/ Notified Glucose comment 1 Glu2: RN/ Notified [facility] Blood 11/10/2024 4:22 AM RETIREMENT SALES CONSULTANT 11/10/2024 4:22 AM RETIREMENT SALES CONSULTANT Chi Davidson MD LAB POCT ORDERABLES - DEVICE Fi nal Result Performing Organization Address City/[facility] Co de Phone Number [facility] [place] [address] * POCT glucose (11/10/2024 12:23 AM RETIREMENT SALES CONSULTANT) [facility] Glucose, POC 110 70 - 199 mg/dL Comment:Glu2: DEMIAN/ Notified Glucose comment 1 Glu2: RN/MD Notified [facility] Blood 11/10/2024 12:2 3 AM RETIREMENT SALES CONSULTANT 11/10/2024 12:23 AM RETIREMENT SALES CONSULTANT Chi Davidson MD LAB POCT ORDERABLES - DEVICE Fi nal Result Performing Organization Address City/[facility]/ZIP Co de Phone Number [facility] [place] [address] * (ABNORMAL) eGFR (11/09/2024 10:18 PM RETIREMENT SALES CONSULTANT) eGFR 53(L) >=60 mL/min/1. 73 m2 Comment: Interpretive Data [...] interpretive data was last reviewed 2021. Blood 11/09/2024 10:1 8 PM RETIREMENT SALES CONSULTANT 11/09/2024 10:47 PM RETIREMENT SALES CONSULTANT us Chi Davidson MD LAB BLOOD ORDERABLES Final Resu lt [facility] Department [place] [address] * (ABNORMAL) CBC without differential (11/09/2024 10:18 PM RETIREMENT SALES CONSULTANT) Pathologist [facility] WBC 6.8 3.8 - 9.9 K/cumm Hgb 10.3(L) 11.9 - 15.5 g/dL [facility] Hct 29.8(L) 35.6 - 45.5 % [facility] Plt 185 150 - 400 K/cumm [facility] MPV 10.1 9.1 - 12.3 fL [facility] RBC 3.21(L) 3.90 - 5.20 M/cumm [facility] MCV 92.8 81.3 - 96.4 fL [facility] MCH 32.1 27.1 - 33.3 pg [facility] MCHC 34.6 32.3 - 35.7 g/dL [facility] RDW CV 13.0 11.1 - 14.9 % [facility] RDW SD 44.2 35.7 - 48.1 fL [facility] NRBC abs 0.00 0.00 - 0.01 K/cumm [facility] Blood 11/09/2024 10:1 8 PM RETIREMENT SALES CONSULTANT 11/09/2024 10:47 PM RETIREMENT SALES CONSULTANT Chi Davidson MD LAB BLOOD ORDERABLES Final Resu lt Performing Organization Address City/[facility]/ZIP Co de Phone Number [facility] [place] [address] * Phosphorus (11/09/2024 10:18 PM RETIREMENT SALES CONSULTANT) Pathologist [facility] Phosphorus, pl 3.7 2.3 - 4.5 mg/dL Blood 11/09/2024 10:1 8 PM RETIREMENT SALES CONSULTANT 11/09/2024 10:47 PM RETIREMENT SALES CONSULTANT Chi Davidson MD LAB BLOOD ORDERABLES Final Resu lt Performing Organization Address City/[facility] Co de Phone Number [facility] [place] [address] * Magnesium (11/09/2024 10:18 PM RETIREMENT SALES CONSULTANT) Pathologist [facility] Magnesium 1.5 1.4 - 2.5 mg/dL Blood 11/09/2024 10:1 8 PM RETIREMENT SALES CONSULTANT 11/09/2024 10:47 PM RETIREMENT SALES CONSULTANT Chi Davidson MD LAB BLOOD ORDERABLES Final Resu lt Performing Organization Address City/[facility] Co de Phone Number [facility] [place] [address] * (ABNORMAL) Basic metabolic panel (11/09/2024 10:18 PM RETIREMENT SALES CONSULTANT) Pathologist [facility] Sodium 137 135 - 145 mmol/L Potassium, pl 4.0 3.3 - 4.9 mmol/L [facility] Chloride 102 97 - 110 mmol/L [facility] CO2 28 22 - 32 mmol/L [facility] Anion gap 7 2 - 15 mmol/L [facility] BUN 9 6 - 25 mg/dL [facility] Creatinine 1.06 0.60 - 1.10 mg/dL [facility] Glucose 122 70 - 199 mg/dL [facility] Comment: Interpretive Data Fasting glucose [...] interpretive data was last revised 2022. Calcium 8.0(L) 8.5 - 10.3 mg/dL [facility] Blood 11/09/2024 10:1 8 PM RETIREMENT SALES CONSULTANT 11/09/2024 10:47 PM RETIREMENT SALES CONSULTANT Chi Davidson MD LAB BLOOD ORDERABLES Final Resu lt Performing Organization Address City/[facility]/ZIP Co de Phone Number [facility] [place] [address] * POCT glucose (11/09/2024 8:27 PM RETIREMENT SALES CONSULTANT) [facility] Glucose, POC 163 70 - 199 mg/dL Comment:Glu2: RN/MD Notified Glucose comment 1 Glu2: RN/MD Notified [facility] Blood 11/09/2024 8:27 PM RETIREMENT SALES CONSULTANT 11/09/2024 8:27 PM RETIREMENT SALES CONSULTANT Chi Davidson MD LAB POCT ORDERABLES - DEVICE [place] [address] * POCT glucose (11/09/2024 5:23 PM RETIREMENT SALES CONSULTANT) Glucose, POC 94 70 - 199 mg/dL Blood 11/09/2024 5:23 PM RETIREMENT SALES CONSULTANT 11/09/2024 5:23 PM RETIREMENT SALES CONSULTANT Chi Davidson MD LAB POCT ORDERABLES - DEVICE Fi nal Result Performing Organization Address City/[facility] [place] [place] [address] * POCT glucose (11/09/2024 11:59 AM RETIREMENT SALES CONSULTANT) Glucose, POC 117 70 - 199 mg/dL Blood 11/09/2024 11:5 9 AM RETIREMENT SALES CONSULTANT 11/09/2024 11:59 AM RETIREMENT SALES CONSULTANT Chi Davidson MD LAB POCT ORDERABLES - DEVICE Fi nal Result Performing Organization Address City/[facility]/[place] [address] * POCT glucose (11/09/2024 8:43 AM RETIREMENT SALES CONSULTANT) Glucose, POC 94 70 - 199 mg/dL Blood 11/09/2024 8:43 AM RETIREMENT SALES CONSULTANT 11/09/2024 8:43 AM RETIREMENT SALES CONSULTANT Chi Davidson MD LAB POCT ORDERABLES - DEVICE Fi nal Result Performing Organization Address City/[facility] [place] [place] [address] * XR Abdomen Ap 1 Vw (11/09/2024 6:03 AM RETIREMENT SALES CONSULTANT) Anatomical Region Laterality Modality Body, Abdomen N/A Digital Radiogra phy 11/09/2024 9:40 AM RETIREMENT SALES CONSULTANT Impressions 11/09/2024 3:28 PM RETIREMENT SALES CONSULTANT Cholecystectomy clips in place. Minimal hyperdense contrast material inside the colon. Normal bowel gas pattern. Dictated by: Katty Addison M.D. The radiology attending physician has personally reviewed this study, and had reviewed and/or edited this written report and agrees with it. Electronically signed by: Chi Hickey M.D. Narrative 11/09/2024 3:28 PM RETIREMENT SALES CONSULTANT EXAMINATION: Abdomen, one view. HISTORY: Dilation. COMPARISON: 11/08/2024 radiograph. Procedure Note Chi Hickey MD - 11/09/2024 EXAMINATION: Abdomen, one view. HISTORY: Dilation. COMPARISON: 11/08/2024 radiograph. IMPRESSION: Cholecystectomy clips in place. Minimal hyperdense contrast material inside the colon. Normal bowel gas pattern. Dictated by: Katty Addison M.D. The radiology attending physician has personally reviewed this study, and had reviewed and/or edited this written report and agrees with it. Electronically signed by: Chi Hickey M.D. us Analy [employer] FIELD FOREMAN IMG XR PROCEDURES Final Re sult * POCT glucose (11/09/2024 4:25 AM RETIREMENT SALES CONSULTANT) Glucose, POC 107 70 - 199 mg/dL Blood 11/09/2024 4:25 AM RETIREMENT SALES CONSULTANT 11/09/2024 4:25 AM RETIREMENT SALES CONSULTANT us Chi Davidson MD LAB POCT ORDERABLES - DEVICE Fi nal Result [facility] [place] [address] * POCT glucose (11/09/2024 12:13 AM RETIREMENT SALES CONSULTANT) Glucose, POC 111 70 - 199 mg/dL Blood 11/09/2024 12:1 3 AM RETIREMENT SALES CONSULTANT 11/09/2024 12:13 AM RETIREMENT SALES CONSULTANT Chi Davidson MD LAB POCT ORDERABLES - DEVICE Fi nal Result Performing Organization Address [facility] Co de Phone Number [facility] [place] [address] * eGFR (11/08/2024 9:05 PM RETIREMENT SALES CONSULTANT) eGFR 68 >=60 mL/min/1. 73 m2 Comment: Interpretive Data [...] interpretive data was last reviewed 2021. Blood 11/08/2024 9:05 PM RETIREMENT SALES CONSULTANT 11/08/2024 10:14 PM RETIREMENT SALES CONSULTANT Chi Davidson MD LAB BLOOD ORDERABLES Final Resu lt Performing Organization Address [facility] Co de Phone Number [facility] [place] [address] * (ABNORMAL) CBC without differential (11/08/2024 9:05 PM RETIREMENT SALES CONSULTANT) WBC 7.9 3.8 - 9.9 K/cumm Hgb 11.7(L) 11.9 - 15.5 g/dL [facility] Hct 34.5(L) 35.6 - 45.5 % [facility] Plt 240 150 - 400 K/cumm [facility] MPV 10.3 9.1 - 12.3 fL [facility] RBC 3.71(L) 3.90 - 5.20 M/cumm [facility] MCV 93.0 81.3 - 96.4 fL [facility] MCH 31.5 27.1 - 33.3 pg [facility] MCHC 33.9 32.3 - 35.7 g/dL [facility] RDW CV 13.2 11.1 - 14.9 % [facility] RDW SD 44.9 35.7 - 48.1 fL [facility] NRBC abs 0.00 0.00 - 0.01 K/cumm [facility] Blood 11/08/2024 9:05 PM RETIREMENT SALES CONSULTANT 11/08/2024 10:15 PM RETIREMENT SALES CONSULTANT Chi Davidson MD LAB BLOOD ORDERABLES Final Resu lt [facility] [place] [address] * Phosphorus (11/08/2024 9:05 PM RETIREMENT SALES CONSULTANT) Phosphorus, pl 4.2 2.3 - 4.5 mg/dL Blood 11/08/2024 9:05 PM RETIREMENT SALES CONSULTANT 11/08/2024 10:14 PM RETIREMENT SALES CONSULTANT Chi Davidson MD LAB BLOOD ORDERABLES Final Resu lt [facility] [place] [address] * Magnesium (11/08/2024 9:05 PM RETIREMENT SALES CONSULTANT) Magnesium 1.8 1.4 - 2.5 mg/dL Blood 11/08/2024 9:05 PM RETIREMENT SALES CONSULTANT 11/08/2024 10:14 PM RETIREMENT SALES CONSULTANT Chi Davidson MD LAB BLOOD ORDERABLES Final Resu lt Performing Organization Address City/[facility]/ZIP Co de Phone Number [facility] Department [place] [address] * Basic metabolic panel (11/08/2024 9:05 PM RETIREMENT SALES CONSULTANT) Pathologist [facility] Sodium 140 135 - 145 mmol/L Potassium, pl 4.3 3.3 - 4.9 mmol/L [facility] Chloride 104 97 - 110 mmol/L [facility] CO2 28 22 - 32 mmol/L [facility] Anion gap 8 2 - 15 mmol/L [facility] BUN 9 6 - 25 mg/dL [facility] Creatinine 0.86 0.60 - 1.10 mg/dL [facility] Glucose 125 70 - 199 mg/dL [facility] Comment: Interpretive Data Fasting glucose [...] classification and Diagnosis of Diabetes Diabetes Care 202; 46: S19-S40. Current interpretive data was last revised 2022. Calcium 8.5 8.5 - 10.3 mg/dL [facility] Blood 11/08/2024 9:05 PM RETIREMENT SALES CONSULTANT 11/08/2024 10:14 PM RETIREMENT SALES CONSULTANT Chi Davidson MD LAB BLOOD ORDERABLES Final Resu lt Performing Organization Address City/[facility]/ZIP Co de Phone Number [facility] Department [place] [address] * POCT glucose (11/08/2024 8:09 PM RETIREMENT SALES CONSULTANT) Glucose, POC 99 70 - 199 mg/dL Blood 11/08/2024 8:09 PM RETIREMENT SALES CONSULTANT 11/08/2024 8:09 PM RETIREMENT SALES CONSULTANT Chi Davidson MD LAB POCT ORDERABLES - DEVICE Fi nal Result Performing Organization Address [facility] de Phone Number [facility] [place] [address] * POCT glucose (11/08/2024 5:46 PM RETIREMENT SALES CONSULTANT) Glucose, POC 97 70 - 199 mg/dL Blood 11/08/2024 5:46 PM RETIREMENT SALES CONSULTANT 11/08/2024 5:46 PM RETIREMENT SALES CONSULTANT Chi Davidson MD LAB POCT ORDERABLES - DEVICE Fi nal Result Performing Organization Address [facility] de Phone Number [facility] [place] [address] * POCT glucose (11/08/2024 12:18 PM RETIREMENT SALES CONSULTANT) Glucose, POC 108 70 - 199 mg/dL Blood 11/08/2024 12:1 8 PM RETIREMENT SALES CONSULTANT 11/08/2024 12:18 PM RETIREMENT SALES CONSULTANT Chi Davidson MD LAB POCT ORDERABLES - DEVICE Fi nal Result Performing Organization Address [facility] [place] [address] * ECG 12 lead (11/08/2024 10:21 AM RETIREMENT SALES CONSULTANT) Ventricular Rate EKG/Min 51 BPM [facility] Atrial Rate 51 BPM [facility] RI-Interval (MSEC) 204 ms [facility] QRS-Interval (MSEC) 78 ms [facility] QT-Interval (MSEC) 498 ms [facility] QTc 458 ms [facility] P Arg[place] 70 degrees [facility] R Arg[place] -42 degrees [facility] T Argyle 7 degrees [facility] Diagnosis Sinus bradycardia Left axis deviation Moderate voltage criteria for LVH, may be normal variant ( R in aVL , Henderson product ) Abnormal ECG When compared with ECG of 28-MAR-2018 15:14, T wave inversion more evident in Inferior leads Confirmed by INOCENCIO CRUZ M.D ([id number]) on 11/08/2024 12:13:52 PM [facility] 11/08/2024 10:2 1 AM RETIREMENT SALES CONSULTANT 11/08/2024 12:13 PM RETIREMENT SALES CONSULTANT [employer] FI[employer] FOREMAN ECG ORDERABLES Final Resu lt [facility] * POCT glucose (11/08/2024 7:33 AM RETIREMENT SALES CONSULTANT) Glucose, POC 133 70 - 199 mg/dL Blood 11/08/2024 7:33 AM RETIREMENT SALES CONSULTANT 11/08/2024 7:33 AM RETIREMENT SALES CONSULTANT us Chi Davidson MD LAB POCT ORDERABLES - DEVICE Fi nal Result [facility] [place] [address] * XR Abdomen Ap 1 Vw (11/08/2024 5:32 AM RETIREMENT SALES CONSULTANT) Anatomical Region Laterality Modality Body, Abdomen N/A Computed Radiogr aphy 11/08/2024 9:12 AM RETIREMENT SALES CONSULTANT Impressions 11/08/2024 9:13 AM RETIREMENT SALES CONSULTANT 11/07/2024 at 12:00 PM: 24 hours after instillation of contrast demonstrates contrast within the colon. Otherwise normal gas pattern. Cholecystectomy clips. Vascular calcifications. 11/08/2024 at 5:24 AM: Normal bowel gas pattern. Continued passage of contrast. Dictated by: Dwight Daniels MD PHD The radiology attending physician has personally reviewed this study, and had reviewed and/or edited this written report and agrees with it. Electronically signed by: Julissa Joy M.D. Narrative 11/08/2024 9:13 AM RETIREMENT SALES CONSULTANT EXAMINATION: Abdomen, one view. HISTORY: Abdominal distension. COMPARISON: 11/07/2024 at 4:52 AM Procedure Note Julissa Joy MD - 11/08/2024 EXAMINATION: Abdomen, one view. HISTORY: Abdominal distension. COMPARISON: 11/07/2024 at 4:52 AM IMPRESSION: 11/07/2024 at 12:00 PM: 24 hours after instillation of contrast demonstrates contrast within the colon. Otherwise normal gas pattern. Cholecystectomy clips. Vascular calcifications. 11/08/2024 at 5:24 AM: Normal bowel gas pattern. Continued passage of contrast. Dictated by: Dwight Daniels MD PHD The radiology attending physician has personally reviewed this study, and had reviewed and/or edited this written report and agrees with it. Electronically signed by: Julissa Joy M.D. Analy [employer] FIELD FOREMAN IMG XR PROCEDURES Final Re sult * POCT glucose (11/08/2024 4:17 AM RETIREMENT SALES CONSULTANT) Glucose, POC 117 70 - 199 mg/dL Blood 11/08/2024 4:17 AM RETIREMENT SALES CONSULTANT 11/08/2024 4:17 AM RETIREMENT SALES CONSULTANT Chi Davidson MD LAB POCT ORDERABLES - DEVICE Fi nal Result Performing Organization Address [facility] Co de Phone Number [facility] [place] [address] * POCT glucose (11/07/2024 11:50 PM RETIREMENT SALES CONSULTANT) Glucose, POC 104 70 - 199 mg/dL Blood 11/07/2024 11:5 0 PM RETIREMENT SALES CONSULTANT 11/07/2024 11:50 PM RETIREMENT SALES CONSULTANT Chi Davidson MD LAB POCT ORDERABLES - DEVICE Fi nal Result Performing Organization Address City/[facility]/ZIP Co de Phone Number [facility] [place] [address] * POCT glucose (11/07/2024 8:33 PM RETIREMENT SALES CONSULTANT) Glucose, POC 156 70 - 199 mg/dL Blood 11/07/2024 8:33 PM RETIREMENT SALES CONSULTANT 11/07/2024 8:33 PM RETIREMENT SALES CONSULTANT Chi Davidson MD LAB POCT ORDERABLES - DEVICE Fi nal Result Performing Organization Address [facility] Co de Phone Number [facility] [place] [address] * eGFR (11/07/2024 7:46 PM RETIREMENT SALES CONSULTANT) Pathologist [facility] eGFR 62 >=60 mL/min/1. 73 m2 Comment: Interpretive Data [...] interpretive data was last reviewed 2021. Blood 11/07/2024 7:46 PM RETIREMENT SALES CONSULTANT 11/07/2024 8:45 PM RETIREMENT SALES CONSULTANT Chi Davidson MD LAB BLOOD ORDERABLES Final Resu lt Performing Organization Address [facility] Co de Phone Number [facility] Department [place] [address] * (ABNORMAL) CBC without differential (11/07/2024 7:46 PM RETIREMENT SALES CONSULTANT) [facility] WBC 10.1(H) 3.8 - 9.9 K/cumm Hgb 11.8(L) 11.9 - 15.5 g/dL [facility] Hct 34.6(L) 35.6 - 45.5 % [facility] Plt 257 150 - 400 K/cumm [facility] MPV 10.5 9.1 - 12.3 fL [facility] RBC 3.69(L) 3.90 - 5.20 M/cumm [facility] MCV 93.8 81.3 - 96.4 fL [facility] MCH 32.0 27.1 - 33.3 pg [facility] MCHC 34.1 32.3 - 35.7 g/dL [facility] RDW CV 13.3 11.1 - 14.9 % [facility] RDW SD 45.4 35.7 - 48.1 fL [facility] NRBC abs 0.00 0.00 - 0.01 K/cumm [facility] Blood 11/07/2024 7:46 PM RETIREMENT SALES CONSULTANT 11/07/2024 8:47 PM RETIREMENT SALES CONSULTANT Chi Davidson MD LAB BLOOD ORDERABLES Final Resu lt [facility] Department [place] [address] * (ABNORMAL) Phosphorus (11/07/2024 7:46 PM RETIREMENT SALES CONSULTANT) Pathologist [facility] Phosphorus, pl 2.2(L) 2.3 - 4.5 mg/dL Blood 11/07/2024 7:46 PM RETIREMENT SALES CONSULTANT 11/07/2024 8:45 PM RETIREMENT SALES CONSULTANT Chi Davidson MD LAB BLOOD ORDERABLES Final Resu lt [facility] Department [place] [address] * Magnesium (11/07/2024 7:46 PM RETIREMENT SALES CONSULTANT) Pathologist [facility] Magnesium 1.9 1.4 - 2.5 mg/dL Blood 11/07/2024 7:46 PM RETIREMENT SALES CONSULTANT 11/07/2024 8:45 PM RETIREMENT SALES CONSULTANT Chi Davidson MD LAB BLOOD ORDERABLES Final Resu lt [facility] [place] [address] * Basic metabolic panel (11/07/2024 7:46 PM RETIREMENT SALES CONSULTANT) Pathologist [facility] Sodium 138 135 - 145 mmol/L Potassium, pl 3.8 3.3 - 4.9 mmol/L [facility] Chloride 104 97 - 110 mmol/L [facility] CO2 26 22 - 32 mmol/L [facility] Anion gap 8 2 - 15 mmol/L [facility] BUN 15 6 - 25 mg/dL [facility] Creatinine 0.93 0.60 - 1.10 mg/dL [facility] Glucose 199 70 - 199 mg/dL [facility] Comment: Interpretive Data Fasting glucose [...] interpretive data was last revised 2022. Calcium 8.6 8.5 - 10.3 mg/dL [facility] Blood 11/07/2024 7:46 PM RETIREMENT SALES CONSULTANT 11/07/2024 8:45 PM RETIREMENT SALES CONSULTANT Chi Davidson MD LAB BLOOD ORDERABLES Final Resu lt Performing Organization Address City/[facility]/ZIP Co de Phone Number [facility] [place] [address] * POCT glucose (11/07/2024 4:20 PM RETIREMENT SALES CONSULTANT) Glucose, POC 138 70 - 199 mg/dL Blood 11/07/2024 4:20 PM RETIREMENT SALES CONSULTANT 11/07/2024 4:20 PM RETIREMENT SALES CONSULTANT Chi Davidson MD LAB POCT ORDERABLES - DEVICE Fi nal Result Performing Organization Address [facility] Co de Phone Number [facility] [place] [address] * Small Bowel Challenge 24 hour Post Injection XR Abdomen Ap 1 Vw (11/07/2024 12:00 PM RETIREMENT SALES CONSULTANT) Anatomical Region Laterality Modality Body, Abdomen N/A Computed Radiogr aphy 11/08/2024 9:12 AM RETIREMENT SALES CONSULTANT Impressions 11/08/2024 9:13 AM RETIREMENT SALES CONSULTANT 11/07/2024 at 12:00 PM: 24 hours after instillation of contrast demonstrates contrast within the colon. Otherwise normal gas pattern. Cholecystectomy clips. Vascular calcifications. 11/08/2024 at 5:24 AM: Normal bowel gas pattern. Continued passage of contrast. Dictated by: Dwight Daniels MD PHD The radiology attending physician has personally reviewed this study, and had reviewed and/or edited this written report and agrees with it. Electronically signed by: Julissa Joy M.D. Narrative 11/08/2024 9:13 AM RETIREMENT SALES CONSULTANT EXAMINATION: Abdomen, one view. HISTORY: Abdominal distension. COMPARISON: 11/07/2024 at 4:52 AM Procedure Note Julissa Joy MD - 11/08/2024 EXAMINATION: Abdomen, one view. HISTORY: Abdominal distension. COMPARISON: 11/07/2024 at 4:52 AM IMPRESSION: 11/07/2024 at 12:00 PM: 24 hours after instillation of contrast demonstrates contrast within the colon. Otherwise normal gas pattern. Cholecystectomy clips. Vascular calcifications. 11/08/2024 at 5:24 AM: Normal bowel gas pattern. Continued passage of contrast. Dictated by: Dwight Daniels MD PHD The radiology attending physician has personally reviewed this study, and had reviewed and/or edited this written report and agrees with it. Electronically signed by: Julissa Joy M.D. us [employer] FIELD FOREMAN IMG XR PROCEDURES Final Re sult * POCT glucose (11/07/2024 11:46 AM RETIREMENT SALES CONSULTANT) Glucose, POC 154 70 - 199 mg/dL Blood 11/07/2024 11:4 6 AM RETIREMENT SALES CONSULTANT 11/07/2024 11:46 AM RETIREMENT SALES CONSULTANT Chi Davidson MD LAB POCT ORDERABLES - DEVICE Fi nal Result [facility] Department [place] [address] * (ABNORMAL) Urinalysis reflex to microscopic and culture Urine, in and out catheter (11/07/2024 9:43AM RETIREMENT SALES CONSULTANT) Color, ur Yellow Yellow Clarity, ur Clear Clear [facility] Specific gravity, ur 1.020 1.003 - 1.030 [facility] pH, urine 6.0 [facility] Comment: Interpretive Data U rine pH is affected by diet, medications, systemic acid-base disturbances, and renal tubular function. pH may affect urinary stone formation. For example, urine pH below 6.0 may help reduce the tendency for calcium phosphate stones and pH greater than 6.0 may reduce the tendency for uric acid stone formation. Source: [place] [employer] Current Interpretive Data was last revised on 2017 Protein, ur ql Trace Negative [facility] Glucose, ur ql Negative Negative [facility] Ketones, ur 1+(A) Negative [facility] Bilirubin, ur Negative Negative [facility] Blood, ur Negative Negative [facility] Urobilinogen, ur <2.0 <2.0 mg/dL [facility] Nitrite, ur Negative Negative [facility] Leukocyte esterase, ur Negative Negative [facility] UA reflex comment Reflex conditions for microscopic UA and culture not met. [facility] Urine, in and out catheter 11/07/2024 9:43 AM RETIREMENT SALES CONSULTANT 11/07/2024 10:21 AM RETIREMENT SALES CONSULTANT Chi Davidson MD LAB MICROBIOLOGY - GENERAL ORDE RABLES Final Result [facility] Department [place] [address] * POCT glucose (11/07/2024 8:03 AM RETIREMENT SALES CONSULTANT) [facility] Glucose, POC 107 70 - 199 mg/dL Blood 11/07/2024 8:03 AM RETIREMENT SALES CONSULTANT 11/07/2024 8:03 AM RETIREMENT SALES CONSULTANT Chi Davidson MD LAB POCT ORDERABLES - DEVICE Fi nal Result Performing Organization Address [facility] Co de Phone Number [facility] Department [place] [address] * XR Abdomen Ap 1 Vw (11/07/2024 5:24 AM RETIREMENT SALES CONSULTANT) Anatomical Region Laterality Modality Body, Abdomen N/A Computed Radiogr aphy 11/07/2024 8:24 AM RETIREMENT SALES CONSULTANT Impressions 11/07/2024 8:24 AM RETIREMENT SALES CONSULTANT Radiograph 11/06/2024 at 4:03 PM: Gastric tube remains in place likely looping within the stomach within a moderate-sized hiatal hernia when compared to CT. Cholecystectomy clips in the right upper quadrant. Contrast is now seen throughout small and large bowel to the level of the rectum. No bowel obstruction. Radiograph 11/06/2024 at 9:24 PM: Continued passage of contrast throughout the bowel, overall decreased contrast remaining compared to prior compatible with passage of contrast. No bowel obstruction. Radiograph 11/07/2024 at 4:52 AM: Only a small amount of contrast remains within the small bowel, largely within the low mid abdomen. Similar appearance of contrast throughout the large bowel. No dilated loops of bowel. No bowel obstruction. Electronically signed by: Boyd Sanders M.D. Narrative 11/07/2024 8:24 AM RETIREMENT SALES CONSULTANT EXAMINATION: XR ABDOMEN AP 1 VIEW x3 HISTORY: Small bowel obstruction, contrast challenge Procedure Note Boyd Sanders MD - 11/07/2024 EXAMINATION: XR ABDOMEN AP 1 VIEW x3 HISTORY: Small bowel obstruction, contrast challenge IMPRESSION: Radiograph 11/06/2024 at 4:03 PM: Gastric tube remains in place likely looping within the stomach within a moderate-sized hiatal hernia when compared to CT. Cholecystectomy clips in the right upper quadrant. Contrast is now seen throughout small and large bowel to the level of the rectum. No bowel obstruction. Radiograph 11/06/2024 at 9:24 PM: Continued passage of contrast throughout the bowel, overall decreased contrast remaining compared to prior compatible with passage of contrast. No bowel obstruction. Radiograph 11/07/2024 at 4:52 AM: Only a small amount of contrast remains within the small bowel, largely within the low mid abdomen. Similar appearance of contrast throughout the large bowel. No dilated loops of bowel. No bowel obstruction. Electronically signed by: Boyd Sanders M.D. Analy [employer] FI[employer]EMAN IMG XR PROCEDURES Final Re sult * POCT glucose (11/07/2024 5:11 AM RETIREMENT SALES CONSULTANT) [facility] Glucose, POC 117 70 - 199 mg/dL Blood 11/07/2024 5:11 AM RETIREMENT SALES CONSULTANT 11/07/2024 5:11 AM RETIREMENT SALES CONSULTANT Chi Davidson MD LAB POCT ORDERABLES - DEVICE Fi nal Result [facility] Department [place] [address] * POCT glucose (11/07/2024 12:17 AM RETIREMENT SALES CONSULTANT) Glucose, POC 104 70 - 199 mg/dL Blood 11/07/2024 12:1 7 AM RETIREMENT SALES CONSULTANT 11/07/2024 12:17 AM RETIREMENT SALES CONSULTANT Chi Chirag Davidson MD LAB POCT ORDERABLES - DEVICE Fi nal Result Performing Organization Address City/State/ZIP Co oh Phone Number [facility] Department [place] [address] * Small Bowel Challenge 10 hour Post Injection XR Abdomen Ap 1 Vw (11/06/2024 9:52 PM RETIREMENT SALES CONSULTANT) Anatomical Region Laterality Modality Body, Abdomen N/A Computed Radiogr aphy 11/07/2024 8:24 AM RETIREMENT SALES CONSULTANT Impressions 11/07/2024 8:24 AM RETIREMENT SALES CONSULTANT Radiograph 11/06/2024 at 4:03 PM: Gastric tube remains in place likely looping within the stomach within a moderate-sized hiatal hernia when compared to CT. Cholecystectomy clips in the right upper quadrant. Contrast is now seen throughout small and large bowel to the level of the rectum. No bowel obstruction. Radiograph 11/06/2024 at 9:24 PM: Continued passage of contrast throughout the bowel, overall decreased contrast remaining compared to prior compatible with passage of contrast. No bowel obstruction. Radiograph 11/07/2024 at 4:52 AM: Only a small amount of contrast remains within the small bowel, largely within the low mid abdomen. Similar appearance of contrast throughout the large bowel. No dilated loops of bowel. No bowel obstruction. Electronically signed by: Boyd Sanders M.D. Narrative 11/07/2024 8:24 AM RETIREMENT SALES CONSULTANT EXAMINATION: XR ABDOMEN AP 1 VIEW x3 HISTORY: Small bowel obstruction, contrast challenge Procedure Note Boyd Sanders MD - 11/07/2024 EXAMINATION: XR ABDOMEN AP 1 VIEW x3 HISTORY: Small bowel obstruction, contrast challenge IMPRESSION: Radiograph 11/06/2024 at 4:03 PM: Gastric tube remains in place likely looping within the stomach within a moderate-sized hiatal hernia when compared to CT. Cholecystectomy clips in the right upper quadrant. Contrast is now seen throughout small and large bowel to the level of the rectum. No bowel obstruction. Radiograph 11/06/2024 at 9:24 PM: Continued passage of contrast throughout the bowel, overall decreased contrast remaining compared to prior compatible with passage of contrast. No bowel obstruction. Radiograph 11/07/2024 at 4:52 AM: Only a small amount of contrast remains within the small bowel, largely within the low mid abdomen. Similar appearance of contrast throughout the large bowel. No dilated loops of bowel. No bowel obstruction. Electronically signed by: Boyd Sanders M.D. us [employer]EM[employer] IMG XR PROCEDURES Final Re sult * (ABNORMAL) eGFR (11/06/2024 9:34 PM RETIREMENT SALES CONSULTANT) eGFR 49(L) >=60 mL/min/1. 73 m2 Comment: Interpretive Data [...] interpretive data was last reviewed 2021. Blood 11/06/2024 9:34 PM RETIREMENT SALES CONSULTANT 11/06/2024 10:08 PM RETIREMENT SALES CONSULTANT us Chi Davidson MD LAB BLOOD ORDERABLES Final Resu lt [facility] Department [place] [address] * (ABNORMAL) CBC without differential (11/06/2024 9:34 PM RETIREMENT SALES CONSULTANT) [facility] WBC 10.6(H) 3.8 - 9.9 K/cumm Hgb 12.2 11.9 - 15.5 g/dL [facility] Hct 36.0 35.6 - 45.5 % [facility] Plt 265 150 - 400 K/cumm [facility] MPV 10.1 9.1 - 12.3 fL [facility] RBC 3.93 3.90 - 5.20 M/cumm [facility] MCV 91.6 81.3 - 96.4 fL [facility] MCH 31.0 27.1 - 33.3 pg [facility] MCHC 33.9 32.3 - 35.7 g/dL [facility] RDW CV 13.1 11.1 - 14.9 % [facility] RDW SD 43.4 35.7 - 48.1 fL [facility] NRBC abs 0.00 0.00 - 0.01 K/cumm [facility] Blood 11/06/2024 9:34 PM RETIREMENT SALES CONSULTANT 11/06/2024 10:09 PM RETIREMENT SALES CONSULTANT us Chi Davidson MD LAB BLOOD ORDERABLES Final Resu lt [facility] [place] [address] * (ABNORMAL) Prealbumin (11/06/2024 9:34 PM RETIREMENT SALES CONSULTANT) [facility] Prealbumin 17.0(L) 20.0 - 40.0 mg/dL Blood 11/06/2024 9:34 PM RETIREMENT SALES CONSULTANT 11/06/2024 10:08 PM RETIREMENT SALES CONSULTANT us [employer] NP LAB BLOOD ORDERABLES Final Result Performing Organization Address City/[facility]/ZIP Co de Phone Number [facility] [place] [address] * Phosphorus (11/06/2024 9:34 PM RETIREMENT SALES CONSULTANT) Phosphorus, pl 3.5 2.3 - 4.5 mg/dL Blood 11/06/2024 9:3 4 PM RETIREMENT SALES CONSULTANT 11/06/2024 10:08 PM RETIREMENT SALES CONSULTANT Chi Davidson MD LAB BLOOD ORDERABLES Final Resu lt Performing Organization Address [facility] Co de Phone Number [facility] [place] [address] * Magnesium (11/06/2024 9:34 PM RETIREMENT SALES CONSULTANT) [facility] Magnesium 2.1 1.4 - 2.5 mg/dL Blood 11/06/2024 9:34 PM RETIREMENT SALES CONSULTANT 11/06/2024 10:08 PM RETIREMENT SALES CONSULTANT Chi Davidson MD LAB BLOOD ORDERABLES Final Resu lt Performing Organization Address [facility] de Phone Number [facility] [place] [address] * Hemoglobin A1c (11/06/2024 9:34 PM RETIREMENT SALES CONSULTANT) [facility] Hgb A1C 5.5 4.0 - 5.6 % Estimated Average Glucose 111 mg/dL [facility] Comment: The ADA recommends reporting an estimated Average Glucose (eAG) with all Hemoglobin A1c results using the equation derived from a study of 507 normal and diabetic adults. Minority populations were underrepresented and children were not included. (Diabetes Care 2020; 43(S1): S66-S76). The eAG is not equivalent to a fasting glucose. Blood 11/06/2024 9:34 PM RETIREMENT SALES CONSULTANT 11/06/2024 10:09 PM RETIREMENT SALES CONSULTANT [employer] NP LAB BLOOD ORDERABLES Final Result Performing Organization Address [facility] de Phone Number [facility] [place] [address] * Albumin (11/06/2024 9:34 PM RETIREMENT SALES CONSULTANT) Albumin 3.7 3.5 - 5.0 g/dL Blood 11/06/2024 9:34 PM RETIREMENT SALES CONSULTANT 11/06/2024 10:08 PM RETIREMENT SALES CONSULTANT us [employer] NP LAB BLOOD ORDERABLES Final Result [facility] Department [place] [address] * (ABNORMAL) Basic metabolic panel (11/06/2024 9:34 PM RETIREMENT SALES CONSULTANT) Pathologist [facility] Sodium 138 135 - 145 mmol/L Potassium, pl 3.7 3.3 - 4.9 mmol/L [facility] Chloride 99 97 - 110 mmol/L [facility] CO2 28 22 - 32 mmol/L [facility] Anion gap 11 2 - 15 mmol/L [facility] BUN 17 6 - 25 mg/dL [facility] Creatinine 1.13(H) 0.60 - 1.10 mg/dL [facility] Glucose 121 70 - 199 mg/dL [facility] Comment: Interpretive Data Fasting glucose [...] classification and Diagnosis of Diabetes Diabetes Care 202; 46: S19-S40. Current interpretive data was last revised 2022. Calcium 8.8 8.5 - 10.3 mg/dL [facility] Blood 11/06/2024 9:34 PM RETIREMENT SALES CONSULTANT 11/06/2024 10:08 PM RETIREMENT SALES CONSULTANT us Chi Davidson MD LAB BLOOD ORDERABLES Final Resu lt [facility] Department [place] [address] * POCT glucose (11/06/2024 8:08 PM RETIREMENT SALES CONSULTANT) Glucose, POC 141 70 - 199 mg/dL Blood 11/06/2024 8:08 PM RETIREMENT SALES CONSULTANT 11/06/2024 8:08 PM RETIREMENT SALES CONSULTANT us Chi Davidson MD LAB POCT ORDERABLES - DEVICE Fi nal Result Performing Organization Address [facility] Co de Phone Number [facility] Department [place] [address] * Small Bowel Challenge 4 hour Post Injection XR Abdomen Ap 1 Vw (11/06/2024 4:15 PM RETIREMENT SALES CONSULTANT) Anatomical Region Laterality Modality Body, Abdomen N/A Computed Radiogr aphy 11/07/2024 8:24 AM RETIREMENT SALES CONSULTANT Impressions 11/07/2024 8:24 AM RETIREMENT SALES CONSULTANT Radiograph 11/06/2024 at 4:03 PM: Gastric tube remains in place likely looping within the stomach within a moderate-sized hiatal hernia when compared to CT. Cholecystectomy clips in the right upper quadrant. Contrast is now seen throughout small and large bowel to the level of the rectum. No bowel obstruction. Radiograph 11/06/2024 at 9:24 PM: Continued passage of contrast throughout the bowel, overall decreased contrast remaining compared to prior compatible with passage of contrast. No bowel obstruction. Radiograph 11/07/2024 at 4:52 AM: Only a small amount of contrast remains within the small bowel, largely within the low mid abdomen. Similar appearance of contrast throughout the large bowel. No dilated loops of bowel. No bowel obstruction. Electronically signed by: Boyd Sanders M.D. Narrative 11/07/2024 8:24 AM RETIREMENT SALES CONSULTANT EXAMINATION: XR ABDOMEN AP 1 VIEW x3 HISTORY: Small bowel obstruction, contrast challenge Procedure Note Boyd Sanders MD - 11/07/2024 EXAMINATION: XR ABDOMEN AP 1 VIEW x3 HISTORY: Small bowel obstruction, contrast challenge IMPRESSION: Radiograph 11/06/2024 at 4:03 PM: Gastric tube remains in place likely looping within the stomach within a moderate-sized hiatal hernia when compared to CT. Cholecystectomy clips in the right upper quadrant. Contrast is now seen throughout small and large bowel to the level of the rectum. No bowel obstruction. Radiograph 11/06/2024 at 9:24 PM: Continued passage of contrast throughout the bowel, overall decreased contrast remaining compared to prior compatible with passage of contrast. No bowel obstruction. Radiograph 11/07/2024 at 4:52 AM: Only a small amount of contrast remains within the small bowel, largely within the low mid abdomen. Similar appearance of contrast throughout the large bowel. No dilated loops of bowel. No bowel obstruction. Electronically signed by: Boyd Sanders M.D. [employer] FIELD FOREMAN IMG XR PROCEDURES Final Re sult * POCT glucose (11/06/2024 4:00 PM RETIREMENT SALES CONSULTANT) Glucose, POC 136 70 - 199 mg/dL Blood 11/06/2024 4:00 PM RETIREMENT SALES CONSULTANT 11/06/2024 4:00 PM RETIREMENT SALES CONSULTANT Chi Davidson MD LAB POCT ORDERABLES - DEVICE Fi nal Result Performing Organization Address [facility] Co de Phone Number [facility] Department [place] [address] * POCT glucose (11/06/2024 12:00 PM RETIREMENT SALES CONSULTANT) Glucose, POC 162 70 - 199 mg/dL Blood 11/06/2024 12:0 0 PM RETIREMENT SALES CONSULTANT 11/06/2024 12:00 PM RETIREMENT SALES CONSULTANT Chi Davidson MD LAB POCT ORDERABLES - DEVICE Fi nal Result Performing Organization Address [facility]/ZIP Co de Phone Number [facility] Department [place] [address] * XR Abdomen Ap 1 Vw (11/06/2024 6:54 AM RETIREMENT SALES CONSULTANT) Anatomical Region Laterality Modality Body, Abdomen N/A Digital Radiogra phy 11/06/2024 1:01 PM RETIREMENT SALES CONSULTANT Impressions 11/06/2024 1:40 PM RETIREMENT SALES CONSULTANT Gastric tube in place in unchanged position likely in the intrathoracic stomach within the hiatal hernia. Mary cystectomy clips. High density fluid in the urinary bladder bladder. Moderate amount of stool and gas throughout the colon and rectum. Dictated by: Katty Addison M.D. The radiology attending physician has personally reviewed this study, and had reviewed and/or edited this written report and agrees with it. Electronically signed by: Delbert Tello M.D. Narrative 11/06/2024 1:40 PM RETIREMENT SALES CONSULTANT EXAMINATION: Abdomen, one view. HISTORY: Abdominal dilation. COMPARISON: Radiograph of 11/05/2024 at 11:[address] 11/05/2024. Procedure Note Delbert Tello MD - 11/06/2024 EXAMINATION: Abdomen, one view. HISTORY: Abdominal dilation. COMPARISON: Radiograph of 11/05/2024 at 11:[address] 11/05/2024. IMPRESSION: Gastric tube in place in unchanged position likely in the intrathoracic stomach within the hiatal hernia. Mary cystectomy clips. High density fluid in the urinary bladder bladder. Moderate amount of stool and gas throughout the colon and rectum. Dictated by: Katty Addison M.D. The radiology attending physician has personally reviewed this study, and had reviewed and/or edited this written report and agrees with it. Electronically signed by: Delbert Tello M.D. us [employer] FI[employer] FOREMAN IMG XR PROCEDURES Final Re sult * Lactate (11/05/2024 10:27 PM RETIREMENT SALES CONSULTANT) Lactate 0.8 0.7 - 2.0 mmol/L Blood 11/05/2024 10:2 7 PM RETIREMENT SALES CONSULTANT 11/05/2024 10:44 PM RETIREMENT SALES CONSULTANT Chi Davidson MD LAB BLOOD ORDERABLES Final Resu lt Performing Organization Address City/[facility]/ZIP Co de Phone Number [facility] [place] [address] * eGFR (11/05/2024 10:27 PM RETIREMENT SALES CONSULTANT) eGFR 62 >=60 mL/min/1. 73 m2 Comment: Interpretive Data [...] interpretive data was last reviewed 2021. Blood 11/05/2024 10:2 7 PM RETIREMENT SALES CONSULTANT 11/05/2024 10:45 PM RETIREMENT SALES CONSULTANT Chi Davidson MD LAB BLOOD ORDERABLES Final Resu lt Performing Organization Address City/[facility]/ZIP Co de Phone Number [facility] Department [place] [address] * (ABNORMAL) CBC without differential (11/05/2024 10:27 PM RETIREMENT SALES CONSULTANT) WBC 11.7(H) 3.8 - 9.9 K/cumm Hgb 12.6 11.9 - 15.5 g/dL [facility] Hct 35.8 35.6 - 45.5 % [facility] Plt 250 150 - 400 K/cumm [facility] MPV 10.3 9.1 - 12.3 fL [facility] RBC 3.98 3.90 - 5.20 M/cumm [facility] MCV 89.9 81.3 - 96.4 fL [facility] MCH 31.7 27.1 - 33.3 pg [facility] MCHC 35.2 32.3 - 35.7 g/dL [facility] RDW CV 12.9 11.1 - 14.9 % [facility] RDW SD 42.5 35.7 - 48.1 fL [facility] NRBC abs 0.00 0.00 - 0.01 K/cumm [facility] Blood 11/05/2024 10:2 7 PM RETIREMENT SALES CONSULTANT 11/05/2024 10:45 PM RETIREMENT SALES CONSULTANT Chi Davidson MD LAB BLOOD ORDERABLES Final Resu lt [facility] Department [place] [address] * Phosphorus (11/05/2024 10:27 PM RETIREMENT SALES CONSULTANT) Phosphorus, pl 4.1 2.3 - 4.5 mg/dL Blood 11/05/2024 10:2 7 PM RETIREMENT SALES CONSULTANT 11/05/2024 10:45 PM RETIREMENT SALES CONSULTANT Chi Davidson MD LAB BLOOD ORDERABLES Final Resu lt [facility] [place] [address] * Magnesium (11/05/2024 10:27 PM RETIREMENT SALES CONSULTANT) Magnesium 1.6 1.4 - 2.5 mg/dL Blood 11/05/2024 10:2 7 PM RETIREMENT SALES CONSULTANT 11/05/2024 10:45 PM RETIREMENT SALES CONSULTANT Chi Davidson MD LAB BLOOD ORDERABLES Final Resu lt [facility] Department [place] [address] * (ABNORMAL) Basic metabolic panel (11/05/2024 10:27 PM RETIREMENT SALES CONSULTANT) Sodium 134(L) 135 - 145 mmol/L Potassium, pl 3.9 3.3 - 4.9 mmol/L [facility] Chloride 94(L) 97 - 110 mmol/L [facility] CO2 28 22 - 32 mmol/L [facility] Anion gap 12 2 - 15 mmol/L [facility] BUN 14 6 - 25 mg/dL [facility] Creatinine 0.93 0.60 - 1.10 mg/dL [facility] Glucose 111 70 - 199 mg/dL [facility] Comment: Interpretive Data Fasting glucose [...] classification and Diagnosis of Diabetes Diabetes Care 202; 46: S19-S40. Current interpretive data was last revised 2022. Calcium 8.7 8.5 - 10.3 mg/dL [facility] Blood 11/05/2024 10:2 7 PM RETIREMENT SALES CONSULTANT 11/05/2024 10:45 PM RETIREMENT SALES CONSULTANT Chi Davidson MD LAB BLOOD ORDERABLES Final Resu lt Performing Organization Address [facility]/ZIP Co de Phone Number [facility] Department [place] [address] * aPTT (11/05/2024 11:51 AM RETIREMENT SALES CONSULTANT) aPTT 33 28 - 38 sec Comment: Interpretive Data Heparin therapeutic range: 66.0 - 100.0 seconds. Range based on correlation with therapeutic heparin activity range of 0.3 - 0.7 Units/mL. Current interpretive data was last revised on 2023. Blood 11/05/2024 11:5 1 AM RETIREMENT SALES CONSULTANT 11/05/2024 11:59 AM RETIREMENT SALES CONSULTANT Galindo Mazariegos MD LAB BLOOD ORDERABLES F inal Result Performing Organization Address [facility] de Phone Number [facility] [place] [address] * Protime-INR (11/05/2024 11:51 AM RETIREMENT SALES CONSULTANT) PT 13.0 9.7 - 13.0 sec INR 1.20 0.90 - 1.20 [facility] Comment: Interpretive data Oral anticoagulant therapeutic ranges: Venous thromboembolism prophylaxis or treatment: 2.0-3.0 CARDIOLOGY Standard range: 2.0-3.0 High-intensity range: 2.5-3.5 Refer to indication-specific guidelines for appropriate target ranges for prosthetic heart valve replacement. Current interpretive data was last revised on 2019. Blood 11/05/2024 11:5 1 AM RETIREMENT SALES CONSULTANT 11/05/2024 11:59 AM RETIREMENT SALES CONSULTANT Galindo Mazariegos MD LAB BLOOD ORDERABLES F inal Result Performing Organization Address [facility] de Phone Number [facility] [place] [address] * Type and screen (11/05/2024 11:51 AM RETIREMENT SALES CONSULTANT) Caitie, indirect Negative ABO Rh O Positive [facility] Blood 11/05/2024 11:5 1 AM RETIREMENT SALES CONSULTANT 11/05/2024 12:05 PM RETIREMENT SALES CONSULTANT Narrative [facility] - 11/05/2024 12:55 PM RETIREMENT SALES CONSULTANT Has the patient had Daratumumab or Isatuximab in the past 6 months?->Unknown Galindo Mazariegos MD LAB BLOOD BANK TEST OR DERABLES Final Result [facility] Department [place] [address] * XR Abdomen Ap 1 Vw (11/05/2024 11:26 AM RETIREMENT SALES CONSULTANT) Anatomical Region Laterality Modality Body, Abdomen N/A Computed Radiogr aphy 11/05/2024 12:0 4 PM RETIREMENT SALES CONSULTANT Impressions 11/05/2024 12:04 PM RETIREMENT SALES CONSULTANT Small bowel obstruction was better seen on prior CT. Gastric tube with side-port inferior to the diaphragm, likely within the stomach. Electronically signed by: Blair Barnett M.D. Narrative 11/05/2024 12:04 PM RETIREMENT SALES CONSULTANT EXAMINATION: Abdomen, one view. HISTORY: Gastric tube COMPARISON: Same-day CT Procedure Note Blair Barnett MD - 11/05/2024 EXAMINATION: Abdomen, one view. HISTORY: Gastric tube COMPARISON: Same-day CT IMPRESSION: Small bowel obstruction was better seen on prior CT. Gastric tube with side-port inferior to the diaphragm, likely within the stomach. Electronically signed by: Blair Barnett M.D. Galindo Mazariegos MD IMG XR PROCEDURES Kaylee l Result * XR Outside Reference (11/05/2024 11:15 AM RETIREMENT SALES CONSULTANT) Impressions [id number] - 11/05/2024 11:15 AM RETIREMENT SALES CONSULTANT These images are for Reference purposes only and have not been reviewed by [facility]. There will be no report generated by a [facility]iologist. Narrative [email or web address] - 11/05/2024 11:15 AM RETIREMENT SALES CONSULTANT EXAMINATION: Images For Reference Purposes Only Galindo Mazariegos MD IMG XR PROCEDURES Kaylee l Result [email or web address] * CT Body Outside Consult (11/05/2024 11:11 AM RETIREMENT SALES CONSULTANT) Anatomical Region Laterality Modality Body N/A Computed Tomogra phy 11/05/2024 12:0 6 PM RETIREMENT SALES CONSULTANT Impressions 11/05/2024 12:31 PM RETIREMENT SALES CONSULTANT 1. Findings of high-grade small bowel obstruction with transition point at the terminal ileum with findings suggestive internal hernia. No pneumatosis or portal venous gas. 2. Mesenteric edema in the left hemiabdomen with narrowing of a branch of the superior mesenteric vein with perivenous low attenuation likely to represent edema and less likely non-occlusive thrombus. The findings, conclusions and recommendations within this report do not replace the initial findings, conclusions and recommendations made at the facility where the study was performed based upon the imaging and clinical condition at that time. Comparison with the prior report and clinical history is necessary. The provided images may or may not represent the yurok source data set and thus may contain changes that may lower the accuracy of this second-opinion interpretation. Dictated by: Mike Pineda M.D. The radiology attending physician has personally reviewed this study, and had reviewed and/or edited this written report and agrees with it. Electronically signed by: Blair Barnett M.D. Narrative 11/05/2024 12:31 PM RETIREMENT SALES CONSULTANT EXAMINATION: RADIOLOGY CONSULTATION ON OUTSIDE IMAGING STUDY STUDY INITIALLY PERFORMED: 11/05/2024 at [facility]. TYPE OF STUDY: Multiple CT images of the chest, abdomen, and pelvis with intravenous contrast are provided at the time of this interpretation. CONTRAST ROUTE: Contrast was administered via the intravenous route. The protocol was adequate to address the clinical question. The outside final report was not available at the time of this second opinion interpretation. TYPE OF CONSULTATION: Consult on outside imaging study with images submitted through [employer] DATE OF CONSULTATION: 11/05/2024 11:19 AM HISTORY: 79-year-old with concern for small bowel obstruction. COMPARISON: CTA of the heart and coronary arteries dated 06/29/2024. FINDINGS: No pulmonary consolidation, pleural effusion, or pneumothorax. No axillary, supraclavicular, mediastinal, or hilar lymphadenopathy. Thoracic aorta is normal in course and caliber with moderate atherosclerosis. Heart size is normal. Coronary artery calcifications are present. No pericardial effusion. Small hiatal hernia. There are multiple hepatic cysts in the right hemiliver. No intrahepatic biliary duct dilatation there is mild to extrahepatic biliary duct dilatation likely secondary to reservoir effect. Gallbladder surgically absent. Adrenal glands are normal. There is a small splenic cyst. Pancreas is normal. The kidneys enhance symmetrically without evidence of hydronephrosis. Bladder is normal. Uterus is present. No suspicious adnexal mass. Mildly dilated loop of small bowel within the mid abdomen with small bowel feces and abrupt transition point at the terminal ileum consistent with high-grade small bowel obstruction. Mild mesenteric edema in the left hemiabdomen which can be seen in ischemia. There are also findings suggestive of internal hernia. In the region of this mesenteric edema, there is hypoattenuation around the superior mesenteric vein which likely represents edema and less likely thrombus. No ascites or pneumoperitoneum. Abdominal aorta is normal in course and caliber. Severe atherosclerosis of the abdominal aorta. No abdominal or pelvic lymphadenopathy. Procedure Note Short, Blair Diallo MD - 11/05/2024 EXAMINATION: RADIOLOGY CONSULTATION ON OUTSIDE IMAGING STUDY STUDY INITIALLY PERFORMED: 11/05/2024 at [facility]. TYPE OF STUDY: Multiple CT images of the chest, abdomen, and pelvis with intravenous contrast are provided at the time of this interpretation. CONTRAST ROUTE: Contrast was administered via the intravenous route. The protocol was adequate to address the clinical question. The outside final report was not available at the time of this second opinion interpretation. TYPE OF CONSULTATION: Consult on outside imaging study with images submitted through Outside Image Sharing [employer] DATE OF CONSULTATION: 11/05/2024 11:19 AM HISTORY: 79-year-old with concern for small bowel obstruction. COMPARISON: CTA of the heart and coronary arteries dated 06/29/2024. FINDINGS: No pulmonary consolidation, pleural effusion, or pneumothorax. No axillary, supraclavicular, mediastinal, or hilar lymphadenopathy. Thoracic aorta is normal in course and caliber with moderate atherosclerosis. Heart size is normal. Coronary artery calcifications are present. No pericardial effusion. Small hiatal hernia. There are multiple hepatic cysts in the right hemiliver. No intrahepatic biliary duct dilatation there is mild to extrahepatic biliary duct dilatation likely secondary to reservoir effect. Gallbladder surgically absent. Adrenal glands are normal. There is a small splenic cyst. Pancreas is normal. The kidneys enhance symmetrically without evidence of hydronephrosis. Bladder is normal. Uterus is present. No suspicious adnexal mass. Mildly dilated loop of small bowel within the mid abdomen with small bowel feces and abrupt transition point at the terminal ileum consistent with high-grade small bowel obstruction. Mild mesenteric edema in the left hemiabdomen which can be seen in ischemia. There are also findings suggestive of internal hernia. In the region of this mesenteric edema, there is hypoattenuation around the superior mesenteric vein which likely represents edema and less likely thrombus. No ascites or pneumoperitoneum. Abdominal aorta is normal in course and caliber. Severe atherosclerosis of the abdominal aorta. No abdominal or pelvic lymphadenopathy. IMPRESSION: 1. Findings of high-grade small bowel obstruction with transition point at the terminal ileum with findings suggestive internal hernia. No pneumatosis or portal venous gas. 2. Mesenteric edema in the left hemiabdomen with narrowing of a branch of the superior mesenteric vein with perivenous low attenuation likely to represent edema and less likely non-occlusive thrombus. The findings, conclusions and recommendations within this report do not replace the initial findings, conclusions and recommendations made at the facility where the study was performed based upon the imaging and clinical condition at that time. Comparison with the prior report and clinical history is necessary. The provided images may or may not represent the yurok source data set and thus may contain changes that may lower the accuracy of this second-opinion interpretation. Dictated by: Mike Pineda M.D. The radiology attending physician has personally reviewed this study, and had reviewed and/or edited this written report and agrees with it. Electronically signed by: Blair Barnett M.D. Galindo Mazariegos MD IMG CT PROCEDURES Kaylee l Result * Lactate (11/05/2024 10:53 AM RETIREMENT SALES CONSULTANT) Lactate 1.2 0.7 - 2.0 mmol/L Blood 11/05/2024 10:5 3 AM RETIREMENT SALES CONSULTANT 11/05/2024 11:23 AM RETIREMENT SALES CONSULTANT Galindo Mazariegos MD LAB BLOOD ORDERABLES F inal Result [facility] Department [place] [address] * eGFR (11/05/2024 10:53 AM RETIREMENT SALES CONSULTANT) eGFR 88 >=60 mL/min/1. 73 m2 Comment: Interpretive Data [...] interpretive data was last reviewed 2021. Blood 11/05/2024 10:5 3 AM RETIREMENT SALES CONSULTANT 11/05/2024 11:22 AM RETIREMENT SALES CONSULTANT us Galindo Mazariegos MD LAB BLOOD ORDERABLES F inal Result [facility] Department [place] [address] * (ABNORMAL) Differential, auto (11/05/2024 10:53 AM RETIREMENT SALES CONSULTANT) Pathologist [facility] Neutrophil abs 8.2(H) 1.5 - 6.5 K/cumm Imm gran abs 0.0 0.0 - 0.1 K/cumm [facility] Lymphocyte abs 2.5 0.8 - 3.3 K/cumm [facility] Monocyte abs 0.7 0.2 - 0.8 K/cumm [facility] Eosinophil abs 0.0 0.0 - 0.5 K/cumm [facility] Basophil abs 0.0 0.0 - 0.1 K/cumm [facility] Neutrophil pct 71.1 % [facility] Comment: Interpretive Data Percent cell count reference ranges are not reported, since discordance with absolute values may lead to misinterpretation of CBC data. Current Interpretive Data was last revised on 2017. Imm gran pct 0.3 % [facility] Comment: Interpretive Data Percent cell count reference ranges are not reported, since discordance with absolute values may lead to misinterpretation of CBC data. Current Interpretive Data was last revised on 2017. Lymphocyte pct 21.9 % [facility] Comment: Interpretive Data Percent cell count reference ranges are not reported, since discordance with absolute values may lead to misinterpretation of CBC data. Current Interpretive Data was last revised on 2017. Monocyte pct 6.1 % [facility] Comment: Interpretive Data Percent cell count reference ranges are not reported, since discordance with absolute values may lead to misinterpretation of CBC data. Current Interpretive Data was last revised on 2017. Eosinophil pct 0.3 % [facility] Comment: Interpretive Data Percent cell count reference ranges are not reported, since discordance with absolute values may lead to misinterpretation of CBC data. Current Interpretive Data was last revised on 2017. Basophil pct 0.3 % [facility] Comment: Interpretive Data Percent cell count reference ranges are not reported, since discordance with absolute values may lead to misinterpretation of CBC data. Current Interpretive Data was last revised on 2017. Blood 11/05/2024 10:5 3 AM RETIREMENT SALES CONSULTANT 11/05/2024 11:23 AM RETIREMENT SALES CONSULTANT us Galindo Mazariegos MD LAB BLOOD ORDERABLES F inal Result [facility] [place] [address] * (ABNORMAL) CBC with auto differential (11/05/2024 10:53 AM RETIREMENT SALES CONSULTANT) WBC 11.6(H) 3.8 - 9.9 K/cumm Hgb 12.5 11.9 - 15.5 g/dL [facility] Hct 36.0 35.6 - 45.5 % [facility] Plt 251 150 - 400 K/cumm [facility] MPV 10.5 9.1 - 12.3 fL [facility] RBC 3.97 3.90 - 5.20 M/cumm [facility] MCV 90.7 81.3 - 96.4 fL [facility] MCH 31.5 27.1 - 33.3 pg [facility] MCHC 34.7 32.3 - 35.7 g/dL [facility] RDW CV 12.9 11.1 - 14.9 % [facility] RDW SD 42.8 35.7 - 48.1 fL [facility] NRBC abs 0.00 0.00 - 0.01 K/cumm [facility] Blood 11/05/2024 10:5 3 AM RETIREMENT SALES CONSULTANT 11/05/2024 11:23 AM RETIREMENT SALES CONSULTANT us Galindo Mazariegos MD LAB BLOOD ORDERABLES F inal Result Performing Organization Address City/[facility]/ZIP Co de Phone Number [facility] Department [place] [address] * (ABNORMAL) Bilirubin, direct (11/05/2024 10:53 AM RETIREMENT SALES CONSULTANT) [facility] Bilirubin, direct 0.5(H) 0.1 - 0.3 mg/dL Blood 11/05/2024 10:5 3 AM RETIREMENT SALES CONSULTANT 11/05/2024 11:22 AM RETIREMENT SALES CONSULTANT us Lesly Mendoza MD LAB BLOOD ORDERABLES Final Result [facility] Department [place] [address] * (ABNORMAL) Comprehensive metabolic panel (11/05/2024 10:53 AM RETIREMENT SALES CONSULTANT) Pathologist [facility] Sodium 135 135 - 145 mmol/L Potassium, pl 3.7 3.3 - 4.9 mmol/L [facility] Chloride 99 97 - 110 mmol/L [facility] CO2 24 22 - 32 mmol/L [facility] Anion gap 12 2 - 15 mmol/L [facility] BUN 9 6 - 25 mg/dL [facility] Creatinine 0.66 0.60 - 1.10 mg/dL [facility] Glucose 96 70 - 199 mg/dL [facility] Comment: Interpretive Data Fasting glucose [...] classification and Diagnosis of Diabetes Diabetes Care 202; 46: S19-S40. Current interpretive data was last revised 2022. Calcium 7.7(L) 8.5 - 10.3 mg/dL [facility] Bilirubin, total 1.4(H) 0.1 - 1.2 mg/dL [facility] Protein, pl 5.9(L) 6.5 - 8.5 g/dL [facility] Albumin 3.6 3.5 - 5.0 g/dL [facility] Alk phos 70 40 - 130 Units/L [facility] ALT 18 7 - 45 Units/L [facility] AST 24 10 - 45 Units/L [facility] Blood 11/05/2024 10:5 3 AM RETIREMENT SALES CONSULTANT 11/05/2024 11:22 AM RETIREMENT SALES CONSULTANT Galindo Mazariegos MD LAB BLOOD ORDERABLES F inal Result [facility] Department [place] [address] * ECG 12-LEAD (11/05/2024 10:21 AM RETIREMENT SALES CONSULTANT) Narrative [facility] - 11/05/2024 10:21 AM RETIREMENT SALES CONSULTANT Lesly Mendoza MD 11/05/2024 10:23 AM ECG 12 lead Date/Time: 11/05/2024 10:21 AM Performed by: Lesly Mendoza MD Authorized by: Lesly Mendoza MD Rate: ECG rate: 64 ECG rate assessment: normal Rhythm: Rhythm: sinus rhythm and A-V block Rhythm comment: 1st degree block Ectopy: Ectopy: none QRS: QRS axis: Normal QRS intervals: Normal Conduction: Conduction: normal ST segments: ST segments: Normal T waves: T waves: normal Other findings: Other findings: LVH Previous ECG: Previous ECG: Unavailable Interpretation: Interpretation: No acute injury pattern Recommended Follow-up: Recommended follow up: further workup in the ED Procedure Note Lesly Mendoza MD - 11/05/2024 10:21 AM CST Procedure ECG 12 lead Date/Time: 11/05/2024 10:21 AM Performed by: Lesly Mendoza MD Authorized by: Lesly Mendoza MD Rate: ECG rate: 64 ECG rate assessment: normal Rhythm: Rhythm: sinus rhythm and A-V block Rhythm comment: 1st degree block Ectopy: Ectopy: none QRS: QRS axis: Normal QRS intervals: Normal Conduction: Conduction: normal ST segments: ST segments: Normal T waves: T waves: normal Other findings: Other findings: LVH Previous ECG: Previous ECG: Unavailable Interpretation: Interpretation: No acute injury pattern Recommended Follow-up: Recommended follow up: further workup in the ED Lesly Mendoza MD 11/05/24 1023 us Lesly Mendoza MD ECG ORDERABLES Final Resu lt [facility] * (ABNORMAL) Troponin T high-sensitivity 2-hour (10/02/2024 1:47 PM RETIREMENT SALES CONSULTANT) Trop T hs 29(H) <=14 ng/L Comment: [...] report a delta. Blood 10/02/2024 1:47 PM RETIREMENT SALES CONSULTANT 10/02/2024 1:52 PM RETIREMENT SALES CONSULTANT Dawson Reyez MD LAB BLOOD ORDERABLES F inal Result Performing Organization Address [facility] de Phone Number [facility] [phone] [facility] [place] [address] * (ABNORMAL) Troponin T high-sensitivity series (baseline, 2hr, 4hr, 6hr) (10/02/2024 10:14 AM RETIREMENT SALES CONSULTANT) Trop T hs 22(H) <=14 ng/L Comment: Slight hemolysis may result in decreased troponin measurement. Consider recollection. Interpretive Data For further hscTnT resources including the diagnostic algorithm and an aid in interpretation, copy and paste this link: https://nrl.testcatalog.org/show/hsTrop Current Interpretive Data last revised 2020. Blood 10/02/2024 10:1 4 AM RETIREMENT SALES CONSULTANT 10/02/2024 10:14 AM RETIREMENT SALES CONSULTANT Dawson Reyez MD LAB BLOOD ORDERABLES F inal Result Performing Organization Address [facility] de Phone Number [facility] [address] [place] [address] * RI CRITICAL CARE ILL/INJURED PATIENT INIT 30-74 MIN (10/02/2024 9:59 AM RETIREMENT SALES CONSULTANT) Narrative Dawson Reyez MD - 10/02/2024 9:59 AM RETIREMENT SALES CONSULTANT Dawson Reyez MD 10/02/2024 2:21 PM Critical [...] record. us Dawson Reyez MD IN CLINIC/BEDSIDE MITAE CRISTOFER Final Result * (ABNORMAL) Troponin T high-sensitivity series (baseline, 2hr, 4hr, 6hr) (10/01/2024 11:52 PM RETIREMENT SALES CONSULTANT) Pathologist [facility] Trop T hs 29(H) <=14 ng/L Comment: Interpretive Data For further hscTnT resources including the diagnostic algorithm and an aid in interpretation, copy and paste this link: https://nrl.testcatalog.org/show/hsTrop Current Interpretive Data last revised 2020. Blood 10/01/2024 11:5 2 PM RETIREMENT SALES CONSULTANT 10/02/2024 12:01 AM RETIREMENT SALES CONSULTANT us Dewyane Saucedo MD LAB BLOOD ORDERABLES Edited Result - Final [facility] [address] [place] [address] * eGFR (10/01/2024 11:52 PM RETIREMENT SALES CONSULTANT) Pathologist [facility] eGFR 75 >=60 mL/min/1. 73 m2 Comment: [...] reviewed 2021. Blood 10/01/2024 11:5 2 PM RETIREMENT SALES CONSULTANT 10/02/2024 12:21 AM RETIREMENT SALES CONSULTANT us Dewayne Saucedo MD LAB BLOOD ORDERABLES Final Result [facility] [id number] [address] Department [place] [address] * Differential, auto (10/01/2024 11:52 PM RETIREMENT SALES CONSULTANT) Neutrophil abs 4.2 1.5 - 6.5 K/cumm Imm gran abs 0.0 0.0 - 0.1 K/cumm [facility] Lymphocyte abs 2.2 0.8 - 3.3 K/cumm [facility] Monocyte abs 0.5 0.2 - 0.8 K/cumm [facility] Eosinophil abs 0.0 0.0 - 0.5 K/cumm [facility] Basophil abs 0.1 0.0 - 0.1 K/cumm [facility] Neutrophil pct 60.4 % [facility] Comment: Interpretive Data Percent cell count reference ranges are not reported, since discordance with absolute values may lead to misinterpretation of CBC data. Current Interpretive Data was last revised on 2017. Imm gran pct 0.3 % [facility] Comment: Interpretive Data Percent cell count reference ranges are not reported, since discordance with absolute values may lead to misinterpretation of CBC data. Current Interpretive Data was last revised on 2017. Lymphocyte pct 31.6 % [facility] Comment: Interpretive Data Percent cell count reference ranges are not reported, since discordance with absolute values may lead to misinterpretation of CBC data. Current Interpretive Data was last revised on 2017. Monocyte pct 6.6 % [facility] Comment: Interpretive Data Percent cell count reference ranges are not reported, since discordance with absolute values may lead to misinterpretation of CBC data. Current Interpretive Data was last revised on 2017. Eosinophil pct 0.4 % [facility] Comment: Interpretive Data Percent cell count reference ranges are not reported, since discordance with absolute values may lead to misinterpretation of CBC data. Current Interpretive Data was last revised on 2017. Basophil pct 0.7 % [facility] Comment: Interpretive Data Percent cell count reference ranges are not reported, since discordance with absolute values may lead to misinterpretation of CBC data. Current Interpretive Data was last revised on 2017. Blood 10/01/2024 11:5 2 PM RETIREMENT SALES CONSULTANT 10/02/2024 12:01 AM RETIREMENT SALES CONSULTANT us Dewayne Saucedo MD LAB BLOOD ORDERABLES Final Result [facility] [address] [address] Department [place] [address] * (ABNORMAL) CBC with auto differential (10/01/2024 11:52 PM RETIREMENT SALES CONSULTANT) WBC 7.0 3.8 - 9.9 K/cumm Hgb 9.5(L) 11.9 - 15.5 g/dL [facility] Hct 29.0(L) 35.6 - 45.5 % [facility] Plt 203 150 - 400 K/cumm [facility] MPV 9.6 9.1 - 12.3 fL [facility] RBC 3.06(L) 3.90 - 5.20 M/cumm [facility] MCV 94.8 81.3 - 96.4 fL [facility] MCH 31.0 27.1 - 33.3 pg [facility] MCHC 32.8 32.3 - 35.7 g/dL [facility] RDW CV 12.5 11.1 - 14.9 % [facility] RDW SD 42.7 35.7 - 48.1 fL [facility] NRBC abs 0.00 0.00 - 0.01 K/cumm [facility] Blood Venous blood specimen / Unknown 10/01/2024 11:52 PM RETIREMENT SALES CONSULTANT 10/02/2024 12:01 AM RETIREMENT SALES CONSULTANT us Dewayne Saucedo MD LAB [place]LOOD [place] [address] [address] Department [place] [address] * (ABNORMAL) Comprehensive metabolic panel (10/01/2024 11:52 PM RETIREMENT SALES CONSULTANT) Sodium 130(L) 135 - 145 mmol/L Potassium, [...] classification and Diagnosis of Diabetes Diabetes Care 202; 46: S19-S40. Current interpretive data was last [...] [facility] Blood 10/01/2024 11:5 2 PM RETIREMENT SALES CONSULTANT 10/02/2024 12:01 AM RETIREMENT SALES CONSULTANT Dewayne Saucedo MD LAB BLOOD ORDERABLES Final Result Performing Organization Address [facility] Co de Phone Number [facility] [address] Department [place] [address] * ECG 12 lead (10/01/2024 11:45 PM RETIREMENT SALES CONSULTANT) 10/01/2024 11:4 5 PM RETIREMENT SALES CONSULTANT Narrative [facility] - 10/02/2024 12:51 PM RETIREMENT SALES CONSULTANT Vent Rate: 51 bpm RR Interval: 1170 msec RI Interval: 205 msec QRS Duration: 90 msec QT Interval: 465 msec QTC Interval: 441 msec P-R-T Argyle: 68 - -38 - 23 degrees IMPRESSION: SINUS BRADYCARDIA VOLTAGE CRITERIA FOR LVH Electronically Signed By: Jerrod Blackwell MD, [facility] Dewayne Saucedo MD ECG ORDERABLES Final Resul t Performing Organization Address [facility] de Phone Number [facility] * TYPE AND SCREEN 14 DAY (09/17/2024 12:20 PM RETIREMENT SALES CONSULTANT) ABO Rh O Positive Caitie, indirect Negative [facility] Blood 09/17/2024 12:2 0 PM RETIREMENT SALES CONSULTANT 09/17/2024 1:11 PM RETIREMENT SALES CONSULTANT Narrative [facility] - 09/17/2024 2:19 PM RETIREMENT SALES CONSULTANT Is this test being ordered in advance for a procedure?->Yes Expected date of procedure:->09/28/24 Has the patient been transfused in the past 3 months?->No Has the patient been in the past 3 months?->No Andi Benedict MD LAB BLOOD BANK TEST ORDERABL ES Final Result Performing Organization Address [facility] Co de Phone Number [facility] [place] [address] * eGFR (09/17/2024 12:20 PM RETIREMENT SALES CONSULTANT) Pathologist [facility] eGFR 69 >=60 mL/min/1. 73 m2 Comment: [...] reviewed 2021. Blood 09/17/2024 12:2 0 PM RETIREMENT SALES CONSULTANT 09/17/2024 12:54 PM RETIREMENT SALES CONSULTANT us Andi Benedict MD LAB BLOOD ORDERABLES Final R esult [facility] [place] [address] * (ABNORMAL) CBC without differential (09/17/2024 12:20 PM RETIREMENT SALES CONSULTANT) [facility] WBC 10.3(H) 3.8 - 9.9 K/cumm Hgb 12.7 11.9 - 15.5 g/dL [facility] Hct 37.0 35.6 - 45.5 % [facility] Plt 260 150 - 400 K/cumm [facility] MPV 10.5 9.1 - 12.3 fL [facility] RBC 4.17 3.90 - 5.20 M/cumm [facility] MCV 88.7 81.3 - 96.4 fL [facility] MCH 30.5 27.1 - 33.3 pg [facility] MCHC 34.3 32.3 - 35.7 g/dL [facility] RDW CV 13.3 11.1 - 14.9 % [facility] RDW SD 42.7 35.7 - 48.1 fL [facility] NRBC abs 0.00 0.00 - 0.01 K/cumm [facility] Blood 09/17/2024 12:2 0 PM RETIREMENT SALES CONSULTANT 09/17/2024 12:55 PM RETIREMENT SALES CONSULTANT us Andi Benedict MD LAB BLOOD ORDERABLES Final R esult [facility] Department [place] [address] * (ABNORMAL) Comprehensive metabolic panel (09/17/2024 12:20 PM RETIREMENT SALES CONSULTANT) Sodium 130(L) 135 - 145 mmol/L Potassium, pl 4.2 3.3 - 4.9 mmol/L [facility] Chloride 95(L) 97 - 110 mmol/L [facility] CO2 23 22 - 32 mmol/L [facility] Anion gap 12 2 - 15 mmol/L [facility] BUN 12 6 - 25 mg/dL [facility] Creatinine 0.85 0.60 - 1.10 mg/dL [facility] Glucose 88 70 - 199 mg/dL [facility] Comment: Interpretive Data Fasting glucose [...] classification and Diagnosis of Diabetes Diabetes Care 202; 46: S19-S40. Current interpretive data was last revised 2022. Calcium 9.3 8.5 - 10.3 mg/dL [facility] Bilirubin, total 1.2 0.1 - 1.2 mg/dL [facility] Protein, pl 7.1 6.5 - 8.5 g/dL [facility] Albumin 4.4 3.5 - 5.0 g/dL [facility] Alk phos 81 40 - 130 Units/L [facility] ALT 19 7 - 45 Units/L [facility] AST 27 10 - 45 Units/L [facility] Blood 09/17/2024 12:2 0 PM RETIREMENT SALES CONSULTANT 09/17/2024 12:54 PM RETIREMENT SALES CONSULTANT us Andi Benedict MD LAB BLOOD ORDERABLES Final R esult [facility] Department [place] [address] * Lipid panel (07/05/2024 10:45 AM CDT) [...] NCEP Expert Panel. Circulation 2004;110:227 3. Otis Trejo al. CHARLIE Cardiol. 2019January 13;5(5):540-548. doi: [email or web address] Current Interpretive Data was [...] revised on 2018. Chol/HDL ratio 2 COBY FRANZ Blood 07/05/2024 10:4 5 AM CDT 07/05/2024 10:48 AM CDT Narrative COBY FRANZ - 07/05/2024 11:38 AM CDT This lipid panel was automatically ordered due to a significant change in Troponin. The dietary status of the patient at the collection time should be correlated with the lipid results. 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 Filament Welder Expl anation ADVANCE DIRECTIVE 11/15/2024 7:07 AM POWER OF WARD NURSE-MEDICAL ADVANCE DIRECTIVE 11/09/2024 1:19 PM VOIDE D DPOA ADVANCE DIRECTIVE 03/28/2018 12:00 AM PALLAVI GRAHAM * Full Code (Latest Code Status on File) Date Activated Date Inactivated Comments 11/05/2024 5:38 PM 11/11/2024 5:36 PM * Full Code Date Activated Date Inactivated Comments 07/05/2024 9:41 AM 07/16/2024 8:50 PM * Full Code Date Activated Date Inactivated Comments 07/06/2019 12:06 PM 07/06/2019 9:38 PM * Full Code Date Activated Date Inactivated Comments 01/13/2018 11:05 AM 01/14/2018 1:10 PM Care Teams Recreation Teacher Relationship Specialty Start Date End Date Neli Moura DO [facility]7 [facility] [address] RAHMAN [address] [place] [id number] PCP - General Family Medicine 03/26/24
--- OUTSIDE RECORDS SUMMARY | 2024-11-28 07:01 | XMS_ITS | Clinical Summary ---
Author Organization [facility] Address [address] [place] [address] Care Team Providers Care [place] Supervisor Name Role Phone Martell Nelipilar Martin DO Primary Care Provider + Allergies No known active allergies Medications busPIRone (BUSPAR) 10 mg tabletIndicatio ns:Generalized Anxiety Disorder Take 1 tablet (10 mg total) by mouth 2 (two) times a day Active levothyroxine (SYNTHROID, LEVOTHROID) 88 mcg tabletIndicatio ns:hypothyroidi sm Take 1 tablet (88 mcg total) by mouth bottom man before breakfast Active aspirin 81 mg tabletIndicatio [...] total) by mouth every morning 05/28/20 Active polyethylene glycol (MIRALAX) 17 gram packetIndicatio [...] times a day 180 tablet 3 07/16/20 Active oxyCODONE-aceta minophen (PERCOCET) 10-325 mg per tabletIndicatio ns:Pain Take 1 tablet by mouth every 6 (six) hours as needed for pain for up to 35 doses 35 tablet 07/16/20 Active Eliquis 2.5 mg tablet Take 1 tablet (2.5 mg total) by mouth every 12 (twelve) hours 60 tablet 09/29/192025 Active guanFACINE (TENEX) 1 mg tablet Take [...] mg total) by mouth daily 30 tablet 3 11/11/19 25 2025 Active bisacodyl EC (DULCOLAX [...] 3 (three) times a day 90 tablet 11 11/16/19 25 Active doxazosin (CARDURA) 1 mg tablet Take [...] 11/11/2024 Assessment & Plan (11/11/2024 11:15 AM MACHINE HAMPER MAKER): 11/11 patient had me examine her left wrist (photo loaded in EPIC) stated wound occurred due to EMS poking site with a pen on accident site is bruised with a scab present, no drainage or warmth noted to the site. Mood disorder 11/06/2024 Assessment & Plan (11/07/2024 10:50 AM MACHINE HAMPER MAKER): Home regimen: buspar, guanfacine (held while NPO) 11/07 resumed Chronic pain 11/06/2024 Assessment & Plan (11/10/2024 8:07 AM MACHINE HAMPER MAKER): Home regimen: percocet 10/325 QID PRN, last dispensed 11/01 for #56 tabs --- hold on oral narcotics until diet advanced as not to cloud picture iso SBO 11/10 resumed Hypothyroidism 11/06/2024 Assessment & Plan (11/07/2024 10:49 AM MACHINE HAMPER MAKER): Home regimen: levothyroxine (held while NPO) - plan to initiate IV dosing if NPO >5d per [facility] policy 11/07 resumed Discharge planning issues 11/06/2024 Assessment & Plan (11/11/2024 11:22 AM MACHINE HAMPER MAKER): 11/06 barrier to discharge: PO tolerance, ADD [...] 11/06/2024 Assessment & Plan (11/06/2024 11:09 AM MACHINE HAMPER MAKER): 11/06 epic dispense report reviewed and updated in ADMISSIONS tab At risk for malnutrition 11/06/2024 Assessment & Plan (11/10/2024 8:07 AM MACHINE HAMPER MAKER): 11/06 Body mass index is 26.26 kg/m [...] 11/05/2024 Assessment & Plan (11/11/2024 11:14 AM MACHINE HAMPER MAKER): PSHx: : cholecystectomy, KELLY 10/2023 OSH: SBR Previous obstructive [...] 09/28/2024 Assessment & Plan (11/10/2024 12:02 PM MACHINE HAMPER MAKER): TTE 07/06/2024: EF 70%, G1DD Home regimen: [...] titration Assessment & Plan (09/28/2024 9:18 AM MACHINE HAMPER MAKER): - Diastolic dysfunction w/o CHF. Diastolic function: stage I - impaired relaxation LVEF: >70% Asthma 09/28/2024 Assessment & Plan (11/10/2024 12:06 PM MACHINE HAMPER MAKER): Albuterol PRN --- plan to discharge with new inhaler (ordered), as patient has not used hers at home, f/u with PCP (CM facilitating) Assessment & Plan (09/28/2024 9:29 AM MACHINE HAMPER MAKER): - Continue home albueterol and advair - IS - OOB when able PAF (paroxysmal atrial fibrillation) 05/12/2023 Assessment & Plan (11/10/2024 12:04 PM MACHINE HAMPER MAKER): Home rate control regimen: nebivolol, amiodarone (held [...] up Assessment & Plan (09/28/2024 9:20 AM MACHINE HAMPER MAKER): Home regimen: amiodarone, Eliquis - continue amiodarone [...] 05/28/2021 Assessment & Plan (11/07/2024 10:49 AM MACHINE HAMPER MAKER): Chronic dating back to <2018 Baseline Na: 125-133 Home regimen: 1g NaCl tabs TID (held while NPO) 11/07 resumed Hypertensive heart disease with heart failure Pigmentary glaucoma of both eyes, 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 Assessment & Plan (09/23/2017 1:48 PM MACHINE HAMPER MAKER): Negative Lexiscan nuclear stress test back in August 2017. She does have strong family history for coronary artery disease. Will re-evaluate next visit. Evidence of type 1 diastolic dysfunction on echocardiogram. Mixed hyperlipidemia 09/23/2017 Assessment & Plan (02/16/2018 9:11 AM CDT): Continue Lipitor. Assessment & Plan (12/29/2017 1:10 PM CDT): Continue Lipitor 40 mg p.o. daily. Assessment & Plan (09/23/2017 1:49 PM MACHINE HAMPER MAKER): L continue Lipitor. 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 Diabetes mellitus 07/25/2011 Assessment & Plan (11/07/2024 10:47 AM MACHINE HAMPER MAKER): Last A1c 06/2024: 5.6 Home regimen: none Current diet: NPO SSI while inpatient, goal BG <180 A1c 11/06: 5.5 Assessment & Plan (09/28/2024 9:20 AM MACHINE HAMPER MAKER): HgbA1c 5.6, not on any home medications - Monitor glucose with daily labs - Carb consistent diet when eating Osteoarthritis 05/13/2011 Trochanteric bursitis 01/12/2011 Overview (12/26/2017): Description: Trochanteric Bursitis Rheumatoid arthritis 01/12/2011 Overview (12/26/2017): Description: Rheumatoid Arthritis Assessment & Plan (11/06/2024 10:59 AM MACHINE HAMPER MAKER): Home regimen: none Irritable bowel syndrome 11/03/2010 Assessment & Plan (11/10/2024 12:04 PM MACHINE HAMPER MAKER): Home regimen: linzess, mag oxide (held while NPO) - resume home regimen when tolerating regular diet --- patient requesting to resume linzess 11/10 (ordered for AM dosing 11/11) at higher rate than previously taking, reports that PCP had intended to do so as needed, CM assisting with obtaining PCP appt on discharge Gastroesophageal reflux disease 11/03/2010 Assessment & Plan (11/07/2024 10:49 AM MACHINE HAMPER MAKER): Home regimen: protonix - IV formulation while NPO - resume home formulation when tolerating regular diet Pseudophakia 08/23/2010 Coronary artery disease invo lving [place] coronary artery of [place] heart with angina pectoris Assessment & Plan (11/10/2024 8:08 AM MACHINE HAMPER MAKER): S/p JOSE to RCA x2 (06/2024) Home regimen: asa, plavix (last doses 11/04), lipitor, ezetimibe TTE 07/06/2024: EF 70%, G1DD 11/06 start cangrelor infusion while NPO 11/07-11/10 passed small bowel challenge, see alt parameter for diet modifications, continue cangrelor until diet tolerance declared Assessment & Plan (09/28/2024 9:15 AM MACHINE HAMPER MAKER): S/p RCA stenting 07/08 - continue ASA, [...] 11/19/2024 Assessment & Plan (09/28/2024 9:20 AM MACHINE HAMPER MAKER): 09/28: s/p Left carotid endarterectomy - OU, [...] (06/25/2019): Added automatically from request for surgery [id number] Chest pain 06/25/2019 10/29/2021 Overview (06/25/2019): Added automatically from request for surgery [id number] Essential hypertension, malignant 09/23/2017 03/22/2019 Assessment & Plan (02/16/2018 9:10 AM CDT): Blood pressure is much better controlled. Continue current treatment. Assessment & Plan (12/29/2017 1:10 PM CDT): Blood pressure well controlled. Continue current treatment. Assessment & Plan (09/23/2017 1:48 PM MACHINE HAMPER MAKER): Blood pressure is controlled today however patient [...] Type Department Care Team Description 11/22/2024 Telephone [facility] Cardiology [address] [place] [address] [place] [phone] Alfredo Pedraza MD 11/15/2024 1:00 PM MACHINE HAMPER MAKER Office Visit [place] [address] [place] [phone] Alfredo Pedraza MD PAF (paroxysmal atrial fibrillation) (HCC) (Primary Dx); History of carotid artery disease; Coronary artery disease involving [place] coronary artery of [place] heart with angina pectoris; Mixed hyperlipidemia; Resistant hypertension 11/08/2024 2:44 PM MACHINE HAMPER MAKER Anesthesia Event [address] [phone] Nadiya Garcia NP 11/05/2024 9:59 AM MACHINE HAMPER MAKER - 11/11/2024 1:28 PM MACHINE HAMPER MAKER Hospital Encounter [address] [phone] Lesly Mendoza MD Ngo, MD Mariaelena Harvey Amjad, MD Diagnosis unknown (Primary Dx); Small bowel obstruction (HCC); Abdominal pain Discharge Disposition: Discharge to home or self care 11/02/2024 Telephone [facility] Cardiology [address] [place] [address] [place] [phone] Alfredo Pedraza MD 10/25/2024 Telephone [facility] Cardiology [address] [place] [address] [address] [place] [phone] Mae Mac MA Med Refill 10/22/2024 Telephone [facility] Surgery [address] [place] [address] Medical Office Building 1 [address], [place] [address] Dayana Neal RMA Scheduling Appointments 10/18/2024 Telephone [facility] Cardiology [address] [facility] [address] [place] [phone] Alfredo Pedraza MD Med Refill 10/08/2024 Telephone [facility] Surgery [address] [place] [address] Medical Office Building [address], [place] [phone] Carolina Maria NP 10/06/2024 Telephone [facility] Surgery [address] [place] [address] Medical Office Building 1 [address], [place] [address] Dayana Neal RMA Med Management 10/04/2024 Telephone [facility] Cardiology [address] [place] [address] [address] [place] [phone] Alfredo Pedraza MD 10/02/2024 8:18 AM MACHINE HAMPER MAKER - 10/02/2024 4:06 PM MACHINE HAMPER MAKER Emergency [facility] Emergency Department [id number] [place] [address] Dawson Reyez MD Chest tightness (Primary Dx); Accelerated hypertension Discharge Disposition: Discharge to home or self care 09/29/2024 Telephone [facility] Cardiology [address] [place] [address] [place] [phone] Alfredo Pedraza MD 09/29/2024 Telephone [facility] Surgery [address] [place] [address] Medical Office Building [address] [place] [phone] Dayana Neal RMA Surgery Confirmation 09/17/2024 11:59 PM MACHINE HAMPER MAKER Anesthesia Event [facility] Operating Room [address] [place] [address] Andi Benedict MD 09/17/2024 10:00 AM MACHINE HAMPER MAKER Pre-Admission Testing [facility] Center for Preoperative Assessment and Planning [facility] ([facility]) [address] [place] [id number] Preoperative testing (Primary Dx) 09/06/2024 Telephone [facility] Surgery [address] [place] [address] Medical Office Building [address] [place] [phone] Carolina Maria NP 08/30/2024 1:15 PM MACHINE HAMPER MAKER Office Visit [facility] Cardiology [address] [place] [phone] Alfredo Pedraza MD PAF (paroxysmal atrial fibrillation) (HCC) (Primary Dx); Coronary artery disease involving [place] coronary artery of [place] heart with angina pectoris; History of carotid artery disease; Mixed hyperlipidemia; Hypertensive heart disease with heart failure (HCC) from Last 3 Months Immunizations Immunization Administration Dates Next Due COVID-19 mRNA ([employer]) 0.3 m L (30 mcg) vaccine (12 [...] In the past 12 months has e [employer], oil, or water [employer] threatened to shut off services in your [...] How often do you attend chur or temple services? More than 4 times per year 11/09/2024 Do you belong to any clubs o r organizations such as buddhist groups, unions, fraternal or athletic groups, or [...] Date Recorded PHQ-2 Total Score 0 11/09/2024 [facility] - Occupational Stress Questionnaire Answer Date [...] were you homeless or living in a skilled nursing (including now)? No 11/09/2024 Personal Safety Answer Date Recorded Have you ever been in or are you currently in a harmful physical or emotional relationship or is someone making you feel afraid or unsafe? Denies 11/05/2024 Comments No Sex and Gender Information Value Date Recorded Sex Assigned at Not on file Legal Sex Female 2:12 AM MACHINE HAMPER MAKER Gender Identity Not on file Sexual Orientation Not on file Obstetrics History Last Filed Vital Signs Vital Sign Reading Time Taken Comments Blood Pressure 210/82 11/15/2024 12:53 PM MACHINE HAMPER MAKER Pulse 68 11/15/2024 12:53 PM MACHINE HAMPER MAKER Temperature 36.8 C (98.2 F) 11/11/2024 11:20 AM MACHINE HAMPER MAKER Respiratory Rate 18 11/11/2024 8:05 AM MACHINE HAMPER MAKER Oxygen Saturation 98% 11/15/2024 12:53 PM MACHINE HAMPER MAKER Inhaled Oxygen Concentration - - Weight 57.6 kg (127 lb) 11/15/2024 12:53 PM MACHINE HAMPER MAKER Height 149.9 cm (4' 11 ) 11/15/2024 12:53 PM MACHINE HAMPER MAKER Body Mass Index 25.65 11/15/2024 12:53 PM MACHINE HAMPER MAKER Plan of Treatment Upcoming Encounters Date Type Department Care Team (Latest Contact Info) Description 12/08/2024 8:30 AM CDT Hospital Encounter [facility] Operating Room [address] [place] [address] [place] [address] [address] [place] [address] Stenosis of left carotid artery 12/08/2024 8:30 AM CDT - 12/08/2024 1:35 PM CDT Surgery [facility] Operating Room [address] [place] [phone] [place] [address] [address] [place] [address] LEFT CAROTID ENDARTERECTOMY Health Maintenance Due Date Last Done Comments Albumin Creatinine Ratio, Urine 1943 Osteoporosis Screening-Bone Density Scan 1945 Foot Exam 1943 Hepatitis B Screening 1961 Zoster Vaccine (1 of 2) 1993 Well Visit 65+ 01/06/2008 Pneumococcal vaccine 65+ (2 of 2 - PPSV23) 09/02/2016 07/08/2016, 07/12/2012, 07/12/2012 Dilated Eye Exam 03/05/2023 03/05/2022, , 01/17/2022 Hemoglobin A1C 05/06/2025 11/06/2024, 06/16, 03/29/2018 Lipid Panel 07/05/2025 07/05/2024, 06/15, 03/28/2018, Additional history exists Depression Screening 11/05/2025 11/05/2024 eGFR 11/10/2025 11/10/2024, 10/17, 11/08/2024, Additional history exists Fall Risk Assessment 11/11/2025 11/11/2024 DTaP/Tdap/Td Vaccine (4 - Td or Tdap) 06/19/2033 06/19/2023, 06/30/2016, 07/19/2013 Influenza Vaccine Completed 07/16/2024, , 07/14/2019, Additional history exists Medical Devices Implanted Type Area Chief Radiologic Technologist Device Identifier Shelf Expiration Date Model / Serial / Lot [employer] Report Stent Coronary Drug Eluting Rapid Exchange Synergy Megatron 3.99d11ev [place] [employer] [id number] - [id number] Implanted:Qty: 1 on 07/06/2024 by Alfredo Pedraza MD at [facility] [employer] Report 11/19/2025 [id number] / / [id number] [employer] Scientific Renewable Funding Stent Drug Eluting S Megatron 3.50x8mm [id number] - [id number] Implanted:Qty: 1 on 07/06/2024 by Alfredo Pedraza MD at [facility] [employer] [facility] 07/07/2025 [id number] / / [id number] [employer] Angio-Seal Vip 6fr Closere Device [id number] - [id number] Implanted:Qty: 1 on 07/06/2024 [id number] / / Procedures Procedure Name Priority Date/Time Associated Diagnosis Comments POCT GLUCOSE DEVICE Routine 11/11/2024 1 1:23 AM MACHINE HAMPER MAKER POCT GLUCOSE DEVICE Routine 11/11/2024 8 :06 AM MACHINE HAMPER MAKER XR ABDOMEN AP 1 VIEW Timed 11/11/2024 5:03 AM MACHINE HAMPER MAKER POCT GLUCOSE DEVICE Routine 11/11/2024 4 :39 AM MACHINE HAMPER MAKER POCT GLUCOSE DEVICE Routine 11/11/2024 1 2:14 AM MACHINE HAMPER MAKER EGFR Routine 11/10/2024 8:33 PM MACHINE HAMPER MAKER BASIC METABOLIC PANEL Routine 11/10/2024 8:33 PM MACHINE HAMPER MAKER CBC WITHOUT DIFFERENTIAL Routine 11/10/2024 8:33 PM MACHINE HAMPER MAKER MAGNESIUM Routine 11/10/2024 8:33 PM MACHINE HAMPER MAKER PHOSPHORUS Routine 11/10/2024 8:33 PM MACHINE HAMPER MAKER POCT GLUCOSE DEVICE Routine 11/10/2024 8 :18 PM MACHINE HAMPER MAKER POCT GLUCOSE DEVICE Routine 11/10/2024 5 :30 PM MACHINE HAMPER MAKER POCT GLUCOSE DEVICE Routine 11/10/2024 1 1:43 AM MACHINE HAMPER MAKER POCT GLUCOSE DEVICE Routine 11/10/2024 7 :49 AM MACHINE HAMPER MAKER XR ABDOMEN AP 1 VIEW Timed 11/10/2024 5:56 AM MACHINE HAMPER MAKER POCT GLUCOSE DEVICE Routine 11/10/2024 4 :22 AM MACHINE HAMPER MAKER POCT GLUCOSE DEVICE Routine 11/10/2024 1 2:23 AM MACHINE HAMPER MAKER EGFR Routine 11/09/2024 10:18 PM MACHINE HAMPER MAKER BASIC METABOLIC PANEL Routine 11/09/2024 10:18 PM MACHINE HAMPER MAKER CBC WITHOUT DIFFERENTIAL Routine 11/09/2024 10:18 PM MACHINE HAMPER MAKER MAGNESIUM Routine 11/09/2024 10:18 PM MACHINE HAMPER MAKER PHOSPHORUS Routine 11/09/2024 10:18 PM MACHINE HAMPER MAKER POCT GLUCOSE DEVICE Routine 11/09/2024 8 :27 PM MACHINE HAMPER MAKER POCT GLUCOSE DEVICE Routine 11/09/2024 5 :23 PM MACHINE HAMPER MAKER POCT GLUCOSE DEVICE Routine 11/09/2024 1 1:59 AM MACHINE HAMPER MAKER POCT GLUCOSE DEVICE Routine 11/09/2024 8 :43 AM MACHINE HAMPER MAKER XR ABDOMEN AP 1 VIEW Timed 11/09/2024 6:03 AM MACHINE HAMPER MAKER POCT GLUCOSE DEVICE Routine 11/09/2024 4 :25 AM MACHINE HAMPER MAKER POCT GLUCOSE DEVICE Routine 11/09/2024 1 2:13 AM MACHINE HAMPER MAKER EGFR Routine 11/08/2024 9:05 PM MACHINE HAMPER MAKER BASIC METABOLIC PANEL Routine 11/08/2024 9:05 PM MACHINE HAMPER MAKER CBC WITHOUT DIFFERENTIAL Routine 11/08/2024 9:05 PM MACHINE HAMPER MAKER MAGNESIUM Routine 11/08/2024 9:05 PM MACHINE HAMPER MAKER PHOSPHORUS Routine 11/08/2024 9:05 PM MACHINE HAMPER MAKER POCT GLUCOSE DEVICE Routine 11/08/2024 8 :09 PM MACHINE HAMPER MAKER POCT GLUCOSE DEVICE Routine 11/08/2024 5 :46 PM MACHINE HAMPER MAKER POCT GLUCOSE DEVICE Routine 11/08/2024 1 2:18 PM MACHINE HAMPER MAKER ECG 12-LEAD Routine 11/08/2024 10:21 AM MACHINE HAMPER MAKER POCT GLUCOSE DEVICE Routine 11/08/2024 7 :33 AM MACHINE HAMPER MAKER XR ABDOMEN AP 1 VIEW Timed 11/08/2024 5:32 AM MACHINE HAMPER MAKER POCT GLUCOSE DEVICE Routine 11/08/2024 4 :17 AM MACHINE HAMPER MAKER POCT GLUCOSE DEVICE Routine 11/07/2024 1 1:50 PM MACHINE HAMPER MAKER POCT GLUCOSE DEVICE Routine 11/07/2024 8 :33 PM MACHINE HAMPER MAKER EGFR Routine 11/07/2024 7:46 PM MACHINE HAMPER MAKER BASIC METABOLIC PANEL Routine 11/07/2024 7:46 PM MACHINE HAMPER MAKER CBC WITHOUT DIFFERENTIAL Routine 11/07/2024 7:46 PM MACHINE HAMPER MAKER MAGNESIUM Routine 11/07/2024 7:46 PM MACHINE HAMPER MAKER PHOSPHORUS Routine 11/07/2024 7:46 PM MACHINE HAMPER MAKER POCT GLUCOSE DEVICE Routine 11/07/2024 4 :20 PM MACHINE HAMPER MAKER XR ABDOMEN AP 1 VIEW IP Routine 11/07/2024 12:00 PM MACHINE HAMPER MAKER POCT GLUCOSE DEVICE Routine 11/07/2024 1 1:46 AM MACHINE HAMPER MAKER URINALYSIS AND REFLEX TO MICROSCOPIC AND CULTURE STAT 11/07/2024 9:43 AM MACHINE HAMPER MAKER POCT GLUCOSE DEVICE Routine 11/07/2024 8 :03 AM MACHINE HAMPER MAKER XR ABDOMEN AP 1 VIEW Timed 11/07/2024 5:24 AM MACHINE HAMPER MAKER POCT GLUCOSE DEVICE Routine 11/07/2024 5 :11 AM MACHINE HAMPER MAKER POCT GLUCOSE DEVICE Routine 11/07/2024 1 2:17 AM MACHINE HAMPER MAKER XR ABDOMEN AP 1 VIEW IP Routine 11/06/2024 9:52 PM MACHINE HAMPER MAKER EGFR Routine 11/06/2024 9:34 PM MACHINE HAMPER MAKER HEMOGLOBIN A1C Routine 11/06/2024 9:34 PM MACHINE HAMPER MAKER ALBUMIN Routine 11/06/2024 9:34 PM MACHINE HAMPER MAKER PREALBUMIN Routine 11/06/2024 9:34 PM MACHINE HAMPER MAKER BASIC METABOLIC PANEL Routine 11/06/2024 9:34 PM MACHINE HAMPER MAKER CBC WITHOUT DIFFERENTIAL Routine 11/06/2024 9:34 PM MACHINE HAMPER MAKER MAGNESIUM Routine 11/06/2024 9:34 PM MACHINE HAMPER MAKER PHOSPHORUS Routine 11/06/2024 9:34 PM MACHINE HAMPER MAKER POCT GLUCOSE DEVICE Routine 11/06/2024 8 :08 PM MACHINE HAMPER MAKER XR ABDOMEN AP 1 VIEW IP Routine 11/06/2024 4:15 PM MACHINE HAMPER MAKER POCT GLUCOSE DEVICE Routine 11/06/2024 4 :00 PM MACHINE HAMPER MAKER POCT GLUCOSE DEVICE Routine 11/06/2024 1 2:00 PM MACHINE HAMPER MAKER XR ABDOMEN AP 1 VIEW ED Urgent/IP Urgent 11/06/2024 6:54 AM MACHINE HAMPER MAKER EGFR Routine 11/05/2024 10:27 PM MACHINE HAMPER MAKER LACTATE Routine 11/05/2024 10:27 PM MACHINE HAMPER MAKER BASIC METABOLIC PANEL Routine 11/05/2024 10:27 PM MACHINE HAMPER MAKER CBC WITHOUT DIFFERENTIAL Routine 11/05/2024 10:27 PM MACHINE HAMPER MAKER MAGNESIUM Routine 11/05/2024 10:27 PM MACHINE HAMPER MAKER PHOSPHORUS Routine 11/05/2024 10:27 PM MACHINE HAMPER MAKER PROTIME-INR STAT 11/05/2024 11:51 AM MACHINE HAMPER MAKER APTT STAT 11/05/2024 11:51 AM MACHINE HAMPER MAKER TYPE AND SCREEN STAT 11/05/2024 11:51 AM MACHINE HAMPER MAKER XR ABDOMEN AP 1 VIEW ED Urgent/IP Urgent 11/05/2024 11:26 AM MACHINE HAMPER MAKER XR TRANSFER OF OUTSIDE FILMS Routine 11/05/2024 11:[address] BODY OUTSIDE CONSULT Routine 11/05/2024 11:11 AM MACHINE HAMPER MAKER Diagnosis unknown BILIRUBIN, DIRECT STAT 11/05/2024 10: 53 AM MACHINE HAMPER MAKER EGFR STAT 11/05/2024 10:53 AM MACHINE HAMPER MAKER DIFFERENTIAL AUTO Routine 11/05/2024 10: 53 AM MACHINE HAMPER MAKER LACTATE STAT 11/05/2024 10:53 AM MACHINE HAMPER MAKER CBC WITH AUTO DIFFERENTIAL Routine 11/05/2024 10:53 AM MACHINE HAMPER MAKER COMPREHENSIVE METABOLIC PANEL STAT 11/05/2024 10:53 AM MACHINE HAMPER MAKER ECG 12-LEAD STAT 11/05/2024 10:21 AM MACHINE HAMPER MAKER TROPONIN T HIGH-SENSITIVITY 2-HOUR STAT 10/02/2024 1:47 PM MACHINE HAMPER MAKER TROPONIN T HIGH-SENSITIVITY SERIES (BASELINE, 2HR, 4HR, 6HR) STAT 10/02/2024 10:14 AM MACHINE HAMPER MAKER [place] CRITICAL CARE ILL/INJURED PATIENT INIT 30-74 MIN Routine 10/02/2024 9:59 AM MACHINE HAMPER MAKER EGFR STAT 10/01/2024 11:52 PM MACHINE HAMPER MAKER DIFFERENTIAL AUTO STAT 10/01/2024 11: 52 PM MACHINE HAMPER MAKER TROPONIN T HIGH-SENSITIVITY SERIES (BASELINE, 2HR, 4HR, 6HR) STAT 10/01/2024 11:52 PM MACHINE HAMPER MAKER COMPREHENSIVE METABOLIC PANEL STAT 10/01/2024 11:52 PM MACHINE HAMPER MAKER CBC WITH AUTO DIFFERENTIAL STAT 10/01/2024 11:52 PM MACHINE HAMPER MAKER ECG 12-LEAD Routine 10/01/2024 11:45 PM MACHINE HAMPER MAKER EGFR Routine 09/17/2024 12:20 PM MACHINE HAMPER MAKER Preoperative testing COMPREHENSIVE METABOLIC PANEL Routine 09/17/2024 12:20 PM MACHINE HAMPER MAKER Preoperative testing CBC WITHOUT DIFFERENTIAL Routine 09/17/2024 12:20 PM MACHINE HAMPER MAKER Preoperative testing TYPE AND SCREEN 14 DAY Routine 09/17/2024 12:20 PM MACHINE HAMPER MAKER Preoperative testing LIPID PANEL Timed 07/05/2024 10:45 AM CDT from Last 3 Months or Most Recently Relevant to Health Maintenance Results * POCT glucose (11/11/2024 11:23 AM MACHINE HAMPER MAKER) Glucose, POC 171 70 - 199 mg/dL Blood 11/11/2024 11:2 3 AM MACHINE HAMPER MAKER 11/11/2024 11:23 AM MACHINE HAMPER MAKER Chi Davidson MD LAB POCT ORDERABLES - DEVICE Fi nal Result Performing Organization Address [facility] Co de Phone Number [facility] Department [place] [address] * POCT glucose (11/11/2024 8:06 AM MACHINE HAMPER MAKER) Glucose, POC 112 70 - 199 mg/dL Blood 11/11/2024 8:06 AM MACHINE HAMPER MAKER 11/11/2024 8:06 AM MACHINE HAMPER MAKER Chi Davidson MD LAB POCT ORDERABLES - DEVICE Fi nal Result Performing Organization Address [facility] Co de Phone Number [facility] Department [place] [address] * XR Abdomen Ap 1 Vw (11/11/2024 5:03 AM MACHINE HAMPER MAKER) Anatomical Region Laterality Modality Body, Abdomen N/A Computed Radiogr aphy 11/11/2024 8:22 AM MACHINE HAMPER MAKER Impressions 11/11/2024 8:25 AM MACHINE HAMPER MAKER Normal bowel gas pattern. Contrast seen within the rectum. Cholecystectomy clips. Vascular calcifications. Dictated by: Dwight Daniels MD PHD The radiology attending physician has personally reviewed this study, and had reviewed and/or edited this written report and agrees with it. Electronically signed by: Julissa Joy M.D. Narrative 11/11/2024 8:25 AM MACHINE HAMPER MAKER EXAMINATION: Abdomen, one view. HISTORY: Evaluate dilation [...] by: Julissa Joy M.D. us Analy [employer] IMG XR PROCEDURES Final Re sult * POCT glucose (11/11/2024 4:39 AM MACHINE HAMPER MAKER) Glucose, POC 118 70 - 199 mg/dL Comment:Glu2: RN/MD Notified Glucose comment 1 Glu2: RN/MD Notified [facility] Blood 11/11/2024 4:39 AM MACHINE HAMPER MAKER 11/11/2024 4:39 AM MACHINE HAMPER MAKER us Chi Davidson MD LAB POCT ORDERABLES - DEVICE Fi nal Result [facility] Department of [place] [address] * POCT glucose (11/11/2024 12:14 AM MACHINE HAMPER MAKER) Glucose, POC 122 70 - 199 mg/dL Blood 11/11/2024 12:1 4 AM MACHINE HAMPER MAKER 11/11/2024 12:14 AM MACHINE HAMPER MAKER Chi Davidson MD LAB POCT ORDERABLES - DEVICE Fi nal Result Performing Organization Address [facility] Co de Phone Number [facility] [place] [address] * (ABNORMAL) eGFR (11/10/2024 8:33 PM MACHINE HAMPER MAKER) eGFR 47(L) >=60 mL/min/1. 73 m2 Comment: [...] last reviewed 2021. Blood 11/10/2024 8:33 PM MACHINE HAMPER MAKER 11/10/2024 9:22 PM MACHINE HAMPER MAKER Chi Davidson MD LAB BLOOD ORDERABLES Final Resu lt Performing Organization Address [facility]/ZIP Co de Phone Number [facility] Department [place] [address] * (ABNORMAL) CBC without differential (11/10/2024 8:33 PM MACHINE HAMPER MAKER) WBC 7.6 3.8 - 9.9 K/cumm Hgb 12.2 11.9 - 15.5 g/dL [facility] Hct 35.9 35.6 - 45.5 % [facility] Plt 215 150 - 400 K/cumm [facility] MPV 10.1 9.1 - 12.3 fL [facility] RBC 3.85(L) 3.90 - 5.20 M/cumm [facility] MCV 93.2 81.3 - 96.4 fL [facility] MCH 31.7 27.1 - 33.3 pg [facility] MCHC 34.0 32.3 - 35.7 g/dL [facility] RDW CV 13.1 11.1 - 14.9 % [facility] RDW SD 44.6 35.7 - 48.1 fL [facility] NRBC abs 0.00 0.00 - 0.01 K/cumm [facility] Blood 11/10/2024 8:33 PM MACHINE HAMPER MAKER 11/10/2024 9:23 PM MACHINE HAMPER MAKER Chi Davidson MD LAB BLOOD ORDERABLES Final Resu lt [facility] [place] [address] * Phosphorus (11/10/2024 8:33 PM MACHINE HAMPER MAKER) Phosphorus, pl 3.4 2.3 - 4.5 mg/dL Blood 11/10/2024 8:33 PM MACHINE HAMPER MAKER 11/10/2024 9:22 PM MACHINE HAMPER MAKER Chi Davidson MD LAB BLOOD ORDERABLES Final Resu lt [facility] [place] [address] * Magnesium (11/10/2024 8:33 PM MACHINE HAMPER MAKER) Magnesium 2.1 1.4 - 2.5 mg/dL Blood 11/10/2024 8:33 PM MACHINE HAMPER MAKER 11/10/2024 9:22 PM MACHINE HAMPER MAKER Chi Davidson MD LAB BLOOD ORDERABLES Final Resu lt [facility] Department [place] [address] * (ABNORMAL) Basic metabolic panel (11/10/2024 8:33 PM MACHINE HAMPER MAKER) [facility] Sodium 136 135 - 145 mmol/L Potassium, pl 4.1 3.3 - 4.9 mmol/L [facility] Chloride 99 97 - 110 mmol/L [facility] CO2 26 22 - 32 mmol/L [facility] Anion gap 11 2 - 15 mmol/L [facility] BUN 12 6 - 25 mg/dL [facility] Creatinine 1.16(H) 0.60 - 1.10 mg/dL [facility] Glucose 181 70 - 199 mg/dL [facility] Comment: Interpretive Data Fasting glucose >/= [...] 2022. Calcium 8.6 8.5 - 10.3 mg/dL [facility] Blood 11/10/2024 8:33 PM MACHINE HAMPER MAKER 11/10/2024 9:22 PM MACHINE HAMPER MAKER Chi Davidson MD LAB BLOOD ORDERABLES Final Resu lt Performing Organization Address [facility]/ZIP Co de Phone Number [facility] Department [place] [address] * POCT glucose (11/10/2024 8:18 PM MACHINE HAMPER MAKER) Glucose, POC 169 70 - 199 mg/dL Comment:Glu2: RN/ Notified Glucose comment 1 Glu2: RN/ Notified [facility] Blood 11/10/2024 8:18 PM MACHINE HAMPER MAKER 11/10/2024 8:18 PM MACHINE HAMPER MAKER Chi Davidson MD LAB POCT ORDERABLES - DEVICE Fi nal Result Performing Organization Address City/[facility] Co de Phone Number [facility] [place] [address] * POCT glucose (11/10/2024 5:30 PM MACHINE HAMPER MAKER) Glucose, POC 110 70 - 199 mg/dL Blood 11/10/2024 5:30 PM MACHINE HAMPER MAKER 11/10/2024 5:30 PM MACHINE HAMPER MAKER Chi Davidson MD LAB POCT ORDERABLES - DEVICE Fi nal Result Performing Organization Address [facility] de Phone Number [facility] Department [place] [address] * (ABNORMAL) POCT glucose (11/10/2024 11:43 AM MACHINE HAMPER MAKER) Glucose, POC 221(H) 70 - 199 mg/dL Comment:Glu2: RN/ Notified Glucose comment 1 Glu2: RN/ Notified [facility] Blood 11/10/2024 11:4 3 AM MACHINE HAMPER MAKER 11/10/2024 11:43 AM MACHINE HAMPER MAKER Chi Davidson MD LAB POCT ORDERABLES - DEVICE Fi nal Result Performing Organization Address City/[facility] de Phone Number [facility] [place] [address] * POCT glucose (11/10/2024 7:49 AM MACHINE HAMPER MAKER) Glucose, POC 108 70 - 199 mg/dL Blood 11/10/2024 7:49 AM MACHINE HAMPER MAKER 11/10/2024 7:49 AM MACHINE HAMPER MAKER Christinachuyita Chirag Davidson MD LAB POCT ORDERABLES - DEVICE Fi nal Result [facility] Department [place] [address] * XR Abdomen Ap 1 Vw (11/10/2024 5:56 AM MACHINE HAMPER MAKER) Anatomical Region Laterality Modality Body, Abdomen N/A Digital Radiogra phy 11/10/2024 8:34 AM MACHINE HAMPER MAKER Impressions 11/10/2024 4:06 PM MACHINE HAMPER MAKER Cholecystectomy clips in place. Extensive vascular calcification. Minimal amount of retained contrast in the distal colon. No dilated air-filled small bowel loops to suggest small bowel obstruction. Dictated by: Katty Addison M.D. The radiology attending physician has personally reviewed this study, and had reviewed and/or edited this written report and agrees with it. Electronically signed by: Chi Hickey M.D. Narrative 11/10/2024 4:06 PM MACHINE HAMPER MAKER EXAMINATION: Abdomen, one view. HISTORY: Prior small [...] it. Electronically signed by: Chi Hickey M.D. Analy [employer] IMG XR PROCEDURES Final Re sult * POCT glucose (11/10/2024 4:22 AM MACHINE HAMPER MAKER) [facility] Glucose, POC 119 70 - 199 mg/dL Comment:Glu2: RN/ Notified Glucose comment 1 Glu2: RN/MD Notified [facility] Blood 11/10/2024 4:22 AM MACHINE HAMPER MAKER 11/10/2024 4:22 AM MACHINE HAMPER MAKER Chi Davidson MD LAB POCT ORDERABLES - DEVICE Fi nal Result Performing Organization Address City/[facility]/ZIP Co de Phone Number [facility] [address] * POCT glucose (11/10/2024 12:23 AM MACHINE HAMPER MAKER) [facility] Glucose, POC 110 70 - 199 mg/dL Comment:Glu2: KIKE Notified Glucose comment 1 Glu2: DEMIAN/ Notified [facility] Blood 11/10/2024 12:2 3 AM MACHINE HAMPER MAKER 11/10/2024 12:23 AM MACHINE HAMPER MAKER Chi Davidson MD LAB POCT ORDERABLES - DEVICE Fi nal Result Performing Organization Address City/[facility]/ZIP Co de Phone Number [facility] Department [facility] [address] * (ABNORMAL) eGFR (11/09/2024 10:18 PM MACHINE HAMPER MAKER) [facility] eGFR 53(L) >=60 mL/min/1. 73 m2 Comment: [...] reviewed 2021. Blood 11/09/2024 10:1 8 PM MACHINE HAMPER MAKER 11/09/2024 10:47 PM MACHINE HAMPER MAKER us Chi Davidson MD LAB BLOOD ORDERABLES Final Resu lt [facility] Department [place] [address] * (ABNORMAL) CBC without differential (11/09/2024 10:18 PM MACHINE HAMPER MAKER) WBC 6.8 3.8 - 9.9 K/cumm Hgb 10.3(L) 11.9 - 15.5 g/dL [facility] Hct 29.8(L) 35.6 - 45.5 % [facility] Plt 185 150 - 400 K/cumm [facility] MPV 10.1 9.1 - 12.3 fL [facility] RBC 3.21(L) 3.90 - 5.20 M/cumm [facility] MCV 92.8 81.3 - 96.4 fL [facility] MCH 32.1 27.1 - 33.3 pg [facility] MCHC 34.6 32.3 - 35.7 g/dL [facility] RDW CV 13.0 11.1 - 14.9 % [facility] RDW SD 44.2 35.7 - 48.1 fL [facility] NRBC abs 0.00 0.00 - 0.01 K/cumm [facility] Blood 11/09/2024 10:1 8 PM MACHINE HAMPER MAKER 11/09/2024 10:47 PM MACHINE HAMPER MAKER Chi Davidson MD LAB BLOOD ORDERABLES Final Resu lt Performing Organization Address City/[facility]/ZIP Co de Phone Number [facility] [place] [address] * Phosphorus (11/09/2024 10:18 PM MACHINE HAMPER MAKER) [facility] Phosphorus, pl 3.7 2.3 - 4.5 mg/dL Blood 11/09/2024 10:1 8 PM MACHINE HAMPER MAKER 11/09/2024 10:47 PM MACHINE HAMPER MAKER Chi Davidson MD LAB BLOOD ORDERABLES Final Resu lt Performing Organization Address [facility] Co de Phone Number [facility] [place] [address] * Magnesium (11/09/2024 10:18 PM MACHINE HAMPER MAKER) [facility] Magnesium 1.5 1.4 - 2.5 mg/dL Blood 11/09/2024 10:1 8 PM MACHINE HAMPER MAKER 11/09/2024 10:47 PM MACHINE HAMPER MAKER Chi Davidson MD LAB BLOOD ORDERABLES Final Resu lt Performing Organization Address [facility] Co de Phone Number [facility] [place] [address] * (ABNORMAL) Basic metabolic panel (11/09/2024 10:18 PM MACHINE HAMPER MAKER) [facility] Sodium 137 135 - 145 mmol/L Potassium, pl 4.0 3.3 - 4.9 mmol/L [facility] Chloride 102 97 - 110 mmol/L [facility] CO2 28 22 - 32 mmol/L [facility] Anion gap 7 2 - 15 mmol/L [facility] BUN 9 6 - 25 mg/dL [facility] Creatinine 1.06 0.60 - 1.10 mg/dL [facility] Glucose 122 70 - 199 mg/dL [facility] Comment: Interpretive Data Fasting glucose >/= [...] 2022. Calcium 8.0(L) 8.5 - 10.3 mg/dL [facility] Blood 11/09/2024 10:1 8 PM MACHINE HAMPER MAKER 11/09/2024 10:47 PM MACHINE HAMPER MAKER Chi Davidson MD LAB BLOOD ORDERABLES Final Resu lt Performing Organization Address [facility] Co de Phone Number [facility] Department [place] [address] * POCT glucose (11/09/2024 8:27 PM MACHINE HAMPER MAKER) Glucose, POC 163 70 - 199 mg/dL Comment:Glu2: RN/MD Notified Glucose comment 1 Glu2: RN/MD Notified [facility] Blood 11/09/2024 8:27 PM MACHINE HAMPER MAKER 11/09/2024 8:27 PM MACHINE HAMPER MAKER Chi Davidson MD LAB POCT ORDERABLES - DEVICE Fi nal Result Performing Organization Address City/[facility]/ZIP Co de Phone Number [facility] [place] [address] * POCT glucose (11/09/2024 5:23 PM MACHINE HAMPER MAKER) Glucose, POC 94 70 - 199 mg/dL Blood 11/09/2024 5:23 PM MACHINE HAMPER MAKER 11/09/2024 5:23 PM MACHINE HAMPER MAKER Chi Davidson MD LAB POCT ORDERABLES - DEVICE Fi nal Result Performing Organization Address [facility] [place] [address] * POCT glucose (11/09/2024 11:59 AM MACHINE HAMPER MAKER) Glucose, POC 117 70 - 199 mg/dL Blood 11/09/2024 11:5 9 AM MACHINE HAMPER MAKER 11/09/2024 11:59 AM MACHINE HAMPER MAKER Chi Davidson MD LAB POCT ORDERABLES - DEVICE Fi nal Result Performing Organization Address [facility] Phone Number [facility] [place] [address] * POCT glucose (11/09/2024 8:43 AM MACHINE HAMPER MAKER) Glucose, POC 94 70 - 199 mg/dL Blood 11/09/2024 8:43 AM MACHINE HAMPER MAKER 11/09/2024 8:43 AM MACHINE HAMPER MAKER Chi Davidson MD LAB POCT ORDERABLES - DEVICE Fi nal Result Performing Organization Address [facility] [place] [address] * XR Abdomen Ap 1 Vw (11/09/2024 6:03 AM MACHINE HAMPER MAKER) Anatomical Region Laterality Modality Body, Abdomen N/A Digital Radiogra phy 11/09/2024 9:40 AM MACHINE HAMPER MAKER Impressions 11/09/2024 3:28 PM MACHINE HAMPER MAKER Cholecystectomy clips in place. Minimal hyperdense contrast material inside the colon. Normal bowel gas pattern. Dictated by: Katty Addison M.D. The radiology attending physician has personally reviewed this study, and had reviewed and/or edited this written report and agrees with it. Electronically signed by: Chi Hickey M.D. Narrative 11/09/2024 3:28 PM MACHINE HAMPER MAKER EXAMINATION: Abdomen, one view. HISTORY: Dilation. COMPARISON: [...] it. Electronically signed by: Chi Hickey M.D. Analy [employer] IMG XR PROCEDURES Final Re sult * POCT glucose (11/09/2024 4:25 AM MACHINE HAMPER MAKER) Glucose, POC 107 70 - 199 mg/dL Blood 11/09/2024 4:25 AM MACHINE HAMPER MAKER 11/09/2024 4:25 AM MACHINE HAMPER MAKER Chi Davidson MD LAB POCT ORDERABLES - DEVICE Fi nal Result Performing Organization Address [facility] Co de Phone Number [facility] [place] [address] * POCT glucose (11/09/2024 12:13 AM MACHINE HAMPER MAKER) Glucose, POC 111 70 - 199 mg/dL Blood 11/09/2024 12:1 3 AM MACHINE HAMPER MAKER 11/09/2024 12:13 AM MACHINE HAMPER MAKER Chi Davidson MD LAB POCT ORDERABLES - DEVICE Fi nal Result Performing Organization Address [facility] Co de Phone Number [facility] Department [place] [facility] [address] * eGFR (11/08/2024 9:05 PM MACHINE HAMPER MAKER) Pathologist [facility] eGFR 68 >=60 mL/min/1. 73 m2 Comment: [...] last reviewed 2021. Blood 11/08/2024 9:05 PM MACHINE HAMPER MAKER 11/08/2024 10:14 PM MACHINE HAMPER MAKER Chi Davidson MD LAB BLOOD ORDERABLES Final Resu lt [facility] Department [place] [address] * (ABNORMAL) CBC without differential (11/08/2024 9:05 PM MACHINE HAMPER MAKER) [facility] WBC 7.9 3.8 - 9.9 K/cumm Hgb 11.7(L) 11.9 - 15.5 g/dL [facility] Hct 34.5(L) 35.6 - 45.5 % [facility] Plt 240 150 - 400 K/cumm [facility] MPV 10.3 9.1 - 12.3 fL [facility] RBC 3.71(L) 3.90 - 5.20 M/cumm [facility] MCV 93.0 81.3 - 96.4 fL [facility] MCH 31.5 27.1 - 33.3 pg [facility] MCHC 33.9 32.3 - 35.7 g/dL [facility] RDW CV 13.2 11.1 - 14.9 % [facility] RDW SD 44.9 35.7 - 48.1 fL [facility] NRBC abs 0.00 0.00 - 0.01 K/cumm [facility] Blood 11/08/2024 9:05 PM MACHINE HAMPER MAKER 11/08/2024 10:15 PM MACHINE HAMPER MAKER Chi Davidson MD LAB BLOOD ORDERABLES Final Resu lt Performing Organization Address City/[facility]/ZIP Co de Phone Number [facility] [place] [address] * Phosphorus (11/08/2024 9:05 PM MACHINE HAMPER MAKER) Phosphorus, pl 4.2 2.3 - 4.5 mg/dL Blood 11/08/2024 9:05 PM MACHINE HAMPER MAKER 11/08/2024 10:14 PM MACHINE HAMPER MAKER Chi Davidson MD LAB BLOOD ORDERABLES Final Resu lt Performing Organization Address City/[facility]/ZIP Co de Phone Number [facility] Department [place] [address] * Magnesium (11/08/2024 9:05 PM MACHINE HAMPER MAKER) Magnesium 1.8 1.4 - 2.5 mg/dL Blood 11/08/2024 9:05 PM MACHINE HAMPER MAKER 11/08/2024 10:14 PM MACHINE HAMPER MAKER Chi Davidson MD LAB BLOOD ORDERABLES Final Resu lt [facility] [place] [address] * Basic metabolic panel (11/08/2024 9:05 PM MACHINE HAMPER MAKER) Sodium 140 135 - 145 mmol/L Potassium, pl 4.3 3.3 - 4.9 mmol/L [facility] Chloride 104 97 - 110 mmol/L [facility] CO2 28 22 - 32 mmol/L [facility] Anion gap 8 2 - 15 mmol/L [facility] BUN 9 6 - 25 mg/dL [facility] Creatinine 0.86 0.60 - 1.10 mg/dL [facility] Glucose 125 70 - 199 mg/dL [facility] Comment: Interpretive Data Fasting glucose >/= [...] 2022. Calcium 8.5 8.5 - 10.3 mg/dL [facility] Blood 11/08/2024 9:05 PM MACHINE HAMPER MAKER 11/08/2024 10:14 PM MACHINE HAMPER MAKER Chi Davidson MD LAB BLOOD ORDERABLES Final Resu lt Performing Organization Address City/[facility]/ZIP Co de Phone Number [facility] Department [facility] [place] [address] * POCT glucose (11/08/2024 8:09 PM MACHINE HAMPER MAKER) Glucose, POC 99 70 - 199 mg/dL Blood 11/08/2024 8:09 PM MACHINE HAMPER MAKER 11/08/2024 8:09 PM MACHINE HAMPER MAKER Chi Davidson MD LAB POCT ORDERABLES - DEVICE Fi nal Result Performing Organization Address City/[facility]/ZIP Co de Phone Number [facility] Department [place] [address] * POCT glucose (11/08/2024 5:46 PM MACHINE HAMPER MAKER) Glucose, POC 97 70 - 199 mg/dL Blood 11/08/2024 5:46 PM MACHINE HAMPER MAKER 11/08/2024 5:46 PM MACHINE HAMPER MAKER Chi Davidson MD LAB POCT ORDERABLES - DEVICE Fi nal Result Performing Organization Address [facility] [place] [address] * POCT glucose (11/08/2024 12:18 PM MACHINE HAMPER MAKER) Glucose, POC 108 70 - 199 mg/dL Blood 11/08/2024 12:1 8 PM MACHINE HAMPER MAKER 11/08/2024 12:18 PM MACHINE HAMPER MAKER Chi Davidson MD LAB POCT ORDERABLES - DEVICE Fi nal Result Performing Organization Address City/[facility] [place] [address] * ECG 12 lead (11/08/2024 10:21 AM MACHINE HAMPER MAKER) [facility] Ventricular Rate EKG/Min [address] [facility] Atrial Rate [address] [facility] [place]-Interval (MSEC) [address] [facility] QRS-Interval (MSEC) [address] [facility] QT-Interval (MSEC) [address] [facility] QTc [address] [facility] P Ronceverte [address] [facility] R Ronce[place] -[address] [facility] T [place] [address] [facility] Diagnosis Sinus bradycardia Left axis deviation Moderate voltage criteria for LVH, may be normal variant ( R in aVL , [place] product ) Abnormal ECG When compared with ECG of 28-MAR-2018 15:14, T wave inversion more evident in Inferior leads Confirmed by INOCENCIO CRUZ M.D ([id number]) on 11/08/2024 12:13:52 PM [facility] 11/08/2024 10:2 1 AM MACHINE HAMPER MAKER 11/08/2024 12:13 PM MACHINE HAMPER MAKER us Analy [employer] ECG ORDERABLES Final Resu lt [facility] * POCT glucose (11/08/2024 7:33 AM MACHINE HAMPER MAKER) Glucose, POC 133 70 - 199 mg/dL Blood 11/08/2024 7:33 AM MACHINE HAMPER MAKER 11/08/2024 7:33 AM MACHINE HAMPER MAKER us Chi Davidson MD LAB POCT ORDERABLES - DEVICE Fi nal Result Performing Organization Address City/[facility]/ZIP Co de Phone Number [facility] Department [place] [address] * XR Abdomen Ap 1 Vw (11/08/2024 5:32 AM MACHINE HAMPER MAKER) Anatomical Region Laterality Modality Body, Abdomen N/A Computed Radiogr aphy 11/08/2024 9:12 AM MACHINE HAMPER MAKER Impressions 11/08/2024 9:13 AM MACHINE HAMPER MAKER 11/07/2024 at 12:00 PM: 24 hours after [...] Julissa Joy M.D. Narrative 11/08/2024 9:13 AM MACHINE HAMPER MAKER EXAMINATION: Abdomen, one view. HISTORY: Abdominal distension. [...] signed by: Julissa Joy M.D. Analy [employer] IMG XR PROCEDURES Final Re sult * POCT glucose (11/08/2024 4:17 AM MACHINE HAMPER MAKER) Glucose, POC 117 70 - 199 mg/dL Blood 11/08/2024 4:17 AM MACHINE HAMPER MAKER 11/08/2024 4:17 AM MACHINE HAMPER MAKER Chi Davidson MD LAB POCT ORDERABLES - DEVICE Fi nal Result Performing Organization Address [facility]/ZIP Co de Phone Number [facility] [place] [address] * POCT glucose (11/07/2024 11:50 PM MACHINE HAMPER MAKER) Glucose, POC 104 70 - 199 mg/dL Blood 11/07/2024 11:5 0 PM MACHINE HAMPER MAKER 11/07/2024 11:50 PM MACHINE HAMPER MAKER Chi Davidson MD LAB POCT ORDERABLES - DEVICE Fi nal Result [facility] [place] [address] * POCT glucose (11/07/2024 8:33 PM MACHINE HAMPER MAKER) Glucose, POC 156 70 - 199 mg/dL Blood 11/07/2024 8:33 PM MACHINE HAMPER MAKER 11/07/2024 8:33 PM MACHINE HAMPER MAKER Chi Davidson MD LAB POCT ORDERABLES - DEVICE Fi nal Result Performing Organization Address City/[facility] Co de Phone Number [facility] Department [place] [address] * eGFR (11/07/2024 7:46 PM MACHINE HAMPER MAKER) eGFR 62 >=60 mL/min/1. 73 m2 Comment: [...] last reviewed 2021. Blood 11/07/2024 7:46 PM MACHINE HAMPER MAKER 11/07/2024 8:45 PM MACHINE HAMPER MAKER Chi Davidson MD LAB BLOOD ORDERABLES Final Resu lt Performing Organization Address City/[facility]/ZIP Co de Phone Number [facility] Department [place] [address] * (ABNORMAL) CBC without differential (11/07/2024 7:46 PM MACHINE HAMPER MAKER) Pathologist [facility] WBC 10.1(H) 3.8 - 9.9 K/cumm Hgb 11.8(L) 11.9 - 15.5 g/dL [facility] Hct 34.6(L) 35.6 - 45.5 % [facility] Plt 257 150 - 400 K/cumm [facility] MPV 10.5 9.1 - 12.3 fL [facility] RBC 3.69(L) 3.90 - 5.20 M/cumm [facility] MCV 93.8 81.3 - 96.4 fL [facility] MCH 32.0 27.1 - 33.3 pg [facility] MCHC 34.1 32.3 - 35.7 g/dL [facility] RDW CV 13.3 11.1 - 14.9 % [facility] RDW SD 45.4 35.7 - 48.1 fL [facility] NRBC abs 0.00 0.00 - 0.01 K/cumm [facility] Blood 11/07/2024 7:46 PM [employer] 11/07/2024 8:47 PM [employer] Chi Davidson MD LAB BLOOD ORDERABLES Final Resu lt [facility] Department [place] [address] * (ABNORMAL) Phosphorus (11/07/2024 7:46 PM [employer]ACH[employer]) Pathologist [facility] Phosphorus, pl 2.2(L) 2.3 - 4.5 mg/dL Blood 11/07/2024 7:46 PM [employer] 11/07/2024 8:45 PM [employer] Chi Davidson MD LAB BLOOD ORDERABLES Final Resu lt [facility] Department of [place] [address] * Magnesium (11/07/2024 7:46 PM MACHINE HAMPER MAKER) Pathologist [facility] Magnesium 1.9 1.4 - 2.5 mg/dL Blood 11/07/2024 7:46 PM MACHINE HAMPER MAKER 11/07/2024 8:45 PM MACHINE HAMPER MAKER Chi Davidson MD LAB BLOOD ORDERABLES Final Resu lt Performing Organization Address City/[facility]/ZIP Co de Phone Number [facility] Department [place] [address] * Basic metabolic panel (11/07/2024 7:46 PM MACHINE HAMPER MAKER) Sodium 138 135 - 145 mmol/L Potassium, pl 3.8 3.3 - 4.9 mmol/L [facility] Chloride 104 97 - 110 mmol/L [facility] CO2 26 22 - 32 mmol/L [facility] Anion gap 8 2 - 15 mmol/L [facility] BUN 15 6 - 25 mg/dL [facility] Creatinine 0.93 0.60 - 1.10 mg/dL [facility] Glucose 199 70 - 199 mg/dL [facility] Comment: Interpretive Data Fasting glucose >/= [...] 2022. Calcium 8.6 8.5 - 10.3 mg/dL [facility] Blood 11/07/2024 7:46 PM MACHINE HAMPER MAKER 11/07/2024 8:45 PM MACHINE HAMPER MAKER Chi Davidson MD LAB BLOOD ORDERABLES Final Resu lt Performing Organization Address City/[facility]/ZIP Co de Phone Number [facility] Department [place] [address] * POCT glucose (11/07/2024 4:20 PM MACHINE HAMPER MAKER) Glucose, POC 138 70 - 199 mg/dL Blood 11/07/2024 4:20 PM MACHINE HAMPER MAKER 11/07/2024 4:20 PM MACHINE HAMPER MAKER Christinachuyita Chirag Davidson MD LAB POCT ORDERABLES - DEVICE Fi nal Result [facility] Department [place] [address] * Small Bowel Challenge 24 hour Post Injection XR Abdomen Ap 1 Vw (11/07/2024 12:00 PM MACHINE HAMPER MAKER) Anatomical Region Laterality Modality Body, Abdomen N/A Computed Radiogr aphy 11/08/2024 9:12 AM MACHINE HAMPER MAKER Impressions 11/08/2024 9:13 AM MACHINE HAMPER MAKER 11/07/2024 at 12:00 PM: 24 hours after [...] Julissa Joy M.D. Narrative 11/08/2024 9:13 AM MACHINE HAMPER MAKER EXAMINATION: Abdomen, one view. HISTORY: Abdominal distension. [...] by: Julissa Joy M.D. us Analy [employer] IMG XR PROCEDURES Final Re sult * POCT glucose (11/07/2024 11:46 AM MACHINE HAMPER MAKER) Glucose, POC 154 70 - 199 mg/dL Blood 11/07/2024 11:4 6 AM MACHINE HAMPER MAKER 11/07/2024 11:46 AM MACHINE HAMPER MAKER Chi Davidson MD LAB POCT ORDERABLES - DEVICE Fi nal Result [facility] Department [place] [address] * (ABNORMAL) Urinalysis reflex to microscopic and culture Urine, in and out catheter (11/07/2024 9:43AM MACHINE HAMPER MAKER) Color, ur Yellow Yellow Clarity, ur Clear Clear [facility] Specific gravity, ur 1.020 1.003 - 1.030 [facility] pH, urine 6.0 [facility] Comment: Interpretive Data U rine pH is affected by diet, medications, systemic acid-base disturbances, and renal tubular function. pH may affect urinary stone formation. For example, urine pH below 6.0 may help reduce the tendency for calcium phosphate stones and pH greater than 6.0 may reduce the tendency for uric acid stone formation. Source: [facility] Current Interpretive Data was last revised on 2017 Protein, ur ql Trace Negative [facility] Glucose, ur ql Negative Negative [facility] Ketones, ur 1+(A) Negative [facility] Bilirubin, ur Negative Negative [facility] Blood, ur Negative Negative [facility] Urobilinogen, ur <2.0 <2.0 mg/dL [facility] Nitrite, ur Negative Negative [facility] Leukocyte esterase, ur Negative Negative [facility] UA reflex comment Reflex conditions for microscopic UA and culture not met. [facility] Urine, in and out catheter 11/07/2024 9:43 AM MACHINE HAMPER MAKER 11/07/2024 10:21 AM MACHINE HAMPER MAKER Chi Davidson MD LAB MICROBIOLOGY - GENERAL ORDE RABKAILASH Final Result [facility] Department [place] [address] * POCT glucose (11/07/2024 8:03 AM MACHINE HAMPER MAKER) Glucose, POC 107 70 - 199 mg/dL Blood 11/07/2024 8:03 AM MACHINE HAMPER MAKER 11/07/2024 8:03 AM MACHINE HAMPER MAKER Chi Davidson MD LAB POCT ORDERABLES - DEVICE Fi nal Result Performing Organization Address [facility] Co de Phone Number [facility] Department [place] [address] * XR Abdomen Ap 1 Vw (11/07/2024 5:24 AM MACHINE HAMPER MAKER) Anatomical Region Laterality Modality Body, Abdomen N/A Computed Radiogr aphy 11/07/2024 8:24 AM MACHINE HAMPER MAKER Impressions 11/07/2024 8:24 AM MACHINE HAMPER MAKER Radiograph 11/06/2024 at 4:03 PM: Gastric tube [...] Boyd Sanders M.D. Narrative 11/07/2024 8:24 AM MACHINE HAMPER MAKER EXAMINATION: XR ABDOMEN AP 1 VIEW x3 [...] signed by: Boyd Sanders M.D. Analy [employer] IMG XR PROCEDURES Final Re sult * POCT glucose (11/07/2024 5:11 AM MACHINE HAMPER MAKER) Glucose, POC 117 70 - 199 mg/dL Blood 11/07/2024 5:11 AM MACHINE HAMPER MAKER 11/07/2024 5:11 AM MACHINE HAMPER MAKER Chi Davidson MD LAB POCT ORDERABLES - DEVICE Fi nal Result Performing Organization Address [facility] Co de Phone Number [facility] Department [place] [address] * POCT glucose (11/07/2024 12:17 AM MACHINE HAMPER MAKER) Glucose, POC 104 70 - 199 mg/dL Blood 11/07/2024 12:1 7 AM MACHINE HAMPER MAKER 11/07/2024 12:17 AM MACHINE HAMPER MAKER Chi Davidson MD LAB POCT ORDERABLES - DEVICE Fi nal Result Performing Organization Address [facility] Co de Phone Number [facility] Department [place] [address] * Small Bowel Challenge 10 hour Post Injection XR Abdomen Ap 1 Vw (11/06/2024 9:52 PM MACHINE HAMPER MAKER) Anatomical Region Laterality Modality Body, Abdomen N/A Computed Radiogr aphy 11/07/2024 8:24 AM MACHINE HAMPER MAKER Impressions 11/07/2024 8:24 AM MACHINE HAMPER MAKER Radiograph 11/06/2024 at 4:03 PM: Gastric tube [...] Boyd Sanders M.D. Narrative 11/07/2024 8:24 AM MACHINE HAMPER MAKER EXAMINATION: XR ABDOMEN AP 1 VIEW x3 [...] by: Boyd Sanders M.D. us Analy [employer] IMG XR PROCEDURES Final Re sult * (ABNORMAL) eGFR (11/06/2024 9:34 PM MACHINE HAMPER MAKER) Pathologist [facility] eGFR 49(L) >=60 mL/min/1. 73 m2 Comment: [...] last reviewed 2021. Blood 11/06/2024 9:34 PM MACHINE HAMPER MAKER 11/06/2024 10:08 PM MACHINE HAMPER MAKER us Chi Davidson MD LAB BLOOD ORDERABLES Final Resu lt [facility] Department [place] [address] * (ABNORMAL) CBC without differential (11/06/2024 9:34 PM MACHINE HAMPER MAKER) Pathologist [facility] WBC 10.6(H) 3.8 - 9.9 K/cumm Hgb 12.2 11.9 - 15.5 g/dL [facility] Hct 36.0 35.6 - 45.5 % [facility] Plt 265 150 - 400 K/cumm [facility] MPV 10.1 9.1 - 12.3 fL [facility] RBC 3.93 3.90 - 5.20 M/cumm [facility] MCV 91.6 81.3 - 96.4 fL [facility] MCH 31.0 27.1 - 33.3 pg [facility] MCHC 33.9 32.3 - 35.7 g/dL [facility] RDW CV 13.1 11.1 - 14.9 % [facility] RDW SD 43.4 35.7 - 48.1 fL [facility] NRBC abs 0.00 0.00 - 0.01 K/cumm [facility] Blood 11/06/2024 9:34 PM MACHINE HAMPER MAKER 11/06/2024 10:09 PM MACHINE HAMPER MAKER us Chi Davidson MD LAB BLOOD ORDERABLES Final Resu lt Performing Organization Address City/[facility]/ZIP Co de Phone Number [facility] Department [place] [address] * (ABNORMAL) Prealbumin (11/06/2024 9:34 PM MACHINE HAMPER MAKER) Prealbumin 17.0(L) 20.0 - 40.0 mg/dL Blood 11/06/2024 9:34 PM MACHINE HAMPER MAKER 11/06/2024 10:08 PM MACHINE HAMPER MAKER us Analy [employer] NP LAB BLOOD ORDERABLES Final Result [facility] [place] [address] * Phosphorus (11/06/2024 9:34 PM MACHINE HAMPER MAKER) Phosphorus, pl 3.5 2.3 - 4.5 mg/dL Blood 11/06/2024 9:34 PM MACHINE HAMPER MAKER 11/06/2024 10:08 PM MACHINE HAMPER MAKER us Chi Davidson MD LAB BLOOD ORDERABLES Final Resu lt [facility] [address] * Magnesium (11/06/2024 9:34 PM MACHINE HAMPER MAKER) Magnesium 2.1 1.4 - 2.5 mg/dL Blood 11/06/2024 9:34 PM MACHINE HAMPER MAKER 11/06/2024 10:08 PM MACHINE HAMPER MAKER Chi Davidson MD LAB BLOOD ORDERABLES Final Resu lt Performing Organization Address [facility] Co de Phone Number [facility] [address] * Hemoglobin A1c (11/06/2024 9:34 PM MACHINE HAMPER MAKER) Hgb A1C 5.5 4.0 - 5.6 % Estimated Average Glucose 111 mg/dL [facility] Comment: The ADA recommends reporting an estimated Average Glucose (eAG) with all Hemoglobin A1c results using the equation derived from a study of 507 normal and diabetic adults. Minority populations were underrepresented and children were not included. (Diabetes Care 2020; 43(S1): S66-S76). The eAG is not equivalent to a fasting glucose. Blood 11/06/2024 9:34 PM MACHINE HAMPER MAKER 11/06/2024 10:09 PM MACHINE HAMPER MAKER us Analy [employer] NP LAB BLOOD ORDERABLES Final Result Performing Organization Address City/[facility]/ZIP Co de Phone Number [facility] [address] * Albumin (11/06/2024 9:34 PM MACHINE HAMPER MAKER) Albumin 3.7 3.5 - 5.0 g/dL Blood 11/06/2024 9:34 PM MACHINE HAMPER MAKER 11/06/2024 10:08 PM MACHINE HAMPER MAKER us Analy [employer] LAB BLOOD ORDERABLES Final Result [facility] Department [place] [address] * (ABNORMAL) Basic metabolic panel (11/06/2024 9:34 PM MACHINE HAMPER MAKER) Sodium 138 135 - 145 mmol/L Potassium, pl 3.7 3.3 - 4.9 mmol/L [facility] Chloride 99 97 - 110 mmol/L [facility] CO2 28 22 - 32 mmol/L [facility] Anion gap 11 2 - 15 mmol/L [facility] BUN 17 6 - 25 mg/dL [facility] Creatinine 1.13(H) 0.60 - 1.10 mg/dL [facility] Glucose 121 70 - 199 mg/dL [facility] Comment: Interpretive Data Fasting glucose >/= [...] 2022. Calcium 8.8 8.5 - 10.3 mg/dL [facility] Blood 11/06/2024 9:34 PM MACHINE HAMPER MAKER 11/06/2024 10:08 PM MACHINE HAMPER MAKER us Chi Davidson MD LAB BLOOD ORDERABLES Final Resu lt [facility] Department [place] [address] * POCT glucose (11/06/2024 8:08 PM MACHINE HAMPER MAKER) Glucose, POC 141 70 - 199 mg/dL Blood 11/06/2024 8:08 PM MACHINE HAMPER MAKER 11/06/2024 8:08 PM MACHINE HAMPER MAKER Chi Chirag Davidson MD LAB POCT ORDERABLES - DEVICE Fi nal Result [facility] Department [place] [address] * Small Bowel Challenge 4 hour Post Injection XR Abdomen Ap 1 Vw (11/06/2024 4:15 PM MACHINE HAMPER MAKER) Anatomical Region Laterality Modality Body, Abdomen N/A Computed Radiogr aphy 11/07/2024 8:24 AM MACHINE HAMPER MAKER Impressions 11/07/2024 8:24 AM MACHINE HAMPER MAKER Radiograph 11/06/2024 at 4:03 PM: Gastric tube [...] Boyd Sanders M.D. Narrative 11/07/2024 8:24 AM MACHINE HAMPER MAKER EXAMINATION: XR ABDOMEN AP 1 VIEW x3 [...] signed by: Boyd Sanders M.D. Analy [employer] IMG XR PROCEDURES Final Re sult * POCT glucose (11/06/2024 4:00 PM MACHINE HAMPER MAKER) Glucose, POC 136 70 - 199 mg/dL Blood 11/06/2024 4:00 PM MACHINE HAMPER MAKER 11/06/2024 4:00 PM MACHINE HAMPER MAKER Chi Davidson MD LAB POCT ORDERABLES - DEVICE Fi nal Result Performing Organization Address City/[facility] Co de Phone Number [facility] Department [place] [address] * POCT glucose (11/06/2024 12:00 PM MACHINE HAMPER MAKER) Glucose, POC 162 70 - 199 mg/dL Blood 11/06/2024 12:0 0 PM MACHINE HAMPER MAKER 11/06/2024 12:00 PM MACHINE HAMPER MAKER Chi Davidson MD LAB POCT ORDERABLES - DEVICE Fi nal Result Performing Organization Address City/[facility] Co de Phone Number [facility] Department [place] [address] * XR Abdomen Ap 1 Vw (11/06/2024 6:54 AM MACHINE HAMPER MAKER) Anatomical Region Laterality Modality Body, Abdomen N/A Digital Radiogra phy 11/06/2024 1:01 PM MACHINE HAMPER MAKER Impressions 11/06/2024 1:40 PM MACHINE HAMPER MAKER Gastric tube in place in unchanged position [...] Delbert Tello M.D. Narrative 11/06/2024 1:40 PM MACHINE HAMPER MAKER EXAMINATION: Abdomen, one view. HISTORY: Abdominal dilation. [...] it. Electronically signed by: Delbert Tello M.D. Analy [employer] IMG XR PROCEDURES Final Re sult * Lactate (11/05/2024 10:27 PM MACHINE HAMPER MAKER) Lactate 0.8 0.7 - 2.0 mmol/L Blood 11/05/2024 10:2 7 PM MACHINE HAMPER MAKER 11/05/2024 10:44 PM MACHINE HAMPER MAKER us Chi Davidson MD LAB BLOOD ORDERABLES Final Resu lt [facility] Department [place] [address] * eGFR (11/05/2024 10:27 PM MACHINE HAMPER MAKER) [facility] eGFR 62 >=60 mL/min/1. 73 m2 Comment: [...] reviewed 2021. Blood 11/05/2024 10:2 7 PM MACHINE HAMPER MAKER 11/05/2024 10:45 PM MACHINE HAMPER MAKER us Chi Davidson MD LAB BLOOD ORDERABLES Final Resu lt [facility] Department [place] [address] * (ABNORMAL) CBC without differential (11/05/2024 10:27 PM MACHINE HAMPER MAKER) [facility] WBC 11.7(H) 3.8 - 9.9 K/cumm Hgb 12.6 11.9 - 15.5 g/dL [facility] Hct 35.8 35.6 - 45.5 % [facility] Plt 250 150 - 400 K/cumm [facility] MPV 10.3 9.1 - 12.3 fL [facility] RBC 3.98 3.90 - 5.20 M/cumm [facility] MCV 89.9 81.3 - 96.4 fL [facility] MCH 31.7 27.1 - 33.3 pg [facility] MCHC 35.2 32.3 - 35.7 g/dL [facility] RDW CV 12.9 11.1 - 14.9 % [facility] RDW SD 42.5 35.7 - 48.1 fL [facility] NRBC abs 0.00 0.00 - 0.01 K/cumm [facility] Blood 11/05/2024 10:2 7 PM MACHINE HAMPER MAKER 11/05/2024 10:45 PM MACHINE HAMPER MAKER Cih Davidson MD LAB BLOOD ORDERABLES Final Resu lt Performing Organization Address City/[facility] [place] [address] * Phosphorus (11/05/2024 10:27 PM MACHINE HAMPER MAKER) Phosphorus, pl 4.1 2.3 - 4.5 mg/dL Blood 11/05/2024 10:2 7 PM MACHINE HAMPER MAKER 11/05/2024 10:45 PM MACHINE HAMPER MAKER Chi Davidson MD LAB BLOOD ORDERABLES Final Resu lt Performing Organization Address City/[facility] Co de Phone Number [facility] Department [place] [facility] [address] * Magnesium (11/05/2024 10:27 PM MACHINE HAMPER MAKER) Magnesium 1.6 1.4 - 2.5 mg/dL Blood 11/05/2024 10:2 7 PM MACHINE HAMPER MAKER 11/05/2024 10:45 PM MACHINE HAMPER MAKER Chi Davidson MD LAB BLOOD ORDERABLES Final Resu lt Performing Organization Address City/[facility] Co de Phone Number [facility] [place] [address] * (ABNORMAL) Basic metabolic panel (11/05/2024 10:27 PM MACHINE HAMPER MAKER) Sodium 134(L) 135 - 145 mmol/L Potassium, pl 3.9 3.3 - 4.9 mmol/L [facility] Chloride 94(L) 97 - 110 mmol/L [facility] CO2 28 22 - 32 mmol/L [facility] Anion gap 12 2 - 15 mmol/L [facility] BUN 14 6 - 25 mg/dL [facility] Creatinine 0.93 0.60 - 1.10 mg/dL [facility] Glucose 111 70 - 199 mg/dL [facility] Comment: Interpretive Data Fasting glucose >/= [...] 2022. Calcium 8.7 8.5 - 10.3 mg/dL [facility] Blood 11/05/2024 10:2 7 PM MACHINE HAMPER MAKER 11/05/2024 10:45 PM MACHINE HAMPER MAKER Chi Davidson MD LAB BLOOD ORDERABLES Final Resu lt [facility] Department [place] [address] * aPTT (11/05/2024 11:51 AM MACHINE HAMPER MAKER) aPTT 33 28 - 38 sec Comment: Interpretive Data Heparin therapeutic range: 66.0 - 100.0 seconds. Range based on correlation with therapeutic heparin activity range of 0.3 - 0.7 Units/mL. Current interpretive data was last revised on 2023. Blood 11/05/2024 11:5 1 AM MACHINE HAMPER MAKER 11/05/2024 11:59 AM MACHINE HAMPER MAKER us Galindo Mazariegos MD LAB BLOOD ORDERABLES F inal Result Performing Organization Address [facility] Co de Phone Number [facility] [address] * Protime-INR (11/05/2024 11:51 AM MACHINE HAMPER MAKER) PT 13.0 9.7 - 13.0 sec INR 1.20 0.90 - 1.20 [facility] Comment: Interpretive data Oral anticoagulant therapeutic ranges: Venous thromboembolism prophylaxis or treatment: 2.0-3.0 CARDIOLOGY Standard range: 2.0-3.0 High-intensity range: 2.5-3.5 Refer to indication-specific guidelines for appropriate target ranges for prosthetic heart valve replacement. Current interpretive data was last revised on 2019. Blood 11/05/2024 11:5 1 AM MACHINE HAMPER MAKER 11/05/2024 11:59 AM MACHINE HAMPER MAKER Galindo Mazariegos MD LAB BLOOD ORDERABLES F inal Result Performing Organization Address [facility] de Phone Number [facility] [address] * Type and screen (11/05/2024 11:51 AM MACHINE HAMPER MAKER) Caitie, indirect Negative ABO Rh O Positive [facility] Blood 11/05/2024 11:5 1 AM MACHINE HAMPER MAKER 11/05/2024 12:05 PM MACHINE HAMPER MAKER Narrative [facility] - 11/05/2024 12:55 PM MACHINE HAMPER MAKER Has the patient had Daratumumab or Isatuximab in the past 6 months?->Unknown Galindo Mazariegos MD LAB BLOOD BANK TEST OR DERABLES Final Result Performing Organization Address [facility] Co de Phone Number [facility] [address] * XR Abdomen Ap 1 Vw (11/05/2024 11:26 AM MACHINE HAMPER MAKER) Anatomical Region Laterality Modality Body, Abdomen N/A Computed Radiogr aphy 11/05/2024 12:0 4 PM MACHINE HAMPER MAKER Impressions 11/05/2024 12:04 PM MACHINE HAMPER MAKER Small bowel obstruction was better seen on prior CT. Gastric tube with side-port inferior to the diaphragm, likely within the stomach. Electronically signed by: Blair Barnett M.D. Narrative 11/05/2024 12:04 PM MACHINE HAMPER MAKER EXAMINATION: Abdomen, one view. HISTORY: Gastric tube [...] * XR Outside Reference (11/05/2024 11:15 AM MACHINE HAMPER MAKER) Impressions [facility] - 11/05/2024 11:15 AM MACHINE HAMPER MAKER These images are for Reference purposes only and have not been reviewed by [facility] Radiology. There will be no report generated by a [facility] Radiologist. Narrative [facility] - 11/05/2024 11:15 AM MACHINE HAMPER MAKER EXAMINATION: Images For Reference Purposes Only Galindo Mazariegos MD IMG XR PROCEDURES Kaylee l Result [facility] * CT Body Outside Consult (11/05/2024 11:11 AM MACHINE HAMPER MAKER) Anatomical Region Laterality Modality Body N/A Computed Tomogra phy 11/05/2024 12:0 6 PM MACHINE HAMPER MAKER Impressions 11/05/2024 12:31 PM MACHINE HAMPER MAKER 1. Findings of high-grade small bowel obstruction [...] images may or may not represent the [place] source data set and thus may contain changes that may lower the accuracy of this second-opinion interpretation. Dictated by: Mike Pineda M.D. The radiology attending physician has personally reviewed this study, and had reviewed and/or edited this written report and agrees with it. Electronically signed by: Blair Barnett M.D. Narrative 11/05/2024 12:31 PM MACHINE HAMPER MAKER EXAMINATION: RADIOLOGY CONSULTATION ON OUTSIDE IMAGING STUDY STUDY INITIALLY PERFORMED: 11/05/2024 at [facility]. TYPE OF STUDY: Multiple CT images [...] No abdominal or pelvic lymphadenopathy. Procedure Note Blair Barnett MD - 11/05/2024 EXAMINATION: RADIOLOGY CONSULTATION ON OUTSIDE IMAGING STUDY STUDY INITIALLY PERFORMED: 11/05/2024 at [facility]. TYPE OF STUDY: Multiple CT images [...] images may or may not represent the [place] source data set and thus may contain changes that may lower the accuracy of this second-opinion interpretation. Dictated by: Mike Pineda M.D. The radiology attending physician has personally reviewed this study, and had reviewed and/or edited this written report and agrees with it. Electronically signed by: Blair Barnett M.D. Galindo Mazariegos MD IMG CT PROCEDURES Kaylee l Result * Lactate (11/05/2024 10:53 AM MACHINE HAMPER MAKER) [facility] Lactate 1.2 0.7 - 2.0 mmol/L Blood 11/05/2024 10:5 3 AM MACHINE HAMPER MAKER 11/05/2024 11:23 AM MACHINE HAMPER MAKER Galindo Mazariegos MD LAB BLOOD ORDERABLES F inal Result [facility] Department of Laboratories [place], [place] [id number] * eGFR (11/05/2024 10:53 AM MACHINE HAMPER MAKER) [facility] eGFR 88 >=60 mL/min/1. 73 m2 Comment: [...] reviewed 2021. Blood 11/05/2024 10:5 3 AM MACHINE HAMPER MAKER 11/05/2024 11:22 AM MACHINE HAMPER MAKER us Galindo Mazariegos MD LAB BLOOD ORDERABLES F inal Result [facility] Department [place] [address] * (ABNORMAL) Differential, auto (11/05/2024 10:53 AM MACHINE HAMPER MAKER) Neutrophil abs 8.2(H) 1.5 - 6.5 K/cumm Imm gran abs 0.0 0.0 - 0.1 K/cumm [facility] Lymphocyte abs 2.5 0.8 - 3.3 K/cumm [facility] Monocyte abs 0.7 0.2 - 0.8 K/cumm [facility] Eosinophil abs 0.0 0.0 - 0.5 K/cumm [facility] Basophil abs 0.0 0.0 - 0.1 K/cumm [facility] Neutrophil pct 71.1 % [facility] Comment: Interpretive Data Percent cell count reference ranges are not reported, since discordance with absolute values may lead to misinterpretation of CBC data. Current Interpretive Data was last revised on 2017. Imm gran pct 0.3 % [facility] Comment: Interpretive Data Percent cell count reference ranges are not reported, since discordance with absolute values may lead to misinterpretation of CBC data. Current Interpretive Data was last revised on 2017. Lymphocyte pct 21.9 % [facility] Comment: Interpretive Data Percent cell count reference ranges are not reported, since discordance with absolute values may lead to misinterpretation of CBC data. Current Interpretive Data was last revised on 2017. Monocyte pct 6.1 % [facility] Comment: Interpretive Data Percent cell count reference ranges are not reported, since discordance with absolute values may lead to misinterpretation of CBC data. Current Interpretive Data was last revised on 2017. Eosinophil pct 0.3 % [facility] Comment: Interpretive Data Percent cell count reference ranges are not reported, since discordance with absolute values may lead to misinterpretation of CBC data. Current Interpretive Data was last revised on 2017. Basophil pct 0.3 % [facility] Comment: Interpretive Data Percent cell count reference ranges are not reported, since discordance with absolute values may lead to misinterpretation of CBC data. Current Interpretive Data was last revised on 2017. Blood 11/05/2024 10:5 3 AM MACHINE HAMPER MAKER 11/05/2024 11:23 AM MACHINE HAMPER MAKER us Galindo Mazariegos MD LAB BLOOD ORDERABLES F inal Result [facility] [facility] Department [place] [address] * (ABNORMAL) CBC with auto differential (11/05/2024 10:53 AM MACHINE HAMPER MAKER) WBC 11.6(H) 3.8 - 9.9 K/cumm Hgb 12.5 11.9 - 15.5 g/dL [facility] Hct 36.0 35.6 - 45.5 % [facility] Plt 251 150 - 400 K/cumm [facility] MPV 10.5 9.1 - 12.3 fL [facility] RBC 3.97 3.90 - 5.20 M/cumm [facility] MCV 90.7 81.3 - 96.4 fL [facility] MCH 31.5 27.1 - 33.3 pg [facility] MCHC 34.7 32.3 - 35.7 g/dL [facility] RDW CV 12.9 11.1 - 14.9 % [facility] RDW SD 42.8 35.7 - 48.1 fL [facility] NRBC abs 0.00 0.00 - 0.01 K/cumm [facility] Blood 11/05/2024 10:5 3 AM MACHINE HAMPER MAKER 11/05/2024 11:23 AM MACHINE HAMPER MAKER Galindo Mazariegos MD LAB BLOOD ORDERABLES F inal Result Performing Organization Address City/[facility]/ZIP Co de Phone Number [facility] [place] [address] * (ABNORMAL) Bilirubin, direct (11/05/2024 10:53 AM MACHINE HAMPER MAKER) [facility] Bilirubin, direct 0.5(H) 0.1 - 0.3 mg/dL Blood 11/05/2024 10:5 3 AM MACHINE HAMPER MAKER 11/05/2024 11:22 AM MACHINE HAMPER MAKER Lesly Mendoza MD LAB BLOOD ORDERABLES Final Result Performing Organization Address [facility] de Phone Number [facility] Department [place] [address] * (ABNORMAL) Comprehensive metabolic panel (11/05/2024 10:53 AM MACHINE HAMPER MAKER) [facility] Sodium 135 135 - 145 mmol/L Potassium, pl 3.7 3.3 - 4.9 mmol/L [facility] Chloride 99 97 - 110 mmol/L [facility] CO2 24 22 - 32 mmol/L [facility] Anion gap 12 2 - 15 mmol/L [facility] BUN 9 6 - 25 mg/dL [facility] Creatinine 0.66 0.60 - 1.10 mg/dL [facility] Glucose 96 70 - 199 mg/dL [facility] Comment: Interpretive Data Fasting glucose >/= [...] 2022. Calcium 7.7(L) 8.5 - 10.3 mg/dL [facility] Bilirubin, total 1.4(H) 0.1 - 1.2 mg/dL [facility] Protein, pl 5.9(L) 6.5 - 8.5 g/dL [facility] Albumin 3.6 3.5 - 5.0 g/dL [facility] Alk phos 70 40 - 130 Units/L [facility] ALT 18 7 - 45 Units/L [facility] AST 24 10 - 45 Units/L [facility] Blood 11/05/2024 10:5 3 AM MACHINE HAMPER MAKER 11/05/2024 11:22 AM MACHINE HAMPER MAKER us Galindo Mazariegos MD LAB BLOOD ORDERABLES F inal Result [facility] Department [place] [address] * ECG 12-LEAD (11/05/2024 10:21 AM MACHINE HAMPER MAKER) Narrative [facility] - 11/05/2024 10:21 AM MACHINE HAMPER MAKER Lesly Mendoza MD 11/05/2024 10:23 AM ECG [...] Mendoza MD ECG ORDERABLES Final Resu lt Performing Organization Address [facility] de Phone Number [facility] * (ABNORMAL) Troponin T high-sensitivity 2-hour (10/02/2024 1:47 PM MACHINE HAMPER MAKER) Trop T hs 29(H) <=14 ng/L Comment: [...] report a delta. Blood 10/02/2024 1:47 PM MACHINE HAMPER MAKER 10/02/2024 1:52 PM MACHINE HAMPER MAKER us Dawson Reyez MD LAB BLOOD ORDERABLES F inal Result Performing Organization Address [facility] Co de Phone Number [facility] [address] Department [place] [address] * (ABNORMAL) Troponin T high-sensitivity series (baseline, 2hr, 4hr, 6hr) (10/02/2024 10:14 AM MACHINE HAMPER MAKER) Trop T hs 22(H) <=14 ng/L Comment: Slight hemolysis may result in decreased troponin measurement. Consider recollection. Interpretive Data For further hscTnT resources including the diagnostic algorithm and an aid in interpretation, copy and paste this link: https://nrl.testcatalog.org/show/hsTrop Current Interpretive Data last revised 2020. Blood 10/02/2024 10:1 4 AM MACHINE HAMPER MAKER 10/02/2024 10:14 AM MACHINE HAMPER MAKER us Dawson Reyez MD LAB BLOOD ORDERABLES F inal Result [facility] [address] Department [place] [address] * [place] CRITICAL CARE ILL/INJURED PATIENT INIT 30-74 MIN (10/02/2024 9:59 AM MACHINE HAMPER MAKER) Narrative Dawson Reyez MD - 10/02/2024 9:59 AM MACHINE HAMPER MAKER Dawson Reyez MD 10/02/2024 2:21 PM Critical [...] (baseline, 2hr, 4hr, 6hr) (10/01/2024 11:52 PM MACHINE HAMPER MAKER) Trop T hs 29(H) <=14 ng/L Comment: Interpretive Data For further hscTnT resources including the diagnostic algorithm and an aid in interpretation, copy and paste this link: https://nrl.testcatalog.org/show/hsTrop Current Interpretive Data last revised 2020. Blood 10/01/2024 11:5 2 PM MACHINE HAMPER MAKER 10/02/2024 12:01 AM MACHINE HAMPER MAKER us Dewayne Saucedo MD LAB BLOOD ORDERABLES Edited Result - Final [facility] [address] [facility] Department [place] [address] * eGFR (10/01/2024 11:52 PM MACHINE HAMPER MAKER) eGFR 75 >=60 mL/min/1. 73 m2 Comment: [...] reviewed 2021. Blood 10/01/2024 11:5 2 PM MACHINE HAMPER MAKER 10/02/2024 12:21 AM MACHINE HAMPER MAKER us Dewayne Saucedo MD LAB BLOOD ORDERABLES Final Result [facility] [address] Department [place] [address] * Differential, auto (10/01/2024 11:52 PM MACHINE HAMPER MAKER) Neutrophil abs 4.2 1.5 - 6.5 K/cumm Imm gran abs 0.0 0.0 - 0.1 K/cumm [facility] Lymphocyte abs 2.2 0.8 - 3.3 K/cumm [facility] Monocyte abs 0.5 0.2 - 0.8 K/cumm [facility] Eosinophil abs 0.0 0.0 - 0.5 K/cumm [facility] Basophil abs 0.1 0.0 - 0.1 K/cumm [facility] Neutrophil pct 60.4 % [facility] Comment: Interpretive Data Percent cell count reference ranges are not reported, since discordance with absolute values may lead to misinterpretation of CBC data. Current Interpretive Data was last revised on 2017. Imm gran pct 0.3 % [facility] Comment: Interpretive Data Percent cell count reference ranges are not reported, since discordance with absolute values may lead to misinterpretation of CBC data. Current Interpretive Data was last revised on 2017. Lymphocyte pct 31.6 % [facility] Comment: Interpretive Data Percent cell count reference ranges are not reported, since discordance with absolute values may lead to misinterpretation of CBC data. Current Interpretive Data was last revised on 2017. Monocyte pct 6.6 % [facility] Comment: Interpretive Data Percent cell count reference ranges are not reported, since discordance with absolute values may lead to misinterpretation of CBC data. Current Interpretive Data was last revised on 2017. Eosinophil pct 0.4 % [facility] Comment: Interpretive Data Percent cell [...] on 2017. Blood 10/01/2024 11:5 2 PM MACHINE HAMPER MAKER 10/02/2024 12:01 AM MACHINE HAMPER MAKER Dewayne Saucedo MD LAB BLOOD ORDERABLES Final Result [facility] [address] Department [place] [address] * (ABNORMAL) CBC with auto differential (10/01/2024 11:52 PM MACHINE HAMPER MAKER) WBC 7.0 3.8 - 9.9 K/cumm Hgb 9.5(L) 11.9 - 15.5 g/dL [facility] Hct 29.0(L) 35.6 - 45.5 % [facility] Plt 203 150 - 400 K/cumm [facility] MPV 9.6 9.1 - 12.3 fL [facility] RBC 3.06(L) 3.90 - 5.20 M/cumm [facility] MCV 94.8 81.3 - 96.4 fL [facility] MCH 31.0 27.1 - 33.3 pg [facility] MCHC 32.8 32.3 - 35.7 g/dL [facility] RDW CV 12.5 11.1 - 14.9 % [facility] RDW SD 42.7 35.7 - 48.1 fL [facility] NRBC abs 0.00 0.00 - 0.01 K/cumm [facility] Blood Venous blood specimen / Unknown 10/01/2024 11:52 PM MACHINE HAMPER MAKER 10/02/2024 12:01 AM MACHINE HAMPER MAKER us Dewayne Saucedo MD LAB BLOOD ORDERABLES Final Result [facility] [address] Department [place] [address] * (ABNORMAL) Comprehensive metabolic panel (10/01/2024 11:52 PM MACHINE HAMPER MAKER) Sodium 130(L) 135 - 145 mmol/L Potassium, [...] [facility] Blood 10/01/2024 11:5 2 PM MACHINE HAMPER MAKER 10/02/2024 12:01 AM MACHINE HAMPER MAKER Dewayne Saucedo MD LAB BLOOD ORDERABLES Final Result [facility] [address] Department [place] [address] * ECG 12 lead (10/01/2024 11:45 PM MACHINE HAMPER MAKER) 10/01/2024 11:4 5 PM MACHINE HAMPER MAKER Narrative [facility] - 10/02/2024 12:51 PM MACHINE HAMPER MAKER Vent Rate: 51 bpm RR Interval: 1170 msec [place] Interval: 205 msec QRS Duration: 90 msec QT Interval: 465 msec QTC Interval: 441 msec P-R-T Ronceverte: 68 - -38 - 23 degrees IMPRESSION: SINUS BRADYCARDIA VOLTAGE CRITERIA FOR LVH Electronically Signed By: Jerrod Blackwell MD, [facility] Dewayne Saucedo MD ECG ORDERABLES Final Resul t Performing Organization Address [facility] Co de Phone Number [facility] * TYPE AND SCREEN 14 DAY (09/17/2024 12:20 PM MACHINE HAMPER MAKER) ABO Rh O Positive Caitie, indirect Negative [facility] 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 HAMPER MAKER 09/17/2024 1:11 PM MACHINE HAMPER MAKER Narrative [facility] - 09/17/2024 2:19 PM MACHINE HAMPER MAKER Is this test being ordered in advance for a procedure?->Yes Expected date of procedure:->09/28/24 Has the patient been transfused in the past 3 months?->No Has the patient been in the past 3 months?->No Andi Benedict MD LAB BLOOD BANK TEST ORDERABL ES Final Result Performing Organization Address City/[facility]/ZIP Co de Phone Number [facility] Department [place] [address] * eGFR (09/17/2024 12:20 PM MACHINE HAMPER MAKER) eGFR 69 >=60 mL/min/1. 73 m2 Comment: [...] reviewed 2021. 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 HAMPER MAKER 09/17/2024 12:54 PM MACHINE HAMPER MAKER us Andi Benedict MD LAB BLOOD ORDERABLES Final R esult [facility] Department [place] [address] * (ABNORMAL) CBC without differential (09/17/2024 12:20 PM MACHINE HAMPER MAKER) WBC 10.3(H) 3.8 - 9.9 K/cumm Hgb 12.7 11.9 - 15.5 g/dL [facility] Hct 37.0 35.6 - 45.5 % [facility] Plt 260 150 - 400 K/cumm [facility] MPV 10.5 9.1 - 12.3 fL [facility] RBC 4.17 3.90 - 5.20 M/cumm [facility] MCV 88.7 81.3 - 96.4 fL [facility] MCH 30.5 27.1 - 33.3 pg [facility] MCHC 34.3 32.3 - 35.7 g/dL [facility] RDW CV 13.3 11.1 - 14.9 % [facility] RDW SD 42.7 35.7 - 48.1 fL [facility] NRBC abs 0.00 0.00 - 0.01 K/cumm [facility] 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 HAMPER MAKER 09/17/2024 12:55 PM MACHINE HAMPER MAKER us Andi Benedict MD LAB BLOOD ORDERABLES Final R esult [facility] Department [place] [address] * (ABNORMAL) Comprehensive metabolic panel (09/17/2024 12:20 PM MACHINE HAMPER MAKER) Sodium 130(L) 135 - 145 mmol/L Potassium, pl 4.2 3.3 - 4.9 mmol/L [facility] Chloride 95(L) 97 - 110 mmol/L [facility] CO2 23 22 - 32 mmol/L [facility] Anion gap 12 2 - 15 mmol/L [facility] BUN 12 6 - 25 mg/dL [facility] Creatinine 0.85 0.60 - 1.10 mg/dL [facility] Glucose 88 70 - 199 mg/dL [facility] Comment: Interpretive Data Fasting glucose >/= [...] 2022. Calcium 9.3 8.5 - 10.3 mg/dL [facility] Bilirubin, total 1.2 0.1 - 1.2 mg/dL [facility] Protein, pl 7.1 6.5 - 8.5 g/dL [facility] Albumin 4.4 3.5 - 5.0 g/dL [facility] Alk phos 81 40 - 130 Units/L [facility] ALT 19 7 - 45 Units/L [facility] AST 27 10 - 45 Units/L [facility] 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 HAMPER MAKER 09/17/2024 12:54 PM MACHINE HAMPER MAKER us Andi Benedict MD LAB BLOOD ORDERABLES Final R esult [facility] Department [place] [address] * Lipid panel (07/05/2024 10:45 AM CDT) [...] BLOOD ORDERABLES Final Result Performing Organization Address City/[place] [address] [address] Department [place] [address] from Last 3 Months or Most Recently Relevant to Health Maintenance Insurance MEDICARE MEDICARE MEDICARE [facility] [employer] Advance Directives For more information, please contact: [phone] Documents on File Type Date Recorded Patient Classroom Paraprofessional Expl anation ADVANCE DIRECTIVE 11/15/2024 7:07 AM POWER OF NEUROPHYSIOLOGY TECH-MEDICAL ADVANCE DIRECTIVE 11/09/2024 1:19 PM VOIDE D DPOA ADVANCE DIRECTIVE 03/28/2018 12:00 AM PALLAVI NG [...] 11:05 AM 01/14/2018 1:10 PM Care Teams [place] Supervisor Relationship Specialty Start Date End Date Neli Moura DO [address] [place] [address] [place] [address] PCP - General Family Medicine 03/26/24
--- NOTE | 2024-11-28 07:29 | ED_ITS ---
HPI - General Adult General Chief complaint: Nausea/Vomiting/Diarrhea Stated complaint: n/v Time Seen by Provider: 11/28/24 06:55 History of Present Illness HPI narrative: 79-year-old female presenting to the emergency department for evaluation for periumbilical abdominal pain. Patient states she does had a previous diagnosis a hernia and also has had previous issues with small-bowel obstructions. Patient states he does have underlying issues with constipation and feels this does worsen her pain. Patient states she began having worsening abdominal pain yesterday. Patient is well-appearing and in no distress at time of evaluation. Related Data Home Medications ?Medication ?Instructions ?Recorded ?Confirmed ?Last Taken ?Type aspirin 81 mg tablet,delayed 81 mg PO DAILY 07/29/19 11/24/24 07/13/22 07:00 History release (Adult Low Dose Aspirin) cetirizine 10 mg capsule 10 mg PO DAILY 03/15/23 11/24/24 Unknown History ezetimibe 10 mg tablet 10 mg PO DAILY 03/15/23 11/24/24 Unknown History folic acid 1 mg tablet 3 mg PO DAILY 03/15/23 11/24/24 Unknown History albuterol sulfate 90 mcg/actuation 2 puff inhalation QID PRN 06/22/23 11/24/24 Unknown History aerosol inhaler Shortness Of Breath Or Wheezing methotrexate sodium 2.5 mg tablet 2.5 mg PO WEEKLY 06/22/23 11/24/24 Unknown History docusate sodium 100 mg capsule 100 mg PO DAILY 02/04/24 11/24/24 Unknown History (Dulcolax Stool Softener (docusate)) [id number]. coag-B. 1 tablet PO DAILY 02/04/24 11/24/24 Unknown History subtilis-inulin 1 billion cell-1 gram chew tab (Culturelle Probiotic-Multivit) spironolactone 25 mg tablet 12.5 mg PO DAILY 02/04/24 11/24/24 Unknown History fluticasone 250 mcg-salmeterol 50 1 inh inhalation BID 05/12/24 11/24/24 Unknown History mcg/dose blistr powdr for inhalation (Advair Diskus) guanfacine 1 mg tablet 1 mg PO HS 10/07/24 11/24/24 10/06/24 History hydralazine 25 mg tablet 25 mg PO TID 10/07/24 11/24/24 10/06/24 History Allergies Allergy/AdvReac Type Severity Reaction Status Date / Time No Known Allergies Allergy Verified 11/24/24 10:40 Review of Systems 2 Review of Systems: All systems reviewed & are unremarkable except as noted in HPI and below [facility] Past Medical History Medical History (Updated 11/28/24 @ 09:44 by Reinier Ojeda MD) Carotid artery stenosis More than 50 percent stenosis of right internal carotid artery Renal artery stenosis Folic acid deficiency Type 2 diabetes mellitus Vitamin D deficiency Chronic anticoagulation Paroxysmal atrial fibrillation Pneumonia Vitamin B 12 deficiency Heart failure with preserved ejection fraction Hypothyroidism Peptic ulcer Deep venous thrombosis Gastroesophageal reflux disease Chronic hyponatremia Chronic, continuous use of opioids Chronic pain syndrome Obstructive sleep apnea Noncompliant with CPAP. Irritable bowel syndrome Hypertension Coronary artery disease Angioplasty of a diagonal lesion in 01/2018. Cardiac catheterization 06/2019 showed patent coronary arteries. Anxiety Depression Degenerative joint disease involving multiple joints Rheumatoid arthritis Hiatal hernia Asthma Hyperlipidemia Peripheral neuropathy Seasonal allergies Surgical History Surgical History H/O heart artery stent x2 History of exploratory laparotomy Exploratory laparotomy with segmental mid jejunal small bowel resection with [id number] stapled anti peristaltic jejunal anastomosis 10/19/23 History of cataract extraction History of carpal tunnel release History of arthroscopy of both shoulders History of phacoemulsification of cataract with intraocular lens implantation History of cholecystectomy History of appendectomy History of foot surgery History of cardiac catheterization Angioplasty of a diagonal stenosis 01/2018. Cardiac catheterization 06/2019 showed patent coronary arteries. History of hysterectomy Family History Family History Grandparent Diabetes mellitus Father Diabetes mellitus Acute myocardial infarction Hypertension Family history of cardiovascular disease Mother Diabetes mellitus Hypertension Sibling Diabetes mellitus Hypertension Social History Social History Social History: The patient lives in [place]. Her 2023. 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 Lifelong nonsmoker. No alcohol or illicit substance abuse. Per patient, POA is [place], friend. Code status: Full code Caffeine-soda Smoking status: Never smoker Second hand tobacco smoke exposure: No Alcohol intake: never Substance use: never Substance use type: marijuana Other substance usage details: medical marijauna Do You Feel Safe in your Home?: Yes Lack of Transportation: No Lack of Food: Never True Current Housing: I Have Housing Concerned About Future Housing: No Difficulty Paying Gas/Electric Bills: No Difficulty Paying for Meds: No Currently Unemployed: No Education: Associate Degree Difficulty w/ Childcare or Family Care: No Spiritual care concerns: No Agree to blood products: Yes Exam 2 Narrative: APPEARANCE: Uncomfortable appearing on re-examination patient was well- appearing HEAD: normocephalic, atraumatic. EYES: PERRLA/EOMI, conjunctivae clear. NOSE: Normal no drainage EARS:TMS clear with good light reflex. THROAT: Pharynx clear, no exudate. NECK: Supple. No adenopathy, no masses. RESPIRATORY: Airway patent, respirations nonlabored. Clear to auscultation bilaterally, no rales, rhonchi, wheezing. CARDIOVASCULAR: Regular rate and rhythm without murmurs rubs or gallops. ABDOMINAL: No large incarcerated hernia was palpated, midline abdominal tenderness to palpation. On re-examination patient had no abdominal tenderness to palpation. MUSCULOSKELETAL: Moves all extremities. Strength/ROM intact, No edema, No calf tenderness. NEURO: Alert. Cranial nerves II through XII intact. Good gait. Good coordination SKIN: Warm, dry. Normal Color Course Vital Signs Vital signs: Vital Signs Temperature 97.9 F 11/28/24 04:10 Pulse Rate 82 11/28/24 04:10 Respiratory Rate 15 11/28/24 04:10 Blood Pressure 228/54 H 11/28/24 04:10 Pulse Oximetry 100 11/28/24 04:10 Oxygen Delivery Room Air 11/28/24 04:10 Temperature 97.9 F 11/28/24 04:10 Pulse Rate 81 11/28/24 10:06 Respiratory Rate 18 11/28/24 10:06 Blood Pressure 180/91 H 11/28/24 10:06 Pulse Oximetry 100 11/28/24 10:06 Oxygen Delivery Room Air 11/28/24 04:10 Medical Decision Making [facility] Narrative Medical decision making narrative: 79-year-old female present to emergency department for evaluation for abdominal pain. Patient is currently afebrile but does have a leukocytosis of 12.6 and a hemoglobin of 12.5. Patient does have a sodium of 122, patient does have history of hyponatremia but this is acutely low for her. UA was negative for infection. Patient did request medication for pain control. Patient is passing gas and flaccid in the emergency department. Patient did have a bowel movement emergency department. Patient does feel improved. Patient was offered admission for potential obstruction versus ileus and patient prefers to be discharged home. Patient was advised to follow a clear liquid diet for the next 1-3 days. Patient was also educated on reasons to return to the emergency department. Differential Diagnosis Differential Diagnosis: Colitis, diverticulitis, hernia, bowel obstruction, constipation Vital Signs Vital Signs: Vital Signs Temperature 97.9 F 11/28/24 04:10 Pulse Rate 82 11/28/24 04:10 Respiratory Rate 15 11/28/24 04:10 Blood Pressure 228/54 H 11/28/24 04:10 Pulse Oximetry 100 11/28/24 04:10 Oxygen Delivery Room Air 11/28/24 04:10 Temperature 97.9 F 11/28/24 04:10 Pulse Rate 81 11/28/24 10:06 Respiratory Rate 18 11/28/24 10:06 Blood Pressure 180/91 H 11/28/24 10:06 Pulse Oximetry 100 11/28/24 10:06 Oxygen Delivery Room Air 11/28/24 04:10 Lab Data Lab results reviewed: Yes I reviewed the patient's lab results. 11/28/24 04:30 11/28/24 04:30 Labs: Lab Results 11/28/24 11/28/24 Range/Units 04:30 06:09 WBC 12.6 H (4.5-10.0) K/mm3 RBC 3.88 L (4.2-5.4) M/mm3 Hgb 12.5 (12.0-15.0) g/dL Hct 35.2 L (37.0-47.0) % MCV 90.7 (80-100) fl MCH 32.2 (26-34) pg MCHC 35.5 (32-36) g/dl RDW 12.6 (11.5-14.5) % Plt Count 271 (150-375) k/mm3 MPV 9.2 (7.4-10.4) fl Immature Gran % (Auto) 0.4 (0-0.5) % Neut % (Auto) 76.9 H (45.5-73.1) % Lymph % (Auto) 16.1 L (18.3-44.2) % [place] % (Auto) 5.7 (2.6-8.5) % Eos % (Auto) 0.6 (0-4.4) % Baso % (Auto) 0.3 (0.2-1.2) % Lymph # (Auto) 2.03 (0.9-3.2) K/mm3 [place] # (Auto) 0.7 H (0.1-0.6) K/mm3 Eos # (Auto) 0.1 (0-0.3) K/mm3 Baso # (Auto) 0.0 (0.0-0.1) K/mm3 Abs Immat Gran (auto) 0.05 H (0.00-0.031) K/mm3 Absolute Neuts (auto) 9.7 H (1.3-6.7) K/mm3 Absolute Nucleated RBC 0.000 (0.0-0.012) K/mm3 Nucleated RBC % 0.0 (0.0-0.2) % Sodium 122 L (137-145) mmol/L Potassium 4.2 (3.4-5.0) mmol/L Chloride 89 L (98-107) mmol/L Carbon Dioxide 22 (22-30) mmol/L Anion Gap 11 (4-12) mmol/L BUN 10 (7-17) mg/dL Creatinine 0.78 (0.7-1.0) mg/dL Estim Creat Clear Calc Not Reportable Estimated GFR > 60 (59 - ) Glucose 158 H (65-110) mg/dL Calcium 9.7 (8.4-10.2) mg/dL Total Bilirubin 1.3 (0.2-1.3) mg/dL AST 26 (14-36) U/L ALT 21 (6-35) U/L Alkaline Phosphatase 137 H (38-126) U/L Total Protein 7.0 (6.3-8.2) g/dL Albumin 4.5 (3.5-5.1) g/dL Lipase 35 (23-300) U/L Urine Color Yellow (Yellow) Urine Appearance Clear (Clear) Urine pH 5.5 (5.0-9.0) Ur Specific [place] 1.010 (1.001-1.035) Urine Protein Negative (Negative) mg/dL Urine Glucose (UA) Negative (Negative) mg/dL Urine Ketones Negative (Negative) mg/dL Ur Blood (Man) Negative (Negative) Urine Nitrate Negative (Negative) Urine Bilirubin Negative (Negative) Urine Urobilinogen 0.2 (<2.0) mg/dL Leukocyte Esterase Rfl Negative (Negative) TEE/UL Imaging Data Radiologist's impression: Impressions Abdomen/Pelvis CT 11/28/24 07:11 IMPRESSION: 1. Dilated small bowel loops with a transition zone in the pelvis suggestive of ileus versus obstruction. Follow-up advised. Slightly thickened wall of the small bowel in the pelvis is also noted which may indicate enteritis. Clinical correlation advised. 2. Hyperdensities in the liver and spleen unchanged from previous examination 3. Sliding hiatus hernia. 4. Minimal fullness of the right renal pelvis with no stones. Pelviureteric junction stenosis cannot be excluded. Discharge Plan Discharge Clinical Impression: Abdominal pain, Constipation, Ileus Patient Disposition: Home, Self-Care Condition: Stable Instructions: Antibiotic Form, Clear Liquid Diet (ED), Abdominal Pain (ED) Additional Instructions: You were offered admission for possible bowel obstruction versus ileus but you preferred to be discharged home. I do recommend Tylenol and ibuprofen for pain control along with a clear liquid diet for the next 1-3 days. I do recommend increasing your water intake and adding MiraLax to help with your baseline constipation. If you have any worsening symptoms then please call or return to the emergency department. Patient Language: [place] Prescriptions: No Action Culturelle Probiotic-Multivit 1 billion cell- 1 gram tablet,chewable 1 tablet PO DAILY docusate sodium [Dulcolax Stool Softener (dss)] 100 mg capsule 100 mg PO DAILY spironolactone 25 mg tablet 12.5 mg PO DAILY ergocalciferol (vitamin D2) 1,250 mcg (50,000 unit) capsule 1,250 mcg PO WEEKLY Qty: 13 1RF Rx Instructions: friday atorvastatin 40 mg tablet 40 mg PO QHS Qty: 90 3RF fluticasone propion-salmeterol [Advair Diskus] 250-50 mcg/dose blister with device 1 inh inhalation BID Linzess 145 mcg capsule 145 mcg PO QAM Qty: 30 1RF losartan 50 mg tablet 100 mg PO DAILY Qty: 90 1RF ondansetron 4 mg tablet,disintegrating 4 mg PO DAILY PRN (Reason: nausea and vomiting) Qty: 30 2RF magnesium oxide 400 mg (241.3 mg magnesium) tablet 400 mg PO QAM Qty: 90 1RF folic acid 1 mg Tablet 3 mg PO DAILY ezetimibe 10 mg Tablet 10 mg PO DAILY cetirizine 10 mg Capsule 10 mg PO DAILY methotrexate sodium 2.5 mg tablet 2.5 mg PO WEEKLY Rx Instructions: THURSDAYS albuterol sulfate 90 mcg/actuation HFA aerosol inhaler 2 puff inhalation QID PRN (Reason: Shortness Of Breath Or Wheezing) oxycodone-acetaminophen 10-325 mg tablet 1 tablet PO Q6H PRN (Reason: Pain (Scale Score 4-6)) Qty: 1 0RF pantoprazole 40 mg Tablet,Delayed Release (Dr/Ec) 40 mg PO DAILY Qty: 30 0RF ferrous sulfate 325 mg (65 mg iron) Tablet,Delayed Release (Dr/Ec) 325 mg PO DAILY Qty: 30 1RF Eliquis 2.5 mg Tablet 2.5 mg PO Q12HR Qty: 60 1RF polyethylene glycol 3350 [Miralax] 17 gram Powder In Packet 17 g PO QAM PRN (Reason: Constipation) Qty: 30 0RF acetaminophen 500 mg capsule 1,000 mg PO Q6H PRN (Reason: pain) Qty: 30 0RF guanfacine 1 mg tablet 1 mg PO HS hydralazine 25 mg tablet 25 mg PO TID simethicone 80 mg Tablet,Chewable 80 mg PO QID Qty: 40 0RF bisacodyl [Laxative (bisacodyl)] 10 mg suppository 10 mg RECTAL DAILY PRN (Reason: constipation) Qty: 12 0RF aspirin [Adult Low Dose Aspirin] 81 mg tablet,delayed release (DR/EC) 81 mg PO DAILY cyanocobalamin (vitamin B-12) [Vitamin B-12] 1,000 mcg tablet 1,000 mcg PO QAM Qty: 90 1RF montelukast 10 mg tablet See Rx Instructions .ROUTE .COMPLEX Qty: 90 1RF Dose Instruction: 10 MG ORALLY DAILY Rx Instructions: 10 MG ORALLY DAILY sodium chloride 1,000 mg tablet,soluble 1,000 mg PO BID Qty: 180 1RF levothyroxine 88 mcg tablet See Rx Instructions .ROUTE .COMPLEX Qty: 90 1RF Dose Instruction: 88 MCG ORALLY EVERY MORNING Rx Instructions: 88 MCG ORALLY EVERY MORNING nitroglycerin 0.4 mg tablet, sublingual See Rx Instructions .ROUTE .COMPLEX Qty: 25 0RF Dose Instruction: 0.4 MG SUBLINGUALLY EVERY 5 MINUTES NEEDED FOR CHEST PAIN MAX 3 DOSES Rx Instructions: 0.4 MG SUBLINGUALLY EVERY 5 MINUTES NEEDED FOR CHEST PAIN MAX 3 DOSES buspirone 10 mg tablet See Rx Instructions .ROUTE .COMPLEX Qty: 180 1RF Dose Instruction: 10 MG ORALLY TWICE A DAY NEEDED FOR ANXIETY Rx Instructions: 10 MG ORALLY TWICE A DAY NEEDED FOR ANXIETY Follow-up/Referrals: Neli Moura DO [Primary Care Provider] -
[2024-11-28] MEDS: MORPHINE SULFATE (*CRX) 4 MG/ML INJ IV PUSH (07:44)
[2024-11-28] MEDS: LACTATED RINGERS 1,000 ML 999 ML IV CONT (07:44)
[2024-11-28 07:51] VITALS: BP 195/73; PULSE 91; RESP 20; O2SAT 99
[2024-11-28 10:06] VITALS: BP 180/91; PULSE 81; RESP 18; O2SAT 100
== END 2024-11-28 10:08 | disposition home or self-care (01) ==
PROVIDERS: Student in an Organized Health Care Education/Training Program; Emergency Provider Emergency Medicine; PCP Family Medicine
DX: R10.9 Unspecified abdominal pain (principal); K59.00 Constipation, unspecified; K56.7 Ileus, unspecified; Z79.82 Long term (current) use of aspirin; Z79.4 Long term (current) use of insulin; E11.9 Type 2 diabetes mellitus without complications; E55.9 Vitamin D deficiency, unspecified; I48.0 Paroxysmal atrial fibrillation; Z79.01 Long term (current) use of anticoagulants; E53.8 Deficiency of other specified B group vitamins; E03.9 Hypothyroidism, unspecified; Z86.718 Personal history of other venous thrombosis and embolism; I50.9 Heart failure, unspecified; K21.9 Gastro-esophageal reflux disease without esophagitis; G47.33 Obstructive sleep apnea (adult) (pediatric); I25.10 Atherosclerotic heart disease of native coronary artery without angina pectoris; F41.8 Other specified anxiety disorders; I11.0 Hypertensive heart disease with heart failure; J45.909 Unspecified asthma, uncomplicated; E78.5 Hyperlipidemia, unspecified; M06.9 Rheumatoid arthritis, unspecified
CPT/HCPCS: 36415; 74177; 80053; 81003; 83690; 85025; 96361; 96374; 99284; J2270; J7120; Q9967

== ENCOUNTER 2025-02-25 17:00 | Inpatient (IN) | payer MEDICARE, BC, SELFPAY ==
[2025-02-25] VITALS (12 sets, daily range): BP systolic 112–198; BP diastolic 50–101; PULSE 65–90; RESP 10–18; TEMP 36.2–36.6; O2SAT 96–100
--- NOTE | ~2025-02-25 | CT_ITS ---
CTA brain carotid Ordering provider: Ronda Donald MD History: . new vertigo; h/o carotid stenosis . Comparison: September 12, 2024 Technique: CT angiogram head and neck was performed following timed intravenous injection of contrast . Thin slice axial images and reformatted coronal images were obtained. Three dimensional reformatted images of the brain were also obtained using a [employer] workstation. Radiation reduction technique ut ilized.The dose-length product was 1524.54 mGy-cm. 100 mL Omnipaque 350 was given IV. FINDINGS: HEAD: --ANTERIOR AND MIDDLE CEREBRAL ARTERIES AND BRANCHES: Normal caliber and contour. Small caliber left A1 segment. --INTERNAL CAROTID ARTERIES: Moderate atheromatous disease bilaterally resulting in mild stenosis but no occlusion. --BASILAR ARTERY AND BRANCHES: Normal caliber and contour. No atheromatous disease. --POSTERIOR CEREBRAL ARTERIES: Normal caliber and contour --POSTERIOR COMMUNICATING ARTERIES: Not visualized which is probably related to congenital absence or small size. --ANEURYSM: None visualized. --BRAIN: Brain atrophy with deep white matter ischemic changes. Otherwise, normal. --BONES AND SUPERFICIAL SOFT TISSUES: Normal. --PARANASAL SINUSES AND MASTOIDS: Well aerated. NECK: --RIGHT CERVICAL CAROTID SYSTEM: Severe atheromatous disease of the carotid bulb and proximal interna l carotid artery. Percent stenosis per NASCET criteria is 90%. No carotid dissection. Otherwise, no significant atheromatous disease or stenosis of the cervical carotid system. --LEFT CERVICAL CAROTID SYSTEM: Severe atheromatous disease of the carotid bulb and proximal internal carotid artery. Percent stenosis per NASCET criteria is 90%. No carotid dissection. Otherwise, no significant atheromatous disease or stenosis of the cervical carotid system. --VERTEBRAL ARTERIES: Normal caliber and contour. --VISUALIZED AORTIC ARCH AND BRANCHING VESSELS: Mild atheromatous disease but no significant stenosis . Dependent atelectatic changes in the right lung --SOFT TISSUES: Normal. --CERVICAL SPINE: Age appropriate degenerative changes. IMPRESSION: 1. CTA head and neck. Percent stenosis per NASCET criteria is 90% bilaterally. 2. Small caliber left A1 segment. Physician: Ronda Donald MD Was notified with the result of the patient at 11:14 PM on February 25, 2025. Reviewed, dictated and finalized at location A. IMPRESSION: 1. CTA head and neck. Percent stenosis per NASCET criteria is 90% bilaterally . 2. Small caliber left A1 segment. Physician: Ronda Donald MD Was notified with the result of the patient at 11:14 PM on February 25, 2025.
--- NOTE | ~2025-02-25 | CT_ITS ---
CT cervical spine wo con Ordering provider: Ronda Donald MD History: . neck pain? . Comparison: None. Technique: CT of the cervical spine was performed without contrast. Sagittal and coronal reformatted images were also obtained and reviewed. Automated exposure control and iterative reconstruction anila hnique were employed. The dose-length product was 142.02 mGy-cm. FINDINGS: VERTEBRAE: No subluxation or acute fracture. The occipital condyles are intact. Degenerative changes of the spine. Reversal of lordosis centered at the level of C5. DISC SPACES: Narrowing of the disc C5-C6. Uncovertebral joint osteoarthritic changes in the same level. Multilevel facet joint disease. Bilater al narrowing of the level of C5-C6. PARASPINOUS SOFT TISSUES: Bilateral carotid atherosclerotic changes. IMPRESSION: No acute osseous abnormality cervical spine. Degenerative disc disease at the level of C5-C6. Reviewed, dictated and finalized at location A.
--- NOTE | ~2025-02-25 | MR_ITS ---
EXAMINATION: MR brain/brain stem wo/w con DATE: 02/26/2025 14:45 INDICATION: Positional vertigo. TECHNIQUE: Magnetic resonance imaging (MRI) of the brain and brainstem was performed without and with 11 mL Multihance intravenous contrast. Sequences included sagittal and axial T1-weighted FSE, axial diffusion-weighted FS EPI, axial 3D SWAN, axial T2-weighted FLAIR Propeller, axial T2-weighted Propel ler, small uqsti-cy-ffwk coronal FIESTA, small yhsrz-zv-namj coronal T1-weighted FSE, and small field -of-view axial T1-weighted SPGR. Postcontrast sequences included axial T1-weighted FSE, small field-o f-view coronal T1-weighted FSE, and small hkobz-yp-ehhv axial T1-weighted SPGR. Apparent diffusion co efficient (ADC) maps were created. . COMPARISON: None. FINDINGS: There are no areas of restricted diffusion to suggest acute infarction. No intracranial hemorrhage or abnormal intracranial mass lesion. There are no intraparenchymal signal abnormalities seen on the ot her pulse sequences. The ventricles are symmetric and normal in size. There are no abnormal extra-axi al fluid collections. Normal seventh/eighth cranial nerve complexes. No cerebellopontine angles mass es. Moderate sized left mastoid effusion. Right mastoid air cells and the bilateral middle ear caviti es are without fluid. Flow voids are seen in the cerebral arteries on the T2-weighted sequences consi stent with their expected patency. Changes of bilateral intraocular lens replacement. Mild mucosal th ickening in the bilateral ethmoid sinuses. There are no areas of abnormal enhancement on the post con trast images. IMPRESSION: 1. Moderate sized left mastoid effusion. Otherwise unremarkable brain MR. Reviewed, dictated and finalized at location A.
--- OUTSIDE RECORDS SUMMARY | 2025-02-25 17:02 | XMS_ITS | Clinical Summary ---
Author Organization [facility] Address [address] [place] [address] Care Team Providers Care Counter Intelligence Technician Name Role Phone Shruthi Mourazapilar Martin DO Primary Care Provider + Allergies No known active allergies Medications busPIRone (BUSPAR) 10 mg tabletIndications: Generalized Anxiety Disorder Take 1 tablet (10 mg total) by mouth 2 (two) times a day Active levothyroxine (SYNTHROID, LEVOTHROID) 88 mcg tabletIndications: hypothyroidism Take 1 tablet (88 mcg total) by mouth air deodorizer servicer before breakfast Active aspirin 81 mg tabletIndications: prevention of thrombosis,OTC / Heart health Take 1 tablet (81 mg total) by mouth every morning Active montelukast (SINGULAIR) 10 mg tabletIndications: Maintenance Therapy for Asthma Take 1 tablet (10 mg total) by mouth every morning 9 Active fluticasone propionate (FLONASE) 50 mcg/actuation nasal sprayIndications:A llergic Rhinitis Administer 1 spray into each nostril 2 (two) times a day as needed for rhinitis or allergies Active cyanocobalamin (Vitamin B-12) 1,000 mcg tabletIndications: Prevention of Vitamin B12 Deficiency,OTC / Take 1 tablet (1,000 mcg total) by mouth every morning Active magnesium oxide (MAG-OX) 400 mg (241.3 mg elemental magnesium) tabletIndications: Paroxysmal atrial fibrillation (HCC) TAKE 1 TABLET (400 MG TOTAL) BY MOUTH EVERY MORNING 90 tablet 3 4 Active folic acid (FOLVITE) 1 mg tabletIndications: Rheumatoid arthritis involving multiple sites (HCC) Take 3 tablets (3,000 mcg total) by mouth daily 270 tablet 1 4 Active ferrous sulfate 325 mg (65 mg of elemental iron) tabletIndications: Iron Deficiency Anemia,OTC Take 1 tablet (325 mg total) by mouth nightly [address] (PROTONIX) 40 mg EC tabletIndications: Treatment of Non-Bleeding Gastric Disorder Take 1 tablet (40 mg total) by mouth every morning 4 Active polyethylene glycol (MIRALAX) 17 gram packetIndications: constipation Take 1 packet (17 g total) by mouth every morning Active atorvastatin (LIPITOR) 40 mg tabletIndications: hyperlipidemia Take 1 tablet (40 mg total) by mouth nightly Active ezetimibe (ZETIA) 10 mg tabletIndications: hyperlipidemia Take 1 tablet (10 mg total) by mouth nightly Active nitroglycerin (NITROSTAT) 0.[address] 1 tablet (0.4 mg total) under the tongue every 5 (five) minutes as needed for chest pain 90 tablet 1 4 025 Active oxyCODONE-acetamin ophen (PERCOCET) 10-325 mg per tabletIndications: Pain Take 1 tablet by mouth every 6 (six) hours as needed for pain for up to 35 doses 35 tablet 4 Active Eliquis 2.5 mg tablet Take 1 tablet (2.5 mg total) by mouth every 12 (twelve) hours 60 tablet 5 026 Active guanFACINE (TENEX) 1 mg tablet Take 1 tablet (1 mg total) by mouth nightly 30 tablet 5 026 Active albuterol (PROAIR RESPICLICK) 90 mcg/actuation inhaler Inhale 2 puffs every 6 (six) hours as needed for wheezing 1 each 5 026 Active linaCLOtide (LINZESS) 290 mcg capsuleIndications :Constipation Predominant Irritable Bowel Syndrome Take 1 capsule (290 mcg total) by mouth daily before breakfast 30 capsule 3 5 Active losartan (COZAAR) 100 mg tablet Take 1 tablet (100 mg total) by mouth daily 30 tablet 3 5 026 Active bisacodyl EC (DULCOLAX EC) 5 mg EC tabletIndications: constipation Take 1 tablet (5 mg total) by mouth daily 30 tablet 5 Active simethicone (MYLICON) 80 mg chewable tablet Take 2 tablets (160 mg total) by mouth 4 (four) times a day as needed for flatulence 30 tablet 5 Active AMILoride (MIDAMOR) 5 mg tablet Take 1 tablet (5 mg total) by mouth daily 30 tablet 11 5 026 Active ondansetron ODT (ZOFRAN-ODT) 4 mg disintegrating tabletIndications: N/V Take 1 tablet (4 mg total) by mouth as needed for nausea or vomiting 5 Active nitrofurantoin monohydrate (MACROBID) 100 mg capsuleIndications :Urinary Tract/Genitourinar y Infection Take 1 capsule (100 mg total) by mouth 2 (two) times a day 10 capsule 5 Active hydrALAZINE (APRESOLINE) 50 mg tabletIndications: hypertension Take 1 tablet (50 mg total) by mouth 3 (three) times a day 270 tablet 3 5 026 Active amLODIPine (NORVASC) 5 mg tablet Take 1 tablet (5 mg total) by mouth daily 90 tablet 3 5 026 Active sodium chloride 1,000 mg tablet Take 1 tablet (1 g total) by mouth 3 (three) times a day 270 tablet 3 5 Active Active Problems Problem Noted Date Diagnosed Date Chronic prescription opiate use 12/29/2024 Assessment & Plan (12/29/2024 8:27 AM CDT): Chronic neck pain, back pain and neuropathic pain. Neuropathy in hands. Pt takes oxycodone 10 mg QID x 25 years - Continue home pain regimen Stenosis of left carotid artery 11/19/2024 Assessment & Plan (12/29/2024 9:24 AM CDT): - OR 12/29/24 for Left carotid endarterectomy - OU status/ Q 2 NV checks and VS - CLD then ADAT - Bedrest overnight, OOB POD 1 - Asa/ statin - SBP goals 110-150 Puncture wound of left wrist 11/11/2024 Assessment & Plan (11/11/2024 11:15 AM TEAM LEAD): 11/11 patient had me examine her left wrist (photo loaded in EPIC) stated wound occurred due to EMS poking site with a pen on accident site is bruised with a scab present, no drainage or warmth noted to the site. Mood disorder 11/06/2024 Assessment & Plan (11/07/2024 10:50 AM TEAM LEAD): Home regimen: buspar, guanfacine (held while NPO) 11/07 resumed Chronic pain 11/06/2024 Assessment & Plan (11/10/2024 8:07 AM TEAM LEAD): Home regimen: percocet 10/325 QID PRN, last dispensed 11/01 for #56 tabs --- hold on oral narcotics until diet advanced as not to cloud picture iso SBO 11/10 resumed Hypothyroidism 11/06/2024 Assessment & Plan (11/07/2024 10:49 AM TEAM LEAD): Home regimen: levothyroxine (held while NPO) - plan to initiate IV dosing if NPO >5d per [facility] policy 11/07 resumed Discharge planning issues 11/06/2024 Assessment & Plan (11/11/2024 11:22 AM TEAM LEAD): 11/06 barrier to discharge: PO tolerance, ADD [...] 11/06/2024 Assessment & Plan (11/06/2024 11:09 AM TEAM LEAD): 11/06 epic dispense report reviewed and updated in ADMISSIONS tab At risk for malnutrition 11/06/2024 Assessment & Plan (11/10/2024 8:07 AM TEAM LEAD): 11/06 Body mass index is 26.26 kg/m [...] 11/05/2024 Assessment & Plan (11/11/2024 11:14 AM TEAM LEAD): PSHx: 1990s: cholecystectomy, KELLY 10/2023 OSH: SBR [...] 09/28/2024 Assessment & Plan (11/10/2024 12:02 PM TEAM LEAD): TTE 07/06/2024: EF 70%, G1DD Home regimen: [...] titration Assessment & Plan (09/28/2024 9:18 AM TEAM LEAD): - Diastolic dysfunction w/o CHF. Diastolic function: stage I - impaired relaxation LVEF: >70% Asthma 09/28/2024 Assessment & Plan (11/10/2024 12:06 PM TEAM LEAD): Albuterol PRN --- plan to discharge with new inhaler (ordered), as patient has not used hers at home, f/u with PCP (GWEN facilitating) Assessment & Plan (09/28/2024 9:29 AM TEAM LEAD): - Continue home albueterol and advair - IS - OOB when able PAF (paroxysmal atrial fibrillation) 05/12/2023 Assessment & Plan (12/29/2024 8:21 AM CDT): On Eliquis at home. - Hold Eliquis for now Assessment & Plan (11/10/2024 12:04 PM TEAM LEAD): Home rate control regimen: nebivolol, amiodarone (held [...] up Assessment & Plan (09/28/2024 9:20 AM TEAM LEAD): Home regimen: amiodarone, Eliquis - continue amiodarone [...] eyes 01/28/2022 Hyponatremia 05/28/2021 Assessment & Plan (12/29/2024 9:17 AM CDT): Per 04/2021 cards note (found in 11/15/[address] 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 Resistant hypertension 03/22/2019 Assessment & Plan (12/29/2024 9:26 AM CDT): BP runs 180-200/70s - Continue home regimen - Nicardipine gtt prn SBP goal 110-160 Assessment & Plan (11/06/2024 11:02 AM TEAM LEAD): See DIASTOLIC DYSFUNCTION parameter for management Assessment & Plan (09/28/2024 9:22 AM TEAM LEAD): - Home regimen: hydralazine, losartan, nebivolol, spirnolactone - VS Q2 hrs and PRN - OU - resume home meds as able Rheumatoid arthritis involving multiple sites History of carotid artery disease 10/14/2017 Assessment & Plan (11/10/2024 8:10 AM TEAM LEAD): Scheduled for left carotid endarterectomy 11/12 with [...] agrees. Assessment & Plan (09/23/2017 1:48 PM TEAM LEAD): Negative Lexiscan nuclear stress test back in August 2017. She does have strong family history for coronary artery disease. Will re-evaluate next visit. Evidence of type 1 diastolic dysfunction on echocardiogram. Mixed hyperlipidemia 09/23/2017 Assessment & Plan (02/16/2018 9:11 AM CDT): Continue Lipitor. Assessment & Plan (12/29/2017 1:10 PM CDT): Continue Lipitor 40 mg p.o. daily. Assessment & Plan (09/23/2017 1:49 PM TEAM LEAD): L continue Lipitor. 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 Not on home medications - Carb consistent diet when eating - Accuchecks QID + SSI Assessment & Plan (11/07/2024 10:47 AM TEAM LEAD): Last A1c 06/2024: 5.6 Home regimen: none Current diet: NPO SSI while inpatient, goal BG <180 A1c 11/06: 5.5 Assessment & Plan (09/28/2024 9:20 AM TEAM LEAD): HgbA1c 5.6, not on any home medications - Monitor glucose with daily labs - Carb consistent diet when eating Osteoarthritis 05/13/2011 Trochanteric bursitis 01/12/2011 Overview (12/26/2017): Description: Trochanteric Bursitis Rheumatoid arthritis 01/12/2011 Overview (12/26/2017): Description: Rheumatoid Arthritis Assessment & Plan (11/06/2024 10:59 AM TEAM LEAD): Home regimen: none Irritable bowel syndrome 11/03/2010 Assessment & Plan (11/10/2024 12:04 PM TEAM LEAD): Home regimen: linzess, mag oxide (held while NPO) - resume home regimen when tolerating regular diet --- patient requesting to resume linzess 11/10 (ordered for AM dosing 11/11) at higher rate than previously taking, reports that PCP had intended to do so as needed, CM assisting with obtaining PCP appt on discharge Gastroesophageal reflux disease 11/03/2010 Assessment & Plan (11/07/2024 10:49 AM TEAM LEAD): Home regimen: protonix - IV formulation while NPO - resume home formulation when tolerating regular diet Pseudophakia 08/23/2010 Coronary artery disease invo lving assiniboine and sioux coronary artery of assinibo[place] and sioux heart with angina pectoris Assessment & Plan (12/29/2024 8:32 AM CDT): History of JOSE- megatron 3.5 x 32 covering part of mid and then proximal RCA and megatron 3.5 x 8 covering ostial RCA and overlapping the distal RCA stent.) 07/06/24. - Continue asa/ statin Assessment & Plan (11/10/2024 8:08 AM TEAM LEAD): S/p JOSE to RCA x2 (06/2024) Home regimen: asa, plavix (last doses 11/04), lipitor, ezetimibe TTE 07/06/2024: EF 70%, G1DD 11/06 start cangrelor infusion while NPO 11/07-11/10 passed small bowel challenge, see alt parameter for diet modifications, continue cangrelor until diet tolerance declared Assessment & Plan (09/28/2024 9:15 AM TEAM LEAD): S/p RCA stenting 07/08 - continue ASA, [...] 11/19/2024 Assessment & Plan (09/28/2024 9:20 AM TEAM LEAD): 09/28: s/p Left carotid endarterectomy - OU, [...] (06/25/2019): Added automatically from request for surgery [id number] Chest pain 06/25/2019 10/29/2021 Overview (06/25/2019): Added automatically from request for surgery [id number] Essential hypertension, malignant 09/23/2017 03/22/2019 Assessment & Plan (02/16/2018 9:10 AM CDT): Blood pressure is much better controlled. Continue current treatment. Assessment & Plan (12/29/2017 1:10 PM CDT): Blood pressure well controlled. Continue current treatment. Assessment & Plan (09/23/2017 1:48 PM TEAM LEAD): Blood pressure is controlled today however patient states that her blood pressure runs high at home. I will bring patient 2 weeks and re-evaluate her blood pressure as well as re-evaluate her blood pressure log. I asked the patient also to bring her blood pressure machine to compare her home reading with our readings here. Encounters Date Type Department Care Team Description 02/22/2025 Telephone [facility] Cardiology [address] [place] [address] [place] [phone] Alfredo Pedraza MD 01/24/2025 1:30 PM CDT Office Visit [facility] Cardiology [address] [place] [phone] Alfredo Pedraza MD Coronary artery disease involving assiniboine and sioux coronary artery of assiniboine and sioux heart with angina pectoris (Primary Dx); PAF (paroxysmal atrial fibrillation) (HCC); Resistant hypertension; History of carotid artery disease 01/24/2025 Telephone [facility] Cardiology [address] [place] [address] [place] [phone] Alfredo Pedraza MD 01/11/2025 Telephone [facility] Surgery [address] [facility] Medical Office Building 1 [address], [place] [address] Dayana Neal RMA Scheduling Appointments 12/29/2024 8:10 PM CDT Anesthesia Event [facility] Operating Room [address] [place] [phone] Delbert Rivera MD PhD Radha Hernandez NP 12/29/2024 6:31 AM CDT - 12/29/2024 12:00 PM CDT Hospital Encounter [facility] Operating Room [address] [place] [address] Boby Hernandez MD Stenosis of left carotid artery Discharge Disposition: Discharge to home or self care 12/29/2024 Documentation [facility] Surgery [address] [place] [address] Medical Office Building [address] [place] [phone] Carolina Maria NP 12/20/2024 10:00 AM CDT Office Visit [facility] Cardiology [address] [place] [address] Alfredo Pedraza MD Hx of non-ST elevation myocardial infarction (NSTEMI) (Primary Dx); Hypertensive heart disease with heart failure (HCC); Stenosis of left carotid artery; Mixed hyperlipidemia; Coronary artery disease involving assiniboine and sioux coronary artery of assiniboine and sioux heart with angina pectoris; PAF (paroxysmal atrial fibrillation) (HCC); History of carotid artery disease 12/17/2024 Orders Only [facility] [address] [place] [address] Office [address] [place] [phone] Boby Hernandez MD 12/07/2024 Telephone [facility] Surgery [address] [place] [address] [place] [phone] Carolina Maria NP 12/02/2024 8:00 AM CDT Pre-Admission Testing [facility] Center for Preoperative Assessment and Planning [facility] ([facility]) [address] [place] [phone] Preoperative testing (Primary Dx) from Last 3 Months Immunizations Immunization Administration Dates Next Due COVID-19 mRNA (PFIZER) 0.3 m L (30 mcg) vaccine (12 [...] Comments Heart attack Father Heart attack Mother Anesthesia problems Neg Hx Relation Name Status Comments Father Mother Social History Tobacco Use Types Packs/Day Years Used Date Smoking Tobacco: Never Smokeless Tobacco: Never Tobacco Cessation:Counseling Given: Not Answered Alcohol Use Standard Drinks/Week Comments No 0 (1 standard drink = 0.6 oz pur e alcohol) [facility] Utilities Answer Date Recorded In the past 12 months has e [employer], gas, oil, or water [employer] threatened to shut off services in your [...] 11/09/2024 How often do you attend chur ch or orthodox services? More than 4 times per year 11/09/2024 Do you belong to any clubs o r organizations such as alevism groups, unions, fraternal or athletic groups, or school groups? Yes 11/09/2024 How often do you attend meet ings of the clubs or organizations you belong to? 1 to 4 times per year 11/09/2024 Are you , , di vorced, , never , or living with a partner? 11/09/2024 AUDIT-C Answer Date Recorded Q1: How often do you have a drink containing alcohol? Never 12/29/2024 Q2: How many drinks containi ng alcohol do you have on a typical day when you are drinking? Patient does not drink Q3: How often do you have si x or more drinks on one occasion? Never 12/29/2024 Overall Financial Resource Strain (CARDIA) Answe r Date Recorded How hard is it for you to pa y for the very basics like food, housing, medical care, and heating? Not hard at all 11/09/2024 PHQ-2 Answer Date Recorded PHQ-2 Total Score 0 11/09/2024 [facility] - Occupational Stress [...] any time in the past 12 m [facility], were you homeless or living in a alf (including now)? No 11/09/2024 Personal Safety Answer Date Recorded Have you ever been in or are you currently in a harmful physical or emotional relationship or is someone making you feel afraid or unsafe? Patient unable to answer 12/29/2024 Comments No Sex and Gender Information Value Date Recorded Sex Assigned at Not on file Legal Sex Female 2:12 AM TEAM LEAD Gender Identity Not on file Sexual Orientation Not on file Obstetrics History Last Filed Vital Signs Vital Sign Reading Time Taken Comments Blood Pressure 148/62 01/24/2025 1:31 PM CDT Pulse 74 01/24/2025 1:31 PM CDT Temperature 36.5 C (97.7 F) 12/29/2024 7:20 AM CDT Respiratory Rate 15 12/29/2024 9:40 AM CDT Oxygen Saturation 98% 01/24/2025 1:31 PM CDT Inhaled Oxygen Concentration - - Weight 57.2 kg (126 lb) 01/24/2025 1:31 PM CDT Height 149.9 cm (4' 11) 01/24/2025 1:31 PM CDT Body Mass Index 25.45 01/24/2025 1:31 PM CDT Plan of Treatment Health Maintenance Due Date [...] history exists Depression Screening 11/05/2025 11/05/2024 eGFR 12/02/2025 12/02/2024, 10/17, 11/09/2024, Additional history exists Fall Risk Assessment 12/29/2025 12/29/2024 DTaP/Tdap/Td Vaccine (4 - Td or Tdap) 06/19/2033 06/19/2023, 06/30/2016, 07/19/2013 Influenza Vaccine Completed 07/16/2024, , 07/14/2019, Additional history exists Medical Devices Implanted Type Area Pelt Dropper Device Identifier Shelf Expiration Date Model / Serial / Lot Page Mage Stent Coronary Drug Eluting Rapid Exchange Synergy Megatron 3.68s24ov [place] Chromium [id number] - [id number] Implanted:Qty: 1 on 07/06/2024 by Alfredo Pedraza MD at [facility] Page Mage 11/19/2025 [id number] 350 / / [id number] Page Mage Stent Drug Eluting S Megatron 3.50x8mm [id number] - [id number] Implanted:Qty: 1 on 07/06/2024 by Alfredo Pedraza MD at [facility] Page Mage 07/07/2025 [id number] 350 / / [id number] adRiseOmniStrat Angio-Seal Vip 6fr Closere Device [id number] - [id number] Implanted:Qty: 1 on 07/06/20[id number] / / Procedures Procedure Name Priority Date/Time Associated Diagnosis Comments POCT GLUCOSE DEVICE Routine 12/29/2024 7 :36 AM CDT SODIUM LEVEL STAT 12/29/2024 7:35 AM CDT REFLEXIVE URINE CULTURE Routine 12/21/2024 12:22 PM CDT URINALYSIS AND REFLEX TO MICROSCOPIC AND CULTURE Routine 12/21/2024 12:22 PM CDT Acute cystitis without hematuria EGFR Routine 12/02/2024 10:05 AM CDT Preoperative testing URINALYSIS, MICROSCOPIC ONLY Routine 12/02/2024 10:05 AM CDT Preoperative testing DIFFERENTIAL AUTO Routine 12/02/2024 10: 05 AM CDT Preoperative testing BASIC METABOLIC PANEL Routine 12/02/2024 10:05 AM CDT Preoperative testing CBC WITH AUTO DIFFERENTIAL Routine 12/02/2024 10:05 AM CDT Preoperative testing TYPE AND SCREEN 14 DAY Routine 12/02/2024 10:05 AM CDT Preoperative testing URINE CULTURE Routine 12/02/2024 10:05 AM CDT URINALYSIS AND REFLEX TO MICROSCOPIC AND CULTURE Routine 12/02/2024 10:05 AM CDT Preoperative testing ECG 12-LEAD Routine 12/02/2024 9:41 AM CDT Preoperative testing HEMOGLOBIN A1C Routine 11/06/2024 9:34 PM TEAM LEAD LIPID PANEL Timed 07/05/2024 10:45 AM CDT from Last 3 Months or Most Recently Relevant to Health Maintenance Results * POCT glucose (12/29/2024 7:36 AM CDT) Glucose, POC 142 70 - 199 mg/dL Blood 12/29/2024 7:36 AM CDT 12/29/2024 7:36 AM CDT us Boby Hernandez MD LAB POCT ORDERABLES - DEVICE Final Result [facility] Department [place] [address] * (ABNORMAL) Sodium level (12/29/2024 7:35 AM CDT) Sodium 126(L) 135 - 145 mmol/L Blood 12/29/2024 7:35 AM CDT 12/29/2024 7:41 AM CDT Lenora Calderon DEPUTY HARBORMASTER LAB BLOOD ORDERABLES Fi nal Result [facility] Department [place] [address] * REFLEXIVE URINE CULTURE (12/21/2024 12:22 PM CDT) Urine culture [facility] Comment:NO CULTURE INDICATED 12/21/2024 12:2 2 PM CDT 12/21/2024 12:23 PM CDT Carolina Maria DEPUTY HARBORMASTER LAB MICROBIOLOGY - GENER AL ORDERABLES Final Result Performing Organization Address City/[facility]/ZIP Co de Phone Number [facility] [address] [place] [address] * Urinalysis reflex to microscopic and culture Urine (12/21/2024 12:22 PM CDT) Color, ur YELLOW YELLOW [facility] Appearance, ur CLEAR CLEAR [facility] Specific gravity 1.007 1.001 - 1.035 [facility] pH, ur 6.5 5.0 - 8.0 [facility] Glucose, ur NEGATIVE NEGATIVE [facility] Bilirubin, ur NEGATIVE NEGATIVE [facility] Ketones, ur NEGATIVE NEGATIVE [facility] Blood, ur NEGATIVE NEGATIVE [facility] Protein, ur, quant NEGATIVE NEGATIVE [facility] Nitrites, ur NEGATIVE NEGATIVE [facility] Leukocyte esterase, ur NEGATIVE NEGATIVE [facility] WBC, ur NONE SEEN < OR = 5 /HPF [facility] RBC, ur NONE SEEN < OR = 2 /HPF [facility] Epithelial cells, squamous, ur NONE SEEN < OR = 5 /HPF [facility] Bacteria, ur, quant NONE SEEN NONE SEEN /HPF [facility] Hyaline cast NONE SEEN NONE SEEN /LPF [facility] Note [facility] Comment: This urine was analyzed for the presence of WBC, RBC, bacteria, casts, and other formed elements. Only those elements seen were reported. Urine 12/21/2024 12:2 2 PM CDT 12/21/2024 12:23 PM CDT Carolina Maria DEPUTY HARBORMASTER LAB MICROBIOLOGY - [facility] AL ORDERABLES Final Result Performing Organization Address City/[facility]/ZIP Co de Phone Number [facility] [address] [place] [address] * TYPE AND SCREEN 14 DAY (12/02/2024 10:05 AM CDT) Pathologist [facility] Caitie, indirect Negative ABO Rh O Positive [facility] Blood 12/02/2024 10:0 5 AM CDT 12/02/2024 11:40 AM CDT Narrative [facility] - 12/02/2024 12:38 PM CDT Is this test being ordered in advance for a procedure?->Yes Expected date of procedure:->12/08/24 Has the patient been transfused in the past 3 months?->No Has the patient been in the past 3 months?->No Radha Hernandez NP LAB BLOOD BANK TEST ORDERABLES F inal Result Performing Organization Address [facility] Co de Phone Number [facility] Department [place] [address] * eGFR (12/02/2024 10:05 AM CDT) eGFR 83 >=60 mL/min/1. 73 m2 Comment: Interpretive Data [...] interpretive data was last reviewed 2021. Blood 12/02/2024 10:0 5 AM CDT 12/02/2024 11:35 AM CDT us Radha Hernandez NP LAB BLOOD ORDERABLES Final Resul t [facility] Department [place] [address] * (ABNORMAL) Differential, auto (12/02/2024 10:05 AM CDT) Neutrophil abs 7.3(H) 1.5 - 6.5 K/cumm Imm gran abs 0.0 0.0 - 0.1 K/cumm [facility] Lymphocyte abs 2.7 0.8 - 3.3 K/cumm [facility] Monocyte abs 0.6 0.2 - 0.8 K/cumm [facility] Eosinophil abs 0.2 0.0 - 0.5 K/cumm [facility] Basophil abs 0.1 0.0 - 0.1 K/cumm [facility] Neutrophil pct 66.5 % [facility] Comment: Interpretive Data Percent cell count reference ranges are not reported, since discordance with absolute values may lead to misinterpretation of CBC data. Current Interpretive Data was last revised on 2017. Imm gran pct 0.4 % [facility] Comment: Interpretive Data Percent cell count reference ranges are not reported, since discordance with absolute values may lead to misinterpretation of CBC data. Current Interpretive Data was last revised on 2017. Lymphocyte pct 24.5 % [facility] Comment: Interpretive Data Percent cell count reference ranges are not reported, since discordance with absolute values may lead to misinterpretation of CBC data. Current Interpretive Data was last revised on 2017. Monocyte pct 5.8 % [facility] Comment: Interpretive Data Percent cell count reference ranges are not reported, since discordance with absolute values may lead to misinterpretation of CBC data. Current Interpretive Data was last revised on 2017. Eosinophil pct 2.1 % [facility] Comment: Interpretive Data Percent cell count reference ranges are not reported, since discordance with absolute values may lead to misinterpretation of CBC data. Current Interpretive Data was last revised on 2017. Basophil pct 0.7 % [facility] Comment: Interpretive Data Percent cell count reference ranges are not reported, since discordance with absolute values may lead to misinterpretation of CBC data. Current Interpretive Data was last revised on 2017. Blood 12/02/2024 10:0 5 AM CDT 12/02/2024 11:26 AM CDT Radha Hernandez NP LAB BLOOD ORDERABLES Final Resul t [facility] Department [place] [address] * (ABNORMAL) Urinalysis reflex to microscopic and culture Urine, clean voided (12/02/2024 10:05 AM CDT) Color, ur Straw Yellow Clarity, ur Cloudy(A) Clear [facility] Specific gravity, ur 1.008 1.003 - 1.030 [facility] pH, urine 6.5 [facility] Comment: Interpretive Data U rine pH is affected by diet, medications, systemic acid-base disturbances, and renal tubular function. pH may affect urinary stone formation. For example, urine pH below 6.0 may help reduce the tendency for calcium phosphate stones and pH greater than 6.0 may reduce the tendency for uric acid stone formation. Source: [facility] Current Interpretive Data was last revised on 2017 Protein, ur ql Negative Negative [facility] Glucose, ur ql Negative Negative [facility] Ketones, ur Negative Negative [facility] Bilirubin, ur Negative Negative [facility] Blood, ur Negative Negative [facility] Urobilinogen, ur <2.0 <2.0 mg/dL [facility] Nitrite, ur Positive(A) Negative [facility] Leukocyte esterase, ur 3+(A) Negative [facility] UA reflex comment Reflex to microscopic UA will be performed. [facility] Urine, clean voided 12/02/2024 10:05 AM CDT 12/02/2024 11:26 AM CDT us Radha Hernandez NP LAB MICROBIOLOGY - GENERAL ORDER JAYME Final Result Performing Organization Address City/[facility] Co de Phone Number [facility] Department [place] [address] * (ABNORMAL) CBC with auto differential (12/02/2024 10:05 AM CDT) WBC 11.0(H) 3.8 - 9.9 K/cumm Hgb 13.0 11.9 - 15.5 g/dL [facility] Hct 36.5 35.6 - 45.5 % [facility] Plt 288 150 - 400 K/cumm [facility] MPV 9.6 9.1 - 12.3 fL [facility] RBC 4.05 3.90 - 5.20 M/cumm [facility] MCV 90.1 81.3 - 96.4 fL [facility] MCH 32.1 27.1 - 33.3 pg [facility] MCHC 35.6 32.3 - 35.7 g/dL [facility] RDW CV 12.8 11.1 - 14.9 % [facility] RDW SD 42.0 35.7 - 48.1 fL [facility] NRBC abs 0.00 0.00 - 0.01 K/cumm [facility] Blood 12/02/2024 10:0 5 AM CDT 12/02/2024 11:26 AM CDT us Radha Hernandez NP LAB BLOOD ORDERABLES Final Resul t Performing Organization Address City/State/[facility] Co de Phone Number [facility] Department [place] [address] * (ABNORMAL) Urinalysis, microscopic only (12/02/2024 10:05 AM CDT) WBC, ur >50(A) 0 - 5 /HPF RBC, ur 3-5(A) 0 - 2 /HPF [facility] Epithelial cells, squamous, ur 1-5 0 - 5 /HPF [facility] Epithelial cells, transitional, ur 1-5 0 - 0 /HPF [facility] Bacteria, ur 1+(A) [facility] Mucous, ur Present(A) [facility] Culture Reflex Comment Reflex to urine culture will be performed. [facility] Urine, clean voided 12/02/2024 10:05 AM CDT 12/02/2024 11:26 AM CDT Radha Hernandez NP LAB URINE ORDERABLES Final Resul t Performing Organization Address [facility] Co de Phone Number [facility] Department [place] [address] * (ABNORMAL) Urine culture Urine, clean voided (12/02/2024 10:05 AM CDT) Report Final Report: Greater than or equal to 100,000 colonies/mL of Escherichia coli (.) Organism ESCHERICHIA COLI [facility] Urine, clean voided 12/02/2024 10:05 AM CDT 12/02/2024 12:21 PM CDT Narrative [facility] - 12/04/2024 10:09 AM CDT Urine culture reflexed based upon urinalysis results. Testing performed by [facility] Microbiology Laboratory ([phone]) Organism Antibiotic Method Susceptibility Escherichia coli Ampicillin INTERPRETATION Susceptible Escherichia coli Cefazolin INTERPRETATION Susceptible Escherichia coli Nitrofurantoin INTERPRETATION Susceptible Escherichia coli Gentamicin INTERPRETATION Susceptible Escherichia coli Trimethoprim with Sulfamethoxazole IN TERPRETATION Susceptible Escherichia coli Meropenem INTERPRETATION Susceptible Escherichia coli Cefepime INTERPRETATION Susceptible Escherichia coli Ciprofloxacin INTERPRETATION Susceptible Escherichia coli Ceftazidime INTERPRETATION Susceptible Escherichia coli Ceftriaxone INTERPRETATION Susceptible Escherichia coli Piperacillin/Tazobactam INTERPRETATIO N Susceptible Escherichia coli Cephalexin INTERPRETATION Susceptible Escherichia coli Cefuroxime-axetil INTERPRETATION Susceptible Escherichia coli Cefdinir INTERPRETATION Susceptible Radha Hernandez NP LAB MICROBIOLOGY - GENERAL ORDER JAYME Final Result Performing Organization Address [facility]/ZIP Co de Phone Number [facility] Department [place] [address] * (ABNORMAL) Basic metabolic panel (12/02/2024 10:05 AM CDT) [facility] Signature Sodium 128(L) 135 - 145 mmol/L Potassium, pl 3.9 3.3 - 4.9 mmol/L [facility] Chloride 94(L) 97 - 110 mmol/L [facility] CO2 23 22 - 32 mmol/L [facility] Anion gap 11 2 - 15 mmol/L [facility] BUN 8 6 - 25 mg/dL [facility] Creatinine 0.73 0.60 - 1.10 mg/dL [facility] Glucose 91 70 - 199 mg/dL [facility] Comment: Interpretive Data Fasting glucose [...] interpretive data was last revised 2022. Calcium 9.5 8.5 - 10.3 mg/dL [facility] Blood 12/02/2024 10:0 5 AM CDT 12/02/2024 11:26 AM CDT Radha Hernandez NP LAB BLOOD ORDERABLES Final Resul t Performing Organization Address [facility] Co de Phone Number [facility] Department [place] [address] * ECG 12 lead (12/02/2024 9:41 AM CDT) [facility] Ventricular Rate EKG/Min 67 BPM [facility] Atrial Rate 67 BPM [facility] AZ-Interval (MSEC) 202 ms [facility] QRS-Interval (MSEC) 88 ms [facility] QT-Interval (MSEC) 404 ms [facility] QTc 426 ms [facility] P Mulga 97 degrees [facility] R Mulga -9 degrees [facility] T Mulga 60 degrees [facility] Diagnosis Normal sinus rhythm Moderate voltage criteria for LVH, may be normal variant ( R in aVL , [place] product ) Borderline ECG When compared with ECG of 08-NOV-2024 10:21, Mulga has shifted right Confirmed by JONNA YI M.D ([id number]) on 12/02/2024 8:44:09 PM [facility] 12/02/2024 9:41 AM CDT 12/02/2024 8:44 PM CDT us Radha Hernandez DEPUTY HARBOR[employer]STER ECG ORDERABLES Final Result Performing Organization Address City/[facility]/ZIP Co de Phone Number [facility] * Hemoglobin A1c (11/06/2024 9:34 PM TEAM LEAD) [facility] Hgb A1C 5.5 4.0 - 5.6 % Estimated Average Glucose 111 mg/dL [facility] Comment: The ADA recommends reporting an estimated Average Glucose (eAG) with all Hemoglobin A1c results using the equation derived from a study of 507 normal and diabetic adults. Minority populations were underrepresented and children were not included. (Diabetes Care 2020; 43(S1): S66-S76). The eAG is not equivalent to a fasting glucose. Blood 11/06/2024 9:34 PM TEAM LEAD 11/06/2024 10:09 PM TEAM LEAD us [employer] DEPUTY HARBOR[employer] LAB BLOOD ORDERABLES Final Result [facility] Department [place] [address] * Lipid panel (07/05/2024 10:45 AM CDT) [...] 3. Otis Hernandez et al. CHARLIE Cardiol. 2019January 13;5(5):540-548. doi: [email or web address] [...] MD LAB BLOOD ORDERABLES Final Result COBY [id number] Dinah Guido Department [place] [address] from Last 3 Months or Most Recently Relevant to Health Maintenance Insurance MEDICARE MEDICARE [facility] MEDICARE [facility] Advance Directives For more information, please contact: [phone] Documents on File Type Date Recorded Patient Imaging Services Director Expl anation ADVANCE DIRECTIVE 11/15/2024 7:07 AM POWER OF IT APPLICATION ARCHITECT-MEDICAL ADVANCE DIRECTIVE 11/09/2024 1:19 PM VOIDE D DPOA ADVANCE DIRECTIVE 03/28/2018 12:00 AM PALLAVI DOBBS [...] 11:05 AM 01/14/2018 1:10 PM Care Teams Counter Intelligence Technician Relationship Specialty Start Date End Date Neli Moura DO [address] [place] [address] [place] [address] PCP - General Family Medicine 03/26/24
--- OUTSIDE RECORDS SUMMARY | 2025-02-25 17:02 | XMS_ITS | Referral Summary ---
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 Off Saw Operator Pipe Blanks Name Role Phone Shruthi Mourazapilar Martin DO Primary Care Provider + Encounters Date Type Department Care Team Description 02/22/2025 Telephone [facility] Medical Group Cardiology [address] [place] [address] [address] [place] [phone] Alfredo Pedraza MD 01/24/2025 Telephone [facility] Cardiology [address] [facility] [address] [place] [phone] Alfredo Pedraza MD 01/24/2025 1:30 PM CDT Office Visit [facility] Medical [facility] Cardiology [address] [place] [phone] Alfredo Pedraza MD Coronary artery disease involving [place] coronary artery of [place] heart with angina pectoris (Primary Dx); PAF (paroxysmal atrial fibrillation) (HCC); Resistant hypertension; History of carotid artery disease 01/11/2025 Telephone [facility] Surgery [address] [place] [address] Medical Office Building [address] [place] [phone] Dayana Neal RMA Scheduling Appointments 12/29/2024 Documentation [facility] Surgery [address] [place] [address] Medical Office Building [address] [place] [phone] Carolina Maria NP 12/29/2024 8:10 PM CDT Anesthesia Event [facility] Operating Room [address] [place] [phone] Delbert Rivera MD PhD Radha Hernandez NP 12/29/2024 6:31 AM CDT - 12/29/2024 12:00 PM CDT Hospital Encounter [facility] Operating Room [address] [place] [phone] Boby Hernandez MD Stenosis of left carotid artery Discharge Disposition: Discharge to home or self care 12/20/2024 10:00 AM CDT Office Visit [facility] Medical Group Cardiology [address] [place] [phone] Alfredo Pedraza MD Hx of non-ST elevation myocardial infarction (NSTEMI) (Primary Dx); Hypertensive heart disease with heart failure (HCC); Stenosis of left carotid artery; Mixed hyperlipidemia; Coronary artery disease involving [place] coronary artery of [place] heart with angina pectoris; PAF (paroxysmal atrial fibrillation) (HCC); History of carotid artery disease 12/17/2024 Orders Only [facility] Surgery [address] [place] [address] Medical Office Building [address] [place] [phone] Boby Hernandez MD 12/07/2024 Telephone [facility] Surgery [address] [place] [address] [place] [phone] Carolina Maria NP 12/02/2024 8:00 AM CDT Pre-Admission Testing [facility] for Preoperative Assessment [facility] ([facility]) [address] [place] [phone] Preoperative testing (Primary Dx) from Last 3 Months Allergies No known active allergies Medications busPIRone (BUSPAR) 10 mg tabletIndications: Generalized Anxiety Disorder Take 1 tablet (10 mg total) by mouth 2 (two) times a day Active levothyroxine (SYNTHROID, LEVOTHROID) 88 mcg tabletIndications: hypothyroidism Take 1 tablet (88 mcg total) by mouth forming fixer before breakfast Active aspirin 81 mg tabletIndications: [...] every 12 (twelve) hours 60 tablet 11 5 026 Active guanFACINE (TENEX) 1 mg tablet Take 1 tablet (1 mg total) by mouth nightly 30 tablet 11 5 Active albuterol (PROAIR RESPICLICK) 90 mcg/actuation inhaler Inhale 2 puffs every 6 (six) hours as needed for wheezing 1 each 5 Active linaCLOtide (LINZESS) 290 mcg capsuleIndications :Constipation Predominant Irritable Bowel Syndrome Take 1 capsule (290 mcg total) by mouth daily before breakfast 30 capsule 3 5 Active losartan (COZAAR) 100 mg tablet Take 1 tablet (100 mg total) by mouth daily 30 tablet 3 5 Active bisacodyl EC (DULCOLAX EC) 5 mg [...] by mouth daily 30 tablet 11 5 Active ondansetron ODT (ZOFRAN-ODT) 4 mg disintegrating [...] times a day 270 tablet 3 5 04/07/2 026 Active amLODIPine (NORVASC) 5 mg tablet [...] 11/11/2024 Assessment & Plan (11/11/2024 11:15 AM COMPANY CONTROLLER): 11/11 patient had me examine her left wrist (photo loaded in EPIC) stated wound occurred due to EMS poking site with a pen on accident site is bruised with a scab present, no drainage or warmth noted to the site. Mood disorder 11/06/2024 Assessment & Plan (11/07/2024 10:50 AM COMPANY CONTROLLER): Home regimen: buspar, guanfacine (held while NPO) 11/07 resumed Chronic pain 11/06/2024 Assessment & Plan (11/10/2024 8:07 AM COMPANY CONTROLLER): Home regimen: percocet 10/325 QID PRN, last dispensed 11/01 for #56 tabs --- hold on oral narcotics until diet advanced as not to cloud picture iso SBO 11/10 resumed Hypothyroidism 11/06/2024 Assessment & Plan (11/07/2024 10:49 AM COMPANY CONTROLLER): Home regimen: levothyroxine (held while NPO) - plan to initiate IV dosing if NPO >5d per [facility] policy 11/07 resumed Discharge planning issues 11/06/2024 Assessment & Plan (11/11/2024 11:22 AM COMPANY CONTROLLER): 11/06 barrier to discharge: PO tolerance, ADD [...] 11/06/2024 Assessment & Plan (11/06/2024 11:09 AM COMPANY CONTROLLER): 11/06 epic dispense report reviewed and updated in ADMISSIONS tab At risk for malnutrition 11/06/2024 Assessment & Plan (11/10/2024 8:07 AM COMPANY CONTROLLER): 11/06 Body mass index is 26.26 kg/m [...] 11/05/2024 Assessment & Plan (11/11/2024 11:14 AM COMPANY CONTROLLER): PSHx: 1990s: cholecystectomy, KELLY 10/2023 OSH: SBR [...] 09/28/2024 Assessment & Plan (11/10/2024 12:02 PM COMPANY CONTROLLER): TTE 07/06/2024: EF 70%, G1DD Home regimen: [...] titration Assessment & Plan (09/28/2024 9:18 AM COMPANY CONTROLLER): - Diastolic dysfunction w/o CHF. Diastolic function: stage I - impaired relaxation LVEF: >70% Asthma 09/28/2024 Assessment & Plan (11/10/2024 12:06 PM COMPANY CONTROLLER): Albuterol PRN --- plan to discharge with new inhaler (ordered), as patient has not used hers at home, f/u with PCP (CM facilitating) Assessment & Plan (09/28/2024 9:29 AM COMPANY CONTROLLER): - Continue home albueterol and advair - IS - OOB when able PAF (paroxysmal atrial fibrillation) 05/12/2023 Assessment & Plan (12/29/2024 8:21 AM CDT): On Eliquis at home. 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 Resistant hypertension 03/22/2019 Assessment & Plan (12/29/2024 9:26 AM CDT): BP runs 180-200/70s - Continue home regimen - Nicardipine gtt prn SBP goal 110-160 Assessment & Plan (11/06/2024 11:02 AM COMPANY CONTROLLER): See DIASTOLIC DYSFUNCTION parameter for management Assessment & Plan (09/28/2024 9:22 AM COMPANY CONTROLLER): - Home regimen: hydralazine, losartan, nebivolol, spirnolactone - VS Q2 hrs and PRN - OU - resume home meds as able Rheumatoid arthritis involving multiple sites History of carotid artery disease 10/14/2017 Assessment & Plan (11/10/2024 8:10 AM COMPANY CONTROLLER): Scheduled for left carotid endarterectomy 11/12 with [...] agrees. Assessment & Plan (09/23/2017 1:48 PM COMPANY CONTROLLER): Negative Lexiscan nuclear stress test back in August 2017. She does have strong family history for coronary artery disease. Will re-evaluate next visit. Evidence of type 1 diastolic dysfunction on echocardiogram. Mixed hyperlipidemia 09/23/2017 Assessment & Plan (02/16/2018 9:11 AM CDT): Continue Lipitor. Assessment & Plan (12/29/2017 1:10 PM CDT): Continue Lipitor 40 mg p.o. daily. Assessment & Plan (09/23/2017 1:49 PM COMPANY CONTROLLER): L continue Lipitor. Arthralgia of ankle 07/04/2017 [...] SSI Assessment & Plan (11/07/2024 10:47 AM COMPANY CONTROLLER): Last A1c 06/2024: 5.6 Home regimen: none Current diet: NPO SSI while inpatient, goal BG <180 A1c 11/06: 5.5 Assessment & Plan (09/28/2024 9:20 AM COMPANY CONTROLLER): HgbA1c 5.6, not on any home medications - Monitor glucose with daily labs - Carb consistent diet when eating Osteoarthritis 05/13/2011 Trochanteric bursitis 01/12/2011 Overview (12/26/2017): Description: Trochanteric Bursitis Rheumatoid arthritis 01/12/2011 Overview (12/26/2017): Description: Rheumatoid Arthritis Assessment & Plan (11/06/2024 10:59 AM COMPANY CONTROLLER): Home regimen: none Irritable bowel syndrome 11/03/2010 Assessment & Plan (11/10/2024 12:04 PM COMPANY CONTROLLER): Home regimen: linzess, mag oxide (held while NPO) - resume home regimen when tolerating regular diet --- patient requesting to resume linzess 11/10 (ordered for AM dosing 11/11) at higher rate than previously taking, reports that PCP had intended to do so as needed, CM assisting with obtaining PCP appt on discharge Gastroesophageal reflux disease 11/03/2010 Assessment & Plan (11/07/2024 10:49 AM COMPANY CONTROLLER): Home regimen: protonix - IV formulation while NPO - resume home formulation when tolerating regular diet Pseudophakia 08/23/2010 Coronary artery disease invo lving [place] coronary artery of [place] heart with angina pectoris Assessment & Plan (12/29/2024 8:32 AM CDT): History of JOSE- megatron 3.5 x 32 covering part of mid and then proximal RCA and megatron 3.5 x 8 covering ostial RCA and overlapping the distal RCA stent.) 07/06/24. - Continue asa/ statin Assessment & Plan (11/10/2024 8:08 AM COMPANY CONTROLLER): S/p JOSE to RCA x2 (06/2024) Home regimen: asa, plavix (last doses 11/04), lipitor, ezetimibe TTE 07/06/2024: EF 70%, G1DD 11/06 start cangrelor infusion while NPO 11/07-11/10 passed small bowel challenge, see alt parameter for diet modifications, continue cangrelor until diet tolerance declared Assessment & Plan (09/28/2024 9:15 AM COMPANY CONTROLLER): S/p RCA stenting 07/08 - continue ASA, [...] 11/19/2024 Assessment & Plan (09/28/2024 9:20 AM COMPANY CONTROLLER): 09/28: s/p Left carotid endarterectomy - OU, [...] (06/25/2019): Added automatically from request for surgery [id number] Chest pain 06/25/2019 10/29/2021 Overview (06/25/2019): Added automatically from request for surgery [id number] Essential hypertension, malignant 09/23/2017 03/22/2019 Assessment & Plan (02/16/2018 9:10 AM CDT): Blood pressure is much better controlled. Continue current treatment. Assessment & Plan (12/29/2017 1:10 PM CDT): Blood pressure well controlled. Continue current treatment. Assessment & Plan (09/23/2017 1:48 PM COMPANY CONTROLLER): Blood pressure is controlled today however patient states that her blood pressure runs high at home. I will bring patient 2 weeks and re-evaluate her blood pressure as well as re-evaluate her blood pressure log. I asked the patient also to bring her blood pressure machine to compare her home reading with our readings here. Immunizations Immunization Administration Dates Next Due COVID-19 mRNA (Molecular Imaging) 0.3 m L (30 mcg) vaccine (12 [...] drink = 0.6 oz pur e alcohol) [facility] Utilities Answer Date Recorded In the past 12 months has th e electric, gas, oil, or water company [...] How often do you attend chur or buddhist services? More than 4 times per year 11/09/2024 Do you belong to any clubs o r organizations such as spiritism groups, unions, fraternal or athletic groups, or [...] Date Recorded PHQ-2 Total Score 0 11/09/2024 [facility] - Occupational Stress Questionnaire Answer Date Recorded [...] any time in the past 12 m [facility], were you homeless or living in a [place] health care facility (including now)? No 11/09/2024 Personal Safety Answer Date Recorded Have you ever been in or are you currently in a harmful physical or emotional relationship or is someone making you feel afraid or unsafe? Patient unable to answer 12/29/2024 Comments No Sex and Gender Information Value Date Recorded Sex Assigned at Not on file Legal Sex Female 2:12 AM COMPANY CONTROLLER Gender Identity Not on file Sexual Orientation [...] 01/24/2025 1:31 PM CDT Plan of Treatment Not on file Medical Devices Implanted Type Area Asphalt Smoother Device Identifier Shelf Expiration Date Model / Serial / Lot [employer] Stent Coronary Drug Eluting Rapid Exchange Synergy Megatron 3.32q93ob Koi Chromium [id number] - [id number] Implanted:Qty: 1 on 07/06/2024 by Alfredo Pedraza MD at [facility] [employer] [facility] 11/19/2025 [id number] / / [id number] [employer] Stent Drug Eluting S Megatron 3.50x8mm [id number] - [id number] Implanted:Qty: 1 on 07/06/2024 by Alfredo Pedraza MD at [facility] [employer] [facility] 07/07/2025 [id number] 350 / / [id number] [facility] examples Angio-Seal Vip 6fr Closere Device [id number] - [id number] Implanted:Qty: 1 on 07/06/20[id number] / / Procedures Procedure Name Priority Date/Time [...] testing HEMOGLOBIN A1C Routine 11/06/2024 9:34 PM COMPANY CONTROLLER LIPID PANEL Timed 07/05/2024 10:45 AM CDT from Last 3 Months or Most Recently Relevant to Health Maintenance Results * POCT glucose (12/29/2024 7:36 AM CDT) Glucose, POC 142 70 - 199 mg/dL Blood 12/29/2024 7:36 AM CDT 12/29/2024 7:36 AM CDT Boby Hernandez MD LAB POCT ORDERABLES - DEVICE Final Result Performing Organization Address [facility] Co de Phone Number [facility] [place] [address] * (ABNORMAL) Sodium level (12/29/2024 7:35 AM CDT) Sodium 126(L) 135 - 145 mmol/L Blood 12/29/2024 7:35 AM CDT 12/29/2024 7:41 AM CDT Lenora Calderon YARN HANDLER LAB BLOOD ORDERABLES Fi nal Result Performing Organization Address [facility] Co de Phone Number [facility] Department [place] [address] * REFLEXIVE URINE CULTURE (12/21/2024 12:22 PM CDT) Urine culture [facility] Comment:NO CULTURE INDICATED 12/21/2024 12:2 2 PM CDT 12/21/2024 12:23 PM CDT Carolina Maria YARN HANDLER LAB MICROBIOLOGY - GENER AL ORDERABLES Final Result Performing Organization Address [facility] Co de Phone Number [facility] [address] [place] [address] * Urinalysis reflex to microscopic and culture [...] Sam Nitrites, ur NEGATIVE NEGATIVE [facility] Leukocyte esterase, ur NEGATIVE NEGATIVE [facility] WBC, ur NONE SEEN < OR = 5 /HPF [facility] RBC, ur NONE SEEN < OR = 2 /HPF [facility] Epithelial cells, squamous, ur NONE SEEN < OR = 5 /HPF [facility] Bacteria, ur, quant NONE SEEN NONE SEEN /HPF [facility] Hyaline cast NONE SEEN NONE SEEN /LPF [facility] Note [facility] Comment: This urine was analyzed for the presence of WBC, RBC, bacteria, casts, and other formed elements. Only those elements seen were reported. Urine 12/21/2024 12:2 2 PM CDT 12/21/2024 12:23 PM CDT Carolina Maria NP LAB MICROBIOLOGY - GENER AL ORDERABLES Final Result Performing Organization Address [facility] Co de Phone Number [facility] [address] [place] [address] * TYPE AND SCREEN 14 DAY (12/02/2024 10:05 AM CDT) Pathologist [facility] Caitie, indirect Negative ABO Rh O Positive [facility] Blood 12/02/2024 10:0 5 AM CDT 12/02/2024 11:40 AM CDT Narrative [facility] - 12/02/2024 12:38 PM CDT Is this test being ordered in advance for a procedure?->Yes Expected date of procedure:->12/08/24 Has the patient been transfused in the past 3 months?->No Has the patient been in the past 3 months?->No Radha Hernandez NP LAB BLOOD BANK TEST ORDERABLES F inal Result Performing Organization Address City/[facility]/ZIP Co de Phone Number [facility] Department [place] [address] * eGFR (12/02/2024 10:05 AM CDT) Pathologist [facility] eGFR 83 >=60 mL/min/1. 73 m2 Comment: [...] NP LAB BLOOD ORDERABLES Final Resul t [facility] Department [place] [address] * (ABNORMAL) Differential, auto (12/02/2024 10:05 AM CDT) [facility] Neutrophil abs 7.3(H) 1.5 - 6.5 K/cumm Imm gran abs 0.0 0.0 - 0.1 K/cumm [facility] Lymphocyte abs 2.7 0.8 - 3.3 K/cumm [facility] Monocyte abs 0.6 0.2 - 0.8 K/cumm [facility] Eosinophil abs 0.2 0.0 - 0.5 K/cumm [facility] Basophil abs 0.1 0.0 - 0.1 K/cumm [facility] Neutrophil pct 66.5 % [facility] Comment: Interpretive Data Percent cell count reference ranges are not reported, since discordance with absolute values may lead to misinterpretation of CBC data. Current Interpretive Data was last revised on 2017. Imm gran pct 0.4 % [facility] Comment: Interpretive Data Percent cell count reference ranges are not reported, since discordance with absolute values may lead to misinterpretation of CBC data. Current Interpretive Data was last revised on 2017. Lymphocyte pct 24.5 % [facility] Comment: Interpretive Data Percent cell count reference ranges are not reported, since discordance with absolute values may lead to misinterpretation of CBC data. Current Interpretive Data was last revised on 2017. Monocyte pct 5.8 % [facility] Comment: Interpretive Data Percent cell count reference ranges are not reported, since discordance with absolute values may lead to misinterpretation of CBC data. Current Interpretive Data was last revised on 2017. Eosinophil pct 2.1 % [facility] Comment: Interpretive Data Percent cell count reference ranges are not reported, since discordance with absolute values may lead to misinterpretation of CBC data. Current Interpretive Data was last revised on 2017. Basophil pct 0.7 % [facility] Comment: Interpretive Data Percent cell count reference ranges are not reported, since discordance with absolute values may lead to misinterpretation of CBC data. Current Interpretive Data was last revised on 2017. Blood 12/02/2024 10:0 5 AM CDT 12/02/2024 11:26 AM CDT us Radha Hernandez NP LAB BLOOD ORDERABLES Final Resul t [facility] Department [place] [address] * (ABNORMAL) Urinalysis reflex to microscopic and culture Urine, clean voided (12/02/2024 10:05 AM CDT) Color, ur Straw Yellow Clarity, ur Cloudy(A) Clear [facility] Specific gravity, ur 1.008 1.003 - 1.030 [facility] pH, urine 6.5 [facility] Comment: Interpretive Data U rine pH is affected by diet, medications, systemic acid-base disturbances, and renal tubular function. pH may affect urinary stone formation. For example, urine pH below 6.0 may help reduce the tendency for calcium phosphate stones and pH greater than 6.0 may reduce the tendency for uric acid stone formation. Source: [facility] Current Interpretive Data was last revised on 2017 Protein, ur ql Negative Negative [facility] Glucose, ur ql Negative Negative [facility] Ketones, ur Negative Negative [facility] Bilirubin, ur Negative Negative [facility] Blood, ur Negative Negative [facility] Urobilinogen, ur <2.0 <2.0 mg/dL [facility] Nitrite, ur Positive(A) Negative [facility] Leukocyte esterase, ur 3+(A) Negative [facility] UA reflex comment Reflex to microscopic UA will be performed. [facility] Urine, clean voided 12/02/2024 10:05 AM CDT 12/02/2024 11:26 AM CDT us Radha Hernandez NP LAB MICROBIOLOGY - GENERAL ORDER JAYME Final Result [facility] Department [place] [address] * (ABNORMAL) CBC with auto differential (12/02/2024 10:05 AM CDT) WBC 11.0(H) 3.8 - 9.9 K/cumm Hgb 13.0 11.9 - 15.5 g/dL [facility] Hct 36.5 35.6 - 45.5 % [facility] Plt 288 150 - 400 K/cumm [facility] MPV 9.6 9.1 - 12.3 fL [facility] RBC 4.05 3.90 - 5.20 M/cumm [facility] MCV 90.1 81.3 - 96.4 fL [facility] MCH 32.1 27.1 - 33.3 pg [facility] MCHC 35.6 32.3 - 35.7 g/dL [facility] RDW CV 12.8 11.1 - 14.9 % [facility] RDW SD 42.0 35.7 - 48.1 fL [facility] NRBC abs 0.00 0.00 - 0.01 K/cumm [facility] Blood 12/02/2024 10:0 5 AM CDT 12/02/2024 11:26 AM CDT Radha Hernandez NP LAB BLOOD ORDERABLES Final Resul t Performing Organization Address [facility] de Phone Number [facility] Department [place] [address] * (ABNORMAL) Urinalysis, microscopic only (12/02/2024 10:05 AM CDT) WBC, ur >50(A) 0 - 5 /HPF RBC, ur 3-5(A) 0 - 2 /HPF [facility] Epithelial cells, squamous, ur 1-5 0 - 5 /HPF [facility] Epithelial cells, transitional, ur 1-5 0 - 0 /HPF [facility] Bacteria, ur 1+(A) [facility] Mucous, ur Present(A) [facility] Culture Reflex Comment Reflex to urine culture will be performed. [facility] Urine, clean voided 12/02/2024 10:05 AM CDT 12/02/2024 11:26 AM CDT Radha Hernandez NP LAB URINE ORDERABLES Final Resul t Performing Organization Address [facility] de Phone Number [facility] Department [place] [address] * (ABNORMAL) Urine culture Urine, clean voided (12/02/2024 10:05 AM CDT) Report Final Report: Greater than or equal to 100,000 colonies/mL of Escherichia coli (.) Organism ESCHERICHIA COLI [facility] Urine, clean voided 12/02/2024 10:05 AM CDT 12/02/2024 12:21 PM CDT Narrative [facility] - 12/04/2024 10:09 AM CDT Urine culture reflexed based upon urinalysis results. Testing performed by [facility] Microbiology Laboratory ([phone]) Organism Antibiotic Method Susceptibility Escherichia coli Ampicillin [...] INTERPRETATION Susceptible Escherichia coli Cefdinir INTERPRETATION Susceptible us Radha Hernandez NP LAB MICROBIOLOGY - GENERAL ORDER JAYME Final Result [facility] Department [place] [address] * (ABNORMAL) Basic metabolic panel (12/02/2024 10:05 AM CDT) [facility] Sodium 128(L) 135 - 145 mmol/L Potassium, pl 3.9 3.3 - 4.9 mmol/L [facility] Chloride 94(L) 97 - 110 mmol/L [facility] CO2 23 22 - 32 mmol/L [facility] Anion gap 11 2 - 15 mmol/L [facility] BUN 8 6 - 25 mg/dL [facility] Creatinine 0.73 0.60 - 1.10 mg/dL [facility] Glucose 91 70 - 199 mg/dL [facility] Comment: Interpretive Data Fasting glucose >/= [...] 2022. Calcium 9.5 8.5 - 10.3 mg/dL [facility] Blood 12/02/2024 10:0 5 AM CDT 12/02/2024 11:26 AM CDT Radha Hernandez NP LAB BLOOD ORDERABLES Final Resul t Performing Organization Address [facility] de Phone Number [facility] Department [place] [address] * ECG 12 lead (12/02/2024 9:41 AM CDT) Pathologist [facility] Ventricular Rate EKG/Min 67 BPM [facility] Atrial Rate 67 BPM [facility] PA-Interval (MSEC) 202 ms [facility] QRS-Interval (MSEC) 88 ms [facility] QT-Interval (MSEC) 404 ms [facility] QTc 426 ms [facility] P [place] 97 degrees [facility] R [place] -9 degrees [facility] T [place] 60 degrees [facility] Diagnosis Normal sinus rhythm Moderate voltage criteria for LVH, may be normal variant ( R in aVL , Dillon product ) Borderline ECG When compared with ECG of 08-NOV-2024 10:21, [place] has shifted right Confirmed by JONNA YI M.D ([id number]) on 12/02/2024 8:44:09 PM [facility] 12/02/2024 9:41 AM CDT 12/02/2024 8:44 PM CDT Radha Hernandez NP ECG ORDERABLES Final Result Performing Organization Address [facility] de Phone Number [facility] * Hemoglobin A1c (11/06/2024 9:34 PM COMPANY CONTROLLER) Pathologist [facility] Hgb A1C 5.5 4.0 - 5.6 % Estimated Average Glucose 111 mg/dL [facility] Comment: The ADA recommends reporting an estimated Average Glucose (eAG) with all Hemoglobin A1c results using the equation derived from a study of 507 normal and diabetic adults. Minority populations were underrepresented and children were not included. (Diabetes Care 2020; 43(S1): S66-S76). The eAG is not equivalent to a fasting glucose. Blood 11/06/2024 9:34 PM COMPANY CONTROLLER 11/06/2024 10:09 PM COMPANY CONTROLLER us Analy Solis NP LAB BLOOD ORDERABLES Final Result [facility] Department [place] [address] * Lipid panel (07/05/2024 10:45 AM CDT) [...] Saucedo MD LAB BLOOD ORDERAB[place] [id number] [address] Department [place] [address] from Last 3 Months or Most Recently Relevant to Health Maintenance Insurance MEDICARE MEDICARE [facility] MEDICARE [facility] Advance Directives For more information, please contact: [phone] Documents on File Type Date Recorded 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
--- OUTSIDE RECORDS SUMMARY | 2025-02-25 17:02 | XMS_ITS | Encounter Summary ---
Author Organization [facility] Care Team Providers Care Hydrodynamics Professor Name Role Phone Don Alejandre MD Primary Care Provider [phone] Alona Jones MD Primary Care Provider Attila Pemberton MD Primary Care Provider Kathleen Garcia YARD DEMURRAGE CLERK Primary Care Provider [phone] Keerthi Ace YARD DEMURRAGE CLERK Primary Care Provider [phone] Neli Moura DO Primary Care Provider + Encounter Details Date Type Department Care Team (Latest Contact Info) Description 04/13/2018 Orders Only [facility]INCONV Provider, MD [place] [address] [place] [id number] Social History Tobacco Use Types Packs/Day Years Used Date Smoking Tobacco: Never Assessed Comments Unknown Sex and Gender Information Value Date Recorded Sex Assigned at Not on file 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 us Historical Provider Final Res ult documented in this encounter Visit Diagnoses Not on filedocumented in this encounter Care Teams Hydrodynamics Professor Relationship Specialty Start Date End Date Don Alejandre MD [address] [place] [address] PCP - General Family Practice 02/16/18 06/13/19 Alona Jones MD [address] [place] [address] PCP - General Family Medicine 06/14/19 11/12/20 Attila Pemberton MD [address] [place] [address] PCP - General Family Practice 11/13/20 12/13/21 Kathleen Garcia NP [address] [place] [address] PCP - General Nurse Practitioner 12/14/21 04/02/23 Keerthi Ace NP [address] [place] [address] PCP - General Family Medicine 04/03/23 03/25/24 Neli Moura DO [address] [place] [address] [place] [address] PCP - General Family Medicine 03/26/24 documented as of this encounter
--- OUTSIDE RECORDS SUMMARY | 2025-02-25 17:03 | XMS_ITS | Encounter Summary ---
Author Organization [facility] Healthcare Address [address] [place] [address] Care Team Providers Care Immigration Case Manager Name Role Phone MouraNeli seals Veronica DERAS Primary Care Provider + Encounter Details Date Type Department Care Team (Late st Contact Info) Description 02/22/2025 Telephone [facility] Medical Group Cardiology [address] [place] [address] Alfredo Pedraza MD [address] [place] [id number] Social History Tobacco Use Types Packs/Day Years Used Date Smoking Tobacco: Never Smokeless Tobacco: Never Alcohol Use Standard Drinks/Week Comments No 0 (1 standard drink = 0.6 oz pur e alcohol) [facility] Utilities Answer Date Recorded In the past 12 months has [employer], gas, oil, or water [employer] threatened to shut off services in your [...] How often do you attend chur or amish services? More than 4 times per year 11/09/2024 Do you belong to any clubs o r organizations such as taoism groups, unions, fraternal or athletic groups, or [...] Date Recorded PHQ-2 Total Score 0 11/09/2024 [facility] of Occupat ional Health - Occupational Stress [...] any time in the past 12 m [facility], were you homeless or living in a usp (including now)? No 11/09/2024 Personal Safety Answer Date Recorded Have you ever been in or are you currently in a harmful physical or emotional relationship or is someone making you feel afraid or unsafe? 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 Pt states she was watching tv and she felt her heart pounding/racing which didn't last longer than 5 minutes. Pt states her BP did come down after taking usual dose of hydralazine, but HR was 111 andwent up. I asked pt to take BP and HR while on the phone 127/68 88 Pt states she's been having these episodes frequently where she feels her heart rate will feel likeits racing, and she wonders if she needs to be back on bystolic for this or not. She is requesting to be seen sooner than 03/28. Explained JF wanted to see her 6 weeks from last appt, and I think her appt she has scheduled is sufficient, but patient is strongly requesting a sooner appt with Dr. Pedraza if there is any available. Informed her I will send to MA in to see about getting pt moved up or not. She verbalized understanding. * Telephone Encounter - Marcie Napier - 02/22/2025 2:58 PM CDT Pt states yesterday she felt her heart racing while sitting down. She did not check her BP or HR. Today she felt her heart racing again while sitting down. She checked her BP around 2 pm and it was 180/64 HR 102. After checking her BP she took a tablet of Hydralazine. At 2:45 pm she rechecked her BP and it was 152/65 HR 111. Reports no symptoms. Requesting call back to discuss. Contact: documented in this encounter Plan of Treatment Not on file documented as of this encounter Visit Diagnoses Not on filedocumented in this encounter Care Teams Immigration Case Manager Relationship Specialty Start Date End Date Neli Moura DO [address] [place] [address] DR RAHMAN [address] [place] [address] PCP - General Family Medicine 03/26/24 documented as of this encounter
--- NOTE | 2025-02-25 19:03 | ECG_ITS ---
Test Date: 2025-02-25 19:47:10 Measurements Intervals [place] Rate: 83 P: 65 VT: 178 QRS: -34 QRSD: 86 T: 46 QT: 362 QTc: 428 Interpretive Statements SINUS RHYTHM WITH OCCASIONAL SUPRAVENTRICULAR PREMATURE COMPLEXES LEFT AXIS DEVIATION VOLTAGE CRITERIA FOR LVH MINIMAL Q WAVES- HIGH LATERAL LEADS BORDERLINE ST ABNORMALITY- LATERAL LEADS BASELINE ARTIFACT- I, II, III, AVR, AVL, AVF BORDERLINE ECG Compared to ECG 11/04/2024 22:38:21 NO SIGNIFICANT CHANGE Electronically Signed On 02-25-2025 20:02:01 CDT by Jasvir Steele D.O.
[2025-02-25] MEDS: MECLIZINE HCL 25 MG TABLET PO ×2 (19:19→23:12)
[2025-02-25] MEDS: oxyCODONE/ACETAMINOPHEN (*CRX) 10-325 MG TABLET 1 TAB PO (19:19)
--- OUTSIDE RECORDS SUMMARY | 2025-02-25 19:29 | XMS_ITS | Referral Summary ---
Author Organization [facility] Address [address] [place] [address] Care Team Providers Care Home Administrator Name Role Phone Shruthi Mourazapilar Martin DO Primary Care Provider + Encounters Date Type Department Care Team Description 02/22/[address] [facility] Medical Group Cardiology [address] [place] [address] [address] [place] [phone] Alfredo Pedraza MD 01/24/2025 Telephone [facility] Cardiology [address] [place] [phone] Alfredo Pedraza MD 01/24/2025 1:30 PM CDT Office Visit 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 (Primary Dx); PAF (paroxysmal atrial fibrillation) (HCC); Resistant hypertension; History of carotid artery disease 01/11/2025 Telephone [facility] Surgery [address] [place] [address] Medical Office Building [address] [place] [phone] Dayana Neal RMA Scheduling Appointments 12/29/2024 Documentation [facility] Surgery [address] [place] [address] Medical Office Building [address] [place] [phone] Carolina Maria NP 12/29/2024 8:10 PM CDT Anesthesia Event [facility] Operating Room [address] [place] [phone] Delbert Rivera MD PhD Radha Hernandez NP 12/29/2024 6:31 AM CDT - 12/29/2024 12:00 PM CDT Hospital Encounter [facility] Operating Room [address] [place] [phone] Boby Hernandez MD Stenosis of left carotid artery Discharge Disposition: Discharge to home or self care 12/20/2024 10:00 AM CDT Office Visit 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; PAF (paroxysmal atrial fibrillation) (HCC); History of carotid artery disease 12/17/2024 Orders Only [facility] Surgery [address] [place] [address] Medical Office Building [address] [place] [phone] Boby Hernandez MD 12/07/2024 Telephone [facility] Surgery [address] [place] [address] [place] [phone] Carolina Maria NP 12/02/2024 8:00 AM CDT Pre-Admission Testing [facility] Preoperative [facility] ([facility]) [address] [place] [phone] Preoperative testing (Primary Dx) from Last 3 Months Allergies No known active allergies Medications busPIRone (BUSPAR) 10 mg tabletIndications: Generalized Anxiety Disorder Take 1 tablet (10 mg total) by mouth 2 (two) times a day Active levothyroxine (SYNTHROID, LEVOTHROID) 88 mcg tabletIndications: hypothyroidism Take 1 tablet (88 mcg total) by mouth research program manager before breakfast Active aspirin 81 mg tabletIndications: [...] 11/11/2024 Assessment & Plan (11/11/2024 11:15 AM GIFTED PROGRAM TEACHER): 11/11 patient had me examine her left wrist (photo loaded in EPIC) stated wound occurred due to EMS poking site with a pen on accident site is bruised with a scab present, no drainage or warmth noted to the site. Mood disorder 11/06/2024 Assessment & Plan (11/07/2024 10:50 AM GIFTED PROGRAM TEACHER): Home regimen: buspar, guanfacine (held while NPO) 11/07 resumed Chronic pain 11/06/2024 Assessment & Plan (11/10/2024 8:07 AM GIFTED PROGRAM TEACHER): Home regimen: percocet 10/325 QID PRN, last dispensed 11/01 for #56 tabs --- hold on oral narcotics until diet advanced as not to cloud picture iso SBO 11/10 resumed Hypothyroidism 11/06/2024 Assessment & Plan (11/07/2024 10:49 AM GIFTED PROGRAM TEACHER): Home regimen: levothyroxine (held while NPO) - plan to initiate IV dosing if NPO >5d per [facility] policy 11/07 resumed Discharge planning issues 11/06/2024 Assessment & Plan (11/11/2024 11:22 AM GIFTED PROGRAM TEACHER): 11/06 barrier to discharge: PO tolerance, ADD [...] 11/06/2024 Assessment & Plan (11/06/2024 11:09 AM GIFTED PROGRAM TEACHER): 11/06 epic dispense report reviewed and updated in ADMISSIONS tab At risk for malnutrition 11/06/2024 Assessment & Plan (11/10/2024 8:07 AM GIFTED PROGRAM TEACHER): 11/06 Body mass index is 26.26 kg/m [...] 11/05/2024 Assessment & Plan (11/11/2024 11:14 AM GIFTED PROGRAM TEACHER): PSHx: 1990s: cholecystectomy, KELLY 10/2023 OSH: SBR [...] Hx of non-ST elevation myocardial infarction (NS MNEG) 11/05/2024 Diastolic dysfunction 09/28/2024 Assessment & Plan (11/10/2024 12:02 PM GIFTED PROGRAM TEACHER): TTE 07/06/2024: EF 70%, G1DD Home regimen: [...] titration Assessment & Plan (09/28/2024 9:18 AM GIFTED PROGRAM TEACHER): - Diastolic dysfunction w/o CHF. Diastolic function: stage I - impaired relaxation LVEF: >70% Asthma 09/28/2024 Assessment & Plan (11/10/2024 12:06 PM GIFTED PROGRAM TEACHER): Albuterol PRN --- plan to discharge with new inhaler (ordered), as patient has not used hers at home, f/u with PCP (CM facilitating) Assessment & Plan (09/28/2024 9:29 AM GIFTED PROGRAM TEACHER): - Continue home albueterol and advair - IS - OOB when able PAF (paroxysmal atrial fibrillation) 05/12/2023 Assessment & Plan (12/29/2024 8:21 AM CDT): On Eliquis at home. 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 Resistant hypertension 03/22/2019 Assessment & Plan (12/29/2024 9:26 AM CDT): BP runs 180-200/70s - Continue home regimen - Nicardipine gtt prn SBP goal 110-160 Assessment & Plan (11/06/2024 11:02 AM GIFTED PROGRAM TEACHER): See DIASTOLIC DYSFUNCTION parameter for management Assessment & Plan (09/28/2024 9:22 AM GIFTED PROGRAM TEACHER): - Home regimen: hydralazine, losartan, nebivolol, spirnolactone - VS Q2 hrs and PRN - OU - resume home meds as able Rheumatoid arthritis involving multiple sites History of carotid artery disease 10/14/2017 Assessment & Plan (11/10/2024 8:10 AM GIFTED PROGRAM TEACHER): Scheduled for left carotid endarterectomy 11/12 with [...] agrees. Assessment & Plan (09/23/2017 1:48 PM GIFTED PROGRAM TEACHER): Negative Lexiscan nuclear stress test back in August 2017. She does have strong family history for coronary artery disease. Will re-evaluate next visit. Evidence of type 1 diastolic dysfunction on echocardiogram. Mixed hyperlipidemia 09/23/2017 Assessment & Plan (02/16/2018 9:11 AM CDT): Continue Lipitor. Assessment & Plan (12/29/2017 1:10 PM CDT): Continue Lipitor 40 mg p.o. daily. Assessment & Plan (09/23/2017 1:49 PM GIFTED PROGRAM TEACHER): L continue Lipitor. Arthralgia of ankle 07/04/2017 [...] SSI Assessment & Plan (11/07/2024 10:47 AM GIFTED PROGRAM TEACHER): Last A1c 06/2024: 5.6 Home regimen: none Current diet: NPO SSI while inpatient, goal BG <180 A1c 11/06: 5.5 Assessment & Plan (09/28/2024 9:20 AM GIFTED PROGRAM TEACHER): HgbA1c 5.6, not on any home medications - Monitor glucose with daily labs - Carb consistent diet when eating Osteoarthritis 05/13/2011 Trochanteric bursitis 01/12/2011 Overview (12/26/2017): Description: Trochanteric Bursitis Rheumatoid arthritis 01/12/2011 Overview (12/26/2017): Description: Rheumatoid Arthritis Assessment & Plan (11/06/2024 10:59 AM GIFTED PROGRAM TEACHER): Home regimen: none Irritable bowel syndrome 11/03/2010 Assessment & Plan (11/10/2024 12:04 PM GIFTED PROGRAM TEACHER): Home regimen: linzess, mag oxide (held while NPO) - resume home regimen when tolerating regular diet --- patient requesting to resume linzess 11/10 (ordered for AM dosing 11/11) at higher rate than previously taking, reports that PCP had intended to do so as needed, CM assisting with obtaining PCP appt on discharge Gastroesophageal reflux disease 11/03/2010 Assessment & Plan (11/07/2024 10:49 AM GIFTED PROGRAM TEACHER): Home regimen: protonix - IV formulation while NPO - resume home formulation when tolerating regular diet Pseudophakia 08/23/2010 Coronary artery disease invo lving telida coronary artery of telida heart with angina pectoris Assessment & Plan (12/29/2024 8:32 AM CDT): History of JOSE- megatron 3.5 x 32 covering part of mid and then proximal RCA and megatron 3.5 x 8 covering ostial RCA and overlapping the distal RCA stent.) 07/06/24. - Continue asa/ statin Assessment & Plan (11/10/2024 8:08 AM GIFTED PROGRAM TEACHER): S/p JOSE to RCA x2 (06/2024) Home regimen: asa, plavix (last doses 11/04), lipitor, ezetimibe TTE 07/06/2024: EF 70%, G1DD 11/06 start cangrelor infusion while NPO 11/07-11/10 passed small bowel challenge, see alt parameter for diet modifications, continue cangrelor until diet tolerance declared Assessment & Plan (09/28/2024 9:15 AM GIFTED PROGRAM TEACHER): S/p RCA stenting 07/08 - continue ASA, [...] 11/19/2024 Assessment & Plan (09/28/2024 9:20 AM GIFTED PROGRAM TEACHER): 09/28: s/p Left carotid endarterectomy - OU, [...] (06/25/2019): Added automatically from request for surgery [id number] Chest pain 06/25/2019 10/29/2021 Overview (06/25/2019): Added automatically from request for surgery [id number] Essential hypertension, malignant 09/23/2017 03/22/2019 Assessment & Plan (02/16/2018 9:10 AM CDT): Blood pressure is much better controlled. Continue current treatment. Assessment & Plan (12/29/2017 1:10 PM CDT): Blood pressure well controlled. Continue current treatment. Assessment & Plan (09/23/2017 1:48 PM GIFTED PROGRAM TEACHER): Blood pressure is controlled today however patient states that her blood pressure runs high at home. I will bring patient 2 weeks and re-evaluate her blood pressure as well as re-evaluate her blood pressure log. I asked the patient also to bring her blood pressure machine to compare her home reading with our readings here. Immunizations Immunization Administration Dates Next Due COVID-19 mRNA (CollabRx) 0.3 m L (30 mcg) vaccine (12 [...] drink = 0.6 oz pur e alcohol) [facility] Utilities Answer Date Recorded In the past [...] How often do you attend chur or zoroastrianism services? More than 4 times per year [...] Date Recorded PHQ-2 Total Score 0 11/09/2024 [facility] - Occupational Stress Questionnaire Answer Date Recorded [...] time in the past 12 m [address] [place], were you homeless or living in a long term (including now)? No 11/09/2024 Personal Safety Answer Date Recorded Have you ever been in or are you currently in a harmful physical or emotional relationship or is someone making you feel afraid or unsafe? Patient unable to answer 12/29/2024 Comments No Sex and Gender Information Value Date Recorded Sex Assigned at Not on file Legal Sex Female 2:12 AM GIFTED PROGRAM TEACHER Gender Identity Not on file Sexual Orientation [...] on file Medical Devices Implanted Type Area Inspector Of Weights And Measures Device Identifier Shelf Expiration Date Model / Serial / Lot Wamba Stent Coronary Drug Eluting Rapid Exchange Synergy Megatron 3.69x05eg Jamul Chromium [id number] - [id number] Implanted:Qty: 1 on 07/06/2024 by Alfredo Pedraza MD at [facility] Filtr[employer] [facility] 11/19/2025 [id number] / / [id number] Wamba Stent Drug Eluting S Megatron 3.50x8mm [id number] - [id number] Implanted:Qty: 1 on 07/06/2024 by Alfredo Pedraza MD at [facility] [employer] [facility] 07/07/2025 [id number] 350 / / [id number] [facility] Angio-Seal Vip 6fr Closere Device [id number] - [id number] Implanted:Qty: 1 on 07/06/2024 [facility] [id number] / / Procedures Procedure Name Priority Date/Time [...] testing HEMOGLOBIN A1C Routine 11/06/2024 9:34 PM GIFTED PROGRAM TEACHER LIPID PANEL Timed 07/05/2024 10:45 AM CDT from Last 3 Months or Most Recently Relevant to Health Maintenance Results * POCT glucose (12/29/2024 7:36 AM CDT) Glucose, POC 142 70 - 199 mg/dL Blood 12/29/2024 7:36 AM CDT 12/29/2024 7:36 AM CDT Boby Hernandez MD LAB POCT ORDERABLES - DEVICE Final Result Performing Organization Address [facility] Co de Phone Number [facility] [place] [address] * (ABNORMAL) Sodium level (12/29/2024 7:35 AM CDT) Sodium 126(L) 135 - 145 mmol/L Blood 12/29/2024 7:35 AM CDT 12/29/2024 7:41 AM CDT Lenora Calderon RADIOTELEPHONE OPERATOR LAB BLOOD ORDERABLES Fi nal Result Performing Organization Address [facility] Co de Phone Number [facility] Department [place] [address] * REFLEXIVE URINE CULTURE (12/21/2024 12:22 PM CDT) Urine culture [facility] Comment:NO CULTURE INDICATED 12/21/2024 12:2 2 PM CDT 12/21/2024 12:23 PM CDT Carolina Maria RADIOTELEPHONE OPERATOR LAB MICROBIOLOGY - GENER AL ORDERABLES Final Result Performing Organization Address [facility] Co de Phone Number [facility] [address] [place] [address] * Urinalysis reflex to microscopic and culture [...] AL ORDERABLES Final Result Performing Organization Address [facility] Co de Phone Number [facility] [address] [place] [address] * TYPE AND SCREEN 14 DAY (12/02/2024 10:05 AM CDT) Pathologist [facility] Caitie, indirect Negative ABO Rh O Positive [facility] Blood 12/02/2024 10:0 5 AM CDT 12/02/2024 11:40 AM CDT Narrative [facility] - 12/02/2024 12:38 PM CDT Is this test being ordered in advance for a procedure?->Yes Expected date of procedure:->12/08/24 Has the patient been transfused in the past 3 months?->No Has the patient been in the past 3 months?->No Radha Hernandez NP LAB BLOOD BANK TEST ORDERABLES F inal Result Performing Organization Address City/[facility]/ZIP Co de Phone Number [facility] Department [place] [address] * eGFR (12/02/2024 10:05 AM CDT) Pathologist [facility] eGFR 83 >=60 mL/min/1. 73 m2 Comment: [...] NP LAB BLOOD ORDERABLES Final Resul t [facility] Department [place] [address] * (ABNORMAL) Differential, auto (12/02/2024 10:05 AM CDT) [facility] Neutrophil abs 7.3(H) 1.5 - 6.5 K/cumm Imm gran abs 0.0 0.0 - 0.1 K/cumm [facility] Lymphocyte abs 2.7 0.8 - 3.3 K/cumm [facility] Monocyte abs 0.6 0.2 - 0.8 K/cumm [facility] Eosinophil abs 0.2 0.0 - 0.5 K/cumm [facility] Basophil abs 0.1 0.0 - 0.1 K/cumm [facility] Neutrophil pct 66.5 % [facility] Comment: Interpretive Data Percent cell count reference ranges are not reported, since discordance with absolute values may lead to misinterpretation of CBC data. Current Interpretive Data was last revised on 2017. Imm gran pct 0.4 % [facility] Comment: Interpretive Data Percent cell count reference ranges are not reported, since discordance with absolute values may lead to misinterpretation of CBC data. Current Interpretive Data was last revised on 2017. Lymphocyte pct 24.5 % [facility] Comment: Interpretive Data Percent cell count reference ranges are not reported, since discordance with absolute values may lead to misinterpretation of CBC data. Current Interpretive Data was last revised on 2017. Monocyte pct 5.8 % [facility] Comment: Interpretive Data Percent cell count reference ranges are not reported, since discordance with absolute values may lead to misinterpretation of CBC data. Current Interpretive Data was last revised on 2017. Eosinophil pct 2.1 % [facility] Comment: Interpretive Data Percent cell count reference ranges are not reported, since discordance with absolute values may lead to misinterpretation of CBC data. Current Interpretive Data was last revised on 2017. Basophil pct 0.7 % [facility] Comment: Interpretive Data Percent cell count reference ranges are not reported, since discordance with absolute values may lead to misinterpretation of CBC data. Current Interpretive Data was last revised on 2017. Blood 12/02/2024 10:0 5 AM CDT 12/02/2024 11:26 AM CDT us Radha Hernandez NP LAB BLOOD ORDERABLES Final Resul t [facility] Department [place] [address] * (ABNORMAL) Urinalysis reflex to microscopic and culture Urine, clean voided (12/02/2024 10:05 AM CDT) Color, ur Straw Yellow Clarity, ur Cloudy(A) Clear [facility] Specific gravity, ur 1.008 1.003 - 1.030 [facility] pH, urine 6.5 [facility] Comment: Interpretive Data U rine pH is affected by diet, medications, systemic acid-base disturbances, and renal tubular function. pH may affect urinary stone formation. For example, urine pH below 6.0 may help reduce the tendency for calcium phosphate stones and pH greater than 6.0 may reduce the tendency for uric acid stone formation. Source: [facility] Current Interpretive Data was last revised on 2017 Protein, ur ql Negative Negative [facility] Glucose, ur ql Negative Negative [facility] Ketones, ur Negative Negative [facility] Bilirubin, ur Negative Negative [facility] Blood, ur Negative Negative [facility] Urobilinogen, ur <2.0 <2.0 mg/dL [facility] Nitrite, ur Positive(A) Negative [facility] Leukocyte esterase, ur 3+(A) Negative [facility] UA reflex comment Reflex to microscopic UA will be performed. [facility] Urine, clean voided 12/02/2024 10:05 AM CDT 12/02/2024 11:26 AM CDT us Radha Hernandez NP LAB MICROBIOLOGY - GENERAL ORDER JAYME Final Result [facility] Department [place] [address] * (ABNORMAL) CBC with auto differential (12/02/2024 10:05 AM CDT) WBC 11.0(H) 3.8 - 9.9 K/cumm Hgb 13.0 11.9 - 15.5 g/dL [facility] Hct 36.5 35.6 - 45.5 % [facility] Plt 288 150 - 400 K/cumm [facility] MPV 9.6 9.1 - 12.3 fL [facility] RBC 4.05 3.90 - 5.20 M/cumm [facility] MCV 90.1 81.3 - 96.4 fL [facility] MCH 32.1 27.1 - 33.3 pg [facility] MCHC 35.6 32.3 - 35.7 g/dL [facility] RDW CV 12.8 11.1 - 14.9 % [facility] RDW SD 42.0 35.7 - 48.1 fL [facility] NRBC abs 0.00 0.00 - 0.01 K/cumm [facility] Blood 12/02/2024 10:0 5 AM CDT 12/02/2024 11:26 AM CDT Radha Hernandez NP LAB BLOOD ORDERABLES Final Resul t Performing Organization Address [facility] de Phone Number [facility] Department [place] [address] * (ABNORMAL) Urinalysis, microscopic only (12/02/2024 10:05 AM CDT) WBC, ur >50(A) 0 - 5 /HPF RBC, ur 3-5(A) 0 - 2 /HPF [facility] Epithelial cells, squamous, ur 1-5 0 - 5 /HPF [facility] Epithelial cells, transitional, ur 1-5 0 - 0 /HPF [facility] Bacteria, ur 1+(A) [facility] Mucous, ur Present(A) [facility] Culture Reflex Comment Reflex to urine culture will be performed. [facility] Urine, clean voided 12/02/2024 10:05 AM CDT 12/02/2024 11:26 AM CDT Radha Hernandez NP LAB URINE ORDERABLES Final Resul t Performing Organization Address [facility] de Phone Number [facility] Department [place] [address] * (ABNORMAL) Urine culture Urine, clean voided (12/02/2024 10:05 AM CDT) Report Final Report: Greater than or equal to 100,000 colonies/mL of Escherichia coli (.) Organism ESCHERICHIA COLI [facility] Urine, clean voided 12/02/2024 10:05 AM CDT 12/02/2024 12:21 PM CDT Narrative [facility] - 12/04/2024 10:09 AM CDT Urine culture reflexed based upon urinalysis results. Testing performed by [facility] Microbiology Laboratory ([phone]) Organism Antibiotic Method Susceptibility Escherichia coli Ampicillin [...] MICROBIOLOGY - GENERAL ORDER JAYME Final Result [facility] Department [place] [address] * (ABNORMAL) Basic metabolic panel (12/02/2024 10:05 AM CDT) [facility] Sodium 128(L) 135 - 145 mmol/L Potassium, pl 3.9 3.3 - 4.9 mmol/L [facility] Chloride 94(L) 97 - 110 mmol/L [facility] CO2 23 22 - 32 mmol/L [facility] Anion gap 11 2 - 15 mmol/L [facility] BUN 8 6 - 25 mg/dL [facility] Creatinine 0.73 0.60 - 1.10 mg/dL [facility] Glucose 91 70 - 199 mg/dL [facility] Comment: Interpretive Data Fasting glucose >/= [...] 2022. Calcium 9.5 8.5 - 10.3 mg/dL [facility] Blood 12/02/2024 10:0 5 AM CDT 12/02/2024 11:26 AM CDT Radha Hernandez NP LAB BLOOD ORDERABLES Final Resul t Performing Organization Address [facility] de Phone Number [facility] [place] [address] * ECG 12 lead (12/02/2024 9:41 AM CDT) Pathologist [facility] Ventricular Rate EKG/Min 67 BPM [facility] Atrial Rate 67 BPM [facility] CT-Interval (MSEC) [address] [facility] QRS-Interval (MSEC) [address] [facility] QT-Interval (MSEC) 404 ms [facility] QTc 426 ms [facility] P [place] 97 degrees [facility] R [place] -9 degrees [facility] T [place] 60 degrees [facility] Diagnosis Normal sinus rhythm Moderate voltage criteria for LVH, may be normal variant ( R in aVL , Dillon product ) Borderline ECG When compared with ECG of 08-NOV-2024 10:21, [place] has shifted right Confirmed by JONNA YI M.D ([id number]) on 12/02/2024 8:44:09 PM [facility] 12/02/2024 9:41 AM CDT 12/02/2024 8:44 PM CDT Radha Hernandez NP ECG ORDERABLES Final Result Performing Organization Address [facility] de Phone Number [facility] * Hemoglobin A1c (11/06/2024 9:34 PM GIFTED PROGRAM TEACHER) Pathologist [facility] Hgb A1C 5.5 4.0 - 5.6 % Estimated Average Glucose 111 mg/dL [facility] Comment: The ADA recommends reporting an estimated Average Glucose (eAG) with all Hemoglobin A1c results using the equation derived from a study of 507 normal and diabetic adults. Minority populations were underrepresented and children were not included. (Diabetes Care 2020; 43(S1): S66-S76). The eAG is not equivalent to a fasting glucose. Blood 11/06/2024 9:34 PM GIFTED PROGRAM TEACHER 11/06/2024 10:09 PM GIFTED PROGRAM TEACHER us Analy Solis NP LAB BLOOD ORDERABLES Final Result [facility] Department [place] [address] * Lipid panel (07/05/2024 10:45 AM CDT) [...] LAB BLOOD ORDER[place] [id number] [facility] Department [place] [address] from Last 3 Months or Most Recently Relevant to Health Maintenance Insurance MEDICARE MEDICARE [facility] MEDICARE [facility] Advance Directives For more information, please contact: [phone] Documents on File Type Date Recorded Patient Medical Massage Therapist Expl anation ADVANCE DIRECTIVE 11/15/2024 7:07 AM POWER OF CLINICAL TRIALS DATA COORDINATOR-MEDICAL ADVANCE DIRECTIVE 11/09/2024 1:19 PM VOIDE D [...] 11:05 AM 01/14/2018 1:10 PM Care Teams Home Administrator Relationship Specialty Start Date End Date Neli Moura DO [address] [facility] [address] [place] [id number] PCP - General Family Medicine 03/26/24
--- OUTSIDE RECORDS SUMMARY | 2025-02-25 19:30 | XMS_ITS | Clinical Summary ---
Author Organization [facility] Address [address] [place] [address] Care Team Providers Care Auto Mechanics Instructor Name Role Phone Shruthi Mourazapilar Martin DO Primary Care Provider + Allergies No known active allergies Medications busPIRone (BUSPAR) 10 mg tabletIndications: Generalized Anxiety Disorder Take 1 tablet (10 mg total) by mouth 2 (two) times a day Active levothyroxine (SYNTHROID, LEVOTHROID) 88 mcg tabletIndications: hypothyroidism Take 1 tablet (88 mcg total) by mouth hogshead hand before breakfast Active aspirin 81 mg tabletIndications: [...] 11/11/2024 Assessment & Plan (11/11/2024 11:15 AM AUTOMOTIVE QUALITY ENGINEER): 11/11 patient had me examine her left wrist (photo loaded in EPIC) stated wound occurred due to EMS poking site with a pen on accident site is bruised with a scab present, no drainage or warmth noted to the site. Mood disorder 11/06/2024 Assessment & Plan (11/07/2024 10:50 AM AUTOMOTIVE QUALITY ENGINEER): Home regimen: buspar, guanfacine (held while NPO) 11/07 resumed Chronic pain 11/06/2024 Assessment & Plan (11/10/2024 8:07 AM AUTOMOTIVE QUALITY ENGINEER): Home regimen: percocet 10/325 QID PRN, last dispensed 11/01 for #56 tabs --- hold on oral narcotics until diet advanced as not to cloud picture iso SBO 11/10 resumed Hypothyroidism 11/06/2024 Assessment & Plan (11/07/2024 10:49 AM AUTOMOTIVE QUALITY ENGINEER): Home regimen: levothyroxine (held while NPO) - plan to initiate IV dosing if NPO >5d per [facility] policy 11/07 resumed Discharge planning issues 11/06/2024 Assessment & Plan (11/11/2024 11:22 AM AUTOMOTIVE QUALITY ENGINEER): 11/06 barrier to discharge: PO tolerance, ADD [...] 11/06/2024 Assessment & Plan (11/06/2024 11:09 AM AUTOMOTIVE QUALITY ENGINEER): 11/06 epic dispense report reviewed and updated in ADMISSIONS tab At risk for malnutrition 11/06/2024 Assessment & Plan (11/10/2024 8:07 AM AUTOMOTIVE QUALITY ENGINEER): 11/06 Body mass index is 26.26 kg/m [...] 11/05/2024 Assessment & Plan (11/11/2024 11:14 AM AUTOMOTIVE QUALITY ENGINEER): PSHx: 1990s: cholecystectomy, KELLY 10/2023 OSH: SBR [...] 09/28/2024 Assessment & Plan (11/10/2024 12:02 PM AUTOMOTIVE QUALITY ENGINEER): TTE 07/06/2024: EF 70%, G1DD Home regimen: [...] titration Assessment & Plan (09/28/2024 9:18 AM AUTOMOTIVE QUALITY ENGINEER): - Diastolic dysfunction w/o CHF. Diastolic function: stage I - impaired relaxation LVEF: >70% Asthma 09/28/2024 Assessment & Plan (11/10/2024 12:06 PM AUTOMOTIVE QUALITY ENGINEER): Albuterol PRN --- plan to discharge with new inhaler (ordered), as patient has not used hers at home, f/u with PCP (GWEN facilitating) Assessment & Plan (09/28/2024 9:29 AM AUTOMOTIVE QUALITY ENGINEER): - Continue home albueterol and advair - IS - OOB when able PAF (paroxysmal atrial fibrillation) 05/12/2023 Assessment & Plan (12/29/2024 8:21 AM CDT): On Eliquis at home. 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 Resistant hypertension 03/22/2019 Assessment & Plan (12/29/2024 9:26 AM CDT): BP runs 180-200/70s - Continue home regimen - Nicardipine gtt prn SBP goal 110-160 Assessment & Plan (11/06/2024 11:02 AM AUTOMOTIVE QUALITY ENGINEER): See DIASTOLIC DYSFUNCTION parameter for management Assessment & Plan (09/28/2024 9:22 AM AUTOMOTIVE QUALITY ENGINEER): - Home regimen: hydralazine, losartan, nebivolol, spirnolactone - VS Q2 hrs and PRN - OU - resume home meds as able Rheumatoid arthritis involving multiple sites History of carotid artery disease 10/14/2017 Assessment & Plan (11/10/2024 8:10 AM AUTOMOTIVE QUALITY ENGINEER): Scheduled for left carotid endarterectomy 11/12 with [...] agrees. Assessment & Plan (09/23/2017 1:48 PM AUTOMOTIVE QUALITY ENGINEER): Negative Lexiscan nuclear stress test back in August 2017. She does have strong family history for coronary artery disease. Will re-evaluate next visit. Evidence of type 1 diastolic dysfunction on echocardiogram. Mixed hyperlipidemia 09/23/2017 Assessment & Plan (02/16/2018 9:11 AM CDT): Continue Lipitor. Assessment & Plan (12/29/2017 1:10 PM CDT): Continue Lipitor 40 mg p.o. daily. Assessment & Plan (09/23/2017 1:49 PM AUTOMOTIVE QUALITY ENGINEER): L continue Lipitor. Arthralgia of ankle 07/04/2017 [...] SSI Assessment & Plan (11/07/2024 10:47 AM AUTOMOTIVE QUALITY ENGINEER): Last A1c 06/2024: 5.6 Home regimen: none Current diet: NPO SSI while inpatient, goal BG <180 A1c 11/06: 5.5 Assessment & Plan (09/28/2024 9:20 AM AUTOMOTIVE QUALITY ENGINEER): HgbA1c 5.6, not on any home medications - Monitor glucose with daily labs - Carb consistent diet when eating Osteoarthritis 05/13/2011 Trochanteric bursitis 01/12/2011 Overview (12/26/2017): Description: Trochanteric Bursitis Rheumatoid arthritis 01/12/2011 Overview (12/26/2017): Description: Rheumatoid Arthritis Assessment & Plan (11/06/2024 10:59 AM AUTOMOTIVE QUALITY ENGINEER): Home regimen: none Irritable bowel syndrome 11/03/2010 Assessment & Plan (11/10/2024 12:04 PM AUTOMOTIVE QUALITY ENGINEER): Home regimen: linzess, mag oxide (held while NPO) - resume home regimen when tolerating regular diet --- patient requesting to resume linzess 11/10 (ordered for AM dosing 11/11) at higher rate than previously taking, reports that PCP had intended to do so as needed, CM assisting with obtaining PCP appt on discharge Gastroesophageal reflux disease 11/03/2010 Assessment & Plan (11/07/2024 10:49 AM AUTOMOTIVE QUALITY ENGINEER): Home regimen: protonix - IV formulation while NPO - resume home formulation when tolerating regular diet Pseudophakia 08/23/2010 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 - Continue asa/ statin Assessment & Plan (11/10/2024 8:08 AM AUTOMOTIVE QUALITY ENGINEER): S/p JOSE to RCA x2 (06/2024) Home regimen: asa, plavix (last doses 11/04), lipitor, ezetimibe TTE 07/06/2024: EF 70%, G1DD 11/06 start cangrelor infusion while NPO 11/07-11/10 passed small bowel challenge, see alt parameter for diet modifications, continue cangrelor until diet tolerance declared Assessment & Plan (09/28/2024 9:15 AM AUTOMOTIVE QUALITY ENGINEER): S/p RCA stenting 07/08 - continue ASA, [...] 11/19/2024 Assessment & Plan (09/28/2024 9:20 AM AUTOMOTIVE QUALITY ENGINEER): 09/28: s/p Left carotid endarterectomy - OU, [...] (06/25/2019): Added automatically from request for surgery [id number] Chest pain 06/25/2019 10/29/2021 Overview (06/25/2019): Added automatically from request for surgery [id number] Essential hypertension, malignant 09/23/2017 03/22/2019 Assessment & Plan (02/16/2018 9:10 AM CDT): Blood pressure is much better controlled. Continue current treatment. Assessment & Plan (12/29/2017 1:10 PM CDT): Blood pressure well controlled. Continue current treatment. Assessment & Plan (09/23/2017 1:48 PM AUTOMOTIVE QUALITY ENGINEER): Blood pressure is controlled today however patient [...] Type Department Care Team Description 02/22/2025 Telephone [facility] Cardiology [address] [place] [address] [place] [phone] Alfredo Pedraza MD 01/24/2025 1:30 PM CDT Office Visit [facility] Cardiology [address] [place] [phone] Alfredo Pedraza MD Coronary artery disease involving muscogee coronary artery of muscogee heart with angina pectoris (Primary Dx); PAF (paroxysmal atrial fibrillation) (HCC); Resistant hypertension; History of carotid artery disease 01/24/2025 Telephone [facility] Cardiology [address] [place] [address] [place] [phone] Alfredo Pedraza MD 01/11/2025 Telephone [facility] Surgery [address] [facility] Medical Office Building 1 [address], [place] [address] Dayana Neal RMA Scheduling Appointments 12/29/2024 8:10 PM CDT Anesthesia Event [facility] Operating Room [address] [place] [phone] Delbert Rivera MD PhD Radha Hernandez NP 12/29/2024 6:31 AM CDT - 12/29/2024 12:00 PM CDT Hospital Encounter [facility] Operating Room [address] [place] [address] Boby Hernandez MD Stenosis of left carotid artery Discharge Disposition: Discharge to home or self care 12/29/2024 Documentation [facility] Surgery [address] [place] [address] Medical Office Building [address] [place] [phone] Carolina Maria NP 12/20/2024 10:00 AM CDT Office Visit [facility] Cardiology [address] [place] [address] Alfredo Pedraza MD Hx of non-ST elevation myocardial infarction (NSTEMI) (Primary Dx); Hypertensive heart disease with heart failure (HCC); Stenosis of left carotid artery; Mixed hyperlipidemia; Coronary artery disease involving muscogee coronary artery of muscogee heart with angina pectoris; PAF (paroxysmal atrial fibrillation) (HCC); History of carotid artery disease 12/17/2024 Orders Only [facility] Surgery [address] [place] [address] Office [address] [place] [phone] Boby Hernandez MD 12/07/2024 Telephone [facility] Surgery [address] [place] [address] [place] [phone] Carolina Maria NP 12/02/2024 8:00 AM CDT Pre-Admission Testing [facility] Center for Preoperative Assessment and Planning [facility] ([facility]) [address] [place] [phone] Preoperative testing (Primary Dx) from Last 3 [...] drink = 0.6 oz pur e alcohol) [facility] Utilities Answer Date Recorded In the past 12 months has e Flite, gas, oil, or water [employer] threatened to shut off services in your [...] often do you attend chur ch or caodaism services? More than 4 times per year 11/09/2024 Do you belong to any clubs o r organizations such as sikhism groups, unions, fraternal or athletic groups, or [...] Date Recorded PHQ-2 Total Score 0 11/09/2024 [facility] - [...] in the past 12 m [facility], were you homeless or living in a fci (including now)? No 11/09/2024 Personal Safety Answer Date Recorded Have you ever been in or are you currently in a harmful physical or emotional relationship or is someone making you feel afraid or unsafe? Patient unable to answer 12/29/2024 Comments No Sex and Gender Information Value Date Recorded Sex Assigned at Not on file Legal Sex Female 2:12 AM AUTOMOTIVE QUALITY ENGINEER Gender Identity Not on file Sexual [...] history exists Medical Devices Implanted Type Area Extractor Machine Operator Device Identifier Shelf Expiration Date Model / Serial / Lot [employer] Stent Coronary Drug Eluting Rapid Exchange Synergy Megatron 3.53x71og [place] [employer] [id number] - [id number] Implanted:Qty: 1 on 07/06/2024 by Alfredo Pedraza MD at [facility] [employer] 11/19/2025 [id number] 350 / / [id number] [employer] Stent Drug Eluting S Megatron 3.50x8mm [id number] - [id number] Implanted:Qty: 1 on 07/06/2024 by Alfredo Pedraza MD at [facility] [employer] 07/07/2025 [id number] 350 / / [id number] [employer] Angio-Seal Vip 6fr Closere Device [id number] - [id number] Implanted:Qty: 1 on 07/06/2024 [id number] / / Procedures Procedure Name Priority Date/Time [...] testing HEMOGLOBIN A1C Routine 11/06/2024 9:34 PM AUTOMOTIVE QUALITY ENGINEER LIPID PANEL Timed 07/05/2024 10:45 AM CDT from Last 3 Months or Most Recently Relevant to Health Maintenance Results * POCT glucose (12/29/2024 7:36 AM CDT) Glucose, POC 142 70 - 199 mg/dL Blood 12/29/2024 7:36 AM CDT 12/29/2024 7:36 AM CDT us Boby Hernandez MD LAB POCT ORDERABLES - DEVICE Final Result [facility] Department [place] [address] * (ABNORMAL) Sodium level (12/29/2024 7:35 AM CDT) Sodium 126(L) 135 - 145 mmol/L Blood 12/29/2024 7:35 AM CDT 12/29/2024 7:41 AM CDT Lenora Calderon WOOL BATTING WORKER LAB BLOOD ORDERABLES Fi nal Result [facility] [place] [address] * REFLEXIVE URINE CULTURE (12/21/2024 12:22 PM CDT) Urine culture [facility] Comment:NO CULTURE INDICATED 12/21/2024 12:2 2 PM CDT 12/21/2024 12:23 PM CDT Carolina Maria WOOL BATTING WORKER LAB MICROBIOLOGY - GENER AL ORDERABLES Final Result Performing Organization Address City/[facility]/ZIP Co de Phone Number QUEST [facility] [address] [place] [address] * Urinalysis reflex to microscopic and culture [...] CDT 12/21/2024 12:23 PM CDT Carolina Maria WOOL BATTING WORKER LAB MICROBIOLOGY - [facility] AL ORDERABLES Final Result Performing Organization Address City/[facility]/ZIP Co de Phone Number [facility] [address] [place] [address] * TYPE AND SCREEN 14 DAY (12/02/2024 10:05 AM CDT) Pathologist [facility] Caitie, indirect Negative ABO Rh O Positive [facility] Blood 12/02/2024 10:0 5 AM CDT 12/02/2024 11:40 AM CDT Narrative [facility] - 12/02/2024 12:38 PM CDT Is this test being ordered in advance for a procedure?->Yes Expected date of procedure:->12/08/24 Has the patient been transfused in the past 3 months?->No Has the patient been in the past 3 months?->No Radha Hernandez NP LAB BLOOD BANK TEST ORDERABLES F inal Result Performing Organization Address [facility] Co de Phone Number [facility] [place] [address] * eGFR (12/02/2024 10:05 AM CDT) eGFR [...] NP LAB BLOOD ORDERABLES Final Resul t [facility] [place] [address] * (ABNORMAL) Differential, auto (12/02/2024 10:05 AM CDT) Neutrophil abs 7.3(H) 1.5 - 6.5 K/cumm Imm gran abs 0.0 0.0 - 0.1 K/cumm [facility] Lymphocyte abs 2.7 0.8 - 3.3 K/cumm [facility] Monocyte abs 0.6 0.2 - 0.8 K/cumm [facility] Eosinophil abs 0.2 0.0 - 0.5 K/cumm [facility] Basophil abs 0.1 0.0 - 0.1 K/cumm [facility] Neutrophil pct 66.5 % [facility] Comment: Interpretive Data Percent cell count reference ranges are not reported, since discordance with absolute values may lead to misinterpretation of CBC data. Current Interpretive Data was last revised on 2017. Imm gran pct 0.4 % [facility] Comment: Interpretive Data Percent cell count reference ranges are not reported, since discordance with absolute values may lead to misinterpretation of CBC data. Current Interpretive Data was last revised on 2017. Lymphocyte pct 24.5 % [facility] Comment: Interpretive Data Percent cell count reference ranges are not reported, since discordance with absolute values may lead to misinterpretation of CBC data. Current Interpretive Data was last revised on 2017. Monocyte pct 5.8 % [facility] Comment: Interpretive Data Percent cell count reference ranges are not reported, since discordance with absolute values may lead to misinterpretation of CBC data. Current Interpretive Data was last revised on 2017. Eosinophil pct 2.1 % [facility] Comment: Interpretive Data Percent cell count reference ranges are not reported, since discordance with absolute values may lead to misinterpretation of CBC data. Current Interpretive Data was last revised on 2017. Basophil pct 0.7 % [facility] Comment: Interpretive Data Percent cell count reference ranges are not reported, since discordance with absolute values may lead to misinterpretation of CBC data. Current Interpretive Data was last revised on 2017. Blood 12/02/2024 10:0 5 AM CDT 12/02/2024 11:26 AM CDT Radha Hernandez NP LAB BLOOD ORDERABLES Final Resul t [facility] [place] [address] * (ABNORMAL) Urinalysis reflex to microscopic and culture Urine, clean voided (12/02/2024 10:05 AM CDT) Color, ur Straw Yellow Clarity, ur Cloudy(A) Clear [facility] Specific gravity, ur 1.008 1.003 - 1.030 [facility] pH, urine 6.5 [facility] Comment: Interpretive Data U rine pH is affected by diet, medications, systemic acid-base disturbances, and renal tubular function. pH may affect urinary stone formation. For example, urine pH below 6.0 may help reduce the tendency for calcium phosphate stones and pH greater than 6.0 may reduce the tendency for uric acid stone formation. Source: [facility] [employer] Current Interpretive Data was last revised on 2017 Protein, ur ql Negative Negative [facility] Glucose, ur ql Negative Negative [facility] Ketones, ur Negative Negative [facility] Bilirubin, ur Negative Negative [facility] Blood, ur Negative Negative [facility] Urobilinogen, ur <2.0 <2.0 mg/dL [facility] Nitrite, ur Positive(A) Negative [facility] Leukocyte esterase, ur 3+(A) Negative [facility] UA reflex comment Reflex to microscopic UA will be performed. [facility] Urine, clean voided 12/02/2024 10:05 AM CDT 12/02/2024 11:26 AM CDT us Radha Hernandez NP LAB MICROBIOLOGY - GENERAL ORDER JAYME Final Result Performing Organization Address City/[facility] Co de Phone Number [facility] [place] [address] * (ABNORMAL) CBC with auto differential (12/02/2024 10:05 AM CDT) WBC 11.0(H) 3.8 - 9.9 K/cumm Hgb 13.0 11.9 - 15.5 g/dL [facility] Hct 36.5 35.6 - 45.5 % [facility] Plt 288 150 - 400 K/cumm [facility] MPV 9.6 9.1 - 12.3 fL [facility] RBC 4.05 3.90 - 5.20 M/cumm [facility] MCV 90.1 81.3 - 96.4 fL [facility] MCH 32.1 27.1 - 33.3 pg [facility] MCHC 35.6 32.3 - 35.7 g/dL [facility] RDW CV 12.8 11.1 - 14.9 % [facility] RDW SD 42.0 35.7 - 48.1 fL [facility] NRBC abs 0.00 0.00 - 0.01 K/cumm [facility] Blood 12/02/2024 10:0 5 AM CDT 12/02/2024 11:26 AM CDT us Radha Hernandez NP LAB BLOOD ORDERABLES Final Resul t Performing Organization Address City/State/[facility] Co de Phone Number [facility] Department [place] [address] * (ABNORMAL) Urinalysis, microscopic only (12/02/2024 10:05 AM CDT) WBC, ur >50(A) 0 - 5 /HPF RBC, ur 3-5(A) 0 - 2 /HPF [facility] Epithelial cells, squamous, ur 1-5 0 - 5 /HPF [facility] Epithelial cells, transitional, ur 1-5 0 - 0 /HPF [facility] Bacteria, ur 1+(A) [facility] Mucous, ur Present(A) [facility] Culture Reflex Comment Reflex to urine culture will be performed. [facility] Urine, clean voided 12/02/2024 10:05 AM CDT 12/02/2024 11:26 AM CDT Radha Hernandez NP LAB URINE ORDERABLES Final Resul t Performing Organization Address [facility] Co de Phone Number [facility] Department [place] [address] * (ABNORMAL) Urine culture Urine, clean voided (12/02/2024 10:05 AM CDT) Report Final Report: Greater than or equal to 100,000 colonies/mL of Escherichia coli (.) Organism ESCHERICHIA COLI [facility] Urine, clean voided 12/02/2024 10:05 AM CDT 12/02/2024 12:21 PM CDT Narrative [facility] - 12/04/2024 10:09 AM CDT Urine culture reflexed based upon urinalysis results. Testing performed by [facility] Microbiology Laboratory ([phone]) Organism Antibiotic Method Susceptibility Escherichia coli Ampicillin [...] ORDER JAYME Final Result Performing Organization Address [facility]/ZIP Co de Phone Number [facility] Department [place] [address] * (ABNORMAL) Basic metabolic panel (12/02/2024 10:05 AM CDT) [facility] Signature Sodium 128(L) 135 - 145 mmol/L Potassium, pl 3.9 3.3 - 4.9 mmol/L [facility] Chloride 94(L) 97 - 110 mmol/L [facility] CO2 23 22 - 32 mmol/L [facility] Anion gap 11 2 - 15 mmol/L [facility] BUN 8 6 - 25 mg/dL [facility] Creatinine 0.73 0.60 - 1.10 mg/dL [facility] Glucose 91 70 - 199 mg/dL [facility] Comment: Interpretive Data Fasting glucose [...] 2022. Calcium 9.5 8.5 - 10.3 mg/dL [facility] Blood 12/02/2024 10:0 5 AM CDT 12/02/2024 11:26 AM CDT Radha Hernandez NP LAB BLOOD ORDERABLES Final Resul t Performing Organization Address [facility] Co de Phone Number [facility] [place] [address] * ECG 12 lead (12/02/2024 9:41 AM CDT) [facility] Ventricular Rate EKG/Min 67 BPM [facility] Atrial Rate 67 BPM [facility] NC-Interval (MSEC) 202 ms [facility] QRS-Interval (MSEC) 88 ms [facility] QT-Interval (MSEC) 404 ms [facility] QTc 426 ms [facility] P [place] 97 degrees [facility] R [place] -9 degrees [facility] T [place] 60 degrees [facility] Diagnosis Normal sinus rhythm Moderate voltage criteria for LVH, may be normal variant ( R in aVL , [place] product ) Borderline ECG When compared with ECG of 08-NOV-2024 10:21, [place] has shifted right Confirmed by JONNA YI M.D ([id number]) on 12/02/2024 8:44:09 PM [facility] 12/02/2024 9:41 AM CDT 12/02/2024 8:44 PM CDT us Radha Hernandez WOOL BATTING WORKER ECG ORDERABLES Final Result Performing Organization Address City/[facility]/ZIP Co de Phone Number [facility] * Hemoglobin A1c (11/06/2024 9:34 PM AUTOMOTIVE QUALITY ENGINEER) [facility] Hgb A1C 5.5 4.0 - 5.6 % Estimated Average Glucose 111 mg/dL [facility] Comment: The ADA recommends reporting an estimated Average Glucose (eAG) with all Hemoglobin A1c results using the equation derived from a study of 507 normal and diabetic adults. Minority populations were underrepresented and children were not included. (Diabetes Care 2020; 43(S1): S66-S76). The eAG is not equivalent to a fasting glucose. Blood 11/06/2024 9:34 PM AUTOMOTIVE QUALITY ENGINEER 11/06/2024 10:09 PM AUTOMOTIVE QUALITY ENGINEER us Analy [employer] WOOL BATTING WORKER LAB BLOOD ORDERABLES Final Result [facility] Department [place] [address] * Lipid panel (07/05/2024 10:45 AM CDT) [...] on 2018. LDL, calculated 23 <=129 mg/dL COYB FRANZ Comment: Interpretive Data Ages < or [...] MD LAB BLOOD ORDERABLES Final Result [facility] [id number] [address] Department [place] [address] from Last 3 Months or Most Recently Relevant to Health Maintenance Insurance MEDICARE MEDICARE [facility] MEDICARE [facility] Advance Directives For more information, please contact: [phone] Documents on File Type Date Recorded Patient Starch Crab Expl anation ADVANCE DIRECTIVE 11/15/2024 7:07 AM POWER OF BUSINESS CONTROL MANAGER-MEDICAL ADVANCE DIRECTIVE 11/09/2024 1:19 PM VOIDE D [...] 11:05 AM 01/14/2018 1:10 PM Care Teams Auto Mechanics Instructor Relationship Specialty Start Date End Date Neli Moura DO [address] [place] [address] [place] [address] PCP - General Family Medicine 03/26/24
--- OUTSIDE RECORDS SUMMARY | 2025-02-25 19:30 | XMS_ITS | Encounter Summary ---
Author Organization [facility] Facility Care Team Providers Care Gum Rolling Machine Tender Name Role Phone Don Alejandre MD Primary Care Provider [phone] Alona Jones MD Primary Care Provider Attila Pemberton MD Primary Care Provider Kathleen Garcia ELECTRIC VEHICLE ELECTRICIAN Primary Care Provider [phone] Keerthi Ace ELECTRIC VEHICLE ELECTRICIAN Primary Care Provider [phone] Neli Moura DO Primary Care Provider + Encounter Details Date Type Department Care Team (Latest Contact Info) Description 04/13/2018 Orders Only [facility] CLINCONV Provider, MD Kenya [address] [place] [id number] Social History Tobacco Use Types Packs/Day Years Used Date Smoking Tobacco: Never Assessed Comments Unknown Sex and Gender Information Value Date Recorded Sex Assigned at Not on file Legal Sex Female 2:12 AM ACCOUNT SERVICES REPRESENTATIVE Gender Identity Not on file Sexual Orientation [...] on filedocumented in this encounter Care Teams Gum Rolling Machine Tender Relationship Specialty Start Date End Date Don Alejandre MD [address] [place] [address] PCP - General Family Practice 02/16/18 06/13/19 Alona Jones MD [address] [place] [address] PCP - General Family Medicine 06/14/19 11/12/20 Attila Pemberton MD [address] [place] [address] PCP - General Family Practice 11/13/20 12/13/21 Kathleen Garcia NP [address] [place] [address] PCP - General Nurse Practitioner 12/14/21 04/02/23 Keerthi Ace NP [address] [place] [address] PCP - General Family Medicine 04/03/23 03/25/24 Neli Moura DO [address] [place] [address] [place] [address] PCP - General Family Medicine 03/26/24 documented as of this encounter
--- OUTSIDE RECORDS SUMMARY | 2025-02-25 19:30 | XMS_ITS | Encounter Summary ---
Author Organization [facility] Healthcare Address [address] [place] [address] Care Team Providers Care Pavilion Cutter Name Role Phone MouraNeli seals Veronica DERAS Primary Care Provider + Encounter Details Date Type Department Care Team (Late st Contact Info) Description 02/22/2025 Telephone [facility] Medical Group Cardiology [address] [place] [address] Alfredo Pedraza MD [address] [place] [id number] Social History Tobacco Use Types Packs/Day Years Used Date Smoking Tobacco: Never Smokeless Tobacco: Never Alcohol Use Standard Drinks/Week Comments No 0 (1 standard drink = 0.6 oz pur e alcohol) [facility] Utilities Answer Date Recorded In the past 12 months has [employer], gas, oil, or water [employer] threatened to shut off services in your [...] How often do you attend chur or yazidi services? More than 4 times per year 11/09/2024 Do you belong to any clubs o r organizations such as mosque groups, unions, fraternal or athletic groups, or [...] Date Recorded PHQ-2 Total Score 0 11/09/2024 [facility] Occupat ional Health - Occupational Stress [...] any time in the past 12 m [facility], were you homeless or living in a residential (including now)? No 11/09/2024 Personal Safety Answer Date Recorded Have you ever been in or are you currently in a harmful physical or emotional relationship or is someone making you feel afraid or unsafe? 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
[2025-02-25 19:53] LABS: Add Urine Microscopic? YES; Appearance Urine Clear (Clear); Bilirubin Urine Negative (Negative); Blood Urine Negative (Negative); Color Urine Yellow (Yellow); Glucose Urine UA Negative (Negative); Ketones Urine Negative (Negative); Leukocyte Esterase Ur Trace LEU/UL (Negative); Nitrate Urine Negative (Negative); Protein Urine Negative (Negative); Specific Grav Ur 1.006 (1.001-1.035); Urobilinogen Urine 0.2 mg/dL (<2.0)
--- NOTE | 2025-02-25 20:00 | ED.DIZZY ---
HPI - Dizziness General Chief Complaint: Dizziness Stated Complaint: dizziness Time Seen by Provider: 02/25/25 19:03 History of Present Illness HPI Narrative: Patient with history of paroxysmal AFib, supposed to have endarterectomy but case canceled due to uncontrolled blood pressure, presents here due to persistent vertigo that started about 2 days ago, initially with mostly intermittent but now much more frequent, much worse with position, not too bad when she is lying at rest. Also feels like her heart has been racing. Related Data Home Medications ?Medication ?Instructions ?Recorded ?Confirmed ?Last Taken ?Type aspirin 81 mg tablet,delayed 81 mg PO DAILY 07/29/19 11/24/24 07/13/22 07:00 History release (Adult Low Dose Aspirin) cetirizine 10 mg capsule 10 mg PO DAILY 03/15/23 11/24/24 Unknown History ezetimibe 10 mg tablet 10 mg PO DAILY 03/15/23 11/24/24 Unknown History folic acid 1 mg tablet 3 mg PO DAILY 03/15/23 11/24/24 Unknown History albuterol sulfate 90 mcg/actuation 2 puff inhalation QID PRN 06/22/23 11/24/24 Unknown History aerosol inhaler Shortness Of Breath Or Wheezing methotrexate sodium 2.5 mg tablet 2.5 mg PO WEEKLY 06/22/23 11/24/24 Unknown History docusate sodium 100 mg capsule 100 mg PO DAILY 02/04/24 11/24/24 Unknown History (Dulcolax Stool Softener (docusate)) ubwmqhgk-nug-A. coag-B. 1 tablet PO DAILY 02/04/24 11/24/24 Unknown History subtilis-inulin 1 billion cell-1 gram chew tab (Culturelle Probiotic-Multivit) spironolactone 25 mg tablet 12.5 mg PO DAILY 02/04/24 11/24/24 Unknown History fluticasone 250 mcg-salmeterol 50 1 inh inhalation BID 05/12/24 11/24/24 Unknown History mcg/dose blistr powdr for inhalation (Advair Diskus) guanfacine 1 mg tablet 1 mg PO HS 10/07/24 11/24/24 10/06/24 History hydralazine 25 mg tablet 25 mg PO TID 10/07/24 11/24/24 10/06/24 History Allergies Allergy/AdvReac Type Severity Reaction Status Date / Time No Known Allergies Allergy Verified 02/25/25 17:09 Review of Systems Review of Systems: All systems reviewed & are unremarkable except as noted in HPI and below [facility] Past Medical History Medical History (Updated 02/26/25 @ 01:55 by Ronda Donald MD) Carotid artery stenosis More than 50 percent stenosis of right internal carotid artery Renal artery stenosis Folic acid deficiency Type 2 diabetes mellitus Vitamin D deficiency Chronic anticoagulation Paroxysmal atrial fibrillation Pneumonia Vitamin B 12 deficiency Heart failure with preserved ejection fraction Hypothyroidism Peptic ulcer Deep venous thrombosis Gastroesophageal reflux disease Chronic hyponatremia Chronic, continuous use of opioids Chronic pain syndrome Obstructive sleep apnea Noncompliant with CPAP. Irritable bowel syndrome Hypertension Coronary artery disease Angioplasty of a diagonal lesion in 01/2018. Cardiac catheterization 06/2019 showed patent coronary arteries. Anxiety Depression Degenerative joint disease involving multiple joints Rheumatoid arthritis Hiatal hernia Asthma Hyperlipidemia Peripheral neuropathy Seasonal allergies Surgical History Surgical History H/O heart artery stent x2 History of exploratory laparotomy Exploratory laparotomy with segmental mid jejunal small bowel resection with vncp-eo-ipje stapled anti peristaltic jejunal anastomosis 10/19/23 History of cataract extraction History of carpal tunnel release History of arthroscopy of both shoulders History of phacoemulsification of cataract with intraocular lens implantation History of cholecystectomy History of appendectomy History of foot surgery History of cardiac catheterization Angioplasty of a diagonal stenosis 01/2018. Cardiac catheterization 06/2019 showed patent coronary arteries. History of hysterectomy Family History Family History Grandparent Diabetes mellitus Father Diabetes mellitus Acute myocardial infarction Hypertension Family history of cardiovascular disease Mother Diabetes mellitus Hypertension Sibling Diabetes mellitus Hypertension Social History Social History Social History: The patient lives in [place]. Her 2021. 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 Lifelong nonsmoker. No alcohol or illicit substance abuse. Per patient, POA is Wild Price, friend. Code status: Full code Caffeine-soda Smoking status: Never smoker Second hand tobacco smoke exposure: No Alcohol intake: never Substance use: never Substance use type: marijuana Other substance usage details: medical marijauna Do You Feel Safe in your Home?: Yes Lack of Transportation: No Lack of Food: Never True Current Housing: I Have Housing Concerned About Future Housing: No Difficulty Paying Gas/Electric Bills: No Difficulty Paying for Meds: No Currently Unemployed: No Education: Associate Degree Difficulty w/ Childcare or Family Care: No Spiritual care concerns: No Agree to blood products: Yes Exam Narrative: EXAMINATION OF ORGAN SYSTEMS/BODY AREAS: Constitutional: Vital signs per nursing GENERAL:[No acute distress, non-toxic appearing when lying flat.] Looks extremely uncomfortable when she is sat up HEAD: Normal with no signs of head trauma. EYES: EOMI, conjunctiva normal ENT: Hearing grossly intact LUNGS: Nonlabored breathing. HEART: [Regular rate and rhythm] ABD: [Soft], [nontender to palpation] EXT: Normal range of motion SKIN: [No rashes or lesions.] NEURO: [Alert and oriented x 3. No gross focal sensory or strength deficits.] Normal speech. PSYCH: Normal affect Course Vital Signs Vital signs: Vital Signs Temperature 97.1 F L 02/25/25 17:01 Pulse Rate 82 02/25/25 17:01 Respiratory Rate 18 02/25/25 17:01 Blood Pressure 163/54 H 02/25/25 17:01 Pulse Oximetry 100 02/25/25 17:01 Oxygen Delivery Room Air 02/25/25 17:01 Temperature 97.8 F 02/25/25 20:30 Pulse Rate 72 02/26/25 01:15 Respiratory Rate 11 L 02/26/25 01:15 Blood Pressure 122/54 L 02/25/25 23:01 Pulse Oximetry 98 02/26/25 01:15 Oxygen Delivery Room Air 02/25/25 17:01 MDM - Dizziness MDM Narrative Medical decision making narrative: Patient presenting with vertigo, ongoing for last 2 days, she does also have a history of bilateral carotid stenosis. Since her symptoms are entirely positional, I have lower concern for this being a CTA, and regardless she is out of any window for intervention. She is given a dose of meclizine and on re-evaluation, she states she actually feels much better. She was able to sit up and was able to use the bedside commode with assistance from nursing, though this did bring back some of her vertigo so she is given additional dose of meclizine. CTA head/neck does not show any acute stroke, does show the known stenosis On repeat evaluation, her dizziness has essentially resolved, she is laying on her right side and in no distress. I did discuss going home at this time, however patient is concerned about going home and would like to be admitted for 1 night, which seems reasonable given her age and symptoms. Discussed with hospitalist. Lab Data 02/25/25 20:04 02/25/25 20:04 Labs: Lab Results 02/25/25 02/25/25 Range/Units 19:34 20:04 WBC 11.7 H (4.5-10.0) K/mm3 RBC 4.01 L (4.2-5.4) M/mm3 Hgb 12.7 (12.0-15.0) g/dL Hct 37.4 (37.0-47.0) % MCV 93.3 (80-100) fl MCH 31.7 (26-34) pg MCHC 34.0 (32-36) g/dl RDW 12.6 (11.5-14.5) % Plt Count 348 (150-375) k/mm3 MPV 8.9 (7.4-10.4) fl Immature Gran % (Auto) 0.4 (0-0.5) % Neut % (Auto) 64.3 (45.5-73.1) % Lymph % (Auto) 28.4 (18.3-44.2) % [place] % (Auto) 6.4 (2.6-8.5) % Eos % (Auto) 0.1 (0-4.4) % Baso % (Auto) 0.4 (0.2-1.2) % Lymph # (Auto) 3.34 H (0.9-3.2) K/mm3 [place] # (Auto) 0.8 H (0.1-0.6) K/mm3 Eos # (Auto) 0.0 (0-0.3) K/mm3 Baso # (Auto) 0.1 (0.0-0.1) K/mm3 Abs Immat Gran (auto) 0.05 H (0.00-0.031) K/mm3 Absolute Neuts (auto) 7.5 H (1.3-6.7) K/mm3 Absolute Nucleated RBC 0.000 (0.0-0.012) K/mm3 Nucleated RBC % 0.0 (0.0-0.2) % Sodium 129 L (137-145) mmol/L Potassium 4.3 (3.4-5.0) mmol/L Chloride 95 L (98-107) mmol/L Carbon Dioxide 24 (22-30) mmol/L Anion Gap 10 (4-12) mmol/L BUN 12 (7-17) mg/dL Creatinine 0.63 L (0.7-1.0) mg/dL Estim Creat Clear Calc Not Reportable Estimated GFR > 60 (59 - ) Glucose 112 H (65-110) mg/dL Calcium 9.7 (8.4-10.2) mg/dL Total Bilirubin 1.2 (0.2-1.3) mg/dL AST 26 (14-36) U/L ALT 23 (6-35) U/L Alkaline Phosphatase 108 (38-126) U/L Total Protein 7.5 (6.3-8.2) g/dL Albumin 4.6 (3.5-5.1) g/dL Urine Color Yellow (Yellow) Urine Appearance Clear (Clear) Urine pH 7.0 (5.0-9.0) Ur Specific [place] 1.006 (1.001-1.035) Urine Protein Negative (Negative) mg/dL Urine Glucose (UA) Negative (Negative) mg/dL Urine Ketones Negative (Negative) mg/dL Ur Blood (Man) Negative (Negative) Urine Nitrate Negative (Negative) Urine Bilirubin Negative (Negative) Urine Urobilinogen 0.2 (<2.0) mg/dL Leukocyte Esterase Rfl Trace H (Negative) TEE/UL Urine RBC 0-2 (0-2) /hpf Urine WBC 0-5 (0-3) /hpf Ur Squamous Epith Cells None seen (Few) /hpf Urine Bacteria 4+ H /hpf Urine Casts 0-2 Discharge Plan Discharge Clinical Impression: Vertigo Patient Disposition: Still a Patient Condition: Serious Patient Language: Romanian Prescriptions: No Action Culturelle Probiotic-Multivit 1 billion cell- 1 gram tablet,chewable 1 tablet PO DAILY docusate sodium [Dulcolax Stool Softener (dss)] 100 mg capsule 100 mg PO DAILY spironolactone 25 mg tablet 12.5 mg PO DAILY ergocalciferol (vitamin D2) 1,250 mcg (50,000 unit) capsule 1,250 mcg PO WEEKLY Qty: 13 1RF Rx Instructions: friday atorvastatin 40 mg tablet 40 mg PO QHS Qty: 90 3RF fluticasone propion-salmeterol [Advair Diskus] 250-50 mcg/dose blister with device 1 inh inhalation BID ondansetron 4 mg tablet,disintegrating 4 mg PO DAILY PRN (Reason: nausea and vomiting) Qty: 30 2RF magnesium oxide 400 mg (241.3 mg magnesium) tablet 400 mg PO QAM Qty: 90 1RF folic acid 1 mg Tablet 3 mg PO DAILY ezetimibe 10 mg Tablet 10 mg PO DAILY cetirizine 10 mg Capsule 10 mg PO DAILY methotrexate sodium 2.5 mg tablet 2.5 mg PO WEEKLY Rx Instructions: THURSDAYS albuterol sulfate 90 mcg/actuation HFA aerosol inhaler 2 puff inhalation QID PRN (Reason: Shortness Of Breath Or Wheezing) oxycodone-acetaminophen 10-325 mg tablet 1 tablet PO Q6H PRN (Reason: Pain (Scale Score 4-6)) Qty: 1 0RF pantoprazole 40 mg Tablet,Delayed Release (Dr/Ec) 40 mg PO DAILY Qty: 30 0RF ferrous sulfate 325 mg (65 mg iron) Tablet,Delayed Release (Dr/Ec) 325 mg PO DAILY Qty: 30 1RF Eliquis 2.5 mg Tablet 2.5 mg PO Q12HR Qty: 60 1RF polyethylene glycol 3350 [Miralax] 17 gram Powder In Packet 17 g PO QAM PRN (Reason: Constipation) Qty: 30 0RF acetaminophen 500 mg capsule 1,000 mg PO Q6H PRN (Reason: pain) Qty: 30 0RF guanfacine 1 mg tablet 1 mg PO HS hydralazine 25 mg tablet 25 mg PO TID simethicone 80 mg Tablet,Chewable 80 mg PO QID Qty: 40 0RF bisacodyl [Laxative (bisacodyl)] 10 mg suppository 10 mg RECTAL DAILY PRN (Reason: constipation) Qty: 12 0RF aspirin [Adult Low Dose Aspirin] 81 mg tablet,delayed release (DR/EC) 81 mg PO DAILY cyanocobalamin (vitamin B-12) [Vitamin B-12] 1,000 mcg tablet 1,000 mcg PO QAM Qty: 90 1RF sodium chloride 1,000 mg tablet,soluble 1,000 mg PO BID Qty: 180 1RF levothyroxine 88 mcg tablet See Rx Instructions .ROUTE .COMPLEX Qty: 90 1RF Dose Instruction: 88 MCG ORALLY EVERY MORNING Rx Instructions: 88 MCG ORALLY EVERY MORNING nitroglycerin 0.4 mg tablet, sublingual See Rx Instructions .ROUTE .COMPLEX Qty: 25 0RF Dose Instruction: 0.4 MG SUBLINGUALLY EVERY 5 MINUTES NEEDED FOR CHEST PAIN MAX 3 DOSES Rx Instructions: 0.4 MG SUBLINGUALLY EVERY 5 MINUTES NEEDED FOR CHEST PAIN MAX 3 DOSES buspirone 10 mg tablet See Rx Instructions .ROUTE .COMPLEX Qty: 180 1RF Dose Instruction: 10 MG ORALLY TWICE A DAY NEEDED FOR ANXIETY Rx Instructions: 10 MG ORALLY TWICE A DAY NEEDED FOR ANXIETY losartan 100 mg tablet 100 mg PO DAILY Qty: 90 1RF montelukast 10 mg tablet See Rx Instructions .ROUTE .COMPLEX Qty: 90 1RF Dose Instruction: 10 MG ORALLY DAILY Rx Instructions: 10 MG ORALLY DAILY Linzess 290 mcg capsule 290 mcg PO QAM Qty: 90 3RF
[2025-02-25 20:09] LABS: Bacteria Urine 4+ /hpf; Non Pathogenic Casts 0-2; RBC Urine 0-2 /hpf (0-2); Squamous Epithelial Cell Urine None Seen /hpf (Few); WBC Urine 0-5 /hpf (0-3)
[2025-02-25 20:11] LABS: Basophils Absolute Auto 0.1 K/mm3 (0.0-0.1); Basophils Percent Auto 0.4 % (0.2-1.2); Eosinophils Percent Auto 0.1 % (0-4.4); Hematocrit 37.4 % (37.0-47.0); Hemoglobin 12.7 g/dL (12.0-15.0); Immature Granulocyte Absolute 0.05 K/mm3 (0.00-0.031); Immature Granulocyte Percent A 0.4 % (0-0.5); Lymphocytes Absolute Auto 3.34 K/mm3 (0.9-3.2); Lymphocytes Percent Auto 28.4 % (18.3-44.2); Mean Corpuscular Hemoglobin 31.7 pg (26-34); Mean Corpuscular Volume 93.3 fl (80-100); Mean Platelet Volume 8.9 fl (7.4-10.4); Monocytes Absolute Auto 0.8 K/mm3 (0.1-0.6); Monocytes Percent Auto 6.4 % (2.6-8.5); Neutrophils Absolute Auto 7.5 K/mm3 (1.3-6.7); Neutrophils Percent Auto 64.3 % (45.5-73.1); Platelet Count Result 348 k/mm3 (150-375); Red Blood Count 4.01 M/mm3 (4.2-5.4); Red Cell Distribution Width 12.6 % (11.5-14.5); White Blood Count 11.7 K/mm3 (4.5-10.0)
[2025-02-25 20:20] LABS: Alanine Aminotransferase 23 U/L (6-35); Albumin Level 4.6 g/dL (3.5-5.1); Alkaline Phosphatase 108 U/L (38-126); Anion Gap 10 mmol/L (4-12); Aspartate Amino Transferase 26 U/L (14-36); Bilirubin,Total 1.2 mg/dL (0.2-1.3); Blood Urea Nitrogen 12 mg/dL (7-17); Calcium 9.7 mg/dL (8.4-10.2); Carbon Dioxide 24 mmol/L (22-30); Chloride 95 mmol/L (98-107); Estimated Glomerular Filt Rate > 60; Glucose 112 mg/dL (65-110); Potassium 4.3 mmol/L (3.4-5.0); Sodium 129 mmol/L (137-145); Total Protein 7.5 g/dL (6.3-8.2)
[2025-02-25] MEDS: HYDROmorphone HCL INJ (*CRX) 2 MG/ML VIAL 0.5 MG IV PUSH (20:38)
[2025-02-26] VITALS (16 sets, daily range): BP systolic 99–163; BP diastolic 57–66; PULSE 64–79; RESP 11–18; TEMP 36.6–37.2; O2SAT 97–100; BMI 25.0
[2025-02-26] MEDS: oxyCODONE/ACETAMINOPHEN (*CRX) 10-325 MG TABLET 1 TAB PO (00:41)
[2025-02-26] MEDS: APIXABAN 2.5 MG TABLET PO ×2 (00:41→21:23)
--- NOTE | 2025-02-26 03:31 | ADMGEN ---
This patient, Aracely Spear, was admitted to Medical Room 347-. Patient/family oriented to hospital policies and general routines including ID bracelet, bed and alarms, visiting hours, pain management, procedures, bathroom and other care routines, personal items, smoking policy, room service/diet, and visiting hours. Information on how to activate the Rapid Response Team has been discussed. Patient/Family are encouraged to report perceived risks to care and to ask questions if they do not understand what they are told or what they should do.
[2025-02-26] MEDS: HYDROcodone/acetaminophen (*CRX) 5-325 MG TABLET 2 TAB PO ×3 (06:50→18:46)
[2025-02-26] MEDS: CYANOCOBALAMIN 1,000 MCG TABLET 1000 MCG PO (11:26)
[2025-02-26] MEDS: DOCUSATE SODIUM 100 MG CAPSULE 200 MG PO (11:26)
[2025-02-26] MEDS: LORATADINE 10 MG TABLET PO (11:26)
[2025-02-26] MEDS: MONTELUKAST SODIUM 10 MG TABLET BY MOUTH (11:26)
[2025-02-26] MEDS: LINACLOTIDE 145 MCG CAPSULE 290 MCG PO (11:26)
[2025-02-26] MEDS: FOLIC ACID 1 MG TABLET 3 MG PO (11:26)
[2025-02-26] MEDS: ASPIRIN 81 MG ENTERIC TABLET PO (11:26)
[2025-02-26] MEDS: busPIRone HCL 10 MG TABLET PO ×2 (11:26→21:23)
[2025-02-26] MEDS: MAGNESIUM OXIDE 400 MG TABLET PO (11:26)
[2025-02-26] MEDS: LOSARTAN POTASSIUM 100 MG TABLET PO (11:26)
[2025-02-26] MEDS: aMILoride HCL 5 MG TABLET PO (11:27)
[2025-02-26] MEDS: MECLIZINE HCL 25 MG TABLET PO (11:43)
--- NOTE | 2025-02-26 11:49 | P.HP_ITS ---
H&P: HPI History of Present Illness Date/Time: 02/26/25 11:23 Chief Complaint: Vertigo Narrative: Per ED provider: Patient with history of paroxysmal AFib, supposed to have endarterectomy but case canceled due to uncontrolled blood pressure, presents here due to persistent vertigo that started about 2 days ago, initially with mostly intermittent but now much more frequent, much worse with position, not too bad when she is lying at rest. Also feels like her heart has been racing. Patient presenting with vertigo, ongoing for last 2 days, she does also have a history of bilateral carotid stenosis. Since her symptoms are entirely positional, I have lower concern for this being a CTA, and regardless she is out of any window for intervention. She is given a dose of meclizine and on re-evaluation, she states she actually feels much better. She was able to sit up and was able to use the bedside commode with assistance from nursing, though this did bring back some of her vertigo so she is given additional dose of meclizine. CTA head/neck does not show any acute stroke, does show the known stenosis On repeat evaluation, her dizziness has essentially resolved, she is laying on her right side and in no distress. I did discuss going home at this time, however patient is concerned about going home and would like to be admitted for 1 night, which seems reasonable given her age and symptoms. 02/26: Pt resting in bed when I went to visit her. Pt reports that she is currently having vertigo when she moves her head so she is trying to stay as still as possible. Reviewed pt's hx with her which includes: paroxysmal afib (Eliquis 2.5 BID), carotid stenosis (scheduled for endarterectomy in November 2024 but rescheduled for x6 months due to uncontrolled HTN), SBO (recent admit to [facility] x3 months ago and resolved with NG and bowel rest), hiatal hernia, RA, and osteoporosis of the spine. Pt states that over the last several days she has also been experiencing palpitations, but no CP/SOB. EKG in the ED was unremarkable, pt states that she has a technology resource teacher and called him this past week and has an appt with him soon for a med rec and check in. Pt on telemetry and will remain on it until D/C to monitor. Review of Systems Review of Systems: All systems reviewed & are unremarkable except as noted in HPI and below PMFSH Past Medical History Medical History (Updated 02/26/25 @ 12:02 by Chanel Bellamy APRN) Palpitations Carotid artery stenosis More than 50 percent stenosis of right internal carotid artery Renal artery stenosis Folic acid deficiency Type 2 diabetes mellitus Vitamin D deficiency Chronic anticoagulation Paroxysmal atrial fibrillation Pneumonia Vitamin B 12 deficiency Heart failure with preserved ejection fraction Hypothyroidism Peptic ulcer Deep venous thrombosis Gastroesophageal reflux disease Chronic hyponatremia Chronic, continuous use of opioids Chronic pain syndrome Obstructive sleep apnea Noncompliant with CPAP. Irritable bowel syndrome Hypertension Coronary artery disease Angioplasty of a diagonal lesion in 01/2018. Cardiac catheterization 06/2019 showed patent coronary arteries. Anxiety Depression Degenerative joint disease involving multiple joints Rheumatoid arthritis Hiatal hernia Asthma Hyperlipidemia Peripheral neuropathy Seasonal allergies Surgical History Surgical History H/O heart artery stent x2 History of exploratory laparotomy Exploratory laparotomy with segmental mid jejunal small bowel resection with [id number] stapled anti peristaltic jejunal anastomosis 10/19/23 History of cataract extraction History of carpal tunnel release History of arthroscopy of both shoulders History of phacoemulsification of cataract with intraocular lens implantation History of cholecystectomy History of appendectomy History of foot surgery History of cardiac catheterization Angioplasty of a diagonal stenosis 01/2018. Cardiac catheterization 06/2019 showed patent coronary arteries. History of hysterectomy Family History Family History Grandparent Diabetes mellitus Father Diabetes mellitus Acute myocardial infarction Hypertension Family history of cardiovascular disease Mother Diabetes mellitus Hypertension Sibling Diabetes mellitus Hypertension Social History Social History Social History: The patient lives in [place]. Her 2021. 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 Lifelong nonsmoker. No alcohol or illicit substance abuse. Per patient, POA is [place], friend. Code status: Full code Caffeine-soda Smoking status: Never smoker Second hand tobacco smoke exposure: No Alcohol intake: never Substance use: never Substance use type: does not use Other substance usage details: medical marijauna Do You Feel Safe in your Home?: Yes Lack of Transportation: No Lack of Food: Never True Current Housing: I Have Housing Concerned About Future Housing: No Difficulty Paying Gas/Electric Bills: No Difficulty Paying for Meds: No Currently Unemployed: No Education: Associate Degree Difficulty w/ Childcare or Family Care: No Spiritual care concerns: No Agree to blood products: Yes Meds Home Medications and Allergies Home Medications ?Medication ?Instructions ?Recorded ?Confirmed ?Type aspirin 81 mg tablet,delayed 81 mg PO DAILY 07/29/19 02/26/25 History release (Adult Low Dose Aspirin) cetirizine 10 mg capsule 10 mg PO DAILY 03/15/23 02/26/25 History ezetimibe 10 mg tablet 10 mg PO QHS 03/15/23 02/26/25 History folic acid 1 mg tablet 3 mg PO DAILY 03/15/23 02/26/25 History albuterol sulfate 90 mcg/actuation 2 puff inhalation QID PRN 06/22/23 02/26/25 History aerosol inhaler Shortness Of Breath Or Wheezing oxycodone-acetaminophen 10 mg-325 1 tablet PO Q6H PRN Pain (Scale 10/28/23 02/26/25 Rx mg tablet Score 4-6) #1 tablet cyanocobalamin (vitamin B-12) 1,000 mcg PO QAM #90 tabs 12/18/23 02/26/25 Rx 1,000 mcg tablet (Vitamin B-12) atorvastatin 40 mg tablet 40 mg PO QHS #90 tabs 02/04/24 02/26/25 Rx docusate sodium 100 mg capsule 100 mg PO DAILY 02/04/24 02/26/25 History (Dulcolax Stool Softener (docusate)) [id number]. coag-B. 1 tablet PO DAILY 02/04/24 02/26/25 History subtilis-inulin 1 billion cell-1 gram chew tab (Culturelle Probiotic-Multivit) pantoprazole 40 mg tablet,delayed 40 mg PO DAILY #30 tabs 05/28/24 02/26/25 Rx release apixaban 2.5 mg tablet (Eliquis) 2.5 mg PO Q12HR #60 tabs 06/10/24 02/26/25 Rx polyethylene glycol 3350 17 gram 17 g PO QAM PRN Constipation #30 ea 06/10/24 02/26/25 Rx oral powder packet (Miralax) acetaminophen 500 mg capsule 1,000 mg (2 x 500 mg) PO Q6H PRN 07/25/24 02/26/25 Rx pain #30 caps levothyroxine 88 mcg tablet See Rx Instructions .Route 09/27/24 02/26/25 Rx .COMPLEX #90 tabs nitroglycerin 0.4 mg sublingual See Rx Instructions .Route 09/27/24 02/26/25 Rx tablet .COMPLEX #25 tabs guanfacine 1 mg tablet 1 mg PO HS 10/07/24 02/26/25 History hydralazine 25 mg tablet 50 mg PO TID 10/07/24 02/26/25 History magnesium oxide 400 mg (241.3 mg 400 mg PO QAM #90 tabs 11/25/24 02/26/25 Rx magnesium) tablet losartan 100 mg tablet 100 mg PO DAILY #90 tabs 12/09/24 02/26/25 Rx montelukast 10 mg tablet See Rx Instructions .Route 12/24/24 02/26/25 Rx .COMPLEX #90 tabs linaclotide 290 mcg capsule 290 mcg PO QAM #90 caps 02/23/25 02/26/25 Rx (Linzess) amiloride 5 mg tablet 5 mg PO QAM 02/26/25 02/26/25 History buspirone 10 mg tablet 10 mg PO QAM AND QHS 02/26/25 02/26/25 History ferrous sulfate 325 mg (65 mg 325 mg PO QHS 02/26/25 02/26/25 History iron) tablet,delayed release fluticasone propionate 50 1 spray intranasal BID PRN allergy 02/26/25 02/26/25 History mcg/actuation nasal symptoms spray,suspension (Flonase Allergy Relief) ondansetron 4 mg disintegrating 4 mg PO Q6H PRN nausea and vomiting 02/26/25 02/26/25 History tablet simethicone 80 mg chewable tablet 160 mg PO QID PRN gas 02/26/25 02/26/25 History sodium chloride 1,000 mg soluble 1,000 mg PO TID 02/26/25 02/26/25 History tablet Allergies Allergy/AdvReac Type Severity Reaction Status Date / Time No Known Allergies Allergy Verified 02/25/25 17:09 Vital Signs Vital Signs - 24 hr 02/25/25 17:01 02/25/25 19:36 02/25/25 20:30 Temperature 97.1 F L 97.8 F Pulse Rate 82 90 90 Respiratory Rate 18 18 18 Blood Pressure 163/54 H 198/101 H 149/79 H Pulse Oximetry 100 100 99 Oxygen Delivery Room Air 02/25/25 21:32 02/25/25 22:01 02/25/25 22:30 Temperature Pulse Rate 87 81 78 Respiratory Rate 11 L 10 L 11 L Blood Pressure 122/64 112/55 L Pulse Oximetry 97 98 99 Oxygen Delivery 02/25/25 22:31 02/25/25 22:45 02/25/25 23:00 Temperature Pulse Rate 71 80 65 Respiratory Rate 12 11 L 11 L Blood Pressure 124/50 L Pulse Oximetry 97 98 96 Oxygen Delivery 02/25/25 23:01 02/25/25 23:36 02/25/25 23:53 Temperature Pulse Rate 72 71 66 Respiratory Rate 14 13 11 L Blood Pressure 122/54 L Pulse Oximetry 96 98 98 Oxygen Delivery 02/26/25 00:10 02/26/25 00:15 02/26/25 01:07 Temperature Pulse Rate 70 72 66 Respiratory Rate 13 12 11 L Blood Pressure Pulse Oximetry 97 97 98 Oxygen Delivery 02/26/25 01:15 02/26/25 01:30 02/26/25 01:31 Temperature Pulse Rate 72 69 68 Respiratory Rate 11 L 14 11 L Blood Pressure 142/66 H Pulse Oximetry 98 98 97 Oxygen Delivery 02/26/25 01:45 02/26/25 02:14 02/26/25 04:00 Temperature 97.8 F Pulse Rate 69 65 72 Respiratory Rate 15 Blood Pressure 156/60 H Pulse Oximetry 97 98 Oxygen Delivery 02/26/25 04:08 02/26/25 08:04 Temperature 98.9 F Pulse Rate 65 64 Respiratory Rate 18 Blood Pressure 163/61 H Pulse Oximetry 100 Oxygen Delivery Exam Narrative: Elderly Const: General: comfortable and uncomfortable (currently feeling dizzy when she moves her head) Other: +[place] HENMT: Ears: TM's normal bilaterally Face/Nose/Sinus: Normal nares present Mouth: Yes moist mucous membranes Eyes: General: appearance normal, both eyes and all related structures Sclera: sclerae normal Pupils: Equal, round and reactive pupils present EOM: EOMs intact bilaterally Neck: Neck: supple and no JVD Resp: Effort & Inspection: normal respiratory effort Auscultation: clear to auscultation bilaterally Cardio: Rate: regular rate Rhythm: regular rhythm GI: Inspection: non-distended GI Palp: Yes Soft to palpation and No Tenderness to palpation present (GI) Auscultation: normal bowel sounds : General: Yes bladder normal to palpation Skin: General skin exam: normal color and no rashes or lesions noted Wounds: no wounds Neuro: Speech: normal speech Motor exam (neuro): Normal motor muscle tone present throughout Sensory Exam: normal sensation Extrem: General: normal to inspection Psych: Mental Status: mental status grossly normal Affect: normal affect H&P: Results Labs Labs: Short CBC 02/25/25 Range/Units 20:04 WBC 11.7 H (4.5-10.0) K/mm3 Hgb 12.7 (12.0-15.0) g/dL Hct 37.4 (37.0-47.0) % Plt Count 348 (150-375) k/mm3 BMP 02/25/25 20:04 Sodium 129 L Potassium 4.3 Chloride 95 L Carbon Dioxide 24 BUN 12 Creatinine 0.63 L Glucose 112 H Calcium 9.7 Liver Function 02/25/25 Range/Units 20:04 Total Bilirubin 1.2 (0.2-1.3) mg/dL AST 26 (14-36) U/L ALT 23 (6-35) U/L Alkaline Phosphatase 108 (38-126) U/L Albumin 4.6 (3.5-5.1) g/dL Urine 02/25/25 Range/Units 19:34 Urine Color Yellow (Yellow) Urine Appearance Clear (Clear) Urine pH 7.0 (5.0-9.0) Ur Specific [place] 1.006 (1.001-1.035) Urine Protein Negative (Negative) mg/dL Urine Glucose (UA) Negative (Negative) mg/dL Assessment and Plan Assessment and plan (1) Vertigo: Code(s): R42 - Dizziness and giddiness Status: Acute Assessment and Plan: Per ED note, pt was better after Meclizine but wanted to be admitted x1 night for sx control -MRI of brain ordered due to hx of severe carotid stenosis and to r/o CVA, pending -Meclizine ordered inpt for sx control and probable rx for D/C, will continue to monitor sx (2) Palpitations: Code(s): R00.2 - Palpitations Status: Acute Assessment and Plan: Hx of afib, NSR unremarkable in ED -Continue Eliquis 2.5mg BID here -Continue telemetry -Pt reports that her technology resource teacher is aware and that she has an appt with him soon (3) Hypertension: Qualifiers: Hypertension type: primary hypertension Qualified Code(s): I10 - Essential (primary) hypertension Code(s): I10 - Essential (primary) hypertension Status: Chronic Assessment and Plan: Continue home meds (4) Atrial fibrillation: Code(s): I48.91 - Unspecified atrial fibrillation Status: Acute Assessment and Plan: See above. (5) Carotid artery stenosis: Code(s): I65.29 - Occlusion and stenosis of unspecified carotid artery Status: Acute Assessment and Plan: Scheduled for endarterectomy in November 2024 but rescheduled for x6 months due to uncontrolled HTN -Continue home meds including atorvastatin and ezetimibe -Control BP (6) Constipation due to opioid therapy: Code(s): K59.03 - Drug induced constipation; T40.2X5A - Adverse effect of other opioids, initial encounter Status: Chronic Assessment and Plan: Restarted on home meds (7) Hyponatremia: Code(s): E87.1 - Hypo-osmolality and hyponatremia Status: Chronic Assessment and Plan: Continue home meds of Na chloride tabs daily -trend labs (8) Hypomagnesemia: Code(s): E83.42 - Hypomagnesemia Status: Acute Assessment and Plan: Continue home meds of Na chloride tabs daily -trend labs (9) Heart failure with preserved ejection fraction: Qualifiers: Heart failure chronicity: chronic Qualified Code(s): I50.32 - Chronic diastolic (congestive) heart failure Code(s): I50.30 - Unspecified diastolic (congestive) heart failure Status: Acute Assessment and Plan: -Pt denies any CP/SOB/Edema Restart Amiloride (10) Hearing loss: Code(s): H91.90 - Unspecified hearing loss, unspecified ear Status: Acute (11) Type 2 diabetes mellitus: Qualifiers: Diabetes mellitus supervisor intermediates insulin use: without longterm use Diabetes mellitus complication status: without complication Qualified Code(s): E11.9 - Type 2 diabetes mellitus without complications Code(s): E11.9 - Type 2 diabetes mellitus without complications Status: Chronic Assessment and Plan: Sliding scale & hypoglycemia protocol placed -It does not appear that she takes any DM medication at home, will continue to trend her levels Plan Await MRI results, trend labs, and trend sx and sx control. Continue home meds. Quality VTE Prophylaxis VTE prophylaxis: pharmacologic ordered (home eliquis ordered) Hospitalist [facility] Advance Care Plan I have confirmed that the patient's Advanced Care Plan is present, code status is documented, or surrogate decision maker is listed in patient medical record.: Yes Medication Reconciliation I have utilized all available resources to obtain, update and review the patients current medications (includes all prescriptions, OTC, herbals, cannabis, and nutritional supplements).: No The patient is not eligible for med reconciliation; the patient is in a emergent medical situation where delaying treatment would jeopardize the patients health.: No
[2025-02-26] MEDS: hydrALAZINE HCL 25 MG TABLET 50 MG PO ×2 (12:49→17:39)
[2025-02-26] MEDS: SODIUM CHLORIDE 1 GM TABLET PO ×2 (12:49→17:39)
[2025-02-26 16:45] LABS: Glucose Point of Care 132 mg/dl (65-105)
[2025-02-26 20:56] LABS: Glucose Point of Care 119 mg/dl (65-105)
[2025-02-26] MEDS: guanFACINE HCL 1 MG TABLET PO (21:23)
[2025-02-26] MEDS: ATORVASTATIN 40 MG TABLET PO (21:23)
[2025-02-26] MEDS: ACETAMINOPHEN 500 MG TABLET 1000 MG PO (21:23)
[2025-02-26] MEDS: FERROUS SULFATE 325 MG TABLET DR PO (21:23)
[2025-02-26] MEDS: EZETIMIBE 10 MG TABLET PO (21:23)
[2025-02-27] VITALS (9 sets, daily range): BP systolic 126–154; BP diastolic 54–67; PULSE 64–73; RESP 18; TEMP 36.5–37.1; O2SAT 97–99
[2025-02-27] MEDS: HYDROcodone/acetaminophen (*CRX) 5-325 MG TABLET 2 TAB PO ×4 (01:02→18:54)
[2025-02-27 06:14] LABS: Basophils Absolute Auto 0.1 K/mm3 (0.0-0.1); Basophils Percent Auto 0.9 % (0.2-1.2); Eosinophils Absolute Auto 0.1 K/mm3 (0-0.3); Eosinophils Percent Auto 1.1 % (0-4.4); Hematocrit 33.9 % (37.0-47.0); Hemoglobin 11.4 g/dL (12.0-15.0); Immature Granulocyte Absolute 0.04 K/mm3 (0.00-0.031); Immature Granulocyte Percent A 0.5 % (0-0.5); Lymphocytes Absolute Auto 4.16 K/mm3 (0.9-3.2); Lymphocytes Percent Auto 47.3 % (18.3-44.2); Mean Corpuscular HGB Conc 33.6 g/dl (32-36); Mean Corpuscular Hemoglobin 32.1 pg (26-34); Mean Corpuscular Volume 95.5 fl (80-100); Mean Platelet Volume 9.2 fl (7.4-10.4); Monocytes Absolute Auto 0.7 K/mm3 (0.1-0.6); Monocytes Percent Auto 7.7 % (2.6-8.5); Neutrophils Absolute Auto 3.7 K/mm3 (1.3-6.7); Neutrophils Percent Auto 42.5 % (45.5-73.1); Platelet Count Result 285 k/mm3 (150-375); Red Blood Count 3.55 M/mm3 (4.2-5.4); Red Cell Distribution Width 12.7 % (11.5-14.5); White Blood Count 8.8 K/mm3 (4.5-10.0)
[2025-02-27 06:27] LABS: Alanine Aminotransferase 17 U/L (6-35); Albumin Level 3.6 g/dL (3.5-5.1); Alkaline Phosphatase 73 U/L (38-126); Anion Gap 8 mmol/L (4-12); Aspartate Amino Transferase 25 U/L (14-36); Bilirubin,Total 1.1 mg/dL (0.2-1.3); Blood Urea Nitrogen 16 mg/dL (7-17); Calcium 8.7 mg/dL (8.4-10.2); Carbon Dioxide 23 mmol/L (22-30); Chloride 94 mmol/L (98-107); Estimated Glomerular Filt Rate 60; Glucose 98 mg/dL (65-110); Magnesium 1.7 mg/dL (1.6-2.3); Potassium 4.5 mmol/L (3.4-5.0); Sodium 125 mmol/L (137-145); Total Protein 5.9 g/dL (6.3-8.2)
[2025-02-27] MEDS: LEVOTHYROXINE SODIUM 88 MCG TABLET BY MOUTH (06:29)
[2025-02-27] MEDS: LINACLOTIDE 145 MCG CAPSULE 290 MCG PO (06:31)
[2025-02-27 08:04] LABS: Glucose Point of Care 111 mg/dl (65-105)
[2025-02-27] MEDS: MECLIZINE HCL 25 MG TABLET PO (09:49)
[2025-02-27] MEDS: DOCUSATE SODIUM 100 MG CAPSULE 200 MG PO (09:50)
[2025-02-27] MEDS: busPIRone HCL 10 MG TABLET PO ×2 (09:50→21:50)
[2025-02-27] MEDS: THERAPEUTIC MULTIVITAMINS/MINERALS TAB (*BKC) 1 TABLET PO (09:50)
[2025-02-27] MEDS: LOSARTAN POTASSIUM 100 MG TABLET PO (09:50)
[2025-02-27] MEDS: LORATADINE 10 MG TABLET PO (09:50)
[2025-02-27] MEDS: MAGNESIUM OXIDE 400 MG TABLET PO (09:50)
[2025-02-27] MEDS: hydrALAZINE HCL 25 MG TABLET 50 MG PO ×3 (09:50→17:26)
[2025-02-27] MEDS: SODIUM CHLORIDE 1 GM TABLET PO ×3 (09:50→17:26)
[2025-02-27] MEDS: MONTELUKAST SODIUM 10 MG TABLET BY MOUTH (09:50)
[2025-02-27] MEDS: aMILoride HCL 5 MG TABLET PO (09:50)
[2025-02-27] MEDS: PANTOPRAZOLE 40 MG TABLET PO (09:50)
[2025-02-27] MEDS: CYANOCOBALAMIN 1,000 MCG TABLET 1000 MCG PO (09:51)
[2025-02-27] MEDS: FOLIC ACID 1 MG TABLET 3 MG PO (09:51)
[2025-02-27] MEDS: APIXABAN 2.5 MG TABLET PO ×2 (09:51→21:50)
[2025-02-27] MEDS: ASPIRIN 81 MG ENTERIC TABLET PO (09:51)
[2025-02-27 12:00] LABS: Glucose Point of Care 213 mg/dl (65-105)
[2025-02-27] MEDS: INSULIN ASPART (*BKC) 100 UNITS/ML SUB-Q (12:08)
--- NOTE | 2025-02-27 14:54 | P.PNIM_ITS ---
Progress Note: A&P Assessment and Plan (1) Vertigo: Code(s): R42 - Dizziness and giddiness Status: Acute Assessment and Plan: Per ED note, pt was better after Meclizine but wanted to be admitted x1 night for sx control -MRI of brain ordered due to hx of severe carotid stenosis and to r/o CVA, pending -Meclizine ordered inpt for sx control and probable rx for D/C, will continue to monitor sx 02/27: Pt reports that she is still very dizzy, will continue meclizine. -MRI of brain yielded Moderate sized left mastoid effusion. Otherwise unremarkable brain MR -Spoke to ENT today and Dr. Nuno recommended once pt stable for D/C, to D/C with ENT f/u and he will drain the mastoid if he is able to visualize the effusion. Also recs for vestibular rehab and canolith repositioning procedures. -Pt very leery to go home with active dizziness due to safety at home. She is very scared that she will end up falling. Pt to work with PT/OT in hospital with hopeful D/C with vestibular rehab and canolith repositioning procedures and ENT f/u. 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 (5) Carotid artery stenosis: Code(s): I65.29 - Occlusion and stenosis of unspecified carotid artery Status: Acute Assessment and Plan: Scheduled for endarterectomy in November 2024 but rescheduled for x6 months due to uncontrolled HTN -Continue home meds including atorvastatin and ezetimibe -Control BP (6) Constipation due to opioid therapy: Code(s): K59.03 - Drug induced constipation; T40.2X5A - Adverse effect of other opioids, initial encounter Status: Chronic Assessment and Plan: Restarted on home meds (7) Hyponatremia: Code(s): E87.1 - Hypo-osmolality and hyponatremia Status: Chronic Assessment and Plan: Continue home meds of Na chloride tabs daily, encourage intake -trend labs (8) Hypomagnesemia: Code(s): E83.42 - Hypomagnesemia Status: Acute Assessment and Plan: Continue home meds of Na chloride tabs daily -trend labs (9) Heart failure with preserved ejection fraction: Qualifiers: Heart failure chronicity: chronic Qualified Code(s): I50.32 - Chronic diastolic (congestive) heart failure Code(s): I50.30 - Unspecified diastolic (congestive) heart failure Status: Acute Assessment and Plan: -Pt denies any CP/SOB/Edema Restart Amiloride (10) Hearing loss: Code(s): H91.90 - Unspecified hearing loss, unspecified ear Status: Acute (11) Type 2 diabetes mellitus: Qualifiers: Diabetes mellitus termite inspector insulin use: without termite inspector use Diabetes mellitus complication status: without complication Qualified Code(s): E11.9 - Type 2 diabetes mellitus without complications Code(s): E11.9 - Type 2 diabetes mellitus without complications Status: Chronic Assessment and Plan: Sliding scale & hypoglycemia protocol placed -It does not appear that she takes any DM medication at home, will continue to trend her levels Plan Continue to trend labs, and trend sx and sx control. Continue home meds. Subjective Date/time seen: 02/27/25 1108 Interval history: Per ED provider: Patient with history of paroxysmal AFib, supposed to have endarterectomy but case canceled due to uncontrolled blood pressure, presents here due to persistent vertigo that started about 2 days ago, initially with mostly intermittent but now much more frequent, much worse with position, not too bad when she is lying at rest. Also feels like her heart has been racing. Patient presenting with vertigo, ongoing for last 2 days, she does also have a history of bilateral carotid stenosis. Since her symptoms are entirely positional, I have lower concern for this being a CTA, and regardless she is out of any window for intervention. She is given a dose of meclizine and on re-evaluation, she states she actually feels much better. She was able to sit up and was able to use the bedside commode with assistance from nursing, though this did bring back some of her vertigo so she is given additional dose of meclizine. CTA head/neck does not show any acute stroke, does show the known stenosis On repeat evaluation, her dizziness has essentially resolved, she is laying on her right side and in no distress. I did discuss going home at this time, however patient is concerned about going home and would like to be admitted for 1 night, which seems reasonable given her age and symptoms. 02/26: Pt resting in bed when I went to visit her. Pt reports that she is currently having vertigo when she moves her head so she is trying to stay as still as possible. Reviewed pt's hx with her which includes: paroxysmal afib (Eliquis 2.5 BID), carotid stenosis (scheduled for endarterectomy in November 2024 but rescheduled for x6 months due to uncontrolled HTN), SBO (recent admit to [facility] x3 months ago and resolved with NG and bowel rest), hiatal hernia, RA, and osteoporosis of the spine. Pt states that over the last several days she has also been experiencing palpitations, but no CP/SOB. 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 Pt on telemetry and will remain on it until D/C to monitor. 02/27: Pt resting in bed and still c/o severe vertigo. Pt reports today that she is very afraid to go home due to her continued vertigo, states that she cannot walk and cannot use the bathroom without the fear of falling because her dizziness is so bad. Pt reports that she lives alone at home. Plan for pt to work with PT/OT tomorrow for eval and hopeful D/C with vestibular rehab and canolith repositioning procedures. Review of Systems Review of Systems: All systems reviewed & are unremarkable except as noted in HPI and below Exam Narrative: Elderly Const: General: comfortable and uncomfortable (currently feeling dizzy when she moves her head) Other: +TELIDA HENMT: Ears: TM's normal bilaterally (cerumen in both external canals, no impaction) Face/Nose/Sinus: Normal nares present Mouth: Yes moist mucous membranes Eyes: General: appearance normal, both eyes and all related structures Sclera: sclerae normal Neck: Neck: supple and no JVD Resp: Effort & Inspection: normal respiratory effort Auscultation: clear to auscultation bilaterally Cardio: Rate: regular rate Rhythm: regular rhythm GI: Inspection: non-distended Auscultation: normal bowel sounds : General: Yes bladder normal to palpation Bimanual exam- vagina & uteru s: bladder normal to palpation Skin: General skin exam: normal color and no rashes or lesions noted Wounds: no wounds Neuro: Cranial nerves: Yes Equal, round and reactive pupils present Speech: normal speech Motor exam (neuro): Normal motor muscle tone present throughout Sensory Exam: normal sensation Extrem: General: normal to inspection Psych: Mental Status: mental status grossly normal Affect: normal affect Objective Data Vital Signs Vital Signs: Vital Signs - 24 hr 02/26/25 14:55 02/26/25 16:04 02/26/25 21:21 Temperature Pulse Rate 72 73 Respiratory Rate 16 Blood Pressure 99/57 L Pulse Oximetry 98 97 Oxygen Delivery Room Air 02/26/25 21:30 02/26/25 21:30 02/27/25 00:00 Temperature 98.2 F Pulse Rate 79 64 Respiratory Rate 18 Blood Pressure 139/67 Pulse Oximetry 97 Oxygen Delivery Room Air 02/27/25 00:00 02/27/25 04:00 02/27/25 06:21 Temperature 97.7 F Pulse Rate 66 64 66 Respiratory Rate 18 Blood Pressure 154/65 H Pulse Oximetry 98 Oxygen Delivery 02/27/25 08:00 02/27/25 08:00 02/27/25 12:00 Temperature Pulse Rate 71 71 Respiratory Rate Blood Pressure Pulse Oximetry Oxygen Delivery Room Air Intake/Output Intake/Output: Intake & Output 02/24/25 02/25/25 02/26/25 02/27/25 23:59 23:59 23:59 23:59 Intake Total 1070 240 Output Total 500 600 Balance 570 -360 Meds/Results Medications: Active Medications Generic Name Dose Route Start Last Admin Trade Name Freq PRN Reason Stop Dose Admin Acetaminophen 1,000 mg 02/26/25 10:26 02/26/25 21:23 Acetaminophen 500 Mg Tablet PO 1,000 mg Q6H PRN Administration pain Hydrocodone Bitart/Acetaminophen 2 tab 02/26/25 00:52 02/27/25 13:02 Hydrocodone/Acetaminophen (*Crx) 5-325 Mg Tablet PO 2 tab Q6H PRN Administration Pain Rated 7-10 Albuterol 2 puff 02/26/25 10:26 Albuterol Sulfate (*Sp) Aerosol 1 Puff INHALATION QID PRN Shortness Of Breath Or Wheezing Amiloride HCl 5 mg 02/26/25 11:00 02/27/25 09:50 Amiloride Hcl 5 Mg Tablet PO 5 mg QAM GINO Administration Apixaban 2.5 mg 02/26/25 21:00 02/27/25 09:51 Apixaban 2.5 Mg Tablet PO 2.5 mg Q12HR GINO Administration Aspirin 81 mg 02/26/25 10:00 02/27/25 09:51 Aspirin 81 Mg Enteric Tablet PO 81 mg DAILY GINO Administration Atorvastatin Calcium 40 mg 02/26/25 21:00 02/26/25 21:23 Atorvastatin 40 Mg Tablet PO 40 mg QHS GINO Administration Buspirone HCl 10 mg 02/26/25 11:00 02/27/25 09:50 Buspirone Hcl 10 Mg Tablet PO 10 mg Q12HR GINO Administration Cyanocobalamin 1,000 mcg 02/26/25 11:00 02/27/25 09:51 Cyanocobalamin 1,000 Mcg Tablet PO 1,000 mcg QAM GINO Administration Dextrose 12.5 gm 02/26/25 12:07 Dextrose 50% 25 Gm/50 Ml Syringe IV PUSH PRN PRN Hypoglycemia Protocol Docusate Sodium 200 mg 02/26/25 10:40 02/27/25 09:50 Docusate Sodium 100 Mg Capsule PO 200 mg DAILY GINO Administration Ezetimibe 10 mg 02/26/25 21:00 02/26/25 21:23 Ezetimibe 10 Mg Tablet PO 10 mg QHS GINO Administration Ferrous Sulfate 325 mg 02/26/25 21:00 02/26/25 21:23 Ferrous Sulfate [address] PO 325 mg QHS GINO Administration Fluticasone Propionate 1 spray 02/26/25 10:26 Fluticasone Propionate 0.05% Na Spr 16 Gm Btl (*Bkc) NASAL BID PRN allergy symptoms Folic Acid 3 mg 02/26/25 11:00 02/27/25 09:51 Folic Acid 1 Mg Tablet PO 3 mg DAILY GINO Administration Glucagon 1 mg 02/26/25 12:07 Glucagon For Inj 1 Mg Vial IM PRN PRN Hypoglycemia Protocol Glucose 15 gm 02/26/25 12:07 Glucose Oral Gel 15 Gm Of Glucse In 37.5 Gm Tube PO PRN PRN Hypoglycemia Protocol Guanfacine HCl 1 mg 02/26/25 21:00 02/26/25 21:23 Guanfacine Hcl 1 Mg Tablet PO 1 mg HS GINO Administration Hydralazine HCl 50 mg 02/26/25 13:00 02/27/25 12:08 Hydralazine Hcl 25 Mg Tablet PO 50 mg TID GINO Administration Dextrose 1,000 mls @ 100 mls/hr 02/26/25 12:07 Dextrose 5% 1,000 Ml IVPB PRN PRN Hypoglycemia Protocol Insulin Aspart 2 - 5 units 02/26/25 17:00 02/27/25 12:08 Insulin Aspart (*Bkc) 100 Units/Ml SUB-Q 2 units TIDWM GINO Administration Protocol Levothyroxine Sodium 88 mcg 02/27/25 06:30 02/27/25 06:29 Levothyroxine Sodium 88 Mcg Tablet BY MOUTH 88 mcg DAILY@0630 GINO Administration Linaclotide 290 mcg 02/26/25 11:00 02/27/25 06:31 Linaclotide 145 Mcg Capsule PO 290 mcg DAILY@0800 GINO Administration Loratadine 10 mg 02/26/25 11:00 02/27/25 09:50 Loratadine 10 Mg Tablet PO 10 mg QAM GINO Administration Losartan Potassium 100 mg 02/26/25 11:00 02/27/25 09:50 Losartan Potassium 100 Mg Tablet PO 100 mg DAILY GINO Administration Magnesium Oxide 400 mg 02/26/25 11:00 02/27/25 09:50 Magnesium Oxide 400 Mg Tablet PO 400 mg QAM GINO Administration Meclizine HCl 25 mg 02/26/25 11:28 02/27/25 09:49 Meclizine Hcl 25 Mg Tablet PO 25 mg BID PRN Administration Vertigo Montelukast Sodium 10 mg 02/26/25 11:00 02/27/25 09:50 Montelukast Sodium 10 Mg Tablet BY MOUTH 10 mg DAILY GINO Administration Multivitamins/Calcium 1 tablet 02/27/25 09:00 02/27/25 09:50 Therapeutic Multivitamins/Minerals Tab (*Bkc) PO 1 tablet QAM GINO Administration Nitroglycerin 0.4 mg 02/26/25 10:30 Nitroglycerin Sl 0.4 Mg Tablet SUBLINGUAL Q5MIN PRN Chest Pain Ondansetron HCl 4 mg 02/26/25 10:26 Ondansetron Hcl Odt 4 Mg Tablet PO Q6H PRN nausea and vomiting Oxycodone/Acetaminophen 1 tab 02/26/25 10:26 Oxycodone/Acetaminophen (*Crx) 10-325 Mg Tablet PO Q6H PRN Pain (Scale Score 4-6) Pantoprazole Sodium 40 mg 02/27/25 09:00 02/27/25 09:50 Pantoprazole 40 Mg Tablet PO 40 mg DAILY GINO Administration Polyethylene Glycol 17 gm 02/26/25 10:26 Polyethylene Glycol 3350 17 Gm Powd.Pack PO QAM PRN Constipation Simethicone 160 mg 02/26/25 10:26 Simethicone 80 Mg Tab.Chew PO QID PRN gas Sodium Chloride 1 gm 02/26/25 13:00 02/27/25 12:08 Sodium Chloride 1 Gm Tablet PO 1 gm TID GINO Administration Radiology Results: ITS Impressions Cervical Spine CT 02/25/25 22:39 IMPRESSION: No acute osseous abnormality cervical spine. Degenerative disc disease at the level of C5-C6. Head/Neck CTA 02/25/25 22:49 IMPRESSION: 1. CTA head and neck. Percent stenosis per NASCET criteria is 90% bilaterally. 2. Small caliber left A1 segment. Physician: Ronda Donald MD Was notified with the result of the patient at 11:14 PM on February 25, 2025. Brain MRI 02/26/25 14:55 IMPRESSION: 1. Moderate sized left mastoid effusion. Otherwise unremarkable brain MR. Labs Labs: Laboratory Results - last 24 hr 02/26/25 02/26/25 02/27/25 16:32 20:40 05:54 WBC 8.8 RBC 3.55 L Hgb 11.4 L Hct 33.9 L MCV 95.5 MCH 32.1 MCHC 33.6 RDW 12.7 Plt Count 285 MPV 9.2 Immature Gran % (Auto) 0.5 Neut % (Auto) 42.5 L Lymph % (Auto) 47.3 H [place] % (Auto) 7.7 Eos % (Auto) 1.1 Baso % (Auto) 0.9 Lymph # (Auto) 4.16 H [place] # (Auto) 0.7 H Eos # (Auto) 0.1 Baso # (Auto) 0.1 Abs Immat Gran (auto) 0.04 H Absolute Neuts (auto) 3.7 Absolute Nucleated RBC 0.000 Nucleated RBC % 0.0 Sodium 125 L Potassium 4.5 Chloride 94 L Carbon Dioxide 23 Anion Gap 8 BUN 16 Creatinine 0.90 Estim Creat Clear Calc Not Reportable Estimated GFR 60 Glucose 98 POC Capillary Glucose 132 H 119 H Calcium 8.7 Magnesium 1.7 Total Bilirubin 1.1 AST 25 ALT 17 Alkaline Phosphatase 73 Total Protein 5.9 L Albumin 3.6 02/27/25 02/27/25 07:55 11:51 WBC RBC Hgb Hct MCV MCH MCHC RDW Plt Count MPV Immature Gran % (Auto) Neut % (Auto) Lymph % (Auto) [place] % (Auto) Eos % (Auto) Baso % (Auto) Lymph # (Auto) [place] # (Auto) Eos # (Auto) Baso # (Auto) Abs Immat Gran (auto) Absolute Neuts (auto) Absolute Nucleated RBC Nucleated RBC % Sodium Potassium Chloride Carbon Dioxide Anion Gap BUN Creatinine Estim Creat Clear Calc Estimated GFR Glucose POC Capillary Glucose 111 H 213 H Calcium Magnesium Total Bilirubin AST ALT Alkaline Phosphatase Total Protein Albumin Quality VTE Prophylaxis VTE prophylaxis: pharmacologic ordered (home eliquis ordered)
[2025-02-27 17:02] LABS: Glucose Point of Care 120 mg/dl (65-105)
[2025-02-27] MEDS: FERROUS SULFATE 325 MG TABLET DR PO (21:50)
[2025-02-27] MEDS: guanFACINE HCL 1 MG TABLET PO (21:50)
[2025-02-27] MEDS: EZETIMIBE 10 MG TABLET PO (21:50)
[2025-02-27] MEDS: SIMETHICONE 80 MG TAB.CHEW 160 MG PO (21:51)
[2025-02-27] MEDS: ATORVASTATIN 40 MG TABLET PO (21:51)
[2025-02-28] VITALS: PULSE 71
[2025-02-28] MEDS: HYDROcodone/acetaminophen (*CRX) 5-325 MG TABLET 2 TAB PO ×3 (00:55→12:45)
[2025-02-28 04:00] VITALS: PULSE 67
[2025-02-28 05:41] LABS: Basophils Absolute Auto 0.1 K/mm3 (0.0-0.1); Basophils Percent Auto 0.7 % (0.2-1.2); Eosinophils Absolute Auto 0.1 K/mm3 (0-0.3); Eosinophils Percent Auto 1.2 % (0-4.4); Hematocrit 33.7 % (37.0-47.0); Hemoglobin 11.3 g/dL (12.0-15.0); Immature Granulocyte Absolute 0.07 K/mm3 (0.00-0.031); Immature Granulocyte Percent A 0.7 % (0-0.5); Lymphocytes Absolute Auto 3.46 K/mm3 (0.9-3.2); Lymphocytes Percent Auto 35.3 % (18.3-44.2); Mean Corpuscular HGB Conc 33.5 g/dl (32-36); Mean Corpuscular Hemoglobin 31.6 pg (26-34); Mean Corpuscular Volume 94.1 fl (80-100); Mean Platelet Volume 9.2 fl (7.4-10.4); Monocytes Absolute Auto 0.7 K/mm3 (0.1-0.6); Monocytes Percent Auto 7.6 % (2.6-8.5); Neutrophils Absolute Auto 5.3 K/mm3 (1.3-6.7); Neutrophils Percent Auto 54.5 % (45.5-73.1); Platelet Count Result 280 k/mm3 (150-375); Red Blood Count 3.58 M/mm3 (4.2-5.4); Red Cell Distribution Width 12.6 % (11.5-14.5); White Blood Count 9.8 K/mm3 (4.5-10.0)
[2025-02-28 05:56] LABS: Alanine Aminotransferase 18 U/L (6-35); Albumin Level 3.3 g/dL (3.5-5.1); Alkaline Phosphatase 82 U/L (38-126); Anion Gap 7 mmol/L (4-12); Aspartate Amino Transferase 25 U/L (14-36); Bilirubin,Total 0.9 mg/dL (0.2-1.3); Blood Urea Nitrogen 18 mg/dL (7-17); Calcium 8.7 mg/dL (8.4-10.2); Carbon Dioxide 21 mmol/L (22-30); Chloride 98 mmol/L (98-107); Estimated Glomerular Filt Rate 60; Glucose 115 mg/dL (65-110); Magnesium 1.7 mg/dL (1.6-2.3); Sodium 126 mmol/L (137-145); Total Protein 5.7 g/dL (6.3-8.2)
[2025-02-28 06:00] VITALS: BP 150/72; PULSE 65; RESP 18; TEMP 36.7; O2SAT 98
[2025-02-28 06:30] LABS: Glucose Point of Care 122 mg/dl (65-105)
[2025-02-28] MEDS: LEVOTHYROXINE SODIUM 88 MCG TABLET BY MOUTH (06:46)
[2025-02-28 08:00] VITALS: PULSE 65; RESP 18; O2SAT 98
--- NOTE | 2025-02-28 08:32 | P.DS_ITS ---
DS: Admitting Diagnosis Discharge Date 02/28/2025 Admitting Diagnosis Vertigo DS: Discharge Diagnosis Discharge Diagnosis (1) Vertigo: Code(s): R42 - Dizziness and giddiness Status: Acute Assessment and Plan: Per ED note, pt was better after Meclizine but wanted to be admitted x1 night for sx control -MRI of brain ordered due to hx of severe carotid stenosis and to r/o CVA, pending -Meclizine ordered inpt for sx control and probable rx for D/C, will continue to monitor sx 02/27: Pt reports that she is still very dizzy, will continue meclizine. -MRI of brain yielded Moderate sized left mastoid effusion. Otherwise unremarkable brain MR -Spoke to ENT today and Dr. Nuno recommended once pt stable for D/C, to D/C with ENT f/u and he will drain the mastoid if he is able to visualize the effusion. Also recs for vestibular rehab and canolith repositioning procedures. -Pt very leery to go home with active dizziness due to safety at home. She is very scared that she will end up falling. Pt to work with PT/OT in hospital with hopeful D/C with vestibular rehab and canolith repositioning procedures and ENT f/u. 02/28: Pt to be looking better today, she is sitting up in bed eating breakfast. She reports that she is still feeling dizzy, however, is more comfortable going home today. -I updated her on the arrangements I have made for her to have home health PT come to her house for vestibular therapy/canolith repositioning, they will be calling her to give her further instruction. -Pt also sent home with ENT f/u, she is aware that she has to call their office to make an appt. -Pt will also be sent home with an rx for meclizine for her sx. (2) Palpitations: Code(s): R00.2 - Palpitations Status: Acute Assessment and Plan: Hx of afib, NSR unremarkable in ED, has continued to be stable and NSR inpt -Continue Eliquis 2.5mg BID here and at home -Pt reports that her ticket speculator is aware and that she has an appt with him on this upcoming Friday, 03/02. (3) Hypertension: Qualifiers: Hypertension type: primary hypertension Qualified Code(s): I10 - Essential (primary) hypertension Code(s): I10 - Essential (primary) hypertension Status: Chronic Assessment and Plan: Continue home meds, to resume at home as well (4) Atrial fibrillation: Code(s): I48.91 - Unspecified atrial fibrillation Status: Acute Assessment and Plan: See above. (5) Carotid artery stenosis: Code(s): I65.29 - Occlusion and stenosis of unspecified carotid artery Status: Acute Assessment and Plan: Scheduled for endarterectomy in November 2024 but rescheduled for x6 months due to uncontrolled HTN -Continue home meds including atorvastatin and ezetimibe, continue at home -Control BP (6) Constipation due to opioid therapy: Code(s): K59.03 - Drug induced constipation; T40.2X5A - Adverse effect of other opioids, initial encounter Status: Chronic Assessment and Plan: Restarted on home meds, continue meds at home -BM yesterday (7) Hyponatremia: Code(s): E87.1 - Hypo-osmolality and hyponatremia Status: Chronic Assessment and Plan: Continue home meds of Na chloride tabs daily, encourage intake -Pt labs at her baseline and her appetite is better. -Continue with home Na chloride tabs daily, to f/u with cards this week as well as post hospitalization PCP appt (8) Hypomagnesemia: Code(s): E83.42 - Hypomagnesemia Status: Acute Assessment and Plan: Continue home meds inpt and upon D/C -Labs have been stable since admission (9) Heart failure with preserved ejection fraction: Qualifiers: Heart failure chronicity: chronic Qualified Code(s): I50.32 - Chronic diastolic (congestive) heart failure Code(s): I50.30 - Unspecified diastolic (congestive) heart failure Status: Acute Assessment and Plan: -Pt denies any CP/SOB/Edema Restart Amiloride and continue at home (10) Hearing loss: Code(s): H91.90 - Unspecified hearing loss, unspecified ear Status: Acute (11) Type 2 diabetes mellitus: Qualifiers: Diabetes mellitus complication status: without complication Diabetes mellitus fpc insulin use: without fpc use Qualified Code(s): E11.9 - Type 2 diabetes mellitus without complications Code(s): E11.9 - Type 2 diabetes mellitus without complications Status: Chronic Assessment and Plan: BS levels have been stable throughout inpt stay, to f/u with PCP upon D/C Plan D/C today with plans for home health PT vestibular therapy, ENT referral for f/u, and meclizine rx. DS: Summary Hospital Course Reason for hospitalization: Vertigo Hospital Course: Per ED provider: Patient with history of paroxysmal AFib, supposed to have endarterectomy but case canceled due to uncontrolled blood pressure, presents here due to persistent vertigo that started about 2 days ago, initially with mostly intermittent but now much more frequent, much worse with position, not too bad when she is lying at rest. Also feels like her heart has been racing. Patient presenting with vertigo, ongoing for last 2 days, she does also have a history of bilateral carotid stenosis. Since her symptoms are entirely positional, I have lower concern for this being a CTA, and regardless she is out of any window for intervention. She is given a dose of meclizine and on re-evaluation, she states she actually feels much better. She was able to sit up and was able to use the bedside commode with assistance from nursing, though this did bring back some of her vertigo so she is given additional dose of meclizine. CTA head/neck does not show any acute stroke, does show the known stenosis On repeat evaluation, her dizziness has essentially resolved, she is laying on her right side and in no distress. I did discuss going home at this time, however patient is concerned about going home and would like to be admitted for 1 night, which seems reasonable given her age and symptoms. 02/26: Pt resting in bed when I went to visit her. Pt reports that she is currently having vertigo when she moves her head so she is trying to stay as still as possible. Reviewed pt's hx with her which includes: paroxysmal afib (Eliquis 2.5 BID), carotid stenosis (scheduled for endarterectomy in November 2024 but rescheduled for x6 months due to uncontrolled HTN), SBO (recent admit to [facility] x3 months ago and resolved with NG and bowel rest), hiatal hernia, RA, and osteoporosis of the spine. Pt states that over the last several days she has also been experiencing palpitations, but no CP/SOB. EKG in the ED was unremarkable, pt states that she has a ticket speculator and called him this past week and has an appt with him soon for a med rec and check in. Pt on telemetry and will remain on it until D/C to monitor. 02/27: Pt resting in bed and still c/o severe vertigo. Pt reports today that she is very afraid to go home due to her continued vertigo, states that she cannot walk and cannot use the bathroom without the fear of falling because her dizziness is so bad. Pt reports that she lives alone at home. Plan for pt to work with PT/OT tomorrow for eval and hopeful D/C with vestibular rehab and canolith repositioning procedures. 02/28: Pt looking much better today, sitting up and eating breakfast. Pt still reports dizziness but is stable enough for D/C with home health vestibular therapy, ENT referral for f/u and meclizine rx. Resume all home meds. Pt also to f/u with her ticket speculator on 03/02 for f/u. To D/C after lunch to make sure she can continue to tolerate diet. Status at Discharge Cognitive/behavioral status at discharge: Stable Overall status at discharge: patient is progressing back to baseline Time Spent with Patient Time attestation: Total time spent providing and/or coordinating discharge services: Exam Narrative: Elderly Const: General: comfortable and uncomfortable (currently feeling dizzy when she moves her head) Other: +DIOMEDE HENMT: Face/Nose/Sinus: Normal nares present Mouth: Yes moist mucous membranes Other: No nystagmus Eyes: General: appearance normal, both eyes and all related structures Sclera: sclerae normal Pupils: Equal, round and reactive pupils present EOM: EOMs intact bilaterally Neck: Neck: supple and no JVD Resp: Effort & Inspection: normal respiratory effort Auscultation: clear to auscultation bilaterally Cardio: Rate: regular rate Rhythm: regular rhythm GI: Inspection: non-distended Auscultation: normal bowel sounds : General: Yes bladder normal to palpation Bimanual exam- vagina & uterus : bladder normal to palpation Skin: General skin exam: normal color and no rashes or lesions noted Wounds: no wounds Neuro: Cranial nerves: Yes Equal, round and reactive pupils present Speech: normal speech Motor exam (neuro): Normal motor muscle tone present throughout Sensory Exam: normal sensation Extrem: General: normal to inspection Psych: Mental Status: mental status grossly normal Affect: normal affect DS: Data Data Completed and Pending Labs on day of discharge: Labs from last 24 hours 02/28/25 02/27/25 02/27/25 05:24 21:46 16:57 WBC 9.8 RBC 3.58 L Hgb 11.3 L Hct 33.7 L MCV 94.1 MCH 31.6 MCHC 33.5 RDW 12.6 Plt Count 280 MPV 9.2 Immature Gran % (Auto) 0.7 H Neut % (Auto) 54.5 Lymph % (Auto) 35.3 [place] % (Auto) 7.6 Eos % (Auto) 1.2 Baso % (Auto) 0.7 Lymph # (Auto) 3.46 H [place] # (Auto) 0.7 H Eos # (Auto) 0.1 Baso # (Auto) 0.1 Abs Immat Gran (auto) 0.07 H Absolute Neuts (auto) 5.3 Absolute Nucleated RBC 0.000 Nucleated RBC % 0.0 Sodium 126 L Potassium 4.0 Chloride 98 Carbon Dioxide 21 L Anion Gap 7 BUN 18 H Creatinine 0.90 Estim Creat Clear Calc Not Reportable Estimated GFR 60 Glucose 115 H POC Capillary Glucose 122 H 120 H Calcium 8.7 Magnesium 1.7 Total Bilirubin 0.9 AST 25 ALT 18 Alkaline Phosphatase 82 Total Protein 5.7 L Albumin 3.3 L 02/27/25 11:51 WBC RBC Hgb Hct MCV MCH MCHC RDW Plt Count MPV Immature Gran % (Auto) Neut % (Auto) Lymph % (Auto) [place] % (Auto) Eos % (Auto) Baso % (Auto) Lymph # (Auto) [place] # (Auto) Eos # (Auto) Baso # (Auto) Abs Immat Gran (auto) Absolute Neuts (auto) Absolute Nucleated RBC Nucleated RBC % Sodium Potassium Chloride Carbon Dioxide Anion Gap BUN Creatinine Estim Creat Clear Calc Estimated GFR Glucose POC Capillary Glucose 213 H Calcium Magnesium Total Bilirubin AST ALT Alkaline Phosphatase Total Protein Albumin Discharge Plan Discharge Attending physician on discharge: Chanel Bellamy Consulting providers: Chanel Bellamy Discharging Clinician: Chanel Bellamy Anticipated Discharge Date/Time: 02/28/25 13:00 Patient Disposition: Home with Home Health Service Activity: may shower and as tolerated Diet: heart healthy Discharge Instructions: 1. I am writing you for a prescription for Meclizine to help with your dizziness at home, this is the medication that you have been taking in the hospital that has been helping with your dizziness. 2. ENT wants you to come for a follow-up this week if your dizziness does not get better, their contact information is listed below. You will need to call them to schedule an appt. 3. I am also sending you home with a referral for physical therapy specific to vertigo, this should help as well. This is a home health service so they will come to your house to help you, they will call you to let you know when their availability is to come to your house. Continue to check your blood pressure and blood sugar at home if applicable. Keep your scheduled appts with your primary care provider and any specialist that you may see. Return to the emergency department if you develop sudden shortness of breath, chest pain, a fever of greater than 101.5, or nausea, vomiting, abd pain, or diarrhea that does not go away. Follow-up with your primary care provider within 1-2 weeks, they will want to be updated on your inpatient stay in the hospital. Thank you for choosing [facility] for your healthcare needs. Patient Instructions: Meclizine (By mouth), Heart Failure (GEN), Benign Paroxysmal Positional Vertigo (GEN), Blood Thinners (GEN) Patient Language: Tamazight Stand Alone Forms: General Discharge Information Follow-up/Referrals: Neli Moura DO [Primary Care Provider] - 2 Weeks Efren Nuno MD [Physician] - 2 Weeks Discharge Medications: New meclizine 25 mg Tablet 25 mg PO BID PRN (Reason: Vertigo) Qty: 60 1RF Continued Culturelle Probiotic-Multivit 1 billion cell- 1 gram tablet,chewable 1 tablet PO DAILY docusate sodium [Dulcolax Stool Softener (dss)] 100 mg capsule 100 mg PO DAILY atorvastatin 40 mg tablet 40 mg PO QHS Qty: 90 3RF magnesium oxide 400 mg (241.3 mg magnesium) tablet 400 mg PO QAM Qty: 90 1RF folic acid 1 mg Tablet 3 mg PO DAILY ezetimibe 10 mg Tablet 10 mg PO QHS cetirizine 10 mg Capsule 10 mg PO DAILY albuterol sulfate 90 mcg/actuation HFA aerosol inhaler 2 puff inhalation QID PRN (Reason: Shortness Of Breath Or Wheezing) oxycodone-acetaminophen 10-325 mg tablet 1 tablet PO Q6H PRN (Reason: Pain (Scale Score 4-6)) Qty: 1 0RF pantoprazole 40 mg Tablet,Delayed Release (Dr/Ec) 40 mg PO DAILY Qty: 30 0RF amiloride 5 mg tablet 5 mg PO QAM fluticasone propionate [Flonase Allergy Relief] 50 mcg/actuation spray,suspension 1 spray intranasal BID PRN (Reason: allergy symptoms) Rx Instructions: administer into each nostril buspirone 10 mg tablet 10 mg PO QAM AND QHS Rx Instructions: 10 mg orally; ferrous sulfate 325 mg (65 mg iron) Tablet,Delayed Release (Dr/Ec) 325 mg PO QHS ondansetron 4 mg tablet,disintegrating 4 mg PO Q6H PRN (Reason: nausea and vomiting) simethicone 80 mg Tablet,Chewable 160 mg PO QID PRN (Reason: gas) sodium chloride 1,000 mg tablet,soluble 1,000 mg PO TID Eliquis 2.5 mg Tablet 2.5 mg PO Q12HR Qty: 60 1RF polyethylene glycol 3350 [Miralax] 17 gram Powder In Packet 17 g PO QAM PRN (Reason: Constipation) Qty: 30 0RF acetaminophen 500 mg capsule 1,000 mg PO Q6H PRN (Reason: pain) Qty: 30 0RF guanfacine 1 mg tablet 1 mg PO HS hydralazine 25 mg tablet 50 mg PO TID aspirin [Adult Low Dose Aspirin] 81 mg tablet,delayed release (DR/EC) 81 mg PO DAILY cyanocobalamin (vitamin B-12) [Vitamin B-12] 1,000 mcg tablet 1,000 mcg PO QAM Qty: 90 1RF levothyroxine 88 mcg tablet See Rx Instructions .ROUTE .COMPLEX Qty: 90 1RF Dose Instruction: 88 MCG ORALLY EVERY MORNING Rx Instructions: 88 MCG ORALLY EVERY MORNING nitroglycerin 0.4 mg tablet, sublingual See Rx Instructions .ROUTE .COMPLEX Qty: 25 0RF Dose Instruction: 0.4 MG SUBLINGUALLY EVERY 5 MINUTES NEEDED FOR CHEST PAIN MAX 3 DOSES Rx Instructions: 0.4 MG SUBLINGUALLY EVERY 5 MINUTES NEEDED FOR CHEST PAIN MAX 3 DOSES losartan 100 mg tablet 100 mg PO DAILY Qty: 90 1RF montelukast 10 mg tablet See Rx Instructions .ROUTE .COMPLEX Qty: 90 1RF Dose Instruction: 10 MG ORALLY DAILY Rx Instructions: 10 MG ORALLY DAILY Linzess 290 mcg capsule 290 mcg PO QAM Qty: 90 3RF Date of admission: 02/27/25 15:57 Primary Care Provider: Neli Moura Admitting Provider: Wily Navarro Attending physician on admission: Wily Navarro Condition: Stable Quality VTE Prophylaxis VTE prophylaxis: pharmacologic ordered (home eliquis ordered) Hospitalist MIPS Heart Failure (Exclusion) Patient has history of Heart Transplant or Left Ventricular Assistive Device?: No IF YES, STOP HERE Heart Failure (Qualifier) Patient has current or prior documentation of LVEF less than or equal to 40%, or mod/servere depressed LVSF?: No IF NO, STOP HERE
[2025-02-28] MEDS: APIXABAN 2.5 MG TABLET PO (08:41)
[2025-02-28] MEDS: hydrALAZINE HCL 25 MG TABLET 50 MG PO ×2 (08:41→12:45)
[2025-02-28] MEDS: MONTELUKAST SODIUM 10 MG TABLET BY MOUTH (08:41)
[2025-02-28] MEDS: LINACLOTIDE 145 MCG CAPSULE 290 MCG PO (08:41)
[2025-02-28] MEDS: SODIUM CHLORIDE 1 GM TABLET PO ×2 (08:41→12:45)
[2025-02-28] MEDS: MAGNESIUM OXIDE 400 MG TABLET PO (08:42)
[2025-02-28] MEDS: LORATADINE 10 MG TABLET PO (08:42)
[2025-02-28] MEDS: FOLIC ACID 1 MG TABLET 3 MG PO (08:42)
[2025-02-28] MEDS: aMILoride HCL 5 MG TABLET PO (08:42)
[2025-02-28] MEDS: PANTOPRAZOLE 40 MG TABLET PO (08:42)
[2025-02-28] MEDS: DOCUSATE SODIUM 100 MG CAPSULE 200 MG PO (08:42)
[2025-02-28] MEDS: busPIRone HCL 10 MG TABLET PO (08:42)
[2025-02-28] MEDS: LOSARTAN POTASSIUM 100 MG TABLET PO (08:42)
[2025-02-28] MEDS: ASPIRIN 81 MG ENTERIC TABLET PO (08:42)
[2025-02-28] MEDS: CYANOCOBALAMIN 1,000 MCG TABLET 1000 MCG PO (08:42)
[2025-02-28] MEDS: THERAPEUTIC MULTIVITAMINS/MINERALS TAB (*BKC) 1 TABLET PO (08:42)
[2025-02-28 08:43] LABS: Glucose Point of Care 117 mg/dl (65-105)
[2025-02-28 11:55] LABS: Glucose Point of Care 114 mg/dl (65-105)
--- NOTE | 2025-02-28 14:44 | PC.NURSE ---
Pt ambulated in hallway with nursing staff. pt used wheeled walker. Gait steady with SBA. Tolerated very well with out issue.
== END 2025-02-28 15:05 | disposition home health service (06) | DRG 149 ==
LOC: ANHED 19:28 → ANH3MEDSUR 02-26 01:54 → ANH3MED 02-26 01:57
PROVIDERS: Admitting Provider General Practice; Emergency Provider Emergency Medicine; PCP Family Medicine
DX: R42 Dizziness and giddiness (principal); E87.1 Hypo-osmolality and hyponatremia; I50.32 Chronic diastolic (congestive) heart failure; I11.0 Hypertensive heart disease with heart failure; I65.23 Occlusion and stenosis of bilateral carotid arteries; I48.0 Paroxysmal atrial fibrillation; K59.03 Drug induced constipation; T40.2X5A Adverse effect of other opioids, initial encounter; R00.2 Palpitations; K21.9 Gastro-esophageal reflux disease without esophagitis; I25.10 Atherosclerotic heart disease of native coronary artery without angina pectoris; G89.4 Chronic pain syndrome; G47.33 Obstructive sleep apnea (adult) (pediatric); M06.9 Rheumatoid arthritis, unspecified; M15.9 Polyosteoarthritis, unspecified; K44.9 Diaphragmatic hernia without obstruction or gangrene; E78.5 Hyperlipidemia, unspecified; E11.42 Type 2 diabetes mellitus with diabetic polyneuropathy; Z86.718 Personal history of other venous thrombosis and embolism; Z79.01 Long term (current) use of anticoagulants; Z95.5 Presence of coronary angioplasty implant and graft; Z90.49 Acquired absence of other specified parts of digestive tract; Z90.710 Acquired absence of both cervix and uterus
CPT/HCPCS: 36415; 70496; 70498; 70553; 72125; 80053; 81001; 82948; 83735; 85025; 93005; 96374; 97165; 99285; A9270; A9577; G0378; J1171; J1815; Q9967

== ENCOUNTER 2025-03-06 11:37 | Inpatient (IN) | payer MEDICARE, BC, SELFPAY ==
[2025-03-06] VITALS (30 sets, daily range): BP systolic 133–193; BP diastolic 46–79; PULSE 69–109; RESP 13–24; TEMP 36.7–37; O2SAT 96–100; BMI 25.3
--- NOTE | ~2025-03-06 | XR_ITS ---
EXAMINATION: XR abdomen gastric tube rechec DATE: 03/08/2025 15:12 INDICATION: Nasogastric tube repositioning TECHNIQUE: A supine view of the abdomen and lower chest was obtained for evaluation of feeding tube placement. COMPARISON: 03/08/2025 FINDINGS: Nasogastric tube is been withdrawn slightly with distal tip projecting over the region of the gastric antrum and proximal side port below the gastroesophageal junction the body the stomach. Nonspecific bowel gas pattern with no definitively dilated gas-filled loops of bowel. Closest technique Limited r ight upper quadrant. Lungs are clear with no focal airspace opacities, pulmonary edema, pleural effus ion or pneumothorax. Heart size is normal. Electronic device likely external to the patient projectin g over the central chest. Suture anchors likely for rotator cuff repair at the right humeral head. IMPRESSION: 1. Nasogastric tube in expected position with distal tip at the gastric antrum. Reviewed, dictated and finalized at location A.
--- NOTE | ~2025-03-06 | XR_ITS ---
EXAMINATION: XR abdomen gastric tube insert DATE: 03/08/2025 10:50 INDICATION: Nasogastric tube placement. TECHNIQUE: A supine view of the abdomen and lower chest was obtained for evaluation of feeding tube placement. COMPARISON: 03/06/2025 FINDINGS: Nasogastric tube tip projecting approximately 8 cm above level of the diaphragm at the thoracic hiatu s likely near the the expected location of the level of the gastroesophageal junction with moderate-s ized sliding-type hiatal hernia seen on prior CT. Cholecystectomy clips in right upper quadrant. Lung s are clear with no focal airspace opacities, pulmonary edema, pleural effusion or pneumothorax. Hear t size is normal. Electronic device likely external to the patient projects over the central chest. S uture anchors at the right humeral head consistent with prior rotator cuff repair. IMPRESSION: 1. Nasogastric tube tip projecting over the lower chest in the expected location of the gastroesophag eal junction at the cephalad margin of a moderate-sized hiatal hernia. Reviewed, dictated and finalized at location A. IMPRESSION: 1. Nasogastric tube tip projecting over the lower chest in the expected locatio n of the gastroesophageal junction at the cephalad margin of a moderate-sized h iatal hernia.
--- NOTE | ~2025-03-06 | CT_ITS ---
CT abdomen pelvis w con Ordering provider: Benjamin Hutchison History: 80 years Female with . Abdominal pain, n/v/d . Comparison: November 28, 2024 Technique: CT abdomen and pelvis with IV and without oral contrast. Automated exposure control and it erative reconstruction technique were employed. The dose-length product was 342.88 mGy-cm. 100 mL Omn ipaque 350 was given IV. Findings: VISUALIZED LOWER CHEST: Normal. UPPER ABDOMINAL ORGANS: Liver: Slightly dilated intrahepatic ducts with no change. Hypodensities in the liver unchanged. Slig htly prominent CBD. Gallbladder: Status post cholecystectomy. Spleen: Hypodensity unchanged from previous examination. Stomach/duodenum: Sliding hiatus hernia. Pancreas: Atrophic. Adrenals: Normal. Kidneys: Minimal fullness of the right renal pelvis unchanged. Tiny cyst is seen in the left kidney l ower pole and right kidney mid pole unchanged. PELVIC ORGANS: The bladder is normal. BOWEL AND MESENTERY: Colon: No evidence of diverticulitis. The appendix is not demonstrated. No definite inflammatory moreno ges seen in the right lower quadrant area.. Small Bowel: Dilated small bowel is noted in the mid and lower abdomen. The area of transition is mos t likely in the left mid abdomen. No evidence of perforation. Peritoneum/mesentery: No free air or free fluid. No mesenteric lymphadenopathy. Lymph node is seen in the mesentery measuring 1.9 cm. RETROPERITONEUM: Moderate atheromatous disease of the abdominal aorta. No retroperitoneal lymphade nopathy. MUSCULOSKELETAL: Superficial soft tissues: The superficial soft tissues are normal. Bones: Age appropriate degenerative changes of the spine. Anterolisthesis at the level of L4-L5 and L 5-S1. Bilateral sacroiliacs. Bilateral hip osteoarthritic changes. IMPRESSION: 1. Dilated small bowel loops suggestive of partial versus complete obstruction. 2. Other appearances are unchanged from previous examination. Reviewed, dictated and finalized at location A. IMPRESSION: 1. Dilated small bowel loops suggestive of partial versus complete obstruction . 2. Other appearances are unchanged from previous examination.
--- NOTE | ~2025-03-06 | XR_ITS ---
XR chest port-a-cath/central Ordering provider: Rosendo Brunner MD History: 80 years Female with . line placement . Comparison: October 07, 2024 FINDINGS: MEDIASTINUM: The cardiac silhouette is slightly enlarged. Nasogastric tube is seen extending to the s tomach. A right central line is seen with the tip overlying superior vena cava. LUNGS: No infiltrates, effusions or pneumothorax. OTHER: Air is highly suggestive under the right hemidiaphragm. Summation shadow in the area is marked excluded. A repeat exam for confirmation is advised. IMPRESSION: Highly suggestive air under the right hemidiaphragm. Clinical correlation and repeat exam is advised. No acute cardiopulmonary pathology. Supporting lines as described above. Nurse Crespo was notified with the result of the patient at 4:45 PM on March 09, 2025 Reviewed, dictated and finalized at location A. IMPRESSION: Highly suggestive air under the right hemidiaphragm. Clinical correlation and r epeat exam is advised. No acute cardiopulmonary pathology. Supporting lines as described above. Nurse Crespo was notified with the result of the patient at 4:45 PM on March 09, 2025
--- NOTE | ~2025-03-06 | XR_ITS ---
Exam: Abdomen 1V HISTORY: Confirm NGT placement in stomach COMPARISON: Reference is made to CT examination of the abdomen and pelvis dated 03/06/2025 as well as small bowel follow-through on 03/07/2025. TECHNIQUE: Supine images of the lower chest and upper abdomen FINDINGS: Nasogastric tube extends into the left upper quadrant, presumably within the stomach. IMPRESSION: Nasogastric tube presumably in good position and ready for immediate use. Reviewed, dictated and finalized at location A.
--- NOTE | ~2025-03-06 | XR_ITS ---
XR abdomen gastric tube insert Ordering provider: Benjamin Hutchison MD History: . NG tube placement . Comparison: None. FINDINGS/impression: Nasogastric tube is seen with the tip in the area of the stomach. The sidehole is at the gastroesopha geal junction. Reviewed, dictated and finalized at location A.
--- NOTE | ~2025-03-06 | XR_ITS ---
EXAMINATION: XR sm bowel follow through WS DATE: 03/07/2025 16:53 INDICATION: Small bowel obstruction TECHNIQUE: Slate Cutter Operator radiograph(s) of the abdomen was/were obtained. Oral contrast was administered, and sequential radiographs of the abdomen and pelvis were obtained over 5 hours. COMPARISON: CT dated 03/06/2025 FINDINGS: Slate Cutter Operator image demonstrates a nasogastric tube with distal tip in proximal side port in the body the sto mach. Cholecystectomy clips in the right upper quadrant. A few dilated loops of gas-filled small jorge l in the central abdomen. There is excreted contrast in the bladder from the earlier contrast-enhance d CT. Subsequent images demonstrate slow progression of contrast through the dilated small bowel. No evident contrast within the colon only 5 hours of observation. Instantly noted is a small to moderate -sized sliding-type hiatal hernia with gastroesophageal reflux. Lung bases are clear. Heart size is n ormal. IMPRESSION: 1. Slow progression of contrast through several loops of dilated small bowel in the central abdomen w ith no contrast in colon by 5 hours consistent with a small bowel obstruction. 2. Small to moderate-sized sliding-type hiatal hernia with gastroesophageal reflux. Reviewed, dictated and finalized at location A. IMPRESSION: 1. Slow progression of contrast through several loops of dilated small bowel in the central abdomen with no contrast in colon by 5 hours consistent with a sma ll bowel obstruction. 2. Small to moderate-sized sliding-type hiatal hernia with gastroesophageal ref lux.
--- NOTE | ~2025-03-06 | XR_ITS ---
XR abdomen gastric tube rechec Ordering provider: Quirino Harley PA-C History: . NG tube advancement . Comparison: None. FINDINGS/impression: Nasogastric tube projected over the upper abdominal area with the tip may be in the duodenum. Confirm ation of the position by contrast injection is advised. Reviewed, dictated and finalized at location A.
--- NOTE | 2025-03-06 12:20 | ECG_ITS ---
Test Date: 2025-03-06 11:43:59 Measurements Intervals Mcleod Rate: 74 P: 67 MS: 165 QRS: -30 QRSD: 85 T: 41 QT: 401 QTc: 446 Interpretive Statements SINUS RHYTHM LEFT VENTRICULAR HYPERTROPHY CANNOT R/O SEPTAL INFARCT, AGE INDETERMINATE MINIMAL Q WAVES- HIGH LATERAL LEADS BASELINE ARTIFACT- I, II, III, AVR, AVL, AVF, V4 ABNORMAL ECG Compared to ECG 02/25/2025 19:47:10 NO SIGNIFICANT CHANGE Electronically Signed On 03-06-2025 12:36:24 CDT by Jasvir Steele D.O.
--- NOTE | 2025-03-06 12:21 | ED.GENADULT ---
HPI - General Adult General Chief complaint: Back Pain/Injury Stated complaint: Nausea vomiting Time Seen by Provider: 03/06/25 12:01 History of Present Illness HPI narrative: This is an 80-year-old female presenting with chief complaint nausea vomiting diarrhea. Yesterday she had a normal bowel movement around noon and then had multiple episodes of diarrhea. This morning she developed nausea and vomiting and has been on with keep down water. She attributes this to the Fazioli's she had yesterday. She does not have any abdominal pain. No fevers chills chest pain or difficulty breathing or urinary symptoms. She does have her chronic mid-lower back pain which is unchanged. Patient takes oxycodone 10 mg 3 times a day is not taking her pain medication today. She is requesting pain meds now. Patient is also complaining of left ear pain but is seen in ENT on Friday. Related Data Home Medications ?Medication ?Instructions ?Recorded ?Confirmed ?Last Taken ?Type aspirin 81 mg tablet,delayed 81 mg PO DAILY 07/29/19 02/26/25 02/25/25 History release (Adult Low Dose Aspirin) cetirizine 10 mg capsule 10 mg PO DAILY 03/15/23 02/26/25 02/25/25 History ezetimibe 10 mg tablet 10 mg PO QHS 03/15/23 02/26/25 02/25/25 History folic acid 1 mg tablet 3 mg PO DAILY 03/15/23 02/26/25 02/25/25 History albuterol sulfate 90 mcg/actuation 2 puff inhalation QID PRN 06/22/23 02/26/25 Unknown History aerosol inhaler Shortness Of Breath Or Wheezing docusate sodium 100 mg capsule 100 mg PO DAILY 02/04/24 02/26/25 Unknown History (Dulcolax Stool Softener (docusate)) [id number]. coag-B. 1 tablet PO DAILY 02/04/24 02/26/25 02/25/25 History subtilis-inulin 1 billion cell-1 gram chew tab (Culturelle Probiotic-Multivit) guanfacine 1 mg tablet 1 mg PO HS 10/07/24 02/26/25 02/25/25 History hydralazine 25 mg tablet 50 mg PO TID 10/07/24 02/26/25 02/25/25 History amiloride 5 mg tablet 5 mg PO QAM 02/26/25 02/26/25 02/25/25 History buspirone 10 mg tablet 10 mg PO QAM AND QHS 02/26/25 02/26/25 02/26/25 History ferrous sulfate 325 mg (65 mg 325 mg PO QHS 02/26/25 02/26/25 02/25/25 History iron) tablet,delayed release fluticasone propionate 50 1 spray intranasal BID PRN allergy 02/26/25 02/26/25 Unknown History mcg/actuation nasal symptoms spray,suspension (Flonase Allergy Relief) ondansetron 4 mg disintegrating 4 mg PO Q6H PRN nausea and vomiting 02/26/25 02/26/25 Unknown History tablet simethicone 80 mg chewable tablet 160 mg PO QID PRN gas 02/26/25 02/26/25 Unknown History sodium chloride 1,000 mg soluble 1,000 mg PO TID 02/26/25 02/26/25 02/25/25 History tablet Allergies Allergy/AdvReac Type Severity Reaction Status Date / Time No Known Allergies Allergy Verified 03/06/25 11:53 [facility] Past Medical History Medical History (Updated 03/06/25 @ 15:33 by Cherie Garcia APRN) Hypertension Palpitations Carotid artery stenosis More than 50 percent stenosis of right internal carotid artery Renal artery stenosis Folic acid deficiency Type 2 diabetes mellitus Vitamin D deficiency Chronic anticoagulation Paroxysmal atrial fibrillation Pneumonia Vitamin B 12 deficiency Heart failure with preserved ejection fraction Hypothyroidism Peptic ulcer Deep venous thrombosis Gastroesophageal reflux disease Chronic hyponatremia Chronic, continuous use of opioids Chronic pain syndrome Obstructive sleep apnea Noncompliant with CPAP. Irritable bowel syndrome Coronary artery disease Angioplasty of a diagonal lesion in 01/2018. Cardiac catheterization 06/2019 showed patent coronary arteries. Anxiety Depression Degenerative joint disease involving multiple joints Rheumatoid arthritis Hiatal hernia Asthma Hyperlipidemia Peripheral neuropathy Seasonal allergies Surgical History Surgical History H/O heart artery stent x2 History of exploratory laparotomy Exploratory laparotomy with segmental mid jejunal small bowel resection with [id number] stapled anti peristaltic jejunal anastomosis 10/19/23 History of cataract extraction History of carpal tunnel release History of arthroscopy of both shoulders History of phacoemulsification of cataract with intraocular lens implantation History of cholecystectomy History of appendectomy History of foot surgery History of cardiac catheterization Angioplasty of a diagonal stenosis 01/2018. Cardiac catheterization 06/2019 showed patent coronary arteries. History of hysterectomy Family History Family History Grandparent Diabetes mellitus Father Diabetes mellitus Acute myocardial infarction Hypertension Family history of cardiovascular disease Mother Diabetes mellitus Hypertension Sibling Diabetes mellitus Hypertension Social History Social History Social History: The patient lives in [place]. Her 2023. 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 Lifelong nonsmoker. No alcohol or illicit substance abuse. Per patient, POA is Wild Dee, friend. Code status: Full code Caffeine-soda Smoking status: Never smoker Second hand tobacco smoke exposure: No Alcohol intake: never Substance use: never Substance use type: does not use Other substance usage details: medical marijauna Do You Feel Safe in your Home?: Yes Lack of Transportation: No Lack of Food: Never True Current Housing: I Have Housing Concerned About Future Housing: No Difficulty Paying Gas/Electric Bills: No Difficulty Paying for Meds: No Currently Unemployed: No Education: Associate Degree Difficulty w/ Childcare or Family Care: No Spiritual care concerns: No Agree to blood products: Yes Exam Narrative: APPEARANCE: No apparent distress. Head: atraumatic. EYES: EOMI, NOSE: Atraumatic NECK: Trachea midline RESPIRATORY: No increased rate of breathing clear to auscultation CARDIOVASCULAR: RRR, no peripheral edema ABDOMINAL: Non-distended soft nontender MUSCULOSKELETAl: No obvious deformities NEURO: Alert. Moving 4/4 extremities SKIN:: Warm, dry. Normal color PSYCHIATRIC: Normal affect Course Vital Signs Vital signs: Vital Signs Temperature 98.0 F 03/06/25 11:44 Pulse Rate 83 03/06/25 11:44 Respiratory Rate 20 03/06/25 11:44 Blood Pressure 185/68 H 03/06/25 11:44 Pulse Oximetry 99 03/06/25 11:44 Oxygen Delivery Room Air 03/06/25 11:44 Temperature 98.0 F 03/06/25 11:44 Pulse Rate 74 03/06/25 13:05 Respiratory Rate 16 03/06/25 13:05 Blood Pressure 153/57 H 03/06/25 13:05 Pulse Oximetry 99 03/06/25 13:05 Oxygen Delivery Room Air 03/06/25 11:44 Medical Decision Making [facility] Narrative Medical decision making narrative: -Course: 80-year-old female presenting nausea, vomiting, abdominal pain. CT abdomen pelvis showed possible small bowel versus partial obstruction with a transition point in the mid left abdomen. Bladder was distended and patient had a postvoid residual 500. Patient was straight cathed. White count elevated at 18. Patient given IV antibiotics and fluids. NG tube was placed to low intermittent suction. Patient will be admitted to the hospital for further management. General surgery consulted -DDX includes but is not limited to: Gastroenteritis, small-bowel obstruction, partial bowel obstruction, colitis Vital Signs Vital Signs: Vital Signs Temperature 98.0 F 03/06/25 11:44 Pulse Rate 83 03/06/25 11:44 Respiratory Rate 20 03/06/25 11:44 Blood Pressure 185/68 H 03/06/25 11:44 Pulse Oximetry 99 03/06/25 11:44 Oxygen Delivery Room Air 03/06/25 11:44 Temperature 98.0 F 03/06/25 11:44 Pulse Rate 74 03/06/25 13:05 Respiratory Rate 16 03/06/25 13:05 Blood Pressure 153/57 H 03/06/25 13:05 Pulse Oximetry 99 03/06/25 13:05 Oxygen Delivery Room Air 03/06/25 11:44 Lab Data 03/06/25 13:01 03/06/25 13:01 Labs: Lab Results 03/06/25 03/06/25 Range/Units 13:01 15:33 WBC 18.4 H (4.5-10.0) K/mm3 RBC 4.30 (4.2-5.4) M/mm3 Hgb 13.7 (12.0-15.0) g/dL Hct 40.0 (37.0-47.0) % MCV 93.0 (80-100) fl MCH 31.9 (26-34) pg MCHC 34.3 (32-36) g/dl RDW 12.6 (11.5-14.5) % Plt Count 310 (150-375) k/mm3 MPV 9.2 (7.4-10.4) fl Immature Gran % (Auto) 0.7 H (0-0.5) % Neut % (Auto) 82.9 H (45.5-73.1) % Lymph % (Auto) 10.5 L (18.3-44.2) % Starke % (Auto) 5.7 (2.6-8.5) % Eos % (Auto) 0.0 (0-4.4) % Baso % (Auto) 0.2 (0.2-1.2) % Lymph # (Auto) 1.94 (0.9-3.2) K/mm3 Starke # (Auto) 1.1 H (0.1-0.6) K/mm3 Eos # (Auto) 0.0 (0-0.3) K/mm3 Baso # (Auto) 0.0 (0.0-0.1) K/mm3 Abs Immat Gran (auto) 0.13 H (0.00-0.031) K/mm3 Absolute Neuts (auto) 15.3 H (1.3-6.7) K/mm3 Absolute Nucleated RBC 0.000 (0.0-0.012) K/mm3 Nucleated RBC % 0.0 (0.0-0.2) % Sodium 127 L (137-145) mmol/L Potassium 4.5 (3.4-5.0) mmol/L Chloride 90 L (98-107) mmol/L Carbon Dioxide 24 (22-30) mmol/L Anion Gap 13 H (4-12) mmol/L BUN 9 D (7-17) mg/dL Creatinine 0.61 L (0.7-1.0) mg/dL Estim Creat Clear Calc Not Reportable Estimated GFR > 60 (59 - ) Glucose 166 H (65-110) mg/dL Lactic Acid 2.5 H 2.8 H (0.7-2.0) mmol/L Calcium 9.7 (8.4-10.2) mg/dL Total Bilirubin 1.4 H (0.2-1.3) mg/dL AST 35 (14-36) U/L ALT 28 (6-35) U/L Alkaline Phosphatase 103 (38-126) U/L Total Protein 7.7 (6.3-8.2) g/dL Albumin 4.6 (3.5-5.1) g/dL Lipase 25 (23-300) U/L Procalcitonin < 0.0 ng/mL Urine Color Yellow (Yellow) Urine Appearance Clear (Clear) Urine pH 7.0 (5.0-9.0) Ur Specific [place] 1.014 (1.001-1.035) Urine Protein Negative (Negative) mg/dL Urine Glucose (UA) Negative (Negative) mg/dL Urine Ketones Negative (Negative) mg/dL Ur Blood (Man) Negative (Negative) Urine Nitrate Negative (Negative) Urine Bilirubin Negative (Negative) Urine Urobilinogen 0.2 (<2.0) mg/dL Leukocyte Esterase Rfl Negative (Negative) TEE/UL Discharge Plan Discharge Clinical Impression: SBO (small bowel obstruction), Leukocytosis Patient Disposition: Home Condition: Stable Instructions: Antibiotic Form Patient Language: Japanese Prescriptions: No Action Culturelle Probiotic-Multivit 1 billion cell- 1 gram tablet,chewable 1 tablet PO DAILY docusate sodium [Dulcolax Stool Softener (dss)] 100 mg capsule 100 mg PO DAILY atorvastatin 40 mg tablet 40 mg PO QHS Qty: 90 3RF magnesium oxide 400 mg (241.3 mg magnesium) tablet 400 mg PO QAM Qty: 90 1RF folic acid 1 mg Tablet 3 mg PO DAILY ezetimibe 10 mg Tablet 10 mg PO QHS cetirizine 10 mg Capsule 10 mg PO DAILY albuterol sulfate 90 mcg/actuation HFA aerosol inhaler 2 puff inhalation QID PRN (Reason: Shortness Of Breath Or Wheezing) oxycodone-acetaminophen 10-325 mg tablet 1 tablet PO Q6H PRN (Reason: Pain (Scale Score 4-6)) Qty: 1 0RF pantoprazole 40 mg Tablet,Delayed Release (Dr/Ec) 40 mg PO DAILY Qty: 30 0RF amiloride 5 mg tablet 5 mg PO QAM fluticasone propionate [Flonase Allergy Relief] 50 mcg/actuation spray,suspension 1 spray intranasal BID PRN (Reason: allergy symptoms) Rx Instructions: administer into each nostril buspirone 10 mg tablet 10 mg PO QAM AND QHS Rx Instructions: 10 mg orally; ferrous sulfate 325 mg (65 mg iron) Tablet,Delayed Release (Dr/Ec) 325 mg PO QHS ondansetron 4 mg tablet,disintegrating 4 mg PO Q6H PRN (Reason: nausea and vomiting) simethicone 80 mg Tablet,Chewable 160 mg PO QID PRN (Reason: gas) sodium chloride 1,000 mg tablet,soluble 1,000 mg PO TID meclizine 25 mg Tablet 25 mg PO BID PRN (Reason: Vertigo) Qty: 60 1RF Eliquis 2.5 mg Tablet 2.5 mg PO Q12HR Qty: 60 1RF polyethylene glycol 3350 [Miralax] 17 gram Powder In Packet 17 g PO QAM PRN (Reason: Constipation) Qty: 30 0RF acetaminophen 500 mg capsule 1,000 mg PO Q6H PRN (Reason: pain) Qty: 30 0RF guanfacine 1 mg tablet 1 mg PO HS hydralazine 25 mg tablet 50 mg PO TID aspirin [Adult Low Dose Aspirin] 81 mg tablet,delayed release (DR/EC) 81 mg PO DAILY cyanocobalamin (vitamin B-12) [Vitamin B-12] 1,000 mcg tablet 1,000 mcg PO QAM Qty: 90 1RF levothyroxine 88 mcg tablet See Rx Instructions .ROUTE .COMPLEX Qty: 90 1RF Dose Instruction: 88 MCG ORALLY EVERY MORNING Rx Instructions: 88 MCG ORALLY EVERY MORNING nitroglycerin 0.4 mg tablet, sublingual See Rx Instructions .ROUTE .COMPLEX Qty: 25 0RF Dose Instruction: 0.4 MG SUBLINGUALLY EVERY 5 MINUTES NEEDED FOR CHEST PAIN MAX 3 DOSES Rx Instructions: 0.4 MG SUBLINGUALLY EVERY 5 MINUTES NEEDED FOR CHEST PAIN MAX 3 DOSES losartan 100 mg tablet 100 mg PO DAILY Qty: 90 1RF montelukast 10 mg tablet See Rx Instructions .ROUTE .COMPLEX Qty: 90 1RF Dose Instruction: 10 MG ORALLY DAILY Rx Instructions: 10 MG ORALLY DAILY Linzess 290 mcg capsule 290 mcg PO QAM Qty: 90 3RF Follow-up/Referrals: Neli Moura DO [Primary Care Provider] -
[2025-03-06] MEDS: HYDROmorphone HCL INJ (*CRX) 2 MG/ML VIAL 0.5 MG IV PUSH ×2 (13:00→18:02)
[2025-03-06] MEDS: ONDANSETRON INJ 4 MG/2 ML VIAL IV PUSH (13:00)
[2025-03-06] MEDS: SODIUM CHLORIDE 0.9% IV 1,000 ML 999 ML IV CONT ×2 (13:00→15:12)
[2025-03-06 13:08] LABS: Hematocrit 40.0 % (37.0-47.0); Hemoglobin 13.7 g/dL (12.0-15.0); Immature Granulocyte Percent A 0.7 % (0-0.5); Lymphocytes Absolute Auto 1.94 K/mm3 (0.9-3.2); Mean Corpuscular HGB Conc 34.3 g/dl (32-36); Mean Corpuscular Hemoglobin 31.9 pg (26-34); Mean Corpuscular Volume 93.0 fl (80-100); Nucleated Red Blood Cells Absolute Auto 0.000 K/mm3 (0.0-0.012); Nucleated Red Blood Cells Perc 0.0 % (0.0-0.2); Platelet Count Result 310 k/mm3 (150-375); Red Blood Count 4.30 M/mm3 (4.2-5.4); White Blood Count 18.4 K/mm3 (4.5-10.0)
[2025-03-06 13:29] LABS: Alanine Aminotransferase 28 U/L (6-35); Albumin Level 4.6 g/dL (3.5-5.1); Alkaline Phosphatase 103 U/L (38-126); Anion Gap 13 mmol/L (4-12); Aspartate Amino Transferase 35 U/L (14-36); Bilirubin,Total 1.4 mg/dL (0.2-1.3); Blood Urea Nitrogen 9 mg/dL (7-17); Calcium 9.7 mg/dL (8.4-10.2); Carbon Dioxide 24 mmol/L (22-30); Chloride 90 mmol/L (98-107); Estimated Glomerular Filt Rate > 60; Glucose 166 mg/dL (65-110); Lipase 25 U/L (23-300); Potassium 4.5 mmol/L (3.4-5.0); Sodium 127 mmol/L (137-145); Total Protein 7.7 g/dL (6.3-8.2)
[2025-03-06] MEDS: PIPERACILLN/TAZ 3.375GM/NS50ML 3.375 GM/50 ML BAG IVPB ×2 (15:13→21:11)
--- NOTE | 2025-03-06 15:20 | P.HP_ITS ---
H&P: HPI History of Present Illness Date/Time: 03/06/25 15:20 Chief Complaint: Nausea, Vomiting Narrative: 80 y/o F with PMH of chronic hyponatremia, CAD, DVT, anxiety/depression, HF with preserved EF, HLD, HTN, hypothyroidism, IBS, ELVIRA noncompliant with CPAP, paroxysmal AFib, rheumatoid arthritis, and diabetes presents here with nausea and vomiting. The patient presents here from home via EMS on 03/06 for further evaluation of back pain, nausea, vomiting, and diarrhea. She reports she had a normal bowel movement yesterday at 12:00 p.m. which was followed by multiple episodes of diarrhea. She has since developed nausea and vomiting and has only been able to tolerate her morning medications but was not able to tolerate water. Reports accompanying abdominal pain - described as lower abdominal pain, more so on left but has hx of hernia to same region. She reports accompanying back pain (bra down). She has a history of chronic back pain for which she takes oxycodone t.i.d. She denies accompanying fever, chills, chest pain, shortness a breath, or urinary symptoms. History abdominal surgery - small bowel resection, cholecystectomy, appendectomy, total hysterectomy. History of bowel obstruction x1 and was transferred to [facility] for treatment due to a blood clot that occured at the same time. Initial VS at presentation: 98? F, HR 83, RR 20, 185/68, and 99% on RA. ED workup showed: WBC 18.4, sodium 127 (previously 126 on 02/28, history of chronic hyponatremia), creatinine 0.61 and GFR >60, glucose 166, lactic 2.5, lipase/AST/ALT within normal limits. CT of the abdomen/pelvis showed dilated small bowel loops suggestive of partial versus complete obstruction, other appearances are unchanged from previous examinations. EKG showed sinus rhythm, rate 74, LVH, cannot rule out septal infarct age indeterminate, minimal Q-waves high lateral leads. No significant change compared to EKG done on 02/25. Review of Systems Review of Systems: All systems reviewed & are unremarkable except as noted in HPI and below [facility] Past Medical History Medical History (Updated 03/06/25 @ 17:15 by Cherie Garcia, CHANTEL) Hypertension Palpitations Carotid artery stenosis More than 50 percent stenosis of right internal carotid artery Renal artery stenosis Folic acid deficiency Type 2 diabetes mellitus Vitamin D deficiency Chronic anticoagulation Paroxysmal atrial fibrillation Pneumonia Vitamin B 12 deficiency Heart failure with preserved ejection fraction Hypothyroidism Peptic ulcer Deep venous thrombosis Gastroesophageal reflux disease Chronic hyponatremia Chronic, continuous use of opioids Chronic pain syndrome Obstructive sleep apnea Noncompliant with CPAP. Irritable bowel syndrome Coronary artery disease Angioplasty of a diagonal lesion in 01/2018. Cardiac catheterization 06/2019 showed patent coronary arteries. Anxiety Depression Degenerative joint disease involving multiple joints Rheumatoid arthritis Hiatal hernia Asthma Hyperlipidemia Peripheral neuropathy Seasonal allergies Surgical History Surgical History H/O heart artery stent x2 History of exploratory laparotomy Exploratory laparotomy with segmental mid jejunal small bowel resection with [id number] stapled anti peristaltic jejunal anastomosis 10/19/23 History of cataract extraction History of carpal tunnel release History of arthroscopy of both shoulders History of phacoemulsification of cataract with intraocular lens implantation History of cholecystectomy History of appendectomy History of foot surgery History of cardiac catheterization Angioplasty of a diagonal stenosis 01/2018. Cardiac catheterization 06/2019 showed patent coronary arteries. History of hysterectomy Family History Family History Grandparent Diabetes mellitus Father Diabetes mellitus Acute myocardial infarction Hypertension Family history of cardiovascular disease Mother Diabetes mellitus Hypertension Sibling Diabetes mellitus Hypertension Social History Social History Social History: The patient lives in [place]. Her 2023. 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 Lifelong nonsmoker. No alcohol or illicit substance abuse. Per patient, POJeremías is Wild [place], friend. Code status: Full code Caffeine-soda Smoking status: Never smoker Second hand tobacco smoke exposure: No Alcohol intake: never Substance use: never Substance use type: does not use Other substance usage details: medical marijauna Do You Feel Safe in your Home?: Yes Lack of Transportation: No Lack of Food: Never True Current Housing: I Have Housing Concerned About Future Housing: No Difficulty Paying Gas/Electric Bills: No Difficulty Paying for Meds: No Currently Unemployed: No Education: Associate Degree Difficulty w/ Childcare or Family Care: No Spiritual care concerns: No Agree to blood products: Yes Meds Home Medications and Allergies Home Medications ?Medication ?Instructions ?Recorded ?Confirmed ?Type aspirin 81 mg tablet,delayed 81 mg PO DAILY 07/29/19 02/26/25 History release (Adult Low Dose Aspirin) cetirizine 10 mg capsule 10 mg PO DAILY 03/15/23 02/26/25 History ezetimibe 10 mg tablet 10 mg PO QHS 03/15/23 02/26/25 History folic acid 1 mg tablet 3 mg PO DAILY 03/15/23 02/26/25 History albuterol sulfate 90 mcg/actuation 2 puff inhalation QID PRN 06/22/23 02/26/25 History aerosol inhaler Shortness Of Breath Or Wheezing oxycodone-acetaminophen 10 mg-325 1 tablet PO Q6H PRN Pain (Scale 10/28/23 02/26/25 Rx mg tablet Score 4-6) #1 tablet cyanocobalamin (vitamin B-12) 1,000 mcg PO QAM #90 tabs 12/18/23 02/26/25 Rx 1,000 mcg tablet (Vitamin B-12) atorvastatin 40 mg tablet 40 mg PO QHS #90 tabs 02/04/24 02/26/25 Rx docusate sodium 100 mg capsule 100 mg PO DAILY 02/04/24 02/26/25 History (Dulcolax Stool Softener (docusate)) sjgrjjrt-[id number]-[id number]. coag-B. 1 tablet PO DAILY 02/04/24 02/26/25 History subtilis-inulin 1 billion cell-1 gram chew tab (Culturelle Probiotic-Multivit) pantoprazole 40 mg tablet,delayed 40 mg PO DAILY #30 tabs 05/28/24 02/26/25 Rx release apixaban 2.5 mg tablet (Eliquis) 2.5 mg PO Q12HR #60 tabs 06/10/24 02/26/25 Rx polyethylene glycol 3350 17 gram 17 g PO QAM PRN Constipation #30 ea 06/10/24 02/26/25 Rx oral powder packet (Miralax) acetaminophen 500 mg capsule 1,000 mg (2 x 500 mg) PO Q6H PRN 07/25/24 02/26/25 Rx pain #30 caps levothyroxine 88 mcg tablet See Rx Instructions .Route 09/27/24 02/26/25 Rx .COMPLEX #90 tabs nitroglycerin 0.4 mg sublingual See Rx Instructions .Route 09/27/24 02/26/25 Rx tablet .COMPLEX #25 tabs guanfacine 1 mg tablet 1 mg PO HS 10/07/24 02/26/25 History hydralazine 25 mg tablet 50 mg PO TID 10/07/24 02/26/25 History magnesium oxide 400 mg (241.3 mg 400 mg PO QAM #90 tabs 11/25/24 02/26/25 Rx magnesium) tablet losartan 100 mg tablet 100 mg PO DAILY #90 tabs 12/09/24 02/26/25 Rx montelukast 10 mg tablet See Rx Instructions .Route 12/24/24 02/26/25 Rx .COMPLEX #90 tabs linaclotide 290 mcg capsule 290 mcg PO QAM #90 caps 02/23/25 02/26/25 Rx (Linzess) amiloride 5 mg tablet 5 mg PO QAM 02/26/25 02/26/25 History buspirone 10 mg tablet 10 mg PO QAM AND QHS 02/26/25 02/26/25 History ferrous sulfate 325 mg (65 mg 325 mg PO QHS 02/26/25 02/26/25 History iron) tablet,delayed release fluticasone propionate 50 1 spray intranasal BID PRN allergy 02/26/25 02/26/25 History mcg/actuation nasal symptoms spray,suspension (Flonase Allergy Relief) ondansetron 4 mg disintegrating 4 mg PO Q6H PRN nausea and vomiting 02/26/25 02/26/25 History tablet simethicone 80 mg chewable tablet 160 mg PO QID PRN gas 02/26/25 02/26/25 History sodium chloride 1,000 mg soluble 1,000 mg PO TID 02/26/25 02/26/25 History tablet meclizine 25 mg tablet 25 mg PO BID PRN Vertigo #60 tabs 02/28/25 Rx Allergies Allergy/AdvReac Type Severity Reaction Status Date / Time No Known Allergies Allergy Verified 03/06/25 11:53 Vital Signs Vital Signs - 24 hr 03/06/25 11:44 03/06/25 13:05 Temperature 98.0 F Pulse Rate 83 74 Respiratory Rate 20 16 Blood Pressure 185/68 H 153/57 H Pulse Oximetry 99 99 Oxygen Delivery Room Air Exam Const: General: no acute distress and uncomfortable Other: , female, elderly, diffuse discomfort HENMT: Face/Nose/Sinus: Normal nares present Mouth: Yes moist mucous membranes Other: NG in place to right nare Eyes: General: appearance normal, both eyes and all related structures Sclera: sclerae normal Pupils: Equal, round and reactive pupils present EOM: EOMs intact bilaterally Resp: Effort & Inspection: normal respiratory effort Auscultation: clear to auscultation bilaterally Cardio: Rate: regular rate Rhythm: regular rhythm Other: S1-S2 present without murmur, rub, ectopy GI: Other: Hyperactive bowel sounds in all quadrants, mild tenderness that is diffuse, abdomen soft Skin: General skin exam: normal color and no rashes or lesions noted Wo unds: no wounds Neuro: Speech: normal speech Motor exam (neuro): 5/5 motor strength present throughout Sensory Exam: normal sensation Other: A&O x4 Extrem: General: normal to inspection Psych: Mental Status: mental status grossly normal Affect: Anxious affect present Other: Patient tearful, restless, fair insight and judgment. H&P: Results Labs Labs: Short CBC 03/06/25 Range/Units 13:01 WBC 18.4 H (4.5-10.0) K/mm3 Hgb 13.7 (12.0-15.0) g/dL Hct 40.0 (37.0-47.0) % Plt Count 310 (150-375) k/mm3 BMP 03/06/25 13:01 Sodium 127 L Potassium 4.5 Chloride 90 L Carbon Dioxide 24 BUN 9 D Creatinine 0.61 L Glucose 166 H Calcium 9.7 Liver Function 03/06/25 Range/Units 13:01 Total Bilirubin 1.4 H (0.2-1.3) mg/dL AST 35 (14-36) U/L ALT 28 (6-35) U/L Alkaline Phosphatase 103 (38-126) U/L Albumin 4.6 (3.5-5.1) g/dL Assessment and Plan Assessment and plan (1) SBO (small bowel obstruction): Code(s): K56.609 - Unspecified intestinal obstruction, unspecified as to partial versus complete obstruction Status: Acute Assessment and Plan: - CT abdomen/pelvis: 1. Dilated small bowel loops suggestive of partial versus complete obstruction. 2. Other appearances are unchanged from previous examination. - bowel rest, NPO. NG place in ED, confirmation via XR - general surgery consulted - IV fluids: 2L bolus, will hold on further fluids as the patient has history of heart failure with preserved EF - started on Zosyn on 03/06, continued - analgesics p.r.n. (2) Elevated lactic acid level: Code(s): R79.89 - Other specified abnormal findings of blood chemistry Status: Acute Assessment and Plan: - lactic 2.5 -> 2.8, trend down. check procalcitonin -> <0.0. - WBC 18.4, trend - vital signs did not meet SIRS/sepsis criteria - CT of the abdomen/pelvis showed no concerning findings beyond the partial/complete obstruction - check UA -> unremarkable - presume elevated lactic secondary to dehydration (3) Chronic hyponatremia: Code(s): E87.1 - Hypo-osmolality and hyponatremia Status: Chronic Assessment and Plan: - Na 127, previously 126 on 02/28 - history chronic hyponatremia, present since 2018 - monitor (4) FARTUN (iron deficiency anemia): Qualifiers: Iron deficiency anemia type: chronic blood loss Qualified Code(s): D50.0 - Iron deficiency anemia secondary to blood loss (chronic) Code(s): D50.9 - Iron deficiency anemia, unspecified Status: Chronic Assessment and Plan: - Hgb 13.7 - Hx: FARTUN - transfuse if <7 - trend (5) Type 2 diabetes mellitus: Qualifiers: Diabetes mellitus complication status: without complication Diabetes mellitus fitter type bar and segment insulin use: without fitter type bar and segment use Qualified Code(s): E11.9 - Type 2 diabetes mellitus without complications Code(s): E11.9 - Type 2 diabetes mellitus without complications Status: Resolved Assessment and Plan: - hypoglycemia protocol and POC blood glucose Q6H until no longer NPO - history of diabetes, resolved. No longer on medications. - A1C 5.5% on 10/08/2024 (6) Atrial fibrillation: Qualifiers: Atrial fibrillation type: paroxysmal Qualified Code(s): I48.0 - Paroxysmal atrial fibrillation Code(s): I48.91 - Unspecified atrial fibrillation Status: Chronic Assessment and Plan: - history of paroxysmal AFib - EKG, initial, 03/06: sinus rhythm, rate 74, LVH, cannot rule out septal infarct age indeterminate, minimal Q-waves high lateral leads. No significant change compared to EKG done on 02/25. - continue home medications (7) Hypertension: Qualifiers: Hypertension type: primary hypertension Qualified Code(s): I10 - Essential (primary) hypertension Code(s): I10 - Essential (primary) hypertension Status: Chronic Assessment and Plan: - chronic, currently 153/57 - continue home medications - monitor Plan Diet: NPO GI Prophylaxis: Pantoprazole DVT Prophylaxis: SCDs, Eliquis IV fluids: 2L bolus, no further fluids due to history of HFpEF Lines/Tubes: Peripheral IV, NG tube Code Status: Full code Quality VTE Prophylaxis VTE prophylaxis: mechanical ordered Hospitalist [facility] Advance Care Plan I have confirmed that the patient's Advanced Care Plan is present, code status is documented, or surrogate decision maker is listed in patient medical record.: Yes Medication Reconciliation I have utilized all available resources to obtain, update and review the patients current medications (includes all prescriptions, OTC, herbals, cannabi s, and nutritional supplements).: Yes
[2025-03-06 15:40] LABS: Add Urine Microscopic? NO; Appearance Urine Clear (Clear); Glucose Urine UA Negative (Negative); Leukocyte Esterase Ur Negative LEU/UL (Negative); Nitrate Urine Negative (Negative); Specific Grav Ur 1.014 (1.001-1.035)
[2025-03-06 16:05] LABS: Procalcitonin < 0.0 ng/mL
--- NOTE | 2025-03-06 16:51 | ADMGEN ---
This patient, Aracely Spear, was admitted to Medical Room 340-01. Patient/family oriented to hospital policies and general routines including ID bracelet, bed and alarms, visiting hours, pain management, procedures, bathroom and other care routines, personal items, smoking policy, room service/diet, and visiting hours. Information on how to activate the Rapid Response Team has been discussed. Patient/Family are encouraged to report perceived risks to care and to ask questions if they do not understand what they are told or what they should do.
[2025-03-06] MEDS: METOCLOPRAMIDE HCL INJ 10 MG/2 ML VIAL IV PUSH (18:02)
[2025-03-06] MEDS: MORPHINE SULFATE (*CRX) 4 MG/ML INJ IV PUSH (21:59)
[2025-03-07] VITALS (7 sets, daily range): BP systolic 129–159; BP diastolic 64–77; PULSE 79–86; RESP 18–20; TEMP 35.9–37.2; O2SAT 93–100; BMI 25.3
[2025-03-07] MEDS: MORPHINE SULFATE (*CRX) 4 MG/ML INJ IV PUSH ×5 (02:13→18:28)
[2025-03-07] MEDS: PIPERACILLN/TAZ 3.375GM/NS50ML 3.375 GM/50 ML BAG IVPB ×3 (06:12→22:11)
--- NOTE | 2025-03-07 07:44 | P.PNIM_ITS ---
Progress Note: A&P Assessment and Plan (1) SBO (small bowel obstruction): Code(s): K56.609 - Unspecified intestinal obstruction, unspecified as to partial versus complete obstruction Status: Acute Assessment and Plan: * CT abdomen/pelvis: * Dilated small bowel loops suggestive of partial versus complete obstruction. * Other appearances are unchanged from previous examination. * bowel rest, NPO. NG place in ED, confirmation via XR * IV fluids: 2L bolus, will hold on further fluids as the patient has history of heart failure with preserved EF * started on Zosyn on 03/06, continued * analgesics p.r.n. * Leukocytosis improving, WBC down from 18.4-12.5 on 03/07 * general surgery consulted * appreciate further recommendations * Water-soluble small-bowel follow-through series today * IV fluid hydration while NPO * Surgical management not rule out at this time, continue to hold Eliquis * Maintain antibiotics, IV fluid hydration, hold Eliquis * Small-bowel follow-through series (2) Elevated lactic acid level: Code(s): R79.89 - Other specified abnormal findings of blood chemistry Status: Acute Assessment and Plan: * lactic 2.5 -> 2.8, trend down. check procalcitonin -> <0.0. * WBC 18.4, trend * vital signs did not meet SIRS/sepsis criteria * CT of the abdomen/pelvis showed no concerning findings beyond the partial/complete obstruction * check UA -> unremarkable * presume elevated lactic secondary to dehydration * 03/07, repeat lactic acid down to 0.9 (3) Chronic hyponatremia: Code(s): E87.1 - Hypo-osmolality and hyponatremia Status: Chronic Assessment and Plan: * Na 127, previously 126 on 02/28 * history chronic hyponatremia, present since 2019 * monitor * 03/07: Sodium 132 (4) FARTUN (iron deficiency anemia): Qualifiers: Iron deficiency anemia type: chronic blood loss Qualified Code(s): D50.0 - Iron deficiency anemia secondary to blood loss (chronic) Code(s): D50.9 - Iron deficiency anemia, unspecified Status: Chronic Assessment and Plan: * Hgb 13.7 * Hx: FARTUN * transfuse if <7 * trend * 03/07: Hgb 11.3 (5) Type 2 diabetes mellitus: Qualifiers: Diabetes mellitus complication status: without complication Diabetes mellitus group home insulin use: without parts counterman use Qualified Code(s): E11.9 - Type 2 diabetes mellitus without complications Code(s): E11.9 - Type 2 diabetes mellitus without complications Status: Resolved Assessment and Plan: * hypoglycemia protocol and POC blood glucose Q6H until no longer NPO * history of diabetes, resolved. No longer on medications. * A1C 5.5% on 10/08/2024 (6) Atrial fibrillation: Qualifiers: Atrial fibrillation type: paroxysmal Qualified Code(s): I48.0 - Paroxysmal atrial fibrillation Code(s): I48.91 - Unspecified atrial fibrillation Status: Chronic Assessment and Plan: * history of paroxysmal AFib * EKG, initial, 03/06: sinus rhythm, rate 74, LVH, cannot rule out septal infarct age indeterminate, minimal Q-waves high lateral leads. No significant change compared to EKG done on 02/25. * continue home medications (7) Hypertension: Qualifiers: Hypertension type: primary hypertension Qualified Code(s): I10 - Essential (primary) hypertension Code(s): I10 - Essential (primary) hypertension Status: Chronic Assessment and Plan: * chronic, currently 153/57 * continue home medications * monitor Plan Diet: NPO GI Prophylaxis: Pantoprazole DVT Prophylaxis: SCDs, Eliquis IV fluids: 2L bolus, no further fluids due to history of HFpEF Lines/Tubes: Peripheral IV, NG tube Code Status: Full code Subjective Date/time seen: 03/07/25 07:44 Interval history: 80 y/o F with PMH of chronic hyponatremia, CAD, DVT, anxiety/depression, HF with preserved EF, HLD, HTN, hypothyroidism, IBS, ELVIRA noncompliant with CPAP, paroxysmal AFib, rheumatoid arthritis, and diabetes presents here with nausea and vomiting. 03/07/2025 Patient sitting comfortably in bed at time of exam. Reports having episodes of abdominal pain and vomiting yesterday before admission. Lactic acid has decreased from 2.8-0.9 this morning. NG tube was placed with 300 cc of drainage overnight. Denies flatus or bowel movement since admission to unit. General surgery consulted, agree with continuing NG tube decompression, bowel rest and maintenance IV fluids while patient remains NPO. Patient did undergo water- soluble small-bowel follow-through series today. Surgical management not ruled out at this time, continue to hold Eliquis. Review of Systems Review of Systems: All systems reviewed & are unremarkable except as noted in HPI and below Exam Const: General: no acute distress and uncomfortable Other: , female, elderly, diffuse discomfort HENMT: Face/Nose/Sinus: Normal nares present Mouth: Yes moist mucous membranes Other: NG in place to right nare Eyes: General: appearance normal, both eyes and all related structures Sclera: sclerae normal Pupils: Equal, round and reactive pupils present EOM: EOMs intact bilaterally Resp: Effort & Inspection: normal respiratory effort Auscultation: clear to auscultation bilaterally Cardio: Rate: regular rate Rhythm: regular rhythm Other: S1-S2 present without murmur, rub, ectopy GI: Other: Hyperactive bowel sounds in all quadrants, mild tenderness that is diffuse, abdomen soft Skin: General skin exam: normal color and no rashes or lesions noted Wounds: no wounds Neuro: Cranial nerves: Yes Equal, round and reactive pupils present Speech: normal speech Motor exam (neuro): 5/5 motor strength present throughout Sensory Exam: normal sensation Other: A&O x4 Extrem: General: normal to inspection Psych: Mental Status: mental status grossly normal Affect: Anxious affect present Other: Patient tearful, restless, fair insight and judgment. Objective Data Vital Signs Vital Signs: Vital Signs - 24 hr 03/06/25 11:44 03/06/25 11:50 03/06/25 11:51 Temperature 98.0 F Pulse Rate 83 Respiratory Rate 20 Blood Pressure 185/68 H 193/63 H Pulse Oximetry 99 99 Oxygen Delivery Room Air 03/06/25 11:52 03/06/25 12:00 03/06/25 12:01 Temperature Pulse Rate 87 88 Respiratory Rate 16 18 Blood Pressure 185/68 H 179/66 H Pulse Oximetry 98 98 98 Oxygen Delivery 03/06/25 12:15 03/06/25 12:16 03/06/25 12:30 Temperature Pulse Rate Respiratory Rate Blood Pressure 158/79 H Pulse Oximetry 99 98 100 Oxygen Delivery 03/06/25 12:31 03/06/25 12:57 03/06/25 13:00 Temperature Pulse Rate 80 79 Respiratory Rate 16 14 Blood Pressure 153/57 H Pulse Oximetry 97 99 97 Oxygen Delivery 03/06/25 13:05 03/06/25 13:15 03/06/25 13:30 Temperature Pulse Rate 74 72 71 Respiratory Rate 16 19 15 Blood Pressure 153/57 H Pulse Oximetry 99 99 99 Oxygen Delivery 03/06/25 14:12 03/06/25 14:15 03/06/25 14:30 Temperature Pulse Rate 109 H 94 91 Respiratory Rate 24 H 14 18 Blood Pressure Pulse Oximetry 99 99 99 Oxygen Delivery 03/06/25 15:00 03/06/25 15:15 03/06/25 15:30 Temperature Pulse Rate 84 97 98 Respiratory Rate 15 18 14 Blood Pressure Pulse Oximetry 100 99 100 Oxygen Delivery 03/06/25 15:37 03/06/25 15:46 03/06/25 16:00 Temperature Pulse Rate 80 92 88 Respiratory Rate 19 16 13 Blood Pressure 151/68 H 133/60 Pulse Oximetry 100 96 100 Oxygen Delivery 03/06/25 16:01 03/06/25 16:15 03/06/25 16:16 Temperature Pulse Rate 85 81 83 Respiratory Rate 17 15 15 Blood Pressure 175/64 H 158/63 H Pulse Oximetry 100 100 99 Oxygen Delivery 03/06/25 16:30 03/06/25 16:31 03/06/25 21:02 Temperature Pulse Rate 89 97 Respiratory Rate 13 15 Blood Pressure 169/65 H Pulse Oximetry 99 99 Oxygen Delivery Room Air 03/06/25 21:14 03/07/25 06:00 Temperature 98.6 F 98.6 F Pulse Rate 69 79 Respiratory Rate 16 18 Blood Pressure 155/46 H 129/77 Pulse Oximetry 98 100 Oxygen Delivery Intake/Output Intake/Output: Intake & Output 03/04/25 03/05/25 03/06/25 03/07/25 23:59 23:59 23:59 23:59 Intake Total 2100 50 Output Total 1070 900 Balance 1030 -850 Meds/Results Medications: Active Medications Generic Name Dose Route Start Last Admin Trade Name Freq PRN Reason Stop Dose Admin Acetaminophen 650 mg 03/06/25 16:19 Acetaminophen 650 Mg Suppository RECTAL Q6H PRN Mild Pain (1-3) or Fever Dextrose 12.5 gm 03/06/25 16:19 Dextrose 50% 25 Gm/50 Ml Syringe IV PUSH PRN PRN Hypoglycemia Protocol Glucagon 1 mg 03/06/25 16:19 Glucagon For Inj 1 Mg Vial IM PRN PRN Hypoglycemia Protocol Glucose 15 gm 03/06/25 16:19 Glucose Oral Gel 15 Gm Of Glucse In 37.5 Gm Tube PO PRN PRN Hypoglycemia Protocol Piperacillin/Tazobactam/Dextrose 3.375 gm in 50 mls @ 100 mls/hr 03/06/25 22:00 03/07/25 06:42 Zosyn 3.375 Gm/Ns 50 Ml IVPB Infused Q6HR GINO Infusion Dextrose 1,000 mls @ 100 mls/hr 03/06/25 16:19 Dextrose 5% 1,000 Ml IVPB PRN PRN Hypoglycemia Protocol Morphine Sulfate 2 mg 03/06/25 16:19 Morphine Sulfate (*Crx) 2 Mg/Ml Inj IV PUSH Q4H PRN Pain Rated 4-6 Morphine Sulfate 4 mg 03/06/25 16:19 03/07/25 06:11 Morphine Sulfate (*Crx) 4 Mg/Ml Inj IV PUSH 4 mg Q4H PRN Administration Pain Rated 7-10 Naloxone HCl 0.1 mg 03/06/25 16:20 Naloxone Hcl 0.4 Mg/Ml Vial IV PUSH Q5MIN PRN Sedation Radiology Results: ITS Impressions Abdomen/Pelvis CT 03/06/25 14:15 IMPRESSION: 1. Dilated small bowel loops suggestive of partial versus complete obstruction. 2. Other appearances are unchanged from previous examination. Labs Labs: Laboratory Results - last 24 hr 03/06/25 03/06/25 03/06/25 13:01 15:33 17:36 WBC 18.4 H RBC 4.30 Hgb 13.7 Hct 40.0 MCV 93.0 MCH 31.9 MCHC 34.3 RDW 12.6 Plt Count 310 MPV 9.2 Immature Gran % (Auto) 0.7 H Neut % (Auto) 82.9 H Lymph % (Auto) 10.5 L [place] % (Auto) 5.7 Eos % (Auto) 0.0 Baso % (Auto) 0.2 Lymph # (Auto) 1.94 [place] # (Auto) 1.1 H Eos # (Auto) 0.0 Baso # (Auto) 0.0 Abs Immat Gran (auto) 0.13 H Absolute Neuts (auto) 15.3 H Absolute Nucleated RBC 0.000 Nucleated RBC % 0.0 Sodium 127 L Potassium 4.5 Chloride 90 L Carbon Dioxide 24 Anion Gap 13 H BUN 9 D Creatinine 0.61 L Estim Creat Clear Calc Not Reportable Estimated GFR > 60 Glucose 166 H POC Capillary Glucose 144 H Lactic Acid 2.5 H 2.8 H Calcium 9.7 Total Bilirubin 1.4 H AST 35 ALT 28 Alkaline Phosphatase 103 Total Protein 7.7 Albumin 4.6 Lipase 25 Procalcitonin < 0.0 Urine Color Yellow Urine Appearance Clear Urine pH 7.0 Ur Specific [place] 1.014 Urine Protein Negative Urine Glucose (UA) Negative Urine Ketones Negative Ur Blood (Man) Negative Urine Nitrate Negative Urine Bilirubin Negative Urine Urobilinogen 0.2 Leukocyte Esterase Rfl Negative 03/06/25 03/07/25 03/07/25 20:27 00:19 05:41 WBC RBC Hgb Hct MCV MCH MCHC RDW Plt Count MPV Immature Gran % (Auto) Neut % (Auto) Lymph % (Auto) [place] % (Auto) Eos % (Auto) Baso % (Auto) Lymph # (Auto) [place] # (Auto) Eos # (Auto) Baso # (Auto) Abs Immat Gran (auto) Absolute Neuts (auto) Absolute Nucleated RBC Nucleated RBC % Sodium Potassium Chloride Carbon Dioxide Anion Gap BUN Creatinine Estim Creat Clear Calc Estimated GFR Glucose POC Capillary Glucose 107 H 104 Lactic Acid 0.9 Calcium Total Bilirubin AST ALT Alkaline Phosphatase Total Protein Albumin Lipase Procalcitonin Urine Color Urine Appearance Urine pH Ur Specific [place] Urine Protein Urine Glucose (UA) Urine Ketones Ur Blood (Man) Urine Nitrate Urine Bilirubin Urine Urobilinogen Leukocyte Esterase Rfl 03/07/25 06:22 WBC RBC Hgb Hct MCV MCH MCHC RDW Plt Count MPV Immature Gran % (Auto) Neut % (Auto) Lymph % (Auto) [place] % (Auto) Eos % (Auto) Baso % (Auto) Lymph # (Auto) [place] # (Auto) Eos # (Auto) Baso # (Auto) Abs Immat Gran (auto) Absolute Neuts (auto) Absolute Nucleated RBC Nucleated RBC % Sodium Potassium Chloride Carbon Dioxide Anion Gap BUN Creatinine Estim Creat Clear Calc Estimated GFR Glucose POC Capillary Glucose 122 H Lactic Acid Calcium Total Bilirubin AST ALT Alkaline Phosphatase Total Protein Albumin Lipase Procalcitonin Urine Color Urine Appearance Urine pH Ur Specific [place] Urine Protein Urine Glucose (UA) Urine Ketones Ur Blood (Man) Urine Nitrate Urine Bilirubin Urine Urobilinogen Leukocyte Esterase Rfl Quality VTE Prophylaxis VTE prophylaxis: mechanical ordered
[2025-03-07 07:53] LABS: Hematocrit 33.3 % (37.0-47.0); Hemoglobin 11.3 g/dL (12.0-15.0); Immature Granulocyte Percent A 0.5 % (0-0.5); Lymphocytes Absolute Auto 2.86 K/mm3 (0.9-3.2); Mean Corpuscular HGB Conc 33.9 g/dl (32-36); Mean Corpuscular Hemoglobin 32.1 pg (26-34); Mean Corpuscular Volume 94.6 fl (80-100); Nucleated Red Blood Cells Absolute Auto 0.000 K/mm3 (0.0-0.012); Nucleated Red Blood Cells Perc 0.0 % (0.0-0.2); Platelet Count Result 287 k/mm3 (150-375); Red Blood Count 3.52 M/mm3 (4.2-5.4); White Blood Count 12.5 K/mm3 (4.5-10.0)
[2025-03-07 08:49] LABS: Alanine Aminotransferase 17 U/L (6-35); Albumin Level 3.6 g/dL (3.5-5.1); Alkaline Phosphatase 67 U/L (38-126); Anion Gap 9 mmol/L (4-12); Aspartate Amino Transferase 61 U/L (14-36); Bilirubin,Total 1.6 mg/dL (0.2-1.3); Blood Urea Nitrogen 10 mg/dL (7-17); Calcium 9.0 mg/dL (8.4-10.2); Carbon Dioxide 24 mmol/L (22-30); Chloride 99 mmol/L (98-107); Estimated Glomerular Filt Rate > 60; Glucose 97 mg/dL (65-110); Potassium 4.0 mmol/L (3.4-5.0); Sodium 132 mmol/L (137-145); Total Protein 6.1 g/dL (6.3-8.2)
--- NOTE | 2025-03-07 10:15 | P.CONGS_ITS ---
Assessment and Plan Assessment and plan (1) SBO (small bowel obstruction): Code(s): K56.609 - Unspecified intestinal obstruction, unspecified as to partial versus complete obstruction Status: Acute Assessment and Plan: * CT scan reviewed and showed evidence of a small bowel obstruction with possible transition in the left mid abdomen. She has had multiple previous abdominal surgeries and previous small bowel obstructions. This is likely related to intraabdominal adhesions. Her abdominal pain has improved since NG tube placement. She does not have any signs of an acute surgical abdomen at this time. Her lactic acid has normalized. Continue NG tube decompression, bowel rest, and I will start maintenance IV fluids while NPO. Will also order a water soluble small bowel follow through to further evaluate the obstruction. Discussed with the patient that she may require surgical management if this does not resolve with conservative measures. She has multiple co-morbidities, is anticoagulated, and at an advanced age that would increase her surgical risks. Her last dose of Eliquis was yesterday morning, so we will continue to hold this for now in case surgical exploration is needed. (2) Leukocytosis: Code(s): D72.829 - Elevated white blood cell count, unspecified Status: Acute Assessment and Plan: * WBC count at 18,400 on admission and trending down to 12,500 today. Her abdominal pain has improved and she does not have an acute surgical abdomen. Will continue IV Zosyn for now and trend labs. See plan above regarding the small bowel obstruction. (3) Type 2 diabetes mellitus: Qualifiers: Diabetes mellitus care home insulin use: without ferry terminal agent use Diabetes mellitus complication status: without complication Qualified Code(s): E11.9 - Type 2 diabetes mellitus without complications Code(s): E11.9 - Type 2 diabetes mellitus without complications Status: Resolved Assessment and Plan: * Controlled on last hgb A1C in September. Management per Hospitalist. (4) Chronic anticoagulation: Code(s): Z79.01 - intermediate frame tender (current) use of anticoagulants Status: Chronic Assessment and Plan: * Hold Eliquis for now. (5) Paroxysmal A-fib: Code(s): I48.0 - Paroxysmal atrial fibrillation Status: Acute (6) Carotid artery stenosis: Code(s): I65.29 - Occlusion and stenosis of unspecified carotid artery Status: Acute (7) Heart failure with preserved ejection fraction: Qualifiers: Heart failure chronicity: chronic Qualified Code(s): I50.32 - Chronic diastolic (congestive) heart failure Code(s): I50.30 - Unspecified diastolic (congestive) heart failure Status: Acute (8) Chronic, continuous use of opioids: Code(s): F11.90 - Opioid use, unspecified, uncomplicated Status: Acute Assessment and Plan: * Chronic use of opioids due to chronic back pain. Plan I have discussed the patient's case and plan of care with Dr. Moore. History of Present Illness Consult details Consult date: 03/07/25 Reason for consult: other (Small-bowel obstruction) Requesting physician: Cherie Garcia APRN Narrative: This is an 80-year-old female with a history of CAD, paroxysmal AFib on Eliquis, HF with PEF, rheumatoid arthritis, type 2 diabetes mellitus, chronic back pain with chronic opioid use, and multiple other comorbidities, who we have been asked to see in surgical consultation for a small-bowel obstruction. She has a history of small-bowel obstructions. She underwent exploratory laparotomy with small-bowel resection in October of 2023 for a small-bowel obstruction. Most recently, she was admitted in September of 2024 for a small- bowel obstruction that resolved with NG tube decompression. She reports having chronic intermittent mid upper abdominal pain that she relates to an incisional hernia from her laparotomy incision. She reports yesterday developing upper abdominal pain and vomiting. She could not keep down liquids and eventually her friend called EMS to bring her in for evaluation. Her last bowel movement was 2 days ago and reportedly normal. Workup in the ED showed CT evidence of a small- bowel obstruction with possible transition point in the left mid abdomen. White blood cell count was initially 83660 and is down to 12,000 today. Lactic acid was 2.8 and is down to 0.9 on repeat labs this morning. She had an NG tube placed and was admitted. She has had 300 cc out of the NG tube overnight. She denies flatus or BM since admission. Additional abdominal surgeries include a laparoscopic cholecystectomy and total abdominal hysterectomy with an appendectomy at the time of the hysterectomy. Review of Systems 2 Review of Systems: All systems reviewed & are unremarkable except as noted in HPI and below PMFSH Past Medical History Medical History Hypertension Palpitations Carotid artery stenosis More than 50 percent stenosis of right internal carotid artery Renal artery stenosis Folic acid deficiency Type 2 diabetes mellitus Vitamin D deficiency Chronic anticoagulation Paroxysmal atrial fibrillation Pneumonia Vitamin B 12 deficiency Heart failure with preserved ejection fraction Hypothyroidism Peptic ulcer Deep venous thrombosis Gastroesophageal reflux disease Chronic hyponatremia Chronic, continuous use of opioids Chronic pain syndrome Obstructive sleep apnea Noncompliant with CPAP. Irritable bowel syndrome Coronary artery disease Angioplasty of a diagonal lesion in 01/2018. Cardiac catheterization 06/2019 showed patent coronary arteries. Anxiety Depression Degenerative joint disease involving multiple joints Rheumatoid arthritis Hiatal hernia Asthma Hyperlipidemia Peripheral neuropathy Seasonal allergies Surgical History Surgical History (Updated 03/07/25 @ 10:27 by BERENICE Thacker) H/O heart artery stent x2 History of exploratory laparotomy Exploratory laparotomy with segmental mid jejunal small bowel resection with [id number] stapled anti peristaltic jejunal anastomosis 10/19/23 History of cataract extraction History of carpal tunnel release History of arthroscopy of both shoulders History of phacoemulsification of cataract with intraocular lens implantation History of cholecystectomy History of appendectomy at the time of her hysterectomy History of foot surgery History of cardiac catheterization Angioplasty of a diagonal stenosis 01/2018. Cardiac catheterization 06/2019 showed patent coronary arteries. History of hysterectomy Family History Family History Grandparent Diabetes mellitus Father Diabetes mellitus Acute myocardial infarction Hypertension Family history of cardiovascular disease Mother Diabetes mellitus Hypertension Sibling Diabetes mellitus Hypertension Social History Social History Social History: The patient lives in [place]. Her 2021. 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 Lifelong nonsmoker. No alcohol or illicit substance abuse. Per patient, POA is [employer] Price, friend. Code status: Full code Caffeine-soda Smoking status: Never smoker Second hand tobacco smoke exposure: No Alcohol intake: never Substance use: never Substance use type: does not use Other substance usage details: medical marijauna Do You Feel Safe in your Home?: Yes Lack of Transportation: No Lack of Food: Never True Current Housing: I Have Housing Concerned About Future Housing: No Difficulty Paying Gas/Electric Bills: No Difficulty Paying for Meds: No Currently Unemployed: No Education: Associate Degree Difficulty w/ Childcare or Family Care: No Spiritual care concerns: No Agree to blood products: Yes Meds Home Medications and Allergies Home Medications ?Medication ?Instructions ?Recorded ?Confirmed ?Type aspirin 81 mg tablet,delayed 81 mg PO DAILY 07/29/19 03/06/25 History release (Adult Low Dose Aspirin) ezetimibe 10 mg tablet 10 mg PO QHS 03/15/23 03/06/25 History folic acid 1 mg tablet 3 mg PO DAILY 03/15/23 03/06/25 History albuterol sulfate 90 mcg/actuation 2 puff inhalation QID PRN 06/22/23 03/06/25 History aerosol inhaler Shortness Of Breath Or Wheezing oxycodone-acetaminophen 10 mg-325 1 tablet PO Q6H PRN Pain (Scale 10/28/23 03/06/25 Rx mg tablet Score 4-6) #1 tablet cyanocobalamin (vitamin B-12) 1,000 mcg PO QAM #90 tabs 12/18/23 03/06/25 Rx 1,000 mcg tablet (Vitamin B-12) atorvastatin 40 mg tablet 40 mg PO QHS #90 tabs 02/04/24 03/06/25 Rx pantoprazole 40 mg tablet,delayed 40 mg PO DAILY #30 tabs 05/28/24 03/06/25 Rx release apixaban 2.5 mg tablet (Eliquis) 2.5 mg PO Q12HR #60 tabs 06/10/24 03/06/25 Rx polyethylene glycol 3350 17 gram 17 g PO QAM PRN Constipation #30 ea 06/10/24 03/06/25 Rx oral powder packet (Miralax) acetaminophen 500 mg capsule 1,000 mg (2 x 500 mg) PO Q6H PRN 07/25/24 03/06/25 Rx pain #30 caps guanfacine 1 mg tablet 1 mg PO HS 10/07/24 03/06/25 History hydralazine 25 mg tablet 50 mg PO TID 10/07/24 03/06/25 History magnesium oxide 400 mg (241.3 mg 400 mg PO QAM #90 tabs 11/25/24 03/06/25 Rx magnesium) tablet losartan 100 mg tablet 100 mg PO DAILY #90 tabs 12/09/24 03/06/25 Rx linaclotide 290 mcg capsule 290 mcg PO QAM #90 caps 02/23/25 03/06/25 Rx (Linzess) amiloride 5 mg tablet 5 mg PO QAM 02/26/25 03/06/25 History buspirone 10 mg tablet 10 mg PO QAM AND QHS 02/26/25 03/06/25 History ferrous sulfate 325 mg (65 mg 325 mg PO QHS 02/26/25 03/06/25 History iron) tablet,delayed release fluticasone propionate 50 1 spray intranasal BID PRN allergy 02/26/25 03/06/25 History mcg/actuation nasal symptoms spray,suspension (Flonase Allergy Relief) ondansetron 4 mg disintegrating 4 mg PO Q6H PRN nausea and vomiting 02/26/25 03/06/25 History tablet simethicone 80 mg chewable tablet 160 mg PO QID PRN gas 02/26/25 03/06/25 History sodium chloride 1,000 mg soluble 1,000 mg PO TID 02/26/25 03/06/25 History tablet meclizine 25 mg tablet 25 mg PO BID PRN Vertigo #60 tabs 02/28/25 03/06/25 Rx albuterol sulfate 90 mcg/actuation 2 inh inhalation Q6H PRN shortness 03/06/25 03/06/25 History breath activated powder inhaler of breath or wheezing (ProAir RespiClick) amlodipine 5 mg tablet 5 mg PO DAILY 03/06/25 03/06/25 History bisacodyl 5 mg tablet,delayed 5 mg PO DAILY 03/06/25 03/06/25 History release levothyroxine 88 mcg tablet 88 mcg PO DAILY 03/06/25 03/06/25 History montelukast 10 mg tablet 10 mg PO DAILY 03/06/25 03/06/25 History nitrofurantoin 100 mg PO BID 03/06/25 03/06/25 History monohydrate/macrocrystals 100 mg capsule nitroglycerin 0.4 mg sublingual 0.4 mg sublingual PRN chest pain 03/06/25 03/06/25 History tablet Allergies Allergy/AdvReac Type Severity Reaction Status Date / Time No Known Allergies Allergy Verified 03/06/25 11:53 Vital Signs Vital Signs - 24 hr 03/06/25 11:44 03/06/25 11:50 03/06/25 11:51 Temperature 98.0 F Pulse Rate 83 Respiratory Rate 20 Blood Pressure 185/68 H 193/63 H Pulse Oximetry 99 99 Oxygen Delivery Room Air 03/06/25 11:52 03/06/25 12:00 03/06/25 12:01 Temperature Pulse Rate 87 88 Respiratory Rate 16 18 Blood Pressure 185/68 H 179/66 H Pulse Oximetry 98 98 98 Oxygen Delivery 03/06/25 12:15 03/06/25 12:16 03/06/25 12:30 Temperature Pulse Rate Respiratory Rate Blood Pressure 158/79 H Pulse Oximetry 99 98 100 Oxygen Delivery 03/06/25 12:31 03/06/25 12:57 03/06/25 13:00 Temperature Pulse Rate 80 79 Respiratory Rate 16 14 Blood Pressure 153/57 H Pulse Oximetry 97 99 97 Oxygen Delivery 03/06/25 13:05 03/06/25 13:15 03/06/25 13:30 Temperature Pulse Rate 74 72 71 Respiratory Rate 16 19 15 Blood Pressure 153/57 H Pulse Oximetry 99 99 99 Oxygen Delivery 03/06/25 14:12 03/06/25 14:15 03/06/25 14:30 Temperature Pulse Rate 109 H 94 91 Respiratory Rate 24 H 14 18 Blood Pressure Pulse Oximetry 99 99 99 Oxygen Delivery 03/06/25 15:00 03/06/25 15:15 03/06/25 15:30 Temperature Pulse Rate 84 97 98 Respiratory Rate 15 18 14 Blood Pressure Pulse Oximetry 100 99 100 Oxygen Delivery 03/06/25 15:37 03/06/25 15:46 03/06/25 16:00 Temperature Pulse Rate 80 92 88 Respiratory Rate 19 16 13 Blood Pressure 151/68 H 133/60 Pulse Oximetry 100 96 100 Oxygen Delivery 03/06/25 16:01 03/06/25 16:15 03/06/25 16:16 Temperature Pulse Rate 85 81 83 Respiratory Rate 17 15 15 Blood Pressure 175/64 H 158/63 H Pulse Oximetry 100 100 99 Oxygen Delivery 03/06/25 16:30 03/06/25 16:31 03/06/25 21:02 Temperature Pulse Rate 89 97 Respiratory Rate 13 15 Blood Pressure 169/65 H Pulse Oximetry 99 99 Oxygen Delivery Room Air 03/06/25 21:14 03/07/25 06:00 Temperature 98.6 F 98.6 F Pulse Rate 69 79 Respiratory Rate 16 18 Blood Pressure 155/46 H 129/77 Pulse Oximetry 98 100 Oxygen Delivery Exam 2 Const: General: comfortable and no acute distress Nutritional Appearance: a verage body habitus Orientation/consciousness: patient oriented x3 HENMT: Head: normocephalic and atraumatic Ears: hearing grossly normal bilaterally Mouth: Yes moist mucous membranes Eyes: General: appearance normal, both eyes and all related structures P upils: Equal, round and reactive pupils present Neck: Neck: normal visual inspection and full ROM Resp: Effort & Inspection: no respiratory distress Auscultation: clear to auscultation bilaterally Cardio: Rate: regular rate Rhythm: regular rhythm GI: Other: Abdomen is mildly distended and soft. Midline scar with a 2 cm defect felt at the top of the laparotomy scar with no bulge. Mild tenderness across the upper abdomen. No guarding or peritoneal signs. Bowel sounds are absent. Skin: General skin exam: normal color Neuro: General: moves all extremities and no focal motor deficits Speech: n ormal speech Motor exam (neuro): 5/5 motor strength present throughout Extrem: General: normal to inspection and no edema Psych: Mental Status: mental status grossly normal Attitude: cooperative Insight: Good insight present (Psych) Judgement: Good judgement present (Psych) Results Labs 03/07/25 05:41 03/07/25 05:41 Labs: Abnormal lab results 03/06/25 03/06/25 03/06/25 Range/Units 13:01 15:33 17:36 WBC 18.4 H (4.5-10.0) K/mm3 RBC (4.2-5.4) M/mm3 Hgb (12.0-15.0) g/dL Hct (37.0-47.0) % Immature Gran % (Auto) 0.7 H (0-0.5) % Neut % (Auto) 82.9 H (45.5-73.1) % Lymph % (Auto) 10.5 L (18.3-44.2) % [place] % (Auto) (2.6-8.5) % [place] # (Auto) 1.1 H (0.1-0.6) K/mm3 Abs Immat Gran (auto) 0.13 H (0.00-0.031) K/mm3 Absolute Neuts (auto) 15.3 H (1.3-6.7) K/mm3 Sodium 127 L (137-145) mmol/L Chloride 90 L (98-107) mmol/L Anion Gap 13 H (4-12) mmol/L Creatinine 0.61 L (0.7-1.0) mg/dL Glucose 166 H (65-110) mg/dL POC Capillary Glucose 144 H (65-105) mg/dl Lactic Acid 2.5 H 2.8 H (0.7-2.0) mmol/L Total Bilirubin 1.4 H (0.2-1.3) mg/dL AST (14-36) U/L Total Protein (6.3-8.2) g/dL 03/06/25 03/07/25 03/07/25 Range/Units 20:27 05:41 06:22 WBC 12.5 H (4.5-10.0) K/mm3 RBC 3.52 L (4.2-5.4) M/mm3 Hgb 11.3 L (12.0-15.0) g/dL Hct 33.3 L (37.0-47.0) % Immature Gran % (Auto) (0-0.5) % Neut % (Auto) (45.5-73.1) % Lymph % (Auto) (18.3-44.2) % [place] % (Auto) 8.9 H (2.6-8.5) % [place] # (Auto) 1.1 H (0.1-0.6) K/mm3 Abs Immat Gran (auto) 0.06 H (0.00-0.031) K/mm3 Absolute Neuts (auto) 8.3 H (1.3-6.7) K/mm3 Sodium 132 L (137-145) mmol/L Chloride (98-107) mmol/L Anion Gap (4-12) mmol/L Creatinine (0.7-1.0) mg/dL Glucose (65-110) mg/dL POC Capillary Glucose 107 H 122 H (65-105) mg/dl Lactic Acid (0.7-2.0) mmol/L Total Bilirubin 1.6 H (0.2-1.3) mg/dL AST 61 H (14-36) U/L Total Protein 6.1 L (6.3-8.2) g/dL Diabetes panel 03/06/25 03/07/25 Range/Units 13:01 05:41 Sodium 127 L 132 L (137-145) mmol/L Potassium 4.5 4.0 (3.4-5.0) mmol/L Chloride 90 L 99 (98-107) mmol/L Carbon Dioxide 24 24 (22-30) mmol/L BUN 9 D 10 (7-17) mg/dL Creatinine 0.61 L 0.76 (0.7-1.0) mg/dL Glucose 166 H 97 (65-110) mg/dL Calcium 9.7 9.0 (8.4-10.2) mg/dL AST 35 61 H (14-36) U/L ALT 28 17 (6-35) U/L Alkaline Phosphatase 103 67 (38-126) U/L Total Protein 7.7 6.1 L (6.3-8.2) g/dL Albumin 4.6 3.6 (3.5-5.1) g/dL Calcium panel 03/06/25 03/07/25 Range/Units 13:01 05:41 Calcium 9.7 9.0 (8.4-10.2) mg/dL Albumin 4.6 3.6 (3.5-5.1) g/dL Pituitary panel 03/06/25 03/07/25 Range/Units 13:01 05:41 Sodium 127 L 132 L (137-145) mmol/L Potassium 4.5 4.0 (3.4-5.0) mmol/L Chloride 90 L 99 (98-107) mmol/L Carbon Dioxide 24 24 (22-30) mmol/L BUN 9 D 10 (7-17) mg/dL Creatinine 0.61 L 0.76 (0.7-1.0) mg/dL Glucose 166 H 97 (65-110) mg/dL Calcium 9.7 9.0 (8.4-10.2) mg/dL Adrenal panel 03/06/25 03/07/25 Range/Units 13:01 05:41 Sodium 127 L 132 L (137-145) mmol/L Potassium 4.5 4.0 (3.4-5.0) mmol/L Chloride 90 L 99 (98-107) mmol/L Carbon Dioxide 24 24 (22-30) mmol/L BUN 9 D 10 (7-17) mg/dL Creatinine 0.61 L 0.76 (0.7-1.0) mg/dL Glucose 166 H 97 (65-110) mg/dL Calcium 9.7 9.0 (8.4-10.2) mg/dL Total Bilirubin 1.4 H 1.6 H (0.2-1.3) mg/dL AST 35 61 H (14-36) U/L ALT 28 17 (6-35) U/L Alkaline Phosphatase 103 67 (38-126) U/L Total Protein 7.7 6.1 L (6.3-8.2) g/dL Albumin 4.6 3.6 (3.5-5.1) g/dL All other labs normal. Imaging Additional studies: ITS Impressions Abdomen/Pelvis CT 03/06/25 14:15 IMPRESSION: 1. Dilated small bowel loops suggestive of partial versus complete obstruction. 2. Other appearances are unchanged from previous examination.
[2025-03-07] MEDS: SODIUM CHLORIDE 0.9% IV 1,000 ML 100 ML IV CONT (14:47)
--- NOTE | 2025-03-07 14:48 | PC.NURSE ---
Patient out of her room for procedure from 1100 until 1430. Medications and fluids administered at 1445.
[2025-03-07] MEDS: FAMOTIDINE 20 MG/2 ML VIAL IV PUSH (22:12)
[2025-03-07] MEDS: MORPHINE SULFATE (*CRX) 2 MG/ML INJ IV PUSH (22:18)
[2025-03-08] MEDS: SODIUM CHLORIDE 0.9% IV 1,000 ML 100 ML IV CONT ×3 (01:56→14:26)
[2025-03-08] MEDS: MORPHINE SULFATE (*CRX) 2 MG/ML INJ IV PUSH ×3 (01:56→18:24)
[2025-03-08] MEDS: PIPERACILLN/TAZ 3.375GM/NS50ML 3.375 GM/50 ML BAG IVPB ×4 (03:46→20:58)
[2025-03-08] MEDS: ONDANSETRON INJ 4 MG/2 ML VIAL IV PUSH (04:33)
[2025-03-08] MEDS: LEVOTHYROXINE SODIUM INJ 100 MCG/5 ML VIAL 44 MCG IV PUSH (05:45)
[2025-03-08 05:52] LABS: Hematocrit 37.1 % (37.0-47.0); Hemoglobin 12.4 g/dL (12.0-15.0); Immature Granulocyte Percent A 0.6 % (0-0.5); Lymphocytes Absolute Auto 2.40 K/mm3 (0.9-3.2); Mean Corpuscular HGB Conc 33.4 g/dl (32-36); Mean Corpuscular Hemoglobin 31.9 pg (26-34); Mean Corpuscular Volume 95.4 fl (80-100); Nucleated Red Blood Cells Absolute Auto 0.000 K/mm3 (0.0-0.012); Nucleated Red Blood Cells Perc 0.0 % (0.0-0.2); Platelet Count Result 309 k/mm3 (150-375); Red Blood Count 3.89 M/mm3 (4.2-5.4); White Blood Count 14.8 K/mm3 (4.5-10.0)
[2025-03-08 06:00] VITALS: BP 151/69; PULSE 102; RESP 18; TEMP 36.5; O2SAT 98
[2025-03-08 06:01] LABS: INR 1.1; Prothrombin Time 14.2 Seconds (11.1-14.7)
[2025-03-08 06:11] LABS: Alanine Aminotransferase 18 U/L (6-35); Albumin Level 4.0 g/dL (3.5-5.1); Alkaline Phosphatase 69 U/L (38-126); Anion Gap 11 mmol/L (4-12); Aspartate Amino Transferase 29 U/L (14-36); Bilirubin,Total 1.8 mg/dL (0.2-1.3); Blood Urea Nitrogen 18 mg/dL (7-17); Calcium 9.1 mg/dL (8.4-10.2); Carbon Dioxide 24 mmol/L (22-30); Chloride 102 mmol/L (98-107); Estimated Glomerular Filt Rate > 60; Glucose 119 mg/dL (65-110); Potassium 3.8 mmol/L (3.4-5.0); Sodium 137 mmol/L (137-145); Total Protein 6.8 g/dL (6.3-8.2)
[2025-03-08 08:00] VITALS: PULSE 94; RESP 16; O2SAT 97
[2025-03-08] MEDS: FAMOTIDINE 20 MG/2 ML VIAL IV PUSH ×2 (09:31→20:58)
[2025-03-08] MEDS: MAG HYDROX/AL HYDROX/SIMETH 30 ML UDC FEED TUBE (09:31)
[2025-03-08] MEDS: MORPHINE SULFATE (*CRX) 4 MG/ML INJ IV PUSH ×2 (10:43→14:26)
--- NOTE | 2025-03-08 11:30 | PC.NURSE ---
NG tube found at 35 cm, chest x-ray showed tube displaced. Tube advanced to 60 cm, follow x-ray taken to verify placement.
--- NOTE | 2025-03-08 13:51 | PM.PNGS ---
Progress Note: A&P Assessment and Plan (1) SBO (small bowel obstruction): Code(s): K56.609 - Unspecified intestinal obstruction, unspecified as to partial versus complete obstruction Status: Acute Assessment and Plan: SBFT showed no contrast moving to the colon at 5 hours c/w a small bowel obstruction. She is still not having any signs of bowel function and has high NG output once the NG tube was repositioned this morning. Repeat KUB does show that the NG tube is likely in the duodenum, so I will have nursing pull the NG tube back to reposition and repeat the KUB. The patient has a high-grade small bowel obstruction likely related to adhesions that will need surgical management. This was discussed with the patient in detail. She was emotional about needing another surgery. She is refusing to have surgery today so that she can discuss this with her family. I discussed with the patient that putting off surgery comes with risks as well and that there is a risk of developing bowel ischemia and even perforation if surgery is put off. We also discussed that given her previous small bowel resection, she would be at risk for short bowel syndrome if she has bowel ischemia that requires a significant amount of her small bowel to be resected again. She understands and still wishes to hold off on surgery for today. She does not have any peritoneal signs at this time and her lactic acid is normal. Will continue NG tube decompression, bowel rest, and IV fluids. Continue IV Zosyn. Discussed with Dr. Moore. Will plan to try scheduling surgery tomorrow and follow along closely. (2) Leukocytosis: Code(s): D72.829 - Elevated white blood cell count, unspecified Status: Acute Assessment and Plan: WBC count came down yesterday to 12,000 and is back up to 14,000 today. Lactic acid level rechecked and normal. Continue to monitor. This is likely related to her bowel obstruction as mentioned above, see plan above. (3) Type 2 diabetes mellitus: Qualifiers: Diabetes mellitus manager long term care insulin use: without manager long term care use Diabetes mellitus complication status: without complication Qualified Code(s): E11.9 - Type 2 diabetes mellitus without complications Code(s): E11.9 - Type 2 diabetes mellitus without complications Status: Resolved Assessment and Plan: Controlled on last hgb A1C in September. Management per Hospitalist. (4) Chronic anticoagulation: Code(s): Z79.01 - assisted (current) use of anticoagulants Status: Chronic Assessment and Plan: Continue to hold Eliquis for surgery. (5) Paroxysmal A-fib: Code(s): I48.0 - Paroxysmal atrial fibrillation Status: Acute Assessment and Plan: Patient has a history of paroxysmal afib and was recently evaluated by Cardiology on 03/02/25. She has had recent complaints of palpitations and Cardiology put on a 30-day school bus monitor to assess for occurrence/frequency of afib and heart rate when in afib. Will have nursing call Dr. Peng's office to let them know she is in the hospital and will need this removed for surgery so that they can decide what to do with the monitor while she is hospitalized. (6) Carotid artery stenosis: Code(s): I65.29 - Occlusion and stenosis of unspecified carotid artery Status: Acute (7) Heart failure with preserved ejection fraction: Qualifiers: Heart failure chronicity: chronic Qualified Code(s): I50.32 - Chronic diastolic (congestive) heart failure Code(s): I50.30 - Unspecified diastolic (congestive) heart failure Status: Acute (8) Chronic, continuous use of opioids: Code(s): F11.90 - Opioid use, unspecified, uncomplicated Status: Acute Assessment and Plan: Chronic opioid use could make postoperative pain control difficult. Plan I have discussed the patient's case and plan of care with Dr. Moore. Subjective Subjective Date/Time Seen: 03/08/25 13:51 Patient reports: no flatus, no bowel movement and afebrile Interval history: Patient had SBFT yesterday and reports having abdominal pain through the night. Per nursing, she had no NG output overnight and when the day shift nurse evaluated the patient this morning, she found her NG tube was partially withdrawn. They readvanced her tube and repeated a KUB this am. She has had 600 cc out of her NG tube since it was readvanced (in about 1.5 hour time). Patient reports resolution in her abdominal pain once the NG was put back to suction and she feels less bloated. Still no flatus or BM since admission. Exam Const: General: comfortable and no acute distress Orientation/consciousness: patient oriented x3 GI: Inspection: non-distended and no visible herniation GI Palp: Yes Soft to palpation, Yes Tenderness to palpation present (GI) (mild epigastric tenderness), No Guarding due to palpation present (GI), Yes Hernia present (defect felt at the top of the midline incision) and No Rebound tenderness present Auscultation: absent bowel sounds Objective Data Vital Signs Vital Signs: Vital Signs - 24 hr 03/07/25 14:00 03/07/25 16:00 03/07/25 20:00 Temperature 96.7 F L 96.7 F L Pulse Rate 86 86 86 Respiratory Rate 18 18 18 Blood Pressure 159/64 H 159/64 H Pulse Oximetry 96 96 96 Oxygen Delivery Room Air Fraction of Inspired Oxygen 03/07/25 21:33 03/07/25 21:41 03/08/25 06:00 Temperature 98.9 F 97.7 F Pulse Rate 83 85 102 H Respiratory Rate 20 18 18 Blood Pressure 139/64 151/69 H Pulse Oximetry 93 97 98 Oxygen Delivery Room Air Fraction of Inspired Oxygen 21 Intake/Output Intake/Output: Intake & Output 03/05/25 03/06/25 03/07/25 03/08/25 23:59 23:59 23:59 23:59 Intake Total 2100 100 1433.3 Output Total 1070 1700 1000 Balance 1030 -1600 433.3 Meds/Results Medications: Active Medications Generic Name Dose Route Start Last Admin Trade Name Freq PRN Reason Stop Dose Admin Acetaminophen 650 mg 03/06/25 16:19 Acetaminophen 650 Mg Suppository RECTAL Q6H PRN Mild Pain (1-3) or Fever Al Hydrox/Mg Hydrox/Simethicone 30 ml 03/07/25 10:15 03/08/25 09:31 Mag Hydrox/Al Hydrox/Simeth 30 Ml Udc FEED TUBE 30 ml Q8H GINO Administration Dextrose 12.5 gm 03/06/25 16:19 Dextrose 50% 25 Gm/50 Ml Syringe IV PUSH PRN PRN Hypoglycemia Protocol Famotidine 20 mg 03/07/25 21:00 03/08/25 09:31 Famotidine 20 Mg/2 Ml Vial IV PUSH 20 mg Q12HR GINO Administration Glucagon 1 mg 03/06/25 16:19 Glucagon For Inj 1 Mg Vial IM PRN PRN Hypoglycemia Protocol Glucose 15 gm 03/06/25 16:19 Glucose Oral Gel 15 Gm Of Glucse In 37.5 Gm Tube PO PRN PRN Hypoglycemia Protocol Dextrose 1,000 mls @ 100 mls/hr 03/06/25 16:19 Dextrose 5% 1,000 Ml IVPB PRN PRN Hypoglycemia Protocol Sodium Chloride 1,000 mls @ 100 mls/hr 03/07/25 10:15 03/08/25 05:46 Normal Saline Iv IV CONT 100 mls/hr .Q10H GINO Administration Piperacillin/Tazobactam/Dextrose 3.375 gm in 50 mls @ 100 mls/hr 03/07/25 21:00 03/08/25 09:30 Zosyn 3.375 Gm/Ns 50 Ml IVPB 100 mls/hr Q6H GINO Administration Levothyroxine Sodium 44 mcg 03/08/25 06:30 03/08/25 05:45 Levothyroxine Sodium Inj 100 Mcg/5 Ml Vial IV PUSH 44 mcg DAILY@0630 GINO Administration Morphine Sulfate 2 mg 03/06/25 16:19 03/08/25 06:19 Morphine Sulfate (*Crx) 2 Mg/Ml Inj IV PUSH 2 mg Q4H PRN Administration Pain Rated 4-6 Morphine Sulfate 4 mg 03/06/25 16:19 03/08/25 10:43 Morphine Sulfate (*Crx) 4 Mg/Ml Inj IV PUSH 4 mg Q4H PRN Administration Pain Rated 7-10 Naloxone HCl 0.1 mg 03/06/25 16:20 Naloxone Hcl 0.4 Mg/Ml Vial IV PUSH Q5MIN PRN Sedation Ondansetron HCl 4 mg 03/08/25 04:20 03/08/25 04:33 Ondansetron Inj 4 Mg/2 Ml Vial IV PUSH 4 mg Q6H PRN Administration Nausea And Vomiting Radiology Results: ITS Impressions Abdomen/Pelvis CT 03/06/25 14:15 IMPRESSION: 1. Dilated small bowel loops suggestive of partial versus complete obstruction. 2. Other appearances are unchanged from previous examination. Small Bowel X-Ray 03/07/25 17:39 IMPRESSION: 1. Slow progression of contrast through several loops of dilated small bowel in the central abdomen with no contrast in colon by 5 hours consistent with a small bowel obstruction. 2. Small to moderate-sized sliding-type hiatal hernia with gastroesophageal reflux. Labs Labs: Laboratory Results - last 24 hr 03/07/25 03/08/25 03/08/25 18:00 05:41 08:03 WBC 14.8 H RBC 3.89 L Hgb 12.4 Hct 37.1 MCV 95.4 MCH 31.9 MCHC 33.4 RDW 13.0 Plt Count 309 MPV 9.0 Immature Gran % (Auto) 0.6 H Neut % (Auto) 77.1 H Lymph % (Auto) 16.2 L [place] % (Auto) 5.8 Eos % (Auto) 0.0 Baso % (Auto) 0.3 Lymph # (Auto) 2.40 [place] # (Auto) 0.9 H Eos # (Auto) 0.0 Baso # (Auto) 0.1 Abs Immat Gran (auto) 0.09 H Absolute Neuts (auto) 11.4 H Absolute Nucleated RBC 0.000 Nucleated RBC % 0.0 PT 14.2 INR 1.1 Sodium 137 Potassium 3.8 Chloride 102 Carbon Dioxide 24 Anion Gap 11 BUN 18 H Creatinine 0.83 Estim Creat Clear Calc Not Reportable Estimated GFR > 60 Glucose 119 H POC Capillary Glucose 120 H 126 H Lactic Acid 1.1 Calcium 9.1 Total Bilirubin 1.8 H AST 29 ALT 18 Alkaline Phosphatase 69 Total Protein 6.8 Albumin 4.0 Blood Type O Positive Antibody Screen Negative 03/08/25 12:14 WBC RBC Hgb Hct MCV MCH MCHC RDW Plt Count MPV Immature Gran % (Auto) Neut % (Auto) Lymph % (Auto) [place] % (Auto) Eos % (Auto) Baso % (Auto) Lymph # (Auto) [place] # (Auto) Eos # (Auto) Baso # (Auto) Abs Immat Gran (auto) Absolute Neuts (auto) Absolute Nucleated RBC Nucleated RBC % PT INR Sodium Potassium Chloride Carbon Dioxide Anion Gap BUN Creatinine Estim Creat Clear Calc Estimated GFR Glucose POC Capillary Glucose 129 H Lactic Acid Calcium Total Bilirubin AST ALT Alkaline Phosphatase Total Protein Albumin Blood Type Antibody Screen
[2025-03-08 14:00] VITALS: BP 150/60; PULSE 94; RESP 16; TEMP 37.2; O2SAT 97
--- NOTE | 2025-03-08 14:21 | P.PNIM_ITS ---
Progress Note: A&P Assessment and Plan (1) SBO (small bowel obstruction): Code(s): K56.609 - Unspecified intestinal obstruction, unspecified as to partial versus complete obstruction Status: Acute Assessment and Plan: * CT abdomen/pelvis: * Dilated small bowel loops suggestive of partial versus complete obstruction. * Other appearances are unchanged from previous examination. * bowel rest, NPO. NG place in ED, confirmation via XR * IV fluids: 2L bolus, will hold on further fluids as the patient has history of heart failure with preserved EF * started on Zosyn on 03/06, continued * analgesics p.r.n. * Leukocytosis improving, WBC down from 18.4-12.5 on 03/07 * general surgery consulted * appreciate further recommendations * Water-soluble small-bowel follow-through series today * IV fluid hydration while NPO * Surgical management not rule out at this time, continue to hold Eliquis * Maintain antibiotics, IV fluid hydration, hold Eliquis * Small-bowel follow-through series * no contrast moving to the colon at 5 hours c/w a small bowel obstruction * To undergo surgery tomorrow (2) Elevated lactic acid level: Code(s): R79.89 - Other specified abnormal findings of blood chemistry Status: Acute Assessment and Plan: * lactic 2.5 -> 2.8, trend down. check procalcitonin -> <0.0. * WBC 18.4, trend * vital signs did not meet SIRS/sepsis criteria * CT of the abdomen/pelvis showed no concerning findings beyond the partial/complete obstruction * check UA -> unremarkable * presume elevated lactic secondary to dehydration * 03/08, 1.1 (3) Chronic hyponatremia: Code(s): E87.1 - Hypo-osmolality and hyponatremia Status: Chronic Assessment and Plan: * Na 127, previously 126 on 02/28 * history chronic hyponatremia, present since 2019 * monitor * 03/08: Sodium 137 (4) FARTUN (iron deficiency anemia): Qualifiers: Iron deficiency anemia type: chronic blood loss Qualified Code(s): D50.0 - Iron deficiency anemia secondary to blood loss (chronic) Code(s): D50.9 - Iron deficiency anemia, unspecified Status: Chronic Assessment and Plan: * Hgb 13.7 * Hx: FARTUN * transfuse if <7 * trend * 03/08: Hgb 12.4 (5) Type 2 diabetes mellitus: Qualifiers: Diabetes mellitus termite treater insulin use: without termite treater use Diabetes mellitus complication status: without complication Qualified Code(s): E11.9 - Type 2 diabetes mellitus without complications Code(s): E11.9 - Type 2 diabetes mellitus without complications Status: Resolved Assessment and Plan: * hypoglycemia protocol and POC blood glucose Q6H until no longer NPO * history of diabetes, resolved. No longer on medications. * A1C 5.5% on 10/08/2024 (6) Atrial fibrillation: Qualifiers: Atrial fibrillation type: paroxysmal Qualified Code(s): I48.0 - Paroxysmal atrial fibrillation Code(s): I48.91 - Unspecified atrial fibrillation Status: Chronic Assessment and Plan: * history of paroxysmal AFib * EKG, initial, 03/06: sinus rhythm, rate 74, LVH, cannot rule out septal infarct age indeterminate, minimal Q-waves high lateral leads. No significant change compared to EKG done on 02/25. * continue home medications (7) Hypertension: Qualifiers: Hypertension type: primary hypertension Qualified Code(s): I10 - Essential (primary) hypertension Code(s): I10 - Essential (primary) hypertension Status: Chronic Assessment and Plan: * chronic, currently 153/57 * continue home medications * monitor Plan Diet: NPO GI Prophylaxis: Pantoprazole DVT Prophylaxis: SCDs, Eliquis IV fluids: 2L bolus, no further fluids due to history of HFpEF Lines/Tubes: Peripheral IV, NG tube Code Status: Full code Subjective Date/time seen: 03/08/25 14:21 Interval history: 80 y/o F with PMH of chronic hyponatremia, CAD, DVT, anxiety/depression, HF with preserved EF, HLD, HTN, hypothyroidism, IBS, ELVIRA noncompliant with CPAP, paroxysmal AFib, rheumatoid arthritis, and diabetes presents here with nausea and vomiting. 03/08/2025 Patient sitting comfortably in bed at time of exam. Reports abdominal pain has otherwise subsided. Denies nausea/vomiting/diarrhea. Repeat KUB showed NG in duodenum, surg to have nursing staff pull NG back to reposition and repeat KUB. Plan for surgery tomorrow. WBC did increase back up to 14,000, up from [id number]. Repeat Lactic normal. No other complaints or concerns. Review of Systems Review of Systems: All systems reviewed & are unremarkable except as noted in HPI and below Exam Const: General: no acute distress and uncomfortable Other: , female, elderly, diffuse discomfort HENMT: Face/Nose/Sinus: Normal nares present Mouth: Yes moist mucous membranes Other: NG in place to right nare Eyes: General: appearance normal, both eyes and all related structures Sclera: sclerae normal Pupils: Equal, round and reactive pupils present EOM: EOMs intact bilaterally Resp: Effort & Inspection: normal respiratory effort Auscultation: clear to auscultation bilaterally Cardio: Rate: regular rate Rhythm: regular rhythm Other: S1-S2 present without murmur, rub, ectopy GI: Other: Hyperactive bowel sounds in all quadrants, mild tenderness that is diffuse, abdomen soft Skin: General skin exam: normal color and no rashes or lesions noted Wounds: no wounds Neuro: Cranial nerves: Yes Equal, round and reactive pupils present Speech: normal speech Motor exam (neuro): 5/5 motor strength present throughout Sensory Exam: normal sensation Other: A&O x4 Extrem: General: normal to inspection Psych: Mental Status: mental status grossly normal Affect: Anxious affect present Other: Patient tearful, restless, fair insight and judgment. Objective Data Vital Signs Vital Signs: Vital Signs - 24 hr 03/07/25 16:00 03/07/25 20:00 03/07/25 21:33 Temperature 96.7 F L Pulse Rate 86 86 83 Respiratory Rate 18 18 20 Blood Pressure 159/64 H Pulse Oximetry 96 96 93 Oxygen Delivery Room Air Room Air Fraction of Inspired Oxygen 21 03/07/25 21:41 03/08/25 06:00 Temperature 98.9 F 97.7 F Pulse Rate 85 102 H Respiratory Rate 18 18 Blood Pressure 139/64 151/69 H Pulse Oximetry 97 98 Oxygen Delivery Fraction of Inspired Oxygen Intake/Output Intake/Output: Intake & Output 03/05/25 03/06/25 03/07/25 03/08/25 23:59 23:59 23:59 23:59 Intake Total 2100 100 1433.3 Output Total 1070 1700 1000 Balance 1030 -1600 433.3 Meds/Results Medications: Active Medications Generic Name Dose Route Start Last Admin Trade Name Freq PRN Reason Stop Dose Admin Acetaminophen 650 mg 03/06/25 16:19 Acetaminophen 650 Mg Suppository RECTAL Q6H PRN Mild Pain (1-3) or Fever Al Hydrox/Mg Hydrox/Simethicone 30 ml 03/07/25 10:15 03/08/25 09:31 Mag Hydrox/Al Hydrox/Simeth 30 Ml Udc FEED TUBE 30 ml Q8H GINO Administration Dextrose 12.5 gm 03/06/25 16:19 Dextrose 50% 25 Gm/50 Ml Syringe IV PUSH PRN PRN Hypoglycemia Protocol Famotidine 20 mg 03/07/25 21:00 03/08/25 09:31 Famotidine 20 Mg/2 Ml Vial IV PUSH 20 mg Q12HR GINO Administration Glucagon 1 mg 03/06/25 16:19 Glucagon For Inj 1 Mg Vial IM PRN PRN Hypoglycemia Protocol Glucose 15 gm 03/06/25 16:19 Glucose Oral Gel 15 Gm Of Glucse In 37.5 Gm Tube PO PRN PRN Hypoglycemia Protocol Dextrose 1,000 mls @ 100 mls/hr 03/06/25 16:19 Dextrose 5% 1,000 Ml IVPB PRN PRN Hypoglycemia Protocol Sodium Chloride 1,000 mls @ 100 mls/hr 03/07/25 10:15 03/08/25 05:46 Normal Saline Iv IV CONT 100 mls/hr .Q10H GINO Administration Piperacillin/Tazobactam/Dextrose 3.375 gm in 50 mls @ 100 mls/hr 03/07/25 21:00 03/08/25 09:30 Zosyn 3.375 Gm/Ns 50 Ml IVPB 100 mls/hr Q6H GINO Administration Levothyroxine Sodium 44 mcg 03/08/25 06:30 03/08/25 05:45 Levothyroxine Sodium Inj 100 Mcg/5 Ml Vial IV PUSH 44 mcg DAILY@0630 GINO Administration Morphine Sulfate 2 mg 03/06/25 16:19 03/08/25 06:19 Morphine Sulfate (*Crx) 2 Mg/Ml Inj IV PUSH 2 mg Q4H PRN Administration Pain Rated 4-6 Morphine Sulfate 4 mg 03/06/25 16:19 03/08/25 10:43 Morphine Sulfate (*Crx) 4 Mg/Ml Inj IV PUSH 4 mg Q4H PRN Administration Pain Rated 7-10 Naloxone HCl 0.1 mg 03/06/25 16:20 Naloxone Hcl 0.4 Mg/Ml Vial IV PUSH Q5MIN PRN Sedation Ondansetron HCl 4 mg 03/08/25 04:20 03/08/25 04:33 Ondansetron Inj 4 Mg/2 Ml Vial IV PUSH 4 mg Q6H PRN Administration Nausea And Vomiting Radiology Results: ITS Impressions Abdomen/Pelvis CT 03/06/25 14:15 IMPRESSION: 1. Dilated small bowel loops suggestive of partial versus complete obstruction. 2. Other appearances are unchanged from previous examination. Small Bowel X-Ray 03/07/25 17:39 IMPRESSION: 1. Slow progression of contrast through several loops of dilated small bowel in the central abdomen with no contrast in colon by 5 hours consistent with a small bowel obstruction. 2. Small to moderate-sized sliding-type hiatal hernia with gastroesophageal reflux. Labs Labs: Laboratory Results - last 24 hr 03/07/25 03/08/25 03/08/25 18:00 05:41 08:03 WBC 14.8 H RBC 3.89 L Hgb 12.4 Hct 37.1 MCV 95.4 MCH 31.9 MCHC 33.4 RDW 13.0 Plt Count 309 MPV 9.0 Immature Gran % (Auto) 0.6 H Neut % (Auto) 77.1 H Lymph % (Auto) 16.2 L [place] % (Auto) 5.8 Eos % (Auto) 0.0 Baso % (Auto) 0.3 Lymph # (Auto) 2.40 [place] # (Auto) 0.9 H Eos # (Auto) 0.0 Baso # (Auto) 0.1 Abs Immat Gran (auto) 0.09 H Absolute Neuts (auto) 11.4 H Absolute Nucleated RBC 0.000 Nucleated RBC % 0.0 PT 14.2 INR 1.1 Sodium 137 Potassium 3.8 Chloride 102 Carbon Dioxide 24 Anion Gap 11 BUN 18 H Creatinine 0.83 Estim Creat Clear Calc Not Reportable Estimated GFR > 60 Glucose 119 H POC Capillary Glucose 120 H 126 H Lactic Acid 1.1 Calcium 9.1 Total Bilirubin 1.8 H AST 29 ALT 18 Alkaline Phosphatase 69 Total Protein 6.8 Albumin 4.0 Blood Type O Positive Antibody Screen Negative 03/08/25 12:14 WBC RBC Hgb Hct MCV MCH MCHC RDW Plt Count MPV Immature Gran % (Auto) Neut % (Auto) Lymph % (Auto) [place] % (Auto) Eos % (Auto) Baso % (Auto) Lymph # (Auto) [place] # (Auto) Eos # (Auto) Baso # (Auto) Abs Immat Gran (auto) Absolute Neuts (auto) Absolute Nucleated RBC Nucleated RBC % PT INR Sodium Potassium Chloride Carbon Dioxide Anion Gap BUN Creatinine Estim Creat Clear Calc Estimated GFR Glucose POC Capillary Glucose 129 H Lactic Acid Calcium Total Bilirubin AST ALT Alkaline Phosphatase Total Protein Albumin Blood Type Antibody Screen Quality VTE Prophylaxis VTE prophylaxis: mechanical ordered
[2025-03-08 20:22] VITALS: BP 151/67; PULSE 81; RESP 18; TEMP 36.4; O2SAT 97
[2025-03-09] VITALS (12 sets, daily range): BP systolic 132–189; BP diastolic 56–85; PULSE 75–97; RESP 14–18; TEMP 36.5–37.9; O2SAT 96–100
[2025-03-09] MEDS: MORPHINE SULFATE (*CRX) 4 MG/ML INJ IV PUSH ×3 (00:25→08:32)
[2025-03-09] MEDS: SODIUM CHLORIDE 0.9% IV 1,000 ML 100 ML IV CONT ×2 (01:21→18:26)
[2025-03-09] MEDS: PIPERACILLN/TAZ 3.375GM/NS50ML 3.375 GM/50 ML BAG IVPB ×3 (03:41→14:15)
[2025-03-09] MEDS: MAG HYDROX/AL HYDROX/SIMETH 30 ML UDC FEED TUBE ×2 (04:38→18:14)
[2025-03-09] MEDS: LEVOTHYROXINE SODIUM INJ 100 MCG/5 ML VIAL 44 MCG IV PUSH (05:30)
[2025-03-09 06:55] LABS: Hematocrit 35.2 % (37.0-47.0); Hemoglobin 11.7 g/dL (12.0-15.0); Immature Granulocyte Percent A 0.5 % (0-0.5); Lymphocytes Absolute Auto 2.60 K/mm3 (0.9-3.2); Mean Corpuscular HGB Conc 33.2 g/dl (32-36); Mean Corpuscular Hemoglobin 32.4 pg (26-34); Mean Corpuscular Volume 97.5 fl (80-100); Nucleated Red Blood Cells Absolute Auto 0.000 K/mm3 (0.0-0.012); Nucleated Red Blood Cells Perc 0.0 % (0.0-0.2); Platelet Count Result 270 k/mm3 (150-375); Red Blood Count 3.61 M/mm3 (4.2-5.4); White Blood Count 11.6 K/mm3 (4.5-10.0)
[2025-03-09 07:15] LABS: Alanine Aminotransferase 14 U/L (6-35); Albumin Level 3.6 g/dL (3.5-5.1); Alkaline Phosphatase 57 U/L (38-126); Anion Gap 10 mmol/L (4-12); Aspartate Amino Transferase 25 U/L (14-36); Bilirubin,Total 1.8 mg/dL (0.2-1.3); Blood Urea Nitrogen 19 mg/dL (7-17); Calcium 8.9 mg/dL (8.4-10.2); Carbon Dioxide 23 mmol/L (22-30); Chloride 102 mmol/L (98-107); Estimated Glomerular Filt Rate > 60; Glucose 75 mg/dL (65-110); Potassium 3.7 mmol/L (3.4-5.0); Sodium 135 mmol/L (137-145); Total Protein 6.3 g/dL (6.3-8.2)
[2025-03-09] MEDS: FAMOTIDINE 20 MG/2 ML VIAL IV PUSH ×2 (08:33→20:27)
--- NOTE | 2025-03-09 10:34 | P.PNIM_ITS ---
Progress Note: A&P Assessment and Plan (1) SBO (small bowel obstruction): Code(s): K56.609 - Unspecified intestinal obstruction, unspecified as to partial versus complete obstruction Status: Acute Assessment and Plan: * CT abdomen/pelvis: * Dilated small bowel loops suggestive of partial versus complete obstruction. * Other appearances are unchanged from previous examination. * bowel rest, NPO. NG place in ED, confirmation via XR * IV fluids: 2L bolus, will hold on further fluids as the patient has history of heart failure with preserved EF * started on Zosyn on 03/06, continued * analgesics p.r.n. * Leukocytosis improving, WBC down from 18.4-12.5 on 03/07 * general surgery consulted * appreciate further recommendations * Water-soluble small-bowel follow-through series today * IV fluid hydration while NPO * Surgical management not rule out at this time, continue to hold Eliquis * Maintain antibiotics, IV fluid hydration, hold Eliquis * Small-bowel follow-through series * no contrast moving to the colon at 5 hours c/w a small bowel obstruction * 03/09: Exploratory laparotomy, possible small bowel resection @ 1400 (2) Elevated lactic acid level: Code(s): R79.89 - Other specified abnormal findings of blood chemistry Status: Acute Assessment and Plan: * lactic 2.5 -> 2.8, trend down. check procalcitonin -> <0.0. * WBC 18.4, trend * vital signs did not meet SIRS/sepsis criteria * CT of the abdomen/pelvis showed no concerning findings beyond the parti al/complete obstruction * check UA -> unremarkable * presume elevated lactic secondary to dehydration * 03/08, 1.1 * Resolved (3) Chronic hyponatremia: Code(s): E87.1 - Hypo-osmolality and hyponatremia Status: Chronic Assessment and Plan: * Na 127, previously 126 on 02/28 * history chronic hyponatremia, present since 2019 * monitor * 03/09: Sodium 135 (4) FARTUN (iron deficiency anemia): Qualifiers: Iron deficiency anemia type: chronic blood loss Qualified Code(s): D50.0 - Iron deficiency anemia secondary to blood loss (chronic) Code(s): D50.9 - Iron deficiency anemia, unspecified Status: Chronic Assessment and Plan: * Hgb 13.7 * Hx: FARTUN * transfuse if <7 * trend * 03/09: Hgb 11.7 (5) Type 2 diabetes mellitus: Qualifiers: Diabetes mellitus complication status: without complication Diabetes mellitus intermediate insulin use: without intermediate use Qualified Code(s): E11.9 - Type 2 diabetes mellitus without complications Code(s): E11.9 - Type 2 diabetes mellitus without complications Status: Resolved Assessment and Plan: * hypoglycemia protocol and POC blood glucose Q6H until no longer NPO * history of diabetes, resolved. No longer on medications. * A1C 5.5% on 10/08/2024 (6) Atrial fibrillation: Qualifiers: Atrial fibrillation type: paroxysmal Qualified Code(s): I48.0 - Paroxysmal atrial fibrillation Code(s): I48.91 - Unspecified atrial fibrillation Status: Chronic Assessment and Plan: * history of paroxysmal AFib * EKG, initial, 03/06: sinus rhythm, rate 74, LVH, cannot rule out septal infarct age indeterminate, minimal Q-waves high lateral leads. No significant change compared to EKG done on 02/25. * continue home medications (7) Hypertension: Qualifiers: Hypertension type: primary hypertension Qualified Code(s): I10 - Essential (primary) hypertension Code(s): I10 - Essential (primary) hypertension Status: Chronic Assessment and Plan: * chronic, currently 153/57 * continue home medications * monitor Plan Diet: NPO GI Prophylaxis: Pantoprazole DVT Prophylaxis: SCDs, Eliquis IV fluids: 2L bolus, no further fluids due to history of HFpEF Lines/Tubes: Peripheral IV, NG tube Code Status: Full code Subjective Date/time seen: 03/09/25 10:34 Interval history: 80 y/o F with PMH of chronic hyponatremia, CAD, DVT, anxiety/depression, HF with preserved EF, HLD, HTN, hypothyroidism, IBS, ELVIRA noncompliant with CPAP, paroxysmal AFib, rheumatoid arthritis, and diabetes presents here with nausea and vomiting. 03/09/2025 Patient sitting comfortably in bed at time of exam. General surgery to proceed with exploratory laparotomy today for SBO, tentatively scheduled for 1400. Continue NPO, IV antibiotics. Pt otherwise has no complaints in the am. General Surg to continue following post procedure. Review of Systems Review of Systems: All systems reviewed & are unremarkable except as noted in HPI and below Exam Const: General: no acute distress and uncomfortable Other: , female, elderly, diffuse discomfort HENMT: Face/Nose/Sinus: Normal nares present Mouth: Yes moist mucous membranes Other: NG in place to right nare Eyes: General: appearance normal, both eyes and all related structures Sclera: sclerae normal Pupils: Equal, round and reactive pupils present EOM: EOMs intact bilaterally Resp: Effort & Inspection: normal respiratory effort Auscultation: clear to auscultation bilaterally Cardio: Rate: regular rate Rhythm: regular rhythm Other: S1-S2 present without murmur, rub, ectopy GI: Other: Hyperactive bowel sounds in all quadrants, mild tenderness that is diffuse, abdomen soft Skin: General skin exam: normal color and no rashes or lesions noted Wounds: no wounds Neuro: Cranial nerves: Yes Equal, round and reactive pupils present Speech: normal speech Motor exam (neuro): 5/5 motor strength present throughout Sensory Exam: normal sensation Other: A&O x4 Extrem: General: normal to inspection Psych: Mental Status: mental status grossly normal Affect: Anxious affect present Other: Patient tearful, restless, fair insight and judgment. Objective Data Vital Signs Vital Signs: Vital Signs - 24 hr 03/08/25 14:00 03/08/25 20:00 03/08/25 20:22 Temperature 98.9 F 97.5 F L Pulse Rate 94 81 Respiratory Rate 16 18 Blood Pressure 150/60 H 151/67 H Pulse Oximetry 97 97 Oxygen Delivery Room Air 03/09/25 04:35 03/09/25 08:25 Temperature 98.1 F Pulse Rate 75 Respiratory Rate 18 Blood Pressure 163/85 H Pulse Oximetry 97 Oxygen Delivery Room Air Intake/Output Intake/Output: Intake & Output 03/06/25 03/07/25 03/08/25 03/09/25 23:59 23:59 23:59 23:59 Intake Total 2100 100 2450.0 1200 Output Total 1070 1700 2950 400 Balance 1030 -1600 -500.0 800 Meds/Results Medications: Active Medications Generic Name Dose Route Start Last Admin Trade Name Freq PRN Reason Stop Dose Admin Acetaminophen 650 mg 03/06/25 16:19 Acetaminophen 650 Mg Suppository RECTAL Q6H PRN Mild Pain (1-3) or Fever Al Hydrox/Mg Hydrox/Simethicone 30 ml 03/07/25 10:15 03/09/25 04:38 Mag Hydrox/Al Hydrox/Simeth 30 Ml Udc FEED TUBE 30 ml Q8H GINO Administration Dextrose 12.5 gm 03/06/25 16:19 Dextrose 50% 25 Gm/50 Ml Syringe IV PUSH PRN PRN Hypoglycemia Protocol Famotidine 20 mg 03/07/25 21:00 03/09/25 08:33 Famotidine 20 Mg/2 Ml Vial IV PUSH 20 mg Q12HR GINO Administration Glucagon 1 mg 03/06/25 16:19 Glucagon For Inj 1 Mg Vial IM PRN PRN Hypoglycemia Protocol Glucose 15 gm 03/06/25 16:19 Glucose Oral Gel 15 Gm Of Glucse In 37.5 Gm Tube PO PRN PRN Hypoglycemia Protocol Dextrose 1,000 mls @ 100 mls/hr 03/06/25 16:19 Dextrose 5% 1,000 Ml IVPB PRN PRN Hypoglycemia Protocol Sodium Chloride 1,000 mls @ 100 mls/hr 03/07/25 10:15 03/09/25 01:21 Normal Saline Iv IV CONT 100 mls/hr .Q10H GINO Administration Piperacillin/Tazobactam/Dextrose 3.375 gm in 50 mls @ 100 mls/hr 03/07/25 21:00 03/09/25 08:33 Zosyn 3.375 Gm/Ns 50 Ml IVPB 100 mls/hr Q6H GINO Administration Levothyroxine Sodium 44 mcg 03/08/25 06:30 03/09/25 05:30 Levothyroxine Sodium Inj 100 Mcg/5 Ml Vial IV PUSH 44 mcg DAILY@0630 GINO Administration Morphine Sulfate 2 mg 03/06/25 16:19 03/08/25 18:24 Morphine Sulfate (*Crx) 2 Mg/Ml Inj IV PUSH 2 mg Q4H PRN Administration Pain Rated 4-6 Morphine Sulfate 4 mg 03/06/25 16:19 03/09/25 08:32 Morphine Sulfate (*Crx) 4 Mg/Ml Inj IV PUSH 4 mg Q4H PRN Administration Pain Rated 7-10 Naloxone HCl 0.1 mg 03/06/25 16:20 Naloxone Hcl 0.4 Mg/Ml Vial IV PUSH Q5MIN PRN Sedation Ondansetron HCl 4 mg 03/08/25 04:20 03/08/25 04:33 Ondansetron Inj 4 Mg/2 Ml Vial IV PUSH 4 mg Q6H PRN Administration Nausea And Vomiting Radiology Results: ITS Impressions Abdomen/Pelvis CT 03/06/25 14:15 IMPRESSION: 1. Dilated small bowel loops suggestive of partial versus complete obstruction. 2. Other appearances are unchanged from previous examination. Small Bowel X-Ray 03/07/25 17:39 IMPRESSION: 1. Slow progression of contrast through several loops of dilated small bowel in the central abdomen with no contrast in colon by 5 hours consistent with a small bowel obstruction. 2. Small to moderate-sized sliding-type hiatal hernia with gastroesophageal reflux. Abdomen X-Ray 03/08/25 15:13 IMPRESSION: 1. Nasogastric tube in expected position with distal tip at the gastric antrum. Labs Labs: Laboratory Results - last 24 hr 03/08/25 03/09/25 03/09/25 12:14 00:20 06:29 WBC 11.6 H RBC 3.61 L Hgb 11.7 L Hct 35.2 L MCV 97.5 MCH 32.4 MCHC 33.2 RDW 12.5 Plt Count 270 MPV 9.3 Immature Gran % (Auto) 0.5 Neut % (Auto) 71.4 Lymph % (Auto) 22.5 [place] % (Auto) 4.9 Eos % (Auto) 0.2 Baso % (Auto) 0.5 Lymph # (Auto) 2.60 [place] # (Auto) 0.6 Eos # (Auto) 0.0 Baso # (Auto) 0.1 Abs Immat Gran (auto) 0.06 H Absolute Neuts (auto) 8.3 H Absolute Nucleated RBC 0.000 Nucleated RBC % 0.0 Sodium 135 L Potassium 3.7 Chloride 102 Carbon Dioxide 23 Anion Gap 10 BUN 19 H Creatinine 0.73 Estim Creat Clear Calc Not Reportable Estimated GFR > 60 Glucose 75 POC Capillary Glucose 129 H 82 Calcium 8.9 Total Bilirubin 1.8 H AST 25 ALT 14 Alkaline Phosphatase 57 Total Protein 6.3 Albumin 3.6 03/09/25 06:43 WBC RBC Hgb Hct MCV MCH MCHC RDW Plt Count MPV Immature Gran % (Auto) Neut % (Auto) Lymph % (Auto) [place] % (Auto) Eos % (Auto) Baso % (Auto) Lymph # (Auto) [place] # (Auto) Eos # (Auto) Baso # (Auto) Abs Immat Gran (auto) Absolute Neuts (auto) Absolute Nucleated RBC Nucleated RBC % Sodium Potassium Chloride Carbon Dioxide Anion Gap BUN Creatinine Estim Creat Clear Calc Estimated GFR Glucose POC Capillary Glucose 75 Calcium Total Bilirubin AST ALT Alkaline Phosphatase Total Protein Albumin Quality VTE Prophylaxis VTE prophylaxis: mechanical ordered
[2025-03-09] MEDS: DEXTROSE 50% 25 GM/50 ML SYRINGE IV PUSH (13:11)
--- NOTE | 2025-03-09 13:48 | WPDANESEPPF ---
Anes - Initial Pre Proc Eval Procedure: Operation Date: 03/09/25 14:00 Proposed Procedures p Exploratory Laparotomy, Possible Small Bowel Resection - Rosendo Moore MD Date/Time: 03/09/25 13:48 Surgeon: Wily Navarro MD Pre Op Diagnosis: SBO Patient Data Age: 80 Gender: F Height: 1.5 m Weight: 56.9 kg Last Vital Signs Temp 36.7 C 03/09/25 04:35 Pulse 75 03/09/25 04:35 Resp 18 03/09/25 04:35 BP 163/85 H 03/09/25 04:35 Pulse Ox 97 03/09/25 04:35 O2 Del Method Room Air 03/09/25 08:25 FiO2 21 03/07/25 21:33 Allergies Allergy/AdvReac Type Severity Reaction Status Date / Time No Known Allergies Allergy Verified 03/06/25 11:53 Home Medications ?Medication ?Instructions ?Recorded ?Confirmed ?Type aspirin 81 mg tablet,delayed 81 mg PO DAILY 07/29/19 03/06/25 History release (Adult Low Dose Aspirin) ezetimibe 10 mg tablet 10 mg PO QHS 03/15/23 03/06/25 History folic acid 1 mg tablet 3 mg PO DAILY 03/15/23 03/06/25 History albuterol sulfate 90 mcg/actuation 2 puff inhalation QID PRN 06/22/23 03/06/25 History aerosol inhaler Shortness Of Breath Or Wheezing oxycodone-acetaminophen 10 mg-325 1 tablet PO Q6H PRN Pain (Scale 10/28/23 03/06/25 Rx mg tablet Score 4-6) #1 tablet cyanocobalamin (vitamin B-12) 1,000 mcg PO QAM #90 tabs 12/18/23 03/06/25 Rx 1,000 mcg tablet (Vitamin B-12) atorvastatin 40 mg tablet 40 mg PO QHS #90 tabs 02/04/24 03/06/25 Rx pantoprazole 40 mg tablet,delayed 40 mg PO DAILY #30 tabs 05/28/24 03/06/25 Rx release apixaban 2.5 mg tablet (Eliquis) 2.5 mg PO Q12HR #60 tabs 06/10/24 03/06/25 Rx polyethylene glycol 3350 17 gram 17 g PO QAM PRN Constipation #30 ea 06/10/24 03/06/25 Rx oral powder packet (Miralax) acetaminophen 500 mg capsule 1,000 mg (2 x 500 mg) PO Q6H PRN 07/25/24 03/06/25 Rx pain #30 caps guanfacine 1 mg tablet 1 mg PO HS 10/07/24 03/06/25 History hydralazine 25 mg tablet 50 mg PO TID 10/07/24 03/06/25 History magnesium oxide 400 mg (241.3 mg 400 mg PO QAM #90 tabs 11/25/24 03/06/25 Rx magnesium) tablet losartan 100 mg tablet 100 mg PO DAILY #90 tabs 12/09/24 03/06/25 Rx linaclotide 290 mcg capsule 290 mcg PO QAM #90 caps 02/23/25 03/06/25 Rx (Linzess) amiloride 5 mg tablet 5 mg PO QAM 02/26/25 03/06/25 History buspirone 10 mg tablet 10 mg PO QAM AND QHS 02/26/25 03/06/25 History ferrous sulfate 325 mg (65 mg 325 mg PO QHS 02/26/25 03/06/25 History iron) tablet,delayed release fluticasone propionate 50 1 spray intranasal BID PRN allergy 02/26/25 03/06/25 History mcg/actuation nasal symptoms spray,suspension (Flonase Allergy Relief) ondansetron 4 mg disintegrating 4 mg PO Q6H PRN nausea and vomiting 02/26/25 03/06/25 History tablet simethicone 80 mg chewable tablet 160 mg PO QID PRN gas 02/26/25 03/06/25 History sodium chloride 1,000 mg soluble 1,000 mg PO TID 02/26/25 03/06/25 History tablet meclizine 25 mg tablet 25 mg PO BID PRN Vertigo #60 tabs 02/28/25 03/06/25 Rx albuterol sulfate 90 mcg/actuation 2 inh inhalation Q6H PRN shortness 03/06/25 03/06/25 History breath activated powder inhaler of breath or wheezing (ProAir RespiClick) amlodipine 5 mg tablet 5 mg PO DAILY 03/06/25 03/06/25 History bisacodyl 5 mg tablet,delayed 5 mg PO DAILY 03/06/25 03/06/25 History release levothyroxine 88 mcg tablet 88 mcg PO DAILY 03/06/25 03/06/25 History montelukast 10 mg tablet 10 mg PO DAILY 03/06/25 03/06/25 History nitrofurantoin 100 mg PO BID 03/06/25 03/06/25 History monohydrate/macrocrystals 100 mg capsule nitroglycerin 0.4 mg sublingual 0.4 mg sublingual PRN chest pain 03/06/25 03/06/25 History tablet Laboratory Tests 03/09/25 03/09/25 03/09/25 00:20 06:29 06:43 WBC 11.6 H K/mm3 (4.5-10.0) RBC 3.61 L M/mm3 (4.2-5.4) Hgb 11.7 L g/dL (12.0-15.0) Hct 35.2 L % (37.0-47.0) MCV 97.5 fl (80-100) MCH 32.4 pg (26-34) MCHC 33.2 g/dl (32-36) RDW 12.5 % (11.5-14.5) Plt Count 270 k/mm3 (150-375) MPV 9.3 fl (7.4-10.4) Immature Gran % (Auto) 0.5 % (0-0.5) Neut % (Auto) 71.4 % (45.5-73.1) Lymph % (Auto) 22.5 % (18.3-44.2) [place] % (Auto) 4.9 % (2.6-8.5) Eos % (Auto) 0.2 % (0-4.4) Baso % (Auto) 0.5 % (0.2-1.2) Lymph # (Auto) 2.60 K/mm3 (0.9-3.2) [place] # (Auto) 0.6 K/mm3 (0.1-0.6) Eos # (Auto) 0.0 K/mm3 (0-0.3) Baso # (Auto) 0.1 K/mm3 (0.0-0.1) Abs Immat Gran (auto) 0.06 H K/mm3 (0.00-0.031) Absolute Neuts (auto) 8.3 H K/mm3 (1.3-6.7) Absolute Nucleated RBC 0.000 K/mm3 (0.0-0.012) Nucleated RBC % 0.0 % (0.0-0.2) Sodium 135 L mmol/L (137-145) Potassium 3.7 mmol/L (3.4-5.0) Chloride 102 mmol/L (98-107) Carbon Dioxide 23 mmol/L (22-30) Anion Gap 10 mmol/L (4-12) BUN 19 H mg/dL (7-17) Creatinine 0.73 mg/dL (0.7-1.0) Estim Creat Clear Calc Not Reportable Estimated GFR > 60 (59 - ) Glucose 75 mg/dL (65-110) POC Capillary Glucose 82 mg/dl 75 mg/dl (65-105) (65-105) Calcium 8.9 mg/dL (8.4-10.2) Total Bilirubin 1.8 H mg/dL (0.2-1.3) AST 25 U/L (14-36) ALT 14 U/L (6-35) Alkaline Phosphatase 57 U/L (38-126) Total Protein 6.3 g/dL (6.3-8.2) Albumin 3.6 g/dL (3.5-5.1) 03/09/25 03/09/25 13:08 13:34 WBC RBC Hgb Hct MCV MCH MCHC RDW Plt Count MPV Immature Gran % (Auto) Neut % (Auto) Lymph % (Auto) [place] % (Auto) Eos % (Auto) Baso % (Auto) Lymph # (Auto) [place] # (Auto) Eos # (Auto) Baso # (Auto) Abs Immat Gran (auto) Absolute Neuts (auto) Absolute Nucleated RBC Nucleated RBC % Sodium Potassium Chloride Carbon Dioxide Anion Gap BUN Creatinine Estim Creat Clear Calc Estimated GFR Glucose POC Capillary Glucose 61 L mg/dl 127 H mg/dl (65-105) (65-105) Calcium Total Bilirubin AST ALT Alkaline Phosphatase Total Protein Albumin Patient hx anesthesia problems: none Family hx anesthesia problems: none Results Review: All pre-operative results and documents have been reviewed as part of the pre-operative evaluation. [facility] Past Medical History Medical History Hypertension Palpitations Carotid artery stenosis More than 50 percent stenosis of right internal carotid artery Renal artery stenosis Folic acid deficiency Type 2 diabetes mellitus Vitamin D deficiency Chronic anticoagulation Paroxysmal atrial fibrillation Pneumonia Vitamin B 12 deficiency Heart failure with preserved ejection fraction Hypothyroidism Peptic ulcer Deep venous thrombosis Gastroesophageal reflux disease Chronic hyponatremia Chronic, continuous use of opioids Chronic pain syndrome Obstructive sleep apnea Noncompliant with CPAP. Irritable bowel syndrome Coronary artery disease Angioplasty of a diagonal lesion in 01/2018. Cardiac catheterization 06/2019 showed patent coronary arteries. Anxiety Depression Degenerative joint disease involving multiple joints Rheumatoid arthritis Hiatal hernia Asthma Hyperlipidemia Peripheral neuropathy Seasonal allergies Surgical History Surgical History H/O heart artery stent x2 History of exploratory laparotomy Exploratory laparotomy with segmental mid jejunal small bowel resection with [id number] stapled anti peristaltic jejunal anastomosis 10/19/23 History of cataract extraction History of carpal tunnel release History of arthroscopy of both shoulders History of phacoemulsification of cataract with intraocular lens implantation History of cholecystectomy History of appendectomy at the time of her hysterectomy History of foot surgery History of cardiac catheterization Angioplasty of a diagonal stenosis 01/2018. Cardiac catheterization 06/2019 showed patent coronary arteries. History of hysterectomy Family History Family History Grandparent Diabetes mellitus Father Diabetes mellitus Acute myocardial infarction Hypertension Family history of cardiovascular disease Mother Diabetes mellitus Hypertension Sibling Diabetes mellitus Hypertension Social History Social History Social History: The patient lives in [place]. Her 2023. 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 Lifelong nonsmoker. No alcohol or illicit substance abuse. Per patient, POJeremías is [place], friend. Code status: Full code Caffeine-soda Smoking status: Never smoker Second hand tobacco smoke exposure: No Alcohol intake: never Substance use: never Substance use type: does not use Other substance usage details: medical marijauna Do You Feel Safe in your Home?: Yes Lack of Transportation: No Lack of Food: Never True Current Housing: I Have Housing Concerned About Future Housing: No Difficulty Paying Gas/Electric Bills: No Difficulty Paying for Meds: No Currently Unemployed: No Education: Associate Degree Difficulty w/ Childcare or Family Care: No Spiritual care concerns: No Agree to blood products: Yes Anes - Eval Final PreProcedure Day of Procedure 03/09/25 13:48 Patient weight: normal Heart: regular rate and rhythm Lungs: decreased breath sounds Airway: Mallampati scale class II Neurological: alert and oriented Last oral intake: >/= 8 hours ASA classification: IV Emergent: no Anesthetic plan: proceed Anesthesia type and monitoring: general ETT, standard monitoring and invasive monitoring central venous line Results Review: All pre-operative results and documents have been reviewed as part of the pre-operative evaluation. Informed Consent: The patient's anesthetic plan and its attendant risks and benefits were discussed with the patient/family/POA. Questions were solicited and answers provided to the satisfaction of the patient/family/POA.
--- NOTE | 2025-03-09 13:50 | WPDHPUPDATE1 ---
History and Physical Update Update Date/Time: 03/09/25 13:50 History and Physical has been reviewed, including an updated exam of the patient. There are NO changes in the patient's condition. Risks, benefits, and alternatives have been discussed and questions answered. Patient agrees to proceed with procedure. Will ask anesthesia to place a central line if possible for anticipated need for TPN post op. Pt agrees to proceed. Will add to consent.
[2025-03-09] MEDS: HYDROmorphone HCL INJ (*CRX) 2 MG/ML VIAL 0.5 MG IV PUSH (14:01)
[2025-03-09] MEDS: LACTATED RINGERS 1,000 ML 30 ML IV CONT ×2 (14:04→15:58)
--- NOTE | 2025-03-09 14:46 | WPDANESCVCPN ---
Anes - Cent Venous Cath Note Consent: I have discussed with the patient/family/POA, the non-emergent placement of a central venous catheter, including its clinical necessity/indication and associated potential risks and complications. The patient/family/POA understand(s) and acknowledge(s) the need to proceed with central venous catheter insertion Time-Out: A pre-procedural Time-Out was completed immediately before starting the procedure and confirmed: Patient Identification, Site, Procedure, Patient Position and the Availability of Requisite Equipment. Procedure Note Clinical Indications: IV access Patient position: trendelenburg Central venous catheter insertion site: right internal jugular CVC method of insertion: ultrasound-guided Hand hygiene/Aseptic technique: Hand hygiene procedures were performed. Aseptic technique was maintained throughout the procedure. Sterile barrier precautions: Maximal sterile barrier precautions, including use of a cap, mask, sterile gown, sterile gloves and a sterile full body drape. Site prep: chlorhexidine Skin anesthesia: placed under general anesthesia Romansh: 7 Lumen: 3 Length (cm): 15 cm Depth of insertion (cm): 14 Closure/Dressing: suture, biopatch and tegaderm Complications: None immediately noted/suspected. Chest X Ray: Ordered/review to follow. Procedure comments: done intra op without difficulty or complications will order CXR in recovery.
--- NOTE | 2025-03-09 14:56 | S_PTH ---
PATIENT: Aracely Spear LOC: [id number] U#:[id number] AGE/SX: 80/F ROOM: 340 RE03/06/[address]: Santo Dunaway MD : 1945 BED: 01 DIS: 03/17/2025 SPEC #: [id number] RECD: 03/10/25 09:51 STATUS: MAGY REQ #: [id number] LEONILA: 03/09/25 14:[address]: Rosendo Moore DEPT: [facility] Surgical RECD BY: Karina Fleming ENTERED: 03/10/25 09:52 SP TYPE: Surgical OTHR DR: JOSE ROBERTO Mcdermott DO Prashanth Jayaraj, MD Tissues: A - Peritoneum Procedures: Gross and Microscopic Level 4
[2025-03-09] MEDS: LIDO 1%/EPINEPHRINE 1:100,000 20 ML VIAL 30 ML INFILTRATE (15:38)
[2025-03-09] MEDS: BUPivacaine HCL 0.5% 10 ML AMP 30 ML INFILTRATE (15:39)
[2025-03-09] MEDS: HYDROmorphone HCL INJ (*CRX) 1 MG/ML SYR 0.25 MG IV PUSH ×6 (16:01→17:01)
[2025-03-09] MEDS: IBUPROFEN IV 400 MG in SODIUM CHLORIDE 0.9% IV 100 ML 200 MG IVPB ×2 (18:13→23:29)
[2025-03-09] MEDS: AMINO ACIDS 5%/D15W/E-LYTES/CA 1,000 ML with MULTIVITAMINS-12 INJ VIAL 1 1.25 ML, MULTI... 40 ML IV CONT (18:14)
[2025-03-09] MEDS: FAT EMULSIONS IV 20% 250 ML 20.83 ML IVPB (18:15)
[2025-03-09] MEDS: HYDROmorphone HCL INJ (*CRX) 2 MG/ML VIAL 1 MG IV PUSH ×2 (18:57→22:55)
[2025-03-09 19:22] LABS: Hematocrit 35.5 % (37.0-47.0); Hemoglobin 12.0 g/dL (12.0-15.0); Immature Granulocyte Percent A 0.7 % (0-0.5); Lymphocytes Absolute Auto 2.05 K/mm3 (0.9-3.2); Mean Corpuscular HGB Conc 33.8 g/dl (32-36); Mean Corpuscular Hemoglobin 32.3 pg (26-34); Mean Corpuscular Volume 95.7 fl (80-100); Nucleated Red Blood Cells Absolute Auto 0.000 K/mm3 (0.0-0.012); Nucleated Red Blood Cells Perc 0.0 % (0.0-0.2); Platelet Count Result 283 k/mm3 (150-375); Red Blood Count 3.71 M/mm3 (4.2-5.4); White Blood Count 19.8 K/mm3 (4.5-10.0)
[2025-03-09 19:23] LABS: Partial Thromboplastin Time 22.5 Seconds (22.3-36.8)
[2025-03-09 19:32] LABS: Alanine Aminotransferase 17 U/L (6-35); Albumin Level 3.5 g/dL (3.5-5.1); Alkaline Phosphatase 53 U/L (38-126); Anion Gap 10 mmol/L (4-12); Aspartate Amino Transferase 29 U/L (14-36); Bilirubin,Total 1.7 mg/dL (0.2-1.3); Blood Urea Nitrogen 14 mg/dL (7-17); Calcium 8.8 mg/dL (8.4-10.2); Carbon Dioxide 24 mmol/L (22-30); Chloride 97 mmol/L (98-107); Estimated Glomerular Filt Rate > 60; Glucose 162 mg/dL (65-110); Magnesium 1.3 mg/dL (1.6-2.3); Potassium 3.3 mmol/L (3.4-5.0); Sodium 131 mmol/L (137-145); Total Protein 6.0 g/dL (6.3-8.2)
[2025-03-09 19:39] LABS: Transferrin 198 mg/dL (206-381)
[2025-03-09] MEDS: KCL 20 MEQ/SW 100 ML 100 ML 50 MEQ IVPB (20:27)
[2025-03-09] MEDS: MAGNESIUM SULFATE 3GM/D5W100ML 3 GM/100 ML BAG IVPB (20:27)
[2025-03-09] MEDS: MORPHINE SULFATE (*CRX) 2 MG/ML INJ IV PUSH (21:45)
[2025-03-09] MEDS: INSULIN ASPART (*BKC) 100 UNITS/ML SUB-Q (23:29)
[2025-03-10] VITALS (7 sets, daily range): BP systolic 128–184; BP diastolic 55–91; PULSE 60–86; RESP 16–18; TEMP 36.1–36.8; O2SAT 95–97; BMI 25.3
[2025-03-10] MEDS: MAG HYDROX/AL HYDROX/SIMETH 30 ML UDC FEED TUBE ×3 (02:10→17:33)
[2025-03-10] MEDS: HYDROmorphone HCL INJ (*CRX) 2 MG/ML VIAL 1 MG IV PUSH ×2 (03:15→07:11)
[2025-03-10] MEDS: MORPHINE SULFATE (*CRX) 2 MG/ML INJ IV PUSH (05:04)
[2025-03-10] MEDS: LEVOTHYROXINE SODIUM INJ 100 MCG/5 ML VIAL 44 MCG IV PUSH (06:02)
[2025-03-10] MEDS: IBUPROFEN IV 400 MG in SODIUM CHLORIDE 0.9% IV 100 ML 200 MG IVPB ×4 (06:03→23:40)
[2025-03-10 06:09] LABS: Hematocrit 29.8 % (37.0-47.0); Hemoglobin 10.1 g/dL (12.0-15.0); Mean Corpuscular HGB Conc 33.9 g/dl (32-36); Mean Corpuscular Hemoglobin 32.0 pg (26-34); Mean Corpuscular Volume 94.3 fl (80-100); Platelet Count Result 212 k/mm3 (150-375); Red Blood Count 3.16 M/mm3 (4.2-5.4); White Blood Count 14.8 K/mm3 (4.5-10.0)
[2025-03-10 06:10] LABS: Immature Granulocyte Percent A 0.5 % (0-0.5); Lymphocytes Absolute Auto 2.00 K/mm3 (0.9-3.2); Nucleated Red Blood Cells Absolute Auto 0.000 K/mm3 (0.0-0.012); Nucleated Red Blood Cells Perc 0.0 % (0.0-0.2)
[2025-03-10 06:26] LABS: Alanine Aminotransferase 15 U/L (6-35); Albumin Level 3.0 g/dL (3.5-5.1); Alkaline Phosphatase 41 U/L (38-126); Anion Gap 5 mmol/L (4-12); Aspartate Amino Transferase 26 U/L (14-36); Bilirubin,Total 1.0 mg/dL (0.2-1.3); Blood Urea Nitrogen 20 mg/dL (7-17); Calcium 8.4 mg/dL (8.4-10.2); Carbon Dioxide 26 mmol/L (22-30); Chloride 97 mmol/L (98-107); Estimated Glomerular Filt Rate > 60; Glucose 184 mg/dL (65-110); Magnesium 2.1 mg/dL (1.6-2.3); Potassium 3.8 mmol/L (3.4-5.0); Sodium 128 mmol/L (137-145); Total Protein 5.2 g/dL (6.3-8.2)
[2025-03-10] MEDS: FAMOTIDINE 20 MG/2 ML VIAL IV PUSH ×2 (08:17→20:18)
[2025-03-10] MEDS: ENOXAPARIN 40 MG/0.4 ML SYRINGE SUB-Q (08:18)
[2025-03-10] MEDS: LIDOCAINE 5% PATCH 1 PATCH TRANSDERM (08:18)
[2025-03-10] MEDS: HYDROmorphone HCL INJ (*CRX) 2 MG/ML VIAL 0.5 MG IV PUSH ×6 (10:16→21:56)
--- NOTE | 2025-03-10 10:17 | P.PNIM_ITS ---
Progress Note: A&P Assessment and Plan (1) SBO (small bowel obstruction): Code(s): K56.609 - Unspecified intestinal obstruction, unspecified as to partial versus complete obstruction Status: Acute Assessment and Plan: * CT abdomen/pelvis: * Dilated small bowel loops suggestive of partial versus complete obstruction. * Other appearances are unchanged from previous examination. * bowel rest, NPO. NG place in ED, confirmation via XR * IV fluids: 2L bolus, will hold on further fluids as the patient has history of heart failure with preserved EF * started on Zosyn on 03/06, continued * analgesics p.r.n. * Leukocytosis improving, WBC down from 18.4-12.5 on 03/07 * general surgery consulted * appreciate further recommendations * Water-soluble small-bowel follow-through series today * IV fluid hydration while NPO * Surgical management not rule out at this time, continue to hold Eliquis * Maintain antibiotics, IV fluid hydration, hold Eliquis * Small-bowel follow-through series * no contrast moving to the colon at 5 hours c/w a small bowel obstruction * 03/09: Exploratory laparotomy, possible small bowel resection @ 1400 03/10-wbc trending donw 14.8 today - pain still an issues - continue NG tube (2) Chronic hyponatremia: Code(s): E87.1 - Hypo-osmolality and hyponatremia Status: Chronic Assessment and Plan: * Na 127, previously 126 on 02/28 * history chronic hyponatremia, present since 2018 * monitor * 03/09: Sodium 135 03/10 currently at 128. appears to be chronic issues for her monitor for now (3) FARTUN (iron deficiency anemia): Qualifiers: Iron deficiency anemia type: chronic blood loss Qualified Code(s): D50.0 - Iron deficiency anemia secondary to blood loss (chronic) Code(s): D50.9 - Iron deficiency anemia, unspecified Status: Chronic Assessment and Plan: * Hgb 13.7 * Hx: FARTUN * transfuse if <7 * trend * 03/09: Hgb 11.7 (4) Type 2 diabetes mellitus: Qualifiers: Diabetes mellitus complication status: without complication Diabetes mellitus care home insulin use: without rat exterminator use Qualified Code(s): E11.9 - Type 2 diabetes mellitus without complications Code(s): E11.9 - Type 2 diabetes mellitus without complications Status: Resolved Assessment and Plan: * hypoglycemia protocol and POC blood glucose Q6H until no longer NPO * history of diabetes, resolved. No longer on medications. * A1C 5.5% on 10/08/2024 (5) Atrial fibrillation: Qualifiers: Atrial fibrillation type: paroxysmal Qualified Code(s): I48.0 - Paroxysmal atrial fibrillation Code(s): I48.91 - Unspecified atrial fibrillation Status: Chronic Assessment and Plan: * history of paroxysmal AFib * EKG, initial, 03/06: sinus rhythm, rate 74, LVH, cannot rule out septal infarct age indeterminate, minimal Q-waves high lateral leads. No significant change compared to EKG done on 02/25. * continue home medications (6) Hypertension: Qualifiers: Hypertension type: primary hypertension Qualified Code(s): I10 - Essential (primary) hypertension Code(s): I10 - Essential (primary) hypertension Status: Chronic Assessment and Plan: * chronic, currently 153/57 * continue home medications * monitor * reviewed and stable Plan Diet: NPO-NG tube GI Prophylaxis: Pantoprazole DVT Prophylaxis: SCDs, Eliquis IV fluids: 2L bolus, no further fluids due to history of HFpEF Lines/Tubes: Peripheral IV, NG tube Code Status: Full code Time Spent With Patient Time with patient: 25 - 35 minutes Subjective Date/time seen: 03/10/25 10:17 Interval history: 80 y/o F with PMH of chronic hyponatremia, CAD, DVT, anxiety/depression, HF with preserved EF, HLD, HTN, hypothyroidism, IBS, ELVIRA noncompliant with CPAP, paroxysmal AFib, rheumatoid arthritis, and diabetes presents here with nausea and vomiting. 03/09/2025 Patient sitting comfortably in bed at time of exam. General surgery to proceed with exploratory laparotomy today for SBO, tentatively scheduled for 1400. Continue NPO, IV antibiotics. Pt otherwise has no complaints in the am. General Surg to continue following post procedure. 03/10 assuming care. Pt had Exploratory laparotomy, small bowel resection 03/09/[address] Moore. pain still an issue-requiring iv pain meds. NG tube still in place Review of Systems Review of Systems: All systems reviewed & are unremarkable except as noted in HPI and below Exam Narrative: ng tube in place Const: General: no acute distress and uncomfortable Other: , female, elderly, diffuse discomfort HENMT: Face/Nose/Sinus: Normal nares present Mouth: Yes moist mucous membranes Other: NG in place to right nare Eyes: General: appearance normal, both eyes and all related structures Sclera: sclerae normal Pupils: Equal, round and reactive pupils present EOM: EOMs intact bilaterally Resp: Effort & Inspection: normal respiratory effort Auscultation: clear to auscultation bilaterally Cardio: Rate: regular rate Rhythm: regular rhythm Other: S1-S2 present without murmur, rub, ectopy GI: Other: Hyperactive bowel sounds in all quadrants, mild tenderness that is diffuse, abdomen soft Skin: General skin exam: normal color and no rashes or lesions noted Wounds: no wounds Neuro: Cranial nerves: Yes Equal, round and reactive pupils present Speech: normal speech Motor exam (neuro): 5/5 motor strength present throughout Sensory Exam: normal sensation Other: A&O x4 Extrem: General: normal to inspection Psych: Mental Status: mental status grossly normal Affect: Anxious affect present Other: Patient tearful, restless, fair insight and judgment. Objective Data Vital Signs Vital Signs: Vital Signs - 24 hr 03/09/25 14:07 03/09/25 15:58 03/09/25 16:10 Temperature 100.2 F H 98.3 F Pulse Rate 85 97 96 Respiratory Rate 16 16 Blood Pressure 179/63 H 189/59 H 163/72 H Pulse Oximetry 99 100 100 Oxygen Delivery Room Air Simple Face Mask Simple Face Mask Oxygen Flow Rate 6 6 03/09/25 16:25 03/09/25 16:40 03/09/25 16:55 Temperature Pulse Rate 94 89 86 Respiratory Rate 16 16 16 Blood Pressure 151/67 H 149/66 H 132/59 L Pulse Oximetry 100 100 100 Oxygen Delivery Simple Face Mask Nasal Cannula Nasal Cannula Oxygen Flow Rate 6 2 2 03/09/25 17:10 03/09/25 17:36 03/09/25 17:51 Temperature 97.7 F 98.4 F 99 F Pulse Rate 89 94 93 Respiratory Rate 16 14 14 Blood Pressure 142/56 H 160/57 H 135/65 Pulse Oximetry 100 100 97 Oxygen Delivery Nasal Cannula Oxygen Flow Rate 2 03/09/25 18:21 03/09/25 19:25 03/09/25 20:00 Temperature 98.8 F 97.8 F Pulse Rate 96 87 Respiratory Rate 14 18 Blood Pressure 147/62 H 146/60 H Pulse Oximetry 96 97 Oxygen Delivery Room Air Oxygen Flow Rate 03/10/25 01:19 03/10/25 04:43 03/10/25 08:00 Temperature 98 F 97.9 F 98.1 F Pulse Rate 86 60 63 Respiratory Rate 18 16 18 Blood Pressure 139/55 L 128/55 L 130/58 L Pulse Oximetry 97 97 96 Oxygen Delivery Oxygen Flow Rate 03/10/25 08:20 Temperature Pulse Rate Respiratory Rate Blood Pressure Pulse Oximetry Oxygen Delivery Room Air Oxygen Flow Rate Intake/Output Intake/Output: Intake & Output 03/07/25 03/08/25 03/09/25 03/10/25 23:59 23:59 23:59 23:59 Intake Total 100 2450.0 3604 104 Output Total 1700 2950 400 350 Balance -1600 -500.0 3204 -246 Meds/Results Medications: Active Medications Generic Name Dose Route Start Last Admin Trade Name Freq PRN Reason Stop Dose Admin Acetaminophen 650 mg 03/06/25 16:19 Acetaminophen 650 Mg Suppository RECTAL Q6H PRN Mild Pain (1-3) or Fever Al Hydrox/Mg Hydrox/Simethicone 30 ml 03/07/25 10:15 03/10/25 02:10 Mag Hydrox/Al Hydrox/Simeth 30 Ml Udc FEED TUBE 30 ml Q8H GINO Administration Dextrose 12.5 gm 03/06/25 16:19 03/09/25 13:11 Dextrose 50% 25 Gm/50 Ml Syringe IV PUSH 12.5 gm PRN PRN Administration Hypoglycemia Protocol Enoxaparin Sodium 40 mg 03/10/25 09:00 03/10/25 08:18 Enoxaparin 40 Mg/0.4 Ml Syringe SUB-Q 40 mg DAILY GINO Administration Famotidine 20 mg 03/07/25 21:00 03/10/25 08:17 Famotidine 20 Mg/2 Ml Vial IV PUSH 20 mg Q12HR GINO Administration Glucagon 1 mg 03/06/25 16:19 Glucagon For Inj 1 Mg Vial IM PRN PRN Hypoglycemia Protocol Glucose 15 gm 03/06/25 16:19 Glucose Oral Gel 15 Gm Of Glucse In 37.5 Gm Tube PO PRN PRN Hypoglycemia Protocol Hydromorphone HCl 0.5 mg 03/10/25 09:53 Hydromorphone Hcl Inj (*Crx) 2 Mg/Ml Vial IV PUSH Q2HR PRN Pain Rated 8-10 Dextrose 1,000 mls @ 100 mls/hr 03/06/25 16:19 Dextrose 5% 1,000 Ml IVPB PRN PRN Hypoglycemia Protocol Dextrose 1,000 mls @ 50 mls/hr 03/09/25 17:21 Dextrose 10% IV CONT .Q20H PRN if PN is interrupted Multivitamins 1.25 ml/ 1,002.5 mls @ 40 mls/hr 03/09/25 18:30 03/09/25 18:14 Multivitamins 1.25 ml/ Amino IV CONT 40 mls/hr Acids/Electrolytes/Dextrose .Q24H GINO Administration Protocol Fat Emulsion Intravenous 250 mls @ 20.833 mls/hr 03/09/25 18:30 03/09/25 18:15 Lipids 20% IVPB 20.83 mls/hr Q24H GINO Administration Ibuprofen 400 mg/ Sodium 104 mls @ 200 mls/hr 03/09/25 18:00 03/10/25 06:03 Chloride IVPB 200 mls/hr Q6HR GINO Administration Sodium Chloride 1,000 mls @ 60 mls/hr 03/10/25 08:45 Normal Saline Iv IV CONT .[id number] GINO Insulin Aspart 2 - 5 units 03/10/25 00:00 03/10/25 06:29 Insulin Aspart (*Bkc) 100 Units/Ml SUB-Q Not Given Q6HR [facility] Protocol Levothyroxine Sodium 44 mcg 03/08/25 06:30 03/10/25 06:02 Levothyroxine Sodium Inj 100 Mcg/5 Ml Vial IV PUSH 44 mcg DAILY@0630 GINO Administration Lidocaine 1 patch 03/10/25 09:00 03/10/25 08:18 Lidocaine 5% Patch TRANSDERM 1 patch DAILY GINO Administration Lorazepam 0.5 mg 03/09/25 17:21 Lorazepam Inj (*Crx) 2 Mg/Ml Vial IV PUSH Q6H PRN Anxiety Morphine Sulfate 2 mg 03/09/25 19:28 03/10/25 05:04 Morphine Sulfate (*Crx) 2 Mg/Ml Inj IV PUSH 2 mg Q4H PRN Administration Pain Rated 4-7 Naloxone HCl 0.1 mg 03/06/25 16:20 Naloxone Hcl 0.4 Mg/Ml Vial IV PUSH Q5MIN PRN Sedation Ondansetron HCl 4 mg 03/08/25 04:20 03/08/25 04:33 Ondansetron Inj 4 Mg/2 Ml Vial IV PUSH 4 mg Q6H PRN Administration Nausea And Vomiting Ondansetron HCl 4 mg 03/09/25 13:48 Ondansetron Inj 4 Mg/2 Ml Vial IV PUSH ONCE PRN Nausea Sodium Chloride 10 ml 03/10/25 06:56 Central Line Flush IV PUSH PRN PRN with TPN bag changes Sodium Chloride 10 ml 03/10/25 14:00 Central Line Flush IV PUSH Q8HR GINO Sodium Chloride 20 ml 03/10/25 06:56 Central Line Flush IV PUSH PRN PRN after blood draws Radiology Results: ITS Impressions Abdomen/Pelvis CT 03/06/25 14:15 IMPRESSION: 1. Dilated small bowel loops suggestive of partial versus complete obstruction. 2. Other appearances are unchanged from previous examination. Small Bowel X-Ray 03/07/25 17:39 IMPRESSION: 1. Slow progression of contrast through several loops of dilated small bowel in the central abdomen with no contrast in colon by 5 hours consistent with a small bowel obstruction. 2. Small to moderate-sized sliding-type hiatal hernia with gastroesophageal reflux. Chest X-Ray 03/09/25 16:41 IMPRESSION: Highly suggestive air under the right hemidiaphragm. Clinical correlation and repeat exam is advised. No acute cardiopulmonary pathology. Supporting lines as described above. Nurse Cherie was notified with the result of the patient at 4:45 PM on March 09, 2025 Abdomen X-Ray 03/09/25 17:41 IMPRESSION: Nasogastric tube presumably in good position and ready for immediate use. Labs Labs: Laboratory Results - last 24 hr 03/09/25 03/09/25 03/09/25 13:08 13:34 16:34 WBC RBC Hgb Hct MCV MCH MCHC RDW Plt Count MPV Immature Gran % (Auto) Neut % (Auto) Lymph % (Auto) Haines % (Auto) Eos % (Auto) Baso % (Auto) Lymph # (Auto) Haines # (Auto) Eos # (Auto) Baso # (Auto) Abs Immat Gran (auto) Absolute Neuts (auto) Absolute Nucleated RBC Nucleated RBC % APTT Sodium Potassium Chloride Carbon Dioxide Anion Gap BUN Creatinine Estim Creat Clear Calc Estimated GFR Glucose POC Capillary Glucose 61 L 127 H 150 H Calcium Phosphorus Magnesium Transferrin Total Bilirubin AST ALT Alkaline Phosphatase Total Protein Albumin 03/09/25 03/09/25 03/09/25 18:01 18:34 23:08 WBC 19.8 H RBC 3.71 L Hgb 12.0 Hct 35.5 L MCV 95.7 MCH 32.3 MCHC 33.8 RDW 12.4 Plt Count 283 MPV 9.4 Immature Gran % (Auto) 0.7 H Neut % (Auto) 84.3 H Lymph % (Auto) 10.4 L Haines % (Auto) 4.2 Eos % (Auto) 0.2 Baso % (Auto) 0.2 Lymph # (Auto) 2.05 Haines # (Auto) 0.8 H Eos # (Auto) 0.0 Baso # (Auto) 0.0 Abs Immat Gran (auto) 0.13 H Absolute Neuts (auto) 16.7 H Absolute Nucleated RBC 0.000 Nucleated RBC % 0.0 APTT 22.5 Sodium 131 L Potassium 3.3 L Chloride 97 L Carbon Dioxide 24 Anion Gap 10 BUN 14 D Creatinine 0.64 L Estim Creat Clear Calc Not Reportable Estimated GFR > 60 Glucose 162 H POC Capillary Glucose 180 H 253 H Calcium 8.8 Phosphorus Magnesium 1.3 L Transferrin 198 L Total Bilirubin 1.7 H AST 29 ALT 17 Alkaline Phosphatase 53 Total Protein 6.0 L Albumin 3.5 03/10/25 06:01 WBC 14.8 H RBC 3.16 L Hgb 10.1 L Hct 29.8 L MCV 94.3 MCH 32.0 MCHC 33.9 RDW 12.4 Plt Count 212 MPV 8.9 Immature Gran % (Auto) 0.5 Neut % (Auto) 77.4 H Lymph % (Auto) 13.5 L Haines % (Auto) 8.3 Eos % (Auto) 0.1 Baso % (Auto) 0.2 Lymph # (Auto) 2.00 Haines # (Auto) 1.2 H Eos # (Auto) 0.0 Baso # (Auto) 0.0 Abs Immat Gran (auto) 0.07 H Absolute Neuts (auto) 11.5 H Absolute Nucleated RBC 0.000 Nucleated RBC % 0.0 APTT Sodium 128 L Potassium 3.8 Chloride 97 L Carbon Dioxide 26 Anion Gap 5 BUN 20 H Creatinine 0.70 Estim Creat Clear Calc Not Reportable Estimated GFR > 60 Glucose 184 H POC Capillary Glucose Calcium 8.4 Phosphorus 2.2 L Magnesium 2.1 Transferrin Total Bilirubin 1.0 AST 26 ALT 15 Alkaline Phosphatase 41 Total Protein 5.2 L Albumin 3.0 L Quality VTE Prophylaxis VTE prophylaxis: mechanical ordered
[2025-03-10] MEDS: SODIUM CHLORIDE 0.9% IV 1,000 ML 60 ML IV CONT (12:09)
--- NOTE | 2025-03-10 12:17 | P.PNGS_ITS ---
Progress Note: A&P Assessment and Plan (1) SBO (small bowel obstruction): Code(s): K56.609 - Unspecified intestinal obstruction, unspecified as to partial versus complete obstruction Status: Acute Assessment and Plan: * POD1 s/p ex lap with adhesiolysis. Patient is experiencing crampy abdominal pain. She has been having trouble managing the pain with current regimen. Incision is clean and dry with no signs of infection. WBC 14.8, down from 19.8. Low grade fever yesterday that has since improved. Incentive spirometry ordered. Pain regimen changed to Dilaudid 0.5 mg every 2 hours PRN. Continue ibuprofen Q6H. Ativan switched to Valium 2.5 IV Q12H. We will continue to monitor. (2) Leukocytosis: Code(s): D72.829 - Elevated white blood cell count, unspecified Status: Acute Assessment and Plan: * WBC down to 14.8 today. Continue to monitor. This is likely related to her bowel obstruction and recent surgery. (3) Type 2 diabetes mellitus: Qualifiers: Diabetes mellitus vermin exterminator insulin use: without mcc use Diabetes mellitus complication status: without complication Qualified Code(s): E11.9 - T ype 2 diabetes mellitus without complications Code(s): E11.9 - Type 2 diabetes mellitus without complications Status: Resolved Assessment and Plan: * Controlled on last hgb A1C in September. Management per Hospitalist. (4) Chronic anticoagulation: Code(s): Z79.01 - care home (current) use of anticoagulants Status: Chronic Assessment and Plan: * Continue to hold Eliquis until patient is taking orals. (5) Paroxysmal A-fib: Code(s): I48.0 - Paroxysmal atrial fibrillation Status: Acute Assessment and Plan: * Patient has a history of paroxysmal afib and was recently evaluated by Cardiology on 03/02/25. She has had recent complaints of palpitations and Cardiology put on a 30-day monitoring engineer to assess for occurrence/frequency of afib and heart rate when in afib. Will have nursing call Dr. Peng's office to let them know she is in the hospital and will need this removed for surgery so that they can decide what to do with the monitor while she is hospitalized. (6) Carotid artery stenosis: Code(s): I65.29 - Occlusion and stenosis of unspecified carotid artery Status: Acute (7) Heart failure with preserved ejection fraction: Qualifiers: Heart failure chronicity: chronic Qualified Code(s): I50.32 - Chronic diastolic (congestive) heart failure Code(s): I50.30 - Unspecified diastolic (congestive) heart failure Status: Acute (8) Chronic, continuous use of opioids: Code(s): F11.90 - Opioid use, unspecified, uncomplicated Status: Acute Assessment and Plan: * Chronic opioid use could make postoperative pain control difficult. Plan I have discussed the patient's case and plan of care with Dr. Moore. Subjective Subjective Date/Time Seen: 03/10/25 12:17 Post Op day: 1 Patient reports: still having pain, no flatus and no bowel movement Interval history: Patient reports that she is having abdominal pain that is not well managed with current pain regimen. She describes the pain as being crampy and coming in waves. She has not passed a bowel movement or passed gas yet. No nausea or vomiting. NG with minimal output. Low grade fever yesterday that has since resol lavon. Incentive spirometry ordered. Exam GI: GI Palp: Yes Soft to palpation, Yes Tenderness to palpation present (GI) and No Guarding due to palpation present (GI) Auscultation: abnormal bowel sounds (hypoactive, but still present) Other: Tenderness to palpation of RLQ and area surrounding incision site. Incision is clean and dry with no areas of dehiscence, purulence, or necrosis. Mild redness surrounding incision, as expected. Objective Data Vital Signs Vital Signs: Vital Signs - 24 hr 03/09/25 14:07 03/09/25 15:58 03/09/25 16:10 Temperature 100.2 F H 98.3 F Pulse Rate 85 97 96 Respiratory Rate 16 16 Blood Pressure 179/63 H 189/59 H 163/72 H Pulse Oximetry 99 100 100 Oxygen Delivery Room Air Simple Face Mask Simple Face Mask Oxygen Flow Rate 6 6 03/09/25 16:25 03/09/25 16:40 03/09/25 16:55 Temperature Pulse Rate 94 89 86 Respiratory Rate 16 16 16 Blood Pressure 151/67 H 149/66 H 132/59 L Pulse Oximetry 100 100 100 Oxygen Delivery Simple Face Mask Nasal Cannula Nasal Cannula Oxygen Flow Rate 6 2 2 03/09/25 17:10 03/09/25 17:36 03/09/25 17:51 Temperature 97.7 F 98.4 F 99 F Pulse Rate 89 94 93 Respiratory Rate 16 14 14 Blood Pressure 142/56 H 160/57 H 135/65 Pulse Oximetry 100 100 97 Oxygen Delivery Nasal Cannula Oxygen Flow Rate 2 03/09/25 18:21 03/09/25 19:25 03/09/25 20:00 Temperature 98.8 F 97.8 F Pulse Rate 96 87 Respiratory Rate 14 18 Blood Pressure 147/62 H 146/60 H Pulse Oximetry 96 97 Oxygen Delivery Room Air Oxygen Flow Rate 03/10/25 01:19 03/10/25 04:43 03/10/25 08:00 Temperature 98 F 97.9 F 98.1 F Pulse Rate 86 60 63 Respiratory Rate 18 16 18 Blood Pressure 139/55 L 128/55 L 130/58 L Pulse Oximetry 97 97 96 Oxygen Delivery Oxygen Flow Rate 03/10/25 08:20 03/10/25 12:00 Temperature 96.9 F L Pulse Rate 69 Respiratory Rate 16 Blood Pressure 183/56 H Pulse Oximetry 97 Oxygen Delivery Room Air Oxygen Flow Rate Intake/Output Intake/Output: Intake & Output 03/07/25 03/08/25 03/09/25 03/10/25 23:59 23:59 23:59 23:59 Intake Total 100 2450.0 3604 208 Output Total 1700 2950 400 350 Balance -1600 -500.0 3204 -142 Meds/Results Medications: Active Medications Generic Name Dose Route Start Last Admin Trade Name Freq PRN Reason Stop Dose Admin Acetaminophen 650 mg 03/06/25 16:19 Acetaminophen 650 Mg Suppository RECTAL Q6H PRN Mild Pain (1-3) or Fever Al Hydrox/Mg Hydrox/Simethicone 30 ml 03/07/25 10:15 03/10/25 10:17 Mag Hydrox/Al Hydrox/Simeth 30 Ml Udc FEED TUBE 30 ml Q8H GINO Administration Dextrose 12.5 gm 03/06/25 16:19 03/09/25 13:11 Dextrose 50% 25 Gm/50 Ml Syringe IV PUSH 12.5 gm PRN PRN Administration Hypoglycemia Protocol Enoxaparin Sodium 40 mg 03/10/25 09:00 03/10/25 08:18 Enoxaparin 40 Mg/0.4 Ml Syringe SUB-Q 40 mg DAILY GINO Administration Famotidine 20 mg 03/07/25 21:00 03/10/25 08:17 Famotidine 20 Mg/2 Ml Vial IV PUSH 20 mg Q12HR GINO Administration Glucagon 1 mg 03/06/25 16:19 Glucagon For Inj 1 Mg Vial IM PRN PRN Hypoglycemia Protocol Glucose 15 gm 03/06/25 16:19 Glucose Oral Gel 15 Gm Of Glucse In 37.5 Gm Tube PO PRN PRN Hypoglycemia Protocol Hydromorphone HCl 0.5 mg 03/10/25 09:53 03/10/25 10:16 Hydromorphone Hcl Inj (*Crx) 2 Mg/Ml Vial IV PUSH 0.5 mg Q2HR PRN Administration Pain Rated 8-10 Dextrose 1,000 mls @ 100 mls/hr 03/06/25 16:19 Dextrose 5% 1,000 Ml IVPB PRN PRN Hypoglycemia Protocol Dextrose 1,000 mls @ 50 mls/hr 03/09/25 17:21 Dextrose 10% IV CONT .Q20H PRN if PN is interrupted Multivitamins 1.25 ml/ 1,002.5 mls @ 40 mls/hr 03/09/25 18:30 03/09/25 18:14 Multivitamins 1.25 ml/ Amino IV CONT 40 mls/hr Acids/Electrolytes/Dextrose .Q24H GINO Administration Protocol Fat Emulsion Intravenous 250 mls @ 20.833 mls/hr 03/09/25 18:30 03/09/25 18:15 Lipids 20% IVPB 20.83 mls/hr Q24H GINO Administration Ibuprofen 400 mg/ Sodium 104 mls @ 200 mls/hr 03/09/25 18:00 03/10/25 12:10 Chloride IVPB 200 mls/hr Q6HR GINO Administration Sodium Chloride 1,000 mls @ 60 mls/hr 03/10/25 08:45 03/10/25 12:09 Normal Saline Iv IV CONT 60 mls/hr .[id number] GINO Administration Insulin Aspart 2 - 5 units 03/10/25 00:00 03/10/25 12:14 Insulin Aspart (*Bkc) 100 Units/Ml SUB-Q Not Given Q6HR GINO Protocol Levothyroxine Sodium 44 mcg 03/08/25 06:30 03/10/25 06:02 Levothyroxine Sodium Inj 100 Mcg/5 Ml Vial IV PUSH 44 mcg DAILY@0630 IGNO Administration Lidocaine 1 patch 03/10/25 09:00 03/10/25 08:18 Lidocaine 5% Patch TRANSDERM 1 patch DAILY GINO Administration Lorazepam 0.5 mg 03/09/25 17:21 Lorazepam Inj (*Crx) 2 Mg/Ml Vial IV PUSH Q6H PRN Anxiety Morphine Sulfate 2 mg 03/09/25 19:28 03/10/25 05:04 Morphine Sulfate (*Crx) 2 Mg/Ml Inj IV PUSH 2 mg Q4H PRN Administration Pain Rated 4-7 Naloxone HCl 0.1 mg 03/06/25 16:20 Naloxone Hcl 0.4 Mg/Ml Vial IV PUSH Q5MIN PRN Sedation Ondansetron HCl 4 mg 03/08/25 04:20 03/08/25 04:33 Ondansetron Inj 4 Mg/2 Ml Vial IV PUSH 4 mg Q6H PRN Administration Nausea And Vomiting Ondansetron HCl 4 mg 03/09/25 13:48 Ondansetron Inj 4 Mg/2 Ml Vial IV PUSH ONCE PRN Nausea Sodium Chloride 10 ml 03/10/25 06:56 Central Line Flush IV PUSH PRN PRN with TPN bag changes Sodium Chloride 10 ml 03/10/25 14:00 Central Line Flush IV PUSH Q8HR GINO Sodium Chloride 20 ml 03/10/25 06:56 Central Line Flush IV PUSH PRN PRN after blood draws Radiology Results: ITS Impressions Abdomen/Pelvis CT 03/06/25 14:15 IMPRESSION: 1. Dilated small bowel loops suggestive of partial versus complete obstruction. 2. Other appearances are unchanged from previous examination. Small Bowel X-Ray 03/07/25 17:39 IMPRESSION: 1. Slow progression of contrast through several loops of dilated small bowel in the central abdomen with no contrast in colon by 5 hours consistent with a small bowel obstruction. 2. Small to moderate-sized sliding-type hiatal hernia with gastroesophageal reflux. Chest X-Ray 03/09/25 16:41 IMPRESSION: Highly suggestive air under the right hemidiaphragm. Clinical correlation and repeat exam is advised. No acute cardiopulmonary pathology. Supporting lines as described above. Nurse Crespo was notified with the result of the patient at 4:45 PM on March 09, 2025 Abdomen X-Ray 03/09/25 17:41 IMPRESSION: Nasogastric tube presumably in good position and ready for immediate use. Labs Labs: Laboratory Results - last 24 hr 03/09/25 03/09/25 03/09/25 13:08 13:34 16:34 WBC RBC Hgb Hct MCV MCH MCHC RDW Plt Count MPV Immature Gran % (Auto) Neut % (Auto) Lymph % (Auto) [place] % (Auto) Eos % (Auto) Baso % (Auto) Lymph # (Auto) [place] # (Auto) Eos # (Auto) Baso # (Auto) Abs Immat Gran (auto) Absolute Neuts (auto) Absolute Nucleated RBC Nucleated RBC % APTT Sodium Potassium Chloride Carbon Dioxide Anion Gap BUN Creatinine Estim Creat Clear Calc Estimated GFR Glucose POC Capillary Glucose 61 L 127 H 150 H Calcium Phosphorus Magnesium Transferrin Total Bilirubin AST ALT Alkaline Phosphatase Total Protein Albumin 03/09/25 03/09/25 03/09/25 18:01 18:34 23:08 WBC 19.8 H RBC 3.71 L Hgb 12.0 Hct 35.5 L MCV 95.7 MCH 32.3 MCHC 33.8 RDW 12.4 Plt Count 283 MPV 9.4 Immature Gran % (Auto) 0.7 H Neut % (Auto) 84.3 H Lymph % (Auto) 10.4 L [place] % (Auto) 4.2 Eos % (Auto) 0.2 Baso % (Auto) 0.2 Lymph # (Auto) 2.05 [place] # (Auto) 0.8 H Eos # (Auto) 0.0 Baso # (Auto) 0.0 Abs Immat Gran (auto) 0.13 H Absolute Neuts (auto) 16.7 H Absolute Nucleated RBC 0.000 Nucleated RBC % 0.0 APTT 22.5 Sodium 131 L Potassium 3.3 L Chloride 97 L Carbon Dioxide 24 Anion Gap 10 BUN 14 D Creatinine 0.64 L Estim Creat Clear Calc Not Reportable Estimated GFR > 60 Glucose 162 H POC Capillary Glucose 180 H 253 H Calcium 8.8 Phosphorus Magnesium 1.3 L Transferrin 198 L Total Bilirubin 1.7 H AST 29 ALT 17 Alkaline Phosphatase 53 Total Protein 6.0 L Albumin 3.5 03/10/25 03/10/25 06:01 11:50 WBC 14.8 H RBC 3.16 L Hgb 10.1 L Hct 29.8 L MCV 94.3 MCH 32.0 MCHC 33.9 RDW 12.4 Plt Count 212 MPV 8.9 Immature Gran % (Auto) 0.5 Neut % (Auto) 77.4 H Lymph % (Auto) 13.5 L [place] % (Auto) 8.3 Eos % (Auto) 0.1 Baso % (Auto) 0.2 Lymph # (Auto) 2.00 [place] # (Auto) 1.2 H Eos # (Auto) 0.0 Baso # (Auto) 0.0 Abs Immat Gran (auto) 0.07 H Absolute Neuts (auto) 11.5 H Absolute Nucleated RBC 0.000 Nucleated RBC % 0.0 APTT Sodium 128 L Potassium 3.8 Chloride 97 L Carbon Dioxide 26 Anion Gap 5 BUN 20 H Creatinine 0.70 Estim Creat Clear Calc Not Reportable Estimated GFR > 60 Glucose 184 H POC Capillary Glucose 148 H Calcium 8.4 Phosphorus 2.2 L Magnesium 2.1 Transferrin Total Bilirubin 1.0 AST 26 ALT 15 Alkaline Phosphatase 41 Total Protein 5.2 L Albumin 3.0 L
--- NOTE | 2025-03-10 13:49 | W.PM.PROC2 ---
Procedure Note - Detailed Date of Procedure 03/09/25 Pre-op Diagnosis High-grade recurrent SBO Post-op Diagnosis Same Procedure Performed Exploratory laparotomy with abdominal adhesiolysis Surgeon Rosendo Moore MD Windows System Admin Elizabeth Gurrola NP Anesthesia General Indications the patient is a 80-year-old female who previously had a strangulated segment of small bowel which had to be resected. Approximately 100 cm of small bowel was resected at that time. Over the past 3 months the patient has had 2 other admissions to the hospital for partial small bowel obstructions. CT scans at that time suggested possible transition point at the priorStaple anastomosis. Which is submitted this time she again was having nausea vomiting abdominal pain. Nasogastric tube was placed for NG tube decompression. Small-bowel water-soluble series was done showing dilated loops of small bowel and no passage of contrast into the colon at 5 Hours. Due to her multiple admissions for partial small-bowel obstructions now likely near complete obstruction without evidence of ischemic bowel she is being brought to the operating room for a exploratory laparotomy and possible bowel resection. Findings Surprisingly the patient had no adhesions of the bowel or omentum to the anterior abdominal wall. As around the small bowel to the prior anastomosis I encountered to areas of fibrous adhesions causing constriction of the lumen of the small bowel just prior to the stapled anastomosis. The [id number] staple anastomosis was actually patent and normal. I divided the 2 fibrous adhesions in for least a constriction to the small bowel. I then palpated the area of the constriction and it dilated up and had a movement of the least 1/2 to 2 cm. I felt this was adequate and did not perform a small-bowel resection or revision of the stapled anastomosis. Description of Procedure After informed consent was obtained patient brought to the operating room she was placed supine position and general endotracheal anesthesia was administered. Anesthesia then placed a right internal jugular vein central venous catheter. That part of the procedure will be dictated as per their note. The abdomen was then prepped and draped usual sterile fashion. A time-out was then performed correctly identifying the patient as well as procedure to be performed. She was already on scheduled IV antibiotics. I then made a midline incision through the old midline scar. I did extend the liver further cephalad. Dissection was carried down through the skin with a scalpel and then dissection down through the subcu tissues was done with electrocautery. In the epigastric region of the incision I then divided the midline fascia and entered the abdomen without difficulty. I then opened the midline fascia and mesh into the skin incision. Surprisingly there was no adhesions of the omentum or bowel to the anterior abdominal wall underneath the old incision. I then placed a [place] self retaining retractor to aid with visualization. Once this was done I then ran the small bowel and identified area of constriction just proximal to the stapled anastomosis. These were 2 fibrous bands of tissue causing constriction of the lumen of the small bowel but without twisting of the mesentery. I divided these 2 ends of adhesions with electrocautery and the constriction was released. The segment of small bowel which was constricted was completely viable. The lumen of the small bowel was at least 1 1/2 to 2 cm in diameter and so this was adequate. The stapled anastomosis which was distal to this area of constriction was completely normal. I then completely ran the small bowel from the ligament Treitz distally. There were no other adhesions constricting the bowel. I then palpated the liver there were no masses. The stomach appeared to be normal. I did have the old NG tube removed and new 1 placed and the dilated stomach with fluid and air in it was then completely decompressed. The spleen appeared to be normal. The visualized and palpated areas of the right, transverse, and left colon and sigmoid colon appeared to be without significant abnormalities. I then pulled the omentum down over the small bowel after irrigating with sterile saline solution. I then placed 2 pieces of Seprafilm onto the omentum to decrease adhesions. I then closed the midline fascia utilizing looped 1 PDS suture started at each of the incision. There were then run into the met in the middle just below the umbilicus. The sutures then tied to each other. I then injected 1% lidocaine mixed with 0.5% Marcaine with some epinephrine Underneath the abdominal wall the preperitoneal space prior to closure of the fascia. Subcu tissue then approximated utilizing interrupted 3-0 Vicryl sutures. The skin edges were approximated utilizing a running subcuticular 4-0 Monocryl suture. The incision was then cleaned and then skin glue was applied. The patient tolerated the procedure well no complications. All sponges, needles, and instrument counts were correct at the end procedure. EBL was _20__cc. The patient was awakened and taken to recovery in stable and satisfactory condition. Implants None Estimated Blood Loss 20 Urine Output 500 Drains No Packing No Pathology Yes ( to small 0.5cm nodules on the peritoneum sent to pathology) Complications No immediate complications Condition Stable Disposition PACU [facility] Billing Surgery - Charge Forward: Surgery Billing
--- NOTE | 2025-03-10 13:58 | WPDANESPN ---
Anes - Prog Note Post-Op Date/Time: 03/10/25 13:58 Cardiovascular status: normal Respiratory status: normal Airway patency: baseline Mental status: baseline Post-Op hydration status: normal Vital Signs: Last Vital Signs Temp 96.9 F L 03/10/25 12:00 Pulse 69 03/10/25 12:00 Resp 16 03/10/25 12:00 BP 183/56 H 03/10/25 12:00 Pulse Ox 97 03/10/25 12:00 O2 Del Method Room Air 03/10/25 08:20 O2 Flow Rate 2 03/09/25 17:10 FiO2 21 03/07/25 21:33 Pain Score (VAS): 0/10 I/O: Intake & Output 03/09/25 03/10/25 03/10/25 23:59 07:59 15:59 Intake Total 1304 208 Output Total 350 Balance 1304 -142 Laboratory Tests 03/10/25 06:01 03/10/25 06:01 03/09/25 03/09/25 03/09/25 16:34 18:01 18:34 WBC 19.8 H RBC 3.71 L Hgb 12.0 Hct 35.5 L MCV 95.7 MCH 32.3 MCHC 33.8 RDW 12.4 Plt Count 283 MPV 9.4 Immature Gran % (Auto) 0.7 H Neut % (Auto) 84.3 H Lymph % (Auto) 10.4 L [place] % (Auto) 4.2 Eos % (Auto) 0.2 Baso % (Auto) 0.2 Lymph # (Auto) 2.05 [place] # (Auto) 0.8 H Eos # (Auto) 0.0 Baso # (Auto) 0.0 Abs Immat Gran (auto) 0.13 H Absolute Neuts (auto) 16.7 H Absolute Nucleated RBC 0.000 Nucleated RBC % 0.0 APTT 22.5 Sodium 131 L Potassium 3.3 L Chloride 97 L Carbon Dioxide 24 Anion Gap 10 BUN 14 D Creatinine 0.64 L Estim Creat Clear Calc Not Reportable Estimated GFR > 60 Glucose 162 H POC Capillary Glucose 150 H 180 H Calcium 8.8 Phosphorus Magnesium 1.3 L Transferrin 198 L Total Bilirubin 1.7 H AST 29 ALT 17 Alkaline Phosphatase 53 Total Protein 6.0 L Albumin 3.5 03/09/25 03/10/25 03/10/25 23:08 06:01 11:50 WBC 14.8 H RBC 3.16 L Hgb 10.1 L Hct 29.8 L MCV 94.3 MCH 32.0 MCHC 33.9 RDW 12.4 Plt Count 212 MPV 8.9 Immature Gran % (Auto) 0.5 Neut % (Auto) 77.4 H Lymph % (Auto) 13.5 L [place] % (Auto) 8.3 Eos % (Auto) 0.1 Baso % (Auto) 0.2 Lymph # (Auto) 2.00 [place] # (Auto) 1.2 H Eos # (Auto) 0.0 Baso # (Auto) 0.0 Abs Immat Gran (auto) 0.07 H Absolute Neuts (auto) 11.5 H Absolute Nucleated RBC 0.000 Nucleated RBC % 0.0 APTT Sodium 128 L Potassium 3.8 Chloride 97 L Carbon Dioxide 26 Anion Gap 5 BUN 20 H Creatinine 0.70 Estim Creat Clear Calc Not Reportable Estimated GFR > 60 Glucose 184 H POC Capillary Glucose 253 H 148 H Calcium 8.4 Phosphorus 2.2 L Magnesium 2.1 Transferrin Total Bilirubin 1.0 AST 26 ALT 15 Alkaline Phosphatase 41 Total Protein 5.2 L Albumin 3.0 L Post-procedural complaints: none Patient Feedback: Patient satisfied with anesthetic care.
--- NOTE | 2025-03-10 14:24 | PCPTNOTE ---
Attempted therapy evaluation 14:22, patient adamantly refuses and says Dr. Moore said I could do it tomorrow.
[2025-03-10] MEDS: diazePAM INJ (*CRX) 10 MG/2 ML SYRINGE 2.5 MG IV PUSH ×2 (14:27→20:18)
[2025-03-10] MEDS: CENTRAL LINE FLUSH 10 ML IV PUSH ×2 (14:28→21:49)
[2025-03-10 16:19] LABS: Triglycerides 52 mg/dL (<150)
[2025-03-10] MEDS: AMINO ACIDS 5%/D15W/E-LYTES/CA 1,000 ML with MULTIVITAMINS-12 INJ VIAL 1 1.25 ML, MULTI... 40 ML IV CONT (17:31)
[2025-03-10] MEDS: FAT EMULSIONS IV 20% 250 ML 20.83 ML IVPB (17:32)
--- NOTE | 2025-03-10 22:40 | PC.NURSE ---
Patient is requesting pain medication every two hours scoring pain 9-10. Prior shift nurse administered pain medication prior to leaving. This junior underwriter administered IV Valium as scheduled in the 1999 hr. Patient was very drowsy after administration. Within 1 hr patient was requesting pain medication even though she could hardly keep her eyes open when talking. After assessment, junior underwriter explained to the patient that out of caution she would not administer additional pain medication even though it was due according to the patient until she was more alert. patient became very unhappy with staff and threatened to go somewhere else. She is insistent that Dr Moore wants her to have it. [employer] explained that it was based on my assessment as the nurse. Patient resting at this time and all vitals are within normal limits.
[2025-03-11] VITALS: BP 167/73; PULSE 78; RESP 18; TEMP 36.6; O2SAT 98
[2025-03-11] MEDS: HYDROmorphone HCL INJ (*CRX) 2 MG/ML VIAL 0.5 MG IV PUSH ×9 (00:20→23:37)
[2025-03-11] MEDS: MAG HYDROX/AL HYDROX/SIMETH 30 ML UDC FEED TUBE ×3 (03:01→18:13)
[2025-03-11] MEDS: SODIUM CHLORIDE 0.9% IV 1,000 ML 60 ML IV CONT ×3 (03:06→23:38)
[2025-03-11 04:48] VITALS: BP 140/66
[2025-03-11] MEDS: IBUPROFEN IV 400 MG in SODIUM CHLORIDE 0.9% IV 100 ML 200 MG IVPB ×4 (06:08→23:37)
[2025-03-11] MEDS: LEVOTHYROXINE SODIUM INJ 100 MCG/5 ML VIAL 44 MCG IV PUSH (06:09)
[2025-03-11 06:17] LABS: Hematocrit 32.6 % (37.0-47.0); Hemoglobin 11.0 g/dL (12.0-15.0); Immature Granulocyte Percent A 0.5 % (0-0.5); Lymphocytes Absolute Auto 1.89 K/mm3 (0.9-3.2); Mean Corpuscular HGB Conc 33.7 g/dl (32-36); Mean Corpuscular Hemoglobin 32.0 pg (26-34); Mean Corpuscular Volume 94.8 fl (80-100); Nucleated Red Blood Cells Absolute Auto 0.000 K/mm3 (0.0-0.012); Nucleated Red Blood Cells Perc 0.0 % (0.0-0.2); Platelet Count Result 217 k/mm3 (150-375); Red Blood Count 3.44 M/mm3 (4.2-5.4); White Blood Count 10.2 K/mm3 (4.5-10.0)
[2025-03-11] MEDS: CENTRAL LINE FLUSH 10 ML IV PUSH ×4 (06:39→20:12)
[2025-03-11 06:45] LABS: Alanine Aminotransferase 14 U/L (6-35); Albumin Level 3.1 g/dL (3.5-5.1); Alkaline Phosphatase 47 U/L (38-126); Anion Gap 4 mmol/L (4-12); Aspartate Amino Transferase 37 U/L (14-36); Bilirubin,Total 1.0 mg/dL (0.2-1.3); Blood Urea Nitrogen 14 mg/dL (7-17); Calcium 8.3 mg/dL (8.4-10.2); Carbon Dioxide 30 mmol/L (22-30); Chloride 96 mmol/L (98-107); Estimated Glomerular Filt Rate > 60; Glucose 155 mg/dL (65-110); Potassium 3.3 mmol/L (3.4-5.0); Sodium 130 mmol/L (137-145); Total Protein 5.5 g/dL (6.3-8.2)
--- NOTE | 2025-03-11 07:12 | P.PNIM_ITS ---
Progress Note: A&P Assessment and Plan (1) SBO (small bowel obstruction): Code(s): K56.609 - Unspecified intestinal obstruction, unspecified as to partial versus complete obstruction Status: Acute Assessment and Plan: * CT abdomen/pelvis: * Dilated small bowel loops suggestive of partial versus complete obstruction. * Other appearances are unchanged from previous examination. * bowel rest, NPO. NG place in ED, confirmation via XR * IV fluids: 2L bolus, will hold on further fluids as the patient has history of heart failure with preserved EF * started on Zosyn on 03/06, continued * analgesics p.r.n. * Leukocytosis improving, WBC down from 18.4-12.5 on 03/07 * general surgery consulted * appreciate further recommendations * Water-soluble small-bowel follow-through series today * IV fluid hydration while NPO * Surgical management not rule out at this time, continue to hold Eliquis * Maintain antibiotics, IV fluid hydration, hold Eliquis * Small-bowel follow-through series * no contrast moving to the colon at 5 hours c/w a small bowel obstruction * POD 2 Ex lap for SOB * Improved but still present abdominal pain * NG tube still in place * WBC down to 10.2 * Appreciate further recs from Gen Surg (2) Chronic hyponatremia: Code(s): E87.1 - Hypo-osmolality and hyponatremia Status: Chronic Assessment and Plan: * Na 127, previously 126 on 02/28 * history chronic hyponatremia, present since 2019 * monitor * 03/11: 130 (3) FARTUN (iron deficiency anemia): Qualifiers: Iron deficiency anemia type: chronic blood loss Qualified Code(s): D50.0 - Iron deficiency anemia secondary to blood loss (chronic) Code(s): D50.9 - Iron deficiency anemia, unspecified Status: Chronic Assessment and Plan: * Hgb 13.7 * Hx: FARTUN * transfuse if <7 * trend * 03/11: Hgb 11.0 (4) Type 2 diabetes mellitus: Qualifiers: Diabetes mellitus complication status: without complication Diabetes mellitus long term acute care registered nurse insulin use: without long term acute care registered nurse use Qualified Code(s): E11.9 - Type 2 diabetes mellitus without complications Code(s): E11.9 - Type 2 diabetes mellitus without complications Status: Resolved Assessment and Plan: * hypoglycemia protocol and POC blood glucose Q6H until no longer NPO * history of diabetes, resolved. No longer on medications. * A1C 5.5% on 10/08/2024 (5) Atrial fibrillation: Qualifiers: Atrial fibrillation type: paroxysmal Qualified Code(s): I48.0 - Paroxy smal atrial fibrillation Code(s): I48.91 - Unspecified atrial fibrillation Status: Chronic Assessment and Plan: * history of paroxysmal AFib * EKG, initial, 03/06: sinus rhythm, rate 74, LVH, cannot rule out septal infarct age indeterminate, minimal Q-waves high lateral leads. No significant change compared to EKG done on 02/25. * continue home medications (6) Hypertension: Qualifiers: Hypertension type: primary hypertension Qualified Code(s): I10 - Essential (primary) hypertension Code(s): I10 - Essential (primary) hypertension Status: Chronic Assessment and Plan: * chronic, currently 153/57 * continue home medications * monitor * reviewed and stable Plan Diet: NPO-NG tube GI Prophylaxis: Pantoprazole DVT Prophylaxis: SCDs, Eliquis IV fluids: 2L bolus, no further fluids due to history of HFpEF Lines/Tubes: Peripheral IV, NG tube Code Status: Full code Subjective Date/time seen: 03/11/25 07:12 Interval history: 80 y/o F with PMH of chronic hyponatremia, CAD, DVT, anxiety/depression, HF with preserved EF, HLD, HTN, hypothyroidism, IBS, ELVIRA noncompliant with CPAP, paroxysmal AFib, rheumatoid arthritis, and diabetes presents here with nausea and vomiting. 03/11/2025 POD 2 s/p ex lap with adhesiolysis. NG tube still in place. Still endorsing some abdominal pain near surgical site, but states it has improved since yesterday. Denies chest pain, sob, n/v. Gen Surg still following. Review of Systems Review of Systems: All systems reviewed & are unremarkable except as noted in HPI and below Exam Narrative: ng tube in place Const: General: no acute distress and uncomfortable Other: , female, elderly, diffuse discomfort HENMT: Face/Nose/Sinus: Normal nares present Mouth: Yes moist mucous membranes Other: NG in place to right nare Eyes: General: appearance normal, both eyes and all related structures Sclera: sclerae normal Pupils: Equal, round and reactive pupils present EOM: EOMs intact bilaterally Resp: Effort & Inspection: normal respiratory effort Auscultation: clear to auscultation bilaterally Cardio: Rate: regular rate Rhythm: regular rhythm Other: S1-S2 present without murmur, rub, ectopy GI: Other: Hyperactive bowel sounds in all quadrants, mild tenderness that is diffuse, abdomen soft Skin: General skin exam: normal color and no rashes or lesions noted Wounds: no wounds Neuro: Cranial nerves: Yes Equal, round and reactive pupils present Speech: normal speech Motor exam (neuro): 5/5 motor strength present throughout Sensory Exam: normal sensation Other: A&O x4 Extrem: General: normal to inspection Psych: Mental Status: mental status grossly normal Affect: Anxious affect present Other: Patient tearful, restless, fair insight and judgment. Objective Data Vital Signs Vital Signs: Vital Signs - 24 hr 03/10/25 08:00 03/10/25 08:20 03/10/25 12:00 Temperature 98.1 F 96.9 F L Pulse Rate 63 69 Respiratory Rate 18 16 Blood Pressure 130/58 L 183/56 H Pulse Oximetry 96 97 Oxygen Delivery Room Air 03/10/25 16:00 03/10/25 20:00 03/10/25 22:17 Temperature 97.9 F 98.2 F Pulse Rate 62 71 Respiratory Rate 16 18 Blood Pressure 137/91 H 184/65 H Pulse Oximetry 95 97 97 Oxygen Delivery Room Air 03/11/25 00:00 03/11/25 04:48 Temperature 98 F Pulse Rate 78 Respiratory Rate 18 Blood Pressure 167/73 H 140/66 Pulse Oximetry 98 Oxygen Delivery Intake/Output Intake/Output: Intake & Output 03/08/25 03/09/25 03/10/25 03/11/25 23:59 23:59 23:59 23:59 Intake Total 2450.0 3604 1634 1068 Output Total 2950 400 1100 2700 Balance -500.0 3204 534 1632 Meds/Results Medications: Active Medications Generic Name Dose Route Start Last Admin Trade Name Freq PRN Reason Stop Dose Admin Acetaminophen 650 mg 03/06/25 16:19 Acetaminophen 650 Mg Suppository RECTAL Q6H PRN Mild Pain (1-3) or Fever Al Hydrox/Mg Hydrox/Simethicone 30 ml 03/07/25 10:15 03/11/25 03:01 Mag Hydrox/Al Hydrox/Simeth 30 Ml Udc FEED TUBE 30 ml Q8H GINO Administration Dextrose 12.5 gm 03/06/25 16:19 03/09/25 13:11 Dextrose 50% 25 Gm/50 Ml Syringe IV PUSH 12.5 gm PRN PRN Administration Hypoglycemia Protocol Diazepam 2.5 mg 03/10/25 12:45 03/10/25 20:18 Diazepam Inj (*Crx) 10 Mg/2 Ml Syringe IV PUSH 2.5 mg Q12HR GINO Administration Enoxaparin Sodium 40 mg 03/10/25 09:00 03/10/25 08:18 Enoxaparin 40 Mg/0.4 Ml Syringe SUB-Q 40 mg DAILY GINO Administration Famotidine 20 mg 03/07/25 21:00 03/10/25 20:18 Famotidine 20 Mg/2 Ml Vial IV PUSH 20 mg Q12HR GINO Administration Glucagon 1 mg 03/06/25 16:19 Glucagon For Inj 1 Mg Vial IM PRN PRN Hypoglycemia Protocol Glucose 15 gm 03/06/25 16:19 Glucose Oral Gel 15 Gm Of Glucse In 37.5 Gm Tube PO PRN PRN Hypoglycemia Protocol Hydromorphone HCl 0.5 mg 03/10/25 09:53 03/11/25 06:30 Hydromorphone Hcl Inj (*Crx) 2 Mg/Ml Vial IV PUSH 0.5 mg Q2HR PRN Administration Pain Rated 8-10 Dextrose 1,000 mls @ 100 mls/hr 03/06/25 16:19 Dextrose 5% 1,000 Ml IVPB PRN PRN Hypoglycemia Protocol Dextrose 1,000 mls @ 50 mls/hr 03/09/25 17:21 Dextrose 10% IV CONT .Q20H PRN if PN is interrupted Multivitamins 1.25 ml/ 1,002.5 mls @ 40 mls/hr 03/09/25 18:30 03/10/25 17:31 Multivitamins 1.25 ml/ Amino IV CONT 40 mls/hr Acids/Electrolytes/Dextrose .Q24H GINO Administration Protocol Fat Emulsion Intravenous 250 mls @ 20.833 mls/hr 03/09/25 18:30 03/10/25 17:32 Lipids 20% IVPB 20.83 mls/hr Q24H GINO Administration Ibuprofen 400 mg/ Sodium 104 mls @ 200 mls/hr 03/09/25 18:00 03/11/25 06:08 Chloride IVPB 200 mls/hr Q6HR GINO Administration Sodium Chloride 1,000 mls @ 60 mls/hr 03/10/25 08:45 03/11/25 04:13 Normal Saline Iv IV CONT 60 mls/hr .[id number] GINO Administration Insulin Aspart 2 - 5 units 03/10/25 00:00 03/11/25 00:15 Insulin Aspart (*Bkc) 100 Units/Ml SUB-Q Not Given Q6HR [facility] Protocol Levothyroxine Sodium 44 mcg 03/08/25 06:30 03/11/25 06:09 Levothyroxine Sodium Inj 100 Mcg/5 Ml Vial IV PUSH 44 mcg DAILY@0630 GINO Administration Lidocaine 1 patch 03/10/25 09:00 03/10/25 08:18 Lidocaine 5% Patch TRANSDERM 1 patch DAILY GINO Administration Morphine Sulfate 2 mg 03/09/25 19:28 03/10/25 05:04 Morphine Sulfate (*Crx) 2 Mg/Ml Inj IV PUSH 2 mg Q4H PRN Administration Pain Rated 4-7 Naloxone HCl 0.1 mg 03/06/25 16:20 Naloxone Hcl 0.4 Mg/Ml Vial IV PUSH Q5MIN PRN Sedation Ondansetron HCl 4 mg 03/08/25 04:20 03/08/25 04:33 Ondansetron Inj 4 Mg/2 Ml Vial IV PUSH 4 mg Q6H PRN Administration Nausea And Vomiting Ondansetron HCl 4 mg 03/09/25 13:48 Ondansetron Inj 4 Mg/2 Ml Vial IV PUSH ONCE PRN Nausea Sodium Chloride 10 ml 03/10/25 06:56 Central Line Flush IV PUSH PRN PRN with TPN bag changes Sodium Chloride 10 ml 03/10/25 14:00 03/11/25 06:39 Central Line Flush IV PUSH 10 ml Q8HR GINO Administration Sodium Chloride 20 ml 03/10/25 06:56 Central Line Flush IV PUSH PRN PRN after blood draws Radiology Results: ITS Impressions Abdomen/Pelvis CT 03/06/25 14:15 IMPRESSION: 1. Dilated small bowel loops suggestive of partial versus complete obstruction. 2. Other appearances are unchanged from previous examination. Small Bowel X-Ray 03/07/25 17:39 IMPRESSION: 1. Slow progression of contrast through several loops of dilated small bowel in the central abdomen with no contrast in colon by 5 hours consistent with a small bowel obstruction. 2. Small to moderate-sized sliding-type hiatal hernia with gastroesophageal reflux. Chest X-Ray 03/09/25 16:41 IMPRESSION: Highly suggestive air under the right hemidiaphragm. Clinical correlation and repeat exam is advised. No acute cardiopulmonary pathology. Supporting lines as described above. Nurse Cherie was notified with the result of the patient at 4:45 PM on March 09, 2025 Abdomen X-Ray 03/09/25 17:41 IMPRESSION: Nasogastric tube presumably in good position and ready for immediate use. Labs Labs: Laboratory Results - last 24 hr 03/10/25 03/10/25 03/10/25 06:01 11:50 16:52 WBC RBC Hgb Hct MCV MCH MCHC RDW Plt Count MPV Immature Gran % (Auto) Neut % (Auto) Lymph % (Auto) Ramsey % (Auto) Eos % (Auto) Baso % (Auto) Lymph # (Auto) Ramsey # (Auto) Eos # (Auto) Baso # (Auto) Abs Immat Gran (auto) Absolute Neuts (auto) Absolute Nucleated RBC Nucleated RBC % Sodium Potassium Chloride Carbon Dioxide Anion Gap BUN Creatinine Estim Creat Clear Calc Estimated GFR Glucose POC Capillary Glucose 148 H 124 H Calcium Phosphorus Total Bilirubin AST ALT Alkaline Phosphatase Total Protein Albumin Triglycerides 52 03/11/25 03/11/25 03/11/25 00:07 05:59 06:48 WBC 10.2 H RBC 3.44 L Hgb 11.0 L Hct 32.6 L MCV 94.8 MCH 32.0 MCHC 33.7 RDW 12.5 Plt Count 217 MPV 9.1 Immature Gran % (Auto) 0.5 Neut % (Auto) 73.6 H Lymph % (Auto) 18.5 Ramsey % (Auto) 6.7 Eos % (Auto) 0.4 Baso % (Auto) 0.3 Lymph # (Auto) 1.89 Ramsey # (Auto) 0.7 H Eos # (Auto) 0.0 Baso # (Auto) 0.0 Abs Immat Gran (auto) 0.05 H Absolute Neuts (auto) 7.5 H Absolute Nucleated RBC 0.000 Nucleated RBC % 0.0 Sodium 130 L Potassium 3.3 L Chloride 96 L Carbon Dioxide 30 Anion Gap 4 BUN 14 D Creatinine 0.58 L Estim Creat Clear Calc Not Reportable Estimated GFR > 60 Glucose 155 H POC Capillary Glucose 162 H 181 H Calcium 8.3 L Phosphorus 2.7 Total Bilirubin 1.0 AST 37 H ALT 14 Alkaline Phosphatase 47 Total Protein 5.5 L Albumin 3.1 L Triglycerides Quality VTE Prophylaxis VTE prophylaxis: mechanical ordered
[2025-03-11] MEDS: LIDOCAINE 5% PATCH 1 PATCH TRANSDERM (09:13)
[2025-03-11] MEDS: ENOXAPARIN 40 MG/0.4 ML SYRINGE SUB-Q (09:13)
[2025-03-11] MEDS: FAMOTIDINE 20 MG/2 ML VIAL IV PUSH ×2 (09:21→20:12)
[2025-03-11] MEDS: diazePAM INJ (*CRX) 10 MG/2 ML SYRINGE 2.5 MG IV PUSH (10:46)
--- NOTE | 2025-03-11 11:17 | PCNFU ---
Nutrition Follow-Up Complete: Altered GI function as related to SBO as evidenced by NPO, need for TPN Meet estimated nutritional needs Goal: Pt current nutrition is Clinmix E 01/27 with lipids @ 40 ml/h. Nutrition recommendation: No new recommendations. Can advance TPn to 50 ml/h to better meet estimated needs. Diet advancement per MD Last recorded weight is 56.9 kg. Bowel Motility: No BMs are recorded Labs Reviewed: Hgb 11, Hct 32.6, Alb 3.1, Na 130, K+ 3.3, Cre 0.58, Glu 155 Meds Noted: TPN, Pepcid, Zofran, NS Skin: WNL Additional Notes:P t with exploratory lap and lysis of adhesions 03/09. TPN is running and being tolerated well. Clinmic E 5/15 @ 40 provides 1182 kcal, 48 g protein, 1210 ml total volume. Meets needs @ 20 kcal/kg, 0.8 g protein/kg. Not adequate for needs but agree with lower rate for present. Can advance if not able to advance to PO within 3 days. Will monitor TPN tolerance, weight, labs, skin, diet order, meds every Friday/ Friday
--- NOTE | 2025-03-11 11:24 | P.PNGS_ITS ---
Progress Note: A&P Assessment and Plan (1) SBO (small bowel obstruction): Code(s): K56.609 - Unspecified intestinal obstruction, unspecified as to partial versus complete obstruction Status: Acute Assessment and Plan: * POD2 s/p ex lap with adhesiolysis. Patient states that pain is less, however, she is still requiring Dilaudid q2. Incision is clean and dry with no signs of infection. WBC 10.2, down from 14.8. Patient experienced altered mental status with Valium Q12, so it will be switched to Q24. Continue Dilaudid 0.5 mg every 2 hours PRN. Continue ibuprofen Q6H. Continue to monitor with serial abdominal exams. Continue TPN for now. (2) Leukocytosis: Code(s): D72.829 - Elevated white blood cell count, unspecified Status: Acute Assessment and Plan: * WBC down to 10.2 today. Continue to monitor. This is likely related to her bowel obstruction and recent surgery. (3) Type 2 diabetes mellitus: Qualifiers: Diabetes mellitus [facility] insulin use: without [facility] use Diabetes mellitus complication status: without complication Qualified Code(s): E11.9 - Type 2 diabetes mellitus without complications Code(s): E11.9 - Type 2 diabetes mellitus without complications Status: Resolved Assessment and Plan: * Controlled on last hgb A1C in September. Management per Hospitalist. (4) Chronic anticoagulation: Code(s): Z79.01 - roasterman (current) use of anticoagulants Status: Chronic Assessment and Plan: * Continue to hold Eliquis until patient is taking orals. (5) Paroxysmal A-fib: Code(s): I48.0 - Paroxysmal atrial fibrillation Status: Acute Assessment and Plan: * Patient has a history of paroxysmal afib and was recently evaluated by Cardiology on 03/02/25. 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 (6) Carotid artery stenosis: Code(s): I65.29 - Occlusion and stenosis of unspecified carotid artery Status: Acute (7) Heart failure with preserved ejection fraction: Qualifiers: Heart failure chronicity: chronic Qualified Code(s): I50.32 - Chronic diastolic (congestive) heart failure Code(s): I50.30 - Unspecified diastolic (congestive) heart failure Status: Acute (8) Chronic, continuous use of opioids: Code(s): F11.90 - Opioid use, unspecified, uncomplicated Status: Acute Assessment and Plan: * Chronic opioid use could make postoperative pain control difficult. Plan I have discussed the patient's case and plan of care with Dr. Moore. Subjective Subjective Date/Time Seen: 03/11/25 11:24 Post Op day: 2 Patient reports: still having pain and pain is less Interval history: Patient states that pain is less today, however, she is still requiring Dilaudid every 2 hours. She was able to get up in chair today. No BM or flatus yet. NG tube draining small amounts of bilious fluid. Nurse reports that Valium gave patient altered mental status when given with Dilaudid. Exam GI: Inspection: non-distended and no visible herniation Auscultation: abnormal bowel sounds (hypoactive) and absent bowel sounds Other: Tenderness to palpation of epigastric region. Incision is clean and dry with no areas of dehiscence, purulence, or necrosis. Objective Data Vital Signs Vital Signs: Vital Signs - 24 hr 03/10/25 12:00 03/10/25 16:00 03/10/25 20:00 Temperature 96.9 F L 97.9 F 98.2 F Pulse Rate 69 62 71 Respiratory Rate 16 16 18 Blood Pressure 183/56 H 137/91 H 184/65 H Pulse Oximetry 97 95 97 Oxygen Delivery 03/10/25 22:17 03/11/25 00:00 03/11/25 04:48 Temperature 98 F Pulse Rate 78 Respiratory Rate 18 Blood Pressure 167/73 H 140/66 Pulse Oximetry 97 98 Oxygen Delivery Room Air 03/11/25 09:27 03/11/25 09:53 Temperature Pulse Rate Respiratory Rate Blood Pressure Pulse Oximetry Oxygen Delivery Room Air Room Air Intake/Output Intake/Output: Intake & Output 03/08/25 03/09/25 03/10/25 03/11/25 23:59 23:59 23:59 23:59 Intake Total 2450.0 3604 1634 1068 Output Total 2950 400 1100 2700 Balance -500.0 3204 534 1632 Meds/Results Medications: Active Medications Generic Name Dose Route Start Last Admin Trade Name Freq PRN Reason Stop Dose Admin Acetaminophen 650 mg 03/06/25 16:19 Acetaminophen 650 Mg Suppository RECTAL Q6H PRN Mild Pain (1-3) or Fever Al Hydrox/Mg Hydrox/Simethicone 30 ml 03/07/25 10:15 03/11/25 10:46 Mag Hydrox/Al Hydrox/Simeth 30 Ml Udc FEED TUBE 30 ml Q8H GINO Administration Dextrose 12.5 gm 03/06/25 16:19 03/09/25 13:11 Dextrose 50% 25 Gm/50 Ml Syringe IV PUSH 12.5 gm PRN PRN Administration Hypoglycemia Protocol Diazepam 2.5 mg 03/12/25 09:00 Diazepam Inj (*Crx) 10 Mg/2 Ml Syringe IV PUSH DAILY GINO Enoxaparin Sodium 40 mg 03/10/25 09:00 03/11/25 09:13 Enoxaparin 40 Mg/0.4 Ml Syringe SUB-Q 40 mg DAILY GINO Administration Famotidine 20 mg 03/07/25 21:00 03/11/25 09:21 Famotidine 20 Mg/2 Ml Vial IV PUSH 20 mg Q12HR GINO Administration Glucagon 1 mg 03/06/25 16:19 Glucagon For Inj 1 Mg Vial IM PRN PRN Hypoglycemia Protocol Glucose 15 gm 03/06/25 16:19 Glucose Oral Gel 15 Gm Of Glucse In 37.5 Gm Tube PO PRN PRN Hypoglycemia Protocol Hydromorphone HCl 0.5 mg 03/10/25 09:53 03/11/25 09:12 Hydromorphone Hcl Inj (*Crx) 2 Mg/Ml Vial IV PUSH 0.5 mg Q2HR PRN Administration Pain Rated 8-10 Dextrose 1,000 mls @ 100 mls/hr 03/06/25 16:19 Dextrose 5% 1,000 Ml IVPB PRN PRN Hypoglycemia Protocol Dextrose 1,000 mls @ 50 mls/hr 03/09/25 17:21 Dextrose 10% IV CONT .Q20H PRN if PN is interrupted Multivitamins 1.25 ml/ 1,002.5 mls @ 40 mls/hr 03/09/25 18:30 03/10/25 17:31 Multivitamins 1.25 ml/ Amino IV CONT 40 mls/hr Acids/Electrolytes/Dextrose .Q24H GINO Administration Protocol Fat Emulsion Intravenous 250 mls @ 20.833 mls/hr 03/09/25 18:30 03/10/25 17:32 Lipids 20% IVPB 20.83 mls/hr Q24H GINO Administration Ibuprofen 400 mg/ Sodium 104 mls @ 200 mls/hr 03/09/25 18:00 03/11/25 06:08 Chloride IVPB 200 mls/hr Q6HR GINO Administration Sodium Chloride 1,000 mls @ 60 mls/hr 03/10/25 08:45 03/11/25 04:13 Normal Saline Iv IV CONT 60 mls/hr .[id number] GINO Administration Insulin Aspart 2 - 5 units 03/10/25 00:00 03/11/25 09:05 Insulin Aspart (*Bkc) 100 Units/Ml SUB-Q Not Given Q6HR [facility] Protocol Levothyroxine Sodium 44 mcg 03/08/25 06:30 03/11/25 06:09 Levothyroxine Sodium Inj 100 Mcg/5 Ml Vial IV PUSH 44 mcg DAILY@0630 GINO Administration Lidocaine 1 patch 03/10/25 09:00 03/11/25 09:13 Lidocaine 5% Patch TRANSDERM 1 patch DAILY GINO Administration Morphine Sulfate 2 mg 03/09/25 19:28 03/10/25 05:04 Morphine Sulfate (*Crx) 2 Mg/Ml Inj IV PUSH 2 mg Q4H PRN Administration Pain Rated 4-7 Naloxone HCl 0.1 mg 03/06/25 16:20 Naloxone Hcl 0.4 Mg/Ml Vial IV PUSH Q5MIN PRN Sedation Ondansetron HCl 4 mg 03/08/25 04:20 03/08/25 04:33 Ondansetron Inj 4 Mg/2 Ml Vial IV PUSH 4 mg Q6H PRN Administration Nausea And Vomiting Ondansetron HCl 4 mg 03/09/25 13:48 Ondansetron Inj 4 Mg/2 Ml Vial IV PUSH ONCE PRN Nausea Sodium Chloride 10 ml 03/10/25 06:56 Central Line Flush IV PUSH PRN PRN with TPN bag changes Sodium Chloride 10 ml 03/10/25 14:00 03/11/25 06:39 Central Line Flush IV PUSH 10 ml Q8HR GINO Administration Sodium Chloride 20 ml 03/10/25 06:56 Central Line Flush IV PUSH PRN PRN after blood draws Radiology Results: ITS Impressions Abdomen/Pelvis CT 03/06/25 14:15 IMPRESSION: 1. Dilated small bowel loops suggestive of partial versus complete obstruction. 2. Other appearances are unchanged from previous examination. Small Bowel X-Ray 03/07/25 17:39 IMPRESSION: 1. Slow progression of contrast through several loops of dilated small bowel in the central abdomen with no contrast in colon by 5 hours consistent with a small bowel obstruction. 2. Small to moderate-sized sliding-type hiatal hernia with gastroesophageal reflux. Chest X-Ray 03/09/25 16:41 IMPRESSION: Highly suggestive air under the right hemidiaphragm. Clinical correlation and repeat exam is advised. No acute cardiopulmonary pathology. Supporting lines as described above. Nurse Cherie was notified with the result of the patient at 4:45 PM on March 09, 2025 Abdomen X-Ray 03/09/25 17:41 IMPRESSION: Nasogastric tube presumably in good position and ready for immediate use. Labs Labs: Laboratory Results - last 24 hr 03/10/25 03/10/25 03/10/25 06:01 11:50 16:52 WBC RBC Hgb Hct MCV MCH MCHC RDW Plt Count MPV Immature Gran % (Auto) Neut % (Auto) Lymph % (Auto) Maries % (Auto) Eos % (Auto) Baso % (Auto) Lymph # (Auto) Maries # (Auto) Eos # (Auto) Baso # (Auto) Abs Immat Gran (auto) Absolute Neuts (auto) Absolute Nucleated RBC Nucleated RBC % Sodium Potassium Chloride Carbon Dioxide Anion Gap BUN Creatinine Estim Creat Clear Calc Estimated GFR Glucose POC Capillary Glucose 148 H 124 H Calcium Phosphorus Total Bilirubin AST ALT Alkaline Phosphatase Total Protein Albumin Triglycerides 52 03/11/25 03/11/25 03/11/25 00:07 05:59 06:48 WBC 10.2 H RBC 3.44 L Hgb 11.0 L Hct 32.6 L MCV 94.8 MCH 32.0 MCHC 33.7 RDW 12.5 Plt Count 217 MPV 9.1 Immature Gran % (Auto) 0.5 Neut % (Auto) 73.6 H Lymph % (Auto) 18.5 Maries % (Auto) 6.7 Eos % (Auto) 0.4 Baso % (Auto) 0.3 Lymph # (Auto) 1.89 Maries # (Auto) 0.7 H Eos # (Auto) 0.0 Baso # (Auto) 0.0 Abs Immat Gran (auto) 0.05 H Absolute Neuts (auto) 7.5 H Absolute Nucleated RBC 0.000 Nucleated RBC % 0.0 Sodium 130 L Potassium 3.3 L Chloride 96 L Carbon Dioxide 30 Anion Gap 4 BUN 14 D Creatinine 0.58 L Estim Creat Clear Calc Not Reportable Estimated GFR > 60 Glucose 155 H POC Capillary Glucose 162 H 181 H Calcium 8.3 L Phosphorus 2.7 Total Bilirubin 1.0 AST 37 H ALT 14 Alkaline Phosphatase 47 Total Protein 5.5 L Albumin 3.1 L Triglycerides
[2025-03-11 13:30] VITALS: BP 133/65; PULSE 68; RESP 16; TEMP 36.2; O2SAT 100
[2025-03-11] MEDS: AMINO ACIDS 5%/D15W/E-LYTES/CA 1,000 ML with MULTIVITAMINS-12 INJ VIAL 1 1.25 ML, MULTI... 40 ML IV CONT (18:09)
[2025-03-11] MEDS: FAT EMULSIONS IV 20% 250 ML 20.83 ML IVPB (18:10)
[2025-03-11 18:52] VITALS: BP 141/67; PULSE 75; RESP 16; TEMP 36.2; O2SAT 99
[2025-03-11 20:30] VITALS: BP 149/72; PULSE 74; RESP 18; TEMP 36.5; O2SAT 96
[2025-03-12 00:42] VITALS: BP 159/75; PULSE 73; RESP 18; TEMP 36.9; O2SAT 96
[2025-03-12] MEDS: HYDROmorphone HCL INJ (*CRX) 2 MG/ML VIAL 0.5 MG IV PUSH ×5 (03:49→20:56)
[2025-03-12 06:00] VITALS: BP 154/69; PULSE 70; RESP 18; TEMP 36.8; O2SAT 96
[2025-03-12] MEDS: CENTRAL LINE FLUSH 10 ML IV PUSH ×3 (06:04→20:55)
[2025-03-12] MEDS: LEVOTHYROXINE SODIUM INJ 100 MCG/5 ML VIAL 44 MCG IV PUSH (06:04)
[2025-03-12] MEDS: IBUPROFEN IV 400 MG in SODIUM CHLORIDE 0.9% IV 100 ML 200 MG IVPB ×3 (06:08→17:17)
[2025-03-12 06:22] LABS: Hematocrit 33.7 % (37.0-47.0); Hemoglobin 11.1 g/dL (12.0-15.0); Immature Granulocyte Percent A 0.5 % (0-0.5); Lymphocytes Absolute Auto 2.01 K/mm3 (0.9-3.2); Mean Corpuscular HGB Conc 32.9 g/dl (32-36); Mean Corpuscular Hemoglobin 31.7 pg (26-34); Mean Corpuscular Volume 96.3 fl (80-100); Nucleated Red Blood Cells Absolute Auto 0.000 K/mm3 (0.0-0.012); Nucleated Red Blood Cells Perc 0.0 % (0.0-0.2); Platelet Count Result 208 k/mm3 (150-375); Red Blood Count 3.50 M/mm3 (4.2-5.4); White Blood Count 8.1 K/mm3 (4.5-10.0)
[2025-03-12 06:30] LABS: Alanine Aminotransferase 14 U/L (6-35); Albumin Level 3.0 g/dL (3.5-5.1); Alkaline Phosphatase 45 U/L (38-126); Anion Gap 3 mmol/L (4-12); Aspartate Amino Transferase 28 U/L (14-36); Bilirubin,Total 0.8 mg/dL (0.2-1.3); Blood Urea Nitrogen 14 mg/dL (7-17); Calcium 8.5 mg/dL (8.4-10.2); Carbon Dioxide 31 mmol/L (22-30); Chloride 98 mmol/L (98-107); Estimated Glomerular Filt Rate > 60; Glucose 148 mg/dL (65-110); Potassium 3.2 mmol/L (3.4-5.0); Sodium 132 mmol/L (137-145); Total Protein 5.6 g/dL (6.3-8.2)
--- NOTE | 2025-03-12 07:45 | P.PNIM_ITS ---
Progress Note: A&P Assessment and Plan (1) SBO (small bowel obstruction): Code(s): K56.609 - Unspecified intestinal obstruction, unspecified as to partial versus complete obstruction Status: Acute Assessment and Plan: * CT abdomen/pelvis: * Dilated small bowel loops suggestive of partial versus complete obstruction. * Other appearances are unchanged from previous examination. * bowel rest, NPO. NG place in ED, confirmation via XR * IV fluids: 2L bolus, will hold on further fluids as the patient has history of heart failure with preserved EF * started on Zosyn on 03/06, continued * analgesics p.r.n. * Leukocytosis improving, WBC down from 18.4-12.5 on 03/07 * general surgery consulted * appreciate further recommendations * Water-soluble small-bowel follow-through series today * IV fluid hydration while NPO * Surgical management not rule out at this time, continue to hold Eliquis * Maintain antibiotics, IV fluid hydration, hold Eliquis * Small-bowel follow-through series * no contrast moving to the colon at 5 hours c/w a small bowel obstruction * POD 2 Ex lap for SOB * Improved but still present abdominal pain * NG tube still in place * WBC down to 10.2 * Appreciate further recs from Gen Surg POD 3 Ex lap for SOB * - Patient up to chair working with therapy, c/o pain persisting although more chronic concerns than acute currently. * - Patient up to chair working with therapy, c/o pain persisting although more chronic concerns than acute currently. * - Appreciate General surgery recs. (2) Chronic hyponatremia: Code(s): E87.1 - Hypo-osmolality and hyponatremia Status: Chronic Assessment and Plan: * Na 127, previously 126 on 02/28 * history chronic hyponatremia, present since 2018 * monitor * 03/11: 130 * 03/12: Stable at 132. (3) FARTUN (iron deficiency anemia): Qualifiers: Iron deficiency anemia type: chronic blood loss Qualified Code(s): D50.0 - Iron deficiency anemia secondary to blood loss (chronic) Code(s): D50.9 - Iron deficiency anemia, unspecified Status: Chronic Assessment and Plan: * Hgb 13.7 * Hx: FARTUN * transfuse if <7 * trend * 03/11: Hgb 11.0 * 03/12: Stable hgb 11.1. (4) Type 2 diabetes mellitus: Qualifiers: Diabetes mellitus complication status: without complication Diabetes mellitus chcf insulin use: without long term care administrator use Qualified Code(s): E11.9 - Type 2 diabetes mellitus without complications Code(s): E11.9 - Type 2 diabetes mellitus without complications Status: Resolved Assessment and Plan: * hypoglycemia protocol and POC blood glucose Q6H until no longer NPO * history of diabetes, resolved. No longer on medications. * A1C 5.5% on 10/08/2024 * Cont. POC accuchecks until tolerating diet. (5) Atrial fibrillation: Qualifiers: Atrial fibrillation type: paroxysmal Qualified Code(s): I48.0 - Paroxysmal atrial fibrillation Code(s): I48.91 - Unspecified atrial fibrillation Status: Chronic Assessment and Plan: * history of paroxysmal AFib * EKG, initial, 03/06: sinus rhythm, rate 74, LVH, cannot rule out septal infarct age indeterminate, minimal Q-waves high lateral leads. No significant change compared to EKG done on 02/25. * continue home medications * 03/12: Stable rate. Stable on exam. * 03/12: Resume apixaban at surgeon discretion. (6) Hypertension: Qualifiers: Hypertension type: primary hypertension Qualified Code(s): I10 - Essential (primary) hypertension Code(s): I10 - Essential (primary) hypertension Status: Chronic Assessment and Plan: * chronic, currently 153/57 * continue home medications * monitor * reviewed and stable * 03/12: Persistent stability. Plan 03/12: Patient complains of persistent chronic pain acutely worsened d/t weather change. Hx RA. Will increase morphine to 4mg and space out hydromorphone PRN to 3hours. WIll add IV APAP scheduled for 24 hours to ascertain efficacy if formulary available. The ibuprofen IV already on board is a good baseline addition for antiinflammatory effect. Diet: NPO-NG tube GI Prophylaxis: Pantoprazole DVT Prophylaxis: SCDs, (eliquis on hold) Code Status: Full code Time Spent With Patient Time with patient: 25 - 35 minutes Subjective Date/time seen: 03/12/25 07:45 Interval history: Sharona states her pain is her largest concern this am. States when getting up to chair pain nearly unbearable. Pain is acute on chronic, moreso in the back currently, but abdominal surgical site still uncomfortable. Review of Systems Review of Systems: No new ROS findings. All systems reviewed & are unremarkable except as noted in HPI and below Exam Narrative: GENERAL APPEARANCE: Appears to be in no acute distress. HEAD: normocephalic atraumatic EYES: Vision grossly intact. ENT: Hearing grossly intact, no nasal discharge NECK: Neck supple, trachea midline. CARDIAC: Normal S1/S2. Rhythm is regular. No murmurs, rubs, or gallops. No cyanosis or pallor. Extremities are warm and well perfused. LUNGS: Clear to auscultation without rales, rhonchi, wheezing or diminished breath sounds. Respirations even and unlabored. ABDOMEN: BS positive x 4 quadrants. Soft, nondistended. Midline abdominal incision well approximated NG in place. MSK:fair strength in all extremities. PERIPHERAL VASCULAR: Normal perfusion,No edema. NEURO: Follows commands. No focal deficits. SKIN: Tropic without lesions or eruptions. Right IJ CVD dressing c/d/i. PSYCH: Stable, no paranoia or delusional thinking. Objective Data Vital Signs Vital Signs: Vital Signs - 24 hr 03/11/25 09:27 03/11/25 09:53 03/11/25 11:58 Temperature Pulse Rate Respiratory Rate Blood Pressure Pulse Oximetry Oxygen Delivery Room Air Room Air Room Air 03/11/25 13:30 03/11/25 18:52 03/11/25 20:00 Temperature 97.2 F L 97.2 F L Pulse Rate 68 75 Respiratory Rate 16 16 Blood Pressure 133/65 141/67 H Pulse Oximetry 100 99 Oxygen Delivery Room Air 03/11/25 20:30 03/12/25 00:42 03/12/25 06:00 Temperature 97.7 F 98.4 F 98.2 F Pulse Rate 74 73 70 Respiratory Rate 18 18 18 Blood Pressure 149/72 H 159/75 H 154/69 H Pulse Oximetry 96 96 96 Oxygen Delivery Intake/Output Intake/Output: Intake & Output 03/09/25 03/10/25 03/11/25 03/12/25 23:59 23:59 23:59 23:59 Intake Total 3604 1634 3835.3 104 Output Total 400 1100 3450 1900 Balance 3204 534 385.3 -1796 Meds/Results Medications: Active Medications Generic Name Dose Route Start Last Admin Trade Name Freq PRN Reason Stop Dose Admin Acetaminophen 650 mg 03/06/25 16:19 Acetaminophen 650 Mg Suppository RECTAL Q6H PRN Mild Pain (1-3) or Fever Al Hydrox/Mg Hydrox/Simethicone 30 ml 03/07/25 10:15 03/12/25 03:50 Mag Hydrox/Al Hydrox/Simeth 30 Ml Udc FEED TUBE Not Given Q8H GINO Bisacodyl 10 mg 03/12/25 09:00 Bisacodyl 10 Mg Suppository RECTAL QAM GINO Dextrose 12.5 gm 03/06/25 16:19 03/09/25 13:11 Dextrose 50% 25 Gm/50 Ml Syringe IV PUSH 12.5 gm PRN PRN Administration Hypoglycemia Protocol Diazepam 2.5 mg 03/12/25 09:00 Diazepam Inj (*Crx) 10 Mg/2 Ml Syringe IV PUSH DAILY GINO Enoxaparin Sodium 40 mg 03/10/25 09:00 03/11/25 09:13 Enoxaparin 40 Mg/0.4 Ml Syringe SUB-Q 40 mg DAILY GINO Administration Famotidine 20 mg 03/07/25 21:00 03/11/25 20:12 Famotidine 20 Mg/2 Ml Vial IV PUSH 20 mg Q12HR GINO Administration Glucagon 1 mg 03/06/25 16:19 Glucagon For Inj 1 Mg Vial IM PRN PRN Hypoglycemia Protocol Glucose 15 gm 03/06/25 16:19 Glucose Oral Gel 15 Gm Of Glucse In 37.5 Gm Tube PO PRN PRN Hypoglycemia Protocol Hydromorphone HCl 0.5 mg 03/10/25 09:53 03/12/25 03:49 Hydromorphone Hcl Inj (*Crx) 2 Mg/Ml Vial IV PUSH 0.5 mg Q2HR PRN Administration Pain Rated 8-10 Dextrose 1,000 mls @ 100 mls/hr 03/06/25 16:19 Dextrose 5% 1,000 Ml IVPB PRN PRN Hypoglycemia Protocol Dextrose 1,000 mls @ 50 mls/hr 03/09/25 17:21 Dextrose 10% IV CONT .Q20H PRN if PN is interrupted Multivitamins 1.25 ml/ 1,002.5 mls @ 40 mls/hr 03/09/25 18:30 03/11/25 18:09 Multivitamins 1.25 ml/ Amino IV CONT 40 mls/hr Acids/Electrolytes/Dextrose .Q24H GINO Administration Protocol Fat Emulsion Intravenous 250 mls @ 20.833 mls/hr 03/09/25 18:30 03/11/25 18:10 Lipids 20% IVPB 20.83 mls/hr Q24H GINO Administration Ibuprofen 400 mg/ Sodium 104 mls @ 200 mls/hr 03/09/25 18:00 03/12/25 06:08 Chloride IVPB 200 mls/hr Q6HR GINO Administration Sodium Chloride 1,000 mls @ 60 mls/hr 03/10/25 08:45 03/11/25 23:38 Normal Saline Iv IV CONT 60 mls/hr .[id number] GINO Administration Insulin Aspart 2 - 5 units 03/10/25 00:00 03/12/25 06:03 Insulin Aspart (*Bkc) 100 Units/Ml SUB-Q Not Given Q6HR [facility] Protocol Levothyroxine Sodium 44 mcg 03/08/25 06:30 03/12/25 06:04 Levothyroxine Sodium Inj 100 Mcg/5 Ml Vial IV PUSH 44 mcg DAILY@0630 GINO Administration Lidocaine 1 patch 03/10/25 09:00 03/11/25 09:13 Lidocaine 5% Patch TRANSDERM 1 patch DAILY GINO Administration Morphine Sulfate 2 mg 03/09/25 19:28 03/10/25 05:04 Morphine Sulfate (*Crx) 2 Mg/Ml Inj IV PUSH 2 mg Q4H PRN Administration Pain Rated 4-7 Naloxone HCl 0.1 mg 03/06/25 16:20 Naloxone Hcl 0.4 Mg/Ml Vial IV PUSH Q5MIN PRN Sedation Ondansetron HCl 4 mg 03/08/25 04:20 03/08/25 04:33 Ondansetron Inj 4 Mg/2 Ml Vial IV PUSH 4 mg Q6H PRN Administration Nausea And Vomiting Ondansetron HCl 4 mg 03/09/25 13:48 Ondansetron Inj 4 Mg/2 Ml Vial IV PUSH ONCE PRN Nausea Sodium Chloride 10 ml 03/10/25 06:56 03/11/25 18:09 Central Line Flush IV PUSH 10 ml PRN PRN Administration with TPN bag changes Sodium Chloride 10 ml 03/10/25 14:00 03/12/25 06:04 Central Line Flush IV PUSH 10 ml Q8HR GINO Administration Sodium Chloride 20 ml 03/10/25 06:56 Central Line Flush IV PUSH PRN PRN after blood draws Radiology Results: ITS Impressions Abdomen/Pelvis CT 03/06/25 14:15 IMPRESSION: 1. Dilated small bowel loops suggestive of partial versus complete obstruction. 2. Other appearances are unchanged from previous examination. Small Bowel X-Ray 03/07/25 17:39 IMPRESSION: 1. Slow progression of contrast through several loops of dilated small bowel in the central abdomen with no contrast in colon by 5 hours consistent with a small bowel obstruction. 2. Small to moderate-sized sliding-type hiatal hernia with gastroesophageal reflux. Chest X-Ray 03/09/25 16:41 IMPRESSION: Highly suggestive air under the right hemidiaphragm. Clinical correlation and repeat exam is advised. No acute cardiopulmonary pathology. Supporting lines as described above. Nurse Cherie was notified with the result of the patient at 4:45 PM on March 09, 2025 Abdomen X-Ray 03/09/25 17:41 IMPRESSION: Nasogastric tube presumably in good position and ready for immediate use. Labs Labs: Laboratory Results - last 24 hr 03/11/25 03/11/25 03/12/25 12:26 17:31 00:29 WBC RBC Hgb Hct MCV MCH MCHC RDW Plt Count MPV Immature Gran % (Auto) Neut % (Auto) Lymph % (Auto) [place] % (Auto) Eos % (Auto) Baso % (Auto) Lymph # (Auto) [place] # (Auto) Eos # (Auto) Baso # (Auto) Abs Immat Gran (auto) Absolute Neuts (auto) Absolute Nucleated RBC Nucleated RBC % Sodium Potassium Chloride Carbon Dioxide Anion Gap BUN Creatinine Estim Creat Clear Calc Estimated GFR Glucose POC Capillary Glucose 166 H 144 H 146 H Calcium Phosphorus Total Bilirubin AST ALT Alkaline Phosphatase Total Protein Albumin 03/12/25 03/12/25 05:06 06:02 WBC 8.1 RBC 3.50 L Hgb 11.1 L Hct 33.7 L MCV 96.3 MCH 31.7 MCHC 32.9 RDW 12.7 Plt Count 208 MPV 9.3 Immature Gran % (Auto) 0.5 Neut % (Auto) 65.0 Lymph % (Auto) 24.8 [place] % (Auto) 6.9 Eos % (Auto) 2.2 Baso % (Auto) 0.6 Lymph # (Auto) 2.01 [place] # (Auto) 0.6 Eos # (Auto) 0.2 Baso # (Auto) 0.1 Abs Immat Gran (auto) 0.04 H Absolute Neuts (auto) 5.3 Absolute Nucleated RBC 0.000 Nucleated RBC % 0.0 Sodium 132 L Potassium 3.2 L Chloride 98 Carbon Dioxide 31 H Anion Gap 3 L BUN 14 Creatinine 0.58 L Estim Creat Clear Calc Not Reportable Estimated GFR > 60 Glucose 148 H POC Capillary Glucose 165 H Calcium 8.5 Phosphorus 2.9 Total Bilirubin 0.8 AST 28 ALT 14 Alkaline Phosphatase 45 Total Protein 5.6 L Albumin 3.0 L Quality VTE Prophylaxis VTE prophylaxis: mechanical ordered and pharmacologic ordered Hospitalist MIPS Advance Care Plan I have confirmed that the patient's Advanced Care Plan is present, code status is documented, or surrogate decision maker is listed in patient medical record.: Yes Medication Reconciliation I have utilized all available resources to obtain, update and review the patients current medications (includes all prescriptions, OTC, herbals, cannabis, and nutritional supplements).: Yes
[2025-03-12 08:00] VITALS: BP 151/62; PULSE 78; RESP 14; TEMP 36.8; O2SAT 98
[2025-03-12] MEDS: LIDOCAINE 5% PATCH 1 PATCH TRANSDERM (08:19)
[2025-03-12] MEDS: ENOXAPARIN 40 MG/0.4 ML SYRINGE SUB-Q (08:19)
[2025-03-12] MEDS: diazePAM INJ (*CRX) 10 MG/2 ML SYRINGE 2.5 MG IV PUSH (08:21)
[2025-03-12] MEDS: MAG HYDROX/AL HYDROX/SIMETH 30 ML UDC FEED TUBE ×2 (08:25→18:27)
[2025-03-12] MEDS: BISACODYL 10 MG SUPPOSITORY RECTAL (08:26)
[2025-03-12] MEDS: FAMOTIDINE 20 MG/2 ML VIAL IV PUSH ×2 (08:26→20:55)
[2025-03-12] MEDS: ONDANSETRON INJ 4 MG/2 ML VIAL IV PUSH ×2 (08:26→16:09)
[2025-03-12] MEDS: POTASSIUM CHLORIDE INJ 40 MEQ in SODIUM CHLORIDE 0.9% IV 500 ML 130 MEQ IVPB (08:49)
[2025-03-12] MEDS: FAT EMULSIONS IV 20% 250 ML 20.83 ML IVPB (13:12)
--- NOTE | 2025-03-12 15:03 | P.PNGS_ITS ---
Progress Note: A&P Assessment and Plan (1) SBO (small bowel obstruction): Code(s): K56.609 - Unspecified intestinal obstruction, unspecified as to partial versus complete obstruction Status: Acute Assessment and Plan: * Await return of bowel function * Will clamp NG today * Continue Dulcolax suppository, will give dose of Relistor as well * Continue TPN until tolerating diet * Increase activity (2) Leukocytosis: Code(s): D72.829 - Elevated white blood cell count, unspecified Status: Acute (3) Type 2 diabetes mellitus: Qualifiers: Diabetes mellitus buttermaker insulin use: without assisted use Diabetes mellitus complication status: without complication Qualified Code(s): E11.9 - Type 2 diabetes mellitus without complications Code(s): E11.9 - Type 2 diabetes mellitus without complications Status: Resolved Assessment and Plan: * Controlled on last hgb A1C in September. Management per Hospitalist. (4) Chronic anticoagulation: Code(s): Z79.01 - oil heaterman (current) use of anticoagulants Status: Chronic Assessment and Plan: * Continue to hold Eliquis until patient is taking orals. (5) Paroxysmal A-fib: Code(s): I48.0 - Paroxysmal atrial fibrillation Status: Acute Assessment and Plan: * Patient has a history of paroxysmal afib and was recently evaluated by Cardiology on 03/02/25. She has had recent complaints of palpitations and Cardiology put on a 30-day patient monitor to assess for occurrence/frequency of afib and heart rate when in afib. (6) Carotid artery stenosis: Code(s): I65.29 - Occlusion and stenosis of unspecified carotid artery Status: Acute (7) Heart failure with preserved ejection fraction: Qualifiers: Heart failure chronicity: chronic Qualified Code(s): I50.32 - Chronic diastolic (congestive) heart failure Code(s): I50.30 - Unspecified diastolic (congestive) heart failure Status: Acute (8) Chronic, continuous use of opioids: Code(s): F11.90 - Opioid use, unspecified, uncomplicated Status: Acute Assessment and Plan: * Chronic opioid use could make postoperative pain control difficult. Subjective Subjective Date/Time Seen: 03/12/25 15:03 Interval history: No flatus or BM yet. Feeling close to passing flatus but nothing yet. Pain improving. Wanting to get up a little more. NG output less. Exam GI: Inspection: non-distended and incision (intact with glue) GI Palp: Yes Soft to palpation, Yes Tenderness to palpation present (GI) (incisional), No Guarding due to palpation present (GI) and No Rebound tenderness present Auscultation: Hypoactive bowel sounds present Objective Data Vital Signs Vital Signs: Vital Signs - 24 hr 03/11/25 18:52 03/11/25 20:00 03/11/25 20:30 Temperature 97.2 F L 97.7 F Pulse Rate 75 74 Respiratory Rate 16 18 Blood Pressure 141/67 H 149/72 H Pulse Oximetry 99 96 Oxygen Delivery Room Air 03/12/25 00:42 03/12/25 06:00 03/12/25 08:00 Temperature 98.4 F 98.2 F 98.2 F Pulse Rate 73 70 78 Respiratory Rate 18 18 14 Blood Pressure 159/75 H 154/69 H 151/62 H Pulse Oximetry 96 96 98 Oxygen Delivery 03/12/25 08:20 Temperature Pulse Rate Respiratory Rate Blood Pressure Pulse Oximetry Oxygen Delivery Room Air Intake/Output Intake/Output: Intake & Output 03/09/25 03/10/25 03/11/25 03/12/25 23:59 23:59 23:59 23:59 Intake Total 3604 1634 3835.3 508 Output Total 400 1100 3450 1900 Balance 3204 534 385.3 -1392 Meds/Results Medications: Active Medications Generic Name Dose Route Start Last Admin Trade Name Freq PRN Reason Stop Dose Admin Acetaminophen 650 mg 03/06/25 16:19 Acetaminophen 650 Mg Suppository RECTAL Q6H PRN Mild Pain (1-3) or Fever Al Hydrox/Mg Hydrox/Simethicone 30 ml 03/07/25 10:15 03/12/25 08:25 Mag Hydrox/Al Hydrox/Simeth 30 Ml Udc FEED TUBE 30 ml Q8H GINO Administration Bisacodyl 10 mg 03/12/25 09:00 03/12/25 08:26 Bisacodyl 10 Mg Suppository RECTAL 10 mg QAM GINO Administration Dextrose 12.5 gm 03/06/25 16:19 03/09/25 13:11 Dextrose 50% 25 Gm/50 Ml Syringe IV PUSH 12.5 gm PRN PRN Administration Hypoglycemia Protocol Diazepam 2.5 mg 03/12/25 09:00 03/12/25 08:21 Diazepam Inj (*Crx) 10 Mg/2 Ml Syringe IV PUSH 2.5 mg DAILY GINO Administration Enoxaparin Sodium 40 mg 03/10/25 09:00 03/12/25 08:19 Enoxaparin 40 Mg/0.4 Ml Syringe SUB-Q 40 mg DAILY GINO Administration Famotidine 20 mg 03/07/25 21:00 03/12/25 08:26 Famotidine 20 Mg/2 Ml Vial IV PUSH 20 mg Q12HR GINO Administration Glucagon 1 mg 03/06/25 16:19 Glucagon For Inj 1 Mg Vial IM PRN PRN Hypoglycemia Protocol Glucose 15 gm 03/06/25 16:19 Glucose Oral Gel 15 Gm Of Glucse In 37.5 Gm Tube PO PRN PRN Hypoglycemia Protocol Hydromorphone HCl 0.5 mg 03/12/25 11:00 03/12/25 13:11 Hydromorphone Hcl Inj (*Crx) 2 Mg/Ml Vial IV PUSH 0.5 mg Q3H PRN Administration Pain Rated 8-10 Dextrose 1,000 mls @ 100 mls/hr 03/06/25 16:19 Dextrose 5% 1,000 Ml IVPB PRN PRN Hypoglycemia Protocol Dextrose 1,000 mls @ 50 mls/hr 03/09/25 17:21 Dextrose 10% IV CONT .Q20H PRN if PN is interrupted Multivitamins 1.25 ml/ 1,002.5 mls @ 40 mls/hr 03/09/25 18:30 03/11/25 18:09 Multivitamins 1.25 ml/ Amino IV CONT 40 mls/hr Acids/Electrolytes/Dextrose .Q24H GINO Administration Protocol Fat Emulsion Intravenous 250 mls @ 20.833 mls/hr 03/09/25 18:30 03/12/25 13:12 Lipids 20% IVPB 20.83 mls/hr Q24H GINO Administration Ibuprofen 400 mg/ Sodium 104 mls @ 200 mls/hr 03/09/25 18:00 03/12/25 11:27 Chloride IVPB 200 mls/hr Q6HR GION Administration Sodium Chloride 1,000 mls @ 60 mls/hr 03/10/25 08:45 03/11/25 23:38 Normal Saline Iv IV CONT 60 mls/hr .[id number] GINO Administration Insulin Aspart 2 - 5 units 03/10/25 00:00 03/12/25 12:05 Insulin Aspart (*Bkc) 100 Units/Ml SUB-Q Not Given Q6HR [facility] Protocol Levothyroxine Sodium 44 mcg 03/08/25 06:30 03/12/25 06:04 Levothyroxine Sodium Inj 100 Mcg/5 Ml Vial IV PUSH 44 mcg DAILY@0630 GINO Administration Lidocaine 1 patch 03/10/25 09:00 03/12/25 08:19 Lidocaine 5% Patch TRANSDERM 1 patch DAILY GINO Administration Methylnaltrexone [place] 12 mg 03/12/25 15:02 Methylnaltrexone 12 Mg/0.6 Ml Vial SUB-Q 03/12/25 15:03 ONCE ONE Miscellaneous Information 1 each 03/12/25 00:01 Clinimix Needs To Be Renewed Or It Will Automatically Discontinue. XX 04/11/25 00:00 CLARIFY [facility] Morphine Sulfate 4 mg 03/12/25 10:57 Morphine Sulfate (*Crx) 4 Mg/Ml Inj IV PUSH Q4H PRN Pain Rated 5-7 Naloxone HCl 0.1 mg 03/06/25 16:20 Naloxone Hcl 0.4 Mg/Ml Vial IV PUSH Q5MIN PRN Sedation Ondansetron HCl 4 mg 03/08/25 04:20 03/12/25 08:26 Ondansetron Inj 4 Mg/2 Ml Vial IV PUSH 4 mg Q6H PRN Administration Nausea And Vomiting Ondansetron HCl 4 mg 03/09/25 13:48 Ondansetron Inj 4 Mg/2 Ml Vial IV PUSH ONCE PRN Nausea Sodium Chloride 10 ml 03/10/25 06:56 03/11/25 18:09 Central Line Flush IV PUSH 10 ml PRN PRN Administration with TPN bag changes Sodium Chloride 10 ml 03/10/25 14:00 03/12/25 06:04 Central Line Flush IV PUSH 10 ml Q8HR GINO Administration Sodium Chloride 20 ml 03/10/25 06:56 Central Line Flush IV PUSH PRN PRN after blood draws Radiology Results: ITS Impressions Abdomen/Pelvis CT 03/06/25 14:15 IMPRESSION: 1. Dilated small bowel loops suggestive of partial versus complete obstruction. 2. Other appearances are unchanged from previous examination. Small Bowel X-Ray 03/07/25 17:39 IMPRESSION: 1. Slow progression of contrast through several loops of dilated small bowel in the central abdomen with no contrast in colon by 5 hours consistent with a small bowel obstruction. 2. Small to moderate-sized sliding-type hiatal hernia with gastroesophageal reflux. Chest X-Ray 03/09/25 16:41 IMPRESSION: Highly suggestive air under the right hemidiaphragm. Clinical correlation and repeat exam is advised. No acute cardiopulmonary pathology. Supporting lines as described above. Nurse Cherie was notified with the result of the patient at 4:45 PM on March 09, 2025 Abdomen X-Ray 03/09/25 17:41 IMPRESSION: Nasogastric tube presumably in good position and ready for immediate use. Labs Labs: Laboratory Results - last 24 hr 03/11/25 03/12/25 03/12/25 17:31 00:29 05:06 WBC RBC Hgb Hct MCV MCH MCHC RDW Plt Count MPV Immature Gran % (Auto) Neut % (Auto) Lymph % (Auto) [place] % (Auto) Eos % (Auto) Baso % (Auto) Lymph # (Auto) [place] # (Auto) Eos # (Auto) Baso # (Auto) Abs Immat Gran (auto) Absolute Neuts (auto) Absolute Nucleated RBC Nucleated RBC % Sodium Potassium Chloride Carbon Dioxide Anion Gap BUN Creatinine Estim Creat Clear Calc Estimated GFR Glucose POC Capillary Glucose 144 H 146 H 165 H Calcium Phosphorus Total Bilirubin AST ALT Alkaline Phosphatase Total Protein Albumin 03/12/25 03/12/25 06:02 11:59 WBC 8.1 RBC 3.50 L Hgb 11.1 L Hct 33.7 L MCV 96.3 MCH 31.7 MCHC 32.9 RDW 12.7 Plt Count 208 MPV 9.3 Immature Gran % (Auto) 0.5 Neut % (Auto) 65.0 Lymph % (Auto) 24.8 [place] % (Auto) 6.9 Eos % (Auto) 2.2 Baso % (Auto) 0.6 Lymph # (Auto) 2.01 [place] # (Auto) 0.6 Eos # (Auto) 0.2 Baso # (Auto) 0.1 Abs Immat Gran (auto) 0.04 H Absolute Neuts (auto) 5.3 Absolute Nucleated RBC 0.000 Nucleated RBC % 0.0 Sodium 132 L Potassium 3.2 L Chloride 98 Carbon Dioxide 31 H Anion Gap 3 L BUN 14 Creatinine 0.58 L Estim Creat Clear Calc Not Reportable Estimated GFR > 60 Glucose 148 H POC Capillary Glucose 163 H Calcium 8.5 Phosphorus 2.9 Total Bilirubin 0.8 AST 28 ALT 14 Alkaline Phosphatase 45 Total Protein 5.6 L Albumin 3.0 L
[2025-03-12] MEDS: METHYLNALTREXONE 12 MG/0.6 ML VIAL SUB-Q (15:27)
[2025-03-12 16:00] VITALS: BP 157/73; PULSE 83; RESP 14; TEMP 36.6; O2SAT 96
[2025-03-12 17:53] LABS: Triglycerides 126 mg/dL (<150)
[2025-03-12] MEDS: AMINO ACIDS 5%/D15W/E-LYTES/CA 1,000 ML with MULTIVITAMINS-12 INJ VIAL 1 1.25 ML, MULTI... 40 ML IV CONT (18:28)
[2025-03-12 19:49] VITALS: PULSE 94; RESP 20; O2SAT 99
[2025-03-12 20:00] VITALS: BP 151/72; PULSE 80; RESP 18; TEMP 36.9; O2SAT 97
[2025-03-12] MEDS: SODIUM CHLORIDE 0.9% IV 1,000 ML 60 ML IV CONT (21:04)
[2025-03-13] MEDS: IBUPROFEN IV 400 MG in SODIUM CHLORIDE 0.9% IV 100 ML 200 MG IVPB ×4 (00:12→17:25)
[2025-03-13] MEDS: HYDROmorphone HCL INJ (*CRX) 2 MG/ML VIAL 0.5 MG IV PUSH ×4 (00:21→13:12)
[2025-03-13] MEDS: LEVOTHYROXINE SODIUM INJ 100 MCG/5 ML VIAL 44 MCG IV PUSH (05:43)
[2025-03-13] MEDS: CENTRAL LINE FLUSH 10 ML IV PUSH ×3 (05:49→21:07)
[2025-03-13 06:00] VITALS: BP 172/74; PULSE 82; RESP 18; TEMP 37.2; O2SAT 100
[2025-03-13 06:04] LABS: Hematocrit 33.4 % (37.0-47.0); Hemoglobin 11.0 g/dL (12.0-15.0); Immature Granulocyte Percent A 0.6 % (0-0.5); Lymphocytes Absolute Auto 1.81 K/mm3 (0.9-3.2); Mean Corpuscular HGB Conc 32.9 g/dl (32-36); Mean Corpuscular Hemoglobin 31.8 pg (26-34); Mean Corpuscular Volume 96.5 fl (80-100); Nucleated Red Blood Cells Absolute Auto 0.000 K/mm3 (0.0-0.012); Nucleated Red Blood Cells Perc 0.0 % (0.0-0.2); Platelet Count Result 197 k/mm3 (150-375); Red Blood Count 3.46 M/mm3 (4.2-5.4); White Blood Count 7.8 K/mm3 (4.5-10.0)
[2025-03-13 06:26] LABS: Alanine Aminotransferase 14 U/L (6-35); Albumin Level 3.1 g/dL (3.5-5.1); Alkaline Phosphatase 48 U/L (38-126); Anion Gap 4 mmol/L (4-12); Aspartate Amino Transferase 24 U/L (14-36); Bilirubin,Total 1.0 mg/dL (0.2-1.3); Blood Urea Nitrogen 15 mg/dL (7-17); Calcium 8.6 mg/dL (8.4-10.2); Carbon Dioxide 29 mmol/L (22-30); Chloride 99 mmol/L (98-107); Estimated Glomerular Filt Rate > 60; Glucose 157 mg/dL (65-110); Magnesium 1.8 mg/dL (1.6-2.3); Potassium 3.6 mmol/L (3.4-5.0); Sodium 132 mmol/L (137-145); Total Protein 5.7 g/dL (6.3-8.2)
--- NOTE | 2025-03-13 08:00 | P.PNIM_ITS ---
Progress Note: A&P Assessment and Plan (1) SBO (small bowel obstruction): Code(s): K56.609 - Unspecified intestinal obstruction, unspecified as to partial versus complete obstruction Status: Acute Assessment and Plan: * CT abdomen/pelvis: * Dilated small bowel loops suggestive of partial versus complete obstruction. * Other appearances are unchanged from previous examination. * bowel rest, NPO. NG place in ED, confirmation via XR * IV fluids: 2L bolus, will hold on further fluids as the patient has history of heart failure with preserved EF * started on Zosyn on 03/06, continued * analgesics p.r.n. * Leukocytosis improving, WBC down from 18.4-12.5 on 03/07 * general surgery consulted * appreciate further recommendations * Water-soluble small-bowel follow-through series today * IV fluid hydration while NPO * Surgical management not rule out at this time, continue to hold Eliquis * Maintain antibiotics, IV fluid hydration, hold Eliquis * Small-bowel follow-through series * no contrast moving to the colon at 5 hours c/w a small bowel obstruction * POD 2 Ex lap for SOB * Improved but still present abdominal pain * NG tube still in place * WBC down to 10.2 * Appreciate further recs from Gen Surg POD 3 Ex lap for SOB * - Patient up to chair working with therapy, c/o pain persisting although more chronic concerns than acute currently. * - Appreciate General surgery recs. POD 4 Ex lap for SOB * - Patient is working with therapy well, cooperative. * - No return of bowel function as of yet. * - NG is clamped. * - Appreciate General surgery recs. (2) Chronic hyponatremia: Code(s): E87.1 - Hypo-osmolality and hyponatremia Status: Chronic Assessment and Plan: * Na 127, previously 126 on 02/28 * history chronic hyponatremia, present since 2019 * monitor * 03/11: 130 * 03/12: Stable at 132. * 03/13: Stable. (3) FARTUN (iron deficiency anemia): Qualifiers: Iron deficiency anemia type: chronic blood loss Qualified Code(s): D50.0 - Iron deficiency anemia secondary to blood loss (chronic) Code(s): D50.9 - Iron deficiency anemia, unspecified Status: Chronic Assessment and Plan: * Hgb 13.7 * Hx: FARTUN * transfuse if <7 * trend * 03/11: Hgb 11.0 * 03/12: Stable hgb 11.1. 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 No longer on medications. * A1C 5.5% on 10/08/2024 * Cont. POC accuchecks until tolerating diet. 03/13 - Stable accuchecks. (5) Atrial fibrillation: Qualifiers: Atrial fibrillation type: paroxysmal Qualified Code(s): I48.0 - Paroxysmal atrial fibrillation Code(s): I48.91 - Unspecified atrial fibrillation Status: Chronic Assessment and Plan: * history of paroxysmal AFib * EKG, initial, 03/06: sinus rhythm, rate 74, LVH, cannot rule out septal infarct age indeterminate, minimal Q-waves high lateral leads. No significant change compared to EKG done on 02/25. * continue home medications 03/12: - Stable rate. Stable on exam. 03/12: - Resume apixaban at surgeon discretion. (6) Hypertension: Qualifiers: Hypertension type: primary hypertension Qualified Code(s): I10 - Essential (primary) hypertension Code(s): I10 - Essential (primary) hypertension Status: Chronic Assessment and Plan: * chronic, currently 153/57 * continue home medications * monitor * reviewed and stable * 03/12: Persistent stability. 03/13 - Add prn hydralazine until orals resume - trending higher on recent measurements. Plan 03/12: Patient complains of persistent chronic pain acutely worsened d/t weather change. Hx RA. Will increase morphine to 4mg and space out hydromorphone PRN to 3hours. WIll add IV APAP scheduled for 24 hours to ascertain efficacy if formulary available. The ibuprofen IV already on board is a good baseline addition for antiinflammatory effect. 03/13: Aracely Spear is pod 4 from exploratory laparotomy for SBO. She continues to have NG in place (clamped) and no return of bowel function as of yet. Is on TPN. Glucose and elctrolytes are stable. BP trending higher - IV hydralazine added. Encouraged to add in apap supp. to help with pain. Diet: NPO-NG tube GI Prophylaxis: Pantoprazole DVT Prophylaxis: SCDs, (eliquis on hold) Code Status: Full code Time Spent With Patient Time with patient: 25 - 35 minutes Subjective Date/time seen: 03/13/25 08:00 Interval history: Aracely is having some improvement this morning. She states pain is improved - as noted previously it is moreso in her back currently. No BM as of yet. Review of Systems Review of Systems: No new ROS findings. All systems reviewed & are unremarkable except as noted in HPI and below Exam Narrative: GENERAL APPEARANCE: Appears to be in no acute distress. HEAD: normocephalic atraumatic EYES: Vision grossly intact. ENT: Hearing grossly intact, no nasal discharge NECK: Neck supple, trachea midline. CARDIAC: Normal S1/S2. Rhythm is regular. No murmurs, rubs, or gallops. No cyanosis or pallor. Extremities are warm and well perfused. LUNGS: Clear to auscultation without rales, rhonchi, wheezing or diminished breath sounds. Respirations even and unlabored. ABDOMEN: BS positive x 4 quadrants. Soft, nondistended. Midline abdominal incision well approximated NG in place. MSK:fair strength in all extremities. PERIPHERAL VASCULAR: Normal perfusion,No edema. NEURO: Follows commands. No focal deficits. SKIN: [place] without lesions or eruptions. Right IJ CVD dressing c/d/i. PSYCH: Stable, no paranoia or delusional thinking. Objective Data Vital Signs Vital Signs: Vital Signs - 24 hr 03/12/25 08:20 03/12/25 16:00 03/12/25 19:49 Temperature 97.8 F Pulse Rate 83 94 Respiratory Rate 14 20 Blood Pressure 157/73 H Pulse Oximetry 96 99 Oxygen Delivery Room Air Room Air Fraction of Inspired Oxygen 21 03/12/25 20:00 03/13/25 06:00 Temperature 98.4 F 99.0 F Pulse Rate 80 82 Respiratory Rate 18 18 Blood Pressure 151/72 H 172/74 H Pulse Oximetry 97 100 Oxygen Delivery Fraction of Inspired Oxygen Intake/Output Intake/Output: Intake & Output 06/2603/11/25 03/12/25 03/13/25 23:59 23:59 23:59 23:59 Intake Total 1634 3835.3 2688.7 208 Output Total 1100 3450 2950 Balance 534 385.3 -261.3 208 Meds/Results Medications: Active Medications Generic Name Dose Route Start Last Admin Trade Name Freq PRN Reason Stop Dose Admin Acetaminophen 650 mg 03/06/25 16:19 Acetaminophen 650 Mg Suppository RECTAL Q6H PRN Mild Pain (1-3) or Fever Al Hydrox/Mg Hydrox/Simethicone 30 ml 03/07/25 10:15 03/13/25 05:48 Mag Hydrox/Al Hydrox/Simeth 30 Ml Udc FEED TUBE Not Given Q8H GINO Bisacodyl 10 mg 03/12/25 09:00 03/12/25 08:26 Bisacodyl 10 Mg Suppository RECTAL 10 mg QAM GINO Administration Dextrose 12.5 gm 03/06/25 16:19 03/09/25 13:11 Dextrose 50% 25 Gm/50 Ml Syringe IV PUSH 12.5 gm PRN PRN Administration Hypoglycemia Protocol Diazepam 2.5 mg 03/12/25 09:00 03/12/25 08:21 Diazepam Inj (*Crx) 10 Mg/2 Ml Syringe IV PUSH 2.5 mg DAILY GINO Administration Enoxaparin Sodium 40 mg 03/10/25 09:00 03/12/25 08:19 Enoxaparin 40 Mg/0.4 Ml Syringe SUB-Q 40 mg DAILY GINO Administration Famotidine 20 mg 03/07/25 21:00 03/12/25 20:55 Famotidine 20 Mg/2 Ml Vial IV PUSH 20 mg Q12HR GINO Administration Glucagon 1 mg 03/06/25 16:19 Glucagon For Inj 1 Mg Vial IM PRN PRN Hypoglycemia Protocol Glucose 15 gm 03/06/25 16:19 Glucose Oral Gel 15 Gm Of Glucse In 37.5 Gm Tube PO PRN PRN Hypoglycemia Protocol Hydromorphone HCl 0.5 mg 03/12/25 11:00 03/13/25 05:42 Hydromorphone Hcl Inj (*Crx) 2 Mg/Ml Vial IV PUSH 0.5 mg Q3H PRN Administration Pain Rated 8-10 Dextrose 1,000 mls @ 100 mls/hr 03/06/25 16:19 Dextrose 5% 1,000 Ml IVPB PRN PRN Hypoglycemia Protocol Dextrose 1,000 mls @ 50 mls/hr 03/09/25 17:21 Dextrose 10% IV CONT .Q20H PRN if PN is interrupted Multivitamins 1.25 ml/ 1,002.5 mls @ 40 mls/hr 03/09/25 18:30 03/12/25 18:28 Multivitamins 1.25 ml/ Amino IV CONT 40 mls/hr Acids/Electrolytes/Dextrose .Q24H GINO Administration Protocol Fat Emulsion Intravenous 250 mls @ 20.833 mls/hr 03/09/25 18:30 03/12/25 13:12 Lipids 20% IVPB 20.83 mls/hr Q24H GINO Administration Ibuprofen 400 mg/ Sodium 104 mls @ 200 mls/hr 03/09/25 18:00 03/13/25 06:18 Chloride IVPB Infused Q6HR GINO Infusion Sodium Chloride 1,000 mls @ 60 mls/hr 03/10/25 08:45 03/12/25 21:04 Normal Saline Iv IV CONT 60 mls/hr .[id number] GINO Administration Insulin Aspart 2 - 5 units 03/10/25 00:00 03/13/25 05:48 Insulin Aspart (*Bkc) 100 Units/Ml SUB-Q Not Given Q6HR [facility] Protocol Levothyroxine Sodium 44 mcg 03/08/25 06:30 03/13/25 05:43 Levothyroxine Sodium Inj 100 Mcg/5 Ml Vial IV PUSH 44 mcg DAILY@0630 GINO Administration Lidocaine 1 patch 03/10/25 09:00 03/12/25 08:19 Lidocaine 5% Patch TRANSDERM 1 patch DAILY GINO Administration Miscellaneous Information 1 each 03/12/25 00:01 Clinimix Needs To Be Renewed Or It Will Automatically Discontinue. XX 04/11/25 00:00 CLARIFY [facility] Morphine Sulfate 4 mg 03/12/25 10:57 Morphine Sulfate (*Crx) 4 Mg/Ml Inj IV PUSH Q4H PRN Pain Rated 5-7 Naloxone HCl 0.1 mg 03/06/25 16:20 Naloxone Hcl 0.4 Mg/Ml Vial IV PUSH Q5MIN PRN Sedation Ondansetron HCl 4 mg 03/08/25 04:20 03/12/25 16:09 Ondansetron Inj 4 Mg/2 Ml Vial IV PUSH 4 mg Q6H PRN Administration Nausea And Vomiting Ondansetron HCl 4 mg 03/09/25 13:48 Ondansetron Inj 4 Mg/2 Ml Vial IV PUSH ONCE PRN Nausea Sodium Chloride 10 ml 03/10/25 06:56 03/11/25 18:09 Central Line Flush IV PUSH 10 ml PRN PRN Administration with TPN bag changes Sodium Chloride 10 ml 03/10/25 14:00 03/13/25 05:49 Central Line Flush IV PUSH 10 ml Q8HR GINO Administration Sodium Chloride 20 ml 03/10/25 06:56 Central Line Flush IV PUSH PRN PRN after blood draws Radiology Results: ITS Impressions Abdomen/Pelvis CT 03/06/25 14:15 IMPRESSION: 1. Dilated small bowel loops suggestive of partial versus complete obstruction. 2. Other appearances are unchanged from previous examination. Small Bowel X-Ray 03/07/25 17:39 IMPRESSION: 1. Slow progression of contrast through several loops of dilated small bowel in the central abdomen with no contrast in colon by 5 hours consistent with a small bowel obstruction. 2. Small to moderate-sized sliding-type hiatal hernia with gastroesophageal reflux. Chest X-Ray 03/09/25 16:41 IMPRESSION: Highly suggestive air under the right hemidiaphragm. Clinical correlation and repeat exam is advised. No acute cardiopulmonary pathology. Supporting lines as described above. Nurse Cherie was notified with the result of the patient at 4:45 PM on March 09, 2025 Abdomen X-Ray 03/09/25 17:41 IMPRESSION: Nasogastric tube presumably in good position and ready for immediate use. Labs Labs: Laboratory Results - last 24 hr 03/12/25 03/12/25 03/12/25 11:59 17:33 18:06 WBC RBC Hgb Hct MCV MCH MCHC RDW Plt Count MPV Immature Gran % (Auto) Neut % (Auto) Lymph % (Auto) [place] % (Auto) Eos % (Auto) Baso % (Auto) Lymph # (Auto) [place] # (Auto) Eos # (Auto) Baso # (Auto) Abs Immat Gran (auto) Absolute Neuts (auto) Absolute Nucleated RBC Nucleated RBC % Sodium Potassium Chloride Carbon Dioxide Anion Gap BUN Creatinine Estim Creat Clear Calc Estimated GFR Glucose POC Capillary Glucose 163 H 138 H Calcium Phosphorus Magnesium Total Bilirubin AST ALT Alkaline Phosphatase Total Protein Albumin Triglycerides 126 03/13/25 03/13/25 03/13/25 00:28 05:47 05:51 WBC 7.8 RBC 3.46 L Hgb 11.0 L Hct 33.4 L MCV 96.5 MCH 31.8 MCHC 32.9 RDW 12.8 Plt Count 197 MPV 9.4 Immature Gran % (Auto) 0.6 H Neut % (Auto) 66.6 Lymph % (Auto) 23.2 [place] % (Auto) 6.2 Eos % (Auto) 2.9 Baso % (Auto) 0.5 Lymph # (Auto) 1.81 [place] # (Auto) 0.5 Eos # (Auto) 0.2 Baso # (Auto) 0.0 Abs Immat Gran (auto) 0.05 H Absolute Neuts (auto) 5.2 Absolute Nucleated RBC 0.000 Nucleated RBC % 0.0 Sodium 132 L Potassium 3.6 Chloride 99 Carbon Dioxide 29 Anion Gap 4 BUN 15 Creatinine 0.59 L Estim Creat Clear Calc Not Reportable Estimated GFR > 60 Glucose 157 H POC Capillary Glucose 160 H 167 H Calcium 8.6 Phosphorus 3.4 Magnesium 1.8 Total Bilirubin 1.0 AST 24 ALT 14 Alkaline Phosphatase 48 Total Protein 5.7 L Albumin 3.1 L Triglycerides Quality VTE Prophylaxis VTE prophylaxis: mechanical ordered and pharmacologic ordered Hospitalist MIPS Advance Care Plan I have confirmed that the patient's Advanced Care Plan is present, code status is documented, or surrogate decision maker is listed in patient medical record.: Yes Medication Reconciliation I have utilized all available resources to obtain, update and review the patients current medications (includes all prescriptions, OTC, herbals, cannabis, and nutritional supplements).: Yes
[2025-03-13] MEDS: BISACODYL 10 MG SUPPOSITORY RECTAL (09:39)
[2025-03-13] MEDS: ENOXAPARIN 40 MG/0.4 ML SYRINGE SUB-Q (09:39)
[2025-03-13] MEDS: FAMOTIDINE 20 MG/2 ML VIAL IV PUSH ×2 (09:40→21:06)
[2025-03-13] MEDS: LIDOCAINE 5% PATCH 1 PATCH TRANSDERM (09:40)
[2025-03-13] MEDS: MAG HYDROX/AL HYDROX/SIMETH 30 ML UDC FEED TUBE ×2 (09:45→13:08)
[2025-03-13] MEDS: MAGNESIUM HYDROXIDE SUSP 30 ML UDC FEED TUBE (13:09)
[2025-03-13 14:00] VITALS: BP 159/78; PULSE 81; RESP 14; TEMP 36.9; O2SAT 96
--- NOTE | 2025-03-13 14:59 | P.PNGS_ITS ---
Progress Note: A&P Assessment and Plan (1) SBO (small bowel obstruction): Code(s): K56.609 - Unspecified intestinal obstruction, unspecified as to partial versus complete obstruction Status: Acute Assessment and Plan: * Await return of bowel function * Trial of clear liquids with NG clamped, then can remove NG this afternoon if doing well. * Continue Dulcolax suppository, MOM given this morning * Continue TPN until tolerating diet * Increase activity (2) Type 2 diabetes mellitus: Qualifiers: Diabetes mellitus detention insulin use: without detention use Diabetes mellitus complication status: without complication Qualified Code(s): E11.9 - Type 2 diabetes mellitus without complications Code(s): E11.9 - Type 2 diabetes mellitus without complications Status: Resolved Assessment and Plan: * Controlled on last hgb A1C in September. Management per Hospitalist. 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 (4) Paroxysmal A-fib: Code(s): I48.0 - Paroxysmal atrial fibrillation Status: Acute Assessment and Plan: * Patient has a history of paroxysmal afib and was recently evaluated by Cardiology on 03/02/25. She has had recent complaints of palpitations and Cardiology put on a 30-day nurse monitoring to assess for occurrence/frequency of afib and heart rate when in afib. (5) Carotid artery stenosis: Code(s): I65.29 - Occlusion and stenosis of unspecified carotid artery Status: Acute (6) Heart failure with preserved ejection fraction: Qualifiers: Heart failure chronicity: chronic Qualified Code(s): I50.32 - Chronic diastolic (congestive) heart failure Code(s): I50.30 - Unspecified diastolic (congestive) heart failure Status: Acute (7) Chronic, continuous use of opioids: Code(s): F11.90 - Opioid use, unspecified, uncomplicated Status: Acute Assessment and Plan: * Chronic opioid use could make postoperative pain control difficult. Will resume home dose of Oxycodone. Subjective Subjective Date/Time Seen: 03/13/25 14:59 Interval history: Tolerating NG clamped with ice chips. No nausea or bloating. Still no BM or flatus. Mostly c/o back pain. Not ambulating much yet. Exam GI: Inspection: non-distended and incision (intact with glue) GI Palp: Yes Soft to palpation, Yes Tenderness to palpation present (GI) (incisional), No Guarding due to palpation present (GI) and No Rebound tenderness present Auscultation: Hypoactive bowel sounds present Objective Data Vital Signs Vital Signs: Vital Signs - 24 hr 03/12/25 16:00 03/12/25 19:49 03/12/25 20:00 Temperature 97.8 F 98.4 F Pulse Rate 83 94 80 Respiratory Rate 14 20 18 Blood Pressure 157/73 H 151/72 H Pulse Oximetry 96 99 97 Oxygen Delivery Room Air Fraction of Inspired Oxygen 21 03/13/25 06:00 03/13/25 08:00 Temperature 99.0 F Pulse Rate 82 Respiratory Rate 18 Blood Pressure 172/74 H Pulse Oximetry 100 Oxygen Delivery Room Air Fraction of Inspired Oxygen Intake/Output Intake/Output: Intake & Output 03/10/25 03/11/25 03/12/25 03/13/25 23:59 23:59 23:59 23:59 Intake Total 1634 3835.3 2688.7 208 Output Total 1100 3450 2950 Balance 534 385.3 -261.3 208 Meds/Results Medications: Active Medications Generic Name Dose Route Start Last Admin Trade Name Freq PRN Reason Stop Dose Admin Acetaminophen 650 mg 03/06/25 16:19 Acetaminophen 650 Mg Suppository RECTAL Q6H PRN Mild Pain (1-3) or Fever Al Hydrox/Mg Hydrox/Simethicone 30 ml 03/07/25 10:15 03/13/25 13:08 Mag Hydrox/Al Hydrox/Simeth 30 Ml Udc FEED TUBE 30 ml Q8H GINO Administration Bisacodyl 10 mg 03/12/25 09:00 03/13/25 09:39 Bisacodyl 10 Mg Suppository RECTAL 10 mg QAM GINO Administration Dextrose 12.5 gm 03/06/25 16:19 03/09/25 13:11 Dextrose 50% 25 Gm/50 Ml Syringe IV PUSH 12.5 gm PRN PRN Administration Hypoglycemia Protocol Enoxaparin Sodium 40 mg 03/10/25 09:00 03/13/25 09:39 Enoxaparin 40 Mg/0.4 Ml Syringe SUB-Q 40 mg DAILY GINO Administration Famotidine 20 mg 03/07/25 21:00 03/13/25 09:40 Famotidine 20 Mg/2 Ml Vial IV PUSH 20 mg Q12HR GINO Administration Glucagon 1 mg 03/06/25 16:19 Glucagon For Inj 1 Mg Vial IM PRN PRN Hypoglycemia Protocol Glucose 15 gm 03/06/25 16:19 Glucose Oral Gel 15 Gm Of Glucse In 37.5 Gm Tube PO PRN PRN Hypoglycemia Protocol Hydralazine HCl 10 mg 03/13/25 08:18 Hydralazine Hcl 20 Mg/Ml Vial IV PUSH Q8H PRN Blood Pressure - High Hydromorphone HCl 1 mg 03/13/25 14:32 Hydromorphone Hcl Inj (*Crx) 2 Mg/Ml Vial IV PUSH Q2H PRN Breakthrough Pain Rated 7-10 or NPO Hydromorphone HCl 0.5 mg 03/13/25 14:32 Hydromorphone Hcl Inj (*Crx) 2 Mg/Ml Vial IV PUSH Q2H PRN Breakthrough Pain Rated 4-6 or NPO Dextrose 1,000 mls @ 100 mls/hr 03/06/25 16:19 Dextrose 5% 1,000 Ml IVPB PRN PRN Hypoglycemia Protocol Dextrose 1,000 mls @ 50 mls/hr 03/09/25 17:21 Dextrose 10% IV CONT .Q20H PRN if PN is interrupted Multivitamins 1.25 ml/ 1,002.5 mls @ 40 mls/hr 03/09/25 18:30 03/12/25 18:28 Multivitamins 1.25 ml/ Amino IV CONT 40 mls/hr Acids/Electrolytes/Dextrose .Q24H GINO Administration Protocol Fat Emulsion Intravenous 250 mls @ 20.833 mls/hr 03/09/25 18:30 03/12/25 13:12 Lipids 20% IVPB 20.83 mls/hr Q24H GINO Administration Ibuprofen 400 mg/ Sodium 104 mls @ 200 mls/hr 03/09/25 18:00 03/13/25 13:05 Chloride IVPB 200 mls/hr Q6HR GINO Administration Sodium Chloride 1,000 mls @ 60 mls/hr 03/10/25 08:45 03/12/25 21:04 Normal Saline Iv IV CONT 60 mls/hr .[id number] GINO Administration Insulin Aspart 2 - 5 units 03/10/25 00:00 03/13/25 13:04 Insulin Aspart (*Bkc) 100 Units/Ml SUB-Q Not Given Q6HR [facility] Protocol Levothyroxine Sodium 44 mcg 03/08/25 06:30 03/13/25 05:43 Levothyroxine Sodium Inj 100 Mcg/5 Ml Vial IV PUSH 44 mcg DAILY@0630 GINO Administration Lidocaine 1 patch 03/10/25 09:00 03/13/25 09:40 Lidocaine 5% Patch TRANSDERM 1 patch DAILY GINO Administration Miscellaneous Information 1 each 03/13/25 00:01 Clinimix Needs To Be Renewed Or It Will Automatically Discontinue. XX 04/12/25 00:00 CLARIFY [facility] Morphine Sulfate 4 mg 03/12/25 10:57 Morphine Sulfate (*Crx) 4 Mg/Ml Inj IV PUSH Q4H PRN Pain Rated 5-7 Naloxone HCl 0.1 mg 03/06/25 16:20 Naloxone Hcl 0.4 Mg/Ml Vial IV PUSH Q5MIN PRN Sedation Ondansetron HCl 4 mg 03/08/25 04:20 03/12/25 16:09 Ondansetron Inj 4 Mg/2 Ml Vial IV PUSH 4 mg Q6H PRN Administration Nausea And Vomiting Ondansetron HCl 4 mg 03/09/25 13:48 Ondansetron Inj 4 Mg/2 Ml Vial IV PUSH ONCE PRN Nausea Oxycodone/Acetaminophen 1 tab 03/13/25 14:26 Oxycodone/Acetaminophen (*Crx) 10-325 Mg Tablet PO Q6H PRN Pain (Scale Score 4-6) Sodium Chloride 10 ml 03/10/25 06:56 03/11/25 18:09 Central Line Flush IV PUSH 10 ml PRN PRN Administration with TPN bag changes Sodium Chloride 10 ml 03/10/25 14:00 03/13/25 13:06 Central Line Flush IV PUSH 10 ml Q8HR GINO Administration Sodium Chloride 20 ml 03/10/25 06:56 Central Line Flush IV PUSH PRN PRN after blood draws Radiology Results: ITS Impressions Abdomen/Pelvis CT 03/06/25 14:15 IMPRESSION: 1. Dilated small bowel loops suggestive of partial versus complete obstruction. 2. Other appearances are unchanged from previous examination. Small Bowel X-Ray 03/07/25 17:39 IMPRESSION: 1. Slow progression of contrast through several loops of dilated small bowel in the central abdomen with no contrast in colon by 5 hours consistent with a small bowel obstruction. 2. Small to moderate-sized sliding-type hiatal hernia with gastroesophageal reflux. Chest X-Ray 03/09/25 16:41 IMPRESSION: Highly suggestive air under the right hemidiaphragm. Clinical correlation and repeat exam is advised. No acute cardiopulmonary pathology. Supporting lines as described above. Nurse Cherie was notified with the result of the patient at 4:45 PM on March 09, 2025 Abdomen X-Ray 03/09/25 17:41 IMPRESSION: Nasogastric tube presumably in good position and ready for immediate use. Labs Labs: Laboratory Results - last 24 hr 03/12/25 03/12/25 03/13/25 17:33 18:06 00:28 WBC RBC Hgb Hct MCV MCH MCHC RDW Plt Count MPV Immature Gran % (Auto) Neut % (Auto) Lymph % (Auto) [place] % (Auto) Eos % (Auto) Baso % (Auto) Lymph # (Auto) [place] # (Auto) Eos # (Auto) Baso # (Auto) Abs Immat Gran (auto) Absolute Neuts (auto) Absolute Nucleated RBC Nucleated RBC % Sodium Potassium Chloride Carbon Dioxide Anion Gap BUN Creatinine Estim Creat Clear Calc Estimated GFR Glucose POC Capillary Glucose 138 H 160 H Calcium Phosphorus Magnesium Total Bilirubin AST ALT Alkaline Phosphatase Total Protein Albumin Triglycerides 126 03/13/25 03/13/25 03/13/25 05:47 05:51 12:26 WBC 7.8 RBC 3.46 L Hgb 11.0 L Hct 33.4 L MCV 96.5 MCH 31.8 MCHC 32.9 RDW 12.8 Plt Count 197 MPV 9.4 Immature Gran % (Auto) 0.6 H Neut % (Auto) 66.6 Lymph % (Auto) 23.2 [place] % (Auto) 6.2 Eos % (Auto) 2.9 Baso % (Auto) 0.5 Lymph # (Auto) 1.81 [place] # (Auto) 0.5 Eos # (Auto) 0.2 Baso # (Auto) 0.0 Abs Immat Gran (auto) 0.05 H Absolute Neuts (auto) 5.2 Absolute Nucleated RBC 0.000 Nucleated RBC % 0.0 Sodium 132 L Potassium 3.6 Chloride 99 Carbon Dioxide 29 Anion Gap 4 BUN 15 Creatinine 0.59 L Estim Creat Clear Calc Not Reportable Estimated GFR > 60 Glucose 157 H POC Capillary Glucose 167 H 154 H Calcium 8.6 Phosphorus 3.4 Magnesium 1.8 Total Bilirubin 1.0 AST 24 ALT 14 Alkaline Phosphatase 48 Total Protein 5.7 L Albumin 3.1 L Triglycerides
[2025-03-13] MEDS: HYDROmorphone HCL INJ (*CRX) 2 MG/ML VIAL 1 MG IV PUSH ×2 (17:27→21:06)
[2025-03-13] MEDS: FAT EMULSIONS IV 20% 250 ML 20.83 ML IVPB (18:02)
[2025-03-13] MEDS: AMINO ACIDS 5%/D15W/E-LYTES/CA 1,000 ML with MULTIVITAMINS-12 INJ VIAL 1 1.25 ML, MULTI... 40 ML IV CONT (18:03)
[2025-03-13] MEDS: SODIUM CHLORIDE 0.9% IV 1,000 ML 60 ML IV CONT (18:07)
[2025-03-13 21:59] VITALS: BP 171/83; PULSE 81; RESP 18; TEMP 37.1; O2SAT 96
[2025-03-14] MEDS: HYDROmorphone HCL INJ (*CRX) 2 MG/ML VIAL 1 MG IV PUSH ×5 (00:58→23:04)
[2025-03-14] MEDS: IBUPROFEN IV 400 MG in SODIUM CHLORIDE 0.9% IV 100 ML 200 MG IVPB ×5 (00:58→23:04)
[2025-03-14] MEDS: MAG HYDROX/AL HYDROX/SIMETH 30 ML UDC FEED TUBE ×2 (01:02→09:21)
[2025-03-14] MEDS: CENTRAL LINE FLUSH 10 ML IV PUSH ×3 (05:33→23:05)
[2025-03-14 06:00] VITALS: BP 157/72; PULSE 79; RESP 18; TEMP 36.5; O2SAT 97
[2025-03-14 06:03] LABS: Hematocrit 31.3 % (37.0-47.0); Hemoglobin 10.3 g/dL (12.0-15.0); Immature Granulocyte Percent A 0.4 % (0-0.5); Lymphocytes Absolute Auto 1.56 K/mm3 (0.9-3.2); Mean Corpuscular HGB Conc 32.9 g/dl (32-36); Mean Corpuscular Hemoglobin 32.3 pg (26-34); Mean Corpuscular Volume 98.1 fl (80-100); Nucleated Red Blood Cells Absolute Auto 0.000 K/mm3 (0.0-0.012); Nucleated Red Blood Cells Perc 0.0 % (0.0-0.2); Platelet Count Result 215 k/mm3 (150-375); Red Blood Count 3.19 M/mm3 (4.2-5.4); White Blood Count 9.6 K/mm3 (4.5-10.0)
[2025-03-14 06:08] LABS: INR 1.0; Prothrombin Time 13.3 Seconds (11.1-14.7)
[2025-03-14 06:09] LABS: Partial Thromboplastin Time 30.0 Seconds (22.3-36.8)
[2025-03-14 06:47] LABS: Alanine Aminotransferase 13 U/L (6-35); Albumin Level 2.7 g/dL (3.5-5.1); Alkaline Phosphatase 46 U/L (38-126); Anion Gap 4 mmol/L (4-12); Aspartate Amino Transferase 22 U/L (14-36); Bilirubin,Total 1.0 mg/dL (0.2-1.3); Blood Urea Nitrogen 13 mg/dL (7-17); Calcium 8.3 mg/dL (8.4-10.2); Carbon Dioxide 27 mmol/L (22-30); Chloride 101 mmol/L (98-107); Estimated Glomerular Filt Rate > 60; Glucose 133 mg/dL (65-110); Magnesium 1.6 mg/dL (1.6-2.3); Potassium 3.4 mmol/L (3.4-5.0); Sodium 132 mmol/L (137-145); Total Protein 5.3 g/dL (6.3-8.2); Transferrin 163 mg/dL (206-381)
--- NOTE | 2025-03-14 07:29 | P.PNIM_ITS ---
Progress Note: A&P Assessment and Plan (1) SBO (small bowel obstruction): Code(s): K56.609 - Unspecified intestinal obstruction, unspecified as to partial versus complete obstruction Status: Acute Assessment and Plan: * CT abdomen/pelvis: * Dilated small bowel loops suggestive of partial versus complete obstruction. * Other appearances are unchanged from previous examination. * bowel rest, NPO. NG place in ED, confirmation via XR * IV fluids: 2L bolus, will hold on further fluids as the patient has history of heart failure with preserved EF * started on Zosyn on 03/06, continued * analgesics p.r.n. * Leukocytosis improving, WBC down from 18.4-12.5 on 03/07 * general surgery consulted * appreciate further recommendations * Water-soluble small-bowel follow-through series today * IV fluid hydration while NPO * Surgical management not rule out at this time, continue to hold Eliquis * Maintain antibiotics, IV fluid hydration, hold Eliquis * Small-bowel follow-through series * no contrast moving to the colon at 5 hours c/w a small bowel obstruction * POD 2 Ex lap for SOB * Improved but still present abdominal pain * NG tube still in place * WBC down to 10.2 * Appreciate further recs from Gen Surg POD 3 Ex lap for SOB * - Patient up to chair working with therapy, c/o pain persisting although more chronic concerns than acute currently. * - Appreciate General surgery recs. POD 4 Ex lap for SOB * - Patient is working with therapy well, cooperative. * - No return of bowel function as of yet. * - NG is clamped. * - Appreciate General surgery recs. POD 5 Ex lap for SOB * - Patient is working with therapy, cooperative. * - No return of bowel function as of yet. * - NG is out, had a small amount of clear liquids. * - Surgery resumed oxycodone, increased hydromorphone. Will dc morphine. * - Appreciate General surgery recs. (2) Chronic hyponatremia: Code(s): E87.1 - Hypo-osmolality and hyponatremia Status: Chronic Assessment and Plan: * Na 127, previously 126 on 02/28 * history chronic hyponatremia, present since 2018 * monitor * 03/11: 130 * 03/12: Stable at 132. * 03/13: Stable. * 03/14: Stable. (3) FARTUN (iron deficiency anemia): Qualifiers: Iron deficiency anemia type: chronic blood loss Qualified Code(s): D50.0 - Iron deficiency anemia secondary to blood loss (chronic) Code(s): D50.9 - Iron deficiency anemia, unspecified Status: Chronic Assessment and Plan: * Hgb 13.7 * Hx: FARTUN * transfuse if <7 * trend * 03/11: Hgb 11.0 * 03/12: Stable hgb 11.1. * 03/13: Stable hgb 11.0 * 03/14: Hgb 10.3 without acute signs of bleeding. (4) Type 2 diabetes mellitus: Qualifiers: Diabetes mellitus complication status: without complication Diabetes mellitus alf insulin use: without longshore equipment operator use Qualified Code(s): E11.9 - Type 2 diabetes mellitus without complications Code(s): E11.9 - Type 2 diabetes mellitus without complications Status: Resolved Assessment and Plan: * hypoglycemia protocol and POC blood glucose Q6H until no longer NPO * history of diabetes, resolved. No longer on medications. * A1C 5.5% on 10/08/2024 * Cont. POC accuchecks until tolerating diet. 03/13 - Stable accuchecks. 03/14 - Stable accuchecks. (5) Atrial fibrillation: Qualifiers: Atrial fibrillation type: paroxysmal Qualified Code(s): I48.0 - Paroxysmal atrial fibrillation Code(s): I48.91 - Unspecified atrial fibrillation Status: Chronic Assessment and Plan: * history of paroxysmal AFib * EKG, initial, 03/06: sinus rhythm, rate 74, LVH, cannot rule out septal infarct age indeterminate, minimal Q-waves high lateral leads. No significant change compared to EKG done on 02/25. * continue home medications 03/12: - Stable rate. Stable on exam. 03/13: - Resume apixaban at surgeon discretion. 03/14: - Rate is stable. Resume apixaban at surgeon discretion. (6) Hypertension: Qualifiers: Hypertension type: primary hypertension Qualified Code(s): I10 - Essential (primary) hypertension Code(s): I10 - Essential (primary) hypertension Status: Chronic Assessment and Plan: * chronic, currently 153/57 * continue home medications * monitor * reviewed and stable * 03/12: Persistent stability. 03/13 - Add prn hydralazine until orals resume - trending higher on recent measurements. 03/14 - Cont. prn hydralazine until orals resume. Plan 03/12: Patient complains of persistent chronic pain acutely worsened d/t weather change. Hx RA. Will increase morphine to 4mg and space out hydromorphone PRN to 3hours. WIll add IV APAP scheduled for 24 hours to ascertain efficacy if formulary available. The ibuprofen IV already on board is a good baseline addition for antiinflammatory effect. 03/13: Aracely Spear is pod 4 from exploratory laparotomy for SBO. She continues to have NG in place (clamped) and no return of bowel function as of yet. Is on TPN. Glucose and elctrolytes are stable. BP trending higher - IV hydralazine added. Encouraged to add in apap supp. to help with pain. 03/14: Aracely Spear is pod 5 from exploratory laparotomy for SBO. NG is out and no return of bowel function as of yet. Is on TPN. Glucose and electrolytes are stable. BP elevated - IV hydralazine added prn. Diet: NPO-NG tube GI Prophylaxis: Pantoprazole DVT Prophylaxis: SCDs, (eliquis on hold) Code Status: Full code Time Spent With Patient Time with patient: 25 - 35 minutes Subjective Date/time seen: 03/14/25 07:29 Interval history: Sharona states she has poor appetite. Has pain in the back and at her IJ site. No BM as of yet. Review of Systems Review of Systems: No new ROS findings. All systems reviewed & are unremarkable except as noted in HPI and below Exam Narrative: GENERAL APPEARANCE: Appears to be in no acute distress. HEAD: normocephalic atraumatic EYES: Vision grossly intact. ENT: Hearing grossly intact, no nasal discharge NECK: Neck supple, trachea midline. CARDIAC: Normal S1/S2. Rhythm is regular. No murmurs, rubs, or gallops. No cyanosis or pallor. Extremities are warm and well perfused. LUNGS: Clear to auscultation without rales, rhonchi, wheezing or diminished breath sounds. Respirations even and unlabored. ABDOMEN: BS positive x 4 quadrants. Soft, nondistended. Midline abdominal incision well approximated.. MSK:fair strength in all extremities. PERIPHERAL VASCULAR: Normal perfusion,No edema. NEURO: Follows commands. No focal deficits. SKIN: [place] without lesions or eruptions. Right IJ CVD dressing c/d/i. PSYCH: Stable, no paranoia or delusional thinking. Objective Data Vital Signs Vital Signs: Vital Signs - 24 hr 03/13/25 08:00 03/13/25 14:00 03/13/25 21:59 Temperature 98.4 F 98.8 F Pulse Rate 81 81 Respiratory Rate 14 18 Blood Pressure 159/78 H 171/83 H Pulse Oximetry 96 96 Oxygen Delivery Room Air Intake/Output Intake/Output: Intake & Output 03/11/25 03/12/25 03/13/25 03/14/25 23:59 23:59 23:59 23:59 Intake Total 3835.3 2688.7 2779.3 104 Output Total 3450 2950 1700 Balance 385.3 -261.3 1079.3 104 Meds/Results Medications: Active Medications Generic Name Dose Route Start Last Admin Trade Name Freq PRN Reason Stop Dose Admin Acetaminophen 650 mg 03/06/25 16:19 Acetaminophen 650 Mg Suppository RECTAL Q6H PRN Mild Pain (1-3) or Fever Al Hydrox/Mg Hydrox/Simethicone 30 ml 03/07/25 10:15 03/14/25 01:02 Mag Hydrox/Al Hydrox/Simeth 30 Ml Udc FEED TUBE 30 ml Q8H GINO Administration Bisacodyl 10 mg 03/12/25 09:00 03/13/25 09:39 Bisacodyl 10 Mg Suppository RECTAL 10 mg QAM GINO Administration Dextrose 12.5 gm 03/06/25 16:19 03/09/25 13:11 Dextrose 50% 25 Gm/50 Ml Syringe IV PUSH 12.5 gm PRN PRN Administration Hypoglycemia Protocol Enoxaparin Sodium 40 mg 03/10/25 09:00 03/13/25 09:39 Enoxaparin 40 Mg/0.4 Ml Syringe SUB-Q 40 mg DAILY GINO Administration Famotidine 20 mg 03/07/25 21:00 03/13/25 21:06 Famotidine 20 Mg/2 Ml Vial IV PUSH 20 mg Q12HR GINO Administration Glucagon 1 mg 03/06/25 16:19 Glucagon For Inj 1 Mg Vial IM PRN PRN Hypoglycemia Protocol Glucose 15 gm 03/06/25 16:19 Glucose Oral Gel 15 Gm Of Glucse In 37.5 Gm Tube PO PRN PRN Hypoglycemia Protocol Hydralazine HCl 10 mg 03/13/25 08:18 Hydralazine Hcl 20 Mg/Ml Vial IV PUSH Q8H PRN Blood Pressure - High Hydromorphone HCl 1 mg 03/13/25 14:32 03/14/25 05:00 Hydromorphone Hcl Inj (*Crx) 2 Mg/Ml Vial IV PUSH 1 mg Q2H PRN Administration Breakthrough Pain Rated 7-10 or NPO Hydromorphone HCl 0.5 mg 03/13/25 14:32 Hydromorphone Hcl Inj (*Crx) 2 Mg/Ml Vial IV PUSH Q2H PRN Breakthrough Pain Rated 4-6 or NPO Dextrose 1,000 mls @ 100 mls/hr 03/06/25 16:19 Dextrose 5% 1,000 Ml IVPB PRN PRN Hypoglycemia Protocol Dextrose 1,000 mls @ 50 mls/hr 03/09/25 17:21 Dextrose 10% IV CONT .Q20H PRN if PN is interrupted Multivitamins 1.25 ml/ 1,002.5 mls @ 40 mls/hr 03/09/25 18:30 03/13/25 18:03 Multivitamins 1.25 ml/ Amino IV CONT 40 mls/hr Acids/Electrolytes/Dextrose .Q24H GINO Administration Protocol Fat Emulsion Intravenous 250 mls @ 20.833 mls/hr 03/09/25 18:30 03/13/25 18:02 Lipids 20% IVPB 20.83 mls/hr Q24H GINO Administration Ibuprofen 400 mg/ Sodium 104 mls @ 200 mls/hr 03/09/25 18:00 03/14/25 05:01 Chloride IVPB 200 mls/hr Q6HR GINO Administration Sodium Chloride 1,000 mls @ 60 mls/hr 03/10/25 08:45 03/13/25 18:07 Normal Saline Iv IV CONT 60 mls/hr .[id number] GINO Administration Insulin Aspart 2 - 5 units 03/10/25 00:00 03/14/25 04:09 Insulin Aspart (*Bkc) 100 Units/Ml SUB-Q Not Given Q6HR GINO Protocol Levothyroxine Sodium 44 mcg 03/08/25 06:30 03/13/25 05:43 Levothyroxine Sodium Inj 100 Mcg/5 Ml Vial IV PUSH 44 mcg DAILY@0630 GINO Administration Lidocaine 1 patch 03/10/25 09:00 03/13/25 09:40 Lidocaine 5% Patch TRANSDERM 1 patch DAILY GINO Administration Miscellaneous Information 1 each 03/13/25 00:01 Clinimix Needs To Be Renewed Or It Will Automatically Discontinue. XX 04/12/25 00:00 CLARIFY GINO Morphine Sulfate 4 mg 03/12/25 10:57 Morphine Sulfate (*Crx) 4 Mg/Ml Inj IV PUSH Q4H PRN Pain Rated 5-7 Naloxone HCl 0.1 mg 03/06/25 16:20 Naloxone Hcl 0.4 Mg/Ml Vial IV PUSH Q5MIN PRN Sedation Ondansetron HCl 4 mg 03/08/25 04:20 03/12/25 16:09 Ondansetron Inj 4 Mg/2 Ml Vial IV PUSH 4 mg Q6H PRN Administration Nausea And Vomiting Ondansetron HCl 4 mg 03/09/25 13:48 Ondansetron Inj 4 Mg/2 Ml Vial IV PUSH ONCE PRN Nausea Oxycodone/Acetaminophen 1 tab 03/13/25 14:26 Oxycodone/Acetaminophen (*Crx) 10-325 Mg Tablet PO Q6H PRN Pain (Scale Score 4-6) Sodium Chloride 10 ml 03/10/25 06:56 03/11/25 18:09 Central Line Flush IV PUSH 10 ml PRN PRN Administration with TPN bag changes Sodium Chloride 10 ml 03/10/25 14:00 03/14/25 05:33 Central Line Flush IV PUSH 10 ml Q8HR GINO Administration Sodium Chloride 20 ml 03/10/25 06:56 Central Line Flush IV PUSH PRN PRN after blood draws Radiology Results: ITS Impressions Abdomen/Pelvis CT 03/06/25 14:15 IMPRESSION: 1. Dilated small bowel loops suggestive of partial versus complete obstruction. 2. Other appearances are unchanged from previous examination. Small Bowel X-Ray 03/07/25 17:39 IMPRESSION: 1. Slow progression of contrast through several loops of dilated small bowel in the central abdomen with no contrast in colon by 5 hours consistent with a small bowel obstruction. 2. Small to moderate-sized sliding-type hiatal hernia with gastroesophageal reflux. Chest X-Ray 03/09/25 16:41 IMPRESSION: Highly suggestive air under the right hemidiaphragm. Clinical correlation and repeat exam is advised. No acute cardiopulmonary pathology. Supporting lines as described above. Nurse Cherie was notified with the result of the patient at 4:45 PM on March 09, 2025 Abdomen X-Ray 03/09/25 17:41 IMPRESSION: Nasogastric tube presumably in good position and ready for immediate use. Labs Labs: Laboratory Results - last 24 hr 03/13/25 03/13/25 03/14/25 12:26 18:04 01:03 WBC RBC Hgb Hct MCV MCH MCHC RDW Plt Count MPV Immature Gran % (Auto) Neut % (Auto) Lymph % (Auto) [place] % (Auto) Eos % (Auto) Baso % (Auto) Lymph # (Auto) [place] # (Auto) Eos # (Auto) Baso # (Auto) Abs Immat Gran (auto) Absolute Neuts (auto) Absolute Nucleated RBC Nucleated RBC % PT INR APTT Sodium Potassium Chloride Carbon Dioxide Anion Gap BUN Creatinine Estim Creat Clear Calc Estimated GFR Glucose POC Capillary Glucose 154 H 168 H 153 H Calcium Phosphorus Magnesium Transferrin Total Bilirubin AST ALT Alkaline Phosphatase Total Protein Albumin 03/14/25 05:30 WBC 9.6 RBC 3.19 L Hgb 10.3 L Hct 31.3 L MCV 98.1 MCH 32.3 MCHC 32.9 RDW 12.7 Plt Count 215 MPV 9.7 Immature Gran % (Auto) 0.4 Neut % (Auto) 74.3 H Lymph % (Auto) 16.3 L [place] % (Auto) 6.6 Eos % (Auto) 2.1 Baso % (Auto) 0.3 Lymph # (Auto) 1.56 [place] # (Auto) 0.6 Eos # (Auto) 0.2 Baso # (Auto) 0.0 Abs Immat Gran (auto) 0.04 H Absolute Neuts (auto) 7.1 H Absolute Nucleated RBC 0.000 Nucleated RBC % 0.0 PT 13.3 INR 1.0 APTT 30.0 Sodium 132 L Potassium 3.4 Chloride 101 Carbon Dioxide 27 Anion Gap 4 BUN 13 Creatinine 0.55 L Estim Creat Clear Calc Not Reportable Estimated GFR > 60 Glucose 133 H POC Capillary Glucose Calcium 8.3 L Phosphorus 3.3 Magnesium 1.6 Transferrin 163 L Total Bilirubin 1.0 AST 22 ALT 13 Alkaline Phosphatase 46 Total Protein 5.3 L Albumin 2.7 L Quality VTE Prophylaxis VTE prophylaxis: mechanical ordered and pharmacologic ordered Hospitalist MIPS Advance Care Plan I have confirmed that the patient's Advanced Care Plan is present, code status is documented, or surrogate decision maker is listed in patient medical record.: Yes Medication Reconciliation I have utilized all available resources to obtain, update and review the patients current medications (includes all prescriptions, OTC, herbals, cannabis, and nutritional supplements).: Yes
[2025-03-14 08:00] VITALS: PULSE 79; RESP 18; O2SAT 100
[2025-03-14] MEDS: ENOXAPARIN 40 MG/0.4 ML SYRINGE SUB-Q (09:05)
[2025-03-14] MEDS: BISACODYL 10 MG SUPPOSITORY RECTAL (09:05)
[2025-03-14] MEDS: FAMOTIDINE 20 MG/2 ML VIAL IV PUSH ×2 (09:05→20:02)
[2025-03-14] MEDS: LIDOCAINE 5% PATCH 1 PATCH TRANSDERM (09:06)
--- NOTE | 2025-03-14 10:52 | P.PNGS_ITS ---
Progress Note: A&P Assessment and Plan (1) SBO (small bowel obstruction): Code(s): K56.609 - Unspecified intestinal obstruction, unspecified as to partial versus complete obstruction Status: Acute Assessment and Plan: * Await return of bowel function * NG tube removed yesterday. Tolerating clear liquids without nausea or vomiting. Patient is hesitant to advance to full liquids. Consider advancing diet with option to still have clears. * No bowel movement yet. Continue Dulcolax suppository. Ambulation and activity encouraged, as well as oral food intake. Informed that narcotics can cause constipation. * Continue TPN until tolerating diet. (2) Type 2 diabetes mellitus: Qualifiers: Diabetes mellitus half-way insulin use: without terminal gauger supervisor use Diabetes mellitus complication status: without complication Qualified Code(s): E11.9 - Type 2 diabetes mellitus without complications Code(s): E11.9 - Type 2 diabetes mellitus without complications Status: Resolved Assessment and Plan: * Controlled on last hgb A1C in September. Management per Hospitalist. (3) Chronic anticoagulation: Code(s): Z79.01 - [facility]FP (current) use of anticoagulants Status: Chronic Assessment and Plan: * Continue to hold Eliquis until patient is taking orals. (4) Paroxysmal A-fib: Code(s): I48.0 - Paroxysmal atrial fibrillation Status: Acute Assessment and Plan: * Patient has a history of paroxysmal afib and was recently evaluated by [facility] rdiology on 03/02/25. She has had recent complaints of palpitations and Cardiology put on a 30-day traffic monitor specialist to assess for occurrence/frequency of afib and heart rate when in afib. (5) Carotid artery stenosis: Code(s): I65.29 - Occlusion and stenosis of unspecified carotid artery Status: Acute (6) Heart failure with preserved ejection fraction: Qualifiers: Heart failure chronicity: chronic Qualified Code(s): I50.32 - Chronic diastolic (congestive) heart failure Code(s): I50.30 - Unspecified diastolic (congestive) heart failure Status: Acute (7) Chronic, continuous use of opioids: Code(s): F11.90 - Opioid use, unspecified, uncomplicated Status: Acute Assessment and Plan: * Chronic opioid use could make postoperative pain control difficult. Patient is still getting dilaudid 1 mg. Will resume home dose of Oxycodone. Subjective Subjective Date/Time Seen: 03/14/25 10:52 Post Op day: 5 Patient reports: still having pain and no bowel movement Interval history: Patient is still complaining of pain requiring Dilaudid. When asked to locate pain she notes chronic back pain from RA and irrritation from her central line. Patient states that she usually takes oxycodone for pain when at home. However, she does not feel comfortable weaning off of Dilaudid yet. Incisional pain is minimal. NG tube pulled yesterday. Patient has been tolerating clear liquids without nausea or vomiting, however she states that she does not feel ready to advance o a full liquid diet. No bowel movement yet. Patient reports passing flatus and per nursing staff she had mucous-like rectal discharge last night. Exam GI: Inspection: non-distended, incision (intact with glue) and no visible herniation Auscultation: abnormal bowel sounds (hypoactive), absent bowel sounds and Hypoactive bowel sounds present Other: Minimal abdominal tenderness. Incision is clean and dry with no areas of dehiscence, purulence, or necrosis. Small amount of bruising to upper portion of incision. Objective Data Vital Signs Vital Signs: Vital Signs - 24 hr 03/13/25 14:00 03/13/25 21:59 03/14/25 06:00 Temperature 98.4 F 98.8 F 97.7 F Pulse Rate 81 81 79 Respiratory Rate 14 18 18 Blood Pressure 159/78 H 171/83 H 157/72 H Pulse Oximetry 96 96 97 Intake/Output Intake/Output: Intake & Output 03/11/25 03/12/25 03/13/25 03/14/25 23:59 23:59 23:59 23:59 Intake Total 3835.3 2688.7 2779.3 344 Output Total 3450 2950 1700 600 Balance 385.3 -261.3 1079.3 -256 Meds/Results Medications: Active Medications Generic Name Dose Route Start Last Admin Trade Name Freq PRN Reason Stop Dose Admin Acetaminophen 650 mg 03/06/25 16:19 Acetaminophen 650 Mg Suppository RECTAL Q6H PRN Mild Pain (1-3) or Fever Al Hydrox/Mg Hydrox/Simethicone 30 ml 03/07/25 10:15 03/14/25 09:21 Mag Hydrox/Al Hydrox/Simeth 30 Ml Udc FEED TUBE 30 ml Q8H GINO Administration Bisacodyl 10 mg 03/12/25 09:00 03/14/25 09:05 Bisacodyl 10 Mg Suppository RECTAL 10 mg QAM GINO Administration Dextrose 12.5 gm 03/06/25 16:19 03/09/25 13:11 Dextrose 50% 25 Gm/50 Ml Syringe IV PUSH 12.5 gm PRN PRN Administration Hypoglycemia Protocol Enoxaparin Sodium 40 mg 03/10/25 09:00 03/14/25 09:05 Enoxaparin 40 Mg/0.4 Ml Syringe SUB-Q 40 mg DAILY GINO Administration Famotidine 20 mg 03/07/25 21:00 03/14/25 09:05 Famotidine 20 Mg/2 Ml Vial IV PUSH 20 mg Q12HR GINO Administration Glucagon 1 mg 03/06/25 16:19 Glucagon For Inj 1 Mg Vial IM PRN PRN Hypoglycemia Protocol Glucose 15 gm 03/06/25 16:19 Glucose Oral Gel 15 Gm Of Glucse In 37.5 Gm Tube PO PRN PRN Hypoglycemia Protocol Hydralazine HCl 10 mg 03/13/25 08:18 Hydralazine Hcl 20 Mg/Ml Vial IV PUSH Q8H PRN Blood Pressure - High Hydromorphone HCl 1 mg 03/13/25 14:32 03/14/25 09:04 Hydromorphone Hcl Inj (*Crx) 2 Mg/Ml Vial IV PUSH 1 mg Q2H PRN Administration Breakthrough Pain Rated 7-10 or NPO Hydromorphone HCl 0.5 mg 03/13/25 14:32 Hydromorphone Hcl Inj (*Crx) 2 Mg/Ml Vial IV PUSH Q2H PRN Breakthrough Pain Rated 4-6 or NPO Dextrose 1,000 mls @ 100 mls/hr 03/06/25 16:19 Dextrose 5% 1,000 Ml IVPB PRN PRN Hypoglycemia Protocol Dextrose 1,000 mls @ 50 mls/hr 03/09/25 17:21 Dextrose 10% IV CONT .Q20H PRN if PN is interrupted Multivitamins 1.25 ml/ 1,002.5 mls @ 40 mls/hr 03/09/25 18:30 03/13/25 18:03 Multivitamins 1.25 ml/ Amino IV CONT 40 mls/hr Acids/Electrolytes/Dextrose .Q24H GINO Administration Protocol Fat Emulsion Intravenous 250 mls @ 20.833 mls/hr 03/09/25 18:30 03/13/25 18 :02 Lipids 20% IVPB 20.83 mls/hr Q24H GINO Administration Ibuprofen 400 mg/ Sodium 104 mls @ 200 mls/hr 03/09/25 18:00 03/14/25 05:01 Chloride IVPB 200 mls/hr Q6HR GINO Administration Sodium Chloride 1,000 mls @ 60 mls/hr 03/10/25 08:45 03/13/25 18:07 Normal Saline Iv IV CONT 60 mls/hr .[id number] GINO Administration Insulin Aspart 2 - 5 units 03/10/25 00:00 03/14/25 09:06 Insulin Aspart (*Bkc) 100 Units/Ml SUB-Q Not Given Q6HR [facility] Protocol Levothyroxine Sodium 44 mcg 03/08/25 06:30 03/14/25 09:06 Levothyroxine Sodium Inj 100 Mcg/5 Ml Vial IV PUSH Not Given DAILY@0630 [facility] Lidocaine 1 patch 03/10/25 09:00 03/14/25 09:06 Lidocaine 5% Patch TRANSDERM 1 patch DAILY GINO Administration Miscellaneous Information 1 each 03/13/25 00:01 Clinimix Needs To Be Renewed Or It Will Automatically Discontinue. XX 04/12/25 00:00 CLARIFY [facility] Naloxone HCl 0.1 mg 03/06/25 16:20 Naloxone Hcl 0.4 Mg/Ml Vial IV PUSH Q5MIN PRN Sedation Ondansetron HCl 4 mg 03/08/25 04:20 03/12/25 16:09 Ondansetron Inj 4 Mg/2 Ml Vial IV PUSH 4 mg Q6H PRN Administration Nausea And Vomiting Ondansetron HCl 4 mg 03/09/25 13:48 Ondansetron Inj 4 Mg/2 Ml Vial IV PUSH ONCE PRN Nausea Oxycodone/Acetaminophen 1 tab 03/13/25 14:26 Oxycodone/Acetaminophen (*Crx) 10-325 Mg Tablet PO Q6H PRN Pain (Scale Score 4-6) Sodium Chloride 10 ml 03/10/25 06:56 03/11/25 18:09 Central Line Flush IV PUSH 10 ml PRN PRN Administration with TPN bag changes Sodium Chloride 10 ml 03/10/25 14:00 03/14/25 05:33 Central Line Flush IV PUSH 10 ml Q8HR GINO Administration Sodium Chloride 20 ml 03/10/25 06:56 Central Line Flush IV PUSH PRN PRN after blood draws Radiology Results: ITS Impressions Abdomen/Pelvis CT 03/06/25 14:15 IMPRESSION: 1. Dilated small bowel loops suggestive of partial versus complete obstruction. 2. Other appearances are unchanged from previous examination. Small Bowel X-Ray 03/07/25 17:39 IMPRESSION: 1. Slow progression of contrast through several loops of dilated small bowel in the central abdomen with no contrast in colon by 5 hours consistent with a small bowel obstruction. 2. Small to moderate-sized sliding-type hiatal hernia with gastroesophageal reflux. Chest X-Ray 03/09/25 16:41 IMPRESSION: Highly suggestive air under the right hemidiaphragm. Clinical correlation and repeat exam is advised. No acute cardiopulmonary pathology. Supporting lines as described above. Nurse Cherie was notified with the result of the patient at 4:45 PM on March 09, 2025 Abdomen X-Ray 03/09/25 17:41 IMPRESSION: Nasogastric tube presumably in good position and ready for immediate use. Labs Labs: Laboratory Results - last 24 hr 03/13/25 03/13/25 03/14/25 12:26 18:04 01:03 WBC RBC Hgb Hct MCV MCH MCHC RDW Plt Count MPV Immature Gran % (Auto) Neut % (Auto) Lymph % (Auto) [place] % (Auto) Eos % (Auto) Baso % (Auto) Lymph # (Auto) [place] # (Auto) Eos # (Auto) Baso # (Auto) Abs Immat Gran (auto) Absolute Neuts (auto) Absolute Nucleated RBC Nucleated RBC % PT INR APTT Sodium Potassium Chloride Carbon Dioxide Anion Gap BUN Creatinine Estim Creat Clear Calc Estimated GFR Glucose POC Capillary Glucose 154 H 168 H 153 H Calcium Phosphorus Magnesium Transferrin Total Bilirubin AST ALT Alkaline Phosphatase Total Protein Albumin 03/14/25 05:30 WBC 9.6 RBC 3.19 L Hgb 10.3 L Hct 31.3 L MCV 98.1 MCH 32.3 MCHC 32.9 RDW 12.7 Plt Count 215 MPV 9.7 Immature Gran % (Auto) 0.4 Neut % (Auto) 74.3 H Lymph % (Auto) 16.3 L [place] % (Auto) 6.6 Eos % (Auto) 2.1 Baso % (Auto) 0.3 Lymph # (Auto) 1.56 [place] # (Auto) 0.6 Eos # (Auto) 0.2 Baso # (Auto) 0.0 Abs Immat Gran (auto) 0.04 H Absolute Neuts (auto) 7.1 H Absolute Nucleated RBC 0.000 Nucleated RBC % 0.0 PT 13.3 INR 1.0 APTT 30.0 Sodium 132 L Potassium 3.4 Chloride 101 Carbon Dioxide 27 Anion Gap 4 BUN 13 Creatinine 0.55 L Estim Creat Clear Calc Not Reportable Estimated GFR > 60 Glucose 133 H POC Capillary Glucose Calcium 8.3 L Phosphorus 3.3 Magnesium 1.6 Transferrin 163 L Total Bilirubin 1.0 AST 22 ALT 13 Alkaline Phosphatase 46 Total Protein 5.3 L Albumin 2.7 L
[2025-03-14] MEDS: HYDROmorphone HCL INJ (*CRX) 2 MG/ML VIAL 0.5 MG IV PUSH (13:09)
[2025-03-14] MEDS: SODIUM CHLORIDE 0.9% IV 1,000 ML 60 ML IV CONT (13:15)
[2025-03-14 14:00] VITALS: BP 121/66; PULSE 79; RESP 18; TEMP 36.6; O2SAT 100
[2025-03-14] MEDS: AMINO ACIDS 5%/D15W/E-LYTES/CA 1,000 ML with MULTIVITAMINS-12 INJ VIAL 1 1.25 ML, MULTI... 40 ML IV CONT (18:02)
[2025-03-14] MEDS: FAT EMULSIONS IV 20% 250 ML 20.83 ML IVPB (18:03)
[2025-03-14 18:41] LABS: Triglycerides 110 mg/dL (<150)
[2025-03-14 19:23] VITALS: PULSE 94; RESP 20; O2SAT 97
[2025-03-14] MEDS: APIXABAN 2.5 MG TABLET PO (20:02)
[2025-03-14] MEDS: oxyCODONE/ACETAMINOPHEN (*CRX) 10-325 MG TABLET 1 TAB PO (20:10)
[2025-03-14 22:16] VITALS: BP 124/53; PULSE 78; RESP 18; TEMP 36.9; O2SAT 97
[2025-03-15] MEDS: MAG HYDROX/AL HYDROX/SIMETH 30 ML UDC FEED TUBE (02:17)
[2025-03-15] MEDS: HYDROmorphone HCL INJ (*CRX) 2 MG/ML VIAL 1 MG IV PUSH ×2 (02:48→06:45)
[2025-03-15] MEDS: CENTRAL LINE FLUSH 10 ML IV PUSH ×3 (05:38→20:52)
[2025-03-15] MEDS: LEVOTHYROXINE SODIUM INJ 100 MCG/5 ML VIAL 44 MCG IV PUSH (05:38)
[2025-03-15] MEDS: SODIUM CHLORIDE 0.9% IV 1,000 ML 60 ML IV CONT (05:38)
[2025-03-15] MEDS: IBUPROFEN IV 400 MG in SODIUM CHLORIDE 0.9% IV 100 ML 200 MG IVPB ×4 (05:38→23:56)
[2025-03-15 06:00] VITALS: BP 140/48; PULSE 67; RESP 18; TEMP 36.7; O2SAT 99
[2025-03-15 06:16] LABS: Anion Gap 2 mmol/L (4-12); Blood Urea Nitrogen 16 mg/dL (7-17); Calcium 8.2 mg/dL (8.4-10.2); Carbon Dioxide 28 mmol/L (22-30); Chloride 101 mmol/L (98-107); Estimated Glomerular Filt Rate > 60; Glucose 113 mg/dL (65-110); Potassium 3.4 mmol/L (3.4-5.0); Sodium 131 mmol/L (137-145)
[2025-03-15 08:00] VITALS: O2SAT 99
--- NOTE | 2025-03-15 08:28 | P.PNIM_ITS ---
Progress Note: A&P Assessment and Plan (1) SBO (small bowel obstruction): Code(s): K56.609 - Unspecified intestinal obstruction, unspecified as to partial versus complete obstruction Status: Acute Assessment and Plan: * CT abdomen/pelvis: * Dilated small bowel loops suggestive of partial versus complete obstruction. * Other appearances are unchanged from previous examination. * bowel rest, NPO. NG place in ED, confirmation via XR * IV fluids: 2L bolus, will hold on further fluids as the patient has history of heart failure with preserved EF * started on Zosyn on 03/06, continued * analgesics p.r.n. * Leukocytosis improving, WBC down from 18.4-12.5 on 03/07 * general surgery consulted * appreciate further recommendations * Water-soluble small-bowel follow-through series today * IV fluid hydration while NPO * Surgical management not rule out at this time, continue to hold Eliquis * Maintain antibiotics, IV fluid hydration, hold Eliquis * Small-bowel follow-through series * no contrast moving to the colon at 5 hours c/w a small bowel obstruction * POD 2 Ex lap for SOB * Improved but still present abdominal pain * NG tube still in place * WBC down to 10.2 * Appreciate further recs from Gen Surg POD 3 Ex lap for SOB * - Patient up to chair working with therapy, c/o pain persisting although more chronic concerns than acute currently. * - Appreciate General surgery recs. POD 4 Ex lap for SOB * - Patient is working with therapy well, cooperative. * - No return of bowel function as of yet. * - NG is clamped. * - Appreciate General surgery recs. POD 5 Ex lap for SOB * - Patient is working with therapy, cooperative. * - No return of bowel function as of yet. * - NG is out, had a small amount of clear liquids. * - Surgery resumed oxycodone, increased hydromorphone. Will dc morphine. * - Appreciate General surgery recs. POD 6 Ex Lap for SOB * NG is out, BM last pm. * continues with oxycodone * will discontinue hydromorphone. * Surgery continues to monitor (2) Chronic hyponatremia: Code(s): E87.1 - Hypo-osmolality and hyponatremia Status: Chronic Assessment and Plan: * Na 127, previously 126 on 02/28 * history chronic hyponatremia, present since 2018 * monitor * 6/27: 130 * 03/12: Stable at 132. * 03/13: Stable. * 03/14: Stable. * 03/15: stable (3) FARTUN (iron deficiency anemia): Qualifiers: Iron deficiency anemia type: chronic blood loss Qualified Code(s): D50.0 - Iron deficiency anemia secondary to blood loss (chronic) Code(s): D50.9 - Iron deficiency anemia, unspecified Status: Chronic Assessment and Plan: * Hgb 13.7 * Hx: FARTUN * transfuse if <7 * trend * 03/11: Hgb 11.0 * 03/12: Stable hgb 11.1. * 03/13: Stable hgb 11.0 * 03/14: Hgb 10.3 without acute signs of bleeding. * 03/15: stable (4) Type 2 diabetes mellitus: Qualifiers: Diabetes mellitus complication status: without complication Diabetes mellitus residential insulin use: without long term care pharmacist use Qualified Code(s): E11.9 - Type 2 diabetes mellitus without complications Code(s): E11.9 - Type 2 diabetes mellitus without complications Status: Resolved Assessment and Plan: * hypoglycemia protocol and POC blood glucose Q6H until no longer NPO * history of diabetes, resolved. No longer on medications. * A1C 5.5% on 10/08/2024 * Cont. POC accuchecks until tolerating diet. 03/13 - Stable accuchecks. 03/14 - Stable accuchecks. 03/15: - stable accuchecks (5) Atrial fibrillation: Qualifiers: Atrial fibrillation type: paroxysmal Qualified Code(s): I48.0 - Paroxysmal atrial fibrillation Code(s): I48.91 - Unspecified atrial fibrillation Status: Chronic Assessment and Plan: * history of paroxysmal AFib * EKG, initial, 03/06: sinus rhythm, rate 74, LVH, cannot rule out septal infarct age indeterminate, minimal Q-waves high lateral leads. No significant change compared to EKG done on 02/25. * continue home medications 03/12: - Stable rate. Stable on exam. 03/13: - Resume apixaban at surgeon discretion. 03/14: - Rate is stable. Resume apixaban at surgeon discretion. 03/15: - rate stable. resume apixaban per surgeon discretion. (6) Hypertension: Qualifiers: Hypertension type: primary hypertension Qualified Code(s): I10 - Essential (primary) hypertension Code(s): I10 - Essential (primary) hypertension Status: Chronic Assessment and Plan: * chronic, currently 153/57 * continue home medications * monitor * reviewed and stable * 03/12: Persistent stability. 03/13 - Add prn hydralazine until orals resume - trending higher on recent measurements. 03/14 - Cont. prn hydralazine until orals resume. 03/15: - stable today, continue to monitor Plan 03/12: Patient complains of persistent chronic pain acutely worsened d/t weather change. Hx RA. Will increase morphine to 4mg and space out hydromorphone PRN to 3hours. WIll add IV APAP scheduled for 24 hours to ascertain efficacy if formulary available. The ibuprofen IV already on board is a good baseline addition for antiinflammatory effect. 03/13: Aracely Spear is pod 4 from exploratory laparotomy for SBO. She continues to have NG in place (clamped) and no return of bowel function as of yet. Is on TPN. Glucose and elctrolytes are stable. BP trending higher - IV hydralazine added. Encouraged to add in apap supp. to help with pain. 03/14: Aracely Spear is pod 5 from exploratory laparotomy for SBO. NG is out and no return of bowel function as of yet. Is on TPN. Glucose and electrolytes are stable. BP elevated - IV hydralazine added prn. 03/15: Patient is POD 6 from Ex lap for SBO. Patient is tolerated full liquid diet. patient is able to ambulate, she is still on TPN due to low intake. Patient has chronic back pain and she is utilizing IV medication for back pain, will resume PO medications and Lidocaine patches. Diet: Full iquid, will advance per surgery discretion GI Prophylaxis: Pantoprazole DVT Prophylaxis: SCDs, (eliquis on hold) Code Status: Full code Disposition: will discharge home once stable and cleared for d/c by surgery Time Spent With Patient Time with patient: Greater than 35 minutes Subjective Date/time seen: 03/15/25 08:28 Interval history: Sharona states she has poor appetite. Has pain in the back and at her IJ site. Patient did have BM last pm. patient is doing well with full liquid diet. she is able to ambulate slowly in room. patient is sitting up in chair this am. Still has poor appetite. Review of Systems Review of Systems: No new ROS findings. All systems reviewed & are unremarkable except as noted in HPI and below Exam Narrative: GENERAL APPEARANCE: Appears to be in no acute distress. HEAD: normocephalic atraumatic EYES: Vision grossly intact. ENT: Hearing grossly intact, no nasal discharge NECK: Neck supple, trachea midline. CARDIAC: Normal S1/S2. Rhythm is regular. No murmurs, rubs, or gallops. No cyanosis or pallor. Extremities are warm and well perfused. LUNGS: Clear to auscultation without rales, rhonchi, wheezing or diminished breath sounds. Respirations even and unlabored. ABDOMEN: BS positive x 4 quadrants. Soft, nondistended. Midline abdominal incision well approximated.. MSK:fair strength in all extremities. PERIPHERAL VASCULAR: Normal perfusion,No edema. NEURO: Follows commands. No focal deficits. SKIN: [place] without lesions or eruptions. Right IJ CVD dressing c/d/i. PSYCH: Stable, no paranoia or delusional thinking. Const: General: no acute distress and uncomfortable Other: , female, elderly, diffuse discomfort HENMT: Face/Nose/Sinus: Normal nares present Mouth: Yes moist mucous membranes Other: NG in place to right nare Eyes: General: appearance normal, both eyes and all related structures Sclera: sclerae normal Pupils: Equal, round and reactive pupils present EOM: EOMs intact bilaterally Resp: Effort & Inspection: normal respiratory effort Auscultation: clear to auscultation bilaterally Cardio: Rate: regular rate Rhythm: regular rhythm Other: S1-S2 present without murmur, rub, ectopy GI: Other: Hyperactive bowel sounds in all quadrants, mild tenderness that is diffuse, abdomen soft Skin: General skin exam: normal color and no rashes or lesions noted Wounds: no wounds Neuro: Cranial nerves: Yes Equal, round and reactive pupils present Speech: normal speech Motor exam (neuro): 5/5 motor strength present throughout Sensory Exam: normal sensation Other: A&O x4 Extrem: General: normal to inspection Psych: Mental Status: mental status grossly normal Affect: Anxious affect present Other: Patient tearful, restless, fair insight and judgment. Objective Data Vital Signs Vital Signs: Vital Signs - 24 hr 03/14/25 14:00 03/14/25 19:23 03/14/25 20:00 Temperature 97.8 F Pulse Rate 79 94 Respiratory Rate 18 20 Blood Pressure 121/66 Pulse Oximetry 100 97 Oxygen Delivery Room Air Room Air Fraction of Inspired Oxygen 21 03/14/25 22:16 03/15/25 06:00 Temperature 98.4 F 98.0 F Pulse Rate 78 67 Respiratory Rate 18 18 Blood Pressure 124/53 L 140/48 L Pulse Oximetry 97 99 Oxygen Delivery Fraction of Inspired Oxygen Intake/Output Intake/Output: Intake & Output 03/12/25 03/13/25 03/14/25 03/15/25 23:59 23:59 23:59 23:59 Intake Total 2688.7 2779.3 3449.3 1087 Output Total 2950 1700 1900 1100 Balance -261.3 1079.3 1549.3 -13 Meds/Results Medications: Active Medications Generic Name Dose Route Start Last Admin Trade Name Freq PRN Reason Stop Dose Admin Acetaminophen 650 mg 03/06/25 16:19 Acetaminophen 650 Mg Suppository RECTAL Q6H PRN Mild Pain (1-3) or Fever Al Hydrox/Mg Hydrox/Simethicone 30 ml 03/07/25 10:15 03/15/25 02:17 Mag Hydrox/Al Hydrox/Simeth 30 Ml Udc FEED TUBE 30 ml Q8H GINO Administration Apixaban 2.5 mg 03/14/25 21:00 03/14/25 20:02 Apixaban 2.5 Mg Tablet PO 2.5 mg Q12HR GINO Administration Bisacodyl 10 mg 03/12/25 09:00 03/14/25 09:05 Bisacodyl 10 Mg Suppository RECTAL 10 mg QAM GINO Administration Dextrose 12.5 gm 03/06/25 16:19 03/09/25 13:11 Dextrose 50% 25 Gm/50 Ml Syringe IV PUSH 12.5 gm PRN PRN Administration Hypoglycemia Protocol Enoxaparin Sodium 40 mg 03/10/25 09:00 03/14/25 09:05 Enoxaparin 40 Mg/0.4 Ml Syringe SUB-Q 40 mg DAILY GINO Administration Famotidine 20 mg 03/07/25 21:00 03/14/25 20:02 Famotidine 20 Mg/2 Ml Vial IV PUSH 20 mg Q12HR GINO Administration Glucagon 1 mg 03/06/25 16:19 Glucagon For Inj 1 Mg Vial IM PRN PRN Hypoglycemia Protocol Glucose 15 gm 03/06/25 16:19 Glucose Oral Gel 15 Gm Of Glucse In 37.5 Gm Tube PO PRN PRN Hypoglycemia Protocol Hydralazine HCl 10 mg 03/13/25 08:18 Hydralazine Hcl 20 Mg/Ml Vial IV PUSH Q8H PRN Blood Pressure - High Hydromorphone HCl 1 mg 03/13/25 14:32 03/15/25 06:45 Hydromorphone Hcl Inj (*Crx) 2 Mg/Ml Vial IV PUSH 1 mg Q2H PRN Administration Breakthrough Pain Rated 7-10 or NPO Hydromorphone HCl 0.5 mg 03/13/25 14:32 03/14/25 13:09 Hydromorphone Hcl Inj (*Crx) 2 Mg/Ml Vial IV PUSH 0.5 mg Q2H PRN Administration Breakthrough Pain Rated 4-6 or NPO Dextrose 1,000 mls @ 100 mls/hr 03/06/25 16:19 Dextrose 5% 1,000 Ml IVPB PRN PRN Hypoglycemia Protocol Dextrose 1,000 mls @ 50 mls/hr 03/09/25 17:21 Dextrose 10% IV CONT .Q20H PRN if PN is interrupted Multivitamins 1.25 ml/ 1,002.5 mls @ 40 mls/hr 03/09/25 18:30 03/14/25 18:02 Multivitamins 1.25 ml/ Amino IV CONT 40 mls/hr Acids/Electrolytes/Dextrose .Q24H GINO Administration Protocol Fat Emulsion Intravenous 250 mls @ 20.833 mls/hr 03/09/25 18:30 03/14/25 18:03 Lipids 20% IVPB 20.83 mls/hr Q24H GINO Administration Ibuprofen 400 mg/ Sodium 104 mls @ 200 mls/hr 03/09/25 18:00 03/15/25 06:10 Chloride IVPB Infused Q6HR GINO Infusion Sodium Chloride 1,000 mls @ 60 mls/hr 03/10/25 08:45 03/15/25 05:38 Normal Saline Iv IV CONT 60 mls/hr .[id number] GINO Administration Insulin Aspart 2 - 5 units 03/10/25 00:00 03/15/25 06:15 Insulin Aspart (*Bkc) 100 Units/Ml SUB-Q Not Given Q6HR [facility] Protocol Levothyroxine Sodium 44 mcg 03/08/25 06:30 03/15/25 05:38 Levothyroxine Sodium Inj 100 Mcg/5 Ml Vial IV PUSH 44 mcg DAILY@0630 GINO Administration Lidocaine 1 patch 03/10/25 09:00 03/14/25 09:06 Lidocaine 5% Patch TRANSDERM 1 patch DAILY GINO Administration Miscellaneous Information 1 each 03/13/25 00:01 Clinimix Needs To Be Renewed Or It Will Automatically Discontinue. XX 04/12/25 00:00 CLARIFY GINO Naloxone HCl 0.1 mg 03/06/25 16:20 Naloxone Hcl 0.4 Mg/Ml Vial IV PUSH Q5MIN PRN Sedation Ondansetron HCl 4 mg 03/08/25 04:20 03/12/25 16:09 Ondansetron Inj 4 Mg/2 Ml Vial IV PUSH 4 mg Q6H PRN Administration Nausea And Vomiting Ondansetron HCl 4 mg 03/09/25 13:48 Ondansetron Inj 4 Mg/2 Ml Vial IV PUSH ONCE PRN Nausea Oxycodone/Acetaminophen 1 tab 03/13/25 14:26 03/14/25 20:10 Oxycodone/Acetaminophen (*Crx) 10-325 Mg Tablet PO 1 tab Q6H PRN Administration Pain (Scale Score 4-6) Sodium Chloride 10 ml 03/10/25 06:56 03/11/25 18:09 Central Line Flush IV PUSH 10 ml PRN PRN Administration with TPN bag changes Sodium Chloride 10 ml 03/10/25 14:00 03/15/25 05:38 Central Line Flush IV PUSH 10 ml Q8HR GINO Administration Sodium Chloride 20 ml 03/10/25 06:56 Central Line Flush IV PUSH PRN PRN after blood draws Radiology Results: ITS Impressions Abdomen/Pelvis CT 03/06/25 14:15 IMPRESSION: 1. Dilated small bowel loops suggestive of partial versus complete obstruction. 2. Other appearances are unchanged from previous examination. Small Bowel X-Ray 03/07/25 17:39 IMPRESSION: 1. Slow progression of contrast through several loops of dilated small bowel in the central abdomen with no contrast in colon by 5 hours consistent with a small bowel obstruction. 2. Small to moderate-sized sliding-type hiatal hernia with gastroesophageal reflux. Chest X-Ray 03/09/25 16:41 IMPRESSION: Highly suggestive air under the right hemidiaphragm. Clinical correlation and repeat exam is advised. No acute cardiopulmonary pathology. Supporting lines as described above. Nurse Cherie was notified with the result of the patient at 4:45 PM on March 09, 2025 Abdomen X-Ray 03/09/25 17:41 IMPRESSION: Nasogastric tube presumably in good position and ready for immediate use. Labs Labs: Laboratory Results - last 24 hr 03/14/25 03/14/25 03/14/25 12:26 17:38 18:20 Sodium Potassium Chloride Carbon Dioxide Anion Gap BUN Creatinine Estim Creat Clear Calc Estimated GFR Glucose POC Capillary Glucose 129 H 110 H Calcium Phosphorus Triglycerides 110 03/15/25 03/15/25 03/15/25 00:31 05:41 06:06 Sodium 131 L Potassium 3.4 Chloride 101 Carbon Dioxide 28 Anion Gap 2 L BUN 16 Creatinine 0.61 L Estim Creat Clear Calc Not Reportable Estimated GFR > 60 Glucose 113 H POC Capillary Glucose 120 H 130 H Calcium 8.2 L Phosphorus 3.7 Triglycerides Quality VTE Prophylaxis VTE prophylaxis: mechanical ordered and pharmacologic ordered Hospitalist [facility] Advance Care Plan I have confirmed that the patient's Advanced Care Plan is present, code status is documented, or surrogate decision maker is listed in patient medical record.: Yes Medication Reconciliation I have utilized all available resources to obtain, update and review the patients current medications (includes all prescriptions, OTC, herbals, cannabis, and nutritional supplements).: Yes
[2025-03-15 09:53] LABS: Magnesium 1.7 mg/dL (1.6-2.3)
--- NOTE | 2025-03-15 10:33 | P.PNGS_ITS ---
Progress Note: A&P Assessment and Plan (1) SBO (small bowel obstruction): Code(s): K56.609 - Unspecified intestinal obstruction, unspecified as to partial versus complete obstruction Status: Acute Assessment and Plan: * Bowel function returning. Will advance to a soft diet. * Stop additional maintenance fluids. Consider stopping TPN later today or tomorrow if tolerating a substantial diet. Right IJ can eventually be removed once off TPN. Patient refusing Ensure supplements. * Will replace potassium and recheck magnesium today. * Continue Dulcolax supp daily for now. * Will try transitioning to her oral pain medication and avoid Dilaudid. She is not having any abdominal pain and is taking the Dilaudid for her chronic back pain. * Continue increasing activity as tolerated. PT/OT following. (2) Type 2 diabetes mellitus: Qualifiers: Diabetes mellitus fci insulin use: without terminal carman use Diabetes mellitus complication status: without complication Qualified Code(s): E11.9 - Type 2 diabetes mellitus without complications Code(s): E11.9 - Type 2 diabetes mellitus without complications Status: Resolved Assessment and Plan: * Management per hospitalist (3) Chronic anticoagulation: Code(s): Z79.01 - half-way (current) use of anticoagulants Status: Chronic Assessment and Plan: * Eliquis resumed last night. (4) Paroxysmal A-fib: Code(s): I48.0 - Paroxysmal atrial fibrillation Status: Acute Assessment and Plan: * Patient follows with cardiology and currently has a 30 day awake overnight monitor in place. History of paroxysmal atrial fibrillation. (5) Carotid artery stenosis: Code(s): I65.29 - Occlusion and stenosis of unspecified carotid artery Status: Acute (6) Heart failure with preserved ejection fraction: Qualifiers: Heart failure chronicity: chronic Qualified Code(s): I50.32 - Chronic diastolic (congestive) heart failure Code(s): I50.30 - Unspecified diastolic (congestive) heart failure Status: Acute (7) Chronic, continuous use of opioids: Code(s): F11.90 - Opioid use, unspecified, uncomplicated Status: Acute Assessment and Plan: * Trying to wean patient off IV Dilaudid and transition to her home oxycodone dose. She is not having any abdominal pain and is using the Dilaudid for her chronic back pain. Will leave an option for IV Dilaudid for breakthrough pain if needed. Plan I have discussed the patient's case and plan of care with Dr. Moore. Subjective Subjective Date/Time Seen: 03/15/25 10:33 Patient reports: tolerating liquids well, voiding w/o difficulty, flatus, bowel movement (x 1 yesterday) and afebrile Exam 2 Const: General: comfortable and no acute distress Orientation/consciousness: patient oriented x3 GI: Inspection: non-distended and incision (dry and glue intact, no erythema) GI Palp: Yes Soft to palpation, No Tenderness to palpation present (GI) and No Guarding due to palpation present (GI) Auscultation: normal bowel sounds Extrem: General: no calf tenderness and no edema Objective Data Vital Signs Vital Signs: Vital Signs - 24 hr 03/14/25 14:00 03/14/25 19:23 03/14/25 20:00 Temperature 97.8 F Pulse Rate 79 94 Respiratory Rate 18 20 Blood Pressure 121/66 Pulse Oximetry 100 97 Oxygen Delivery Room Air Room Air Fraction of Inspired Oxygen 21 03/14/25 22:16 03/15/25 06:00 Temperature 98.4 F 98.0 F Pulse Rate 78 67 Respiratory Rate 18 18 Blood Pressure 124/53 L 140/48 L Pulse Oximetry 97 99 Oxygen Delivery Fraction of Inspired Oxygen Intake/Output Intake/Output: Intake & Output 03/12/25 03/13/25 03/14/25 03/15/25 23:59 23:59 23:59 23:59 Intake Total 2688.7 2779.3 3449.3 1327 Output Total 2950 1700 1900 1100 Balance -261.3 1079.3 1549.3 227 Meds/Results Medications: Active Medications Generic Name Dose Route Start Last Admin Trade Name Freq PRN Reason Stop Dose Admin Acetaminophen 650 mg 03/06/25 16:19 Acetaminophen 650 Mg Suppository RECTAL Q6H PRN Mild Pain (1-3) or Fever Al Hydrox/Mg Hydrox/Simethicone 30 ml 03/15/25 08:30 Mag Hydrox/Al Hydrox/Simeth 30 Ml Udc PO Q8HR GINO Apixaban 2.5 mg 03/14/25 21:00 03/14/25 20:02 Apixaban 2.5 Mg Tablet PO 2.5 mg Q12HR GINO Administration Bisacodyl 10 mg 03/12/25 09:00 03/14/25 09:05 Bisacodyl 10 Mg Suppository RECTAL 10 mg QAM GINO Administration Dextrose 12.5 gm 03/06/25 16:19 03/09/25 13:11 Dextrose 50% 25 Gm/50 Ml Syringe IV PUSH 12.5 gm PRN PRN Administration Hypoglycemia Protocol Enoxaparin Sodium 40 mg 03/10/25 09:00 03/14/25 09:05 Enoxaparin 40 Mg/0.4 Ml Syringe SUB-Q 40 mg DAILY GINO Administration Famotidine 20 mg 03/07/25 21:00 03/14/25 20:02 Famotidine 20 Mg/2 Ml Vial IV PUSH 20 mg Q12HR GION Administration Glucagon 1 mg 03/06/25 16:19 Glucagon For Inj 1 Mg Vial IM PRN PRN Hypoglycemia Protocol Glucose 15 gm 03/06/25 16:19 Glucose Oral Gel 15 Gm Of Glucse In 37.5 Gm Tube PO PRN PRN Hypoglycemia Protocol Hydralazine HCl 10 mg 03/13/25 08:18 Hydralazine Hcl 20 Mg/Ml Vial IV PUSH Q8H PRN Blood Pressure - High Hydromorphone HCl 1 mg 03/13/25 14:32 03/15/25 06:45 Hydromorphone Hcl Inj (*Crx) 2 Mg/Ml Vial IV PUSH 1 mg Q2H PRN Administration Breakthrough Pain Rated 7-10 or NPO Hydromorphone HCl 0.5 mg 03/13/25 14:32 03/14/25 13:09 Hydromorphone Hcl Inj (*Crx) 2 Mg/Ml Vial IV PUSH 0.5 mg Q2H PRN Administration Breakthrough Pain Rated 4-6 or NPO Dextrose 1,000 mls @ 100 mls/hr 03/06/25 16:19 Dextrose 5% 1,000 Ml IVPB PRN PRN Hypoglycemia Protocol Dextrose 1,000 mls @ 50 mls/hr 03/09/25 17:21 Dextrose 10% IV CONT .Q20H PRN if PN is interrupted Multivitamins 1.25 ml/ 1,002.5 mls @ 40 mls/hr 03/09/25 18:30 03/14/25 18:02 Multivitamins 1.25 ml/ Amino IV CONT 40 mls/hr Acids/Electrolytes/Dextrose .Q24H GINO Administration Protocol Fat Emulsion Intravenous 250 mls @ 20.833 mls/hr 03/09/25 18:30 03/14/25 18:03 Lipids 20% IVPB 20.83 mls/hr Q24H GINO Administration Ibuprofen 400 mg/ Sodium 104 mls @ 200 mls/hr 03/09/25 18:00 03/15/25 06:10 Chloride IVPB Infused Q6HR GINO Infusion Sodium Chloride 1,000 mls @ 60 mls/hr 03/10/25 08:45 03/15/25 05:38 Normal Saline Iv IV CONT 60 mls/hr .[id number] GINO Administration Insulin Aspart 2 - 5 units 03/10/25 00:00 03/15/25 06:15 Insulin Aspart (*Bkc) 100 Units/Ml SUB-Q Not Given Q6HR [facility] Protocol Levothyroxine Sodium 44 mcg 03/08/25 06:30 03/15/25 05:38 Levothyroxine Sodium Inj 100 Mcg/5 Ml Vial IV PUSH 44 mcg DAILY@0630 [facility] Administration Lidocaine 1 patch 03/10/25 09:00 03/14/25 09:06 Lidocaine 5% Patch TRANSDERM 1 patch DAILY GINO Administration Naloxone HCl 0.1 mg 03/06/25 16:20 Naloxone Hcl 0.4 Mg/Ml Vial IV PUSH Q5MIN PRN Sedation Ondansetron HCl 4 mg 03/08/25 04:20 03/12/25 16:09 Ondansetron Inj 4 Mg/2 Ml Vial IV PUSH 4 mg Q6H PRN Administration Nausea And Vomiting Ondansetron HCl 4 mg 03/09/25 13:48 Ondansetron Inj 4 Mg/2 Ml Vial IV PUSH ONCE PRN Nausea Oxycodone/Acetaminophen 1 tab 03/13/25 14:26 03/14/25 20:10 Oxycodone/Acetaminophen (*Crx) 10-325 Mg Tablet PO 1 tab Q6H PRN Administration Pain (Scale Score 4-6) Sodium Chloride 10 ml 03/10/25 06:56 03/11/25 18:09 Central Line Flush IV PUSH 10 ml PRN PRN Administration with TPN bag changes Sodium Chloride 10 ml 03/10/25 14:00 03/15/25 05:38 Central Line Flush IV PUSH 10 ml Q8HR GINO Administration Sodium Chloride 20 ml 03/10/25 06:56 Central Line Flush IV PUSH PRN PRN after blood draws Radiology Results: ITS Impressions Abdomen/Pelvis CT 03/06/25 14:15 IMPRESSION: 1. Dilated small bowel loops suggestive of partial versus complete obstruction. 2. Other appearances are unchanged from previous examination. Small Bowel X-Ray 03/07/25 17:39 IMPRESSION: 1. Slow progression of contrast through several loops of dilated small bowel in the central abdomen with no contrast in colon by 5 hours consistent with a small bowel obstruction. 2. Small to moderate-sized sliding-type hiatal hernia with gastroesophageal reflux. Chest X-Ray 03/09/25 16:41 IMPRESSION: Highly suggestive air under the right hemidiaphragm. Clinical correlation and repeat exam is advised. No acute cardiopulmonary pathology. Supporting lines as described above. Nurse Cherie was notified with the result of the patient at 4:45 PM on March 09, 2025 Abdomen X-Ray 03/09/25 17:41 IMPRESSION: Nasogastric tube presumably in good position and ready for immediate use. Labs Labs: Laboratory Results - last 24 hr 03/14/25 03/14/25 03/14/25 12:26 17:38 18:20 Sodium Potassium Chloride Carbon Dioxide Anion Gap BUN Creatinine Estim Creat Clear Calc Estimated GFR Glucose POC Capillary Glucose 129 H 110 H Calcium Phosphorus Magnesium Triglycerides 110 03/15/25 03/15/25 03/15/25 00:31 05:39 05:41 Sodium 131 L Potassium 3.4 Chloride 101 Carbon Dioxide 28 Anion Gap 2 L BUN 16 Creatinine 0.61 L Estim Creat Clear Calc Not Reportable Estimated GFR > 60 Glucose 113 H POC Capillary Glucose 120 H Calcium 8.2 L Phosphorus 3.7 Magnesium 1.7 Triglycerides 03/15/25 06:06 Sodium Potassium Chloride Carbon Dioxide Anion Gap BUN Creatinine Estim Creat Clear Calc Estimated GFR Glucose POC Capillary Glucose 130 H Calcium Phosphorus Magnesium Triglycerides
[2025-03-15] MEDS: APIXABAN 2.5 MG TABLET PO ×2 (10:37→20:51)
[2025-03-15] MEDS: FAMOTIDINE 20 MG/2 ML VIAL IV PUSH ×2 (10:37→20:51)
[2025-03-15] MEDS: ENOXAPARIN 40 MG/0.4 ML SYRINGE SUB-Q (10:37)
[2025-03-15] MEDS: LIDOCAINE 5% PATCH 1 PATCH TRANSDERM (10:38)
[2025-03-15] MEDS: oxyCODONE/ACETAMINOPHEN (*CRX) 10-325 MG TABLET 1 TAB PO ×3 (10:47→23:56)
--- NOTE | 2025-03-15 10:57 | PCNFU ---
Nutrition Follow-Up Complete: Altered GI function as related to SBO as evidenced by NPO, need for TPN Meet estimated nutritional needs - Progressing. Advanced to low fiber diet today, with TPN Goal: Pt current nutrition is Low fiber diet for lunch; TPN Clinmix E 01/27 @40 ml/h. Ensure HP + TID (350 kcal, 20 g protein) Nutrition recommendation: Advance diet as tolerated. Discontinue TPN when pt is eating >50% meals and supplements Last recorded weight is 62 kg. Bowel Motility: +1 03/14/25 Labs Reviewed: Hgb 10.3, Hct 31.3, Alb 2.7, Na 131, Cre 0.61 Meds Noted: Pepcid, Zofran Skin: WNL Additional Notes: TPN running at 40,l/h to provide 1182 kcal, 48 g protein, 1210 ml total volume. Pt appetite remains poor. Bowels are starting to move. Will monitor TPN tolerance, weight, labs, skin, diet order, meds every Friday/ Friday
[2025-03-15 14:00] VITALS: BP 184/66; PULSE 73; RESP 18; TEMP 36.9; O2SAT 100
[2025-03-15] MEDS: KCL 40 MEQ/WATER 100 ML 100 ML 25 ML IVPB (14:04)
[2025-03-15] MEDS: SIMETHICONE 80 MG TAB.CHEW PO ×2 (14:50→20:56)
[2025-03-15 21:11] VITALS: BP 121/66; PULSE 83; RESP 14; TEMP 36.2; O2SAT 96
[2025-03-16] MEDS: IBUPROFEN IV 400 MG in SODIUM CHLORIDE 0.9% IV 100 ML 200 MG IVPB (05:09)
[2025-03-16] MEDS: CENTRAL LINE FLUSH 10 ML IV PUSH ×3 (05:10→20:57)
[2025-03-16 05:37] VITALS: BP 112/62; PULSE 64; RESP 14; TEMP 36.1; O2SAT 99
[2025-03-16] MEDS: oxyCODONE/ACETAMINOPHEN (*CRX) 10-325 MG TABLET 1 TAB PO ×4 (05:51→23:26)
[2025-03-16] MEDS: LEVOTHYROXINE SODIUM INJ 100 MCG/5 ML VIAL 44 MCG IV PUSH (05:51)
[2025-03-16 06:01] LABS: Hematocrit 27.7 % (37.0-47.0); Hemoglobin 9.1 g/dL (12.0-15.0); Mean Corpuscular HGB Conc 32.9 g/dl (32-36); Mean Corpuscular Hemoglobin 32.5 pg (26-34); Mean Corpuscular Volume 98.9 fl (80-100); Platelet Count Result 212 k/mm3 (150-375); Red Blood Count 2.80 M/mm3 (4.2-5.4); White Blood Count 6.8 K/mm3 (4.5-10.0)
[2025-03-16 06:17] LABS: Albumin Level 2.5 g/dL (3.5-5.1); Alkaline Phosphatase 48 U/L (38-126); Anion Gap 3 mmol/L (4-12); Aspartate Amino Transferase 24 U/L (14-36); Bilirubin,Total 1.2 mg/dL (0.2-1.3); Blood Urea Nitrogen 16 mg/dL (7-17); Calcium 8.5 mg/dL (8.4-10.2); Carbon Dioxide 27 mmol/L (22-30); Chloride 104 mmol/L (98-107); Estimated Glomerular Filt Rate > 60; Glucose 83 mg/dL (65-110); Potassium 4.0 mmol/L (3.4-5.0); Sodium 134 mmol/L (137-145); Total Protein 4.8 g/dL (6.3-8.2)
[2025-03-16 06:18] LABS: Alanine Aminotransferase 12 U/L (6-35)
--- NOTE | 2025-03-16 08:30 | P.PNIM_ITS ---
Progress Note: A&P Assessment and Plan (1) SBO (small bowel obstruction): Code(s): K56.609 - Unspecified intestinal obstruction, unspecified as to partial versus complete obstruction Status: Acute Assessment and Plan: * CT abdomen/pelvis: * Dilated small bowel loops suggestive of partial versus complete obstruction. * Other appearances are unchanged from previous examination. * bowel rest, NPO. NG place in ED, confirmation via XR * IV fluids: 2L bolus, will hold on further fluids as the patient has history of heart failure with preserved EF * started on Zosyn on 03/06, continued * analgesics p.r.n. * Leukocytosis improving, WBC down from 18.4-12.5 on 03/07 * general surgery consulted * appreciate further recommendations * Water-soluble small-bowel follow-through series today * IV fluid hydration while NPO * Surgical management not rule out at this time, continue to hold Eliquis * Maintain antibiotics, IV fluid hydration, hold Eliquis * Small-bowel follow-through series * no contrast moving to the colon at 5 hours c/w a small bowel obstruction * POD 2 Ex lap for SOB * Improved but still present abdominal pain * NG tube still in place * WBC down to 10.2 * Appreciate further recs from Gen Surg POD 3 Ex lap for SOB * - Patient up to chair working with therapy, c/o pain persisting although more chronic concerns than acute currently. * - Appreciate General surgery recs. POD 4 Ex lap for SOB * - Patient is working with therapy well, cooperative. * - No return of bowel function as of yet. * - NG is clamped. * - Appreciate General surgery recs. POD 5 Ex lap for SOB * - Patient is working with therapy, cooperative. * - No return of bowel function as of yet. * - NG is out, had a small amount of clear liquids. * - Surgery resumed oxycodone, increased hydromorphone. Will dc morphine. * - Appreciate General surgery recs. POD 6 Ex Lap for SOB * NG is out, BM last pm. * continues with oxycodone * will discontinue hydromorphone. * Surgery continues to monitor * POD 7 patient was seen and examined at bedside. she is feeling better. her pain is better. denies any N/V. tolerating diet. DC TPN . Dc IJ. possible discharge tomorrow to the rehab (2) Chronic hyponatremia: Code(s): E87.1 - Hypo-osmolality and hyponatremia Status: Chronic Assessment and Plan: * Na 127, previously 126 on 02/28 * history chronic hyponatremia, present since 2018 * monitor * improving (3) FARTUN (iron deficiency anemia): Qualifiers: Iron deficiency anemia type: chronic blood loss Qualified Code(s): D50.0 - Iron deficiency anemia secondary to blood loss (chronic) Code(s): D50.9 - Iron deficiency anemia, unspecified Status: Chronic Assessment and Plan: * Hgb 13.7on admission * Hx: FARTUN * transfuse if <7 * trend * (4) Type 2 diabetes mellitus: Qualifiers: Diabetes mellitus keno terminal operator insulin use: without keno terminal operator use Diabetes mellitus complication status: without complication Qualified Code(s): E11.9 - Type 2 diabetes mellitus without complications Code(s): E11.9 - Type 2 diabetes mellitus without complications Status: Resolved Assessment and Plan: * hypoglycemia protocol and POC blood glucose Q6H until no longer NPO * history of diabetes, resolved. No longer on medications. * A1C 5.5% on 10/08/2024 * Cont. POC accuchecks until tolerating diet. 03/16: - stable accuchecks (5) Atrial fibrillation: Qualifiers: Atrial fibrillation type: paroxysmal Qualified Code(s): I48.0 - Paroxysmal atrial fibrillation Code(s): I48.91 - Unspecified atrial fibrillation Status: Chronic Assessment and Plan: * history of paroxysmal AFib * EKG, initial, 03/06: sinus rhythm, rate 74, LVH, cannot rule out septal infarct age indeterminate, minimal Q-waves high lateral leads. No significant change compared to EKG done on 02/25. * continue home medications 03/15: - rate stable. resume apixaban per surgeon discretion. 03/16 on Eliquis. (6) Hypertension: Qualifiers: Hypertension type: primary hypertension Qualified Code(s): I10 - Essential (primary) hypertension Code(s): I10 - Essential (primary) hypertension Status: Chronic Assessment and Plan: * chronic, currently 153/57 * continue home medications * monitor * reviewed and stable * 03/12: Persistent stability. 03/13 - Add prn hydralazine until orals resume - trending higher on recent measurements. 03/14 - Cont. prn hydralazine until orals resume. 03/16: - stable today, continue to monitor Plan Diet: heart healthy GI Prophylaxis: Pantoprazole DVT Prophylaxis: SCDs, (eliquis ) Code Status: Full code Disposition: DC tomorrow Subjective Date/time seen: 03/16/25 08:30 Interval history: per HPI: 80 y/o F with PMH of chronic hyponatremia, CAD, DVT, anxiety/depression, HF with preserved EF, HLD, HTN, hypothyroidism, IBS, ELVIRA noncompliant with CPAP, paroxysmal AFib, rheumatoid arthritis, and diabetes presents here with nausea and vomiting. The patient presents here from home via EMS on 03/06 for further evaluation of back pain, nausea, vomiting, and diarrhea. She reports she had a normal bowel movement yesterday at 12:00 p.m. which was followed by multiple episodes of diarrhea. She has since developed nausea and vomiting and has only been able to tolerate her morning medications but was not able to tolerate water. Reports accompanying abdominal pain - described as lower abdominal pain, more so on left but has hx of hernia to same region. She reports accompanying back pain (bra down). She has a history of chronic back pain for which she takes oxycodone t.i.d. She denies accompanying fever, chills, chest pain, shortness a breath, or urinary symptoms. History abdominal surgery - small bowel resection, cholecystectomy, appendectomy, total hysterectomy. History of bowel obstruction x1 and was transferred to [facility] for treatment due to a blood clot that occured at the same time. Initial VS at presentation: 98? F, HR 83, RR 20, 185/68, and 99% on RA. ED workup showed: WBC 18.4, sodium 127 (previously 126 on 02/28, history of chronic hyponatremia), creatinine 0.61 and GFR >60, glucose 166, lactic 2.5, lipase/AST/ALT within normal limits. CT of the abdomen/pelvis showed dilated small bowel loops suggestive of partial versus complete obstruction, other appearances are unchanged from previous examinations. EKG showed sinus rhythm, rate 74, LVH, cannot rule out septal infarct age indeterminate, minimal Q-waves high lateral leads. No significant change compared to EKG done on 02/25. 03/16/25 Patient underwent Exploratory laparotomy with abdominal adhesiolysis on 03/10/25. Has been on TPN. Pain gradually improving. Currently on p.o. pain medications. Will DC TPN. Possible discharge tomorrow to rehab if continue to improve Review of Systems Review of Systems: No new ROS findings. All systems reviewed & are unremarkable except as noted in HPI and below Exam Narrative: GENERAL APPEARANCE: Appears to be in no acute distress. HEAD: normocephalic atraumatic EYES: Vision grossly intact. ENT: Hearing grossly intact, no nasal discharge NECK: Neck supple, trachea midline. CARDIAC: Normal S1/S2. Rhythm is regular. No murmurs, rubs, or gallops. No cyanosis or pallor. Extremities are warm and well perfused. LUNGS: Clear to auscultation without rales, rhonchi, wheezing or diminished breath sounds. Respirations even and unlabored. ABDOMEN: BS positive x 4 quadrants. Soft, nondistended. Midline abdominal incision well approximated.. MSK:fair strength in all extremities. PERIPHERAL VASCULAR: Normal perfusion,No edema. NEURO: Follows commands. No focal deficits. SKIN: Craig without lesions or eruptions. Right IJ CVD dressing c/d/i. PSYCH: Stable, no paranoia or delusional thinking. Const: General: no acute distress and uncomfortable Other: , female, elderly, diffuse discomfort HENMT: Face/Nose/Sinus: Normal nares present Mouth: Yes moist mucous membranes Other: NG in place to right nare Eyes: General: appearance normal, both eyes and all related structures Sclera: sclerae normal Pupils: Equal, round and reactive pupils present EOM: EOMs intact bilaterally Resp: Effort & Inspection: normal respiratory effort Auscultation: clear to auscultation bilaterally Cardio: Rate: regular rate Rhythm: regular rhythm Other: S1-S2 present without murmur, rub, ectopy GI: Other: Hyperactive bowel sounds in all quadrants, mild tenderness that is diffuse, abdomen soft Skin: General skin exam: normal color and no rashes or lesions noted Wounds: no wounds Neuro: Cranial nerves: Yes Equal, round and reactive pupils present Speech: normal speech Motor exam (neuro): 5/5 motor strength present throughout Sensory Exam: normal sensation Other: A&O x4 Extrem: General: normal to inspection Psych: Mental Status: mental status grossly normal Affect: Anxious affect present Other: Patient tearful, restless, fair insight and judgment. Objective Data Vital Signs Vital Signs: Vital Signs - 24 hr 03/15/25 14:00 03/15/25 20:00 03/15/25 21:11 Temperature 98.4 F 97.1 F L Pulse Rate 73 83 Respiratory Rate 18 14 Blood Pressure 184/66 H 121/66 Pulse Oximetry 100 96 Oxygen Delivery Room Air 03/16/25 05:37 Temperature 97 F L Pulse Rate 64 Respiratory Rate 14 Blood Pressure 112/62 Pulse Oximetry 99 Oxygen Delivery Intake/Output Intake/Output: Intake & Output 03/13/25 03/14/25 03/15/25 03/16/25 23:59 23:59 23:59 23:59 Intake Total 2779.3 3449.3 4027.5 208 Output Total 1700 1900 1600 Balance 1079.3 1549.3 2427.5 208 Meds/Results Medications: Active Medications Generic Name Dose Route Start Last Admin Trade Name Freq PRN Reason Stop Dose Admin Acetaminophen 650 mg 03/06/25 16:19 Acetaminophen 650 Mg Suppository RECTAL Q6H PRN Mild Pain (1-3) or Fever Apixaban 2.5 mg 03/14/25 21:00 03/15/25 20:51 Apixaban 2.5 Mg Tablet PO 2.5 mg Q12HR GINO Administration Bisacodyl 10 mg 03/12/25 09:00 03/15/25 10:38 Bisacodyl 10 Mg Suppository RECTAL Not Given QAM GINO Dextrose 12.5 gm 03/06/25 16:19 03/09/25 13:11 Dextrose 50% 25 Gm/50 Ml Syringe IV PUSH 12.5 gm PRN PRN Administration Hypoglycemia Protocol Famotidine 20 mg 03/07/25 21:00 03/15/25 20:51 Famotidine 20 Mg/2 Ml Vial IV PUSH 20 mg Q12HR GINO Administration Glucagon 1 mg 03/06/25 16:19 Glucagon For Inj 1 Mg Vial IM PRN PRN Hypoglycemia Protocol Glucose 15 gm 03/06/25 16:19 Glucose Oral Gel 15 Gm Of Glucse In 37.5 Gm Tube PO PRN PRN Hypoglycemia Protocol Hydralazine HCl 10 mg 03/13/25 08:18 03/15/25 14:56 Hydralazine Hcl 20 Mg/Ml Vial IV PUSH 10 mg Q8H PRN Administration Blood Pressure - High Dextrose 1,000 mls @ 100 mls/hr 03/06/25 16:19 Dextrose 5% 1,000 Ml IVPB PRN PRN Hypoglycemia Protocol Ibuprofen 400 mg/ Sodium 104 mls @ 200 mls/hr 03/09/25 18:00 03/16/25 05:41 Chloride IVPB Infused Q6HR [facility] Infusion Insulin Aspart 2 - 5 units 03/10/25 00:00 03/16/25 05:54 Insulin Aspart (*Bkc) 100 Units/Ml SUB-Q Not Given Q6HR [facility] Protocol Levothyroxine Sodium 44 mcg 03/08/25 06:30 03/16/25 05:51 Levothyroxine Sodium Inj 100 Mcg/5 Ml Vial IV PUSH 44 mcg DAILY@0630 [facility] Administration Lidocaine 1 patch 03/10/25 09:00 03/15/25 10:38 Lidocaine 5% Patch TRANSDERM 1 patch DAILY [facility] Administration Lidocaine 1 patch 03/15/25 12:55 03/15/25 14:12 Lidocaine 5% Patch TRANSDERM Not Given DAILY [facility] Naloxone HCl 0.1 mg 03/06/25 16:20 Naloxone Hcl 0.4 Mg/Ml Vial IV PUSH Q5MIN PRN Sedation Ondansetron HCl 4 mg 03/08/25 04:20 03/12/25 16:09 Ondansetron Inj 4 Mg/2 Ml Vial IV PUSH 4 mg Q6H PRN Administration Nausea And Vomiting Ondansetron HCl 4 mg 03/09/25 13:48 Ondansetron Inj 4 Mg/2 Ml Vial IV PUSH ONCE PRN Nausea Oxycodone/Acetaminophen 1 tab 03/13/25 14:26 03/16/25 05:51 Oxycodone/Acetaminophen (*Crx) 10-325 Mg Tablet PO 1 tab Q6H PRN Administration Pain (Scale Score 4-6) Simethicone 80 mg 03/15/25 14:29 03/15/25 20:56 Simethicone 80 Mg Tab.Chew PO 80 mg TID PRN Administration Abdominal Distention Sodium Chloride 10 ml 03/10/25 14:00 03/16/25 05:10 Central Line Flush IV PUSH 10 ml Q8HR GINO Administration Sodium Chloride 20 ml 03/10/25 06:56 Central Line Flush IV PUSH PRN PRN after blood draws Radiology Results: ITS Impressions Abdomen/Pelvis CT 03/06/25 14:15 IMPRESSION: 1. Dilated small bowel loops suggestive of partial versus complete obstruction. 2. Other appearances are unchanged from previous examination. Small Bowel X-Ray 03/07/25 17:39 IMPRESSION: 1. Slow progression of contrast through several loops of dilated small bowel in the central abdomen with no contrast in colon by 5 hours consistent with a small bowel obstruction. 2. Small to moderate-sized sliding-type hiatal hernia with gastroesophageal reflux. Chest X-Ray 03/09/25 16:41 IMPRESSION: Highly suggestive air under the right hemidiaphragm. Clinical correlation and repeat exam is advised. No acute cardiopulmonary pathology. Supporting lines as described above. Nurse Cherie was notified with the result of the patient at 4:45 PM on March 09, 2025 Abdomen X-Ray 03/09/25 17:41 IMPRESSION: Nasogastric tube presumably in good position and ready for immediate use. Labs Labs: Laboratory Results - last 24 hr 03/15/25 03/15/25 03/15/25 05:39 11:49 18:18 WBC RBC Hgb Hct MCV MCH MCHC RDW Plt Count MPV Sodium Potassium Chloride Carbon Dioxide Anion Gap BUN Creatinine Estim Creat Clear Calc Estimated GFR Glucose POC Capillary Glucose 143 H 139 H Calcium Magnesium 1.7 Total Bilirubin AST ALT Alkaline Phosphatase Total Protein Albumin 03/15/25 03/15/25 03/16/25 19:22 23:46 05:34 WBC RBC Hgb Hct MCV MCH MCHC RDW Plt Count MPV Sodium Potassium Chloride Carbon Dioxide Anion Gap BUN Creatinine Estim Creat Clear Calc Estimated GFR Glucose POC Capillary Glucose 135 H 103 88 Calcium Magnesium Total Bilirubin AST ALT Alkaline Phosphatase Total Protein Albumin 03/16/25 05:50 WBC 6.8 RBC 2.80 L Hgb 9.1 L Hct 27.7 L MCV 98.9 MCH 32.5 MCHC 32.9 RDW 12.9 Plt Count 212 MPV 9.9 Sodium 134 L Potassium 4.0 Chloride 104 Carbon Dioxide 27 Anion Gap 3 L BUN 16 Creatinine 0.65 L Estim Creat Clear Calc Not Reportable Estimated GFR > 60 Glucose 83 POC Capillary Glucose Calcium 8.5 Magnesium Total Bilirubin 1.2 AST 24 ALT 12 Alkaline Phosphatase 48 Total Protein 4.8 L Albumin 2.5 L Quality VTE Prophylaxis VTE prophylaxis: mechanical ordered and pharmacologic ordered
[2025-03-16] MEDS: APIXABAN 2.5 MG TABLET PO ×2 (09:25→20:57)
[2025-03-16] MEDS: FAMOTIDINE 20 MG/2 ML VIAL IV PUSH ×2 (09:25→20:57)
--- NOTE | 2025-03-16 09:40 | P.PNGS_ITS ---
Progress Note: A&P Assessment and Plan (1) SBO (small bowel obstruction): Code(s): K56.609 - Unspecified intestinal obstruction, unspecified as to partial versus complete obstruction Status: Acute Assessment and Plan: * Bowel function returning. Continue heart healthy diet. * Consider stopping TPN later today or tomorrow if tolerating a substantial diet. Right IJ can eventually be removed once off TPN. * Continue Dulcolax supp daily for now. * Pain is now managed with oral pain medication. Ibuprofen held by hospitalist. * Continue increasing activity as tolerated. PT/OT following. (2) Type 2 diabetes mellitus: Qualifiers: Diabetes mellitus intermediate insulin use: without intermediate use Diabetes mellitus complication status: without complication Qualified Code(s): E11.9 - Type 2 diabetes mellitus without complications Code(s): E11.9 - Type 2 diabetes mellitus without complications Status: Resolved Assessment and Plan: * Management per hospitalist (3) Chronic anticoagulation: Code(s): Z79.01 - shelter (current) use of anticoagulants Status: Chronic Assessment and Plan: * Eliquis resumed. (4) Paroxysmal A-fib: Code(s): I48.0 - Paroxysmal atrial fibrillation Status: Acute Assessment and Plan: * Patient follows with cardiology and currently has a 30 day secured entrance monitor in place. History of paroxysmal atrial fibrillation. (5) Carotid artery stenosis: Code(s): I65.29 - Occlusion and stenosis of unspecified carotid artery Status: Acute (6) Heart failure with preserved ejection fraction: Qualifiers: Heart failure chronicity: chronic Qualified Code(s): I50.32 - Chronic diastolic (congestive) heart failure Code(s): I50.30 - Unspecified diastolic (congestive) heart failure Status: Acute (7) Chronic, continuous use of opioids: Code(s): F11.90 - Opioid use, unspecified, uncomplicated Status: Acute Assessment and Plan: * Patient weaned off of IV Dilaudid. She is now back on her home regimen of Percocet. Plan I have discussed the patient's case and plan of care with Dr. Moore. Subjective Subjective Date/Time Seen: 03/16/25 09:40 Patient reports: no new complaints, feels better and pain is less Interval history: Patient is doing well today. She reports less pain. She is currently off of dilaudid and now taking home dose of Percocet. She is tolerating a heart healthy diet without nausea or vomiting. No BM yesterday, but she is passing gas. Exam GI: Inspection: non-distended, incision (dry and glue intact, no erythema) and no visible herniation Auscultation: normal bowel sounds Other: Minimal abdominal tenderness. Incision is clean and dry with no areas of dehiscence, purulence, or necrosis. Small amount of bruising to upper portion of incision. Objective Data Vital Signs Vital Signs: Vital Signs - 24 hr 03/15/25 14:00 03/15/25 20:00 03/15/25 21:11 Temperature 98.4 F 97.1 F L Pulse Rate 73 83 Respiratory Rate 18 14 Blood Pressure 184/66 H 121/66 Pulse Oximetry 100 96 Oxygen Delivery Room Air 03/16/25 05:37 Temperature 97 F L Pulse Rate 64 Respiratory Rate 14 Blood Pressure 112/62 Pulse Oximetry 99 Oxygen Delivery Intake/Output Intake/Output: Intake & Output 03/13/25 03/14/25 03/15/25 03/16/25 23:59 23:59 23:59 23:59 Intake Total 2779.3 3449.3 4027.5 208 Output Total 1700 1900 1600 Balance 1079.3 1549.3 2427.5 208 Meds/Results Medications: Active Medications Generic Name Dose Route Start Last Admin Trade Name Freq PRN Reason Stop Dose Admin Acetaminophen 650 mg 03/06/25 16:19 Acetaminophen 650 Mg Suppository RECTAL Q6H PRN Mild Pain (1-3) or Fever Apixaban 2.5 mg 03/14/25 21:00 03/16/25 09:25 Apixaban 2.5 Mg Tablet PO 2.5 mg Q12HR GINO Administration Bisacodyl 10 mg 03/12/25 09:00 03/15/25 10:38 Bisacodyl 10 Mg Suppository RECTAL Not Given QAM GINO Dextrose 12.5 gm 03/06/25 16:19 03/09/25 13:11 Dextrose 50% 25 Gm/50 Ml Syringe IV PUSH 12.5 gm PRN PRN Administration Hypoglycemia Protocol Famotidine 20 mg 03/07/25 21:00 03/16/25 09:25 Famotidine 20 Mg/2 Ml Vial IV PUSH 20 mg Q12HR GINO Administration Glucagon 1 mg 03/06/25 16:19 Glucagon For Inj 1 Mg Vial IM PRN PRN Hypoglycemia Protocol Glucose 15 gm 03/06/25 16:19 Glucose Oral Gel 15 Gm Of Glucse In 37.5 Gm Tube PO PRN PRN Hypoglycemia Protocol Hydralazine HCl 10 mg 03/13/25 08:18 03/15/25 14:56 Hydralazine Hcl 20 Mg/Ml Vial IV PUSH 10 mg Q8H PRN Administration Blood Pressure - High Dextrose 1,000 mls @ 100 mls/hr 03/06/25 16:19 Dextrose 5% 1,000 Ml IVPB PRN PRN Hypoglycemia Protocol Ibuprofen 400 mg/ Sodium 104 mls @ 200 mls/hr 03/09/25 18:00 03/16/25 05:41 Chloride IVPB Infused Q6HR [facility] Infusion Insulin Aspart 2 - 5 units 03/10/25 00:00 03/16/25 05:54 Insulin Aspart (*Bkc) 100 Units/Ml SUB-Q Not Given Q6HR [facility] Protocol Levothyroxine Sodium 44 mcg 03/08/25 06:30 03/16/25 05:51 Levothyroxine Sodium Inj 100 Mcg/5 Ml Vial IV PUSH 44 mcg DAILY@0630 [facility] Administration Lidocaine 1 patch 03/10/25 09:00 03/15/25 10:38 Lidocaine 5% Patch TRANSDERM 1 patch DAILY [facility] Administration Lidocaine 1 patch 03/15/25 12:55 03/15/25 14:12 Lidocaine 5% Patch TRANSDERM Not Given DAILY [facility] Naloxone HCl 0.1 mg 03/06/25 16:20 Naloxone Hcl 0.4 Mg/Ml Vial IV PUSH Q5MIN PRN Sedation Ondansetron HCl 4 mg 03/08/25 04:20 03/12/25 16:09 Ondansetron Inj 4 Mg/2 Ml Vial IV PUSH 4 mg Q6H PRN Administration Nausea And Vomiting Ondansetron HCl 4 mg 03/09/25 13:48 Ondansetron Inj 4 Mg/2 Ml Vial IV PUSH ONCE PRN Nausea Oxycodone/Acetaminophen 1 tab 03/13/25 14:26 03/16/25 05:51 Oxycodone/Acetaminophen (*Crx) 10-325 Mg Tablet PO 1 tab Q6H PRN Administration Pain (Scale Score 4-6) Simethicone 80 mg 03/15/25 14:29 03/15/25 20:56 Simethicone 80 Mg Tab.Chew PO 80 mg TID PRN Administration Abdominal Distention Sodium Chloride 10 ml 03/10/25 14:00 03/16/25 05:10 Central Line Flush IV PUSH 10 ml Q8HR GINO Administration Sodium Chloride 20 ml 03/10/25 06:56 Central Line Flush IV PUSH PRN PRN after blood draws Radiology Results: ITS Impressions Abdomen/Pelvis CT 03/06/25 14:15 IMPRESSION: 1. Dilated small bowel loops suggestive of partial versus complete obstruction. 2. Other appearances are unchanged from previous examination. Small Bowel X-Ray 03/07/25 17:39 IMPRESSION: 1. Slow progression of contrast through several loops of dilated small bowel in the central abdomen with no contrast in colon by 5 hours consistent with a small bowel obstruction. 2. Small to moderate-sized sliding-type hiatal hernia with gastroesophageal reflux. Chest X-Ray 03/09/25 16:41 IMPRESSION: Highly suggestive air under the right hemidiaphragm. Clinical correlation and repeat exam is advised. No acute cardiopulmonary pathology. Supporting lines as described above. Nurse Cherie was notified with the result of the patient at 4:45 PM on March 09, 2025 Abdomen X-Ray 03/09/25 17:41 IMPRESSION: Nasogastric tube presumably in good position and ready for immediate use. Labs Labs: Laboratory Results - last 24 hr 03/15/25 03/15/25 03/15/25 05:39 11:49 18:18 WBC RBC Hgb Hct MCV MCH MCHC RDW Plt Count MPV Sodium Potassium Chloride Carbon Dioxide Anion Gap BUN Creatinine Estim Creat Clear Calc Estimated GFR Glucose POC Capillary Glucose 143 H 139 H Calcium Magnesium 1.7 Total Bilirubin AST ALT Alkaline Phosphatase Total Protein Albumin 03/15/25 03/15/25 03/16/25 19:22 23:46 05:34 WBC RBC Hgb Hct MCV MCH MCHC RDW Plt Count MPV Sodium Potassium Chloride Carbon Dioxide Anion Gap BUN Creatinine Estim Creat Clear Calc Estimated GFR Glucose POC Capillary Glucose 135 H 103 88 Calcium Magnesium Total Bilirubin AST ALT Alkaline Phosphatase Total Protein Albumin 03/16/25 05:50 WBC 6.8 RBC 2.80 L Hgb 9.1 L Hct 27.7 L MCV 98.9 MCH 32.5 MCHC 32.9 RDW 12.9 Plt Count 212 MPV 9.9 Sodium 134 L Potassium 4.0 Chloride 104 Carbon Dioxide 27 Anion Gap 3 L BUN 16 Creatinine 0.65 L Estim Creat Clear Calc Not Reportable Estimated GFR > 60 Glucose 83 POC Capillary Glucose Calcium 8.5 Magnesium Total Bilirubin 1.2 AST 24 ALT 12 Alkaline Phosphatase 48 Total Protein 4.8 L Albumin 2.5 L
[2025-03-16] MEDS: LIDOCAINE 5% PATCH 1 PATCH TRANSDERM ×2 (11:34)
--- NOTE | 2025-03-16 12:02 | PC.NURSE ---
Per edward Pickard to remove IJ. Needs peripheral saline lock IV before IJ removal. Must be placed under IV US per patient.
--- NOTE | 2025-03-16 13:37 | PC.NURSE ---
IV US access unable to place peripheral line, Will keep IJ in place until tomorrow when patient plans to discharge to keep IV access
[2025-03-16 14:00] VITALS: BP 137/62; PULSE 77; RESP 18; TEMP 36.3; O2SAT 99
[2025-03-16 22:00] VITALS: BP 148/52; PULSE 80; RESP 18; TEMP 36.9; O2SAT 99
[2025-03-17] MEDS: LEVOTHYROXINE SODIUM INJ 100 MCG/5 ML VIAL 44 MCG IV PUSH (05:29)
[2025-03-17] MEDS: CENTRAL LINE FLUSH 10 ML IV PUSH (05:29)
[2025-03-17] MEDS: oxyCODONE/ACETAMINOPHEN (*CRX) 10-325 MG TABLET 1 TAB PO ×3 (05:30→17:54)
[2025-03-17 05:40] LABS: Hematocrit 29.0 % (37.0-47.0); Hemoglobin 9.6 g/dL (12.0-15.0); Mean Corpuscular HGB Conc 33.1 g/dl (32-36); Mean Corpuscular Hemoglobin 32.3 pg (26-34); Mean Corpuscular Volume 97.6 fl (80-100); Platelet Count Result 236 k/mm3 (150-375); Red Blood Count 2.97 M/mm3 (4.2-5.4); White Blood Count 8.0 K/mm3 (4.5-10.0)
[2025-03-17 05:53] LABS: Anion Gap 6 mmol/L (4-12); Blood Urea Nitrogen 14 mg/dL (7-17); Calcium 8.5 mg/dL (8.4-10.2); Carbon Dioxide 27 mmol/L (22-30); Chloride 100 mmol/L (98-107); Estimated Glomerular Filt Rate > 60; Glucose 93 mg/dL (65-110); Potassium 3.7 mmol/L (3.4-5.0); Sodium 133 mmol/L (137-145)
[2025-03-17 06:00] VITALS: BP 103/47; PULSE 81; RESP 16; TEMP 36.4; O2SAT 95
[2025-03-17] MEDS: APIXABAN 2.5 MG TABLET PO (08:12)
[2025-03-17] MEDS: FAMOTIDINE 20 MG/2 ML VIAL IV PUSH (08:12)
[2025-03-17] MEDS: LIDOCAINE 5% PATCH 1 PATCH TRANSDERM ×2 (08:12→08:13)
--- NOTE | 2025-03-17 09:40 | P.PNGS_ITS ---
Progress Note: A&P Assessment and Plan (1) SBO (small bowel obstruction): Code(s): K56.609 - Unspecified intestinal obstruction, unspecified as to partial versus complete obstruction Status: Acute Assessment and Plan: * S/p ex lap with adhesiolysis. No BM yet today but passing flatus and tolerating a solid diet. Pain is controlled on her home dose of oxycodone. * Will give one dose of milk of mag * Surgically stable for discharge today. Plan is to d/c to [facility]. They evaluated patient this morning and per nursing accepted her for discharge. * Follow-up with Dr. Moore in our office after she is discharged from [facility]. * Continue to wear the abdominal binder, which is at the bedside today. (2) Type 2 diabetes mellitus: Qualifiers: Diabetes mellitus complication status: without complication Diabetes mellitus intermediate card tender insulin use: without intermediate card tender use Qualified Code(s): E11.9 - Type 2 diabetes mellitus without complications Code(s): E11.9 - Type 2 diabetes mellitus without complications Status: Resolved (3) Chronic anticoagulation: Code(s): Z79.01 - care home (current) use of anticoagulants Status: Chronic (4) Paroxysmal A-fib: Code(s): I48.0 - Paroxysmal atrial fibrillation Status: Acute (5) Carotid artery stenosis: Code(s): I65.29 - Occlusion and stenosis of unspecified carotid artery Status: Acute (6) Heart failure with preserved ejection fraction: Qualifiers: Heart failure chronicity: chronic Qualified Code(s): I50.32 - Chronic diastolic (congestive) heart failure Code(s): I50.30 - Unspecified diastolic (congestive) heart failure Status: Acute (7) Chronic, continuous use of opioids: Code(s): F11.90 - Opioid use, unspecified, uncomplicated Status: Acute Plan I have discussed the patient's case and plan of care with Dr. oMore. Subjective Subjective Date/Time Seen: 03/17/25 09:40 Post Op day: 7 Patient reports: tolerating a regular diet, flatus and afebrile Interval history: Patient reports feeling good today. She had some pain at her incision last night after sitting up in the chair for too long, but this improved through the night after resting. No nausea or vomiting. Tolerating her solid diet. Passing lots of flatus this am. No BM x 2 days. Received another dulcolax supp this morning. Exam Const: General: comfortable and no acute distress GI: Inspection: non-distended and incision (dry and glue intact, no erythema) GI Palp: Yes Soft to palpation, Yes Tenderness to palpation present (GI) (minimal tenderness near incision as expected), No Guarding due to palpation present (GI) and No Rebound tenderness present Auscultation: normal bowel sounds Extrem: General: no calf tenderness and no edema Objective Data Vital Signs Vital Signs: Vital Signs - 24 hr 03/16/25 14:00 03/16/25 20:00 03/16/25 22:00 Temperature 97.3 F L 98.4 F Pulse Rate 77 80 Respiratory Rate 18 18 Blood Pressure 137/62 148/52 H Pulse Oximetry 99 99 Oxygen Delivery Room Air 03/17/25 06:00 Temperature 97.6 F Pulse Rate 81 Respiratory Rate 16 Blood Pressure 103/47 L Pulse Oximetry 95 Oxygen Delivery Intake/Output Intake/Output: Intake & Output 03/14/25 03/15/25 03/16/25 03/17/25 23:59 23:59 23:59 23:59 Intake Total 3449.3 4027.5 1288 Output Total 1900 6448 074 6508 Balance 1549.3 2427.5 888 -1000 Meds/Results Medications: Active Medications Generic Name Dose Route Start Last Admin Trade Name Freq PRN Reason Stop Dose Admin Acetaminophen 650 mg 03/06/25 16:19 Acetaminophen 650 Mg Suppository RECTAL Q6H PRN Mild Pain (1-3) or Fever Apixaban 2.5 mg 03/14/25 21:00 03/17/25 08:12 Apixaban 2.5 Mg Tablet PO 2.5 mg Q12HR GINO Administration Bisacodyl 10 mg 03/12/25 09:00 03/17/25 08:13 Bisacodyl 10 Mg Suppository RECTAL Not Given QAM GINO Dextrose 12.5 gm 03/06/25 16:19 03/09/25 13:11 Dextrose 50% 25 Gm/50 Ml Syringe IV PUSH 12.5 gm PRN PRN Administration Hypoglycemia Protocol Famotidine 20 mg 03/07/25 21:00 03/17/25 08:12 Famotidine 20 Mg/2 Ml Vial IV PUSH 20 mg Q12HR GINO Administration Glucagon 1 mg 03/06/25 16:19 Glucagon For Inj 1 Mg Vial IM PRN PRN Hypoglycemia Protocol Glucose 15 gm 03/06/25 16:19 Glucose Oral Gel 15 Gm Of Glucse In 37.5 Gm Tube PO PRN PRN Hypoglycemia Protocol Hydralazine HCl 10 mg 03/13/25 08:18 03/15/25 14:56 Hydralazine Hcl 20 Mg/Ml Vial IV PUSH 10 mg Q8H PRN Administration Blood Pressure - High Dextrose 1,000 mls @ 100 mls/hr 03/06/25 16:19 Dextrose 5% 1,000 Ml IVPB PRN PRN Hypoglycemia Protocol Ibuprofen 400 mg/ Sodium 104 mls @ 200 mls/hr 03/09/25 18:00 03/16/25 05:41 Chloride IVPB Infused Q6HR GINO Infusion Insulin Aspart 2 - 5 units 03/10/25 00:00 03/17/25 06:04 Insulin Aspart (*Bkc) 100 Units/Ml SUB-Q Not Given Q6HR [facility] Protocol Levothyroxine Sodium 44 mcg 03/08/25 06:30 03/17/25 05:29 Levothyroxine Sodium Inj 100 Mcg/5 Ml Vial IV PUSH 44 mcg DAILY@0630 [facility] Administration Lidocaine 1 patch 03/10/25 09:00 03/17/25 08:12 Lidocaine 5% Patch TRANSDERM 1 patch DAILY GINO Administration Lidocaine 1 patch 03/15/25 12:55 03/17/25 08:13 Lidocaine 5% Patch TRANSDERM 1 patch DAILY GINO Administration Naloxone HCl 0.1 mg 03/06/25 16:20 Naloxone Hcl 0.4 Mg/Ml Vial IV PUSH Q5MIN PRN Sedation Ondansetron HCl 4 mg 03/08/25 04:20 03/12/25 16:09 Ondansetron Inj 4 Mg/2 Ml Vial IV PUSH 4 mg Q6H PRN Administration Nausea And Vomiting Ondansetron HCl 4 mg 03/09/25 13:48 Ondansetron Inj 4 Mg/2 Ml Vial IV PUSH ONCE PRN Nausea Oxycodone/Acetaminophen 1 tab 03/13/25 14:26 03/17/25 05:30 Oxycodone/Acetaminophen (*Crx) 10-325 Mg Tablet PO 1 tab Q6H PRN Administration Pain (Scale Score 4-6) Simethicone 80 mg 03/15/25 14:29 03/15/25 20:56 Simethicone 80 Mg Tab.Chew PO 80 mg TID PRN Administration Abdominal Distention Sodium Chloride 10 ml 03/10/25 14:00 03/17/25 05:29 Central Line Flush IV PUSH 10 ml Q8HR GINO Administration Sodium Chloride 20 ml 03/10/25 06:56 Central Line Flush IV PUSH PRN PRN after blood draws Radiology Results: ITS Impressions Abdomen/Pelvis CT 03/06/25 14:15 IMPRESSION: 1. Dilated small bowel loops suggestive of partial versus complete obstruction. 2. Other appearances are unchanged from previous examination. Small Bowel X-Ray 03/07/25 17:39 IMPRESSION: 1. Slow progression of contrast through several loops of dilated small bowel in the central abdomen with no contrast in colon by 5 hours consistent with a small bowel obstruction. 2. Small to moderate-sized sliding-type hiatal hernia with gastroesophageal reflux. Chest X-Ray 03/09/25 16:41 IMPRESSION: Highly suggestive air under the right hemidiaphragm. Clinical correlation and repeat exam is advised. No acute cardiopulmonary pathology. Supporting lines as described above. Nurse Cherie was notified with the result of the patient at 4:45 PM on March 09, 2025 Abdomen X-Ray 03/09/25 17:41 IMPRESSION: Nasogastric tube presumably in good position and ready for immediate use. Labs Labs: Laboratory Results - last 24 hr 03/16/25 03/16/25 03/17/25 11:39 17:15 00:10 WBC RBC Hgb Hct MCV MCH MCHC RDW Plt Count MPV Sodium Potassium Chloride Carbon Dioxide Anion Gap BUN Creatinine Estim Creat Clear Calc Estimated GFR Glucose POC Capillary Glucose 100 103 115 H Calcium 03/17/25 03/17/25 05:32 08:02 WBC 8.0 RBC 2.97 L Hgb 9.6 L Hct 29.0 L MCV 97.6 MCH 32.3 MCHC 33.1 RDW 12.9 Plt Count 236 MPV 9.6 Sodium 133 L Potassium 3.7 Chloride 100 Carbon Dioxide 27 Anion Gap 6 BUN 14 Creatinine 0.74 Estim Creat Clear Calc Not Reportable Estimated GFR > 60 Glucose 93 POC Capillary Glucose 94 Calcium 8.5
--- NOTE | 2025-03-17 10:04 | P.DS_ITS ---
DS: Admitting Diagnosis Discharge Date 03/17/25 Admitting Diagnosis bowel obstruction DS: Discharge Diagnosis Discharge Diagnosis (1) SBO (small bowel obstruction): Code(s): K56.609 - Unspecified intestinal obstruction, unspecified as to partial versus complete obstruction Status: Acute Assessment and Plan: * CT abdomen/pelvis: * Dilated small bowel loops suggestive of partial versus complete obstruction. * Other appearances are unchanged from previous examination. * bowel rest, NPO. NG place in ED, confirmation via XR * IV fluids: 2L bolus, will hold on further fluids as the patient has history of heart failure with preserved EF * started on Zosyn on 03/06, completed * analgesics p.r.n. * Leukocytosis improving, * general surgery consulted * appreciate further recommendations * Water-soluble small-bowel follow-through series * IV fluid hydration while NPO * Surgical management not rule out at this time, continue to hold Eliquis * Maintain antibiotics, IV fluid hydration, hold Eliquis * Small-bowel follow-through series * no contrast moving to the colon at 5 hours c/w a small bowel obstruction * POD 2 Ex lap for SOB * Improved but still present abdominal pain * NG tube still in place * WBC down to 10.2 * Appreciate further recs from Gen Surg POD 3 Ex lap for SOB * - Patient up to chair working with therapy, c/o pain persisting although more chronic concerns than acute currently. * - Appreciate General surgery recs. POD 4 Ex lap for SOB * - Patient is working with therapy well, cooperative. * - No return of bowel function as of yet. * - NG is clamped. * - Appreciate General surgery recs. POD 5 Ex lap for SOB * - Patient is working with therapy, cooperative. * - No return of bowel function as of yet. * - NG is out, had a small amount of clear liquids. * - Surgery resumed oxycodone, increased hydromorphone. Will dc morphine. * - Appreciate General surgery recs. POD 6 Ex Lap for SOB * NG is out, BM last pm. * continues with oxycodone * will discontinue hydromorphone. * Surgery continues to monitor * POD 7 patient was seen and examined at bedside. she is feeling better. her pain is better. denies any N/V. tolerating diet. DC TPN . Dc IJ. possible discharge tomorrow to the rehab POD 8 Abdominal pain improving, abd pain under control. She is tolerating diet. Will discharge patient to rehab (2) Chronic hyponatremia: Code(s): E87.1 - Hypo-osmolality and hyponatremia Status: Chronic Assessment and Plan: * Na 133, previously 126 on 02/28 * history chronic hyponatremia, present since 2018 * monitor * improving (3) FARTUN (iron deficiency anemia): Qualifiers: Iron deficiency anemia type: chronic blood loss Qualified Code(s): D50.0 - Iron deficiency anemia secondary to blood loss (chronic) Code(s): D50.9 - Iron deficiency anemia, unspecified Status: Chronic Assessment and Plan: * Hgb 13.7on admission * Hx: FARTUN * transfuse if <7 * trend * (4) Type 2 diabetes mellitus: Qualifiers: Diabetes mellitus custodial insulin use: without custodial use Diabetes mellitus complication status: without complication Qualified Code(s): E11.9 - Type 2 diabetes mellitus without complications Code(s): E11.9 - Type 2 diabetes mellitus without complications Status: Resolved Assessment and Plan: * hypoglycemia protocol and POC blood glucose Q6H until no longer NPO * history of diabetes, resolved. No longer on medications. * A1C 5.5% on 10/08/2024 * Cont. POC accuchecks until tolerating diet. 03/16: - stable accuchecks (5) Atrial fibrillation: Qualifiers: Atrial fibrillation type: paroxysmal Qualified Code(s): I48.0 - Paroxysmal atrial fibrillation Code(s): I48.91 - Unspecified atrial fibrillation Status: Chronic Assessment and Plan: * history of paroxysmal AFib * EKG, initial, 03/06: sinus rhythm, rate 74, LVH, cannot rule out septal infarct age indeterminate, minimal Q-waves high lateral leads. No significant change compared to EKG done on 02/25. * continue home medications 03/15: - rate stable. resume apixaban per surgeon discretion. 03/16 on Eliquis. (6) Hypertension: Qualifiers: Hypertension type: primary hypertension Qualified Code(s): I10 - Essential (primary) hypertension Code(s): I10 - Essential (primary) hypertension Status: Chronic Assessment and Plan: * chronic, currently 153/57 * continue home medications * monitor * reviewed and stable * 03/12: Persistent stability. 03/13 - Add prn hydralazine until orals resume - trending higher on recent measurements. 03/14 - Cont. prn hydralazine until orals resume. 03/16: - stable today, continue to monitor Plan Diet: heart healthy GI Prophylaxis: Pantoprazole DVT Prophylaxis: SCDs, (eliquis ) Code Status: Full code DS: Summary Hospital Course Hospital Course: per HPI: 80 y/o F with PMH of chronic hyponatremia, CAD, DVT, anxiety/depression, HF with preserved EF, HLD, HTN, hypothyroidism, IBS, ELVIRA noncompliant with CPAP, paroxysmal AFib, rheumatoid arthritis, and diabetes presents here with nausea and vomiting. The patient presents here from home via EMS on 03/06 for further evaluation of back pain, nausea, vomiting, and diarrhea. She reports she had a normal bowel movement yesterday at 12:00 p.m. which was followed by multiple episodes of diarrhea. She has since developed nausea and vomiting and has only been able to tolerate her morning medications but was not able to tolerate water. Reports accompanying abdominal pain - described as lower abdominal pain, more so on left but has hx of hernia to same region. She reports accompanying back pain (bra down). She has a history of chronic back pain for which she takes oxycodone t.i.d. She denies accompanying fever, chills, chest pain, shortness a breath, or urinary symptoms. History abdominal surgery - small bowel resection, glenn cystectomy, appendectomy, total hysterectomy. History of bowel obstruction x1 and was transferred to [facility] for treatment due to a blood clot that occured at the same time. Initial VS at presentation: 98? F, HR 83, RR 20, 185/68, and 99% on RA. ED workup showed: WBC 18.4, sodium 127 (previously 126 on 02/28, history of chronic hyponatremia), creatinine 0.61 and GFR >60, glucose 166, lactic 2.5, lipase/AST/ALT within normal limits. CT of the abdomen/pelvis showed dilated small bowel loops suggestive of partial versus complete obstruction, other appearances are unchanged from previous examinations. EKG showed sinus rhythm, rate 74, LVH, cannot rule out septal infarct age indeterminate, minimal Q-waves high lateral leads. No significant change compared to EKG done on 02/25. 03/16/25 Patient underwent Exploratory laparotomy with abdominal adhesiolysis on 03/10/25. Has been on TPN. Pain gradually improving. Currently on p.o. pain medications. Will DC TPN. Possible discharge tomorrow to rehab if continue to improve. 03/17/25 Patient is off of TPN. Tolerating diet. Denies any chest pain, shortness of breath, nausea vomiting. Abdominal pain is under control. Surgery team on board. Will discharge patient to rehab Status at Discharge Overall status at discharge: patient is progressing back to baseline Time Spent with Patient Time attestation: Total time spent providing and/or coordinating discharge services: Time spent: Greater than 30 minutes Exam Narrative: GENERAL APPEARANCE: Appears to be in no acute distress. HEAD: normocephalic atraumatic EYES: Vision grossly intact. ENT: Hearing grossly intact, no nasal discharge NECK: Neck supple, trachea midline. CARDIAC: Normal S1/S2. Rhythm is regular. No murmurs, rubs, or gallops. No c yanosis or pallor. Extremities are warm and well perfused. LUNGS: Clear to auscultation without rales, rhonchi, wheezing or diminished breath sounds. Respirations even and unlabored. ABDOMEN: BS positive x 4 quadrants. Soft, nondistended. Midline abdominal incision well approximated.. MSK:fair strength in all extremities. PERIPHERAL VASCULAR: Normal perfusion,No edema. NEURO: Follows commands. No focal deficits. SKIN: Rodey without lesions or eruptions. Right IJ CVD dressing c/d/i. PSYCH: Stable, no paranoia or delusional thinking. Const: General: no acute distress and uncomfortable Other: , female, elderly, diffuse discomfort HENMT: Face/Nose/Sinus: Normal nares present Mouth: Yes moist mucous membranes Other: NG in place to right nare Eyes: General: appearance normal, both eyes and all related structures Sclera: sclerae normal Pupils: Equal, round and reactive pupils present EOM: EOMs intact bilaterally Resp: Effort & Inspection: normal respiratory effort Auscultation: clear to auscultation bilaterally Cardio: Rate: regular rate Rhythm: regular rhythm Other: S1-S2 present without murmur, rub, ectopy GI: Other: Saray bowel sounds in all quadrants, abdomen soft Skin: General skin exam: normal color and no rashes or lesions noted Wounds: no wounds Neuro: Cranial nerves: Yes Equal, round and reactive pupils present Speech: normal speech Motor exam (neuro): 5/5 motor strength present throughout Sensory Exam: normal sensation Other: A&O x4 Extrem: General: normal to inspection Psych: Mental Status: mental status grossly normal Affect: Anxious affect present Other: Patient tearful, restless, fair insight and judgment. DS: Data Data Completed and Pending Completed studies during hospitalization: Pending at discharge 03/09/25 14:56 Surgical [PTH] Routine Labs on day of discharge: Labs from last 24 hours 03/17/25 03/17/25 03/17/25 08:02 05:32 00:10 WBC 8.0 RBC 2.97 L Hgb 9.6 L Hct 29.0 L MCV 97.6 MCH 32.3 MCHC 33.1 RDW 12.9 Plt Count 236 MPV 9.6 Sodium 133 L Potassium 3.7 Chloride 100 Carbon Dioxide 27 Anion Gap 6 BUN 14 Creatinine 0.74 Estim Creat Clear Calc Not Reportable Estimated GFR > 60 Glucose 93 POC Capillary Glucose 94 115 H Calcium 8.5 03/16/25 03/16/25 17:15 11:39 WBC RBC Hgb Hct MCV MCH MCHC RDW Plt Count MPV Sodium Potassium Chloride Carbon Dioxide Anion Gap BUN Creatinine Estim Creat Clear Calc Estimated GFR Glucose POC Capillary Glucose 103 100 Calcium Discharge Plan Discharge Attending physician on discharge: Santo Dunaway Consulting providers: Quirino Harley; Rosendo Moore Discharging Clinician: Santo Dunaway Anticipated Discharge Date/Time: 03/17/25 10:10 Patient Disposition: [facility] Activity: as tolerated Diet: as tolerated and heart healthy Discharge Instructions: * follow-up with Dr. Moore in our office after she is discharged from [facility]. * Continue to wear the abdominal binder * Check your blood pressure and heart rate regularly and report to PCP * Follow with PCP in 1 week * Continue with MiraLax as needed Patient Instructions: Antibiotic Form, Apixaban (By mouth), Safe Use of Anticoagulants (GEN), Blood Thinners (GEN) Patient Language: Greenlandic Stand Alone Forms: General Discharge Information Follow-up/Referrals: Neli Moura DO [Primary Care Provider] - 1 Week Rosendo Moore MD [Physician] - Call for Appointment Discharge Medications: Continued atorvastatin 40 mg tablet 40 mg PO QHS Qty: 90 3RF magnesium oxide 400 mg (241.3 mg magnesium) tablet 400 mg PO QAM Qty: 90 1RF folic acid 1 mg Tablet 3 mg PO DAILY ezetimibe 10 mg Tablet 10 mg PO QHS albuterol sulfate 90 mcg/actuation HFA aerosol inhaler 2 puff inhalation QID PRN (Reason: Shortness Of Breath Or Wheezing) oxycodone-acetaminophen 10-325 mg tablet 1 tablet PO Q6H PRN (Reason: Pain (Scale Score 4-6)) Qty: 1 0RF pantoprazole 40 mg Tablet,Delayed Release (Dr/Ec) 40 mg PO DAILY Qty: 30 0RF amiloride 5 mg tablet 5 mg PO QAM fluticasone propionate [Flonase Allergy Relief] 50 mcg/actuation spray,suspension 1 spray intranasal BID PRN (Reason: allergy symptoms) Rx Instructions: administer into each nostril buspirone 10 mg tablet 10 mg PO QAM AND QHS Rx Instructions: 10 mg orally ferrous sulfate 325 mg (65 mg iron) Tablet,Delayed Release (Dr/Ec) 325 mg PO QHS ondansetron 4 mg tablet,disintegrating 4 mg PO Q6H PRN (Reason: nausea and vomiting) simethicone 80 mg Tablet,Chewable 160 mg PO QID PRN (Reason: gas) sodium chloride 1,000 mg tablet,soluble 1,000 mg PO TID meclizine 25 mg Tablet 25 mg PO BID PRN (Reason: Vertigo) Qty: 60 1RF Eliquis 2.5 mg Tablet 2.5 mg PO Q12HR Qty: 60 1RF polyethylene glycol 3350 [Miralax] 17 gram Powder In Packet 17 g PO QAM PRN (Reason: Constipation) Qty: 30 0RF acetaminophen 500 mg capsule 1,000 mg PO Q6H PRN (Reason: pain) Qty: 30 0RF guanfacine 1 mg tablet 1 mg PO HS ProAir RespiClick 90 mcg/actuation aerosol powdr breath activated 2 inh INHALATION Q6H PRN (Reason: shortness of breath or wheezing) bisacodyl 5 mg tablet,delayed release (DR/EC) 5 mg PO DAILY levothyroxine 88 mcg tablet 88 mcg PO DAILY nitroglycerin 0.4 mg tablet, sublingual 0.4 mg sublingual PRN montelukast 10 mg tablet 10 mg PO DAILY aspirin [Adult Low Dose Aspirin] 81 mg tablet,delayed release (DR/EC) 81 mg PO DAILY cyanocobalamin (vitamin B-12) [Vitamin B-12] 1,000 mcg tablet 1,000 mcg PO QAM Qty: 90 1RF Linzess 290 mcg capsule 290 mcg PO QAM Qty: 90 3RF Held hydralazine 25 mg tablet 50 mg PO TID Hold Instructions: Resume on 03/19/25. hold if BP soft amlodipine 5 mg tablet 5 mg PO DAILY Hold Instructions: Resume on 03/19/25. hold if Bp soft losartan 100 mg tablet 100 mg PO DAILY Qty: 90 1RF Hold Instructions: Resume on 03/19/25. hold if BP soft. please discuss with PCP before resuming Discontinued nitrofurantoin monohyd/m-cryst 100 mg capsule 100 mg PO BID Other Ambulatory Orders: Basic Metabolic Panel (Routine) Timeframe: 2 Days Location: Determined by Patient Ordered By: Santo Dunaway Date of admission: 03/06/25 16:09 Primary Care Provider: Neli Moura Admitting Provider: Wily Navarro Attending physician on admission: Santo Dunaway Condition: Stable Quality VTE Prophylaxis VTE prophylaxis: mechanical ordered and pharmacologic ordered
[2025-03-17 14:00] VITALS: BP 137/60; PULSE 85; RESP 16; TEMP 36.6; O2SAT 100
[2025-03-17] MEDS: MAGNESIUM HYDROXIDE SUSP 30 ML UDC PO (15:52)
== END 2025-03-17 18:10 | DRG 336 ==
LOC: ANHED 15:05 → ANH3MED 16:38
PROVIDERS: Nurse Practitioner Family; Physician Assistant; Student in an Organized Health Care Education/Training Program; Surgery; Admitting Provider General Practice; Emergency Provider Emergency Medicine; PCP Family Medicine; Visit Provider Internal Medicine
PROC: 0DN80ZZ Release Small Intestine, Open Approach (ICD-10-PCS; CPT 49000; principal; 2025-03-09 14:00)
DX: K56.51 Intestinal adhesions [bands], with partial obstruction (principal); E87.1 Hypo-osmolality and hyponatremia; I50.32 Chronic diastolic (congestive) heart failure; D50.9 Iron deficiency anemia, unspecified; E78.5 Hyperlipidemia, unspecified; E11.9 Type 2 diabetes mellitus without complications; E03.9 Hypothyroidism, unspecified; F32.A Depression, unspecified; F41.9 Anxiety disorder, unspecified; G89.29 Other chronic pain; G47.33 Obstructive sleep apnea (adult) (pediatric); I11.0 Hypertensive heart disease with heart failure; I48.0 Paroxysmal atrial fibrillation; I25.10 Atherosclerotic heart disease of native coronary artery without angina pectoris; K58.9 Irritable bowel syndrome, unspecified; M54.9 Dorsalgia, unspecified; M06.9 Rheumatoid arthritis, unspecified; R79.89 Other specified abnormal findings of blood chemistry; Z79.01 Long term (current) use of anticoagulants; Z79.82 Long term (current) use of aspirin; Z86.718 Personal history of other venous thrombosis and embolism; Z99.89 Dependence on other enabling machines and devices; Z91.199 Patient's noncompliance with other medical treatment and regimen due to unspecified reason; Z90.49 Acquired absence of other specified parts of digestive tract; Z95.5 Presence of coronary angioplasty implant and graft; Z79.891 Long term (current) use of opiate analgesic
CPT/HCPCS: 36415; 74177; 74250; 80048; 80053; 81003; 82948; 83605; 83690; 83735; 84100; 84145; 84466; 84478; 85025; 85027; 85610; 85730; 86850; 86900; 86901; 88305; 93005; 96361; 96365; 96375; 97110; 97116; 97162; 97166; 97530; 97535; 99285; A9270; J0360; J0650; J1100; J1171; J1650; J1741; J1815; J2004; J2212; J2270; J2405; J2543; J2704; J2765; J3010; J3360; J3475; J3480; J7030; J7040; J7120; Q9967